=== PATIENT | male | born 1995 | race Two or more races ===

== ENCOUNTER 2016-08-30 08:14 | Emergency (ER) | payer MEDICAID ==
[~2016-08-30] VITALS: Ht 167.6 cm; Wt 90.7 kg
[~2016-08-30 08:14] MED LIST: ADVAIR HFA 115-12 GM INH; ADVAIR HFA 230-12 GM INH; AUGMENTIN 875-1 EAC1 ORAL; DILAUDID4 MG ORAL; DIPHENHYDR IVP; DUONEB 0.5-3(2.53 ML HHN; FOLIC ACID1 MG ORAL; GABAPENTIN800 MG ORAL; HEPARIN SO5000 UNIT2 SUBQ; HYDREA500 MG PO; HYDROMORPHONE HC4 M1 PO; IBUPROFEN600 MG ORAL; LORAZEPAM2 MG/1 M1 IVP; OXYCODONE HCL10 MG ORAL; OXYCONTIN20 MG ORAL; POLYETHYLENE GL17 GM ORAL; PROMETH-CODEIN 65 ML PO; VANCOMYCIN1 GM/2502 IVPB; VITAMIN D1000 UNI1 ORAL; XOPENEX1.25 MG/3 HHN; ZOFRAN 4 MG4 MG/2 ML IV; ZOLPIDEM TARTRAT5 MG ORAL
[2016-08-30 08:15] VITALS: BP 140/80
[2016-08-30 10:00] VITALS: BP 135/79
--- NOTE | 2016-09-03 16:16 | Emergency Room Report ---
History of Present Illness General Chief Complaint: Pain Source: Patient Present Illness HPI Patient presents with complaints of bilateral knee pain He states that his sickle cell crisis usually presents like this Patient seen by a Hemoccult she has pain management However he was unable to fill his medication Denies any chest pain or shortness of breath denies any back pain Had some mild diffuse myalgia Denies any photophobia or fevers denies any vomiting or diarrhea pain is 8/10 as noted above Allergies: Coded Allergies: CEFTRIAXONE (Verified Allergy, Unknown, 04/20/16) Uncoded Allergies: CONTRAST (Adverse Reaction, Severe, Rash, 06/23/16) RADIOCONTRAST - RASH, ITCHING Patient History Past Medical History: see triage record Pertinent Family History: none Reviewed Nursing Documentation: PMH: Agreed, PSxH: Agreed Nursing Documentation-PMH Hx Asthma: Yes Hx Cancer: No Hx Gastrointestinal Problems: Yes Review of Systems All Other Systems: negative except mentioned in HPI Physical Exam Vital Signs Date Time Temp Pulse Resp B/P Pulse Ox O2 Delivery O2 Flow Rate FiO2 08/30/16 08:09 99.5 69 16 148/78 98 Room Air Sp02 EP Interpretation: reviewed, normal General Appearance: no apparent distress Head: normocephalic, atraumatic Eyes: bilateral eye EOMI, bilateral eye PERRL ENT: hearing 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, normal pharynx, TMs + canals normal, uvula midline Neck: full range of motion, supple, no meningismus, no bony tend Respiratory: lungs clear, normal breath sounds, no rhonchi, no respiratory distress, no retraction, no accessory muscle use Cardiovascular #1: normal peripheral pulses, regular rate, rhythm, no edema, no gallop, no JVD, no murmur Gastrointestinal: normal bowel sounds, non tender, soft, no mass, no organomegaly, non-distended, no guarding, no hernia, no pulsatile mass, no rebound Genitourinary: no CVA tenderness Musculoskeletal: normal inspection 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, responsive, bulb weeder III-XII nml as tested, motor strength/ tone normal, sensory intact Psychiatric: mood/affect normal Skin: normal color, no rash, warm/dry, palpation normal Lymphatic: normal inspection, no adenopathy Medical Decision Making Diagnostic Impression: Primary Impression: Sickle cell disease ER Course Patient has had previous sickle cell crisis at this time however he states that he recently had IV fluids and pain medication He feels that if he was able to take his medications he would be better He has close followup with his Hemoccult just Therefore at this time further intensive workup was aborted and the patient was given IM injection of pain medication Did significantly better and able to have close outpatient followup Last Vital Signs Date Time Temp Pulse Resp B/P Pulse Ox O2 Delivery O2 Flow Rate FiO2 08/30/16 10:00 98.2 90 16 135/79 100 Room Air Status: improved Disposition: HOME, SELF-CARE Condition: Improved Referrals: DAVID TAI (PCP) Patient Instructions: Sickle Cell Anemia, Adult Additional Instructions: Patient is provided with the discharge instructions notified to follow up with primary doctor in the next 2-3 days otherwise return to the er with any worsening symptoms. BERNIE VIRGEN D.O. Sep 03, 2016 16:16
== END 2016-08-30 10:00 | disposition home or self-care (01) ==
LOC: EDBD 08:14 → EMR 08:36
DX: D57.1 Sickle-cell disease without crisis (principal); M25.561 Pain in right knee; Z87.19 Personal history of other diseases of the digestive system; Z87.09 Personal history of other diseases of the respiratory system; Z91.041 Radiographic dye allergy status
CPT/HCPCS: 99283; J1170

== ENCOUNTER 2017-01-06 15:19 | Inpatient (IN) | payer MEDICAID ==
[~2017-01-06] VITALS: Ht 167.6 cm; Wt 109.3 kg
[2017-01-06] MEDS ORDERED: DiphenhydrAMINE 50mg/ml Inj IVP ONE ×3 (16:00→18:15)
[2017-01-06] MEDS ORDERED: HYDROmorphone 1mg/ml Carpuject IVP ONE ×2 (16:00→17:45)
[2017-01-06 16:25] VITALS: BP 122/64
[2017-01-06 16:38] LABS: MEAN CORPUSCULAR HEMOGLOBIN 26.7 PG (27.0-31.0); MEAN CORPUSCULAR VOLUME 79 FL (80-99); MEAN PLATELET VOLUME 6.5 FL (6.5-10.1); PLATELET COUNT 354 K/UL (150-450); RED BLOOD COUNT 3.79 M/UL (4.70-6.10); RED CELL DISTRIBUTION WIDTH 17.3 % (11.6-14.8)
--- NOTE | 2017-01-06 16:45 | Diagnostic Imaging Report ---
Indication: Chest Technique: One view of the chest Comparison: 05/30/2016 Findings: Previously demonstrated PICC is no longer present. Left hemidiaphragm is elevated. The heart is upper limits of normal in size. There is some crowding of vascular markings in the left perihilar and infrahilar region. No definite acute infiltrates or effusions. The bones are unremarkable. Impression: No definite acute process
[2017-01-06 16:50] LABS: TROPONIN I < 0.30 ng/mL (<=0.30)
[2017-01-06 16:52] LABS: INR 1.1 (0.9-1.1); PROTHROMBIN TIME 11.2 SEC (9.30-11.50)
[2017-01-06 16:53] LABS: WHITE BLOOD COUNT 24.1 K/UL (4.8-10.8)
[2017-01-06 16:54] LABS: ALANINE AMINOTRANSFERASE 48 U/L (3-41); ALBUMIN/GLOBULIN RATIO 1.4 (1.0-2.7); ANION GAP 18 (5-15); ASPARTATE AMINO TRANSFERASE 55 U/L (5-40); CALCIUM 9.8 mg/dL (8.6-10.2); CARBON DIOXIDE 26 mEQ/L (20-30); CHLORIDE 91 mEQ/L (98-107); CREATININE 0.6 mg/dL (0.7-1.2); GLOMERULAR FILTRATION RATE > 60 mL/min (>60); HEMOLYSIS 59; POTASSIUM 4.9 mEQ/L (3.4-4.9); SODIUM 135 mEQ/L (135-145); TOTAL PROTEIN 8.2 g/dL (6.6-8.7)
[2017-01-06 17:04] LABS: CKMB < 1.5 ng/mL (< 6.7)
[2017-01-06 17:15] LABS: BILIRUBIN,DIRECT 0.8 mg/dL (0.1-0.3)
[2017-01-06] MEDS ORDERED: Heparin 25,000u/D5W 500ml 500 ML IV SCH (17:30)
[2017-01-06] MEDS ORDERED: Vancomycin 1.5gm/D5W 300ml 325 ML IVPB ONE (17:30)
[2017-01-06] MEDS ORDERED: PredniSONE 20mg tab ORAL ONE (17:30)
[2017-01-06 17:33] LABS: BASOPHILS % (MANUAL) 1 % (0-2); EOSINOPHILS % (MANUAL) 2 % (0-3); LYMPHOCYTES % (MANUAL) 11 % (20-45); NEUTROPHILS % (MANUAL) 80 % (45-75); NUCLEATED RED BLOOD CELLS 8 /100 WBC; TOTAL CELLS COUNTED 100
[2017-01-06 17:34] LABS: ANISOCYTOSIS 2+; BAND NEUTROPHILS % (MANUAL) 0 % (0-8); HYPOCHROMASIA 2+; PLATELET ESTIMATE ADEQUATE; PLATELET MORPHOLOGY NORMAL
[2017-01-06 17:35] LABS: TARGET CELLS 2+
[2017-01-06] MEDS ORDERED: HYDROmorphone 4mg tab ORAL PRN (17:45)
[2017-01-06] MEDS ORDERED: Mylanta II UD 30ml ORAL PRN ×2 (17:45)
[2017-01-06] MEDS ORDERED: Morphine Sulfate 4mg/ml Inj IVP PRN (17:45)
[2017-01-06] MEDS ORDERED: Zolpidem 5mg tab ORAL PRN ×2 (17:45)
[2017-01-06] MEDS ORDERED: LORazepam Inj 2mg/ml 1ml IV PRN ×2 (17:45)
[2017-01-06] MEDS ORDERED: Miralax 17gm pkt ORAL PRN ×2 (17:45)
[2017-01-06] MEDS ORDERED: Morphine Sulfate 2mg/ml Inj IVP PRN (17:45)
[2017-01-06 17:53] LABS: RETICULOCYTE COUNT 10.6 % (0.0-2.0)
[2017-01-06 17:54] LABS: APPEARANCE,URINE CLEAR; KETONES,URINE NEGATIVE (NEGATIVE); LEUKOCYTE ESTERASE ,URINE 1+ (NEGATIVE); NITRITE,URINE NEGATIVE (NEGATIVE); PH,URINE 6.5 (4.5-8.0); PROTEIN,URINE 1+ (NEGATIVE); UROBILINOGEN,URINE 1 MG/DL (0.0-1.0)
[2017-01-06 18:03] LABS: RBC,URINE 0-2 /HPF (0 - 0)
[2017-01-06 18:04] LABS: AMORPHOUS SEDIMENT,UR FEW /LPF; BACTERIA,URINE FEW /HPF; WBC,URINE 0-2 /HPF (0 - 0)
--- NOTE | 2017-01-06 18:14 | Emergency Room Report ---
History of Present Illness General Chief Complaint: General Complaint Source: Patient, Medical Record Present Illness HPI 21-year-old male presents ED complaining of chest pain since yesterday. Pain is sharp, across the entire chest, 10 out of 10, nonradiating. No pain with deep breaths. Denies fevers or chills. Denies cough. Patient notes history of sickle cell disease. States he has been admitted in the past for acute chest syndrome. Dr Davenport asked that patient come to ER for further evaluation. No other aggravating or relieving factors. Denies any other associated symptom Allergies: Coded Allergies: CEFTRIAXONE (Verified Allergy, Unknown, 04/20/16) Uncoded Allergies: CONTRAST (Adverse Reaction, Severe, Rash, 06/23/16) RADIOCONTRAST - RASH, ITCHING Patient History Past Medical History: asthma, other - sickle cell Pertinent Family History: none Social History: Denies: alcohol use, drug use, smoking Immunizations: UTD Reviewed Nursing Documentation: PMH: Agreed, PSxH: Agreed Nursing Documentation-PMH Past Medical History: No History, Except For Hx Asthma: Yes Hx Cancer: No Hx Gastrointestinal Problems: Yes Review of Systems All Other Systems: negative except mentioned in HPI Physical Exam Vital Signs Date Time Temp Pulse Resp B/P Pulse Ox O2 Delivery O2 Flow Rate FiO2 01/06/17 15:29 99.7 103 16 111/71 95 Room Air Sp02 EP Interpretation: reviewed, normal General Appearance: no apparent distress, alert, GCS 15, non-toxic, obese Head: normocephalic, atraumatic Eyes: bilateral eye PERRL, bilateral eye normal inspection ENT: hearing 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, normal pharynx, no angioedema, normal voice Neck: full range of motion, supple/symm/no masses Respiratory: chest non-tender, lungs clear, normal breath sounds, speaking full sentences Cardiovascular #1: regular rate, rhythm, no edema Cardiovascular #2: 2+ carotid (R), 2+ carotid (L), 2+ radial (R), 2+ radial (L) , 2+ dorsalis pedis (R), 2+ dorsalis pedis (L) Gastrointestinal: normal bowel sounds, non tender, soft, non-distended, no guarding, no rebound Rectal: deferred Genitourinary: normal inspection, no CVA tenderness Musculoskeletal: back normal, gait/station normal, normal range of motion, non- tender Neurologic: alert, oriented x3, responsive, motor strength/tone normal, sensory intact, speech normal Psychiatric: judgement/insight normal, memory normal, mood/affect normal, no suicidal/homicidal ideation Reflexes: 3+ bicep (R), 3+ bicep (L), 3+ tricep (R), 3+ tricep (L), 3+ knee (R) , 3+ knee (L) Skin: normal color, no rash, warm/dry, well hydrated Lymphatic: no adenopathy Medical Decision Making Diagnostic Impression: Primary Impression: Acute chest syndrome Additional Impression: Sickle cell disease Qualified Codes: D57.00 - Hb-SS disease with crisis, unspecified ER Course Hospital Course 21-year-old male presents to ED with chest pain. History of sickle cell Differential diagnoses include: NH/unstable angina, sickle cell crisis, sepsis, UTI, pneumonia Clinical course Patient placed on stretcher. 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 After initial history and physical I ordered labs, EKG, chest x-ray, pain medications labs reviewed- WBC > 22, Hb/Hct stable, electrolyes ok, trop negative EKG - NSR, no acute changes Chest x-ray- no acute process Doppler ultrasound of bilateral LE is negative for DVT VQ scan unavailable at this time of day CTA chest ordered. However patient has contrast allergy. Per radiology protocol patient will require 19 hours of premedication before receiving CTA Patient given prednisone in ED. Given heparin here. Will be treated as presumed PE until CTA is performed Abx given. On reassessment pain is controlled Dr. Davenport is familar with this patient; asked that we admit to Dr Caicedo Case discussed with Dr. Caicedo and he agreed to accept the patient to his service for further care and support I. I feel this is a highly complex case requiring extensive working including EKG/Rhythm strip, Xray/CT/US, Blood/urine lab work, repeat exams while in ED, and administration of strong opiates/narcotics for pain control, admission to hospital or close patient follow up. Diagnosis - acute chest syndrome, sickle cell disease admitted to telemetry in serious condition Labs Test 01/06/17 16:00 01/06/17 17:33 White Blood Count 24.1 K/UL (4.8-10.8) Red Blood Count 3.79 M/UL (4.70-6.10) Hemoglobin 10.1 G/DL (14.2-18.0) Hematocrit 29.8 % (42.0-52.0) Mean Corpuscular Volume 79 FL (80-99) Mean Corpuscular Hemoglobin 26.7 PG (27.0-31.0) Mean Corpuscular Hemoglobin Concent 34.0 G/DL (32.0-36.0) Red Cell Distribution Width 17.3 % (11.6-14.8) Platelet Count 354 K/UL (150-450) Mean Platelet Volume 6.5 FL (6.5-10.1) Neutrophils (%) (Auto) % (45.0-75.0) Lymphocytes (%) (Auto) % (20.0-45.0) Monocytes (%) (Auto) % (1.0-10.0) Eosinophils (%) (Auto) % (0.0-3.0) Basophils (%) (Auto) % (0.0-2.0) Differential Total Cells Counted 100 Neutrophils % (Manual) 80 % (45-75) Lymphocytes % (Manual) 11 % (20-45) Monocytes % (Manual) 6 % (1-10) Eosinophils % (Manual) 2 % (0-3) Basophils % (Manual) 1 % (0-2) Band Neutrophils 0 % (0-8) Nucleated Red Blood Cells 8 /100 WBC Platelet Estimate Adequate Platelet Morphology Normal Hypochromasia 2+ Anisocytosis 2+ Target Cells 2+ Reticulocyte Count 10.6 % (0.0-2.0) Prothrombin Time 11.2 SEC (9.30-11.50) Prothromb Time International Ratio 1.1 (0.9-1.1) Activated Partial Thromboplast Time 30 SEC (23-33) Sodium Level 135 mEQ/L (135-145) Potassium Level 4.9 mEQ/L (3.4-4.9) Chloride Level 91 mEQ/L (98-107) Carbon Dioxide Level 26 mEQ/L (20-30) Anion Gap 18 (5-15) Blood Urea Nitrogen 7 mg/dL (7-23) Creatinine 0.6 mg/dL (0.7-1.2) Estimat Glomerular Filtration Rate > 60 mL/min (>60) Glucose Level 123 mg/dL (74-106) Lactic Acid Level 1.90 mmol/L (0.66-2.22) Calcium Level 9.8 mg/dL (8.6-10.2) Total Bilirubin 2.8 mg/dL (0.0-1.2) Direct Bilirubin 0.8 mg/dL (0.1-0.3) Aspartate Amino Transf (AST/SGOT) 55 U/L (5-40) Alanine Aminotransferase (ALT/SGPT) 48 U/L (3-41) Alkaline Phosphatase 110 U/L (40-129) Total Creatine Kinase 39 U/L (38-174) Creatine Kinase MB < 1.5 ng/mL (< 6.7) Creatine Kinase MB Relative Index Troponin I < 0.30 ng/mL (<=0.30) Total Protein 8.2 g/dL (6.6-8.7) Albumin 4.8 g/dL (3.5-5.2) Globulin 3.4 g/dL Albumin/Globulin Ratio 1.4 (1.0-2.7) Urine Color Yellow Urine Appearance Clear Urine pH 6.5 (4.5-8.0) Urine Specific [place] 1.005 (1.005-1.035) Urine Protein 1+ (NEGATIVE) Urine Glucose (UA) Negative (NEGATIVE) Urine Ketones Negative (NEGATIVE) Urine Occult Blood Negative (NEGATIVE) Urine Nitrite Negative (NEGATIVE) Urine Bilirubin Negative (NEGATIVE) Urine Urobilinogen 1 MG/DL (0.0-1.0) Urine Leukocyte Esterase 1+ (NEGATIVE) Urine RBC 0-2 /HPF (0 - 0) Urine WBC 0-2 /HPF (0 - 0) Urine Squamous Epithelial Cells None /LPF (NONE/OCC) Urine Amorphous Sediment Few /LPF (NONE) Urine Bacteria Few /HPF (NONE) Urine Opiates Screen Positive (NEGATIVE) Urine Barbiturates Screen Negative (NEGATIVE) Phencyclidine (PCP) Screen Negative (NEGATIVE) Urine Amphetamines Screen Negative (NEGATIVE) Urine Benzodiazepines Screen Negative (NEGATIVE) Urine Cocaine Screen Negative (NEGATIVE) Urine Marijuana (THC) Screen Negative (NEGATIVE) EKG Diagnostic Results Rate: normal Rhythm: NSR ST Segments: no acute changes ASA given to the pt in ED: No Rhythm Strip Diag. Results EP Interpretation: yes Rhythm: NSR, no PVC's, no ectopy Chest X-Ray Diagnostic Results EP Interpretation: No Findings: no pneumothorax, no acute cardiopulmonary disease, other - increased vascular markings in L perihilar and infrahilar areas Number of Views: 1 CT/MRI/US Diagnostic Results CT/MRI/US Diagnostic Results : Imaging Test Ordered: Doppler US Impression negative for dvt in bilateral LEs Last Vital Signs Date Time Temp Pulse Resp B/P Pulse Ox O2 Delivery O2 Flow Rate FiO2 01/06/17 17:03 99.7 01/06/17 16:25 89 17 122/64 95 Room Air Status: improved Disposition: ADMITTED INPATIENT Condition: Serious Referrals: DAVID DAVENPORT (PCP) NALLELY ABDI M.D. Jan 06, 2017 18:14
[2017-01-06] MEDS ORDERED: Heparin 5000 units/ml inj IV ONE (18:15)
[2017-01-06 18:16] VITALS: BP 124/56
[2017-01-06 18:55] VITALS: BP 106/62
[2017-01-06 20:00] VITALS: BP 117/52
[2017-01-06] MEDS ORDERED: Heparin 5000 units/ml inj SUBQ SCH (21:00)
[2017-01-06] MEDS: Heparin 5000 units/ml inj SUBQ SCH (21:36)
[2017-01-06] MEDS: oxyCONTIN 20mg tab ORAL SCH (21:41)
[2017-01-07] VITALS: BP 119/69
[2017-01-07 04:00] VITALS: BP 124/59
[2017-01-07 07:07] LABS: MEAN CORPUSCULAR HEMOGLOBIN 24.8 PG (27.0-31.0); MEAN CORPUSCULAR HGB CONC 32.1 G/DL (32.0-36.0); MEAN CORPUSCULAR VOLUME 77 FL (80-99); PLATELET COUNT 352 K/UL (150-450); RED CELL DISTRIBUTION WIDTH 17.1 % (11.6-14.8); WHITE BLOOD COUNT 18.5 K/UL (4.8-10.8)
[2017-01-07 07:31] LABS: ALANINE AMINOTRANSFERASE 61 U/L (3-41); ALBUMIN/GLOBULIN RATIO 1.1 (1.0-2.7); ANION GAP 15 (5-15); ASPARTATE AMINO TRANSFERASE 45 U/L (5-40); CALCIUM 9.3 mg/dL (8.6-10.2); CARBON DIOXIDE 25 mEQ/L (20-30); CHLORIDE 97 mEQ/L (98-107); CREATININE 0.7 mg/dL (0.7-1.2); GLOMERULAR FILTRATION RATE > 60 mL/min (>60); HEMOLYSIS 2; LACTATE DEHYDROGENASE 236 U/L (135-230); POTASSIUM 4.2 mEQ/L (3.4-4.9); SODIUM 137 mEQ/L (135-145)
[2017-01-07 07:33] LABS: THYROID STIMULATING HORMONE 0.299 uIU/mL (0.300-4.500)
[2017-01-07 07:53] LABS: BILIRUBIN,DIRECT 0.4 mg/dL (0.1-0.3)
[2017-01-07 08:00] VITALS: BP 115/65
[2017-01-07] MEDS: oxyCONTIN 20mg tab ORAL SCH ×2 (08:41→21:23)
[2017-01-07] MEDS: Heparin 5000 units/ml inj SUBQ SCH ×2 (08:44→21:25)
[2017-01-07 08:54] LABS: BAND NEUTROPHILS % (MANUAL) 2 % (0-8); BASOPHILS % (MANUAL) 0 % (0-2); EOSINOPHILS % (MANUAL) 0 % (0-3); LYMPHOCYTES % (MANUAL) 18 % (20-45); NEUTROPHILS % (MANUAL) 71 % (45-75); PLATELET ESTIMATE ADEQUATE; TOTAL CELLS COUNTED 100
[2017-01-07 08:55] LABS: TARGET CELLS 3+
[2017-01-07 08:56] LABS: ANISOCYTOSIS 2+; OVALOCYTES 2+; PLATELET MORPHOLOGY NORMAL; POIKILOCYTOSIS 3+
[2017-01-07] MEDS ORDERED: Hydroxyurea 500mg cap ORAL SCH (09:00)
--- NOTE | 2017-01-07 09:04 | General Progress Note ---
Assessment/Plan Assessment/Plan (1) Sickle Cell disease (2) Sickle Cell Crisis (3) Intractable pain Pt will be continued on Oxycntin and Dilaudid Pt was d/w Dr. Tucker and he concurred. Thank you for the courtesy of this consultation. Subjective Date patient seen: Jan 07, 2017 Time patient seen: 08:00 - am Constitutional: Reports: weakness, Denies: chills, diaphoresis, fever, malaise HEENT: Denies: blurred vision, double vision, ear discharge, ear pain, eye pain , mouth pain, mouth swelling, nose congestion, nose pain, tearing, throat pain, throat swelling Cardiovascular: Reports: chest pain, Denies: edema, irregular heart rate, lightheadedness, palpitations, syncope Respiratory: Reports: shortness of breath, Denies: SOB at rest, SOB with excertion, cough, orthopnea, sputum, stridor, wheezing Gastrointestinal/Abdominal: Denies: abdomen distended, abdominal pain, black stools, blood in stool, constipated, diarrhea, difficulty swallowing, nausea, poor appetite, poor fluid intake, rectal bleeding, tarry stools, vomiting Genitourinary: Denies: burning, discharge, flank pain, frequency, hematuria, incontinence, pain, urgency Neurologic/Psychiatric: Denies: anxiety, depressed, emotional problems, headache, numbness, paresthesia, pre-existing deficit, seizure, tingling, tremors, weakness Endocrine: Denies: excessive sweating, flushing, increased hunger, increased thirst, increased urine, intolerance to cold, intolerance to heat, unexplained weight gain, unexplained weight loss Hematologic/Lymphatic: Denies: easy bleeding, easy bruising Allergies: Coded Allergies: CEFTRIAXONE (Verified Allergy, Unknown, 04/20/16) Uncoded Allergies: CONTRAST (Adverse Reaction, Severe, Rash, 06/23/16) RADIOCONTRAST - RASH, ITCHING Subjective Patient is a known patient from prior admission admitted under the care of Dr. Caicedo for sickle cell crisis. He sees Dr. Davenport as out pt. Pt was started on Oxycontin 20mg BID, Dilaudid 2-3mg IVP Q4H for Mod to severe pain and dilaudid 4mg tabs Q4H for severe breakthrough pain, Pain as per pt has been tolerated on current regimen. Objective Last 24 Hour Vital Signs Date Time Temp Pulse Resp B/P Pulse Ox O2 Delivery O2 Flow Rate FiO2 01/07/17 04:00 67 01/07/17 04:00 98.6 93 18 124/59 Nasal Cannula 2.0 01/07/17 00:00 68 01/07/17 00:00 99.3 58 19 119/69 Room Air 01/06/17 20:30 99.9 01/06/17 20:00 101.7 79 19 117/52 95 Room Air 01/06/17 20:00 89 01/06/17 19:46 101.7 01/06/17 18:55 102.4 106 17 106/62 95 Room Air 01/06/17 18:26 99.1 105 17 124/56 95 Room Air 01/06/17 18:24 99.1 01/06/17 18:16 99.1 105 17 124/56 95 Room Air 01/06/17 17:03 99.7 01/06/17 16:25 99.7 89 17 122/64 95 Room Air 01/06/17 15:29 99.7 103 16 111/71 95 Room Air Intake and Output 01/06/17 01/07/17 19:00 07:00 Intake Total 120 ml 775 ml Balance 120 ml 775 ml Intake Oral 120 ml 100 ml IV Total 675 ml # Voids 2 # Bowel Movements 2 Laboratory Tests 01/06/17 16:00: White Blood Count 24.1*H, Red Blood Count 3.79L, Hemoglobin 10.1L, Hematocrit 29.8L, Mean Corpuscular Volume 79L, Mean Corpuscular Hemoglobin 26.7L, Mean Corpuscular Hemoglobin Concent 34.0, Red Cell Distribution Width 17.3H, Platelet Count 354, Mean Platelet Volume 6.5, Neutrophils (%) (Auto) , Lymphocytes (%) (Auto) , Monocytes (%) (Auto) , Eosinophils (%) (Auto) , Basophils (%) (Auto) , Differential Total Cells Counted 100, Neutrophils % ( Manual) 80H, Lymphocytes % (Manual) 11L, Monocytes % (Manual) 6, Eosinophils % ( Manual) 2, Basophils % (Manual) 1, Band Neutrophils 0, Nucleated Red Blood Cells 8, Platelet Estimate Adequate, Platelet Morphology Normal, Hypochromasia 2 +, Anisocytosis 2+, Target Cells 2+, Reticulocyte Count 10.6H, Prothrombin Time 11.2, Prothromb Time International Ratio 1.1, Activated Partial Thromboplast Time 30, Sodium Level 135, Potassium Level 4.9, Chloride Level 91L, Carbon Dioxide Level 26, Anion Gap 18H, Blood Urea Nitrogen 7, Creatinine 0.6L, Estimat Glomerular Filtration Rate > 60, Glucose Level 123H, Lactic Acid Level 1.90, Calcium Level 9.8, Total Bilirubin 2.8H, Direct Bilirubin 0.8H, Aspartate Amino Transf (AST/SGOT) 55H, Alanine Aminotransferase (ALT/SGPT) 48H, Alkaline Phosphatase 110, Lactate Dehydrogenase [Pending], Total Creatine Kinase 39, Creatine Kinase MB < 1.5, Creatine Kinase MB Relative Index , Troponin I < 0.30 , Total Protein 8.2, Albumin 4.8, Globulin 3.4, Albumin/Globulin Ratio 1.4 01/06/17 17:33: Urine Color Yellow, Urine Appearance Clear, Urine pH 6.5, Urine Specific [place] 1.005, Urine Protein 1+H, Urine Glucose (UA) Negative, Urine Ketones Negative, Urine Occult Blood Negative, Urine Nitrite Negative, Urine Bilirubin Negative, Urine Urobilinogen 1H, Urine Leukocyte Esterase 1+H, Urine RBC 0-2H, Urine WBC 0-2, Urine Squamous Epithelial Cells None, Urine Amorphous Sediment FewH, Urine Bacteria Few, Urine Opiates Screen PositiveH, Urine Barbiturates Screen Negative, Phencyclidine (PCP) Screen Negative, Urine Amphetamines Screen Negative, Urine Benzodiazepines Screen Negative, Urine Cocaine Screen Negative, Urine Marijuana (THC) Screen Negative 01/07/17 05:55: White Blood Count 18.5H, Red Blood Count 3.50L, Hemoglobin 8.7L, Hematocrit 27.0L, Mean Corpuscular Volume 77L, Mean Corpuscular Hemoglobin 24.8L, Mean Corpuscular Hemoglobin Concent 32.1, Red Cell Distribution Width 17.1H, Platelet Count 352, Mean Platelet Volume 8.0, Neutrophils (%) (Auto) , Lymphocytes (%) (Auto) , Monocytes (%) (Auto) , Eosinophils (%) (Auto) , Basophils (%) (Auto) , Differential Total Cells Counted 100, Neutrophils % ( Manual) 71, Lymphocytes % (Manual) 18L, Monocytes % (Manual) 9, Eosinophils % ( Manual) 0, Basophils % (Manual) 0, Band Neutrophils 2, Platelet Estimate Adequate, Platelet Morphology Normal, Anisocytosis 2+, Target Cells 3+, Sodium Level 137, Potassium Level 4.2, Chloride Level 97L, Carbon Dioxide Level 25, Anion Gap 15, Blood Urea Nitrogen 8, Creatinine 0.7, Estimat Glomerular Filtration Rate > 60, Glucose Level 155H, Calcium Level 9.3, Total Bilirubin 1.4H, Direct Bilirubin 0.4H, Aspartate Amino Transf (AST/SGOT) 45H, Alanine Aminotransferase (ALT/SGPT) 61H, Alkaline Phosphatase 118, Lactate Dehydrogenase 236H, Total Protein 8.0, Albumin 4.3, Globulin 3.7, Albumin/ Globulin Ratio 1.1, Poikilocytosis 3+, Ovalocytes 2+, Thyroid Stimulating Hormone (TSH) 0.299L Height (Feet): 5 Height (Inches): 6.00 Weight (Pounds): 241 General Appearance: alert EENT: PERRL/EOMI, normal ENT inspection Neck: non-tender, normal alignment Cardiovascular: normal rate, regular rhythm Respiratory/Chest: decreased breath sounds Abdomen: soft, no organomegaly Edema: no edema noted Arm (L), no edema noted Arm (R), no edema noted Leg (L), no edema noted Leg (R), no edema noted Pedal (L), no edema noted Pedal (R), no edema noted Generalized Neurologic: alert, oriented x 3 Skin: warm/dry LETICIA CASTLE. PChanell Jan 07, 2017 09:04
[2017-01-07 12:08] VITALS: BP 119/70
--- NOTE | 2017-01-07 12:41 | History and Physical ---
History of Present Illness General Date patient seen: Jan 07, 2017 Reason for Hospitalization: General Complaint Present Illness HPI 21-year-old male with hx of sickle cell disease presented to ED complaining of chest pain since yesterday. Pain is sharp. Denies cough. Patient notes history of sickle cell disease. No other aggravating or relieving factors. Denies any other associated symptom Allergies: Coded Allergies: CEFTRIAXONE (Verified Allergy, Unknown, 04/20/16) Uncoded Allergies: CONTRAST (Adverse Reaction, Severe, Rash, 06/23/16) RADIOCONTRAST - RASH, ITCHING Medication History Scheduled Cholecalciferol (Vitamin D3)* (Vitamin D*), 1,000 UNIT ORAL DAILY, (Reported) Fluticasone/Salmeterol (Advair Hfa 115-21 Mcg Inhaler), 2 PUFFS INH EVERY 12 HOURS, (Reported) Folic Acid* (Folic Acid*), 1 MG ORAL DAILY, (Reported) Hydroxyurea* (Hydrea*), 3,000 MG PO DAILY, (Reported) Oxycodone Hcl Er* (Oxycontin*), 20 MG ORAL EVERY 12 HOURS, (Reported) Scheduled PRN Hydromorphone Hcl (Hydromorphone Hcl), 4 MG PO Q4HR PRN for Severe Breakthru Pain (>7), (Reported) Ibuprofen* (Motrin*), 600 MG ORAL Q8H PRN for For Pain Discontinued Medications Amoxicillin/Potassium Clav 875-125* (Augmentin 875-125 Tablet*), 1 TAB ORAL EVERY 12 HOURS, (Reported) Discontinued Reason: Therapy completed Diphenhydramine In 0.9 % Nacl (Diphenhydramine-Ns 50 Mg/50 Ml), 25 MG IVP Q4HR, (Reported) Discontinued Reason: Therapy completed Gabapentin* (Gabapentin*), 800 MG ORAL BID, (Reported) Discontinued Reason: Therapy completed Heparin Sod (Porcine) (Heparin Sodium*), 5,000 UNITS SUBQ EVERY 12 HOURS, ( Reported) Discontinued Reason: Therapy completed Hydromorphone HCl (Dilaudid), 4 MG ORAL Q4H, (Reported) Discontinued Reason: Therapy completed Ipratropium/Albuterol Sulfate (DuoNeb 0.5-3(2.5)mg/3ml), 3 ML HHN Q4HR PRN for Shortness of Breath, (Reported) Discontinued Reason: Therapy completed Levalbuterol Hcl (Xopenex*), 1.25 MG HHN Q6H, (Reported) Discontinued Reason: Therapy completed Lorazepam* (Lorazepam*), 0.5 MG IVP Q4H PRN for For Anxiety, (Reported) Discontinued Reason: Therapy completed Ondansetron* (Zofran*), 4 MG IV Q6H PRN for Nausea & Vomiting, (Reported) Discontinued Reason: Therapy completed Oxycodone Hcl* (Oxycodone Hcl*), 10 MG ORAL Q12HR, (Reported) Discontinued Reason: Therapy completed Polyethylene Glycol 3350* (Polyethylene Glycol 3350*), 17 GM ORAL BEDTIME PRN for Constipation, (Reported) Discontinued Reason: Therapy completed Promethazine HCl/Codeine (Prometh-Codein 6.25-10 mg/5 ml), 5 ML PO Q4HR PRN for For Cough, (Reported) Discontinued Reason: Therapy completed Vancomycin Hcl/D5w (Vancomycin-D5w 1 G/250 Ml), 1.25 GM IVPB Q8HR, (Reported) Discontinued Reason: Therapy completed Zolpidem Tartrate* (Zolpidem Tartrate*), 5 MG ORAL BEDTIME PRN for Insomnia, ( Reported) Discontinued Reason: Therapy completed Patient History Healthcare decision maker Resuscitation status Full Code Advanced Directive on File No Review of Systems Cardiovascular: Reports: chest pain Physical Exam General Appearance: WD/WN, no apparent distress Lines, tubes and drains: peripheral, central line HEENT: normocephalic, atraumatic Neck: non-tender, normal alignment Respiratory/Chest: chest wall non-tender, lungs clear Cardiovascular/Chest: normal peripheral pulses, normal rate Abdomen: normal bowel sounds Genitourinary/Rectal: normal genital exam Extremities: normal range of motion Last 24 Hour Vital Signs Date Time Temp Pulse Resp B/P Pulse Ox O2 Delivery O2 Flow Rate FiO2 01/07/17 12:08 97.0 53 17 119/70 99 Room Air 01/07/17 08:00 96.8 58 16 115/65 97 Room Air 01/07/17 08:00 57 01/07/17 04:00 67 01/07/17 04:00 98.6 93 18 124/59 Nasal Cannula 2.0 01/07/17 00:00 68 01/07/17 00:00 99.3 58 19 119/69 Room Air 01/06/17 20:30 99.9 01/06/17 20:00 101.7 79 19 117/52 95 Room Air 01/06/17 20:00 89 01/06/17 19:46 101.7 01/06/17 18:55 102.4 106 17 106/62 95 Room Air 01/06/17 18:26 99.1 105 17 124/56 95 Room Air 01/06/17 18:24 99.1 01/06/17 18:16 99.1 105 17 124/56 95 Room Air 01/06/17 17:03 99.7 01/06/17 16:25 99.7 89 17 122/64 95 Room Air 01/06/17 15:29 99.7 103 16 111/71 95 Room Air Intake and Output 01/06/17 01/07/17 19:00 07:00 Intake Total 120 ml 775 ml Balance 120 ml 775 ml Intake Oral 120 ml 100 ml IV Total 675 ml # Voids 2 # Bowel Movements 2 Laboratory Tests Test 01/06/17 16:00 01/06/17 17:33 01/07/17 05:55 White Blood Count 24.1 K/UL (4.8-10.8) *H 18.5 K/UL (4.8-10.8) H Red Blood Count 3.79 M/UL (4.70-6.10) L 3.50 M/UL (4.70-6.10) L Hemoglobin 10.1 G/DL (14.2-18.0) L 8.7 G/DL (14.2-18.0) L Hematocrit 29.8 % (42.0-52.0) L 27.0 % (42.0-52.0) L Mean Corpuscular Volume 79 FL (80-99) L 77 FL (80-99) L Mean Corpuscular Hemoglobin 26.7 PG (27.0-31.0) L 24.8 PG (27.0-31.0) L Mean Corpuscular Hemoglobin Concent 34.0 G/DL (32.0-36.0) 32.1 G/DL (32.0-36.0) Red Cell Distribution Width 17.3 % (11.6-14.8) H 17.1 % (11.6-14.8) H Platelet Count 354 K/UL (150-450) 352 K/UL (150-450) Mean Platelet Volume 6.5 FL (6.5-10.1) 8.0 FL (6.5-10.1) Neutrophils (%) (Auto) % (45.0-75.0) % (45.0-75.0) Lymphocytes (%) (Auto) % (20.0-45.0) % (20.0-45.0) Monocytes (%) (Auto) % (1.0-10.0) % (1.0-10.0) Eosinophils (%) (Auto) % (0.0-3.0) % (0.0-3.0) Basophils (%) (Auto) % (0.0-2.0) % (0.0-2.0) Differential Total Cells Counted 100 100 Neutrophils % (Manual) 80 % (45-75) H 71 % (45-75) Lymphocytes % (Manual) 11 % (20-45) L 18 % (20-45) L Monocytes % (Manual) 6 % (1-10) 9 % (1-10) Eosinophils % (Manual) 2 % (0-3) 0 % (0-3) Basophils % (Manual) 1 % (0-2) 0 % (0-2) Band Neutrophils 0 % (0-8) 2 % (0-8) Nucleated Red Blood Cells 8 /100 WBC Platelet Estimate Adequate Adequate Platelet Morphology Normal Normal Hypochromasia 2+ Anisocytosis 2+ 2+ Target Cells 2+ 3+ Reticulocyte Count 10.6 % (0.0-2.0) H Prothrombin Time 11.2 SEC (9.30-11.50) Prothromb Time International Ratio 1.1 (0.9-1.1) Activated Partial Thromboplast Time 30 SEC (23-33) Sodium Level 135 mEQ/L (135-145) 137 mEQ/L (135-145) Potassium Level 4.9 mEQ/L (3.4-4.9) 4.2 mEQ/L (3.4-4.9) Chloride Level 91 mEQ/L (98-107) L 97 mEQ/L (98-107) L Carbon Dioxide Level 26 mEQ/L (20-30) 25 mEQ/L (20-30) Anion Gap 18 (5-15) H 15 (5-15) Blood Urea Nitrogen 7 mg/dL (7-23) 8 mg/dL (7-23) Creatinine 0.6 mg/dL (0.7-1.2) L 0.7 mg/dL (0.7-1.2) Estimat Glomerular Filtration Rate > 60 mL/min (>60) > 60 mL/min (>60) Glucose Level 123 mg/dL (74-106) H 155 mg/dL (74-106) H Lactic Acid Level 1.90 mmol/L (0.66-2.22) Calcium Level 9.8 mg/dL (8.6-10.2) 9.3 mg/dL (8.6-10.2) Total Bilirubin 2.8 mg/dL (0.0-1.2) H 1.4 mg/dL (0.0-1.2) H Direct Bilirubin 0.8 mg/dL (0.1-0.3) H 0.4 mg/dL (0.1-0.3) H Aspartate Amino Transf (AST/SGOT) 55 U/L (5-40) H 45 U/L (5-40) H Alanine Aminotransferase (ALT/SGPT) 48 U/L (3-41) H 61 U/L (3-41) H Alkaline Phosphatase 110 U/L (40-129) 118 U/L (40-129) Lactate Dehydrogenase Pending 236 U/L (135-230) H Total Creatine Kinase 39 U/L (38-174) Creatine Kinase MB < 1.5 ng/mL (< 6.7) Creatine Kinase MB Relative Index Troponin I < 0.30 ng/mL (<=0.30) Total Protein 8.2 g/dL (6.6-8.7) 8.0 g/dL (6.6-8.7) Albumin 4.8 g/dL (3.5-5.2) 4.3 g/dL (3.5-5.2) Globulin 3.4 g/dL 3.7 g/dL Albumin/Globulin Ratio 1.4 (1.0-2.7) 1.1 (1.0-2.7) Urine Color Yellow Urine Appearance Clear Urine pH 6.5 (4.5-8.0) Urine Specific Coulter 1.005 (1.005-1.035) Urine Protein 1+ (NEGATIVE) H Urine Glucose (UA) Negative (NEGATIVE) Urine Ketones Negative (NEGATIVE) Urine Occult Blood Negative (NEGATIVE) Urine Nitrite Negative (NEGATIVE) Urine Bilirubin Negative (NEGATIVE) Urine Urobilinogen 1 MG/DL (0.0-1.0) H Urine Leukocyte Esterase 1+ (NEGATIVE) H Urine RBC 0-2 /HPF (0 - 0) H Urine WBC 0-2 /HPF (0 - 0) Urine Squamous Epithelial Cells None /LPF (NONE/OCC) Urine Amorphous Sediment Few /LPF (NONE) H Urine Bacteria Few /HPF (NONE) Urine Opiates Screen Positive (NEGATIVE) H Urine Barbiturates Screen Negative (NEGATIVE) Phencyclidine (PCP) Screen Negative (NEGATIVE) Urine Amphetamines Screen Negative (NEGATIVE) Urine Benzodiazepines Screen Negative (NEGATIVE) Urine Cocaine Screen Negative (NEGATIVE) Urine Marijuana (THC) Screen Negative (NEGATIVE) Poikilocytosis 3+ Ovalocytes 2+ Thyroid Stimulating Hormone (TSH) 0.299 uIU/mL (0.300-4.500) Height (Feet): 5 Height (Inches): 6.00 Weight (Pounds): 241 Medications Current Medications Medications (Trade) Dose Ordered Sig/Arianne Route PRN Reason Start Time Stop Time Status Last Admin Dose Admin Acetaminophen (Tylenol) 650 mg Q4H PRN ORAL fever 01/06/17 17:45 02/05/17 17:44 01/06/17 18:47 Al Hydroxide/Mg Hydroxide (Mylanta II) 30 ml Q6H PRN ORAL dyspepsia 01/06/17 17:45 02/05/17 17:44 Albuterol/ Ipratropium (DuoNeb 0.5-3(2.5)mg/3ml) 3 ml Q6HRT HHN 01/07/17 13:00 01/12/17 12:59 Dextrose (Dextrose 50%) STAT PRN IV Hypoglycemia 01/06/17 17:45 02/05/17 17:44 Folic Acid (Folate) 1 mg DAILY ORAL 01/07/17 09:00 02/06/17 08:59 01/07/17 08:40 Heparin Sodium (Porcine) (Heparin 5000 units/ml) 5,000 units EVERY 12 HOURS SUBQ 01/06/17 21:00 02/05/17 20:59 01/07/17 08:44 Hydromorphone HCl (Dilaudid) 2 mg EVERY 3 HOURS PRN IV pain 4-6 01/06/17 17:45 01/13/17 17:44 Hydromorphone HCl (Dilaudid) 4 mg Q4HR PRN ORAL Severe Breakthru Pain (>7) 01/06/17 17:45 01/13/17 17:44 Hydromorphone HCl 3 mg 3 mg Q3H PRN IVP For Pain 7-10 01/06/17 17:45 01/13/17 17:44 01/07/17 12:12 Hydroxyurea (Hydrea) 3,000 mg DAILY ORAL 01/07/17 09:00 01/12/17 08:59 01/07/17 08:42 Lorazepam (Ativan 2mg/ml 1ml) 0.5 mg Q4H PRN IV For Anxiety 01/06/17 17:45 01/13/17 17:44 Ondansetron HCl (Zofran) 4 mg Q6H PRN IVP Nausea & Vomiting 01/06/17 17:45 02/05/17 17:44 Oxycodone HCl (OxyCONTIN) 20 mg EVERY 12 HOURS ORAL 01/06/17 21:00 01/13/17 20:59 01/06/17 21:41 Polyethylene Glycol (Miralax) 17 gm HSPRN PRN ORAL Constipation 01/06/17 17:45 02/05/17 17:44 Promethazine HCl/ Codeine (Phenergan with Codeine) 5 ml Q4H PRN ORAL For Cough 01/07/17 12:45 02/06/17 12:44 Sodium Chloride (0.45% NS 1000ml) 1,000 ml @ 75 mls/hr [id number] IV 01/06/17 20:00 02/05/17 19:59 01/07/17 08:57 Zolpidem Tartrate (Ambien) 5 mg HSPRN PRN ORAL Insomnia 01/06/17 17:45 02/05/17 17:44 Assessment/Plan Problem List: (1) ACS (acute coronary syndrome) ICD Codes: I24.9 - Acute ischemic heart disease, unspecified SNOMED: 048976250 (2) Sickle cell crisis ICD Codes: D57.00 - Hb-SS disease with crisis, unspecified SNOMED: 109854918 Assessment/Plan IV fluids v/q scan to rule out PE ( doubt) repeat BC IV antibiotics f/u daily [facility] MILIND KHAN Jan 07, 2017 12:41
[2017-01-07] MEDS ORDERED: Promethazine/Codeine 5ml UD ORAL PRN (12:45)
[2017-01-07] MEDS: DuoNeb 0.5-3(2.5)mg/3ml neb HHN SCH ×2 (13:00→19:00)
--- NOTE | 2017-01-07 15:38 | Diagnostic Imaging Report ---
APPROVED REPORT CPT Code: 43132 Present Symptoms Lower Extremity Edema: Shortness of breath BILATERAL: Imaging reveals a patent deep venous system bilaterally. There is no evidence of thrombus within the femoral, popliteal or tibial segments. The greater saphenous veins are also within normal limits. Doppler indicates normal spontaneous flow within these segments.
--- NOTE | 2017-01-07 15:57 | Diagnostic Imaging Report ---
Indication: Chest pain Technique: A ventilation/perfusion scan was performed. Ventilation was performed utilizing 42 mCi of Technetium 99m-DTPA. Perfusion was performed with 5.7 mCi of technetium 99m-MAA injected intravenously. Multiple side by side projections obtained. Findings: Ventilation is homogeneous. No defects are identified. Perfusion is homogeneous. No defects are identified. Impression: Normal VQ scan
[2017-01-07 16:00] VITALS: BP 116/68
[2017-01-07 20:14] VITALS: BP 102/41
[2017-01-08] VITALS: BP 103/60
[2017-01-08] MEDS: DuoNeb 0.5-3(2.5)mg/3ml neb HHN SCH ×4 (01:00→19:00)
[2017-01-08 04:00] VITALS: BP 108/54
[2017-01-08 07:47] VITALS: BP 107/53
[2017-01-08] MEDS: oxyCONTIN 20mg tab ORAL SCH ×2 (08:10→20:28)
[2017-01-08] MEDS: Heparin 5000 units/ml inj SUBQ SCH ×2 (08:15→20:40)
[2017-01-08 08:21] LABS: MEAN CORPUSCULAR HEMOGLOBIN 24.5 PG (27.0-31.0); MEAN CORPUSCULAR HGB CONC 32.5 G/DL (32.0-36.0); MEAN CORPUSCULAR VOLUME 75 FL (80-99); MEAN PLATELET VOLUME 7.7 FL (6.5-10.1); PLATELET COUNT 322 K/UL (150-450); RED CELL DISTRIBUTION WIDTH 16.8 % (11.6-14.8); WHITE BLOOD COUNT 17.4 K/UL (4.8-10.8)
[2017-01-08 08:25] LABS: CRP QUANT 5.1 mg/dL (< 0.5); MAGNESIUM 1.9 mg/dL (1.7-2.5); PHOSPHORUS 4.8 mg/dL (2.5-4.8)
[2017-01-08 08:26] LABS: ALANINE AMINOTRANSFERASE 53 U/L (3-41); ALBUMIN/GLOBULIN RATIO 1.1 (1.0-2.7); ANION GAP 13 (5-15); ASPARTATE AMINO TRANSFERASE 34 U/L (5-40); CALCIUM 8.9 mg/dL (8.6-10.2); CARBON DIOXIDE 25 mEQ/L (20-30); CHLORIDE 102 mEQ/L (98-107); CREATININE 0.6 mg/dL (0.7-1.2); GLOMERULAR FILTRATION RATE > 60 mL/min (>60); HEMOLYSIS 0; POTASSIUM 4.2 mEQ/L (3.4-4.9); SODIUM 140 mEQ/L (135-145); TOTAL PROTEIN 7.1 g/dL (6.6-8.7)
[2017-01-08 08:42] LABS: BILIRUBIN,DIRECT 0.3 mg/dL (0.1-0.3)
[2017-01-08] MEDS: Hydroxyurea 500mg cap ORAL SCH (09:52)
[2017-01-08] MEDS ORDERED: 1/2 NS 1000ml IV ONE ×2 (10:24→15:57)
[2017-01-08 10:44] LABS: ERYTHROCYTE SEDIMENTATION RATE 51 MM/HR (0-15)
--- NOTE | 2017-01-08 11:13 | Pulmonology Progress Note ---
Assessment/Plan Assessment/Plan ASSESSMENT ACUTE CHEST SYNDROME SICKLE CELL DISEASE SICKLE BRUCE CRISIS TRANSAMINITIS ANEMIA LEUKOCYTOSIS PLAN OF CARE tele O2 HHN prn pain management pain specialist follows IVF empiric abx CXR negative UA negative blood cx preliminary negative urine tox screen + opiates ( given in ED) CT chest cancelled due to elevated creta VQ scan negative Venous Duplex BLE negative PT/OT DVT prophylaxis folic acid bowel regimen monitor HH, transfuse prn LDH trending down, monitor LFT case discussed and evaluated by supervising physician Subjective Allergies: Coded Allergies: CEFTRIAXONE (Verified Allergy, Unknown, 04/20/16) Uncoded Allergies: CONTRAST (Adverse Reaction, Severe, Rash, 06/23/16) RADIOCONTRAST - RASH, ITCHING Subjective afebrile leukocytosis trending down still c/o intermittent chest pain radiating to his back no SOB, no palpitations Objective Last 24 Hour Vital Signs Date Time Temp Pulse Resp B/P Pulse Ox O2 Delivery O2 Flow Rate FiO2 01/08/17 07:47 98.1 53 18 107/53 95 Room Air 01/08/17 07:00 Room Air 21 01/08/17 07:00 Room Air 01/08/17 04:56 99.0 01/08/17 04:00 98.8 77 20 108/54 95 Room Air 01/08/17 04:00 65 01/08/17 02:20 21 01/08/17 02:19 21 01/08/17 00:00 61 01/08/17 00:00 99.0 60 20 103/60 95 Room Air 01/08/17 00:00 99.0 01/07/17 23:10 60 18 Room Air 01/07/17 20:14 95.2 48 19 102/41 80 Room Air 01/07/17 20:12 95.2 48 01/07/17 20:00 54 01/07/17 16:00 96.8 62 16 116/68 98 Room Air 01/07/17 16:00 50 01/07/17 12:08 97.0 53 17 119/70 99 Room Air 01/07/17 12:00 61 Intake and Output 01/07/17 01/08/17 19:00 07:00 Intake Total 680 ml 525 ml Balance 680 ml 525 ml Intake Oral 680 ml IV Total 525 ml # Voids 2 3 # Bowel Movements 1 General Appearance: no acute distress - awake alert, oriented x 3 obese young male HEENT: normocephalic, atraumatic, anicteric, mucous membranes moist Respiratory/Chest: lungs clear, no respiratory distress, no accessory muscle use, chest wall tender - tender on palpation Cardiovascular: normal peripheral pulses, regular rhythm, bradycardia - SB in 50 th on tele Abdomen: normal bowel sounds, soft, non tender - obese Genitourinary: normal external genitalia Extremities: no edema, pedal pulses normal 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, no motor/sensory deficits, alert, oriented x 3, responsive, normal mood/affect Musculoskeletal: normal muscle bulk Microbiology Date/Time Source Procedure Growth Status 01/06/17 16:10 Blood Blood Culture - Preliminary NO GROWTH AFTER 24 HOURS Resulted 01/06/17 16:00 Blood Blood Culture - Preliminary NO GROWTH AFTER 24 HOURS Resulted Laboratory Tests 01/08/17 07:50: White Blood Count 17.4H, Red Blood Count 3.30L, Hemoglobin 8.1L, Hematocrit 24.9L, Mean Corpuscular Volume 75L, Mean Corpuscular Hemoglobin 24.5L, Mean Corpuscular Hemoglobin Concent 32.5, Red Cell Distribution Width 16.8H, Platelet Count 322, Mean Platelet Volume 7.7, Neutrophils (%) (Auto) , Lymphocytes (%) (Auto) , Monocytes (%) (Auto) , Eosinophils (%) (Auto) , Basophils (%) (Auto) , Neutrophils % (Manual) [Pending], Lymphocytes % (Manual) [Pending], Platelet Estimate [Pending], Platelet Morphology [Pending], Erythrocyte Sedimentation Rate 51H, Sodium Level 140, Potassium Level 4.2, Chloride Level 102, Carbon Dioxide Level 25, Anion Gap 13, Blood Urea Nitrogen 9 , Creatinine 0.6L, Estimat Glomerular Filtration Rate > 60, Glucose Level 109H, Calcium Level 8.9, Phosphorus Level 4.8, Magnesium Level 1.9, Total Bilirubin 1.1, Direct Bilirubin 0.3, Aspartate Amino Transf (AST/SGOT) 34, Alanine Aminotransferase (ALT/SGPT) 53H, Alkaline Phosphatase 99, Lactate Dehydrogenase [Pending], C-Reactive Protein, Quantitative 5.1H, Total Protein 7.1, Albumin 3.8 , Globulin 3.3, Albumin/Globulin Ratio 1.1 Current Medications Medications (Trade) Dose Ordered Sig/Arianne Route PRN Reason Start Time Stop Time Status Last Admin Dose Admin Acetaminophen (Tylenol) 650 mg Q4H PRN ORAL fever 01/06/17 17:45 02/05/17 17:44 01/06/17 18:47 Al Hydroxide/Mg Hydroxide (Mylanta II) 30 ml Q6H PRN ORAL dyspepsia 01/06/17 17:45 02/05/17 17:44 Albuterol/ Ipratropium (DuoNeb 0.5-3(2.5)mg/3ml) 3 ml Q6HRT HHN 01/07/17 13:00 01/12/17 12:59 Dextrose (Dextrose 50%) STAT PRN IV Hypoglycemia 01/06/17 17:45 02/05/17 17:44 Diphenhydramine HCl (Benadryl) 25 mg Q3HR PRN IVP Itching 01/08/17 11:00 02/07/17 10:59 UNV Folic Acid (Folate) 1 mg DAILY ORAL 01/07/17 09:00 02/06/17 08:59 01/08/17 08:10 Heparin Sodium (Porcine) (Heparin 5000 units/ml) 5,000 units EVERY 12 HOURS SUBQ 01/06/17 21:00 02/05/17 20:59 01/08/17 08:15 Hydromorphone HCl (Dilaudid) 2 mg EVERY 3 HOURS PRN IV pain 4-6 01/06/17 17:45 01/13/17 17:44 Hydromorphone HCl (Dilaudid) 4 mg Q4HR PRN ORAL Severe Breakthru Pain (>7) 01/06/17 17:45 01/13/17 17:44 Hydromorphone HCl 3 mg 3 mg Q3H PRN IVP For Pain 7-10 01/06/17 17:45 01/13/17 17:44 01/08/17 08:11 Hydroxyurea (Hydrea) 3,500 mg DAILY ORAL 01/08/17 09:00 01/13/17 08:59 01/08/17 09:52 Lorazepam (Ativan 2mg/ml 1ml) 0.5 mg Q4H PRN IV For Anxiety 01/06/17 17:45 01/13/17 17:44 Ondansetron HCl (Zofran) 4 mg Q6H PRN IVP Nausea & Vomiting 01/06/17 17:45 02/05/17 17:44 Oxycodone HCl (OxyCONTIN) 20 mg EVERY 12 HOURS ORAL 01/06/17 21:00 01/13/17 20:59 01/07/17 21:23 Polyethylene Glycol (Miralax) 17 gm HSPRN PRN ORAL Constipation 01/06/17 17:45 02/05/17 17:44 Promethazine HCl/ Codeine (Phenergan with Codeine) 5 ml Q4H PRN ORAL For Cough 01/07/17 12:45 02/06/17 12:44 Sodium Chloride (0.45% NS 1000ml) 1,000 ml @ 75 mls/hr [id number] IV 01/06/17 20:00 02/05/17 19:59 01/07/17 22:47 Zolpidem Tartrate (Ambien) 5 mg HSPRN PRN ORAL Insomnia 01/06/17 17:45 02/05/17 17:44 Giovanna Montalvo NP (Vanchtein) Jan 08, 2017 11:13
[2017-01-08 11:14] LABS: ANISOCYTOSIS 1+; EOSINOPHILS % (MANUAL) 3 % (0-3); LYMPHOCYTES % (MANUAL) 56 % (20-45); MICROCYTES 1+; NEUTROPHILS % (MANUAL) 39 % (45-75); NUCLEATED RED BLOOD CELLS 4 /100 WBC; TOTAL CELLS COUNTED 100
[2017-01-08 11:17] LABS: BAND NEUTROPHILS % (MANUAL) 0 % (0-8); BASOPHILS % (MANUAL) 0 % (0-2); PLATELET ESTIMATE INCREASED
[2017-01-08] MEDS: DiphenhydrAMINE 50mg/ml Inj IVP PRN ×3 (11:17→20:29)
[2017-01-08 11:18] LABS: HYPOCHROMASIA 1+; PLATELET MORPHOLOGY NORMAL
[2017-01-08 11:40] VITALS: BP 100/64
--- NOTE | 2017-01-08 12:53 | Consultation ---
Consult Note Consult Note ID dic # [id number] JOCELYN AL M.D. Jan 08, 2017 12:53
[2017-01-08] MEDS: Levofloxacin 500mg tab ORAL SCH (13:23)
[2017-01-08 16:12] VITALS: BP 108/63
--- NOTE | 2017-01-08 17:02 | Cardiology Progress Note ---
Subjective Subjective [id number] Objective Last 24 Hour Vital Signs Date Time Temp Pulse Resp B/P Pulse Ox O2 Delivery O2 Flow Rate FiO2 01/08/17 16:12 98.1 57 18 108/63 97 Room Air 01/08/17 13:41 Room Air 01/08/17 13:41 Room Air 01/08/17 12:00 51 01/08/17 11:40 98.3 53 18 100/64 100 Room Air 01/08/17 08:00 73 01/08/17 07:47 98.1 53 18 107/53 95 Room Air 01/08/17 07:00 Room Air 21 01/08/17 07:00 Room Air 21 01/08/17 04:56 99.0 01/08/17 04:00 98.8 77 20 108/54 95 Room Air 01/08/17 04:00 65 01/08/17 02:20 21 01/08/17 02:19 21 01/08/17 00:00 61 01/08/17 00:00 99.0 60 20 103/60 95 Room Air 01/08/17 00:00 99.0 01/07/17 23:10 60 18 Room Air 21 01/07/17 20:14 95.2 48 19 102/41 80 Room Air 01/07/17 20:12 95.2 48 01/07/17 20:00 54 Intake and Output 01/07/17 01/08/17 19:00 07:00 Intake Total 680 ml 600 ml Balance 680 ml 600 ml Intake Oral 680 ml IV Total 600 ml # Voids 2 3 # Bowel Movements 1 Laboratory Tests Test 01/08/17 07:50 White Blood Count 17.4 K/UL (4.8-10.8) H Red Blood Count 3.30 M/UL (4.70-6.10) L Hemoglobin 8.1 G/DL (14.2-18.0) L Hematocrit 24.9 % (42.0-52.0) L Mean Corpuscular Volume 75 FL (80-99) L Mean Corpuscular Hemoglobin 24.5 PG (27.0-31.0) L Mean Corpuscular Hemoglobin Concent 32.5 G/DL (32.0-36.0) Red Cell Distribution Width 16.8 % (11.6-14.8) H Platelet Count 322 K/UL (150-450) Mean Platelet Volume 7.7 FL (6.5-10.1) Neutrophils (%) (Auto) % (45.0-75.0) Lymphocytes (%) (Auto) % (20.0-45.0) Monocytes (%) (Auto) % (1.0-10.0) Eosinophils (%) (Auto) % (0.0-3.0) Basophils (%) (Auto) % (0.0-2.0) Differential Total Cells Counted 100 Neutrophils % (Manual) 39 % (45-75) L Lymphocytes % (Manual) 56 % (20-45) H Monocytes % (Manual) 2 % (1-10) Eosinophils % (Manual) 3 % (0-3) Basophils % (Manual) 0 % (0-2) Band Neutrophils 0 % (0-8) Nucleated Red Blood Cells 4 /100 WBC Platelet Estimate Increased H Platelet Morphology Normal Hypochromasia 1+ Anisocytosis 1+ Microcytosis 1+ Erythrocyte Sedimentation Rate 51 MM/HR (0-15) H Sodium Level 140 mEQ/L (135-145) Potassium Level 4.2 mEQ/L (3.4-4.9) Chloride Level 102 mEQ/L (98-107) Carbon Dioxide Level 25 mEQ/L (20-30) Anion Gap 13 (5-15) Blood Urea Nitrogen 9 mg/dL (7-23) Creatinine 0.6 mg/dL (0.7-1.2) L Estimat Glomerular Filtration Rate > 60 mL/min (>60) Glucose Level 109 mg/dL (74-106) H Calcium Level 8.9 mg/dL (8.6-10.2) Phosphorus Level 4.8 mg/dL (2.5-4.8) Magnesium Level 1.9 mg/dL (1.7-2.5) Total Bilirubin 1.1 mg/dL (0.0-1.2) Direct Bilirubin 0.3 mg/dL (0.1-0.3) Aspartate Amino Transf (AST/SGOT) 34 U/L (5-40) Alanine Aminotransferase (ALT/SGPT) 53 U/L (3-41) H Alkaline Phosphatase 99 U/L (40-129) Lactate Dehydrogenase Pending C-Reactive Protein, Quantitative 5.1 mg/dL (< 0.5) H Total Protein 7.1 g/dL (6.6-8.7) Albumin 3.8 g/dL (3.5-5.2) Globulin 3.3 g/dL Albumin/Globulin Ratio 1.1 (1.0-2.7) Microbiology Date/Time Source Procedure Growth Status 01/06/17 16:10 Blood Blood Culture - Preliminary NO GROWTH AFTER 24 HOURS Resulted 01/06/17 16:00 Blood Blood Culture - Preliminary NO GROWTH AFTER 24 HOURS Resulted REGAN DE LA TORRE Jan 08, 2017 17:02
[2017-01-08] MEDS ORDERED: Bisacodyl EC 5mg tab ORAL PRN (18:00)
[2017-01-08 20:00] VITALS: BP 113/55
--- NOTE | 2017-01-08 21:15 | Consultation ---
DATE OF CONSULTATION: INFECTIOUS DISEASE CONSULTATION CONSULTING PHYSICIAN: Damien Duke M.D. REFERRING PHYSICIAN: Ranjith Caicedo M.D. REASON FOR CONSULTATION: Evaluation of the patient for fever, leukocytosis, possible need for antibiotic treatment. HISTORY OF PRESENT ILLNESS: The patient is a 21-year-old male with multiple medical problems , who came to the hospital with chest pain and low grade fever and admitted with impression of sickle cell crisis. The patient was found to have a being febrile, having leukocytosis and the patient has been started on IV antibiotics. Infectious consultation requested for further evaluation of the patient's antibiotic management. PAST MEDICAL HISTORY: 1. Left hip avascular necrosis. 2. History of asthma. 3. 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 4. History of sickle cell disease. MEDICATIONS: The patient has been started on Levaquin. ALLERGIES: Ceftriaxone and contrast. SOCIAL HISTORY: Negative for alcohol, drug abuse or smoking. FAMILY HISTORY: Noncontributory. REVIEW OF SYSTEMS: A 10-point review was done and except what is mentioned has been negative.. HEENT: No recent change in vision or hearing. Pulmonary: No significant cough. Cardiovascular: As mentioned already. No palpitations. Gastrointestinal/Abdomen: No nausea or vomiting. Genitourinary: No dysuria. Musculoskeletal: Pain in chest and arms. PHYSICAL EXAMINATION: VITAL SIGNS: Temperature 98 degrees, blood pressure 100/64, pulse 74, and respiratory rate 18. HEENT: Mild pale conjunctivae. No icterus. NECK: No lymphadenopathy. CHEST: Coarse breathing sounds. HEART: S1 and S2. ABDOMEN: Soft and nontender. EXTREMITIES: No cyanosis. NEUROLOGIC: Awake and alert. LABORATORY AND DIAGNOSTIC DATA: White blood cell is 17, hemoglobin 8.1, and platelets 322,000. Urinalysis unremarkable. ALT is mildly elevated. ASSESSMENT: The patient is a 21-year-old male with multiple medical problems, who also had 1. Leukocytosis. 2. Fever. 3. Sickle cell crisis, that may have been contributing to the above fever, however, possible sepsis is in consideration. PLAN: 1. We will continue the patient on IV Levaquin. 2. Monitor CBC. Monitor BMP. 3. Monitor blood cultures. 4. Based on the patient's clinical course and labs, we will do further recommendations. Thank you, Dr. Caicedo, for allowing me to participate in the care of this patient. I will follow the patient with you during this hospitalization. Damien Duke M.D. DR: SHERMAN JOB#: [id number] CC:
[2017-01-09] VITALS (7 sets, daily range): BP systolic 104–159; BP diastolic 45–97
[2017-01-09] MEDS: DuoNeb 0.5-3(2.5)mg/3ml neb HHN SCH ×4 (01:00→19:45)
--- NOTE | 2017-01-09 01:10 | Cardiology Report ---
APPROVED REPORT EKG Measurement Heart [id number] Normal sinus rhythm Nonspecific T wave abnormality Abnormal ECG
--- NOTE | 2017-01-09 02:30 | Consultation ---
DATE OF CONSULTATION: 01/08/2017 CARDIOLOGY CONSULTATION REFERRING PHYSICIAN: Ranjith Caicedo M.D. This is a done as a cardiac evaluation as a coverage for Dr. Dane Dickey. REASON FOR CONSULTATION: Chest pain. HISTORY OF PRESENT ILLNESS: History of present illness taken from the patient. The patient has severe sharp pain on the left side of his chest with a deep inspiration and turning around. He denies any hemoptysis. 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 He had this similar pain was in May 2016. The patient is slightly better now, his pain started three days ago. He has also history of asthma. MEDICATIONS: His home medications were reviewed and reconciled. Hospital medications were reviewed and reconciled ALLERGIES: Contrast and ceftriaxone. HABITS: No history of drinking, smoking or any drug abuse according to the patient. REVIEW OF SYSTEMS: He had mild fever, now is relieved. There is no orthopnea. No lower extremity edema. No previous cardiac history or issues. PHYSICAL EXAMINATION: GENERAL: This is a pleasant young gentleman sitting in bed, in moderate distress due to pain. VITAL SIGNS: Blood pressure 100/60, heart rate is 58, oxygen saturation is on room air 95% and on two liters of oxygen 100% and temperature 98.1 degrees.. HEENT: PERRLA. EOMI. NECK: Supple. Jugular pressure is approximately 6 centimeters. Carotid upstroke is preserved. LUNGS: There is few crackles on the left side. HEART: Regular. Slightly diminished S1. There is no gallop and no murmurs. There is no rash. ABDOMEN: Soft. Spleen is not palpable. There is no masses. Bowel sounds are present. EXTREMITIES: Lower extremity, no edema. LABORATORY AND DIAGNOSTIC DATA: EKG done and EKG shows LVH with some mild ST and T changes. Chest x-ray is unremarkable. Ventilation/perfusion scan is unremarkable. His blood reviewed in his WBC is down to 17 today from 24, it is due to most likely nucleated RBCs, I think hemoglobin is done as well and platelets 222,000. His chemistry is unremarkable. Troponin is negative. INR is normal. IMPRESSION AND RECOMMENDATION: Chest pain, most likely musculoskeletal. I suspect that she has possible some vasculature of his bones sickling was causing pain, however, it also could be pleuritic type of pain. Pulmonary emboli was ruled out. I do not see any ongoing cardiac issues at present time. It is not coronary for sure and the chest pain is very likely is not cardiac as well. Thank you very much for your consultation. I also suggest Hematology consult. Nandini Monahan M.D. DR: HARINI JOB#: [id number] CC:
[2017-01-09] MEDS: DiphenhydrAMINE 50mg/ml Inj IVP PRN ×5 (03:37→20:54)
[2017-01-09 07:38] LABS: ALANINE AMINOTRANSFERASE 72 U/L (3-41); ALBUMIN/GLOBULIN RATIO 1.1 (1.0-2.7); ANION GAP 12 (5-15); ASPARTATE AMINO TRANSFERASE 49 U/L (5-40); CALCIUM 9.3 mg/dL (8.6-10.2); CARBON DIOXIDE 28 mEQ/L (20-30); CHLORIDE 99 mEQ/L (98-107); CREATININE 0.6 mg/dL (0.7-1.2); GLOMERULAR FILTRATION RATE > 60 mL/min (>60); HEMOLYSIS 0; POTASSIUM 4.5 mEQ/L (3.4-4.9); SODIUM 139 mEQ/L (135-145); TOTAL PROTEIN 7.3 g/dL (6.6-8.7)
[2017-01-09 07:52] LABS: BILIRUBIN,DIRECT 0.3 mg/dL (0.1-0.3)
[2017-01-09 08:08] LABS: MEAN CORPUSCULAR HEMOGLOBIN 23.7 PG (27.0-31.0); MEAN CORPUSCULAR HGB CONC 31.5 G/DL (32.0-36.0); MEAN CORPUSCULAR VOLUME 75 FL (80-99); MEAN PLATELET VOLUME 7.7 FL (6.5-10.1); PLATELET COUNT 325 K/UL (150-450); RED BLOOD COUNT 3.37 M/UL (4.70-6.10)
[2017-01-09] MEDS: Hydroxyurea 500mg cap ORAL SCH (08:46)
[2017-01-09] MEDS: Levofloxacin 500mg tab ORAL SCH (08:46)
[2017-01-09] MEDS: oxyCONTIN 20mg tab ORAL SCH ×2 (08:46→21:00)
[2017-01-09] MEDS: Heparin 5000 units/ml inj SUBQ SCH ×2 (08:47→20:55)
[2017-01-09 10:31] LABS: BAND NEUTROPHILS % (MANUAL) 1 % (0-8); EOSINOPHILS % (MANUAL) 1 % (0-3); LYMPHOCYTES % (MANUAL) 46 % (20-45); NEUTROPHILS % (MANUAL) 49 % (45-75); NUCLEATED RED BLOOD CELLS 4 /100 WBC; TOTAL CELLS COUNTED 100
[2017-01-09 10:32] LABS: BASOPHILS % (MANUAL) 0 % (0-2); HYPOCHROMASIA 2+; PLATELET ESTIMATE ADEQUATE; PLATELET MORPHOLOGY NORMAL; POLYCHROMASIA 2+; TARGET CELLS 1+
--- NOTE | 2017-01-09 10:43 | General Progress Note ---
Assessment/Plan Assessment/Plan (1) Sickle Cell disease (2) Sickle Cell Crisis (3) Intractable pain Pt will be continued on OxyContin and Dilaudid. Dilaudid 3mg will be changed to as needed BID and continued The Dilaudid 2mg IV Q3H PRN Pain. Dilaudid tabs will be continued. Pt was d/w Dr. Tucker and he concurred. Subjective Date patient seen: Jan 09, 2017 Time patient seen: 09:15 - am Allergies: Coded Allergies: CEFTRIAXONE (Verified Allergy, Unknown, 04/20/16) Uncoded Allergies: CONTRAST (Adverse Reaction, Severe, Rash, 06/23/16) RADIOCONTRAST - RASH, ITCHING Subjective Constitutional: Reports: weakness, Denies: chills, diaphoresis, fever, malaise HEENT: Denies: blurred vision, double vision, ear discharge, ear pain, eye pain , mouth pain, mouth swelling, nose congestion, nose pain, tearing, throat pain, throat swelling Cardiovascular: Reports: chest pain, Denies: edema, irregular heart rate, lightheadedness, palpitations, syncope Respiratory: Reports: shortness of breath, Denies: SOB at rest, SOB with excertion, cough, orthopnea, sputum, stridor, wheezing Gastrointestinal/Abdominal: Denies: abdomen distended, abdominal pain, black stools, blood in stool, constipated, diarrhea, difficulty swallowing, nausea, poor appetite, poor fluid intake, rectal bleeding, tarry stools, vomiting Genitourinary: Denies: burning, discharge, flank pain, frequency, hematuria, incontinence, pain, urgency Neurologic/Psychiatric: Denies: anxiety, depressed, emotional problems, headache, numbness, paresthesia, pre-existing deficit, seizure, tingling, tremors, weakness Endocrine: Denies: excessive sweating, flushing, increased hunger, increased thirst, increased urine, intolerance to cold, intolerance to heat, unexplained weight gain, unexplained weight loss Hematologic/Lymphatic: Denies: easy bleeding, easy bruising Subjective Pain is reducing d/w pt about Dilaudid use and we will change to as needed 3mg twice a day and continue the Dilaudid 2mg Q3H as needed he understands. Objective Last 24 Hour Vital Signs Date Time Temp Pulse Resp B/P Pulse Ox O2 Delivery O2 Flow Rate FiO2 01/09/17 08:11 98.2 52 18 107/45 96 Room Air 01/09/17 07:40 76 16 96 Room Air 01/09/17 07:40 Room Air 01/09/17 04:00 52 01/09/17 04:00 98.2 53 18 107/53 92 Room Air 2.0 01/09/17 01:21 Room Air 01/09/17 01:21 Room Air 01/09/17 01:06 98.1 01/09/17 00:00 49 01/09/17 00:00 98.1 61 20 113/55 97 Room Air 2.0 01/08/17 20:00 65 01/08/17 20:00 97.9 58 20 113/55 01/08/17 19:04 Room Air 01/08/17 19:04 Room Air 01/08/17 16:12 98.1 57 18 108/63 97 Room Air 01/08/17 16:00 66 01/08/17 13:41 Room Air 01/08/17 13:41 Room Air 01/08/17 12:00 51 01/08/17 11:40 98.3 53 18 100/64 100 Room Air Intake and Output 01/08/17 01/09/17 19:00 07:00 Intake Total 1110 ml 1275 ml Output Total 650 ml 2 ml Balance 460 ml 1273 ml Intake Oral 360 ml IV Total 750 ml 675 ml Other 600 ml Output Urine Total 650 ml 2 ml # Voids 4 Laboratory Tests 01/09/17 06:30: White Blood Count 17.0H, Red Blood Count 3.37L, Hemoglobin 8.0L, Hematocrit 25.4L, Mean Corpuscular Volume 75L, Mean Corpuscular Hemoglobin 23.7L, Mean Corpuscular Hemoglobin Concent 31.5L, Red Cell Distribution Width 17.0H, Platelet Count 325, Mean Platelet Volume 7.7, Neutrophils (%) (Auto) , Lymphocytes (%) (Auto) , Monocytes (%) (Auto) , Eosinophils (%) (Auto) , Basophils (%) (Auto) , Differential Total Cells Counted 100, Neutrophils % ( Manual) 49, Lymphocytes % (Manual) 46H, Monocytes % (Manual) 3, Eosinophils % ( Manual) 1, Basophils % (Manual) 0, Band Neutrophils 1, Nucleated Red Blood Cells 4, Platelet Estimate Adequate, Platelet Morphology Normal, Polychromasia 2 +, Hypochromasia 2+, Target Cells 1+, Sodium Level 139, Potassium Level 4.5, Chloride Level 99, Carbon Dioxide Level 28, Anion Gap 12, Blood Urea Nitrogen 8 , Creatinine 0.6L, Estimat Glomerular Filtration Rate > 60, Glucose Level 87, Calcium Level 9.3, Total Bilirubin 1.2, Direct Bilirubin 0.3, Aspartate Amino Transf (AST/SGOT) 49H, Alanine Aminotransferase (ALT/SGPT) 72H, Alkaline Phosphatase 120, Lactate Dehydrogenase [Pending], Total Protein 7.3, Albumin 3.9 , Globulin 3.4, Albumin/Globulin Ratio 1.1, Free Thyroxine 1.41, Free Triiodothyronine [Pending] Height (Feet): 5 Height (Inches): 6.00 Weight (Pounds): 241 Objective General Appearance: alert EENT: PERRL/EOMI, normal ENT inspection Neck: non-tender, normal alignment Cardiovascular: normal rate, regular rhythm Respiratory/Chest: decreased breath sounds Abdomen: soft, no organomegaly Edema: no edema noted Arm (L), no edema noted Arm (R), no edema noted Leg (L), no edema noted Leg (R), no edema noted Pedal (L), no edema noted Pedal (R), no edema noted Generalized Neurologic: alert, oriented x 3 Skin: warm/dry LETICIA CASTLE Jan 09, 2017 10:43
--- NOTE | 2017-01-09 13:05 | Infectious Diseases Prog Note ---
Assessment/Plan Assessment/Plan A; Fever resolved Leukocytosis Sickle cell crisis s/p Splenectomy P; continue Levaquin Subjective ROS Limited/Unobtainable: No Constitutional: Reports: no symptoms HEENT: Reports: no symptoms Respiratory: Reports: dry cough, other - chest pain with coughing Gastrointestinal/Abdominal: Reports: no symptoms Genitourinary: Reports: no symptoms Musculoskeletal: Reports: no symptoms Allergies: Coded Allergies: CEFTRIAXONE (Verified Allergy, Unknown, 04/20/16) Uncoded Allergies: CONTRAST (Adverse Reaction, Severe, Rash, 06/23/16) RADIOCONTRAST - RASH, ITCHING Objective Vital Signs Last 24 Hour Vital Signs Date Time Temp Pulse Resp B/P Pulse Ox O2 Delivery O2 Flow Rate FiO2 01/09/17 12:00 67 01/09/17 11:34 98.8 58 18 112/45 95 Room Air 01/09/17 08:11 98.2 52 18 107/45 96 Room Air 01/09/17 08:00 52 01/09/17 07:40 76 16 96 Room Air 01/09/17 07:40 Room Air 01/09/17 04:00 52 01/09/17 04:00 98.2 53 18 107/53 92 Room Air 2.0 01/09/17 01:21 Room Air 01/09/17 01:21 Room Air 01/09/17 01:06 98.1 01/09/17 00:00 49 01/09/17 00:00 98.1 61 20 113/55 97 Room Air 2.0 21 01/08/17 20:00 65 01/08/17 20:00 97.9 58 20 113/55 01/08/17 19:04 Room Air 01/08/17 19:04 Room Air 01/08/17 16:12 98.1 57 18 108/63 97 Room Air 01/08/17 16:00 66 01/08/17 13:41 Room Air 01/08/17 13:41 Room Air Height (Feet): 5 Height (Inches): 6.00 Weight (Pounds): 241 General Appearance: no acute distress HEENT: other - pale conjunctiva Respiratory/Chest: lungs clear Cardiovascular: normal rate Abdomen: soft, non tender Extremities: no edema Neurologic/Psychiatric: alert, oriented x 3, responsive Microbiology Date/Time Source Procedure Growth Status 01/06/17 16:10 Blood Blood Culture - Preliminary NO GROWTH AFTER 48 HOURS Resulted 01/06/17 16:00 Blood Blood Culture - Preliminary NO GROWTH AFTER 48 HOURS Resulted Laboratory Tests Test 01/09/17 06:30 White Blood Count 17.0 K/UL (4.8-10.8) H Red Blood Count 3.37 M/UL (4.70-6.10) L Hemoglobin 8.0 G/DL (14.2-18.0) L Hematocrit 25.4 % (42.0-52.0) L Mean Corpuscular Volume 75 FL (80-99) L Mean Corpuscular Hemoglobin 23.7 PG (27.0-31.0) L Mean Corpuscular Hemoglobin Concent 31.5 G/DL (32.0-36.0) L Red Cell Distribution Width 17.0 % (11.6-14.8) H Platelet Count 325 K/UL (150-450) Mean Platelet Volume 7.7 FL (6.5-10.1) Neutrophils (%) (Auto) % (45.0-75.0) Lymphocytes (%) (Auto) % (20.0-45.0) Monocytes (%) (Auto) % (1.0-10.0) Eosinophils (%) (Auto) % (0.0-3.0) Basophils (%) (Auto) % (0.0-2.0) Differential Total Cells Counted 100 Neutrophils % (Manual) 49 % (45-75) Lymphocytes % (Manual) 46 % (20-45) H Monocytes % (Manual) 3 % (1-10) Eosinophils % (Manual) 1 % (0-3) Basophils % (Manual) 0 % (0-2) Band Neutrophils 1 % (0-8) Nucleated Red Blood Cells 4 /100 WBC Platelet Estimate Adequate Platelet Morphology Normal Polychromasia 2+ Hypochromasia 2+ Target Cells 1+ Sodium Level 139 mEQ/L (135-145) Potassium Level 4.5 mEQ/L (3.4-4.9) Chloride Level 99 mEQ/L (98-107) Carbon Dioxide Level 28 mEQ/L (20-30) Anion Gap 12 (5-15) Blood Urea Nitrogen 8 mg/dL (7-23) Creatinine 0.6 mg/dL (0.7-1.2) L Estimat Glomerular Filtration Rate > 60 mL/min (>60) Glucose Level 87 mg/dL (74-106) Calcium Level 9.3 mg/dL (8.6-10.2) Total Bilirubin 1.2 mg/dL (0.0-1.2) Direct Bilirubin 0.3 mg/dL (0.1-0.3) Aspartate Amino Transf (AST/SGOT) 49 U/L (5-40) H Alanine Aminotransferase (ALT/SGPT) 72 U/L (3-41) H Alkaline Phosphatase 120 U/L (40-129) Lactate Dehydrogenase Pending Total Protein 7.3 g/dL (6.6-8.7) Albumin 3.9 g/dL (3.5-5.2) Globulin 3.4 g/dL Albumin/Globulin Ratio 1.1 (1.0-2.7) Free Thyroxine 1.41 ng/dL (0.86-1.85) Free Triiodothyronine Pending Current Medications Medications (Trade) Dose Ordered Sig/Arianne Route PRN Reason Start Time Stop Time Status Last Admin Dose Admin Acetaminophen (Tylenol) 650 mg Q4H PRN ORAL fever 01/06/17 17:45 02/05/17 17:44 01/06/17 18:47 Al Hydroxide/Mg Hydroxide (Mylanta II) 30 ml Q6H PRN ORAL dyspepsia 01/06/17 17:45 02/05/17 17:44 Albuterol/ Ipratropium (DuoNeb 0.5-3(2.5)mg/3ml) 3 ml Q6HRT HHN 01/07/17 13:00 01/12/17 12:59 Bisacodyl (Dulcolax) 5 mg DAILYPRN PRN ORAL Constipation 01/08/17 18:00 02/07/17 17:59 01/08/17 17:28 Dextrose (Dextrose 50%) STAT PRN IV Hypoglycemia 01/06/17 17:45 02/05/17 17:44 Diphenhydramine HCl (Benadryl) 25 mg Q3H PRN IVP Itching 01/08/17 11:00 02/07/17 10:59 01/09/17 10:30 Folic Acid (Folate) 1 mg DAILY ORAL 01/07/17 09:00 02/06/17 08:59 01/09/17 08:45 Heparin Sodium (Porcine) (Heparin 5000 units/ml) 5,000 units EVERY 12 HOURS SUBQ 01/06/17 21:00 02/05/17 20:59 01/09/17 08:47 Hydromorphone HCl (Dilaudid) 3 mg BID PRN IVP Severe Pain (Pain Scale 7-10) 01/09/17 18:00 01/16/17 17:59 Hydromorphone HCl (Dilaudid) 4 mg Q4HR PRN ORAL Severe Breakthru Pain (>7) 01/06/17 17:45 01/13/17 17:44 Hydromorphone HCl 2 mg 2 mg EVERY 3 HOURS PRN IV pain 4-6 01/06/17 17:45 01/13/17 17:44 Hydroxyurea (Hydrea) 3,500 mg DAILY ORAL 01/08/17 09:00 01/13/17 08:59 01/09/17 08:46 Levofloxacin (Levaquin) 500 mg DAILY ORAL 01/08/17 14:00 01/15/17 13:59 01/09/17 08:46 Lorazepam (Ativan 2mg/ml 1ml) 0.5 mg Q4H PRN IV For Anxiety 01/06/17 17:45 01/13/17 17:44 Ondansetron HCl (Zofran) 4 mg Q6H PRN IVP Nausea & Vomiting 01/06/17 17:45 02/05/17 17:44 01/09/17 00:51 Oxycodone HCl (OxyCONTIN) 20 mg EVERY 12 HOURS ORAL 01/06/17 21:00 01/13/17 20:59 01/08/17 20:28 Polyethylene Glycol (Miralax) 17 gm HSPRN PRN ORAL Constipation 01/06/17 17:45 02/05/17 17:44 Promethazine HCl/ Codeine (Phenergan with Codeine) 5 ml Q4H PRN ORAL For Cough 01/07/17 12:45 02/06/17 12:44 Sodium Chloride (0.45% NS 1000ml) 1,000 ml @ 75 mls/hr [id number] IV 01/06/17 20:00 02/05/17 19:59 01/09/17 00:52 Zolpidem Tartrate (Ambien) 5 mg HSPRN PRN ORAL Insomnia 01/06/17 17:45 02/05/17 17:44 MASSIMO LIU Jan 09, 2017 13:05
--- NOTE | 2017-01-09 14:42 | Pulmonology Progress Note ---
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 dr Davenport, no transfusion for now LDH trending down, monitor LFT cardio consult appreciated chest pain likely of MS origin, no cardiac chest pain will try NSAIDs cleared from cardiac standpoint transfer to [place] floor dc plan case discussed and evaluated by supervising physician Subjective Allergies: Coded Allergies: CEFTRIAXONE (Verified Allergy, Unknown, 04/20/16) Uncoded Allergies: CONTRAST (Adverse Reaction, Severe, Rash, 06/23/16) RADIOCONTRAST - RASH, ITCHING Subjective afebrile leukocytosis trending down still c/o intermittent chest pain radiating to his back no SOB, no palpitations Objective Last 24 Hour Vital Signs Date Time Temp Pulse Resp B/P Pulse Ox O2 Delivery O2 Flow Rate FiO2 01/09/17 12:00 67 01/09/17 11:34 98.8 58 18 112/45 95 Room Air 01/09/17 08:11 98.2 52 18 107/45 96 Room Air 01/09/17 08:00 52 01/09/17 07:40 76 16 96 Room Air 01/09/17 07:40 Room Air 01/09/17 04:00 52 01/09/17 04:00 98.2 53 18 107/53 92 Room Air 2.0 01/09/17 01:21 Room Air 01/09/17 01:21 Room Air 01/09/17 01:06 98.1 01/09/17 00:00 49 01/09/17 00:00 98.1 61 20 113/55 97 Room Air 2.0 01/08/17 20:00 65 01/08/17 20:00 97.9 58 20 113/55 01/08/17 19:04 Room Air 01/08/17 19:04 Room Air 01/08/17 16:12 98.1 57 18 108/63 97 Room Air 01/08/17 16:00 66 Intake and Output 01/08/17 01/09/17 19:00 07:00 Intake Total 1110 ml 1275 ml Output Total 650 ml 2 ml Balance 460 ml 1273 ml Intake Oral 360 ml IV Total 750 ml 675 ml Other 600 ml Output Urine Total 650 ml 2 ml # Voids 4 Objective General Appearance: no acute distress - awake alert, oriented x 3 obese young male HEENT: normocephalic, atraumatic, anicteric, mucous membranes moist Respiratory/Chest: lungs clear, no respiratory distress, no accessory muscle use, chest wall tender - tender on palpation Cardiovascular: normal peripheral pulses, regular rhythm, bradycardia - SB in 50 th on tele Abdomen: normal bowel sounds, soft, non tender - obese Genitourinary: normal external genitalia Extremities: no edema, pedal pulses normal Neurologic/Psychiatric: art coordinator II-XII 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, no motor/sensory deficits, alert, oriented x 3, responsive, normal mood/affect Musculoskeletal: normal muscle bulk Microbiology Date/Time Source Procedure Growth Status 01/06/17 16:10 Blood Blood Culture - Preliminary NO GROWTH AFTER 48 HOURS Resulted 01/06/17 16:00 Blood Blood Culture - Preliminary NO GROWTH AFTER 48 HOURS Resulted Laboratory Tests 01/09/17 06:30: White Blood Count 17.0H, Red Blood Count 3.37L, Hemoglobin 8.0L, Hematocrit 25.4L, Mean Corpuscular Volume 75L, Mean Corpuscular Hemoglobin 23.7L, Mean Corpuscular Hemoglobin Concent 31.5L, Red Cell Distribution Width 17.0H, Platelet Count 325, Mean Platelet Volume 7.7, Neutrophils (%) (Auto) , Lymphocytes (%) (Auto) , Monocytes (%) (Auto) , Eosinophils (%) (Auto) , Basophils (%) (Auto) , Differential Total Cells Counted 100, Neutrophils % ( Manual) 49, Lymphocytes % (Manual) 46H, Monocytes % (Manual) 3, Eosinophils % ( Manual) 1, Basophils % (Manual) 0, Band Neutrophils 1, Nucleated Red Blood Cells 4, Platelet Estimate Adequate, Platelet Morphology Normal, Polychromasia 2 +, Hypochromasia 2+, Target Cells 1+, Sodium Level 139, Potassium Level 4.5, Chloride Level 99, Carbon Dioxide Level 28, Anion Gap 12, Blood Urea Nitrogen 8 , Creatinine 0.6L, Estimat Glomerular Filtration Rate > 60, Glucose Level 87, Calcium Level 9.3, Total Bilirubin 1.2, Direct Bilirubin 0.3, Aspartate Amino Transf (AST/SGOT) 49H, Alanine Aminotransferase (ALT/SGPT) 72H, Alkaline Phosphatase 120, Lactate Dehydrogenase [Pending], Total Protein 7.3, Albumin 3.9 , Globulin 3.4, Albumin/Globulin Ratio 1.1, Free Thyroxine 1.41, Free Triiodothyronine [Pending] Current Medications Medications (Trade) Dose Ordered Sig/Arianne Route PRN Reason Start Time Stop Time Status Last Admin Dose Admin Acetaminophen (Tylenol) 650 mg Q4H PRN ORAL fever 01/06/17 17:45 02/05/17 17:44 01/06/17 18:47 Al Hydroxide/Mg Hydroxide (Mylanta II) 30 ml Q6H PRN ORAL dyspepsia 01/06/17 17:45 02/05/17 17:44 Albuterol/ Ipratropium (DuoNeb 0.5-3(2.5)mg/3ml) 3 ml Q6HRT HHN 01/07/17 13:00 01/12/17 12:59 Bisacodyl (Dulcolax) 5 mg DAILYPRN PRN ORAL Constipation 01/08/17 18:00 02/07/17 17:59 01/08/17 17:28 Dextrose (Dextrose 50%) STAT PRN IV Hypoglycemia 01/06/17 17:45 02/05/17 17:44 Diphenhydramine HCl (Benadryl) 25 mg Q3H PRN IVP Itching 01/08/17 11:00 02/07/17 10:59 01/09/17 10:30 Folic Acid (Folate) 1 mg DAILY ORAL 01/07/17 09:00 02/06/17 08:59 01/09/17 08:45 Heparin Sodium (Porcine) (Heparin 5000 units/ml) 5,000 units EVERY 12 HOURS SUBQ 01/06/17 21:00 02/05/17 20:59 01/09/17 08:47 Hydromorphone HCl (Dilaudid) 3 mg BID PRN IVP Severe Pain (Pain Scale 7-10) 01/09/17 18:00 01/16/17 17:59 Hydromorphone HCl (Dilaudid) 4 mg Q4HR PRN ORAL Severe Breakthru Pain (>7) 01/06/17 17:45 01/13/17 17:44 Hydromorphone HCl 2 mg 2 mg EVERY 3 HOURS PRN IV pain 4-6 01/06/17 17:45 01/13/17 17:44 01/09/17 13:49 Hydroxyurea (Hydrea) 3,500 mg DAILY ORAL 01/08/17 09:00 01/13/17 08:59 01/09/17 08:46 Levofloxacin (Levaquin) 500 mg DAILY ORAL 01/08/17 14:00 01/15/17 13:59 01/09/17 08:46 Lorazepam (Ativan 2mg/ml 1ml) 0.5 mg Q4H PRN IV For Anxiety 01/06/17 17:45 01/13/17 17:44 Ondansetron HCl (Zofran) 4 mg Q6H PRN IVP Nausea & Vomiting 01/06/17 17:45 02/05/17 17:44 01/09/17 00:51 Oxycodone HCl (OxyCONTIN) 20 mg EVERY 12 HOURS ORAL 01/06/17 21:00 01/13/17 20:59 01/08/17 20:28 Polyethylene Glycol (Miralax) 17 gm HSPRN PRN ORAL Constipation 01/06/17 17:45 02/05/17 17:44 Promethazine HCl/ Codeine (Phenergan with Codeine) 5 ml Q4H PRN ORAL For Cough 01/07/17 12:45 02/06/17 12:44 Sodium Chloride (0.45% NS 1000ml) 1,000 ml @ 75 mls/hr [id number] IV 01/06/17 20:00 02/05/17 19:59 01/09/17 13:48 Zolpidem Tartrate (Ambien) 5 mg HSPRN PRN ORAL Insomnia 01/06/17 17:45 02/05/17 17:44 [facility] Jan 09, 2017 14:42
[2017-01-09] MEDS ORDERED: Zolpidem 5mg tab ORAL PRN (17:45)
[2017-01-09] MEDS ORDERED: LORazepam Inj 2mg/ml 1ml IV PRN (17:45)
[2017-01-09] MEDS ORDERED: Miralax 17gm pkt ORAL PRN (17:45)
[2017-01-09] MEDS ORDERED: Mylanta II UD 30ml ORAL PRN (17:45)
[2017-01-09] MEDS ORDERED: Bisacodyl EC 5mg tab ORAL PRN (18:00)
[2017-01-09] MEDS ORDERED: Promethazine/Codeine 5ml UD ORAL PRN (20:45)
[2017-01-09] MEDS ORDERED: HYDROmorphone 4mg tab ORAL PRN (21:00)
[2017-01-10] MEDS: DuoNeb 0.5-3(2.5)mg/3ml neb HHN SCH ×3 (00:04→13:00)
[2017-01-10 00:06] VITALS: BP 102/55
[2017-01-10] MEDS: DiphenhydrAMINE 50mg/ml Inj IVP PRN ×4 (00:11→11:19)
[2017-01-10 04:28] VITALS: BP 115/69
[2017-01-10 08:00] VITALS: BP 109/47
[2017-01-10 08:22] LABS: BASOPHILS % (AUTO) 1.7 % (0.0-2.0); EOSINOPHILS % (AUTO) 3.7 % (0.0-3.0); LYMPHOCYTES % (AUTO) 50.2 % (20.0-45.0); MEAN CORPUSCULAR HEMOGLOBIN 23.6 PG (27.0-31.0); MEAN CORPUSCULAR HGB CONC 31.8 G/DL (32.0-36.0); MEAN CORPUSCULAR VOLUME 74 FL (80-99); MEAN PLATELET VOLUME 7.3 FL (6.5-10.1); MONOCYTES % (AUTO) 5.5 % (1.0-10.0); PLATELET COUNT 347 K/UL (150-450); RED BLOOD COUNT 3.61 M/UL (4.70-6.10); RED CELL DISTRIBUTION WIDTH 17.4 % (11.6-14.8); WHITE BLOOD COUNT 10.1 K/UL (4.8-10.8)
[2017-01-10] MEDS ORDERED: Hydroxyurea 500mg cap ORAL SCH (09:00)
[2017-01-10] MEDS ORDERED: Levofloxacin 500mg tab ORAL SCH (09:00)
[2017-01-10] MEDS: oxyCONTIN 20mg tab ORAL SCH (09:06)
[2017-01-10] MEDS: Heparin 5000 units/ml inj SUBQ SCH (09:08)
--- NOTE | 2017-01-10 09:19 | Infectious Diseases Prog Note ---
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4 History of sickle cell disease PLAN: Continue the patient on IV Levaquin d# 3 / 5 Monitor CBC Monitor BMP Monitor blood cultures Subjective Constitutional: Denies: anorexia, chills, drenching sweats, fatigue, fever, no symptoms, other Allergies: Coded Allergies: CEFTRIAXONE (Verified Allergy, Unknown, 04/20/16) Uncoded Allergies: CONTRAST (Adverse Reaction, Severe, Rash, 06/23/16) RADIOCONTRAST - RASH, ITCHING Objective Vital Signs Last 24 Hour Vital Signs Date Time Temp Pulse Resp B/P Pulse Ox O2 Delivery O2 Flow Rate FiO2 01/10/17 08:31 98.2 01/10/17 08:00 97.5 54 20 109/47 98 Room Air 01/10/17 04:28 98.2 53 20 115/69 98 Room Air 01/10/17 00:14 64 16 99 Nasal Cannula 2.0 28 01/10/17 00:12 Nasal Cannula 2.0 28 01/10/17 00:12 98 Nasal Cannula 2.0 28 01/10/17 00:06 98.2 54 16 102/55 98 Room Air 01/10/17 00:05 62 16 97 Room Air 01/09/17 20:23 99.7 92 20 109/47 96 Room Air 01/09/17 19:45 Room Air 01/09/17 19:45 Room Air 01/09/17 18:00 98.4 61 20 118/60 96 Room Air 01/09/17 16:10 97.9 57 18 104/45 97 Room Air 01/09/17 13:25 Room Air 21 01/09/17 13:25 Room Air 21 01/09/17 12:00 67 01/09/17 11:34 98.8 58 18 112/45 95 Room Air Height (Feet): 5 Height (Inches): 6.00 Weight (Pounds): 241 HEENT: mucous membranes moist Respiratory/Chest: normal breath sounds Cardiovascular: regularly irregular Abdomen: non distended Microbiology Date/Time Source Procedure Growth Status 01/08/17 08:00 Blood Blood Culture - Preliminary NO GROWTH AFTER 24 HOURS Resulted 01/08/17 07:50 Blood Blood Culture - Preliminary NO GROWTH AFTER 24 HOURS Resulted Laboratory Tests Test 01/10/17 07:45 White Blood Count 10.1 K/UL (4.8-10.8) Red Blood Count 3.61 M/UL (4.70-6.10) L Hemoglobin 8.5 G/DL (14.2-18.0) L Hematocrit 26.7 % (42.0-52.0) L Mean Corpuscular Volume 74 FL (80-99) L Mean Corpuscular Hemoglobin 23.6 PG (27.0-31.0) L Mean Corpuscular Hemoglobin Concent 31.8 G/DL (32.0-36.0) L Red Cell Distribution Width 17.4 % (11.6-14.8) H Platelet Count 347 K/UL (150-450) Mean Platelet Volume 7.3 FL (6.5-10.1) Neutrophils (%) (Auto) 39.0 % (45.0-75.0) L Lymphocytes (%) (Auto) 50.2 % (20.0-45.0) H Monocytes (%) (Auto) 5.5 % (1.0-10.0) Eosinophils (%) (Auto) 3.7 % (0.0-3.0) H Basophils (%) (Auto) 1.7 % (0.0-2.0) Lactate Dehydrogenase Pending Current Medications Medications (Trade) Dose Ordered Sig/Arianne Route PRN Reason Start Time Stop Time Status Last Admin Dose Admin Acetaminophen (Tylenol) 650 mg Q4H PRN ORAL fever 01/09/17 17:45 02/08/17 17:44 Al Hydroxide/Mg Hydroxide (Mylanta II) 30 ml Q6H PRN ORAL dyspepsia 01/09/17 17:45 02/08/17 17:44 Albuterol/ Ipratropium (DuoNeb 0.5-3(2.5)mg/3ml) 3 ml Q6HRT HHN 01/09/17 19:00 01/14/17 18:59 01/10/17 00:04 Bisacodyl (Dulcolax) 5 mg DAILYPRN PRN ORAL Constipation 01/09/17 18:00 02/08/17 17:59 Dextrose (Dextrose 50%) STAT PRN IV Hypoglycemia 01/09/17 17:45 02/08/17 17:44 Diphenhydramine HCl (Benadryl) 25 mg Q3H PRN IVP Itching 01/09/17 20:00 02/08/17 19:59 01/10/17 08:00 Folic Acid (Folate) 1 mg DAILY ORAL 01/10/17 09:00 02/09/17 08:59 01/10/17 08:00 Heparin Sodium (Porcine) (Heparin 5000 units/ml) 5,000 units EVERY 12 HOURS SUBQ 01/09/17 21:00 02/08/17 20:59 01/10/17 09:08 Hydromorphone HCl (Dilaudid) 2 mg EVERY 3 HOURS PRN IV pain 4-6 01/09/17 18:00 01/16/17 17:59 01/10/17 08:01 Hydromorphone HCl (Dilaudid) 3 mg BID PRN IVP Severe Pain (Pain Scale 7-10) 01/09/17 18:00 01/16/17 17:59 Hydromorphone HCl (Dilaudid) 4 mg Q4HR PRN ORAL Severe Breakthru Pain (>7) 01/09/17 21:00 01/16/17 20:59 Hydroxyurea (Hydrea) 3,500 mg DAILY ORAL 01/10/17 09:00 01/15/17 08:59 01/10/17 09:06 Ibuprofen (Motrin) 600 mg THREE TIMES A DAY PRN ORAL breakthrough pain 01/09/17 18:00 02/08/17 17:59 Levofloxacin (Levaquin) 500 mg DAILY ORAL 01/10/17 09:00 01/14/17 08:59 01/10/17 08:00 Lorazepam (Ativan 2mg/ml 1ml) 0.5 mg Q4H PRN IV For Anxiety 01/09/17 17:45 01/16/17 17:44 Ondansetron HCl (Zofran) 4 mg Q6H PRN IVP Nausea & Vomiting 01/09/17 17:45 02/08/17 17:44 Oxycodone HCl (OxyCONTIN) 20 mg EVERY 12 HOURS ORAL 01/09/17 21:00 01/16/17 20:59 01/10/17 09:06 Polyethylene Glycol (Miralax) 17 gm HSPRN PRN ORAL Constipation 01/09/17 17:45 02/08/17 17:44 Promethazine HCl/ Codeine (Phenergan with Codeine) 5 ml Q4H PRN ORAL For Cough 01/09/17 20:45 02/08/17 20:44 Sodium Chloride (0.45% NS 1000ml) 1,000 ml @ 75 mls/hr [id number] IV 01/09/17 18:00 02/08/17 17:59 01/10/17 04:20 Zolpidem Tartrate (Ambien) 5 mg HSPRN PRN ORAL Insomnia 01/09/17 17:45 02/08/17 17:44 JOCELYN AL M.D. Jan 10, 2017 09:19
[2017-01-10] MEDS ORDERED: LEVAQUIN500 MG ORAL (11:47)
[2017-01-10 12:00] VITALS: BP 110/60
[2017-01-10] MEDS ORDERED: 1/2 NS 1000ml IV ONE (13:14)
--- NOTE | 2017-01-10 16:09 | Pulmonology Progress Note ---
Assessment/Plan Problems: (1) ACS (acute coronary syndrome) (2) Sickle cell crisis Subjective Allergies: Coded Allergies: CEFTRIAXONE (Verified Allergy, Unknown, 04/20/16) Uncoded Allergies: CONTRAST (Adverse Reaction, Severe, Rash, 06/23/16) RADIOCONTRAST - RASH, ITCHING Objective Last 24 Hour Vital Signs Date Time Temp Pulse Resp B/P Pulse Ox O2 Delivery O2 Flow Rate FiO2 01/10/17 13:23 Room Air 21 01/10/17 13:23 Room Air 01/10/17 12:00 97.1 60 20 110/60 98 Room Air 01/10/17 11:49 97.1 01/10/17 08:10 98 Room Air 01/10/17 08:10 Room Air 21 01/10/17 08:00 97.5 54 20 109/47 98 Room Air 01/10/17 04:28 98.2 53 20 115/69 98 Room Air 01/10/17 00:14 64 16 99 Nasal Cannula 2.0 28 01/10/17 00:12 Nasal Cannula 2.0 28 01/10/17 00:12 98 Nasal Cannula 2.0 28 01/10/17 00:06 98.2 54 16 102/55 98 Room Air 01/10/17 00:05 62 16 97 Room Air 01/09/17 20:23 99.7 92 20 109/47 96 Room Air 01/09/17 19:45 Room Air 01/09/17 19:45 Room Air 01/09/17 18:00 98.4 61 20 118/60 96 Room Air 01/09/17 16:10 97.9 57 18 104/45 97 Room Air Intake and Output 01/09/17 01/10/17 19:00 07:00 Intake Total 470 ml 825 ml Balance 470 ml 825 ml Intake Oral 320 ml IV Total 150 ml 825 ml # Voids 3 3 Microbiology Date/Time Source Procedure Growth Status 01/08/17 08:00 Blood Blood Culture - Preliminary NO GROWTH AFTER 24 HOURS Resulted 01/08/17 07:50 Blood Blood Culture - Preliminary NO GROWTH AFTER 24 HOURS Resulted Laboratory Tests 01/10/17 07:45: White Blood Count 10.1, Red Blood Count 3.61L, Hemoglobin 8.5L, Hematocrit 26.7L , Mean Corpuscular Volume 74L, Mean Corpuscular Hemoglobin 23.6L, Mean Corpuscular Hemoglobin Concent 31.8L, Red Cell Distribution Width 17.4H, Platelet Count 347, Mean Platelet Volume 7.3, Neutrophils (%) (Auto) 39.0L, Lymphocytes (%) (Auto) 50.2H, Monocytes (%) (Auto) 5.5, Eosinophils (%) (Auto) 3.7H, Basophils (%) (Auto) 1.7, Lactate Dehydrogenase [Pending] MILIND KHAN Jan 10, 2017 16:09
[2017-01-11 07:41] LABS: LACTATE DEHYDROGENASE 320 U/L (135-225)
--- NOTE | 2017-01-11 14:27 | Discharge Summary ---
Discharge Summary Hospital Course Date of Admission Jan 06, 2017 at 16:20 Date of Discharge Jan 10, 2017 at 13:15 Admitting Diagnosis acute chest syndrome, sicke crisis HPI Burton Cope is a 21 year old male who was admitted on Jan 06, 2017 at 16:20 for Acute Chest Syndrome, Sickle Crisis Hospital Course dc summary #[id number] Discharge Medications Continued Medications: Cholecalciferol (Vitamin D3)* (Vitamin D*) 1,000 Unit Tablet 1000 UNIT ORAL DAILY, #30 TAB Fluticasone/Salmeterol (Advair Hfa 115-21 Mcg Inhaler) 12 Gm Hfa.aer.ad 2 PUFFS INH EVERY 12 HOURS, EA Folic Acid* (Folic Acid*) 1 Mg Tablet 1 MG ORAL DAILY, TAB Hydromorphone Hcl (Hydromorphone Hcl) 4 Mg Tablet 4 MG PO Q4HR PRN for Severe Breakthru Pain (>7), TAB Hydroxyurea* (Hydrea*) 500 Mg Capsule 3000 MG PO DAILY, CAP Ibuprofen* (Motrin*) 600 Mg Tablet 600 MG ORAL Q8H PRN for For Pain, #30 TAB 0 Refills Levofloxacin* (Levaquin*) 500 Mg Tablet 500 MG ORAL DAILY for 2 Days, TAB Oxycodone Hcl Er* (Oxycontin*) 20 Mg Tab.er.12h 20 MG ORAL EVERY 12 HOURS, TAB Discharge Condition Upon Discharge: stable Discharge Disposition Patient was discharged to Home (01) Discharge Diagnoses: Selvin (Miley)Giovanna NP Jan 11, 2017 14:27
--- NOTE | 2017-01-12 00:01 | Discharge Summary 2 SIG ---
DATE OF ADMISSION: 01/06/2017 DATE OF DISCHARGE: 01/10/2017 The patient is admitted under Dr. Caicedo. REASON FOR ADMISSION: The patient is a 21-year-old male, with a history of sickle cell crisis, presented to emergency room with a complaint of chest pain. The pain was reported as a sharp, chest, 10/10 on a scale 1 to 10, and nonradiating. No pain with deep breathing. The patient denied fever. Denied chills. The patient denied cough and congestion. The patient had in the past acute chest syndrome. Dr. Davenport is the patient's wall taper. Workup in the emergency room revealed low-grade fever of 99.7 degrees and tachycardia 103. Blood pressure is stable. Pulse oximetry was stable on the room air. WBC was 21.4, hemoglobin 10.1, and hematocrit 29.8. Lactic acid 1.9. Total bilirubin 2.8. Direct bilirubin 0.8. AST 55 and ALT 48. Stable alkaline phosphatase. CK 39. Troponin negative. Urinalysis negative for evidence of urinary tract infection. Chest x-ray revealed sinus tachycardia. No acute ischemic changes. EKG revealed increased vascular marking in the left and infrahilar areas. No acute cardiopulmonary disease. Venous duplex of bilateral lower extremity was negative for DVT. The patient was admitted for further management. ADMITTING DIAGNOSES: Includes: 1. Acute chest syndrome. 2. Sickle cell disease. 3. Sickle cell crisis. 4. Transaminitis. 5. Anemia. 6. Leukocytosis. HOSPITAL COURSE: The patient was admitted to telemetry floor initially. Supplemental oxygen and pulmonary toilet provided as needed. Pain management provided. Pain specialist followed. The patient was on the IV fluids. The patient was started on empiric antibiotics. ID followed. Urinalysis negative. Blood culture negative, drawn twice on 01/06/2017 and 01/08/2017 and both negative. Urine tox screen positive for opiates, which were given in the emergency department. A CT chest was canceled. Ventilation/perfusion scan was negative. Venous duplex of bilateral lower extremity was negative. Leukocytosis slowly resolved. DVT prophylaxis provided. The patient was working with physical and occupational therapy. Bowel regimen instituted. Folic acid resumed. LDH was trending down. LFTs were trending down. Hemoglobin remained stable at 8.5 and hematocrit 26.7. Leukocytosis resolved prior to discharge. The patient was seen by traffic rate computer and according to traffic rate computer, chest pain likely musculoskeletal. Access Tech did not see any ongoing cardiac issue and cleared the patient for discharge. The patient was stable for discharge. DISCHARGE DIAGNOSES: Includes: 1. Acute chest syndrome. 2. Atypical chest pain likely of musculoskeletal origin. 3. Sickle cell disease and sickle cell crisis. 4. Transaminitis. 5. Anemia. 6. Leukocytosis. DISCHARGE MEDICATIONS: See medication reconciliation list. DISCHARGE INSTRUCTIONS: The patient is discharged home. Follow up with the primary medical doctor and wall taper, Dr. Davenport next week. Ranjith Caicedo M.D. I have been assigned to dictate discharge summary on this account and I was not involved in the patient's management. Giovanna [facility] park [facility] centerGavino NJeromePJerome DR: DALIA JOB#: [id number] CC:
== END 2017-01-10 13:15 | disposition home or self-care (01) | DRG 662 ==
LOC: EMR 15:40 → 2E 16:20 → EDBEDREQ 17:03 → 4E 01-09 17:07
DX: D57.01 Hb-SS disease with acute chest syndrome (principal); M87.88 Other osteonecrosis, other site; R74.0 Nonspecific elevation of levels of transaminase and lactic acid dehydrogenase [LDH]; R07.89 Other chest pain; D64.9 Anemia, unspecified; J45.909 Unspecified asthma, uncomplicated; Z88.1 Allergy status to other antibiotic agents; Z91.041 Radiographic dye allergy status
CPT/HCPCS: 36415; 71010; 78579; 78580; 80053; 80300; 81003; 82248; 82550; 82553; 83605; 83615; 83735; 84100; 84439; 84443; 84481; 84484; 85007; 85025; 85044; 85610; 85651; 85730; 86140; 86850; 86900; 86901; 87040; 93005; 93970; 94640; 94664; 94760; A9503; J2405; J7620

== ENCOUNTER → 2017-03-14 | Emergency (ER) | payer MEDICAID ==
[~2017-03-14] VITALS: Ht 167.6 cm; Wt 99.3 kg
[~2017-03-14] MED LIST changes: +HYDROmorphone 1mg/ml Carpuject IVP ONE; +LEVAQUIN500 MG ORAL
[2017-03-14 17:30] VITALS: BP 112/67
--- NOTE | 2017-03-14 17:32 | Emergency Room Report ---
History of Present Illness General Chief Complaint: Pain Source: Patient Present Illness HPI 21-year-old male presents emergency department complaining of 8/10 in severity pain to the bilateral knees and in his chest since . Patient states he has a history of sickle cell disease. Patient states he took his by mouth Dilaudid at noon today with no relief. Patient states that he has been unable to leave his pain since onset 5 days ago. Patient denies fevers, chills, cough , shortness of breath, abdominal pain, nausea, vomiting. Patient states he did not take his hydroxyurea today as he forgot. Patient also reports a history of low hemoglobin and states his last hemoglobin was approximately 10.Denies CP, Palpitations, LOC, AMS, dizziness, Changes in Vision, Sensation, paresthesias, or a sudden severe headache. Allergies: Coded Allergies: CEFTRIAXONE (Verified Allergy, Unknown, 04/20/16) Uncoded Allergies: CONTRAST (Adverse Reaction, Severe, Rash, 06/23/16) RADIOCONTRAST - RASH, ITCHING Patient History Past Medical History: see triage record Past Surgical History: none Pertinent Family History: none Immunizations: UTD Reviewed Nursing Documentation: PMH: Agreed, PSxH: Agreed Nursing Documentation-PMH Past Medical History: No History, Except For Hx Asthma: Yes Hx Cancer: No Hx Gastrointestinal Problems: Yes Review of Systems All Other Systems: negative except mentioned in HPI Physical Exam Vital Signs Date Time Temp Pulse Resp B/P Pulse Ox O2 Delivery O2 Flow Rate FiO2 03/14/17 16:58 98.8 62 18 112/67 97 Room Air Sp02 EP Interpretation: reviewed, normal General Appearance: no apparent distress, alert, GCS 15, non-toxic Head: normocephalic, atraumatic Eyes: bilateral eye PERRL, bilateral eye normal inspection ENT: hearing 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, normal pharynx, no angioedema, normal voice Neck: full range of motion, supple/symm/no masses Respiratory: lungs clear, normal breath sounds, no respiratory distress, no accessory muscle use, no wheezing, speaking full sentences, other - reproducibel anterior chest ttp. Cardiovascular #1: regular rate, rhythm, normal capillary refill Gastrointestinal: non tender, soft, no guarding, no rebound Genitourinary: normal inspection Musculoskeletal: back normal, gait/station normal, normal range of motion, tender - TTP to the Bilateral knees, no erythema, mild swelling, no increased temperature to palpation, bruises or deformities noted. reproducible anterior chest ttp. Neurologic: alert, oriented x3, responsive, motor strength/tone normal, sensory intact, speech normal Psychiatric: judgement/insight normal, memory normal, mood/affect normal Skin: normal color, no rash, warm/dry, well hydrated Medical Decision Making JUAN A Attestation Dr. Cox is my supervising Physician whom patient management has been discussed with. Diagnostic Impression: Primary Impression: Sickle cell crisis Additional Impression: Knee pain, bilateral Qualified Codes: M25.561 - Pain in right knee; M25.562 - Pain in left knee ER Course 21-year-old male presents emergency department complaining of 8/10 in severity pain to the bilateral knees and in his chest since . Patient states he has a history of sickle cell disease. Patient states he took his by mouth Dilaudid at noon today with no relief. Patient states that he has been unable to leave his pain since onset 5 days ago. Patient denies fevers, chills, cough , shortness of breath, abdominal pain, nausea, vomiting. Patient states he did not take his hydroxyurea today as he forgot. Patient also reports a history of low hemoglobin and states his last hemoglobin was approximately 10.Denies CP, Palpitations, LOC, AMS, dizziness, Changes in Vision, Sensation, paresthesias, or a sudden severe headache. Ddx considered but are not limited to Sickle cell crisis, Infection, Cardiac pathology, DVT, Fracture, Dislocation Vital signs: are WNL, pt. is afebrile H&PE are most consistent with Sickle cell crisis ORDERS: -CBC: elevated WBC's at 17.9 , hgb 9.9 -CMP:see results attached. -Reticulocyte count 8.0 - EK BPM Sinus anibal - no acute ST changes reviewed by Dr. oCx , this interpretation was scribed by JUAN A Zavala -CXR: increased left arielle-hilar vasculature, no changes from previous imaging, No consolidation, effusion, pneumothorax or acute cardiopulmonary findings per soft read in ED by Dr. Richter ED INTERVENTIONS: - 2 liters NS for hydration. - 1mg Dilaudid IV for pain -2mg Dilaudid IV for pain DISPOSITION: at this time pt. will be admitted to Dr. Amezcua for intractable pain. and will be transferred. Dr. Amezcua agreed to admit the pt. and to continue pt. care management. Labs Test 03/14/17 18:35 White Blood Count 17.2 K/UL (4.8-10.8) Red Blood Count 3.83 M/UL (4.70-6.10) Hemoglobin 9.9 G/DL (14.2-18.0) Hematocrit 30.2 % (42.0-52.0) Mean Corpuscular Volume 79 FL (80-99) Mean Corpuscular Hemoglobin 25.7 PG (27.0-31.0) Mean Corpuscular Hemoglobin Concent 32.7 G/DL (32.0-36.0) Red Cell Distribution Width 18.8 % (11.6-14.8) Platelet Count 317 K/UL (150-450) Mean Platelet Volume 7.1 FL (6.5-10.1) Neutrophils (%) (Auto) % (45.0-75.0) Lymphocytes (%) (Auto) % (20.0-45.0) Monocytes (%) (Auto) % (1.0-10.0) Eosinophils (%) (Auto) % (0.0-3.0) Basophils (%) (Auto) % (0.0-2.0) Differential Total Cells Counted 100 Neutrophils % (Manual) 69 % (45-75) Lymphocytes % (Manual) 24 % (20-45) Monocytes % (Manual) 4 % (1-10) Eosinophils % (Manual) 1 % (0-3) Basophils % (Manual) 1 % (0-2) Band Neutrophils 1 % (0-8) Nucleated Red Blood Cells 21 /100 WBC Platelet Estimate Adequate Platelet Morphology Normal Hypochromasia 2+ Anisocytosis 2+ Target Cells 2+ Reticulocyte Count 8.0 % (0.0-2.0) Sodium Level 139 mEQ/L (135-145) Potassium Level 4.7 mEQ/L (3.4-4.9) Chloride Level 101 mEQ/L (98-107) Carbon Dioxide Level 22 mEQ/L (20-30) Anion Gap 16 (5-15) Blood Urea Nitrogen 6 mg/dL (7-23) Creatinine 0.5 mg/dL (0.7-1.2) Estimat Glomerular Filtration Rate > 60 mL/min (>60) Glucose Level 112 mg/dL (74-106) Calcium Level 9.8 mg/dL (8.6-10.2) Total Bilirubin 1.4 mg/dL (0.0-1.2) Direct Bilirubin 0.3 mg/dL (0.1-0.3) Aspartate Amino Transf (AST/SGOT) 39 U/L (5-40) Alanine Aminotransferase (ALT/SGPT) 43 U/L (3-41) Alkaline Phosphatase 119 U/L (40-129) Total Protein 8.1 g/dL (6.6-8.7) Albumin 5.0 g/dL (3.5-5.2) Globulin 3.1 g/dL Albumin/Globulin Ratio 1.6 (1.0-2.7) EKG Diagnostic Results EP Interpretation: Dr. Cox Rate: bradycardiac - 59 BPM Rhythm: NSR ST Segments: no acute changes ASA given to the pt in ED: No PA Scribe Text 54 BPM Sinus anibal - no acute ST changes reviewed by Dr. Cox , this interpretation was scribed by JUAN A Zavala Last Vital Signs Date Time Temp Pulse Resp B/P Pulse Ox O2 Delivery O2 Flow Rate FiO2 03/14/17 16:58 98.8 62 18 112/67 97 Room Air Disposition: ADMITTED INPATIENT Condition: Serious Signed Out To: Dr. Richter awaiting transfer Jacqueline Zavala Mar 14, 2017 17:32
[2017-03-14 18:55] LABS: MEAN CORPUSCULAR HEMOGLOBIN 25.7 PG (27.0-31.0); MEAN CORPUSCULAR HGB CONC 32.7 G/DL (32.0-36.0); MEAN CORPUSCULAR VOLUME 79 FL (80-99); MEAN PLATELET VOLUME 7.1 FL (6.5-10.1); PLATELET COUNT 317 K/UL (150-450); RED BLOOD COUNT 3.83 M/UL (4.70-6.10); RED CELL DISTRIBUTION WIDTH 18.8 % (11.6-14.8); WHITE BLOOD COUNT 17.2 K/UL (4.8-10.8)
[2017-03-14 19:07] LABS: ALANINE AMINOTRANSFERASE 43 U/L (3-41); ALBUMIN/GLOBULIN RATIO 1.6 (1.0-2.7); ANION GAP 16 (5-15); ASPARTATE AMINO TRANSFERASE 39 U/L (5-40); CALCIUM 9.8 mg/dL (8.6-10.2); CARBON DIOXIDE 22 mEQ/L (20-30); CHLORIDE 101 mEQ/L (98-107); CREATININE 0.5 mg/dL (0.7-1.2); GLOMERULAR FILTRATION RATE > 60 mL/min (>60); HEMOLYSIS 32; POTASSIUM 4.7 mEQ/L (3.4-4.9); SODIUM 139 mEQ/L (135-145); TOTAL PROTEIN 8.1 g/dL (6.6-8.7)
[2017-03-14 19:15] VITALS: BP 120/68
[2017-03-14 19:28] LABS: BILIRUBIN,DIRECT 0.3 mg/dL (0.1-0.3)
[2017-03-14 20:26] LABS: ANISOCYTOSIS 2+; BAND NEUTROPHILS % (MANUAL) 1 % (0-8); BASOPHILS % (MANUAL) 1 % (0-2); EOSINOPHILS % (MANUAL) 1 % (0-3); LYMPHOCYTES % (MANUAL) 24 % (20-45); NEUTROPHILS % (MANUAL) 69 % (45-75); NUCLEATED RED BLOOD CELLS 21 /100 WBC; TOTAL CELLS COUNTED 100
[2017-03-14 20:27] LABS: HYPOCHROMASIA 2+; PLATELET ESTIMATE ADEQUATE; PLATELET MORPHOLOGY NORMAL; TARGET CELLS 2+
[2017-03-14 20:30] VITALS: BP 127/75
[2017-03-14 20:50] VITALS: BP 127/75
--- NOTE | 2017-03-15 10:55 | Diagnostic Imaging Report ---
Indication: Chest pain Technique: One view of the chest Comparison: 61.17 Findings: Interim resolution of previously demonstrated left infrahilar atelectasis or consolidation. There is mild central bronchial wall thickening. Lungs and pleural spaces are otherwise clear. The heart size is normal. Impression: Possible bronchitis changes No acute process otherwise
== END | disposition short-term general hospital (02) ==
LOC: EMR 18:35
DX: D57.00 Hb-SS disease with crisis, unspecified (principal); M25.561 Pain in right knee; M25.562 Pain in left knee; R07.9 Chest pain, unspecified; J45.909 Unspecified asthma, uncomplicated; Z88.8 Allergy status to other drugs, medicaments and biological substances; Z91.041 Radiographic dye allergy status
CPT/HCPCS: 36415; 71010; 80053; 82248; 85007; 85025; 85044; 93005; 96360; 96361; 96374; 96375; 99285; J1170

== ENCOUNTER 2018-06-11 10:50 | Inpatient (IN) | payer MEDICAID ==
[~2018-06-11] VITALS: Ht 167.6 cm; Wt 116.2 kg
[~2018-06-11 10:50] MED LIST changes: -HYDROmorphone 1mg/ml Carpuject IVP ONE
[2018-06-11] MEDS ORDERED: ASPIRIN81 MG ORAL (11:05)
--- NOTE | 2018-06-11 11:23 | Emergency Room Report ---
History of Present Illness General Chief Complaint: Pain Source: Patient Present Illness HPI Patient presents with 2 days of increased pain in his chest and left shoulder and neck. He states this is how his sickle cell crisis occurs. He also had a temperature 101.9 yesterday. He's not been vomiting. The pain is 9/10 and aching. No cough, dysuria, rashes. No ND. No headache. Pain radiates from shoulder to neck. He states usually hgb 8.9. No recent transfusions. 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 He's had bacteremia in the past as well as sepsis. No dyspnea, palpitations. Allergies: Coded Allergies: CEFTRIAXONE (Verified Allergy, Unknown, 04/20/16) Uncoded Allergies: CONTRAST (Adverse Reaction, Severe, Rash, 06/23/16) RADIOCONTRAST - RASH, ITCHING Patient History Past Medical History: see triage record Social History: Denies: smoking, alcohol use, drug use Social History Narrative at home Reviewed Nursing Documentation: PMH: Agreed; PSxH: Agreed Nursing Documentation-PMH Hx Asthma: Yes Hx Cancer: No Hx Gastrointestinal Problems: Yes Review of Systems All Other Systems: negative except mentioned in HPI Physical Exam Vital Signs Date Time Temp Pulse Resp B/P (MAP) Pulse Ox O2 Delivery O2 Flow Rate FiO2 06/11/18 10:59 100.6 83 18 123/66 97 Room Air Sp02 EP Interpretation: reviewed, normal General Appearance: well appearing, no apparent distress, GCS 15 Head: normocephalic Eyes: bilateral eye PERRL, bilateral eye conjunctivae pale ENT: moist mucus membranes Neck: supple Respiratory: lungs clear, normal breath sounds Cardiovascular #1: regular rate, rhythm Cardiovascular #2: 2+ radial (R) Gastrointestinal: normal inspection, normal bowel sounds, non tender, no mass, non-distended Musculoskeletal: back normal, gait/station normal, normal range of motion - with some tenderness with PROM of L shoulder Neurologic: alert, oriented x3, 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 Psychiatric: depressed affect Skin: pallor Medical Decision Making Diagnostic Impression: Primary Impression: Sickle cell crisis Additional Impressions: Left shoulder pain Qualified Codes: M25.512 - Pain in left shoulder Fever Qualified Codes: R50.9 - Fever, unspecified ER Course Patient presents with chest left arm pain. Differential includes acute microinfarction, acute coronary syndrome, sickle cell crisis, viral infection, other occult infection, septic joint (L shoulder) amongst others. The fact he has a fever he needs to be evaluated for possible infection and sepsis. Patient will have EKG, chest x-ray and labs including blood culture and lactate reticulocyte count. Patient retreated with IV hydration. As he has difficulty IV access he will get be given a dose of IM analgesia initially. CXR perihilar increased hernandez. WBC normal, hgb 8.6. Retic high. LDH elevated. UA clear. Lactate normal. No source of fever identified. No antibiotics begun. Doubt pulmonary source as not cough or dyspnea. Improved with hydration and analgesia. Admit med Dr. Wesley. Laboratory Tests Test 06/11/18 12:20 White Blood Count 7.5 K/UL (4.8-10.8) Red Blood Count 2.87 M/UL (4.70-6.10) L Hemoglobin 8.6 G/DL (14.2-18.0) L Hematocrit 26.9 % (42.0-52.0) L Mean Corpuscular Volume 94 FL (80-99) Mean Corpuscular Hemoglobin 29.9 PG (27.0-31.0) Mean Corpuscular Hemoglobin Concent 31.9 G/DL (32.0-36.0) L Red Cell Distribution Width 18.5 % (11.6-14.8) H Platelet Count 357 K/UL (150-450) Mean Platelet Volume 7.2 FL (6.5-10.1) Neutrophils (%) (Auto) 65.5 % (45.0-75.0) Lymphocytes (%) (Auto) 30.8 % (20.0-45.0) Monocytes (%) (Auto) 2.7 % (1.0-10.0) Eosinophils (%) (Auto) 0.0 % (0.0-3.0) Basophils (%) (Auto) 1.0 % (0.0-2.0) Reticulocyte Count 3.9 % (0.0-2.0) H Prothrombin Time 11.4 SEC (9.30-11.50) Prothrombin Time INR 1.1 (0.9-1.1) PTT 24 SEC (23-33) Urine Color Pale yellow Urine Appearance Clear Urine pH 7 (4.5-8.0) Urine Specific [place] 1.005 (1.005-1.035) Urine Protein Negative (NEGATIVE) Urine Glucose (UA) Negative (NEGATIVE) Urine Ketones Negative (NEGATIVE) Urine Blood Negative (NEGATIVE) Urine Nitrite Negative (NEGATIVE) Urine Bilirubin Negative (NEGATIVE) Urine Urobilinogen Normal MG/DL (0.0-1.0) Urine Leukocyte Esterase Negative (NEGATIVE) Sodium Level 133 MMOL/L (136-145) L Potassium Level 5.1 MMOL/L (3.5-5.1) Chloride Level 102 MMOL/L (98-107) Carbon Dioxide Level 25 MMOL/L (21-32) Anion Gap 6 mmol/L (5-15) Blood Urea Nitrogen 8 mg/dL (7-18) Creatinine 0.6 MG/DL (0.55-1.30) Estimate Glomerular Filtration Rate > 60 mL/min (>60) Glucose Level 118 MG/DL (74-106) H Lactic Acid Level 1.40 mmol/L (0.4-2.0) Calcium Level 9.4 MG/DL (8.5-10.1) Total Bilirubin 0.8 MG/DL (0.2-1.0) Aspartate Amino Transferase (AST) 60 U/L (15-37) H Alanine Aminotransferase (ALT) 67 U/L (12-78) Alkaline Phosphatase 146 U/L (46-116) H Lactate Dehydrogenase 400 U/L (81-234) H Total Creatine Kinase 79 U/L (26-308) Troponin I 0.000 ng/mL (0.000-0.056) Total Protein 10.1 G/DL (6.4-8.2) H Albumin 4.1 G/DL (3.4-5.0) Globulin 6.0 g/dL Albumin/Globulin Ratio 0.7 (1.0-2.7) L Lipase 67 U/L (73-393) L Rhythm Strip Diag. Results EP Interpretation: yes Rhythm: NSR, no PVC's, no ectopy Chest X-Ray Diagnostic Results Chest X-Ray Diagnostic Results : Chest X-Ray Ordered: Yes # of Views/Limited/Complete: 1 View Indication: Other EP Interpretation: Yes Interpretation: no effusion, no pneumothorax, other - perihilar increase without infiltrates Impression: Other Electronically Signed by: Yasmany Gonzalez MD Last Vital Signs Date Time Temp Pulse Resp B/P (MAP) Pulse Ox O2 Delivery O2 Flow Rate FiO2 06/11/18 21:00 Room Air 06/11/18 20:00 99.3 52 20 144/86 (105 96 Status: improved Disposition: ADMITTED INPATIENT Condition: Serious Yasmany Gonzalez MD Jun 11, 2018 11:23
[2018-06-11 12:39] LABS: HEMATOCRIT 26.9 % (42.0-52.0); HEMOGLOBIN 8.6 G/DL (14.2-18.0); LYMPHOCYTES % (AUTO) 30.8 % (20.0-45.0); MEAN CORPUSCULAR VOLUME 94 FL (80-99); MONOCYTES % (AUTO) 2.7 % (1.0-10.0); NEUTROPHILS % (AUTO) 65.5 % (45.0-75.0); PLATELET COUNT 357 K/UL (150-450); RED BLOOD COUNT 2.87 M/UL (4.70-6.10); RED CELL DISTRIBUTION WIDTH 18.5 % (11.6-14.8); WHITE BLOOD COUNT 7.5 K/UL (4.8-10.8)
[2018-06-11 12:44] LABS: INR 1.1 (0.9-1.1)
[2018-06-11 12:47] LABS: ANION GAP 6 mmol/L (5-15); BLOOD UREA NITROGEN 8 mg/dL (7-18); CALCIUM 9.4 MG/DL (8.5-10.1); CARBON DIOXIDE 25 MMOL/L (21-32); CHLORIDE 102 MMOL/L (98-107); CREATININE 0.6 MG/DL (0.55-1.30); POTASSIUM 5.1 MMOL/L (3.5-5.1); SODIUM 133 MMOL/L (136-145)
[2018-06-11 12:51] LABS: ALANINE AMINOTRANSFERASE 67 U/L (12-78); ALBUMIN 4.1 G/DL (3.4-5.0); ALBUMIN/GLOBULIN RATIO 0.7 (1.0-2.7); ALKALINE PHOSPHATASE 146 U/L (46-116); ASPARTATE AMINO TRANSFERASE 60 U/L (15-37); BILIRUBIN,TOTAL 0.8 MG/DL (0.2-1.0); CREATINE KINASE 79 U/L (26-308); LACTATE DEHYDROGENASE 400 U/L (81-234)
[2018-06-11 12:55] VITALS: BP 117/65
[2018-06-11 13:07] LABS: APPEARANCE,URINE CLEAR; BILIRUBIN, URINE NEGATIVE (NEGATIVE); COLOR,URINE PALE YELLOW; GLUCOSE, URINE (UA) NEGATIVE (NEGATIVE); KETONES,URINE NEGATIVE (NEGATIVE); LEUKOCYTE ESTERASE ,URINE NEGATIVE (NEGATIVE); NITRITE,URINE NEGATIVE (NEGATIVE); PH,URINE 7 (4.5-8.0); PROTEIN,URINE NEGATIVE (NEGATIVE); UROBILINOGEN,URINE NORMAL MG/DL (0.0-1.0)
--- NOTE | 2018-06-11 13:13 | Diagnostic Imaging Report ---
EXAM: XR Chest, 1 View CLINICAL HISTORY: Chest pain TECHNIQUE: Frontal view of the chest. COMPARISON: Chest x-ray dated 03/14/17 FINDINGS: Lungs: Mildly increased perihilar interstitial markings. The lungs are otherwise clear without focal consolidation. Pleural space: Unremarkable. The costophrenic angles are sharp. No visible pneumothorax. Heart: Unremarkable. No cardiomegaly. Mediastinum: Unremarkable. Bones/joints: Unremarkable. Tubes, lines and devices: EKG leads overlie the thorax. IMPRESSION: Mildly increased perihilar interstitial markings. There is nonspecific and may suggest mild bronchitis area no focal consolidation.
[2018-06-11] MEDS ORDERED: LORazepam Inj 2mg/ml 1ml IV PRN (15:45)
[2018-06-11] MEDS ORDERED: Mylanta II UD 30ml ORAL PRN (15:45)
[2018-06-11] MEDS ORDERED: Miralax 17gm pkt ORAL PRN (15:45)
[2018-06-11] MEDS ORDERED: Morphine Sulfate 2mg/ml Inj IVP PRN (15:45)
[2018-06-11] MEDS ORDERED: Morphine Sulfate 4mg/ml Inj (IV/IM USE ONLY) IVP PRN (15:45)
[2018-06-11] MEDS ORDERED: Zolpidem 5mg tab ORAL PRN (15:45)
[2018-06-11 16:00] VITALS: BP 103/55
[2018-06-11] MEDS: HYDROmorphone 1mg/ml Carpuject IVP PRN ×2 (19:48→23:49)
[2018-06-11 20:00] VITALS: BP 144/86
--- NOTE | 2018-06-11 20:07 | General Progress Note ---
Assessment/Plan Assessment/Plan (1) Sickle cell disease (2) Sickle cell crisis (3) Intractable pain Pt will be started on Dilaudid 1mg IV Q4H PRN severe pain and Oxycontin 30mg BID. D/w Dr. Tucker and he concurred. Thank you. Subjective Date patient seen: Jun 11, 2018 Time patient seen: 07:00 - pm Constitutional: Reports: chills, weakness HEENT: Reports: no symptoms Cardiovascular: Reports: no symptoms Respiratory: Reports: no symptoms Gastrointestinal/Abdominal: Reports: no symptoms Genitourinary: Reports: no symptoms Neurologic/Psychiatric: Reports: tingling, weakness Endocrine: Reports: no symptoms Hematologic/Lymphatic: Reports: no symptoms Allergies: Coded Allergies: CEFTRIAXONE (Verified Allergy, Unknown, 04/20/16) Uncoded Allergies: CONTRAST (Adverse Reaction, Severe, Rash, 06/23/16) RADIOCONTRAST - RASH, ITCHING Subjective Patient is a known patient from prior admission admitted foe sickle cell crisis. Taking Oxycontin 20mg BID and Dilaudid 8mg Q4-6H. Objective Last 24 Hour Vital Signs Date Time Temp Pulse Resp B/P (MAP) Pulse Ox O2 Delivery O2 Flow Rate FiO2 06/11/18 16:00 98.8 59 17 103/55 (71) 97 06/11/18 14:13 Room Air 06/11/18 13:25 100.6 60 14 117/65 98 Room Air 06/11/18 12:55 100.6 60 14 117/65 98 Room Air 06/11/18 12:19 100.6 06/11/18 10:59 100.6 83 18 123/66 97 Room Air Laboratory Tests 06/11/18 12:20: White Blood Count 7.5, Red Blood Count 2.87L, Hemoglobin 8.6L, Hematocrit 26.9L , Mean Corpuscular Volume 94, Mean Corpuscular Hemoglobin 29.9, Mean Corpuscular Hemoglobin Concent 31.9L, Red Cell Distribution Width 18.5H, Platelet Count 357, Mean Platelet Volume 7.2, Neutrophils (%) (Auto) 65.5, Lymphocytes (%) (Auto) 30.8, Monocytes (%) (Auto) 2.7, Eosinophils (%) (Auto) 0.0, Basophils (%) (Auto) 1.0, Reticulocyte Count 3.9H, Prothrombin Time 11.4, Prothromb Time International Ratio 1.1, Activated Partial Thromboplast Time 24, Urine Color Pale yellow, Urine Appearance Clear, Urine pH 7, Urine Specific [place] 1.005, Urine Protein Negative, Urine Glucose (UA) Negative, Urine Ketones Negative, Urine Blood Negative, Urine Nitrite Negative, Urine Bilirubin Negative, Urine Urobilinogen Normal, Urine Leukocyte Esterase Negative, Sodium Level 133L, Potassium Level 5.1, Chloride Level 102, Carbon Dioxide Level 25, Anion Gap 6, Blood Urea Nitrogen 8, Creatinine 0.6, Estimat Glomerular Filtration Rate > 60, Glucose Level 118H, Lactic Acid Level 1.40, Calcium Level 9.4, Total Bilirubin 0.8, Aspartate Amino Transf (AST/SGOT) 60H, Alanine Aminotransferase (ALT/SGPT) 67, Alkaline Phosphatase 146H, Lactate Dehydrogenase 400H, Total Creatine Kinase 79, Troponin I 0.000, Total Protein 10.1H, Albumin 4.1, Globulin 6.0, Albumin/Globulin Ratio 0.7L, Lipase 67L Height (Feet): 5 Height (Inches): 6.00 Weight (Pounds): 256 General Appearance: no apparent distress, alert EENT: PERRL/EOMI, normal ENT inspection Neck: non-tender, normal alignment Cardiovascular: normal rate, regular rhythm Respiratory/Chest: decreased breath sounds Abdomen: non tender, soft Extremities: non-tender Edema: no edema noted Arm (L), no edema noted Arm (R), no edema noted Leg (L), no edema noted Leg (R), no edema noted Pedal (L), no edema noted Pedal (R), no edema noted Generalized Neurologic: alert, oriented x 3 Skin: warm/dry Orlnado Oglesby Jun 11, 2018 20:07
[2018-06-11] MEDS: oxyCONTIN 10mg tab ORAL SCH (20:31)
[2018-06-11] MEDS: Heparin 5000 units/ml inj SUBQ SCH (20:35)
[2018-06-12] VITALS: BP 122/56
[2018-06-12] MEDS: HYDROmorphone 1mg/ml Carpuject IVP PRN ×6 (03:51→21:34)
[2018-06-12 04:00] VITALS: BP 107/52
[2018-06-12 08:00] VITALS: BP 120/59
[2018-06-12] MEDS: oxyCONTIN 10mg tab ORAL SCH ×2 (08:10→20:26)
[2018-06-12] MEDS: Heparin 5000 units/ml inj SUBQ SCH ×2 (08:12→20:26)
[2018-06-12 11:24] LABS: HEMATOCRIT 24.9 % (42.0-52.0); HEMOGLOBIN 8.3 G/DL (14.2-18.0); MEAN CORPUSCULAR VOLUME 96 FL (80-99); PLATELET COUNT 336 K/UL (150-450); RED BLOOD COUNT 2.59 M/UL (4.70-6.10); RED CELL DISTRIBUTION WIDTH 19.3 % (11.6-14.8); WHITE BLOOD COUNT 16.6 K/UL (4.8-10.8)
--- NOTE | 2018-06-12 11:33 | Consultation ---
Consult Note Assessment/Plan Hematology Consult REQ MD: Tevin Weiner RFC: SS crisis DOS 06/11/18 ID: 22 y old male with 2 days of increased pain in his chest and left shoulder neck. He states this is how his sickle cell crisis occurs. He also had a temperature 101.9 yesterday. He's not been vomiting. The pain is 9/10 and aching. No cough, dysuria, rashes. No ND. No headache. Pain radiates from shoulder to neck. He states usually hgb 8.9. No recent transfusions. 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 He's had bacteremia in the past as well as sepsis. I've seen him before and this is presentation of crisis. Allergies: CEFTRIAXONE (Verified Allergy, Unknown, 04/20/16) CONTRAST (Adverse Reaction, Severe, Rash, 06/23/16) RADIOCONTRAST - RASH, ITCHING Past Medical History: see triage record Social History: Denies: smoking, alcohol use, drug use Social History Narrative at home Reviewed Nursing Documentation: PMH: Agreed; PSxH: Agreed Hx Asthma: Yes Hx Cancer: No Hx Gastrointestinal Problems: Yes All Other Systems: negative except mentioned in HPI PE: Vital Signs Last 24 Hour Vital Signs Date Time Temp Pulse Resp B/P (MAP) Pulse Ox O2 Delivery O2 Flow Rate FiO2 06/12/18 09:00 Room Air 06/12/18 08:00 98.2 61 20 120/59 (79) 98 06/12/18 04:00 98.6 54 20 107/52 (70) 96 06/12/18 00:00 99.1 63 20 122/56 (78) 97 06/11/18 21:00 Room Air 06/11/18 20:00 99.3 52 20 144/86 (105) 96 06/11/18 16:00 98.8 59 17 103/55 (71) 97 06/11/18 14:13 Room Air 06/11/18 13:25 100.6 60 14 117/65 98 Room Air 06/11/18 12:55 100.6 60 14 117/65 98 Room Air 06/11/18 12:19 100.6 Gen: well appearing, GCS 15 Head: normocephalic Eyes: bilateral eye PERRL, bilateral eye conjunctivae pale ENT: moist mucus membranes Neck: supple Respiratory: lungs clear, normal breath sounds Cardiovascular: 2+ radial (R), regular rate, rhythm GI: normal inspection, normal bowel sounds, non tender, no mass, non-distended Musculoskeletal: back normal, gait/station normal, normal range of motion - with some tenderness with PROM of L shoulder Neurologic: alert, oriented x3, 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 Psychiatric: depressed affect Skin: pallor ASSESSMENT/RECS: 1. 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 --> Presented in sickle crisis. on hydrea, opioids --> retic daily which has been ordered --> cbc has been reviewed 2. Anemia, secondary to sickle cell disease/B thalassemia 3. Leukocytosis, secondary to reactive process, potentially sepsis as well as on antibiotics. --> hydration and analgesia. 4. Thrombocytosis, potentially secondary to reactive process. 5. Acute chest does have evidence of pna --> s/p antibiotics 6. Hyperbilirubinemia, potentially secondary to minor hemolysis. 7. Reticulocytosis consisting with sickle cell crisis. 8. Left should pain -- has been reviewed Appreciate consultation! Lewis Olmedo MD Jun 12, 2018 11:33
[2018-06-12 12:00] VITALS: BP 116/64
[2018-06-12 12:01] LABS: ALANINE AMINOTRANSFERASE 63 U/L (12-78); ALBUMIN/GLOBULIN RATIO 0.7 (1.0-2.7); ALKALINE PHOSPHATASE 136 U/L (46-116); ANION GAP 8 mmol/L (5-15); ASPARTATE AMINO TRANSFERASE 32 U/L (15-37); BILIRUBIN,TOTAL 0.8 MG/DL (0.2-1.0); BLOOD UREA NITROGEN 7 mg/dL (7-18); CALCIUM 9.3 MG/DL (8.5-10.1); CARBON DIOXIDE 24 MMOL/L (21-32); CHLORIDE 103 MMOL/L (98-107); CREATININE 0.6 MG/DL (0.55-1.30); POTASSIUM 4.3 MMOL/L (3.5-5.1); SODIUM 135 MMOL/L (136-145)
[2018-06-12 16:00] VITALS: BP 121/57
--- NOTE | 2018-06-12 18:03 | General Progress Note ---
Assessment/Plan Assessment/Plan ASSESSMENT/RECS: 1. 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 --> Presented in sickle crisis. on hydrea, opioids --> retic daily which has been reviewed, elevated --> cbc has been reviewed --> outpatient f/u with Dr. Kerline Davenport 2. Anemia, secondary to sickle cell disease/B thalassemia --> hgb goal >7, transfuse prn 3. Leukocytosis, secondary to reactive process, potentially sepsis as well as on antibiotics. --> hydration and analgesia. 4. Thrombocytosis, potentially secondary to reactive process. 5. Acute chest does have evidence of pna --> s/p antibiotics 6. Hyperbilirubinemia, potentially secondary to minor hemolysis. 7. Reticulocytosis consisting with sickle cell crisis. 8. Left should pain -- has been reviewed Appreciate consultation! Subjective Constitutional: Reports: no symptoms HEENT: Reports: no symptoms Cardiovascular: Reports: no symptoms Respiratory: Reports: no symptoms Gastrointestinal/Abdominal: Reports: no symptoms Genitourinary: Reports: no symptoms Neurologic/Psychiatric: Reports: no symptoms Endocrine: Reports: no symptoms Hematologic/Lymphatic: Reports: anemia Allergies: Coded Allergies: CEFTRIAXONE (Verified Allergy, Unknown, 04/20/16) Uncoded Allergies: CONTRAST (Adverse Reaction, Severe, Rash, 06/23/16) RADIOCONTRAST - RASH, ITCHING Subjective reviewed labs, better controlled pain Objective Last 24 Hour Vital Signs Date Time Temp Pulse Resp B/P (MAP) Pulse Ox O2 Delivery O2 Flow Rate FiO2 06/12/18 16:00 99.4 69 20 121/57 (78) 97 06/12/18 12:00 99.4 54 20 116/64 (81) 96 06/12/18 09:00 Room Air 06/12/18 08:00 98.2 61 20 120/59 (79) 98 06/12/18 04:00 98.6 54 20 107/52 (70) 96 06/12/18 00:00 99.1 63 20 122/56 (78) 97 06/11/18 21:00 Room Air 06/11/18 20:00 99.3 52 20 144/86 (105) 96 Intake and Output 06/11/18 06/12/18 18:59 06:59 Intake Total 400 ml 675 ml Balance 400 ml 675 ml Intake IV Total 675 ml Other 400 ml # Voids 4 2 # Bowel Movements 1 Laboratory Tests 06/12/18 10:00: White Blood Count 16.6#H, Red Blood Count 2.59L, Hemoglobin 8.3L, Hematocrit 24.9L, Mean Corpuscular Volume 96, Mean Corpuscular Hemoglobin 32.1H, Mean Corpuscular Hemoglobin Concent 33.4, Red Cell Distribution Width 19.3H, Platelet Count 336, Mean Platelet Volume 6.8, Neutrophils (%) (Auto) , Lymphocytes (%) (Auto) , Monocytes (%) (Auto) , Eosinophils (%) (Auto) , Basophils (%) (Auto) , Differential Total Cells Counted 100, Neutrophils % ( Manual) 54, Lymphocytes % (Manual) 43, Monocytes % (Manual) 2, Eosinophils % ( Manual) 0, Basophils % (Manual) 1, Band Neutrophils 0, Nucleated Red Blood Cells 38, Platelet Estimate Adequate, Platelet Morphology Normal, Polychromasia 1+, Poikilocytosis 2+, Anisocytosis 2+, Spherocytes 1+, Target Cells 1+, Schistocytes 1+, Reticulocyte Count 2.0, Sodium Level 135L, Potassium Level 4.3 , Chloride Level 103, Carbon Dioxide Level 24, Anion Gap 8, Blood Urea Nitrogen 7, Creatinine 0.6, Estimat Glomerular Filtration Rate > 60, Glucose Level 98, Calcium Level 9.3, Total Bilirubin 0.8, Aspartate Amino Transf (AST/SGOT) 32, Alanine Aminotransferase (ALT/SGPT) 63, Alkaline Phosphatase 136H, Total Protein 9.7H, Albumin 4.0, Globulin 5.7, Albumin/Globulin Ratio 0.7L, Thyroid Stimulating Hormone (TSH) 1.695 Height (Feet): 5 Height (Inches): 6.00 Weight (Pounds): 256 General Appearance: lethargic EENT: TMs normal Neck: supple Cardiovascular: regular rhythm Respiratory/Chest: no respiratory distress Abdomen: non tender Extremities: non-tender Edema: no edema noted Leg (L), no edema noted Leg (R) Edema: trace edema Neurologic: responsive Skin: warm/dry Lewis Olmedo MD Jun 12, 2018 18:03
[2018-06-12 20:00] VITALS: BP 118/62
--- NOTE | 2018-06-12 21:15 | History and Physical Report ---
DATE OF ADMISSION: 06/11/2018 CONSULTANTS: 1. Ranjith Caicedo M.D. 2. Miguelina Tucker M.D. 3. Lewis Olmedo M.D. CHIEF COMPLAINT: Sickle cell crisis and left arm and left shoulder pain. BRIEF HISTORY: A 22-year-old male, who lives at home with a history of sickle cell disease, presents with two-day increasing left arm pain and left shoulder pain. The patient came to [facility], diagnosed with sickle cell crisis, and admitted to medical floor for further treatment. Currently, 8/10 pain in the left arm, left shoulder, and left hip area. PAST MEDICAL HISTORY: Sickle cell, AVN of left hip, and asthma. PAST SURGICAL HISTORY: Splenectomy. MEDICATIONS: Include Benadryl, Dilaudid, heparin, OxyContin, Tylenol, MiraLAX, Zofran, Ativan, and Mylanta. ALLERGIES: Ceftriaxone, contrast, and capsaicin. SOCIAL HISTORY: No smoking. No alcohol. No intravenous drug abuse. FAMILY HISTORY: Noncontributory. REVIEW OF SYSTEMS: No chest pain. No shortness of breath. No nausea, vomiting, or diarrhea. PHYSICAL EXAMINATION: GENERAL: Calm in bed, oriented x3, and in no acute distress. VITAL SIGNS: Temperature is 99, pulse 54, respirations 20, and blood pressure 116/64. CARDIOVASCULAR: No murmurs. LUNGS: Distant and clear. ABDOMEN: Bowel sounds positive. Nontender. Nondistended. EXTREMITIES: No cyanosis, clubbing, or edema. NEUROLOGIC: The patient moves all extremities, slightly weak. LABORATORY AND DIAGNOSTIC DATA: Labs, at this time, show white count 16, hemoglobin and hematocrit are 8.3 and 24, and platelets 336,000. Sodium 135. Alkaline phosphatase 136. Otherwise, BMP is normal. INR is 1.1. Urinalysis, negative. ASSESSMENT: 1. Sickle cell crisis. 2. Anemia. 3. Left hip pain. 4. Left shoulder pain. 5. Avascular necrosis of left hip. 6. Asthma. PLAN: 1. Resume home medications. 2. Pain control. 3. IV fluids. 4. Dietary followup. 5. CBC and BMP in the morning. Bubba Wesley D.O. DR: CURRY JOB#: [id number] CC:
[2018-06-13] VITALS: BP 143/70
[2018-06-13] MEDS: HYDROmorphone 1mg/ml Carpuject IVP PRN ×8 (00:34→23:08)
[2018-06-13 04:00] VITALS: BP 127/58
[2018-06-13 08:00] VITALS: BP 127/69
[2018-06-13 08:20] LABS: HEMATOCRIT 23.9 % (42.0-52.0); HEMOGLOBIN 7.7 G/DL (14.2-18.0); MEAN CORPUSCULAR VOLUME 97 FL (80-99); PLATELET COUNT 326 K/UL (150-450); RED BLOOD COUNT 2.46 M/UL (4.70-6.10); RED CELL DISTRIBUTION WIDTH 19.3 % (11.6-14.8); WHITE BLOOD COUNT 18.5 K/UL (4.8-10.8)
[2018-06-13] MEDS: oxyCONTIN 10mg tab ORAL SCH ×2 (08:23→22:02)
[2018-06-13] MEDS: Heparin 5000 units/ml inj SUBQ SCH ×2 (08:24→21:00)
[2018-06-13 08:28] LABS: ANION GAP 6 mmol/L (5-15); BLOOD UREA NITROGEN 6 mg/dL (7-18); CALCIUM 8.9 MG/DL (8.5-10.1); CARBON DIOXIDE 27 MMOL/L (21-32); CHLORIDE 104 MMOL/L (98-107); CREATININE 0.6 MG/DL (0.55-1.30); POTASSIUM 4.2 MMOL/L (3.5-5.1); SODIUM 137 MMOL/L (136-145)
--- NOTE | 2018-06-13 10:34 | Pulmonology Progress Note ---
Assessment/Plan Problems: (1) Sickle cell crisis (2) Anemia Assessment/Plan iv fluids check LDH in am check electrolytes Subjective ROS Limited/Unobtainable: No Interval Events: minimally better Constitutional: Reports: no symptoms HEENT: Repors: no symptoms Respiratory: Reports: no symptoms Allergies: Coded Allergies: CEFTRIAXONE (Verified Allergy, Unknown, 04/20/16) Uncoded Allergies: CONTRAST (Adverse Reaction, Severe, Rash, 06/23/16) RADIOCONTRAST - RASH, ITCHING Objective Last 24 Hour Vital Signs Date Time Temp Pulse Resp B/P (MAP) Pulse Ox O2 Delivery O2 Flow Rate FiO2 06/13/18 08:00 Room Air 06/13/18 08:00 98.9 59 18 127/69 (88) 99 06/13/18 04:00 98.1 52 21 127/58 (81) 97 06/13/18 00:00 98.6 75 20 143/70 (94) 98 06/12/18 21:00 Room Air 06/12/18 20:00 99.3 60 20 118/62 (80) 97 06/12/18 16:00 99.4 69 20 121/57 (78) 97 06/12/18 12:00 99.4 54 20 116/64 (81) 96 Intake and Output 06/12/18 06/13/18 19:00 07:00 Intake Total 800 ml 450 ml Balance 800 ml 450 ml Intake Oral 800 ml IV Total 450 ml # Voids 2 General Appearance: WD/WN HEENT: atraumatic Respiratory/Chest: chest wall non-tender, lungs clear Cardiovascular: normal peripheral pulses, normal rate Abdomen: normal bowel sounds, no organomegaly Skin: no rash Microbiology Date/Time Source Procedure Growth Status 06/11/18 12:20 Blood Blood Culture - Preliminary NO GROWTH AFTER 24 HOURS Resulted 06/11/18 12:20 Blood Blood Culture - Preliminary NO GROWTH AFTER 24 HOURS Resulted 06/11/18 20:45 Rectum VRE Culture - Preliminary Resulted 06/11/18 20:45 Rectum - Preliminary Resulted Laboratory Tests 06/12/18 18:00: Total Protein (PEP) [Pending], Albumin (PEP) [Pending], Globulin (PEP) [Pending] , Albumin/Globulin Ratio [Pending], [id number] [Pending], Alpha-2- Globulins [Pending], Beta Globulins [Pending], Beta Gamma Globulin [Pending], PEP Abnormal Protein Bands [Pending], Protein Electrophoresis Interpret [Pending ] 06/13/18 07:45: White Blood Count 18.5H, Red Blood Count 2.46L, Hemoglobin 7.7L, Hematocrit 23.9L, Mean Corpuscular Volume 97, Mean Corpuscular Hemoglobin 31.1H, Mean Corpuscular Hemoglobin Concent 32.1, Red Cell Distribution Width 19.3H, Platelet Count 326, Mean Platelet Volume 6.8, Neutrophils (%) (Auto) , Lymphocytes (%) (Auto) , Monocytes (%) (Auto) , Eosinophils (%) (Auto) , Basophils (%) (Auto) , Differential Total Cells Counted 100, Neutrophils % ( Manual) 38L, Lymphocytes % (Manual) 58H, Monocytes % (Manual) 3, Eosinophils % ( Manual) 1, Basophils % (Manual) 0, Band Neutrophils 0, Nucleated Red Blood Cells 37, Platelet Estimate Adequate, Platelet Morphology Normal, Polychromasia 1+, Hypochromasia 3+, Anisocytosis 2+, Spherocytes 1+, Target Cells 1+, Sodium Level 137, Potassium Level 4.2, Chloride Level 104, Carbon Dioxide Level 27, Anion Gap 6, Blood Urea Nitrogen 6L, Creatinine 0.6, Estimat Glomerular Filtration Rate > 60, Glucose Level 108H, Calcium Level 8.9 Current Medications Medications (Trade) Dose Ordered Sig/Arianne Route PRN Reason Start Time Stop Time Status Last Admin Dose Admin Acetaminophen (Tylenol) 650 mg Q4H PRN ORAL fever (T>100.5F) 06/11/18 15:45 07/11/18 15:44 Al Hydroxide/Mg Hydroxide (Mylanta II) 30 ml Q6H PRN ORAL dyspepsia 06/11/18 15:45 07/11/18 15:44 Dextrose (Dextrose 50%) 25 ml Q30M PRN IV Hypoglycemia 06/11/18 15:45 07/11/18 15:44 Dextrose (Dextrose 50%) 50 ml Q30M PRN IV Hypoglycemia 06/11/18 15:45 07/11/18 15:44 Diphenhydramine HCl (Benadryl) 50 mg Q6H PRN ORAL Itching 06/12/18 13:01 07/12/18 13:00 06/12/18 16:06 Heparin Sodium (Porcine) (Heparin 5000 units/ml) 5,000 units EVERY 12 HOURS SUBQ 06/11/18 21:00 07/11/18 20:59 06/13/18 08:24 Hydromorphone HCl (Dilaudid) 1 mg Q3H PRN IVP severe pain 06/12/18 09:00 06/18/18 19:23 06/13/18 09:43 Lorazepam (Ativan 2mg/ml 1ml) 0.5 mg Q4H PRN IV For Anxiety 06/11/18 15:45 06/18/18 15:44 Ondansetron HCl (Zofran) 4 mg Q6H PRN IVP Nausea & Vomiting 06/11/18 15:45 07/11/18 15:44 Oxycodone HCl (OxyCONTIN) 30 mg Q12HR ORAL 06/11/18 21:00 06/18/18 20:59 06/13/18 08:23 Polyethylene Glycol (Miralax) 17 gm HSPRN PRN ORAL Constipation 06/11/18 15:45 07/11/18 15:44 Sodium Chloride 1,000 ml @ 75 mls/hr [id number] IV 06/11/18 21:52 07/11/18 21:51 06/13/18 00:32 Zolpidem Tartrate (Ambien) 5 mg HSPRN PRN ORAL Insomnia 06/11/18 15:45 06/18/18 15:44 Ranjith Caicedo MD Jun 13, 2018 10:34
[2018-06-13 12:00] VITALS: BP 120/57
--- NOTE | 2018-06-13 12:41 | Consultation ---
Consult Note Consult Note # [id number] Damien Duke MD Jun 13, 2018 12:41
--- NOTE | 2018-06-13 12:45 | General Progress Note ---
Assessment/Plan Problem List: (1) Leukocytosis ICD Codes: D72.829 - Elevated white blood cell count, unspecified SNOMED: 278986957, 097810158 (2) Sickle cell disease ICD Codes: D57.1 - Sickle-cell disease without crisis SNOMED: 267267368 (3) Left shoulder pain ICD Codes: M25.512 - Pain in left shoulder SNOMED: 26956802, 02225375 Qualifiers: Qualified Codes: M25.512 - Pain in left shoulder (4) Sickle cell crisis ICD Codes: D57.00 - Hb-SS disease with crisis, unspecified SNOMED: 958831778 (5) Anemia ICD Codes: D64.9 - Anemia, unspecified SNOMED: 216553631 Status: unchanged Assessment/Plan heme f/u transfuse prn pain control cbc bmp am Subjective Constitutional: Reports: weakness Allergies: Coded Allergies: CEFTRIAXONE (Verified Allergy, Unknown, 04/20/16) Uncoded Allergies: CONTRAST (Adverse Reaction, Severe, Rash, 06/23/16) RADIOCONTRAST - RASH, ITCHING All Systems: reviewed and negative except above Subjective sl general pain Objective Last 24 Hour Vital Signs Date Time Temp Pulse Resp B/P (MAP) Pulse Ox O2 Delivery O2 Flow Rate FiO2 06/13/18 10:13 98.1 06/13/18 08:00 Room Air 06/13/18 08:00 98.9 59 18 127/69 (88) 99 06/13/18 04:00 98.1 52 21 127/58 (81) 97 06/13/18 00:00 98.6 75 20 143/70 (94) 98 06/12/18 21:00 Room Air 06/12/18 20:00 99.3 60 20 118/62 (80) 97 06/12/18 16:00 99.4 69 20 121/57 (78) 97 Intake and Output 06/12/18 06/13/18 19:00 07:00 Intake Total 800 ml 450 ml Balance 800 ml 450 ml Intake Oral 800 ml IV Total 450 ml # Voids 2 Laboratory Tests 06/12/18 18:00: Total Protein (PEP) 8.2, Albumin (PEP) 4.1, Globulin (PEP) 4.1H, Albumin/ Globulin Ratio 1.0, Wozdv-2-Kuftejqmp 0.2, Ngtec-5-Amxlijgfj 0.8, Beta Globulins 1.2, Beta Gamma Globulin 2.0H, PEP Abnormal Protein Bands Not observed , Protein Electrophoresis Interpret Comment 06/13/18 07:45: White Blood Count 18.5H, Red Blood Count 2.46L, Hemoglobin 7.7L, Hematocrit 23.9L, Mean Corpuscular Volume 97, Mean Corpuscular Hemoglobin 31.1H, Mean Corpuscular Hemoglobin Concent 32.1, Red Cell Distribution Width 19.3H, Platelet Count 326, Mean Platelet Volume 6.8, Neutrophils (%) (Auto) , Lymphocytes (%) (Auto) , Monocytes (%) (Auto) , Eosinophils (%) (Auto) , Basophils (%) (Auto) , Differential Total Cells Counted 100, Neutrophils % ( Manual) 38L, Lymphocytes % (Manual) 58H, Monocytes % (Manual) 3, Eosinophils % ( Manual) 1, Basophils % (Manual) 0, Band Neutrophils 0, Nucleated Red Blood Cells 37, Platelet Estimate Adequate, Platelet Morphology Normal, Polychromasia 1+, Hypochromasia 3+, Anisocytosis 2+, Spherocytes 1+, Target Cells 1+, Sodium Level 137, Potassium Level 4.2, Chloride Level 104, Carbon Dioxide Level 27, Anion Gap 6, Blood Urea Nitrogen 6L, Creatinine 0.6, Estimat Glomerular Filtration Rate > 60, Glucose Level 108H, Calcium Level 8.9 Height (Feet): 5 Height (Inches): 6.00 Weight (Pounds): 256 General Appearance: lethargic EENT: normal ENT inspection Neck: normal alignment Cardiovascular: normal peripheral pulses, normal rate, regular rhythm Respiratory/Chest: chest wall non-tender, lungs clear, normal breath sounds Abdomen: normal bowel sounds, non tender, soft Extremities: normal inspection Edema: no edema noted Arm (L), no edema noted Arm (R), no edema noted Leg (L), no edema noted Leg (R), no edema noted Pedal (L), no edema noted Pedal (R), no edema noted Generalized Neurologic: responsive, motor weakness Skin: normal pigmentation, warm/dry Bubba WesleyKenzie DO Jun 13, 2018 12:45
[2018-06-13] MEDS ORDERED: Vancomycin 1.5 GM/D5W 250ML IVPB SCH (14:00)
--- NOTE | 2018-06-13 14:52 | General Progress Note ---
Assessment/Plan Status: stable Assessment/Plan ASSESSMENT/RECS: 1. 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 --> Presented in sickle crisis. on hydrea, opioids --> retic daily which has been reviewed, elevated --> cbc has been reviewed, will trend as needed. --> outpatient f/u with Dr. Kerline Davenport 2. Anemia, secondary to sickle cell disease/B thalassemia --> hgb goal >7, transfuse prn 3. Leukocytosis, secondary to reactive process, potentially sepsis as well as on antibiotics. --> WBC remains elevated --> hydration and analgesia. 4. Thrombocytosis, potentially secondary to reactive process. --> Improved/resolved 5. Acute chest does have evidence of pna --> s/p antibiotics 6. Hyperbilirubinemia, potentially secondary to minor hemolysis. 7. Reticulocytosis consisting with sickle cell crisis. Appreciate consultation! Subjective Date patient seen: Jun 13, 2018 ROS Limited/Unobtainable: Yes Hematologic/Lymphatic: Reports: anemia Allergies: Coded Allergies: CEFTRIAXONE (Verified Allergy, Unknown, 04/20/16) Uncoded Allergies: CONTRAST (Adverse Reaction, Severe, Rash, 06/23/16) RADIOCONTRAST - RASH, ITCHING Subjective Pt awake and alert. No acute events. Objective Last 24 Hour Vital Signs Date Time Temp Pulse Resp B/P (MAP) Pulse Ox O2 Delivery O2 Flow Rate FiO2 06/13/18 13:24 98.1 06/13/18 12:00 98.8 57 18 120/57 (78) 99 06/13/18 08:00 Room Air 06/13/18 08:00 98.9 59 18 127/69 (88) 99 06/13/18 04:00 98.1 52 21 127/58 (81) 97 06/13/18 00:00 98.6 75 20 143/70 (94) 98 06/12/18 21:00 Room Air 06/12/18 20:00 99.3 60 20 118/62 (80) 97 06/12/18 16:00 99.4 69 20 121/57 (78) 97 Intake and Output 06/12/18 06/13/18 18:59 06:59 Intake Total 800 ml 450 ml Balance 800 ml 450 ml Intake Oral 800 ml IV Total 450 ml # Voids 2 Laboratory Tests 06/12/18 18:00: Total Protein (PEP) 8.2, Albumin (PEP) 4.1, Globulin (PEP) 4.1H, Albumin/ Globulin Ratio 1.0, Xmnwt-3-Ssviziqea 0.2, Uxrnr-3-Cjmtvrlld 0.8, Beta Globulins 1.2, Beta Gamma Globulin 2.0H, PEP Abnormal Protein Bands Not observed , Protein Electrophoresis Interpret Comment 06/13/18 07:45: White Blood Count 18.5H, Red Blood Count 2.46L, Hemoglobin 7.7L, Hematocrit 23.9L, Mean Corpuscular Volume 97, Mean Corpuscular Hemoglobin 31.1H, Mean Corpuscular Hemoglobin Concent 32.1, Red Cell Distribution Width 19.3H, Platelet Count 326, Mean Platelet Volume 6.8, Neutrophils (%) (Auto) , Lymphocytes (%) (Auto) , Monocytes (%) (Auto) , Eosinophils (%) (Auto) , Basophils (%) (Auto) , Differential Total Cells Counted 100, Neutrophils % ( Manual) 38L, Lymphocytes % (Manual) 58H, Monocytes % (Manual) 3, Eosinophils % ( Manual) 1, Basophils % (Manual) 0, Band Neutrophils 0, Nucleated Red Blood Cells 37, Platelet Estimate Adequate, Platelet Morphology Normal, Polychromasia 1+, Hypochromasia 3+, Anisocytosis 2+, Spherocytes 1+, Target Cells 1+, Sodium Level 137, Potassium Level 4.2, Chloride Level 104, Carbon Dioxide Level 27, Anion Gap 6, Blood Urea Nitrogen 6L, Creatinine 0.6, Estimat Glomerular Filtration Rate > 60, Glucose Level 108H, Calcium Level 8.9 Height (Feet): 5 Height (Inches): 6.00 Weight (Pounds): 256 General Appearance: no apparent distress EENT: PERRL/EOMI Neck: normal alignment Cardiovascular: bradycardia Respiratory/Chest: normal breath sounds Abdomen: soft Lewis Olmedo MD Jun 13, 2018 14:52
--- NOTE | 2018-06-13 15:46 | Cardiology Report ---
APPROVED REPORT EXAM: Two-dimensional and M-mode echocardiogram with Doppler and color Doppler. INDICATION Aortic Valve Disease M-Mode DIMENSIONS IVSd1.1 (0.7-1.1cm)Left Atrium (MM)4.3 (1.6-4.0cm) LVDd4.8 (3.5-5.6cm)Aortic Root3.8 (2.0-3.7cm) PWd1.2 (0.7-1.1cm)Aortic Cusp Exc.2.4 (1.5-2.0cm) IVSs1.2 cm LVDs2.0 (2.5-4.0cm) PWs3.1 cm Normal left ventricular chamber size, systolic function and wall motion . Left ventricular ejection fraction estimated to be 60-65%. No evidence of left ventricular hypertrophy . No evidence of pericardial effusion. Mild bi-atrial enlargement . Right ventricular chamber sizes is within normal limits. Focal aortic valve sclerosis with adequate cusp excursion. Mildly Thickened mitral valve leaflets with normal excursion. Mildly Mitral annulus and aortic root calcification. Pulmonic valve not well visualized. Normal tricuspid valve structure. IVC at normal size with physiologic collapse . A color flow and spectral Doppler study was performed and revealed: No aortic insufficiency .PG 16 mmhg across the aortic valve Trace mitral regurgitation. Normal left ventricular diastolic function . Trace tricuspid regurgitation. Tricuspid systolic velocities suggests peak right ventricular systolic pressure of 21mmHg.
[2018-06-13 16:00] VITALS: BP 127/66
--- NOTE | 2018-06-13 19:30 | Consultation ---
DATE OF CONSULTATION: 06/13/2018 INFECTIOUS DISEASE CONSULTATION CONSULTING PHYSICIAN: Damien Duke M.D. REQUESTING PHYSICIAN: Ranjith Caicedo M.D. REASON FOR CONSULTATION: Evaluation of the patient for bacteremia. HISTORY OF PRESENT ILLNESS: The patient is a 22-year-old male with past medical history significant for sickle cell, who was admitted to this medical center for bilateral shoulder pain that the patient contributes to episodes of sickle crisis. The patient was found to have a low-grade fever. Blood cultures growing gram positive cocci in 2/2 sets. Infectious Disease consultation has been requested for further evaluation of the patient and antibiotic management. The patient mentioned of having multiple visits to his primary care doctors to receive intravenous hydration, last one was less than a week ago. The patient had also arterial blood transfusion about a month ago. PAST MEDICAL HISTORY: 1. Sickle cell. 2. History of left hip avascular necrosis. 3. Asthma. 4. History of splenectomy. 5. Anemia. MEDICATIONS: Currently, off of antibiotics. ALLERGIES: Rocephin. FAMILY HISTORY: Not contributing. SOCIAL HISTORY: Negative for alcohol, drug abuse, and smoking. PHYSICAL EXAMINATION: VITAL SIGNS: Temperature 98 degrees, blood pressure 127/69, pulse 86, and respiratory rate 18. T-max 100.6. HEENT: No pale conjunctivae. No icterus. NECK: No lymphadenopathy. CHEST: Clear. HEART: S1 and S2. ABDOMEN: Soft. EXTREMITIES: No cyanosis. NEUROLOGIC: Awake and alert. LABORATORY DATA: White blood cells 18, hemoglobin 7, and platelets 326,000. UA unremarkable. BUN 6 and creatinine 0.6. ALT and AST are unremarkable. Alkaline phosphatase 136. Hepatitis panel as well as unremarkable. Blood culture, 2/2 is growing gram-positive cocci in clusters. Chest x-ray, mild increased perihilar interstitial markings. ASSESSMENT: The patient is a 22-year-old male with, 1. Leukocytosis (due to sickle cell crisis). 2. Fever (due to sickle cell crisis, also probable bacteremia). 3. Positive blood culture for gram-positive cocci? contaminant versus real (history of multiple intravenous placements for intravenous hydration). 4. Monitor CBC. 5. Monitor BMP. 6. Repeat 2 sets of blood culture. 7. The patient is still on IV vancomycin. 8. A 2D echo. 9. Based on the patient's clinical course and labs, we will do further recommendation. Thank you, Dr. Caicedo, for allowing me to participate in the care of this patient. I will follow the patient with you during this hospitalization. Damien Duke M.D. DR: ALISON JOB#: [id number] CC:
[2018-06-13 20:00] VITALS: BP_SYST 106; BP_SYST 128; BP_DIAS 61; BP_DIAS 72
[2018-06-13] MEDS: Vancomycin 1250mg/D5W 250ml IVPB SCH (22:56)
[2018-06-14] VITALS: BP 123/56
[2018-06-14 00:10] VITALS: BP 130/69
[2018-06-14] MEDS: HYDROmorphone 1mg/ml Carpuject IVP PRN ×3 (03:47→10:20)
[2018-06-14 04:00] VITALS: BP 130/53
[2018-06-14] MEDS: Vancomycin 1250mg/D5W 250ml IVPB SCH ×2 (05:59→12:17)
[2018-06-14 08:00] VITALS: BP 110/49
--- NOTE | 2018-06-14 08:22 | General Progress Note ---
Assessment/Plan Assessment/Plan ASSESSMENT/RECS: 1. 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 --> Presented in sickle crisis. is on hydrea, opioids --> retic daily which has been reviewed, elevated --> cbc has been reviewed, will trend as needed. --> outpatient f/u with Dr. Kerline Davenport 2. Anemia, secondary to sickle cell disease/B thalassemia --> hgb goal >7, transfuse prn --> no evidence of severe hemolysis 3. Leukocytosis, secondary to reactive process, potentially sepsis as well as on antibiotics. --> WBC remains elevated --> hydration and analgesia. 4. Thrombocytosis, potentially secondary to reactive process. --> Improved/resolved 5. Acute chest does have evidence of pna --> s/p antibiotics 6. Hyperbilirubinemia, potentially secondary to minor hemolysis --> monitor 7. Reticulocytosis consisting with sickle cell crisis. Appreciate consultation! Subjective Constitutional: Denies: no symptoms, chills, diaphoresis, fever, malaise, weakness, other HEENT: Denies: no symptoms, eye pain, blurred vision, tearing, double vision, ear pain, ear discharge, nose pain, nose congestion, throat pain, throat swelling, mouth pain, mouth swelling, other Cardiovascular: Denies: no symptoms, chest pain, edema, irregular heart rate, lightheadedness, palpitations, syncope, other Respiratory: Denies: no symptoms, cough, orthopnea, shortness of breath, SOB with excertion, SOB at rest, sputum, stridor, wheezing, other Genitourinary: Denies: no symptoms, burning, discharge, frequency, flank pain, hematuria, incontinence, pain, urgency, other Neurologic/Psychiatric: Denies: no symptoms, anxiety, depressed, emotional problems, headache, numbness, paresthesia, pre-existing deficit, seizure, tingling, tremors, weakness, other Endocrine: Denies: no symptoms, excessive sweating, flushing, intolerance to cold, intolerance to heat, increased hunger, increased thirst, increased urine, unexplained weight gain, unexplained weight loss, other Allergies: Coded Allergies: CEFTRIAXONE (Verified Allergy, Unknown, 04/20/16) Uncoded Allergies: CONTRAST (Adverse Reaction, Severe, Rash, 06/23/16) RADIOCONTRAST - RASH, ITCHING Subjective Pt awake and alert. No acute events. No fevers. Objective Last 24 Hour Vital Signs Date Time Temp Pulse Resp B/P (MAP) Pulse Ox O2 Delivery O2 Flow Rate FiO2 06/14/18 04:00 98.1 60 20 130/53 (78) 100 06/14/18 00:10 98.0 79 19 130/69 (89) 98 06/14/18 00:00 99.5 19 19 123/56 (78) 98 06/13/18 21:00 Room Air 06/13/18 20:00 97.8 69 18 128/72 (90) 97 06/13/18 20:00 99.9 53 20 106/61 (76) 100 06/13/18 16:28 98.1 06/13/18 16:00 98.6 61 18 127/66 (86) 99 06/13/18 12:00 98.8 57 18 120/57 (78) 99 Intake and Output 06/13/18 06/14/18 19:00 07:00 Intake Total 860 ml 1325.001 ml Balance 860 ml 1325.001 ml Intake Oral 860 ml IV Total 1325.001 ml # Voids 5 1 # Bowel Movements 1 Height (Feet): 5 Height (Inches): 6.00 Weight (Pounds): 256 Objective GEN: NAD, A+O x3 HEENT: No pale conjunctivae. No icterus. NECK: No lymphadenopathy. CHEST: Clear. HEART: S1 and S2. ABDOMEN: Soft. EXTREMITIES: No cyanosis. NEUROLOGIC: Awake and alert. Lewis Olmedo MD Jun 14, 2018 08:22
[2018-06-14] MEDS: oxyCONTIN 10mg tab ORAL SCH (08:44)
[2018-06-14] MEDS: Heparin 5000 units/ml inj SUBQ SCH (08:49)
[2018-06-14 09:30] LABS: HEMATOCRIT 22.9 % (42.0-52.0); HEMOGLOBIN 7.6 G/DL (14.2-18.0); MEAN CORPUSCULAR VOLUME 93 FL (80-99); PLATELET COUNT 375 K/UL (150-450); RED BLOOD COUNT 2.46 M/UL (4.70-6.10); RED CELL DISTRIBUTION WIDTH 18.5 % (11.6-14.8); WHITE BLOOD COUNT 8.7 K/UL (4.8-10.8)
[2018-06-14 09:42] LABS: ALANINE AMINOTRANSFERASE 79 U/L (12-78); ALBUMIN 3.6 G/DL (3.4-5.0); ALBUMIN/GLOBULIN RATIO 0.6 (1.0-2.7); ALKALINE PHOSPHATASE 136 U/L (46-116); ANION GAP 9 mmol/L (5-15); ASPARTATE AMINO TRANSFERASE 34 U/L (15-37); BILIRUBIN,TOTAL 0.7 MG/DL (0.2-1.0); BLOOD UREA NITROGEN 6 mg/dL (7-18); CALCIUM 9.3 MG/DL (8.5-10.1); CARBON DIOXIDE 26 MMOL/L (21-32); CHLORIDE 101 MMOL/L (98-107); CREATININE 0.6 MG/DL (0.55-1.30); LACTATE DEHYDROGENASE 169 U/L (81-234); PHOSPHORUS 3.7 MG/DL (2.5-4.9); SODIUM 136 MMOL/L (136-145)
[2018-06-14 12:00] VITALS: BP 133/79
--- NOTE | 2018-06-14 13:29 | General Progress Note ---
Assessment/Plan Problem List: (1) Leukocytosis ICD Codes: D72.829 - Elevated white blood cell count, unspecified SNOMED: 237119397, 392401842 (2) Sickle cell disease ICD Codes: D57.1 - Sickle-cell disease without crisis SNOMED: 721437014 (3) Left shoulder pain ICD Codes: M25.512 - Pain in left shoulder SNOMED: 03483926, 42841860 Qualifiers: Qualified Codes: M25.512 - Pain in left shoulder (4) Sickle cell crisis ICD Codes: D57.00 - Hb-SS disease with crisis, unspecified SNOMED: 544389920 (5) Anemia ICD Codes: D64.9 - Anemia, unspecified SNOMED: 238460794 Status: stable, progressing Assessment/Plan heme f/u transfuse prn pain control cbc bmp am dc if clear Subjective Constitutional: Reports: weakness Allergies: Coded Allergies: CEFTRIAXONE (Verified Allergy, Unknown, 04/20/16) Uncoded Allergies: CONTRAST (Adverse Reaction, Severe, Rash, 06/23/16) RADIOCONTRAST - RASH, ITCHING All Systems: reviewed and negative except above Subjective sl general pain Objective Last 24 Hour Vital Signs Date Time Temp Pulse Resp B/P (MAP) Pulse Ox O2 Delivery O2 Flow Rate FiO2 06/14/18 12:00 98.2 67 20 133/79 (97) 97 06/14/18 10:50 98.1 06/14/18 09:00 Room Air 06/14/18 08:00 99.0 50 20 110/49 (69) 97 06/14/18 04:00 98.1 60 20 130/53 (78) 100 06/14/18 00:10 98.0 79 19 130/69 (89) 98 06/14/18 00:00 99.5 19 19 123/56 (78) 98 06/13/18 21:00 Room Air 06/13/18 20:00 97.8 69 18 128/72 (90) 97 06/13/18 20:00 99.9 53 20 106/61 (76) 100 06/13/18 16:00 98.6 61 18 127/66 (86) 99 Intake and Output 06/13/18 06/14/18 19:00 07:00 Intake Total 860 ml 1325.001 ml Balance 860 ml 1325.001 ml Intake Oral 860 ml IV Total 1325.001 ml # Voids 5 1 # Bowel Movements 1 Laboratory Tests 06/14/18 08:10: White Blood Count 8.7#, Red Blood Count 2.46L, Hemoglobin 7.6L, Hematocrit 22.9L , Mean Corpuscular Volume 93, Mean Corpuscular Hemoglobin 30.9, Mean Corpuscular Hemoglobin Concent 33.1, Red Cell Distribution Width 18.5H, Platelet Count 375, Mean Platelet Volume 7.3, Neutrophils (%) (Auto) , Lymphocytes (%) (Auto) , Monocytes (%) (Auto) , Eosinophils (%) (Auto) , Basophils (%) (Auto) , Differential Total Cells Counted 100, Neutrophils % ( Manual) 52, Lymphocytes % (Manual) 42, Monocytes % (Manual) 6, Eosinophils % ( Manual) 0, Basophils % (Manual) 0, Band Neutrophils 0, Nucleated Red Blood Cells 12, Platelet Estimate Adequate, Platelet Morphology Normal, Polychromasia 2+, Hypochromasia 2+, Anisocytosis 2+, Target Cells 1+, Ovalocytes 1+, Erythrocyte Sedimentation Rate 66H, Sodium Level 136, Potassium Level 4.0, Chloride Level 101, Carbon Dioxide Level 26, Anion Gap 9, Blood Urea Nitrogen 6L , Creatinine 0.6, Estimat Glomerular Filtration Rate > 60, Glucose Level 123H, Calcium Level 9.3, Phosphorus Level 3.7, Magnesium Level 2.1, Total Bilirubin 0.7, Aspartate Amino Transf (AST/SGOT) 34, Alanine Aminotransferase (ALT/SGPT) 79H, Alkaline Phosphatase 136H, Lactate Dehydrogenase 169, C-Reactive Protein, Quantitative 1.7H, Total Protein 9.5H, Albumin 3.6, Globulin 5.9, Albumin/ Globulin Ratio 0.6L Height (Feet): 5 Height (Inches): 6.00 Weight (Pounds): 256 General Appearance: alert EENT: normal ENT inspection Neck: normal alignment Cardiovascular: normal peripheral pulses, normal rate, regular rhythm Respiratory/Chest: chest wall non-tender, lungs clear, normal breath sounds Abdomen: normal bowel sounds, non tender, soft Extremities: normal inspection Edema: no edema noted Arm (L), no edema noted Arm (R), no edema noted Leg (L), no edema noted Leg (R), no edema noted Pedal (L), no edema noted Pedal (R), no edema noted Generalized Neurologic: responsive, motor weakness Skin: normal pigmentation, warm/dry Bubba Wesley DO Jun 14, 2018 13:29
--- NOTE | 2018-06-14 14:31 | Pulmonology Progress Note ---
Assessment/Plan Problems: (1) Sickle cell crisis (2) Anemia Assessment/Plan iv fluids check LDH in am check electrolytes pt wants to be discharged home Subjective ROS Limited/Unobtainable: No Constitutional: Reports: no symptoms HEENT: Repors: no symptoms Respiratory: Reports: no symptoms Allergies: Coded Allergies: CEFTRIAXONE (Verified Allergy, Unknown, 04/20/16) Uncoded Allergies: CONTRAST (Adverse Reaction, Severe, Rash, 06/23/16) RADIOCONTRAST - RASH, ITCHING Objective Last 24 Hour Vital Signs Date Time Temp Pulse Resp B/P (MAP) Pulse Ox O2 Delivery O2 Flow Rate FiO2 06/14/18 12:00 98.2 67 20 133/79 (97) 97 06/14/18 10:50 98.1 06/14/18 09:00 Room Air 06/14/18 08:00 99.0 50 20 110/49 (69) 97 06/14/18 04:00 98.1 60 20 130/53 (78) 100 06/14/18 00:10 98.0 79 19 130/69 (89) 98 06/14/18 00:00 99.5 19 19 123/56 (78) 98 06/13/18 21:00 Room Air 06/13/18 20:00 97.8 69 18 128/72 (90) 97 06/13/18 20:00 99.9 53 20 106/61 (76) 100 06/13/18 16:00 98.6 61 18 127/66 (86) 99 Intake and Output 06/13/18 06/14/18 19:00 07:00 Intake Total 860 ml 1325.001 ml Balance 860 ml 1325.001 ml Intake Oral 860 ml IV Total 1325.001 ml # Voids 5 1 # Bowel Movements 1 General Appearance: WD/WN HEENT: normocephalic, atraumatic Respiratory/Chest: chest wall non-tender, lungs clear Cardiovascular: normal peripheral pulses, normal rate Abdomen: normal bowel sounds Genitourinary: normal external genitalia Skin: no rash 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 Complete 06/11/18 20:45 Rectum VRE Culture - Final NO VANCOMYCIN RESISTANT ENTEROCOCCUS ... Complete 06/11/18 20:45 Rectum - Final NO CARBAPENEM-RESISTANT ENTEROBACTERI... Complete Laboratory Tests 06/14/18 08:10: White Blood Count 8.7#, Red Blood Count 2.46L, Hemoglobin 7.6L, Hematocrit 22.9L , Mean Corpuscular Volume 93, Mean Corpuscular Hemoglobin 30.9, Mean Corpuscular Hemoglobin Concent 33.1, Red Cell Distribution Width 18.5H, Platelet Count 375, Mean Platelet Volume 7.3, Neutrophils (%) (Auto) , Lymphocytes (%) (Auto) , Monocytes (%) (Auto) , Eosinophils (%) (Auto) , Basophils (%) (Auto) , Differential Total Cells Counted 100, Neutrophils % ( Manual) 52, Lymphocytes % (Manual) 42, Monocytes % (Manual) 6, Eosinophils % ( Manual) 0, Basophils % (Manual) 0, Band Neutrophils 0, Nucleated Red Blood Cells 12, Platelet Estimate Adequate, Platelet Morphology Normal, Polychromasia 2+, Hypochromasia 2+, Anisocytosis 2+, Target Cells 1+, Ovalocytes 1+, Erythrocyte Sedimentation Rate 66H, Sodium Level 136, Potassium Level 4.0, Chloride Level 101, Carbon Dioxide Level 26, Anion Gap 9, Blood Urea Nitrogen 6L , Creatinine 0.6, Estimat Glomerular Filtration Rate > 60, Glucose Level 123H, Calcium Level 9.3, Phosphorus Level 3.7, Magnesium Level 2.1, Total Bilirubin 0.7, Aspartate Amino Transf (AST/SGOT) 34, Alanine Aminotransferase (ALT/SGPT) 79H, Alkaline Phosphatase 136H, Lactate Dehydrogenase 169, C-Reactive Protein, Quantitative 1.7H, Total Protein 9.5H, Albumin 3.6, Globulin 5.9, Albumin/ Globulin Ratio 0.6L Current Medications Medications (Trade) Dose Ordered Sig/Arianne Route PRN Reason Start Time Stop Time Status Last Admin Dose Admin Acetaminophen (Tylenol) 650 mg Q4H PRN ORAL fever (T>100.5F) 06/11/18 15:45 07/11/18 15:44 Al Hydroxide/Mg Hydroxide (Mylanta II) 30 ml Q6H PRN ORAL dyspepsia 06/11/18 15:45 07/11/18 15:44 Dextrose (Dextrose 50%) 25 ml Q30M PRN IV Hypoglycemia 06/11/18 15:45 07/11/18 15:44 Dextrose (Dextrose 50%) 50 ml Q30M PRN IV Hypoglycemia 06/11/18 15:45 07/11/18 15:44 Diphenhydramine HCl (Benadryl) 50 mg Q6H PRN ORAL Itching 06/12/18 13:01 07/12/18 13:00 06/13/18 17:56 Heparin Sodium (Porcine) (Heparin 5000 units/ml) 5,000 units EVERY 12 HOURS SUBQ 06/11/18 21:00 07/11/18 20:59 06/13/18 08:24 Hydromorphone HCl (Dilaudid) 1 mg Q3H PRN IVP severe pain 06/12/18 09:00 06/18/18 19:23 06/14/18 10:20 Lorazepam (Ativan 2mg/ml 1ml) 0.5 mg Q4H PRN IV For Anxiety 06/11/18 15:45 06/18/18 15:44 Ondansetron HCl (Zofran) 4 mg Q6H PRN IVP Nausea & Vomiting 06/11/18 15:45 07/11/18 15:44 Oxycodone HCl (OxyCONTIN) 30 mg Q12HR ORAL 06/11/18 21:00 06/18/18 20:59 06/14/18 08:44 Polyethylene Glycol (Miralax) 17 gm HSPRN PRN ORAL Constipation 06/11/18 15:45 07/11/18 15:44 Sodium Chloride 1,000 ml @ 75 mls/hr [id number] IV 06/11/18 21:52 07/11/18 21:51 06/13/18 14:58 Vancomycin HCl (Vanco rx to dose) 1 ea DAILY PRN MISC Per rx protocol 06/13/18 12:45 07/13/18 12:44 Vancomycin HCl/ Dextrose 250 ml @ 166.667 mls/hr Q8H IVPB 06/13/18 22:00 06/18/18 21:59 06/14/18 12:17 Zolpidem Tartrate (Ambien) 5 mg HSPRN PRN ORAL Insomnia 06/11/18 15:45 06/18/18 15:44 Ranjith Caicedo MD Jun 14, 2018 14:31
--- NOTE | 2018-06-15 12:13 | Discharge Summary ---
Discharge Summary Discharge Summary _ DATE OF ADMISSION: 06/11/2018 DATE OF DISCHARGE: 06/14/2018 CONSULTANTS: Dr. Ranjith Tucker BRIEF HOSPITAL COURSE: Patient is a 22-year-old male, who lives at home, with history of sickle cell disease, presented to ED complaining of 2 day increased pain in the arm and left shoulder. He complained of fever temperature 101.9 the day prior. There was no vomiting, no cough, no dysuria, no rashes, no headache. There was no recent blood transfusion. He has medical history significant for sickle cell, AVN of the left hip and asthma. He is status post splenectomy. On evaluation at ED, he was febrile with temperature 100.6. Blood work showed normal WBC, elevated reticulocyte count, elevated LDH. Hemoglobin was 8.6, hematocrit was 26. Urinalysis was unremarkable. Lactate was normal. He had a chest x-ray done that showed mild increased perihilar interstitial markings. No focal consolidation. He was then admitted for evaluation of sickle cell crisis. He was started on IV hydration. He was seen by pain medicine physician. He was started on Dilaudid 1 mg IV prn and OxyContin 30 mg twice a day. He was continued on Hydrea. Wellness Guide was consulted. Patient has HbS beta-plus, elevated A2 chain, 70% S chain, HbF less than 20% and HbA 10-20%. 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 Blood culture showed growth of gram-positive cocci in 2/2 sets. ID was consulted. He was given IV vancomycin. Echocardiogram was done and showed EF of 60-65%, no evidence of vegetations. Repeat blood culture did not isolate any growth. Reticulocyte count normalized. LDH normalized. He was eventually cleared for discharge home. 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 DISCHARGE MEDICATIONS: Refer to Discharge Medication List. DISCHARGE INSTRUCTIONS: Follow up in a week. Outpatient follow-up with Dr. Kerline Davenport. I have been assigned to dictate discharge summary on this account, and I was not involved in the patient's management. Taylor Garcia NP Jun 15, 2018 12:13
== END 2018-06-14 14:45 | disposition home or self-care (01) | DRG 662 ==
LOC: EMR 11:45 → 4E 11:51 → EDBEDREQ 12:46
DX: D57.419 Sickle-cell thalassemia, unspecified, with crisis (principal); D57.819 Other sickle-cell disorders with crisis, unspecified; M87.852 Other osteonecrosis, left femur; M25.512 Pain in left shoulder; J45.909 Unspecified asthma, uncomplicated; D47.3 Essential (hemorrhagic) thrombocythemia; R50.81 Fever presenting with conditions classified elsewhere; Z88.1 Allergy status to other antibiotic agents; Z91.041 Radiographic dye allergy status; Z90.81 Acquired absence of spleen
CPT/HCPCS: 36415; 71045; 80048; 80053; 81003; 82550; 83605; 83615; 83690; 83735; 84100; 84165; 84443; 84484; 85007; 85025; 85044; 85610; 85651; 85730; 86140; 86850; 86900; 86901; 87040; 87081; 87181; 93306; 96360; 96372; 99285

== ENCOUNTER 2018-07-19 11:42 | Inpatient (IN) | payer MEDICAID ==
[2018-07-19] VITALS (7 sets, daily range): BP systolic 123–131; BP diastolic 54–78
[~2018-07-19] VITALS: Ht 167.6 cm; Wt 114.3 kg
[~2018-07-19 11:42] MED LIST changes: +ASPIRIN81 MG ORAL
[2018-07-19 12:39] LABS: BASOPHILS % (AUTO) 1.8 % (0.0-2.0); EOSINOPHILS % (AUTO) 0.2 % (0.0-3.0); HEMATOCRIT 28.7 % (42.0-52.0); HEMOGLOBIN 9.4 G/DL (14.2-18.0); LYMPHOCYTES % (AUTO) 27.2 % (20.0-45.0); MEAN CORPUSCULAR VOLUME 91 FL (80-99); MONOCYTES % (AUTO) 4.3 % (1.0-10.0); NEUTROPHILS % (AUTO) 66.6 % (45.0-75.0); PLATELET COUNT 384 K/UL (150-450); RED BLOOD COUNT 3.15 M/UL (4.70-6.10); WHITE BLOOD COUNT 8.6 K/UL (4.8-10.8)
[2018-07-19 12:49] LABS: ANION GAP 9 mmol/L (5-15); BLOOD UREA NITROGEN 5 mg/dL (7-18); CALCIUM 9.4 MG/DL (8.5-10.1); CARBON DIOXIDE 27 MMOL/L (21-32); CHLORIDE 102 MMOL/L (98-107); CREATININE 0.6 MG/DL (0.55-1.30); POTASSIUM 3.8 MMOL/L (3.5-5.1); SODIUM 138 MMOL/L (136-145)
--- NOTE | 2018-07-19 12:54 | Emergency Room Report ---
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 Denies any neck pain or photophobia denies any fevers Allergies: Coded Allergies: CEFTRIAXONE (Verified Allergy, Unknown, 04/20/16) Uncoded Allergies: CONTRAST (Adverse Reaction, Severe, Rash, 06/23/16) RADIOCONTRAST - RASH, ITCHING Patient History Past Medical History: see triage record Pertinent Family History: none Reviewed Nursing Documentation: PMH: Agreed; PSxH: Agreed Nursing Documentation-PMH Hx Cardiac Problems: Yes - sickle cell Hx Asthma: Yes Hx Cancer: No Hx Gastrointestinal Problems: Yes - Spleen removed (ab Surgery) Hx Neurological Problems: No - Left hip avascular necrosis Review of Systems All Other Systems: negative except mentioned in HPI Physical Exam Vital Signs Date Time Temp Pulse Resp B/P (MAP) Pulse Ox O2 Delivery O2 Flow Rate FiO2 07/19/18 11:50 100.0 56 18 126/69 96 Room Air Sp02 EP Interpretation: reviewed, normal General Appearance: well appearing, no apparent distress Head: normocephalic, atraumatic Eyes: bilateral eye PERRL, bilateral eye EOMI ENT: hearing 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, normal pharynx, TMs + canals normal, uvula midline Neck: full range of motion, supple, no meningismus, no bony tend Respiratory: lungs clear, normal breath sounds, no rhonchi, no respiratory distress, no retraction, no accessory muscle use Cardiovascular #1: normal peripheral pulses, regular rate, rhythm, no edema, no gallop, no JVD, no murmur Gastrointestinal: normal bowel sounds, non tender, soft, no mass, no organomegaly, non-distended, no guarding, no hernia, no pulsatile mass, no rebound Genitourinary: no CVA tenderness Musculoskeletal: normal inspection 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, responsive, digital marketing coordinator III-XII nml as tested, motor strength/ tone normal, sensory intact Psychiatric: mood/affect normal Skin: normal color, no rash, warm/dry, palpation normal Lymphatic: normal inspection, no adenopathy Medical Decision Making Diagnostic Impression: Primary Impression: Sickle cell crisis ER Course With the history exam and presentation, multiple differentials considered, including but not limited to appendicitis, gastritis, cholecystitis, diverticulitis Given the patient's history sickle cell crisis also entertained Patient's reticulocyte count is elevated Patient's further hydrated Requires repeat pain medication and at this time is admitted for further care Labs Test 07/19/18 12:20 White Blood Count 8.6 K/UL (4.8-10.8) Red Blood Count 3.15 M/UL (4.70-6.10) Hemoglobin 9.4 G/DL (14.2-18.0) Hematocrit 28.7 % (42.0-52.0) Mean Corpuscular Volume 91 FL (80-99) Mean Corpuscular Hemoglobin 29.9 PG (27.0-31.0) Mean Corpuscular Hemoglobin Concent 32.8 G/DL (32.0-36.0) Red Cell Distribution Width 17.0 % (11.6-14.8) Platelet Count 384 K/UL (150-450) Mean Platelet Volume 6.9 FL (6.5-10.1) Neutrophils (%) (Auto) 66.6 % (45.0-75.0) Lymphocytes (%) (Auto) 27.2 % (20.0-45.0) Monocytes (%) (Auto) 4.3 % (1.0-10.0) Eosinophils (%) (Auto) 0.2 % (0.0-3.0) Basophils (%) (Auto) 1.8 % (0.0-2.0) Reticulocyte Count 4.9 % (0.0-2.0) Sodium Level 138 MMOL/L (136-145) Potassium Level 3.8 MMOL/L (3.5-5.1) Chloride Level 102 MMOL/L (98-107) Carbon Dioxide Level 27 MMOL/L (21-32) Anion Gap 9 mmol/L (5-15) Blood Urea Nitrogen 5 mg/dL (7-18) Creatinine 0.6 MG/DL (0.55-1.30) Estimat Glomerular Filtration Rate > 60 mL/min (>60) Glucose Level 136 MG/DL (74-106) Calcium Level 9.4 MG/DL (8.5-10.1) Total Bilirubin 0.9 MG/DL (0.2-1.0) Aspartate Amino Transf (AST/SGOT) 66 U/L (15-37) Alanine Aminotransferase (ALT/SGPT) 133 U/L (12-78) Alkaline Phosphatase 125 U/L (46-116) Total Creatine Kinase 39 U/L (26-308) Creatine Kinase MB < 0.5 NG/ML (0.0-3.6) Creatine Kinase MB Relative Index 1.2 Total Protein 9.9 G/DL (6.4-8.2) Albumin 4.3 G/DL (3.4-5.0) Globulin 5.6 g/dL Albumin/Globulin Ratio 0.8 (1.0-2.7) Lipase 54 U/L (73-393) Rhythm Strip Diag. Results EP Interpretation: yes Rate: 60 Rhythm: NSR, no PVC's, no ectopy Last Vital Signs Date Time Temp Pulse Resp B/P (MAP) Pulse Ox O2 Delivery O2 Flow Rate FiO2 07/19/18 11:50 100.0 56 18 126/69 96 Room Air Status: improved Disposition: ADMITTED INPATIENT Condition: Serious CatherinezacTevin MENDOZA Jul 19, 2018 12:54
[2018-07-19] MEDS ORDERED: HYDROmorphone 1mg/ml Carpuject IM ONE (13:00)
[2018-07-19 13:03] LABS: ALANINE AMINOTRANSFERASE 133 U/L (12-78); ALBUMIN 4.3 G/DL (3.4-5.0); ALBUMIN/GLOBULIN RATIO 0.8 (1.0-2.7); ALKALINE PHOSPHATASE 125 U/L (46-116); ASPARTATE AMINO TRANSFERASE 66 U/L (15-37); BILIRUBIN,TOTAL 0.9 MG/DL (0.2-1.0); CKMB < 0.5 NG/ML (0.0-3.6); CREATINE KINASE 39 U/L (26-308)
[2018-07-19] MEDS ORDERED: HYDROmorphone 1 MG in NS 55 ML IV ONE (14:15)
[2018-07-19] MEDS ORDERED: HYDROmorphone 1mg/ml Carpuject IVP ONE (15:45)
[2018-07-19] MEDS ORDERED: LORazepam Inj 2mg/ml 1ml IV PRN (16:00)
[2018-07-19] MEDS ORDERED: Mylanta II UD 30ml ORAL PRN (16:00)
[2018-07-19] MEDS ORDERED: Zolpidem 5mg tab ORAL PRN (16:00)
[2018-07-19] MEDS ORDERED: Miralax 17gm pkt ORAL PRN (16:00)
--- NOTE | 2018-07-19 16:27 | Diagnostic Imaging Report ---
Indication: Shortness of breath Technique: One view of the chest Comparison: 06/11/2018 Findings: Lungs and pleural spaces are clear. Heart size is normal. Inspiration is suboptimal. No significant change Impression: No acute process
[2018-07-19] MEDS ORDERED: Morphine Sulfate 4mg/ml Inj (IV/IM USE ONLY) IVP PRN (18:00)
--- NOTE | 2018-07-19 18:27 | General Progress Note ---
Assessment/Plan Assessment/Plan (1) Sickle cell disease (2) Sickle cell crisis (3) Intractable pain Pt will be started on Dilaudid 1mg IV Q4H PRN severe pain and Oxycontin 30mg BID. D/w Dr. Tucker and he concurred. Thank you Subjective Date patient seen: Jul 19, 2018 Time patient seen: 05:30 - pm Allergies: Coded Allergies: CEFTRIAXONE (Verified Allergy, Unknown, 04/20/16) Uncoded Allergies: CONTRAST (Adverse Reaction, Severe, Rash, 06/23/16) RADIOCONTRAST - RASH, ITCHING Subjective Constitutional: Reports: chills, weakness HEENT: Reports: no symptoms Cardiovascular: Reports: no symptoms Respiratory: Reports: no symptoms Gastrointestinal/Abdominal: Reports: no symptoms Genitourinary: Reports: no symptoms Neurologic/Psychiatric: Reports: tingling, weakness Endocrine: Reports: no symptoms Hematologic/Lymphatic: Reports: no symptoms Subjective Patient is a known patient from prior admission admitted foe sickle cell crisis. Taking Oxycontin 20mg BID and Dilaudid 8mg Q4-6H. Objective Last 24 Hour Vital Signs Date Time Temp Pulse Resp B/P (MAP) Pulse Ox O2 Delivery O2 Flow Rate FiO2 07/19/18 18:10 Nasal Cannula 2.0 07/19/18 16:23 100.7 07/19/18 15:30 100.7 84 18 124/78 99 Nasal Cannula 3.0 07/19/18 15:20 100.1 51 24 125/67 87 Room Air 07/19/18 14:00 100.7 84 18 124/78 100 Room Air 07/19/18 13:32 100.7 07/19/18 13:00 100.1 62 16 130/62 100 Room Air 07/19/18 12:00 100.0 56 18 126/69 96 Room Air 07/19/18 12:00 56 18 Room Air 07/19/18 11:50 100.0 56 18 126/69 96 Room Air Laboratory Tests 07/19/18 12:20: White Blood Count 8.6, Red Blood Count 3.15L, Hemoglobin 9.4L, Hematocrit 28.7L , Mean Corpuscular Volume 91, Mean Corpuscular Hemoglobin 29.9, Mean Corpuscular Hemoglobin Concent 32.8, Red Cell Distribution Width 17.0H, Platelet Count 384, Mean Platelet Volume 6.9, Neutrophils (%) (Auto) 66.6, Lymphocytes (%) (Auto) 27.2, Monocytes (%) (Auto) 4.3, Eosinophils (%) (Auto) 0.2, Basophils (%) (Auto) 1.8, Reticulocyte Count 4.9H, Sodium Level 138, Potassium Level 3.8, Chloride Level 102, Carbon Dioxide Level 27, Anion Gap 9, Blood Urea Nitrogen 5L, Creatinine 0.6, Estimat Glomerular Filtration Rate > 60 , Glucose Level 136H, Calcium Level 9.4, Total Bilirubin 0.9, Aspartate Amino Transf (AST/SGOT) 66H, Alanine Aminotransferase (ALT/SGPT) 133H, Alkaline Phosphatase 125H, Total Creatine Kinase 39, Creatine Kinase MB < 0.5, Creatine Kinase MB Relative Index 1.2, Total Protein 9.9H, Albumin 4.3, Globulin 5.6, Albumin/Globulin Ratio 0.8L, Lipase 54L Height (Feet): 5 Height (Inches): 6.00 Weight (Pounds): 250 Objective General Appearance: no apparent distress, alert EENT: PERRL/EOMI, normal ENT inspection Neck: non-tender, normal alignment Cardiovascular: normal rate, regular rhythm Respiratory/Chest: decreased breath sounds Abdomen: non tender, soft Extremities: non-tender Edema: no edema noted Arm (L), no edema noted Arm (R), no edema noted Leg (L), no edema noted Leg (R), no edema noted Pedal (L), no edema noted Pedal (R), no edema noted Generalized Neurologic: alert, oriented x 3 Skin: warm/dry Orlando Oglesby Jul 19, 2018 18:27
[2018-07-19] MEDS: HYDROmorphone 1mg/ml Carpuject IVP PRN (20:06)
[2018-07-19] MEDS: oxyCONTIN 10mg tab ORAL SCH (23:08)
[2018-07-19] MEDS: Heparin 5000 units/ml inj SUBQ SCH (23:10)
[2018-07-20] VITALS (7 sets, daily range): BP systolic 116–138; BP diastolic 61–86
[2018-07-20] MEDS: HYDROmorphone 1mg/ml Carpuject IVP PRN ×6 (00:48→21:10)
--- NOTE | 2018-07-20 06:45 | Consultation ---
History of Present Illness General Chief Complaint: General Complaint Present Illness Allergies: Coded Allergies: CEFTRIAXONE (Verified Allergy, Unknown, 04/20/16) Uncoded Allergies: CONTRAST (Adverse Reaction, Severe, Rash, 06/23/16) RADIOCONTRAST - RASH, ITCHING Medication History Scheduled Aspirin* (Aspirin*), 81 MG ORAL DAILY, (Reported) Cholecalciferol (Vitamin D3)* (Vitamin D*), 1,000 UNIT ORAL DAILY, (Reported) Fluticasone/Salmeterol (Advair Hfa 115-21 Mcg Inhaler), 2 PUFFS INH EVERY 12 HOURS, (Reported) Folic Acid* (Folic Acid*), 1 MG ORAL DAILY, (Reported) Hydroxyurea* (Hydrea*), 3,000 MG PO DAILY, (Reported) Levofloxacin* (Levaquin*), 500 MG ORAL DAILY, (Reported) Oxycodone Hcl Er* (Oxycontin*), 20 MG ORAL EVERY 12 HOURS, (Reported) Scheduled PRN Hydromorphone Hcl (Hydromorphone Hcl), 4 MG PO Q4HR PRN for Severe Breakthru Pain (>7), (Reported) Ibuprofen* (Motrin*), 600 MG ORAL Q8H PRN for For Pain Patient History Healthcare decision maker Resuscitation status Full Code Advanced Directive on File Physical Exam Last 24 Hour Vital Signs Date Time Temp Pulse Resp B/P (MAP) Pulse Ox O2 Delivery O2 Flow Rate FiO2 07/20/18 04:00 44 07/20/18 00:00 54 07/20/18 00:00 98.0 54 20 138/67 (90) 99 07/19/18 21:00 44 07/19/18 21:00 Room Air 07/19/18 20:00 98.2 44 18 123/54 (77) 99 07/19/18 18:10 Nasal Cannula 2.0 07/19/18 17:18 47 07/19/18 17:00 98.2 50 16 131/74 (93) 99 07/19/18 16:57 100.0 60 16 128/98 100 Nasal Cannula 3.0 07/19/18 16:23 100.7 07/19/18 15:30 100.7 84 18 124/78 99 Nasal Cannula 3.0 07/19/18 15:20 100.1 51 24 125/67 87 Room Air 07/19/18 14:00 100.7 84 18 124/78 100 Room Air 07/19/18 13:32 100.7 18 13:00 100.1 62 16 130/62 100 Room Air 07/19/18 12:00 100.0 56 18 126/69 96 Room Air 07/19/18 12:00 56 18 Room Air 07/19/18 11:50 100.0 56 18 126/69 96 Room Air Intake and Output 07/19/18 07/20/18 18:59 06:59 Intake Total 1131 ml 75 ml Balance 1131 ml 75 ml Intake IV Total 1131 ml 75 ml # Voids 1 # Bowel Movements 1 Laboratory Tests Test 07/19/18 12:20 White Blood Count 8.6 K/UL (4.8-10.8) Red Blood Count 3.15 M/UL (4.70-6.10) L Hemoglobin 9.4 G/DL (14.2-18.0) L Hematocrit 28.7 % (42.0-52.0) L Mean Corpuscular Volume 91 FL (80-99) Mean Corpuscular Hemoglobin 29.9 PG (27.0-31.0) Mean Corpuscular Hemoglobin Concent 32.8 G/DL (32.0-36.0) Red Cell Distribution Width 17.0 % (11.6-14.8) H Platelet Count 384 K/UL (150-450) Mean Platelet Volume 6.9 FL (6.5-10.1) Neutrophils (%) (Auto) 66.6 % (45.0-75.0) Lymphocytes (%) (Auto) 27.2 % (20.0-45.0) Monocytes (%) (Auto) 4.3 % (1.0-10.0) Eosinophils (%) (Auto) 0.2 % (0.0-3.0) Basophils (%) (Auto) 1.8 % (0.0-2.0) Reticulocyte Count 4.9 % (0.0-2.0) H Sodium Level 138 MMOL/L (136-145) Potassium Level 3.8 MMOL/L (3.5-5.1) Chloride Level 102 MMOL/L (98-107) Carbon Dioxide Level 27 MMOL/L (21-32) Anion Gap 9 mmol/L (5-15) Blood Urea Nitrogen 5 mg/dL (7-18) L Creatinine 0.6 MG/DL (0.55-1.30) Estimat Glomerular Filtration Rate > 60 mL/min (>60) Glucose Level 136 MG/DL (74-106) H Calcium Level 9.4 MG/DL (8.5-10.1) Total Bilirubin 0.9 MG/DL (0.2-1.0) Aspartate Amino Transf (AST/SGOT) 66 U/L (15-37) H Alanine Aminotransferase (ALT/SGPT) 133 U/L (12-78) H Alkaline Phosphatase 125 U/L (46-116) H Total Creatine Kinase 39 U/L (26-308) Creatine Kinase MB < 0.5 NG/ML (0.0-3.6) Creatine Kinase MB Relative Index 1.2 Total Protein 9.9 G/DL (6.4-8.2) H Albumin 4.3 G/DL (3.4-5.0) Globulin 5.6 g/dL Albumin/Globulin Ratio 0.8 (1.0-2.7) L Lipase 54 U/L (73-393) L Height (Feet): 5 Height (Inches): 6.00 Weight (Pounds): 252 Medications Current Medications Medications (Trade) Dose Ordered Sig/Arianne Route PRN Reason Start Time Stop Time Status Last Admin Dose Admin Acetaminophen (Tylenol) 650 mg Q4H PRN ORAL fever 07/19/18 16:00 08/18/18 15:59 Al Hydroxide/Mg Hydroxide (Mylanta II) 30 ml Q6H PRN ORAL dyspepsia 07/19/18 16:00 08/18/18 15:59 Dextrose (Dextrose 50%) 50 ml Q30M PRN IV Hypoglycemia 07/19/18 16:00 08/18/18 15:59 Dextrose (Dextrose 50%) 50 ml Q30M PRN IV Hypoglycemia 07/19/18 16:15 08/18/18 16:14 Heparin Sodium (Porcine) (Heparin 5000 units/ml) 5,000 units EVERY 12 HOURS SUBQ 07/19/18 21:00 08/18/18 20:59 07/19/18 23:10 Hydromorphone HCl (Dilaudid) 1 mg Q4H PRN IVP severe pain 07/19/18 18:30 07/26/18 18:29 07/20/18 05:32 Lorazepam (Ativan 2mg/ml 1ml) 0.5 mg Q4H PRN IV For Anxiety 07/19/18 16:00 07/26/18 15:59 Ondansetron HCl (Zofran) 4 mg Q6H PRN IVP Nausea & Vomiting 07/19/18 16:00 08/18/18 15:59 Oxycodone HCl (OxyCONTIN) 30 mg Q12HR ORAL 07/19/18 21:00 07/26/18 20:59 07/19/18 23:08 Polyethylene Glycol (Miralax) 17 gm HSPRN PRN ORAL Constipation 07/19/18 16:00 08/18/18 15:59 Sodium Chloride 1,000 ml @ 75 mls/hr [id number] IV 07/19/18 15:58 08/18/18 15:57 07/20/18 05:37 Zolpidem Tartrate (Ambien) 5 mg HSPRN PRN ORAL Insomnia 07/19/18 16:00 07/26/18 15:59 07/19/18 22:55 Assessment/Plan Assessment/Plan Hematology Consult REQ MD: Tevin Weiner C: SS crisis DOS 07/20/18 ID: 22 y old male with 2 days of increased pain in his chest and left shoulder neck. He states this is how his sickle cell crisis occurs. Current crisis is sign worse. He's not been vomiting. The pain is 9/10 and aching. No cough, dysuria, rashes. No ND. No headache. Pain radiates from shoulder to neck. He states usually hgb 8.9. No recent transfusions. 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 He's had bacteremia in the past as well as sepsis. I've seen him before and this is presentation of crisis. Has been seeing Dr. Davenport 3x a week. Allergies: CEFTRIAXONE (Verified Allergy, Unknown, 04/20/16) CONTRAST (Adverse Reaction, Severe, Rash, 06/23/16) RADIOCONTRAST - RASH, ITCHING Past Medical History: see triage record Social History: Denies: smoking, alcohol use, drug use Social History Narrative at home Reviewed Nursing Documentation: PMH: Agreed; PSxH: Agreed Hx Asthma: Yes Hx Cancer: No Hx Gastrointestinal Problems: Yes All Other Systems: negative except mentioned in HPI PE: Vital Signs reviewed above Head: normocephalic Eyes: bilateral eye PERRL, bilateral eye conjunctivae pale ENT: moist mucus membranes Neck: supple Respiratory: lungs clear, normal breath sounds Cardiovascular: 2+ radial (R), regular rate, rhythm GI: normal inspection, normal bowel sounds, non tender, no mass, non-distended Musculoskeletal: back normal, gait/station normal, normal range of motion - with some tenderness with PROM of L shoulder Neurologic: alert, oriented x3, 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 Psychiatric: depressed affect Skin: pallor ASSESSMENT/RECS: 1. 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 --> Presented in sickle crisis. on hydrea, opioids --> retic daily which has been ordered --> cbc has been reviewed --> continue hydrea 3500mg po daily --> continue indiral powder adjunct medication --> appreciate pain management recs --> will increase ivc 150cc/hr 2. Anemia, secondary to sickle cell disease/B thalassemia --> trend hgb 9.4 3. Leukocytosis, secondary to reactive process, potentially sepsis as well as on antibiotics. --> hydration and analgesia. 4. Thrombocytosis, potentially secondary to reactive process. 5. Acute chest does have evidence of pna --> s/p antibiotics 6. Hyperbilirubinemia, potentially secondary to minor hemolysis. 7. Reticulocytosis consisting with sickle cell crisis. 8. Left should pain -- has been reviewed Appreciate consultation! Lewis Olmedo MD Jul 20, 2018 06:45
[2018-07-20 08:31] LABS: HEMATOCRIT 25.7 % (42.0-52.0); HEMOGLOBIN 8.2 G/DL (14.2-18.0); MEAN CORPUSCULAR VOLUME 92 FL (80-99); PLATELET COUNT 345 K/UL (150-450); RED BLOOD COUNT 2.79 M/UL (4.70-6.10); RED CELL DISTRIBUTION WIDTH 16.8 % (11.6-14.8); WHITE BLOOD COUNT 11.9 K/UL (4.8-10.8)
[2018-07-20 08:32] LABS: ALANINE AMINOTRANSFERASE 102 U/L (12-78); ALBUMIN 3.7 G/DL (3.4-5.0); ALBUMIN/GLOBULIN RATIO 0.7 (1.0-2.7); ALKALINE PHOSPHATASE 107 U/L (46-116); ANION GAP 8 mmol/L (5-15); ASPARTATE AMINO TRANSFERASE 44 U/L (15-37); BILIRUBIN,TOTAL 0.9 MG/DL (0.2-1.0); BLOOD UREA NITROGEN 6 mg/dL (7-18); CARBON DIOXIDE 27 MMOL/L (21-32); CHLORIDE 104 MMOL/L (98-107); CREATININE 0.7 MG/DL (0.55-1.30); LACTATE DEHYDROGENASE 174 U/L (81-234); POTASSIUM 3.7 MMOL/L (3.5-5.1); SODIUM 139 MMOL/L (136-145)
[2018-07-20] MEDS: oxyCONTIN 10mg tab ORAL SCH (08:39)
[2018-07-20] MEDS: Heparin 5000 units/ml inj SUBQ SCH ×2 (08:42→21:37)
--- NOTE | 2018-07-20 12:18 | Consultation ---
History of Present Illness General Date patient seen: Jul 20, 2018 Chief Complaint: General Complaint Present Illness HPI 22 year old male with hx of SCD presented to ER with body ache and fever of 101. Allergies: Coded Allergies: CEFTRIAXONE (Verified Allergy, Unknown, 04/20/16) Uncoded Allergies: CONTRAST (Adverse Reaction, Severe, Rash, 06/23/16) RADIOCONTRAST - RASH, ITCHING Medication History Scheduled Aspirin* (Aspirin*), 81 MG ORAL DAILY, (Reported) Cholecalciferol (Vitamin D3)* (Vitamin D*), 1,000 UNIT ORAL DAILY, (Reported) Fluticasone/Salmeterol (Advair Hfa 115-21 Mcg Inhaler), 2 PUFFS INH EVERY 12 HOURS, (Reported) Folic Acid* (Folic Acid*), 1 MG ORAL DAILY, (Reported) Hydroxyurea* (Hydrea*), 3,000 MG PO DAILY, (Reported) Levofloxacin* (Levaquin*), 500 MG ORAL DAILY, (Reported) Oxycodone Hcl Er* (Oxycontin*), 20 MG ORAL EVERY 12 HOURS, (Reported) Scheduled PRN Hydromorphone Hcl (Hydromorphone Hcl), 4 MG PO Q4HR PRN for Severe Breakthru Pain (>7), (Reported) Ibuprofen* (Motrin*), 600 MG ORAL Q8H PRN for For Pain Patient History Healthcare decision maker Resuscitation status Full Code Advanced Directive on File Past Medical/Surgical History Past Medical/Surgical History: (1) Sickle cell disease Review of Systems All Other Systems: negative except mentioned in HPI Physical Exam General Appearance: WD/WN Lines, tubes and drains: peripheral, central line HEENT: normocephalic, anicteric Neck: non-tender, supple Respiratory/Chest: chest wall non-tender, lungs clear Breasts: no masses Cardiovascular/Chest: normal rate Abdomen: normal bowel sounds Genitourinary/Rectal: normal rectal exam Last 24 Hour Vital Signs Date Time Temp Pulse Resp B/P (MAP) Pulse Ox O2 Delivery O2 Flow Rate FiO2 07/20/18 08:00 97.7 70 23 127/61 (83) 97 07/20/18 04:00 44 07/20/18 04:00 98.1 52 20 134/86 (102) 99 07/20/18 00:00 54 07/20/18 00:00 98.0 54 20 138/67 (90) 99 07/19/18 21:00 44 07/19/18 21:00 Room Air 07/19/18 20:00 98.2 44 18 123/54 (77) 99 07/19/18 18:10 Nasal Cannula 2.0 07/19/18 17:18 47 07/19/18 17:00 98.2 50 16 131/74 (93) 99 07/19/18 16:57 100.0 60 16 128/98 100 Nasal Cannula 3.0 07/19/18 16:23 100.7 07/19/18 15:30 100.7 84 18 124/78 99 Nasal Cannula 3.0 07/19/18 15:20 100.1 51 24 125/67 87 Room Air 07/19/18 14:00 100.7 84 18 124/78 100 Room Air 07/19/18 13:32 100.7 07/19/18 13:00 100.1 62 16 130/62 100 Room Air Intake and Output 07/19/18 07/20/18 19:00 07:00 Intake Total 1131 ml 1300 ml Balance 1131 ml 1300 ml Intake Oral 300 ml IV Total 1131 ml 1000 ml # Voids 1 3 # Bowel Movements 1 Laboratory Tests Test 07/19/18 12:20 07/20/18 07:25 White Blood Count 8.6 K/UL (4.8-10.8) 11.9 K/UL (4.8-10.8) H Red Blood Count 3.15 M/UL (4.70-6.10) L 2.79 M/UL (4.70-6.10) L Hemoglobin 9.4 G/DL (14.2-18.0) L 8.2 G/DL (14.2-18.0) L Hematocrit 28.7 % (42.0-52.0) L 25.7 % (42.0-52.0) L Mean Corpuscular Volume 91 FL (80-99) 92 FL (80-99) Mean Corpuscular Hemoglobin 29.9 PG (27.0-31.0) 29.5 PG (27.0-31.0) Mean Corpuscular Hemoglobin Concent 32.8 G/DL (32.0-36.0) 32.0 G/DL (32.0-36.0) Red Cell Distribution Width 17.0 % (11.6-14.8) H 16.8 % (11.6-14.8) H Platelet Count 384 K/UL (150-450) 345 K/UL (150-450) Mean Platelet Volume 6.9 FL (6.5-10.1) 7.3 FL (6.5-10.1) Neutrophils (%) (Auto) 66.6 % (45.0-75.0) % (45.0-75.0) Lymphocytes (%) (Auto) 27.2 % (20.0-45.0) % (20.0-45.0) Monocytes (%) (Auto) 4.3 % (1.0-10.0) % (1.0-10.0) Eosinophils (%) (Auto) 0.2 % (0.0-3.0) % (0.0-3.0) Basophils (%) (Auto) 1.8 % (0.0-2.0) % (0.0-2.0) Reticulocyte Count 4.9 % (0.0-2.0) H Sodium Level 138 MMOL/L (136-145) 139 MMOL/L (136-145) Potassium Level 3.8 MMOL/L (3.5-5.1) 3.7 MMOL/L (3.5-5.1) Chloride Level 102 MMOL/L (98-107) 104 MMOL/L (98-107) Carbon Dioxide Level 27 MMOL/L (21-32) 27 MMOL/L (21-32) Anion Gap 9 mmol/L (5-15) 8 mmol/L (5-15) Blood Urea Nitrogen 5 mg/dL (7-18) L 6 mg/dL (7-18) L Creatinine 0.6 MG/DL (0.55-1.30) 0.7 MG/DL (0.55-1.30) Estimat Glomerular Filtration Rate > 60 mL/min (>60) > 60 mL/min (>60) Glucose Level 136 MG/DL (74-106) H 108 MG/DL (74-106) H Calcium Level 9.4 MG/DL (8.5-10.1) 9.0 MG/DL (8.5-10.1) Total Bilirubin 0.9 MG/DL (0.2-1.0) 0.9 MG/DL (0.2-1.0) Aspartate Amino Transf (AST/SGOT) 66 U/L (15-37) H 44 U/L (15-37) H Alanine Aminotransferase (ALT/SGPT) 133 U/L (12-78) H 102 U/L (12-78) H Alkaline Phosphatase 125 U/L (46-116) H 107 U/L (46-116) Total Creatine Kinase 39 U/L (26-308) Creatine Kinase MB < 0.5 NG/ML (0.0-3.6) Creatine Kinase MB Relative Index 1.2 Total Protein 9.9 G/DL (6.4-8.2) H 8.7 G/DL (6.4-8.2) H Albumin 4.3 G/DL (3.4-5.0) 3.7 G/DL (3.4-5.0) Globulin 5.6 g/dL 5.0 g/dL Albumin/Globulin Ratio 0.8 (1.0-2.7) L 0.7 (1.0-2.7) L Lipase 54 U/L (73-393) L Differential Total Cells Counted 100 Neutrophils % (Manual) 53 % (45-75) Lymphocytes % (Manual) 37 % (20-45) Monocytes % (Manual) 9 % (1-10) Eosinophils % (Manual) 1 % (0-3) Basophils % (Manual) 0 % (0-2) Band Neutrophils 0 % (0-8) Nucleated Red Blood Cells 27 /100 WBC Platelet Estimate Adequate Platelet Morphology Normal Polychromasia 2+ Hypochromasia 2+ Anisocytosis 2+ Lactate Dehydrogenase 174 U/L (81-234) Height (Feet): 5 Height (Inches): 6.00 Weight (Pounds): 252 Medications Current Medications Medications (Trade) Dose Ordered Sig/Arianne Route PRN Reason Start Time Stop Time Status Last Admin Dose Admin Acetaminophen (Tylenol) 650 mg Q4H PRN ORAL fever 07/19/18 16:00 08/18/18 15:59 Al Hydroxide/Mg Hydroxide (Mylanta II) 30 ml Q6H PRN ORAL dyspepsia 07/19/18 16:00 08/18/18 15:59 Dextrose (Dextrose 50%) 50 ml Q30M PRN IV Hypoglycemia 07/19/18 16:00 08/18/18 15:59 Dextrose (Dextrose 50%) 50 ml Q30M PRN IV Hypoglycemia 07/19/18 16:15 08/18/18 16:14 Heparin Sodium (Porcine) (Heparin 5000 units/ml) 5,000 units EVERY 12 HOURS SUBQ 07/19/18 21:00 08/18/18 20:59 07/20/18 08:42 Hydromorphone HCl (Dilaudid) 1 mg Q4H PRN IVP severe pain 07/19/18 18:30 07/26/18 18:29 07/20/18 10:53 Lorazepam (Ativan 2mg/ml 1ml) 0.5 mg Q4H PRN IV For Anxiety 07/19/18 16:00 07/26/18 15:59 Ondansetron HCl (Zofran) 4 mg Q6H PRN IVP Nausea & Vomiting 07/19/18 16:00 08/18/18 15:59 Oxycodone HCl (OxyCONTIN) 30 mg Q12HR ORAL 07/19/18 21:00 07/26/18 20:59 07/20/18 08:39 Polyethylene Glycol (Miralax) 17 gm HSPRN PRN ORAL Constipation 07/19/18 16:00 08/18/18 15:59 Sodium Chloride 1,000 ml @ 150 mls/hr Q6H40M IV 07/20/18 15:58 07/20/18 16:00 07/20/18 07:16 Zolpidem Tartrate (Ambien) 5 mg HSPRN PRN ORAL Insomnia 07/19/18 16:00 07/26/18 15:59 07/19/18 22:55 Assessment/Plan Problem List: (1) Sickle cell crisis ICD Codes: D57.00 - Hb-SS disease with crisis, unspecified SNOMED: 701322438 (2) Sepsis ICD Codes: A41.9 - Sepsis, unspecified organism SNOMED: 44800796 Assessment/Plan iv fluids iv abx ID to see symptomatic treatment Nasal canula. Ranjith Caicedo MD Jul 20, 2018 12:18
--- NOTE | 2018-07-20 12:24 | Consultation ---
History of Present Illness General Date patient seen: Jul 20, 2018 Chief Complaint: General Complaint Present Illness HPI 22 y/o M with hx of asthma, sickle cell dz s/p splenectomy at age 4, L hip avascular necrosis presents to ED on 07/19 with b/l leg pain and upper shoulder pain. Dened CP, SOB, n/v/d, f/c Allergies: Coded Allergies: CEFTRIAXONE (Verified Allergy, Unknown, 04/20/16) Uncoded Allergies: CONTRAST (Adverse Reaction, Severe, Rash, 06/23/16) RADIOCONTRAST - RASH, ITCHING Medication History Scheduled Aspirin* (Aspirin*), 81 MG ORAL DAILY, (Reported) Cholecalciferol (Vitamin D3)* (Vitamin D*), 1,000 UNIT ORAL DAILY, (Reported) Fluticasone/Salmeterol (Advair Hfa 115-21 Mcg Inhaler), 2 PUFFS INH EVERY 12 HOURS, (Reported) Folic Acid* (Folic Acid*), 1 MG ORAL DAILY, (Reported) Hydroxyurea* (Hydrea*), 3,000 MG PO DAILY, (Reported) Levofloxacin* (Levaquin*), 500 MG ORAL DAILY, (Reported) Oxycodone Hcl Er* (Oxycontin*), 20 MG ORAL EVERY 12 HOURS, (Reported) Scheduled PRN Hydromorphone Hcl (Hydromorphone Hcl), 4 MG PO Q4HR PRN for Severe Breakthru Pain (>7), (Reported) Ibuprofen* (Motrin*), 600 MG ORAL Q8H PRN for For Pain Patient History Healthcare decision maker Resuscitation status Full Code Advanced Directive on File Patient History Narrative Pmhx: as above Shx: reviewed Fhx: non contributory Review of Systems All Other Systems: negative except mentioned in HPI Physical Exam Physical Exam Narrative General Appearance: well appearing, no apparent distress HEENT: normocephalic, atraumatic bilateral eye PERRL, bilateral eye EOMI, normal pharynx Neck: full range of motion, supple, no meningismus, no bony tend Respiratory: lungs clear, normal breath sounds, no rhonchi, no respiratory distress, no retraction, no accessory muscle use Cardiovascular: normal peripheral pulses, regular rate, rhythm, no edema, no gallop, no JVD, no murmur Gastrointestinal: normal bowel sounds, non tender, soft, no mass, no organomegaly, non-distended, no guarding, no hernia, no pulsatile mass, no rebound Genitourinary: no CVA tenderness Musculoskeletal: normal inspection 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, responsive, fisher trammel net III-XII nml as tested, motor strength/ tone normal, sensory intact Skin: normal color, no rash, warm/dry, palpation normal Lymphatic: normal inspection, no adenopathy Last 24 Hour Vital Signs Date Time Temp Pulse Resp B/P (MAP) Pulse Ox O2 Delivery O2 Flow Rate FiO2 07/20/18 08:00 97.7 70 23 127/61 (83) 97 07/20/18 04:00 44 07/20/18 04:00 98.1 52 20 134/86 (102) 99 07/20/18 00:00 54 07/20/18 00:00 98.0 54 20 138/67 (90) 99 07/19/18 21:00 44 07/19/18 21:00 Room Air 07/19/18 20:00 98.2 44 18 123/54 (77) 99 07/19/18 18:10 Nasal Cannula 2.0 07/19/18 17:18 47 07/19/18 17:00 98.2 50 16 131/74 (93) 99 07/19/18 16:57 100.0 60 16 128/98 100 Nasal Cannula 3.0 07/19/18 16:23 100.7 07/19/18 15:30 100.7 84 18 124/78 99 Nasal Cannula 3.0 07/19/18 15:20 100.1 51 24 125/67 87 Room Air 07/19/18 14:00 100.7 84 18 124/78 100 Room Air 07/19/18 13:32 100.7 07/19/18 13:00 100.1 62 16 130/62 100 Room Air Intake and Output 07/19/18 07/20/18 19:00 07:00 Intake Total 1131 ml 1300 ml Balance 1131 ml 1300 ml Intake Oral 300 ml IV Total 1131 ml 1000 ml # Voids 1 3 # Bowel Movements 1 Laboratory Tests Test 07/19/18 12:20 07/20/18 07:25 White Blood Count 8.6 K/UL (4.8-10.8) 11.9 K/UL (4.8-10.8) H Red Blood Count 3.15 M/UL (4.70-6.10) L 2.79 M/UL (4.70-6.10) L Hemoglobin 9.4 G/DL (14.2-18.0) L 8.2 G/DL (14.2-18.0) L Hematocrit 28.7 % (42.0-52.0) L 25.7 % (42.0-52.0) L Mean Corpuscular Volume 91 FL (80-99) 92 FL (80-99) Mean Corpuscular Hemoglobin 29.9 PG (27.0-31.0) 29.5 PG (27.0-31.0) Mean Corpuscular Hemoglobin Concent 32.8 G/DL (32.0-36.0) 32.0 G/DL (32.0-36.0) Red Cell Distribution Width 17.0 % (11.6-14.8) H 16.8 % (11.6-14.8) H Platelet Count 384 K/UL (150-450) 345 K/UL (150-450) Mean Platelet Volume 6.9 FL (6.5-10.1) 7.3 FL (6.5-10.1) Neutrophils (%) (Auto) 66.6 % (45.0-75.0) % (45.0-75.0) Lymphocytes (%) (Auto) 27.2 % (20.0-45.0) % (20.0-45.0) Monocytes (%) (Auto) 4.3 % (1.0-10.0) % (1.0-10.0) Eosinophils (%) (Auto) 0.2 % (0.0-3.0) % (0.0-3.0) Basophils (%) (Auto) 1.8 % (0.0-2.0) % (0.0-2.0) Reticulocyte Count 4.9 % (0.0-2.0) H Sodium Level 138 MMOL/L (136-145) 139 MMOL/L (136-145) Potassium Level 3.8 MMOL/L (3.5-5.1) 3.7 MMOL/L (3.5-5.1) Chloride Level 102 MMOL/L (98-107) 104 MMOL/L (98-107) Carbon Dioxide Level 27 MMOL/L (21-32) 27 MMOL/L (21-32) Anion Gap 9 mmol/L (5-15) 8 mmol/L (5-15) Blood Urea Nitrogen 5 mg/dL (7-18) L 6 mg/dL (7-18) L Creatinine 0.6 MG/DL (0.55-1.30) 0.7 MG/DL (0.55-1.30) Estimat Glomerular Filtration Rate > 60 mL/min (>60) > 60 mL/min (>60) Glucose Level 136 MG/DL (74-106) H 108 MG/DL (74-106) H Calcium Level 9.4 MG/DL (8.5-10.1) 9.0 MG/DL (8.5-10.1) Total Bilirubin 0.9 MG/DL (0.2-1.0) 0.9 MG/DL (0.2-1.0) Aspartate Amino Transf (AST/SGOT) 66 U/L (15-37) H 44 U/L (15-37) H Alanine Aminotransferase (ALT/SGPT) 133 U/L (12-78) H 102 U/L (12-78) H Alkaline Phosphatase 125 U/L (46-116) H 107 U/L (46-116) Total Creatine Kinase 39 U/L (26-308) Creatine Kinase MB < 0.5 NG/ML (0.0-3.6) Creatine Kinase MB Relative Index 1.2 Total Protein 9.9 G/DL (6.4-8.2) H 8.7 G/DL (6.4-8.2) H Albumin 4.3 G/DL (3.4-5.0) 3.7 G/DL (3.4-5.0) Globulin 5.6 g/dL 5.0 g/dL Albumin/Globulin Ratio 0.8 (1.0-2.7) L 0.7 (1.0-2.7) L Lipase 54 U/L (73-393) L Differential Total Cells Counted 100 Neutrophils % (Manual) 53 % (45-75) Lymphocytes % (Manual) 37 % (20-45) Monocytes % (Manual) 9 % (1-10) Eosinophils % (Manual) 1 % (0-3) Basophils % (Manual) 0 % (0-2) Band Neutrophils 0 % (0-8) Nucleated Red Blood Cells 27 /100 WBC Platelet Estimate Adequate Platelet Morphology Normal Polychromasia 2+ Hypochromasia 2+ Anisocytosis 2+ Lactate Dehydrogenase 174 U/L (81-234) Height (Feet): 5 Height (Inches): 6.00 Weight (Pounds): 252 Medications Current Medications Medications (Trade) Dose Ordered Sig/Arianne Route PRN Reason Start Time Stop Time Status Last Admin Dose Admin Acetaminophen (Tylenol) 650 mg Q4H PRN ORAL fever 07/19/18 16:00 08/18/18 15:59 Al Hydroxide/Mg Hydroxide (Mylanta II) 30 ml Q6H PRN ORAL dyspepsia 07/19/18 16:00 08/18/18 15:59 Dextrose (Dextrose 50%) 50 ml Q30M PRN IV Hypoglycemia 07/19/18 16:00 08/18/18 15:59 Dextrose (Dextrose 50%) 50 ml Q30M PRN IV Hypoglycemia 07/19/18 16:15 08/18/18 16:14 Heparin Sodium (Porcine) (Heparin 5000 units/ml) 5,000 units EVERY 12 HOURS SUBQ 07/19/18 21:00 08/18/18 20:59 07/20/18 08:42 Hydromorphone HCl (Dilaudid) 1 mg Q4H PRN IVP severe pain 07/19/18 18:30 07/26/18 18:29 07/20/18 10:53 Lorazepam (Ativan 2mg/ml 1ml) 0.5 mg Q4H PRN IV For Anxiety 07/19/18 16:00 07/26/18 15:59 Ondansetron HCl (Zofran) 4 mg Q6H PRN IVP Nausea & Vomiting 07/19/18 16:00 08/18/18 15:59 Oxycodone HCl (OxyCONTIN) 30 mg Q12HR ORAL 07/19/18 21:00 07/26/18 20:59 07/20/18 08:39 Polyethylene Glycol (Miralax) 17 gm HSPRN PRN ORAL Constipation 07/19/18 16:00 08/18/18 15:59 Sodium Chloride 1,000 ml @ 150 mls/hr Q6H40M IV 07/20/18 15:58 07/20/18 16:00 07/20/18 07:16 Zolpidem Tartrate (Ambien) 5 mg HSPRN PRN ORAL Insomnia 07/19/18 16:00 07/26/18 15:59 07/19/18 22:55 Assessment/Plan Assessment/Plan Abx: None Assessment: Sickle cell crisis Low grade fever Mild leukocytosis- suspect reactive to sickle cell crisis, no obvious infectious process at present- r/o Influenza -CXR: No acute process asthma 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 Will continue to follow along with you. Discussed with Anjana Easley M.D. Jul 20, 2018 12:24
[2018-07-20] MEDS ORDERED: LORazepam Inj 2mg/ml 1ml IV PRN (20:40)
[2018-07-20] MEDS ORDERED: Zolpidem 5mg tab ORAL PRN (20:40)
[2018-07-20] MEDS ORDERED: Miralax 17gm pkt ORAL PRN (20:40)
[2018-07-20] MEDS ORDERED: Mylanta II UD 30ml ORAL PRN (20:40)
[2018-07-20] MEDS ORDERED: oxyCONTIN 10mg tab ORAL SCH (21:00)
--- NOTE | 2018-07-20 21:00 | History and Physical Report ---
DATE OF ADMISSION: 07/19/2018 APPROXIMATE TIME: 07/20/2018 at 2 p.m. CONSULTING PHYSICIAN: Bubba Wesley D.O. CONSULTANTS: 1. Ranjith Caicedo M.D. 2. Miguelina Tucker M.D. CHIEF COMPLAINT: Knee pain, sickle cell crisis, and hypoxia. BRIEF HISTORY: This is a 22-year-old male who lives at home with history of sickle cell disease, presents with two-day increased knee pain and became lower extremity pain. He was very hypoxic, came to [facility], diagnosed with the above and admitted to telemetry for further care. Currently, slight shortness of breath. Slight bilateral leg pain, 7/10. No complaint. REVIEW OF SYSTEMS: No chest pain. Slight shortness of breath. No nausea, vomiting, or diarrhea. PAST MEDICAL HISTORY: Includes sickle cell disease and asthma. PAST SURGICAL HISTORY: Splenectomy. ALLERGIES: Ceftriaxone, contrast, and capsaicin. SOCIAL HISTORY: No smoking. No alcohol. No intravenous drug abuse. FAMILY HISTORY: Noncontributory. PHYSICAL EXAMINATION: GENERAL: Slightly anxious in bed, oriented x3, slight distress secondary to pain. VITAL SIGNS: Temperature is 100, pulse 54, respirations 20, and blood pressure 116/64. CARDIOVASCULAR: No murmurs. LUNGS: Distant and clear. ABDOMEN: Bowel sounds positive. Nontender. Nondistended. EXTREMITIES: No cyanosis, clubbing, or edema. NEUROLOGIC: Cranial nerves II through XII are grossly intact. Deep tendon reflexes 2+/4. Muscle strength 5/5. LABORATORY DATA: Labs at this time show white count 11.9, hemoglobin and hematocrit 8.42/25, and platelets 345. BMP shows BUN 6, glucose 108, AST 44, and AST 102. Otherwise, BMP is normal. MEDICATIONS: Include IV fluid, Dilaudid, heparin, OxyContin, Tylenol, Zofran, Ativan, and Mylanta. ASSESSMENT: 1. Sickle cell disease. 2. Hypoxia. 3. Anemia. 4. Knee pain. 5. Asthma. PLAN: 1. O2 and pulmonary treatment. 2. IV fluids. 3. Blood pressure and pain control. 4. Dietary followup. 5. CBC and BMP in the morning. Bubba Wesley D.O. DR: NICHOLE JOB#: [id number] CC:
[2018-07-21] VITALS (7 sets, daily range): BP systolic 110–144; BP diastolic 55–95
[2018-07-21] MEDS: HYDROmorphone 1mg/ml Carpuject IVP PRN ×4 (01:28→12:59)
[2018-07-21] MEDS: Heparin 5000 units/ml inj SUBQ SCH ×2 (09:07→21:46)
--- NOTE | 2018-07-21 09:33 | General Progress Note ---
Assessment/Plan Assessment/Plan (1) Sickle cell disease (2) Sickle cell crisis (3) Intractable pain Pt will be continued on Dilaudid and Oxycontin will be changed to TID. D/w Dr. Tucker and he concurred. Subjective Date patient seen: Jul 21, 2018 Time patient seen: 07:30 - am Allergies: Coded Allergies: CEFTRIAXONE (Verified Allergy, Unknown, 04/20/16) Uncoded Allergies: CONTRAST (Adverse Reaction, Severe, Rash, 06/23/16) RADIOCONTRAST - RASH, ITCHING Subjective Constitutional: Reports: chills, weakness HEENT: Reports: no symptoms Cardiovascular: Reports: no symptoms Respiratory: Reports: no symptoms Gastrointestinal/Abdominal: Reports: no symptoms Genitourinary: Reports: no symptoms Neurologic/Psychiatric: Reports: tingling, weakness Endocrine: Reports: no symptoms Hematologic/Lymphatic: Reports: no symptoms Subjective Patient has been c/o severe pain and the Dilaudid had been changed to Q3H PRN, however he feels is still not effective. I d/w him about increasing the Oxycontin to three times a day. Objective Last 24 Hour Vital Signs Date Time Temp Pulse Resp B/P (MAP) Pulse Ox O2 Delivery O2 Flow Rate FiO2 07/21/18 08:00 98.7 57 19 144/76 (98) 97 07/21/18 06:12 98.5 07/21/18 04:00 98.5 57 18 110/55 (73) 97 07/21/18 00:00 97.9 53 18 126/70 (88) 98 07/20/18 21:00 Room Air 07/20/18 20:30 99.0 58 18 130/71 (90) 97 07/20/18 20:00 98.6 56 20 118/69 (85) 96 07/20/18 20:00 66 07/20/18 16:00 97.7 70 23 127/61 (83) 97 07/20/18 15:44 76 07/20/18 12:00 49 07/20/18 12:00 100.0 54 20 116/64 (81) 100 07/20/18 11:39 49 Intake and Output 07/20/18 07/21/18 18:59 06:59 Intake Total 460 ml Balance 460 ml Intake Oral 460 ml # Voids 2 2 # Bowel Movements 1 Height (Feet): 5 Height (Inches): 6.00 Weight (Pounds): 252 Objective General Appearance: no apparent distress, alert EENT: PERRL/EOMI, normal ENT inspection Neck: non-tender, normal alignment Cardiovascular: normal rate, regular rhythm Respiratory/Chest: decreased breath sounds Abdomen: non tender, soft Extremities: non-tender Edema: no edema noted Arm (L), no edema noted Arm (R), no edema noted Leg (L), no edema noted Leg (R), no edema noted Pedal (L), no edema noted Pedal (R), no edema noted Generalized Neurologic: alert, oriented x 3 Skin: warm/dry Orlando Oglesby Jul 21, 2018 09:33
[2018-07-21] MEDS ORDERED: 1/2 NS 1000ml IV ONE (10:34)
[2018-07-21] MEDS: Hydroxyurea 500mg cap ORAL SCH (11:11)
--- NOTE | 2018-07-21 11:28 | General Progress Note ---
Assessment/Plan Problem List: (1) Asthma ICD Codes: J45.909 - Unspecified asthma, uncomplicated SNOMED: 213845659 (2) Sickle cell disease ICD Codes: D57.1 - Sickle-cell disease without crisis SNOMED: 339137959 (3) Knee pain, bilateral ICD Codes: M25.561 - Pain in right knee; M25.562 - Pain in left knee SNOMED: 64998787 (4) Sickle cell crisis ICD Codes: D57.00 - Hb-SS disease with crisis, unspecified SNOMED: 896844859 (5) Anemia ICD Codes: D64.9 - Anemia, unspecified SNOMED: 122751466 Status: unchanged Assessment/Plan pain control ivf heme f/u cbc bmp am Subjective Constitutional: Reports: weakness Gastrointestinal/Abdominal: Reports: nausea Allergies: Coded Allergies: CEFTRIAXONE (Verified Allergy, Unknown, 04/20/16) Uncoded Allergies: CONTRAST (Adverse Reaction, Severe, Rash, 06/23/16) RADIOCONTRAST - RASH, ITCHING All Systems: reviewed and negative except above Subjective leg pain 02/14 Objective Last 24 Hour Vital Signs Date Time Temp Pulse Resp B/P (MAP) Pulse Ox O2 Delivery O2 Flow Rate FiO2 07/21/18 09:38 98.7 07/21/18 08:00 98.7 57 19 144/76 (98) 97 07/21/18 04:00 98.5 57 18 110/55 (73) 97 07/21/18 00:00 97.9 53 18 126/70 (88) 98 07/20/18 21:00 Room Air 07/20/18 20:30 99.0 58 18 130/71 (90) 97 07/20/18 20:00 98.6 56 20 118/69 (85) 96 07/20/18 20:00 66 07/20/18 16:00 97.7 70 23 127/61 (83) 97 07/20/18 15:44 76 07/20/18 12:00 49 07/20/18 12:00 100.0 54 20 116/64 (81) 100 07/20/18 11:39 49 Intake and Output 07/20/18 07/21/18 19:00 07:00 Intake Total 460 ml Balance 460 ml Intake Oral 460 ml # Voids 2 2 # Bowel Movements 1 Height (Feet): 5 Height (Inches): 6.00 Weight (Pounds): 252 General Appearance: alert EENT: normal ENT inspection Neck: normal alignment Cardiovascular: normal peripheral pulses, normal rate, regular rhythm Respiratory/Chest: chest wall non-tender, lungs clear, normal breath sounds Abdomen: normal bowel sounds, non tender, soft Extremities: normal inspection Edema: no edema noted Arm (L), no edema noted Arm (R), no edema noted Leg (L), no edema noted Leg (R), no edema noted Pedal (L), no edema noted Pedal (R), no edema noted Generalized Neurologic: responsive, motor weakness Skin: normal pigmentation, warm/dry Bubba Wesley DO Jul 21, 2018 11:28
--- NOTE | 2018-07-21 14:02 | General Progress Note ---
Assessment/Plan Status: stable, unchanged Assessment/Plan 1. 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 --> Presented in sickle crisis. on hydrea, opioids --> retic daily which has been ordered --> cbc has been reviewed --> continue hydrea 3500mg po daily --> continue indiral powder adjunct medication --> appreciate pain management recs --> will increase ivc 150cc/hr 2. Anemia, secondary to sickle cell disease/B thalassemia --> hgb goal >7, transfuse prn. 3. Leukocytosis, secondary to reactive process, potentially sepsis as well as on antibiotics. --> Monitor and trend wbc for improvement 4. Thrombocytosis, potentially secondary to reactive process. --> Improved/Resolved 5. Acute chest does have evidence of pna --> s/p antibiotics 6. Hyperbilirubinemia, potentially secondary to minor hemolysis. 7. Reticulocytosis consisting with sickle cell crisis. 8. Left shoulder pain. Appreciate consultation. Subjective Date patient seen: Jul 21, 2018 Hematologic/Lymphatic: Reports: anemia Allergies: Coded Allergies: CEFTRIAXONE (Verified Allergy, Unknown, 04/20/16) Uncoded Allergies: CONTRAST (Adverse Reaction, Severe, Rash, 06/23/16) RADIOCONTRAST - RASH, ITCHING All Systems: reviewed and negative except above Subjective Pt awake and alert. No acute events. Pt reports pain in bilateral legs and nausea. Pt refused am lab draw. Objective Last 24 Hour Vital Signs Date Time Temp Pulse Resp B/P (MAP) Pulse Ox O2 Delivery O2 Flow Rate FiO2 07/21/18 12:00 99.3 51 19 144/76 (98) 98 07/21/18 09:38 98.7 07/21/18 09:00 Room Air 07/21/18 08:00 98.7 57 19 144/76 (98) 97 07/21/18 04:00 98.5 57 18 110/55 (73) 97 07/21/18 00:00 97.9 53 18 126/70 (88) 98 07/20/18 21:00 Room Air 07/20/18 20:30 99.0 58 18 130/71 (90) 97 07/20/18 20:00 98.6 56 20 118/69 (85) 96 07/20/18 20:00 66 07/20/18 16:00 97.7 70 23 127/61 (83) 97 07/20/18 15:44 76 Intake and Output 07/20/18 07/21/18 19:00 07:00 Intake Total 460 ml Balance 460 ml Intake Oral 460 ml # Voids 2 2 # Bowel Movements 1 Height (Feet): 5 Height (Inches): 6.00 Weight (Pounds): 252 Objective PE: Vital Signs: reviewed Head: normocephalic Eyes: bilateral eye PERRL, bilateral eye conjunctivae pale ENT: moist mucus membranes Neck: supple Respiratory: lungs clear, normal breath sounds Cardiovascular: 2+ radial (R), regular rate, rhythm GI: normal inspection, normal bowel sounds, non tender, no mass, non-distended Musculoskeletal: back normal, gait/station normal, normal range of motion - with some tenderness with PROM of L shoulder Neurologic: alert, oriented x3, 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 Psychiatric: depressed affect Skin: pallor Lewis Olmedo MD Jul 21, 2018 14:02
[2018-07-21] MEDS: oxyCONTIN 10mg tab ORAL SCH ×2 (14:20→22:51)
--- NOTE | 2018-07-21 15:40 | Infectious Diseases Prog Note ---
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 Will continue to follow along with you. Discussed with RN Subjective Allergies: Coded Allergies: CEFTRIAXONE (Verified Allergy, Unknown, 04/20/16) Uncoded Allergies: CONTRAST (Adverse Reaction, Severe, Rash, 06/23/16) RADIOCONTRAST - RASH, ITCHING Subjective afebrile >24hrs no cbc today Objective Vital Signs Last 24 Hour Vital Signs Date Time Temp Pulse Resp B/P (MAP) Pulse Ox O2 Delivery O2 Flow Rate FiO2 07/21/18 14:18 99.3 07/21/18 12:00 99.3 51 19 144/76 (98) 98 07/21/18 09:00 Room Air 07/21/18 08:00 98.7 57 19 144/76 (98) 97 07/21/18 04:00 98.5 57 18 110/55 (73) 97 07/21/18 00:00 97.9 53 18 126/70 (88) 98 07/20/18 21:00 Room Air 07/20/18 20:30 99.0 58 18 130/71 (90) 97 07/20/18 20:00 98.6 56 20 118/69 (85) 96 07/20/18 20:00 66 07/20/18 16:00 97.7 70 23 127/61 (83) 97 07/20/18 15:44 76 Height (Feet): 5 Height (Inches): 6.00 Weight (Pounds): 252 Objective General Appearance: well appearing, no apparent distress HEENT: normocephalic, atraumatic bilateral eye PERRL, bilateral eye EOMI, normal pharynx Neck: full range of motion, supple, no meningismus, no bony tend Respiratory: lungs clear, normal breath sounds, no rhonchi, no respiratory distress, no retraction, no accessory muscle use Cardiovascular: normal peripheral pulses, regular rate, rhythm, no edema, no gallop, no JVD, no murmur Gastrointestinal: normal bowel sounds, non tender, soft, no mass, no organomegaly, non-distended, no guarding, no hernia, no pulsatile mass, no rebound Genitourinary: no CVA tenderness Musculoskeletal: normal inspection 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, 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, 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, motor strength/ tone normal, sensory intact Skin: normal color, no rash, warm/dry, palpation normal Lymphatic: normal inspection, no adenopathy Current Medications Medications (Trade) Dose Ordered Sig/Arianne Route PRN Reason Start Time Stop Time Status Last Admin Dose Admin Acetaminophen (Tylenol) 650 mg Q4H PRN ORAL fever (Temp>100.5F) 07/20/18 20:45 08/19/18 20:44 Al Hydroxide/Mg Hydroxide (Mylanta II) 30 ml Q6H PRN ORAL dyspepsia 07/20/18 20:40 08/18/18 20:39 Dextrose (Dextrose 50%) 50 ml Q30M PRN IV Hypoglycemia 07/20/18 20:30 08/18/18 15:59 Dextrose (Dextrose 50%) 50 ml Q30M PRN IV Hypoglycemia 07/20/18 20:45 08/18/18 16:14 Heparin Sodium (Porcine) (Heparin 5000 units/ml) 5,000 units EVERY 12 HOURS SUBQ 07/20/18 21:00 08/18/18 20:59 07/21/18 09:07 Hydromorphone HCl (Dilaudid) 2 mg Q3H PRN IVP For Pain 07/21/18 14:40 07/27/18 20:39 Hydroxyurea (Hydrea) 3,000 mg DAILY ORAL 07/21/18 09:15 07/26/18 09:14 07/21/18 11:11 Lorazepam (Ativan 2mg/ml 1ml) 0.5 mg Q4H PRN IV For Anxiety 07/20/18 20:40 07/27/18 20:39 Ondansetron HCl (Zofran) 4 mg Q4H PRN IVP Nausea & Vomiting 07/21/18 14:45 08/20/18 14:44 Oxycodone HCl (OxyCONTIN) 30 mg Q8HR ORAL 07/21/18 14:00 07/28/18 13:59 07/21/18 14:20 Polyethylene Glycol (Miralax) 17 gm HSPRN PRN ORAL Constipation 07/20/18 20:40 08/19/18 20:39 Sodium Chloride 1,000 ml @ 125 mls/hr Q8H IV 07/21/18 13:15 07/22/18 13:14 07/21/18 14:19 Zolpidem Tartrate (Ambien) 5 mg HSPRN PRN ORAL Insomnia 07/20/18 20:40 07/27/18 20:39 07/20/18 23:48 Anjana Bang M.D. Jul 21, 2018 15:40
[2018-07-21 17:21] LABS: PHOSPHORUS 4.3 MG/DL (2.5-4.9)
[2018-07-21 17:24] LABS: ALANINE AMINOTRANSFERASE 94 U/L (12-78); ALBUMIN 3.9 G/DL (3.4-5.0); ALBUMIN/GLOBULIN RATIO 0.8 (1.0-2.7); ALKALINE PHOSPHATASE 103 U/L (46-116); ANION GAP 10 mmol/L (5-15); ASPARTATE AMINO TRANSFERASE 34 U/L (15-37); BILIRUBIN,TOTAL 0.9 MG/DL (0.2-1.0); BLOOD UREA NITROGEN 6 mg/dL (7-18); CARBON DIOXIDE 26 MMOL/L (21-32); CHLORIDE 104 MMOL/L (98-107); CREATININE 0.5 MG/DL (0.55-1.30); HEMATOCRIT 26.4 % (42.0-52.0); HEMOGLOBIN 8.6 G/DL (14.2-18.0); LACTATE DEHYDROGENASE 169 U/L (81-234); MEAN CORPUSCULAR VOLUME 92 FL (80-99); PLATELET COUNT 361 K/UL (150-450); POTASSIUM 3.6 MMOL/L (3.5-5.1); RED BLOOD COUNT 2.87 M/UL (4.70-6.10); RED CELL DISTRIBUTION WIDTH 16.9 % (11.6-14.8); SODIUM 140 MMOL/L (136-145)
[2018-07-21 17:44] LABS: WHITE BLOOD COUNT 29.7 K/UL (4.8-10.8)
[2018-07-22 00:34] VITALS: BP 126/64
[2018-07-22 04:33] VITALS: BP 117/56
[2018-07-22 04:41] LABS: HEMOGLOBIN 8.2 G/DL (14.2-18.0); MEAN CORPUSCULAR VOLUME 93 FL (80-99); PLATELET COUNT 329 K/UL (150-450); RED CELL DISTRIBUTION WIDTH 17.1 % (11.6-14.8)
[2018-07-22 04:49] LABS: WHITE BLOOD COUNT 28.1 K/UL (4.8-10.8)
[2018-07-22 05:05] LABS: ALANINE AMINOTRANSFERASE 84 U/L (12-78); ALBUMIN 3.5 G/DL (3.4-5.0); ALBUMIN/GLOBULIN RATIO 0.7 (1.0-2.7); ALKALINE PHOSPHATASE 96 U/L (46-116); ANION GAP 8 mmol/L (5-15); ASPARTATE AMINO TRANSFERASE 46 U/L (15-37); BLOOD UREA NITROGEN 6 mg/dL (7-18); CALCIUM 8.7 MG/DL (8.5-10.1); CARBON DIOXIDE 25 MMOL/L (21-32); CHLORIDE 105 MMOL/L (98-107); CREATININE 0.5 MG/DL (0.55-1.30); POTASSIUM 4.3 MMOL/L (3.5-5.1); SODIUM 138 MMOL/L (136-145)
[2018-07-22] MEDS: oxyCONTIN 10mg tab ORAL SCH ×3 (06:22→21:48)
[2018-07-22 08:00] VITALS: BP 108/59
[2018-07-22] MEDS: Hydroxyurea 500mg cap ORAL SCH (08:08)
[2018-07-22] MEDS: Heparin 5000 units/ml inj SUBQ SCH ×2 (08:08→22:34)
--- NOTE | 2018-07-22 08:33 | Infectious Diseases Prog Note ---
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 Will continue to follow along with you. Subjective Allergies: Coded Allergies: CEFTRIAXONE (Verified Allergy, Unknown, 04/20/16) Uncoded Allergies: CONTRAST (Adverse Reaction, Severe, Rash, 06/23/16) RADIOCONTRAST - RASH, ITCHING Subjective Afebrile today Leukocytosis improving Objective Vital Signs Last 24 Hour Vital Signs Date Time Temp Pulse Resp B/P (MAP) Pulse Ox O2 Delivery O2 Flow Rate FiO2 07/22/18 07:28 98.1 07/22/18 04:33 98.1 55 18 117/56 (76) 100 07/22/18 00:34 98.4 54 18 126/64 (84) 98 07/21/18 21:41 Room Air 07/21/18 20:00 99.4 53 18 126/60 (82) 98 07/21/18 17:30 78 24 123/78 (93) 99 07/21/18 16:00 99.7 55 17 133/95 (108) 98 07/21/18 14:18 99.3 07/21/18 12:00 99.3 51 19 144/76 (98) 98 07/21/18 09:00 Room Air Height (Feet): 5 Height (Inches): 6.00 Weight (Pounds): 252 Objective General Appearance: NAD HEENT: NCAT, MMM, EOMI Respiratory: CTAB, No Wheezing Cardiovascular: normal peripheral pulses, regular rate, rhythm Gastrointestinal: normal bowel sounds, non tender, soft Laboratory Tests Test 07/21/18 16:50 07/22/18 04:26 White Blood Count 29.7 K/UL (4.8-10.8) #*H 28.1 K/UL (4.8-10.8) *H Red Blood Count 2.87 M/UL (4.70-6.10) L 2.70 M/UL (4.70-6.10) L Hemoglobin 8.6 G/DL (14.2-18.0) L 8.2 G/DL (14.2-18.0) L Hematocrit 26.4 % (42.0-52.0) L 25.0 % (42.0-52.0) L Mean Corpuscular Volume 92 FL (80-99) 93 FL (80-99) Mean Corpuscular Hemoglobin 30.0 PG (27.0-31.0) 30.2 PG (27.0-31.0) Mean Corpuscular Hemoglobin Concent 32.7 G/DL (32.0-36.0) 32.6 G/DL (32.0-36.0) Red Cell Distribution Width 16.9 % (11.6-14.8) H 17.1 % (11.6-14.8) H Platelet Count 361 K/UL (150-450) 329 K/UL (150-450) Mean Platelet Volume 7.1 FL (6.5-10.1) 7.1 FL (6.5-10.1) Neutrophils (%) (Auto) % (45.0-75.0) % (45.0-75.0) Lymphocytes (%) (Auto) % (20.0-45.0) % (20.0-45.0) Monocytes (%) (Auto) % (1.0-10.0) % (1.0-10.0) Eosinophils (%) (Auto) % (0.0-3.0) % (0.0-3.0) Basophils (%) (Auto) % (0.0-2.0) % (0.0-2.0) Differential Total Cells Counted 100 Neutrophils % (Manual) 57 % (45-75) Pending Lymphocytes % (Manual) 35 % (20-45) Pending Monocytes % (Manual) 6 % (1-10) Eosinophils % (Manual) 1 % (0-3) Basophils % (Manual) 1 % (0-2) Band Neutrophils 0 % (0-8) Nucleated Red Blood Cells 28 /100 WBC Platelet Estimate Adequate Pending Platelet Morphology Normal Pending Polychromasia 1+ Hypochromasia 2+ Anisocytosis 2+ Target Cells 1+ Sodium Level 140 MMOL/L (136-145) 138 MMOL/L (136-145) Potassium Level 3.6 MMOL/L (3.5-5.1) 4.3 MMOL/L (3.5-5.1) Chloride Level 104 MMOL/L (98-107) 105 MMOL/L (98-107) Carbon Dioxide Level 26 MMOL/L (21-32) 25 MMOL/L (21-32) Anion Gap 10 mmol/L (5-15) 8 mmol/L (5-15) Blood Urea Nitrogen 6 mg/dL (7-18) L 6 mg/dL (7-18) L Creatinine 0.5 MG/DL (0.55-1.30) L 0.5 MG/DL (0.55-1.30) L Estimat Glomerular Filtration Rate > 60 mL/min (>60) > 60 mL/min (>60) Glucose Level 98 MG/DL (74-106) 96 MG/DL (74-106) Calcium Level 9.0 MG/DL (8.5-10.1) 8.7 MG/DL (8.5-10.1) Phosphorus Level 4.3 MG/DL (2.5-4.9) Magnesium Level 2.1 MG/DL (1.8-2.4) Total Bilirubin 0.9 MG/DL (0.2-1.0) 1.0 MG/DL (0.2-1.0) Aspartate Amino Transf (AST/SGOT) 34 U/L (15-37) 46 U/L (15-37) H Alanine Aminotransferase (ALT/SGPT) 94 U/L (12-78) H 84 U/L (12-78) H Alkaline Phosphatase 103 U/L (46-116) 96 U/L (46-116) Lactate Dehydrogenase 169 U/L (81-234) 179 U/L (81-234) Total Protein 8.9 G/DL (6.4-8.2) H 8.2 G/DL (6.4-8.2) Albumin 3.9 G/DL (3.4-5.0) 3.5 G/DL (3.4-5.0) Globulin 5.0 g/dL 4.7 g/dL Albumin/Globulin Ratio 0.8 (1.0-2.7) L 0.7 (1.0-2.7) L Current Medications Medications (Trade) Dose Ordered Sig/Arianne Route PRN Reason Start Time Stop Time Status Last Admin Dose Admin Acetaminophen (Tylenol) 650 mg Q4H PRN ORAL fever (Temp>100.5F) 07/20/18 20:45 08/19/18 20:44 Al Hydroxide/Mg Hydroxide (Mylanta II) 30 ml Q6H PRN ORAL dyspepsia 07/20/18 20:40 08/18/18 20:39 Dextrose (Dextrose 50%) 50 ml Q30M PRN IV Hypoglycemia 07/20/18 20:30 08/18/18 15:59 Dextrose (Dextrose 50%) 50 ml Q30M PRN IV Hypoglycemia 07/20/18 20:45 08/18/18 16:14 Heparin Sodium (Porcine) (Heparin 5000 units/ml) 5,000 units EVERY 12 HOURS SUBQ 07/20/18 21:00 08/18/18 20:59 07/21/18 21:46 Hydromorphone HCl (Dilaudid) 2 mg Q3H PRN IVP For Pain 07/21/18 14:40 07/27/18 20:39 07/22/18 06:58 Hydroxyurea (Hydrea) 3,000 mg DAILY ORAL 07/21/18 09:15 07/26/18 09:14 07/22/18 08:08 Lorazepam (Ativan 2mg/ml 1ml) 0.5 mg Q4H PRN IV For Anxiety 07/20/18 20:40 07/27/18 20:39 Ondansetron HCl (Zofran) 4 mg Q4H PRN IVP Nausea & Vomiting 07/21/18 14:45 08/20/18 14:44 07/21/18 21:40 Oxycodone HCl (OxyCONTIN) 30 mg Q8HR ORAL 07/21/18 14:00 07/28/18 13:59 07/22/18 06:22 Polyethylene Glycol (Miralax) 17 gm HSPRN PRN ORAL Constipation 07/20/18 20:40 08/19/18 20:39 Sodium Chloride 1,000 ml @ 125 mls/hr Q8H IV 07/21/18 13:15 07/22/18 13:14 07/21/18 21:43 Zolpidem Tartrate (Ambien) 5 mg HSPRN PRN ORAL Insomnia 07/20/18 20:40 07/27/18 20:39 07/20/18 23:48 Yasmany Martin MD Jul 22, 2018 08:33
--- NOTE | 2018-07-22 09:04 | General Progress Note ---
Assessment/Plan Problem List: (1) Asthma ICD Codes: J45.909 - Unspecified asthma, uncomplicated SNOMED: 108877795 (2) Sickle cell disease ICD Codes: D57.1 - Sickle-cell disease without crisis SNOMED: 310292467 (3) Knee pain, bilateral ICD Codes: M25.561 - Pain in right knee; M25.562 - Pain in left knee SNOMED: 38738170 (4) Sickle cell crisis ICD Codes: D57.00 - Hb-SS disease with crisis, unspecified SNOMED: 824855423 (5) Anemia ICD Codes: D64.9 - Anemia, unspecified SNOMED: 331148715 Status: unchanged Assessment/Plan picc line id eval pain control ivf heme f/u cbc bmp am Subjective Constitutional: Reports: weakness Respiratory: Reports: shortness of breath Allergies: Coded Allergies: CEFTRIAXONE (Verified Allergy, Unknown, 04/20/16) Uncoded Allergies: CONTRAST (Adverse Reaction, Severe, Rash, 06/23/16) RADIOCONTRAST - RASH, ITCHING All Systems: reviewed and negative except above Subjective leg pain 02/14 Objective Last 24 Hour Vital Signs Date Time Temp Pulse Resp B/P (MAP) Pulse Ox O2 Delivery O2 Flow Rate FiO2 07/22/18 07:28 98.1 07/22/18 04:33 98.1 55 18 117/56 (76) 100 07/22/18 00:34 98.4 54 18 126/64 (84) 98 07/21/18 21:41 Room Air 07/21/18 20:00 99.4 53 18 126/60 (82) 98 07/21/18 17:30 78 24 123/78 (93) 99 07/21/18 16:00 99.7 55 17 133/95 (108) 98 07/21/18 14:18 99.3 07/21/18 12:00 99.3 51 19 144/76 (98) 98 Intake and Output 07/21/18 07/22/18 18:59 06:59 Intake Total 750 ml 1075 ml Balance 750 ml 1075 ml Intake Oral 75 ml IV Total 500 ml 1000 ml Other 250 ml # Voids 3 2 Laboratory Tests 07/21/18 16:50: White Blood Count 29.7#*H, Red Blood Count 2.87L, Hemoglobin 8.6L, Hematocrit 26.4L, Mean Corpuscular Volume 92, Mean Corpuscular Hemoglobin 30.0, Mean Corpuscular Hemoglobin Concent 32.7, Red Cell Distribution Width 16.9H, Platelet Count 361, Mean Platelet Volume 7.1, Neutrophils (%) (Auto) , Lymphocytes (%) (Auto) , Monocytes (%) (Auto) , Eosinophils (%) (Auto) , Basophils (%) (Auto) , Differential Total Cells Counted 100, Neutrophils % ( Manual) 57, Lymphocytes % (Manual) 35, Monocytes % (Manual) 6, Eosinophils % ( Manual) 1, Basophils % (Manual) 1, Band Neutrophils 0, Nucleated Red Blood Cells 28, Platelet Estimate Adequate, Platelet Morphology Normal, Polychromasia 1+, Hypochromasia 2+, Anisocytosis 2+, Target Cells 1+, Sodium Level 140, Potassium Level 3.6, Chloride Level 104, Carbon Dioxide Level 26, Anion Gap 10, Blood Urea Nitrogen 6L, Creatinine 0.5L, Estimat Glomerular Filtration Rate > 60 , Glucose Level 98, Calcium Level 9.0, Phosphorus Level 4.3, Magnesium Level 2.1 , Total Bilirubin 0.9, Aspartate Amino Transf (AST/SGOT) 34, Alanine Aminotransferase (ALT/SGPT) 94H, Alkaline Phosphatase 103, Lactate Dehydrogenase 169, Total Protein 8.9H, Albumin 3.9, Globulin 5.0, Albumin/ Globulin Ratio 0.8L 07/22/18 04:26: White Blood Count 28.1*H, Red Blood Count 2.70L, Hemoglobin 8.2L, Hematocrit 25.0L, Mean Corpuscular Volume 93, Mean Corpuscular Hemoglobin 30.2, Mean Corpuscular Hemoglobin Concent 32.6, Red Cell Distribution Width 17.1H, Platelet Count 329, Mean Platelet Volume 7.1, Neutrophils (%) (Auto) , Lymphocytes (%) (Auto) , Monocytes (%) (Auto) , Eosinophils (%) (Auto) , Basophils (%) (Auto) , Neutrophils % (Manual) [Pending], Lymphocytes % (Manual) [Pending], Platelet Estimate [Pending], Platelet Morphology [Pending], Sodium Level 138, Potassium Level 4.3, Chloride Level 105, Carbon Dioxide Level 25, Anion Gap 8, Blood Urea Nitrogen 6L, Creatinine 0.5L, Estimat Glomerular Filtration Rate > 60, Glucose Level 96, Calcium Level 8.7, Total Bilirubin 1.0, Aspartate Amino Transf (AST/SGOT) 46H, Alanine Aminotransferase (ALT/SGPT) 84H, Alkaline Phosphatase 96, Lactate Dehydrogenase 179, Total Protein 8.2, Albumin 3.5, Globulin 4.7, Albumin/Globulin Ratio 0.7L Height (Feet): 5 Height (Inches): 6.00 Weight (Pounds): 252 General Appearance: alert EENT: normal ENT inspection Neck: normal alignment Cardiovascular: normal peripheral pulses, normal rate, regular rhythm Respiratory/Chest: chest wall non-tender, lungs clear, normal breath sounds Abdomen: normal bowel sounds, non tender, soft Extremities: normal inspection Edema: no edema noted Arm (L), no edema noted Arm (R), no edema noted Leg (L), no edema noted Leg (R), no edema noted Pedal (L), no edema noted Pedal (R), no edema noted Generalized Neurologic: responsive, motor weakness Skin: normal pigmentation, warm/dry Bubba Wesley DO Jul 22, 2018 09:04
[2018-07-22 12:00] VITALS: BP 119/56
[2018-07-22 16:00] VITALS: BP 117/58
[2018-07-22 20:00] VITALS: BP 132/60
[2018-07-23] VITALS: BP 122/62
[2018-07-23 04:00] VITALS: BP 105/52
[2018-07-23] MEDS: oxyCONTIN 10mg tab ORAL SCH ×3 (06:24→21:32)
[2018-07-23 08:00] VITALS: BP 111/49
--- NOTE | 2018-07-23 08:57 | General Progress Note ---
Assessment/Plan Problem List: (1) Asthma ICD Codes: J45.909 - Unspecified asthma, uncomplicated SNOMED: 067134985 (2) Sickle cell disease ICD Codes: D57.1 - Sickle-cell disease without crisis SNOMED: 789606779 (3) Knee pain, bilateral ICD Codes: M25.561 - Pain in right knee; M25.562 - Pain in left knee SNOMED: 17338252 (4) Sickle cell crisis ICD Codes: D57.00 - Hb-SS disease with crisis, unspecified SNOMED: 129789490 (5) Anemia ICD Codes: D64.9 - Anemia, unspecified SNOMED: 834716590 Status: unchanged Assessment/Plan o2nc picc line id eval pain control ivf heme f/u cbc bmp am Subjective Constitutional: Reports: weakness Allergies: Coded Allergies: CEFTRIAXONE (Verified Allergy, Unknown, 04/20/16) Uncoded Allergies: CONTRAST (Adverse Reaction, Severe, Rash, 06/23/16) RADIOCONTRAST - RASH, ITCHING All Systems: reviewed and negative except above Subjective o2nc leg pain 02/14 Objective Last 24 Hour Vital Signs Date Time Temp Pulse Resp B/P (MAP) Pulse Ox O2 Delivery O2 Flow Rate FiO2 07/23/18 07:52 Room Air 07/23/18 04:00 97.3 61 16 105/52 (69) 99 07/23/18 00:00 98.9 60 16 122/62 (82) 98 07/22/18 21:00 Room Air 07/22/18 20:00 99.2 60 16 132/60 (84) 98 07/22/18 16:00 98.6 59 19 117/58 (77) 99 07/22/18 12:00 98.2 59 18 119/56 (77) 99 07/22/18 09:00 Room Air Intake and Output 07/22/18 07/23/18 19:00 07:00 Intake Total 625 ml 1975 ml Balance 625 ml 1975 ml Intake Oral 500 ml 600 ml IV Total 125 ml 1375 ml # Voids 2 # Bowel Movements 1 1 Height (Feet): 5 Height (Inches): 6.00 Weight (Pounds): 252 General Appearance: alert EENT: normal ENT inspection Neck: normal alignment Cardiovascular: normal peripheral pulses, normal rate, regular rhythm Respiratory/Chest: chest wall non-tender, lungs clear, normal breath sounds Abdomen: normal bowel sounds, non tender, soft Extremities: normal inspection Edema: no edema noted Arm (L), no edema noted Arm (R), no edema noted Leg (L), no edema noted Leg (R), no edema noted Pedal (L), no edema noted Pedal (R), no edema noted Generalized Neurologic: responsive, motor weakness Skin: normal pigmentation, warm/dry Bubba Wesley DO Jul 23, 2018 08:57
[2018-07-23] MEDS: Hydroxyurea 500mg cap ORAL SCH (08:58)
[2018-07-23] MEDS: Heparin 5000 units/ml inj SUBQ SCH ×2 (09:02→20:07)
--- NOTE | 2018-07-23 09:26 | General Progress Note ---
Assessment/Plan Assessment/Plan 1. 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 --> Presented in sickle crisis. on hydrea, opioids --> retic daily which has been ordered --> cbc has been reviewed --> continue hydrea 3500mg po daily --> continue indiral powder adjunct medication --> appreciate pain management recs --> on ns 2. Anemia, secondary to sickle cell disease/B thalassemia --> hgb goal >7, transfuse prn. 3. Leukocytosis, secondary to reactive process, potentially sepsis as well as on antibiotics. --> Monitor and trend wbc for improvement --> given uptrending, concerning for infection, cultures as needed, may need picc line --> ON ABX as per ID, appreciate recs 4. Thrombocytosis, potentially secondary to reactive process. --> Improved/Resolved 5. Acute chest does have evidence of pna --> s/p antibiotics 6. Hyperbilirubinemia, potentially secondary to minor hemolysis. 7. Reticulocytosis consisting with sickle cell crisis. 8. Left shoulder pain. Appreciate consultation. Subjective Constitutional: Denies: no symptoms, chills, diaphoresis, fever, malaise, weakness, other HEENT: Denies: no symptoms, eye pain, blurred vision, tearing, double vision, ear pain, ear discharge, nose pain, nose congestion, throat pain, throat swelling, mouth pain, mouth swelling, other Cardiovascular: Denies: no symptoms, chest pain, edema, irregular heart rate, lightheadedness, palpitations, syncope, other Respiratory: Denies: no symptoms, cough, orthopnea, shortness of breath, SOB with excertion, SOB at rest, sputum, stridor, wheezing, other Gastrointestinal/Abdominal: Denies: no symptoms, abdomen distended, abdominal pain, black stools, tarry stools, blood in stool, constipated, diarrhea, difficulty swallowing, nausea, poor appetite, poor fluid intake, rectal bleeding , vomiting, other Neurologic/Psychiatric: Denies: no symptoms, anxiety, depressed, emotional problems, headache, numbness, paresthesia, pre-existing deficit, seizure, tingling, tremors, weakness, other Endocrine: Denies: no symptoms, excessive sweating, flushing, intolerance to cold, intolerance to heat, increased hunger, increased thirst, increased urine, unexplained weight gain, unexplained weight loss, other Hematologic/Lymphatic: Denies: no symptoms, anemia, easy bleeding, easy bruising, other Allergies: Coded Allergies: CEFTRIAXONE (Verified Allergy, Unknown, 04/20/16) Uncoded Allergies: CONTRAST (Adverse Reaction, Severe, Rash, 06/23/16) RADIOCONTRAST - RASH, ITCHING Subjective Pt awake and alert. No acute events. Pt reports pain in bilateral legs and nausea. Less pain but wbc elevated Objective Last 24 Hour Vital Signs Date Time Temp Pulse Resp B/P (MAP) Pulse Ox O2 Delivery O2 Flow Rate FiO2 07/23/18 07:52 Room Air 07/23/18 04:00 97.3 61 16 105/52 (69) 99 07/23/18 00:00 98.9 60 16 122/62 (82) 98 07/22/18 21:00 Room Air 07/22/18 20:00 99.2 60 16 132/60 (84) 98 07/22/18 16:00 98.6 59 19 117/58 (77) 99 07/22/18 12:00 98.2 59 18 119/56 (77) 99 Intake and Output 07/22/18 07/23/18 18:59 06:59 Intake Total 500 ml 2100 ml Balance 500 ml 2100 ml Intake Oral 500 ml 600 ml IV Total 1500 ml # Voids 2 # Bowel Movements 1 1 Height (Feet): 5 Height (Inches): 6.00 Weight (Pounds): 252 Objective PE: Vital Signs: reviewed Head: normocephalic Eyes: bilateral eye PERRL, bilateral eye conjunctivae pale ENT: moist mucus membranes Neck: supple Respiratory: lungs clear, normal breath sounds Cardiovascular: 2+ radial (R), regular rate, rhythm GI: normal inspection, normal bowel sounds, non tender, no mass, non-distended Musculoskeletal: back normal, gait/station normal, normal rom Neurologic: alert, oriented x3, 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 Psychiatric: depressed affect Skin: pallor Lewis Olmedo MD Jul 23, 2018 09:26
[2018-07-23 12:00] VITALS: BP 116/58
[2018-07-23 16:00] VITALS: BP 127/54
[2018-07-23 20:00] VITALS: BP 109/69
[2018-07-24] VITALS: BP 112/71
[2018-07-24 04:00] VITALS: BP 115/75
[2018-07-24] MEDS: oxyCONTIN 10mg tab ORAL SCH ×3 (06:36→22:57)
[2018-07-24 08:00] VITALS: BP 141/80
[2018-07-24 08:12] LABS: ANION GAP 8 mmol/L (5-15); BLOOD UREA NITROGEN 3 mg/dL (7-18); CALCIUM 9.1 MG/DL (8.5-10.1); CARBON DIOXIDE 26 MMOL/L (21-32); CHLORIDE 105 MMOL/L (98-107); CREATININE 0.5 MG/DL (0.55-1.30); POTASSIUM 4.6 MMOL/L (3.5-5.1); SODIUM 139 MMOL/L (136-145)
[2018-07-24] MEDS: Hydroxyurea 500mg cap ORAL SCH (08:51)
[2018-07-24] MEDS ORDERED: Heparin 2000 units/Ns 1000ml INJ PRN (09:00)
[2018-07-24] MEDS ORDERED: Lidocaine 1% Plain 30 ml INJ PRN (09:00)
[2018-07-24] MEDS: Heparin 5000 units/ml inj SUBQ SCH ×2 (10:30→20:46)
[2018-07-24 11:17] LABS: HEMATOCRIT 25.3 % (42.0-52.0); MEAN CORPUSCULAR VOLUME 92 FL (80-99); PLATELET COUNT 361 K/UL (150-450); RED BLOOD COUNT 2.74 M/UL (4.70-6.10); RED CELL DISTRIBUTION WIDTH 17.2 % (11.6-14.8)
--- NOTE | 2018-07-24 11:52 | Diagnostic Imaging Report ---
Indications: Needs long-term IV access Technique: Ultrasound confirms patent compressible left basilic vein. Total sterile technique, including sterile probe cover and sterile gel, hat, mask, sterile gown, large sterile drape, and preparation with 2% chlorhexidine utilized. Local anesthesia with 1% lidocaine. Under real-time ultrasound guidance, puncture left basilic vein using 21-gauge needle, documented and archived, passage 0.018 guidewire under direct fluoroscopy, which was used to determine appropriate catheter length, exchange for 5 M[place]ese peel-away sheath. 5 [place] Bard dual-lumen power PICC cut to 47 cm. It was inserted through the peel-away sheath. Peel-away sheath and guidewire removed. Catheter fixed to the skin. Both catheter ports aspirated and flushed. Patient tolerated procedure well, without immediate complication. Digital radiograph documents satisfactory catheter tip position, at the cavoatrial junction. Total fluoroscopy time 0.25 minutes. Total dose area product 0.25865 mGycm2 Total number of images: 1 Impression: Successful placement of left arm PICC under sonographic and fluoroscopic guidance, as described above.
[2018-07-24 12:00] VITALS: BP 113/57
--- NOTE | 2018-07-24 12:15 | Infectious Diseases Prog Note ---
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 Will continue to follow along with you. Subjective Allergies: Coded Allergies: CEFTRIAXONE (Verified Allergy, Unknown, 04/20/16) Uncoded Allergies: CONTRAST (Adverse Reaction, Severe, Rash, 06/23/16) RADIOCONTRAST - RASH, ITCHING Subjective afebrile >72hrs leukocytosis resolved Objective Vital Signs Last 24 Hour Vital Signs Date Time Temp Pulse Resp B/P (MAP) Pulse Ox O2 Delivery O2 Flow Rate FiO2 07/24/18 09:00 Room Air 07/24/18 08:00 99.4 62 20 141/80 (100) 96 07/24/18 04:00 98.9 71 18 115/75 (88) 98 07/24/18 00:00 98.7 75 18 112/71 (85) 99 07/23/18 21:00 Room Air 07/23/18 20:00 99.6 71 18 109/69 (82) 100 07/23/18 16:00 98.7 59 18 127/54 (78) 100 Height (Feet): 5 Height (Inches): 6.00 Weight (Pounds): 252 Objective General Appearance: well appearing, no apparent distress HEENT: normocephalic, atraumatic bilateral eye PERRL, bilateral eye EOMI, normal pharynx Neck: full range of motion, supple, no meningismus, no bony tend Respiratory: lungs clear, normal breath sounds, no rhonchi, no respiratory distress, no retraction, no accessory muscle use Cardiovascular: normal peripheral pulses, regular rate, rhythm, no edema, no gallop, no JVD, no murmur Gastrointestinal: normal bowel sounds, non tender, soft, no mass, no organomegaly, non-distended, no guarding, no hernia, no pulsatile mass, no rebound Genitourinary: no CVA tenderness Musculoskeletal: normal inspection 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, 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, 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, motor strength/ tone normal, sensory intact Skin: normal color, no rash, warm/dry, palpation normal Lymphatic: normal inspection, no adenopathy Microbiology Date/Time Source Procedure Growth Status 07/22/18 09:24 Nasopharynx Influenza Types A,B Antigen (CHAR) - Final Complete Laboratory Tests Test 07/24/18 06:30 07/24/18 11:10 Sodium Level 139 MMOL/L (136-145) Potassium Level 4.6 MMOL/L (3.5-5.1) Chloride Level 105 MMOL/L (98-107) Carbon Dioxide Level 26 MMOL/L (21-32) Anion Gap 8 mmol/L (5-15) Blood Urea Nitrogen 3 mg/dL (7-18) L Creatinine 0.5 MG/DL (0.55-1.30) L Estimat Glomerular Filtration Rate > 60 mL/min (>60) Glucose Level 96 MG/DL (74-106) Calcium Level 9.1 MG/DL (8.5-10.1) White Blood Count 9.0 K/UL (4.8-10.8) Red Blood Count 2.74 M/UL (4.70-6.10) L Hemoglobin 8.0 G/DL (14.2-18.0) L Hematocrit 25.3 % (42.0-52.0) L Mean Corpuscular Volume 92 FL (80-99) Mean Corpuscular Hemoglobin 29.2 PG (27.0-31.0) Mean Corpuscular Hemoglobin Concent 31.7 G/DL (32.0-36.0) L Red Cell Distribution Width 17.2 % (11.6-14.8) H Platelet Count 361 K/UL (150-450) Mean Platelet Volume 7.4 FL (6.5-10.1) Neutrophils (%) (Auto) % (45.0-75.0) Lymphocytes (%) (Auto) % (20.0-45.0) Monocytes (%) (Auto) % (1.0-10.0) Eosinophils (%) (Auto) % (0.0-3.0) Basophils (%) (Auto) % (0.0-2.0) Differential Total Cells Counted 100 Neutrophils % (Manual) 40 % (45-75) L Lymphocytes % (Manual) 45 % (20-45) Monocytes % (Manual) 10 % (1-10) Eosinophils % (Manual) 4 % (0-3) H Basophils % (Manual) 0 % (0-2) Band Neutrophils 1 % (0-8) Nucleated Red Blood Cells 60 /100 WBC Platelet Estimate Adequate Platelet Morphology Normal Basophilic Stippling 1+ Anisocytosis 2+ Macrocytosis 1+ Target Cells 2+ Erythrocyte Sedimentation Rate Pending Current Medications Medications (Trade) Dose Ordered Sig/Arianne Route PRN Reason Start Time Stop Time Status Last Admin Dose Admin Acetaminophen (Tylenol) 650 mg Q4H PRN ORAL fever (Temp>100.5F) 07/20/18 20:45 08/19/18 20:44 Al Hydroxide/Mg Hydroxide (Mylanta II) 30 ml Q6H PRN ORAL dyspepsia 07/20/18 20:40 08/18/18 20:39 07/22/18 22:29 Chlorhexidine Gluconate (Jihan-Hex 2%) 1 applic DAILY@2000 TOPIC 07/24/18 20:00 08/23/18 19:59 Dextrose (Dextrose 50%) 50 ml Q30M PRN IV Hypoglycemia 07/20/18 20:30 08/18/18 15:59 Dextrose (Dextrose 50%) 50 ml Q30M PRN IV Hypoglycemia 07/20/18 20:45 08/18/18 16:14 Heparin Sodium (Porcine) (Heparin 5000 units/ml) 5,000 units EVERY 12 HOURS SUBQ 07/20/18 21:00 08/18/18 20:59 07/24/18 10:30 Heparin Sodium/ Sodium Chloride (Heparin 2000 units/Ns 1000ml premix) 2,000 unit ONCE PRN INJ picc line placement 07/24/18 09:00 07/26/18 08:59 Hydromorphone HCl (Dilaudid) 2 mg Q3H PRN IVP For Pain 07/21/18 14:40 07/27/18 20:39 07/24/18 10:34 Hydroxyurea (Hydrea) 3,000 mg DAILY ORAL 07/21/18 09:15 07/26/18 09:14 07/24/18 08:51 Lidocaine HCl (Xylocaine 1% 30ml) 30 ml ONCE PRN INJ picc line placement 07/24/18 09:00 07/26/18 08:59 Lorazepam (Ativan 2mg/ml 1ml) 0.5 mg Q4H PRN IV For Anxiety 07/20/18 20:40 07/27/18 20:39 Ondansetron HCl (Zofran) 4 mg Q4H PRN IVP Nausea & Vomiting 07/21/18 14:45 08/20/18 14:44 07/23/18 23:02 Oxycodone HCl (OxyCONTIN) 30 mg Q8HR ORAL 07/21/18 14:00 07/28/18 13:59 07/24/18 06:36 Polyethylene Glycol (Miralax) 17 gm HSPRN PRN ORAL Constipation 07/20/18 20:40 08/19/18 20:39 Sodium Chloride 1,000 ml @ 125 mls/hr Q8H IV 07/22/18 16:15 08/21/18 16:14 07/24/18 07:42 Zolpidem Tartrate (Ambien) 5 mg HSPRN PRN ORAL Insomnia 07/20/18 20:40 07/27/18 20:39 07/20/18 23:48 Anjana Bang M.D. Jul 24, 2018 12:15
--- NOTE | 2018-07-24 14:47 | General Progress Note ---
Assessment/Plan Problem List: (1) Asthma ICD Codes: J45.909 - Unspecified asthma, uncomplicated SNOMED: 596196069 (2) Sickle cell disease ICD Codes: D57.1 - Sickle-cell disease without crisis SNOMED: 749102817 (3) Knee pain, bilateral ICD Codes: M25.561 - Pain in right knee; M25.562 - Pain in left knee SNOMED: 79052884 (4) Sickle cell crisis ICD Codes: D57.00 - Hb-SS disease with crisis, unspecified SNOMED: 897711402 (5) Anemia ICD Codes: D64.9 - Anemia, unspecified SNOMED: 379307254 Status: stable, progressing Assessment/Plan o2nc picc line id eval pain control ivf heme f/u cbc bmp am Subjective Constitutional: Reports: weakness Respiratory: Reports: shortness of breath Allergies: Coded Allergies: CEFTRIAXONE (Verified Allergy, Unknown, 04/20/16) Uncoded Allergies: CONTRAST (Adverse Reaction, Severe, Rash, 06/23/16) RADIOCONTRAST - RASH, ITCHING All Systems: reviewed and negative except above Subjective o2nc leg pain 02/14 Objective Last 24 Hour Vital Signs Date Time Temp Pulse Resp B/P (MAP) Pulse Ox O2 Delivery O2 Flow Rate FiO2 07/24/18 12:00 99.1 62 19 113/57 (75) 99 07/24/18 09:00 Room Air 07/24/18 08:00 99.4 62 20 141/80 (100) 96 07/24/18 04:00 98.9 71 18 115/75 (88) 98 07/24/18 00:00 98.7 75 18 112/71 (85) 99 07/23/18 21:00 Room Air 07/23/18 20:00 99.6 71 18 109/69 (82) 100 07/23/18 16:00 98.7 59 18 127/54 (78) 100 Intake and Output 07/23/18 07/24/18 19:00 07:00 Intake Total 1325 ml 2100 ml Balance 1325 ml 2100 ml Intake Oral 600 ml IV Total 125 ml 1500 ml Other 1200 ml # Voids 1 Laboratory Tests 07/24/18 06:30: Sodium Level 139, Potassium Level 4.6, Chloride Level 105, Carbon Dioxide Level 26, Anion Gap 8, Blood Urea Nitrogen 3L, Creatinine 0.5L, Estimat Glomerular Filtration Rate > 60, Glucose Level 96, Calcium Level 9.1 07/24/18 11:10: White Blood Count 9.0, Red Blood Count 2.74L, Hemoglobin 8.0L, Hematocrit 25.3L , Mean Corpuscular Volume 92, Mean Corpuscular Hemoglobin 29.2, Mean Corpuscular Hemoglobin Concent 31.7L, Red Cell Distribution Width 17.2H, Platelet Count 361, Mean Platelet Volume 7.4, Neutrophils (%) (Auto) , Lymphocytes (%) (Auto) , Monocytes (%) (Auto) , Eosinophils (%) (Auto) , Basophils (%) (Auto) , Differential Total Cells Counted 100, Neutrophils % ( Manual) 40L, Lymphocytes % (Manual) 45, Monocytes % (Manual) 10, Eosinophils % ( Manual) 4H, Basophils % (Manual) 0, Band Neutrophils 1, Nucleated Red Blood Cells 60, Platelet Estimate Adequate, Platelet Morphology Normal, Basophilic Stippling 1+, Anisocytosis 2+, Macrocytosis 1+, Target Cells 2+, Erythrocyte Sedimentation Rate 36H Height (Feet): 5 Height (Inches): 6.00 Weight (Pounds): 252 General Appearance: lethargic EENT: normal ENT inspection Neck: normal alignment Cardiovascular: normal peripheral pulses, normal rate, regular rhythm Respiratory/Chest: chest wall non-tender, decreased breath sounds Abdomen: normal bowel sounds, non tender, soft Extremities: normal inspection Edema: no edema noted Arm (L), no edema noted Arm (R), no edema noted Leg (L), no edema noted Leg (R), no edema noted Pedal (L), no edema noted Pedal (R), no edema noted Generalized Neurologic: responsive, motor weakness Skin: normal pigmentation, warm/dry Bubba Wesley DO Jul 24, 2018 14:47
[2018-07-24 16:00] VITALS: BP 139/57
--- NOTE | 2018-07-24 18:12 | General Progress Note ---
Assessment/Plan Assessment/Plan 1. 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 --> Presented in sickle crisis. on hydrea, opioids --> retic daily which has been ordered --> cbc has been reviewed --> continue hydrea 3500mg po daily --> continue indiral powder adjunct medication --> appreciate pain management recs --> on ns as per pcp and better 2. Anemia, secondary to sickle cell disease/B thalassemia --> hgb goal >7, transfuse prn. 3. Leukocytosis, secondary to reactive process, potentially sepsis as well as on antibiotics. --> Monitor and trend wbc for improvement --> given uptrending, concerning for infection, cultures as needed --> ON ABX as per ID, appreciate recs --> now improved 4. Thrombocytosis, potentially secondary to reactive process. --> Improved/Resolved 5. Acute chest does have evidence of pna --> s/p antibiotics 6. Hyperbilirubinemia, potentially secondary to minor hemolysis. 7. Reticulocytosis consisting with sickle cell crisis. 8. Left shoulder pain. Appreciate consultation. Subjective Constitutional: Denies: no symptoms, chills, diaphoresis, fever, malaise, weakness, other HEENT: Denies: no symptoms, eye pain, blurred vision, tearing, double vision, ear pain, ear discharge, nose pain, nose congestion, throat pain, throat swelling, mouth pain, mouth swelling, other Cardiovascular: Denies: no symptoms, chest pain, edema, irregular heart rate, lightheadedness, palpitations, syncope, other Respiratory: Denies: no symptoms, cough, orthopnea, shortness of breath, SOB with excertion, SOB at rest, sputum, stridor, wheezing, other Gastrointestinal/Abdominal: Denies: no symptoms, abdomen distended, abdominal pain, black stools, tarry stools, blood in stool, constipated, diarrhea, difficulty swallowing, nausea, poor appetite, poor fluid intake, rectal bleeding , vomiting, other Genitourinary: Denies: no symptoms, burning, discharge, frequency, flank pain, hematuria, incontinence, pain, urgency, other Neurologic/Psychiatric: Denies: no symptoms, anxiety, depressed, emotional problems, headache, numbness, paresthesia, pre-existing deficit, seizure, tingling, tremors, weakness, other Endocrine: Denies: no symptoms, excessive sweating, flushing, intolerance to cold, intolerance to heat, increased hunger, increased thirst, increased urine, unexplained weight gain, unexplained weight loss, other Hematologic/Lymphatic: Denies: no symptoms, anemia, easy bleeding, easy bruising, other Allergies: Coded Allergies: CEFTRIAXONE (Verified Allergy, Unknown, 04/20/16) Uncoded Allergies: CONTRAST (Adverse Reaction, Severe, Rash, 06/23/16) RADIOCONTRAST - RASH, ITCHING Subjective Pt awake and alert. No acute events. Pt reports pain in bilateral legs and nausea. Less pain and wbc lower Objective Last 24 Hour Vital Signs Date Time Temp Pulse Resp B/P (MAP) Pulse Ox O2 Delivery O2 Flow Rate FiO2 07/24/18 16:00 99.8 75 20 139/57 (84) 96 07/24/18 12:00 99.1 62 19 113/57 (75) 99 07/24/18 09:00 Room Air 07/24/18 08:00 99.4 62 20 141/80 (100) 96 07/24/18 04:00 98.9 71 18 115/75 (88) 98 07/24/18 00:00 98.7 75 18 112/71 (85) 99 07/23/18 21:00 Room Air 07/23/18 20:00 99.6 71 18 109/69 (82) 100 Intake and Output 07/23/18 07/24/18 18:59 06:59 Intake Total 1200 ml 2100 ml Balance 1200 ml 2100 ml Intake Oral 600 ml IV Total 1500 ml Other 1200 ml # Voids 1 Laboratory Tests 07/24/18 06:30: Sodium Level 139, Potassium Level 4.6, Chloride Level 105, Carbon Dioxide Level 26, Anion Gap 8, Blood Urea Nitrogen 3L, Creatinine 0.5L, Estimat Glomerular Filtration Rate > 60, Glucose Level 96, Calcium Level 9.1 07/24/18 11:10: White Blood Count 9.0, Red Blood Count 2.74L, Hemoglobin 8.0L, Hematocrit 25.3L , Mean Corpuscular Volume 92, Mean Corpuscular Hemoglobin 29.2, Mean Corpuscular Hemoglobin Concent 31.7L, Red Cell Distribution Width 17.2H, Platelet Count 361, Mean Platelet Volume 7.4, Neutrophils (%) (Auto) , Lymphocytes (%) (Auto) , Monocytes (%) (Auto) , Eosinophils (%) (Auto) , Basophils (%) (Auto) , Differential Total Cells Counted 100, Neutrophils % ( Manual) 40L, Lymphocytes % (Manual) 45, Monocytes % (Manual) 10, Eosinophils % ( Manual) 4H, Basophils % (Manual) 0, Band Neutrophils 1, Nucleated Red Blood Cells 60, Platelet Estimate Adequate, Platelet Morphology Normal, Basophilic Stippling 1+, Anisocytosis 2+, Macrocytosis 1+, Target Cells 2+, Erythrocyte Sedimentation Rate 36H Height (Feet): 5 Height (Inches): 6.00 Weight (Pounds): 252 General Appearance: alert EENT: normal ENT inspection Objective PE: Vital Signs: reviewed Head: normocephalic Eyes: bilateral eye PERRL, bilateral eye conjunctivae pale ENT: moist mucus membranes Neck: supple Respiratory: lungs clear, normal breath sounds Cardiovascular: 2+ radial (R), regular rate, rhythm GI: normal inspection, normal bowel sounds, non tender, no mass, non-distended Musculoskeletal: back normal, gait/station normal, normal rom Neurologic: alert, oriented x3, 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 Psychiatric: depressed affect Skin: pallor Lewis Olmedo MD Jul 24, 2018 18:12
[2018-07-24] MEDS ORDERED: DiphenhydrAMINE 50mg/ml Inj IVP PRN (18:45)
[2018-07-24 20:00] VITALS: BP 143/74
[2018-07-24] MEDS: Dyna-Hex 2% Top Sol 2oz TOPIC SCH (20:48)
[2018-07-25 00:56] VITALS: BP 122/57
[2018-07-25 04:00] VITALS: BP 121/55
[2018-07-25] MEDS: oxyCONTIN 10mg tab ORAL SCH ×3 (05:49→22:44)
[2018-07-25 07:24] LABS: HEMATOCRIT 24.4 % (42.0-52.0); HEMOGLOBIN 7.9 G/DL (14.2-18.0); MEAN CORPUSCULAR VOLUME 92 FL (80-99); PLATELET COUNT 356 K/UL (150-450); RED BLOOD COUNT 2.65 M/UL (4.70-6.10); RED CELL DISTRIBUTION WIDTH 17.1 % (11.6-14.8); WHITE BLOOD COUNT 10.9 K/UL (4.8-10.8)
[2018-07-25 07:25] LABS: ANION GAP 7 mmol/L (5-15); BLOOD UREA NITROGEN 7 mg/dL (7-18); CALCIUM 8.5 MG/DL (8.5-10.1); CARBON DIOXIDE 30 MMOL/L (21-32); CHLORIDE 105 MMOL/L (98-107); CREATININE 0.5 MG/DL (0.55-1.30); POTASSIUM 3.7 MMOL/L (3.5-5.1); SODIUM 141 MMOL/L (136-145)
[2018-07-25 08:00] VITALS: BP 135/88
[2018-07-25 09:00] LABS: HEMATOCRIT 26.5 % (42.0-52.0); HEMOGLOBIN 8.7 G/DL (14.2-18.0); MEAN CORPUSCULAR VOLUME 91 FL (80-99); PLATELET COUNT 364 K/UL (150-450); RED CELL DISTRIBUTION WIDTH 16.8 % (11.6-14.8); WHITE BLOOD COUNT 14.4 K/UL (4.8-10.8)
--- NOTE | 2018-07-25 09:06 | General Progress Note ---
Assessment/Plan Assessment/Plan (1) Sickle cell disease (2) Sickle cell crisis (3) Intractable pain Pt will be continued on Dilaudid and Oxycontin. D/w Dr. Tucker and he concurred. Subjective Date patient seen: Jul 25, 2018 Time patient seen: 08:15 - am Allergies: Coded Allergies: CEFTRIAXONE (Verified Allergy, Unknown, 04/20/16) Uncoded Allergies: CONTRAST (Adverse Reaction, Severe, Rash, 06/23/16) RADIOCONTRAST - RASH, ITCHING Subjective Constitutional: Reports: chills, weakness HEENT: Reports: no symptoms Cardiovascular: Reports: no symptoms Respiratory: Reports: no symptoms Gastrointestinal/Abdominal: Reports: no symptoms Genitourinary: Reports: no symptoms Neurologic/Psychiatric: Reports: tingling, weakness Endocrine: Reports: no symptoms Hematologic/Lymphatic: Reports: no symptoms Subjective Patient reports that he was having severe pain and was increased on the dilaudid to 2mg IV. He now states that the pain has been better tolerated with the increase of dilaudid and continued oxycontin. Objective Last 24 Hour Vital Signs Date Time Temp Pulse Resp B/P (MAP) Pulse Ox O2 Delivery O2 Flow Rate FiO2 07/25/18 08:00 97.8 62 20 135/88 (104) 100 07/25/18 04:00 98.2 63 18 121/55 (77) 96 07/25/18 00:56 98.5 58 19 122/57 (78) 97 07/24/18 21:00 Room Air 07/24/18 20:00 98.7 20 143/74 (97) 97 07/24/18 16:00 99.8 75 20 139/57 (84) 96 07/24/18 12:00 99.1 62 19 113/57 (75) 99 Intake and Output 07/24/18 07/25/18 19:00 07:00 Intake Total 1435 ml 1905 ml Balance 1435 ml 1905 ml Intake Oral 1435 ml 780 ml IV Total 1125 ml # Voids 4 3 Laboratory Tests 07/24/18 11:10: White Blood Count 9.0, Red Blood Count 2.74L, Hemoglobin 8.0L, Hematocrit 25.3L , Mean Corpuscular Volume 92, Mean Corpuscular Hemoglobin 29.2, Mean Corpuscular Hemoglobin Concent 31.7L, Red Cell Distribution Width 17.2H, Platelet Count 361, Mean Platelet Volume 7.4, Neutrophils (%) (Auto) , Lymphocytes (%) (Auto) , Monocytes (%) (Auto) , Eosinophils (%) (Auto) , Basophils (%) (Auto) , Differential Total Cells Counted 100, Neutrophils % ( Manual) 40L, Lymphocytes % (Manual) 45, Monocytes % (Manual) 10, Eosinophils % ( Manual) 4H, Basophils % (Manual) 0, Band Neutrophils 1, Nucleated Red Blood Cells 60, Platelet Estimate Adequate, Platelet Morphology Normal, Basophilic Stippling 1+, Anisocytosis 2+, Macrocytosis 1+, Target Cells 2+, Erythrocyte Sedimentation Rate 36H 07/25/18 05:30: White Blood Count 10.9H, Red Blood Count 2.65L, Hemoglobin 7.9L, Hematocrit 24.4L, Mean Corpuscular Volume 92, Mean Corpuscular Hemoglobin 30.0, Mean Corpuscular Hemoglobin Concent 32.6, Red Cell Distribution Width 17.1H, Platelet Count 356, Mean Platelet Volume 7.4, Neutrophils (%) (Auto) , Lymphocytes (%) (Auto) , Monocytes (%) (Auto) , Eosinophils (%) (Auto) , Basophils (%) (Auto) , Neutrophils % (Manual) [Pending], Lymphocytes % (Manual) [Pending], Platelet Estimate [Pending], Platelet Morphology [Pending], Sodium Level 141, Potassium Level 3.7, Chloride Level 105, Carbon Dioxide Level 30, Anion Gap 7, Blood Urea Nitrogen 7, Creatinine 0.5L, Estimat Glomerular Filtration Rate > 60, Glucose Level 92, Calcium Level 8.5 07/25/18 08:30: White Blood Count 14.4H, Red Blood Count 2.90L, Hemoglobin 8.7L, Hematocrit 26.5L, Mean Corpuscular Volume 91, Mean Corpuscular Hemoglobin 30.0, Mean Corpuscular Hemoglobin Concent 32.9, Red Cell Distribution Width 16.8H, Platelet Count 364, Mean Platelet Volume 7.7, Neutrophils (%) (Auto) , Lymphocytes (%) (Auto) , Monocytes (%) (Auto) , Eosinophils (%) (Auto) , Basophils (%) (Auto) , Neutrophils % (Manual) [Pending], Lymphocytes % (Manual) [Pending], Platelet Estimate [Pending], Platelet Morphology [Pending], Reticulocyte Count [Pending], Lactate Dehydrogenase 218 Height (Feet): 5 Height (Inches): 6.00 Weight (Pounds): 252 Objective General Appearance: no apparent distress, alert EENT: PERRL/EOMI, normal ENT inspection Neck: non-tender, normal alignment Cardiovascular: normal rate, regular rhythm Respiratory/Chest: decreased breath sounds Abdomen: non tender, soft Extremities: non-tender Edema: no edema noted Arm (L), no edema noted Arm (R), no edema noted Leg (L), no edema noted Leg (R), no edema noted Pedal (L), no edema noted Pedal (R), no edema noted Generalized Neurologic: alert, oriented x 3 Skin: warm/dry Orlando Oglesby Jul 25, 2018 09:06
[2018-07-25] MEDS: Hydroxyurea 500mg cap ORAL SCH (09:41)
[2018-07-25] MEDS: Heparin 5000 units/ml inj SUBQ SCH ×2 (09:48→20:28)
[2018-07-25 12:00] VITALS: BP 136/59
--- NOTE | 2018-07-25 12:55 | Infectious Diseases Prog Note ---
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 Will continue to follow along with you. Subjective Allergies: Coded Allergies: CEFTRIAXONE (Verified Allergy, Unknown, 04/20/16) Uncoded Allergies: CONTRAST (Adverse Reaction, Severe, Rash, 06/23/16) RADIOCONTRAST - RASH, ITCHING Subjective Tm 100.2 wbc recurrent at 14 s/p transfusion last night Objective Vital Signs Last 24 Hour Vital Signs Date Time Temp Pulse Resp B/P (MAP) Pulse Ox O2 Delivery O2 Flow Rate FiO2 07/25/18 12:00 100.2 86 20 136/59 (84) 96 07/25/18 10:10 97.8 07/25/18 09:00 Room Air 07/25/18 08:00 97.8 62 20 135/88 (104) 100 07/25/18 04:00 98.2 63 18 121/55 (77) 96 07/25/18 00:56 98.5 58 19 122/57 (78) 97 07/24/18 21:00 Room Air 07/24/18 20:00 98.7 20 143/74 (97) 97 07/24/18 16:00 99.8 75 20 139/57 (84) 96 Height (Feet): 5 Height (Inches): 6.00 Weight (Pounds): 252 Objective General Appearance: well appearing, no apparent distress HEENT: normocephalic, atraumatic bilateral eye PERRL, bilateral eye EOMI, normal pharynx Neck: full range of motion, supple, no meningismus, no bony tend Respiratory: lungs clear, normal breath sounds, no rhonchi, no respiratory distress, no retraction, no accessory muscle use Cardiovascular: normal peripheral pulses, regular rate, rhythm, no edema, no gallop, no JVD, no murmur Gastrointestinal: normal bowel sounds, non tender, soft, no mass, no organomegaly, non-distended, no guarding, no hernia, no pulsatile mass, no rebound Genitourinary: no CVA tenderness Musculoskeletal: normal inspection 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, responsive, 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 nml as tested, motor strength/ tone normal, sensory intact Skin: normal color, no rash, warm/dry, palpation normal Lymphatic: normal inspection, no adenopathy Laboratory Tests Test 07/25/18 05:30 07/25/18 08:30 White Blood Count 10.9 K/UL (4.8-10.8) H 14.4 K/UL (4.8-10.8) H Red Blood Count 2.65 M/UL (4.70-6.10) L 2.90 M/UL (4.70-6.10) L Hemoglobin 7.9 G/DL (14.2-18.0) L 8.7 G/DL (14.2-18.0) L Hematocrit 24.4 % (42.0-52.0) L 26.5 % (42.0-52.0) L Mean Corpuscular Volume 92 FL (80-99) 91 FL (80-99) Mean Corpuscular Hemoglobin 30.0 PG (27.0-31.0) 30.0 PG (27.0-31.0) Mean Corpuscular Hemoglobin Concent 32.6 G/DL (32.0-36.0) 32.9 G/DL (32.0-36.0) Red Cell Distribution Width 17.1 % (11.6-14.8) H 16.8 % (11.6-14.8) H Platelet Count 356 K/UL (150-450) 364 K/UL (150-450) Mean Platelet Volume 7.4 FL (6.5-10.1) 7.7 FL (6.5-10.1) Neutrophils (%) (Auto) % (45.0-75.0) % (45.0-75.0) Lymphocytes (%) (Auto) % (20.0-45.0) % (20.0-45.0) Monocytes (%) (Auto) % (1.0-10.0) % (1.0-10.0) Eosinophils (%) (Auto) % (0.0-3.0) % (0.0-3.0) Basophils (%) (Auto) % (0.0-2.0) % (0.0-2.0) Differential Total Cells Counted 100 100 Neutrophils % (Manual) 38 % (45-75) L 51 % (45-75) Lymphocytes % (Manual) 55 % (20-45) H 46 % (20-45) H Monocytes % (Manual) 5 % (1-10) 1 % (1-10) Eosinophils % (Manual) 2 % (0-3) 2 % (0-3) Basophils % (Manual) 0 % (0-2) 0 % (0-2) Band Neutrophils 0 % (0-8) 0 % (0-8) Nucleated Red Blood Cells 74 /100 WBC 89 /100 WBC Platelet Estimate Adequate Adequate Platelet Morphology Normal Normal Polychromasia 1+ 1+ Hypochromasia 3+ 2+ Anisocytosis 1+ 1+ Spherocytes 1+ Sodium Level 141 MMOL/L (136-145) Potassium Level 3.7 MMOL/L (3.5-5.1) Chloride Level 105 MMOL/L (98-107) Carbon Dioxide Level 30 MMOL/L (21-32) Anion Gap 7 mmol/L (5-15) Blood Urea Nitrogen 7 mg/dL (7-18) Creatinine 0.5 MG/DL (0.55-1.30) L Estimat Glomerular Filtration Rate > 60 mL/min (>60) Glucose Level 92 MG/DL (74-106) Calcium Level 8.5 MG/DL (8.5-10.1) Poikilocytosis 1+ Reticulocyte Count 4.9 % (0.0-2.0) H Lactate Dehydrogenase 218 U/L (81-234) Current Medications Medications (Trade) Dose Ordered Sig/Arianne Route PRN Reason Start Time Stop Time Status Last Admin Dose Admin Acetaminophen (Tylenol) 325 mg ONCE PRN ORAL 30 min prior to transfusion 07/24/18 18:45 07/25/18 18:44 07/24/18 20:49 Acetaminophen (Tylenol) 650 mg Q4H PRN ORAL fever (Temp>100.5F) 07/20/18 20:45 08/19/18 20:44 Al Hydroxide/Mg Hydroxide (Mylanta II) 30 ml Q6H PRN ORAL dyspepsia 07/20/18 20:40 08/18/18 20:39 07/22/18 22:29 Chlorhexidine Gluconate (Jihan-Hex 2%) 1 applic DAILY@2000 TOPIC 07/24/18 20:00 08/23/18 19:59 07/24/18 20:48 Dextrose (Dextrose 50%) 50 ml Q30M PRN IV Hypoglycemia 07/20/18 20:30 08/18/18 15:59 Dextrose (Dextrose 50%) 50 ml Q30M PRN IV Hypoglycemia 07/20/18 20:45 08/18/18 16:14 Diphenhydramine HCl (Benadryl) 25 mg ONCE PRN IVP 30 min prior to transfusion 07/24/18 18:45 07/25/18 18:44 07/24/18 20:49 Heparin Sodium (Porcine) (Heparin 5000 units/ml) 5,000 units EVERY 12 HOURS SUBQ 07/20/18 21:00 08/18/18 20:59 07/25/18 09:48 Heparin Sodium/ Sodium Chloride (Heparin 2000 units/Ns 1000ml premix) 2,000 unit ONCE PRN INJ picc line placement 07/24/18 09:00 07/26/18 08:59 Hydromorphone HCl (Dilaudid) 2 mg Q3H PRN IVP For Pain 07/21/18 14:40 07/27/18 20:39 07/25/18 09:40 Hydroxyurea (Hydrea) 3,000 mg DAILY ORAL 07/21/18 09:15 07/26/18 09:14 07/25/18 09:41 Lidocaine HCl (Xylocaine 1% 30ml) 30 ml ONCE PRN INJ picc line placement 07/24/18 09:00 07/26/18 08:59 Lorazepam (Ativan 2mg/ml 1ml) 0.5 mg Q4H PRN IV For Anxiety 07/20/18 20:40 07/27/18 20:39 Ondansetron HCl (Zofran) 4 mg Q4H PRN IVP Nausea & Vomiting 07/21/18 14:45 08/20/18 14:44 07/23/18 23:02 Oxycodone HCl (OxyCONTIN) 30 mg Q8HR ORAL 07/21/18 14:00 07/28/18 13:59 07/25/18 05:49 Polyethylene Glycol (Miralax) 17 gm HSPRN PRN ORAL Constipation 07/20/18 20:40 08/19/18 20:39 Sodium Chloride 1,000 ml @ 125 mls/hr Q8H IV 07/22/18 16:15 08/21/18 16:14 07/25/18 05:49 Zolpidem Tartrate (Ambien) 5 mg HSPRN PRN ORAL Insomnia 07/20/18 20:40 07/27/18 20:39 07/20/18 23:48 Anjana Bang M.D. Jul 25, 2018 12:55
--- NOTE | 2018-07-25 13:48 | General Progress Note ---
Assessment/Plan Status: stable Assessment/Plan 1. 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 --> Presented in sickle crisis. on hydrea, opioids --> retic daily which has been ordered --> cbc has been reviewed --> continue hydrea 3500mg po daily --> continue indiral powder adjunct medication --> appreciate pain management recs --> on ns as per pcp and better 2. Anemia, secondary to sickle cell disease/B thalassemia --> hgb goal >7, transfuse prn. --> Blood tx: 07/24 3. Leukocytosis, secondary to reactive process, potentially sepsis as well as on antibiotics. --> Monitor and trend wbc for improvement --> given uptrending, concerning for infection, --> cultures have been ordered --> ON ABX as per ID, appreciate recs 4. Thrombocytosis, potentially secondary to reactive process. --> Improved/Resolved 5. Acute chest does have evidence of pna --> s/p antibiotics 6. Hyperbilirubinemia, potentially secondary to minor hemolysis. 7. Reticulocytosis consisting with sickle cell crisis. 8. Left shoulder pain. Appreciate consultation. Subjective Date patient seen: Jul 25, 2018 Hematologic/Lymphatic: Reports: anemia Allergies: Coded Allergies: CEFTRIAXONE (Verified Allergy, Unknown, 04/20/16) Uncoded Allergies: CONTRAST (Adverse Reaction, Severe, Rash, 06/23/16) RADIOCONTRAST - RASH, ITCHING All Systems: reviewed and negative except above Subjective Pt awake and alert. S/P blood tx, hgb improved to 8.7. Urine and blood cx ordered. Objective Last 24 Hour Vital Signs Date Time Temp Pulse Resp B/P (MAP) Pulse Ox O2 Delivery O2 Flow Rate FiO2 07/25/18 12:00 100.2 86 20 136/59 (84) 96 07/25/18 10:10 97.8 07/25/18 09:00 Room Air 07/25/18 08:00 97.8 62 20 135/88 (104) 100 07/25/18 04:00 98.2 63 18 121/55 (77) 96 07/25/18 00:56 98.5 58 19 122/57 (78) 97 07/24/18 21:00 Room Air 07/24/18 20:00 98.7 20 143/74 (97) 97 07/24/18 16:00 99.8 75 20 139/57 (84) 96 Intake and Output 07/24/18 07/25/18 19:00 07:00 Intake Total 1435 ml 1905 ml Balance 1435 ml 1905 ml Intake Oral 1435 ml 780 ml IV Total 1125 ml # Voids 4 3 Laboratory Tests 07/25/18 05:30: White Blood Count 10.9H, Red Blood Count 2.65L, Hemoglobin 7.9L, Hematocrit 24.4L, Mean Corpuscular Volume 92, Mean Corpuscular Hemoglobin 30.0, Mean Corpuscular Hemoglobin Concent 32.6, Red Cell Distribution Width 17.1H, Platelet Count 356, Mean Platelet Volume 7.4, Neutrophils (%) (Auto) , Lymphocytes (%) (Auto) , Monocytes (%) (Auto) , Eosinophils (%) (Auto) , Basophils (%) (Auto) , Differential Total Cells Counted 100, Neutrophils % ( Manual) 38L, Lymphocytes % (Manual) 55H, Monocytes % (Manual) 5, Eosinophils % ( Manual) 2, Basophils % (Manual) 0, Band Neutrophils 0, Nucleated Red Blood Cells 74, Platelet Estimate Adequate, Platelet Morphology Normal, Polychromasia 1+, Hypochromasia 3+, Anisocytosis 1+, Spherocytes 1+, Sodium Level 141, Potassium Level 3.7, Chloride Level 105, Carbon Dioxide Level 30, Anion Gap 7, Blood Urea Nitrogen 7, Creatinine 0.5L, Estimat Glomerular Filtration Rate > 60 , Glucose Level 92, Calcium Level 8.5 07/25/18 08:30: White Blood Count 14.4H, Red Blood Count 2.90L, Hemoglobin 8.7L, Hematocrit 26.5L, Mean Corpuscular Volume 91, Mean Corpuscular Hemoglobin 30.0, Mean Corpuscular Hemoglobin Concent 32.9, Red Cell Distribution Width 16.8H, Platelet Count 364, Mean Platelet Volume 7.7, Neutrophils (%) (Auto) , Lymphocytes (%) (Auto) , Monocytes (%) (Auto) , Eosinophils (%) (Auto) , Basophils (%) (Auto) , Differential Total Cells Counted 100, Neutrophils % ( Manual) 51, Lymphocytes % (Manual) 46H, Monocytes % (Manual) 1, Eosinophils % ( Manual) 2, Basophils % (Manual) 0, Band Neutrophils 0, Nucleated Red Blood Cells 89, Platelet Estimate Adequate, Platelet Morphology Normal, Polychromasia 1+, Hypochromasia 2+, Anisocytosis 1+, Poikilocytosis 1+, Reticulocyte Count 4.9H, Lactate Dehydrogenase 218 Height (Feet): 5 Height (Inches): 6.00 Weight (Pounds): 252 Objective PE: Vital Signs: reviewed Head: normocephalic Eyes: bilateral eye PERRL, bilateral eye conjunctivae pale ENT: moist mucus membranes Neck: supple Respiratory: lungs clear, normal breath sounds Cardiovascular: 2+ radial (R), regular rate, rhythm GI: normal inspection, normal bowel sounds, non tender, no mass, non-distended Musculoskeletal: back normal, gait/station normal, normal rom Neurologic: alert, oriented x3, 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 Psychiatric: depressed affect Skin: pallor Lewis Olmedo MD Jul 25, 2018 13:48
--- NOTE | 2018-07-25 13:55 | General Progress Note ---
Assessment/Plan Problem List: (1) Asthma ICD Codes: J45.909 - Unspecified asthma, uncomplicated SNOMED: 815202352 (2) Sickle cell disease ICD Codes: D57.1 - Sickle-cell disease without crisis SNOMED: 809336214 (3) Knee pain, bilateral ICD Codes: M25.561 - Pain in right knee; M25.562 - Pain in left knee SNOMED: 83476952 (4) Sickle cell crisis ICD Codes: D57.00 - Hb-SS disease with crisis, unspecified SNOMED: 847681968 (5) Anemia ICD Codes: D64.9 - Anemia, unspecified SNOMED: 006326892 Status: unchanged Assessment/Plan o2nc picc line id eval pain control ivf heme f/u transfuse prn cbc bmp am Subjective Constitutional: Reports: weakness Allergies: Coded Allergies: CEFTRIAXONE (Verified Allergy, Unknown, 04/20/16) Uncoded Allergies: CONTRAST (Adverse Reaction, Severe, Rash, 06/23/16) RADIOCONTRAST - RASH, ITCHING All Systems: reviewed and negative except above Subjective o2nc leg pain 02/14 Objective Last 24 Hour Vital Signs Date Time Temp Pulse Resp B/P (MAP) Pulse Ox O2 Delivery O2 Flow Rate FiO2 07/25/18 12:00 100.2 86 20 136/59 (84) 96 07/25/18 10:10 97.8 07/25/18 09:00 Room Air 07/25/18 08:00 97.8 62 20 135/88 (104) 100 07/25/18 04:00 98.2 63 18 121/55 (77) 96 07/25/18 00:56 98.5 58 19 122/57 (78) 97 07/24/18 21:00 Room Air 07/24/18 20:00 98.7 20 143/74 (97) 97 07/24/18 16:00 99.8 75 20 139/57 (84) 96 Intake and Output 07/24/18 07/25/18 19:00 07:00 Intake Total 1435 ml 1905 ml Balance 1435 ml 1905 ml Intake Oral 1435 ml 780 ml IV Total 1125 ml # Voids 4 3 Laboratory Tests 07/25/18 05:30: White Blood Count 10.9H, Red Blood Count 2.65L, Hemoglobin 7.9L, Hematocrit 24.4L, Mean Corpuscular Volume 92, Mean Corpuscular Hemoglobin 30.0, Mean Corpuscular Hemoglobin Concent 32.6, Red Cell Distribution Width 17.1H, Platelet Count 356, Mean Platelet Volume 7.4, Neutrophils (%) (Auto) , Lymphocytes (%) (Auto) , Monocytes (%) (Auto) , Eosinophils (%) (Auto) , Basophils (%) (Auto) , Differential Total Cells Counted 100, Neutrophils % ( Manual) 38L, Lymphocytes % (Manual) 55H, Monocytes % (Manual) 5, Eosinophils % ( Manual) 2, Basophils % (Manual) 0, Band Neutrophils 0, Nucleated Red Blood Cells 74, Platelet Estimate Adequate, Platelet Morphology Normal, Polychromasia 1+, Hypochromasia 3+, Anisocytosis 1+, Spherocytes 1+, Sodium Level 141, Potassium Level 3.7, Chloride Level 105, Carbon Dioxide Level 30, Anion Gap 7, Blood Urea Nitrogen 7, Creatinine 0.5L, Estimat Glomerular Filtration Rate > 60 , Glucose Level 92, Calcium Level 8.5 07/25/18 08:30: White Blood Count 14.4H, Red Blood Count 2.90L, Hemoglobin 8.7L, Hematocrit 26.5L, Mean Corpuscular Volume 91, Mean Corpuscular Hemoglobin 30.0, Mean Corpuscular Hemoglobin Concent 32.9, Red Cell Distribution Width 16.8H, Platelet Count 364, Mean Platelet Volume 7.7, Neutrophils (%) (Auto) , Lymphocytes (%) (Auto) , Monocytes (%) (Auto) , Eosinophils (%) (Auto) , Basophils (%) (Auto) , Differential Total Cells Counted 100, Neutrophils % ( Manual) 51, Lymphocytes % (Manual) 46H, Monocytes % (Manual) 1, Eosinophils % ( Manual) 2, Basophils % (Manual) 0, Band Neutrophils 0, Nucleated Red Blood Cells 89, Platelet Estimate Adequate, Platelet Morphology Normal, Polychromasia 1+, Hypochromasia 2+, Anisocytosis 1+, Poikilocytosis 1+, Reticulocyte Count 4.9H, Lactate Dehydrogenase 218 Height (Feet): 5 Height (Inches): 6.00 Weight (Pounds): 252 General Appearance: alert EENT: normal ENT inspection Neck: normal alignment Cardiovascular: normal peripheral pulses, normal rate, regular rhythm Respiratory/Chest: chest wall non-tender, lungs clear, normal breath sounds Abdomen: normal bowel sounds, non tender, soft Extremities: normal inspection Edema: no edema noted Arm (L), no edema noted Arm (R), no edema noted Leg (L), no edema noted Leg (R), no edema noted Pedal (L), no edema noted Pedal (R), no edema noted Generalized Neurologic: responsive, motor weakness Skin: normal pigmentation, warm/dry Bubba Wesley DO Jul 25, 2018 13:54
--- NOTE | 2018-07-25 15:00 | Cardiology Report ---
APPROVED REPORT EKG Measurement Heart [id number] Sinus bradycardia with sinus arrhythmia Otherwise normal ECG
--- NOTE | 2018-07-25 15:15 | Diagnostic Imaging Report ---
Indication: Cough Technique: One view of the chest Comparison: 07/19/2018 Findings: Suboptimal inspiration as previously. Left arm PICC is again demonstrated. There is some perihilar congestion again demonstrated. Except for the PICC, findings are unchanged Impression: Bilateral perihilar congestion 4 infiltrates, unchanged from 07/19/2018 PICC
[2018-07-25] MEDS ORDERED: DiphenhydrAMINE 50mg/ml Inj IVP PRN (15:30)
[2018-07-25 15:45] VITALS: BP 118/63
[2018-07-25 20:04] VITALS: BP 128/53
[2018-07-25] MEDS: Dyna-Hex 2% Top Sol 2oz TOPIC SCH (20:28)
[2018-07-26 00:07] VITALS: BP 143/72
[2018-07-26 03:56] VITALS: BP 150/86
[2018-07-26] MEDS: oxyCONTIN 10mg tab ORAL SCH ×3 (05:48→22:10)
[2018-07-26 08:00] VITALS: BP 123/67
[2018-07-26 09:12] LABS: BASOPHILS % (AUTO) 0.9 % (0.0-2.0); EOSINOPHILS % (AUTO) 2.9 % (0.0-3.0); HEMATOCRIT 30.2 % (42.0-52.0); HEMOGLOBIN 8.4 G/DL (14.2-18.0); LYMPHOCYTES % (AUTO) 42.9 % (20.0-45.0); MEAN CORPUSCULAR VOLUME 94 FL (80-99); MONOCYTES % (AUTO) 3.3 % (1.0-10.0); NEUTROPHILS % (AUTO) 50.1 % (45.0-75.0); PLATELET COUNT 347 K/UL (150-450); RED BLOOD COUNT 3.22 M/UL (4.70-6.10); RED CELL DISTRIBUTION WIDTH 16.7 % (11.6-14.8); WHITE BLOOD COUNT 8.6 K/UL (4.8-10.8)
[2018-07-26] MEDS: Heparin 5000 units/ml inj SUBQ SCH ×2 (09:36→20:58)
[2018-07-26] MEDS: Hydroxyurea 500mg cap ORAL SCH (09:36)
[2018-07-26 10:01] LABS: ALANINE AMINOTRANSFERASE 140 U/L (12-78); ALBUMIN 3.4 G/DL (3.4-5.0); ALBUMIN/GLOBULIN RATIO 0.7 (1.0-2.7); ALKALINE PHOSPHATASE 98 U/L (46-116); ANION GAP 7 mmol/L (5-15); ASPARTATE AMINO TRANSFERASE 66 U/L (15-37); BILIRUBIN,TOTAL 0.8 MG/DL (0.2-1.0); BLOOD UREA NITROGEN 3 mg/dL (7-18); CALCIUM 9.1 MG/DL (8.5-10.1); CARBON DIOXIDE 27 MMOL/L (21-32); CHLORIDE 103 MMOL/L (98-107); CREATININE 0.5 MG/DL (0.55-1.30); POTASSIUM 3.7 MMOL/L (3.5-5.1); SODIUM 137 MMOL/L (136-145)
[2018-07-26 11:56] VITALS: BP 114/74
--- NOTE | 2018-07-26 13:26 | Infectious Diseases Prog Note ---
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 Will continue to follow along with you. Subjective Allergies: Coded Allergies: CEFTRIAXONE (Verified Allergy, Unknown, 04/20/16) Uncoded Allergies: CONTRAST (Adverse Reaction, Severe, Rash, 06/23/16) RADIOCONTRAST - RASH, ITCHING Subjective Tm 100.2 afebrile >12hrs leukocytosis resolved Objective Vital Signs Last 24 Hour Vital Signs Date Time Temp Pulse Resp B/P (MAP) Pulse Ox O2 Delivery O2 Flow Rate FiO2 07/26/18 11:56 99.3 82 18 114/74 (87) 98 07/26/18 10:54 99.3 07/26/18 09:00 Room Air 07/26/18 08:00 99.3 68 18 123/67 (85) 98 07/26/18 03:56 98.3 61 19 150/86 (107) 98 07/26/18 00:07 98.7 67 19 143/72 (95) 97 07/25/18 21:00 Room Air 07/25/18 20:04 99.8 69 18 128/53 (78) 97 07/25/18 16:28 100.2 07/25/18 15:45 100.2 85 20 118/63 (81) 98 Height (Feet): 5 Height (Inches): 6.00 Weight (Pounds): 252 Objective General Appearance: well appearing, no apparent distress HEENT: normocephalic, atraumatic bilateral eye PERRL, bilateral eye EOMI, normal pharynx Neck: full range of motion, supple, no meningismus, no bony tend Respiratory: lungs clear, normal breath sounds, no rhonchi, no respiratory distress, no retraction, no accessory muscle use Cardiovascular: normal peripheral pulses, regular rate, rhythm, no edema, no gallop, no JVD, no murmur Gastrointestinal: normal bowel sounds, non tender, soft, no mass, no organomegaly, non-distended, no guarding, no hernia, no pulsatile mass, no rebound Genitourinary: no CVA tenderness Musculoskeletal: normal inspection 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, responsive, 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, motor strength/ tone normal, sensory intact Skin: normal color, no rash, warm/dry, palpation normal Lymphatic: normal inspection, no adenopathy Laboratory Tests Test 07/26/18 08:05 White Blood Count 8.6 K/UL (4.8-10.8) Red Blood Count 3.22 M/UL (4.70-6.10) L Hemoglobin 8.4 G/DL (14.2-18.0) L Hematocrit 30.2 % (42.0-52.0) L Mean Corpuscular Volume 94 FL (80-99) Mean Corpuscular Hemoglobin 26.2 PG (27.0-31.0) L Mean Corpuscular Hemoglobin Concent 28.0 G/DL (32.0-36.0) L Red Cell Distribution Width 16.7 % (11.6-14.8) H Platelet Count 347 K/UL (150-450) Mean Platelet Volume 6.5 FL (6.5-10.1) Neutrophils (%) (Auto) 50.1 % (45.0-75.0) Lymphocytes (%) (Auto) 42.9 % (20.0-45.0) Monocytes (%) (Auto) 3.3 % (1.0-10.0) Eosinophils (%) (Auto) 2.9 % (0.0-3.0) Basophils (%) (Auto) 0.9 % (0.0-2.0) Sodium Level 137 MMOL/L (136-145) Potassium Level 3.7 MMOL/L (3.5-5.1) Chloride Level 103 MMOL/L (98-107) Carbon Dioxide Level 27 MMOL/L (21-32) Anion Gap 7 mmol/L (5-15) Blood Urea Nitrogen 3 mg/dL (7-18) L Creatinine 0.5 MG/DL (0.55-1.30) L Estimat Glomerular Filtration Rate > 60 mL/min (>60) Glucose Level 149 MG/DL (74-106) H Calcium Level 9.1 MG/DL (8.5-10.1) Total Bilirubin 0.8 MG/DL (0.2-1.0) Aspartate Amino Transf (AST/SGOT) 66 U/L (15-37) H Alanine Aminotransferase (ALT/SGPT) 140 U/L (12-78) H Alkaline Phosphatase 98 U/L (46-116) Total Protein 8.1 G/DL (6.4-8.2) Albumin 3.4 G/DL (3.4-5.0) Globulin 4.7 g/dL Albumin/Globulin Ratio 0.7 (1.0-2.7) L Current Medications Medications (Trade) Dose Ordered Sig/Arianne Route PRN Reason Start Time Stop Time Status Last Admin Dose Admin Acetaminophen (Tylenol) 650 mg Q4H PRN ORAL fever (Temp>100.5F) 07/20/18 20:45 08/19/18 20:44 Al Hydroxide/Mg Hydroxide (Mylanta II) 30 ml Q6H PRN ORAL dyspepsia 07/20/18 20:40 08/18/18 20:39 07/22/18 22:29 Chlorhexidine Gluconate (Jihan-Hex 2%) 1 applic DAILY@1999 TOPIC 07/24/18 20:00 08/23/18 19:59 07/25/18 20:28 Dextrose (Dextrose 50%) 50 ml Q30M PRN IV Hypoglycemia 07/20/18 20:30 08/18/18 15:59 Dextrose (Dextrose 50%) 50 ml Q30M PRN IV Hypoglycemia 07/20/18 20:45 08/18/18 16:14 Heparin Sodium (Porcine) (Heparin 5000 units/ml) 5,000 units EVERY 12 HOURS SUBQ 07/20/18 21:00 08/18/18 20:59 07/26/18 09:36 Hydromorphone HCl (Dilaudid) 2 mg Q3H PRN IVP For Pain 07/21/18 14:40 07/27/18 20:39 07/26/18 10:24 Lorazepam (Ativan 2mg/ml 1ml) 0.5 mg Q4H PRN IV For Anxiety 07/20/18 20:40 07/27/18 20:39 Ondansetron HCl (Zofran) 4 mg Q4H PRN IVP Nausea & Vomiting 07/21/18 14:45 08/20/18 14:44 07/26/18 07:08 Oxycodone HCl (OxyCONTIN) 30 mg Q8HR ORAL 07/21/18 14:00 07/28/18 13:59 07/26/18 13:16 Polyethylene Glycol (Miralax) 17 gm HSPRN PRN ORAL Constipation 07/20/18 20:40 08/19/18 20:39 Sodium Chloride 1,000 ml @ 125 mls/hr Q8H IV 07/22/18 16:15 08/21/18 16:14 07/26/18 07:08 Zolpidem Tartrate (Ambien) 5 mg HSPRN PRN ORAL Insomnia 07/20/18 20:40 07/27/18 20:39 07/20/18 23:48 Anjana Bang M.D. Jul 26, 2018 13:26
--- NOTE | 2018-07-26 14:53 | General Progress Note ---
Assessment/Plan Problem List: (1) Asthma ICD Codes: J45.909 - Unspecified asthma, uncomplicated SNOMED: 222376464 (2) Sickle cell disease ICD Codes: D57.1 - Sickle-cell disease without crisis SNOMED: 043691137 (3) Knee pain, bilateral ICD Codes: M25.561 - Pain in right knee; M25.562 - Pain in left knee SNOMED: 71668942 (4) Sickle cell crisis ICD Codes: D57.00 - Hb-SS disease with crisis, unspecified SNOMED: 518249841 (5) Anemia ICD Codes: D64.9 - Anemia, unspecified SNOMED: 863719884 Status: unchanged Assessment/Plan o2nc picc line id eval pain control ivf heme f/u transfuse prn cbc bmp am Subjective Constitutional: Reports: weakness Respiratory: Reports: shortness of breath Allergies: Coded Allergies: CEFTRIAXONE (Verified Allergy, Unknown, 04/20/16) Uncoded Allergies: CONTRAST (Adverse Reaction, Severe, Rash, 06/23/16) RADIOCONTRAST - RASH, ITCHING All Systems: reviewed and negative except above Subjective o2nc leg pain 02/14 Objective Last 24 Hour Vital Signs Date Time Temp Pulse Resp B/P (MAP) Pulse Ox O2 Delivery O2 Flow Rate FiO2 07/26/18 13:46 99.3 07/26/18 11:56 99.3 82 18 114/74 (87) 98 07/26/18 10:54 99.3 07/26/18 09:00 Room Air 07/26/18 08:00 99.3 68 18 123/67 (85) 98 07/26/18 03:56 98.3 61 19 150/86 (107) 98 07/26/18 00:07 98.7 67 19 143/72 (95) 97 07/25/18 21:00 Room Air 07/25/18 20:04 99.8 69 18 128/53 (78) 97 07/25/18 16:28 100.2 07/25/18 15:45 100.2 85 20 118/63 (81) 98 Intake and Output 07/25/18 07/26/18 19:00 07:00 Intake Total 790 ml 2155 ml Output Total 700 ml Balance 90 ml 2155 ml Intake Oral 790 ml 780 ml IV Total 1375 ml Output Urine Total 700 ml # Voids 3 5 Laboratory Tests 07/26/18 08:05: White Blood Count 8.6, Red Blood Count 3.22L, Hemoglobin 8.4L, Hematocrit 30.2L , Mean Corpuscular Volume 94, Mean Corpuscular Hemoglobin 26.2L, Mean Corpuscular Hemoglobin Concent 28.0L, Red Cell Distribution Width 16.7H, Platelet Count 347, Mean Platelet Volume 6.5, Neutrophils (%) (Auto) 50.1, Lymphocytes (%) (Auto) 42.9, Monocytes (%) (Auto) 3.3, Eosinophils (%) (Auto) 2.9, Basophils (%) (Auto) 0.9, Sodium Level 137, Potassium Level 3.7, Chloride Level 103, Carbon Dioxide Level 27, Anion Gap 7, Blood Urea Nitrogen 3L, Creatinine 0.5L, Estimat Glomerular Filtration Rate > 60, Glucose Level 149H, Calcium Level 9.1, Total Bilirubin 0.8, Aspartate Amino Transf (AST/SGOT) 66H, Alanine Aminotransferase (ALT/SGPT) 140H, Alkaline Phosphatase 98, Total Protein 8.1, Albumin 3.4, Globulin 4.7, Albumin/Globulin Ratio 0.7L Height (Feet): 5 Height (Inches): 6.00 Weight (Pounds): 252 General Appearance: lethargic EENT: normal ENT inspection Neck: normal alignment Cardiovascular: normal peripheral pulses, normal rate, regular rhythm Respiratory/Chest: chest wall non-tender, decreased breath sounds Abdomen: normal bowel sounds, non tender, soft Extremities: normal inspection Edema: no edema noted Arm (L), no edema noted Arm (R), no edema noted Leg (L), no edema noted Leg (R), no edema noted Pedal (L), no edema noted Pedal (R), no edema noted Generalized Neurologic: responsive, motor weakness Skin: normal pigmentation, warm/dry Bubba Wesley DO Jul 26, 2018 14:53
[2018-07-26 16:00] VITALS: BP 117/65
[2018-07-26] MEDS ORDERED: Levofloxacin 500mg tab ORAL SCH (16:00)
[2018-07-26 19:51] VITALS: BP 132/67
[2018-07-26] MEDS: Dyna-Hex 2% Top Sol 2oz TOPIC SCH (20:56)
[2018-07-27 00:33] VITALS: BP 128/73
[2018-07-27 04:00] VITALS: BP 141/89
[2018-07-27] MEDS: oxyCONTIN 10mg tab ORAL SCH ×3 (06:11→22:04)
[2018-07-27 07:04] LABS: BASOPHILS % (AUTO) 1.3 % (0.0-2.0); HEMATOCRIT 28.2 % (42.0-52.0); HEMOGLOBIN 9.1 G/DL (14.2-18.0); LYMPHOCYTES % (AUTO) 50.1 % (20.0-45.0); MEAN CORPUSCULAR VOLUME 94 FL (80-99); MONOCYTES % (AUTO) 4.5 % (1.0-10.0); NEUTROPHILS % (AUTO) 40.1 % (45.0-75.0); PLATELET COUNT 390 K/UL (150-450); RED BLOOD COUNT 2.99 M/UL (4.70-6.10); RED CELL DISTRIBUTION WIDTH 17.2 % (11.6-14.8); WHITE BLOOD COUNT 9.1 K/UL (4.8-10.8)
[2018-07-27 08:00] VITALS: BP 137/77
[2018-07-27] MEDS: Levofloxacin 500mg tab ORAL SCH (08:15)
[2018-07-27 08:47] LABS: ANION GAP 4 mmol/L (5-15); BLOOD UREA NITROGEN 3 mg/dL (7-18); CALCIUM 7.9 MG/DL (8.5-10.1); CARBON DIOXIDE 28 MMOL/L (21-32); CHLORIDE 106 MMOL/L (98-107); CREATININE 0.5 MG/DL (0.55-1.30); POTASSIUM 3.6 MMOL/L (3.5-5.1); SODIUM 138 MMOL/L (136-145)
[2018-07-27] MEDS: Heparin 5000 units/ml inj SUBQ SCH ×2 (09:00→20:33)
[2018-07-27 12:00] VITALS: BP 140/82
--- NOTE | 2018-07-27 14:49 | General Progress Note ---
Assessment/Plan Problem List: (1) Asthma ICD Codes: J45.909 - Unspecified asthma, uncomplicated SNOMED: 576758535 (2) Sickle cell disease ICD Codes: D57.1 - Sickle-cell disease without crisis SNOMED: 432851615 (3) Knee pain, bilateral ICD Codes: M25.561 - Pain in right knee; M25.562 - Pain in left knee SNOMED: 16034817 (4) Sickle cell crisis ICD Codes: D57.00 - Hb-SS disease with crisis, unspecified SNOMED: 808643768 (5) Anemia ICD Codes: D64.9 - Anemia, unspecified SNOMED: 154632743 Status: stable, progressing Assessment/Plan o2nc picc line id eval pain control ivf heme f/u transfuse prn cbc bmp am home if clear Subjective Constitutional: Reports: weakness Allergies: Coded Allergies: CEFTRIAXONE (Verified Allergy, Unknown, 04/20/16) Uncoded Allergies: CONTRAST (Adverse Reaction, Severe, Rash, 06/23/16) RADIOCONTRAST - RASH, ITCHING All Systems: reviewed and negative except above Subjective o2nc leg pain 5/10 Objective Last 24 Hour Vital Signs Date Time Temp Pulse Resp B/P (MAP) Pulse Ox O2 Delivery O2 Flow Rate FiO2 07/27/18 14:19 98.3 07/27/18 12:12 98.3 07/27/18 12:00 99.0 65 20 140/82 (101) 95 07/27/18 09:00 Room Air 07/27/18 08:00 98.5 73 20 137/77 (97) 99 07/27/18 04:00 98.3 66 19 141/89 (106) 99 07/27/18 00:33 98.5 77 17 128/73 (91) 99 07/26/18 21:00 Room Air 07/26/18 19:51 98.2 74 16 132/67 (88) 99 07/26/18 16:00 98.9 90 18 117/65 (82) 96 Intake and Output 07/26/18 07/27/18 19:00 07:00 Intake Total 1135 ml 1500 ml Balance 1135 ml 1500 ml Intake Oral 1010 ml IV Total 125 ml 1500 ml # Voids 3 4 Laboratory Tests 07/27/18 06:15: White Blood Count 9.1, Red Blood Count 2.99L, Hemoglobin 9.1L, Hematocrit 28.2L , Mean Corpuscular Volume 94, Mean Corpuscular Hemoglobin 30.4, Mean Corpuscular Hemoglobin Concent 32.2, Red Cell Distribution Width 17.2H, Platelet Count 390, Mean Platelet Volume 6.9, Neutrophils (%) (Auto) 40.1L, Lymphocytes (%) (Auto) 50.1H, Monocytes (%) (Auto) 4.5, Eosinophils (%) (Auto) 4.0H, Basophils (%) (Auto) 1.3 07/27/18 08:24: Sodium Level 138, Potassium Level 3.6, Chloride Level 106, Carbon Dioxide Level 28, Anion Gap 4L, Blood Urea Nitrogen 3L, Creatinine 0.5L, Estimat Glomerular Filtration Rate > 60, Glucose Level 95, Calcium Level 7.9L Height (Feet): 5 Height (Inches): 6.00 Weight (Pounds): 252 General Appearance: lethargic EENT: normal ENT inspection Neck: normal alignment Cardiovascular: normal peripheral pulses, normal rate, regular rhythm Respiratory/Chest: chest wall non-tender, lungs clear, normal breath sounds Abdomen: normal bowel sounds, non tender, soft Extremities: normal inspection Edema: no edema noted Arm (L), no edema noted Arm (R), no edema noted Leg (L), no edema noted Leg (R), no edema noted Pedal (L), no edema noted Pedal (R), no edema noted Generalized Neurologic: responsive, motor weakness Skin: normal pigmentation, warm/dry Bubba Wesley DO Jul 27, 2018 14:49
--- NOTE | 2018-07-27 15:14 | Infectious Diseases Prog Note ---
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 Will continue to follow along with you. Subjective Allergies: Coded Allergies: CEFTRIAXONE (Verified Allergy, Unknown, 04/20/16) Uncoded Allergies: CONTRAST (Adverse Reaction, Severe, Rash, 06/23/16) RADIOCONTRAST - RASH, ITCHING Subjective afebrile >36hrs no leukocytosis resolved Objective Vital Signs Last 24 Hour Vital Signs Date Time Temp Pulse Resp B/P (MAP) Pulse Ox O2 Delivery O2 Flow Rate FiO2 07/27/18 14:19 98.3 07/27/18 12:12 98.3 07/27/18 12:00 99.0 65 20 140/82 (101) 95 07/27/18 09:00 Room Air 07/27/18 08:00 98.5 73 20 137/77 (97) 99 07/27/18 04:00 98.3 66 19 141/89 (106) 99 07/27/18 00:33 98.5 77 17 128/73 (91) 99 07/26/18 21:00 Room Air 07/26/18 19:51 98.2 74 16 132/67 (88) 99 07/26/18 16:00 98.9 90 18 117/65 (82) 96 Height (Feet): 5 Height (Inches): 6.00 Weight (Pounds): 252 Objective General Appearance: well appearing, no apparent distress HEENT: normocephalic, atraumatic bilateral eye PERRL, bilateral eye EOMI, normal pharynx Neck: full range of motion, supple, no meningismus, no bony tend Respiratory: lungs clear, normal breath sounds, no rhonchi, no respiratory distress, no retraction, no accessory muscle use Cardiovascular: normal peripheral pulses, regular rate, rhythm, no edema, no gallop, no JVD, no murmur Gastrointestinal: normal bowel sounds, non tender, soft, no mass, no organomegaly, non-distended, no guarding, no hernia, no pulsatile mass, no rebound Genitourinary: no CVA tenderness Musculoskeletal: normal inspection 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, responsive, 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, motor strength/ tone normal, sensory intact Skin: normal color, no rash, warm/dry, palpation normal Lymphatic: normal inspection, no adenopathy Microbiology Date/Time Source Procedure Growth Status 07/25/18 12:20 Blood Blood Culture - Preliminary NO GROWTH AFTER 24 HOURS Resulted 07/25/18 12:20 Blood Blood Culture - Preliminary NO GROWTH AFTER 24 HOURS Resulted 07/25/18 08:05 Blood Blood Culture - Preliminary NO GROWTH AFTER 24 HOURS Resulted 07/25/18 07:55 Blood Blood Culture - Preliminary NO GROWTH AFTER 24 HOURS Resulted Laboratory Tests Test 07/27/18 06:15 07/27/18 08:24 White Blood Count 9.1 K/UL (4.8-10.8) Red Blood Count 2.99 M/UL (4.70-6.10) L Hemoglobin 9.1 G/DL (14.2-18.0) L Hematocrit 28.2 % (42.0-52.0) L Mean Corpuscular Volume 94 FL (80-99) Mean Corpuscular Hemoglobin 30.4 PG (27.0-31.0) Mean Corpuscular Hemoglobin Concent 32.2 G/DL (32.0-36.0) Red Cell Distribution Width 17.2 % (11.6-14.8) H Platelet Count 390 K/UL (150-450) Mean Platelet Volume 6.9 FL (6.5-10.1) Neutrophils (%) (Auto) 40.1 % (45.0-75.0) L Lymphocytes (%) (Auto) 50.1 % (20.0-45.0) H Monocytes (%) (Auto) 4.5 % (1.0-10.0) Eosinophils (%) (Auto) 4.0 % (0.0-3.0) H Basophils (%) (Auto) 1.3 % (0.0-2.0) Sodium Level 138 MMOL/L (136-145) Potassium Level 3.6 MMOL/L (3.5-5.1) Chloride Level 106 MMOL/L (98-107) Carbon Dioxide Level 28 MMOL/L (21-32) Anion Gap 4 mmol/L (5-15) L Blood Urea Nitrogen 3 mg/dL (7-18) L Creatinine 0.5 MG/DL (0.55-1.30) L Estimat Glomerular Filtration Rate > 60 mL/min (>60) Glucose Level 95 MG/DL (74-106) Calcium Level 7.9 MG/DL (8.5-10.1) L Current Medications Medications (Trade) Dose Ordered Sig/Arianne Route PRN Reason Start Time Stop Time Status Last Admin Dose Admin Acetaminophen (Tylenol) 650 mg Q4H PRN ORAL fever (Temp>100.5F) 07/20/18 20:45 08/19/18 20:44 Al Hydroxide/Mg Hydroxide (Mylanta II) 30 ml Q6H PRN ORAL dyspepsia 07/20/18 20:40 08/18/18 20:39 07/22/18 22:29 Chlorhexidine Gluconate (Jihan-Hex 2%) 1 applic DAILY@1999 TOPIC 07/24/18 20:00 08/23/18 19:59 07/26/18 20:56 Dextrose (Dextrose 50%) 50 ml Q30M PRN IV Hypoglycemia 07/20/18 20:30 08/18/18 15:59 Dextrose (Dextrose 50%) 50 ml Q30M PRN IV Hypoglycemia 07/20/18 20:45 08/18/18 16:14 Heparin Sodium (Porcine) (Heparin 5000 units/ml) 5,000 units EVERY 12 HOURS SUBQ 07/20/18 21:00 08/18/18 20:59 07/26/18 20:58 Hydromorphone HCl (Dilaudid) 2 mg Q3H PRN IVP For Pain 07/21/18 14:40 07/27/18 20:39 07/27/18 11:42 Levofloxacin (Levaquin) 500 mg DAILY ORAL 07/27/18 09:00 08/03/18 08:59 07/27/18 08:15 Lorazepam (Ativan 2mg/ml 1ml) 0.5 mg Q4H PRN IV For Anxiety 07/20/18 20:40 07/27/18 20:39 Ondansetron HCl (Zofran) 4 mg Q4H PRN IVP Nausea & Vomiting 07/21/18 14:45 08/20/18 14:44 07/26/18 07:08 Oxycodone HCl (OxyCONTIN) 30 mg Q8HR ORAL 07/21/18 14:00 07/28/18 13:59 07/27/18 13:49 Polyethylene Glycol (Miralax) 17 gm HSPRN PRN ORAL Constipation 07/20/18 20:40 08/19/18 20:39 Sodium Chloride 1,000 ml @ 125 mls/hr Q8H IV 07/22/18 16:15 08/21/18 16:14 07/27/18 10:00 Zolpidem Tartrate (Ambien) 5 mg HSPRN PRN ORAL Insomnia 07/20/18 20:40 07/27/18 20:39 07/20/18 23:48 Anjana Bang M.D. Jul 27, 2018 15:14
[2018-07-27 16:00] VITALS: BP 132/74
[2018-07-27 20:00] VITALS: BP 133/58
[2018-07-27] MEDS: Dyna-Hex 2% Top Sol 2oz TOPIC SCH (20:29)
[2018-07-28] VITALS (7 sets, daily range): BP systolic 112–158; BP diastolic 65–84
[2018-07-28 05:57] LABS: HEMATOCRIT 28.7 % (42.0-52.0); HEMOGLOBIN 9.3 G/DL (14.2-18.0); MEAN CORPUSCULAR VOLUME 95 FL (80-99); PLATELET COUNT 413 K/UL (150-450); RED CELL DISTRIBUTION WIDTH 17.6 % (11.6-14.8)
[2018-07-28] MEDS: oxyCONTIN 10mg tab ORAL SCH ×3 (06:28→22:32)
[2018-07-28 06:31] LABS: ANION GAP 6 mmol/L (5-15); BLOOD UREA NITROGEN 3 mg/dL (7-18); CALCIUM 9.1 MG/DL (8.5-10.1); CARBON DIOXIDE 29 MMOL/L (21-32); CHLORIDE 104 MMOL/L (98-107); CREATININE 0.5 MG/DL (0.55-1.30); POTASSIUM 3.9 MMOL/L (3.5-5.1); SODIUM 139 MMOL/L (136-145)
[2018-07-28] MEDS: Heparin 5000 units/ml inj SUBQ SCH ×2 (09:00→21:00)
[2018-07-28] MEDS: Levofloxacin 500mg tab ORAL SCH (09:14)
--- NOTE | 2018-07-28 14:01 | General Progress Note ---
Assessment/Plan Problem List: (1) Asthma ICD Codes: J45.909 - Unspecified asthma, uncomplicated SNOMED: 138458451 (2) Sickle cell disease ICD Codes: D57.1 - Sickle-cell disease without crisis SNOMED: 158710743 (3) Knee pain, bilateral ICD Codes: M25.561 - Pain in right knee; M25.562 - Pain in left knee SNOMED: 00128691 (4) Sickle cell crisis ICD Codes: D57.00 - Hb-SS disease with crisis, unspecified SNOMED: 431786363 (5) Anemia ICD Codes: D64.9 - Anemia, unspecified SNOMED: 239489851 Status: stable, progressing Assessment/Plan o2nc picc line id eval pain control ivf heme f/u transfuse prn cbc bmp am home if clear Subjective Constitutional: Reports: weakness Respiratory: Reports: shortness of breath Allergies: Coded Allergies: CEFTRIAXONE (Verified Allergy, Unknown, 04/20/16) Uncoded Allergies: CONTRAST (Adverse Reaction, Severe, Rash, 06/23/16) RADIOCONTRAST - RASH, ITCHING All Systems: reviewed and negative except above Subjective o2nc leg pain 5/10 Objective Last 24 Hour Vital Signs Date Time Temp Pulse Resp B/P (MAP) Pulse Ox O2 Delivery O2 Flow Rate FiO2 07/28/18 12:00 100.1 78 18 158/75 (102) 97 07/28/18 09:45 98.6 07/28/18 08:00 100.7 76 17 130/84 (99) 97 07/28/18 05:33 98.6 76 18 127/74 (91) 99 07/28/18 00:00 99.2 61 18 118/74 (89) 98 07/27/18 21:00 Room Air 07/27/18 20:00 98.9 74 17 133/58 (83) 97 07/27/18 16:21 99.5 07/27/18 16:00 99.5 73 20 132/74 (93) 99 07/27/18 14:19 98.3 Intake and Output 07/27/18 07/28/18 19:00 07:00 Intake Total 2215 ml 1615 ml Balance 2215 ml 1615 ml Intake Oral 840 ml 240 ml IV Total 1375 ml 1375 ml # Voids 3 3 Laboratory Tests 07/28/18 05:00: White Blood Count 9.0, Red Blood Count 3.00L, Hemoglobin 9.3L, Hematocrit 28.7L , Mean Corpuscular Volume 95, Mean Corpuscular Hemoglobin 31.1H, Mean Corpuscular Hemoglobin Concent 32.6, Red Cell Distribution Width 17.6H, Platelet Count 413, Mean Platelet Volume 6.6, Neutrophils (%) (Auto) , Lymphocytes (%) (Auto) , Monocytes (%) (Auto) , Eosinophils (%) (Auto) , Basophils (%) (Auto) , Differential Total Cells Counted 100, Neutrophils % ( Manual) 43L, Lymphocytes % (Manual) 45, Monocytes % (Manual) 9, Eosinophils % ( Manual) 3, Basophils % (Manual) 0, Band Neutrophils 0, Nucleated Red Blood Cells 78, Platelet Estimate Adequate, Platelet Morphology Normal, Hypochromasia 2+, Anisocytosis 1+, Sodium Level 139, Potassium Level 3.9, Chloride Level 104, Carbon Dioxide Level 29, Anion Gap 6, Blood Urea Nitrogen 3L, Creatinine 0.5L, Estimat Glomerular Filtration Rate > 60, Glucose Level 102, Calcium Level 9.1 Height (Feet): 5 Height (Inches): 6.00 Weight (Pounds): 252 General Appearance: lethargic EENT: normal ENT inspection Neck: normal alignment Cardiovascular: normal peripheral pulses, normal rate, regular rhythm Respiratory/Chest: chest wall non-tender, lungs clear, normal breath sounds Abdomen: normal bowel sounds, non tender, soft Extremities: normal inspection Edema: no edema noted Arm (L), no edema noted Arm (R), no edema noted Leg (L), no edema noted Leg (R), no edema noted Pedal (L), no edema noted Pedal (R), no edema noted Generalized Neurologic: responsive, motor weakness Skin: normal pigmentation, warm/dry Bubba Wesley DO Jul 28, 2018 14:01
--- NOTE | 2018-07-28 14:16 | Infectious Diseases Prog Note ---
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 Will continue to follow along with you. Subjective Allergies: Coded Allergies: CEFTRIAXONE (Verified Allergy, Unknown, 04/20/16) Uncoded Allergies: CONTRAST (Adverse Reaction, Severe, Rash, 06/23/16) RADIOCONTRAST - RASH, ITCHING Subjective Tm 100.7 no leukocytosis ; initially reported as 24 but corrected to 9 ucx and Bcx NTD Objective Vital Signs Last 24 Hour Vital Signs Date Time Temp Pulse Resp B/P (MAP) Pulse Ox O2 Delivery O2 Flow Rate FiO2 07/28/18 12:00 100.1 78 18 158/75 (102) 97 07/28/18 09:45 98.6 07/28/18 08:00 100.7 76 17 130/84 (99) 97 07/28/18 05:33 98.6 76 18 127/74 (91) 99 07/28/18 00:00 99.2 61 18 118/74 (89) 98 07/27/18 21:00 Room Air 07/27/18 20:00 98.9 74 17 133/58 (83) 97 07/27/18 16:21 99.5 07/27/18 16:00 99.5 73 20 132/74 (93) 99 07/27/18 14:19 98.3 Height (Feet): 5 Height (Inches): 6.00 Weight (Pounds): 252 Objective General Appearance: well appearing, no apparent distress HEENT: normocephalic, atraumatic bilateral eye PERRL, bilateral eye EOMI, normal pharynx Neck: full range of motion, supple, no meningismus, no bony tend Respiratory: lungs clear, normal breath sounds, no rhonchi, no respiratory distress, no retraction, no accessory muscle use Cardiovascular: normal peripheral pulses, regular rate, rhythm, no edema, no gallop, no JVD, no murmur Gastrointestinal: normal bowel sounds, non tender, soft, no mass, no organomegaly, non-distended, no guarding, no hernia, no pulsatile mass, no rebound Genitourinary: no CVA tenderness Musculoskeletal: normal inspection 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, responsive, 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, motor strength/ tone normal, sensory intact Skin: normal color, no rash, warm/dry, palpation normal Lymphatic: normal inspection, no adenopathy Microbiology Date/Time Source Procedure Growth Status 07/26/18 18:30 Urine,Clean Catch Urine Culture - Preliminary NO GROWTH AFTER 24 HOURS Resulted Laboratory Tests Test 07/28/18 05:00 White Blood Count 9.0 K/UL (4.8-10.8) Red Blood Count 3.00 M/UL (4.70-6.10) L Hemoglobin 9.3 G/DL (14.2-18.0) L Hematocrit 28.7 % (42.0-52.0) L Mean Corpuscular Volume 95 FL (80-99) Mean Corpuscular Hemoglobin 31.1 PG (27.0-31.0) H Mean Corpuscular Hemoglobin Concent 32.6 G/DL (32.0-36.0) Red Cell Distribution Width 17.6 % (11.6-14.8) H Platelet Count 413 K/UL (150-450) Mean Platelet Volume 6.6 FL (6.5-10.1) Neutrophils (%) (Auto) % (45.0-75.0) Lymphocytes (%) (Auto) % (20.0-45.0) Monocytes (%) (Auto) % (1.0-10.0) Eosinophils (%) (Auto) % (0.0-3.0) Basophils (%) (Auto) % (0.0-2.0) Differential Total Cells Counted 100 Neutrophils % (Manual) 43 % (45-75) L Lymphocytes % (Manual) 45 % (20-45) Monocytes % (Manual) 9 % (1-10) Eosinophils % (Manual) 3 % (0-3) Basophils % (Manual) 0 % (0-2) Band Neutrophils 0 % (0-8) Nucleated Red Blood Cells 78 /100 WBC Platelet Estimate Adequate Platelet Morphology Normal Hypochromasia 2+ Anisocytosis 1+ Sodium Level 139 MMOL/L (136-145) Potassium Level 3.9 MMOL/L (3.5-5.1) Chloride Level 104 MMOL/L (98-107) Carbon Dioxide Level 29 MMOL/L (21-32) Anion Gap 6 mmol/L (5-15) Blood Urea Nitrogen 3 mg/dL (7-18) L Creatinine 0.5 MG/DL (0.55-1.30) L Estimat Glomerular Filtration Rate > 60 mL/min (>60) Glucose Level 102 MG/DL (74-106) Calcium Level 9.1 MG/DL (8.5-10.1) Current Medications Medications (Trade) Dose Ordered Sig/Arianne Route PRN Reason Start Time Stop Time Status Last Admin Dose Admin Acetaminophen (Tylenol) 650 mg Q4H PRN ORAL fever (Temp>100.5F) 07/20/18 20:45 08/19/18 20:44 Al Hydroxide/Mg Hydroxide (Mylanta II) 30 ml Q6H PRN ORAL dyspepsia 07/20/18 20:40 08/18/18 20:39 07/22/18 22:29 Chlorhexidine Gluconate (Jihan-Hex 2%) 1 applic DAILY@1999 TOPIC 07/24/18 20:00 08/23/18 19:59 07/27/18 20:29 Dextrose (Dextrose 50%) 50 ml Q30M PRN IV Hypoglycemia 07/20/18 20:30 08/18/18 15:59 Dextrose (Dextrose 50%) 50 ml Q30M PRN IV Hypoglycemia 07/20/18 20:45 08/18/18 16:14 Heparin Sodium (Porcine) (Heparin 5000 units/ml) 5,000 units EVERY 12 HOURS SUBQ 07/20/18 21:00 08/18/18 20:59 07/27/18 20:33 Hydromorphone HCl (Dilaudid) 2 mg Q3H PRN IVP For Pain 07/27/18 23:30 08/03/18 23:29 07/28/18 12:53 Levofloxacin (Levaquin) 500 mg DAILY ORAL 07/27/18 09:00 08/03/18 08:59 07/28/18 09:14 Ondansetron HCl (Zofran) 4 mg Q4H PRN IVP Nausea & Vomiting 07/21/18 14:45 08/20/18 14:44 07/28/18 09:16 Oxycodone HCl (OxyCONTIN) 30 mg Q8HR ORAL 07/28/18 14:00 08/04/18 13:59 Polyethylene Glycol (Miralax) 17 gm HSPRN PRN ORAL Constipation 07/20/18 20:40 08/19/18 20:39 Sodium Chloride 1,000 ml @ 125 mls/hr Q8H IV 07/22/18 16:15 08/21/18 16:14 07/28/18 09:14 Anjana Bang M.D. Jul 28, 2018 14:16
[2018-07-28] MEDS: Dyna-Hex 2% Top Sol 2oz TOPIC SCH (21:58)
[2018-07-28] MEDS: metroNIDAZOLE 500mg tab ORAL SCH (22:07)
[2018-07-29] VITALS: BP 115/50
[2018-07-29 04:00] VITALS: BP 112/55
[2018-07-29] MEDS: metroNIDAZOLE 500mg tab ORAL SCH ×3 (06:21→22:26)
[2018-07-29] MEDS: oxyCONTIN 10mg tab ORAL SCH ×3 (06:22→22:28)
[2018-07-29 07:23] LABS: HEMATOCRIT 26.8 % (42.0-52.0); HEMOGLOBIN 8.6 G/DL (14.2-18.0); MEAN CORPUSCULAR VOLUME 97 FL (80-99); PLATELET COUNT 400 K/UL (150-450); RED BLOOD COUNT 2.78 M/UL (4.70-6.10); RED CELL DISTRIBUTION WIDTH 17.5 % (11.6-14.8)
[2018-07-29 07:41] LABS: ANION GAP 8 mmol/L (5-15); BLOOD UREA NITROGEN 4 mg/dL (7-18); CALCIUM 8.8 MG/DL (8.5-10.1); CARBON DIOXIDE 27 MMOL/L (21-32); CHLORIDE 106 MMOL/L (98-107); CREATININE 0.6 MG/DL (0.55-1.30); POTASSIUM 3.8 MMOL/L (3.5-5.1); SODIUM 141 MMOL/L (136-145)
[2018-07-29 08:00] VITALS: BP 135/61
[2018-07-29] MEDS: Levofloxacin 500mg tab ORAL SCH (08:11)
[2018-07-29] MEDS: Heparin 5000 units/ml inj SUBQ SCH ×2 (08:14→22:27)
--- NOTE | 2018-07-29 08:33 | General Progress Note ---
Assessment/Plan Problem List: (1) Asthma ICD Codes: J45.909 - Unspecified asthma, uncomplicated SNOMED: 504548321 (2) Sickle cell disease ICD Codes: D57.1 - Sickle-cell disease without crisis SNOMED: 253827399 (3) Knee pain, bilateral ICD Codes: M25.561 - Pain in right knee; M25.562 - Pain in left knee SNOMED: 83783532 (4) Sickle cell crisis ICD Codes: D57.00 - Hb-SS disease with crisis, unspecified SNOMED: 959506846 (5) Anemia ICD Codes: D64.9 - Anemia, unspecified SNOMED: 451280608 Status: unchanged Assessment/Plan o2nc picc line id eval pain control ivf heme f/u transfuse prn cbc bmp am abx per id Subjective Constitutional: Reports: weakness Allergies: Coded Allergies: CEFTRIAXONE (Verified Allergy, Unknown, 04/20/16) Uncoded Allergies: CONTRAST (Adverse Reaction, Severe, Rash, 06/23/16) RADIOCONTRAST - RASH, ITCHING All Systems: reviewed and negative except above Subjective o2nc leg pain 5/10 Objective Last 24 Hour Vital Signs Date Time Temp Pulse Resp B/P (MAP) Pulse Ox O2 Delivery O2 Flow Rate FiO2 07/29/18 04:00 97.8 51 19 112/55 (74) 98 07/29/18 00:00 97.9 61 19 115/50 (71) 96 07/28/18 21:00 Nasal Cannula 2.0 07/28/18 20:00 98.6 78 19 112/70 (84) 95 07/28/18 17:24 98.5 07/28/18 16:00 98.5 87 16 130/71 (90) 97 07/28/18 15:07 98.6 07/28/18 14:37 99.3 75 16 118/65 (82) 98 07/28/18 12:00 100.1 78 18 158/75 (102) 97 07/28/18 09:00 Nasal Cannula 2.0 Intake and Output 07/28/18 07/29/18 18:59 06:59 Intake Total 1125 ml 1575 ml Balance 1125 ml 1575 ml Intake Oral 200 ml IV Total 1125 ml 1375 ml # Voids 2 3 # Bowel Movements 2 Laboratory Tests 07/29/18 05:30: White Blood Count 20.5#H, Red Blood Count 2.78L, Hemoglobin 8.6L, Hematocrit 26.8L, Mean Corpuscular Volume 97, Mean Corpuscular Hemoglobin 31.0, Mean Corpuscular Hemoglobin Concent 32.1, Red Cell Distribution Width 17.5H, Platelet Count 400, Mean Platelet Volume 6.4L, Neutrophils (%) (Auto) , Lymphocytes (%) (Auto) , Monocytes (%) (Auto) , Eosinophils (%) (Auto) , Basophils (%) (Auto) , Neutrophils % (Manual) [Pending], Lymphocytes % (Manual) [Pending], Platelet Estimate [Pending], Platelet Morphology [Pending], Sodium Level 141, Potassium Level 3.8, Chloride Level 106, Carbon Dioxide Level 27, Anion Gap 8, Blood Urea Nitrogen 4L, Creatinine 0.6, Estimat Glomerular Filtration Rate > 60, Glucose Level 96, Calcium Level 8.8 Height (Feet): 5 Height (Inches): 6.00 Weight (Pounds): 252 General Appearance: lethargic EENT: normal ENT inspection Neck: normal alignment Cardiovascular: normal peripheral pulses, normal rate, regular rhythm Respiratory/Chest: chest wall non-tender, lungs clear, normal breath sounds Abdomen: normal bowel sounds, non tender, soft Extremities: normal inspection Edema: no edema noted Arm (L), no edema noted Arm (R), no edema noted Leg (L), no edema noted Leg (R), no edema noted Pedal (L), no edema noted Pedal (R), no edema noted Generalized Neurologic: responsive, motor weakness Skin: normal pigmentation, warm/dry Bubba Wesley DO Jul 29, 2018 08:33
--- NOTE | 2018-07-29 11:48 | Infectious Diseases Prog Note ---
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 Will continue to follow along with you. Subjective Allergies: Coded Allergies: CEFTRIAXONE (Verified Allergy, Unknown, 04/20/16) Uncoded Allergies: CONTRAST (Adverse Reaction, Severe, Rash, 06/23/16) RADIOCONTRAST - RASH, ITCHING Subjective afebrile in ~24hrs WBC reported as 20 today; however yestserday again int he am reported as 24 and then corrected to 9 - i called to clarify and the reason of the change is that nucleated (immature) RBC were being count at WBC no vomiting or diarrhea today Objective Vital Signs Last 24 Hour Vital Signs Date Time Temp Pulse Resp B/P (MAP) Pulse Ox O2 Delivery O2 Flow Rate FiO2 07/29/18 09:00 Nasal Cannula 2.0 07/29/18 08:00 98.9 53 19 135/61 (85) 99 07/29/18 04:00 97.8 51 19 112/55 (74) 98 07/29/18 00:00 97.9 61 19 115/50 (71) 96 07/28/18 21:00 Nasal Cannula 2.0 07/28/18 20:00 98.6 78 19 112/70 (84) 95 07/28/18 17:24 98.5 07/28/18 16:00 98.5 87 16 130/71 (90) 97 07/28/18 15:07 98.6 07/28/18 14:37 99.3 75 16 118/65 (82) 98 07/28/18 12:00 100.1 78 18 158/75 (102) 97 Height (Feet): 5 Height (Inches): 6.00 Weight (Pounds): 252 Objective General Appearance: well appearing, no apparent distress HEENT: normocephalic, atraumatic bilateral eye PERRL, bilateral eye EOMI, normal pharynx Neck: full range of motion, supple, no meningismus, no bony tend Respiratory: lungs clear, normal breath sounds, no rhonchi, no respiratory distress, no retraction, no accessory muscle use Cardiovascular: normal peripheral pulses, regular rate, rhythm, no edema, no gallop, no JVD, no murmur Gastrointestinal: normal bowel sounds, non tender, soft, no mass, no organomegaly, non-distended, no guarding, no hernia, no pulsatile mass, no rebound Genitourinary: no CVA tenderness Musculoskeletal: normal inspection 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, responsive, pharmacist aide III-XII nml as tested, motor strength/ tone normal, sensory intact Skin: normal color, no rash, warm/dry, palpation normal Lymphatic: normal inspection, no adenopathy Microbiology Date/Time Source Procedure Growth Status 07/26/18 18:30 Urine,Clean Catch Urine Culture - Final NO GROWTH AFTER 48 HOURS Complete Laboratory Tests Test 07/29/18 05:30 White Blood Count 20.5 K/UL (4.8-10.8) #H Red Blood Count 2.78 M/UL (4.70-6.10) L Hemoglobin 8.6 G/DL (14.2-18.0) L Hematocrit 26.8 % (42.0-52.0) L Mean Corpuscular Volume 97 FL (80-99) Mean Corpuscular Hemoglobin 31.0 PG (27.0-31.0) Mean Corpuscular Hemoglobin Concent 32.1 G/DL (32.0-36.0) Red Cell Distribution Width 17.5 % (11.6-14.8) H Platelet Count 400 K/UL (150-450) Mean Platelet Volume 6.4 FL (6.5-10.1) L Neutrophils (%) (Auto) % (45.0-75.0) Lymphocytes (%) (Auto) % (20.0-45.0) Monocytes (%) (Auto) % (1.0-10.0) Eosinophils (%) (Auto) % (0.0-3.0) Basophils (%) (Auto) % (0.0-2.0) Differential Total Cells Counted 100 Neutrophils % (Manual) 58 % (45-75) Lymphocytes % (Manual) 32 % (20-45) Monocytes % (Manual) 3 % (1-10) Eosinophils % (Manual) 7 % (0-3) H Basophils % (Manual) 0 % (0-2) Band Neutrophils 0 % (0-8) Nucleated Red Blood Cells 84 /100 WBC Platelet Estimate Adequate Platelet Morphology Normal Polychromasia 3+ Anisocytosis 2+ Target Cells 3+ Sodium Level 141 MMOL/L (136-145) Potassium Level 3.8 MMOL/L (3.5-5.1) Chloride Level 106 MMOL/L (98-107) Carbon Dioxide Level 27 MMOL/L (21-32) Anion Gap 8 mmol/L (5-15) Blood Urea Nitrogen 4 mg/dL (7-18) L Creatinine 0.6 MG/DL (0.55-1.30) Estimat Glomerular Filtration Rate > 60 mL/min (>60) Glucose Level 96 MG/DL (74-106) Calcium Level 8.8 MG/DL (8.5-10.1) Current Medications Medications (Trade) Dose Ordered Sig/Arianne Route PRN Reason Start Time Stop Time Status Last Admin Dose Admin Acetaminophen (Tylenol) 650 mg Q4H PRN ORAL fever (Temp>100.5F) 07/20/18 20:45 08/19/18 20:44 Al Hydroxide/Mg Hydroxide (Mylanta II) 30 ml Q6H PRN ORAL dyspepsia 07/20/18 20:40 08/18/18 20:39 07/22/18 22:29 Chlorhexidine Gluconate (Jihan-Hex 2%) 1 applic DAILY@1999 TOPIC 07/24/18 20:00 08/23/18 19:59 07/28/18 21:58 Dextrose (Dextrose 50%) 50 ml Q30M PRN IV Hypoglycemia 07/20/18 20:30 08/18/18 15:59 Dextrose (Dextrose 50%) 50 ml Q30M PRN IV Hypoglycemia 07/20/18 20:45 08/18/18 16:14 Heparin Sodium (Porcine) (Heparin 5000 units/ml) 5,000 units EVERY 12 HOURS SUBQ 07/20/18 21:00 08/18/18 20:59 07/29/18 08:14 Hydromorphone HCl (Dilaudid) 2 mg Q3H PRN IVP For Pain 07/27/18 23:30 08/03/18 23:29 07/29/18 08:12 Levofloxacin (Levaquin) 500 mg DAILY ORAL 07/27/18 09:00 08/03/18 08:59 07/29/18 08:11 Metronidazole (Flagyl) 500 mg Q8HR ORAL 07/28/18 22:00 08/04/18 21:59 07/29/18 06:21 Ondansetron HCl (Zofran) 4 mg Q4H PRN IVP Nausea & Vomiting 07/21/18 14:45 08/20/18 14:44 07/29/18 08:11 Oxycodone HCl (OxyCONTIN) 30 mg Q8HR ORAL 07/28/18 14:00 08/04/18 13:59 07/29/18 06:22 Polyethylene Glycol (Miralax) 17 gm HSPRN PRN ORAL Constipation 07/20/18 20:40 08/19/18 20:39 Sodium Chloride 1,000 ml @ 125 mls/hr Q8H IV 07/22/18 16:15 08/21/18 16:14 07/29/18 08:10 Anjana Bang M.D. Jul 29, 2018 11:48
[2018-07-29 11:51] LABS: WHITE BLOOD COUNT 14.7 K/UL (4.8-10.8)
[2018-07-29 12:00] VITALS: BP 131/55
[2018-07-29] MEDS: Hydroxyurea 500mg cap ORAL SCH (12:10)
[2018-07-29] MEDS ORDERED: Tubing IV Secondary IV ONE (13:17)
--- NOTE | 2018-07-29 15:30 | General Progress Note ---
Assessment/Plan Status: stable Assessment/Plan 1. 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 --> Presented in sickle crisis. on hydrea, opioids --> retic daily which has been ordered --> cbc has been reviewed --> continue hydrea 3500mg po daily --> continue indiral powder adjunct medication --> appreciate pain management recs --> on ns as per pcp and better 2. Anemia, secondary to sickle cell disease/B thalassemia --> hgb goal >7, transfuse prn. --> Blood tx: 07/24 3. Leukocytosis, secondary to reactive process, potentially sepsis as well as on antibiotics. --> Monitor and trend wbc for improvement --> given uptrending, concerning for infection --> cultures are negative --> ON ABX as per ID, appreciate recs 4. Thrombocytosis, potentially secondary to reactive process. --> Improved/Resolved 5. Acute chest does have evidence of pna --> s/p antibiotics 6. Hyperbilirubinemia, potentially secondary to minor hemolysis. 7. Reticulocytosis consisting with sickle cell crisis. 8. Left shoulder pain. Appreciate consultation. Subjective Date patient seen: Jul 29, 2018 Hematologic/Lymphatic: Reports: anemia Allergies: Coded Allergies: CEFTRIAXONE (Verified Allergy, Unknown, 04/20/16) Uncoded Allergies: CONTRAST (Adverse Reaction, Severe, Rash, 06/23/16) RADIOCONTRAST - RASH, ITCHING All Systems: reviewed and negative except above Subjective Pt awake and alert. No acute events. Urine and blood cx are both negative. H/H stable. Objective Last 24 Hour Vital Signs Date Time Temp Pulse Resp B/P (MAP) Pulse Ox O2 Delivery O2 Flow Rate FiO2 07/29/18 12:31 99.1 07/29/18 12:00 99.1 59 19 131/55 (80) 99 07/29/18 09:00 Nasal Cannula 2.0 07/29/18 08:00 98.9 53 19 135/61 (85) 99 07/29/18 04:00 97.8 51 19 112/55 (74) 98 07/29/18 00:00 97.9 61 19 115/50 (71) 96 07/28/18 21:00 Nasal Cannula 2.0 07/28/18 20:00 98.6 78 19 112/70 (84) 95 07/28/18 16:00 98.5 87 16 130/71 (90) 97 Intake and Output 07/28/18 07/29/18 19:00 07:00 Intake Total 1250 ml 1450 ml Balance 1250 ml 1450 ml Intake Oral 200 ml IV Total 1250 ml 1250 ml # Voids 2 3 # Bowel Movements 2 Laboratory Tests 07/29/18 05:30: White Blood Count 14.7#H, Red Blood Count 2.78L, Hemoglobin 8.6L, Hematocrit 26.8L, Mean Corpuscular Volume 97, Mean Corpuscular Hemoglobin 31.0, Mean Corpuscular Hemoglobin Concent 32.1, Red Cell Distribution Width 17.5H, Platelet Count 400, Mean Platelet Volume 6.4L, Neutrophils (%) (Auto) , Lymphocytes (%) (Auto) , Monocytes (%) (Auto) , Eosinophils (%) (Auto) , Basophils (%) (Auto) , Differential Total Cells Counted 100, Neutrophils % ( Manual) 58, Lymphocytes % (Manual) 32, Monocytes % (Manual) 3, Eosinophils % ( Manual) 7H, Basophils % (Manual) 0, Band Neutrophils 0, Nucleated Red Blood Cells 84, Platelet Estimate Adequate, Platelet Morphology Normal, Polychromasia 3+, Anisocytosis 2+, Target Cells 3+, Sodium Level 141, Potassium Level 3.8, Chloride Level 106, Carbon Dioxide Level 27, Anion Gap 8, Blood Urea Nitrogen 4L , Creatinine 0.6, Estimat Glomerular Filtration Rate > 60, Glucose Level 96, Calcium Level 8.8 Height (Feet): 5 Height (Inches): 6.00 Weight (Pounds): 252 Objective PE: Vital Signs: reviewed Head: normocephalic Eyes: bilateral eye PERRL, bilateral eye conjunctivae pale ENT: moist mucus membranes Neck: supple Respiratory: lungs clear, normal breath sounds Cardiovascular: 2+ radial (R), regular rate, rhythm GI: normal inspection, normal bowel sounds, non tender, no mass, non-distended Musculoskeletal: back normal, gait/station normal, normal rom Neurologic: alert, oriented x3, 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 Psychiatric: depressed affect Skin: pallor Lewis Olmedo MD Jul 29, 2018 15:30
[2018-07-29 16:00] VITALS: BP 138/79
[2018-07-29 20:00] VITALS: BP 132/58
[2018-07-29] MEDS: Dyna-Hex 2% Top Sol 2oz TOPIC SCH (22:26)
[2018-07-30] VITALS: BP 128/76
[2018-07-30 04:00] VITALS: BP 117/70
[2018-07-30] MEDS: metroNIDAZOLE 500mg tab ORAL SCH ×3 (05:23→21:59)
[2018-07-30] MEDS: oxyCONTIN 10mg tab ORAL SCH ×3 (05:24→21:59)
[2018-07-30 06:14] LABS: BASOPHILS % (AUTO) 0.9 % (0.0-2.0); EOSINOPHILS % (AUTO) 2.2 % (0.0-3.0); HEMATOCRIT 26.2 % (42.0-52.0); HEMOGLOBIN 8.8 G/DL (14.2-18.0); LYMPHOCYTES % (AUTO) 50.3 % (20.0-45.0); MEAN CORPUSCULAR VOLUME 93 FL (80-99); MONOCYTES % (AUTO) 4.6 % (1.0-10.0); NEUTROPHILS % (AUTO) 41.9 % (45.0-75.0); PLATELET COUNT 391 K/UL (150-450); RED CELL DISTRIBUTION WIDTH 17.9 % (11.6-14.8)
[2018-07-30 08:00] VITALS: BP 121/67
[2018-07-30 08:02] LABS: ALANINE AMINOTRANSFERASE 153 U/L (12-78); ALBUMIN 3.1 G/DL (3.4-5.0); ALBUMIN/GLOBULIN RATIO 0.8 (1.0-2.7); ALKALINE PHOSPHATASE 90 U/L (46-116); ANION GAP 7 mmol/L (5-15); ASPARTATE AMINO TRANSFERASE 53 U/L (15-37); BILIRUBIN,TOTAL 0.6 MG/DL (0.2-1.0); BLOOD UREA NITROGEN 4 mg/dL (7-18); CALCIUM 8.7 MG/DL (8.5-10.1); CARBON DIOXIDE 28 MMOL/L (21-32); CHLORIDE 106 MMOL/L (98-107); CREATININE 0.5 MG/DL (0.55-1.30); SODIUM 141 MMOL/L (136-145)
--- NOTE | 2018-07-30 08:10 | General Progress Note ---
Assessment/Plan Problem List: (1) Asthma ICD Codes: J45.909 - Unspecified asthma, uncomplicated SNOMED: 795925042 (2) Sickle cell disease ICD Codes: D57.1 - Sickle-cell disease without crisis SNOMED: 186199868 (3) Knee pain, bilateral ICD Codes: M25.561 - Pain in right knee; M25.562 - Pain in left knee SNOMED: 76346091 (4) Sickle cell crisis ICD Codes: D57.00 - Hb-SS disease with crisis, unspecified SNOMED: 872522147 (5) Anemia ICD Codes: D64.9 - Anemia, unspecified SNOMED: 256481864 Status: stable, progressing Assessment/Plan o2nc picc line id eval pain control ivf heme f/u transfuse prn cbc bmp am abx per id dc if clear Subjective Constitutional: Reports: weakness Respiratory: Reports: shortness of breath Allergies: Coded Allergies: CEFTRIAXONE (Verified Allergy, Unknown, 04/20/16) Uncoded Allergies: CONTRAST (Adverse Reaction, Severe, Rash, 06/23/16) RADIOCONTRAST - RASH, ITCHING All Systems: reviewed and negative except above Subjective o2nc leg pain 5/10 Objective Last 24 Hour Vital Signs Date Time Temp Pulse Resp B/P (MAP) Pulse Ox O2 Delivery O2 Flow Rate FiO2 07/30/18 04:00 97.7 54 18 117/70 (86) 98 07/30/18 00:00 98.1 53 18 128/76 (93) 100 07/29/18 21:00 Nasal Cannula 2.0 07/29/18 20:00 99.7 69 19 132/58 (82) 98 07/29/18 17:29 99.9 07/29/18 16:00 99.9 56 19 138/79 (98) 98 07/29/18 12:00 99.1 59 19 131/55 (80) 99 07/29/18 09:00 Nasal Cannula 2.0 Intake and Output 07/29/18 07/30/18 18:59 06:59 Intake Total 3375 ml 1375 ml Balance 3375 ml 1375 ml Intake Oral 2000 ml IV Total 1375 ml 1375 ml # Voids 5 Laboratory Tests 07/30/18 05:42: White Blood Count 9.0, Red Blood Count 2.80L, Hemoglobin 8.8L, Hematocrit 26.2L , Mean Corpuscular Volume 93, Mean Corpuscular Hemoglobin 31.3H, Mean Corpuscular Hemoglobin Concent 33.5, Red Cell Distribution Width 17.9H, Platelet Count 391, Mean Platelet Volume 6.0L, Neutrophils (%) (Auto) 41.9L, Lymphocytes (%) (Auto) 50.3H, Monocytes (%) (Auto) 4.6, Eosinophils (%) (Auto) 2.2, Basophils (%) (Auto) 0.9, Neutrophils % (Manual) [Pending], Lymphocytes % ( Manual) [Pending], Platelet Estimate [Pending], Platelet Morphology [Pending], Sodium Level 141, Potassium Level 4.0, Chloride Level 106, Carbon Dioxide Level 28, Anion Gap 7, Blood Urea Nitrogen 4L, Creatinine 0.5L, Estimat Glomerular Filtration Rate > 60, Glucose Level 105, Calcium Level 8.7, Total Bilirubin 0.6 , Aspartate Amino Transf (AST/SGOT) 53H, Alanine Aminotransferase (ALT/SGPT) 153H, Alkaline Phosphatase 90, Total Protein 7.0, Albumin 3.1L, Globulin 3.9, Albumin/Globulin Ratio 0.8L Height (Feet): 5 Height (Inches): 6.00 Weight (Pounds): 252 General Appearance: lethargic EENT: normal ENT inspection Neck: normal alignment Cardiovascular: normal peripheral pulses, normal rate, regular rhythm Respiratory/Chest: chest wall non-tender, lungs clear, normal breath sounds Abdomen: normal bowel sounds, non tender, soft Extremities: normal inspection Edema: no edema noted Arm (L), no edema noted Arm (R), no edema noted Leg (L), no edema noted Leg (R), no edema noted Pedal (L), no edema noted Pedal (R), no edema noted Generalized Neurologic: motor weakness Skin: normal pigmentation, warm/dry Bubba Wesley DO Jul 30, 2018 08:10
[2018-07-30] MEDS: Heparin 5000 units/ml inj SUBQ SCH ×2 (08:32→22:01)
--- NOTE | 2018-07-30 09:37 | Diagnostic Imaging Report ---
EXAM: XR Abdomen, 2 Views CLINICAL HISTORY: PAIN TECHNIQUE: Frontal supine views of the abdomen and pelvis. COMPARISON: No relevant prior studies available. FINDINGS: Lower thorax: Lung bases appear unremarkable. Intraperitoneal space: No intraperitoneal free air. Gastrointestinal tract: Nonobstructive, nonspecific bowel gas pattern. No evidence of pneumatosis intestinalis. Organs: Renal shadows are partially obscured by bowel gas. No abnormal calcifications identified in the abdomen or pelvis. Bones/joints: Osseous deformity in the left humerus head, which may suggest cam-type femoral acetabular impingement. IMPRESSION: 1. Nonobstructive, nonspecific bowel gas pattern. 2. 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
[2018-07-30] MEDS: Levofloxacin 500mg tab ORAL SCH (10:00)
[2018-07-30] MEDS: Hydroxyurea 500mg cap ORAL SCH (10:30)
[2018-07-30 12:00] VITALS: BP 126/67
--- NOTE | 2018-07-30 14:39 | Diagnostic Imaging Report ---
EXAM: US Abdomen Complete CLINICAL HISTORY: ABD PAIN TECHNIQUE: Real-time ultrasound of the abdomen (complete) with image documentation. COMPARISON: Abdominal ultrasound dated 05/23. FINDINGS: Liver: Liver diameter 19.5 cm. Liver otherwise appears unremarkable. No focal parenchymal lesions. No intrahepatic biliary ductal dilatation. Gallbladder: Unremarkable. No gallstones. No wall thickening. No pericholecystic fluid. Common bile duct: Common bile duct diameter of 2.7 mm. Pancreas: Unremarkable as visualized. Pancreatic body and tail are obscured by bowel gas. Kidneys: Right kidney length 13.4 cm. Left kidney length 13.9 cm. Normal cortical thickness. No visible parenchymal lesions. No visible stones. No hydronephrosis. Spleen: Unremarkable. No splenomegaly. Aorta: Visualized portions of the aorta appear unremarkable. Inferior vena cava: Visualized portions of the IVC appear unremarkable. IMPRESSION: Mildly enlarged liver, with a diameter of 19.5 cm. Otherwise no acute findings.
[2018-07-30 16:00] VITALS: BP 154/77
[2018-07-30 20:00] VITALS: BP 131/61
[2018-07-30] MEDS: Dyna-Hex 2% Top Sol 2oz TOPIC SCH (20:00)
--- NOTE | 2018-07-30 20:09 | General Progress Note ---
Assessment/Plan Assessment/Plan 1. 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 --> Presented in sickle crisis. on hydrea, opioids --> retic daily which has been ordered --> cbc has been reviewed --> continue hydrea 3500mg po daily --> continue indiral powder adjunct medication --> appreciate pain management recs --> on ns as per pcp and better 2. Anemia, secondary to sickle cell disease/B thalassemia --> hgb goal >7, transfuse prn. --> Blood tx: 07/24 3. Leukocytosis, secondary to reactive process, potentially sepsis as well as on antibiotics. --> Monitor and trend wbc for improvement --> given uptrending, concerning for infection --> cultures are negative --> ON ABX as per ID, appreciate recs 4. Thrombocytosis, potentially secondary to reactive process. --> Improved/Resolved 5. Acute chest does have evidence of pna --> s/p antibiotics 6. Hyperbilirubinemia, potentially secondary to minor hemolysis. 7. Reticulocytosis consisting with sickle cell crisis. 8. Left shoulder pain. Appreciate consultation. Subjective Constitutional: Denies: no symptoms, chills, diaphoresis, fever, malaise, weakness, other HEENT: Denies: no symptoms, eye pain, blurred vision, tearing, double vision, ear pain, ear discharge, nose pain, nose congestion, throat pain, throat swelling, mouth pain, mouth swelling, other Cardiovascular: Denies: no symptoms, chest pain, edema, irregular heart rate, lightheadedness, palpitations, syncope, other Respiratory: Denies: no symptoms, cough, orthopnea, shortness of breath, SOB with excertion, SOB at rest, sputum, stridor, wheezing, other Gastrointestinal/Abdominal: Denies: no symptoms, abdomen distended, abdominal pain, black stools, tarry stools, blood in stool, constipated, diarrhea, difficulty swallowing, nausea, poor appetite, poor fluid intake, rectal bleeding , vomiting, other Genitourinary: Denies: no symptoms, burning, discharge, frequency, flank pain, hematuria, incontinence, pain, urgency, other Neurologic/Psychiatric: Denies: no symptoms, anxiety, depressed, emotional problems, headache, numbness, paresthesia, pre-existing deficit, seizure, tingling, tremors, weakness, other Endocrine: Denies: no symptoms, excessive sweating, flushing, intolerance to cold, intolerance to heat, increased hunger, increased thirst, increased urine, unexplained weight gain, unexplained weight loss, other Allergies: Coded Allergies: CEFTRIAXONE (Verified Allergy, Unknown, 04/20/16) Uncoded Allergies: CONTRAST (Adverse Reaction, Severe, Rash, 06/23/16) RADIOCONTRAST - RASH, ITCHING Subjective Pt awake and alert. No acute events. less pain today Objective Last 24 Hour Vital Signs Date Time Temp Pulse Resp B/P (MAP) Pulse Ox O2 Delivery O2 Flow Rate FiO2 07/30/18 16:00 98.1 76 18 154/77 (102) 97 07/30/18 12:00 98.2 74 18 126/67 (86) 100 07/30/18 09:00 Nasal Cannula 2.0 07/30/18 09:00 Room Air 07/30/18 08:00 98.4 54 20 121/67 (85) 97 07/30/18 04:00 97.7 54 18 117/70 (86) 98 07/30/18 00:00 98.1 53 18 128/76 (93) 100 07/29/18 21:00 Nasal Cannula 2.0 Intake and Output 07/29/18 07/30/18 19:00 07:00 Intake Total 3625 ml 1125 ml Balance 3625 ml 1125 ml Intake Oral 2000 ml IV Total 1625 ml 1125 ml # Voids 5 Laboratory Tests 07/30/18 05:42: White Blood Count 9.0, Red Blood Count 2.80L, Hemoglobin 8.8L, Hematocrit 26.2L , Mean Corpuscular Volume 93, Mean Corpuscular Hemoglobin 31.3H, Mean Corpuscular Hemoglobin Concent 33.5, Red Cell Distribution Width 17.9H, Platelet Count 391, Mean Platelet Volume 6.0L, Neutrophils (%) (Auto) 41.9L, Lymphocytes (%) (Auto) 50.3H, Monocytes (%) (Auto) 4.6, Eosinophils (%) (Auto) 2.2, Basophils (%) (Auto) 0.9, Differential Total Cells Counted 100, Neutrophils % (Manual) 47, Lymphocytes % (Manual) 42, Monocytes % (Manual) 9, Eosinophils % (Manual) 2, Basophils % (Manual) 0, Band Neutrophils 0, Nucleated Red Blood Cells 47, Platelet Estimate Adequate, Platelet Morphology Normal, Polychromasia 2+, Hypochromasia 2+, Anisocytosis 3+, Target Cells 1+, Sodium Level 141, Potassium Level 4.0, Chloride Level 106, Carbon Dioxide Level 28, Anion Gap 7, Blood Urea Nitrogen 4L, Creatinine 0.5L, Estimat Glomerular Filtration Rate > 60, Glucose Level 105, Calcium Level 8.7, Total Bilirubin 0.6 , Aspartate Amino Transf (AST/SGOT) 53H, Alanine Aminotransferase (ALT/SGPT) 153H, Alkaline Phosphatase 90, Total Protein 7.0, Albumin 3.1L, Globulin 3.9, Albumin/Globulin Ratio 0.8L Height (Feet): 5 Height (Inches): 6.00 Weight (Pounds): 252 Objective PE: Vital Signs: reviewed Head: normocephalic Eyes: bilateral eye PERRL, bilateral eye conjunctivae pale ENT: moist mucus membranes Neck: supple Respiratory: lungs clear, normal breath sounds Cardiovascular: 2+ radial (R), regular rate, rhythm GI: normal inspection, normal bowel sounds, non tender, no mass, non-distended Musculoskeletal: back normal, gait/station normal, normal rom Neurologic: alert, oriented x3, 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 Psychiatric: depressed affect Skin: pallor Lewis Olmedo MD Jul 30, 2018 20:09
[2018-07-31] VITALS: BP 122/68
[2018-07-31 04:00] VITALS: BP 120/70
[2018-07-31] MEDS: oxyCONTIN 10mg tab ORAL SCH ×2 (05:41→14:15)
[2018-07-31] MEDS: metroNIDAZOLE 500mg tab ORAL SCH ×2 (05:41→14:15)
[2018-07-31 06:31] LABS: ANION GAP 6 mmol/L (5-15); BLOOD UREA NITROGEN 2 mg/dL (7-18); CALCIUM 8.6 MG/DL (8.5-10.1); CARBON DIOXIDE 29 MMOL/L (21-32); CHLORIDE 105 MMOL/L (98-107); CREATININE 0.5 MG/DL (0.55-1.30); POTASSIUM 3.7 MMOL/L (3.5-5.1); SODIUM 140 MMOL/L (136-145)
[2018-07-31 06:38] LABS: BASOPHILS % (AUTO) 0.9 % (0.0-2.0); EOSINOPHILS % (AUTO) 2.5 % (0.0-3.0); HEMATOCRIT 26.6 % (42.0-52.0); HEMOGLOBIN 8.6 G/DL (14.2-18.0); LYMPHOCYTES % (AUTO) 47.2 % (20.0-45.0); MEAN CORPUSCULAR VOLUME 96 FL (80-99); MONOCYTES % (AUTO) 4.6 % (1.0-10.0); NEUTROPHILS % (AUTO) 44.8 % (45.0-75.0); PLATELET COUNT 401 K/UL (150-450); RED BLOOD COUNT 2.77 M/UL (4.70-6.10); WHITE BLOOD COUNT 8.7 K/UL (4.8-10.8)
[2018-07-31 08:00] VITALS: BP 106/64
--- NOTE | 2018-07-31 08:34 | General Progress Note ---
Assessment/Plan Problem List: (1) Asthma ICD Codes: J45.909 - Unspecified asthma, uncomplicated SNOMED: 324028108 (2) Sickle cell disease ICD Codes: D57.1 - Sickle-cell disease without crisis SNOMED: 147260632 (3) Knee pain, bilateral ICD Codes: M25.561 - Pain in right knee; M25.562 - Pain in left knee SNOMED: 33545423 (4) Sickle cell crisis ICD Codes: D57.00 - Hb-SS disease with crisis, unspecified SNOMED: 273282730 (5) Anemia ICD Codes: D64.9 - Anemia, unspecified SNOMED: 728644100 Status: stable, progressing Assessment/Plan o2nc picc line id eval pain control ivf heme f/u transfuse prn cbc bmp am abx per id dc if clear Subjective Constitutional: Reports: weakness Allergies: Coded Allergies: CEFTRIAXONE (Verified Allergy, Unknown, 04/20/16) Uncoded Allergies: CONTRAST (Adverse Reaction, Severe, Rash, 06/23/16) RADIOCONTRAST - RASH, ITCHING All Systems: reviewed and negative except above Subjective o2nc leg pain 5/10 Objective Last 24 Hour Vital Signs Date Time Temp Pulse Resp B/P (MAP) Pulse Ox O2 Delivery O2 Flow Rate FiO2 07/31/18 07:48 Room Air 07/31/18 04:00 98.0 84 17 120/70 (87) 98 07/31/18 00:00 98.1 62 17 122/68 (86) 98 07/30/18 21:00 Room Air 07/30/18 20:00 98.0 70 18 131/61 (84) 97 07/30/18 16:00 98.1 76 18 154/77 (102) 97 07/30/18 12:00 98.2 74 18 126/67 (86) 100 07/30/18 09:00 Nasal Cannula 2.0 07/30/18 09:00 Room Air Intake and Output 07/30/18 07/31/18 19:00 07:00 Intake Total 965 ml 1740 ml Balance 965 ml 1740 ml Intake Oral 840 ml 240 ml IV Total 125 ml 1500 ml # Voids 3 1 Laboratory Tests 07/31/18 05:50: White Blood Count 8.7, Red Blood Count 2.77L, Hemoglobin 8.6L, Hematocrit 26.6L , Mean Corpuscular Volume 96, Mean Corpuscular Hemoglobin 31.0, Mean Corpuscular Hemoglobin Concent 32.4, Red Cell Distribution Width 18.0H, Platelet Count 401, Mean Platelet Volume 6.2L, Neutrophils (%) (Auto) 44.8L, Lymphocytes (%) (Auto) 47.2H, Monocytes (%) (Auto) 4.6, Eosinophils (%) (Auto) 2.5, Basophils (%) (Auto) 0.9, Sodium Level 140, Potassium Level 3.7, Chloride Level 105, Carbon Dioxide Level 29, Anion Gap 6, Blood Urea Nitrogen 2L, Creatinine 0.5L, Estimat Glomerular Filtration Rate > 60, Glucose Level 110H, Calcium Level 8.6 Height (Feet): 5 Height (Inches): 6.00 Weight (Pounds): 252 General Appearance: alert EENT: normal ENT inspection Neck: normal alignment Cardiovascular: normal peripheral pulses, normal rate, regular rhythm Respiratory/Chest: chest wall non-tender, lungs clear, normal breath sounds Abdomen: normal bowel sounds, non tender, soft Extremities: normal inspection Edema: no edema noted Arm (L), no edema noted Arm (R), no edema noted Leg (L), no edema noted Leg (R), no edema noted Pedal (L), no edema noted Pedal (R), no edema noted Generalized Neurologic: responsive, motor weakness Skin: normal pigmentation, warm/dry Bubba Wesley DO Jul 31, 2018 08:34
[2018-07-31] MEDS: Hydroxyurea 500mg cap ORAL SCH (08:35)
[2018-07-31] MEDS: Levofloxacin 500mg tab ORAL SCH (08:36)
[2018-07-31] MEDS: Heparin 5000 units/ml inj SUBQ SCH (08:41)
[2018-07-31 12:00] VITALS: BP 128/76
--- NOTE | 2018-07-31 12:03 | Infectious Diseases Prog Note ---
Assessment/Plan Assessment/Plan Abx: None Assessment: Sickle cell crisis Low grade fever , recurrent, improving Leukocytosis,recurrent- of note, patients yesterday CBC was reported to 24 then corrected to 9, this is due that immature (nucleated) RBCs were being count as WBC; today again WBC 20- lab will manually review WBC Abd pain/nv/d- r/o intrabdominal process, r/o Cdiff -KUB: Nonobstructive, nonspecific bowel gas pattern. Osseous deformity in the left humerus head, which may suggest cam-type femoral acetabular impingement. -Abd US: Mildly enlarged liver, with a diameter of 19.5 cm. Otherwise no acute findings. 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 Will continue to follow along with you. Subjective Allergies: Coded Allergies: CEFTRIAXONE (Verified Allergy, Unknown, 04/20/16) Uncoded Allergies: CONTRAST (Adverse Reaction, Severe, Rash, 06/23/16) RADIOCONTRAST - RASH, ITCHING Subjective afebrile in ~72hrs no leukocytosis Bcx NTD Objective Vital Signs Last 24 Hour Vital Signs Date Time Temp Pulse Resp B/P (MAP) Pulse Ox O2 Delivery O2 Flow Rate FiO2 07/31/18 07:48 Room Air 07/31/18 04:00 98.0 84 17 120/70 (87) 98 07/31/18 00:00 98.1 62 17 122/68 (86) 98 07/30/18 21:00 Room Air 07/30/18 20:00 98.0 70 18 131/61 (84) 97 07/30/18 16:00 98.1 76 18 154/77 (102) 97 07/30/18 12:00 98.2 74 18 126/67 (86) 100 Height (Feet): 5 Height (Inches): 6.00 Weight (Pounds): 252 Objective General Appearance: well appearing, no apparent distress HEENT: normocephalic, atraumatic bilateral eye PERRL, bilateral eye EOMI, normal pharynx Neck: full range of motion, supple, no meningismus, no bony tend Respiratory: lungs clear, normal breath sounds, no rhonchi, no respiratory distress, no retraction, no accessory muscle use Cardiovascular: normal peripheral pulses, regular rate, rhythm, no edema, no gallop, no JVD, no murmur Gastrointestinal: normal bowel sounds, non tender, soft, no mass, no organomegaly, non-distended, no guarding, no hernia, no pulsatile mass, no rebound Genitourinary: no CVA tenderness Musculoskeletal: normal inspection 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, responsive, chinese herbalist III-XII nml as tested, motor strength/ tone normal, sensory intact Skin: normal color, no rash, warm/dry, palpation normal Lymphatic: normal inspection, no adenopathy Laboratory Tests Test 07/31/18 05:50 White Blood Count 8.7 K/UL (4.8-10.8) Red Blood Count 2.77 M/UL (4.70-6.10) L Hemoglobin 8.6 G/DL (14.2-18.0) L Hematocrit 26.6 % (42.0-52.0) L Mean Corpuscular Volume 96 FL (80-99) Mean Corpuscular Hemoglobin 31.0 PG (27.0-31.0) Mean Corpuscular Hemoglobin Concent 32.4 G/DL (32.0-36.0) Red Cell Distribution Width 18.0 % (11.6-14.8) H Platelet Count 401 K/UL (150-450) Mean Platelet Volume 6.2 FL (6.5-10.1) L Neutrophils (%) (Auto) 44.8 % (45.0-75.0) L Lymphocytes (%) (Auto) 47.2 % (20.0-45.0) H Monocytes (%) (Auto) 4.6 % (1.0-10.0) Eosinophils (%) (Auto) 2.5 % (0.0-3.0) Basophils (%) (Auto) 0.9 % (0.0-2.0) Sodium Level 140 MMOL/L (136-145) Potassium Level 3.7 MMOL/L (3.5-5.1) Chloride Level 105 MMOL/L (98-107) Carbon Dioxide Level 29 MMOL/L (21-32) Anion Gap 6 mmol/L (5-15) Blood Urea Nitrogen 2 mg/dL (7-18) L Creatinine 0.5 MG/DL (0.55-1.30) L Estimat Glomerular Filtration Rate > 60 mL/min (>60) Glucose Level 110 MG/DL (74-106) H Calcium Level 8.6 MG/DL (8.5-10.1) Current Medications Medications (Trade) Dose Ordered Sig/Arianne Route PRN Reason Start Time Stop Time Status Last Admin Dose Admin Acetaminophen (Tylenol) 650 mg Q4H PRN ORAL fever (Temp>100.5F) 07/20/18 20:45 08/19/18 20:44 Al Hydroxide/Mg Hydroxide (Mylanta II) 30 ml Q6H PRN ORAL dyspepsia 07/20/18 20:40 08/18/18 20:39 07/22/18 22:29 Chlorhexidine Gluconate (Jihan-Hex 2%) 1 applic DAILY@2000 TOPIC 07/24/18 20:00 08/23/18 19:59 07/30/18 20:00 Dextrose (Dextrose 50%) 50 ml Q30M PRN IV Hypoglycemia 07/20/18 20:30 08/18/18 15:59 Dextrose (Dextrose 50%) 50 ml Q30M PRN IV Hypoglycemia 07/20/18 20:45 08/18/18 16:14 Heparin Sodium (Porcine) (Heparin 5000 units/ml) 5,000 units EVERY 12 HOURS SUBQ 07/20/18 21:00 08/18/18 20:59 07/31/18 08:41 Hydromorphone HCl (Dilaudid) 2 mg Q3H PRN IVP For Pain 07/27/18 23:30 08/03/18 23:29 07/31/18 11:52 Hydroxyurea (Hydrea) 3,000 mg DAILY ORAL 07/29/18 12:00 08/03/18 11:59 07/31/18 08:35 Levofloxacin (Levaquin) 500 mg DAILY ORAL 07/27/18 09:00 08/03/18 08:59 07/31/18 08:36 Metronidazole (Flagyl) 500 mg Q8HR ORAL 07/28/18 22:00 08/04/18 21:59 07/31/18 05:41 Ondansetron HCl (Zofran) 4 mg Q4H PRN IVP Nausea & Vomiting 07/21/18 14:45 08/20/18 14:44 07/31/18 06:01 Oxycodone HCl (OxyCONTIN) 30 mg Q8HR ORAL 07/28/18 14:00 08/04/18 13:59 07/31/18 05:41 Polyethylene Glycol (Miralax) 17 gm HSPRN PRN ORAL Constipation 07/20/18 20:40 08/19/18 20:39 Sodium Chloride 1,000 ml @ 125 mls/hr Q8H IV 07/22/18 16:15 08/21/18 16:14 07/31/18 08:35 Anjana Bang M.D. Jul 31, 2018 12:03
--- NOTE | 2018-07-31 13:02 | General Progress Note ---
Assessment/Plan Assessment/Plan 1. 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 --> Presented in sickle crisis. on hydrea, opioids --> retic daily which has been ordered --> cbc has been reviewed --> continue hydrea 3500mg po daily --> continue indiral powder adjunct medication --> appreciate pain management recs --> on ns as per pcp and better 2. Anemia, secondary to sickle cell disease/B thalassemia --> hgb goal >7, transfuse prn. --> Blood tx: 07/24 3. Leukocytosis, secondary to reactive process, potentially sepsis as well as on antibiotics. --> Monitor and trend wbc for improvement --> cultures are negative --> ON ABX as per ID, appreciate recs 4. Thrombocytosis, potentially secondary to reactive process. --> Improved/Resolved 5. Acute chest does have evidence of pna --> s/p antibiotics 6. Hyperbilirubinemia, potentially secondary to minor hemolysis. --> retic elevated 7. Reticulocytosis consisting with sickle cell crisis. 8. Left shoulder pain. Appreciate consultation. Subjective HEENT: Denies: no symptoms, eye pain, blurred vision, tearing, double vision, ear pain, ear discharge, nose pain, nose congestion, throat pain, throat swelling, mouth pain, mouth swelling, other Cardiovascular: Denies: no symptoms, chest pain, edema, irregular heart rate, lightheadedness, palpitations, syncope, other Respiratory: Denies: no symptoms, cough, orthopnea, shortness of breath, SOB with excertion, SOB at rest, sputum, stridor, wheezing, other Gastrointestinal/Abdominal: Denies: no symptoms, abdomen distended, abdominal pain, black stools, tarry stools, blood in stool, constipated, diarrhea, difficulty swallowing, nausea, poor appetite, poor fluid intake, rectal bleeding , vomiting, other Genitourinary: Denies: no symptoms, burning, discharge, frequency, flank pain, hematuria, incontinence, pain, urgency, other Neurologic/Psychiatric: Denies: no symptoms, anxiety, depressed, emotional problems, headache, numbness, paresthesia, pre-existing deficit, seizure, tingling, tremors, weakness, other Endocrine: Denies: no symptoms, excessive sweating, flushing, intolerance to cold, intolerance to heat, increased hunger, increased thirst, increased urine, unexplained weight gain, unexplained weight loss, other Hematologic/Lymphatic: Denies: no symptoms, anemia, easy bleeding, easy bruising, other Allergies: Coded Allergies: CEFTRIAXONE (Verified Allergy, Unknown, 04/20/16) Uncoded Allergies: CONTRAST (Adverse Reaction, Severe, Rash, 06/23/16) RADIOCONTRAST - RASH, ITCHING Subjective Pt awake and alert. No acute events. less pain today, some diarrhea 07/31: some diarrhea, sent off c.diff Objective Last 24 Hour Vital Signs Date Time Temp Pulse Resp B/P (MAP) Pulse Ox O2 Delivery O2 Flow Rate FiO2 07/31/18 07:48 Room Air 07/31/18 04:00 98.0 84 17 120/70 (87) 98 07/31/18 00:00 98.1 62 17 122/68 (86) 98 07/30/18 21:00 Room Air 07/30/18 20:00 98.0 70 18 131/61 (84) 97 07/30/18 16:00 98.1 76 18 154/77 (102) 97 Intake and Output 07/30/18 07/31/18 18:59 06:59 Intake Total 840 ml 1865 ml Balance 840 ml 1865 ml Intake Oral 840 ml 240 ml IV Total 1625 ml # Voids 3 1 Laboratory Tests 07/31/18 05:50: White Blood Count 8.7, Red Blood Count 2.77L, Hemoglobin 8.6L, Hematocrit 26.6L , Mean Corpuscular Volume 96, Mean Corpuscular Hemoglobin 31.0, Mean Corpuscular Hemoglobin Concent 32.4, Red Cell Distribution Width 18.0H, Platelet Count 401, Mean Platelet Volume 6.2L, Neutrophils (%) (Auto) 44.8L, Lymphocytes (%) (Auto) 47.2H, Monocytes (%) (Auto) 4.6, Eosinophils (%) (Auto) 2.5, Basophils (%) (Auto) 0.9, Sodium Level 140, Potassium Level 3.7, Chloride Level 105, Carbon Dioxide Level 29, Anion Gap 6, Blood Urea Nitrogen 2L, Creatinine 0.5L, Estimat Glomerular Filtration Rate > 60, Glucose Level 110H, Calcium Level 8.6 Height (Feet): 5 Height (Inches): 6.00 Weight (Pounds): 252 Neck: supple Cardiovascular: regular rhythm Respiratory/Chest: normal breath sounds Abdomen: no organomegaly Extremities: non-tender Edema: 1+ Leg (L), 1+ Leg (R) Edema: mild edema Neurologic: alert Objective PE: Vital Signs: reviewed Head: normocephalic Eyes: bilateral eye PERRL, bilateral eye conjunctivae pale ENT: moist mucus membranes Neck: supple Respiratory: lungs clear, normal breath sounds Cardiovascular: 2+ radial (R), regular rate, rhythm GI: normal inspection, normal bowel sounds, non tender, no mass, non-distended Musculoskeletal: back normal, gait/station normal, normal rom Neurologic: alert, oriented x3, 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 Psychiatric: depressed affect Skin: pallor Lewis Olmedo MD Jul 31, 2018 13:02
--- NOTE | 2018-07-31 14:37 | Cardiology Report ---
APPROVED REPORT EKG Measurement Heart [id number] OR [id number] [id number] Sinus bradycardia with short OR Otherwise normal ECG
[2018-07-31 16:00] VITALS: BP 133/65
[2018-07-31 20:05] VITALS: BP 167/87
--- NOTE | 2018-08-02 10:01 | Discharge Summary ---
Discharge Summary Discharge Summary _ DATE OF ADMISSION: 07/19/2018 DATE OF DISCHARGE: 07/31/2018 DISCHARGED BY: Dr. Wesley REASON FOR ADMISSION: 22 years old male with past medical history of sickle cell disease, status post splenectomy, left hip avascular necrosis, asthma, presented to emergency department with generalized body aches and fever . Patient reported bilateral leg and knee pain and upper shoulder pain. Patient reported being hydrated by his primary physician on the prior day. He denied chest pain or shortness of breath. He denied vomiting. Pain described as diffused, 8 out of 10 on a scale of 1-10. Upon evaluation patient was febrile. Pulse oximetry was stable on room air. Laboratory workup revealed no leukocytosis , hemoglobin 9.4 hematocrit 28.7. Reticulocyte count 4.9. Stable electrolytes and renal parameters. AST 66 , ALT 133. Alkaline phosphatase 125. Albumin 4.3. Chest x-ray revealed no acute cardiopulmonary pathology. Patient admitted with sickle cell crisis, possible sepsis. CONSULTANTS: pulmonary Dr. Caicedo ID specialist Dr. Duke boss miner/oncologist Dr. Olmedo pain specialist Dr. Tucker HOSPITAL COURSE: Patient admitted with sickle cell crisis to medical surgical floor. Patient started on generous IV hydration and empiric antibiotic. Supplemental oxygen provided as needed to keep pulse oximetry above 92%. Pain management was addressed as per pain specialist recommendations . The next day patient had leukocytosis , which was progressively increased to highest being 29.7 on day #2. Infectious disease specialist closely followed. Repeated chest x-ray revealed bilateral perihilar congestion / infiltrates, unchanged from 07/19/2018. Blood cultures were negative. Urine cultures was negative. Influenza screen test was negative. Stool for C. difficile was negative. Abdominal x-ray revealed nonobstructive nonspecific bowel gas pattern. Abdominal ultrasound revealed mildly enlarged liver, otherwise no acute findings. Per ID specialist, patient probably had pneumonia. Patient exhibited intermittent fevers, leukocytosis was trending down. Patient undergone empiric treatment with Levaquin for probable pneumonia and Flagyl was provided for abdominal coverage. Leukocytosis and intermittent fevers resolved . Director Payment closely followed. Patient presented in sickle cell crisis . Patient was on Hydrea. Reticulocyte and LDH were monitored. Patient was hydrated. Patient had anemia secondary to sickle cell disease/beta thalassemia. 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 Hemoglobin and hematocrit were closely monitored with goal to keep hemoglobin above 7. Patient received transfusion of 2 units of packed red blood cells. Prior to discharge hemoglobin 8.6 , hematocrit 26. 6. Hyperbilirubinemia was potentially secondary to minor hemolysis. Reticulocytosis was consistent with sickle cell crisis. Leukocytosis and fevers resolved. Pain controlled. Patient was stable for discharge home with outpatient follow-up with a primary care provider/boss miner. P FINAL DIAGNOSES: Sickle cell crisis Sickle cell disease/thalassemia beta Leukocytosis Probable pneumonia Possible sepsis Anemia secondary to sickle cell disease/beta thalassemia Hyperbilirubinemia Lateral knee pain. DISCHARGE MEDICATIONS: See Medication Reconciliation list. DISCHARGE INSTRUCTIONS: Patient was discharged home . Follow up with primary care provider in one week. I have been assigned to dictate discharge summary for this account. I was not involved in the patient's management. Giovanna Montalvo NP Aug 02, 2018 10:01
== END 2018-07-31 21:49 | disposition home or self-care (01) | DRG 720 ==
LOC: EMR 12:56 → 3E 14:38 → UNDOADMIN 14:38 → EDBEDREQ 15:12 → 2E 16:19 → 3E 07-20 20:17
PROC: 30233N1 Transfusion of Nonautologous Red Blood Cells into Peripheral Vein, Percutaneous Approach (ICD-10-PCS; principal; 2018-07-24)
PROC: 02HV33Z Insertion of Infusion Device into Superior Vena Cava, Percutaneous Approach (ICD-10-PCS; 2018-07-24)
DX: A41.9 Sepsis, unspecified organism (principal); D57.00 Hb-SS disease with crisis, unspecified; D57.419 Sickle-cell thalassemia, unspecified, with crisis; J18.9 Pneumonia, unspecified organism; R09.02 Hypoxemia; J45.909 Unspecified asthma, uncomplicated; E80.6 Other disorders of bilirubin metabolism; M25.562 Pain in left knee; M25.561 Pain in right knee; Z90.81 Acquired absence of spleen; Z88.8 Allergy status to other drugs, medicaments and biological substances; Z91.041 Radiographic dye allergy status; M87.812 Other osteonecrosis, left shoulder; D47.3 Essential (hemorrhagic) thrombocythemia; M87.822 Other osteonecrosis, left humerus
CPT/HCPCS: 36415; 36569; 71045; 74018; 76700; 76937; 80048; 80053; 82550; 82553; 83615; 83690; 83735; 84100; 85007; 85025; 85044; 85651; 86710; 86850; 86900; 86901; 86920; 87040; 87086; 87324; 93005; 96361; 96372; 96374; 99285; J2405

== ENCOUNTER 2018-09-21 15:19 | Inpatient (IN) | payer MEDICAID ==
[~2018-09-21] VITALS: Ht 167.6 cm; Wt 115.2 kg
--- NOTE | 2018-09-21 15:32 | NUR ---
ED Nurse Note: Pt came in from home due to sickle cell pain 04/17 and fever x 2 days, oral temp 99.5F upon arrival. Pt went to PCP this morning and received Morphine with IV fluid for hydration but still having pain. AOx4, VSS. Will cont to monitor.
--- NOTE | 2018-09-21 15:43 | Emergency Room Report ---
History of Present Illness General Chief Complaint: Generalized Weakness Source: Patient Present Illness HPI Patient presents with 2 days of increased body pain. This feels like sickle crisis to him. He also noted a fever 100.4 yesterday. He did try taking pain medication at home however the pain is significant. He denies sore throat, runny nose, productive cough, nausea, vomiting, diarrhea, dysuria. He does complain about right knee pain. He denies history of gout. Pain is rated 9/10 and generalized. The patient has sickle cell anemia. He also has a Port-A-Cath on the right- hand side. No palpitations, nausea, vomiting, diarrhea, dysuria, abdominal pain, shortness of breath, depression, visual changes, headache. No rashes. 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 Allergies: Coded Allergies: CAPSAICIN (Verified Allergy, Unknown, 09/21/18) CEFTRIAXONE (Verified Allergy, Unknown, 04/20/16) Uncoded Allergies: CONTRAST (Adverse Reaction, Severe, Rash, 06/23/16) RADIOCONTRAST - RASH, ITCHING Patient History Past Medical History: see triage record Past Surgical History: other - Port-A-Cath Social History: Denies: smoking, alcohol use, drug use Social History Narrative at home Reviewed Nursing Documentation: PMH: Agreed; PSxH: Agreed Nursing Documentation-PM Past Medical History: No History, Except For Hx Cardiac Problems: Yes - sickle cell Hx Hypertension: No - Port-A-Cath Hx Pacemaker: No Hx Asthma: Yes Hx COPD: No Hx Diabetes: No Hx Cancer: No Hx Gastrointestinal Problems: No Hx Dialysis: No History Of Psychiatric Problem: No Hx Neurological Problems: No Hx Cerebrovascular Accident: No Hx Seizures: No Review of Systems All Other Systems: negative except mentioned in HPI Physical Exam Vital Signs Date Time Temp Pulse Resp B/P (MAP) Pulse Ox O2 Delivery O2 Flow Rate FiO2 09/21/18 15:24 99.5 93 16 120/66 95 Room Air Sp02 EP Interpretation: reviewed, normal General Appearance: well appearing, no apparent distress, GCS 15 Head: normocephalic Eyes: bilateral eye PERRL, bilateral eye conjunctivae pale ENT: moist mucus membranes Neck: supple Respiratory: lungs clear, normal breath sounds, other - Vascular axis right chest Cardiovascular #1: regular rate, rhythm Cardiovascular #2: 2+ radial (R) Gastrointestinal: normal inspection, normal bowel sounds, non tender, no mass, non-distended Genitourinary: no CVA tenderness Musculoskeletal: no calf tenderness, decreased range of motion - Right knee with ligament stable no effusion or warmth, tender - Right knee without warmth and also good range of motion Neurologic: alert, oriented x3, 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 Psychiatric: depressed affect Skin: warm/dry, pallor Medical Decision Making Diagnostic Impression: Primary Impression: Sickle cell crisis Additional Impressions: Leukocytosis Qualified Codes: D72.828 - Other elevated white blood cell count Right knee pain Qualified Codes: M25.561 - Pain in right knee ER Course Patient presents with exacerbation of sickle cell and fever. Differential includes pneumonia, viral syndrome, other occult infection, sickle cell crisis amongst others. Patient will be evaluated with EKG, chest x-ray and labs. Patient will receive IV hydration and analgesia. Due to the fact he's got a Port-A-Cath one set of blood cultures will be obtained from his Port-A-Cath. EKG without injury. Chest x-ray no infiltrate. Labs with leukocytosis and anemia. Reticulocyte count 5. Initial lactic acid 2.2. LDH normal. Patient improved with analgesia however second dose is given because still significant pain. Although the patient has leukocytosis there is no identified source of infection at this time. One set of blood cultures was taken from the Port-A- Cath. The patient is admitted to the hospital for further observation and treatment under the care of Dr. Wesley. Laboratory Tests Test 09/21/18 15:50 09/21/18 16:40 09/21/18 17:20 09/22/18 06:00 White Blood Count 20.7 K/UL (4.8-10.8) H Corrected White Blood Count 10.4 K/UL Red Blood Count 2.91 M/UL (4.70-6.10) L Hemoglobin 8.9 G/DL (14.2-18.0) L Hematocrit 27.3 % (42.0-52.0) L Mean Corpuscular Volume 94 FL (80-99) Mean Corpuscular Hemoglobin 30.5 PG (27.0-31.0) Mean Corpuscular Hemoglobin Concent 32.4 G/DL (32.0-36.0) Red Cell Distribution Width 16.4 % (11.6-14.8) H Platelet Count 590 K/UL (150-450) H Mean Platelet Volume 6.2 FL (6.5-10.1) L Neutrophils (%) (Auto) % (45.0-75.0) Lymphocytes (%) (Auto) % (20.0-45.0) Monocytes (%) (Auto) % (1.0-10.0) Eosinophils (%) (Auto) % (0.0-3.0) Basophils (%) (Auto) % (0.0-2.0) Differential Total Cells Counted 100 Neutrophils % (Manual) 65 % (45-75) Lymphocytes % (Manual) 33 % (20-45) Monocytes % (Manual) 2 % (1-10) Eosinophils % (Manual) 0 % (0-3) Basophils % (Manual) 0 % (0-2) Band Neutrophils 0 % (0-8) Nucleated Red Blood Cells 99 /100 WBC Platelet Estimate Increased H Platelet Morphology Normal Polychromasia 2+ Hypochromasia 1+ Poikilocytosis 1+ Basophilic Stippling 1+ Anisocytosis 3+ Macrocytosis 1+ Target Cells 2+ Reticulocyte Count 5.0 % (0.0-2.0) H Prothrombin Time 11.5 SEC (9.30-11.50) 11.5 SEC (9.30-11.50) Prothrombin Time INR 1.1 (0.9-1.1) 1.1 (0.9-1.1) PTT 33 SEC (23-33) Sodium Level 139 MMOL/L (136-145) 140 MMOL/L (136-145) Potassium Level 3.8 MMOL/L (3.5-5.1) 4.0 MMOL/L (3.5-5.1) Chloride Level 100 MMOL/L (98-107) 105 MMOL/L (98-107) Carbon Dioxide Level 27 MMOL/L (21-32) 27 MMOL/L (21-32) Anion Gap 12 mmol/L (5-15) 8 mmol/L (5-15) Blood Urea Nitrogen 5 mg/dL (7-18) L 8 mg/dL (7-18) Creatinine 0.7 MG/DL (0.55-1.30) 0.6 MG/DL (0.55-1.30) Estimate Glomerular Filtration Rate > 60 mL/min (>60) > 60 mL/min (>60) Glucose Level 151 MG/DL (74-106) H 104 MG/DL (74-106) Lactic Acid Level 2.20 mmol/L (0.4-2.0) H 1.10 mmol/L (0.66-2.22) Uric Acid 4.8 MG/DL (2.6-7.2) Calcium Level 8.9 MG/DL (8.5-10.1) 9.0 MG/DL (8.5-10.1) Magnesium Level 2.0 MG/DL (1.8-2.4) Total Bilirubin 0.5 MG/DL (0.2-1.0) Aspartate Amino Transferase (AST) 34 U/L (15-37) Alanine Aminotransferase (ALT) 89 U/L (12-78) H Alkaline Phosphatase 121 U/L (46-116) H Lactate Dehydrogenase 196 U/L (81-234) Total Creatine Kinase 29 U/L (26-308) Creatine Kinase MB < 0.5 NG/ML (0.0-3.6) Creatine Kinase MB Relative Index 1.7 Troponin I 0.000 ng/mL (0.000-0.056) Pro-B-Type Natriuretic Peptide 30 pg/mL (0-125) Total Protein 8.8 G/DL (6.4-8.2) H Albumin 3.9 G/DL (3.4-5.0) Globulin 4.9 g/dL Albumin/Globulin Ratio 0.8 (1.0-2.7) L Lipase 49 U/L (73-393) L Urine Color Pale yellow Urine Appearance Clear Urine pH 6.5 (4.5-8.0) Urine Specific [place] 1.010 (1.005-1.035) Urine Protein Negative (NEGATIVE) Urine Glucose (UA) Negative (NEGATIVE) Urine Ketones Negative (NEGATIVE) Urine Blood Negative (NEGATIVE) Urine Nitrite Negative (NEGATIVE) Urine Bilirubin Negative (NEGATIVE) Urine Urobilinogen Normal MG/DL (0.0-1.0) Urine Leukocyte Esterase Negative (NEGATIVE) Test 09/22/18 11:40 White Blood Count 6.9 K/UL (4.8-10.8) # Red Blood Count 2.55 M/UL (4.70-6.10) L Hemoglobin 8.1 G/DL (14.2-18.0) L Hematocrit 23.6 % (42.0-52.0) L Mean Corpuscular Volume 93 FL (80-99) Mean Corpuscular Hemoglobin 31.7 PG (27.0-31.0) H Mean Corpuscular Hemoglobin Concent 34.2 G/DL (32.0-36.0) Red Cell Distribution Width 17.3 % (11.6-14.8) H Platelet Count 525 K/UL (150-450) H Mean Platelet Volume 6.4 FL (6.5-10.1) L Neutrophils (%) (Auto) % (45.0-75.0) Lymphocytes (%) (Auto) % (20.0-45.0) Monocytes (%) (Auto) % (1.0-10.0) Eosinophils (%) (Auto) % (0.0-3.0) Basophils (%) (Auto) % (0.0-2.0) Neutrophils % (Manual) Pending Lymphocytes % (Manual) Pending Platelet Estimate Pending Platelet Morphology Pending Microbiology Date/Time Source Procedure Growth Status 09/21/18 15:50 Nasal Nares Influenza Types A,B Antigen (CHAR) - Final Complete EKG Diagnostic Results Rate: normal Rhythm: NSR ST Segments: no acute changes - Sinus arrhythmia Rhythm Strip Diag. Results EP Interpretation: yes Rhythm: NSR, no PVC's, no ectopy Chest X-Ray Diagnostic Results Chest X-Ray Diagnostic Results : Chest X-Ray Ordered: Yes # of Views/Limited/Complete: 1 View Indication: Other EP Interpretation: Yes Interpretation: no consolidation, no effusion, no pneumothorax, other - portacath, poor inspiration Impression: Other Electronically Signed by: Electronically signed by Yasmany Gonzalez MD Last Vital Signs Date Time Temp Pulse Resp B/P (MAP) Pulse Ox O2 Delivery O2 Flow Rate FiO2 09/21/18 15:32 93 16 Room Air 09/21/18 15:24 99.5 120/66 95 Status: improved Disposition: ADMITTED INPATIENT Condition: Serious Yasmany Gonzalez MD Sep 21, 2018 15:43
[2018-09-21] MEDS ORDERED: Ketorolac 30mg Inj IV ONE (15:45)
[2018-09-21] MEDS ORDERED: HYDROmorphone 1mg/ml Carpuject IVP ONE ×2 (15:45→17:45)
[2018-09-21] MEDS ORDERED: DiphenhydrAMINE 50mg/ml Inj IVP ONE ×2 (15:45→17:45)
--- NOTE | 2018-09-21 15:45 | NUR ---
ED Nurse Note: Blood collected and sent to lab.
[2018-09-21 16:14] LABS: HEMATOCRIT 27.3 % (42.0-52.0); HEMOGLOBIN 8.9 G/DL (14.2-18.0); MEAN CORPUSCULAR VOLUME 94 FL (80-99); PLATELET COUNT 590 K/UL (150-450); RED BLOOD COUNT 2.91 M/UL (4.70-6.10); RED CELL DISTRIBUTION WIDTH 16.4 % (11.6-14.8); WHITE BLOOD COUNT 20.7 K/UL (4.8-10.8)
[2018-09-21 16:25] LABS: ANION GAP 12 mmol/L (5-15); BLOOD UREA NITROGEN 5 mg/dL (7-18); CALCIUM 8.9 MG/DL (8.5-10.1); CARBON DIOXIDE 27 MMOL/L (21-32); CHLORIDE 100 MMOL/L (98-107); CREATININE 0.7 MG/DL (0.55-1.30); INR 1.1 (0.9-1.1); POTASSIUM 3.8 MMOL/L (3.5-5.1); SODIUM 139 MMOL/L (136-145)
[2018-09-21 16:38] LABS: ALANINE AMINOTRANSFERASE 89 U/L (12-78); ALBUMIN 3.9 G/DL (3.4-5.0); ALBUMIN/GLOBULIN RATIO 0.8 (1.0-2.7); ALKALINE PHOSPHATASE 121 U/L (46-116); ASPARTATE AMINO TRANSFERASE 34 U/L (15-37); BILIRUBIN,TOTAL 0.5 MG/DL (0.2-1.0); CKMB < 0.5 NG/ML (0.0-3.6); CREATINE KINASE 29 U/L (26-308); LACTATE DEHYDROGENASE 196 U/L (81-234)
[2018-09-21 17:02] LABS: APPEARANCE,URINE CLEAR; BILIRUBIN, URINE NEGATIVE (NEGATIVE); COLOR,URINE PALE YELLOW; GLUCOSE, URINE (UA) NEGATIVE (NEGATIVE); KETONES,URINE NEGATIVE (NEGATIVE); LEUKOCYTE ESTERASE ,URINE NEGATIVE (NEGATIVE); NITRITE,URINE NEGATIVE (NEGATIVE); PH,URINE 6.5 (4.5-8.0); PROTEIN,URINE NEGATIVE (NEGATIVE); UROBILINOGEN,URINE NORMAL MG/DL (0.0-1.0)
--- NOTE | 2018-09-21 17:28 | Diagnostic Imaging Report ---
Indication: Chest pain Technique: One view of the chest Comparison: 07/25/2018 Findings: Interim placement of right chest port catheter, tip projected at the level of the cavoatrial junction. Previously demonstrated left arm PICC is no longer evident. Inspiration is suboptimal, with crowding of bronchovascular markings, no riley infiltrates or effusions. The heart is mildly enlarged Impression: No acute process Port catheter in place
[2018-09-21 17:45] VITALS: BP 125/69
[2018-09-21] MEDS ORDERED: LORazepam 1mg tab ORAL PRN (17:45)
[2018-09-21] MEDS ORDERED: HYDROmorphone 1mg/ml Carpuject IVP PRN ×2 (17:45→20:26)
--- NOTE | 2018-09-21 17:50 | NUR ---
ED Nurse Note: Report given to EDU Infante at ext [phone]. Pt to be transfered to [facility] per protocol with all belongings.
[2018-09-21] MEDS ORDERED: 1/2NS w/KCl 20mEq 1000ml 1,000 ML IV ONE (19:00)
--- NOTE | 2018-09-21 19:10 | NUR ---
NURSE NOTES: Pt received sitting up in bed, uncomfortable due to pain. Bed in lowest position, side rails upx2, bed locked. Will continue to monitor and call physician due to increased pain levels and insufficient pain management
--- NOTE | 2018-09-21 19:54 | NUR ---
NURSE NOTES: Pt received from ER earlier in shift with his belongings. Able to verbalize known needs. Dr Wesley phoned for orders, stated the Dr Weiner would be covering. Oncoming nurse made aware. V/S temp 98.6 128/ 72, pulse 80, o2 sat 96. report given to Ely SORENSEN
--- NOTE | 2018-09-21 19:57 | NUR ---
HAND-OFF: Report given to Er report given to Ely SORENSEN.
[2018-09-21 20:00] VITALS: BP 141/83
[2018-09-21] MEDS: Docusate 100mg cap ORAL SCH (20:37)
--- NOTE | 2018-09-21 23:47 | NUR ---
dilaudid 8-16 mg q 3-4h, ER oxycontin 20 mg q 12 hours Addendum: 09/21/18 at 2355 by Riana Gutierres, RN Amended: Links added.
--- NOTE | 2018-09-21 23:50 | NUR ---
Hydroxyurea 3,500 mg per day folic acid 1 mg per day aspirin 81 mg per day er oxycontin 20 mg q 12 hours prn pain dilaudid 8-16 mg q 3-4 hours prn pain Addendum: 09/21/18 at 2355 by Riana Gutierres RN Amended: Links added. Addendum: 09/22/18 at 0108 by Riana Gutierres RN NURSE NOTE: HOME MEDS
[2018-09-22] VITALS: BP 149/72
[2018-09-22] MEDS: HYDROmorphone 1mg/ml Carpuject IVP PRN ×3 (00:20→06:31)
--- NOTE | 2018-09-22 01:00 | NUR ---
NURSE NOTES: RN called Dr Weiner to report temperature spiking at 100.9 F. Patient is reporting feeling shaky and uncomfortable. Cooling measures applied with cold washcloths to the forehead, axilla and removal of extra layers. Will continue to monitor.
[2018-09-22 04:00] VITALS: BP 141/77
--- NOTE | 2018-09-22 07:17 | NUR ---
HAND-OFF: Report given to EDU Jeffers.
--- NOTE | 2018-09-22 07:25 | NUR ---
NURSE NOTES: Pt received from EDU Lane and EDU [facility] alert and oriented x4 with no s/s of acute distress. Pt stated that he has 7/10 pain, RN stated to pt that his next scheduled pain med is not until 9:30 AM and pt stated that he is ok with waiting for now. IV site asymptomatic and patent. Bed in lowest position, call light and belongings within reach.
--- NOTE | 2018-09-22 07:50 | NUR ---
NURSE NOTES: Spoke with Dr. Olmedo regarding reconciliation of home meds. Per Dr. Olmedo, ok to continue home meds but to confirm dosage and frequency of Oxycodone with pt's pharmacy first. Will try to obtain necessary information and paperwork from patient.
[2018-09-22 07:52] LABS: ANION GAP 8 mmol/L (5-15); BLOOD UREA NITROGEN 8 mg/dL (7-18); CARBON DIOXIDE 27 MMOL/L (21-32); CHLORIDE 105 MMOL/L (98-107); CREATININE 0.6 MG/DL (0.55-1.30); SODIUM 140 MMOL/L (136-145)
[2018-09-22 08:00] VITALS: BP 147/65
--- NOTE | 2018-09-22 08:15 | NUR ---
NURSE NOTES: Clarified with Orlando VELAZCO if ok to continue Oxycontin 20 mg PO 1 tab q12 hrs scheduled with current pain meds of patient. Per Mendel VELAZCO, "please continue Oxycontin for patient."
[2018-09-22 08:24] LABS: INR 1.1 (0.9-1.1)
--- NOTE | 2018-09-22 09:07 | General Progress Note ---
Assessment/Plan Assessment/Plan (1) Sickle cell disease (2) Sickle cell crisis (3) Intractable pain Pt will be continued on Dilaudid increased to 2mg IV Q3H PRN D/w Dr. Tucker and he concurred. Subjective Date patient seen: Sep 22, 2018 Time patient seen: 08:10 - am Allergies: Coded Allergies: CAPSAICIN (Verified Allergy, Unknown, 09/21/18) CEFTRIAXONE (Verified Allergy, Unknown, 04/20/16) Uncoded Allergies: CONTRAST (Adverse Reaction, Severe, Rash, 06/23/16) RADIOCONTRAST - RASH, ITCHING Subjective Constitutional: Reports: chills, weakness HEENT: Reports: no symptoms Cardiovascular: Reports: no symptoms Respiratory: Reports: no symptoms Gastrointestinal/Abdominal: Reports: no symptoms Genitourinary: Reports: no symptoms Neurologic/Psychiatric: Reports: tingling, weakness Endocrine: Reports: no symptoms Hematologic/Lymphatic: Reports: no symptoms Subjective Patient is a known patient from prior admission and has been readmitted due to SS crisis. Started on Dilaudid 1mg IV Q3H PRN with minimal pain relief. We were consulted so patient would have adequate pain control while here in the hospital. Objective Last 24 Hour Vital Signs Date Time Temp Pulse Resp B/P (MAP) Pulse Ox O2 Delivery O2 Flow Rate FiO2 09/22/18 04:00 98.7 63 18 141/77 (98) 98 09/22/18 01:30 99.7 09/22/18 00:00 100.9 63 20 149/72 (97) 98 09/21/18 20:00 99.2 86 20 141/83 (102) 98 09/21/18 19:37 Room Air 09/21/18 19:30 Room Air 09/21/18 17:50 99.5 85 16 125/69 99 Room Air 09/21/18 17:45 99.5 85 16 125/69 99 Room Air 09/21/18 16:39 99.5 09/21/18 16:39 99.5 09/21/18 15:32 93 16 Room Air 09/21/18 15:24 99.5 93 16 120/66 95 Room Air Intake and Output 09/21/18 09/22/18 19:00 07:00 Intake Total 1000 ml 900 ml Output Total 1200 ml Balance 1000 ml -300 ml Intake IV Total 1000 ml 900 ml Output Urine Total 1200 ml # Voids 1 Laboratory Tests 09/21/18 15:50: White Blood Count 20.7H, Corrected White Blood Count 10.4, Red Blood Count 2.91L , Hemoglobin 8.9L, Hematocrit 27.3L, Mean Corpuscular Volume 94, Mean Corpuscular Hemoglobin 30.5, Mean Corpuscular Hemoglobin Concent 32.4, Red Cell Distribution Width 16.4H, Platelet Count 590H, Mean Platelet Volume 6.2L, Neutrophils (%) (Auto) , Lymphocytes (%) (Auto) , Monocytes (%) (Auto) , Eosinophils (%) (Auto) , Basophils (%) (Auto) , Differential Total Cells Counted 100, Neutrophils % (Manual) 65, Lymphocytes % (Manual) 33, Monocytes % ( Manual) 2, Eosinophils % (Manual) 0, Basophils % (Manual) 0, Band Neutrophils 0 , Nucleated Red Blood Cells 99, Platelet Estimate IncreasedH, Platelet Morphology Normal, Polychromasia 2+, Hypochromasia 1+, Poikilocytosis 1+, Basophilic Stippling 1+, Anisocytosis 3+, Macrocytosis 1+, Target Cells 2+, Reticulocyte Count 5.0H, Prothrombin Time 11.5, Prothromb Time International Ratio 1.1, Activated Partial Thromboplast Time 33, Sodium Level 139, Potassium Level 3.8, Chloride Level 100, Carbon Dioxide Level 27, Anion Gap 12, Blood Urea Nitrogen 5L, Creatinine 0.7, Estimat Glomerular Filtration Rate > 60, Glucose Level 151H, Lactic Acid Level 2.20H, Uric Acid 4.8, Calcium Level 8.9, Magnesium Level 2.0, Total Bilirubin 0.5, Aspartate Amino Transf (AST/SGOT) 34, Alanine Aminotransferase (ALT/SGPT) 89H, Alkaline Phosphatase 121H, Lactate Dehydrogenase 196, Total Creatine Kinase 29, Creatine Kinase MB < 0.5, Creatine Kinase MB Relative Index 1.7, Troponin I 0.000, Pro-B-Type Natriuretic Peptide 30, Total Protein 8.8H, Albumin 3.9, Globulin 4.9, Albumin/Globulin Ratio 0.8L, Lipase 49L 09/21/18 16:40: Urine Color Pale yellow, Urine Appearance Clear, Urine pH 6.5, Urine Specific [place] 1.010, Urine Protein Negative, Urine Glucose (UA) Negative, Urine Ketones Negative, Urine Blood Negative, Urine Nitrite Negative, Urine Bilirubin Negative, Urine Urobilinogen Normal, Urine Leukocyte Esterase Negative 09/21/18 17:20: Lactic Acid Level 1.10 09/22/18 06:00: White Blood Count [Pending], Red Blood Count [Pending], Hemoglobin [Pending], Hematocrit [Pending], Mean Corpuscular Volume [Pending], Mean Corpuscular Hemoglobin [Pending], Mean Corpuscular Hemoglobin Concent [Pending], Red Cell Distribution Width [Pending], Platelet Count [Pending], Mean Platelet Volume [ Pending], Neutrophils (%) (Auto) [Pending], Lymphocytes (%) (Auto) [Pending], Monocytes (%) (Auto) [Pending], Eosinophils (%) (Auto) [Pending], Basophils (%) (Auto) [Pending], Prothrombin Time 11.5, Prothromb Time International Ratio 1.1 , Sodium Level 140, Potassium Level 4.0, Chloride Level 105, Carbon Dioxide Level 27, Anion Gap 8, Blood Urea Nitrogen 8, Creatinine 0.6, Estimat Glomerular Filtration Rate > 60, Glucose Level 104, Calcium Level 9.0 Height (Feet): 5 Height (Inches): 6.00 Weight (Pounds): 254 Objective General Appearance: no apparent distress, alert EENT: PERRL/EOMI, normal ENT inspection Neck: non-tender, normal alignment Cardiovascular: normal rate, regular rhythm Respiratory/Chest: decreased breath sounds Abdomen: non tender, soft Extremities: non-tender Edema: no edema noted Arm (L), no edema noted Arm (R), no edema noted Leg (L), no edema noted Leg (R), no edema noted Pedal (L), no edema noted Pedal (R), no edema noted Generalized Neurologic: alert, oriented x 3 Skin: warm/dry Orlando Oglesby Sep 22, 2018 09:07
[2018-09-22] MEDS: Docusate 100mg cap ORAL SCH ×2 (09:52→21:29)
--- NOTE | 2018-09-22 10:15 | NUR ---
NURSE NOTES: Per pt, "I go to [facility] pharmacy for my medications, including my Oxycontin." RN spoke with [facility] pharmacy - Darlyn - who clarified and faxed confirmation that the patient is on Oxycodone HCl ER 20 mg 1 tab PO q12 hrs. Informed Dr. Olmedo and Orlando Oglesby, per both physicians - ok to continue for patient. Spoke with Debbie from pharmacy and relayed orders and confirmation. Addendum: 09/22/18 at 1301 by Zeyad Cordova RN Darlyn from [facility] pharmacy faxed confirmation of Oxycontin dosage and frequency to [facility]. Informed Debbie from pharmacy. Confirmation sheet placed on chart.
[2018-09-22 12:00] VITALS: BP 145/80
[2018-09-22 12:04] LABS: HEMATOCRIT 23.6 % (42.0-52.0); HEMOGLOBIN 8.1 G/DL (14.2-18.0); MEAN CORPUSCULAR VOLUME 93 FL (80-99); PLATELET COUNT 525 K/UL (150-450); RED BLOOD COUNT 2.55 M/UL (4.70-6.10); RED CELL DISTRIBUTION WIDTH 17.3 % (11.6-14.8); WHITE BLOOD COUNT 6.9 K/UL (4.8-10.8)
--- NOTE | 2018-09-22 12:38 | Infectious Diseases Prog Note ---
Assessment/Plan Assessment/Plan ID consult dictated # [id number] Subjective Allergies: Coded Allergies: CAPSAICIN (Verified Allergy, Unknown, 09/21/18) CEFTRIAXONE (Verified Allergy, Unknown, 04/20/16) Uncoded Allergies: CONTRAST (Adverse Reaction, Severe, Rash, 06/23/16) RADIOCONTRAST - RASH, ITCHING Objective Vital Signs Last 24 Hour Vital Signs Date Time Temp Pulse Resp B/P (MAP) Pulse Ox O2 Delivery O2 Flow Rate FiO2 09/22/18 08:00 98.0 65 18 147/65 (92) 99 09/22/18 04:00 98.7 63 18 141/77 (98) 98 09/22/18 01:30 99.7 09/22/18 00:00 100.9 63 20 149/72 (97) 98 09/21/18 20:00 99.2 86 20 141/83 (102) 98 09/21/18 19:37 Room Air 09/21/18 19:30 Room Air 09/21/18 17:50 99.5 85 16 125/69 99 Room Air 09/21/18 17:45 99.5 85 16 125/69 99 Room Air 09/21/18 16:39 99.5 09/21/18 16:39 99.5 09/21/18 15:32 93 16 Room Air 09/21/18 15:24 99.5 93 16 120/66 95 Room Air Height (Feet): 5 Height (Inches): 6.00 Weight (Pounds): 254 Microbiology Date/Time Source Procedure Growth Status 09/21/18 15:50 Nasal Nares Influenza Types A,B Antigen (CHAR) - Final Complete Laboratory Tests Test 09/21/18 15:50 09/21/18 16:40 09/21/18 17:20 09/22/18 06:00 White Blood Count 20.7 K/UL (4.8-10.8) H Corrected White Blood Count 10.4 K/UL Red Blood Count 2.91 M/UL (4.70-6.10) L Hemoglobin 8.9 G/DL (14.2-18.0) L Hematocrit 27.3 % (42.0-52.0) L Mean Corpuscular Volume 94 FL (80-99) Mean Corpuscular Hemoglobin 30.5 PG (27.0-31.0) Mean Corpuscular Hemoglobin Concent 32.4 G/DL (32.0-36.0) Red Cell Distribution Width 16.4 % (11.6-14.8) H Platelet Count 590 K/UL (150-450) H Mean Platelet Volume 6.2 FL (6.5-10.1) L Neutrophils (%) (Auto) % (45.0-75.0) Lymphocytes (%) (Auto) % (20.0-45.0) Monocytes (%) (Auto) % (1.0-10.0) Eosinophils (%) (Auto) % (0.0-3.0) Basophils (%) (Auto) % (0.0-2.0) Differential Total Cells Counted 100 Neutrophils % (Manual) 65 % (45-75) Lymphocytes % (Manual) 33 % (20-45) Monocytes % (Manual) 2 % (1-10) Eosinophils % (Manual) 0 % (0-3) Basophils % (Manual) 0 % (0-2) Band Neutrophils 0 % (0-8) Nucleated Red Blood Cells 99 /100 WBC Platelet Estimate Increased H Platelet Morphology Normal Polychromasia 2+ Hypochromasia 1+ Poikilocytosis 1+ Basophilic Stippling 1+ Anisocytosis 3+ Macrocytosis 1+ Target Cells 2+ Reticulocyte Count 5.0 % (0.0-2.0) H Prothrombin Time 11.5 SEC (9.30-11.50) 11.5 SEC (9.30-11.50) Prothromb Time International Ratio 1.1 (0.9-1.1) 1.1 (0.9-1.1) Activated Partial Thromboplast Time 33 SEC (23-33) Sodium Level 139 MMOL/L (136-145) 140 MMOL/L (136-145) Potassium Level 3.8 MMOL/L (3.5-5.1) 4.0 MMOL/L (3.5-5.1) Chloride Level 100 MMOL/L (98-107) 105 MMOL/L (98-107) Carbon Dioxide Level 27 MMOL/L (21-32) 27 MMOL/L (21-32) Anion Gap 12 mmol/L (5-15) 8 mmol/L (5-15) Blood Urea Nitrogen 5 mg/dL (7-18) L 8 mg/dL (7-18) Creatinine 0.7 MG/DL (0.55-1.30) 0.6 MG/DL (0.55-1.30) Estimat Glomerular Filtration Rate > 60 mL/min (>60) > 60 mL/min (>60) Glucose Level 151 MG/DL (74-106) H 104 MG/DL (74-106) Lactic Acid Level 2.20 mmol/L (0.4-2.0) H 1.10 mmol/L (0.66-2.22) Uric Acid 4.8 MG/DL (2.6-7.2) Calcium Level 8.9 MG/DL (8.5-10.1) 9.0 MG/DL (8.5-10.1) Magnesium Level 2.0 MG/DL (1.8-2.4) Total Bilirubin 0.5 MG/DL (0.2-1.0) Aspartate Amino Transf (AST/SGOT) 34 U/L (15-37) Alanine Aminotransferase (ALT/SGPT) 89 U/L (12-78) H Alkaline Phosphatase 121 U/L (46-116) H Lactate Dehydrogenase 196 U/L (81-234) Total Creatine Kinase 29 U/L (26-308) Creatine Kinase MB < 0.5 NG/ML (0.0-3.6) Creatine Kinase MB Relative Index 1.7 Troponin I 0.000 ng/mL (0.000-0.056) Pro-B-Type Natriuretic Peptide 30 pg/mL (0-125) Total Protein 8.8 G/DL (6.4-8.2) H Albumin 3.9 G/DL (3.4-5.0) Globulin 4.9 g/dL Albumin/Globulin Ratio 0.8 (1.0-2.7) L Lipase 49 U/L (73-393) L Urine Color Pale yellow Urine Appearance Clear Urine pH 6.5 (4.5-8.0) Urine Specific [place] 1.010 (1.005-1.035) Urine Protein Negative (NEGATIVE) Urine Glucose (UA) Negative (NEGATIVE) Urine Ketones Negative (NEGATIVE) Urine Blood Negative (NEGATIVE) Urine Nitrite Negative (NEGATIVE) Urine Bilirubin Negative (NEGATIVE) Urine Urobilinogen Normal MG/DL (0.0-1.0) Urine Leukocyte Esterase Negative (NEGATIVE) Test 09/22/18 11:40 White Blood Count 6.9 K/UL (4.8-10.8) # Red Blood Count 2.55 M/UL (4.70-6.10) L Hemoglobin 8.1 G/DL (14.2-18.0) L Hematocrit 23.6 % (42.0-52.0) L Mean Corpuscular Volume 93 FL (80-99) Mean Corpuscular Hemoglobin 31.7 PG (27.0-31.0) H Mean Corpuscular Hemoglobin Concent 34.2 G/DL (32.0-36.0) Red Cell Distribution Width 17.3 % (11.6-14.8) H Platelet Count 525 K/UL (150-450) H Mean Platelet Volume 6.4 FL (6.5-10.1) L Neutrophils (%) (Auto) % (45.0-75.0) Lymphocytes (%) (Auto) % (20.0-45.0) Monocytes (%) (Auto) % (1.0-10.0) Eosinophils (%) (Auto) % (0.0-3.0) Basophils (%) (Auto) % (0.0-2.0) Neutrophils % (Manual) Pending Lymphocytes % (Manual) Pending Platelet Estimate Pending Platelet Morphology Pending Current Medications Medications (Trade) Dose Ordered Sig/Arianne Route PRN Reason Start Time Stop Time Status Last Admin Dose Admin Acetaminophen (Tylenol) 650 mg Q4H PRN ORAL Mild Pain/Temp > 100.5 09/22/18 05:00 10/22/18 04:59 Aspirin (ASA) 81 mg DAILY ORAL 09/23/18 09:00 10/23/18 08:59 Chlorhexidine Gluconate (Jihan-Hex 2%) 1 applic DAILY@2000 TOPIC 09/22/18 20:00 10/22/18 19:59 Dextrose (Dextrose 50%) 25 ml Q30M PRN IV Hypoglycemia 09/21/18 17:45 10/21/18 17:44 Dextrose (Dextrose 50%) 50 ml Q30M PRN IV Hypoglycemia 09/21/18 17:45 10/21/18 17:44 Diphenhydramine HCl (Benadryl) 25 mg Q4H PRN ORAL Itching 09/22/18 12:30 10/22/18 12:29 Docusate Sodium (Colace) 100 mg EVERY 12 HOURS ORAL 09/21/18 21:00 10/21/18 20:59 09/22/18 09:52 Folic Acid (Folate) 1 mg DAILY ORAL 09/23/18 09:00 10/23/18 08:59 Hydromorphone HCl (Dilaudid) 2 mg Q3H PRN IVP severe pain 09/22/18 09:30 09/28/18 09:29 09/22/18 09:52 Hydroxyurea (Hydrea) 3,500 mg DAILY ORAL 09/23/18 09:00 09/28/18 08:59 Lorazepam (Ativan) 1 mg Q4H PRN ORAL For Anxiety 09/21/18 17:45 09/28/18 17:44 Ondansetron HCl (Zofran) 4 mg Q6H PRN IVP Nausea & Vomiting 09/21/18 17:45 10/21/18 17:44 09/21/18 20:40 Oxycodone HCl (OxyCONTIN) 20 mg EVERY 12 HOURS ORAL 09/22/18 21:00 09/29/18 20:59 Oxycodone/ Acetaminophen (Percocet 10/325) 1 tab Q4H PRN ORAL moderate pain 09/22/18 09:00 09/29/18 08:59 Pantoprazole (Protonix) 40 mg DAILY ORAL 09/22/18 09:00 10/22/18 08:59 09/22/18 09:52 Zolpidem Tartrate (Ambien) 5 mg HSPRN PRN ORAL Insomnia 09/21/18 17:45 09/28/18 17:44 Gonzalo Lechuga MD Sep 22, 2018 12:38
--- NOTE | 2018-09-22 12:55 | Nephrology Progress Note ---
Assessment/Plan Plan full note dictated Objective Objective Last 24 Hour Vital Signs Date Time Temp Pulse Resp B/P (MAP) Pulse Ox O2 Delivery O2 Flow Rate FiO2 09/22/18 12:00 97.7 85 19 145/80 (101) 99 09/22/18 08:00 98.0 65 18 147/65 (92) 99 09/22/18 04:00 98.7 63 18 141/77 (98) 98 09/22/18 01:30 99.7 09/22/18 00:00 100.9 63 20 149/72 (97) 98 09/21/18 20:00 99.2 86 20 141/83 (102) 98 09/21/18 19:37 Room Air 09/21/18 19:30 Room Air 09/21/18 17:50 99.5 85 16 125/69 99 Room Air 09/21/18 17:45 99.5 85 16 125/69 99 Room Air 09/21/18 16:39 99.5 09/21/18 16:39 99.5 09/21/18 15:32 93 16 Room Air 09/21/18 15:24 99.5 93 16 120/66 95 Room Air Intake and Output 09/21/18 09/22/18 18:59 06:59 Intake Total 1000 ml 900 ml Output Total 1200 ml Balance 1000 ml -300 ml Intake IV Total 1000 ml 900 ml Output Urine Total 1200 ml # Voids 1 Laboratory Tests 09/21/18 15:50: White Blood Count 20.7H, Corrected White Blood Count 10.4, Red Blood Count 2.91L , Hemoglobin 8.9L, Hematocrit 27.3L, Mean Corpuscular Volume 94, Mean Corpuscular Hemoglobin 30.5, Mean Corpuscular Hemoglobin Concent 32.4, Red Cell Distribution Width 16.4H, Platelet Count 590H, Mean Platelet Volume 6.2L, Neutrophils (%) (Auto) , Lymphocytes (%) (Auto) , Monocytes (%) (Auto) , Eosinophils (%) (Auto) , Basophils (%) (Auto) , Differential Total Cells Counted 100, Neutrophils % (Manual) 65, Lymphocytes % (Manual) 33, Monocytes % ( Manual) 2, Eosinophils % (Manual) 0, Basophils % (Manual) 0, Band Neutrophils 0 , Nucleated Red Blood Cells 99, Platelet Estimate IncreasedH, Platelet Morphology Normal, Polychromasia 2+, Hypochromasia 1+, Poikilocytosis 1+, Basophilic Stippling 1+, Anisocytosis 3+, Macrocytosis 1+, Target Cells 2+, Reticulocyte Count 5.0H, Prothrombin Time 11.5, Prothromb Time International Ratio 1.1, Activated Partial Thromboplast Time 33, Sodium Level 139, Potassium Level 3.8, Chloride Level 100, Carbon Dioxide Level 27, Anion Gap 12, Blood Urea Nitrogen 5L, Creatinine 0.7, Estimat Glomerular Filtration Rate > 60, Glucose Level 151H, Lactic Acid Level 2.20H, Uric Acid 4.8, Calcium Level 8.9, Magnesium Level 2.0, Total Bilirubin 0.5, Aspartate Amino Transf (AST/SGOT) 34, Alanine Aminotransferase (ALT/SGPT) 89H, Alkaline Phosphatase 121H, Lactate Dehydrogenase 196, Total Creatine Kinase 29, Creatine Kinase MB < 0.5, Creatine Kinase MB Relative Index 1.7, Troponin I 0.000, Pro-B-Type Natriuretic Peptide 30, Total Protein 8.8H, Albumin 3.9, Globulin 4.9, Albumin/Globulin Ratio 0.8L, Lipase 49L 09/21/18 16:40: Urine Color Pale yellow, Urine Appearance Clear, Urine pH 6.5, Urine Specific [place] 1.010, Urine Protein Negative, Urine Glucose (UA) Negative, Urine Ketones Negative, Urine Blood Negative, Urine Nitrite Negative, Urine Bilirubin Negative, Urine Urobilinogen Normal, Urine Leukocyte Esterase Negative 09/21/18 17:20: Lactic Acid Level 1.10 09/22/18 06:00: Prothrombin Time 11.5, Prothromb Time International Ratio 1.1, Sodium Level 140 , Potassium Level 4.0, Chloride Level 105, Carbon Dioxide Level 27, Anion Gap 8 , Blood Urea Nitrogen 8, Creatinine 0.6, Estimat Glomerular Filtration Rate > 60 , Glucose Level 104, Calcium Level 9.0 09/22/18 11:40: White Blood Count 6.9#, Red Blood Count 2.55L, Hemoglobin 8.1L, Hematocrit 23.6L , Mean Corpuscular Volume 93, Mean Corpuscular Hemoglobin 31.7H, Mean Corpuscular Hemoglobin Concent 34.2, Red Cell Distribution Width 17.3H, Platelet Count 525H, Mean Platelet Volume 6.4L, Neutrophils (%) (Auto) , Lymphocytes (%) (Auto) , Monocytes (%) (Auto) , Eosinophils (%) (Auto) , Basophils (%) (Auto) , Neutrophils % (Manual) [Pending], Lymphocytes % (Manual) [Pending], Platelet Estimate [Pending], Platelet Morphology [Pending] Height (Feet): 5 Height (Inches): 6.00 Weight (Pounds): 254 Analisa Richards MD Sep 22, 2018 12:55
--- NOTE | 2018-09-22 15:06 | Cardiology Report ---
APPROVED REPORT EKG Measurement Heart [id number] Sinus rhythm with marked sinus arrhythmia Otherwise normal ECG
[2018-09-22 16:00] VITALS: BP 135/77
--- NOTE | 2018-09-22 19:15 | NUR ---
NURSE NOTES: Pt received awake, alert and orientedx4. Pt was waiting for pain medication to be due as he was in pain. Bed is locked in lowest position, side rails x2. Will continue to monitor
--- NOTE | 2018-09-22 19:30 | History and Physical Report ---
DATE OF ADMISSION: 09/21/[address] Bubba Wesley. HISTORY OF PRESENT ILLNESS: The patient admitted for sickle cell crisis basically flare. The patient also this time complains of chest pain and bilateral knee pain for two days. Also had fever. No chills. No shortness of breath. No nausea, vomiting, or diarrhea. No cough. PAST MEDICAL HISTORY: Significant for asthma and sickle cell. PAST SURGICAL HISTORY: Splenectomy. ALLERGIES: Rocephin, capsaicin, contrast. MEDICATIONS: Aspirin, folic acid, hydroxyurea, and OxyContin. FAMILY HISTORY: Does have history of sickle cell. SOCIAL HISTORY: Denies history of smoking, alcohol, or illicit drugs. REVIEW OF SYSTEMS: HEENT: Denies headaches. PULMONARY: Denies shortness of breath. Denies cough. CARDIOVASCULAR: Does have chest pain for two days. Denies orthopnea. GASTROINTESTINAL: Denies nausea, vomiting, diarrhea. EXTREMITIES: Reports bilateral knee pain as well as chest pain going on for 2 days. CENTRAL NERVOUS SYSTEMS: Denies change in vision or speech pattern. PHYSICAL EXAMINATION: VITAL SIGNS: Temperature 99.2, pulse 86, blood pressure 141/83. HEENT: PERRLA. NECK: Supple. No lymphadenopathy. CHEST: Clear to auscultation CARDIOVASCULAR: Regular rate and rhythm. No murmurs or extra sounds. ABDOMEN: Soft, nontender, nondistended. No organomegaly. EXTREMITIES: No edema. Moves all four extremities. NEUROLOGIC: Sensory intact to touch. Reflexes are equal on both sides. Moves all four extremities. LABORATORY DATA: WBC of 20.7, hemoglobin of 8.9, platelets of 590. Sodium 139, potassium 3.8, BUN 5, creatinine 0.7. ASSESSMENT AND PLAN: Sickle cell crisis, fever, and leukocytosis, rule out sepsis, rule out bronchitis versus UTI. I have asked Dr. Gonzalo Lechuga to see the patient for IV antibiotics as well as Dr. Lewis Olmedo for sickle cell flare as well as Dr. Richards has been consulted for IV fluid hydration. Again, Dr. Gonzalo Lechuga, Dr. Núñez, and Dr. Tucker are also consulted for pain management. Tevin Weiner M.D. DR: HANNA JOB#: [id number] CC:
--- NOTE | 2018-09-22 19:45 | Consultation ---
DATE OF CONSULTATION: 09/22/2018 NEPHROLOGY CONSULTATION CONSULTING PHYSICIAN: Analisa Richards M.D. REFERRING PHYSICIAN: Tevin Weiner M.D. COVERING PHYSICIAN: Bubba Wesley D.O. REASON FOR CONSULTATION: Need for hydration. HISTORY OF PRESENT ILLNESS: The patient is a 22-year-old unfortunate male with past medical history significant for history of sickle cell disease and history of Port-A-Cath placement. He presented to emergency room at [facility] complaining of generalized pain, body ache, and bilateral knee and elbow pain. Also, had low-grade temperature 100.4. The patient denied having any shortness of breath or productive cough. The patient was admitted with diagnosis of sickle cell crisis. I was called for management of renal disease, on IV fluid management. PAST MEDICAL HISTORY: Includin. History of sickle cell crisis. 2. History of Port-A-Cath placement. 3. History of morbid obesity, PAST SURGICAL HISTORY: History of Port-A-Cath placement. ALLERGIES: The patient is allergic to: 1. Capsaicin. 2. Ceftriaxone. 3. Contrast. FAMILY HISTORY: Positive for history of sickle cell disease. REVIEW OF SYSTEMS: GENERAL: He complained of generalized weakness. No fever or chills. No night sweats. HEAD AND NECK: Denies any dysphagia, odynophagia, blurry vision, headache, or neck stiffness. PULMONARY: No shortness of breath. No cough or sputum. CARDIOVASCULAR: Denies any chest pain or palpitations. GASTROINTESTINAL: No nausea or vomiting. GENITOURINARY: No dysuria. No frequency. MUSCULOSKELETAL: Complained of generalized weakness and generalized body aches. PHYSICAL EXAMINATION: VITAL SIGNS: The patient has a temperature of a 99.2, T-max of 100.9, and blood pressure 141/83. HEAD AND NECK: No JVP. No LAD. No thyromegaly. Extraocular movement intact. Pupils are reactive to light and accommodation. LUNGS: Clear to auscultation. CARDIAC: Regular rate and rhythm. S1 and S2. No murmur. No rub. ABDOMEN: Soft, nontender, and nondistended. EXTREMITIES: No edema. No clubbing. No cyanosis. LABORATORY VALUES: On admission, the patient had WBC count of 20,000 down to 6.9, hemoglobin of 8.1, hematocrit of 23, and platelet count of 525,000. Chemistry reveals sodium of 140, potassium of 4.0, 105 chloride, 27 bicarb, BUN of 8, creatinine of 0.6, and glucose of 102. Uric acid of 2.2. Troponin is negative. AST of 34, ALT of 89, and alkaline phosphatase of 121. UA revealed specific gravity of 1.010, no wbc, no rbc, and pH of 6.5. ASSESSMENT: For this patient is sickle cell crisis. PLAN: Plan for the patient to start the patient on half-normal saline at 100 mL/hour. Monitor electrolytes closely. Replace electrolytes as needed. Again, I would like to thank, Dr. Bubba Wesley for allowing to participate in the care of this patient. Analisa Richards M.D. DR: JESUS JOB#: [id number] CC:
--- NOTE | 2018-09-22 19:58 | NUR ---
HAND-OFF: Report given to EDU Mayers and EDU Lane.
[2018-09-22 20:00] VITALS: BP 128/67
[2018-09-22] MEDS: oxyCONTIN 20mg tab ORAL SCH (21:00)
--- NOTE | 2018-09-22 21:00 | Consultation ---
DATE OF CONSULTATION: 09/22/2018 INFECTIOUS DISEASE CONSULTATION CONSULTING PHYSICIAN: Gonzalo Lechuga M.D. PRIMARY ATTENDING PHYSICIAN: Dr. Tevin Weiner covering for Dr. Bubba Wesley. REASON FOR CONSULTATION: Systemic inflammatory response syndrome and sepsis. HISTORY OF PRESENT ILLNESS: A 22-year-old male admitted yesterday complaining of body pain for two days. He had history of sickle cell disease and every couple of months, he is hospitalized with sick cell crisis. He had leukocytosis of 12.7 at the admission had a fever of 100.4 with a maximal temperature of 100.9 in the hospital. 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 ALLERGIES: Allergic to ceftriaxone and capsaicin. MEDICATIONS: Getting aspirin, folic acid, hydroxyurea, oxycodone, Percocet, Tylenol, Colace, Zofran, Ativan, and Ambien. SOCIAL HISTORY: Single. No history of alcohol, drug abuse, or smoking. 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 REVIEW OF SYSTEMS: At the present time, no fever, no chills, no runny nose, no coughing, no nausea, no vomiting, no diarrhea, and no problem passing. PHYSICAL EXAM: VITAL SIGNS: Temperature 98, blood pressure 147/65 and pulse 65. GENERAL APPEARANCE: Seems to be well developed, obese. HEAD AND NECK: [place] conjunctiva. HEART: Normal rate. Has right-sided Port-A-Cath that the patient says is new and was placed one month ago. LUNGS: Clear. ABDOMEN: Soft and nontender. EXTREMITY: Has no edema. SKIN: Has no rash. LABORATORY AND DIAGNOSTIC DATA: WBC of 6.9, hemoglobin 8.1, hematocrit 23.6, and platelets is 535. Sodium 140, potassium 4, chloride 105, bicarbonate 27, BUN 8, and creatinine 0.6. AST is 34, ALT 89, and alkaline phosphatase 121. IMPRESSION: 1. Systemic inflammatory response syndrome less likely sepsis with leukocytosis with fever. 2. Sickle cell crisis. 3. Status post splenectomy. 4. Anemia. 5. Obesity RECOMMENDATIONS: We will follow up the cultures and clinical course. For now, observe off antibiotics. At the end of my exam, I thank primary doctor for involving me in the care of this patient. Gonzalo Lechuga M.D. DR: EDUARDO JOB#: [id number] CC: ISIDRO
--- NOTE | 2018-09-22 21:16 | Consultation ---
History of Present Illness General Chief Complaint: Generalized Weakness Present Illness Allergies: Coded Allergies: CAPSAICIN (Verified Allergy, Unknown, 09/21/18) CEFTRIAXONE (Verified Allergy, Unknown, 04/20/16) Uncoded Allergies: CONTRAST (Adverse Reaction, Severe, Rash, 06/23/16) RADIOCONTRAST - RASH, ITCHING Medication History Scheduled Aspirin* (Aspirin*), 81 MG ORAL DAILY, (Reported) Folic Acid* (Folic Acid*), 1 MG ORAL DAILY, (Reported) Hydroxyurea* (Hydrea*), 3,500 MG PO DAILY, (Reported) Oxycodone Hcl Er* (Oxycontin*), 20 MG ORAL EVERY 12 HOURS, (Reported) Scheduled PRN Fluticasone/Salmeterol (Advair Hfa 115-21 Mcg Inhaler), 2 PUFFS INH EVERY 12 HOURS PRN for Shortness of Breath, (Reported) Hydromorphone Hcl (Hydromorphone Hcl), 16 MG PO Q4HR PRN for Severe Breakthru Pain (>7), (Reported) Discontinued Medications Cholecalciferol (Vitamin D3)* (Vitamin D*), 1,000 UNIT ORAL DAILY, (Reported) Discontinued Reason: Pt stopped taking med Ibuprofen* (Motrin*), 600 MG ORAL Q8H PRN for For Pain Discontinued Reason: Pt stopped taking med Levofloxacin* (Levaquin*), 500 MG ORAL DAILY, (Reported) Discontinued Reason: Pt stopped taking med Patient History Healthcare decision maker N Resuscitation status Full Code Advanced Directive on File Physical Exam Last 24 Hour Vital Signs Date Time Temp Pulse Resp B/P (MAP) Pulse Ox O2 Delivery O2 Flow Rate FiO2 09/22/18 16:00 97.8 80 17 135/77 (96) 97 09/22/18 12:00 97.7 85 19 145/80 (101) 99 09/22/18 09:00 Room Air 09/22/18 08:00 98.0 65 18 147/65 (92) 99 09/22/18 04:00 98.7 63 18 141/77 (98) 98 09/22/18 01:30 99.7 09/22/18 00:00 100.9 63 20 149/72 (97) 98 Intake and Output 09/21/18 09/22/18 19:00 07:00 Intake Total 1000 ml 900 ml Output Total 1200 ml Balance 1000 ml -300 ml Intake IV Total 1000 ml 900 ml Output Urine Total 1200 ml # Voids 1 Laboratory Tests Test 09/22/18 06:00 09/22/18 11:40 Prothrombin Time 11.5 SEC (9.30-11.50) Prothromb Time International Ratio 1.1 (0.9-1.1) Sodium Level 140 MMOL/L (136-145) Potassium Level 4.0 MMOL/L (3.5-5.1) Chloride Level 105 MMOL/L (98-107) Carbon Dioxide Level 27 MMOL/L (21-32) Anion Gap 8 mmol/L (5-15) Blood Urea Nitrogen 8 mg/dL (7-18) Creatinine 0.6 MG/DL (0.55-1.30) Estimat Glomerular Filtration Rate > 60 mL/min (>60) Glucose Level 104 MG/DL (74-106) Calcium Level 9.0 MG/DL (8.5-10.1) White Blood Count 6.9 K/UL (4.8-10.8) # Red Blood Count 2.55 M/UL (4.70-6.10) L Hemoglobin 8.1 G/DL (14.2-18.0) L Hematocrit 23.6 % (42.0-52.0) L Mean Corpuscular Volume 93 FL (80-99) Mean Corpuscular Hemoglobin 31.7 PG (27.0-31.0) H Mean Corpuscular Hemoglobin Concent 34.2 G/DL (32.0-36.0) Red Cell Distribution Width 17.3 % (11.6-14.8) H Platelet Count 525 K/UL (150-450) H Mean Platelet Volume 6.4 FL (6.5-10.1) L Neutrophils (%) (Auto) % (45.0-75.0) Lymphocytes (%) (Auto) % (20.0-45.0) Monocytes (%) (Auto) % (1.0-10.0) Eosinophils (%) (Auto) % (0.0-3.0) Basophils (%) (Auto) % (0.0-2.0) Differential Total Cells Counted 100 Neutrophils % (Manual) 41 % (45-75) L Lymphocytes % (Manual) 53 % (20-45) H Monocytes % (Manual) 6 % (1-10) Eosinophils % (Manual) 0 % (0-3) Basophils % (Manual) 0 % (0-2) Band Neutrophils 0 % (0-8) Nucleated Red Blood Cells 72 /100 WBC Platelet Estimate Increased H Platelet Morphology Normal Basophilic Stippling 1+ Anisocytosis 1+ Macrocytosis 1+ Target Cells 2+ Stomatocytes 1+ Height (Feet): 5 Height (Inches): 6.00 Weight (Pounds): 254 Medications Current Medications Medications (Trade) Dose Ordered Sig/Arianne Route PRN Reason Start Time Stop Time Status Last Admin Dose Admin Acetaminophen (Tylenol) 650 mg Q4H PRN ORAL Mild Pain/Temp > 100.5 09/22/18 05:00 10/22/18 04:59 Aspirin (ASA) 81 mg DAILY ORAL 09/23/18 09:00 10/23/18 08:59 Chlorhexidine Gluconate (Jihan-Hex 2%) 1 applic DAILY@2000 TOPIC 09/22/18 20:00 10/22/18 19:59 Dextrose (Dextrose 50%) 25 ml Q30M PRN IV Hypoglycemia 09/21/18 17:45 10/21/18 17:44 Dextrose (Dextrose 50%) 50 ml Q30M PRN IV Hypoglycemia 09/21/18 17:45 10/21/18 17:44 Diphenhydramine HCl (Benadryl) 25 mg Q4H PRN ORAL Itching 09/22/18 12:30 10/22/18 12:29 Docusate Sodium (Colace) 100 mg EVERY 12 HOURS ORAL 09/21/18 21:00 10/21/18 20:59 09/22/18 09:52 Folic Acid (Folate) 1 mg DAILY ORAL 09/23/18 09:00 10/23/18 08:59 Hydromorphone HCl (Dilaudid) 2 mg Q3H PRN IVP severe pain 09/22/18 09:30 09/28/18 09:29 09/22/18 20:05 Hydroxyurea (Hydrea) 3,500 mg DAILY ORAL 09/23/18 09:00 09/28/18 08:59 Lorazepam (Ativan) 1 mg Q4H PRN ORAL For Anxiety 09/21/18 17:45 09/28/18 17:44 Ondansetron HCl (Zofran) 4 mg Q6H PRN IVP Nausea & Vomiting 09/21/18 17:45 10/21/18 17:44 09/21/18 20:40 Oxycodone HCl (OxyCONTIN) 20 mg EVERY 12 HOURS ORAL 09/22/18 21:00 09/29/18 20:59 Oxycodone/ Acetaminophen (Percocet 10/325) 1 tab Q4H PRN ORAL moderate pain 09/22/18 09:00 09/29/18 08:59 Pantoprazole (Protonix) 40 mg DAILY ORAL 09/22/18 09:00 10/22/18 08:59 09/22/18 09:52 Sodium Chloride 1,000 ml @ 75 mls/hr [id number] IV 09/22/18 13:00 10/22/18 12:59 09/22/18 13:17 Zolpidem Tartrate (Ambien) 5 mg HSPRN PRN ORAL Insomnia 09/21/18 17:45 09/28/18 17:44 Assessment/Plan Assessment/Plan Hematology/Oncology Consultation Requesting MD: Bubba Wesley Date of Service: 09/22/18 Reason for consultation: Sickle cell disease and Anemia HISTORY OF PRESENT ILLNESS: A 22-year-old male admitted yesterday complaining of body pain for two days. He had history of sickle cell disease and every couple of months, he is hospitalized with sick cell crisis. He had leukocytosis of 12.7 at the admission, currently resolved. Hematology/Oncology was consulted for Sickle cell disease and Anemia, hgb 8.1 PAST MEDICAL HISTORY: Significant for asthma and sickle cell. PAST SURGICAL HISTORY: Splenectomy. ALLERGIES: Rocephin, capsaicin, contrast. MEDICATIONS: Aspirin, folic acid, hydroxyurea, and OxyContin. FAMILY HISTORY: Does have history of sickle cell. SOCIAL HISTORY: Denies history of smoking, alcohol, or illicit drugs. REVIEW OF SYSTEMS: HEENT: Denies headaches. PULMONARY: Denies shortness of breath. Denies cough. CARDIOVASCULAR: Does have chest pain for two days. Denies orthopnea. GASTROINTESTINAL: Denies nausea, vomiting, diarrhea. EXTREMITIES: Reports bilateral knee pain as well as chest pain going on for 2 days. CENTRAL NERVOUS SYSTEMS: Denies change in vision or speech pattern. PHYSICAL EXAMINATION: VITAL SIGNS: Temperature 99.2, pulse 86, blood pressure 141/83. HEENT: PERRLA. NECK: Supple. No lymphadenopathy. CHEST: Clear to auscultation CARDIOVASCULAR: Regular rate and rhythm. No murmurs or extra sounds. ABDOMEN: Soft, nontender, nondistended. No organomegaly. EXTREMITIES: No edema. Moves all four extremities. NEUROLOGIC: Sensory intact to touch. Reflexes are equal on both sides. Moves all four extremities. LABORATORY DATA: WBC of 6.9 , hemoglobin of 8.1, platelets of 525. ASSESSMENT AND PLAN: 1. 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 --> Presented in sickle crisis. on hydrea, opioids --> retic daily which has been ordered --> cbc has been reviewed --> continue hydrea 3500mg po daily --> continue indiral powder adjunct medication --> appreciate pain management recs --> will increase ivc 150cc/hr 2. Anemia, secondary to sickle cell disease/B thalassemia --> trend hgb 8.1 3. Thrombocytosis, potentially secondary to reactive process. The timing of this note does not necessarily reflect the time of the patient was seen. Greatly appreciate consultation! Lewis Olmedo MD Sep 22, 2018 21:16
[2018-09-22] MEDS: Dyna-Hex 2% Top Sol 2oz TOPIC SCH (21:29)
--- NOTE | 2018-09-22 22:53 | NUR ---
NURSE NOTES: EDU Mayers called Bending Machine Operator Dr Richards to request patient's IV fluids to be increased from 75 to 150. Pt was concerned about the possibility of "acute chest syndrome" and said his previous admissions he had IV fluids running at 150 ml/h. Dr dovelled back and gave to order via TO/RB to increase IV fluids to 150 ml/h
[2018-09-23] VITALS: BP 134/68
--- NOTE | 2018-09-23 04:11 | NUR ---
NURSE NOTES: Pt received, awake alert and oriented x4. Pt was in pain and waiting until next pain med is due. Sitting upright in bed, bed was locked in lowest position, side rails x2. Will continue to monitor Addendum: 09/23/18 at 0414 by Riana Gutierres RN Time error.
--- NOTE | 2018-09-23 07:16 | NUR ---
HAND-OFF: Report given to Yasmany SORENSEN.
--- NOTE | 2018-09-23 07:35 | NUR ---
NURSE NOTES: Received patient on bed, awake. Portcath intact and patent. Bed in low and locked position,c all light in reach. No signs of respiratory distress. Patient complains of pain will give PRN medication. Room board updated, will continue to monitor.
[2018-09-23 08:00] VITALS: BP 139/72
[2018-09-23] MEDS: Hydroxyurea 500mg cap ORAL SCH (08:47)
[2018-09-23] MEDS: Docusate 100mg cap ORAL SCH ×2 (08:48→21:28)
[2018-09-23] MEDS: Aspirin Baby 81mg ORAL SCH (08:49)
[2018-09-23] MEDS: oxyCONTIN 20mg tab ORAL SCH ×3 (08:49→21:28)
[2018-09-23 12:00] VITALS: BP 112/50
--- NOTE | 2018-09-23 14:13 | NUR ---
CASE MANAGEMENT: INITIAL REVIEW 22 YO M PRESENTED TO OUR ED FROM HOME CC: GEN WEAKNESS. PMHx: SICKLE CELL. ASTHMA. SI:SICKLE CELL CRISIS. T 99.5 HR 93 RR 16 B/P 120/66 SATS 95% ON RA WBC 20.7 BUN 5 GLU 151 LACTIC ACID 2.2 ALT 89 ALP 121 LIPASE 49 IS: NS BOLUS X2 TORADOL IV X1 DILAUDID IV X1 BENADRYL IV X1 ZOFRAN IV X1 PATIENT ADMITTED TO MED/SURG 09/21/2018 @ 1645 DCP: PATIENT TO BE DISCHARGED TO HOME ONCE MEDICALLY CLEARED. PLAN OF CARE: HYDRATION PAIN MANAGEMENT AND CONTROL
[2018-09-23 15:41] LABS: HEMATOCRIT 24.7 % (42.0-52.0); HEMOGLOBIN 8.1 G/DL (14.2-18.0); MEAN CORPUSCULAR VOLUME 95 FL (80-99); PLATELET COUNT 568 K/UL (150-450); WHITE BLOOD COUNT 16.7 K/UL (4.8-10.8)
[2018-09-23 16:00] VITALS: BP 135/56
--- NOTE | 2018-09-23 18:50 | General Progress Note ---
Assessment/Plan Problem List: (1) Flank pain ICD Codes: R10.9 - Unspecified abdominal pain SNOMED: 630728731 (2) Sickle cell disease ICD Codes: D57.1 - Sickle-cell disease without crisis SNOMED: 977661489 (3) ACS (acute coronary syndrome) ICD Codes: I24.9 - Acute ischemic heart disease, unspecified SNOMED: 994857437 (4) Knee pain, bilateral ICD Codes: M25.561 - Pain in right knee; M25.562 - Pain in left knee SNOMED: 77333690 (5) Sickle cell crisis ICD Codes: D57.00 - Hb-SS disease with crisis, unspecified SNOMED: 598909762 (6) Anemia ICD Codes: D64.9 - Anemia, unspecified SNOMED: 347617807 (7) Right knee pain ICD Codes: M25.561 - Pain in right knee SNOMED: 74741851 Qualifiers: Qualified Codes: M25.561 - Pain in right knee (8) Sepsis ICD Codes: A41.9 - Sepsis, unspecified organism SNOMED: 79474646 Status: progressing Assessment/Plan sickle cell crisis anemia afebrile nac needs fluids iv Subjective ROS Limited/Unobtainable: Yes Allergies: Coded Allergies: CAPSAICIN (Verified Allergy, Unknown, 09/21/18) CEFTRIAXONE (Verified Allergy, Unknown, 04/20/16) Uncoded Allergies: CONTRAST (Adverse Reaction, Severe, Rash, 06/23/16) RADIOCONTRAST - RASH, ITCHING Subjective generalized pain Objective Last 24 Hour Vital Signs Date Time Temp Pulse Resp B/P (MAP) Pulse Ox O2 Delivery O2 Flow Rate FiO2 09/23/18 16:00 97.7 69 18 135/56 (82) 98 09/23/18 12:00 98.2 54 16 112/50 (70) 96 09/23/18 09:00 Room Air 09/23/18 08:00 99.5 60 18 139/72 (94) 99 09/23/18 06:41 99.5 09/23/18 00:00 99.5 76 19 134/68 (90) 98 09/22/18 21:00 Room Air 09/22/18 20:00 99.9 66 18 128/67 (87) 98 Intake and Output 09/22/18 09/23/18 19:00 07:00 Intake Total 375 ml 1875 ml Output Total 950 ml 800 ml Balance -575 ml 1075 ml Intake Oral 600 ml IV Total 375 ml 1275 ml Output Urine Total 950 ml 800 ml # Bowel Movements 2 Laboratory Tests 09/23/18 14:50: White Blood Count 16.7#H, Corrected White Blood Count 8.5, Red Blood Count 2.60L , Hemoglobin 8.1L, Hematocrit 24.7L, Mean Corpuscular Volume 95, Mean Corpuscular Hemoglobin 31.1H, Mean Corpuscular Hemoglobin Concent 32.9, Red Cell Distribution Width 18.0H, Platelet Count 568H, Mean Platelet Volume 5.8L, Neutrophils (%) (Auto) , Lymphocytes (%) (Auto) , Monocytes (%) (Auto) , Eosinophils (%) (Auto) , Basophils (%) (Auto) , Differential Total Cells Counted 100, Neutrophils % (Manual) 42L, Lymphocytes % (Manual) 55H, Monocytes % (Manual) 2, Eosinophils % (Manual) 1, Basophils % (Manual) 0, Band Neutrophils 0, Nucleated Red Blood Cells 95, Platelet Estimate IncreasedH, Platelet Morphology Normal, Polychromasia 1+, Hypochromasia 1+, Poikilocytosis 1 +, Basophilic Stippling 1+, Anisocytosis 3+, Microcytosis 1+, Macrocytosis Occasional, Target Cells 1+, Schistocytes Occasional Height (Feet): 5 Height (Inches): 6.00 Weight (Pounds): 254 Cardiovascular: normal rate Respiratory/Chest: lungs clear Abdomen: soft Tevin Weiner MD Sep 23, 2018 18:50
--- NOTE | 2018-09-23 19:35 | NUR ---
HAND-OFF: Report given to EDU Campos.
--- NOTE | 2018-09-23 19:45 | NUR ---
NURSE NOTES: Received patient in bed, in calm mood. On RA, no SOB, no acute distress. Portal cath on R upper chest intact, dry. Bed in lowest position, locked, alarms on. Call light in reach.
[2018-09-23 20:00] VITALS: BP 113/69
[2018-09-23] MEDS: Dyna-Hex 2% Top Sol 2oz TOPIC SCH (20:21)
[2018-09-24] VITALS: BP 128/54
[2018-09-24] MEDS: Zolpidem 5mg tab ORAL PRN (00:20)
[2018-09-24 04:00] VITALS: BP 118/66
--- NOTE | 2018-09-24 07:17 | NUR ---
HAND-OFF: Report given to Mary Anne .
--- NOTE | 2018-09-24 07:25 | NUR ---
NURSE NOTES: Patient alert x4, on room air, no sign of distress and shortness of breath. No sign of chest pain. Porth cathon the right upper chest running NS @125 cc; will give pain medication as order. OB stool pending, patient aware, hut on toilet sit, and patient is ambulatory.Bed at lowest position, side rails up and breaks engaged. Call light within reach. Will keep monitoring.
[2018-09-24 08:00] VITALS: BP 120/63
[2018-09-24] MEDS: Hydroxyurea 500mg cap ORAL SCH (09:11)
[2018-09-24] MEDS: Docusate 100mg cap ORAL SCH ×2 (09:11→20:55)
[2018-09-24] MEDS: Aspirin Baby 81mg ORAL SCH (09:12)
[2018-09-24] MEDS: oxyCONTIN 20mg tab ORAL SCH ×2 (09:12→20:55)
--- NOTE | 2018-09-24 10:51 | NUR ---
NURSE NOTES: Order received to collect urine, patient notified and urine collecting container left at the bed side.
[2018-09-24 12:00] VITALS: BP 128/50
--- NOTE | 2018-09-24 13:35 | General Progress Note ---
Assessment/Plan Problem List: (1) Flank pain ICD Codes: R10.9 - Unspecified abdominal pain SNOMED: 560524426 (2) Sickle cell disease ICD Codes: D57.1 - Sickle-cell disease without crisis SNOMED: 905909287 (3) ACS (acute coronary syndrome) ICD Codes: I24.9 - Acute ischemic heart disease, unspecified SNOMED: 545496004 (4) Knee pain, bilateral ICD Codes: M25.561 - Pain in right knee; M25.562 - Pain in left knee SNOMED: 71864972 (5) Sickle cell crisis ICD Codes: D57.00 - Hb-SS disease with crisis, unspecified SNOMED: 267696109 (6) Anemia ICD Codes: D64.9 - Anemia, unspecified SNOMED: 627661528 (7) Right knee pain ICD Codes: M25.561 - Pain in right knee SNOMED: 47056263 Qualifiers: Qualified Codes: M25.561 - Pain in right knee (8) Sepsis ICD Codes: A41.9 - Sepsis, unspecified organism SNOMED: 77124036 Status: progressing Assessment/Plan sickle cell crisis afebrile anemia pain is improving check h/h needs fluids iv Subjective ROS Limited/Unobtainable: Yes Allergies: Coded Allergies: CAPSAICIN (Verified Allergy, Unknown, 09/21/18) CEFTRIAXONE (Verified Allergy, Unknown, 04/20/16) Uncoded Allergies: CONTRAST (Adverse Reaction, Severe, Rash, 06/23/16) RADIOCONTRAST - RASH, ITCHING Subjective generalized pain Objective Last 24 Hour Vital Signs Date Time Temp Pulse Resp B/P (MAP) Pulse Ox O2 Delivery O2 Flow Rate FiO2 09/24/18 12:00 97.9 59 18 128/50 (76) 97 09/24/18 09:42 98.2 09/24/18 09:42 98.2 09/24/18 09:00 Room Air 09/24/18 08:00 98.2 75 16 120/63 (82) 99 09/24/18 04:00 98.6 66 18 118/66 (83) 98 09/24/18 00:00 99.5 69 18 128/54 (78) 98 09/23/18 21:00 Room Air 09/23/18 20:00 99.2 66 18 113/69 (84) 97 09/23/18 16:00 97.7 69 18 135/56 (82) 98 Intake and Output 09/23/18 09/24/18 18:59 06:59 Intake Total 1500 ml 3350 ml Output Total 800 ml 3000 ml Balance 700 ml 350 ml IV Total 1500 ml 1650 ml Other 1700 ml Output Urine Total 800 ml 3000 ml Laboratory Tests 09/23/18 14:50: White Blood Count 16.7#H, Corrected White Blood Count 8.5, Red Blood Count 2.60L , Hemoglobin 8.1L, Hematocrit 24.7L, Mean Corpuscular Volume 95, Mean Corpuscular Hemoglobin 31.1H, Mean Corpuscular Hemoglobin Concent 32.9, Red Cell Distribution Width 18.0H, Platelet Count 568H, Mean Platelet Volume 5.8L, Neutrophils (%) (Auto) , Lymphocytes (%) (Auto) , Monocytes (%) (Auto) , Eosinophils (%) (Auto) , Basophils (%) (Auto) , Differential Total Cells Counted 100, Neutrophils % (Manual) 42L, Lymphocytes % (Manual) 55H, Monocytes % (Manual) 2, Eosinophils % (Manual) 1, Basophils % (Manual) 0, Band Neutrophils 0, Nucleated Red Blood Cells 95, Platelet Estimate IncreasedH, Platelet Morphology Normal, Polychromasia 1+, Hypochromasia 1+, Poikilocytosis 1 +, Basophilic Stippling 1+, Anisocytosis 3+, Microcytosis 1+, Macrocytosis Occasional, Target Cells 1+, Schistocytes Occasional Height (Feet): 5 Height (Inches): 6.00 Weight (Pounds): 254 Neck: supple Cardiovascular: normal rate Respiratory/Chest: lungs clear Tevin Weiner MD Sep 24, 2018 13:35
--- NOTE | 2018-09-24 13:49 | Infectious Diseases Prog Note ---
Assessment/Plan Assessment/Plan A: 1. Systemic inflammatory response syndrome with leukocytosis with fever. improving 2. Sickle cell crisis. 3. Status post splenectomy. 4. Anemia. 5. Obesity RECOMMENDATIONS: observe off antibiotic Subjective ROS Limited/Unobtainable: No Constitutional: Reports: no symptoms Respiratory: Reports: no symptoms Cardiovascular: Reports: no symptoms Gastrointestinal/Abdominal: Reports: no symptoms Genitourinary: Reports: no symptoms Musculoskeletal: Reports: pain Allergies: Coded Allergies: CAPSAICIN (Verified Allergy, Unknown, 09/21/18) CEFTRIAXONE (Verified Allergy, Unknown, 04/20/16) Uncoded Allergies: CONTRAST (Adverse Reaction, Severe, Rash, 06/23/16) RADIOCONTRAST - RASH, ITCHING Objective Vital Signs Last 24 Hour Vital Signs Date Time Temp Pulse Resp B/P (MAP) Pulse Ox O2 Delivery O2 Flow Rate FiO2 09/24/18 12:00 97.9 59 18 128/50 (76) 97 09/24/18 09:42 98.2 09/24/18 09:42 98.2 09/24/18 09:00 Room Air 09/24/18 08:00 98.2 75 16 120/63 (82) 99 09/24/18 04:00 98.6 66 18 118/66 (83) 98 09/24/18 00:00 99.5 69 18 128/54 (78) 98 09/23/18 21:00 Room Air 09/23/18 20:00 99.2 66 18 113/69 (84) 97 09/23/18 16:00 97.7 69 18 135/56 (82) 98 Height (Feet): 5 Height (Inches): 6.00 Weight (Pounds): 254 General Appearance: no acute distress HEENT: mucous membranes moist Respiratory/Chest: lungs clear Cardiovascular: normal rate, other Abdomen: soft, non tender, other - Port in R chest Extremities: no edema Neurologic/Psychiatric: alert, oriented x 3, responsive Microbiology Date/Time Source Procedure Growth Status 09/21/18 16:05 Blood Blood Culture - Preliminary NO GROWTH AFTER 48 HOURS Resulted 09/21/18 15:50 Blood Blood Culture - Preliminary NO GROWTH AFTER 48 HOURS Resulted 09/21/18 15:50 Nasal Nares Influenza Types A,B Antigen (CHAR) - Final Complete Laboratory Tests Test 09/23/18 14:50 White Blood Count 16.7 K/UL (4.8-10.8) #H Corrected White Blood Count 8.5 K/UL Red Blood Count 2.60 M/UL (4.70-6.10) L Hemoglobin 8.1 G/DL (14.2-18.0) L Hematocrit 24.7 % (42.0-52.0) L Mean Corpuscular Volume 95 FL (80-99) Mean Corpuscular Hemoglobin 31.1 PG (27.0-31.0) H Mean Corpuscular Hemoglobin Concent 32.9 G/DL (32.0-36.0) Red Cell Distribution Width 18.0 % (11.6-14.8) H Platelet Count 568 K/UL (150-450) H Mean Platelet Volume 5.8 FL (6.5-10.1) L Neutrophils (%) (Auto) % (45.0-75.0) Lymphocytes (%) (Auto) % (20.0-45.0) Monocytes (%) (Auto) % (1.0-10.0) Eosinophils (%) (Auto) % (0.0-3.0) Basophils (%) (Auto) % (0.0-2.0) Differential Total Cells Counted 100 Neutrophils % (Manual) 42 % (45-75) L Lymphocytes % (Manual) 55 % (20-45) H Monocytes % (Manual) 2 % (1-10) Eosinophils % (Manual) 1 % (0-3) Basophils % (Manual) 0 % (0-2) Band Neutrophils 0 % (0-8) Nucleated Red Blood Cells 95 /100 WBC Platelet Estimate Increased H Platelet Morphology Normal Polychromasia 1+ Hypochromasia 1+ Poikilocytosis 1+ Basophilic Stippling 1+ Anisocytosis 3+ Microcytosis 1+ Macrocytosis Occasional Target Cells 1+ Schistocytes Occasional Current Medications Medications (Trade) Dose Ordered Sig/Arianne Route PRN Reason Start Time Stop Time Status Last Admin Dose Admin Acetaminophen (Tylenol) 650 mg Q4H PRN ORAL Mild Pain/Temp > 100.5 09/22/18 05:00 10/22/18 04:59 Aspirin (ASA) 81 mg DAILY ORAL 09/23/18 09:00 10/23/18 08:59 09/24/18 09:12 Chlorhexidine Gluconate (Jihan-Hex 2%) 1 applic DAILY@2000 TOPIC 09/22/18 20:00 10/22/18 19:59 09/23/18 20:21 Dextrose (Dextrose 50%) 25 ml Q30M PRN IV Hypoglycemia 09/21/18 17:45 10/21/18 17:44 Dextrose (Dextrose 50%) 50 ml Q30M PRN IV Hypoglycemia 09/21/18 17:45 10/21/18 17:44 Diphenhydramine HCl (Benadryl) 25 mg Q4H PRN ORAL Itching 09/22/18 12:30 10/22/18 12:29 Docusate Sodium (Colace) 100 mg EVERY 12 HOURS ORAL 09/21/18 21:00 10/21/18 20:59 09/24/18 09:11 Folic Acid (Folate) 1 mg DAILY ORAL 09/23/18 09:00 10/23/18 08:59 09/24/18 09:11 Hydromorphone HCl (Dilaudid) 2 mg Q3H PRN IVP severe pain 09/22/18 09:30 09/28/18 09:29 09/24/18 12:25 Hydroxyurea (Hydrea) 3,500 mg DAILY ORAL 09/23/18 09:00 09/28/18 08:59 09/24/18 09:11 Lorazepam (Ativan) 1 mg Q4H PRN ORAL For Anxiety 09/21/18 17:45 09/28/18 17:44 Ondansetron HCl (Zofran) 4 mg Q6H PRN IVP Nausea & Vomiting 09/21/18 17:45 10/21/18 17:44 09/21/18 20:40 Oxycodone HCl (OxyCONTIN) 20 mg EVERY 12 HOURS ORAL 09/22/18 21:00 09/29/18 20:59 09/24/18 09:12 Oxycodone/ Acetaminophen (Percocet 10/325) 1 tab Q4H PRN ORAL moderate pain 09/22/18 09:00 09/29/18 08:59 Pantoprazole (Protonix) 40 mg DAILY ORAL 09/22/18 09:00 10/22/18 08:59 09/24/18 09:12 Sodium Chloride 1,000 ml @ 150 mls/hr Q6H40M IV 09/23/18 13:00 10/22/18 12:59 09/24/18 06:41 Zolpidem Tartrate (Ambien) 5 mg HSPRN PRN ORAL Insomnia 09/21/18 17:45 09/28/18 17:44 09/24/18 00:20 Gonzalo Lechuga MD Sep 24, 2018 13:49
[2018-09-24 16:00] VITALS: BP 123/58
[2018-09-24 18:21] LABS: APPEARANCE,URINE CLEAR; BILIRUBIN, URINE NEGATIVE (NEGATIVE); COLOR,URINE PALE YELLOW; GLUCOSE, URINE (UA) NEGATIVE (NEGATIVE); KETONES,URINE NEGATIVE (NEGATIVE); LEUKOCYTE ESTERASE ,URINE NEGATIVE (NEGATIVE); NITRITE,URINE NEGATIVE (NEGATIVE); PH,URINE 5 (4.5-8.0); PROTEIN,URINE NEGATIVE (NEGATIVE); UROBILINOGEN,URINE NORMAL MG/DL (0.0-1.0)
--- NOTE | 2018-09-24 19:13 | NUR ---
HAND-OFF: Report given to EDU Cotto.
--- NOTE | 2018-09-24 19:30 | NUR ---
NURSE NOTES: Received patient in bed. On RA, no SOB, no acute distress. R upper chest portal cath intact, patent running fluids. Patient c/o leg pain, reminded time of next dose. patient verbalized understanding. Bed in lowest position, locked, alarms on. Call light in reach.
[2018-09-24] MEDS: Dyna-Hex 2% Top Sol 2oz TOPIC SCH (19:41)
[2018-09-24 20:00] VITALS: BP 123/63
[2018-09-25] VITALS: BP 125/61
[2018-09-25 04:00] VITALS: BP 130/66
--- NOTE | 2018-09-25 07:15 | NUR ---
HAND-OFF: Report given to Mary Anne SORENSEN.
--- NOTE | 2018-09-25 07:16 | NUR ---
NURSE NOTES: Patient alert x4, on room air, no sign of shortness of breath and distress; no sign of chest pain; urinal within reach. Patient ambulatory; R-subclavian port a cath in place running NS 150 cc, dressing for port a cath changed last night; OB stool still pending; PM nurse communicated Dr Wesley regarding the matter, will follow up on that; patient getting Dilaudid 2mg, will give as ordered; Bed at lowest position, side rails up x2 and breaks engaged. Call light within reach. Will keep monitoring.
--- NOTE | 2018-09-25 07:28 | NUR ---
NURSE NOTES: Dr Wesley replied to the PM nurse, Yadiel, ordered to communicate Dr Weiner or Dr Caicedo regarding the matter; PM nurse communicated Dr Caicedo regarding patient's OB stool, waiting for order.
[2018-09-25 08:00] VITALS: BP 124/70
[2018-09-25] MEDS: Miralax 17gm pkt ORAL SCH (09:34)
[2018-09-25] MEDS: Hydroxyurea 500mg cap ORAL SCH (09:36)
[2018-09-25] MEDS: oxyCONTIN 20mg tab ORAL SCH ×2 (09:36→21:19)
[2018-09-25] MEDS: Docusate 100mg cap ORAL SCH ×2 (09:36→21:19)
[2018-09-25] MEDS: Sennosides 8.6mg tab ORAL SCH (09:36)
[2018-09-25] MEDS: Aspirin Baby 81mg ORAL SCH (09:36)
--- NOTE | 2018-09-25 11:31 | Infectious Diseases Prog Note ---
Assessment/Plan Assessment/Plan antibiotics : none A 1. fever 2. leucocytosis likely secondary to sickle cell crisis 3. sickle cell crisis 4. anemia P 1. continue off antibiotics Subjective Constitutional: Denies: fever, chills Respiratory: Denies: shortness of breath, dry cough Gastrointestinal/Abdominal: Denies: nausea, vomiting, diarrhea Musculoskeletal: Reports: pain Allergies: Coded Allergies: CAPSAICIN (Verified Allergy, Unknown, 09/21/18) CEFTRIAXONE (Verified Allergy, Unknown, 04/20/16) Uncoded Allergies: CONTRAST (Adverse Reaction, Severe, Rash, 06/23/16) RADIOCONTRAST - RASH, ITCHING Objective Vital Signs Last 24 Hour Vital Signs Date Time Temp Pulse Resp B/P (MAP) Pulse Ox O2 Delivery O2 Flow Rate FiO2 09/25/18 10:06 98.2 09/25/18 10:06 98.2 09/25/18 09:00 Room Air 09/25/18 08:00 98.2 58 18 124/70 (88) 98 09/25/18 04:00 98.2 60 18 130/66 (87) 95 09/25/18 00:00 99.2 72 18 125/61 (82) 96 09/24/18 21:00 Room Air 09/24/18 20:00 99.7 69 19 123/63 (83) 98 09/24/18 16:00 97.9 50 18 123/58 (79) 95 09/24/18 12:00 97.9 59 18 128/50 (76) 97 Height (Feet): 5 Height (Inches): 6.00 Weight (Pounds): 254 Respiratory/Chest: lungs clear Cardiovascular: normal rate, regular rhythm, no gallop/murmur Abdomen: soft, non tender Extremities: no edema, other - right subclavian catheter Laboratory Tests Test 09/24/18 18:13 Urine Color Pale yellow Urine Appearance Clear Urine pH 5 (4.5-8.0) Urine Specific [place] 1.010 (1.005-1.035) Urine Protein Negative (NEGATIVE) Urine Glucose (UA) Negative (NEGATIVE) Urine Ketones Negative (NEGATIVE) Urine Blood Negative (NEGATIVE) Urine Nitrite Negative (NEGATIVE) Urine Bilirubin Negative (NEGATIVE) Urine Urobilinogen Normal MG/DL (0.0-1.0) Urine Leukocyte Esterase Negative (NEGATIVE) Urine RBC 0 /HPF (0 - 0) Urine WBC 0-2 /HPF (0 - 0) Urine Squamous Epithelial Cells Occasional /LPF Urine Bacteria Occasional /HPF (NONE) Current Medications Medications (Trade) Dose Ordered Sig/Arianne Route PRN Reason Start Time Stop Time Status Last Admin Dose Admin Acetaminophen (Tylenol) 650 mg Q4H PRN ORAL Mild Pain/Temp > 100.5 09/22/18 05:00 10/22/18 04:59 Aspirin (ASA) 81 mg DAILY ORAL 09/23/18 09:00 10/23/18 08:59 09/25/18 09:36 Chlorhexidine Gluconate (Jihan-Hex 2%) 1 applic DAILY@2000 TOPIC 09/22/18 20:00 10/22/18 19:59 09/24/18 19:41 Dextrose (Dextrose 50%) 25 ml Q30M PRN IV Hypoglycemia 09/21/18 17:45 10/21/18 17:44 Dextrose (Dextrose 50%) 50 ml Q30M PRN IV Hypoglycemia 09/21/18 17:45 10/21/18 17:44 Diphenhydramine HCl (Benadryl) 25 mg Q4H PRN ORAL Itching 09/22/18 12:30 10/22/18 12:29 Docusate Sodium (Colace) 100 mg EVERY 12 HOURS ORAL 09/21/18 21:00 10/21/18 20:59 09/25/18 09:36 Folic Acid (Folate) 1 mg DAILY ORAL 09/23/18 09:00 10/23/18 08:59 09/25/18 09:37 Hydromorphone HCl (Dilaudid) 2 mg Q3H PRN IVP severe pain 09/22/18 09:30 09/28/18 09:29 09/25/18 09:37 Hydroxyurea (Hydrea) 3,500 mg DAILY ORAL 09/23/18 09:00 09/28/18 08:59 09/25/18 09:36 Lorazepam (Ativan) 1 mg Q4H PRN ORAL For Anxiety 09/21/18 17:45 09/28/18 17:44 09/25/18 03:22 Ondansetron HCl (Zofran) 4 mg Q6H PRN IVP Nausea & Vomiting 09/21/18 17:45 10/21/18 17:44 09/21/18 20:40 Oxycodone HCl (OxyCONTIN) 20 mg EVERY 12 HOURS ORAL 09/22/18 21:00 09/29/18 20:59 09/25/18 09:36 Oxycodone/ Acetaminophen (Percocet 10/325) 1 tab Q4H PRN ORAL moderate pain 09/22/18 09:00 09/29/18 08:59 Pantoprazole (Protonix) 40 mg DAILY ORAL 09/22/18 09:00 10/22/18 08:59 09/25/18 09:36 Polyethylene Glycol (Miralax) 17 gm DAILY ORAL 09/25/18 09:00 10/25/18 08:59 09/25/18 09:34 Sennosides (Senokot) 8.6 mg DAILY ORAL 09/25/18 09:00 10/25/18 08:59 09/25/18 09:36 Sodium Chloride 1,000 ml @ 150 mls/hr Q6H40M IV 09/23/18 13:00 10/22/18 12:59 09/25/18 10:54 Zolpidem Tartrate (Ambien) 5 mg HSPRN PRN ORAL Insomnia 09/21/18 17:45 09/28/18 17:44 09/24/18 00:20 Page Gallegos MD Sep 25, 2018 11:31
--- NOTE | 2018-09-25 11:44 | NUR ---
RD ASSESSMENT & RECOMMENDATIONS SEE CARE ACTIVITY FOR COMPLETE ASSESSMENT DAILY ESTIMATED NEEDS: Needs based on Obese, pulmonary 77kg adj 20-25 kcals/kg 5567-6076 total kcals 1-1.5 g protein/kg 77-116 g total protein 25-30 mL/kg 8835-1612 total fluid mLs NUTRITION DIAGNOSIS: 1) Obesity etiology unknown as evidenced by BMI >40, pt is 177% [place] Body Weight. 2) Altered nutrition related lab values r/t clinical status, sickle cell crisis, low hgb 8.1, febrile on adm. CURRENT DIET: Regular PO DIET RECOMMENDATIONS: Continue Regular Diet ADDITIONAL RECOMMENDATIONS: 1) Obtain a STANDING weight as able for accurate CBW 2) check lytes daily, replete as needed
[2018-09-25 12:26] VITALS: BP 127/66
--- NOTE | 2018-09-25 15:01 | General Progress Note ---
Assessment/Plan Problem List: (1) Flank pain ICD Codes: R10.9 - Unspecified abdominal pain SNOMED: 001876054 (2) Sickle cell disease ICD Codes: D57.1 - Sickle-cell disease without crisis SNOMED: 310576781 (3) ACS (acute coronary syndrome) ICD Codes: I24.9 - Acute ischemic heart disease, unspecified SNOMED: 424145771 (4) Knee pain, bilateral ICD Codes: M25.561 - Pain in right knee; M25.562 - Pain in left knee SNOMED: 43226467 (5) Sickle cell crisis ICD Codes: D57.00 - Hb-SS disease with crisis, unspecified SNOMED: 569906990 (6) Anemia ICD Codes: D64.9 - Anemia, unspecified SNOMED: 076778202 (7) Right knee pain ICD Codes: M25.561 - Pain in right knee SNOMED: 67326558 Qualifiers: Qualified Codes: M25.561 - Pain in right knee (8) Sepsis ICD Codes: A41.9 - Sepsis, unspecified organism SNOMED: 51694217 Status: progressing Assessment/Plan sickle cell crisis generalized pain check h/h afebrible needs fluids iv Subjective ROS Limited/Unobtainable: Yes Allergies: Coded Allergies: CAPSAICIN (Verified Allergy, Unknown, 09/21/18) CEFTRIAXONE (Verified Allergy, Unknown, 04/20/16) Uncoded Allergies: CONTRAST (Adverse Reaction, Severe, Rash, 06/23/16) RADIOCONTRAST - RASH, ITCHING Subjective generalized pain Objective Last 24 Hour Vital Signs Date Time Temp Pulse Resp B/P (MAP) Pulse Ox O2 Delivery O2 Flow Rate FiO2 09/25/18 14:16 98.1 09/25/18 12:26 98.1 62 18 127/66 (86) 97 09/25/18 10:06 98.2 09/25/18 09:00 Room Air 09/25/18 08:00 98.2 58 18 124/70 (88) 98 09/25/18 04:00 98.2 60 18 130/66 (87) 95 09/25/18 00:00 99.2 72 18 125/61 (82) 96 09/24/18 21:00 Room Air 09/24/18 20:00 99.7 69 19 123/63 (83) 98 09/24/18 16:00 97.9 50 18 123/58 (79) 95 Intake and Output 09/24/18 09/25/18 19:00 07:00 Intake Total 2010 ml 1610 ml Output Total 1400 ml 2000 ml Balance 610 ml -390 ml Intake Oral 960 ml 260 ml IV Total 1050 ml 1350 ml Output Urine Total 1400 ml 2000 ml # Voids 2 Laboratory Tests 09/24/18 18:13: Urine Color Pale yellow, Urine Appearance Clear, Urine pH 5, Urine Specific [place] 1.010, Urine Protein Negative, Urine Glucose (UA) Negative, Urine Ketones Negative, Urine Blood Negative, Urine Nitrite Negative, Urine Bilirubin Negative, Urine Urobilinogen Normal, Urine Leukocyte Esterase Negative, Urine RBC 0, Urine WBC 0-2, Urine Squamous Epithelial Cells Occasional, Urine Bacteria Occasional Height (Feet): 5 Height (Inches): 6.00 Weight (Pounds): 254 Neck: supple Cardiovascular: normal rate Respiratory/Chest: lungs clear Abdomen: soft Tevin Weiner MD Sep 25, 2018 15:01
--- NOTE | 2018-09-25 15:59 | Diagnostic Imaging Report ---
Indication: Dyspnea Comparison: 09/21/2018 A single view chest radiograph was obtained. Findings: There is a right chest port in good position. No significant change compared to the prior study. Cardiomediastinal appearance is within normal limits for age. The lungs are clear. Pulmonary vascularity is appropriate. The diaphragmatic contour is smooth and costophrenic angles are sharp. No pleural effusions are identified. The bones are unremarkable. Impression: No acute findings
[2018-09-25 16:00] VITALS: BP 132/71
--- NOTE | 2018-09-25 16:18 | General Progress Note ---
Assessment/Plan Assessment/Plan ASSESSMENT AND PLAN: 1. 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 --> Presented in sickle crisis. on hydrea, opioids --> retic daily which has been ordered --> cbc has been reviewed --> continue hydrea 3500mg po daily --> continue indiral powder adjunct medication --> appreciate pain management recs --> will increase ivc 150cc/hr 2. Anemia, secondary to sickle cell disease/B thalassemia --> trend hgb 8.1 3. Thrombocytosis, potentially secondary to reactive process. The timing of this note does not necessarily reflect the time of the patient was seen. Greatly appreciate consultation! Subjective Constitutional: Denies: no symptoms, chills, diaphoresis, fever, malaise, weakness, other HEENT: Denies: no symptoms, eye pain, blurred vision, tearing, double vision, ear pain, ear discharge, nose pain, nose congestion, throat pain, throat swelling, mouth pain, mouth swelling, other Cardiovascular: Denies: no symptoms, chest pain, edema, irregular heart rate, lightheadedness, palpitations, syncope, other Respiratory: Denies: no symptoms, cough, orthopnea, shortness of breath, SOB with excertion, SOB at rest, sputum, stridor, wheezing, other Gastrointestinal/Abdominal: Denies: no symptoms, abdomen distended, abdominal pain, black stools, tarry stools, blood in stool, constipated, diarrhea, difficulty swallowing, nausea, poor appetite, poor fluid intake, rectal bleeding , vomiting, other Endocrine: Denies: no symptoms, excessive sweating, flushing, intolerance to cold, intolerance to heat, increased hunger, increased thirst, increased urine, unexplained weight gain, unexplained weight loss, other Hematologic/Lymphatic: Denies: no symptoms, anemia, easy bleeding, easy bruising, other Allergies: Coded Allergies: CAPSAICIN (Verified Allergy, Unknown, 09/21/18) CEFTRIAXONE (Verified Allergy, Unknown, 04/20/16) Uncoded Allergies: CONTRAST (Adverse Reaction, Severe, Rash, 06/23/16) RADIOCONTRAST - RASH, ITCHING Subjective 09/24: seen by bedside, awake, comfortable, no events. Objective Last 24 Hour Vital Signs Date Time Temp Pulse Resp B/P (MAP) Pulse Ox O2 Delivery O2 Flow Rate FiO2 09/25/18 14:16 98.1 09/25/18 12:26 98.1 62 18 127/66 (86) 97 09/25/18 10:06 98.2 09/25/18 09:00 Room Air 09/25/18 08:00 98.2 58 18 124/70 (88) 98 09/25/18 04:00 98.2 60 18 130/66 (87) 95 09/25/18 00:00 99.2 72 18 125/61 (82) 96 09/24/18 21:00 Room Air 09/24/18 20:00 99.7 69 19 123/63 (83) 98 Intake and Output 09/24/18 09/25/18 18:59 06:59 Intake Total 2010 ml 1610 ml Output Total 1400 ml 2000 ml Balance 610 ml -390 ml Intake Oral 960 ml 260 ml IV Total 1050 ml 1350 ml Output Urine Total 1400 ml 2000 ml # Voids 2 Laboratory Tests 09/24/18 18:13: Urine Color Pale yellow, Urine Appearance Clear, Urine pH 5, Urine Specific [place] 1.010, Urine Protein Negative, Urine Glucose (UA) Negative, Urine Ketones Negative, Urine Blood Negative, Urine Nitrite Negative, Urine Bilirubin Negative, Urine Urobilinogen Normal, Urine Leukocyte Esterase Negative, Urine RBC 0, Urine WBC 0-2, Urine Squamous Epithelial Cells Occasional, Urine Bacteria Occasional Height (Feet): 5 Height (Inches): 6.00 Weight (Pounds): 254 Objective PHYSICAL EXAMINATION: HEENT: PERRLA. NECK: Supple. No lymphadenopathy. CHEST: Clear to auscultation CARDIOVASCULAR: Regular rate and rhythm. No murmurs or extra sounds. ABDOMEN: Soft, nontender, nondistended. No organomegaly. EXTREMITIES: No edema. Moves all four extremities. NEUROLOGIC: Sensory intact to touch. Reflexes are equal on both sides. Moves all four extremities. Lewsi Olmedo MD Sep 25, 2018 16:18
--- NOTE | 2018-09-25 16:19 | General Progress Note ---
Assessment/Plan Assessment/Plan ASSESSMENT AND PLAN: 1. 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 --> Presented in sickle crisis. on hydrea, opioids --> retic daily which has been ordered --> cbc has been reviewed --> continue hydrea 3500mg po daily --> continue indiral powder adjunct medication --> appreciate pain management recs --> will increase ivc 150cc/hr 2. Anemia, secondary to sickle cell disease/B thalassemia --> trend hgb 8.1 3. Thrombocytosis, potentially secondary to reactive process. The timing of this note does not necessarily reflect the time of the patient was seen. Greatly appreciate consultation! Subjective Allergies: Coded Allergies: CAPSAICIN (Verified Allergy, Unknown, 09/21/18) CEFTRIAXONE (Verified Allergy, Unknown, 04/20/16) Uncoded Allergies: CONTRAST (Adverse Reaction, Severe, Rash, 06/23/16) RADIOCONTRAST - RASH, ITCHING Subjective 09/24: seen by bedside, awake, comfortable, no events. 09/25: awake, comfortable, no events reported. Objective Last 24 Hour Vital Signs Date Time Temp Pulse Resp B/P (MAP) Pulse Ox O2 Delivery O2 Flow Rate FiO2 09/25/18 14:16 98.1 09/25/18 12:26 98.1 62 18 127/66 (86) 97 09/25/18 10:06 98.2 09/25/18 09:00 Room Air 09/25/18 08:00 98.2 58 18 124/70 (88) 98 09/25/18 04:00 98.2 60 18 130/66 (87) 95 09/25/18 00:00 99.2 72 18 125/61 (82) 96 09/24/18 21:00 Room Air 09/24/18 20:00 99.7 69 19 123/63 (83) 98 Intake and Output 09/24/18 09/25/18 18:59 06:59 Intake Total 2010 ml 1610 ml Output Total 1400 ml 2000 ml Balance 610 ml -390 ml Intake Oral 960 ml 260 ml IV Total 1050 ml 1350 ml Output Urine Total 1400 ml 2000 ml # Voids 2 Laboratory Tests 09/24/18 18:13: Urine Color Pale yellow, Urine Appearance Clear, Urine pH 5, Urine Specific [place] 1.010, Urine Protein Negative, Urine Glucose (UA) Negative, Urine Ketones Negative, Urine Blood Negative, Urine Nitrite Negative, Urine Bilirubin Negative, Urine Urobilinogen Normal, Urine Leukocyte Esterase Negative, Urine RBC 0, Urine WBC 0-2, Urine Squamous Epithelial Cells Occasional, Urine Bacteria Occasional Height (Feet): 5 Height (Inches): 6.00 Weight (Pounds): 254 Objective PHYSICAL EXAMINATION: HEENT: PERRLA. NECK: Supple. No lymphadenopathy. CHEST: Clear to auscultation CARDIOVASCULAR: Regular rate and rhythm. No murmurs or extra sounds. ABDOMEN: Soft, nontender, nondistended. No organomegaly. EXTREMITIES: No edema. Moves all four extremities. NEUROLOGIC: Sensory intact to touch. Reflexes are equal on both sides. Moves all four extremities. Lewis Olmedo MD Sep 25, 2018 16:19
--- NOTE | 2018-09-25 19:26 | NUR ---
HAND-OFF: Report given to EDU Cotto.
--- NOTE | 2018-09-25 19:30 | NUR ---
NURSE NOTES: Received patient in bed, in calm mood. On RA, no SOB, no acute distress. R upper chest portal cath dressing intact, dry, running fluids. Bed in lowest position, locked, alarms on. Call light in reach. Patient c/o both elbow and both knee pain at 8/10. Reminded patient time of next dose for pain med. Patient verbalized understanding, will follow up.
[2018-09-25 20:00] VITALS: BP 122/65
[2018-09-25] MEDS: Dyna-Hex 2% Top Sol 2oz TOPIC SCH (20:23)
[2018-09-25] MEDS: Zolpidem 5mg tab ORAL PRN (22:05)
[2018-09-26] VITALS: BP 121/52
[2018-09-26 04:00] VITALS: BP 125/63
--- NOTE | 2018-09-26 07:28 | NUR ---
HAND-OFF: Report given to Kenny SORENSEN.
--- NOTE | 2018-09-26 07:57 | NUR ---
NURSE NOTES: Patient in supine position, just woke up, awake and alert, asking for pain medicine, pleasant, bed in lowest position, call light within reach.
[2018-09-26 08:00] VITALS: BP 134/66
[2018-09-26] MEDS: Hydroxyurea 500mg cap ORAL SCH (08:23)
[2018-09-26] MEDS: Docusate 100mg cap ORAL SCH ×2 (08:23→20:11)
[2018-09-26] MEDS: Miralax 17gm pkt ORAL SCH (08:23)
[2018-09-26] MEDS: oxyCONTIN 20mg tab ORAL SCH ×2 (08:24→20:10)
[2018-09-26] MEDS: Sennosides 8.6mg tab ORAL SCH (08:24)
[2018-09-26] MEDS: Aspirin Baby 81mg ORAL SCH (08:25)
--- NOTE | 2018-09-26 11:52 | Infectious Diseases Prog Note ---
Assessment/Plan Assessment/Plan A: 1. Systemic inflammatory response syndrome with leukocytosis with fever. improving 2. Sickle cell crisis. 3. Status post splenectomy. 4. Anemia. 5. Obesity RECOMMENDATIONS: observe off antibiotic Subjective ROS Limited/Unobtainable: No Constitutional: Reports: no symptoms Respiratory: Reports: no symptoms Gastrointestinal/Abdominal: Reports: other - loose stool Genitourinary: Reports: no symptoms Musculoskeletal: Reports: pain, other - chest, knees Allergies: Coded Allergies: CAPSAICIN (Verified Allergy, Unknown, 09/21/18) CEFTRIAXONE (Verified Allergy, Unknown, 04/20/16) Uncoded Allergies: CONTRAST (Adverse Reaction, Severe, Rash, 06/23/16) RADIOCONTRAST - RASH, ITCHING Objective Vital Signs Last 24 Hour Vital Signs Date Time Temp Pulse Resp B/P (MAP) Pulse Ox O2 Delivery O2 Flow Rate FiO2 09/26/18 09:00 Room Air 09/26/18 08:54 98.4 09/26/18 08:54 98.4 09/26/18 08:00 98.6 51 18 134/66 (88) 100 09/26/18 04:00 98.4 50 18 125/63 (83) 100 09/26/18 00:00 98.0 60 18 121/52 (75) 99 09/25/18 21:00 Room Air 09/25/18 20:00 99.2 72 18 122/65 (84) 98 09/25/18 16:00 98.0 68 18 132/71 (91) 97 09/25/18 12:26 98.1 62 18 127/66 (86) 97 Height (Feet): 5 Height (Inches): 6.00 Weight (Pounds): 254 HEENT: mucous membranes moist Respiratory/Chest: normal breath sounds Cardiovascular: normal rate, bradycardia, other - Port in right side Abdomen: soft, non tender Extremities: no edema Neurologic/Psychiatric: alert, oriented x 3, responsive Current Medications Medications (Trade) Dose Ordered Sig/Arianne Route PRN Reason Start Time Stop Time Status Last Admin Dose Admin Acetaminophen (Tylenol) 650 mg Q4H PRN ORAL Mild Pain/Temp > 100.5 09/22/18 05:00 10/22/18 04:59 Aspirin (ASA) 81 mg DAILY ORAL 09/23/18 09:00 10/23/18 08:59 09/26/18 08:25 Chlorhexidine Gluconate (Jihan-Hex 2%) 1 applic DAILY@2000 TOPIC 09/22/18 20:00 10/22/18 19:59 09/25/18 20:23 Dextrose (Dextrose 50%) 25 ml Q30M PRN IV Hypoglycemia 09/21/18 17:45 10/21/18 17:44 Dextrose (Dextrose 50%) 50 ml Q30M PRN IV Hypoglycemia 09/21/18 17:45 10/21/18 17:44 Diphenhydramine HCl (Benadryl) 25 mg Q4H PRN ORAL Itching 09/22/18 12:30 10/22/18 12:29 Docusate Sodium (Colace) 100 mg EVERY 12 HOURS ORAL 09/21/18 21:00 10/21/18 20:59 09/26/18 08:23 Folic Acid (Folate) 1 mg DAILY ORAL 09/23/18 09:00 10/23/18 08:59 09/26/18 08:24 Hydromorphone HCl (Dilaudid) 2 mg Q3H PRN IVP severe pain 09/22/18 09:30 09/28/18 09:29 09/26/18 11:32 Hydroxyurea (Hydrea) 3,500 mg DAILY ORAL 09/23/18 09:00 09/28/18 08:59 09/26/18 08:23 Lorazepam (Ativan) 1 mg Q4H PRN ORAL For Anxiety 09/21/18 17:45 09/28/18 17:44 09/25/18 03:22 Ondansetron HCl (Zofran) 4 mg Q6H PRN IVP Nausea & Vomiting 09/21/18 17:45 10/21/18 17:44 09/21/18 20:40 Oxycodone HCl (OxyCONTIN) 20 mg EVERY 12 HOURS ORAL 09/22/18 21:00 09/29/18 20:59 09/26/18 08:24 Oxycodone/ Acetaminophen (Percocet 10/325) 1 tab Q4H PRN ORAL moderate pain 09/22/18 09:00 09/29/18 08:59 Pantoprazole (Protonix) 40 mg DAILY ORAL 09/22/18 09:00 10/22/18 08:59 09/26/18 08:24 Polyethylene Glycol (Miralax) 17 gm DAILY ORAL 09/25/18 09:00 10/25/18 08:59 09/26/18 08:23 Sennosides (Senokot) 8.6 mg DAILY ORAL 09/25/18 09:00 10/25/18 08:59 09/26/18 08:24 Sodium Chloride 1,000 ml @ 150 mls/hr Q6H40M IV 09/23/18 13:00 10/22/18 12:59 09/26/18 08:22 Zolpidem Tartrate (Ambien) 5 mg HSPRN PRN ORAL Insomnia 09/21/18 17:45 09/28/18 17:44 09/25/18 22:05 Gonzalo Lechuga MD Sep 26, 2018 11:52
[2018-09-26 12:00] VITALS: BP 120/60
--- NOTE | 2018-09-26 14:24 | General Progress Note ---
Assessment/Plan Problem List: (1) Sickle cell crisis ICD Codes: D57.00 - Hb-SS disease with crisis, unspecified SNOMED: 990807969 (2) Anemia ICD Codes: D64.9 - Anemia, unspecified SNOMED: 637569221 Status: unchanged Assessment/Plan ivf pain control cbc bmp am Subjective Constitutional: Reports: weakness Allergies: Coded Allergies: CAPSAICIN (Verified Allergy, Unknown, 09/21/18) CEFTRIAXONE (Verified Allergy, Unknown, 04/20/16) Uncoded Allergies: CONTRAST (Adverse Reaction, Severe, Rash, 06/23/16) RADIOCONTRAST - RASH, ITCHING All Systems: reviewed and negative except above Subjective c/o gen pain 02/14 Objective Last 24 Hour Vital Signs Date Time Temp Pulse Resp B/P (MAP) Pulse Ox O2 Delivery O2 Flow Rate FiO2 09/26/18 12:00 99.0 60 18 120/60 (80) 98 09/26/18 12:00 98.4 09/26/18 09:00 Room Air 09/26/18 08:54 98.4 09/26/18 08:00 98.6 51 18 134/66 (88) 100 09/26/18 04:00 98.4 50 18 125/63 (83) 100 09/26/18 00:00 98.0 60 18 121/52 (75) 99 09/25/18 21:00 Room Air 09/25/18 20:00 99.2 72 18 122/65 (84) 98 09/25/18 16:00 98.0 68 18 132/71 (91) 97 Intake and Output 09/25/18 09/26/18 19:00 07:00 Intake Total 2000 ml 2250 ml Output Total 2500 ml 1800 ml Balance -500 ml 450 ml Intake Oral 500 ml 600 ml IV Total 1500 ml 1650 ml Output Urine Total 2500 ml 1800 ml # Voids 5 Laboratory Tests 09/26/18 12:16: Stool Occult Blood [Pending] Height (Feet): 5 Height (Inches): 6.00 Weight (Pounds): 254 General Appearance: lethargic EENT: normal ENT inspection Neck: normal alignment Cardiovascular: normal peripheral pulses, normal rate, regular rhythm Respiratory/Chest: chest wall non-tender, lungs clear, normal breath sounds Abdomen: normal bowel sounds, non tender, soft Extremities: normal inspection Edema: no edema noted Arm (L), no edema noted Arm (R), no edema noted Leg (L), no edema noted Leg (R), no edema noted Pedal (L), no edema noted Pedal (R), no edema noted Generalized Neurologic: responsive, motor weakness Skin: normal pigmentation, warm/dry Bubba Wesley DO Sep 26, 2018 14:24
[2018-09-26 16:00] VITALS: BP 120/56
[2018-09-26] MEDS: Dyna-Hex 2% Top Sol 2oz TOPIC SCH ×2 (16:24→20:11)
--- NOTE | 2018-09-26 19:54 | NUR ---
HAND-OFF: Report given to Carly De La Fuente RN. Patient sitting up in bed, awake and alert, watching television, pain treated with Dilaudid, in no apparent distress, bed in lowest position, call light within reach.
[2018-09-26 20:00] VITALS: BP 127/76
--- NOTE | 2018-09-26 21:37 | General Progress Note ---
Assessment/Plan Assessment/Plan ASSESSMENT AND PLAN: 1. 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 --> Presented in sickle crisis. on hydrea, opioids --> retic daily which has been ordered --> cbc has been reviewed --> continue hydrea 3500mg po daily --> continue indiral powder adjunct medication --> appreciate pain management recs --> will increase ivc 150cc/hr 2. Anemia, secondary to sickle cell disease/B thalassemia --> trend hgb 8.1 3. Thrombocytosis, potentially secondary to reactive process. The timing of this note does not necessarily reflect the time of the patient was seen. Greatly appreciate consultation! Subjective Constitutional: Denies: no symptoms, chills, diaphoresis, fever, malaise, weakness, other HEENT: Denies: no symptoms, eye pain, blurred vision, tearing, double vision, ear pain, ear discharge, nose pain, nose congestion, throat pain, throat swelling, mouth pain, mouth swelling, other Cardiovascular: Denies: no symptoms, chest pain, edema, irregular heart rate, lightheadedness, palpitations, syncope, other Respiratory: Denies: no symptoms, cough, orthopnea, shortness of breath, SOB with excertion, SOB at rest, sputum, stridor, wheezing, other Gastrointestinal/Abdominal: Denies: no symptoms, abdomen distended, abdominal pain, black stools, tarry stools, blood in stool, constipated, diarrhea, difficulty swallowing, nausea, poor appetite, poor fluid intake, rectal bleeding , vomiting, other Genitourinary: Denies: no symptoms, burning, discharge, frequency, flank pain, hematuria, incontinence, pain, urgency, other Neurologic/Psychiatric: Denies: no symptoms, anxiety, depressed, emotional problems, headache, numbness, paresthesia, pre-existing deficit, seizure, tingling, tremors, weakness, other Endocrine: Denies: no symptoms, excessive sweating, flushing, intolerance to cold, intolerance to heat, increased hunger, increased thirst, increased urine, unexplained weight gain, unexplained weight loss, other Hematologic/Lymphatic: Denies: no symptoms, anemia, easy bleeding, easy bruising, other Allergies: Coded Allergies: CAPSAICIN (Verified Allergy, Unknown, 09/21/18) CEFTRIAXONE (Verified Allergy, Unknown, 04/20/16) Uncoded Allergies: CONTRAST (Adverse Reaction, Severe, Rash, 06/23/16) RADIOCONTRAST - RASH, ITCHING Subjective 09/24: seen by bedside, awake, comfortable, no events. 09/25: awake, comfortable, no events reported. 09/26:Pt is resting in bed, no acute events, wbc trending up at 16, plt also trending up. Objective Last 24 Hour Vital Signs Date Time Temp Pulse Resp B/P (MAP) Pulse Ox O2 Delivery O2 Flow Rate FiO2 09/26/18 20:40 98.4 09/26/18 18:08 98.4 09/26/18 16:00 98.9 68 18 120/56 (77) 98 09/26/18 12:00 99.0 60 18 120/60 (80) 98 09/26/18 09:00 Room Air 09/26/18 08:00 98.6 51 18 134/66 (88) 100 09/26/18 04:00 98.4 50 18 125/63 (83) 100 09/26/18 00:00 98.0 60 18 121/52 (75) 99 Intake and Output 09/25/18 09/26/18 18:59 06:59 Intake Total 2000 ml 2100 ml Output Total 2500 ml 1800 ml Balance -500 ml 300 ml Intake Oral 500 ml 600 ml IV Total 1500 ml 1500 ml Output Urine Total 2500 ml 1800 ml # Voids 5 Laboratory Tests 09/26/18 12:16: Stool Occult Blood [Pending] Height (Feet): 5 Height (Inches): 6.00 Weight (Pounds): 254 Objective PHYSICAL EXAMINATION: HEENT: PERRLA. NECK: Supple. No lymphadenopathy. CHEST: Clear to auscultation CARDIOVASCULAR: Regular rate and rhythm. No murmurs or extra sounds. ABDOMEN: Soft, nontender, nondistended. No organomegaly. EXTREMITIES: No edema. Moves all four extremities. NEUROLOGIC: Sensory intact to touch. Reflexes are equal on both sides. Moves all four extremities. Lewis Olmedo MD Sep 26, 2018 21:37
[2018-09-27] VITALS: BP 148/88
--- NOTE | 2018-09-27 03:00 | NUR ---
NURSE NOTES: Received patient from [facility] [place]. Patient is awake, in room air, not in respiratory distress. Bed in the lowest position, locked, call light is within reach.Will continue to monitor patient.
[2018-09-27 04:00] VITALS: BP 121/69
--- NOTE | 2018-09-27 06:30 | NUR ---
NURSE NOTES: Unable to weigh pt, on old bed. Pt is asleep.
[2018-09-27 07:09] LABS: HEMATOCRIT 24.4 % (42.0-52.0); HEMOGLOBIN 7.8 G/DL (14.2-18.0); MEAN CORPUSCULAR VOLUME 96 FL (80-99); PLATELET COUNT 615 K/UL (150-450); RED BLOOD COUNT 2.53 M/UL (4.70-6.10); RED CELL DISTRIBUTION WIDTH 18.6 % (11.6-14.8); WHITE BLOOD COUNT 17.2 K/UL (4.8-10.8)
--- NOTE | 2018-09-27 07:14 | NUR ---
HAND-OFF: Report given to EDU [place].
--- NOTE | 2018-09-27 07:27 | NUR ---
NURSE NOTES: received patient in bed, awake, alert and oriented x4. Port a cath intact on right upper chest. Dressing intact, no s/s of infiltration. bed is in lowest position and locked. Call light within reach. Will continue plan of care.
[2018-09-27 07:34] LABS: ANION GAP 7 mmol/L (5-15); BLOOD UREA NITROGEN 3 mg/dL (7-18); CALCIUM 8.4 MG/DL (8.5-10.1); CARBON DIOXIDE 29 MMOL/L (21-32); CHLORIDE 104 MMOL/L (98-107); CREATININE 0.5 MG/DL (0.55-1.30); POTASSIUM 3.8 MMOL/L (3.5-5.1); SODIUM 140 MMOL/L (136-145)
--- NOTE | 2018-09-27 07:35 | NUR ---
NURSE NOTES: Patient was seen by Dr. Olmedo and EDU espinosa aware of hemoglobin of 7.8 with no new order. Addendum: 09/27/18 at 1149 by BARRIE SAHNI RN [facility]
[2018-09-27 08:00] VITALS: BP 132/75
[2018-09-27] MEDS: Miralax 17gm pkt ORAL SCH (09:00)
[2018-09-27] MEDS ORDERED: oxyCONTIN 20mg tab ORAL SCH (09:00)
[2018-09-27] MEDS: Hydroxyurea 500mg cap ORAL SCH (09:01)
[2018-09-27] MEDS: Sennosides 8.6mg tab ORAL SCH (09:01)
[2018-09-27] MEDS: Aspirin Baby 81mg ORAL SCH (09:01)
[2018-09-27] MEDS: Docusate 100mg cap ORAL SCH (09:01)
--- NOTE | 2018-09-27 09:01 | NUR ---
[facility] PT NOTE CONSULT RECEIVED, CAROLINE COMPLTED, PATIENT AT BASELINE LEVEL OF FUNCTION. NO SKILLED NEEDS AT THIS TIME. DC TO NURSING STAFF FOR ENCOURAGED AMBULATION COMFORT AND CARE. NO FURTHR SKILLED PT NEEDS. KIARA SANCHEZ PT DPT Addendum: 09/27/18 at 0901 by KIARA SANCHEZ PT Amended: Links added.
[2018-09-27 12:00] VITALS: BP 141/74
--- NOTE | 2018-09-27 12:42 | Infectious Diseases Prog Note ---
Assessment/Plan Assessment/Plan A: 1. Systemic inflammatory response syndrome with leukocytosis with fever. improving 2. Sickle cell crisis. 3. Status post splenectomy. 4. Anemia. 5. Obesity RECOMMENDATIONS: observe off antibiotic Subjective ROS Limited/Unobtainable: No Constitutional: Reports: other - feels better Respiratory: Reports: no symptoms Cardiovascular: Reports: no symptoms Gastrointestinal/Abdominal: Reports: no symptoms Musculoskeletal: Reports: pain Allergies: Coded Allergies: CAPSAICIN (Verified Allergy, Unknown, 09/21/18) CEFTRIAXONE (Verified Allergy, Unknown, 04/20/16) Uncoded Allergies: CONTRAST (Adverse Reaction, Severe, Rash, 06/23/16) RADIOCONTRAST - RASH, ITCHING Objective Vital Signs Last 24 Hour Vital Signs Date Time Temp Pulse Resp B/P (MAP) Pulse Ox O2 Delivery O2 Flow Rate FiO2 09/27/18 12:00 99.4 60 19 141/74 (96) 98 09/27/18 09:00 Room Air 09/27/18 08:00 98.7 57 18 132/75 (94) 98 09/27/18 04:00 97.0 59 16 121/69 (86) 98 09/27/18 01:02 98.3 09/27/18 00:00 98.3 69 16 148/88 (108) 98 09/26/18 21:00 Room Air 09/26/18 20:40 98.4 09/26/18 20:00 97.8 76 18 127/76 (93) 98 09/26/18 16:00 98.9 68 18 120/56 (77) 98 Height (Feet): 5 Height (Inches): 6.00 Weight (Pounds): 254 General Appearance: no acute distress HEENT: mucous membranes moist Cardiovascular: normal rate Abdomen: soft, non tender Extremities: no edema Neurologic/Psychiatric: alert, oriented x 3, responsive Laboratory Tests Test 09/27/18 06:15 09/27/18 10:30 White Blood Count 17.2 K/UL (4.8-10.8) H Corrected White Blood Count 4.7 K/UL Red Blood Count 2.53 M/UL (4.70-6.10) L Hemoglobin 7.8 G/DL (14.2-18.0) L Hematocrit 24.4 % (42.0-52.0) L Mean Corpuscular Volume 96 FL (80-99) Mean Corpuscular Hemoglobin 30.9 PG (27.0-31.0) Mean Corpuscular Hemoglobin Concent 32.1 G/DL (32.0-36.0) Red Cell Distribution Width 18.6 % (11.6-14.8) H Platelet Count 615 K/UL (150-450) H Mean Platelet Volume 5.8 FL (6.5-10.1) L Neutrophils (%) (Auto) % (45.0-75.0) Lymphocytes (%) (Auto) % (20.0-45.0) Monocytes (%) (Auto) % (1.0-10.0) Eosinophils (%) (Auto) % (0.0-3.0) Basophils (%) (Auto) % (0.0-2.0) Differential Total Cells Counted 100 Neutrophils % (Manual) 43 % (45-75) L Lymphocytes % (Manual) 56 % (20-45) H Monocytes % (Manual) 1 % (1-10) Eosinophils % (Manual) 0 % (0-3) Basophils % (Manual) 0 % (0-2) Band Neutrophils 0 % (0-8) Nucleated Red Blood Cells 122 /100 WBC Platelet Estimate Increased H Platelet Morphology Normal Polychromasia 3+ Sodium Level 140 MMOL/L (136-145) Potassium Level 3.8 MMOL/L (3.5-5.1) Chloride Level 104 MMOL/L (98-107) Carbon Dioxide Level 29 MMOL/L (21-32) Anion Gap 7 mmol/L (5-15) Blood Urea Nitrogen 3 mg/dL (7-18) L Creatinine 0.5 MG/DL (0.55-1.30) L Estimat Glomerular Filtration Rate > 60 mL/min (>60) Glucose Level 95 MG/DL (74-106) Calcium Level 8.4 MG/DL (8.5-10.1) L Reticulocyte Count Pending Current Medications Medications (Trade) Dose Ordered Sig/Raianne Route PRN Reason Start Time Stop Time Status Last Admin Dose Admin Acetaminophen (Tylenol) 650 mg Q4H PRN ORAL Mild Pain/Temp > 100.5 09/22/18 05:00 10/22/18 04:59 Aspirin (ASA) 81 mg DAILY ORAL 09/23/18 09:00 10/23/18 08:59 09/27/18 09:01 Chlorhexidine Gluconate (Jihan-Hex 2%) 1 applic DAILY@2000 TOPIC 09/22/18 20:00 10/22/18 19:59 09/26/18 20:11 Dextrose (Dextrose 50%) 25 ml Q30M PRN IV Hypoglycemia 09/21/18 17:45 10/21/18 17:44 Dextrose (Dextrose 50%) 50 ml Q30M PRN IV Hypoglycemia 09/21/18 17:45 10/21/18 17:44 Diphenhydramine HCl (Benadryl) 25 mg Q4H PRN ORAL Itching 09/22/18 12:30 10/22/18 12:29 Docusate Sodium (Colace) 100 mg EVERY 12 HOURS ORAL 09/21/18 21:00 10/21/18 20:59 09/27/18 09:01 Folic Acid (Folate) 1 mg DAILY ORAL 09/23/18 09:00 10/23/18 08:59 09/27/18 09:01 Hydromorphone HCl (Dilaudid) 2 mg Q3H PRN IVP severe pain 09/27/18 08:53 10/04/18 08:52 09/27/18 10:34 Hydroxyurea (Hydrea) 3,500 mg DAILY ORAL 09/23/18 09:00 09/28/18 08:59 09/27/18 09:01 Lorazepam (Ativan) 1 mg Q4H PRN ORAL For Anxiety 09/21/18 17:45 09/28/18 17:44 09/25/18 03:22 Ondansetron HCl (Zofran) 4 mg Q6H PRN IVP Nausea & Vomiting 09/21/18 17:45 10/21/18 17:44 09/21/18 20:40 Oxycodone HCl (OxyCONTIN) 20 mg EVERY 12 HOURS ORAL 09/27/18 09:00 10/04/18 08:59 09/27/18 09:02 Oxycodone/ Acetaminophen (Percocet 10/325) 1 tab Q4H PRN ORAL moderate pain 09/27/18 09:00 10/04/18 08:59 Pantoprazole (Protonix) 40 mg DAILY ORAL 09/22/18 09:00 10/22/18 08:59 09/27/18 09:01 Polyethylene Glycol (Miralax) 17 gm DAILY ORAL 09/25/18 09:00 10/25/18 08:59 09/26/18 08:23 Sennosides (Senokot) 8.6 mg DAILY ORAL 09/25/18 09:00 10/25/18 08:59 09/27/18 09:01 Sodium Chloride 1,000 ml @ 150 mls/hr Q6H40M IV 09/23/18 13:00 10/22/18 12:59 09/27/18 06:12 Zolpidem Tartrate (Ambien) 5 mg HSPRN PRN ORAL Insomnia 09/21/18 17:45 09/28/18 17:44 09/25/18 22:05 Gonzalo Lechuga MD Sep 27, 2018 12:42
--- NOTE | 2018-09-27 14:35 | General Progress Note ---
Assessment/Plan Problem List: (1) Sickle cell crisis ICD Codes: D57.00 - Hb-SS disease with crisis, unspecified SNOMED: 286473767 (2) Anemia ICD Codes: D64.9 - Anemia, unspecified SNOMED: 385770763 Status: stable, progressing Assessment/Plan ivf pain control dc if clear by heme Subjective Constitutional: Reports: weakness Allergies: Coded Allergies: CAPSAICIN (Verified Allergy, Unknown, 09/21/18) CEFTRIAXONE (Verified Allergy, Unknown, 04/20/16) Uncoded Allergies: CONTRAST (Adverse Reaction, Severe, Rash, 06/23/16) RADIOCONTRAST - RASH, ITCHING All Systems: reviewed and negative except above Subjective feeling better, wants to go home Objective Last 24 Hour Vital Signs Date Time Temp Pulse Resp B/P (MAP) Pulse Ox O2 Delivery O2 Flow Rate FiO2 09/27/18 12:00 99.4 60 19 141/74 (96) 98 09/27/18 09:00 Room Air 09/27/18 08:00 98.7 57 18 132/75 (94) 98 09/27/18 04:00 97.0 59 16 121/69 (86) 98 09/27/18 01:02 98.3 09/27/18 00:00 98.3 69 16 148/88 (108) 98 09/26/18 21:00 Room Air 09/26/18 20:40 98.4 09/26/18 20:00 97.8 76 18 127/76 (93) 98 09/26/18 16:00 98.9 68 18 120/56 (77) 98 Intake and Output 09/26/18 09/27/18 19:00 07:00 Intake Total 1650 ml 1600 ml Output Total 1400 ml Balance 1650 ml 200 ml IV Total 1650 ml 1600 ml Output Urine Total 1400 ml # Voids 4 # Bowel Movements 2 Laboratory Tests 09/27/18 06:15: White Blood Count 17.2H, Corrected White Blood Count 4.7, Red Blood Count 2.53L , Hemoglobin 7.8L, Hematocrit 24.4L, Mean Corpuscular Volume 96, Mean Corpuscular Hemoglobin 30.9, Mean Corpuscular Hemoglobin Concent 32.1, Red Cell Distribution Width 18.6H, Platelet Count 615H, Mean Platelet Volume 5.8L, Neutrophils (%) (Auto) , Lymphocytes (%) (Auto) , Monocytes (%) (Auto) , Eosinophils (%) (Auto) , Basophils (%) (Auto) , Differential Total Cells Counted 100, Neutrophils % (Manual) 43L, Lymphocytes % (Manual) 56H, Monocytes % (Manual) 1, Eosinophils % (Manual) 0, Basophils % (Manual) 0, Band Neutrophils 0, Nucleated Red Blood Cells 122, Platelet Estimate IncreasedH, Platelet Morphology Normal, Polychromasia 3+, Sodium Level 140, Potassium Level 3.8, Chloride Level 104, Carbon Dioxide Level 29, Anion Gap 7, Blood Urea Nitrogen 3L, Creatinine 0.5L, Estimat Glomerular Filtration Rate > 60, Glucose Level 95, Calcium Level 8.4L 09/27/18 10:30: Reticulocyte Count [Pending] Height (Feet): 5 Height (Inches): 6.00 Weight (Pounds): 254 General Appearance: alert EENT: normal ENT inspection Neck: normal alignment Cardiovascular: normal peripheral pulses, normal rate, regular rhythm Respiratory/Chest: chest wall non-tender, lungs clear, normal breath sounds Abdomen: normal bowel sounds, non tender, soft Extremities: normal inspection Edema: no edema noted Arm (L), no edema noted Arm (R), no edema noted Leg (L), no edema noted Leg (R), no edema noted Pedal (L), no edema noted Pedal (R), no edema noted Generalized Neurologic: responsive, motor weakness Skin: normal pigmentation, warm/dry Bubba Wesley DO Sep 27, 2018 14:35
--- NOTE | 2018-09-27 15:50 | NUR ---
NURSE NOTES: Patient dischaged to home in stable condition. Patient was seen by Dr. Wesley prior to discharge. V/S stable. Afebrile. Not in acute distress. All belongings accounted for. RN checked belongings with the patient. Port a cath needle was removed after NS and heparin flush. No s/s of infection or bleeding on Needle removal site. Discharge instruction given tot he patient. Patient will continue to take home meds and will follow up with his primary doctor and specialist as needed. Skin intact, ID was removed.Staff escorted the patient.
[2018-09-27] MEDS ORDERED: Heplock Flush 100 units/ml 3 ml syr INJ SCH (16:00)
--- NOTE | 2018-09-28 09:37 | Discharge Summary ---
Discharge Summary Discharge Summary _ DATE OF ADMISSION: 09/21/2018 DATE OF DISCHARGE: 09/27/2018 DISCHARGED BY: Dr. Bubba Wesley CONSULTANTS: Dr. Gonzalo Olmedo [facility] HOSPITAL COURSE: Patient is a 22-year-old male, with a history of sickle cell and asthma. He presented to ED complaining of increased body pain. He also noted fever of 100.4 F the day prior. He was taking pain medications at home, however, the pain was significant. He denied sore throat, runny nose, productive cough, nausea, vomiting, diarrhea or dysuria. He complained of right knee pain. He had a Port-A-Cath on the right chest side. On evaluation at the ED, blood work showed leukocytosis. WBC was elevated to 21. Hemoglobin was 9, hematocrit 27. Reticulocyte count was 5. LDH normal. Lactic acid was 2.2. Troponin was negative. Urinalysis was essentially negative. EKG showed normal sinus rhythm with no acute changes. Chest x-ray did not show any acute findings; there was presence of right chest Port-A-Cath in good position. He was given IV hydration and analgesia. Blood culture was obtained his Port-A-Cath. He was admitted for evaluation of sickle cell crisis , leukocytosis and right knee pain. He was seen by shading painter. He was given Dilaudid IV prn for severe pain, and Percocet 10/325 mg prn for moderate pain. He was given OxyContin 20 mg twice daily. He had fever of 100.4 F prior to admission, and T-max of 100.9 F in the hospital. ID was consulted. Patient with systemic inflammatory response syndrome, less likely sepsis, with leukocytosis and fever. He was observed off antibiotics, pending culture results. He was given IV hydration. He was given folic acid and aspirin. 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 He was continued on Hydrea 2500 mg daily. He also has anemia, secondary to sickle cell and thalassemia. Thrombocytosis was potentially secondary to reactive process. He was given antipaltelet therapy. Stool OB negative x1. Blood culture did not isolate any growth. Influenza screen was negative. He was continued off antibiotic treatment. He was feeling better with better pain control. He was eventually discharged home to [facility] as outpatient. 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 DISCHARGE MEDICATIONS: Refer to Discharge Medication List. DISCHARGE INSTRUCTIONS: Follow-up in a week. I have been assigned to complete a discharge summary on this account, I was not involved with the patient's management. Taylor Garcia NP Sep 28, 2018 09:37
== END 2018-09-27 15:50 | disposition home or self-care (01) | DRG 662 ==
LOC: EDBEDREQ 15:45 → EMR 16:00 → 4E 16:45 → EDBEDREQ 16:53
DX: D57.419 Sickle-cell thalassemia, unspecified, with crisis (principal); D57.819 Other sickle-cell disorders with crisis, unspecified; R65.10 Systemic inflammatory response syndrome (SIRS) of non-infectious origin without acute organ dysfunction; D47.3 Essential (hemorrhagic) thrombocythemia; Z90.81 Acquired absence of spleen; E66.9 Obesity, unspecified; Z88.8 Allergy status to other drugs, medicaments and biological substances; Z91.041 Radiographic dye allergy status; Z88.1 Allergy status to other antibiotic agents; Z79.82 Long term (current) use of aspirin; J45.909 Unspecified asthma, uncomplicated
CPT/HCPCS: 36415; 71045; 80048; 80053; 81001; 81003; 82270; 82550; 82553; 83605; 83615; 83690; 83735; 83880; 84484; 84550; 85007; 85025; 85044; 85610; 85730; 86710; 86850; 86900; 86901; 87040; 93005; 96361; 96374; 96375; 99285; J2405

== ENCOUNTER 2018-10-30 16:57 | Inpatient (IN) | payer MEDICAID ==
[~2018-10-30] VITALS: Ht 167.6 cm; Wt 113.4 kg
[2018-10-30] MEDS ORDERED: HYDROmorphone 2mg tab ORAL ONE (17:45)
[2018-10-30] MEDS ORDERED: HYDROmorphone 1mg/ml Carpuject IVP ONE ×3 (18:00→21:45)
--- NOTE | 2018-10-30 18:33 | NUR ---
ED Nurse Note: pt transferred to bed 8 from treatment bed.
[2018-10-30 18:34] VITALS: BP 126/71
--- NOTE | 2018-10-30 18:37 | NUR ---
ED Nurse Note: pt reported pain general body pain 8/10 at this moment. aao x 4 and calm and cooperative. pt has port a cath on Rt upper chest. port a cath site clean and intact. pt took dilaudid 2mg 10 minutes ago. pain will be reassessed at 1850.
--- NOTE | 2018-10-30 18:44 | NUR ---
ED Nurse Note: belonging list made and signed by patient.
[2018-10-30 18:47] LABS: BASOPHILS % (AUTO) 1.7 % (0.0-2.0); EOSINOPHILS % (AUTO) 0.1 % (0.0-3.0); HEMATOCRIT 34.6 % (42.0-52.0); HEMOGLOBIN 10.9 G/DL (14.2-18.0); LYMPHOCYTES % (AUTO) 29.2 % (20.0-45.0); MEAN CORPUSCULAR VOLUME 89 FL (80-99); MONOCYTES % (AUTO) 7.2 % (1.0-10.0); NEUTROPHILS % (AUTO) 61.8 % (45.0-75.0); PLATELET COUNT 616 K/UL (150-450); RED BLOOD COUNT 3.91 M/UL (4.70-6.10); RED CELL DISTRIBUTION WIDTH 16.2 % (11.6-14.8); WHITE BLOOD COUNT 10.5 K/UL (4.8-10.8)
[2018-10-30 18:59] LABS: ANION GAP 10 mmol/L (5-15); BLOOD UREA NITROGEN 7 mg/dL (7-18); CALCIUM 9.8 MG/DL (8.5-10.1); CARBON DIOXIDE 24 MMOL/L (21-32); CHLORIDE 100 MMOL/L (98-107); CREATININE 0.6 MG/DL (0.55-1.30); POTASSIUM 4.3 MMOL/L (3.5-5.1); SODIUM 134 MMOL/L (136-145)
--- NOTE | 2018-10-30 19:07 | NUR ---
ED Nurse Note: Received phone call from Lab that PT, PTT needs to be redraw.
[2018-10-30 19:10] LABS: ALANINE AMINOTRANSFERASE 132 U/L (12-78); ALBUMIN 4.1 G/DL (3.4-5.0); ALBUMIN/GLOBULIN RATIO 0.9 (1.0-2.7); ALKALINE PHOSPHATASE 117 U/L (46-116); ASPARTATE AMINO TRANSFERASE 64 U/L (15-37); BILIRUBIN,TOTAL 1.3 MG/DL (0.2-1.0)
[2018-10-30 19:11] LABS: BILIRUBIN,DIRECT 0.3 MG/DL (0.0-0.3)
--- NOTE | 2018-10-30 19:14 | NUR ---
HAND-OFF: Report given to EDU [place]. PT, PTT redrawn was endorsed.
--- NOTE | 2018-10-30 19:20 | NUR ---
ED Nurse Note: Repeat blue top drawn due to previous specimen insufficiency. Draw successful and take to lab.
[2018-10-30 19:23] LABS: CREATINE KINASE 50 U/L (26-308)
--- NOTE | 2018-10-30 19:30 | NUR ---
ED Nurse Note: Patiet report pain level of 8/10, ERMD notified.
--- NOTE | 2018-10-30 19:46 | NUR ---
ED Nurse Note: Pain medication administered, patient tolerated injection well. Fluids complete, patient resting awaiting bed assignment.
[2018-10-30 20:16] LABS: INR 1.1 (0.9-1.1)
--- NOTE | 2018-10-30 21:02 | Emergency Room Report ---
History of Present Illness General Chief Complaint: Pain Source: Patient Present Illness HPI 22 YO Male presents to the ED c/o sickle cell crisis exacerbation x 2 Day(s). He reports 10 out of 10 in severity bilateral lower extremity pain as well as bilateral arm and chest pain. Patient denies fevers or chills he states that his home pain medications or not providing any relief. Denies nausea, vomiting , dizziness, cough or recent illness. Patient reports some shortness of breath and attributes this to the amount of pain that he is in. Denies trauma or fall. She states that when he feels symptoms to this extent he usually requires admission and usually blood transfusions. He reports increased fatigue. No other aggravating or relieving factors at this time Allergies: Coded Allergies: CAPSAICIN (Verified Allergy, Unknown, 09/21/18) CEFTRIAXONE (Verified Allergy, Unknown, 04/20/16) Uncoded Allergies: CONTRAST (Adverse Reaction, Severe, Rash, 06/23/16) RADIOCONTRAST - RASH, ITCHING Patient History Past Medical History: see triage record Past Surgical History: none Pertinent Family History: none Reviewed Nursing Documentation: PMH: Agreed; PSxH: Agreed Nursing Documentation-PMH Past Medical History: No History, Except For Hx Cardiac Problems: No - sickle cell Hx Hypertension: No - Port-A-Cath Hx Pacemaker: No Hx Asthma: Yes Hx COPD: No Hx Diabetes: No Hx Cancer: No Hx Gastrointestinal Problems: No Hx Dialysis: No Hx Neurological Problems: No Hx Cerebrovascular Accident: No Hx Seizures: No Review of Systems All Other Systems: negative except mentioned in HPI Physical Exam Vital Signs Date Time Temp Pulse Resp B/P (MAP) Pulse Ox O2 Delivery O2 Flow Rate FiO2 10/30/18 17:01 99.3 71 16 128/71 95 Room Air Sp02 EP Interpretation: reviewed, normal General Appearance: alert, GCS 15, non-toxic, moderate distress Head: normocephalic, atraumatic Eyes: bilateral eye normal inspection, bilateral eye PERRL ENT: hearing 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, normal voice Neck: full range of motion Respiratory: chest non-tender, lungs clear, normal breath sounds, speaking full sentences, other - port-a-cath Cardiovascular #1: regular rate, rhythm, normal capillary refill Gastrointestinal: non tender, soft Musculoskeletal: back normal, gait/station normal, normal range of motion, non- tender Neurologic: alert, oriented x3, responsive, motor strength/tone normal, sensory intact, speech normal, 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 Psychiatric: judgement/insight normal Skin: normal color, no rash, warm/dry, well hydrated Medical Decision Making PA Attestation Dr. driscoll is my supervising Physician whom patient management has been discussed with. Diagnostic Impression: Primary Impression: Sickle cell crisis Additional Impressions: Elevated liver enzymes Anemia Qualified Codes: D64.9 - Anemia, unspecified ER Course 22 YO Male presents to the ED c/o sickle cell crisis exacerbation x 2 Day(s). He reports 10 out of 10 in severity bilateral lower extremity pain as well as bilateral arm and chest pain. Patient denies fevers or chills he states that his home pain medications or not providing any relief. Denies nausea, vomiting , dizziness, cough or recent illness. Patient reports some shortness of breath and attributes this to the amount of pain that he is in. Denies trauma or fall. She states that when he feels symptoms to this extent he usually requires admission and usually blood transfusions. He reports increased fatigue. No other aggravating or relieving factors at this time Ddx considered but are not limited to Sickle cell crisis, Infection, Cardiac pathology, DVT, Fracture, Dislocation Vital signs: are WNL, pt. is afebrile H&PE are most consistent with Sickle cell crisis ORDERS: -CMP: Elevated LFT's -Reticulocyte count 6.7 -CBC: anemia -Troponin: WNL -CK: WNL ED INTERVENTIONS: - 2 liters NS for hydration. - 1mg + Dilaudid for pain x 3 -25mg IV Benadryl DISPOSITION: at this time pt. will be admitted to Dr. Way for Sickle Cell Crisis. Dr. Way agreed to admit the pt. and to continue pt. care management. Labs Test 10/30/18 18:20 10/30/18 19:45 White Blood Count 10.5 K/UL (4.8-10.8) Red Blood Count 3.91 M/UL (4.70-6.10) Hemoglobin 10.9 G/DL (14.2-18.0) Hematocrit 34.6 % (42.0-52.0) Mean Corpuscular Volume 89 FL (80-99) Mean Corpuscular Hemoglobin 28.0 PG (27.0-31.0) Mean Corpuscular Hemoglobin Concent 31.6 G/DL (32.0-36.0) Red Cell Distribution Width 16.2 % (11.6-14.8) Platelet Count 616 K/UL (150-450) Mean Platelet Volume 6.1 FL (6.5-10.1) Neutrophils (%) (Auto) 61.8 % (45.0-75.0) Lymphocytes (%) (Auto) 29.2 % (20.0-45.0) Monocytes (%) (Auto) 7.2 % (1.0-10.0) Eosinophils (%) (Auto) 0.1 % (0.0-3.0) Basophils (%) (Auto) 1.7 % (0.0-2.0) Reticulocyte Count 6.7 % (0.0-2.0) Sodium Level 134 MMOL/L (136-145) Potassium Level 4.3 MMOL/L (3.5-5.1) Chloride Level 100 MMOL/L (98-107) Carbon Dioxide Level 24 MMOL/L (21-32) Anion Gap 10 mmol/L (5-15) Blood Urea Nitrogen 7 mg/dL (7-18) Creatinine 0.6 MG/DL (0.55-1.30) Estimat Glomerular Filtration Rate > 60 mL/min (>60) Glucose Level 105 MG/DL (74-106) Calcium Level 9.8 MG/DL (8.5-10.1) Total Bilirubin 1.3 MG/DL (0.2-1.0) Direct Bilirubin 0.3 MG/DL (0.0-0.3) Aspartate Amino Transf (AST/SGOT) 64 U/L (15-37) Alanine Aminotransferase (ALT/SGPT) 132 U/L (12-78) Alkaline Phosphatase 117 U/L (46-116) Total Creatine Kinase 50 U/L (26-308) Troponin I 0.000 ng/mL (0.000-0.056) Total Protein 8.9 G/DL (6.4-8.2) Albumin 4.1 G/DL (3.4-5.0) Globulin 4.8 g/dL Albumin/Globulin Ratio 0.9 (1.0-2.7) Prothrombin Time 12.0 SEC (9.30-11.50) Prothromb Time International Ratio 1.1 (0.9-1.1) Activated Partial Thromboplast Time 28 SEC (23-33) EKG Diagnostic Results EP Interpretation: Dr. Carrillo Rate: normal - 60 bpm Rhythm: NSR ST Segments: no acute changes ASA given to the pt in ED: No PA Scribe Text This Interpretation was scribed by JUAN A Zavala. Chest X-Ray Diagnostic Results Chest X-Ray Diagnostic Results : Chest X-Ray Ordered: Yes EP Interpretation: Yes JUAN A Xray: Interpretation reviewed, by supervising MD, and agrees with findings. Interpretation: no consolidation, no effusion, no pneumothorax, no acute cardiopulmonary disease, other - port-a-cath is visible Impression: No acute disease Electronically Signed by: Jacqueline Zavala PA-C Last Vital Signs Date Time Temp Pulse Resp B/P (MAP) Pulse Ox O2 Delivery O2 Flow Rate FiO2 10/30/18 20:15 98.3 10/30/18 18:37 71 22 Room Air 10/30/18 18:34 126/71 96 Status: improved Disposition: ADMITTED INPATIENT Condition: Serious Referrals: Kerline Davenport MD (PCP) Jacqueline Zavala Oct 30, 2018 21:02
--- NOTE | 2018-10-30 21:03 | NUR ---
ED Nurse Note: Patient reports pain level of 8/10, patient is resting comfortably, watcing videos on his phone, no bed assignment at this time. Belongings sheet completed, swabs done and orders processed in system. ERMD will be informed of recurrent pain level.
[2018-10-30] MEDS ORDERED: DiphenhydrAMINE 50mg/ml Inj IVP ONE (21:45)
--- NOTE | 2018-10-30 22:06 | NUR ---
ED Nurse Note: Called to give repot, the nurse was unavailable, will try again in 10 minutes.
--- NOTE | 2018-10-30 22:14 | NUR ---
ED Nurse Note: Report called in to Jordyn RN, patient is A&Ox 4, ambulatory with steady gait has no skin issues and is from home. Since he has been in the hospital within the last 30 days MRSA, CRE and VRE swabs were taken. Patient will be accompanied to the floor by porcelain technician.
--- NOTE | 2018-10-30 22:31 | NUR ---
ED Nurse Note: Patient being transferred to floor by Sunita SORENSEN.
[2018-10-30 22:56] VITALS: BP 113/65
--- NOTE | 2018-10-30 22:56 | NUR ---
NURSE NOTES:Patient received from Jessenia Coronel 22 Years old male present to ED C/O Sickle cell crises exacerbation x2 days . he report 10 out pain out of 10 in severely bilateral lower extremity pain as well as bilateral arm and chest pain .pain controlled with pain medications E D. patient denies fever or chills he states that his home pain medications or not providing any relief. Patient denies n/v, dizziness, cough or recent illness. patient report some shortness of breath and attributes this amount of pain that he is in . vss, afebrile . right chest gracie cath H/L Patent and intact . patient skin intact . patient personal belongings checked with Carmita Coronel ED and patient . patient skin intact . room air patient ambulate with steady gait . and Hank Cope aunt notified patient location [address]. call light within reach .bed in low position at all times . will continue to monitor
[2018-10-31] VITALS: BP 122/67
[2018-10-31] MEDS ORDERED: HYDROmorphone 1mg/ml Carpuject IVP ONE (01:00)
[2018-10-31] MEDS: HYDROmorphone 4mg tab ORAL PRN ×2 (03:11→20:04)
[2018-10-31 04:00] VITALS: BP 132/68
--- NOTE | 2018-10-31 05:10 | NUR ---
NURSE NOTES:Patient c/o bilateral lower extremity pain rates 8 out 10. 10 is the worst pain . patient states that his lindsay epain medications not providing any relief left message to Miguelina Machado . Awaiting to call back . David Cano notified and aware.will continue to monitor. Addendum: 10/31/18 at 0525 by EDUARD OSEI LVN Patient state that his home pain medications not providing any reief. will continue to monitor.
--- NOTE | 2018-10-31 07:30 | NUR ---
HAND-OFF: Report given to Cuca Coronelpatient in stable condition
--- NOTE | 2018-10-31 07:34 | NUR ---
NURSE NOTES:WALKING ROUNDS DONE WITH NIGHT NURSE(EDUARD CRAWLEY)PATIENT SITTING AT THE SIDE OF THE BED A/OX4,ROOM AIR,JUST MEDICATED PRIOR TO REPORT,COTY CATH ON RIGHT CHEST INTACT,PLAN OF CARE DISCUSSED.
[2018-10-31 08:00] VITALS: BP 117/58
[2018-10-31] MEDS: Aspirin Baby 81mg ORAL SCH (08:37)
[2018-10-31] MEDS: Hydroxyurea 500mg cap ORAL SCH (08:37)
[2018-10-31] MEDS: oxyCONTIN 20mg tab ORAL SCH ×3 (08:38→21:35)
--- NOTE | 2018-10-31 08:51 | General Progress Note ---
Assessment/Plan Assessment/Plan (1) Sickle cell disease (2) Sickle cell crisis (3) Intractable pain Pt will be continued on OxyContin and Dilaudid. We will start patient on Dilaudid 1mg IV Q3H PRN. D/w Dr. Tucker and he concurred Subjective Date patient seen: Oct 31, 2018 Time patient seen: 07:15 - am Allergies: Coded Allergies: CAPSAICIN (Verified Allergy, Unknown, 09/21/18) CEFTRIAXONE (Verified Allergy, Unknown, 04/20/16) Uncoded Allergies: CONTRAST (Adverse Reaction, Severe, Rash, 06/23/16) RADIOCONTRAST - RASH, ITCHING Subjective Constitutional: Reports: chills, weakness HEENT: Reports: no symptoms Cardiovascular: Reports: no symptoms Respiratory: Reports: no symptoms Gastrointestinal/Abdominal: Reports: no symptoms Genitourinary: Reports: no symptoms Neurologic/Psychiatric: Reports: tingling, weakness Endocrine: Reports: no symptoms Hematologic/Lymphatic: Reports: no symptoms Subjective Patient is a known patient from prior admission and has been readmitted due to SS crisis. Started on Dilaudid 4mg PO 1 tab Q4H PRN and OxyContin 20mg Q12H ATC. However patient reports that his pain is 9/10 on the current regimen. Due to this we were consulted to allow patient to have adequate pain control while here in the hospital. Objective Last 24 Hour Vital Signs Date Time Temp Pulse Resp B/P (MAP) Pulse Ox O2 Delivery O2 Flow Rate FiO2 10/31/18 04:00 98.8 77 20 132/68 (89) 98 10/31/18 03:41 99.0 10/31/18 01:54 99.0 10/31/18 00:00 99.0 70 20 122/67 (85) 96 70 10/30/18 22:56 Room Air 10/30/18 22:56 99.0 67 20 113/65 (81) 96 10/30/18 22:30 98.3 70 22 126/71 96 Room Air 10/30/18 22:09 98.3 10/30/18 20:15 98.3 10/30/18 18:50 98.3 10/30/18 18:37 71 22 Room Air 10/30/18 18:34 98.3 70 22 126/71 96 Room Air 10/30/18 17:01 99.3 71 16 128/71 95 Room Air Intake and Output 10/30/18 10/31/18 19:00 07:00 Intake Total 0 ml 720 ml Output Total 1480 ml Balance 0 ml -760 ml Intake Oral 0 ml 720 ml Output Urine Total 1480 ml # Voids 3 Height (Feet): 5 Height (Inches): 6.00 Weight (Pounds): 250 Objective General Appearance: no apparent distress, alert EENT: PERRL/EOMI, normal ENT inspection Neck: non-tender, normal alignment Cardiovascular: normal rate, regular rhythm Respiratory/Chest: decreased breath sounds Abdomen: non tender, soft Extremities: non-tender Edema: no edema noted Arm (L), no edema noted Arm (R), no edema noted Leg (L), no edema noted Leg (R), no edema noted Pedal (L), no edema noted Pedal (R), no edema noted Generalized Neurologic: alert, oriented x 3 Skin: warm/dry Orlando Oglesby Oct 31, 2018 08:51
[2018-10-31] MEDS: HYDROmorphone 1mg/ml Carpuject IVP PRN ×5 (09:24→23:18)
[2018-10-31 12:00] VITALS: BP 125/78
--- NOTE | 2018-10-31 12:00 | Consultation ---
History of Present Illness General Chief Complaint: Pain Present Illness Allergies: Coded Allergies: CAPSAICIN (Verified Allergy, Unknown, 09/21/18) CEFTRIAXONE (Verified Allergy, Unknown, 04/20/16) Uncoded Allergies: CONTRAST (Adverse Reaction, Severe, Rash, 06/23/16) RADIOCONTRAST - RASH, ITCHING Medication History Scheduled Aspirin* (Aspirin*), 81 MG ORAL DAILY, (Reported) Folic Acid* (Folic Acid*), 1 MG ORAL DAILY, (Reported) Hydroxyurea* (Hydrea*), 3,500 MG PO DAILY, (Reported) Oxycodone Hcl Er* (Oxycontin*), 20 MG ORAL EVERY 12 HOURS, (Reported) Scheduled PRN Fluticasone/Salmeterol (Advair Hfa 115-21 Mcg Inhaler), 2 PUFFS INH EVERY 12 HOURS PRN for Shortness of Breath, (Reported) Hydromorphone Hcl (Hydromorphone Hcl), 16 MG PO Q4HR PRN for Severe Breakthru Pain (>7), (Reported) Patient History Healthcare decision maker Resuscitation status Full Code Advanced Directive on File No Physical Exam Last 24 Hour Vital Signs Date Time Temp Pulse Resp B/P (MAP) Pulse Ox O2 Delivery O2 Flow Rate FiO2 10/31/18 09:02 Room Air 10/31/18 08:00 99.6 56 20 117/58 (77) 97 10/31/18 04:00 98.8 77 20 132/68 (89) 98 10/31/18 03:41 99.0 10/31/18 01:54 99.0 10/31/18 00:00 99.0 70 20 122/67 (85) 96 70 10/30/18 22:56 Room Air 10/30/18 22:56 99.0 67 20 113/65 (81) 96 10/30/18 22:30 98.3 70 22 126/71 96 Room Air 10/30/18 22:09 98.3 10/30/18 20:15 98.3 10/30/18 18:50 98.3 10/30/18 18:37 71 22 Room Air 10/30/18 18:34 98.3 70 22 126/71 96 Room Air 10/30/18 17:01 99.3 71 16 128/71 95 Room Air Intake and Output 10/30/18 10/31/18 19:00 07:00 Intake Total 0 ml 720 ml Output Total 1480 ml Balance 0 ml -760 ml Intake Oral 0 ml 720 ml Output Urine Total 1480 ml # Voids 3 Laboratory Tests Test 10/30/18 18:20 10/30/18 19:45 White Blood Count 10.5 K/UL (4.8-10.8) Red Blood Count 3.91 M/UL (4.70-6.10) L Hemoglobin 10.9 G/DL (14.2-18.0) L Hematocrit 34.6 % (42.0-52.0) L Mean Corpuscular Volume 89 FL (80-99) Mean Corpuscular Hemoglobin 28.0 PG (27.0-31.0) Mean Corpuscular Hemoglobin Concent 31.6 G/DL (32.0-36.0) L Red Cell Distribution Width 16.2 % (11.6-14.8) H Platelet Count 616 K/UL (150-450) H Mean Platelet Volume 6.1 FL (6.5-10.1) L Neutrophils (%) (Auto) 61.8 % (45.0-75.0) Lymphocytes (%) (Auto) 29.2 % (20.0-45.0) Monocytes (%) (Auto) 7.2 % (1.0-10.0) Eosinophils (%) (Auto) 0.1 % (0.0-3.0) Basophils (%) (Auto) 1.7 % (0.0-2.0) Reticulocyte Count 6.7 % (0.0-2.0) H Sodium Level 134 MMOL/L (136-145) L Potassium Level 4.3 MMOL/L (3.5-5.1) Chloride Level 100 MMOL/L (98-107) Carbon Dioxide Level 24 MMOL/L (21-32) Anion Gap 10 mmol/L (5-15) Blood Urea Nitrogen 7 mg/dL (7-18) Creatinine 0.6 MG/DL (0.55-1.30) Estimat Glomerular Filtration Rate > 60 mL/min (>60) Glucose Level 105 MG/DL (74-106) Calcium Level 9.8 MG/DL (8.5-10.1) Total Bilirubin 1.3 MG/DL (0.2-1.0) H Direct Bilirubin 0.3 MG/DL (0.0-0.3) Aspartate Amino Transf (AST/SGOT) 64 U/L (15-37) H Alanine Aminotransferase (ALT/SGPT) 132 U/L (12-78) H Alkaline Phosphatase 117 U/L (46-116) H Total Creatine Kinase 50 U/L (26-308) Troponin I 0.000 ng/mL (0.000-0.056) Total Protein 8.9 G/DL (6.4-8.2) H Albumin 4.1 G/DL (3.4-5.0) Globulin 4.8 g/dL Albumin/Globulin Ratio 0.9 (1.0-2.7) L Prothrombin Time 12.0 SEC (9.30-11.50) H Prothromb Time International Ratio 1.1 (0.9-1.1) Activated Partial Thromboplast Time 28 SEC (23-33) Height (Feet): 5 Height (Inches): 6.00 Weight (Pounds): 250 Medications Current Medications Medications (Trade) Dose Ordered Sig/Arianne Route PRN Reason Start Time Stop Time Status Last Admin Dose Admin Aspirin (ASA) 81 mg DAILY ORAL 10/31/18 09:00 11/30/18 08:59 10/31/18 08:37 Folic Acid (Folate) 1 mg DAILY ORAL 10/31/18 09:00 11/30/18 08:59 10/31/18 08:37 Hydromorphone HCl (Dilaudid) 1 mg Q3H PRN IVP severe pain 10/31/18 09:00 11/07/18 08:59 10/31/18 09:24 Hydromorphone HCl (Dilaudid) 4 mg Q4H PRN ORAL Severe Breakthru Pain (>7) 10/31/18 01:00 11/07/18 00:59 10/31/18 03:11 Hydroxyurea (Hydrea) 3,500 mg DAILY ORAL 10/31/18 09:00 11/05/18 08:59 10/31/18 08:37 Ondansetron HCl (Zofran) 4 mg EVERY 4 HOURS PRN IVP Nausea & Vomiting 10/31/18 01:00 11/30/18 00:59 Oxycodone HCl (OxyCONTIN) 20 mg EVERY 12 HOURS ORAL 10/31/18 09:00 11/07/18 08:59 10/31/18 08:38 Salmeterol Xinafoate/ Fluticasone (Advair 100/50 Diskus) 1 puffs EVERY 12 HOURS INH 10/31/18 11:00 11/30/18 10:59 Assessment/Plan Status Narrative Hematology/Oncology Consultation Requesting MD: Bubba Wesley Date of Service: 10/31/18 Reason for consultation: Sickle cell disease and Anemia HISTORY OF PRESENT ILLNESS: A 22-year-old male admitted yesterday complaining of body pain for two days. He had history of sickle cell disease and every couple of months, he is hospitalized with sick cell crisis. He had leukocytosis of 12.7 at the admission, currently resolved. Hematology/Oncology was consulted for Sickle cell disease and Anemia, hgb10.9, seen by pain management and heme consulted. PAST MEDICAL HISTORY: Significant for asthma and sickle cell. PAST SURGICAL HISTORY: Splenectomy. ALLERGIES: Rocephin, capsaicin, contrast. MEDICATIONS: Aspirin, folic acid, hydroxyurea, and OxyContin. FAMILY HISTORY: Does have history of sickle cell. SOCIAL HISTORY: Denies history of smoking, alcohol, or illicit drugs. REVIEW OF SYSTEMS: HEENT: Denies headaches. PULMONARY: Denies shortness of breath. Denies cough. CARDIOVASCULAR: Does have chest pain for two days. Denies orthopnea. GASTROINTESTINAL: Denies nausea, vomiting, diarrhea. EXTREMITIES: Reports bilateral knee pain as well as chest pain going on for 2 days. CENTRAL NERVOUS SYSTEMS: Denies change in vision or speech pattern. PHYSICAL EXAMINATION: VITAL SIGNS: have been reviewed HEENT: PERRLA. NECK: Supple. No lymphadenopathy. CHEST: Clear to auscultation CARDIOVASCULAR: Regular rate and rhythm. No murmurs or extra sounds. ABDOMEN: Soft, nontender, nondistended. No organomegaly. EXTREMITIES: No edema. Moves all four extremities. NEUROLOGIC: Sensory intact to touch. Reflexes are equal on both sides. Moves all four extremities. LABORATORY DATA: WBC of 6.9 , hemoglobin of 8.1, platelets of 525. ASSESSMENT AND PLAN: 1. 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 --> Presented in sickle crisis. on hydrea, opioids --> retic daily which has been ordered --> cbc has been reviewed --> continue hydrea 3500mg po daily --> continue indiral powder adjunct medication --> appreciate pain management recs --> will increase ivc 150cc/hr 2. Anemia, secondary to sickle cell disease/B thalassemia --> trend hgb 8.1 --> retic and ldh daily 3. Thrombocytosis, potentially secondary to reactive process --> 616k trend as needed 4. Hyperproteinemia --> spep reviewed last admission The timing of this note does not necessarily reflect the time of the patient was seen. Greatly appreciate consultation! Lewis Olmedo MD Oct 31, 2018 12:00
[2018-10-31] MEDS: Wixela 100/50 Inhaler - 60 dose INH SCH ×2 (13:15→20:49)
--- NOTE | 2018-10-31 15:12 | NUR ---
CASE MANAGEMENT:REVIEW 22 YR OLD MALE PRESENTED TO ER CC; PAIN SI: SICKLE CELL CRISIS. ANEMIA 99.3 71 16 128/71 95% ON RA H/H-10.9/34.6 AST/ALT+64/132 IS: 1L NS BOLUS X2 DILAUDID PO X1 1L NS BOLUS X1 IV DILAUDID X2 : TO MED/SURG 3 EAST INTERQUAL CRITERIA MET
[2018-10-31 15:54] VITALS: BP 107/54
--- NOTE | 2018-10-31 19:15 | Diagnostic Imaging Report ---
Indication: Chest pain Comparison: 09/24/2018 A single view chest radiograph was obtained. Findings: Lung volumes are low. Pulmonary vascularity is mildly prominent. There is a right chest port in good position. Cardiomegaly is present but accounting for low lung volumes may be normal and likely stable. IMPRESSION: Limited study due to low lung volumes. No acute disease
--- NOTE | 2018-10-31 19:17 | Cardiology Report ---
APPROVED REPORT EKG Measurement Heart [id number] Normal sinus rhythm Normal ECG
--- NOTE | 2018-10-31 19:35 | NUR ---
HAND-OFF: Report given to ESTUARDO BENAVIDES RN.PATIENT STABLE.
[2018-10-31 20:00] VITALS: BP 125/67
--- NOTE | 2018-10-31 20:00 | NUR ---
NURSE NOTES: Patient in bed awake and oriented. VSS. No SOB noted. In Room air with oxygen saturation of 95%. 8/10 Generalized body pain per patient. PRN pain medication given. Tolerated well. IV line flushed with clean and dry dressing. Needs attended. Call light within reach. In stable condition.
[2018-11-01] VITALS: BP 129/66
--- NOTE | 2018-11-01 | NUR ---
NURSE NOTES: Report received from Luis SORENSEN. Pt is resting in bed in stable condition. Pt is awake, alert, and oriented x4. Pt is on room air and breathing is even and unlabored. Pt is c/o 8/10 pain particularly in the bilateral lower extremities. IV access is R upper chest port-a-cath and is running IV fluids at rx rate. Bed is in lowest position with brake engaged and side rails up x2. Call light and side table placed within reach. Will continue to monitor.
--- NOTE | 2018-11-01 00:15 | History and Physical Report ---
DATE OF ADMISSION: 10/30/[address] Bubba Wesley. This is Dr. Bubba Wesley's patient HISTORY OF PRESENT ILLNESS: The patient comes in because of sickle cell crisis. The patient states this time, both his knees hurt as well as his right arm, it has been going on for the past four days, it is getting more severe, he could not bear. The patient also has been having diarrhea x1 day, status post splenectomy. The patient denies nausea or vomiting. Denies heartburn. Denies chest pain. Denies shortness of breath. Denies any cold symptoms. PAST MEDICAL HISTORY: Sickle cell and anemia due to sickle cell. PAST SURGICAL HISTORY: Splenectomy. ALLERGIES: To capsaicin, ceftriaxone, and contrast. MEDICATIONS: Aspirin, folic acid, hydromorphone, and hydroxyurea. FAMILY HISTORY: He does have history of sickle cell. SOCIAL HISTORY: He denies history of smoking, alcohol, or illicit drugs. REVIEW OF SYSTEMS: HEENT: Denies headaches. RESPIRATORY: Denies shortness of breath. Denies cough. CARDIOVASCULAR: Denies chest pain. No orthopnea. GASTROINTESTINAL: Denies nausea, vomiting, or diarrhea. EXTREMITIES: Bilateral knee as well as right arm pain for the past four days. CENTRAL NERVOUS SYSTEM: Denies change in vision or speech pattern. PHYSICAL EXAMINATION: VITAL SIGNS: Temperature 99.6, pulse is 56, and blood pressure 117/58. HEENT: PERRLA. NECK: Supple. No lymphadenopathy. CHEST: Clear to auscultation CARDIOVASCULAR: Regular rate and rhythm. No murmurs or extra sounds. GASTROINTESTINAL: Soft, nontender, and nondistended. No organomegaly. EXTREMITIES: No edema. Moves all four extremities. Sensory intact to light touch. Reflexes are equal on both sides. Moves all four extremities. LABORATORY DATA: WBC of 10.5, hemoglobin of 10.9, and platelets of 616,000. Sodium 134, potassium 4.2, chloride 100, glucose 105, BUN of 7, and creatinine 0.6. AST of 64, ALT of 132, and alkaline phosphatase 117. ASSESSMENT AND PLAN: 1. Sickle cell crisis. 2. Bradycardia. I have consulted Dr. Tucker and Dr. Lewis Olmedo for the management of the pain control as well as for the sickle cell management crisis. The patient most likely will need IV fluids as well. Ali Jackie Weiner DR: FLORENCIO JOB#: [id number] CC:
[2018-11-01] MEDS: HYDROmorphone 1mg/ml Carpuject IVP PRN ×9 (02:21→23:53)
[2018-11-01] MEDS: HYDROmorphone 4mg tab ORAL PRN (03:39)
[2018-11-01 04:00] VITALS: BP 147/86
--- NOTE | 2018-11-01 07:12 | NUR ---
NURSE NOTES: Message left for MD Tucker and JUAN A Oglesby re: pt request to increase dilaudid 1mg Q3HR to 1.5mg Q3HR. Awaiting call back for further instructions.
--- NOTE | 2018-11-01 07:43 | NUR ---
HAND-OFF: Report given to Arelis SORENSEN. Pt is resting in bed in stable condition. No acute distress noted. Endorsed plan of care.
[2018-11-01 08:00] VITALS: BP 128/81
--- NOTE | 2018-11-01 08:00 | NUR ---
NURSE NOTES: Pt states that Dilaudid 1 mg IV is not helping to subdue the pain. Pain level 8/. Nathalie VELAZCO of was called, message left. Awaiting call back.
[2018-11-01] MEDS: Wixela 100/50 Inhaler - 60 dose INH SCH ×2 (08:03→20:39)
[2018-11-01] MEDS: Hydroxyurea 500mg cap ORAL SCH (08:52)
[2018-11-01] MEDS: Aspirin Baby 81mg ORAL SCH (08:52)
[2018-11-01] MEDS: oxyCONTIN 20mg tab ORAL SCH ×2 (09:33→21:53)
[2018-11-01 12:00] VITALS: BP 138/70
[2018-11-01 16:00] VITALS: BP 119/69
--- NOTE | 2018-11-01 16:03 | NUR ---
CASE MANAGEMENT:REVIEW 11/01/18 SI: SICKLE CELL CRISIS. ANEMIA 98.6 56 18 138/70 99% ON RA IS: IVF @ 150/HR ADVAIR INH Q12 ASA PO QD FOLATE PO QD HYDREA PO QD OXYCONTIN PO Q12 : MED/SURG STATUS
[2018-11-01 16:24] LABS: HEMATOCRIT 31.2 % (42.0-52.0); HEMOGLOBIN 9.9 G/DL (14.2-18.0); MEAN CORPUSCULAR VOLUME 88 FL (80-99); PLATELET COUNT 512 K/UL (150-450); RED BLOOD COUNT 3.56 M/UL (4.70-6.10); RED CELL DISTRIBUTION WIDTH 15.6 % (11.6-14.8); WHITE BLOOD COUNT 17.4 K/UL (4.8-10.8)
[2018-11-01 16:37] LABS: ALANINE AMINOTRANSFERASE 94 U/L (12-78); ALBUMIN 3.8 G/DL (3.4-5.0); ALBUMIN/GLOBULIN RATIO 0.8 (1.0-2.7); ALKALINE PHOSPHATASE 96 U/L (46-116); ANION GAP 9 mmol/L (5-15); ASPARTATE AMINO TRANSFERASE 35 U/L (15-37); BILIRUBIN,TOTAL 1.3 MG/DL (0.2-1.0); BLOOD UREA NITROGEN 8 mg/dL (7-18); CALCIUM 9.2 MG/DL (8.5-10.1); CARBON DIOXIDE 28 MMOL/L (21-32); CHLORIDE 103 MMOL/L (98-107); CREATININE 0.7 MG/DL (0.55-1.30); LACTATE DEHYDROGENASE 183 U/L (81-234); SODIUM 140 MMOL/L (136-145)
[2018-11-01 16:45] LABS: BILIRUBIN,DIRECT 0.3 MG/DL (0.0-0.3)
--- NOTE | 2018-11-01 17:35 | NUR ---
NURSE NOTES: Pt wants to go home. WBC 17.4. notified. Discharge has postponed till tomorrow 11/02/18/, if cleared by
--- NOTE | 2018-11-01 17:59 | General Progress Note ---
Assessment/Plan Assessment/Plan ASSESSMENT AND PLAN: 1. 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 --> Presented in sickle crisis. on hydrea, opioids --> retic daily which has been ordered --> cbc has been reviewed --> continue hydrea 3500mg po daily --> continue indiral powder adjunct medication --> appreciate pain management recs --> will increase ivc 150cc/hr 2. Anemia, secondary to sickle cell disease/B thalassemia --> trend hgb 8.1 --> retic and ldh daily 3. Thrombocytosis, potentially secondary to reactive process --> 616k -->512k 4. Hyperproteinemia --> spep reviewed last admission 5. Leukocytosis could be related to infection --> monitor for fever, if recurrent, obtain w/i The timing of this note does not necessarily reflect the time of the patient was seen. Greatly appreciate consultation! Subjective HEENT: Denies: no symptoms, eye pain, blurred vision, tearing, double vision, ear pain, ear discharge, nose pain, nose congestion, throat pain, throat swelling, mouth pain, mouth swelling, other Cardiovascular: Denies: no symptoms, chest pain, edema, irregular heart rate, lightheadedness, palpitations, syncope, other Respiratory: Denies: no symptoms, cough, orthopnea, shortness of breath, SOB with excertion, SOB at rest, sputum, stridor, wheezing, other Gastrointestinal/Abdominal: Denies: no symptoms, abdomen distended, abdominal pain, black stools, tarry stools, blood in stool, constipated, diarrhea, difficulty swallowing, nausea, poor appetite, poor fluid intake, rectal bleeding , vomiting, other Genitourinary: Denies: no symptoms, burning, discharge, frequency, flank pain, hematuria, incontinence, pain, urgency, other Neurologic/Psychiatric: Denies: no symptoms, anxiety, depressed, emotional problems, headache, numbness, paresthesia, pre-existing deficit, seizure, tingling, tremors, weakness, other Endocrine: Denies: no symptoms, excessive sweating, flushing, intolerance to cold, intolerance to heat, increased hunger, increased thirst, increased urine, unexplained weight gain, unexplained weight loss, other Hematologic/Lymphatic: Denies: no symptoms, anemia, easy bleeding, easy bruising, other Allergies: Coded Allergies: CAPSAICIN (Verified Allergy, Unknown, 09/21/18) CEFTRIAXONE (Verified Allergy, Unknown, 04/20/16) Uncoded Allergies: CONTRAST (Adverse Reaction, Severe, Rash, 06/23/16) RADIOCONTRAST - RASH, ITCHING Subjective 11/01: wbc obtained late in the day, was elevated, consider dc tomorrow am after wbc lower, r/o infection Objective Last 24 Hour Vital Signs Date Time Temp Pulse Resp B/P (MAP) Pulse Ox O2 Delivery O2 Flow Rate FiO2 11/01/18 17:43 98.8 11/01/18 16:00 98.8 58 18 119/69 (86) 99 11/01/18 12:00 98.6 56 18 138/70 (92) 99 11/01/18 10:03 98.7 11/01/18 09:23 98.7 11/01/18 09:00 Room Air 11/01/18 08:05 62 16 98 Room Air 21 11/01/18 08:03 60 16 98 Room Air 21 11/01/18 08:00 97.9 57 18 128/81 (97) 98 11/01/18 04:00 98.7 52 17 147/86 (106) 98 11/01/18 00:00 99.1 69 17 129/66 (87) 97 10/31/18 21:00 Room Air 10/31/18 20:51 64 18 98 Room Air 21 10/31/18 20:50 64 18 97 Room Air 21 10/31/18 20:00 99.6 67 19 125/67 (86) 97 Intake and Output 10/31/18 11/01/18 19:00 07:00 Intake Total 880 ml 930 ml Output Total 300 ml 2400 ml Balance 580 ml -1470 ml Intake Oral 880 ml 780 ml IV Total 150 ml Output Urine Total 300 ml 2400 ml # Voids 3 3 Laboratory Tests 11/01/18 16:00: White Blood Count 17.4H, Red Blood Count 3.56L, Hemoglobin 9.9L, Hematocrit 31.2L, Mean Corpuscular Volume 88, Mean Corpuscular Hemoglobin 27.8, Mean Corpuscular Hemoglobin Concent 31.7L, Red Cell Distribution Width 15.6H, Platelet Count 512H, Mean Platelet Volume 5.7L, Neutrophils (%) (Auto) , Lymphocytes (%) (Auto) , Monocytes (%) (Auto) , Eosinophils (%) (Auto) , Basophils (%) (Auto) , Differential Total Cells Counted 100, Neutrophils % ( Manual) 60, Lymphocytes % (Manual) 27, Monocytes % (Manual) 11H, Eosinophils % ( Manual) 0, Basophils % (Manual) 1, Band Neutrophils 1, Nucleated Red Blood Cells 18, Platelet Estimate IncreasedH, Platelet Morphology Normal, Polychromasia 2+, Hypochromasia 1+, Anisocytosis 2+, Target Cells 2+, Sodium Level 140, Potassium Level 4.0, Chloride Level 103, Carbon Dioxide Level 28, Anion Gap 9, Blood Urea Nitrogen 8, Creatinine 0.7, Estimat Glomerular Filtration Rate > 60, Glucose Level 98, Calcium Level 9.2, Total Bilirubin 1.3H , Direct Bilirubin 0.3, Aspartate Amino Transf (AST/SGOT) 35, Alanine Aminotransferase (ALT/SGPT) 94H, Alkaline Phosphatase 96, Lactate Dehydrogenase 183, Total Protein 8.4H, Albumin 3.8, Globulin 4.6, Albumin/Globulin Ratio 0.8L Height (Feet): 5 Height (Inches): 6.00 Weight (Pounds): 250 Objective PHYSICAL EXAMINATION: VITAL SIGNS: have been reviewed HEENT: PERRLA. NECK: Supple. No lymphadenopathy. CHEST: Clear to auscultation CARDIOVASCULAR: Regular rate and rhythm. No murmurs or extra sounds. ABDOMEN: Soft, nontender, nondistended. No organomegaly. EXTREMITIES: No edema. Moves all four extremities. NEUROLOGIC: Sensory intact to touch. Reflexes are equal on both sides. Lewis Olmedo MD Nov 01, 2018 17:59
--- NOTE | 2018-11-01 19:40 | NUR ---
NURSE NOTES: Seen pt for initial rounding. Pt sitting up in bed, AAOX4. Appears restless and wants to check how soon is the next pain meds prn available. Will f/u pain meds schedule. resp even, no apparent distress noted. IVF infusing well to right chest Port intact/clean. Call light w/in reach.
--- NOTE | 2018-11-01 19:51 | NUR ---
HAND-OFF: Report given to EDU Pat.
[2018-11-01 20:00] VITALS: BP 129/62
--- NOTE | 2018-11-01 21:55 | General Progress Note ---
Assessment/Plan Problem List: (1) Sickle cell disease ICD Codes: D57.1 - Sickle-cell disease without crisis SNOMED: 885858661 (2) Knee pain, bilateral ICD Codes: M25.561 - Pain in right knee; M25.562 - Pain in left knee SNOMED: 67459156 (3) Sickle cell crisis ICD Codes: D57.00 - Hb-SS disease with crisis, unspecified SNOMED: 301004431 (4) Anemia ICD Codes: D64.9 - Anemia, unspecified SNOMED: 130024035 Qualifiers: Qualified Codes: D64.9 - Anemia, unspecified Status: progressing Assessment/Plan sickle cell crisis is improving anemia afebrile Subjective ROS Limited/Unobtainable: Yes Allergies: Coded Allergies: CAPSAICIN (Verified Allergy, Unknown, 09/21/18) CEFTRIAXONE (Verified Allergy, Unknown, 04/20/16) Uncoded Allergies: CONTRAST (Adverse Reaction, Severe, Rash, 06/23/16) RADIOCONTRAST - RASH, ITCHING Objective Last 24 Hour Vital Signs Date Time Temp Pulse Resp B/P (MAP) Pulse Ox O2 Delivery O2 Flow Rate FiO2 11/01/18 20:44 73 16 97 Room Air 21 11/01/18 20:43 73 16 97 Room Air 21 11/01/18 20:39 Room Air 11/01/18 20:00 96.1 98 20 129/62 (84) 98 11/01/18 17:43 98.8 11/01/18 16:00 98.8 58 18 119/69 (86) 99 11/01/18 12:00 98.6 56 18 138/70 (92) 99 11/01/18 10:03 98.7 11/01/18 09:23 98.7 11/01/18 09:00 Room Air 11/01/18 08:05 62 16 98 Room Air 21 11/01/18 08:03 60 16 98 Room Air 21 11/01/18 08:00 97.9 57 18 128/81 (97) 98 11/01/18 04:00 98.7 52 17 147/86 (106) 98 11/01/18 00:00 99.1 69 17 129/66 (87) 97 Intake and Output 10/31/18 11/01/18 19:00 07:00 Intake Total 880 ml 930 ml Output Total 300 ml 2400 ml Balance 580 ml -1470 ml Intake Oral 880 ml 780 ml IV Total 150 ml Output Urine Total 300 ml 2400 ml # Voids 3 3 Laboratory Tests 11/01/18 16:00: White Blood Count 17.4H, Red Blood Count 3.56L, Hemoglobin 9.9L, Hematocrit 31.2L, Mean Corpuscular Volume 88, Mean Corpuscular Hemoglobin 27.8, Mean Corpuscular Hemoglobin Concent 31.7L, Red Cell Distribution Width 15.6H, Platelet Count 512H, Mean Platelet Volume 5.7L, Neutrophils (%) (Auto) , Lymphocytes (%) (Auto) , Monocytes (%) (Auto) , Eosinophils (%) (Auto) , Basophils (%) (Auto) , Differential Total Cells Counted 100, Neutrophils % ( Manual) 60, Lymphocytes % (Manual) 27, Monocytes % (Manual) 11H, Eosinophils % ( Manual) 0, Basophils % (Manual) 1, Band Neutrophils 1, Nucleated Red Blood Cells 18, Platelet Estimate IncreasedH, Platelet Morphology Normal, Polychromasia 2+, Hypochromasia 1+, Anisocytosis 2+, Target Cells 2+, Sodium Level 140, Potassium Level 4.0, Chloride Level 103, Carbon Dioxide Level 28, Anion Gap 9, Blood Urea Nitrogen 8, Creatinine 0.7, Estimat Glomerular Filtration Rate > 60, Glucose Level 98, Calcium Level 9.2, Total Bilirubin 1.3H , Direct Bilirubin 0.3, Aspartate Amino Transf (AST/SGOT) 35, Alanine Aminotransferase (ALT/SGPT) 94H, Alkaline Phosphatase 96, Lactate Dehydrogenase 183, Total Protein 8.4H, Albumin 3.8, Globulin 4.6, Albumin/Globulin Ratio 0.8L Height (Feet): 5 Height (Inches): 6.00 Weight (Pounds): 250 Neck: supple Cardiovascular: regular rhythm Respiratory/Chest: lungs clear Abdomen: soft Tevin Weiner MD Nov 01, 2018 21:55
[2018-11-02] VITALS: BP 127/63
[2018-11-02] MEDS: HYDROmorphone 1mg/ml Carpuject IVP PRN ×3 (02:37→08:37)
[2018-11-02 04:00] VITALS: BP 116/64
--- NOTE | 2018-11-02 07:30 | NUR ---
HAND-OFF: Report given to Bello.
--- NOTE | 2018-11-02 07:35 | NUR ---
NURSE NOTES: Patient lying in bed awake. Complain of moderate pain and will administer pain medication. Skin intact and dry. Port-a-cath dressing intact and dry. IV fluid on going as ordered. Bed lowest position. Call light within reach. Will continue to monitor.
[2018-11-02 07:47] LABS: BASOPHILS % (AUTO) 1.2 % (0.0-2.0); EOSINOPHILS % (AUTO) 0.7 % (0.0-3.0); HEMOGLOBIN 8.8 G/DL (14.2-18.0); LYMPHOCYTES % (AUTO) 38.1 % (20.0-45.0); MEAN CORPUSCULAR VOLUME 88 FL (80-99); MONOCYTES % (AUTO) 7.8 % (1.0-10.0); NEUTROPHILS % (AUTO) 52.2 % (45.0-75.0); PLATELET COUNT 439 K/UL (150-450); RED BLOOD COUNT 3.19 M/UL (4.70-6.10); RED CELL DISTRIBUTION WIDTH 16.2 % (11.6-14.8); WHITE BLOOD COUNT 13.3 K/UL (4.8-10.8)
[2018-11-02 08:00] VITALS: BP 125/85
--- NOTE | 2018-11-02 08:15 | NUR ---
NURSE NOTES: Spoke to regarding WBC level and discharge. New orderer received. Order read back and carried out.
[2018-11-02] MEDS: Hydroxyurea 500mg cap ORAL SCH (08:36)
[2018-11-02] MEDS: Aspirin Baby 81mg ORAL SCH (08:36)
[2018-11-02] MEDS: Wixela 100/50 Inhaler - 60 dose INH SCH (08:42)
[2018-11-02] MEDS: oxyCONTIN 20mg tab ORAL SCH (08:44)
--- NOTE | 2018-11-02 09:11 | NUR ---
CASE MANAGEMENT:REVIEW 11/02/18 SI: SICKLE CELL CRISIS. ANEMIA 97.9 65 20 125/85 99% ON RA WBC+13.3 H/H-8.8/28.0 IS: IVF @ 150/HR ADVAIR INH Q12 ASA PO QD FOLATE PO QD HYDREA PO QD OXYCONTIN PO Q12 IV DILAUDID Q2HRS PRN : MED/SURG STATUS 3EAST DCP: FROM HOME PLAN: DISCHARGE HOME IF CLEARED BY LOADING UNIT OPERATOR SEATING
--- NOTE | 2018-11-02 09:40 | NUR ---
NURSE NOTES: Spoke to regarding discharge. New order received. Order read back and carried out.
--- NOTE | 2018-11-02 09:51 | General Progress Note ---
Assessment/Plan Problem List: (1) Sickle cell disease ICD Codes: D57.1 - Sickle-cell disease without crisis SNOMED: 084812973 (2) Knee pain, bilateral ICD Codes: M25.561 - Pain in right knee; M25.562 - Pain in left knee SNOMED: 63441064 (3) Sickle cell crisis ICD Codes: D57.00 - Hb-SS disease with crisis, unspecified SNOMED: 990636399 (4) Anemia ICD Codes: D64.9 - Anemia, unspecified SNOMED: 013892312 Qualifiers: Qualified Codes: D64.9 - Anemia, unspecified Status: progressing Assessment/Plan sickle cell crisis is improving anemia cleared by dr billy so will dc today Subjective ROS Limited/Unobtainable: Yes Allergies: Coded Allergies: CAPSAICIN (Verified Allergy, Unknown, 09/21/18) CEFTRIAXONE (Verified Allergy, Unknown, 04/20/16) Uncoded Allergies: CONTRAST (Adverse Reaction, Severe, Rash, 06/23/16) RADIOCONTRAST - RASH, ITCHING Objective Last 24 Hour Vital Signs Date Time Temp Pulse Resp B/P (MAP) Pulse Ox O2 Delivery O2 Flow Rate FiO2 11/02/18 08:43 67 19 97 Room Air 21 11/02/18 08:42 67 19 97 Room Air 21 11/02/18 08:00 97.9 65 20 125/85 (98) 99 11/02/18 04:00 97.9 53 18 116/64 (81) 11/02/18 00:00 98.4 81 18 127/63 (84) 94 11/01/18 20:44 73 16 97 Room Air 21 11/01/18 20:43 73 16 97 Room Air 21 11/01/18 20:39 Room Air 11/01/18 20:00 96.1 98 20 129/62 (84) 98 11/01/18 17:43 98.8 11/01/18 16:00 98.8 58 18 119/69 (86) 99 11/01/18 12:00 98.6 56 18 138/70 (92) 99 11/01/18 10:03 98.7 Intake and Output 11/01/18 11/02/18 18:59 06:59 Intake Total 3650 ml 1650 ml Output Total 1350 ml Balance 3650 ml 300 ml Intake Oral 2000 ml IV Total 1650 ml 1650 ml Output Urine Total 1350 ml # Voids 2 Laboratory Tests 11/01/18 16:00: White Blood Count 17.4H, Red Blood Count 3.56L, Hemoglobin 9.9L, Hematocrit 31.2L, Mean Corpuscular Volume 88, Mean Corpuscular Hemoglobin 27.8, Mean Corpuscular Hemoglobin Concent 31.7L, Red Cell Distribution Width 15.6H, Platelet Count 512H, Mean Platelet Volume 5.7L, Neutrophils (%) (Auto) , Lymphocytes (%) (Auto) , Monocytes (%) (Auto) , Eosinophils (%) (Auto) , Basophils (%) (Auto) , Differential Total Cells Counted 100, Neutrophils % ( Manual) 60, Lymphocytes % (Manual) 27, Monocytes % (Manual) 11H, Eosinophils % ( Manual) 0, Basophils % (Manual) 1, Band Neutrophils 1, Nucleated Red Blood Cells 18, Platelet Estimate IncreasedH, Platelet Morphology Normal, Polychromasia 2+, Hypochromasia 1+, Anisocytosis 2+, Target Cells 2+, Sodium Level 140, Potassium Level 4.0, Chloride Level 103, Carbon Dioxide Level 28, Anion Gap 9, Blood Urea Nitrogen 8, Creatinine 0.7, Estimat Glomerular Filtration Rate > 60, Glucose Level 98, Calcium Level 9.2, Total Bilirubin 1.3H , Direct Bilirubin 0.3, Aspartate Amino Transf (AST/SGOT) 35, Alanine Aminotransferase (ALT/SGPT) 94H, Alkaline Phosphatase 96, Lactate Dehydrogenase 183, Total Protein 8.4H, Albumin 3.8, Globulin 4.6, Albumin/Globulin Ratio 0.8L 11/02/18 05:20: White Blood Count 13.3H, Red Blood Count 3.19L, Hemoglobin 8.8L, Hematocrit 28.0L, Mean Corpuscular Volume 88, Mean Corpuscular Hemoglobin 27.6, Mean Corpuscular Hemoglobin Concent 31.5L, Red Cell Distribution Width 16.2H, Platelet Count 439, Mean Platelet Volume 6.3L, Neutrophils (%) (Auto) 52.2, Lymphocytes (%) (Auto) 38.1, Monocytes (%) (Auto) 7.8, Eosinophils (%) (Auto) 0.7, Basophils (%) (Auto) 1.2 Height (Feet): 5 Height (Inches): 6.00 Weight (Pounds): 250 Cardiovascular: normal rate Respiratory/Chest: lungs clear Abdomen: soft Tevin Weiner MD Nov 02, 2018 09:51
--- NOTE | 2018-11-02 11:45 | NUR ---
NURSE NOTES: Patient discharged in stable condition. Discharge instruction given to patient and verbalized understanding. Belonging and home medications given to patient. IV and ID removed. Patient ambulated out with all personal belongings with steady gait.
--- NOTE | 2018-11-02 15:22 | General Progress Note ---
Assessment/Plan Assessment/Plan ASSESSMENT AND PLAN: 1. 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 --> Presented in sickle crisis. on hydrea, opioids --> retic daily on a prn basis, proper response shown --> cbc has been reviewed --> continue hydrea 3500mg po daily --> continue indiral powder adjunct medication --> appreciate pain management recs --> stable for dc --> return precautions given 2. Anemia, secondary to sickle cell disease/B thalassemia --> trend hgb 10-->8.8 --> retic and ldh daily 3. Thrombocytosis, potentially secondary to reactive process --> 616k -->512k 4. Hyperproteinemia --> spep reviewed last admission 5. Leukocytosis could be related to infection --> monitor for fever, if recurrent, obtain w/i The timing of this note does not necessarily reflect the time of the patient was seen. Greatly appreciate consultation! Subjective Constitutional: Denies: no symptoms, chills, diaphoresis, fever, malaise, weakness, other HEENT: Denies: no symptoms, eye pain, blurred vision, tearing, double vision, ear pain, ear discharge, nose pain, nose congestion, throat pain, throat swelling, mouth pain, mouth swelling, other Cardiovascular: Denies: no symptoms, chest pain, edema, irregular heart rate, lightheadedness, palpitations, syncope, other Respiratory: Denies: no symptoms, cough, orthopnea, shortness of breath, SOB with excertion, SOB at rest, sputum, stridor, wheezing, other Gastrointestinal/Abdominal: Denies: no symptoms, abdomen distended, abdominal pain, black stools, tarry stools, blood in stool, constipated, diarrhea, difficulty swallowing, nausea, poor appetite, poor fluid intake, rectal bleeding , vomiting, other Genitourinary: Denies: no symptoms, burning, discharge, frequency, flank pain, hematuria, incontinence, pain, urgency, other Endocrine: Denies: no symptoms, excessive sweating, flushing, intolerance to cold, intolerance to heat, increased hunger, increased thirst, increased urine, unexplained weight gain, unexplained weight loss, other Allergies: Coded Allergies: CAPSAICIN (Verified Allergy, Unknown, 09/21/18) CEFTRIAXONE (Verified Allergy, Unknown, 04/20/16) Uncoded Allergies: CONTRAST (Adverse Reaction, Severe, Rash, 06/23/16) RADIOCONTRAST - RASH, ITCHING Subjective 11/01: wbc obtained late in the day, was elevated, consider dc tomorrow am after wbc lower, r/o infection 11/02: saw patient in the am, looking better, on ivf, stable for dc Objective Last 24 Hour Vital Signs Date Time Temp Pulse Resp B/P (MAP) Pulse Ox O2 Delivery O2 Flow Rate FiO2 11/02/18 09:00 Room Air 11/02/18 08:43 67 19 97 Room Air 21 11/02/18 08:42 67 19 97 Room Air 21 11/02/18 08:00 97.9 65 20 125/85 (98) 99 11/02/18 04:00 97.9 53 18 116/64 (81) 11/02/18 00:00 98.4 81 18 127/63 (84) 94 11/01/18 20:44 73 16 97 Room Air 21 11/01/18 20:43 73 16 97 Room Air 21 11/01/18 20:39 Room Air 11/01/18 20:00 96.1 98 20 129/62 (84) 98 11/01/18 17:43 98.8 11/01/18 16:00 98.8 58 18 119/69 (86) 99 Intake and Output 11/01/18 11/02/18 19:00 07:00 Intake Total 3650 ml 1650 ml Output Total 1350 ml Balance 3650 ml 300 ml Intake Oral 2000 ml IV Total 1650 ml 1650 ml Output Urine Total 1350 ml # Voids 2 Laboratory Tests 11/01/18 16:00: White Blood Count 17.4H, Red Blood Count 3.56L, Hemoglobin 9.9L, Hematocrit 31.2L, Mean Corpuscular Volume 88, Mean Corpuscular Hemoglobin 27.8, Mean Corpuscular Hemoglobin Concent 31.7L, Red Cell Distribution Width 15.6H, Platelet Count 512H, Mean Platelet Volume 5.7L, Neutrophils (%) (Auto) , Lymphocytes (%) (Auto) , Monocytes (%) (Auto) , Eosinophils (%) (Auto) , Basophils (%) (Auto) , Differential Total Cells Counted 100, Neutrophils % ( Manual) 60, Lymphocytes % (Manual) 27, Monocytes % (Manual) 11H, Eosinophils % ( Manual) 0, Basophils % (Manual) 1, Band Neutrophils 1, Nucleated Red Blood Cells 18, Platelet Estimate IncreasedH, Platelet Morphology Normal, Polychromasia 2+, Hypochromasia 1+, Anisocytosis 2+, Target Cells 2+, Sodium Level 140, Potassium Level 4.0, Chloride Level 103, Carbon Dioxide Level 28, Anion Gap 9, Blood Urea Nitrogen 8, Creatinine 0.7, Estimat Glomerular Filtration Rate > 60, Glucose Level 98, Calcium Level 9.2, Total Bilirubin 1.3H , Direct Bilirubin 0.3, Aspartate Amino Transf (AST/SGOT) 35, Alanine Aminotransferase (ALT/SGPT) 94H, Alkaline Phosphatase 96, Lactate Dehydrogenase 183, Total Protein 8.4H, Albumin 3.8, Globulin 4.6, Albumin/Globulin Ratio 0.8L 11/02/18 05:20: White Blood Count 13.3H, Red Blood Count 3.19L, Hemoglobin 8.8L, Hematocrit 28.0L, Mean Corpuscular Volume 88, Mean Corpuscular Hemoglobin 27.6, Mean Corpuscular Hemoglobin Concent 31.5L, Red Cell Distribution Width 16.2H, Platelet Count 439, Mean Platelet Volume 6.3L, Neutrophils (%) (Auto) 52.2, Lymphocytes (%) (Auto) 38.1, Monocytes (%) (Auto) 7.8, Eosinophils (%) (Auto) 0.7, Basophils (%) (Auto) 1.2 Height (Feet): 5 Height (Inches): 6.00 Weight (Pounds): 250 Objective PHYSICAL EXAMINATION: VITAL SIGNS: have been reviewed HEENT: PERRLA. NECK: Supple. No lymphadenopathy. CHEST: Clear to auscultation CARDIOVASCULAR: Regular rate and rhythm. No murmurs or extra sounds. ABDOMEN: Soft, nontender, nondistended. No organomegaly. EXTREMITIES: No edema. Moves all four extremities. NEUROLOGIC: Sensory intact to touch. Reflexes are equal on both sides. Lewis Olmedo MD Nov 02, 2018 15:22
--- NOTE | 2018-11-06 10:56 | Discharge Summary ---
Discharge Summary Discharge Summary _ DATE OF ADMISSION: 10/30/2018 DATE OF DISCHARGE: 11/02/2018 DISCHARGED BY: Dr. Tevin Denis CONSULTANTS: Dr. Lewis Tucker BRIEF HOSPITAL COURSE: Patient is a 22-year-old male, with history of sickle cell ,who presented to ED due to pain. He reported 10/10 pain in bilateral lower extremity as well as bilateral arm and chest pain. He denied fever or chills. He stated he had home pain medications but were not providing any relief. He denied nausea, vomiting, dizziness, cough or recent illness. He reported shortness of breath attributed to his pain. He denied any trauma or fall. He reported increased fatigue. On evaluation at ED, vital signs were stable. Blood work did not show any leukocytosis. Hemoglobin 11, hematocrit 35. Platelet count 616. Reticulocyte count 6.7. Electrolytes were normal. Troponin negative. He had an EKG done that showed normal sinus rhythm with no acute changes. Chest x-ray with low lung volumes, however, no acute disease. He was given IV hydration. He was given Dilaudid for pain. He was then admitted for sickle cell crisis. Pain management was consulted. He was a started on Dilaudid 1 mg IV every 3 hours and OxyContin 12 mg q12 hours [id number]. [employer] was consulted. Patient has HBS beta plus, elevated A2 chain, 70% S chain, HbF<20% and HbA 10-20%. Patient has a mix between sickle cell disease and beta thalassemia. He was continued on Hydrea 3500 mg p.o. daily. He was given folic acid and baby aspirin daily. He had thrombocytosis, potentially secondary to reactive process. Platelet down trended and normalized. Blood counts were monitored. Hemoglobin was low, however he did not require blood transfusion. LDH normal. He was eventually discharged home. FINAL DIAGNOSES: Sickle cell crisis Anemia secondary to sickle cell disease and beta thalassemia Thrombocytosis potentially secondary to reactive process Hyperproteinemia Leukocytosis Bilateral knee pain DISPOSITION: Patient was discharged home. DISCHARGE MEDICATIONS: Refer to Discharge Medication List. DISCHARGE INSTRUCTIONS: Follow-up in a week. I have been assigned to complete a discharge summary on this account, I was not involved with the patient's management. Taylor Garcia NP Nov 06, 2018 10:56
== END 2018-11-02 11:45 | disposition home or self-care (01) | DRG 662 ==
LOC: EMR 17:30 → 3E 19:11 → EDBEDREQ 21:37
DX: D57.419 Sickle-cell thalassemia, unspecified, with crisis (principal); E88.09 Other disorders of plasma-protein metabolism, not elsewhere classified; D47.3 Essential (hemorrhagic) thrombocythemia; M25.562 Pain in left knee; M25.561 Pain in right knee; Z88.8 Allergy status to other drugs, medicaments and biological substances; Z91.041 Radiographic dye allergy status; Z79.82 Long term (current) use of aspirin; J45.909 Unspecified asthma, uncomplicated
CPT/HCPCS: 36415; 71045; 80053; 82248; 82550; 83615; 84484; 85007; 85025; 85044; 85610; 85730; 87081; 93005; 94640; 96361; 96374; 96375; 96376; 99285; J2405

== ENCOUNTER 2018-11-23 17:51 | Inpatient (IN) | payer MEDICAID ==
[~2018-11-23] VITALS: Ht 167.6 cm; Wt 113.1 kg
[2018-11-23 18:32] VITALS: BP 126/77
--- NOTE | 2018-11-23 18:34 | NUR ---
ED Nurse Note: pt walked in to ER c/o sickled cell crisis with general body pain 04/17. pt is ambulatory and aao x4. skin clean and intact but swalloen and pale.
[2018-11-23] MEDS ORDERED: HYDROmorphone 1mg/ml Carpuject IVP ONE ×2 (18:45→20:00)
--- NOTE | 2018-11-23 19:00 | NUR ---
HAND-OFF: Report given to EDU Rush. No new order to carry at this moment.
--- NOTE | 2018-11-23 19:01 | NUR ---
ED Nurse Note: 22G of Port-a-cath needle inserted. blood sent to lab. was able to flush 10 cc of NS.
[2018-11-23 19:11] LABS: HEMATOCRIT 31.9 % (42.0-52.0); MEAN CORPUSCULAR VOLUME 85 FL (80-99); PLATELET COUNT 607 K/UL (150-450); RED BLOOD COUNT 3.73 M/UL (4.70-6.10); RED CELL DISTRIBUTION WIDTH 18.7 % (11.6-14.8); WHITE BLOOD COUNT 19.2 K/UL (4.8-10.8)
[2018-11-23 19:23] LABS: ANION GAP 11 mmol/L (5-15); BLOOD UREA NITROGEN 5 mg/dL (7-18); CALCIUM 9.2 MG/DL (8.5-10.1); CARBON DIOXIDE 27 MMOL/L (21-32); CHLORIDE 101 MMOL/L (98-107); CREATININE 0.6 MG/DL (0.55-1.30); POTASSIUM 3.7 MMOL/L (3.5-5.1); SODIUM 139 MMOL/L (136-145)
[2018-11-23 19:30] LABS: CREATINE KINASE 32 U/L (26-308)
--- NOTE | 2018-11-23 19:32 | Emergency Room Report ---
History of Present Illness General Chief Complaint: Pain Present Illness HPI 22-year-old male presents to the emergency department complaining of 9 out of 10 in severity pain primarily in the bilateral lower extremities. Patient has a history of sickle cell he states that his symptoms are consistent with when he experiences a sickle cell crisis. Patient also is noted to have beta thalassemia and on multiple previous ER visits he does on occasion require blood transfusion for anemia. Patient states that he is been taking oral medications at home with no relief he states his symptoms are exacerbated even at sitting so he denies any relieving factors at this time. Patient denies fevers or chills he denies cough he reports some chest pain and states that he has shortness of breath due to the pain. Patient denies wheezing, or dizziness. He denies syncope or near syncope. (Jacqueline Zavala) Allergies: Coded Allergies: CAPSAICIN (Verified Allergy, Unknown, 11/23/18) CEFTRIAXONE (Verified Allergy, Unknown, 11/23/18) Uncoded Allergies: CONTRAST (Adverse Reaction, Severe, Rash, 06/23/16) RADIOCONTRAST - RASH, ITCHING Patient History Past Medical History: see triage record, old chart reviewed Past Surgical History: none Pertinent Family History: none Reviewed Nursing Documentation: PMH: Agreed; PSxH: Agreed (Jacqueline Zavala) Nursing Documentation-PMH Past Medical History: No History, Except For Hx Cardiac Problems: Yes - Coronary Artery sydrome; SICKLE CELL Hx Hypertension: No - Port-A-Cath Hx Pacemaker: No Hx Asthma: Yes Hx COPD: No Hx Diabetes: No Hx Cancer: No Hx Gastrointestinal Problems: No Hx Dialysis: No Hx Neurological Problems: No Hx Cerebrovascular Accident: No Hx Seizures: No (Jacqueline Zavala) Review of Systems All Other Systems: negative except mentioned in HPI (Jacqueline Zavala) Physical Exam Vital Signs Date Time Temp Pulse Resp B/P (MAP) Pulse Ox O2 Delivery O2 Flow Rate FiO2 11/23/18 18:04 98.4 89 16 126/77 96 Room Air Sp02 EP Interpretation: reviewed, normal General Appearance: no apparent distress, alert, GCS 15, non-toxic Head: normocephalic, atraumatic Eyes: bilateral eye normal inspection, bilateral eye PERRL ENT: hearing 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, normal voice Neck: full range of motion Respiratory: chest non-tender, lungs clear, normal breath sounds, no wheezing, speaking full sentences Cardiovascular #1: regular rate, rhythm, no edema Gastrointestinal: normal bowel sounds, non tender, soft Musculoskeletal: back normal, gait/station normal, normal range of motion, tender - TTP Neurologic: alert, oriented x3, responsive, motor strength/tone normal, sensory intact, speech normal, 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 Psychiatric: judgement/insight normal Skin: normal color, no rash, warm/dry, well hydrated (Jacqueline Zavala) Medical Decision Making PA Attestation Dr. Gonzalez is my supervising Physician whom patient management has been discussed with. (Jacqueline Zavala) Diagnostic Impression: Primary Impression: Sickle cell crisis ER Course 22-year-old male presents to the emergency department complaining of 9 out of 10 in severity pain primarily in the bilateral lower extremities. Patient has a history of sickle cell he states that his symptoms are consistent with when he experiences a sickle cell crisis. Patient also is noted to have beta thalassemia and on multiple previous ER visits he does on occasion require blood transfusion for anemia. Patient states that he is been taking oral medications at home with no relief he states his symptoms are exacerbated even at sitting so he denies any relieving factors at this time. Patient denies fevers or chills he denies cough he reports some chest pain and states that he has shortness of breath due to the pain. Patient denies wheezing, or dizziness. He denies syncope or near syncope. Ddx considered but are not limited to Sickle cell crisis, Infection, Cardiac pathology, ACS, DVT, Fracture, Dislocation Vital signs: are WNL, pt. is afebrile H&PE are most consistent with Sickle cell crisis ORDERS: -CBC w. Diff: Elevated white blood cell count at 19.2 therefore additional labs such as lactic acid, blood cultures, as well as chest x-ray was ordered. -CMP:see results attached. -Reticulocyte count 9.3 ( 04/25/19) -Lactic Acid: 1.9 WNL -CXR: WNL -EK Sinus anibal ED INTERVENTIONS: - 1 liters NS for hydration. - 1mg IV Dilaudid for pain he continues to have pain and is requiring multiple doses of strong opiates pain medications and therefore will be admitted for pain control. DISPOSITION: at this time pt. will be admitted to Dr. Caicedo for Sickle Cell Crisis. Dr. Caicedo agreed to admit the pt. and to continue pt. care management. Laboratory Tests Test 11/25/18 13:15 11/26/18 06:00 11/26/18 10:08 11/27/18 04:20 White Blood Count 12.1 K/UL (4.8-10.8) H 15.5 K/UL (4.8-10.8) H 24.2 K/UL (4.8-10.8) #*H Red Blood Count 3.42 M/UL (4.70-6.10) L 3.34 M/UL (4.70-6.10) L 3.51 M/UL (4.70-6.10) L Hemoglobin 9.3 G/DL (14.2-18.0) L 9.0 G/DL (14.2-18.0) L 9.4 G/DL (14.2-18.0) L Hematocrit 29.5 % (42.0-52.0) L 28.7 % (42.0-52.0) L 30.2 % (42.0-52.0) L Mean Corpuscular Volume 86 FL (80-99) 86 FL (80-99) 86 FL (80-99) Mean Corpuscular Hemoglobin 27.3 PG (27.0-31.0) 27.0 PG (27.0-31.0) 26.9 PG (27.0-31.0) L Mean Corpuscular Hemoglobin Concent 31.6 G/DL (32.0-36.0) L 31.4 G/DL (32.0-36.0) L 31.3 G/DL (32.0-36.0) L Red Cell Distribution Width 17.8 % (11.6-14.8) H 17.6 % (11.6-14.8) H 17.8 % (11.6-14.8) H Platelet Count 581 K/UL (150-450) H 541 K/UL (150-450) H 557 K/UL (150-450) H Mean Platelet Volume 6.2 FL (6.5-10.1) L 6.5 FL (6.5-10.1) 6.0 FL (6.5-10.1) L Neutrophils (%) (Auto) 63.8 % (45.0-75.0) 64.4 % (45.0-75.0) % (45.0-75.0) Lymphocytes (%) (Auto) 28.4 % (20.0-45.0) 29.1 % (20.0-45.0) % (20.0-45.0) Monocytes (%) (Auto) 6.3 % (1.0-10.0) 4.9 % (1.0-10.0) % (1.0-10.0) Eosinophils (%) (Auto) 0.7 % (0.0-3.0) 0.8 % (0.0-3.0) % (0.0-3.0) Basophils (%) (Auto) 0.8 % (0.0-2.0) 0.7 % (0.0-2.0) % (0.0-2.0) Sodium Level 134 MMOL/L (136-145) L 140 MMOL/L (136-145) 139 MMOL/L (136-145) Potassium Level 3.4 MMOL/L (3.5-5.1) L 4.1 MMOL/L (3.5-5.1) 3.7 MMOL/L (3.5-5.1) Chloride Level 101 MMOL/L (98-107) 102 MMOL/L (98-107) 102 MMOL/L (98-107) Carbon Dioxide Level 29 MMOL/L (21-32) 28 MMOL/L (21-32) 28 MMOL/L (21-32) Anion Gap 4 mmol/L (5-15) L 10 mmol/L (5-15) 9 mmol/L (5-15) Blood Urea Nitrogen 6 mg/dL (7-18) L 5 mg/dL (7-18) L 5 mg/dL (7-18) L Creatinine 0.5 MG/DL (0.55-1.30) L 0.5 MG/DL (0.55-1.30) L 0.6 MG/DL (0.55-1.30) Estimate Glomerular Filtration Rate > 60 mL/min (>60) > 60 mL/min (>60) > 60 mL/min (>60) Glucose Level 116 MG/DL (74-106) H 93 MG/DL (74-106) 89 MG/DL (74-106) Calcium Level 9.1 MG/DL (8.5-10.1) 9.1 MG/DL (8.5-10.1) 8.7 MG/DL (8.5-10.1) Lactate Dehydrogenase 222 U/L (81-234) 197 U/L (81-234) Troponin I 0.000 ng/mL (0.000-0.056) Differential Total Cells Counted 100 Neutrophils % (Manual) 45 % (45-75) Lymphocytes % (Manual) 48 % (20-45) H Monocytes % (Manual) 5 % (1-10) Eosinophils % (Manual) 0 % (0-3) Basophils % (Manual) 1 % (0-2) Band Neutrophils 1 % (0-8) Nucleated Red Blood Cells 13 /100 WBC Platelet Estimate Increased H Platelet Morphology Normal Polychromasia 1+ Basophilic Stippling 1+ Anisocytosis 2+ Target Cells 2+ (Jacqueline Zavala) ER Course Please see above note. Patient still with pain. Leukocytosis without source (probably due to sickle cell). Lactate normal. Antibiotics not indicated. Admit med. Contact Dr. Bearden for admission. Laboratory Tests Test 11/23/18 19:00 11/23/18 19:20 White Blood Count 19.2 K/UL (4.8-10.8) H Red Blood Count 3.73 M/UL (4.70-6.10) L Hemoglobin 10.0 G/DL (14.2-18.0) L Hematocrit 31.9 % (42.0-52.0) L Mean Corpuscular Volume 85 FL (80-99) Mean Corpuscular Hemoglobin 26.7 PG (27.0-31.0) L Mean Corpuscular Hemoglobin Concent 31.3 G/DL (32.0-36.0) L Red Cell Distribution Width 18.7 % (11.6-14.8) H Platelet Count 607 K/UL (150-450) H Mean Platelet Volume 5.4 FL (6.5-10.1) L Neutrophils (%) (Auto) % (45.0-75.0) Lymphocytes (%) (Auto) % (20.0-45.0) Monocytes (%) (Auto) % (1.0-10.0) Eosinophils (%) (Auto) % (0.0-3.0) Basophils (%) (Auto) % (0.0-2.0) Neutrophils % (Manual) Pending Lymphocytes % (Manual) Pending Platelet Estimate Pending Platelet Morphology Pending Reticulocyte Count 9.3 % (0.0-2.0) H Sodium Level 139 MMOL/L (136-145) Potassium Level 3.7 MMOL/L (3.5-5.1) Chloride Level 101 MMOL/L (98-107) Carbon Dioxide Level 27 MMOL/L (21-32) Anion Gap 11 mmol/L (5-15) Blood Urea Nitrogen 5 mg/dL (7-18) L Creatinine 0.6 MG/DL (0.55-1.30) Estimate Glomerular Filtration Rate > 60 mL/min (>60) Glucose Level 116 MG/DL (74-106) H Calcium Level 9.2 MG/DL (8.5-10.1) Total Bilirubin 1.1 MG/DL (0.2-1.0) H Direct Bilirubin 0.3 MG/DL (0.0-0.3) Aspartate Amino Transferase (AST) 49 U/L (15-37) H Alanine Aminotransferase (ALT) 81 U/L (12-78) H Alkaline Phosphatase 102 U/L (46-116) Total Creatine Kinase 32 U/L (26-308) Total Protein 8.8 G/DL (6.4-8.2) H Albumin 4.0 G/DL (3.4-5.0) Globulin 4.8 g/dL Albumin/Globulin Ratio 0.8 (1.0-2.7) L Lactic Acid Level Pending (Yasmany Gonzalez MD) EKG Diagnostic Results EP Interpretation: Dr. Gonzalez Rate: normal Rhythm: NSR - 59bpm ST Segments: no acute changes ASA given to the pt in ED: No PA Scribe Text This Interpretation was scribed by JUAN A Zavala. (Jacqueline Zavala) Chest X-Ray Diagnostic Results Chest X-Ray Diagnostic Results : Chest X-Ray Ordered: Yes # of Views/Limited/Complete: 1 View Indication: Shortness of Breath EP Interpretation: Yes PA Xray: Interpretation reviewed, by supervising MD, and agrees with findings. Interpretation: no consolidation, no effusion, no pneumothorax, no acute cardiopulmonary disease Impression: No acute disease Electronically Signed by: Jacqueline Zavala PA-C (Jacqueline Zavala) Chest X-Ray Diagnostic Results : Chest X-Ray Ordered: Yes # of Views/Limited/Complete: 1 View Indication: Other EP Interpretation: Yes Interpretation: no consolidation, no effusion, no pneumothorax, other - portacath Impression: Other Electronically Signed by: Electronically signed by Yasmany Gonzalez MD (Yasmany Gonzalez MD) Last Vital Signs Date Time Temp Pulse Resp B/P (MAP) Pulse Ox O2 Delivery O2 Flow Rate FiO2 11/23/18 18:32 98.4 75 16 126/77 96 Room Air (Jacqueline Zavala) Last Vital Signs Date Time Temp Pulse Resp B/P (MAP) Pulse Ox O2 Delivery O2 Flow Rate FiO2 11/23/18 23:56 Room Air 11/23/18 21:41 99.0 62 18 142/91 (108) 95 Status: improved (Yasmany Gonzalez MD) Disposition: ADMITTED INPATIENT Condition: Serious Signed Out To: Dr. Gonzalez (Jacqueline Zavala) Referrals: Kerline Davenport MD (PCP) Jacqueline Zavala Nov 23, 2018 19:32 Yasmany Gonzalez MD Nov 23, 2018 20:29
[2018-11-23 19:41] LABS: ALANINE AMINOTRANSFERASE 81 U/L (12-78); ALBUMIN/GLOBULIN RATIO 0.8 (1.0-2.7); ALKALINE PHOSPHATASE 102 U/L (46-116); ASPARTATE AMINO TRANSFERASE 49 U/L (15-37); BILIRUBIN,TOTAL 1.1 MG/DL (0.2-1.0)
[2018-11-23 19:43] LABS: BILIRUBIN,DIRECT 0.3 MG/DL (0.0-0.3)
[2018-11-23] MEDS ORDERED: DiphenhydrAMINE 50mg/ml Inj IVP ONE (20:00)
--- NOTE | 2018-11-23 20:50 | NUR ---
ED Nurse Note: telephone report given to EDU Bragg.
--- NOTE | 2018-11-23 21:18 | NUR ---
TRANSFER TO FLOOR: Patient transferred to $419-2 as ordered via gurgagandeep with CHARLOTTE Morrissey tech. Report given to EDU Johansen. Belongings and meds given to pt. No s/s of distress.
--- NOTE | 2018-11-23 21:36 | NUR ---
NURSE NOTES: Pt is transferred from ER with Dx of sickle cell crisis in stable condition under Dr. Bearden. Report received from MERRY Giron RN. Vitals stable on room air. Reports pain 9/10 on bilat lower extremities. Pt oriented to the unit. Pt's belongings verified with patient, Pt refused to send belongings for safekeeping and signed henry portion of belonging sheet. Bed locked low in position,side rails up and call light within reach. Dr. bearden called for admission orders, awaiting call back.
[2018-11-23 21:41] VITALS: BP 142/91
[2018-11-23] MEDS ORDERED: Mylanta II UD 30ml ORAL PRN (22:00)
[2018-11-23] MEDS ORDERED: LORazepam Inj 2mg/ml 1ml IV PRN (22:00)
[2018-11-23] MEDS ORDERED: Miralax 17gm pkt ORAL PRN (22:00)
--- NOTE | 2018-11-23 22:00 | NUR ---
NURSE NOTES: Dr. Caicedo entered admission orders, orders acknowledged.
[2018-11-23] MEDS: Zolpidem 5mg tab ORAL PRN (22:07)
[2018-11-23] MEDS ORDERED: HYDROXYUREA500 M1 PO (23:42)
[2018-11-24] VITALS: BP 128/87
[2018-11-24] MEDS ORDERED: Wixela 100/50 Inhaler - 60 dose INH PRN
--- NOTE | 2018-11-24 03:52 | NUR ---
NURSE NOTES: Pt is asleep in bed, No acute distress noted. 1/2NS running at 75ml/hr.
[2018-11-24 06:35] LABS: HEMATOCRIT 29.1 % (42.0-52.0); HEMOGLOBIN 9.2 G/DL (14.2-18.0); MEAN CORPUSCULAR VOLUME 88 FL (80-99); PLATELET COUNT 534 K/UL (150-450); RED BLOOD COUNT 3.33 M/UL (4.70-6.10); RED CELL DISTRIBUTION WIDTH 19.1 % (11.6-14.8); WHITE BLOOD COUNT 21.7 K/UL (4.8-10.8)
[2018-11-24 06:46] LABS: ALANINE AMINOTRANSFERASE 71 U/L (12-78); ALBUMIN 3.5 G/DL (3.4-5.0); ALBUMIN/GLOBULIN RATIO 0.8 (1.0-2.7); ALKALINE PHOSPHATASE 90 U/L (46-116); ANION GAP 8 mmol/L (5-15); ASPARTATE AMINO TRANSFERASE 34 U/L (15-37); BILIRUBIN,TOTAL 1.2 MG/DL (0.2-1.0); BLOOD UREA NITROGEN 10 mg/dL (7-18); CALCIUM 9.1 MG/DL (8.5-10.1); CARBON DIOXIDE 29 MMOL/L (21-32); CHLORIDE 103 MMOL/L (98-107); CREATININE 0.6 MG/DL (0.55-1.30); LACTATE DEHYDROGENASE 215 U/L (81-234); POTASSIUM 3.3 MMOL/L (3.5-5.1); SODIUM 140 MMOL/L (136-145)
[2018-11-24 06:53] LABS: BILIRUBIN,DIRECT 0.2 MG/DL (0.0-0.3)
--- NOTE | 2018-11-24 07:15 | NUR ---
HAND-OFF: Report given to Buffy Anthony RN. Pt is in bed, awake and alert. No acute distress noted.
[2018-11-24 08:00] VITALS: BP 123/72
--- NOTE | 2018-11-24 08:00 | NUR ---
NURSE NOTES: RECEIVED PATIENT IN BED, RESTING AND ALERT x4. NO SIGNS OF RESPIRATORY DISTRESS, PATIENT ON ROOM AIR. COTY CATH INTACT. BED IN LOWEST POSITION, CALL LIGHT WITHIN REACH. WILL CONTINUE TO MONITOR.
[2018-11-24] MEDS: Aspirin Baby 81mg ORAL SCH (08:32)
[2018-11-24] MEDS: Hydroxyurea 500mg cap ORAL SCH (08:32)
[2018-11-24] MEDS: Heparin 5000 units/ml inj SUBQ SCH ×2 (08:54→21:00)
--- NOTE | 2018-11-24 09:53 | NUR ---
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 RBC 3.73, Hgb 10.0, Hct 31.9, BUN 5 IS:NS x1L IV DILAUDID 1mg IVP ZOFRAN 4mg IVP ADMITTED TO MED/SURG DCP: RETURN HOME
[2018-11-24] MEDS: Wixela 100/50 Inhaler - 60 dose INH SCH ×2 (10:31→19:47)
[2018-11-24 12:00] VITALS: BP 136/64
--- NOTE | 2018-11-24 12:45 | Diagnostic Imaging Report ---
Indication: Chest pain Comparison: 10/30/2018 Technique: Portable frontal view of the chest Findings: Right chest wall Mediport unchanged in position. The port is currently accessed with a Lawler needle. Stable cardiomegaly. Mediastinal contours are sharp. There is mild prominence of the pulmonary vascularity. There is no pleural effusion or pneumothorax. No definite focal airspace consolidation. Scoliosis is noted which may in part be positional. IMPRESSION: Cardiomegaly with slight prominence of the pulmonary vascularity which may be related to low lung volumes. Correlate clinically to exclude mild congestive changes. No definite focal airspace consolidation, pleural effusion or pneumothorax. Right chest wall Mediport in place.
--- NOTE | 2018-11-24 13:32 | Cardiology Report ---
APPROVED REPORT EKG Measurement Heart [id number] Sinus bradycardia with sinus arrhythmia Otherwise normal ECG
[2018-11-24 16:00] VITALS: BP 126/66
--- NOTE | 2018-11-24 19:22 | NUR ---
HAND-OFF: Report given to EDU MERLOS.
--- NOTE | 2018-11-24 19:30 | NUR ---
NURSE NOTES: Patient received in bed, awake and alert. R chest portacath running 75cc/hr, changed to 150cc/hr as ordered by MD. Pt c/o pain 03/17, will medicate as prescribed. R chest portacath noted without biopatch. Will change dressing tonight. Call light and cellphone with patient. Will continue POC.
[2018-11-24 19:58] VITALS: BP 136/70
[2018-11-24] MEDS: oxyCONTIN 10mg tab ORAL SCH (20:59)
--- NOTE | 2018-11-24 22:42 | NUR ---
NURSE NOTES: Received report from EDU Lane. Patient A&Ox4. On room air, no signs of distress or labored breathing. Portacath intact, patent, and infusing IV fluids. Reporting tolerable pain. Will follow pain management pain per MD. Bed in lowest position with call light in reach. Will continue with plan of care.
--- NOTE | 2018-11-24 22:53 | NUR ---
HAND-OFF: Report given to Annelise SORENSEN.
[2018-11-25] VITALS: BP 126/74
--- NOTE | 2018-11-25 00:15 | History and Physical Report ---
DATE OF ADMISSION: 11/23/2018 CHIEF COMPLAINT: The patient is a 22-year-old male with history of sickle cell disease, who presents with a chief complaint of generalized pain. HISTORY OF PRESENT ILLNESS: The patient has a history of sickle cell disease. The patient has had several sickle cell crisis during his lifetime. The patient states the current sickle cell crisis began on 11/22/2018. The patient began to experience bilateral hip pain. The patient also has bilateral knee pain. Pain radiates to the bilateral ankles. The patient presented to [place] emergency room. The patient was admitted for sickle cell crisis. REVIEW OF SYSTEMS: CONSTITUTIONAL: The patient denies weight loss or weight gain. The patient denies fevers or chills. HEENT: The patient denies ear or throat pain. The patient denies headache. CARDIOVASCULAR: The patient denies palpitations or chest pain. CHEST: The patient complains of some shortness of breath associated with pain. The patient denies wheezes. ABDOMEN: The patient denies nausea, vomiting, diarrhea, or constipation. GENITOURINARY: The patient denies dysuria or increased frequency of urination. NEUROMUSCULAR: The patient complains of bilateral hip, knee, and ankle pain as above. The patient denies seizures or generalized weakness. PAST MEDICAL HISTORY: Significant for, 1. Sickle cell disease. 2. Asthma. 3. Avascular necrosis of the left hip. PAST SURGICAL HISTORY: Significant for, 1. 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 2. Port-A-Cath placement in the right chest. CURRENT MEDICATIONS: 1. Aspirin 81 mg one tablet p.o. daily. 2. Advair 115/21, 2 puffs p.o. twice daily 3. Folic acid 1 mg p.o. daily. 4. Dilaudid 16 mg q.4 hours p.r.n. 5. Hydroxyurea 500 mg p.o. daily. 6. OxyContin 20 mg p.o. twice daily. ALLERGIES: 1. Capsaicin. 2. Ceftriaxone. 3. Intravenous contrast dye. 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 The patient denies tobacco or alcohol use. PHYSICAL EXAMINATION: VITAL SIGNS: Temperature 98.5, respirations 20, pulse 63, and blood pressure 133/72. GENERAL: The patient is well-developed and well-nourished, slightly obese, male, in no apparent distress. HEENT: Eyes, pupils are equal and responsive to light and accommodation. Extraocular movements are intact. NECK: Supple without lymphadenopathy. CHEST: Lungs are clear to auscultation bilaterally without wheezes or rales. CARDIOVASCULAR: Regular rhythm and rate. S1 and S2 are normal without murmurs, rubs, or gallops. ABDOMEN: Soft, nontender, and nondistended. Positive bowel sounds. No evidence of hepatosplenomegaly. Currently, no rebound or guarding noted. EXTREMITIES: Negative for clubbing, cyanosis, or edema. RECTAL/GENITAL: Refused. NEUROLOGIC: Cranial nerves II through XII are grossly intact without focal deficits. Motor strength is 5/5 bilaterally. Deep tendon reflexes are 2+ plantar. LABORATORY STUDIES: WBC 19.2, hemoglobin 10.0, hematocrit 31.9, and platelets 607,000. Sodium 139, potassium 3.7, chloride 101, CO2 27, BUN 5, creatinine 0.6, and glucose 116. Bilirubin elevated at 1.1. AST elevated at 49 and ALT elevated at 81. ASSESSMENT: This is a 22-year-old male. 1. Sickle cell crisis. 2. Sickle cell disease. 3. Avascular necrosis of left hip pain. 4. Asthma. TREATMENT: 1. Sickle cell disease/crisis. The patient is currently receiving intravenous fluids. The patient is receiving pain management with OxyContin and intravenous Dilaudid. A Hematology/Oncology consultation has been obtained with Dr. Olmedo. 2. Avascular necrosis of left hip. with Dr. Kerline Davenport. 3. Asthma. Continue Advair as above. Edilson Rubalcava M.D. DR: JOSELINE JOB#: [id number] CC:
[2018-11-25] MEDS: Zolpidem 5mg tab ORAL PRN (00:59)
[2018-11-25 04:00] VITALS: BP 112/71
--- NOTE | 2018-11-25 07:54 | NUR ---
HAND-OFF: Report given to EDU Badillo.
--- NOTE | 2018-11-25 07:55 | NUR ---
NURSE NOTES: Patient is awake and alert,respirations unlabored,IV fluids infusing as ordered.patient received pain medication at 0600,and patient requesting next pain medication when due,will give medication when due as ordered.Call within reach,bed alarm is on.
[2018-11-25 08:00] VITALS: BP 130/80
--- NOTE | 2018-11-25 08:01 | Consultation ---
History of Present Illness General Date patient seen: Nov 25, 2018 Chief Complaint: Pain Reason for Consultation: Leukocytosis Present Illness HPI Mr. Cope is a 22 yo male with PMHx of sickle cell, Asthma, Thalassemia and avascular necrosis of the left hip who presented to the ED on 11/23/18 with likely sickle cell crisis. The patient reports that he has joint pain primarily in his hips and knees pain. He has had multiple sickle cell crisis episodes in his life. He does report talking his meds home. He reports some CP and SOB due to pain but denies cough, fever, chills, sick contacts, N/V/D and abdominal pain. ID consulted for Leukocytosis PMHx/PSHx Sickle cell disease S/P Splenectomy Asthma Thalacemia Avascular necrosis of the left hip SocHx No E/T/D FamHx Not contributory Allergies: Coded Allergies: CAPSAICIN (Verified Allergy, Unknown, 11/23/18) CEFTRIAXONE (Verified Allergy, Unknown, 11/23/18) Uncoded Allergies: CONTRAST (Adverse Reaction, Severe, Rash, 06/23/16) RADIOCONTRAST - RASH, ITCHING Medication History Scheduled Aspirin* (Aspirin*), 81 MG ORAL DAILY, (Reported) Folic Acid* (Folic Acid*), 1 MG ORAL DAILY, (Reported) Hydroxyurea (Hydroxyurea), 1,500 MG PO DAILY, (Reported) Oxycodone Hcl Er* (Oxycontin*), 20 MG ORAL EVERY 12 HOURS, (Reported) Scheduled PRN Fluticasone/Salmeterol (Advair Hfa 115-21 Mcg Inhaler), 2 PUFFS INH EVERY 12 HOURS PRN for Shortness of Breath, (Reported) Hydromorphone Hcl (Hydromorphone Hcl), 16 MG PO Q4HR PRN for Severe Breakthru Pain (>7), (Reported) Discontinued Medications Hydroxyurea* (Hydrea*), 3,500 MG PO DAILY, (Reported) Discontinued Reason: Medication dose changed Patient History Healthcare decision maker Resuscitation status Full Code Advanced Directive on File Review of Systems ROS Narrative 12 point ROS negative except as note in the HPI. Physical Exam Last 24 Hour Vital Signs Date Time Temp Pulse Resp B/P (MAP) Pulse Ox O2 Delivery O2 Flow Rate FiO2 11/25/18 04:00 98.5 63 18 112/71 (85) 97 11/25/18 00:00 98.8 56 17 126/74 (91) 98 11/24/18 21:29 99.3 11/24/18 21:00 Room Air 11/24/18 19:58 99.3 60 16 136/70 (92) 98 11/24/18 19:49 62 20 97 Room Air 21 11/24/18 19:44 64 20 96 Room Air 21 11/24/18 16:00 98.9 62 18 126/66 (86) 98 11/24/18 12:00 98.5 67 18 136/64 (88) 97 67 11/24/18 10:33 60 16 99 Room Air 21 11/24/18 10:32 60 16 98 Room Air 21 11/24/18 09:00 Room Air Intake and Output 11/24/18 11/25/18 18:59 06:59 Intake Total 600 ml 930 ml Balance 600 ml 930 ml Intake Oral 600 ml 480 ml IV Total 450 ml # Bowel Movements 3 Height (Feet): 5 Height (Inches): 6.00 Weight (Pounds): 250 Medications Current Medications Medications (Trade) Dose Ordered Sig/Arianne Route PRN Reason Start Time Stop Time Status Last Admin Dose Admin Acetaminophen (Tylenol) 650 mg Q4H PRN ORAL fever 11/23/18 22:00 12/23/18 21:59 Al Hydroxide/Mg Hydroxide (Mylanta II) 30 ml Q6H PRN ORAL dyspepsia 11/23/18 22:00 12/23/18 21:59 Aspirin (ASA) 81 mg DAILY ORAL 11/24/18 09:00 12/24/18 08:59 11/24/18 08:32 Chlorhexidine Gluconate (Jihan-Hex 2%) 1 applic DAILY@2000 TOPIC 11/25/18 20:00 12/25/18 19:59 Dextrose (Dextrose 50%) 25 ml Q30M PRN IV Hypoglycemia 11/23/18 22:00 12/23/18 21:59 Dextrose (Dextrose 50%) 50 ml Q30M PRN IV Hypoglycemia 11/23/18 22:00 12/23/18 21:59 Folic Acid (Folate) 1 mg DAILY ORAL 11/24/18 09:00 12/24/18 08:59 11/24/18 08:32 Heparin Sodium (Porcine) (Heparin 5000 units/ml) 5,000 units EVERY 12 HOURS SUBQ 11/24/18 09:00 12/24/18 08:59 Hydromorphone HCl (Dilaudid) 2 mg Q3H PRN IV pain 4-6 11/23/18 22:00 11/30/18 21:59 Hydromorphone HCl (Dilaudid) 3 mg Q3H PRN IVP For Pain 7-10 11/23/18 22:00 11/30/18 21:59 11/25/18 05:58 Hydroxyurea (Hydrea) 1,500 mg DAILY ORAL 11/24/18 09:00 11/29/18 08:59 11/24/18 08:32 Lorazepam (Ativan 2mg/ml 1ml) 0.5 mg Q4H PRN IV For Anxiety 11/23/18 22:00 11/30/18 21:59 Ondansetron HCl (Zofran) 4 mg Q6H PRN IVP Nausea & Vomiting 11/23/18 22:00 12/23/18 21:59 Oxycodone HCl (OxyCONTIN) 30 mg Q12HR ORAL 11/24/18 21:00 12/01/18 20:59 11/24/18 20:59 Polyethylene Glycol (Miralax) 17 gm HSPRN PRN ORAL Constipation 11/23/18 22:00 12/23/18 21:59 Salmeterol Xinafoate/ Fluticasone (Advair 100/50 Diskus) 1 puffs BIDRT INH 11/24/18 10:00 12/24/18 09:59 11/24/18 19:47 Sodium Chloride 1,000 ml @ 150 mls/hr Q6H40M IV 11/24/18 19:00 12/23/18 18:59 11/25/18 04:27 Zolpidem Tartrate (Ambien) 5 mg HSPRN PRN ORAL Insomnia 11/23/18 22:00 11/30/18 21:59 11/25/18 00:59 Objective Narrative Gen: In Pain alert HEENT: NCAT, MMM, EOMI, PERRL, No Oral lesion, no scleral icterus NECK: full range of motion, supple, no meningismus, No LAD, No JVD LUNGS: CTAB, No W/C, No Accessory muscle use, Port left chest ( No e/p) CARDS: RRR, S1, S2, No M/R/G, ABD: Soft, NT, ND, No R/G, + BS, No HSM, No Masses : Deferred Ext: C/C/E, Pulses 2+ B/L (DP, Rad), Hip and knee joint pain NEURO: A/O x 4, Strength and Sensation Grossly intact PSYCH: Mood/affect normal SKIN: Warm/dry, No rashes Assessment/Plan Assessment: 22 yo male with PMHx of sickle cell, Asthma, Thalassemia and avascular necrosis of the left hip who presented to the ED on 11/23/18 with likely sickle cell crisis. Leukocytosis Most likely secondary to sickle cell crisis Afebrile Sickle cell disease S/P Splenectomy Asthma Thalassemia PLAN - Continue to monitor off abx - f/u Blood Cx - Montior CBC and Temps - Pain control Thank you for this consult. We will continue to follow the patient during this hospitalization. Yasmany Martin MD Nov 25, 2018 08:01
[2018-11-25] MEDS: Heparin 5000 units/ml inj SUBQ SCH ×2 (08:31→21:00)
[2018-11-25] MEDS: Aspirin Baby 81mg ORAL SCH (08:38)
[2018-11-25] MEDS: Hydroxyurea 500mg cap ORAL SCH (08:38)
[2018-11-25] MEDS ORDERED: 1/2 NS 1000ml IV ONE (09:36)
[2018-11-25] MEDS: Wixela 100/50 Inhaler - 60 dose INH SCH ×2 (10:53→22:15)
[2018-11-25] MEDS: oxyCONTIN 10mg tab ORAL SCH ×2 (10:56→22:37)
[2018-11-25 12:00] VITALS: BP 125/78
[2018-11-25 13:45] LABS: BASOPHILS % (AUTO) 0.8 % (0.0-2.0); EOSINOPHILS % (AUTO) 0.7 % (0.0-3.0); HEMATOCRIT 29.5 % (42.0-52.0); HEMOGLOBIN 9.3 G/DL (14.2-18.0); LYMPHOCYTES % (AUTO) 28.4 % (20.0-45.0); MEAN CORPUSCULAR VOLUME 86 FL (80-99); MONOCYTES % (AUTO) 6.3 % (1.0-10.0); NEUTROPHILS % (AUTO) 63.8 % (45.0-75.0); PLATELET COUNT 581 K/UL (150-450); RED BLOOD COUNT 3.42 M/UL (4.70-6.10); RED CELL DISTRIBUTION WIDTH 17.8 % (11.6-14.8); WHITE BLOOD COUNT 12.1 K/UL (4.8-10.8)
[2018-11-25 14:28] LABS: ANION GAP 4 mmol/L (5-15); BLOOD UREA NITROGEN 6 mg/dL (7-18); CALCIUM 9.1 MG/DL (8.5-10.1); CARBON DIOXIDE 29 MMOL/L (21-32); CHLORIDE 101 MMOL/L (98-107); CREATININE 0.5 MG/DL (0.55-1.30); POTASSIUM 3.4 MMOL/L (3.5-5.1); SODIUM 134 MMOL/L (136-145)
--- NOTE | 2018-11-25 14:58 | Internal Med Progress Note ---
Subjective Date of Service: Nov 25, 2018 Physician Name Edilson Rubalcava Attending Physician Jersey Bearden MD Current Medications Medications (Trade) Dose Ordered Sig/Arianne Route PRN Reason Start Time Stop Time Status Last Admin Dose Admin Acetaminophen (Tylenol) 650 mg Q4H PRN ORAL fever 11/23/18 22:00 12/23/18 21:59 Al Hydroxide/Mg Hydroxide (Mylanta II) 30 ml Q6H PRN ORAL dyspepsia 11/23/18 22:00 12/23/18 21:59 Aspirin (ASA) 81 mg DAILY ORAL 11/24/18 09:00 12/24/18 08:59 11/25/18 08:38 Chlorhexidine Gluconate (Jihan-Hex 2%) 1 applic DAILY@2000 TOPIC 11/25/18 20:00 12/25/18 19:59 Dextrose (Dextrose 50%) 25 ml Q30M PRN IV Hypoglycemia 11/23/18 22:00 12/23/18 21:59 Dextrose (Dextrose 50%) 50 ml Q30M PRN IV Hypoglycemia 11/23/18 22:00 12/23/18 21:59 Folic Acid (Folate) 1 mg DAILY ORAL 11/24/18 09:00 12/24/18 08:59 11/25/18 08:38 Heparin Sodium (Porcine) (Heparin 5000 units/ml) 5,000 units EVERY 12 HOURS SUBQ 11/24/18 09:00 12/24/18 08:59 Hydromorphone HCl (Dilaudid) 2 mg Q3H PRN IV pain 4-6 11/23/18 22:00 11/30/18 21:59 Hydromorphone HCl (Dilaudid) 3 mg Q3H PRN IVP For Pain 7-10 11/23/18 22:00 11/30/18 21:59 11/25/18 12:55 Hydroxyurea (Hydrea) 1,500 mg DAILY ORAL 11/24/18 09:00 11/29/18 08:59 11/25/18 08:38 Lorazepam (Ativan 2mg/ml 1ml) 0.5 mg Q4H PRN IV For Anxiety 11/23/18 22:00 11/30/18 21:59 Ondansetron HCl (Zofran) 4 mg Q6H PRN IVP Nausea & Vomiting 11/23/18 22:00 12/23/18 21:59 Oxycodone HCl (OxyCONTIN) 30 mg Q12HR ORAL 11/24/18 21:00 12/01/18 20:59 11/25/18 10:56 Polyethylene Glycol (Miralax) 17 gm HSPRN PRN ORAL Constipation 11/23/18 22:00 12/23/18 21:59 Salmeterol Xinafoate/ Fluticasone (Advair 100/50 Diskus) 1 puffs BIDRT INH 11/24/18 10:00 12/24/18 09:59 11/25/18 10:53 Sodium Chloride 1,000 ml @ 150 mls/hr Q6H40M IV 11/24/18 19:00 12/23/18 18:59 11/25/18 10:58 Zolpidem Tartrate (Ambien) 5 mg HSPRN PRN ORAL Insomnia 11/23/18 22:00 11/30/18 21:59 11/25/18 00:59 Allergies: Coded Allergies: CAPSAICIN (Verified Allergy, Unknown, 11/23/18) CEFTRIAXONE (Verified Allergy, Unknown, 11/23/18) Uncoded Allergies: CONTRAST (Adverse Reaction, Severe, Rash, 06/23/16) RADIOCONTRAST - RASH, ITCHING ROS Limited/Unobtainable: No Constitutional: Reports: no symptoms HEENT: Reports: no symptoms Cardiovascular: Reports: no symptoms Respiratory: Reports: no symptoms Gastrointestinal/Abdominal: Reports: no symptoms Genitourinary: Reports: no symptoms Neurologic/Psychiatric: Reports: no symptoms Subjective 22 YO M admitted with sickle cell crisis. Cover for Gaston Wilkins-DR Bearden Objective Last Vital Signs Date Time Temp Pulse Resp B/P (MAP) Pulse Ox O2 Delivery O2 Flow Rate FiO2 11/25/18 12:00 98.0 14 125/78 (94) 75 11/25/18 10:50 64 Room Air 21 Laboratory Tests Test 11/25/18 13:15 White Blood Count 12.1 K/UL (4.8-10.8) H Red Blood Count 3.42 M/UL (4.70-6.10) L Hemoglobin 9.3 G/DL (14.2-18.0) L Hematocrit 29.5 % (42.0-52.0) L Mean Corpuscular Volume 86 FL (80-99) Mean Corpuscular Hemoglobin 27.3 PG (27.0-31.0) Mean Corpuscular Hemoglobin Concent 31.6 G/DL (32.0-36.0) L Red Cell Distribution Width 17.8 % (11.6-14.8) H Platelet Count 581 K/UL (150-450) H Mean Platelet Volume 6.2 FL (6.5-10.1) L Neutrophils (%) (Auto) 63.8 % (45.0-75.0) Lymphocytes (%) (Auto) 28.4 % (20.0-45.0) Monocytes (%) (Auto) 6.3 % (1.0-10.0) Eosinophils (%) (Auto) 0.7 % (0.0-3.0) Basophils (%) (Auto) 0.8 % (0.0-2.0) Sodium Level 134 MMOL/L (136-145) L Potassium Level 3.4 MMOL/L (3.5-5.1) L Chloride Level 101 MMOL/L (98-107) Carbon Dioxide Level 29 MMOL/L (21-32) Anion Gap 4 mmol/L (5-15) L Blood Urea Nitrogen 6 mg/dL (7-18) L Creatinine 0.5 MG/DL (0.55-1.30) L Estimat Glomerular Filtration Rate > 60 mL/min (>60) Glucose Level 116 MG/DL (74-106) H Calcium Level 9.1 MG/DL (8.5-10.1) Lactate Dehydrogenase 222 U/L (81-234) Microbiology Date/Time Source Procedure Growth Status 11/23/18 19:35 Blood Blood Culture - Preliminary NO GROWTH AFTER 24 HOURS Resulted 11/23/18 19:20 Blood Blood Culture - Preliminary NO GROWTH AFTER 24 HOURS Resulted Intake and Output 11/24/18 11/25/18 19:00 07:00 Intake Total 600 ml 930 ml Balance 600 ml 930 ml Intake Oral 600 ml 480 ml IV Total 450 ml # Bowel Movements 3 Objective PHYSICAL EXAMINATION: VITAL SIGNS: Temperature 98.5, respirations 20, pulse 63, and blood pressure 133/72. GENERAL: The patient is well-developed and well-nourished, slightly obese, male, in no apparent distress. HEENT: Eyes, pupils are equal and responsive to light and accommodation. Extraocular movements are intact. NECK: Supple without lymphadenopathy. CHEST: Lungs are clear to auscultation bilaterally without wheezes or rales. CARDIOVASCULAR: Regular rhythm and rate. S1 and S2 are normal without murmurs, rubs, or gallops. ABDOMEN: Soft, nontender, and nondistended. Positive bowel sounds. No evidence of hepatosplenomegaly. Currently, no rebound or guarding noted. EXTREMITIES: Negative for clubbing, cyanosis, or edema. RECTAL/GENITAL: Refused. NEUROLOGIC: Cranial nerves II through XII are grossly intact without focal deficits. Motor strength is 5/5 bilaterally. Deep tendon reflexes are 2+ planta Assessment/Plan Assessment/Plan ASSESSMENT: This is a 22-year-old male. 1. Sickle cell crisis. 2. Sickle cell disease. 3. Avascular necrosis of left hip pain. 4. Asthma. TREATMENT: 1. Sickle cell disease/crisis. The patient is currently receiving intravenous fluids. The patient is receiving pain management with OxyContin and intravenous Dilaudid. A Hematology/Oncology consultation has been obtained with Dr. Olmedo. 2. Avascular necrosis of left hip. Hematology consult with Dr. Kerline Davenport. 3. Asthma. Continue Advair as above. Edilson Rubalcava MD Nov 25, 2018 14:58
--- NOTE | 2018-11-25 15:07 | NUR ---
CASE MANAGEMENT: REVIEW SI: SICKLE CELL CRISIS . ASTHMA T 98.0 HR 50 RR 14 BP 125/78 SAT 97% ROOM AIR IS: OXYCODONE 30MG PO Q12HR NS IVF 150ML/HR HEPARIN SQ Q12HR ASA PO QD MED/SURG STATUS DCP: PATIENT IS FROM HOME
[2018-11-25 16:32] VITALS: BP 139/59
--- NOTE | 2018-11-25 19:00 | NUR ---
NURSE NOTES: Patient resting,iv fluids continue to infuse as ordered,call light within reach.
--- NOTE | 2018-11-25 19:25 | NUR ---
HAND-OFF: Report given to Marta SORENSEN.
--- NOTE | 2018-11-25 19:30 | NUR ---
NURSE NOTES: Received report from EDU Badillo. Patient A&Ox4. on room air. no signs of distress or labored breathing. Portacath dry intact and infusing fluids. Complaining of pain. Bed in lowest position with call light in reach. Will continue with plan of care.
[2018-11-25 20:00] VITALS: BP 149/85
[2018-11-25] MEDS: Dyna-Hex 2% Top Sol 2oz TOPIC SCH (20:36)
[2018-11-26] VITALS: BP 137/75
[2018-11-26] MEDS: Zolpidem 5mg tab ORAL PRN (01:36)
[2018-11-26 04:00] VITALS: BP 106/69
[2018-11-26 07:58] VITALS: BP 138/89
[2018-11-26] MEDS: Hydroxyurea 500mg cap ORAL SCH (08:00)
[2018-11-26] MEDS: Aspirin Baby 81mg ORAL SCH (08:01)
--- NOTE | 2018-11-26 08:06 | NUR ---
HAND-OFF: Report given to EDU Carrasquillo.
[2018-11-26 08:10] LABS: BASOPHILS % (AUTO) 0.7 % (0.0-2.0); EOSINOPHILS % (AUTO) 0.8 % (0.0-3.0); HEMATOCRIT 28.7 % (42.0-52.0); LYMPHOCYTES % (AUTO) 29.1 % (20.0-45.0); MEAN CORPUSCULAR VOLUME 86 FL (80-99); MONOCYTES % (AUTO) 4.9 % (1.0-10.0); NEUTROPHILS % (AUTO) 64.4 % (45.0-75.0); PLATELET COUNT 541 K/UL (150-450); RED BLOOD COUNT 3.34 M/UL (4.70-6.10); RED CELL DISTRIBUTION WIDTH 17.6 % (11.6-14.8); WHITE BLOOD COUNT 15.5 K/UL (4.8-10.8)
--- NOTE | 2018-11-26 08:29 | NUR ---
NURSE NOTES: Received report from EDU Castelan. Pt in bed, awake, A/O x4, having CP, not new CP has hx of CP, administered Dilaudid and will reassess pt and CP within 30 minutes. Bed in lowest position, call light within reach.
[2018-11-26] MEDS: Heparin 5000 units/ml inj SUBQ SCH ×2 (09:00→20:41)
[2018-11-26 09:11] LABS: ANION GAP 10 mmol/L (5-15); BLOOD UREA NITROGEN 5 mg/dL (7-18); CALCIUM 9.1 MG/DL (8.5-10.1); CARBON DIOXIDE 28 MMOL/L (21-32); CHLORIDE 102 MMOL/L (98-107); CREATININE 0.5 MG/DL (0.55-1.30); POTASSIUM 4.1 MMOL/L (3.5-5.1); SODIUM 140 MMOL/L (136-145)
--- NOTE | 2018-11-26 09:45 | NUR ---
NURSE NOTES: Left message for Dr. Rubalcava regarding CP Addendum: 11/26/18 at 0958 by MARIELLA SAVAGE RN NURSE NOTES: Dr. Rubalcava ordered Stat EKG and Stat Troponin, orders entered. Called Cardiology to notify of stat order and spoke with Thea in lab for stat order Addendum: 11/26/18 at 1013 by MARIELLA SAVAGE RN NURSE NOTES: obtained blood for troponin level and took to lab
[2018-11-26] MEDS: oxyCONTIN 10mg tab ORAL SCH ×2 (09:51→20:09)
[2018-11-26] MEDS: Wixela 100/50 Inhaler - 60 dose INH SCH ×2 (10:49→19:56)
[2018-11-26 11:46] VITALS: BP 129/83
--- NOTE | 2018-11-26 13:39 | Internal Med Progress Note ---
Subjective Date of Service: Nov 26, 2018 Physician Name Edilson Rubalcava Attending Physician Jersey Bearden MD Current Medications Medications (Trade) Dose Ordered Sig/Arianne Route PRN Reason Start Time Stop Time Status Last Admin Dose Admin Acetaminophen (Tylenol) 650 mg Q4H PRN ORAL fever 11/23/18 22:00 12/23/18 21:59 Al Hydroxide/Mg Hydroxide (Mylanta II) 30 ml Q6H PRN ORAL dyspepsia 11/23/18 22:00 12/23/18 21:59 Aspirin (ASA) 81 mg DAILY ORAL 11/24/18 09:00 12/24/18 08:59 11/26/18 08:01 Chlorhexidine Gluconate (Jihan-Hex 2%) 1 applic DAILY@2000 TOPIC 11/25/18 20:00 12/25/18 19:59 11/25/18 20:36 Dextrose (Dextrose 50%) 25 ml Q30M PRN IV Hypoglycemia 11/23/18 22:00 12/23/18 21:59 Dextrose (Dextrose 50%) 50 ml Q30M PRN IV Hypoglycemia 11/23/18 22:00 12/23/18 21:59 Folic Acid (Folate) 1 mg DAILY ORAL 11/24/18 09:00 12/24/18 08:59 11/26/18 08:01 Heparin Sodium (Porcine) (Heparin 5000 units/ml) 5,000 units EVERY 12 HOURS SUBQ 11/24/18 09:00 12/24/18 08:59 Hydromorphone HCl (Dilaudid) 2 mg Q3H PRN IV pain 4-6 11/23/18 22:00 11/30/18 21:59 Hydromorphone HCl (Dilaudid) 3 mg Q3H PRN IVP For Pain 7-10 11/23/18 22:00 11/30/18 21:59 11/26/18 12:20 Hydroxyurea (Hydrea) 1,500 mg DAILY ORAL 11/24/18 09:00 11/29/18 08:59 11/26/18 08:00 Lorazepam (Ativan 2mg/ml 1ml) 0.5 mg Q4H PRN IV For Anxiety 11/23/18 22:00 11/30/18 21:59 Ondansetron HCl (Zofran) 4 mg Q6H PRN IVP Nausea & Vomiting 11/23/18 22:00 12/23/18 21:59 Oxycodone HCl (OxyCONTIN) 30 mg Q12HR ORAL 11/24/18 21:00 12/01/18 20:59 11/26/18 09:51 Polyethylene Glycol (Miralax) 17 gm HSPRN PRN ORAL Constipation 11/23/18 22:00 12/23/18 21:59 Salmeterol Xinafoate/ Fluticasone (Advair 100/50 Diskus) 1 puffs BIDRT INH 11/24/18 10:00 12/24/18 09:59 11/26/18 10:49 Sodium Chloride 1,000 ml @ 150 mls/hr Q6H40M IV 11/24/18 19:00 12/23/18 18:59 11/26/18 09:51 Zolpidem Tartrate (Ambien) 5 mg HSPRN PRN ORAL Insomnia 11/23/18 22:00 11/30/18 21:59 11/26/18 01:36 Allergies: Coded Allergies: CAPSAICIN (Verified Allergy, Unknown, 11/23/18) CEFTRIAXONE (Verified Allergy, Unknown, 11/23/18) Uncoded Allergies: CONTRAST (Adverse Reaction, Severe, Rash, 06/23/16) RADIOCONTRAST - RASH, ITCHING ROS Limited/Unobtainable: No Constitutional: Reports: no symptoms HEENT: Reports: no symptoms Cardiovascular: Reports: chest pain Respiratory: Reports: no symptoms Gastrointestinal/Abdominal: Reports: no symptoms Genitourinary: Reports: no symptoms Subjective 22 YO M admitted with sickle cell crisis. C/O chest pain earlier. Cover for Int Franky-DR Bearden Objective Last Vital Signs Date Time Temp Pulse Resp B/P (MAP) Pulse Ox O2 Delivery O2 Flow Rate FiO2 11/26/18 12:50 98.2 11/26/18 11:46 73 17 129/83 (98) 100 11/26/18 10:49 Room Air 21 Laboratory Tests Test 11/26/18 06:00 11/26/18 10:08 White Blood Count 15.5 K/UL (4.8-10.8) H Red Blood Count 3.34 M/UL (4.70-6.10) L Hemoglobin 9.0 G/DL (14.2-18.0) L Hematocrit 28.7 % (42.0-52.0) L Mean Corpuscular Volume 86 FL (80-99) Mean Corpuscular Hemoglobin 27.0 PG (27.0-31.0) Mean Corpuscular Hemoglobin Concent 31.4 G/DL (32.0-36.0) L Red Cell Distribution Width 17.6 % (11.6-14.8) H Platelet Count 541 K/UL (150-450) H Mean Platelet Volume 6.5 FL (6.5-10.1) Neutrophils (%) (Auto) 64.4 % (45.0-75.0) Lymphocytes (%) (Auto) 29.1 % (20.0-45.0) Monocytes (%) (Auto) 4.9 % (1.0-10.0) Eosinophils (%) (Auto) 0.8 % (0.0-3.0) Basophils (%) (Auto) 0.7 % (0.0-2.0) Sodium Level 140 MMOL/L (136-145) Potassium Level 4.1 MMOL/L (3.5-5.1) Chloride Level 102 MMOL/L (98-107) Carbon Dioxide Level 28 MMOL/L (21-32) Anion Gap 10 mmol/L (5-15) Blood Urea Nitrogen 5 mg/dL (7-18) L Creatinine 0.5 MG/DL (0.55-1.30) L Estimat Glomerular Filtration Rate > 60 mL/min (>60) Glucose Level 93 MG/DL (74-106) Calcium Level 9.1 MG/DL (8.5-10.1) Lactate Dehydrogenase 197 U/L (81-234) Troponin I 0.000 ng/mL (0.000-0.056) Microbiology Date/Time Source Procedure Growth Status 11/23/18 19:35 Blood Blood Culture - Preliminary NO GROWTH AFTER 48 HOURS Resulted 11/23/18 19:20 Blood Blood Culture - Preliminary NO GROWTH AFTER 48 HOURS Resulted Intake and Output 11/25/18 11/26/18 19:00 07:00 Intake Total 1350 ml 1150 ml Balance 1350 ml 1150 ml IV Total 1350 ml 150 ml Other 1000 ml # Voids 2 # Bowel Movements 3 Objective PHYSICAL EXAMINATION: VITAL SIGNS: Temperature 98.5, respirations 20, pulse 63, and blood pressure 133/72. GENERAL: The patient is well-developed and well-nourished, slightly obese, male, in no apparent distress. HEENT: Eyes, pupils are equal and responsive to light and accommodation. Extraocular movements are intact. NECK: Supple without lymphadenopathy. CHEST: Lungs are clear to auscultation bilaterally without wheezes or rales. CARDIOVASCULAR: Regular rhythm and rate. S1 and S2 are normal without murmurs, rubs, or gallops. ABDOMEN: Soft, nontender, and nondistended. Positive bowel sounds. No evidence of hepatosplenomegaly. Currently, no rebound or guarding noted. EXTREMITIES: Negative for clubbing, cyanosis, or edema. RECTAL/GENITAL: Refused. NEUROLOGIC: Cranial nerves II through XII are grossly intact without focal deficits. Motor strength is 5/5 bilaterally. Deep tendon reflexes are 2+ planta Assessment/Plan Assessment/Plan ASSESSMENT: This is a 22-year-old male. 1. Sickle cell crisis. 2. Sickle cell disease. 3. Avascular necrosis of left hip pain. 4. Asthma. 5. Chest pain TREATMENT: 1. Sickle cell disease/crisis. The patient is currently receiving intravenous fluids. The patient is receiving pain management with OxyContin and intravenous Dilaudid. A Hematology/Oncology consultation has been obtained with Dr. Olmedo. 2. Avascular necrosis of left hip. Hematology consult with Dr. Kerline Davenport. 3. Asthma. Continue Advair as above. 4. Chest pain. Stat EKG and troponin. Edilson Rubalcava MD Nov 26, 2018 13:39
--- NOTE | 2018-11-26 14:51 | NUR ---
IP COUNSELMACHINE PRECISION ETCHER SI: IS:DILAUDID 3mg IVP AMBIEN 5mg HYDREA 1,500mg ADVAIR 1puff INH NS x1L IV OXYCODONE HCI 30mg MED/SURG STATUS
[2018-11-26 15:14] VITALS: BP 142/91
[2018-11-26] MEDS ORDERED: 1/2 NS 1000ml IV ONE ×2 (15:18→21:45)
--- NOTE | 2018-11-26 19:14 | NUR ---
HAND-OFF: Report given to EDU Lane.
[2018-11-26 19:54] VITALS: BP 136/72
--- NOTE | 2018-11-26 20:00 | NUR ---
NURSE NOTES: Patient received in bed, aaox4, fatigued. R chest portacath intact, IVF infusing at 200cc/hr. Encouraged PO fluids as well. Call light in reach. Will continue POC.
[2018-11-26] MEDS: Dyna-Hex 2% Top Sol 2oz TOPIC SCH (20:09)
[2018-11-27] VITALS: BP 107/66
[2018-11-27 04:00] VITALS: BP 137/69
[2018-11-27 04:56] LABS: HEMATOCRIT 30.2 % (42.0-52.0); HEMOGLOBIN 9.4 G/DL (14.2-18.0); MEAN CORPUSCULAR VOLUME 86 FL (80-99); PLATELET COUNT 557 K/UL (150-450); RED BLOOD COUNT 3.51 M/UL (4.70-6.10); RED CELL DISTRIBUTION WIDTH 17.8 % (11.6-14.8)
[2018-11-27 05:12] LABS: ANION GAP 9 mmol/L (5-15); BLOOD UREA NITROGEN 5 mg/dL (7-18); CALCIUM 8.7 MG/DL (8.5-10.1); CARBON DIOXIDE 28 MMOL/L (21-32); CHLORIDE 102 MMOL/L (98-107); CREATININE 0.6 MG/DL (0.55-1.30); POTASSIUM 3.7 MMOL/L (3.5-5.1); SODIUM 139 MMOL/L (136-145)
[2018-11-27 05:13] LABS: WHITE BLOOD COUNT 24.2 K/UL (4.8-10.8)
--- NOTE | 2018-11-27 05:29 | NUR ---
NURSE NOTES: Dr. Martin notified of Critical value WBC 24.2. No new orders at this time. MD to see patient in AM.
--- NOTE | 2018-11-27 07:05 | NUR ---
HAND-OFF: Report given to Neida SORENSEN.
--- NOTE | 2018-11-27 07:15 | NUR ---
NURSE NOTES: Report received from EDU Lane. Pt in bed, asleep, respirations regular and unlabored, bed in lowest position, call light within reach, IV fluids running according to order, all tubing within date.
[2018-11-27] MEDS: Hydroxyurea 500mg cap ORAL SCH (07:55)
[2018-11-27 08:00] VITALS: BP 117/75
[2018-11-27] MEDS: Heparin 5000 units/ml inj SUBQ SCH ×2 (08:00→21:00)
[2018-11-27] MEDS: Aspirin Baby 81mg ORAL SCH (08:00)
[2018-11-27] MEDS: Wixela 100/50 Inhaler - 60 dose INH SCH ×2 (08:13→21:16)
[2018-11-27] MEDS: oxyCONTIN 10mg tab ORAL SCH ×3 (09:19→22:09)
[2018-11-27 12:00] VITALS: BP 122/60
--- NOTE | 2018-11-27 12:26 | Cardiology Report ---
APPROVED REPORT EKG Measurement Heart [id number] Sinus bradycardia Otherwise normal ECG
--- NOTE | 2018-11-27 14:02 | Infectious Diseases Prog Note ---
Assessment/Plan Assessment/Plan Assessment: 22 yo male with PMHx of sickle cell, Asthma, Thalassemia and avascular necrosis of the left hip who presented to the ED on 11/23/18 with likely sickle cell crisis. Leukocytosis; incraesed Most likely secondary to sickle cell crisis Afebrile 11/23 Bcx NTD CXR: Cardiomegaly with slight prominence of the pulmonary vascularity which may be related to low lung volumes. Correlate clinically to exclude mild congestive changes. No definite focal airspace consolidation, pleural effusion or pneumothorax.Right chest wall Mediport in place. Sickle cell disease S/P Splenectomy Asthma Thalassemia PLAN - Continue to monitor off abx - f/u Blood Cx - Montior CBC and Temps - Pain control -Repeat Bcx x2 -Cdiff if diarrhea -CXR am Thank you for this consult. We will continue to follow the patient during this hospitalization. Subjective Allergies: Coded Allergies: CAPSAICIN (Verified Allergy, Unknown, 11/23/18) CEFTRIAXONE (Verified Allergy, Unknown, 11/23/18) Uncoded Allergies: CONTRAST (Adverse Reaction, Severe, Rash, 06/23/16) RADIOCONTRAST - RASH, ITCHING Subjective afebrile leukocytosis increased off abx Objective Vital Signs Last 24 Hour Vital Signs Date Time Temp Pulse Resp B/P (MAP) Pulse Ox O2 Delivery O2 Flow Rate FiO2 11/27/18 12:00 97.7 62 19 122/60 (80) 97 11/27/18 11:49 97.7 11/27/18 09:49 97.4 11/27/18 09:00 Room Air 11/27/18 08:13 71 18 97 Room Air 11/27/18 08:13 68 16 97 Room Air 11/27/18 08:00 97.7 56 21 117/75 (89) 97 11/27/18 04:00 97.4 64 18 137/69 (91) 98 11/27/18 00:00 98.0 57 18 107/66 (80) 97 11/26/18 21:00 Room Air 11/26/18 19:57 75 16 97 Room Air 21 11/26/18 19:56 78 16 97 Room Air 21 11/26/18 19:54 99.6 72 18 136/72 (93) 97 11/26/18 15:14 99.2 64 16 142/91 (108) 97 Height (Feet): 5 Height (Inches): 6.00 Weight (Pounds): 250 Objective Gen: In Pain alert HEENT: NCAT, MMM, EOMI, PERRL, No Oral lesion, no scleral icterus NECK: full range of motion, supple, no meningismus, No LAD, No JVD LUNGS: CTAB, No W/C, No Accessory muscle use, Port left chest ( No e/p) CARDS: RRR, S1, S2, No M/R/G, ABD: Soft, NT, ND, No R/G, + BS, No HSM, No Masses Ext: C/C/E, Pulses 2+ B/L (DP, Rad), Hip and knee joint pain NEURO: A/O x 4, Strength and Sensation Grossly intact PSYCH: Mood/affect normal SKIN: Warm/dry, No rashes Laboratory Tests Test 11/27/18 04:20 White Blood Count 24.2 K/UL (4.8-10.8) #*H Red Blood Count 3.51 M/UL (4.70-6.10) L Hemoglobin 9.4 G/DL (14.2-18.0) L Hematocrit 30.2 % (42.0-52.0) L Mean Corpuscular Volume 86 FL (80-99) Mean Corpuscular Hemoglobin 26.9 PG (27.0-31.0) L Mean Corpuscular Hemoglobin Concent 31.3 G/DL (32.0-36.0) L Red Cell Distribution Width 17.8 % (11.6-14.8) H Platelet Count 557 K/UL (150-450) H Mean Platelet Volume 6.0 FL (6.5-10.1) L Neutrophils (%) (Auto) % (45.0-75.0) Lymphocytes (%) (Auto) % (20.0-45.0) Monocytes (%) (Auto) % (1.0-10.0) Eosinophils (%) (Auto) % (0.0-3.0) Basophils (%) (Auto) % (0.0-2.0) Differential Total Cells Counted 100 Neutrophils % (Manual) 45 % (45-75) Lymphocytes % (Manual) 48 % (20-45) H Monocytes % (Manual) 5 % (1-10) Eosinophils % (Manual) 0 % (0-3) Basophils % (Manual) 1 % (0-2) Band Neutrophils 1 % (0-8) Nucleated Red Blood Cells 13 /100 WBC Platelet Estimate Increased H Platelet Morphology Normal Polychromasia 1+ Basophilic Stippling 1+ Anisocytosis 2+ Target Cells 2+ Sodium Level 139 MMOL/L (136-145) Potassium Level 3.7 MMOL/L (3.5-5.1) Chloride Level 102 MMOL/L (98-107) Carbon Dioxide Level 28 MMOL/L (21-32) Anion Gap 9 mmol/L (5-15) Blood Urea Nitrogen 5 mg/dL (7-18) L Creatinine 0.6 MG/DL (0.55-1.30) Estimat Glomerular Filtration Rate > 60 mL/min (>60) Glucose Level 89 MG/DL (74-106) Calcium Level 8.7 MG/DL (8.5-10.1) Current Medications Medications (Trade) Dose Ordered Sig/Arianne Route PRN Reason Start Time Stop Time Status Last Admin Dose Admin Acetaminophen (Tylenol) 650 mg Q4H PRN ORAL fever 11/23/18 22:00 12/23/18 21:59 Al Hydroxide/Mg Hydroxide (Mylanta II) 30 ml Q6H PRN ORAL dyspepsia 11/23/18 22:00 12/23/18 21:59 Aspirin (ASA) 81 mg DAILY ORAL 11/24/18 09:00 12/24/18 08:59 11/27/18 08:00 Chlorhexidine Gluconate (Jihan-Hex 2%) 1 applic DAILY@2000 TOPIC 11/25/18 20:00 12/25/18 19:59 11/26/18 20:09 Dextrose (Dextrose 50%) 25 ml Q30M PRN IV Hypoglycemia 11/23/18 22:00 12/23/18 21:59 Dextrose (Dextrose 50%) 50 ml Q30M PRN IV Hypoglycemia 11/23/18 22:00 12/23/18 21:59 Folic Acid (Folate) 1 mg DAILY ORAL 11/24/18 09:00 12/24/18 08:59 11/27/18 07:55 Heparin Sodium (Porcine) (Heparin 5000 units/ml) 5,000 units EVERY 12 HOURS SUBQ 11/24/18 09:00 12/24/18 08:59 Hydromorphone HCl (Dilaudid) 2 mg Q3H PRN IV pain 4-6 11/23/18 22:00 11/30/18 21:59 Hydromorphone HCl (Dilaudid) 3 mg Q3H PRN IVP For Pain 7-10 11/23/18 22:00 11/30/18 21:59 11/27/18 11:19 Hydroxyurea (Hydrea) 1,500 mg DAILY ORAL 11/24/18 09:00 11/29/18 08:59 11/27/18 07:55 Lorazepam (Ativan 2mg/ml 1ml) 0.5 mg Q4H PRN IV For Anxiety 11/23/18 22:00 11/30/18 21:59 Ondansetron HCl (Zofran) 4 mg Q6H PRN IVP Nausea & Vomiting 11/23/18 22:00 12/23/18 21:59 Oxycodone HCl (OxyCONTIN) 30 mg Q8HR ORAL 11/27/18 14:00 12/04/18 13:59 11/27/18 13:41 Polyethylene Glycol (Miralax) 17 gm HSPRN PRN ORAL Constipation 11/23/18 22:00 12/23/18 21:59 Salmeterol Xinafoate/ Fluticasone (Advair 100/50 Diskus) 1 puffs BIDRT INH 11/24/18 10:00 12/24/18 09:59 11/27/18 08:13 Sodium Chloride 1,000 ml @ 200 mls/hr Q5H IV 11/26/18 15:00 12/23/18 14:59 11/27/18 11:19 Zolpidem Tartrate (Ambien) 5 mg HSPRN PRN ORAL Insomnia 11/23/18 22:00 11/30/18 21:59 11/26/18 01:36 Anjana Bang M.D. Nov 27, 2018 14:02
--- NOTE | 2018-11-27 14:38 | NUR ---
FOLLOW UP CLERKDIRECTOR PEOPLESOFT SI:SICKLE CELL CRISIS . ASTHMA VS: BP 122/60, P 62, T 97.7, RR 19, SpO2 97 WBC 24.2, RBC 3.51, Hgb 9.4, Hct 30.2, BUN 5 IS:OXYCODONE 30mg NS x1L IV FLUTICASONE 1puff INH HYDREA 1,500mg DILAUDID 2mg IV MED/SURG STATUS
[2018-11-27 16:00] VITALS: BP 135/60
--- NOTE | 2018-11-27 18:54 | Internal Med Progress Note ---
Subjective Date of Service: Nov 27, 2018 Physician Name RubalcavaEdilson edge Attending Physician Jersey Bearden MD Current Medications Medications (Trade) Dose Ordered Sig/Arianne Route PRN Reason Start Time Stop Time Status Last Admin Dose Admin Acetaminophen (Tylenol) 650 mg Q4H PRN ORAL fever 11/23/18 22:00 12/23/18 21:59 Al Hydroxide/Mg Hydroxide (Mylanta II) 30 ml Q6H PRN ORAL dyspepsia 11/23/18 22:00 12/23/18 21:59 Aspirin (ASA) 81 mg DAILY ORAL 11/24/18 09:00 12/24/18 08:59 11/27/18 08:00 Chlorhexidine Gluconate (Jihan-Hex 2%) 1 applic DAILY@2000 TOPIC 11/25/18 20:00 12/25/18 19:59 11/26/18 20:09 Dextrose (Dextrose 50%) 25 ml Q30M PRN IV Hypoglycemia 11/23/18 22:00 12/23/18 21:59 Dextrose (Dextrose 50%) 50 ml Q30M PRN IV Hypoglycemia 11/23/18 22:00 12/23/18 21:59 Folic Acid (Folate) 1 mg DAILY ORAL 11/24/18 09:00 12/24/18 08:59 11/27/18 07:55 Heparin Sodium (Porcine) (Heparin 5000 units/ml) 5,000 units EVERY 12 HOURS SUBQ 11/24/18 09:00 12/24/18 08:59 Hydromorphone HCl (Dilaudid) 2 mg Q3H PRN IV pain 4-6 11/23/18 22:00 11/30/18 21:59 Hydromorphone HCl (Dilaudid) 3 mg Q3H PRN IVP For Pain 7-10 11/23/18 22:00 11/30/18 21:59 11/27/18 18:15 Hydroxyurea (Hydrea) 1,500 mg DAILY ORAL 11/24/18 09:00 11/29/18 08:59 11/27/18 07:55 Lorazepam (Ativan 2mg/ml 1ml) 0.5 mg Q4H PRN IV For Anxiety 11/23/18 22:00 11/30/18 21:59 Ondansetron HCl (Zofran) 4 mg Q6H PRN IVP Nausea & Vomiting 11/23/18 22:00 12/23/18 21:59 Oxycodone HCl (OxyCONTIN) 30 mg Q8HR ORAL 11/27/18 14:00 12/04/18 13:59 11/27/18 13:41 Polyethylene Glycol (Miralax) 17 gm HSPRN PRN ORAL Constipation 11/23/18 22:00 12/23/18 21:59 Salmeterol Xinafoate/ Fluticasone (Advair 100/50 Diskus) 1 puffs BIDRT INH 11/24/18 10:00 12/24/18 09:59 11/27/18 08:13 Sodium Chloride 1,000 ml @ 200 mls/hr Q5H IV 11/26/18 15:00 12/23/18 14:59 11/27/18 15:07 Zolpidem Tartrate (Ambien) 5 mg HSPRN PRN ORAL Insomnia 11/23/18 22:00 11/30/18 21:59 11/26/18 01:36 Allergies: Coded Allergies: CAPSAICIN (Verified Allergy, Unknown, 11/23/18) CEFTRIAXONE (Verified Allergy, Unknown, 11/23/18) Uncoded Allergies: CONTRAST (Adverse Reaction, Severe, Rash, 06/23/16) RADIOCONTRAST - RASH, ITCHING ROS Limited/Unobtainable: No Constitutional: Reports: no symptoms HEENT: Reports: no symptoms Cardiovascular: Reports: chest pain Respiratory: Reports: no symptoms Gastrointestinal/Abdominal: Reports: no symptoms Genitourinary: Reports: no symptoms Neurologic/Psychiatric: Reports: no symptoms Subjective 22 YO M admitted with sickle cell crisis. C/O generalized pain. Cover for Int Franky-DR Bearden Objective Last Vital Signs Date Time Temp Pulse Resp B/P (MAP) Pulse Ox O2 Delivery O2 Flow Rate FiO2 11/27/18 16:00 97.9 68 22 135/60 (85) 97 11/27/18 09:00 Room Air 11/27/18 08:13 21 Laboratory Tests Test 11/27/18 04:20 White Blood Count 24.2 K/UL (4.8-10.8) #*H Red Blood Count 3.51 M/UL (4.70-6.10) L Hemoglobin 9.4 G/DL (14.2-18.0) L Hematocrit 30.2 % (42.0-52.0) L Mean Corpuscular Volume 86 FL (80-99) Mean Corpuscular Hemoglobin 26.9 PG (27.0-31.0) L Mean Corpuscular Hemoglobin Concent 31.3 G/DL (32.0-36.0) L Red Cell Distribution Width 17.8 % (11.6-14.8) H Platelet Count 557 K/UL (150-450) H Mean Platelet Volume 6.0 FL (6.5-10.1) L Neutrophils (%) (Auto) % (45.0-75.0) Lymphocytes (%) (Auto) % (20.0-45.0) Monocytes (%) (Auto) % (1.0-10.0) Eosinophils (%) (Auto) % (0.0-3.0) Basophils (%) (Auto) % (0.0-2.0) Differential Total Cells Counted 100 Neutrophils % (Manual) 45 % (45-75) Lymphocytes % (Manual) 48 % (20-45) H Monocytes % (Manual) 5 % (1-10) Eosinophils % (Manual) 0 % (0-3) Basophils % (Manual) 1 % (0-2) Band Neutrophils 1 % (0-8) Nucleated Red Blood Cells 13 /100 WBC Platelet Estimate Increased H Platelet Morphology Normal Polychromasia 1+ Basophilic Stippling 1+ Anisocytosis 2+ Target Cells 2+ Sodium Level 139 MMOL/L (136-145) Potassium Level 3.7 MMOL/L (3.5-5.1) Chloride Level 102 MMOL/L (98-107) Carbon Dioxide Level 28 MMOL/L (21-32) Anion Gap 9 mmol/L (5-15) Blood Urea Nitrogen 5 mg/dL (7-18) L Creatinine 0.6 MG/DL (0.55-1.30) Estimat Glomerular Filtration Rate > 60 mL/min (>60) Glucose Level 89 MG/DL (74-106) Calcium Level 8.7 MG/DL (8.5-10.1) Intake and Output 11/26/18 11/27/18 19:00 07:00 Intake Total 2015 ml 2400 ml Balance 2015 ml 2400 ml Intake Oral 600 ml IV Total 1415 ml 2400 ml # Voids 5 2 # Bowel Movements 1 Objective PHYSICAL EXAMINATION: VITAL SIGNS: Temperature 98.5, respirations 20, pulse 63, and blood pressure 133/72. GENERAL: The patient is well-developed and well-nourished, slightly obese, male, in no apparent distress. HEENT: Eyes, pupils are equal and responsive to light and accommodation. Extraocular movements are intact. NECK: Supple without lymphadenopathy. CHEST: Lungs are clear to auscultation bilaterally without wheezes or rales. CARDIOVASCULAR: Regular rhythm and rate. S1 and S2 are normal without murmurs, rubs, or gallops. ABDOMEN: Soft, nontender, and nondistended. Positive bowel sounds. No evidence of hepatosplenomegaly. Currently, no rebound or guarding noted. EXTREMITIES: Negative for clubbing, cyanosis, or edema. RECTAL/GENITAL: Refused. NEUROLOGIC: Cranial nerves II through XII are grossly intact without focal deficits. Motor strength is 5/5 bilaterally. Deep tendon reflexes are 2+ planta Assessment/Plan Assessment/Plan ASSESSMENT: This is a 22-year-old male. 1. Sickle cell crisis. 2. Sickle cell disease. 3. Avascular necrosis of left hip pain. 4. Asthma. 5. Chest pain 6. leukocytosis TREATMENT: 1. Sickle cell disease/crisis. The patient is currently receiving intravenous fluids. The patient is receiving pain management with OxyContin and intravenous Dilaudid. A Hematology/Oncology consultation has been obtained with Dr. Davenport 2. Avascular necrosis of left hip. Hematology consult with Dr. Kerline Davenport. 3. Asthma. Continue Advair as above. 4. Chest pain. Stat EKG and troponin. 5. Leukocytosis-see ID note. Edilson Rubalcava MD Nov 27, 2018 18:53
--- NOTE | 2018-11-27 19:13 | NUR ---
HAND-OFF: Report given to EDU Lane.
--- NOTE | 2018-11-27 19:30 | NUR ---
NURSE NOTES: Patient received in bed, aox4, still c/o constant pain and fatigue. R chest portacath intact, IVF infusing as ordered. No other complaints at this time. Call light in reach. Will continue to monitor.
[2018-11-27 19:56] VITALS: BP 119/80
[2018-11-27] MEDS: Dyna-Hex 2% Top Sol 2oz TOPIC SCH (20:00)
[2018-11-28 00:24] VITALS: BP 126/86
--- NOTE | 2018-11-28 03:00 | NUR ---
NURSE NOTES: Patient verbalized that he had diarrhea x2. He was aware of need for collection. Hat is provided for patient in the toilet. Verbalized understanding regarding stool collection if diarrhea. Patient will notify RN once stool is collected.
[2018-11-28 03:37] VITALS: BP 123/67
[2018-11-28] MEDS: oxyCONTIN 10mg tab ORAL SCH ×3 (05:13→21:27)
[2018-11-28 06:36] LABS: HEMATOCRIT 27.5 % (42.0-52.0); HEMOGLOBIN 8.7 G/DL (14.2-18.0); MEAN CORPUSCULAR VOLUME 86 FL (80-99); PLATELET COUNT 496 K/UL (150-450); RED CELL DISTRIBUTION WIDTH 17.8 % (11.6-14.8); WHITE BLOOD COUNT 21.2 K/UL (4.8-10.8)
[2018-11-28 06:50] LABS: ANION GAP 8 mmol/L (5-15); BLOOD UREA NITROGEN 4 mg/dL (7-18); CALCIUM 8.4 MG/DL (8.5-10.1); CARBON DIOXIDE 29 MMOL/L (21-32); CHLORIDE 103 MMOL/L (98-107); CREATININE 0.4 MG/DL (0.55-1.30); POTASSIUM 3.2 MMOL/L (3.5-5.1); SODIUM 140 MMOL/L (136-145)
--- NOTE | 2018-11-28 07:31 | NUR ---
HAND-OFF: Report given to Buffy SORENSEN.
[2018-11-28 08:00] VITALS: BP 133/75
--- NOTE | 2018-11-28 08:00 | NUR ---
NURSE NOTES: RECEIVED PATIENT IN BED, RESTING AND ALERT X4. CENTRAL LINE INTACT, DRESSING DRY, LINE RUNNING FLUIDS. NO SIGNS OF RESPIRATORY DISTRESS, PATIENT IN ROOM AIR. BED IN LOWEST POSITION. CALL LIGHT WITHIN REACH. WILL CONTINUE TO MONITOR.
[2018-11-28] MEDS: Aspirin Baby 81mg ORAL SCH (08:31)
[2018-11-28] MEDS: Hydroxyurea 500mg cap ORAL SCH (08:31)
[2018-11-28] MEDS: Heparin 5000 units/ml inj SUBQ SCH ×2 (08:31→21:00)
--- NOTE | 2018-11-28 09:02 | NUR ---
RADIOLOGY DEPT., CHEST X-RAY DONE.-P.DYE
--- NOTE | 2018-11-28 09:27 | Diagnostic Imaging Report ---
Indication: Cough Technique: One view of the chest Comparison: 11/23/2018 Findings: Lungs and pleural spaces are clear. The heart size is normal. There is a right chest port catheter again demonstrated. Findings are unchanged Impression: No acute process
[2018-11-28] MEDS: Wixela 100/50 Inhaler - 60 dose INH SCH ×2 (09:41→22:25)
--- NOTE | 2018-11-28 10:50 | NUR ---
FUGITIVE DETECTIVEPANTRY STEWARD/STEWARDESS SI: SICKLE CELL CRISIS T. 97.3 HR 62 RR 18 B/P 133/75 WBC 21.2 K 3.2 IS: IVF NS @ 200ML/HR HEPARIN SUBC ASA PO MED/SURG STATUS
[2018-11-28 11:36] VITALS: BP 128/77
--- NOTE | 2018-11-28 12:00 | NUR ---
RD ASSESSMENT & RECOMMENDATIONS SEE CARE ACTIVITY FOR COMPLETE ASSESSMENT DAILY ESTIMATED NEEDS: Needs based on Obese, pulmonary 77kg adj 20-25 kcals/kg 7234-9802 total kcals 1-1.5 g protein/kg 77-116 g total protein 25-30 mL/kg 8280-6303 total fluid mLs NUTRITION DIAGNOSIS: 1) Obesity etiology unknown as evidenced by BMI >40, pt is 177% [place] Body Weight. 2) Altered nutrition related lab values r/t clinical status, sickle cell crisis, low hgb 8.7 CURRENT DIET:Regular PO DIET RECOMMENDATIONS: Continue Regular Diet ADDITIONAL RECOMMENDATIONS: 1) Obtain a STANDING weight as able for accurate CBW 2) check lytes daily, replete as needed (low K)
--- NOTE | 2018-11-28 13:21 | Infectious Diseases Prog Note ---
Assessment/Plan Assessment/Plan Assessment: 22 yo male with PMHx of sickle cell, Asthma, Thalassemia and avascular necrosis of the left hip who presented to the ED on 11/23/18 with likely sickle cell crisis. Leukocytosis; incraesed, today slightly improved Most likely secondary to sickle cell crisis Afebrile 11/23 Bcx NTD -11/28 CXR: No acute process CXR: Cardiomegaly with slight prominence of the pulmonary vascularity which may be related to low lung volumes. Correlate clinically to exclude mild congestive changes. No definite focal airspace consolidation, pleural effusion or pneumothorax.Right chest wall Mediport in place. Sickle cell disease S/P Splenectomy Asthma Thalassemia PLAN - Continue to monitor off abx - f/u Blood Cx - Montior CBC and Temps - Pain control -f/u Repeat Bcx x2 -Cdiff if diarrhea Thank you for this consult. We will continue to follow the patient during this hospitalization. Subjective Allergies: Coded Allergies: CAPSAICIN (Verified Allergy, Unknown, 11/23/18) CEFTRIAXONE (Verified Allergy, Unknown, 11/23/18) Uncoded Allergies: CONTRAST (Adverse Reaction, Severe, Rash, 06/23/16) RADIOCONTRAST - RASH, ITCHING Subjective afebrile leukocytosis improved off abx Objective Vital Signs Last 24 Hour Vital Signs Date Time Temp Pulse Resp B/P (MAP) Pulse Ox O2 Delivery O2 Flow Rate FiO2 11/28/18 11:36 98.1 67 18 128/77 (94) 94 11/28/18 11:18 Room Air 11/28/18 09:41 70 16 97 Room Air 21 11/28/18 09:41 70 16 97 Room Air 21 11/28/18 09:00 Room Air 11/28/18 08:00 97.3 62 18 133/75 (94) 98 11/28/18 06:46 99.0 11/28/18 05:43 99.0 11/28/18 03:37 99.0 78 18 123/67 (85) 96 11/28/18 00:24 99.3 68 18 126/86 (99) 96 11/27/18 21:17 79 16 98 Room Air 21 11/27/18 21:16 72 16 98 Room Air 21 11/27/18 21:00 Room Air 11/27/18 19:56 99.6 81 19 119/80 (93) 95 11/27/18 16:00 97.9 68 22 135/60 (85) 97 Height (Feet): 5 Height (Inches): 6.00 Weight (Pounds): 250 Objective Gen: In Pain alert HEENT: NCAT, MMM, EOMI, PERRL, No Oral lesion, no scleral icterus NECK: full range of motion, supple, no meningismus, No LAD, No JVD LUNGS: CTAB, No W/C, No Accessory muscle use, Port left chest ( No e/p) CARDS: RRR, S1, S2, No M/R/G, ABD: Soft, NT, ND, No R/G, + BS, No HSM, No Masses Ext: C/C/E, Pulses 2+ B/L (DP, Rad), Hip and knee joint pain NEURO: A/O x 4, Strength and Sensation Grossly intact PSYCH: Mood/affect normal SKIN: Warm/dry, No rashes Laboratory Tests Test 11/28/18 05:20 White Blood Count 21.2 K/UL (4.8-10.8) H Red Blood Count 3.20 M/UL (4.70-6.10) L Hemoglobin 8.7 G/DL (14.2-18.0) L Hematocrit 27.5 % (42.0-52.0) L Mean Corpuscular Volume 86 FL (80-99) Mean Corpuscular Hemoglobin 27.1 PG (27.0-31.0) Mean Corpuscular Hemoglobin Concent 31.6 G/DL (32.0-36.0) L Red Cell Distribution Width 17.8 % (11.6-14.8) H Platelet Count 496 K/UL (150-450) H Mean Platelet Volume 6.4 FL (6.5-10.1) L Neutrophils (%) (Auto) % (45.0-75.0) Lymphocytes (%) (Auto) % (20.0-45.0) Monocytes (%) (Auto) % (1.0-10.0) Eosinophils (%) (Auto) % (0.0-3.0) Basophils (%) (Auto) % (0.0-2.0) Differential Total Cells Counted 100 Neutrophils % (Manual) 41 % (45-75) L Lymphocytes % (Manual) 51 % (20-45) H Monocytes % (Manual) 4 % (1-10) Eosinophils % (Manual) 2 % (0-3) Basophils % (Manual) 2 % (0-2) Band Neutrophils 0 % (0-8) Nucleated Red Blood Cells 13 /100 WBC Platelet Estimate Decreased L Platelet Morphology Normal Red Blood Cell Morphology Normal Hypochromasia 2+ Anisocytosis 1+ Sodium Level 140 MMOL/L (136-145) Potassium Level 3.2 MMOL/L (3.5-5.1) L Chloride Level 103 MMOL/L (98-107) Carbon Dioxide Level 29 MMOL/L (21-32) Anion Gap 8 mmol/L (5-15) Blood Urea Nitrogen 4 mg/dL (7-18) L Creatinine 0.4 MG/DL (0.55-1.30) L Estimat Glomerular Filtration Rate > 60 mL/min (>60) Glucose Level 108 MG/DL (74-106) H Calcium Level 8.4 MG/DL (8.5-10.1) L Current Medications Medications (Trade) Dose Ordered Sig/Arianne Route PRN Reason Start Time Stop Time Status Last Admin Dose Admin Acetaminophen (Tylenol) 650 mg Q4H PRN ORAL fever 11/23/18 22:00 12/23/18 21:59 Al Hydroxide/Mg Hydroxide (Mylanta II) 30 ml Q6H PRN ORAL dyspepsia 11/23/18 22:00 12/23/18 21:59 Aspirin (ASA) 81 mg DAILY ORAL 11/24/18 09:00 12/24/18 08:59 11/28/18 08:31 Chlorhexidine Gluconate (Jihan-Hex 2%) 1 applic DAILY@2000 TOPIC 11/25/18 20:00 12/25/18 19:59 11/26/18 20:09 Dextrose (Dextrose 50%) 25 ml Q30M PRN IV Hypoglycemia 11/23/18 22:00 12/23/18 21:59 Dextrose (Dextrose 50%) 50 ml Q30M PRN IV Hypoglycemia 11/23/18 22:00 12/23/18 21:59 Folic Acid (Folate) 1 mg DAILY ORAL 11/24/18 09:00 12/24/18 08:59 11/28/18 08:30 Heparin Sodium (Porcine) (Heparin 5000 units/ml) 5,000 units EVERY 12 HOURS SUBQ 11/24/18 09:00 12/24/18 08:59 Hydromorphone HCl (Dilaudid) 2 mg Q3H PRN IV pain 4-6 11/23/18 22:00 11/30/18 21:59 Hydromorphone HCl (Dilaudid) 3 mg Q3H PRN IVP For Pain 7-10 11/23/18 22:00 11/30/18 21:59 11/28/18 13:10 Hydroxyurea (Hydrea) 1,500 mg DAILY ORAL 11/24/18 09:00 11/29/18 08:59 11/28/18 08:31 Lorazepam (Ativan 2mg/ml 1ml) 0.5 mg Q4H PRN IV For Anxiety 11/23/18 22:00 11/30/18 21:59 Ondansetron HCl (Zofran) 4 mg Q6H PRN IVP Nausea & Vomiting 11/23/18 22:00 12/23/18 21:59 Oxycodone HCl (OxyCONTIN) 30 mg Q8HR ORAL 11/27/18 14:00 12/04/18 13:59 11/28/18 05:13 Polyethylene Glycol (Miralax) 17 gm HSPRN PRN ORAL Constipation 11/23/18 22:00 12/23/18 21:59 Salmeterol Xinafoate/ Fluticasone (Advair 100/50 Diskus) 1 puffs BIDRT INH 11/24/18 10:00 12/24/18 09:59 11/28/18 09:41 Sodium Chloride 1,000 ml @ 200 mls/hr Q5H IV 11/26/18 15:00 12/23/18 14:59 11/28/18 11:27 Zolpidem Tartrate (Ambien) 5 mg HSPRN PRN ORAL Insomnia 11/23/18 22:00 11/30/18 21:59 11/26/18 01:36 Anjana Bang M.D. Nov 28, 2018 13:21
--- NOTE | 2018-11-28 14:00 | NUR ---
NURSE NOTES: PATIENT SHOWERED; CENTRAL LINE DRESSING CHANGED.
[2018-11-28 16:00] VITALS: BP 128/99
[2018-11-28] MEDS ORDERED: 1/2 NS 1000ml IV ONE ×2 (16:28→16:29)
--- NOTE | 2018-11-28 18:37 | Internal Med Progress Note ---
Subjective Date of Service: Nov 28, 2018 Physician Name Edilson Rubalcava Attending Physician Jersey Bearden MD Current Medications Medications (Trade) Dose Ordered Sig/Arianne Route PRN Reason Start Time Stop Time Status Last Admin Dose Admin Acetaminophen (Tylenol) 650 mg Q4H PRN ORAL fever 11/23/18 22:00 12/23/18 21:59 Al Hydroxide/Mg Hydroxide (Mylanta II) 30 ml Q6H PRN ORAL dyspepsia 11/23/18 22:00 12/23/18 21:59 Aspirin (ASA) 81 mg DAILY ORAL 11/24/18 09:00 12/24/18 08:59 11/28/18 08:31 Chlorhexidine Gluconate (Jihan-Hex 2%) 1 applic DAILY@2000 TOPIC 11/25/18 20:00 12/25/18 19:59 11/26/18 20:09 Dextrose (Dextrose 50%) 25 ml Q30M PRN IV Hypoglycemia 11/23/18 22:00 12/23/18 21:59 Dextrose (Dextrose 50%) 50 ml Q30M PRN IV Hypoglycemia 11/23/18 22:00 12/23/18 21:59 Folic Acid (Folate) 1 mg DAILY ORAL 11/24/18 09:00 12/24/18 08:59 11/28/18 08:30 Heparin Sodium (Porcine) (Heparin 5000 units/ml) 5,000 units EVERY 12 HOURS SUBQ 11/24/18 09:00 12/24/18 08:59 Hydromorphone HCl (Dilaudid) 2 mg Q3H PRN IV pain 4-6 11/23/18 22:00 11/30/18 21:59 Hydromorphone HCl (Dilaudid) 3 mg Q3H PRN IVP For Pain 7-10 11/23/18 22:00 11/30/18 21:59 11/28/18 16:25 Hydroxyurea (Hydrea) 1,500 mg DAILY ORAL 11/24/18 09:00 11/29/18 08:59 11/28/18 08:31 Lorazepam (Ativan 2mg/ml 1ml) 0.5 mg Q4H PRN IV For Anxiety 11/23/18 22:00 11/30/18 21:59 Ondansetron HCl (Zofran) 4 mg Q6H PRN IVP Nausea & Vomiting 11/23/18 22:00 12/23/18 21:59 Oxycodone HCl (OxyCONTIN) 30 mg Q8HR ORAL 11/27/18 14:00 12/04/18 13:59 11/28/18 14:11 Polyethylene Glycol (Miralax) 17 gm HSPRN PRN ORAL Constipation 11/23/18 22:00 12/23/18 21:59 Salmeterol Xinafoate/ Fluticasone (Advair 100/50 Diskus) 1 puffs BIDRT INH 11/24/18 10:00 12/24/18 09:59 11/28/18 09:41 Sodium Chloride 1,000 ml @ 200 mls/hr Q5H IV 11/26/18 15:00 12/23/18 14:59 11/28/18 17:47 Zolpidem Tartrate (Ambien) 5 mg HSPRN PRN ORAL Insomnia 11/23/18 22:00 11/30/18 21:59 11/26/18 01:36 Allergies: Coded Allergies: CAPSAICIN (Verified Allergy, Unknown, 11/23/18) CEFTRIAXONE (Verified Allergy, Unknown, 11/23/18) Uncoded Allergies: CONTRAST (Adverse Reaction, Severe, Rash, 06/23/16) RADIOCONTRAST - RASH, ITCHING ROS Limited/Unobtainable: No Constitutional: Reports: no symptoms HEENT: Reports: no symptoms Cardiovascular: Reports: no symptoms Respiratory: Reports: no symptoms Gastrointestinal/Abdominal: Reports: no symptoms Genitourinary: Reports: no symptoms Neurologic/Psychiatric: Reports: no symptoms Subjective 22 YO M admitted with sickle cell crisis. C/O generalized pain. Cover for Int Franky-DR Bearden Objective Last Vital Signs Date Time Temp Pulse Resp B/P (MAP) Pulse Ox O2 Delivery O2 Flow Rate FiO2 11/28/18 16:00 97.9 66 18 128/99 (109) 98 11/28/18 11:18 Room Air 11/28/18 09:41 21 Laboratory Tests Test 11/28/18 05:20 White Blood Count 21.2 K/UL (4.8-10.8) H Red Blood Count 3.20 M/UL (4.70-6.10) L Hemoglobin 8.7 G/DL (14.2-18.0) L Hematocrit 27.5 % (42.0-52.0) L Mean Corpuscular Volume 86 FL (80-99) Mean Corpuscular Hemoglobin 27.1 PG (27.0-31.0) Mean Corpuscular Hemoglobin Concent 31.6 G/DL (32.0-36.0) L Red Cell Distribution Width 17.8 % (11.6-14.8) H Platelet Count 496 K/UL (150-450) H Mean Platelet Volume 6.4 FL (6.5-10.1) L Neutrophils (%) (Auto) % (45.0-75.0) Lymphocytes (%) (Auto) % (20.0-45.0) Monocytes (%) (Auto) % (1.0-10.0) Eosinophils (%) (Auto) % (0.0-3.0) Basophils (%) (Auto) % (0.0-2.0) Differential Total Cells Counted 100 Neutrophils % (Manual) 41 % (45-75) L Lymphocytes % (Manual) 51 % (20-45) H Monocytes % (Manual) 4 % (1-10) Eosinophils % (Manual) 2 % (0-3) Basophils % (Manual) 2 % (0-2) Band Neutrophils 0 % (0-8) Nucleated Red Blood Cells 13 /100 WBC Platelet Estimate Decreased L Platelet Morphology Normal Red Blood Cell Morphology Normal Hypochromasia 2+ Anisocytosis 1+ Sodium Level 140 MMOL/L (136-145) Potassium Level 3.2 MMOL/L (3.5-5.1) L Chloride Level 103 MMOL/L (98-107) Carbon Dioxide Level 29 MMOL/L (21-32) Anion Gap 8 mmol/L (5-15) Blood Urea Nitrogen 4 mg/dL (7-18) L Creatinine 0.4 MG/DL (0.55-1.30) L Estimat Glomerular Filtration Rate > 60 mL/min (>60) Glucose Level 108 MG/DL (74-106) H Calcium Level 8.4 MG/DL (8.5-10.1) L Intake and Output 11/27/18 11/28/18 19:00 07:00 Intake Total 700 ml 2950 ml Balance 700 ml 2950 ml Intake Oral 500 ml 800 ml IV Total 200 ml 2150 ml # Voids 2 2 # Bowel Movements 2 Objective PHYSICAL EXAMINATION: VITAL SIGNS: Temperature 98.5, respirations 20, pulse 63, and blood pressure 133/72. GENERAL: The patient is well-developed and well-nourished, slightly obese, male, in no apparent distress. HEENT: Eyes, pupils are equal and responsive to light and accommodation. Extraocular movements are intact. NECK: Supple without lymphadenopathy. CHEST: Lungs are clear to auscultation bilaterally without wheezes or rales. CARDIOVASCULAR: Regular rhythm and rate. S1 and S2 are normal without murmurs, rubs, or gallops. ABDOMEN: Soft, nontender, and nondistended. Positive bowel sounds. No evidence of hepatosplenomegaly. Currently, no rebound or guarding noted. EXTREMITIES: Negative for clubbing, cyanosis, or edema. RECTAL/GENITAL: Refused. NEUROLOGIC: Cranial nerves II through XII are grossly intact without focal deficits. Motor strength is 5/5 bilaterally. Deep tendon reflexes are 2+ planta Assessment/Plan Assessment/Plan ASSESSMENT: This is a 22-year-old male. 1. Sickle cell crisis. 2. Sickle cell disease. 3. Avascular necrosis of left hip pain. 4. Asthma. 5. Chest pain 6. leukocytosis TREATMENT: 1. Sickle cell disease/crisis. The patient is currently receiving intravenous fluids. The patient is receiving pain management with OxyContin and intravenous Dilaudid. A Hematology/Oncology consultation has been obtained with Dr. Davenport 2. Avascular necrosis of left hip. Hematology consult with Dr. Kerline Davenport. 3. Asthma. Continue Advair as above. 4. Chest pain. Stat EKG and troponin. 5. Leukocytosis-see ID note. Edilson Rubalcava MD Nov 28, 2018 18:37
--- NOTE | 2018-11-28 19:09 | NUR ---
HAND-OFF: Report given to EDU GUTIERREZ.
--- NOTE | 2018-11-28 19:50 | NUR ---
NURSE NOTES: Received a report from Buffy Hubbard RN. Pt is in stable condition. AAOX4. Able to make needs known. No c/o pain/discomfort. R chest port-a-cath is patent and intact. Bed in lowest position. Call light within reach. Will continue to monitor.
[2018-11-28 20:00] VITALS: BP 140/75
[2018-11-28] MEDS: Dyna-Hex 2% Top Sol 2oz TOPIC SCH (21:26)
[2018-11-29] VITALS: BP 141/97
[2018-11-29 03:55] VITALS: BP 154/79
[2018-11-29] MEDS: oxyCONTIN 10mg tab ORAL SCH ×3 (05:34→22:56)
--- NOTE | 2018-11-29 07:00 | NUR ---
HAND-OFF: Report given to EDU Carrasquillo.
[2018-11-29 07:26] LABS: BASOPHILS % (AUTO) 0.9 % (0.0-2.0); EOSINOPHILS % (AUTO) 2.1 % (0.0-3.0); HEMATOCRIT 25.9 % (42.0-52.0); HEMOGLOBIN 8.5 G/DL (14.2-18.0); LYMPHOCYTES % (AUTO) 36.5 % (20.0-45.0); MEAN CORPUSCULAR VOLUME 84 FL (80-99); MONOCYTES % (AUTO) 7.1 % (1.0-10.0); NEUTROPHILS % (AUTO) 53.3 % (45.0-75.0); PLATELET COUNT 484 K/UL (150-450); RED BLOOD COUNT 3.09 M/UL (4.70-6.10); RED CELL DISTRIBUTION WIDTH 17.8 % (11.6-14.8); WHITE BLOOD COUNT 14.4 K/UL (4.8-10.8)
[2018-11-29 07:38] LABS: ALANINE AMINOTRANSFERASE 65 U/L (12-78); ALBUMIN 3.3 G/DL (3.4-5.0); ALBUMIN/GLOBULIN RATIO 0.9 (1.0-2.7); ALKALINE PHOSPHATASE 82 U/L (46-116); ANION GAP 9 mmol/L (5-15); ASPARTATE AMINO TRANSFERASE 33 U/L (15-37); BILIRUBIN,TOTAL 0.9 MG/DL (0.2-1.0); BLOOD UREA NITROGEN 6 mg/dL (7-18); CALCIUM 8.5 MG/DL (8.5-10.1); CARBON DIOXIDE 28 MMOL/L (21-32); CHLORIDE 103 MMOL/L (98-107); CREATININE 0.5 MG/DL (0.55-1.30); POTASSIUM 3.6 MMOL/L (3.5-5.1); SODIUM 140 MMOL/L (136-145)
--- NOTE | 2018-11-29 07:58 | NUR ---
NURSE NOTES: Received report from EDU Miller. Pt in bed, A/Ox4, talkative, discussed plan of care, IV fluids running according to order, bed in lowest position, call light within reach, no apparent distress noted.
[2018-11-29 08:00] VITALS: BP 132/81
[2018-11-29] MEDS: Heparin 5000 units/ml inj SUBQ SCH ×2 (09:00→20:34)
[2018-11-29] MEDS: Wixela 100/50 Inhaler - 60 dose INH SCH ×2 (09:53→20:56)
[2018-11-29] MEDS: Aspirin Baby 81mg ORAL SCH (09:57)
[2018-11-29 12:00] VITALS: BP 138/41
--- NOTE | 2018-11-29 13:42 | Infectious Diseases Prog Note ---
Assessment/Plan Assessment/Plan Assessment: 22 yo male with PMHx of sickle cell, Asthma, Thalassemia and avascular necrosis of the left hip who presented to the ED on 11/23/18 with likely sickle cell crisis. Leukocytosis; improving Most likely secondary to sickle cell crisis Afebrile 11/23 Bcx NTD -11/28 CXR: No acute process CXR: Cardiomegaly with slight prominence of the pulmonary vascularity which may be related to low lung volumes. Correlate clinically to exclude mild congestive changes. No definite focal airspace consolidation, pleural effusion or pneumothorax.Right chest wall Mediport in place. Sickle cell disease S/P Splenectomy Asthma Thalassemia PLAN - Continue to monitor off abx - Montior CBC and Temps - Pain control -f/u Repeat Bcx x2 -Cdiff if diarrhea Thank you for this consult. We will continue to follow the patient during this hospitalization. Subjective Allergies: Coded Allergies: CAPSAICIN (Verified Allergy, Unknown, 11/23/18) CEFTRIAXONE (Verified Allergy, Unknown, 11/23/18) Uncoded Allergies: CONTRAST (Adverse Reaction, Severe, Rash, 06/23/16) RADIOCONTRAST - RASH, ITCHING Subjective afebrile leukocytosis improving off abx Objective Vital Signs Last 24 Hour Vital Signs Date Time Temp Pulse Resp B/P (MAP) Pulse Ox O2 Delivery O2 Flow Rate FiO2 11/29/18 12:00 98.2 66 18 138/41 (73) 95 11/29/18 10:28 97.9 11/29/18 10:03 Nasal Cannula 2.0 11/29/18 09:53 72 16 97 Room Air 21 11/29/18 09:53 74 16 98 Room Air 21 11/29/18 09:00 Room Air 11/29/18 08:00 97.3 66 21 132/81 (98) 95 11/29/18 03:55 97.9 71 20 154/79 (104) 98 71 11/29/18 00:00 98.4 71 18 141/97 (112) 98 71 11/28/18 22:26 67 16 98 Room Air 21 11/28/18 22:25 66 16 98 Room Air 21 11/28/18 21:00 Room Air 11/28/18 20:00 98.6 81 18 140/75 (96) 95 11/28/18 16:00 97.9 66 18 128/99 (109) 98 Height (Feet): 5 Height (Inches): 6.00 Weight (Pounds): 249 Objective Gen: In Pain alert HEENT: NCAT, MMM, EOMI, PERRL, No Oral lesion, no scleral icterus NECK: full range of motion, supple, no meningismus, No LAD, No JVD LUNGS: CTAB, No W/C, No Accessory muscle use, Port left chest ( No e/p) CARDS: RRR, S1, S2, No M/R/G, ABD: Soft, NT, ND, No R/G, + BS, No HSM, No Masses Ext: C/C/E, Pulses 2+ B/L (DP, Rad), Hip and knee joint pain NEURO: A/O x 4, Strength and Sensation Grossly intact PSYCH: Mood/affect normal SKIN: Warm/dry, No rashes Microbiology Date/Time Source Procedure Growth Status 11/27/18 15:20 Blood Blood Culture - Preliminary NO GROWTH AFTER 24 HOURS Resulted 11/27/18 15:20 Blood Blood Culture - Preliminary NO GROWTH AFTER 24 HOURS Resulted Laboratory Tests Test 11/29/18 05:48 White Blood Count 14.4 K/UL (4.8-10.8) H Red Blood Count 3.09 M/UL (4.70-6.10) L Hemoglobin 8.5 G/DL (14.2-18.0) L Hematocrit 25.9 % (42.0-52.0) L Mean Corpuscular Volume 84 FL (80-99) Mean Corpuscular Hemoglobin 27.5 PG (27.0-31.0) Mean Corpuscular Hemoglobin Concent 32.9 G/DL (32.0-36.0) Red Cell Distribution Width 17.8 % (11.6-14.8) H Platelet Count 484 K/UL (150-450) H Mean Platelet Volume 6.5 FL (6.5-10.1) Neutrophils (%) (Auto) 53.3 % (45.0-75.0) Lymphocytes (%) (Auto) 36.5 % (20.0-45.0) Monocytes (%) (Auto) 7.1 % (1.0-10.0) Eosinophils (%) (Auto) 2.1 % (0.0-3.0) Basophils (%) (Auto) 0.9 % (0.0-2.0) Sodium Level 140 MMOL/L (136-145) Potassium Level 3.6 MMOL/L (3.5-5.1) Chloride Level 103 MMOL/L (98-107) Carbon Dioxide Level 28 MMOL/L (21-32) Anion Gap 9 mmol/L (5-15) Blood Urea Nitrogen 6 mg/dL (7-18) L Creatinine 0.5 MG/DL (0.55-1.30) L Estimat Glomerular Filtration Rate > 60 mL/min (>60) Glucose Level 93 MG/DL (74-106) Calcium Level 8.5 MG/DL (8.5-10.1) Total Bilirubin 0.9 MG/DL (0.2-1.0) Aspartate Amino Transf (AST/SGOT) 33 U/L (15-37) Alanine Aminotransferase (ALT/SGPT) 65 U/L (12-78) Alkaline Phosphatase 82 U/L (46-116) Total Protein 7.1 G/DL (6.4-8.2) Albumin 3.3 G/DL (3.4-5.0) L Globulin 3.8 g/dL Albumin/Globulin Ratio 0.9 (1.0-2.7) L Current Medications Medications (Trade) Dose Ordered Sig/Arianne Route PRN Reason Start Time Stop Time Status Last Admin Dose Admin Acetaminophen (Tylenol) 650 mg Q4H PRN ORAL fever 11/23/18 22:00 12/23/18 21:59 Al Hydroxide/Mg Hydroxide (Mylanta II) 30 ml Q6H PRN ORAL dyspepsia 11/23/18 22:00 12/23/18 21:59 Aspirin (ASA) 81 mg DAILY ORAL 11/24/18 09:00 12/24/18 08:59 11/29/18 09:57 Chlorhexidine Gluconate (Jihan-Hex 2%) 1 applic DAILY@1999 TOPIC 11/25/18 20:00 12/25/18 19:59 11/28/18 21:26 Dextrose (Dextrose 50%) 25 ml Q30M PRN IV Hypoglycemia 11/23/18 22:00 12/23/18 21:59 Dextrose (Dextrose 50%) 50 ml Q30M PRN IV Hypoglycemia 11/23/18 22:00 12/23/18 21:59 Folic Acid (Folate) 1 mg DAILY ORAL 11/24/18 09:00 12/24/18 08:59 11/29/18 09:57 Heparin Sodium (Porcine) (Heparin 5000 units/ml) 5,000 units EVERY 12 HOURS SUBQ 11/24/18 09:00 12/24/18 08:59 Hydromorphone HCl (Dilaudid) 2 mg Q3H PRN IV pain 4-6 11/23/18 22:00 11/30/18 21:59 Hydromorphone HCl (Dilaudid) 3 mg Q3H PRN IVP For Pain 7-10 11/23/18 22:00 11/30/18 21:59 11/29/18 13:04 Lorazepam (Ativan 2mg/ml 1ml) 0.5 mg Q4H PRN IV For Anxiety 11/23/18 22:00 11/30/18 21:59 Ondansetron HCl (Zofran) 4 mg Q6H PRN IVP Nausea & Vomiting 11/23/18 22:00 12/23/18 21:59 Oxycodone HCl (OxyCONTIN) 30 mg Q8HR ORAL 11/27/18 14:00 12/04/18 13:59 11/29/18 05:34 Polyethylene Glycol (Miralax) 17 gm HSPRN PRN ORAL Constipation 11/23/18 22:00 12/23/18 21:59 Salmeterol Xinafoate/ Fluticasone (Advair 100/50 Diskus) 1 puffs BIDRT INH 11/24/18 10:00 12/24/18 09:59 11/29/18 09:53 Sodium Chloride 1,000 ml @ 200 mls/hr Q5H IV 11/26/18 15:00 12/23/18 14:59 11/29/18 09:58 Zolpidem Tartrate (Ambien) 5 mg HSPRN PRN ORAL Insomnia 11/23/18 22:00 11/30/18 21:59 11/26/18 01:36 Anjana Bang M.D. Nov 29, 2018 13:42
--- NOTE | 2018-11-29 13:47 | NUR ---
NURSE NOTES: Pt asking to have Port-a-cath needle changed. Spoke to Dr. Caicedo. Dr.A Caicedo stated okay to change. Will enter other nursing order
[2018-11-29 16:00] VITALS: BP 138/76
--- NOTE | 2018-11-29 16:23 | NUR ---
NURSE NOTES: Per pt's request, changed Port-a-cath needled and dressing. Inserted 22g needled, able to flush and good blood return. Pt receiving IV fluid hydration
[2018-11-29] MEDS: DiphenhydrAMINE 50mg/ml Inj IVP PRN (17:06)
--- NOTE | 2018-11-29 19:27 | NUR ---
HAND-OFF: Report given to EDU Dorsey.
--- NOTE | 2018-11-29 19:36 | Internal Med Progress Note ---
Subjective Date of Service: Nov 29, 2018 Physician Name Edilson Rubalcava Attending Physician Jersey Bearden MD Current Medications Medications (Trade) Dose Ordered Sig/Arianne Route PRN Reason Start Time Stop Time Status Last Admin Dose Admin Acetaminophen (Tylenol) 650 mg Q4H PRN ORAL fever 11/23/18 22:00 12/23/18 21:59 Al Hydroxide/Mg Hydroxide (Mylanta II) 30 ml Q6H PRN ORAL dyspepsia 11/23/18 22:00 12/23/18 21:59 Aspirin (ASA) 81 mg DAILY ORAL 11/24/18 09:00 12/24/18 08:59 11/29/18 09:57 Chlorhexidine Gluconate (Jihan-Hex 2%) 1 applic DAILY@2000 TOPIC 11/25/18 20:00 12/25/18 19:59 11/28/18 21:26 Dextrose (Dextrose 50%) 25 ml Q30M PRN IV Hypoglycemia 11/23/18 22:00 12/23/18 21:59 Dextrose (Dextrose 50%) 50 ml Q30M PRN IV Hypoglycemia 11/23/18 22:00 12/23/18 21:59 Diphenhydramine HCl (Benadryl) 50 mg Q6H PRN IVP Itching 11/29/18 17:00 12/29/18 16:59 11/29/18 17:06 Folic Acid (Folate) 1 mg DAILY ORAL 11/24/18 09:00 12/24/18 08:59 11/29/18 09:57 Heparin Sodium (Porcine) (Heparin 5000 units/ml) 5,000 units EVERY 12 HOURS SUBQ 11/24/18 09:00 12/24/18 08:59 Hydromorphone HCl (Dilaudid) 2 mg Q3H PRN IV pain 4-6 11/23/18 22:00 11/30/18 21:59 Hydromorphone HCl (Dilaudid) 3 mg Q3H PRN IVP For Pain 7-10 11/23/18 22:00 11/30/18 21:59 11/29/18 18:53 Lorazepam (Ativan 2mg/ml 1ml) 0.5 mg Q4H PRN IV For Anxiety 11/23/18 22:00 11/30/18 21:59 Ondansetron HCl (Zofran) 4 mg Q6H PRN IVP Nausea & Vomiting 11/23/18 22:00 12/23/18 21:59 Oxycodone HCl (OxyCONTIN) 30 mg Q8HR ORAL 11/27/18 14:00 12/04/18 13:59 11/29/18 14:11 Polyethylene Glycol (Miralax) 17 gm HSPRN PRN ORAL Constipation 11/23/18 22:00 12/23/18 21:59 Salmeterol Xinafoate/ Fluticasone (Advair 100/50 Diskus) 1 puffs BIDRT INH 11/24/18 10:00 12/24/18 09:59 11/29/18 09:53 Sodium Chloride 1,000 ml @ 200 mls/hr Q5H IV 11/26/18 15:00 12/23/18 14:59 11/29/18 18:56 Zolpidem Tartrate (Ambien) 5 mg HSPRN PRN ORAL Insomnia 11/23/18 22:00 11/30/18 21:59 11/26/18 01:36 Allergies: Coded Allergies: CAPSAICIN (Verified Allergy, Unknown, 11/23/18) CEFTRIAXONE (Verified Allergy, Unknown, 11/23/18) Uncoded Allergies: CONTRAST (Adverse Reaction, Severe, Rash, 06/23/16) RADIOCONTRAST - RASH, ITCHING ROS Limited/Unobtainable: No Constitutional: Reports: no symptoms HEENT: Reports: no symptoms Cardiovascular: Reports: no symptoms Respiratory: Reports: no symptoms Gastrointestinal/Abdominal: Reports: no symptoms Genitourinary: Reports: no symptoms Neurologic/Psychiatric: Reports: no symptoms Subjective 22 YO M admitted with sickle cell crisis. C/O generalized pain. Cover for Int Franky-DR Bearden Objective Last Vital Signs Date Time Temp Pulse Resp B/P (MAP) Pulse Ox O2 Delivery O2 Flow Rate FiO2 11/29/18 16:27 99.5 11/29/18 16:00 64 19 138/76 (96) 95 11/29/18 10:03 Nasal Cannula 2.0 11/29/18 09:53 21 Laboratory Tests Test 11/29/18 05:48 White Blood Count 14.4 K/UL (4.8-10.8) H Red Blood Count 3.09 M/UL (4.70-6.10) L Hemoglobin 8.5 G/DL (14.2-18.0) L Hematocrit 25.9 % (42.0-52.0) L Mean Corpuscular Volume 84 FL (80-99) Mean Corpuscular Hemoglobin 27.5 PG (27.0-31.0) Mean Corpuscular Hemoglobin Concent 32.9 G/DL (32.0-36.0) Red Cell Distribution Width 17.8 % (11.6-14.8) H Platelet Count 484 K/UL (150-450) H Mean Platelet Volume 6.5 FL (6.5-10.1) Neutrophils (%) (Auto) 53.3 % (45.0-75.0) Lymphocytes (%) (Auto) 36.5 % (20.0-45.0) Monocytes (%) (Auto) 7.1 % (1.0-10.0) Eosinophils (%) (Auto) 2.1 % (0.0-3.0) Basophils (%) (Auto) 0.9 % (0.0-2.0) Sodium Level 140 MMOL/L (136-145) Potassium Level 3.6 MMOL/L (3.5-5.1) Chloride Level 103 MMOL/L (98-107) Carbon Dioxide Level 28 MMOL/L (21-32) Anion Gap 9 mmol/L (5-15) Blood Urea Nitrogen 6 mg/dL (7-18) L Creatinine 0.5 MG/DL (0.55-1.30) L Estimat Glomerular Filtration Rate > 60 mL/min (>60) Glucose Level 93 MG/DL (74-106) Calcium Level 8.5 MG/DL (8.5-10.1) Total Bilirubin 0.9 MG/DL (0.2-1.0) Aspartate Amino Transf (AST/SGOT) 33 U/L (15-37) Alanine Aminotransferase (ALT/SGPT) 65 U/L (12-78) Alkaline Phosphatase 82 U/L (46-116) Total Protein 7.1 G/DL (6.4-8.2) Albumin 3.3 G/DL (3.4-5.0) L Globulin 3.8 g/dL Albumin/Globulin Ratio 0.9 (1.0-2.7) L Microbiology Date/Time Source Procedure Growth Status 11/27/18 15:20 Blood Blood Culture - Preliminary NO GROWTH AFTER 24 HOURS Resulted 11/27/18 15:20 Blood Blood Culture - Preliminary NO GROWTH AFTER 24 HOURS Resulted Intake and Output 11/28/18 11/29/18 18:59 06:59 Intake Total 500 ml 2000 ml Balance 500 ml 2000 ml Intake Oral 500 ml IV Total 2000 ml # Voids 2 # Bowel Movements 1 Objective PHYSICAL EXAMINATION: VITAL SIGNS: Temperature 98.5, respirations 20, pulse 63, and blood pressure 133/72. GENERAL: The patient is well-developed and well-nourished, slightly obese, male, in no apparent distress. HEENT: Eyes, pupils are equal and responsive to light and accommodation. Extraocular movements are intact. NECK: Supple without lymphadenopathy. CHEST: Lungs are clear to auscultation bilaterally without wheezes or rales. CARDIOVASCULAR: Regular rhythm and rate. S1 and S2 are normal without murmurs, rubs, or gallops. ABDOMEN: Soft, nontender, and nondistended. Positive bowel sounds. No evidence of hepatosplenomegaly. Currently, no rebound or guarding noted. EXTREMITIES: Negative for clubbing, cyanosis, or edema. RECTAL/GENITAL: Refused. NEUROLOGIC: Cranial nerves II through XII are grossly intact without focal deficits. Motor strength is 5/5 bilaterally. Deep tendon reflexes are 2+ planta Assessment/Plan Assessment/Plan ASSESSMENT: This is a 22-year-old male. 1. Sickle cell crisis. 2. Sickle cell disease. 3. Avascular necrosis of left hip pain. 4. Asthma. 5. Chest pain 6. leukocytosis TREATMENT: 1. Sickle cell disease/crisis. The patient is currently receiving intravenous fluids. The patient is receiving pain management with OxyContin and intravenous Dilaudid. A Hematology/Oncology consultation has been obtained with Dr. Davenport 2. Avascular necrosis of left hip. Hematology consult with Dr. Lewis Olmedo 3. Asthma. Continue Advair as above. 4. Chest pain. Stat EKG and troponin. 5. Leukocytosis-see ID note. Edilson Rubalcava MD Nov 29, 2018 19:36
--- NOTE | 2018-11-29 19:42 | NUR ---
CASE MANAGEMENT: REVIEW SI: SICKLE CELL CRISIS . ASTHMA T 99.5 HR 64 RR 16 BP 138/41 SAT 95% NC/2L WBC 14.4 H/H 8.5/25.9 IS: OXYCONTIN 30MG PO Q8HR NS IVF @ 200ML /HR ADVAIR INH BID MED/SURG STATUS DCP: PATIENT IS FROM HOME
[2018-11-29 20:00] VITALS: BP 139/59
--- NOTE | 2018-11-29 20:10 | NUR ---
NURSE NOTES: Pt is alert and orient x4. Pt is in RA, No SOB or acute respiratory distress noted. Pt has intact iv access (R subclavian port cath) running IVF at 200ml/hr. C/o 7/10 pain at this time, bed is locked and is in the lowest position, call light within easy reach. Will continue to monitor.
[2018-11-29] MEDS: Dyna-Hex 2% Top Sol 2oz TOPIC SCH (20:17)
[2018-11-30] VITALS (7 sets, daily range): BP systolic 121–164; BP diastolic 57–92
[2018-11-30] MEDS: DiphenhydrAMINE 50mg/ml Inj IVP PRN ×2 (01:14→08:11)
[2018-11-30] MEDS: oxyCONTIN 10mg tab ORAL SCH ×2 (06:01→15:01)
--- NOTE | 2018-11-30 06:48 | NUR ---
NURSE NOTES: Unable to draw AM labs from port-a-cath, payroll supervisor aware. [employer] EngineerGigi, unable to draw labs as well since patient is a hard stick. Patient told payroll supervisor to have AM nurse try later. Will endorse.
--- NOTE | 2018-11-30 07:10 | NUR ---
HAND-OFF: Report given to EDU Chapman.
--- NOTE | 2018-11-30 07:33 | NUR ---
NURSE NOTES: RN received pt in stable condition, awake in bed. No acute distress or SOB. Bed in low, locked position, call light within reach. Will continue to monitor.
[2018-11-30] MEDS: Aspirin Baby 81mg ORAL SCH (08:11)
[2018-11-30] MEDS: Heparin 5000 units/ml inj SUBQ SCH (08:11)
[2018-11-30] MEDS: Wixela 100/50 Inhaler - 60 dose INH SCH (09:20)
--- NOTE | 2018-11-30 09:54 | NUR ---
CASE MANGER REVIEW SI:SICKLE CELL CRISIS . ASTHMA VS: BP 154/92, P 57, T 98.5, RR 18, SpO2 99 IS:OXYCODONE HCI 30mg NS x1L IV FLUTICASONE 1puff INH HEPARIN SUBQ DILAUDID 2mg IV MED/SURG STATUS
[2018-11-30] MEDS ORDERED: Heplock Flush 100 units/ml 3 ml syr INJ SCH (11:00)
--- NOTE | 2018-11-30 12:54 | Infectious Diseases Prog Note ---
Assessment/Plan Assessment/Plan Assessment: 22 yo male with PMHx of sickle cell, Asthma, Thalassemia and avascular necrosis of the left hip who presented to the ED on 11/23/18 with likely sickle cell crisis. Leukocytosis; improving Most likely secondary to sickle cell crisis Afebrile 11/23 Bcx NTD -11/28 CXR: No acute process CXR: Cardiomegaly with slight prominence of the pulmonary vascularity which may be related to low lung volumes. Correlate clinically to exclude mild congestive changes. No definite focal airspace consolidation, pleural effusion or pneumothorax.Right chest wall Mediport in place. Sickle cell disease S/P Splenectomy Asthma Thalassemia PLAN - Continue to monitor off abx - Montior CBC and Temps - Pain control -f/u Repeat Bcx x2 -Cdiff if diarrhea Thank you for this consult. We will continue to follow the patient during this hospitalization. Subjective Allergies: Coded Allergies: CAPSAICIN (Verified Allergy, Unknown, 11/23/18) CEFTRIAXONE (Verified Allergy, Unknown, 11/23/18) Uncoded Allergies: CONTRAST (Adverse Reaction, Severe, Rash, 06/23/16) RADIOCONTRAST - RASH, ITCHING Subjective afebrile leukocytosis improving; no cbc today off abx Objective Vital Signs Last 24 Hour Vital Signs Date Time Temp Pulse Resp B/P (MAP) Pulse Ox O2 Delivery O2 Flow Rate FiO2 11/30/18 10:53 98.5 11/30/18 09:21 68 18 99 Room Air 21 11/30/18 09:20 69 18 98 Room Air 21 11/30/18 08:00 98.5 65 18 154/92 (112) 96 11/30/18 06:31 98.1 11/30/18 04:00 98.1 57 18 147/89 (108) 98 11/30/18 00:00 98.4 60 18 127/57 (80) 98 11/29/18 22:47 Nasal Cannula 2.0 11/29/18 20:58 61 18 97 Room Air 21 11/29/18 20:56 60 18 98 Room Air 21 11/29/18 20:00 98.5 59 18 139/59 (85) 98 11/29/18 16:27 99.5 11/29/18 16:00 99.5 64 19 138/76 (96) 95 Height (Feet): 5 Height (Inches): 6.00 Weight (Pounds): 249 Objective Gen: In Pain alert HEENT: NCAT, MMM, EOMI, PERRL, No Oral lesion, no scleral icterus NECK: full range of motion, supple, no meningismus, No LAD, No JVD LUNGS: CTAB, No W/C, No Accessory muscle use, Port left chest ( No e/p) CARDS: RRR, S1, S2, No M/R/G, ABD: Soft, NT, ND, No R/G, + BS, No HSM, No Masses Ext: C/C/E, Pulses 2+ B/L (DP, Rad), Hip and knee joint pain NEURO: A/O x 4, Strength and Sensation Grossly intact PSYCH: Mood/affect normal SKIN: Warm/dry, No rashes Microbiology Date/Time Source Procedure Growth Status 11/27/18 15:20 Blood Blood Culture - Preliminary NO GROWTH AFTER 48 HOURS Resulted 11/27/18 15:20 Blood Blood Culture - Preliminary NO GROWTH AFTER 48 HOURS Resulted Current Medications Medications (Trade) Dose Ordered Sig/Arianne Route PRN Reason Start Time Stop Time Status Last Admin Dose Admin Acetaminophen (Tylenol) 650 mg Q4H PRN ORAL fever 11/23/18 22:00 12/23/18 21:59 Al Hydroxide/Mg Hydroxide (Mylanta II) 30 ml Q6H PRN ORAL dyspepsia 11/23/18 22:00 12/23/18 21:59 Aspirin (ASA) 81 mg DAILY ORAL 11/24/18 09:00 12/24/18 08:59 11/30/18 08:11 Chlorhexidine Gluconate (Jihan-Hex 2%) 1 applic DAILY@2000 TOPIC 11/25/18 20:00 12/25/18 19:59 11/29/18 20:17 Dextrose (Dextrose 50%) 25 ml Q30M PRN IV Hypoglycemia 11/23/18 22:00 12/23/18 21:59 Dextrose (Dextrose 50%) 50 ml Q30M PRN IV Hypoglycemia 11/23/18 22:00 12/23/18 21:59 Diphenhydramine HCl (Benadryl) 50 mg Q6H PRN IVP Itching 11/29/18 17:00 12/29/18 16:59 11/30/18 08:11 Folic Acid (Folate) 1 mg DAILY ORAL 11/24/18 09:00 12/24/18 08:59 11/30/18 08:10 Heparin Sodium (Beef Lung) (Hep-Lock) 200 unit ONCE INJ 11/30/18 11:00 11/30/18 13:00 Heparin Sodium (Porcine) (Heparin 5000 units/ml) 5,000 units EVERY 12 HOURS SUBQ 11/24/18 09:00 12/24/18 08:59 Hydromorphone HCl (Dilaudid) 2 mg Q3H PRN IV pain 4-6 11/23/18 22:00 11/30/18 21:59 11/30/18 10:23 Hydromorphone HCl (Dilaudid) 3 mg Q3H PRN IVP For Pain 7-10 11/23/18 22:00 11/30/18 21:59 11/30/18 03:55 Lorazepam (Ativan 2mg/ml 1ml) 0.5 mg Q4H PRN IV For Anxiety 11/23/18 22:00 11/30/18 21:59 Ondansetron HCl (Zofran) 4 mg Q6H PRN IVP Nausea & Vomiting 11/23/18 22:00 12/23/18 21:59 Oxycodone HCl (OxyCONTIN) 30 mg Q8HR ORAL 11/27/18 14:00 12/04/18 13:59 11/30/18 06:01 Polyethylene Glycol (Miralax) 17 gm HSPRN PRN ORAL Constipation 11/23/18 22:00 12/23/18 21:59 Salmeterol Xinafoate/ Fluticasone (Advair 100/50 Diskus) 1 puffs BIDRT INH 11/24/18 10:00 12/24/18 09:59 11/30/18 09:20 Sodium Chloride 1,000 ml @ 200 mls/hr Q5H IV 11/26/18 15:00 12/23/18 14:59 11/30/18 03:53 Zolpidem Tartrate (Ambien) 5 mg HSPRN PRN ORAL Insomnia 11/23/18 22:00 11/30/18 21:59 11/26/18 01:36 Anjana Bang M.D. Nov 30, 2018 12:54
--- NOTE | 2018-11-30 15:19 | NUR ---
NURSE NOTES: Pt's port has no blood return, resistance to flush. Order for Heparin administered; no change. Charge nurse made aware.
[2018-11-30 15:58] LABS: ANION GAP 10 mmol/L (5-15); BLOOD UREA NITROGEN 4 mg/dL (7-18); CALCIUM 9.4 MG/DL (8.5-10.1); CARBON DIOXIDE 27 MMOL/L (21-32); CHLORIDE 101 MMOL/L (98-107); CREATININE 0.5 MG/DL (0.55-1.30); POTASSIUM 3.8 MMOL/L (3.5-5.1); SODIUM 138 MMOL/L (136-145)
--- NOTE | 2018-11-30 19:18 | NUR ---
HAND-OFF: Report given to AMA Rankin.
--- NOTE | 2018-11-30 19:30 | NUR ---
NURSE NOTES: RECEIVED PATIENT IN ROOM SITTING AT BEDSIDE, ALERT/ORIENTED X4, VERBALLY RESPONSIVE, DENIES PAIN. NO SIGNS AND SYMPTOMS OF ACUTE CARDIO RESPIRATORY DISTRESS/SHORTNESS OF BREATH, DENIES CHEST PAIN. NO REPORT OF GI DISCOMFORT, NO N/V/D. DISCHARGE TONIGHT, WAITING ON TAXI, TAXI VOUCHER AT BEDSIDE.
--- NOTE | 2018-11-30 20:48 | Internal Med Progress Note ---
Subjective Date of Service: Nov 30, 2018 Physician Name Edilson Rubalcava Attending Physician Jersey Bearden MD Current Medications Medications (Trade) Dose Ordered Sig/Arianne Route PRN Reason Start Time Stop Time Status Last Admin Dose Admin Acetaminophen (Tylenol) 650 mg Q4H PRN ORAL fever 11/23/18 22:00 12/23/18 21:59 Al Hydroxide/Mg Hydroxide (Mylanta II) 30 ml Q6H PRN ORAL dyspepsia 11/23/18 22:00 12/23/18 21:59 Aspirin (ASA) 81 mg DAILY ORAL 11/24/18 09:00 12/24/18 08:59 11/30/18 08:11 Chlorhexidine Gluconate (Jihan-Hex 2%) 1 applic DAILY@1999 TOPIC 11/25/18 20:00 12/25/18 19:59 11/29/18 20:17 Dextrose (Dextrose 50%) 25 ml Q30M PRN IV Hypoglycemia 11/23/18 22:00 12/23/18 21:59 Dextrose (Dextrose 50%) 50 ml Q30M PRN IV Hypoglycemia 11/23/18 22:00 12/23/18 21:59 Diphenhydramine HCl (Benadryl) 50 mg Q6H PRN IVP Itching 11/29/18 17:00 12/29/18 16:59 11/30/18 08:11 Folic Acid (Folate) 1 mg DAILY ORAL 11/24/18 09:00 12/24/18 08:59 11/30/18 08:10 Heparin Sodium (Porcine) (Heparin 5000 units/ml) 5,000 units EVERY 12 HOURS SUBQ 11/24/18 09:00 12/24/18 08:59 Hydromorphone HCl (Dilaudid) 2 mg Q3H PRN IV pain 4-6 11/23/18 22:00 11/30/18 21:59 11/30/18 17:05 Hydromorphone HCl (Dilaudid) 3 mg Q3H PRN IVP For Pain 7-10 11/23/18 22:00 11/30/18 21:59 11/30/18 03:55 Lorazepam (Ativan 2mg/ml 1ml) 0.5 mg Q4H PRN IV For Anxiety 11/23/18 22:00 11/30/18 21:59 Ondansetron HCl (Zofran) 4 mg Q6H PRN IVP Nausea & Vomiting 11/23/18 22:00 12/23/18 21:59 Oxycodone HCl (OxyCONTIN) 30 mg Q8HR ORAL 11/27/18 14:00 12/04/18 13:59 11/30/18 15:01 Polyethylene Glycol (Miralax) 17 gm HSPRN PRN ORAL Constipation 11/23/18 22:00 12/23/18 21:59 Salmeterol Xinafoate/ Fluticasone (Advair 100/50 Diskus) 1 puffs BIDRT INH 11/24/18 10:00 12/24/18 09:59 11/30/18 09:20 Sodium Chloride 1,000 ml @ 200 mls/hr Q5H IV 11/26/18 15:00 12/23/18 14:59 11/30/18 13:21 Zolpidem Tartrate (Ambien) 5 mg HSPRN PRN ORAL Insomnia 11/23/18 22:00 11/30/18 21:59 11/26/18 01:36 Allergies: Coded Allergies: CAPSAICIN (Verified Allergy, Unknown, 11/23/18) CEFTRIAXONE (Verified Allergy, Unknown, 11/23/18) Uncoded Allergies: CONTRAST (Adverse Reaction, Severe, Rash, 06/23/16) RADIOCONTRAST - RASH, ITCHING ROS Limited/Unobtainable: No Constitutional: Reports: no symptoms HEENT: Reports: no symptoms Cardiovascular: Reports: no symptoms Respiratory: Reports: no symptoms Gastrointestinal/Abdominal: Reports: no symptoms Genitourinary: Reports: no symptoms Neurologic/Psychiatric: Reports: no symptoms Subjective 22 YO M admitted with sickle cell crisis. C/O generalized pain. Cover for Int Franky-DR Bearden Objective Last Vital Signs Date Time Temp Pulse Resp B/P (MAP) Pulse Ox O2 Delivery O2 Flow Rate FiO2 11/30/18 17:37 98.5 11/30/18 16:00 73 18 126/73 (90) 96 11/30/18 09:21 Room Air 21 11/30/18 09:00 2.0 Laboratory Tests Test 11/30/18 14:45 White Blood Count Pending Red Blood Count Pending Hemoglobin Pending Hematocrit Pending Mean Corpuscular Volume Pending Mean Corpuscular Hemoglobin Pending Mean Corpuscular Hemoglobin Concent Pending Red Cell Distribution Width Pending Platelet Count Pending Mean Platelet Volume Pending Neutrophils (%) (Auto) Pending Lymphocytes (%) (Auto) Pending Monocytes (%) (Auto) Pending Eosinophils (%) (Auto) Pending Basophils (%) (Auto) Pending Sodium Level 138 MMOL/L (136-145) Potassium Level 3.8 MMOL/L (3.5-5.1) Chloride Level 101 MMOL/L (98-107) Carbon Dioxide Level 27 MMOL/L (21-32) Anion Gap 10 mmol/L (5-15) Blood Urea Nitrogen 4 mg/dL (7-18) L Creatinine 0.5 MG/DL (0.55-1.30) L Estimat Glomerular Filtration Rate > 60 mL/min (>60) Glucose Level 133 MG/DL (74-106) H Calcium Level 9.4 MG/DL (8.5-10.1) Intake and Output 11/29/18 11/30/18 18:59 06:59 Intake Total 2680 ml 1200 ml Balance 2680 ml 1200 ml Intake Oral 1080 ml IV Total 1600 ml 1200 ml # Voids 5 4 Objective PHYSICAL EXAMINATION: VITAL SIGNS: Temperature 98.5, respirations 20, pulse 63, and blood pressure 133/72. GENERAL: The patient is well-developed and well-nourished, slightly obese, male, in no apparent distress. HEENT: Eyes, pupils are equal and responsive to light and accommodation. Extraocular movements are intact. NECK: Supple without lymphadenopathy. CHEST: Lungs are clear to auscultation bilaterally without wheezes or rales. CARDIOVASCULAR: Regular rhythm and rate. S1 and S2 are normal without murmurs, rubs, or gallops. ABDOMEN: Soft, nontender, and nondistended. Positive bowel sounds. No evidence of hepatosplenomegaly. Currently, no rebound or guarding noted. EXTREMITIES: Negative for clubbing, cyanosis, or edema. RECTAL/GENITAL: Refused. NEUROLOGIC: Cranial nerves II through XII are grossly intact without focal deficits. Motor strength is 5/5 bilaterally. Deep tendon reflexes are 2+ planta Assessment/Plan Assessment/Plan ASSESSMENT: This is a 22-year-old male. 1. Sickle cell crisis. 2. Sickle cell disease. 3. Avascular necrosis of left hip pain. 4. Asthma. 5. Chest pain 6. leukocytosis TREATMENT: 1. Sickle cell disease/crisis. The patient is currently receiving intravenous fluids. The patient is receiving pain management with OxyContin and intravenous Dilaudid. A Hematology/Oncology consultation has been obtained with Dr. Davenport 2. Avascular necrosis of left hip. Hematology consult with Dr. Lewis Olmedo 3. Asthma. Continue Advair as above. 4. Chest pain. Stat EKG and troponin. 5. Leukocytosis-see ID note. 6. discharge home today 11/30/18 Edilson Rubalcava MD Nov 30, 2018 20:48
--- NOTE | 2018-11-30 21:00 | Consultation ---
History of Present Illness General Chief Complaint: Pain Reason for Consultation: Leukocytosis Present Illness Allergies: Coded Allergies: CAPSAICIN (Verified Allergy, Unknown, 11/23/18) CEFTRIAXONE (Verified Allergy, Unknown, 11/23/18) Uncoded Allergies: CONTRAST (Adverse Reaction, Severe, Rash, 06/23/16) RADIOCONTRAST - RASH, ITCHING Medication History Scheduled Aspirin* (Aspirin*), 81 MG ORAL DAILY, (Reported) Folic Acid* (Folic Acid*), 1 MG ORAL DAILY, (Reported) Hydroxyurea (Hydroxyurea), 1,500 MG PO DAILY, (Reported) Oxycodone Hcl Er* (Oxycontin*), 20 MG ORAL EVERY 12 HOURS, (Reported) Scheduled PRN Fluticasone/Salmeterol (Advair Hfa 115-21 Mcg Inhaler), 2 PUFFS INH EVERY 12 HOURS PRN for Shortness of Breath, (Reported) Hydromorphone Hcl (Hydromorphone Hcl), 16 MG PO Q4HR PRN for Severe Breakthru Pain (>7), (Reported) Discontinued Medications Hydroxyurea* (Hydrea*), 3,500 MG PO DAILY, (Reported) Discontinued Reason: Medication dose changed Patient History Healthcare decision maker Resuscitation status Full Code Advanced Directive on File Physical Exam Last 24 Hour Vital Signs Date Time Temp Pulse Resp B/P (MAP) Pulse Ox O2 Delivery O2 Flow Rate FiO2 11/30/18 17:37 98.5 11/30/18 16:00 99.3 73 18 126/73 (90) 96 11/30/18 15:31 98.5 11/30/18 12:00 98.5 69 18 164/72 (102) 99 11/30/18 09:21 68 18 99 Room Air 21 11/30/18 09:20 69 18 98 Room Air 21 11/30/18 09:00 Nasal Cannula 2.0 11/30/18 08:00 98.5 65 18 154/92 (112) 96 11/30/18 04:00 98.1 57 18 147/89 (108) 98 11/30/18 00:00 98.4 60 18 127/57 (80) 98 11/29/18 22:47 Nasal Cannula 2.0 Intake and Output 11/29/18 11/30/18 18:59 06:59 Intake Total 2680 ml 1200 ml Balance 2680 ml 1200 ml Intake Oral 1080 ml IV Total 1600 ml 1200 ml # Voids 5 4 Laboratory Tests Test 11/30/18 14:45 White Blood Count Pending Red Blood Count Pending Hemoglobin Pending Hematocrit Pending Mean Corpuscular Volume Pending Mean Corpuscular Hemoglobin Pending Mean Corpuscular Hemoglobin Concent Pending Red Cell Distribution Width Pending Platelet Count Pending Mean Platelet Volume Pending Neutrophils (%) (Auto) Pending Lymphocytes (%) (Auto) Pending Monocytes (%) (Auto) Pending Eosinophils (%) (Auto) Pending Basophils (%) (Auto) Pending Sodium Level 138 MMOL/L (136-145) Potassium Level 3.8 MMOL/L (3.5-5.1) Chloride Level 101 MMOL/L (98-107) Carbon Dioxide Level 27 MMOL/L (21-32) Anion Gap 10 mmol/L (5-15) Blood Urea Nitrogen 4 mg/dL (7-18) L Creatinine 0.5 MG/DL (0.55-1.30) L Estimat Glomerular Filtration Rate > 60 mL/min (>60) Glucose Level 133 MG/DL (74-106) H Calcium Level 9.4 MG/DL (8.5-10.1) Height (Feet): 5 Height (Inches): 6.00 Weight (Pounds): 249 Medications Current Medications Medications (Trade) Dose Ordered Sig/Arianne Route PRN Reason Start Time Stop Time Status Last Admin Dose Admin Acetaminophen (Tylenol) 650 mg Q4H PRN ORAL fever 11/23/18 22:00 12/23/18 21:59 Al Hydroxide/Mg Hydroxide (Mylanta II) 30 ml Q6H PRN ORAL dyspepsia 11/23/18 22:00 12/23/18 21:59 Aspirin (ASA) 81 mg DAILY ORAL 11/24/18 09:00 12/24/18 08:59 11/30/18 08:11 Chlorhexidine Gluconate (Jihan-Hex 2%) 1 applic DAILY@1999 TOPIC 11/25/18 20:00 12/25/18 19:59 11/29/18 20:17 Dextrose (Dextrose 50%) 25 ml Q30M PRN IV Hypoglycemia 11/23/18 22:00 12/23/18 21:59 Dextrose (Dextrose 50%) 50 ml Q30M PRN IV Hypoglycemia 11/23/18 22:00 12/23/18 21:59 Diphenhydramine HCl (Benadryl) 50 mg Q6H PRN IVP Itching 11/29/18 17:00 12/29/18 16:59 11/30/18 08:11 Folic Acid (Folate) 1 mg DAILY ORAL 11/24/18 09:00 12/24/18 08:59 11/30/18 08:10 Heparin Sodium (Porcine) (Heparin 5000 units/ml) 5,000 units EVERY 12 HOURS SUBQ 11/24/18 09:00 12/24/18 08:59 Hydromorphone HCl (Dilaudid) 2 mg Q3H PRN IV pain 4-6 11/23/18 22:00 11/30/18 21:59 11/30/18 17:05 Hydromorphone HCl (Dilaudid) 3 mg Q3H PRN IVP For Pain 7-10 11/23/18 22:00 11/30/18 21:59 11/30/18 03:55 Lorazepam (Ativan 2mg/ml 1ml) 0.5 mg Q4H PRN IV For Anxiety 11/23/18 22:00 11/30/18 21:59 Ondansetron HCl (Zofran) 4 mg Q6H PRN IVP Nausea & Vomiting 11/23/18 22:00 12/23/18 21:59 Oxycodone HCl (OxyCONTIN) 30 mg Q8HR ORAL 11/27/18 14:00 12/04/18 13:59 11/30/18 15:01 Polyethylene Glycol (Miralax) 17 gm HSPRN PRN ORAL Constipation 11/23/18 22:00 12/23/18 21:59 Salmeterol Xinafoate/ Fluticasone (Advair 100/50 Diskus) 1 puffs BIDRT INH 11/24/18 10:00 12/24/18 09:59 11/30/18 09:20 Sodium Chloride 1,000 ml @ 200 mls/hr Q5H IV 11/26/18 15:00 12/23/18 14:59 11/30/18 13:21 Zolpidem Tartrate (Ambien) 5 mg HSPRN PRN ORAL Insomnia 11/23/18 22:00 11/30/18 21:59 11/26/18 01:36 Assessment/Plan Assessment/Plan: Hematology/Oncology Consultation Requesting MD: Edilson Rubalcava Date of Service: 11/30/18 Reason for consultation: Sickle cell disease and Anemia HISTORY OF PRESENT ILLNESS: A 22-year-old male admitted yesterday complaining of body pain for two days. He had history of sickle cell disease and every couple of months, he is hospitalized with sick cell crisis. He had leukocytosis of 14.4 at the admission, currently resolved. Hematology/Oncology was consulted for Sickle cell disease and Anemia, hg 8.8, seen by pain management and heme consulted. PAST MEDICAL HISTORY: Significant for asthma and sickle cell. PAST SURGICAL HISTORY: Splenectomy. ALLERGIES: Rocephin, capsaicin, contrast. MEDICATIONS: Aspirin, folic acid, hydroxyurea, and OxyContin. FAMILY HISTORY: Does have history of sickle cell. SOCIAL HISTORY: Denies history of smoking, alcohol, or illicit drugs. REVIEW OF SYSTEMS: HEENT: Denies headaches. PULMONARY: Denies shortness of breath. Denies cough. CARDIOVASCULAR: Does have chest pain for two days. Denies orthopnea. GASTROINTESTINAL: Denies nausea, vomiting, diarrhea. EXTREMITIES: Reports bilateral knee pain as well as chest pain going on for 2 days. CENTRAL NERVOUS SYSTEMS: Denies change in vision or speech pattern. PHYSICAL EXAMINATION: VITAL SIGNS: have been reviewed HEENT: PERRLA. NECK: Supple. No lymphadenopathy. CHEST: Clear to auscultation CARDIOVASCULAR: Regular rate and rhythm. No murmurs or extra sounds. ABDOMEN: Soft, nontender, nondistended. No organomegaly. EXTREMITIES: No edema. Moves all four extremities. NEUROLOGIC: Sensory intact to touch. Reflexes are equal on both sides. Moves all four extremities. LABORATORY DATA: Current Medications Medications (Trade) Dose Ordered Sig/Arianne Route PRN Reason Start Time Stop Time Status Last Admin Dose Admin Acetaminophen (Tylenol) 650 mg Q4H PRN ORAL fever 11/23/18 22:00 12/23/18 21:59 Al Hydroxide/Mg Hydroxide (Mylanta II) 30 ml Q6H PRN ORAL dyspepsia 11/23/18 22:00 12/23/18 21:59 Aspirin (ASA) 81 mg DAILY ORAL 11/24/18 09:00 12/24/18 08:59 11/30/18 08:11 Chlorhexidine Gluconate (Jihan-Hex 2%) 1 applic DAILY@2000 TOPIC 11/25/18 20:00 12/25/18 19:59 11/29/18 20:17 Dextrose (Dextrose 50%) 25 ml Q30M PRN IV Hypoglycemia 11/23/18 22:00 12/23/18 21:59 Dextrose (Dextrose 50%) 50 ml Q30M PRN IV Hypoglycemia 11/23/18 22:00 12/23/18 21:59 Diphenhydramine HCl (Benadryl) 50 mg Q6H PRN IVP Itching 11/29/18 17:00 12/29/18 16:59 11/30/18 08:11 Folic Acid (Folate) 1 mg DAILY ORAL 11/24/18 09:00 12/24/18 08:59 11/30/18 08:10 Heparin Sodium (Porcine) (Heparin 5000 units/ml) 5,000 units EVERY 12 HOURS SUBQ 11/24/18 09:00 12/24/18 08:59 Hydromorphone HCl (Dilaudid) 2 mg Q3H PRN IV pain 4-6 11/23/18 22:00 11/30/18 21:59 11/30/18 17:05 Hydromorphone HCl (Dilaudid) 3 mg Q3H PRN IVP For Pain 7-10 11/23/18 22:00 11/30/18 21:59 11/30/18 03:55 Lorazepam (Ativan 2mg/ml 1ml) 0.5 mg Q4H PRN IV For Anxiety 11/23/18 22:00 11/30/18 21:59 Ondansetron HCl (Zofran) 4 mg Q6H PRN IVP Nausea & Vomiting 11/23/18 22:00 12/23/18 21:59 Oxycodone HCl (OxyCONTIN) 30 mg Q8HR ORAL 11/27/18 14:00 12/04/18 13:59 11/30/18 15:01 Polyethylene Glycol (Miralax) 17 gm HSPRN PRN ORAL Constipation 11/23/18 22:00 12/23/18 21:59 Salmeterol Xinafoate/ Fluticasone (Advair 100/50 Diskus) 1 puffs BIDRT INH 11/24/18 10:00 12/24/18 09:59 11/30/18 09:20 Sodium Chloride 1,000 ml @ 200 mls/hr Q5H IV 11/26/18 15:00 12/23/18 14:59 11/30/18 13:21 Zolpidem Tartrate (Ambien) 5 mg HSPRN PRN ORAL Insomnia 11/23/18 22:00 11/30/18 21:59 11/26/18 01:36 Laboratory Tests Test 11/30/18 14:45 White Blood Count Pending Red Blood Count Pending Hemoglobin Pending Hematocrit Pending Mean Corpuscular Volume Pending Mean Corpuscular Hemoglobin Pending Mean Corpuscular Hemoglobin Concent Pending Red Cell Distribution Width Pending Platelet Count Pending Mean Platelet Volume Pending Neutrophils (%) (Auto) Pending Lymphocytes (%) (Auto) Pending Monocytes (%) (Auto) Pending Eosinophils (%) (Auto) Pending Basophils (%) (Auto) Pending Sodium Level 138 MMOL/L (136-145) Potassium Level 3.8 MMOL/L (3.5-5.1) Chloride Level 101 MMOL/L (98-107) Carbon Dioxide Level 27 MMOL/L (21-32) Anion Gap 10 mmol/L (5-15) Blood Urea Nitrogen 4 mg/dL (7-18) L Creatinine 0.5 MG/DL (0.55-1.30) L Estimat Glomerular Filtration Rate > 60 mL/min (>60) Glucose Level 133 MG/DL (74-106) H Calcium Level 9.4 MG/DL (8.5-10.1) ASSESSMENT AND PLAN: 1. 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 --> Presented in sickle crisis. on hydrea, opioids --> retic daily on a prn basis, proper response shown --> cbc has been reviewed --> continue hydrea 3500mg po daily --> continue indiral powder adjunct medication --> appreciate pain management recs --> stable for dc --> return precautions given 2. Anemia, secondary to sickle cell disease/B thalassemia --> trend hgb 10-->8.8 --> retic and ldh daily 3. Thrombocytosis, potentially secondary to reactive process --> 616k -->512k 4. Hyperproteinemia --> spep reviewed last admission 5. Leukocytosis could be related to infection --> monitor for fever, if recurrent, obtain w/i The timing of this note does not necessarily reflect the time of the patient was seen. Greatly appreciate consultation! Lewis Olmedo MD Nov 30, 2018 21:00
--- NOTE | 2018-11-30 21:16 | NUR ---
NURSE NOTES: DISCHARGED HOME VIA TAXI IN STABLE CONDITION, PATIENTS BELONGINGS LIST SIGNED.
--- NOTE | 2018-12-01 13:51 | Discharge Summary ---
Discharge Summary Discharge Summary _ DATE OF ADMISSION: 11/23/2018 DATE OF DISCHARGE: 11/30/2018 ADMITTING MD: Dr. Jersey Bearden DISCHARGED BY: Dr. Ranjith Caicedo CONSULTANTS: Dr. Ranjith Bang [facility] HOSPITAL COURSE: Patient is a 22-year-old male, with history of sickle cell disease, presented with chief complaint of generalized pain. Patient has history of sickle cell disease. He had several sickle cell crisis during his lifetime. Patient stated current sickle cell crisis began on 11/22/2018. He began to experience bilateral hip pain. He also had bilateral knee pain. Pain radiated to bilateral ankles. He then presented to the emergency room. On evaluation ED, vital signs are stable. Blood work showed WBC elevated to 19.. Hemoglobin was 10, hematocrit 32. Platelet count 6.7. Reticulocyte count elevated to 9. Lactic acid is 1.9. Chest x-ray was within normal limits. EKG showed sinus bradycardia. He was IV hydration. He was given Dilaudid for pain. He continued to have pain and required multiple doses of strong opiate medications. He was then admitted for sickle cell crisis. ID was consulted. Patient has leukocytosis most likely secondary to sickle cell disease. Patient was afebrile. He was monitored off antibiotics. He was given pain management. He complained of chest pain. Stat troponin and EKG were negative. Funeral Director And Embalmer was consulted. 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 He was continued on Hydrea. Hemoglobin levels have been normal. He had elevated platelet count, thrombocytosis, potentially secondary to reactive process. Platelet levels eventually down trended. Blood cultures did not isolate any growth. On 11/27/2018, there was a spike and WBC, went up to 24. Repeat blood culture was obtained. He was continued off antibiotics. Leukocytosis eventually down trended. Repeat blood culture did not isolate any growth. LDH was normal. Pain was better controlled. He was discharged home. FINAL DIAGNOSES: Sickle cell crisis Sickle cell disease status post splenectomy Vascular necrosis of left Asthma Leukocytosis, improving, most likely secondary to sickle cell crisis Thalassemia Thrombocytosis Anemia Hyperproteinemia DISPOSITION: Patient was discharged home. DISCHARGE MEDICATIONS: Refer to Discharge Medication List. DISCHARGE INSTRUCTIONS: Follow-up in a week. I have been assigned to complete a discharge summary on this account, I was not involved with the patient's management. Taylor Garcia NP Dec 01, 2018 13:51
== END 2018-11-30 20:15 | disposition home or self-care (01) | DRG 662 ==
LOC: EMR 18:41 → EDBEDREQ 19:12 → 4E 19:45 → EDBEDREQ 20:36
DX: D57.00 Hb-SS disease with crisis, unspecified (principal); M87.852 Other osteonecrosis, left femur; E88.09 Other disorders of plasma-protein metabolism, not elsewhere classified; D57.419 Sickle-cell thalassemia, unspecified, with crisis; J45.909 Unspecified asthma, uncomplicated; Z79.82 Long term (current) use of aspirin; Z88.1 Allergy status to other antibiotic agents; Z91.041 Radiographic dye allergy status; Z88.8 Allergy status to other drugs, medicaments and biological substances; Z90.81 Acquired absence of spleen; D47.3 Essential (hemorrhagic) thrombocythemia
CPT/HCPCS: 36415; 71045; 80048; 80053; 82248; 82550; 83605; 83615; 84484; 85007; 85025; 85044; 87040; 93005; 94640; 96361; 96374; 96375; 96376; 99285; J2405; J8499

== ENCOUNTER 2018-12-12 08:24 | Inpatient (IN) | payer MEDICAID ==
[~2018-12-12] VITALS: Ht 167.6 cm; Wt 112.9 kg
[~2018-12-12 08:24] MED LIST changes: +HYDROXYUREA500 M1 PO
[2018-12-12] MEDS ORDERED: Morphine Sulfate 4mg/ml Inj (IV USE ONLY) IVP ONE ×2 (08:45→10:45)
[2018-12-12] MEDS ORDERED: Morphine Sulfate 4mg/ml Inj (IV USE ONLY) ONE (09:19)
[2018-12-12 09:20] VITALS: BP 126/77
--- NOTE | 2018-12-12 09:28 | NUR ---
ED Nurse Note: pt walked in due to sickle cell crisis. pt is complaining of pain in different part of the body. pt has access on the righ chest. seen by ermd. with orders made and carried out. blood drawn and sent to lab. iv fluid started. will continue to monitor.
[2018-12-12 09:39] LABS: ANION GAP 8 mmol/L (5-15); BLOOD UREA NITROGEN 6 mg/dL (7-18); CALCIUM 9.8 MG/DL (8.5-10.1); CARBON DIOXIDE 28 MMOL/L (21-32); CHLORIDE 103 MMOL/L (98-107); CREATININE 0.6 MG/DL (0.55-1.30); POTASSIUM 4.3 MMOL/L (3.5-5.1); SODIUM 139 MMOL/L (136-145)
[2018-12-12 09:41] LABS: HEMATOCRIT 35.6 % (42.0-52.0); MEAN CORPUSCULAR VOLUME 84 FL (80-99); PLATELET COUNT 397 K/UL (150-450); RED BLOOD COUNT 4.22 M/UL (4.70-6.10); RED CELL DISTRIBUTION WIDTH 17.6 % (11.6-14.8); WHITE BLOOD COUNT 19.1 K/UL (4.8-10.8)
[2018-12-12 09:44] LABS: ALANINE AMINOTRANSFERASE 179 U/L (12-78); ALBUMIN 4.4 G/DL (3.4-5.0); ALBUMIN/GLOBULIN RATIO 0.9 (1.0-2.7); ALKALINE PHOSPHATASE 112 U/L (46-116); ASPARTATE AMINO TRANSFERASE 114 U/L (15-37)
[2018-12-12 09:54] LABS: BILIRUBIN,DIRECT 0.4 MG/DL (0.0-0.3)
--- NOTE | 2018-12-12 11:45 | NUR ---
ED Nurse Note: [facility] CALLED FOR PT TRANSFER. PER EDU MENDOZA, UNIT NOT READY. NEEDS 10 MORE MINUTES. WILL CALL BACK.
--- NOTE | 2018-12-12 12:08 | NUR ---
ED Nurse Note: [facility] CALLED FOR PT TRANSFER. REPORT GIVEN TO EDU MENA. [facility] READY TO ACCEPT PT. PT TAKEN UP TO [facility] VIA GURNEY WITH ALL BELONGINGS ACCOMPANIED BY EMT. VSS.
[2018-12-12 12:20] VITALS: BP 136/85
--- NOTE | 2018-12-12 12:20 | NUR ---
NURSE NOTES: ADMITTED A 23 YR OLD MALE WITH DX OF SICKLE CELL CRISIS. AWAKE/ALERT. ADM CARE DONE SEE ASSESSMENT.
--- NOTE | 2018-12-12 13:00 | NUR ---
NURSE NOTES: DR Nubia CASTILLO CALLED RE: PT'S ADM AND ORDERS. LEFT MESSAGE TO RETURN CALL.
--- NOTE | 2018-12-12 13:22 | Emergency Room Report ---
History of Present Illness General Chief Complaint: Pain Source: Patient Present Illness HPI Patient presents with complaints of diffuse body pain He reports that he has a history of sickle cell disease Usually followed at Dr. davenport office Patient had recent hospitalization reports being seen at the office since then however today as the pain worsened diffusely He presents to the ER He has increased nausea denies vomiting denies any diarrhea denies any fevers or chills Allergies: Coded Allergies: CAPSAICIN (Verified Allergy, Unknown, 11/23/18) CEFTRIAXONE (Verified Allergy, Unknown, 11/23/18) Uncoded Allergies: CONTRAST (Adverse Reaction, Severe, Rash, 06/23/16) RADIOCONTRAST - RASH, ITCHING Patient History Past Medical History: see triage record Pertinent Family History: none Reviewed Nursing Documentation: PMH: Agreed; PSxH: Agreed Nursing Documentation-PMH Past Medical History: No History, Except For Hx Cardiac Problems: No Hx Hypertension: No - Port-A-Cath Hx Pacemaker: No Hx Asthma: Yes Hx COPD: No Hx Diabetes: No Hx Cancer: No Hx Gastrointestinal Problems: No Hx Dialysis: No Hx Neurological Problems: No Hx Cerebrovascular Accident: No Hx Seizures: No Review of Systems All Other Systems: negative except mentioned in HPI Physical Exam Vital Signs Date Time Temp Pulse Resp B/P (MAP) Pulse Ox O2 Delivery O2 Flow Rate FiO2 12/12/18 08:26 98.8 86 20 94 Room Air 12/12/18 09:20 126/77 Sp02 EP Interpretation: reviewed, normal General Appearance: well appearing, no apparent distress Head: normocephalic, atraumatic Eyes: bilateral eye PERRL, bilateral eye EOMI ENT: hearing 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, normal pharynx, TMs + canals normal, uvula midline Neck: full range of motion, supple, no meningismus, no bony tend Respiratory: lungs clear, normal breath sounds, no rhonchi, no respiratory distress, no retraction, no accessory muscle use Cardiovascular #1: normal peripheral pulses, regular rate, rhythm, no edema, no gallop, no JVD, no murmur Gastrointestinal: normal bowel sounds, non tender, soft, no mass, no organomegaly, non-distended, no guarding, no hernia, no pulsatile mass, no rebound Genitourinary: no CVA tenderness Musculoskeletal: normal inspection 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, responsive, rivet tester III-XII nml as tested, motor strength/ tone normal, sensory intact Psychiatric: mood/affect normal Skin: normal color, no rash, warm/dry, palpation normal, other - Port-A-Cath right upper chest Lymphatic: normal inspection, no adenopathy Medical Decision Making Diagnostic Impression: Primary Impression: Sickle cell crisis ER Course Multiple differentials and consideration Patient initiated with IV hydration Differentials such as crisis, versus other cardiac syndrome is considered Patient further hydrated pain medication provided and secondary to abnormal blood work patient requires inpatient care Labs Test 12/12/18 09:09 White Blood Count 19.1 K/UL (4.8-10.8) Red Blood Count 4.22 M/UL (4.70-6.10) Hemoglobin 11.0 G/DL (14.2-18.0) Hematocrit 35.6 % (42.0-52.0) Mean Corpuscular Volume 84 FL (80-99) Mean Corpuscular Hemoglobin 26.1 PG (27.0-31.0) Mean Corpuscular Hemoglobin Concent 31.0 G/DL (32.0-36.0) Red Cell Distribution Width 17.6 % (11.6-14.8) Platelet Count 397 K/UL (150-450) Mean Platelet Volume 7.3 FL (6.5-10.1) Neutrophils (%) (Auto) % (45.0-75.0) Lymphocytes (%) (Auto) % (20.0-45.0) Monocytes (%) (Auto) % (1.0-10.0) Eosinophils (%) (Auto) % (0.0-3.0) Basophils (%) (Auto) % (0.0-2.0) Differential Total Cells Counted 100 Neutrophils % (Manual) 35 % (45-75) Lymphocytes % (Manual) 56 % (20-45) Monocytes % (Manual) 8 % (1-10) Eosinophils % (Manual) 1 % (0-3) Basophils % (Manual) 0 % (0-2) Band Neutrophils 0 % (0-8) Nucleated Red Blood Cells 20 /100 WBC Platelet Estimate Adequate Platelet Morphology Normal Hypochromasia 1+ Reticulocyte Count 10.9 % (0.5-2.0) Sodium Level 139 MMOL/L (136-145) Potassium Level 4.3 MMOL/L (3.5-5.1) Chloride Level 103 MMOL/L (98-107) Carbon Dioxide Level 28 MMOL/L (21-32) Anion Gap 8 mmol/L (5-15) Blood Urea Nitrogen 6 mg/dL (7-18) Creatinine 0.6 MG/DL (0.55-1.30) Estimat Glomerular Filtration Rate > 60 mL/min (>60) Glucose Level 132 MG/DL (74-106) Calcium Level 9.8 MG/DL (8.5-10.1) Total Bilirubin 2.0 MG/DL (0.2-1.0) Direct Bilirubin 0.4 MG/DL (0.0-0.3) Aspartate Amino Transf (AST/SGOT) 114 U/L (15-37) Alanine Aminotransferase (ALT/SGPT) 179 U/L (12-78) Alkaline Phosphatase 112 U/L (46-116) Total Protein 9.3 G/DL (6.4-8.2) Albumin 4.4 G/DL (3.4-5.0) Globulin 4.9 g/dL Albumin/Globulin Ratio 0.9 (1.0-2.7) Lipase 67 U/L (73-393) Rhythm Strip Diag. Results EP Interpretation: yes Rate: 80 Rhythm: NSR, no PVC's, no ectopy Last Vital Signs Date Time Temp Pulse Resp B/P (MAP) Pulse Ox O2 Delivery O2 Flow Rate FiO2 12/12/18 12:32 Room Air 12/12/18 12:08 98.7 74 17 131/79 99 Status: improved Disposition: ADMITTED INPATIENT Condition: Serious Referrals: Kerline Davenport MD (PCP) Tevin Petersen DO December 12, 2018 13:21
[2018-12-12] MEDS ORDERED: Dextrose 50% 25ml Syringe IV PRN (13:45)
[2018-12-12] MEDS ORDERED: Zolpidem 5mg tab ORAL PRN (13:45)
[2018-12-12] MEDS ORDERED: LORazepam Inj 2mg/ml 1ml IV PRN (13:45)
[2018-12-12] MEDS ORDERED: Miralax 17gm pkt ORAL PRN (13:45)
[2018-12-12 15:50] VITALS: BP 126/68
--- NOTE | 2018-12-12 17:59 | History & Physical ---
History and Physical History & Physicial Dictated for Int Med-Dr Bearden no. [id number] Edilson Rubalcava MD December 12, 2018 17:59
--- NOTE | 2018-12-12 19:00 | NUR ---
NURSE NOTES: QUIET IN BED. IN NO DISTRESS.
--- NOTE | 2018-12-12 19:22 | NUR ---
HAND-OFF: Report given to Sukhdeep PERSAUD RN.
--- NOTE | 2018-12-12 19:23 | NUR ---
NURSE NOTES: Report taken from EDU Lobo. Patient awake and in bed, A&Ox4. No signs of distress on room air. patient is having pain described primarily in the extremities, but tends to be full body in general at times, /. He has a Rt upper chest port-a-cath, site c/d/i and patent, running 1/2 NS at 150mls/hr, dressing changed today in ER. Bed in lowest position, call light within reach.
[2018-12-12 20:00] VITALS: BP 135/73
[2018-12-12] MEDS: oxyCONTIN 10mg tab ORAL SCH (20:29)
[2018-12-12] MEDS ORDERED: oxyCONTIN 20mg tab ORAL SCH (21:00)
[2018-12-12] MEDS: Heparin 5000 units/ml inj SUBQ SCH (21:35)
[2018-12-13] VITALS: BP 127/66
--- NOTE | 2018-12-13 01:15 | History and Physical Report ---
DATE OF ADMISSION: 12/12/2018 CHIEF COMPLAINT: The patient is a 23-year-old male, who presents with a chief complaint of fatigue and generalized pain. HISTORY OF PRESENT ILLNESS: The patient has a history of sickle cell disease. The patient is followed as an outpatient by Dr. Kerline Davenport. The patient was admitted to [facility] from 11/23/2018 to 11/30/2018 for sickle cell crisis. The patient states history of present illness began 1 week ago. The patient presented to Dr. Davenport's office. The patient had a fever. The patient was given intravenous antibiotics and was discharged with doxycycline for 7 days. The patient has completed a course of doxycycline. The patient states that on 12/08/2018, he began to experience bilateral leg pain. The patient also felt tired and fatigued. Pain now is extended to his upper extremities as well. The patient presented to [place] emergency room. The patient is admitted for generalized pain and sickle cell crisis. REVIEW OF SYSTEMS: CONSTITUTIONAL: The patient denies weight loss or weight gain. The patient denies fevers or chills. HEENT: The patient denies ear or throat pain. The patient denies headache. CARDIOVASCULAR: The patient denies palpitations or chest pain. CHEST: The patient denies wheeze or shortness of breath. ABDOMEN: The patient denies nausea, vomiting, diarrhea, or constipation. GENITOURINARY: The patient denies dysuria or increased frequency of urination. MUSCULOSKELETAL: The patient complains of generalized pain as above. The patient denies seizures. PAST MEDICAL HISTORY: Significant for, 1. Sickle cell disease. 2. Asthma. 3. Avascular necrosis of the left hip. PAST SURGICAL HISTORY: Significant for, 1. 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 2. Port-A-Cath placement in the right chest. CURRENT MEDICATIONS: 1. Aspirin 81 mg one tablet p.o. daily. 2. Advair 115/21 two puffs p.o. twice daily. 3. Folic acid 1 mg p.o. daily. 4. Dilaudid 4 mg 4 tablets p.o. q.4 hours p.r.n. 5. Hydroxyurea 1500 mg p.o. daily. 6. OxyContin 20 mg p.o. twice daily. ALLERGIES: 1. Capsaicin. 2. Ceftriaxone. 3. Intravenous contrast dye. 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 The patient lives with his family. The patient denies alcohol or tobacco use. PHYSICAL EXAMINATION: VITAL SIGNS: Temperature 98.8, respirations 17, pulse 74, and blood pressure 131/79. GENERAL: The patient is a well-developed and well-nourished slightly obese, male, in no apparent distress. HEENT: Eyes, pupils are equal and responsive to light and accommodation. Extraocular movements are intact. NECK: Supple without lymphadenopathy. CHEST: Lungs are clear to auscultation bilaterally without wheezes or rales. CARDIOVASCULAR: Regular rhythm and rate. S1 and S2 are normal without murmurs, rubs, or gallops. ABDOMEN: Soft, nontender, and nondistended. Positive bowel sounds. No evidence of hepatosplenomegaly. Currently, no rebound or guarding noted. EXTREMITIES: Negative for clubbing, cyanosis, or edema. RECTAL/GENITAL: Refused. NEUROLOGIC: Cranial nerves II through XII are grossly intact without focal deficits. Motor strength is 5/5 bilaterally. Deep tendon reflexes are 2+ plantar. LABORATORY STUDIES: WBC 19.1, hemoglobin 11.0, hematocrit 35.6, and platelets 297,000. Sodium 139, potassium 4.3, chloride 103, CO2 28, BUN 6, creatinine 0.6, and glucose 132. Total bilirubin elevated at 2.0. Direct bilirubin elevated at 0.4. AST elevated at 114 and ALT elevated at 179. ASSESSMENT: This is a 23-year-old male. 1. Sickle cell crisis. 2. Sickle cell disease. 3. Asthma. 4. Avascular necrosis of the left hip. TREATMENT: 1. Sickle cell crisis/sickle cell disease. The patient has been offered pain medication including intravenous Dilaudid. The patient is requesting long-acting OxyContin as well. 2. Asthma. Continue Advair as above. A Pulmonary consultation has been obtained with Dr. Ranjith Caicedo. 3. Avascular necrosis of the left hip. 4. Leukocytosis I would. 5. Elevated liver function tests. Edilson Rubalcava M.D. DR: JOSELINE JOB#: [id number] CC:
[2018-12-13 04:00] VITALS: BP 111/79
--- NOTE | 2018-12-13 07:25 | NUR ---
HAND-OFF: Report given to EDU Lobo. Patient is asleep and VS stable.
[2018-12-13 07:30] LABS: HEMATOCRIT 30.3 % (42.0-52.0); HEMOGLOBIN 9.5 G/DL (14.2-18.0); MEAN CORPUSCULAR VOLUME 84 FL (80-99); PLATELET COUNT 336 K/UL (150-450)
--- NOTE | 2018-12-13 07:35 | NUR ---
NURSE NOTES: AWAKE/LERT/ PAIN SCALE 9/10/ IN NO DISTRESS.
[2018-12-13 07:53] LABS: ALANINE AMINOTRANSFERASE 123 U/L (12-78); ALBUMIN 3.8 G/DL (3.4-5.0); ALBUMIN/GLOBULIN RATIO 0.9 (1.0-2.7); ALKALINE PHOSPHATASE 92 U/L (46-116); ANION GAP 9 mmol/L (5-15); ASPARTATE AMINO TRANSFERASE 55 U/L (15-37); BILIRUBIN,TOTAL 1.5 MG/DL (0.2-1.0); BLOOD UREA NITROGEN 7 mg/dL (7-18); CALCIUM 9.2 MG/DL (8.5-10.1); CARBON DIOXIDE 26 MMOL/L (21-32); CHLORIDE 105 MMOL/L (98-107); CREATININE 0.6 MG/DL (0.55-1.30); LACTATE DEHYDROGENASE 307 U/L (81-234); POTASSIUM 4.3 MMOL/L (3.5-5.1); SODIUM 140 MMOL/L (136-145)
[2018-12-13 07:55] LABS: BILIRUBIN,DIRECT 0.3 MG/DL (0.0-0.3)
[2018-12-13 08:00] VITALS: BP 128/79
[2018-12-13] MEDS: oxyCONTIN 10mg tab ORAL SCH ×2 (08:48→20:49)
[2018-12-13] MEDS: Hydroxyurea 500mg cap ORAL SCH (08:48)
[2018-12-13] MEDS: Heparin 5000 units/ml inj SUBQ SCH ×2 (08:49→20:48)
--- NOTE | 2018-12-13 08:49 | General Progress Note ---
Orlando Oglesby 12/13/18 0849: Assessment/Plan Assessment/Plan: (1) Sickle cell disease (2) Sickle cell crisis (3) Intractable pain Pt will be continued on OxyContin and Dilaudid. D/w Dr. Tucker and he concurred Subjective Date patient seen: December 13, 2018 Time patient seen: 07:30 - am Allergies: Coded Allergies: CAPSAICIN (Verified Allergy, Unknown, 11/23/18) CEFTRIAXONE (Verified Allergy, Unknown, 11/23/18) Uncoded Allergies: CONTRAST (Adverse Reaction, Severe, Rash, 06/23/16) RADIOCONTRAST - RASH, ITCHING Subjective Constitutional: Reports: chills, weakness HEENT: Reports: no symptoms Cardiovascular: Reports: no symptoms Respiratory: Reports: no symptoms Gastrointestinal/Abdominal: Reports: no symptoms Genitourinary: Reports: no symptoms Neurologic/Psychiatric: Reports: tingling, weakness Endocrine: Reports: no symptoms Hematologic/Lymphatic: Reports: no symptoms Subjective Patient is a known patient from prior admission and has been readmitted due to SS crisis. Started on Dilaudid 2-3mgIV Q3H PRN and OxyContin 30mg Q12H ATC. Pain has been tolerated on the current medication regimen. No new complaints at this time. Objective Last 24 Hour Vital Signs Date Time Temp Pulse Resp B/P (MAP) Pulse Ox O2 Delivery O2 Flow Rate FiO2 12/13/18 08:05 Room Air 12/13/18 04:00 97.6 59 20 111/79 (90) 98 12/13/18 00:00 99.6 60 20 127/66 (86) 99 12/12/18 21:00 Room Air 12/12/18 20:00 98.5 74 18 135/73 (93) 99 12/12/18 17:42 98.7 12/12/18 15:50 98.7 85 20 126/68 (87) 95 12/12/18 12:32 Room Air 12/12/18 12:20 99.8 68 20 136/85 (102) 95 12/12/18 12:08 98.7 74 17 131/79 99 Room Air 12/12/18 09:51 98.8 12/12/18 09:20 98.8 78 20 126/77 94 Room Air Intake and Output 12/12/18 12/13/18 18:59 06:59 Intake Total 2600 ml 555 ml Balance 2600 ml 555 ml Intake Oral 1300 ml 480 ml IV Total 1300 ml 75 ml # Voids 3 7 # Bowel Movements 1 Laboratory Tests 12/12/18 09:09: White Blood Count 19.1H, Red Blood Count 4.22L, Hemoglobin 11.0L, Hematocrit 35.6L, Mean Corpuscular Volume 84, Mean Corpuscular Hemoglobin 26.1L, Mean Corpuscular Hemoglobin Concent 31.0L, Red Cell Distribution Width 17.6H, Platelet Count 397, Mean Platelet Volume 7.3, Neutrophils (%) (Auto) , Lymphocytes (%) (Auto) , Monocytes (%) (Auto) , Eosinophils (%) (Auto) , Basophils (%) (Auto) , Differential Total Cells Counted 100, Neutrophils % ( Manual) 35L, Lymphocytes % (Manual) 56H, Monocytes % (Manual) 8, Eosinophils % ( Manual) 1, Basophils % (Manual) 0, Band Neutrophils 0, Nucleated Red Blood Cells 20, Platelet Estimate Adequate, Platelet Morphology Normal, Hypochromasia 1+, Reticulocyte Count 10.9H, Sodium Level 139, Potassium Level 4.3, Chloride Level 103, Carbon Dioxide Level 28, Anion Gap 8, Blood Urea Nitrogen 6L, Creatinine 0.6, Estimat Glomerular Filtration Rate > 60, Glucose Level 132H, Calcium Level 9.8, Total Bilirubin 2.0H, Direct Bilirubin 0.4H, Aspartate Amino Transf (AST/SGOT) 114H, Alanine Aminotransferase (ALT/SGPT) 179H, Alkaline Phosphatase 112, Total Protein 9.3H, Albumin 4.4, Globulin 4.9, Albumin/ Globulin Ratio 0.9L, Lipase 67L 12/13/18 05:45: White Blood Count 21.0H, Red Blood Count 3.60L, Hemoglobin 9.5L, Hematocrit 30.3L, Mean Corpuscular Volume 84, Mean Corpuscular Hemoglobin 26.4L, Mean Corpuscular Hemoglobin Concent 31.4L, Red Cell Distribution Width 17.0H, Platelet Count 336, Mean Platelet Volume 6.9, Neutrophils (%) (Auto) , Lymphocytes (%) (Auto) , Monocytes (%) (Auto) , Eosinophils (%) (Auto) , Basophils (%) (Auto) , Neutrophils % (Manual) [Pending], Lymphocytes % (Manual) [Pending], Platelet Estimate [Pending], Platelet Morphology [Pending], Sodium Level 140, Potassium Level 4.3, Chloride Level 105, Carbon Dioxide Level 26, Anion Gap 9, Blood Urea Nitrogen 7, Creatinine 0.6, Estimat Glomerular Filtration Rate > 60, Glucose Level 107H, Calcium Level 9.2, Total Bilirubin 1.5H, Direct Bilirubin 0.3, Aspartate Amino Transf (AST/SGOT) 55H, Alanine Aminotransferase (ALT/SGPT) 123H, Alkaline Phosphatase 92, Total Protein 8.2, Albumin 3.8, Globulin 4.4, Albumin/Globulin Ratio 0.9L, Lactate Dehydrogenase 307H Height (Feet): 5 Height (Inches): 6.00 Weight (Pounds): 250 Objective General Appearance: no apparent distress, alert EENT: PERRL/EOMI, normal ENT inspection Neck: non-tender, normal alignment Cardiovascular: normal rate, regular rhythm Respiratory/Chest: decreased breath sounds Abdomen: non tender, soft Extremities: non-tender Edema: no edema noted Arm (L), no edema noted Arm (R), no edema noted Leg (L), no edema noted Leg (R), no edema noted Pedal (L), no edema noted Pedal (R), no edema noted Generalized Neurologic: alert, oriented x 3 Skin: warm/dry Edilson Rubalcava MD 12/13/18 1800: Subjective Date patient seen: December 13, 2018 ROS Limited/Unobtainable: No Constitutional: Reports: no symptoms HEENT: Reports: no symptoms Cardiovascular: Reports: no symptoms Respiratory: Reports: no symptoms Gastrointestinal/Abdominal: Reports: no symptoms Genitourinary: Reports: no symptoms Neurologic/Psychiatric: Reports: no symptoms Endocrine: Reports: no symptoms Hematologic/Lymphatic: Reports: no symptoms Allergies: Coded Allergies: CAPSAICIN (Verified Allergy, Unknown, 11/23/18) CEFTRIAXONE (Verified Allergy, Unknown, 11/23/18) Uncoded Allergies: CONTRAST (Adverse Reaction, Severe, Rash, 06/23/16) RADIOCONTRAST - RASH, ITCHING Subjective 23 YO M with sicke cell dis. Admitted with sickle cell Crisis. Cover for Int Med-[place] Victor December 13, 2018 08:49 Edilson Rubalcava MD December 13, 2018 18:00
--- NOTE | 2018-12-13 11:43 | NUR ---
*-* NO INSURANCE INFORMATION TO SEND CLINICALS OR REVIEWS *-*
[2018-12-13 12:00] VITALS: BP 117/72
--- NOTE | 2018-12-13 12:25 | Consultation ---
History of Present Illness General Date patient seen: December 13, 2018 Chief Complaint: Pain Present Illness HPI A 22-year-old male, with a history of sickle cell disease, presents with two- day increasing left arm pain and left shoulder pain. The patient came to [place], diagnosed with sickle cell crisis, and admitted to medical floor for further treatment. Allergies: Coded Allergies: CAPSAICIN (Verified Allergy, Unknown, 11/23/18) CEFTRIAXONE (Verified Allergy, Unknown, 11/23/18) Uncoded Allergies: CONTRAST (Adverse Reaction, Severe, Rash, 06/23/16) RADIOCONTRAST - RASH, ITCHING Medication History Scheduled Aspirin* (Aspirin*), 81 MG ORAL DAILY, (Reported) Folic Acid* (Folic Acid*), 1 MG ORAL DAILY, (Reported) Hydroxyurea (Hydroxyurea), 1,500 MG PO DAILY, (Reported) Oxycodone Hcl Er* (Oxycontin*), 20 MG ORAL EVERY 12 HOURS, (Reported) Scheduled PRN Fluticasone/Salmeterol (Advair Hfa 115-21 Mcg Inhaler), 2 PUFFS INH EVERY 12 HOURS PRN for Shortness of Breath, (Reported) Hydromorphone Hcl (Hydromorphone Hcl), 16 MG PO Q4HR PRN for Severe Breakthru Pain (>7), (Reported) Patient History Healthcare decision maker SELF Resuscitation status Full Code Advanced Directive on File No Past Medical/Surgical History Past Medical/Surgical History: (1) Sickle cell disease Review of Systems All Other Systems: negative except mentioned in HPI Physical Exam General Appearance: WD/WN, no apparent distress Lines, tubes and drains: peripheral HEENT: normocephalic, atraumatic, anicteric Neck: non-tender, normal alignment Respiratory/Chest: chest wall non-tender, lungs clear Cardiovascular/Chest: normal peripheral pulses, normal rate Abdomen: normal bowel sounds Genitourinary/Rectal: normal genital exam Extremities: normal range of motion Skin Exam: normal pigmentation Neurologic: 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 Last 24 Hour Vital Signs Date Time Temp Pulse Resp B/P (MAP) Pulse Ox O2 Delivery O2 Flow Rate FiO2 12/13/18 09:18 97.6 12/13/18 08:05 Room Air 12/13/18 08:00 98.1 79 17 128/79 (95) 100 12/13/18 04:00 97.6 59 20 111/79 (90) 98 12/13/18 00:00 99.6 60 20 127/66 (86) 99 12/12/18 21:00 Room Air 12/12/18 20:00 98.5 74 18 135/73 (93) 99 12/12/18 17:42 98.7 12/12/18 15:50 98.7 85 20 126/68 (87) 95 12/12/18 12:32 Room Air 12/12/18 12:20 99.8 68 20 136/85 (102) 95 Intake and Output 12/12/18 12/13/18 18:59 06:59 Intake Total 2600 ml 555 ml Balance 2600 ml 555 ml Intake Oral 1300 ml 480 ml IV Total 1300 ml 75 ml # Voids 3 7 # Bowel Movements 1 Laboratory Tests Test 12/13/18 05:45 White Blood Count 21.0 K/UL (4.8-10.8) H Corrected White Blood Count 14.5 K/UL Red Blood Count 3.60 M/UL (4.70-6.10) L Hemoglobin 9.5 G/DL (14.2-18.0) L Hematocrit 30.3 % (42.0-52.0) L Mean Corpuscular Volume 84 FL (80-99) Mean Corpuscular Hemoglobin 26.4 PG (27.0-31.0) L Mean Corpuscular Hemoglobin Concent 31.4 G/DL (32.0-36.0) L Red Cell Distribution Width 17.0 % (11.6-14.8) H Platelet Count 336 K/UL (150-450) Mean Platelet Volume 6.9 FL (6.5-10.1) Neutrophils (%) (Auto) % (45.0-75.0) Lymphocytes (%) (Auto) % (20.0-45.0) Monocytes (%) (Auto) % (1.0-10.0) Eosinophils (%) (Auto) % (0.0-3.0) Basophils (%) (Auto) % (0.0-2.0) Differential Total Cells Counted 100 Neutrophils % (Manual) 42 % (45-75) L Lymphocytes % (Manual) 47 % (20-45) H Monocytes % (Manual) 8 % (1-10) Eosinophils % (Manual) 3 % (0-3) Basophils % (Manual) 0 % (0-2) Band Neutrophils 0 % (0-8) Nucleated Red Blood Cells 17 /100 WBC Platelet Estimate Adequate Platelet Morphology Normal Polychromasia 3+ Hypochromasia 2+ Anisocytosis 2+ Target Cells 3+ Sodium Level 140 MMOL/L (136-145) Potassium Level 4.3 MMOL/L (3.5-5.1) Chloride Level 105 MMOL/L (98-107) Carbon Dioxide Level 26 MMOL/L (21-32) Anion Gap 9 mmol/L (5-15) Blood Urea Nitrogen 7 mg/dL (7-18) Creatinine 0.6 MG/DL (0.55-1.30) Estimat Glomerular Filtration Rate > 60 mL/min (>60) Glucose Level 107 MG/DL (74-106) H Calcium Level 9.2 MG/DL (8.5-10.1) Total Bilirubin 1.5 MG/DL (0.2-1.0) H Direct Bilirubin 0.3 MG/DL (0.0-0.3) Aspartate Amino Transf (AST/SGOT) 55 U/L (15-37) H Alanine Aminotransferase (ALT/SGPT) 123 U/L (12-78) H Alkaline Phosphatase 92 U/L (46-116) Lactate Dehydrogenase 307 U/L (81-234) H Total Protein 8.2 G/DL (6.4-8.2) Albumin 3.8 G/DL (3.4-5.0) Globulin 4.4 g/dL Albumin/Globulin Ratio 0.9 (1.0-2.7) L Height (Feet): 5 Height (Inches): 6.00 Weight (Pounds): 250 Medications Current Medications Medications (Trade) Dose Ordered Sig/Arianne Route PRN Reason Start Time Stop Time Status Last Admin Dose Admin Acetaminophen (Tylenol) 650 mg Q4H PRN ORAL fever 12/12/18 13:45 01/11/19 13:44 Dextrose (Dextrose 50%) 25 ml Q30M PRN IV Hypoglycemia 12/12/18 13:45 01/11/19 13:38 Dextrose (Dextrose 50%) 50 ml Q30M PRN IV hypoglycemia 12/12/18 13:45 01/11/19 13:44 Heparin Sodium (Porcine) (Heparin 5000 units/ml) 5,000 units EVERY 12 HOURS SUBQ 12/12/18 21:00 01/11/19 20:59 12/12/18 21:35 Hydromorphone HCl (Dilaudid) 2 mg Q3H PRN IV pain 4-6 12/12/18 13:45 12/19/18 13:44 Hydromorphone HCl (Dilaudid) 3 mg Q3H PRN IVP For Pain 7-10 12/12/18 13:45 12/19/18 13:44 12/13/18 05:07 Hydroxyurea (Hydrea) 1,500 mg DAILY ORAL 12/13/18 09:00 12/18/18 08:59 12/13/18 08:48 Lorazepam (Ativan 2mg/ml 1ml) 0.5 mg Q4H PRN IV For Anxiety 12/12/18 13:45 12/19/18 13:44 Ondansetron HCl (Zofran) 4 mg Q6H PRN IVP Nausea & Vomiting 12/12/18 13:45 01/11/19 13:44 Oxycodone HCl (OxyCONTIN) 30 mg Q12HR ORAL 12/12/18 21:00 12/19/18 20:59 12/13/18 08:48 Polyethylene Glycol (Miralax) 17 gm HSPRN PRN ORAL Constipation 12/12/18 13:45 01/11/19 13:44 Sodium Chloride 1,000 ml @ 75 mls/hr [id number] IV 12/13/18 13:00 01/11/19 12:59 Zolpidem Tartrate (Ambien) 5 mg HSPRN PRN ORAL Insomnia 12/12/18 13:45 12/19/18 13:44 Assessment/Plan Problem List: (1) Sickle cell crisis ICD Codes: D57.00 - Hb-SS disease with crisis, unspecified SNOMED: [id number] Assessment/Plan: iv fluids check LDH daily symptomatic treatment ID evaluation for increased WBC. Ranjith Ciacedo MD December 13, 2018 12:25
--- NOTE | 2018-12-13 14:15 | NUR ---
*-* INSURANCE *-* ALL CLINICALS AND REVIEWS HAVE BEEN FAXED TO: [employer] [facility]: HAYLIE P- [phone] f- [phone]
--- NOTE | 2018-12-13 15:28 | NUR ---
CASE MANAGEMENT:REVIEW 23 YR OLD FEMALE PRESENTED TO ER CC: PAIN SI:SICKLE CELL CRISIS 98.8 86 20 94% ON RA WBC+19.1 IS: 1L NS BOLUS IV MORPHINE X2 : TO MED/SURG IS: IVF@75/HR OXYCONTIN PO Q12 HEPARIN SQ Q12 INTERQUAL CRITERIA MET
[2018-12-13 16:00] VITALS: BP 130/71
--- NOTE | 2018-12-13 18:02 | Internal Med Progress Note ---
Subjective Date of Service: December 13, 2018 Physician Name Edilson Rubalcava Attending Physician Jersey Bearden MD Current Medications Medications (Trade) Dose Ordered Sig/Arianne Route PRN Reason Start Time Stop Time Status Last Admin Dose Admin Acetaminophen (Tylenol) 650 mg Q4H PRN ORAL fever 12/12/18 13:45 01/11/19 13:44 Chlorhexidine Gluconate (Jihan-Hex 2%) 1 applic DAILY@2000 TOPIC 12/13/18 20:00 01/12/19 19:59 Dextrose (Dextrose 50%) 25 ml Q30M PRN IV Hypoglycemia 12/12/18 13:45 01/11/19 13:38 Dextrose (Dextrose 50%) 50 ml Q30M PRN IV hypoglycemia 12/12/18 13:45 01/11/19 13:44 Heparin Sodium (Porcine) (Heparin 5000 units/ml) 5,000 units EVERY 12 HOURS SUBQ 12/12/18 21:00 01/11/19 20:59 12/12/18 21:35 Hydromorphone HCl (Dilaudid) 2 mg Q3H PRN IV pain 4-6 12/12/18 13:45 12/19/18 13:44 Hydromorphone HCl (Dilaudid) 3 mg Q3H PRN IVP For Pain 7-12/12/18 13:45 12/19/18 13:44 12/13/18 15:54 Hydroxyurea (Hydrea) 1,500 mg DAILY ORAL 12/13/18 09:00 12/18/18 08:59 12/13/18 08:48 Lorazepam (Ativan 2mg/ml 1ml) 0.5 mg Q4H PRN IV For Anxiety 12/12/18 13:45 12/19/18 13:44 Ondansetron HCl (Zofran) 4 mg Q6H PRN IVP Nausea & Vomiting 12/12/18 13:45 01/11/19 13:44 Oxycodone HCl (OxyCONTIN) 30 mg Q12HR ORAL 12/12/18 21:00 12/19/18 20:59 12/13/18 08:48 Polyethylene Glycol (Miralax) 17 gm HSPRN PRN ORAL Constipation 12/12/18 13:45 01/11/19 13:44 Sodium Chloride 1,000 ml @ 75 mls/hr [id number] IV 12/13/18 13:00 01/11/19 12:59 12/13/18 12:22 Zolpidem Tartrate (Ambien) 5 mg HSPRN PRN ORAL Insomnia 12/12/18 13:45 12/19/18 13:44 Allergies: Coded Allergies: CAPSAICIN (Verified Allergy, Unknown, 11/23/18) CEFTRIAXONE (Verified Allergy, Unknown, 11/23/18) Uncoded Allergies: CONTRAST (Adverse Reaction, Severe, Rash, 06/23/16) RADIOCONTRAST - RASH, ITCHING ROS Limited/Unobtainable: No Constitutional: Reports: no symptoms HEENT: Reports: no symptoms Cardiovascular: Reports: no symptoms Respiratory: Reports: no symptoms Gastrointestinal/Abdominal: Reports: no symptoms Genitourinary: Reports: no symptoms Neurologic/Psychiatric: Reports: no symptoms Subjective 23 YO M with sicke cell dis. Admitted with sickle cell Crisis. Cover for Int Med-Dr Bearden Objective Last Vital Signs Date Time Temp Pulse Resp B/P (MAP) Pulse Ox O2 Delivery O2 Flow Rate FiO2 12/13/18 16:24 97.9 12/13/18 16:00 57 17 130/71 (90) 99 12/13/18 08:05 Room Air Laboratory Tests Test 12/13/18 05:45 White Blood Count 21.0 K/UL (4.8-10.8) H Corrected White Blood Count 14.5 K/UL Red Blood Count 3.60 M/UL (4.70-6.10) L Hemoglobin 9.5 G/DL (14.2-18.0) L Hematocrit 30.3 % (42.0-52.0) L Mean Corpuscular Volume 84 FL (80-99) Mean Corpuscular Hemoglobin 26.4 PG (27.0-31.0) L Mean Corpuscular Hemoglobin Concent 31.4 G/DL (32.0-36.0) L Red Cell Distribution Width 17.0 % (11.6-14.8) H Platelet Count 336 K/UL (150-450) Mean Platelet Volume 6.9 FL (6.5-10.1) Neutrophils (%) (Auto) % (45.0-75.0) Lymphocytes (%) (Auto) % (20.0-45.0) Monocytes (%) (Auto) % (1.0-10.0) Eosinophils (%) (Auto) % (0.0-3.0) Basophils (%) (Auto) % (0.0-2.0) Differential Total Cells Counted 100 Neutrophils % (Manual) 42 % (45-75) L Lymphocytes % (Manual) 47 % (20-45) H Monocytes % (Manual) 8 % (1-10) Eosinophils % (Manual) 3 % (0-3) Basophils % (Manual) 0 % (0-2) Band Neutrophils 0 % (0-8) Nucleated Red Blood Cells 17 /100 WBC Platelet Estimate Adequate Platelet Morphology Normal Polychromasia 3+ Hypochromasia 2+ Anisocytosis 2+ Target Cells 3+ Sodium Level 140 MMOL/L (136-145) Potassium Level 4.3 MMOL/L (3.5-5.1) Chloride Level 105 MMOL/L (98-107) Carbon Dioxide Level 26 MMOL/L (21-32) Anion Gap 9 mmol/L (5-15) Blood Urea Nitrogen 7 mg/dL (7-18) Creatinine 0.6 MG/DL (0.55-1.30) Estimat Glomerular Filtration Rate > 60 mL/min (>60) Glucose Level 107 MG/DL (74-106) H Calcium Level 9.2 MG/DL (8.5-10.1) Total Bilirubin 1.5 MG/DL (0.2-1.0) H Direct Bilirubin 0.3 MG/DL (0.0-0.3) Aspartate Amino Transf (AST/SGOT) 55 U/L (15-37) H Alanine Aminotransferase (ALT/SGPT) 123 U/L (12-78) H Alkaline Phosphatase 92 U/L (46-116) Lactate Dehydrogenase 307 U/L (81-234) H Total Protein 8.2 G/DL (6.4-8.2) Albumin 3.8 G/DL (3.4-5.0) Globulin 4.4 g/dL Albumin/Globulin Ratio 0.9 (1.0-2.7) L Intake and Output 12/12/18 12/13/18 19:00 07:00 Intake Total 2675 ml 630 ml Balance 2675 ml 630 ml Intake Oral 1300 ml 480 ml IV Total 1375 ml 150 ml # Voids 3 7 # Bowel Movements 1 Objective PHYSICAL EXAMINATION: GENERAL: The patient is a well-developed and well-nourished slightly obese, male, in no apparent distress. HEENT: Eyes, pupils are equal and responsive to light and accommodation. Extraocular movements are intact. NECK: Supple without lymphadenopathy. CHEST: Lungs are clear to auscultation bilaterally without wheezes or rales. CARDIOVASCULAR: Regular rhythm and rate. S1 and S2 are normal without murmurs, rubs, or gallops. ABDOMEN: Soft, nontender, and nondistended. Positive bowel sounds. No evidence of hepatosplenomegaly. Currently, no rebound or guarding noted. EXTREMITIES: Negative for clubbing, cyanosis, or edema. RECTAL/GENITAL: Refused. NEUROLOGIC: Cranial nerves II through XII are grossly intact without focal deficits. Motor strength is 5/5 bilaterally. Deep tendon reflexes are 2+ plantar. Assessment/Plan Assessment/Plan ASSESSMENT: This is a 23-year-old male. 1. Sickle cell crisis. 2. Sickle cell disease. 3. Asthma. 4. Avascular necrosis of the left hip. TREATMENT: 1. Sickle cell crisis/sickle cell disease. The patient has been offered pain medication including intravenous Dilaudid. The patient is requesting long-acting OxyContin as well. 2. Asthma. Continue Advair as above. A Pulmonary consultation has been obtained with Dr. Ranjith Caicedo. 3. Avascular necrosis of the left hip. 4. Leukocytosis I would. 5. Elevated liver function tests. 6. Pain management consult with Edilson Soto MD December 13, 2018 18:01
--- NOTE | 2018-12-13 18:36 | Infectious Diseases Prog Note ---
Assessment/Plan Problems: (1) Leukocytosis Assessment & Plan: rule out infection , will send blood culture, UA, and CXR , monitor off antibiotics pending work up (2) Fever Assessment & Plan: infection VS sickle cell crises , continue hydration and tylenol (3) Sickle cell crisis Assessment & Plan: continue pain management, blood transfusion as needed, and hydration, follow up with hematology Subjective Allergies: Coded Allergies: CAPSAICIN (Verified Allergy, Unknown, 11/23/18) CEFTRIAXONE (Verified Allergy, Unknown, 11/23/18) Uncoded Allergies: CONTRAST (Adverse Reaction, Severe, Rash, 06/23/16) RADIOCONTRAST - RASH, ITCHING Objective Vital Signs Last 24 Hour Vital Signs Date Time Temp Pulse Resp B/P (MAP) Pulse Ox O2 Delivery O2 Flow Rate FiO2 12/13/18 16:24 97.9 12/13/18 16:00 97.9 57 17 130/71 (90) 99 12/13/18 12:00 98.3 60 17 117/72 (87) 99 12/13/18 09:18 97.6 12/13/18 08:05 Room Air 12/13/18 08:00 98.1 79 17 128/79 (95) 100 12/13/18 04:00 97.6 59 20 111/79 (90) 98 12/13/18 00:00 99.6 60 20 127/66 (86) 99 12/12/18 21:00 Room Air 12/12/18 20:00 98.5 74 18 135/73 (93) 99 Height (Feet): 5 Height (Inches): 6.00 Weight (Pounds): 250 Laboratory Tests Test 12/13/18 05:45 White Blood Count 21.0 K/UL (4.8-10.8) H Corrected White Blood Count 14.5 K/UL Red Blood Count 3.60 M/UL (4.70-6.10) L Hemoglobin 9.5 G/DL (14.2-18.0) L Hematocrit 30.3 % (42.0-52.0) L Mean Corpuscular Volume 84 FL (80-99) Mean Corpuscular Hemoglobin 26.4 PG (27.0-31.0) L Mean Corpuscular Hemoglobin Concent 31.4 G/DL (32.0-36.0) L Red Cell Distribution Width 17.0 % (11.6-14.8) H Platelet Count 336 K/UL (150-450) Mean Platelet Volume 6.9 FL (6.5-10.1) Neutrophils (%) (Auto) % (45.0-75.0) Lymphocytes (%) (Auto) % (20.0-45.0) Monocytes (%) (Auto) % (1.0-10.0) Eosinophils (%) (Auto) % (0.0-3.0) Basophils (%) (Auto) % (0.0-2.0) Differential Total Cells Counted 100 Neutrophils % (Manual) 42 % (45-75) L Lymphocytes % (Manual) 47 % (20-45) H Monocytes % (Manual) 8 % (1-10) Eosinophils % (Manual) 3 % (0-3) Basophils % (Manual) 0 % (0-2) Band Neutrophils 0 % (0-8) Nucleated Red Blood Cells 17 /100 WBC Platelet Estimate Adequate Platelet Morphology Normal Polychromasia 3+ Hypochromasia 2+ Anisocytosis 2+ Target Cells 3+ Sodium Level 140 MMOL/L (136-145) Potassium Level 4.3 MMOL/L (3.5-5.1) Chloride Level 105 MMOL/L (98-107) Carbon Dioxide Level 26 MMOL/L (21-32) Anion Gap 9 mmol/L (5-15) Blood Urea Nitrogen 7 mg/dL (7-18) Creatinine 0.6 MG/DL (0.55-1.30) Estimat Glomerular Filtration Rate > 60 mL/min (>60) Glucose Level 107 MG/DL (74-106) H Calcium Level 9.2 MG/DL (8.5-10.1) Total Bilirubin 1.5 MG/DL (0.2-1.0) H Direct Bilirubin 0.3 MG/DL (0.0-0.3) Aspartate Amino Transf (AST/SGOT) 55 U/L (15-37) H Alanine Aminotransferase (ALT/SGPT) 123 U/L (12-78) H Alkaline Phosphatase 92 U/L (46-116) Lactate Dehydrogenase 307 U/L (81-234) H Total Protein 8.2 G/DL (6.4-8.2) Albumin 3.8 G/DL (3.4-5.0) Globulin 4.4 g/dL Albumin/Globulin Ratio 0.9 (1.0-2.7) L Current Medications Medications (Trade) Dose Ordered Sig/Arianne Route PRN Reason Start Time Stop Time Status Last Admin Dose Admin Acetaminophen (Tylenol) 650 mg Q4H PRN ORAL fever 12/12/18 13:45 01/11/19 13:44 Chlorhexidine Gluconate (Jihan-Hex 2%) 1 applic DAILY@2000 TOPIC 12/13/18 20:00 01/12/19 19:59 Dextrose (Dextrose 50%) 25 ml Q30M PRN IV Hypoglycemia 12/12/18 13:45 01/11/19 13:38 Dextrose (Dextrose 50%) 50 ml Q30M PRN IV hypoglycemia 12/12/18 13:45 01/11/19 13:44 Heparin Sodium (Porcine) (Heparin 5000 units/ml) 5,000 units EVERY 12 HOURS SUBQ 12/12/18 21:00 01/11/19 20:59 12/12/18 21:35 Hydromorphone HCl (Dilaudid) 2 mg ONCE IVP 12/13/18 18:28 12/13/18 19:28 Hydromorphone HCl (Dilaudid) 2 mg Q3H PRN IV pain 4-6 12/12/18 13:45 12/19/18 13:44 Hydromorphone HCl (Dilaudid) 3 mg Q3H PRN IVP For Pain 7-10 12/12/18 13:45 12/19/18 13:44 12/13/18 15:54 Hydroxyurea (Hydrea) 1,500 mg DAILY ORAL 12/13/18 09:00 12/18/18 08:59 12/13/18 08:48 Lorazepam (Ativan 2mg/ml 1ml) 0.5 mg Q4H PRN IV For Anxiety 12/12/18 13:45 12/19/18 13:44 Ondansetron HCl (Zofran) 4 mg Q6H PRN IVP Nausea & Vomiting 12/12/18 13:45 01/11/19 13:44 Oxycodone HCl (OxyCONTIN) 30 mg Q12HR ORAL 12/12/18 21:00 12/19/18 20:59 12/13/18 08:48 Polyethylene Glycol (Miralax) 17 gm HSPRN PRN ORAL Constipation 12/12/18 13:45 01/11/19 13:44 Sodium Chloride 1,000 ml @ 150 mls/hr Q6H40M IV 12/13/18 18:45 01/12/19 18:44 Zolpidem Tartrate (Ambien) 5 mg HSPRN PRN ORAL Insomnia 12/12/18 13:45 12/19/18 13:44 Emeka Solrozano M.D. December 13, 2018 18:36
[2018-12-13 18:52] LABS: APPEARANCE,URINE CLEAR; BILIRUBIN, URINE NEGATIVE (NEGATIVE); COLOR,URINE YELLOW; GLUCOSE, URINE (UA) NEGATIVE (NEGATIVE); KETONES,URINE NEGATIVE (NEGATIVE); LEUKOCYTE ESTERASE ,URINE NEGATIVE (NEGATIVE); NITRITE,URINE NEGATIVE (NEGATIVE); PH,URINE 6 (4.5-8.0); PROTEIN,URINE NEGATIVE (NEGATIVE); UROBILINOGEN,URINE NORMAL MG/DL (0.0-1.0)
--- NOTE | 2018-12-13 19:00 | NUR ---
NURSE NOTES: QUIET IN BED ,IN NO DISTRESS.
--- NOTE | 2018-12-13 19:24 | NUR ---
HAND-OFF: Report given to Sukhdeep PERSAUD RN.
--- NOTE | 2018-12-13 19:25 | NUR ---
NURSE NOTES: Report taken from EDU Lobo. Patient is awake and in bed, A&Ox4. No signs of distress on room air. Patient is having generalized pain, increased symptoms in his chest and arms, 02/14. Port-a-cath site c/d/i and patent, runnint 1/2NS at 150mls/hr. Has some bruising on his RUE due to injections, no other skin issues present. Scheduled for CXR, followed up with radiology. Bed in lowest position, call light within reach.
[2018-12-13 20:00] VITALS: BP 148/86
[2018-12-13] MEDS: Dyna-Hex 2% Top Sol 2oz TOPIC SCH (20:49)
[2018-12-14] VITALS: BP 139/77
[2018-12-14 04:00] VITALS: BP 136/78
[2018-12-14 05:09] LABS: RED CELL DISTRIBUTION WIDTH 16.4 % (11.6-14.8)
[2018-12-14 05:23] LABS: ANION GAP 8 mmol/L (5-15); BLOOD UREA NITROGEN 6 mg/dL (7-18); CALCIUM 9.1 MG/DL (8.5-10.1); CARBON DIOXIDE 27 MMOL/L (21-32); CHLORIDE 103 MMOL/L (98-107); CREATININE 0.5 MG/DL (0.55-1.30); POTASSIUM 3.9 MMOL/L (3.5-5.1); SODIUM 138 MMOL/L (136-145)
[2018-12-14 05:31] LABS: HEMATOCRIT 30.2 % (42.0-52.0); HEMOGLOBIN 10.1 G/DL (14.2-18.0); MEAN CORPUSCULAR VOLUME 80 FL (80-99); PLATELET COUNT 343 K/UL (150-450); RED BLOOD COUNT 3.79 M/UL (4.70-6.10)
[2018-12-14 05:38] LABS: WHITE BLOOD COUNT 15.1 K/UL (4.8-10.8)
--- NOTE | 2018-12-14 07:45 | NUR ---
NURSE NOTES: Report received from outgoing nurse, rounds made. Patient sitting in high fowlers position in bed. No SOB on RA, No NV. Reports bilateral legs pain 7/10, will medicate as ordered. IVF infusing to right PortaCath, at 150 ml/hr, site asymptomatic, dressing CDI. Call light in reach, bed in lowest position, will continue to monitor.
--- NOTE | 2018-12-14 07:49 | NUR ---
HAND-OFF: Report given to EDU Brown. patient is awake and in bed, VS stable.
[2018-12-14 08:00] VITALS: BP 133/66
[2018-12-14] MEDS: Hydroxyurea 500mg cap ORAL SCH (08:59)
[2018-12-14] MEDS: Heparin 5000 units/ml inj SUBQ SCH ×2 (09:00→20:34)
--- NOTE | 2018-12-14 09:06 | NUR ---
CASE MANAGEMENT:REVIEW SI:SICKLE CELL CRISIS. ASTHMA AVASCULAR NECROSIS OF LT HIP 98.0 72 18 136/78 100% ON RA WBC+15.1 IS: IVF@150/HR HYDREA PO QD HEPARIN SQ Q12 OXYCONTIN PO Q12 IV DILAUDID Q3HRS PRN : TO MED/SURG 3 [facility] DCP: FROM HOME PLAN: BLOOD CX
--- NOTE | 2018-12-14 09:33 | NUR ---
RADIOLOGY DEPT., CHEST X-RAY DONE.-P.DYE
[2018-12-14] MEDS: oxyCONTIN 10mg tab ORAL SCH ×2 (09:51→20:34)
--- NOTE | 2018-12-14 11:26 | Diagnostic Imaging Report ---
Indication: Cough Comparison: 11/28/2018 A single view chest radiograph was obtained. Findings: Accounting for lung volumes are is no change. Heart is borderline enlarged. There is a right chest port in good position unchanged. Lungs are grossly clear. No obvious infiltrate. IMPRESSION: No obvious infiltrate. Limited evaluation
[2018-12-14] MEDS: DiphenhydrAMINE 50mg/ml Inj IVP PRN ×2 (11:49→18:37)
[2018-12-14 12:00] VITALS: BP 126/83
--- NOTE | 2018-12-14 12:30 | NUR ---
NURSE NOTES: Notified Dr. Bearden at 1130, patient complains of generalized itching, orders for Benadryl 25 mg IV every 6 hours as needed for itching. See orders. Medicated patient, effective. Will continue to monitor.
--- NOTE | 2018-12-14 13:00 | NUR ---
NURSE NOTES: Labs for Hepatitis B and C, obtained via right PortaCath, flushed with normal saline x2 after and restarted IVF as ordered. Sent to lab.
--- NOTE | 2018-12-14 13:51 | NUR ---
*-* INSURANCE *-* ALL CLINICALS AND REVIEWS HAVE BEEN FAXED TO: [employer]: HAYLIE P- [phone] [id number] f- [phone]
--- NOTE | 2018-12-14 15:36 | General Progress Note ---
Assessment/Plan Assessment/Plan: (1) Sickle cell disease (2) Sickle cell crisis (3) Intractable pain Pt will be continued on OxyContin and Dilaudid. D/w Dr. Tucker and he concurred Subjective Date patient seen: December 14, 2018 Time patient seen: 15:15 Allergies: Coded Allergies: CAPSAICIN (Verified Allergy, Unknown, 11/23/18) CEFTRIAXONE (Verified Allergy, Unknown, 11/23/18) Uncoded Allergies: CONTRAST (Adverse Reaction, Severe, Rash, 06/23/16) RADIOCONTRAST - RASH, ITCHING Subjective Constitutional: Reports: chills, weakness HEENT: Reports: no symptoms Cardiovascular: Reports: no symptoms Respiratory: Reports: no symptoms Gastrointestinal/Abdominal: Reports: no symptoms Genitourinary: Reports: no symptoms Neurologic/Psychiatric: Reports: tingling, weakness Endocrine: Reports: no symptoms Hematologic/Lymphatic: Reports: no symptoms Subjective Patient reports that the pain has been tolerated on the OxyContin and Dilaudid. He has no new complaints at this time. Objective Last 24 Hour Vital Signs Date Time Temp Pulse Resp B/P (MAP) Pulse Ox O2 Delivery O2 Flow Rate FiO2 12/14/18 12:00 98.2 77 18 126/83 (97) 98 12/14/18 09:00 Room Air 12/14/18 08:00 98.3 55 20 133/66 (88) 96 12/14/18 04:00 98.0 72 18 136/78 (97) 100 12/14/18 00:00 98.8 69 18 139/77 (97) 98 12/13/18 21:00 Room Air 12/13/18 20:00 99.3 63 19 148/86 (106) 98 12/13/18 19:04 97.9 12/13/18 16:24 97.9 12/13/18 16:00 97.9 57 17 130/71 (90) 99 Intake and Output 12/13/18 12/14/18 18:59 06:59 Intake Total 2482.5 ml 1555 ml Output Total 600 ml Balance 1882.5 ml 1555 ml Intake Oral 1470 ml 1480 ml IV Total 1012.5 ml 75 ml Output Urine Total 600 ml # Voids 2 4 Laboratory Tests 12/13/18 18:15: Urine Color Yellow, Urine Appearance Clear, Urine pH 6, Urine Specific [place] 1.010, Urine Protein Negative, Urine Glucose (UA) Negative, Urine Ketones Negative, Urine Blood Negative, Urine Nitrite Negative, Urine Bilirubin Negative , Urine Urobilinogen Normal, Urine Leukocyte Esterase Negative 12/14/18 04:50: White Blood Count 15.1H, Red Blood Count 3.79L, Hemoglobin 10.1L, Hematocrit 30.2L, Mean Corpuscular Volume 80, Mean Corpuscular Hemoglobin 26.6L, Mean Corpuscular Hemoglobin Concent 33.4, Red Cell Distribution Width 16.4H, Platelet Count 343, Mean Platelet Volume 7.3, Neutrophils (%) (Auto) , Lymphocytes (%) (Auto) , Monocytes (%) (Auto) , Eosinophils (%) (Auto) , Basophils (%) (Auto) , Differential Total Cells Counted 100, Neutrophils % ( Manual) 46, Lymphocytes % (Manual) 43, Monocytes % (Manual) 11H, Eosinophils % ( Manual) 0, Basophils % (Manual) 0, Band Neutrophils 0, Nucleated Red Blood Cells 19, Platelet Estimate Adequate, Platelet Morphology Normal, Polychromasia 1+, Basophilic Stippling 1+, Anisocytosis 1+, Target Cells 2+, Sodium Level 138 , Potassium Level 3.9, Chloride Level 103, Carbon Dioxide Level 27, Anion Gap 8 , Blood Urea Nitrogen 6L, Creatinine 0.5L, Estimat Glomerular Filtration Rate > 60, Glucose Level 99, Calcium Level 9.1, Lactate Dehydrogenase 271H 12/14/18 13:00: Hepatitis B Surface Antigen [Pending], Hepatitis B Core IgM Antibody [Pending], Hepatitis C Antibody [Pending] Height (Feet): 5 Height (Inches): 6.00 Weight (Pounds): 250 Objective General Appearance: no apparent distress, alert EENT: PERRL/EOMI, normal ENT inspection Neck: non-tender, normal alignment Cardiovascular: normal rate, regular rhythm Respiratory/Chest: decreased breath sounds Abdomen: non tender, soft Extremities: non-tender Edema: no edema noted Arm (L), no edema noted Arm (R), no edema noted Leg (L), no edema noted Leg (R), no edema noted Pedal (L), no edema noted Pedal (R), no edema noted Generalized Neurologic: alert, oriented x 3 Skin: warm/dry Orlando Oglesby December 14, 2018 15:35
[2018-12-14 16:00] VITALS: BP 116/66
--- NOTE | 2018-12-14 16:33 | Internal Med Progress Note ---
Subjective Date of Service: December 14, 2018 Physician Name Edilson Rubalcava Attending Physician Jersey Bearden MD Current Medications Medications (Trade) Dose Ordered Sig/Arianne Route PRN Reason Start Time Stop Time Status Last Admin Dose Admin Acetaminophen (Tylenol) 650 mg Q4H PRN ORAL fever 12/12/18 13:45 01/11/19 13:44 Chlorhexidine Gluconate (Jihan-Hex 2%) 1 applic DAILY@2000 TOPIC 12/13/18 20:00 01/12/19 19:59 12/13/18 20:49 Dextrose (Dextrose 50%) 25 ml Q30M PRN IV Hypoglycemia 12/12/18 13:45 01/11/19 13:38 Dextrose (Dextrose 50%) 50 ml Q30M PRN IV hypoglycemia 12/12/18 13:45 01/11/19 13:44 Diphenhydramine HCl (Benadryl) 25 mg Q6H PRN IVP Itching 12/14/18 11:45 01/13/19 11:44 12/14/18 11:49 Heparin Sodium (Porcine) (Heparin 5000 units/ml) 5,000 units EVERY 12 HOURS SUBQ 12/12/18 21:00 01/11/19 20:59 12/14/18 09:00 Hydromorphone HCl (Dilaudid) 2 mg Q3H PRN IV pain 4-6 12/12/18 13:45 12/19/18 13:44 Hydromorphone HCl (Dilaudid) 3 mg Q3H PRN IVP For Pain 7-10 12/12/18 13:45 12/19/18 13:44 12/14/18 15:25 Hydroxyurea (Hydrea) 1,500 mg DAILY ORAL 12/13/18 09:00 12/18/18 08:59 12/14/18 08:59 Lorazepam (Ativan 2mg/ml 1ml) 0.5 mg Q4H PRN IV For Anxiety 12/12/18 13:45 12/19/18 13:44 Ondansetron HCl (Zofran) 4 mg Q6H PRN IVP Nausea & Vomiting 12/12/18 13:45 01/11/19 13:44 Oxycodone HCl (OxyCONTIN) 30 mg Q12HR ORAL 12/12/18 21:00 12/19/18 20:59 12/14/18 09:51 Polyethylene Glycol (Miralax) 17 gm HSPRN PRN ORAL Constipation 12/12/18 13:45 01/11/19 13:44 Sodium Chloride 1,000 ml @ 150 mls/hr Q6H40M IV 12/13/18 18:45 01/12/19 18:44 12/14/18 11:48 Zolpidem Tartrate (Ambien) 5 mg HSPRN PRN ORAL Insomnia 12/12/18 13:45 12/19/18 13:44 Allergies: Coded Allergies: CAPSAICIN (Verified Allergy, Unknown, 11/23/18) CEFTRIAXONE (Verified Allergy, Unknown, 11/23/18) Uncoded Allergies: CONTRAST (Adverse Reaction, Severe, Rash, 06/23/16) RADIOCONTRAST - RASH, ITCHING ROS Limited/Unobtainable: No Constitutional: Reports: no symptoms HEENT: Reports: no symptoms Cardiovascular: Reports: no symptoms Respiratory: Reports: no symptoms Gastrointestinal/Abdominal: Reports: no symptoms Genitourinary: Reports: no symptoms Neurologic/Psychiatric: Reports: no symptoms Subjective 23 YO M with sicke cell dis. Admitted with sickle cell Crisis. Cover for Int Med-Dr Bearden. C/O generalized pain and chest pain Objective Last Vital Signs Date Time Temp Pulse Resp B/P (MAP) Pulse Ox O2 Delivery O2 Flow Rate FiO2 12/14/18 16:00 98.4 66 18 116/66 (83) 97 12/14/18 09:00 Room Air Laboratory Tests Test 12/13/18 18:15 12/14/18 04:50 12/14/18 13:00 Urine Color Yellow Urine Appearance Clear Urine pH 6 (4.5-8.0) Urine Specific [place] 1.010 (1.005-1.035) Urine Protein Negative (NEGATIVE) Urine Glucose (UA) Negative (NEGATIVE) Urine Ketones Negative (NEGATIVE) Urine Blood Negative (NEGATIVE) Urine Nitrite Negative (NEGATIVE) Urine Bilirubin Negative (NEGATIVE) Urine Urobilinogen Normal MG/DL (0.0-1.0) Urine Leukocyte Esterase Negative (NEGATIVE) White Blood Count 15.1 K/UL (4.8-10.8) H Red Blood Count 3.79 M/UL (4.70-6.10) L Hemoglobin 10.1 G/DL (14.2-18.0) L Hematocrit 30.2 % (42.0-52.0) L Mean Corpuscular Volume 80 FL (80-99) Mean Corpuscular Hemoglobin 26.6 PG (27.0-31.0) L Mean Corpuscular Hemoglobin Concent 33.4 G/DL (32.0-36.0) Red Cell Distribution Width 16.4 % (11.6-14.8) H Platelet Count 343 K/UL (150-450) Mean Platelet Volume 7.3 FL (6.5-10.1) Neutrophils (%) (Auto) % (45.0-75.0) Lymphocytes (%) (Auto) % (20.0-45.0) Monocytes (%) (Auto) % (1.0-10.0) Eosinophils (%) (Auto) % (0.0-3.0) Basophils (%) (Auto) % (0.0-2.0) Differential Total Cells Counted 100 Neutrophils % (Manual) 46 % (45-75) Lymphocytes % (Manual) 43 % (20-45) Monocytes % (Manual) 11 % (1-10) H Eosinophils % (Manual) 0 % (0-3) Basophils % (Manual) 0 % (0-2) Band Neutrophils 0 % (0-8) Nucleated Red Blood Cells 19 /100 WBC Platelet Estimate Adequate Platelet Morphology Normal Polychromasia 1+ Basophilic Stippling 1+ Anisocytosis 1+ Target Cells 2+ Sodium Level 138 MMOL/L (136-145) Potassium Level 3.9 MMOL/L (3.5-5.1) Chloride Level 103 MMOL/L (98-107) Carbon Dioxide Level 27 MMOL/L (21-32) Anion Gap 8 mmol/L (5-15) Blood Urea Nitrogen 6 mg/dL (7-18) L Creatinine 0.5 MG/DL (0.55-1.30) L Estimat Glomerular Filtration Rate > 60 mL/min (>60) Glucose Level 99 MG/DL (74-106) Calcium Level 9.1 MG/DL (8.5-10.1) Lactate Dehydrogenase 271 U/L (81-234) H Hepatitis B Surface Antigen Pending Hepatitis B Core IgM Antibody Pending Hepatitis C Antibody Pending Intake and Output 12/13/18 12/14/18 19:00 07:00 Intake Total 2332.5 ml 1705 ml Output Total 600 ml Balance 1732.5 ml 1705 ml Intake Oral 1470 ml 1480 ml IV Total 862.5 ml 225 ml Output Urine Total 600 ml # Voids 2 4 Objective PHYSICAL EXAMINATION: GENERAL: The patient is a well-developed and well-nourished slightly obese, male, in no apparent distress. HEENT: Eyes, pupils are equal and responsive to light and accommodation. Extraocular movements are intact. NECK: Supple without lymphadenopathy. CHEST: Lungs are clear to auscultation bilaterally without wheezes or rales. CARDIOVASCULAR: Regular rhythm and rate. S1 and S2 are normal without murmurs, rubs, or gallops. ABDOMEN: Soft, nontender, and nondistended. Positive bowel sounds. No evidence of hepatosplenomegaly. Currently, no rebound or guarding noted. EXTREMITIES: Negative for clubbing, cyanosis, or edema. RECTAL/GENITAL: Refused. NEUROLOGIC: Cranial nerves II through XII are grossly intact without focal deficits. Motor strength is 5/5 bilaterally. Deep tendon reflexes are 2+ plantar. Assessment/Plan Assessment/Plan ASSESSMENT: This is a 23-year-old male. 1. Sickle cell crisis. 2. Sickle cell disease. 3. Asthma. 4. Avascular necrosis of the left hip. TREATMENT: 1. Sickle cell crisis/sickle cell disease. The patient has been offered pain medication including intravenous Dilaudid. The patient is requesting long-acting OxyContin as well. 2. Asthma. Continue Advair as above. A Pulmonary consultation has been obtained with Dr. Ranjith Caicedo. 3. Avascular necrosis of the left hip. 4. Leukocytosis I would. 5. Elevated liver function tests. 6. Pain management consult with Edilson Soto MD December 14, 2018 16:33
--- NOTE | 2018-12-14 18:01 | Infectious Diseases Prog Note ---
Assessment/Plan Problems: (1) Leukocytosis Assessment & Plan: rule out infection VS reaction to sickle cell crises , await blood culture, UA was negative for infection , and CXR was negative for pneumonia , monitor off antibiotics pending work up (2) Fever Assessment & Plan: infection VS sickle cell crises , continue hydration and tylenol (3) Sickle cell crisis Assessment & Plan: continue pain management, blood transfusion as needed, and hydration, follow up with hematology Subjective Constitutional: Reports: fatigue HEENT: Reports: no symptoms Respiratory: Reports: no symptoms Breasts: Reports: no symptoms Cardiovascular: Reports: no symptoms Gastrointestinal/Abdominal: Reports: no symptoms Genitourinary: Reports: no symptoms Neurologic: Reports: weakness Psychiatric: Reports: no symptoms Skin: Reports: no symptoms Endocrine: Reports: no symptoms Hematologic: Reports: no symptoms Musculoskeletal: Reports: pain Allergies: Coded Allergies: CAPSAICIN (Verified Allergy, Unknown, 11/23/18) CEFTRIAXONE (Verified Allergy, Unknown, 11/23/18) Uncoded Allergies: CONTRAST (Adverse Reaction, Severe, Rash, 06/23/16) RADIOCONTRAST - RASH, ITCHING Objective Vital Signs Last 24 Hour Vital Signs Date Time Temp Pulse Resp B/P (MAP) Pulse Ox O2 Delivery O2 Flow Rate FiO2 12/14/18 16:00 98.4 66 18 116/66 (83) 97 12/14/18 12:00 98.2 77 18 126/83 (97) 98 12/14/18 09:00 Room Air 12/14/18 08:00 98.3 55 20 133/66 (88) 96 12/14/18 04:00 98.0 72 18 136/78 (97) 100 12/14/18 00:00 98.8 69 18 139/77 (97) 98 12/13/18 21:00 Room Air 12/13/18 20:00 99.3 63 19 148/86 (106) 98 12/13/18 19:04 97.9 Height (Feet): 5 Height (Inches): 6.00 Weight (Pounds): 250 General Appearance: WD/WN, no acute distress HEENT: normocephalic, atraumatic, anicteric, mucous membranes moist, PERRL Respiratory/Chest: chest wall non-tender, lungs clear, normal breath sounds, no respiratory distress, no accessory muscle use Cardiovascular: normal peripheral pulses, normal rate, regular rhythm, no gallop/murmur, no JVD Abdomen: normal bowel sounds, soft, non tender, no organomegaly, non distended , no mass, no scars Genitourinary: normal external genitalia Extremities: no cyanosis, no clubbing Skin: no rash, no lesions, no ulcers 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, alert, responsive Lymphatic: no neck adenopathy, no groin adenopathy Musculoskeletal: normal muscle bulk, no effusion Laboratory Tests Test 12/13/18 18:15 12/14/18 04:50 12/14/18 13:00 Urine Color Yellow Urine Appearance Clear Urine pH 6 (4.5-8.0) Urine Specific [place] 1.010 (1.005-1.035) Urine Protein Negative (NEGATIVE) Urine Glucose (UA) Negative (NEGATIVE) Urine Ketones Negative (NEGATIVE) Urine Blood Negative (NEGATIVE) Urine Nitrite Negative (NEGATIVE) Urine Bilirubin Negative (NEGATIVE) Urine Urobilinogen Normal MG/DL (0.0-1.0) Urine Leukocyte Esterase Negative (NEGATIVE) White Blood Count 15.1 K/UL (4.8-10.8) H Red Blood Count 3.79 M/UL (4.70-6.10) L Hemoglobin 10.1 G/DL (14.2-18.0) L Hematocrit 30.2 % (42.0-52.0) L Mean Corpuscular Volume 80 FL (80-99) Mean Corpuscular Hemoglobin 26.6 PG (27.0-31.0) L Mean Corpuscular Hemoglobin Concent 33.4 G/DL (32.0-36.0) Red Cell Distribution Width 16.4 % (11.6-14.8) H Platelet Count 343 K/UL (150-450) Mean Platelet Volume 7.3 FL (6.5-10.1) Neutrophils (%) (Auto) % (45.0-75.0) Lymphocytes (%) (Auto) % (20.0-45.0) Monocytes (%) (Auto) % (1.0-10.0) Eosinophils (%) (Auto) % (0.0-3.0) Basophils (%) (Auto) % (0.0-2.0) Differential Total Cells Counted 100 Neutrophils % (Manual) 46 % (45-75) Lymphocytes % (Manual) 43 % (20-45) Monocytes % (Manual) 11 % (1-10) H Eosinophils % (Manual) 0 % (0-3) Basophils % (Manual) 0 % (0-2) Band Neutrophils 0 % (0-8) Nucleated Red Blood Cells 19 /100 WBC Platelet Estimate Adequate Platelet Morphology Normal Polychromasia 1+ Basophilic Stippling 1+ Anisocytosis 1+ Target Cells 2+ Sodium Level 138 MMOL/L (136-145) Potassium Level 3.9 MMOL/L (3.5-5.1) Chloride Level 103 MMOL/L (98-107) Carbon Dioxide Level 27 MMOL/L (21-32) Anion Gap 8 mmol/L (5-15) Blood Urea Nitrogen 6 mg/dL (7-18) L Creatinine 0.5 MG/DL (0.55-1.30) L Estimat Glomerular Filtration Rate > 60 mL/min (>60) Glucose Level 99 MG/DL (74-106) Calcium Level 9.1 MG/DL (8.5-10.1) Lactate Dehydrogenase 271 U/L (81-234) H Hepatitis B Surface Antigen Pending Hepatitis B Core IgM Antibody Pending Hepatitis C Antibody Pending Current Medications Medications (Trade) Dose Ordered Sig/Arianne Route PRN Reason Start Time Stop Time Status Last Admin Dose Admin Acetaminophen (Tylenol) 650 mg Q4H PRN ORAL fever 12/12/18 13:45 01/11/19 13:44 Chlorhexidine Gluconate (Jihan-Hex 2%) 1 applic DAILY@1999 TOPIC 12/13/18 20:00 01/12/19 19:59 12/13/18 20:49 Dextrose (Dextrose 50%) 25 ml Q30M PRN IV Hypoglycemia 12/12/18 13:45 01/11/19 13:38 Dextrose (Dextrose 50%) 50 ml Q30M PRN IV hypoglycemia 12/12/18 13:45 01/11/19 13:44 Diphenhydramine HCl (Benadryl) 25 mg Q6H PRN IVP Itching 12/14/18 11:45 01/13/19 11:44 12/14/18 11:49 Heparin Sodium (Porcine) (Heparin 5000 units/ml) 5,000 units EVERY 12 HOURS SUBQ 12/12/18 21:00 01/11/19 20:59 5/9/19 09:00 Hydromorphone HCl (Dilaudid) 2 mg Q3H PRN IV pain 4-6 12/12/18 13:45 12/19/18 13:44 Hydromorphone HCl (Dilaudid) 3 mg Q3H PRN IVP For Pain 7-10 12/12/18 13:45 12/19/18 13:44 12/14/18 15:25 Hydroxyurea (Hydrea) 1,500 mg DAILY ORAL 12/13/18 09:00 12/18/18 08:59 12/14/18 08:59 Lorazepam (Ativan 2mg/ml 1ml) 0.5 mg Q4H PRN IV For Anxiety 12/12/18 13:45 12/19/18 13:44 Ondansetron HCl (Zofran) 4 mg Q6H PRN IVP Nausea & Vomiting 12/12/18 13:45 01/11/19 13:44 Oxycodone HCl (OxyCONTIN) 30 mg Q12HR ORAL 12/12/18 21:00 12/19/18 20:59 12/14/18 09:51 Polyethylene Glycol (Miralax) 17 gm HSPRN PRN ORAL Constipation 12/12/18 13:45 01/11/19 13:44 Sodium Chloride 1,000 ml @ 150 mls/hr Q6H40M IV 12/13/18 18:45 01/12/19 18:44 12/14/18 11:48 Zolpidem Tartrate (Ambien) 5 mg HSPRN PRN ORAL Insomnia 12/12/18 13:45 12/19/18 13:44 Emeka Solorzano M.D. December 14, 2018 18:01
--- NOTE | 2018-12-14 19:15 | NUR ---
HAND-OFF: Report given to Joan SORENSEN.
[2018-12-14 20:00] VITALS: BP 110/63
--- NOTE | 2018-12-14 20:16 | NUR ---
NURSE NOTES: Report received from Stephanie SORENSEN. Patient is observed in bed, watching tv. Alert, oriented, and able to make needs known. Respiratory even and unlabored. RUC port-a-cath is asymptomatic, patent, and intact. IVF is running at a prescribed rate. Patient denies pain at this time. Bed is in lowest position with side rails up x2 and brakes are engaged. Instructed patient the side effects of pain medication, including drowsiness and risk for fall, encouraged patient to use call light when in need of assistance, patient verbalized understanding. Will continue to monitor.
[2018-12-14] MEDS: Dyna-Hex 2% Top Sol 2oz TOPIC SCH (20:34)
--- NOTE | 2018-12-14 22:05 | NUR ---
NURSE NOTES: Patient is observed in bed, awake, alert, oriented, and able to make needs known. Patient states 9/10 leg pain. VS are as follows: BP: 110/63, HR: 80, O2: 99% RA, RR: 20, even and unlabored. Educated patient the side effect of Dilaudid, including respiratory depression and drowsiness, patient verbalized understanding. Will continue to monitor.
[2018-12-15] VITALS: BP 124/73
[2018-12-15] MEDS: DiphenhydrAMINE 50mg/ml Inj IVP PRN ×3 (01:46→16:53)
--- NOTE | 2018-12-15 02:00 | Consultation ---
DATE OF CONSULTATION: 12/13/2018 INFECTIOUS DISEASE CONSULTATION CONSULTING PHYSICIAN: Emeka Solorzano M.D. REQUESTING PHYSICIAN: Ranjith Caicedo M.D. REASON FOR CONSULTATION: Fever, leukocytosis and sickle cell anemia patient. Recommendation for antibiotics treatment. HISTORY OF PRESENT ILLNESS: The patient is a 23-year-old male with past medical history of sickle cell disease since childhood, who is being followed as an outpatient by Dr. Davenport, was admitted to [facility] for fever and sickle cell crisis, which started a week ago. The patient saw his Hematology, a week almost before this presentation, and he was given intravenous antibiotics in the office and was discharged with doxycycline for 7 days. He completed his course but on 12/08/2018, he began to experience bilateral leg pain and felt tired and fatigued. So, he presented to the emergency room at [facility] for evaluation. The patient's white count was found to be elevated around 19,000 concerning for infection or infectious process. So, Infectious Disease consultation was requested for antibiotics treatment and further management. PAST MEDICAL HISTORY: Significant for sickle cell disease, asthma, and avascular necrosis of the left hip. 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 MEDICATIONS: He is on Benadryl, chlorhexidine, hydroxyurea, heparin, oxycodone, Tylenol, MiraLAX, Zofran, Ativan, Ambien, and Dilaudid. ALLERGIES: He is allergic to capsaicin, ceftriaxone, and contrast. FAMILY HISTORY: Noncontributory. SOCIAL HISTORY: The patient is single. 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 Lives with family. Denied using any drugs, tobacco, or alcohol. REVIEW OF SYSTEMS: A 14-point of system reviewed were all negative apart from the one I mentioned above in my History and Physical. PHYSICAL EXAMINATION: VITAL SIGNS: Temperature of 97.9, pulse 57, respirations 17, blood pressure 130/71, and saturation 99% on room air. GENERAL: A young male, lying in bed, awake, alert, comfortable, not in acute distress. HEENT: Normocephalic and atraumatic. Pupils are reactive to light equally. Moist oral mucosa. No exudate or thrush. NECK: Supple. No lymphadenopathy. CARDIOVASCULAR: Regular rate and rhythm. No murmur or gallop. LUNGS: Clear bilaterally. No wheezing or rhonchi. Normal breathing efforts. ABDOMEN: Soft, nontender, and nondistended. Normal bowel sounds. No hepatosplenomegaly or ascites. EXTREMITY: No edema or cyanosis. SKIN: No rash. No hives. No ulceration. LABORATORY DATA: Labs showed white count of 21,000, hemoglobin of 9.5, and platelet count of 336,000. BUN of 7 and creatinine of 0.6. AST of 55, ALT of 123, and alk phosphatase of 92. Urinalysis was negative for nitrite and negative for leukocyte esterase. AST of 55 and ALT of 123. ASSESSMENT AND RECOMMENDATION: 1. Leukocytosis, rule out infection or infectious process. We will send blood culture. Get urinalysis and chest x-ray for further evaluation. We will monitor off antibiotics and follow carefully his white count pending workup. 2. Fever. Suspect sickle cell crisis. Possible infection. Workup as above. Continue hydration and Tylenol as needed. 3. Sickle cell crisis. Continue pain management. Blood transfusion if needed and hydration. Followup with Hematology. Thank you for the consult. ID will continue to follow. Emeka Solorzano M.D. DR: RAMÍREZ JOB#: [id number] CC:
--- NOTE | 2018-12-15 03:31 | NUR ---
NURSE NOTES: Patient is asleep but arousable by voice. Denies pain at this time. VSS. Will continue to monitor.
[2018-12-15 04:00] VITALS: BP 127/68
--- NOTE | 2018-12-15 07:15 | NUR ---
NURSE NOTES: Report received from Joan SORENSEN, rounds made. Patient sleeping in right lateral position, in bed. No distress noted on RA. IVF infusing to right PortaCath as ordered. Bed in lowest position, call light in reach, will continue to monitor.
[2018-12-15 07:24] LABS: ANION GAP 7 mmol/L (5-15); BASOPHILS % (AUTO) 1.2 % (0.0-2.0); BLOOD UREA NITROGEN 5 mg/dL (7-18); CALCIUM 9.1 MG/DL (8.5-10.1); CARBON DIOXIDE 28 MMOL/L (21-32); CHLORIDE 103 MMOL/L (98-107); CREATININE 0.6 MG/DL (0.55-1.30); EOSINOPHILS % (AUTO) 2.1 % (0.0-3.0); HEMOGLOBIN 8.8 G/DL (14.2-18.0); LYMPHOCYTES % (AUTO) 48.2 % (20.0-45.0); MEAN CORPUSCULAR VOLUME 80 FL (80-99); MONOCYTES % (AUTO) 7.3 % (1.0-10.0); NEUTROPHILS % (AUTO) 41.2 % (45.0-75.0); PLATELET COUNT 353 K/UL (150-450); POTASSIUM 3.9 MMOL/L (3.5-5.1); RED BLOOD COUNT 3.37 M/UL (4.70-6.10); RED CELL DISTRIBUTION WIDTH 16.8 % (11.6-14.8); SODIUM 138 MMOL/L (136-145); WHITE BLOOD COUNT 12.3 K/UL (4.8-10.8)
--- NOTE | 2018-12-15 07:42 | NUR ---
HAND-OFF: Report given to Stephanie SORENSEN. Patient is sleeping in bed, VSS. Denies pain at this time. Endorsed plan of care.
[2018-12-15 08:00] VITALS: BP 127/74
--- NOTE | 2018-12-15 08:25 | NUR ---
NURSE NOTES: Microbiology ([facility]) called to report blood cultures resulted, gram + cocci in clusters. Dr. Bearden notified. Will continue to monitor.
--- NOTE | 2018-12-15 08:50 | NUR ---
NURSE NOTES: Spoke with Dr. Solorzano regarding blood culture results, orders to remove PortaCath, (radiology notified), and start Vancomycin, (pharmacy to dose), and start peripheral IV site. Patient updated with new plan of care. Patient refused for PortaCath to be removed. Will notify
[2018-12-15] MEDS: Hydroxyurea 500mg cap ORAL SCH (09:11)
--- NOTE | 2018-12-15 09:18 | General Progress Note ---
Assessment/Plan Assessment/Plan: (1) Sickle cell disease (2) Sickle cell crisis (3) Intractable pain Pt will be continued on OxyContin and Dilaudid. D/w Dr. Tucker and he concurred Subjective Date patient seen: December 15, 2018 Time patient seen: 07:30 - am Allergies: Coded Allergies: CAPSAICIN (Verified Allergy, Unknown, 11/23/18) CEFTRIAXONE (Verified Allergy, Unknown, 11/23/18) Uncoded Allergies: CONTRAST (Adverse Reaction, Severe, Rash, 06/23/16) RADIOCONTRAST - RASH, ITCHING Subjective Constitutional: Reports: chills, weakness HEENT: Reports: no symptoms Cardiovascular: Reports: no symptoms Respiratory: Reports: no symptoms Gastrointestinal/Abdominal: Reports: no symptoms Genitourinary: Reports: no symptoms Neurologic/Psychiatric: Reports: tingling, weakness Endocrine: Reports: no symptoms Hematologic/Lymphatic: Reports: no symptoms Subjective Patient continues to c/o severe pain which he has been tolerating on the Oxycontin and Dilaudid. D/w Nurse at bedside. He has no new complaints at this time. Objective Last 24 Hour Vital Signs Date Time Temp Pulse Resp B/P (MAP) Pulse Ox O2 Delivery O2 Flow Rate FiO2 12/15/18 04:00 98.4 69 18 127/68 (87) 97 12/15/18 00:00 98.4 66 18 124/73 (90) 97 12/14/18 20:36 98.0 76 20 98 12/14/18 20:00 110/63 (79) 12/14/18 18:00 Room Air 12/14/18 16:00 98.4 66 18 116/66 (83) 97 12/14/18 12:00 98.2 77 18 126/83 (97) 98 Intake and Output 12/14/18 12/15/18 19:00 07:00 Intake Total 2486 ml 900 ml Output Total 1400 ml Balance 2486 ml -500 ml Intake Oral 1136 ml IV Total 1350 ml 900 ml Output Urine Total 1400 ml # Voids 3 3 # Bowel Movements 2 Laboratory Tests 12/14/18 13:00: Hepatitis B Surface Antigen Negative, Hepatitis B Core IgM Antibody Negative, Hepatitis C Antibody <0.1 12/15/18 05:30: White Blood Count 12.3H, Red Blood Count 3.37L, Hemoglobin 8.8L, Hematocrit 27.0L, Mean Corpuscular Volume 80, Mean Corpuscular Hemoglobin 26.2L, Mean Corpuscular Hemoglobin Concent 32.7, Red Cell Distribution Width 16.8H, Platelet Count 353, Mean Platelet Volume 7.5, Neutrophils (%) (Auto) 41.2L, Lymphocytes (%) (Auto) 48.2H, Monocytes (%) (Auto) 7.3, Eosinophils (%) (Auto) 2.1, Basophils (%) (Auto) 1.2, Sodium Level 138, Potassium Level 3.9, Chloride Level 103, Carbon Dioxide Level 28, Anion Gap 7, Blood Urea Nitrogen 5L, Creatinine 0.6, Estimat Glomerular Filtration Rate > 60, Glucose Level 89, Calcium Level 9.1, Lactate Dehydrogenase 234 Height (Feet): 5 Height (Inches): 6.00 Weight (Pounds): 250 Objective General Appearance: no apparent distress, alert EENT: PERRL/EOMI, normal ENT inspection Neck: non-tender, normal alignment Cardiovascular: normal rate, regular rhythm Respiratory/Chest: decreased breath sounds Abdomen: non tender, soft Extremities: non-tender Edema: no edema noted Arm (L), no edema noted Arm (R), no edema noted Leg (L), no edema noted Leg (R), no edema noted Pedal (L), no edema noted Pedal (R), no edema noted Generalized Neurologic: alert, oriented x 3 Skin: warm/dry Orlando Oglesby December 15, 2018 09:18
[2018-12-15] MEDS: Heparin 5000 units/ml inj SUBQ SCH ×2 (09:25→20:43)
--- NOTE | 2018-12-15 09:52 | NUR ---
CASE MANAGEMENT:REVIEW 12/15/18 SI:SICKLE CELL CRISIS. ASTHMA AVASCULAR NECROSIS OF LT HIP 98.4 69 18 127/68 97% ON RA WBC+12.3 H/H-8.8/27.0 IS: IV VANCOMYCIN Q8HRS IVF@150/HR HYDREA PO QD HEPARIN SQ Q12 OXYCONTIN PO Q12 IV DILAUDID Q3HRS PRN : TO MED/SURG 3 [facility] DCP: FROM HOME PLAN: BLOOD CX
[2018-12-15] MEDS ORDERED: Vancomycin 2gm/D5W 550ml IVPB ONE ×2 (10:30)
[2018-12-15] MEDS: oxyCONTIN 10mg tab ORAL SCH ×2 (10:48→20:42)
--- NOTE | 2018-12-15 11:00 | NUR ---
NURSE NOTES: Dr. Solorzano notified that patient is refusing PortaCath removal and difficulty with finding IV access. Orders changed for oral antibiotics. See order. Patient updated with new plan of care, verbalized understanding.
--- NOTE | 2018-12-15 11:04 | NUR ---
*-* INSURANCE *-* ALL CLINICALS AND REVIEWS HAVE BEEN FAXED TO: [employer]: HAYLIE P- [phone] f- [phone]
[2018-12-15 12:00] VITALS: BP 115/71
--- NOTE | 2018-12-15 12:20 | NUR ---
NURSE NOTES: IV inserted to LAC #24, site asymptomatic, flushed, IVF infusing at 150 ml/hr as ordered. Brenda-Cath clamped, awaiting on radiology for further plans. Will continue to monitor.
--- NOTE | 2018-12-15 12:41 | Pulmonology Progress Note ---
Assessment/Plan Problems: (1) Sickle cell crisis (2) Bacteremia Assessment/Plan iv abx check sensitivity repeat cultures next week symptomatic treatment. Subjective ROS Limited/Unobtainable: No Constitutional: Reports: no symptoms HEENT: Repors: no symptoms Respiratory: Reports: no symptoms Allergies: Coded Allergies: CAPSAICIN (Verified Allergy, Unknown, 11/23/18) CEFTRIAXONE (Verified Allergy, Unknown, 11/23/18) Uncoded Allergies: CONTRAST (Adverse Reaction, Severe, Rash, 06/23/16) RADIOCONTRAST - RASH, ITCHING Objective Last 24 Hour Vital Signs Date Time Temp Pulse Resp B/P (MAP) Pulse Ox O2 Delivery O2 Flow Rate FiO2 12/15/18 08:00 98.4 56 18 127/74 (91) 99 12/15/18 04:00 98.4 69 18 127/68 (87) 97 12/15/18 00:00 98.4 66 18 124/73 (90) 97 12/14/18 20:36 98.0 76 20 98 12/14/18 20:00 110/63 (79) 12/14/18 18:00 Room Air 12/14/18 16:00 98.4 66 18 116/66 (83) 97 Intake and Output 12/14/18 12/15/18 19:00 07:00 Intake Total 2486 ml 900 ml Output Total 1400 ml Balance 2486 ml -500 ml Intake Oral 1136 ml IV Total 1350 ml 900 ml Output Urine Total 1400 ml # Voids 3 3 # Bowel Movements 2 General Appearance: WD/WN HEENT: normocephalic, atraumatic Respiratory/Chest: chest wall non-tender, lungs clear Cardiovascular: normal peripheral pulses, regular rhythm Abdomen: normal bowel sounds, soft, non tender Genitourinary: normal external genitalia Skin: no rash Microbiology Date/Time Source Procedure Growth Status 12/13/18 22:20 Blood Blood Culture - Preliminary Resulted 12/13/18 22:00 Blood Blood Culture - Preliminary Resulted Laboratory Tests 12/14/18 13:00: Hepatitis B Surface Antigen Negative, Hepatitis B Core IgM Antibody Negative, Hepatitis C Antibody <0.1 12/15/18 05:30: White Blood Count 12.3H, Red Blood Count 3.37L, Hemoglobin 8.8L, Hematocrit 27.0L, Mean Corpuscular Volume 80, Mean Corpuscular Hemoglobin 26.2L, Mean Corpuscular Hemoglobin Concent 32.7, Red Cell Distribution Width 16.8H, Platelet Count 353, Mean Platelet Volume 7.5, Neutrophils (%) (Auto) 41.2L, Lymphocytes (%) (Auto) 48.2H, Monocytes (%) (Auto) 7.3, Eosinophils (%) (Auto) 2.1, Basophils (%) (Auto) 1.2, Sodium Level 138, Potassium Level 3.9, Chloride Level 103, Carbon Dioxide Level 28, Anion Gap 7, Blood Urea Nitrogen 5L, Creatinine 0.6, Estimat Glomerular Filtration Rate > 60, Glucose Level 89, Calcium Level 9.1, Lactate Dehydrogenase 234 Current Medications Medications (Trade) Dose Ordered Sig/Arianne Route PRN Reason Start Time Stop Time Status Last Admin Dose Admin Acetaminophen (Tylenol) 650 mg Q4H PRN ORAL fever 12/12/18 13:45 01/11/19 13:44 Chlorhexidine Gluconate (Jihan-Hex 2%) 1 applic DAILY@2000 TOPIC 12/13/18 20:00 01/12/19 19:59 12/14/18 20:34 Dextrose (Dextrose 50%) 25 ml Q30M PRN IV Hypoglycemia 12/12/18 13:45 01/11/19 13:38 Dextrose (Dextrose 50%) 50 ml Q30M PRN IV hypoglycemia 12/12/18 13:45 01/11/19 13:44 Diphenhydramine HCl (Benadryl) 25 mg Q6H PRN IVP Itching 12/14/18 11:45 01/13/19 11:44 12/15/18 09:11 Heparin Sodium (Porcine) (Heparin 5000 units/ml) 5,000 units EVERY 12 HOURS SUBQ 12/12/18 21:00 01/11/19 20:59 12/15/18 09:25 Hydromorphone HCl (Dilaudid) 2 mg Q3H PRN IV pain 4-6 12/12/18 13:45 12/19/18 13:44 Hydromorphone HCl (Dilaudid) 3 mg Q3H PRN IVP For Pain 7-12/12/18 13:45 12/19/18 13:44 12/15/18 09:13 Hydroxyurea (Hydrea) 1,500 mg DAILY ORAL 12/13/18 09:00 12/18/18 08:59 12/15/18 09:11 Linezolid (Zyvox) 600 mg EVERY 12 HOURS ORAL 12/15/18 21:00 12/20/18 20:59 Linezolid (Zyvox) 600 mg ONCE ORAL 12/15/18 12:30 12/15/18 13:30 Lorazepam (Ativan 2mg/ml 1ml) 0.5 mg Q4H PRN IV For Anxiety 12/12/18 13:45 12/19/18 13:44 Ondansetron HCl (Zofran) 4 mg Q6H PRN IVP Nausea & Vomiting 12/12/18 13:45 01/11/19 13:44 Oxycodone HCl (OxyCONTIN) 30 mg Q12HR ORAL 12/12/18 21:00 12/19/18 20:59 12/15/18 10:48 Polyethylene Glycol (Miralax) 17 gm HSPRN PRN ORAL Constipation 12/12/18 13:45 01/11/19 13:44 Sodium Chloride 1,000 ml @ 150 mls/hr Q6H40M IV 12/13/18 18:45 01/12/19 18:44 12/15/18 03:59 Zolpidem Tartrate (Ambien) 5 mg HSPRN PRN ORAL Insomnia 12/12/18 13:45 12/19/18 13:44 Ranjith Caicedo MD December 15, 2018 12:41
--- NOTE | 2018-12-15 15:45 | Internal Med Progress Note ---
Subjective Physician Name Jersey Bearden Attending Physician Jersey Bearden MD Current Medications Medications (Trade) Dose Ordered Sig/Arianne Route PRN Reason Start Time Stop Time Status Last Admin Dose Admin Acetaminophen (Tylenol) 650 mg Q4H PRN ORAL fever 12/12/18 13:45 01/11/19 13:44 Chlorhexidine Gluconate (Jihan-Hex 2%) 1 applic DAILY@2000 TOPIC 12/13/18 20:00 01/12/19 19:59 12/14/18 20:34 Dextrose (Dextrose 50%) 25 ml Q30M PRN IV Hypoglycemia 12/12/18 13:45 01/11/19 13:38 Dextrose (Dextrose 50%) 50 ml Q30M PRN IV hypoglycemia 12/12/18 13:45 01/11/19 13:44 Diphenhydramine HCl (Benadryl) 25 mg Q6H PRN IVP Itching 12/14/18 11:45 01/13/19 11:44 12/15/18 09:11 Heparin Sodium (Porcine) (Heparin 5000 units/ml) 5,000 units EVERY 12 HOURS SUBQ 12/12/18 21:00 01/11/19 20:59 12/15/18 09:25 Hydromorphone HCl (Dilaudid) 2 mg Q3H PRN IV pain 4-6 12/12/18 13:45 12/19/18 13:44 Hydromorphone HCl (Dilaudid) 3 mg Q3H PRN IVP For Pain 7-10 12/12/18 13:45 12/19/18 13:44 12/15/18 13:03 Hydroxyurea (Hydrea) 1,500 mg DAILY ORAL 12/13/18 09:00 12/18/18 08:59 12/15/18 09:11 Linezolid (Zyvox) 600 mg EVERY 12 HOURS ORAL 12/15/18 21:00 12/20/18 20:59 Lorazepam (Ativan 2mg/ml 1ml) 0.5 mg Q4H PRN IV For Anxiety 12/12/18 13:45 12/19/18 13:44 Ondansetron HCl (Zofran) 4 mg Q6H PRN IVP Nausea & Vomiting 12/12/18 13:45 01/11/19 13:44 Oxycodone HCl (OxyCONTIN) 30 mg Q12HR ORAL 12/12/18 21:00 12/19/18 20:59 12/15/18 10:48 Polyethylene Glycol (Miralax) 17 gm HSPRN PRN ORAL Constipation 12/12/18 13:45 01/11/19 13:44 Sodium Chloride 1,000 ml @ 150 mls/hr Q6H40M IV 12/13/18 18:45 01/12/19 18:44 12/15/18 13:00 Zolpidem Tartrate (Ambien) 5 mg HSPRN PRN ORAL Insomnia 12/12/18 13:45 12/19/18 13:44 Allergies: Coded Allergies: CAPSAICIN (Verified Allergy, Unknown, 11/23/18) CEFTRIAXONE (Verified Allergy, Unknown, 11/23/18) Uncoded Allergies: CONTRAST (Adverse Reaction, Severe, Rash, 06/23/16) RADIOCONTRAST - RASH, ITCHING Subjective Awake, alert, responsive, C/O pain., No CP or SOB. Objective Last Vital Signs Date Time Temp Pulse Resp B/P (MAP) Pulse Ox O2 Delivery O2 Flow Rate FiO2 12/15/18 08:00 98.4 56 18 127/74 (91) 99 12/14/18 18:00 Room Air Laboratory Tests Test 12/15/18 05:30 White Blood Count 12.3 K/UL (4.8-10.8) H Red Blood Count 3.37 M/UL (4.70-6.10) L Hemoglobin 8.8 G/DL (14.2-18.0) L Hematocrit 27.0 % (42.0-52.0) L Mean Corpuscular Volume 80 FL (80-99) Mean Corpuscular Hemoglobin 26.2 PG (27.0-31.0) L Mean Corpuscular Hemoglobin Concent 32.7 G/DL (32.0-36.0) Red Cell Distribution Width 16.8 % (11.6-14.8) H Platelet Count 353 K/UL (150-450) Mean Platelet Volume 7.5 FL (6.5-10.1) Neutrophils (%) (Auto) 41.2 % (45.0-75.0) L Lymphocytes (%) (Auto) 48.2 % (20.0-45.0) H Monocytes (%) (Auto) 7.3 % (1.0-10.0) Eosinophils (%) (Auto) 2.1 % (0.0-3.0) Basophils (%) (Auto) 1.2 % (0.0-2.0) Sodium Level 138 MMOL/L (136-145) Potassium Level 3.9 MMOL/L (3.5-5.1) Chloride Level 103 MMOL/L (98-107) Carbon Dioxide Level 28 MMOL/L (21-32) Anion Gap 7 mmol/L (5-15) Blood Urea Nitrogen 5 mg/dL (7-18) L Creatinine 0.6 MG/DL (0.55-1.30) Estimat Glomerular Filtration Rate > 60 mL/min (>60) Glucose Level 89 MG/DL (74-106) Calcium Level 9.1 MG/DL (8.5-10.1) Lactate Dehydrogenase 234 U/L (81-234) Microbiology Date/Time Source Procedure Growth Status 12/13/18 22:20 Blood Blood Culture - Preliminary Resulted 12/13/18 22:00 Blood Blood Culture - Preliminary Resulted Intake and Output 12/14/18 12/15/18 18:59 06:59 Intake Total 2636 ml 900 ml Output Total 1400 ml Balance 2636 ml -500 ml Intake Oral 1136 ml IV Total 1500 ml 900 ml Output Urine Total 1400 ml # Voids 3 3 # Bowel Movements 2 Objective General: No acute distress, awake and alert HEENT: NCAT, sclera anicteric, PERRL, EOMI. Neck: Supple, no significant jugular venous distention, Lungs: Good inspiratory effort, clear to auscultation bilaterally, no Wheeze or Rales. CHEST WALL: Right side [place] Heart: Regular rate and rhythm, normal S1/S2, no murmurs Abdomen: soft, nontender, nondistended. Normoactive bowel sounds, Obesity. / Rectal: Refused and deferred. Extremities: No Cyanosis , clubbing or edema. Neuro: A&O x 3, Able to move all extremities Skin: warm, no rashes or lesions Psych: Normal mood and affect Assessment/Plan Assessment/Plan ASSESSMENT: This is a 23-year-old male. 1. Sickle cell crisis. 2. Sickle cell disease. 3. Asthma. 4. Avascular necrosis of the left hip. 5. GPC Bacteremia. TREATMENT: 1. Sickle cell crisis/sickle cell disease. The patient has been offered pain medication including intravenous Dilaudid. The patient is requesting long-acting OxyContin as well. 2. Asthma. Continue Advair as above. A Pulmonary consultation has been obtained with Dr. Ranjith Caicedo. 3. Avascular necrosis of the left hip. 4. Leukocytosis possible due to bacteremia on Linezolid 5. Elevated liver function tests. 6. Pain management consult with Dr Tucker - monitor labs and culture - He does not want to remove chest [place]. Jersey Bearden MD December 15, 2018 15:45
[2018-12-15 16:00] VITALS: BP 122/77
--- NOTE | 2018-12-15 18:00 | NUR ---
NURSE NOTES: Brenda Cath site to [facility], dressing remains CDI throughout shift. No redness, swelling, or foul odor noted. VSS, afebrile. Will continue to monitor.
--- NOTE | 2018-12-15 19:45 | NUR ---
HAND-OFF: Report given to Salma SORENSEN.
[2018-12-15 20:00] VITALS: BP 129/69
[2018-12-15] MEDS ORDERED: Vancomycin 1gm/D5W 275ml IVPB SCH ×2 (20:00)
[2018-12-15] MEDS: Dyna-Hex 2% Top Sol 2oz TOPIC SCH (20:22)
--- NOTE | 2018-12-15 20:30 | NUR ---
NURSE NOTES: Received patient awake in bed, no s/s of acute distress, c/o 6/10 pain, will follow EMR for pain management. Fall and safety precautions taken. IV access asymptomatic, currently running IVF. CHG bath given.
--- NOTE | 2018-12-15 20:36 | Infectious Diseases Prog Note ---
Assessment/Plan Problems: (1) Port-A-Cath in place Assessment & Plan: infected with gram positive cocci grow out of 4 bottles , recommend removal as soon as possible , will start him on zyvox pending establishment of peripheral access, since vancomycin was not given due to poor access. D/W patient and nurse (2) Leukocytosis Assessment & Plan: suspect due to bacteremia and Port A infection , await blood culture, recommend Brenda A cath removal, continue oral zyvox pending IV access (3) Fever Assessment & Plan: recurrent suspect due to bacteremia, continue antibiotics and tylenol (4) Sickle cell crisis Assessment & Plan: continue pain management, blood transfusion as needed, and hydration, follow up with hematology Subjective Constitutional: Reports: fever, fatigue HEENT: Reports: no symptoms Respiratory: Reports: no symptoms Breasts: Reports: no symptoms Cardiovascular: Reports: no symptoms Gastrointestinal/Abdominal: Reports: no symptoms Genitourinary: Reports: no symptoms Neurologic: Reports: no symptoms Psychiatric: Reports: no symptoms Skin: Reports: no symptoms Endocrine: Reports: no symptoms Hematologic: Reports: no symptoms Musculoskeletal: Reports: pain Allergies: Coded Allergies: CAPSAICIN (Verified Allergy, Unknown, 11/23/18) CEFTRIAXONE (Verified Allergy, Unknown, 11/23/18) Uncoded Allergies: CONTRAST (Adverse Reaction, Severe, Rash, 06/23/16) RADIOCONTRAST - RASH, ITCHING Subjective He was resistant to have the Port A cath removed , I explained to him the risks which include sepsis, shock, metastatic infection, ETC.. Objective Vital Signs Last 24 Hour Vital Signs Date Time Temp Pulse Resp B/P (MAP) Pulse Ox O2 Delivery O2 Flow Rate FiO2 12/15/18 17:15 98.3 12/15/18 16:00 99.5 81 17 122/77 (92) 99 12/15/18 16:00 Room Air 12/15/18 12:00 98.2 56 18 115/71 (86) 99 12/15/18 09:00 Room Air 12/15/18 08:00 98.4 56 18 127/74 (91) 99 12/15/18 04:00 98.4 69 18 127/68 (87) 97 12/15/18 00:00 98.4 66 18 124/73 (90) 97 12/14/18 20:36 98.0 76 20 98 Height (Feet): 5 Height (Inches): 6.00 Weight (Pounds): 250 General Appearance: WD/WN, no acute distress HEENT: normocephalic, atraumatic, anicteric, mucous membranes moist, PERRL, EOMI, pharynx normal, supple Respiratory/Chest: chest wall non-tender, lungs clear, normal breath sounds, no respiratory distress, no accessory muscle use, other - RIGHT UPPER CHEST PORT A CATH site looks ok Cardiovascular: normal peripheral pulses, normal rate, regular rhythm, no gallop/murmur, no JVD Abdomen: normal bowel sounds, soft, non tender, no organomegaly, non distended , no mass, no scars Genitourinary: normal external genitalia Extremities: no cyanosis, no clubbing Skin: no rash, no lesions, no ulcers Neurologic/Psychiatric: 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, no motor/sensory deficits, alert, responsive Lymphatic: no neck adenopathy, no groin adenopathy Musculoskeletal: normal muscle bulk, no effusion Microbiology Date/Time Source Procedure Growth Status 12/13/18 22:20 Blood Blood Culture - Preliminary Resulted 12/13/18 22:00 Blood Blood Culture - Preliminary Resulted Laboratory Tests Test 12/15/18 05:30 White Blood Count 12.3 K/UL (4.8-10.8) H Red Blood Count 3.37 M/UL (4.70-6.10) L Hemoglobin 8.8 G/DL (14.2-18.0) L Hematocrit 27.0 % (42.0-52.0) L Mean Corpuscular Volume 80 FL (80-99) Mean Corpuscular Hemoglobin 26.2 PG (27.0-31.0) L Mean Corpuscular Hemoglobin Concent 32.7 G/DL (32.0-36.0) Red Cell Distribution Width 16.8 % (11.6-14.8) H Platelet Count 353 K/UL (150-450) Mean Platelet Volume 7.5 FL (6.5-10.1) Neutrophils (%) (Auto) 41.2 % (45.0-75.0) L Lymphocytes (%) (Auto) 48.2 % (20.0-45.0) H Monocytes (%) (Auto) 7.3 % (1.0-10.0) Eosinophils (%) (Auto) 2.1 % (0.0-3.0) Basophils (%) (Auto) 1.2 % (0.0-2.0) Sodium Level 138 MMOL/L (136-145) Potassium Level 3.9 MMOL/L (3.5-5.1) Chloride Level 103 MMOL/L (98-107) Carbon Dioxide Level 28 MMOL/L (21-32) Anion Gap 7 mmol/L (5-15) Blood Urea Nitrogen 5 mg/dL (7-18) L Creatinine 0.6 MG/DL (0.55-1.30) Estimat Glomerular Filtration Rate > 60 mL/min (>60) Glucose Level 89 MG/DL (74-106) Calcium Level 9.1 MG/DL (8.5-10.1) Lactate Dehydrogenase 234 U/L (81-234) Current Medications Medications (Trade) Dose Ordered Sig/Arianne Route PRN Reason Start Time Stop Time Status Last Admin Dose Admin Acetaminophen (Tylenol) 650 mg Q4H PRN ORAL fever 12/12/18 13:45 01/11/19 13:44 Chlorhexidine Gluconate (Jihan-Hex 2%) 1 applic DAILY@1999 TOPIC 12/13/18 20:00 01/12/19 19:59 12/15/18 20:22 Dextrose (Dextrose 50%) 25 ml Q30M PRN IV Hypoglycemia 12/12/18 13:45 01/11/19 13:38 Dextrose (Dextrose 50%) 50 ml Q30M PRN IV hypoglycemia 12/12/18 13:45 01/11/19 13:44 Diphenhydramine HCl (Benadryl) 25 mg Q6H PRN IVP Itching 12/14/18 11:45 01/13/19 11:44 12/15/18 16:53 Heparin Sodium (Porcine) (Heparin 5000 units/ml) 5,000 units EVERY 12 HOURS SUBQ 12/12/18 21:00 01/11/19 20:59 12/15/18 09:25 Hydromorphone HCl (Dilaudid) 2 mg Q3H PRN IV pain 4-6 12/12/18 13:45 12/19/18 13:44 Hydromorphone HCl (Dilaudid) 3 mg Q3H PRN IVP For Pain 7-12/12/18 13:45 12/19/18 13:44 12/15/18 16:53 Hydroxyurea (Hydrea) 1,500 mg DAILY ORAL 12/13/18 09:00 12/18/18 08:59 12/15/18 09:11 Linezolid (Zyvox) 600 mg EVERY 12 HOURS ORAL 12/15/18 21:00 12/20/18 20:59 Lorazepam (Ativan 2mg/ml 1ml) 0.5 mg Q4H PRN IV For Anxiety 12/12/18 13:45 12/19/18 13:44 Ondansetron HCl (Zofran) 4 mg Q6H PRN IVP Nausea & Vomiting 12/12/18 13:45 01/11/19 13:44 Oxycodone HCl (OxyCONTIN) 30 mg Q12HR ORAL 12/12/18 21:00 12/15/18 21:00 12/15/18 10:48 Oxycodone HCl (OxyCONTIN) 30 mg THREE TIMES A DAY ORAL 12/16/18 09:00 12/19/18 20:59 Polyethylene Glycol (Miralax) 17 gm HSPRN PRN ORAL Constipation 12/12/18 13:45 01/11/19 13:44 Sodium Chloride 1,000 ml @ 150 mls/hr Q6H40M IV 12/13/18 18:45 01/12/19 18:44 12/15/18 18:29 Zolpidem Tartrate (Ambien) 5 mg HSPRN PRN ORAL Insomnia 12/12/18 13:45 12/19/18 13:44 Emeka Solorzano M.D. December 15, 2018 20:36
[2018-12-16] VITALS: BP 129/69
[2018-12-16] MEDS: DiphenhydrAMINE 50mg/ml Inj IVP PRN ×4 (01:00→22:09)
[2018-12-16 04:00] VITALS: BP 114/69
--- NOTE | 2018-12-16 07:20 | NUR ---
NURSE NOTES:BEDSIDE ROUNDS DONE,PATIENT A/O X4,ROOM AIR,IV SITE LEFT AC#24 PATENT.RIGHT COTY CATH IN PLACE NOT ACCESS(AWAITING FOR REMOVAL)PAIN CONTROLLED AT THIS TIME BUT REQUESTING FOR BENADRYL.MEDICATED BY NIGHT RN(HARI).PLAN OF CARE DISCUSSED AND WITH UNDERSTANDING.
--- NOTE | 2018-12-16 07:41 | NUR ---
HAND-OFF: Report given to EDU Thurman. Patient awake, no s/s of acute distress
[2018-12-16 08:00] VITALS: BP 123/69
[2018-12-16] MEDS: Hydroxyurea 500mg cap ORAL SCH (08:33)
[2018-12-16] MEDS: Heparin 5000 units/ml inj SUBQ SCH ×2 (08:34→22:13)
[2018-12-16] MEDS ORDERED: 1/2 NS 1000ml IV ONE (08:57)
[2018-12-16] MEDS: oxyCONTIN 10mg tab ORAL SCH ×4 (09:00→18:00)
[2018-12-16 12:00] VITALS: BP 114/73
--- NOTE | 2018-12-16 13:27 | NUR ---
CASE MANAGEMENT: REVIEW SI: SICKLE CELL CRISIS T 98.4 HR 57 RR 19 BP 132/69 SAT 97% ROOM AIR IS: OXYCONTIN PO TID ZYVOX PO Q12HR NS IVF @150ML/HR MED/SURG STATUS DCP: PATIENT IS FROM HOME
[2018-12-16 16:00] VITALS: BP 96/60
--- NOTE | 2018-12-16 16:35 | Internal Med Progress Note ---
Subjective Date of Service: December 16, 2018 Physician Name Rubalcava,Edilson Attending Physician Jersey Bearden MD Current Medications Medications (Trade) Dose Ordered Sig/Arianne Route PRN Reason Start Time Stop Time Status Last Admin Dose Admin Acetaminophen (Tylenol) 650 mg Q4H PRN ORAL fever 12/12/18 13:45 01/11/19 13:44 Chlorhexidine Gluconate (Jihan-Hex 2%) 1 applic DAILY@2000 TOPIC 12/13/18 20:00 01/12/19 19:59 12/15/18 20:22 Dextrose (Dextrose 50%) 25 ml Q30M PRN IV Hypoglycemia 12/12/18 13:45 01/11/19 13:38 Dextrose (Dextrose 50%) 50 ml Q30M PRN IV hypoglycemia 12/12/18 13:45 01/11/19 13:44 Diphenhydramine HCl (Benadryl) 25 mg Q6H PRN IVP Itching 12/14/18 11:45 01/13/19 11:44 12/16/18 15:52 Heparin Sodium (Porcine) (Heparin 5000 units/ml) 5,000 units EVERY 12 HOURS SUBQ 12/12/18 21:00 01/11/19 20:59 12/15/18 20:43 Hydromorphone HCl (Dilaudid) 2 mg Q3H PRN IV pain 4-6 12/12/18 13:45 12/19/18 13:44 12/16/18 15:52 Hydromorphone HCl (Dilaudid) 3 mg Q3H PRN IVP For Pain 7-10 12/12/18 13:45 12/19/18 13:44 12/16/18 00:55 Hydroxyurea (Hydrea) 1,500 mg DAILY ORAL 12/13/18 09:00 12/18/18 08:59 12/16/18 08:33 Linezolid (Zyvox) 600 mg EVERY 12 HOURS ORAL 12/15/18 21:00 12/20/18 20:59 12/16/18 08:32 Lorazepam (Ativan 2mg/ml 1ml) 0.5 mg Q4H PRN IV For Anxiety 12/12/18 13:45 12/19/18 13:44 Ondansetron HCl (Zofran) 4 mg Q6H PRN IVP Nausea & Vomiting 12/12/18 13:45 01/11/19 13:44 Oxycodone HCl (OxyCONTIN) 30 mg THREE TIMES A DAY ORAL 12/16/18 09:00 12/19/18 20:59 12/16/18 13:39 Polyethylene Glycol (Miralax) 17 gm HSPRN PRN ORAL Constipation 12/12/18 13:45 01/11/19 13:44 Sodium Chloride 1,000 ml @ 150 mls/hr Q6H40M IV 12/13/18 18:45 01/12/19 18:44 12/16/18 12:11 Zolpidem Tartrate (Ambien) 5 mg HSPRN PRN ORAL Insomnia 12/12/18 13:45 12/19/18 13:44 Allergies: Coded Allergies: CAPSAICIN (Verified Allergy, Unknown, 11/23/18) CEFTRIAXONE (Verified Allergy, Unknown, 11/23/18) Uncoded Allergies: CONTRAST (Adverse Reaction, Severe, Rash, 06/23/16) RADIOCONTRAST - RASH, ITCHING ROS Limited/Unobtainable: No Constitutional: Reports: no symptoms HEENT: Reports: no symptoms Cardiovascular: Reports: no symptoms Respiratory: Reports: no symptoms Gastrointestinal/Abdominal: Reports: no symptoms Genitourinary: Reports: no symptoms Neurologic/Psychiatric: Reports: no symptoms Subjective 23 YO M with sicke cell dis. Admitted with sickle cell Crisis. Cover for Int Med-Dr Bearden. C/O generalized pain. Objective Last Vital Signs Date Time Temp Pulse Resp B/P (MAP) Pulse Ox O2 Delivery O2 Flow Rate FiO2 12/16/18 16:00 99.0 85 21 96/60 (72) 97 12/16/18 07:20 Room Air Microbiology Date/Time Source Procedure Growth Status 12/13/18 22:20 Blood Blood Culture - Preliminary Staphylococcus Sp Coag Neg Resulted 12/13/18 22:00 Blood Blood Culture - Preliminary Staphylococcus Sp Coag Neg Resulted Intake and Output 12/15/18 12/16/18 18:59 06:59 Intake Total 2386 ml 1486 ml Output Total 1400 ml Balance 2386 ml 86 ml Intake Oral 736 ml 736 ml IV Total 1650 ml 750 ml Output Urine Total 1400 ml # Voids 2 2 # Bowel Movements 2 1 Objective PHYSICAL EXAMINATION: GENERAL: The patient is a well-developed and well-nourished slightly obese, male, in no apparent distress. HEENT: Eyes, pupils are equal and responsive to light and accommodation. Extraocular movements are intact. NECK: Supple without lymphadenopathy. CHEST: Lungs are clear to auscultation bilaterally without wheezes or rales. CARDIOVASCULAR: Regular rhythm and rate. S1 and S2 are normal without murmurs, rubs, or gallops. ABDOMEN: Soft, nontender, and nondistended. Positive bowel sounds. No evidence of hepatosplenomegaly. Currently, no rebound or guarding noted. EXTREMITIES: Negative for clubbing, cyanosis, or edema. RECTAL/GENITAL: Refused. NEUROLOGIC: Cranial nerves II through XII are grossly intact without focal deficits. Motor strength is 5/5 bilaterally. Deep tendon reflexes are 2+ plantar. Assessment/Plan Assessment/Plan ASSESSMENT: This is a 23-year-old male. 1. Sickle cell crisis. 2. Sickle cell disease. 3. Asthma. 4. Avascular necrosis of the left hip. 5. Sepsis-Coag neg staph TREATMENT: 1. Sickle cell crisis/sickle cell disease. Continue intravenous Dilaudidandlong-acting OxyContin per pain management 2. Asthma. Continue Advair as above. A Pulmonary consultation has been obtained with Dr. Ranjith Caicedo. 3. Avascular necrosis of the left hip. 4. Leukocytosis -secondary to sickle cell crisis 5. Elevated liver function tests. 6. Pain management consult with Dr Tucker 7. Continue linezolid per ID 8. Port-a-cath removal by Int Radiol Edilson Rubalcava MD December 16, 2018 16:35
--- NOTE | 2018-12-16 17:30 | Infectious Diseases Prog Note ---
Assessment/Plan Problems: (1) Port-A-Cath in place Assessment & Plan: infected with coag negative staph grow out of 4 bottles , recommend removal as soon as possible to eliminate source of bacteremia , will continue zyvox orally since no IV access , pending establishment of peripheral access, since vancomycin was not given due to poor access. D/W patient and nurse. patient refused to remove port A cath , he is fully aware of the risks . (2) Leukocytosis Assessment & Plan: suspect due to bacteremia and Port A infection , confirmed by blood culture which was taken mainly from the port , recommend Brenda A cath removal, continue oral zyvox pending IV access. if continues to refuse port A cath removal , recommend to treat with antibiotics for two weeks and repeat blood culture in two weeks to confirm resolution of the bacteremia. (3) Fever Assessment & Plan: recurrent suspect due to bacteremia, continue antibiotics and tylenol (4) Sickle cell crisis Assessment & Plan: continue pain management, blood transfusion as needed, and hydration, follow up with hematology Subjective Constitutional: Reports: no symptoms HEENT: Reports: no symptoms Respiratory: Reports: no symptoms Breasts: Reports: no symptoms Cardiovascular: Reports: no symptoms Gastrointestinal/Abdominal: Reports: no symptoms Genitourinary: Reports: no symptoms Neurologic: Reports: no symptoms Psychiatric: Reports: no symptoms Skin: Reports: no symptoms Endocrine: Reports: no symptoms Hematologic: Reports: no symptoms Musculoskeletal: Reports: pain Allergies: Coded Allergies: CAPSAICIN (Verified Allergy, Unknown, 11/23/18) CEFTRIAXONE (Verified Allergy, Unknown, 11/23/18) Uncoded Allergies: CONTRAST (Adverse Reaction, Severe, Rash, 06/23/16) RADIOCONTRAST - RASH, ITCHING Subjective He was resistant to have the Port A cath removed , I explained to him the risks which include sepsis, shock, metastatic infection, ETC.. Objective Vital Signs Last 24 Hour Vital Signs Date Time Temp Pulse Resp B/P (MAP) Pulse Ox O2 Delivery O2 Flow Rate FiO2 12/16/18 16:00 99.0 85 21 96/60 (72) 97 12/16/18 12:00 98.0 56 21 114/73 (87) 97 12/16/18 08:00 98.4 57 19 123/69 (87) 98 12/16/18 07:20 Room Air 12/16/18 04:00 98.4 62 17 114/69 (84) 98 12/16/18 01:25 98.3 12/16/18 00:00 98.9 68 17 129/69 (89) 100 12/15/18 22:29 98.3 12/15/18 21:00 Room Air 12/15/18 20:00 100.0 71 17 129/69 (89) 97 Height (Feet): 5 Height (Inches): 6.00 Weight (Pounds): 250 General Appearance: WD/WN, no acute distress HEENT: normocephalic, atraumatic, anicteric, mucous membranes moist, PERRL, EOMI, pharynx normal, supple, no JVD Respiratory/Chest: chest wall non-tender, lungs clear, normal breath sounds, no respiratory distress, no accessory muscle use Cardiovascular: normal peripheral pulses, normal rate, regular rhythm, no gallop/murmur, no JVD Abdomen: normal bowel sounds, soft, non tender, no organomegaly, non distended , no mass, no scars Genitourinary: normal external genitalia Extremities: no cyanosis, no clubbing Skin: no rash, no lesions, no ulcers Neurologic/Psychiatric: vp purchasing II-XII 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, no motor/sensory deficits, abnormal gait, alert, oriented x 3, responsive Lymphatic: no neck adenopathy, no groin adenopathy Musculoskeletal: normal muscle bulk, no effusion Microbiology Date/Time Source Procedure Growth Status 12/13/18 22:20 Blood Blood Culture - Preliminary Staphylococcus Sp Coag Neg Resulted 12/13/18 22:00 Blood Blood Culture - Preliminary Staphylococcus Sp Coag Neg Resulted Current Medications Medications (Trade) Dose Ordered Sig/Arianne Route PRN Reason Start Time Stop Time Status Last Admin Dose Admin Acetaminophen (Tylenol) 650 mg Q4H PRN ORAL fever 12/12/18 13:45 01/11/19 13:44 Chlorhexidine Gluconate (Jihan-Hex 2%) 1 applic DAILY@2000 TOPIC 12/13/18 20:00 01/12/19 19:59 12/15/18 20:22 Dextrose (Dextrose 50%) 25 ml Q30M PRN IV Hypoglycemia 12/12/18 13:45 01/11/19 13:38 Dextrose (Dextrose 50%) 50 ml Q30M PRN IV hypoglycemia 12/12/18 13:45 01/11/19 13:44 Diphenhydramine HCl (Benadryl) 25 mg Q6H PRN IVP Itching 12/14/18 11:45 01/13/19 11:44 12/16/18 15:52 Heparin Sodium (Porcine) (Heparin 5000 units/ml) 5,000 units EVERY 12 HOURS SUBQ 12/12/18 21:00 01/11/19 20:59 12/15/18 20:43 Hydromorphone HCl (Dilaudid) 2 mg Q3H PRN IV pain 4-6 12/12/18 13:45 12/19/18 13:44 12/16/18 15:52 Hydromorphone HCl (Dilaudid) 3 mg Q3H PRN IVP For Pain 7-12/12/18 13:45 12/19/18 13:44 12/16/18 00:55 Hydroxyurea (Hydrea) 1,500 mg DAILY ORAL 12/13/18 09:00 12/18/18 08:59 12/16/18 08:33 Linezolid (Zyvox) 600 mg EVERY 12 HOURS ORAL 12/15/18 21:00 12/20/18 20:59 12/16/18 08:32 Lorazepam (Ativan 2mg/ml 1ml) 0.5 mg Q4H PRN IV For Anxiety 12/12/18 13:45 12/19/18 13:44 Ondansetron HCl (Zofran) 4 mg Q6H PRN IVP Nausea & Vomiting 12/12/18 13:45 01/11/19 13:44 Oxycodone HCl (OxyCONTIN) 30 mg THREE TIMES A DAY ORAL 12/16/18 09:00 12/19/18 20:59 12/16/18 13:39 Polyethylene Glycol (Miralax) 17 gm HSPRN PRN ORAL Constipation 12/12/18 13:45 01/11/19 13:44 Sodium Chloride 1,000 ml @ 150 mls/hr Q6H40M IV 12/13/18 18:45 01/12/19 18:44 12/16/18 12:11 Zolpidem Tartrate (Ambien) 5 mg HSPRN PRN ORAL Insomnia 12/12/18 13:45 12/19/18 13:44 Emeka Solorzano M.D. 11, 2019 17:30
--- NOTE | 2018-12-16 18:44 | NUR ---
NURSE NOTES: Received patient from [facility] in stable condition. IV intact, not in respiratory/cardiac distress. Bed is in lowest position and locked. Call light within reach. Will continue to monitor.
--- NOTE | 2018-12-16 19:53 | NUR ---
HAND-OFF: Report given to Ashley.
--- NOTE | 2018-12-16 19:54 | NUR ---
NURSE NOTES: Pt received in bed at lowest position, call light within reach, able to make needs known, pt received pain medication around 7pm, no signs of distress at the moment, will continue to monitor.
[2018-12-16 20:00] VITALS: BP 120/69
[2018-12-16] MEDS: Dyna-Hex 2% Top Sol 2oz TOPIC SCH (20:38)
[2018-12-17] VITALS: BP 138/88
--- NOTE | 2018-12-17 00:02 | NUR ---
HAND-OFF: Report given to EDU Montanez.
--- NOTE | 2018-12-17 00:02 | NUR ---
NURSE NOTES: Received report from EDU Ramirez. Patient in bed, bed locked in low position, side rails up x2, call light within reach. IV site intact. IVF infusing well at 100 cc/hr. Will continue to monitor.
[2018-12-17 04:00] VITALS: BP 123/65
[2018-12-17] MEDS: DiphenhydrAMINE 50mg/ml Inj IVP PRN ×3 (04:18→18:59)
--- NOTE | 2018-12-17 05:52 | NUR ---
NURSE NOTES: Patient refused lab draw at this time, would like it drawn later in the morning.
[2018-12-17 07:35] VITALS: BP 131/68
--- NOTE | 2018-12-17 08:18 | NUR ---
HAND-OFF: Report given to EDU Jama.Patient in stable condition.
--- NOTE | 2018-12-17 08:20 | NUR ---
NURSE NOTES: Received report from Karon Charge nurse. Patient a/o x4 and pain medicine was given at 0715 in the morning. Will continue to monitor.
[2018-12-17] MEDS ORDERED: 1/2 NS 1000ml IV ONE (08:52)
[2018-12-17] MEDS: Hydroxyurea 500mg cap ORAL SCH (08:58)
[2018-12-17] MEDS: oxyCONTIN 10mg tab ORAL SCH ×3 (08:59→17:56)
--- NOTE | 2018-12-17 08:59 | NUR ---
RD ASSESSMENT & RECOMMENDATIONS SEE CARE ACTIVITY FOR COMPLETE ASSESSMENT DAILY ESTIMATED NEEDS: Needs based on Obese, pulmonary 76.8kg adj 20-25 kcals/kg 0022-8121 total kcals 1-1.5 g protein/kg 77-115 g total protein 25-30 mL/kg 4930-3674 total fluid mLs NUTRITION DIAGNOSIS: 1) Obesity etiology unknown as evidenced by BMI >40, pt is 176% Mason Body Weight. 2) Altered nutrition related lab values r/t clinical status, sickle cell crisis, low hgb 8.8 CURRENT DIET:Regular PO DIET RECOMMENDATIONS: Continue Regular Diet ENTERAL NUTRITION RECOMMENDATIONS: to provide ADDITIONAL RECOMMENDATIONS: 1) Obtain a STANDING weight as able for accurate CBW 2) check lytes daily, replete as needed
[2018-12-17] MEDS: Heparin 5000 units/ml inj SUBQ SCH ×2 (09:00→20:20)
[2018-12-17 11:50] VITALS: BP 127/60
--- NOTE | 2018-12-17 12:01 | NUR ---
CASE MANAGEMENT: REVIEW 12/17/2108 SI:SICKLE CELL CRISIS. T 97.8 HR 57 RR 20 B/P 131/68 SATS 98% ON RA NO LABS TODAY IS:IVF @ 150 mL/HR LINEZOLID PO Q12H HYDREA PO QD OXYCONTIN PO TID MED/SURG STATUS
--- NOTE | 2018-12-17 12:35 | General Progress Note ---
Assessment/Plan Assessment/Plan: (1) Sickle cell disease (2) Sickle cell crisis (3) Intractable pain Pt will be continued on OxyContin and Dilaudid. D/w Dr. Tucker and he concurred Subjective Date patient seen: December 17, 2018 Time patient seen: 11:45 - am Allergies: Coded Allergies: CAPSAICIN (Verified Allergy, Unknown, 11/23/18) CEFTRIAXONE (Verified Allergy, Unknown, 11/23/18) Uncoded Allergies: CONTRAST (Adverse Reaction, Severe, Rash, 06/23/16) RADIOCONTRAST - RASH, ITCHING Subjective Constitutional: Reports: chills, weakness HEENT: Reports: no symptoms Cardiovascular: Reports: no symptoms Respiratory: Reports: no symptoms Gastrointestinal/Abdominal: Reports: no symptoms Genitourinary: Reports: no symptoms Neurologic/Psychiatric: Reports: tingling, weakness Endocrine: Reports: no symptoms Hematologic/Lymphatic: Reports: no symptoms Subjective Patient reports that his pain has been severe and due to this was not tolerating the pain on the Oxycodone twice a day which has been switched to three times a day, continues to request the Dilaudid for breakthrough pain. Objective Last 24 Hour Vital Signs Date Time Temp Pulse Resp B/P (MAP) Pulse Ox O2 Delivery O2 Flow Rate FiO2 12/17/18 11:50 97.5 57 19 127/60 (82) 98 12/17/18 09:00 Room Air 12/17/18 07:35 97.8 57 20 131/68 (89) 98 12/17/18 04:00 97.8 64 18 123/65 (84) 98 66 12/17/18 00:00 99.1 85 20 138/88 (105) 98 12/16/18 21:00 Room Air 12/16/18 20:00 99.0 78 18 120/69 (86) 96 12/16/18 16:00 99.0 85 21 96/60 (72) 97 Intake and Output 12/16/18 12/17/18 19:00 07:00 Intake Total 2010 ml 550 ml Output Total 1000 ml 1000 ml Balance 1010 ml -450 ml Intake Oral 960 ml 250 ml IV Total 1050 ml 300 ml Output Urine Total 1000 ml 1000 ml # Voids 2 2 Height (Feet): 5 Height (Inches): 6.00 Weight (Pounds): 250 Objective General Appearance: no apparent distress, alert EENT: PERRL/EOMI, normal ENT inspection Neck: non-tender, normal alignment Cardiovascular: normal rate, regular rhythm Respiratory/Chest: decreased breath sounds Abdomen: non tender, soft Extremities: non-tender Edema: no edema noted Arm (L), no edema noted Arm (R), no edema noted Leg (L), no edema noted Leg (R), no edema noted Pedal (L), no edema noted Pedal (R), no edema noted Generalized Neurologic: alert, oriented x 3 Skin: warm/dry Orlando Oglesby December 17, 2018 12:35
[2018-12-17 12:45] LABS: BASOPHILS % (AUTO) 1.2 % (0.0-2.0); EOSINOPHILS % (AUTO) 2.4 % (0.0-3.0); HEMATOCRIT 28.9 % (42.0-52.0); HEMOGLOBIN 9.1 G/DL (14.2-18.0); LYMPHOCYTES % (AUTO) 39.2 % (20.0-45.0); MEAN CORPUSCULAR VOLUME 81 FL (80-99); MONOCYTES % (AUTO) 7.2 % (1.0-10.0); NEUTROPHILS % (AUTO) 49.9 % (45.0-75.0); PLATELET COUNT 450 K/UL (150-450); RED BLOOD COUNT 3.56 M/UL (4.70-6.10); RED CELL DISTRIBUTION WIDTH 17.9 % (11.6-14.8); WHITE BLOOD COUNT 9.8 K/UL (4.8-10.8)
[2018-12-17 12:48] LABS: ANION GAP 6 mmol/L (5-15); BLOOD UREA NITROGEN 5 mg/dL (7-18); CALCIUM 8.7 MG/DL (8.5-10.1); CARBON DIOXIDE 29 MMOL/L (21-32); CHLORIDE 102 MMOL/L (98-107); CREATININE 0.6 MG/DL (0.55-1.30); POTASSIUM 3.5 MMOL/L (3.5-5.1); SODIUM 137 MMOL/L (136-145)
[2018-12-17 15:50] VITALS: BP 142/66
--- NOTE | 2018-12-17 17:13 | Internal Med Progress Note ---
Subjective Date of Service: December 17, 2018 Physician Name Rubalcava,Edilson Attending Physician Jersey Bearden MD Current Medications Medications (Trade) Dose Ordered Sig/Arianne Route PRN Reason Start Time Stop Time Status Last Admin Dose Admin Acetaminophen (Tylenol) 650 mg Q4H PRN ORAL fever 12/12/18 13:45 01/11/19 13:44 Chlorhexidine Gluconate (Jihan-Hex 2%) 1 applic DAILY@2000 TOPIC 12/13/18 20:00 01/12/19 19:59 12/16/18 20:38 Dextrose (Dextrose 50%) 25 ml Q30M PRN IV Hypoglycemia 12/12/18 13:45 01/11/19 13:38 Dextrose (Dextrose 50%) 50 ml Q30M PRN IV hypoglycemia 12/12/18 13:45 01/11/19 13:44 Diphenhydramine HCl (Benadryl) 25 mg Q6H PRN IVP Itching 12/14/18 11:45 01/13/19 11:44 12/17/18 10:52 Heparin Sodium (Porcine) (Heparin 5000 units/ml) 5,000 units EVERY 12 HOURS SUBQ 12/12/18 21:00 01/11/19 20:59 12/16/18 22:13 Hydromorphone HCl (Dilaudid) 2 mg Q3H PRN IV pain 4-6 12/12/18 13:45 12/19/18 13:44 12/17/18 01:07 Hydromorphone HCl (Dilaudid) 3 mg Q3H PRN IVP For Pain 7-10 12/12/18 13:45 12/19/18 13:44 12/17/18 14:52 Hydroxyurea (Hydrea) 1,500 mg DAILY ORAL 12/13/18 09:00 12/18/18 08:59 12/17/18 08:58 Linezolid (Zyvox) 600 mg EVERY 12 HOURS ORAL 12/15/18 21:00 12/20/18 20:59 12/17/18 08:58 Lorazepam (Ativan 2mg/ml 1ml) 0.5 mg Q4H PRN IV For Anxiety 12/12/18 13:45 12/19/18 13:44 Ondansetron HCl (Zofran) 4 mg Q6H PRN IVP Nausea & Vomiting 12/12/18 13:45 01/11/19 13:44 Oxycodone HCl (OxyCONTIN) 30 mg THREE TIMES A DAY ORAL 12/16/18 09:00 12/19/18 20:59 12/17/18 12:49 Polyethylene Glycol (Miralax) 17 gm HSPRN PRN ORAL Constipation 12/12/18 13:45 01/11/19 13:44 Sodium Chloride 1,000 ml @ 150 mls/hr Q6H40M IV 12/13/18 18:45 01/12/19 18:44 12/17/18 15:48 Zolpidem Tartrate (Ambien) 5 mg HSPRN PRN ORAL Insomnia 12/12/18 13:45 12/19/18 13:44 Allergies: Coded Allergies: CAPSAICIN (Verified Allergy, Unknown, 11/23/18) CEFTRIAXONE (Verified Allergy, Unknown, 11/23/18) Uncoded Allergies: CONTRAST (Adverse Reaction, Severe, Rash, 06/23/16) RADIOCONTRAST - RASH, ITCHING ROS Limited/Unobtainable: No Constitutional: Reports: no symptoms HEENT: Reports: no symptoms Cardiovascular: Reports: no symptoms Respiratory: Reports: no symptoms Gastrointestinal/Abdominal: Reports: no symptoms Genitourinary: Reports: no symptoms Neurologic/Psychiatric: Reports: no symptoms Subjective 23 YO M with sicke cell dis. Admitted with sickle cell Crisis. Cover for Int Med-Dr Bearden. C/O generalized pain. Objective Last Vital Signs Date Time Temp Pulse Resp B/P (MAP) Pulse Ox O2 Delivery O2 Flow Rate FiO2 12/17/18 15:50 98.2 59 20 142/66 (91) 95 12/17/18 09:00 Room Air Laboratory Tests Test 12/17/18 12:30 White Blood Count 9.8 K/UL (4.8-10.8) Red Blood Count 3.56 M/UL (4.70-6.10) L Hemoglobin 9.1 G/DL (14.2-18.0) L Hematocrit 28.9 % (42.0-52.0) L Mean Corpuscular Volume 81 FL (80-99) Mean Corpuscular Hemoglobin 25.6 PG (27.0-31.0) L Mean Corpuscular Hemoglobin Concent 31.4 G/DL (32.0-36.0) L Red Cell Distribution Width 17.9 % (11.6-14.8) H Platelet Count 450 K/UL (150-450) Mean Platelet Volume 7.1 FL (6.5-10.1) Neutrophils (%) (Auto) 49.9 % (45.0-75.0) Lymphocytes (%) (Auto) 39.2 % (20.0-45.0) Monocytes (%) (Auto) 7.2 % (1.0-10.0) Eosinophils (%) (Auto) 2.4 % (0.0-3.0) Basophils (%) (Auto) 1.2 % (0.0-2.0) Sodium Level 137 MMOL/L (136-145) Potassium Level 3.5 MMOL/L (3.5-5.1) Chloride Level 102 MMOL/L (98-107) Carbon Dioxide Level 29 MMOL/L (21-32) Anion Gap 6 mmol/L (5-15) Blood Urea Nitrogen 5 mg/dL (7-18) L Creatinine 0.6 MG/DL (0.55-1.30) Estimat Glomerular Filtration Rate > 60 mL/min (>60) Glucose Level 140 MG/DL (74-106) H Calcium Level 8.7 MG/DL (8.5-10.1) Intake and Output 12/16/18 12/17/18 19:00 07:00 Intake Total 2010 ml 550 ml Output Total 1000 ml 1000 ml Balance 1010 ml -450 ml Intake Oral 960 ml 250 ml IV Total 1050 ml 300 ml Output Urine Total 1000 ml 1000 ml # Voids 2 2 Objective PHYSICAL EXAMINATION: GENERAL: The patient is a well-developed and well-nourished slightly obese, male, in no apparent distress. HEENT: Eyes, pupils are equal and responsive to light and accommodation. Extraocular movements are intact. NECK: Supple without lymphadenopathy. CHEST: Lungs are clear to auscultation bilaterally without wheezes or rales. CARDIOVASCULAR: Regular rhythm and rate. S1 and S2 are normal without murmurs, rubs, or gallops. ABDOMEN: Soft, nontender, and nondistended. Positive bowel sounds. No evidence of hepatosplenomegaly. Currently, no rebound or guarding noted. EXTREMITIES: Negative for clubbing, cyanosis, or edema. RECTAL/GENITAL: Refused. NEUROLOGIC: Cranial nerves II through XII are grossly intact without focal deficits. Motor strength is 5/5 bilaterally. Deep tendon reflexes are 2+ plantar. Assessment/Plan Assessment/Plan ASSESSMENT: This is a 23-year-old male. 1. Sickle cell crisis. 2. Sickle cell disease. 3. Asthma. 4. Avascular necrosis of the left hip. 5. Sepsis-Coag neg staph TREATMENT: 1. Sickle cell crisis/sickle cell disease. Continue intravenous Dilaudidandlong-acting OxyContin per pain management 2. Asthma. Continue Advair as above. A Pulmonary consultation has been obtained with Dr. Ranjith Caicedo. 3. Avascular necrosis of the left hip. 4. Leukocytosis -secondary to sickle cell crisis 5. Elevated liver function tests. 6. Pain management consult with Dr Tucker 7. Continue linezolid per ID 8. Port-a-cath removal by Int Radiol Edilson Rubalcava MD December 17, 2018 17:13
--- NOTE | 2018-12-17 19:32 | NUR ---
HAND-OFF: Report given to EDU Loja.
--- NOTE | 2018-12-17 19:45 | NUR ---
NURSE NOTES: Pt sitting in bed w/bed in lowest position and call light within reach. Pt A&Ox4, VSS, and in no apparent distress. IV site intact/asymptomatic w/IVF infusing & port-a-cath S/L'd. Pt states he will not sign consent to have port-a-cath removed until tomorrow and is refusing to do so at this time. Will continue to monitor.
[2018-12-17 20:00] VITALS: BP 128/61
[2018-12-17] MEDS: Dyna-Hex 2% Top Sol 2oz TOPIC SCH (20:19)
--- NOTE | 2018-12-17 23:00 | NUR ---
HAND-OFF: Report given to EDU Lane.
--- NOTE | 2018-12-17 23:15 | NUR ---
NURSE NOTES: Received pt aaox4, no acute distress at this time. IVF infusing on RFA. Call light in reach, will continue POC.
--- NOTE | 2018-12-18 00:05 | NUR ---
NURSE NOTES: One culture blood order (peripheral) was autocancelled by system. Spoke with mykel from lab and she stated that culture blood order still active on lab system and will draw it with AM labs. Attempted to reenter order in system, unable to. RFS for lab entered. Will f/u.
[2018-12-18 00:45] VITALS: BP 125/65
[2018-12-18] MEDS: DiphenhydrAMINE 50mg/ml Inj IVP PRN ×4 (01:17→22:09)
[2018-12-18 04:00] VITALS: BP 126/55
--- NOTE | 2018-12-18 04:50 | NUR ---
NURSE NOTES: Blood culture x1set drawn from port and sent to lab.
--- NOTE | 2018-12-18 07:30 | NUR ---
HAND-OFF: Report given to Sharif SORENSEN.
[2018-12-18 08:00] VITALS: BP 119/58
--- NOTE | 2018-12-18 08:00 | NUR ---
NURSE NOTES: Received report from Domingo SORENSEN, pt a/a/o x4 laying in bed with no signs of distress or other issues at this time. pt c/o of pain 04/17, RN will medicate as ordered by . IV on the right FA gauge #24 running 1/2 NS @100ml/hr. pt also has a right chest permacath per report pt might need to removed since he is positive for Staph (Blood cx). call light within reach. bed in lowest position. side rales up x2. I will f/u as needed.
--- NOTE | 2018-12-18 08:47 | General Progress Note ---
Assessment/Plan Assessment/Plan: (1) Sickle cell disease (2) Sickle cell crisis (3) Intractable pain Pt will be continued on OxyContin and Dilaudid. D/w Dr. Tucker and he concurred Subjective Date patient seen: December 18, 2018 Time patient seen: 07:30 - am Allergies: Coded Allergies: CAPSAICIN (Verified Allergy, Unknown, 11/23/18) CEFTRIAXONE (Verified Allergy, Unknown, 11/23/18) Uncoded Allergies: CONTRAST (Adverse Reaction, Severe, Rash, 06/23/16) RADIOCONTRAST - RASH, ITCHING Subjective Constitutional: Reports: chills, weakness HEENT: Reports: no symptoms Cardiovascular: Reports: no symptoms Respiratory: Reports: no symptoms Gastrointestinal/Abdominal: Reports: no symptoms Genitourinary: Reports: no symptoms Neurologic/Psychiatric: Reports: tingling, weakness Endocrine: Reports: no symptoms Hematologic/Lymphatic: Reports: no symptoms Subjective Patient has continued c/o severe pain getting the OxyContin as scheduled and continues to use the Dilaudid for breakthrough pain. The pain has been tolerated on the medications. He has no new complaints at this time. Objective Last 24 Hour Vital Signs Date Time Temp Pulse Resp B/P (MAP) Pulse Ox O2 Delivery O2 Flow Rate FiO2 12/18/18 04:56 98.8 12/18/18 04:00 98.1 56 20 126/55 (78) 96 12/18/18 00:45 98.8 61 20 125/65 (85) 95 12/17/18 21:00 Room Air 12/17/18 20:00 99.4 64 20 128/61 (83) 97 12/17/18 15:50 98.2 59 20 142/66 (91) 95 12/17/18 11:50 97.5 57 19 127/60 (82) 98 12/17/18 09:00 Room Air Intake and Output 12/17/18 12/18/18 19:00 07:00 Intake Total 440 ml 950 ml Output Total 2100 ml 1300 ml Balance -1660 ml -350 ml Intake Oral 440 ml 450 ml IV Total 500 ml Output Urine Total 2100 ml 1300 ml Laboratory Tests 12/17/18 12:30: White Blood Count 9.8, Red Blood Count 3.56L, Hemoglobin 9.1L, Hematocrit 28.9L , Mean Corpuscular Volume 81, Mean Corpuscular Hemoglobin 25.6L, Mean Corpuscular Hemoglobin Concent 31.4L, Red Cell Distribution Width 17.9H, Platelet Count 450, Mean Platelet Volume 7.1, Neutrophils (%) (Auto) 49.9, Lymphocytes (%) (Auto) 39.2, Monocytes (%) (Auto) 7.2, Eosinophils (%) (Auto) 2.4, Basophils (%) (Auto) 1.2, Sodium Level 137, Potassium Level 3.5, Chloride Level 102, Carbon Dioxide Level 29, Anion Gap 6, Blood Urea Nitrogen 5L, Creatinine 0.6, Estimat Glomerular Filtration Rate > 60, Glucose Level 140H, Calcium Level 8.7 Height (Feet): 5 Height (Inches): 6.00 Weight (Pounds): 250 Objective General Appearance: no apparent distress, alert EENT: PERRL/EOMI, normal ENT inspection Neck: non-tender, normal alignment Cardiovascular: normal rate, regular rhythm Respiratory/Chest: decreased breath sounds Abdomen: non tender, soft Extremities: non-tender Edema: no edema noted Arm (L), no edema noted Arm (R), no edema noted Leg (L), no edema noted Leg (R), no edema noted Pedal (L), no edema noted Pedal (R), no edema noted Generalized Neurologic: alert, oriented x 3 Skin: warm/dry Orlando Oglesby December 18, 2018 08:47
[2018-12-18] MEDS: Heparin 5000 units/ml inj SUBQ SCH ×2 (09:00→21:00)
--- NOTE | 2018-12-18 09:57 | NUR ---
CASE MANAGEMENT:REVIEW 12/18/18 SI:SICKLE CELL CRISIS. STAPHYLOCOCCUS EPIDERMIDIS BACTEREMIA 98.5 53 20 119/58 98% ON RA IS: IVF@100/HR ZYVOX PO Q12 OXYCONTIN PO TID HEPARIN SQ Q12 IV DILAUDID Q3HRS : TO MED/SURG 3 [facility] DCP: FROM HOME PLAN: BLOOD CX
--- NOTE | 2018-12-18 10:05 | NUR ---
*-* INSURANCE *-* UPDATED CLINICALS AND REVIEWS HAVE BEEN FAXED TO: [facility]: HAYLIE P- [phone] X [phone] f- [phone]
[2018-12-18] MEDS: oxyCONTIN 10mg tab ORAL SCH ×3 (10:06→21:01)
--- NOTE | 2018-12-18 11:29 | Physician Query ---
--------- THIS DOCUMENT IS A PERMANENT PART OF THE MEDICAL RECORD --------- PLEASE COMPLETE DOCUMENT BEFORE SIGNING Dear Dr. Emeka Solorzano Date: 12/18/18 Rocket Engine Mechanic/CDS Name: Milagro Hughes Exercise your independent professional judgment when responding to the query. Questions asked do not imply a particular answer is desired or expected. We greatly appreciate your clarification on this issue. CLINICAL DOCUMENTATION STATES: 23 yo male presenting in sickle cell crisis 12/15 ID note: (2) Leukocytosis Assessment & Plan: suspect due to bacteremia and Port A infection , await blood culture, recommend Brenda A cath removal, continue oral zyvox pending IV access 12/16 IM note: Sepsis-Coag neg staph 12/12 labs/vitals: WBC 19.1, Tmax 98.8, HR 86, RR 20; 12/13 BCx: coag neg staph Treatment: IV linezolid Clarification is needed for one (or more) of the following conditions in order to accurately assign the "present on admission' indicator. Please choose the answer that best indicates whether the associated condition was present at the time of the order for inpatient admission. Thank you. Diagnoses in question: Sepsis and port A cath infection Was the Bacteremia due to port A cath infection Present on admission? [] YES [] NO [ ] Clinically Undeterminable Was the Sepsis Present on admission? [] YES [] NO [] Clinically Undeterminable Please also document in your Progress Notes and/or Discharge Summary and indicate if the condition was present on admission. Signature Date MJeromeDJerome PHILLIPD
[2018-12-18 12:00] VITALS: BP 118/57
--- NOTE | 2018-12-18 12:36 | Internal Med Progress Note ---
Subjective Date of Service: December 18, 2018 Physician Name Edilson Rubalcava Attending Physician Jersey Bearden MD Current Medications Medications (Trade) Dose Ordered Sig/Arianne Route PRN Reason Start Time Stop Time Status Last Admin Dose Admin Acetaminophen (Tylenol) 650 mg Q4H PRN ORAL fever 12/12/18 13:45 01/11/19 13:44 Chlorhexidine Gluconate (Jihan-Hex 2%) 1 applic DAILY@1999 TOPIC 12/13/18 20:00 01/12/19 19:59 12/17/18 20:19 Dextrose (Dextrose 50%) 25 ml Q30M PRN IV Hypoglycemia 12/12/18 13:45 01/11/19 13:38 Dextrose (Dextrose 50%) 50 ml Q30M PRN IV hypoglycemia 12/12/18 13:45 01/11/19 13:44 Diphenhydramine HCl (Benadryl) 25 mg Q6H PRN IVP Itching 12/14/18 11:45 01/13/19 11:44 12/18/18 08:41 Heparin Sodium (Porcine) (Heparin 5000 units/ml) 5,000 units EVERY 12 HOURS SUBQ 12/12/18 21:00 01/11/19 20:59 12/17/18 20:20 Hydromorphone HCl (Dilaudid) 2 mg Q3H PRN IV pain 4-6 12/12/18 13:45 12/19/18 13:44 12/17/18 01:07 Hydromorphone HCl (Dilaudid) 3 mg Q3H PRN IVP For Pain 7-10 12/12/18 13:45 12/19/18 13:44 12/18/18 08:42 Linezolid (Zyvox) 600 mg EVERY 12 HOURS ORAL 12/15/18 21:00 12/20/18 20:59 12/18/18 08:41 Lorazepam (Ativan 2mg/ml 1ml) 0.5 mg Q4H PRN IV For Anxiety 12/12/18 13:45 12/19/18 13:44 Ondansetron HCl (Zofran) 4 mg Q6H PRN IVP Nausea & Vomiting 12/12/18 13:45 01/11/19 13:44 Oxycodone HCl (OxyCONTIN) 30 mg TID@0900,1300,2100 ORAL 12/18/18 10:00 12/25/18 09:59 12/18/18 10:06 Polyethylene Glycol (Miralax) 17 gm HSPRN PRN ORAL Constipation 12/12/18 13:45 01/11/19 13:44 Sodium Chloride 1,000 ml @ 100 mls/hr Q10H IV 12/18/18 18:45 01/12/19 18:44 12/18/18 01:17 Zolpidem Tartrate (Ambien) 5 mg HSPRN PRN ORAL Insomnia 12/12/18 13:45 12/19/18 13:44 Allergies: Coded Allergies: CAPSAICIN (Verified Allergy, Unknown, 11/23/18) CEFTRIAXONE (Verified Allergy, Unknown, 11/23/18) Uncoded Allergies: CONTRAST (Adverse Reaction, Severe, Rash, 06/23/16) RADIOCONTRAST - RASH, ITCHING ROS Limited/Unobtainable: No Constitutional: Reports: no symptoms HEENT: Reports: no symptoms Cardiovascular: Reports: no symptoms Respiratory: Reports: no symptoms Gastrointestinal/Abdominal: Reports: no symptoms Genitourinary: Reports: no symptoms Neurologic/Psychiatric: Reports: no symptoms Subjective 23 YO M with sicke cell dis. Admitted with sickle cell Crisis. Now line sepsis. Cover for Int Med-Dr Bearden. C/O generalized pain. Objective Last Vital Signs Date Time Temp Pulse Resp B/P (MAP) Pulse Ox O2 Delivery O2 Flow Rate FiO2 12/18/18 10:36 98.8 12/18/18 09:00 Room Air 12/18/18 08:00 53 20 119/58 (78) 98 Intake and Output 12/17/18 12/18/18 19:00 07:00 Intake Total 440 ml 950 ml Output Total 2100 ml 1300 ml Balance -1660 ml -350 ml Intake Oral 440 ml 450 ml IV Total 500 ml Output Urine Total 2100 ml 1300 ml Objective PHYSICAL EXAMINATION: GENERAL: The patient is a well-developed and well-nourished slightly obese, male, in no apparent distress. HEENT: Eyes, pupils are equal and responsive to light and accommodation. Extraocular movements are intact. NECK: Supple without lymphadenopathy. CHEST: Lungs are clear to auscultation bilaterally without wheezes or rales. CARDIOVASCULAR: Regular rhythm and rate. S1 and S2 are normal without murmurs, rubs, or gallops. ABDOMEN: Soft, nontender, and nondistended. Positive bowel sounds. No evidence of hepatosplenomegaly. Currently, no rebound or guarding noted. EXTREMITIES: Negative for clubbing, cyanosis, or edema. RECTAL/GENITAL: Refused. NEUROLOGIC: Cranial nerves II through XII are grossly intact without focal deficits. Motor strength is 5/5 bilaterally. Deep tendon reflexes are 2+ plantar. Assessment/Plan Assessment/Plan ASSESSMENT: This is a 23-year-old male. 1. Sickle cell crisis. 2. Sickle cell disease. 3. Asthma. 4. Avascular necrosis of the left hip. 5. Sepsis-Coag neg staph TREATMENT: 1. Sickle cell crisis/sickle cell disease. Continue intravenous Dilaudidandlong-acting OxyContin per pain management 2. Asthma. Continue Advair as above. A Pulmonary consultation has been obtained with Dr. Ranjith Caicedo. 3. Avascular necrosis of the left hip. 4. Leukocytosis -secondary to sickle cell crisis 5. Elevated liver function tests. 6. Pain management consult with Dr Tucker 7. Continue linezolid per ID 8. Port-a-cath removal by Int Radiol Edilson Rubalcava MD December 18, 2018 12:36
[2018-12-18] MEDS ORDERED: oxyCONTIN 10mg tab ORAL SCH (13:00)
[2018-12-18] MEDS ORDERED: 1/2 NS 1000ml IV ONE (15:51)
[2018-12-18 16:00] VITALS: BP 101/71
--- NOTE | 2018-12-18 17:21 | Infectious Diseases Prog Note ---
Assessment/Plan Problems: (1) Port-A-Cath in place Assessment & Plan: infected with coag negative staph grow out of 4 bottles , recommend removal as soon as possible to eliminate source of bacteremia, but he refused , will continue zyvox orally for two weeks . D/W patient and nurse. patient refused to remove port A cath , he is fully aware of the risks . repeat blood culture by the end of the antibiotics treatment (2) Leukocytosis Assessment & Plan: suspect due to bacteremia and Port A infection , confirmed by blood culture which was taken mainly from the port , recommend Brenda A cath removal, continue oral zyvox for tow weeks . if continues to refuse port A cath removal , recommend to treat with antibiotics for two weeks and repeat blood culture in two weeks to confirm resolution of the bacteremia. (3) Fever Assessment & Plan: recurrent suspect due to bacteremia, continue antibiotics and tylenol (4) Sickle cell crisis Assessment & Plan: continue pain management, blood transfusion as needed, and hydration, follow up with hematology Subjective Constitutional: Reports: no symptoms HEENT: Reports: no symptoms Respiratory: Reports: no symptoms Breasts: Reports: no symptoms Cardiovascular: Reports: no symptoms Gastrointestinal/Abdominal: Reports: no symptoms Genitourinary: Reports: no symptoms Neurologic: Reports: no symptoms Psychiatric: Reports: no symptoms Skin: Reports: no symptoms Endocrine: Reports: no symptoms Hematologic: Reports: no symptoms Musculoskeletal: Reports: no symptoms Allergies: Coded Allergies: CAPSAICIN (Verified Allergy, Unknown, 11/23/18) CEFTRIAXONE (Verified Allergy, Unknown, 11/23/18) Uncoded Allergies: CONTRAST (Adverse Reaction, Severe, Rash, 06/23/16) RADIOCONTRAST - RASH, ITCHING Subjective He was comfortable, up in bed, still resistant to have the Port A cath removed , I explained to him the risks which include sepsis, shock, metastatic infection , ETC.. . he is interested to be treated with antibiotics only at this time Objective Vital Signs Last 24 Hour Vital Signs Date Time Temp Pulse Resp B/P (MAP) Pulse Ox O2 Delivery O2 Flow Rate FiO2 12/18/18 13:21 98.8 12/18/18 12:00 98.4 51 20 118/57 (77) 98 12/18/18 09:12 98.8 12/18/18 09:00 Room Air 12/18/18 08:00 98.5 53 20 119/58 (78) 98 12/18/18 04:00 98.1 56 20 126/55 (78) 96 12/18/18 00:45 98.8 61 20 125/65 (85) 95 12/17/18 21:00 Room Air 12/17/18 20:00 99.4 64 20 128/61 (83) 97 Height (Feet): 5 Height (Inches): 6.00 Weight (Pounds): 250 General Appearance: WD/WN, no acute distress HEENT: normocephalic, atraumatic, anicteric, mucous membranes moist, PERRL, EOMI, pharynx normal, supple, no JVD Respiratory/Chest: chest wall non-tender, lungs clear, normal breath sounds, no respiratory distress, no accessory muscle use, respiratory distress Cardiovascular: normal peripheral pulses, normal rate, regular rhythm, no gallop/murmur, no JVD Abdomen: normal bowel sounds, soft, non tender, no organomegaly, non distended , no mass, no scars Extremities: no cyanosis, no clubbing Skin: no rash, no lesions, no ulcers Neurologic/Psychiatric: alert, oriented x 3, responsive Lymphatic: no neck adenopathy, no groin adenopathy Musculoskeletal: normal muscle bulk, no effusion Current Medications Medications (Trade) Dose Ordered Sig/Arianne Route PRN Reason Start Time Stop Time Status Last Admin Dose Admin Acetaminophen (Tylenol) 650 mg Q4H PRN ORAL fever 12/12/18 13:45 01/11/19 13:44 Chlorhexidine Gluconate (Jihan-Hex 2%) 1 applic DAILY@2000 TOPIC 12/13/18 20:00 01/12/19 19:59 12/17/18 20:19 Dextrose (Dextrose 50%) 25 ml Q30M PRN IV Hypoglycemia 12/12/18 13:45 01/11/19 13:38 Dextrose (Dextrose 50%) 50 ml Q30M PRN IV hypoglycemia 12/12/18 13:45 01/11/19 13:44 Diphenhydramine HCl (Benadryl) 25 mg Q6H PRN IVP Itching 12/14/18 11:45 01/13/19 11:44 12/18/18 14:55 Heparin Sodium (Porcine) (Heparin 5000 units/ml) 5,000 units EVERY 12 HOURS SUBQ 12/12/18 21:00 01/11/19 20:59 12/17/18 20:20 Hydromorphone HCl (Dilaudid) 2 mg Q3H PRN IV pain 4-6 12/12/18 13:45 12/19/18 13:44 12/17/18 01:07 Hydromorphone HCl (Dilaudid) 3 mg Q3H PRN IVP For Pain 7-12/12/18 13:45 12/19/18 13:44 12/18/18 14:56 Linezolid (Zyvox) 600 mg EVERY 12 HOURS ORAL 12/15/18 21:00 12/20/18 20:59 12/18/18 08:41 Lorazepam (Ativan 2mg/ml 1ml) 0.5 mg Q4H PRN IV For Anxiety 12/12/18 13:45 12/19/18 13:44 Ondansetron HCl (Zofran) 4 mg Q6H PRN IVP Nausea & Vomiting 12/12/18 13:45 01/11/19 13:44 Oxycodone HCl (OxyCONTIN) 30 mg TID@0900,1300,2100 ORAL 12/18/18 10:00 12/25/18 09:59 12/18/18 12:51 Polyethylene Glycol (Miralax) 17 gm HSPRN PRN ORAL Constipation 12/12/18 13:45 01/11/19 13:44 Sodium Chloride 1,000 ml @ 100 mls/hr Q10H IV 12/18/18 18:45 01/12/19 18:44 12/18/18 15:03 Zolpidem Tartrate (Ambien) 5 mg HSPRN PRN ORAL Insomnia 12/12/18 13:45 12/19/18 13:44 Emeka Solorzano M.D. December 18, 2018 17:21
--- NOTE | 2018-12-18 19:30 | NUR ---
NURSE NOTES: Received report from EDU Olguin and rounds made. Received patient in bed, AOX4, pain level 8/10, pain medication not yet due. IV R FA #24 patent and intact. IV fluid infusing as ordered. R chest with michelet cath c/d/i, no distress noted. Bed in lowest position and locked, side rails up x 2, call light within reach. Will continue to monitor.
--- NOTE | 2018-12-18 19:48 | NUR ---
HAND-OFF: Report given to Luis Ross pt instable condition.
[2018-12-18 20:00] VITALS: BP 119/68
[2018-12-18] MEDS: Dyna-Hex 2% Top Sol 2oz TOPIC SCH (20:28)
[2018-12-19] VITALS: BP 107/86
[2018-12-19 04:00] VITALS: BP 116/61
[2018-12-19] MEDS: DiphenhydrAMINE 50mg/ml Inj IVP PRN ×4 (04:11→23:38)
[2018-12-19 06:37] LABS: BASOPHILS % (AUTO) 1.6 % (0.0-2.0); EOSINOPHILS % (AUTO) 2.3 % (0.0-3.0); HEMOGLOBIN 8.6 G/DL (14.2-18.0); LYMPHOCYTES % (AUTO) 44.9 % (20.0-45.0); MEAN CORPUSCULAR VOLUME 80 FL (80-99); MONOCYTES % (AUTO) 8.1 % (1.0-10.0); NEUTROPHILS % (AUTO) 43.1 % (45.0-75.0); PLATELET COUNT 412 K/UL (150-450); RED BLOOD COUNT 3.25 M/UL (4.70-6.10); RED CELL DISTRIBUTION WIDTH 18.2 % (11.6-14.8); WHITE BLOOD COUNT 12.3 K/UL (4.8-10.8)
[2018-12-19 06:39] LABS: ANION GAP 8 mmol/L (5-15); CALCIUM 8.5 MG/DL (8.5-10.1); CARBON DIOXIDE 30 MMOL/L (21-32); CHLORIDE 102 MMOL/L (98-107); CREATININE 0.6 MG/DL (0.55-1.30); POTASSIUM 3.9 MMOL/L (3.5-5.1); SODIUM 140 MMOL/L (136-145)
[2018-12-19 06:45] LABS: BLOOD UREA NITROGEN 6 mg/dL (7-18)
--- NOTE | 2018-12-19 07:25 | NUR ---
HAND-OFF: Report given to EDU Olguin. Pt in stable condition.
--- NOTE | 2018-12-19 07:50 | NUR ---
NURSE NOTES: Received report from Luis Ross pt a/a/o x4 laying in bed, eating breakfast with no signs of distress or other issues at this time. Iv on the right FA gauge #24 1/2NS@100ml/hr. pt stated that is having diarrhea, however rn shift mgr nurse it was not able to witness it. RN will collect sample if diarrhea continues. call light within reach. bed in lowest position. side rales up x2. I will f/u as needed.
[2018-12-19 08:00] VITALS: BP 104/55
--- NOTE | 2018-12-19 08:55 | General Progress Note ---
Assessment/Plan Assessment/Plan: (1) Sickle cell disease (2) Sickle cell crisis (3) Intractable pain Pt will be continued on OxyContin and Dilaudid. D/w Dr. Tucker and he concurred Subjective Date patient seen: December 19, 2018 Time patient seen: 07:15 - am Allergies: Coded Allergies: CAPSAICIN (Verified Allergy, Unknown, 11/23/18) CEFTRIAXONE (Verified Allergy, Unknown, 11/23/18) Uncoded Allergies: CONTRAST (Adverse Reaction, Severe, Rash, 06/23/16) RADIOCONTRAST - RASH, ITCHING Subjective Constitutional: Reports: chills, weakness HEENT: Reports: no symptoms Cardiovascular: Reports: no symptoms Respiratory: Reports: no symptoms Gastrointestinal/Abdominal: Reports: no symptoms Genitourinary: Reports: no symptoms Neurologic/Psychiatric: Reports: tingling, weakness Endocrine: Reports: no symptoms Hematologic/Lymphatic: Reports: no symptoms Subjective Patient is in bed pain is severe however it has been tolerated on the OxyContin and Dilaudid. Having OxyContin as scheduled and 7 doses of Dilaudid in the last 24hrs. Objective Last 24 Hour Vital Signs Date Time Temp Pulse Resp B/P (MAP) Pulse Ox O2 Delivery O2 Flow Rate FiO2 12/19/18 04:00 98.4 57 18 116/61 (79) 97 12/19/18 00:00 98.7 68 20 107/86 (93) 96 12/18/18 21:00 Room Air 12/18/18 20:00 99.3 93 20 119/68 (85) 96 12/18/18 19:17 99.1 12/18/18 16:00 99.1 70 20 101/71 (81) 96 12/18/18 13:21 98.8 12/18/18 12:00 98.4 51 20 118/57 (77) 98 12/18/18 09:00 Room Air Intake and Output 12/18/18 12/19/18 19:00 07:00 Intake Total 1900 ml 1340 ml Balance 1900 ml 1340 ml Intake Oral 1000 ml 240 ml IV Total 900 ml 1100 ml # Voids 2 Laboratory Tests 12/19/18 05:15: White Blood Count 12.3H, Red Blood Count 3.25L, Hemoglobin 8.6L, Hematocrit 26.0L, Mean Corpuscular Volume 80, Mean Corpuscular Hemoglobin 26.4L, Mean Corpuscular Hemoglobin Concent 32.9, Red Cell Distribution Width 18.2H, Platelet Count 412, Mean Platelet Volume 6.6, Neutrophils (%) (Auto) 43.1L, Lymphocytes (%) (Auto) 44.9, Monocytes (%) (Auto) 8.1, Eosinophils (%) (Auto) 2.3, Basophils (%) (Auto) 1.6, Sodium Level 140, Potassium Level 3.9, Chloride Level 102, Carbon Dioxide Level 30, Anion Gap 8, Blood Urea Nitrogen 6L, Creatinine 0.6, Estimat Glomerular Filtration Rate > 60, Glucose Level 88, Calcium Level 8.5 Height (Feet): 5 Height (Inches): 6.00 Weight (Pounds): 250 Objective General Appearance: no apparent distress, alert EENT: PERRL/EOMI, normal ENT inspection Neck: non-tender, normal alignment Cardiovascular: normal rate, regular rhythm Respiratory/Chest: decreased breath sounds Abdomen: non tender, soft Extremities: non-tender Edema: no edema noted Arm (L), no edema noted Arm (R), no edema noted Leg (L), no edema noted Leg (R), no edema noted Pedal (L), no edema noted Pedal (R), no edema noted Generalized Neurologic: alert, oriented x 3 Skin: warm/dry Orlando Oglesby December 19, 2018 08:55
[2018-12-19] MEDS: Heparin 5000 units/ml inj SUBQ SCH ×2 (09:00→20:33)
[2018-12-19] MEDS: oxyCONTIN 10mg tab ORAL SCH ×3 (09:02→21:40)
--- NOTE | 2018-12-19 10:58 | NUR ---
*-* INSURANCE *-* UPDATED CLINICALS HAVE BEEN FAXED TO: [facility]: HAYLIE P- [phone] F- [phone]
[2018-12-19 12:00] VITALS: BP 120/55
--- NOTE | 2018-12-19 14:40 | Infectious Diseases Prog Note ---
Assessment/Plan Problems: (1) Port-A-Cath in place Assessment & Plan: infected with staph epidermidis and coag negative staph , recommend removal to eliminate source of bacteremia, but he refused , will continue zyvox orally for two weeks . D/W patient and nurse. patient refused to remove port A cath , he is fully aware of the risks . repeat blood culture by the end of the antibiotics treatment (2) Leukocytosis Assessment & Plan: suspect due to bacteremia and Port A infection , confirmed by blood culture which was taken mainly from the port , recommend Brenda A cath removal, continue oral zyvox for tow weeks . if continues to refuse port A cath removal , recommend to treat with antibiotics for two weeks and repeat blood culture in two weeks to confirm resolution of the bacteremia. (3) Fever Assessment & Plan: recurrent suspect due to bacteremia, continue antibiotics and tylenol (4) Sickle cell crisis Assessment & Plan: continue pain management, blood transfusion as needed, and hydration, follow up with hematology Subjective Constitutional: Reports: no symptoms HEENT: Reports: no symptoms Respiratory: Reports: no symptoms Breasts: Reports: no symptoms Cardiovascular: Reports: no symptoms Gastrointestinal/Abdominal: Reports: no symptoms Genitourinary: Reports: no symptoms Neurologic: Reports: no symptoms Psychiatric: Reports: no symptoms Skin: Reports: no symptoms Endocrine: Reports: no symptoms Hematologic: Reports: no symptoms Musculoskeletal: Reports: pain Allergies: Coded Allergies: CAPSAICIN (Verified Allergy, Unknown, 11/23/18) CEFTRIAXONE (Verified Allergy, Unknown, 11/23/18) Uncoded Allergies: CONTRAST (Adverse Reaction, Severe, Rash, 06/23/16) RADIOCONTRAST - RASH, ITCHING Subjective He was comfortable, up in bed, still resistant to have the Port A cath removed , I explained to him the risks which include sepsis, shock, metastatic infection , ETC.. . he is interested to be treated with antibiotics only at this time Objective Vital Signs Last 24 Hour Vital Signs Date Time Temp Pulse Resp B/P (MAP) Pulse Ox O2 Delivery O2 Flow Rate FiO2 12/19/18 13:28 98.4 12/19/18 12:00 98.7 63 18 120/55 (76) 95 12/19/18 09:32 98.4 12/19/18 09:00 Room Air 12/19/18 08:00 98.5 61 19 104/55 (71) 94 12/19/18 04:00 98.4 57 18 116/61 (79) 97 12/19/18 00:00 98.7 68 20 107/86 (93) 96 12/18/18 21:00 Room Air 12/18/18 20:00 99.3 93 20 119/68 (85) 96 12/18/18 19:17 99.1 12/18/18 16:00 99.1 70 20 101/71 (81) 96 Height (Feet): 5 Height (Inches): 6.00 Weight (Pounds): 250 General Appearance: WD/WN, no acute distress HEENT: normocephalic, atraumatic, anicteric, mucous membranes moist, PERRL Respiratory/Chest: chest wall non-tender, lungs clear, normal breath sounds, no respiratory distress, no accessory muscle use Cardiovascular: normal peripheral pulses, normal rate, regular rhythm, no gallop/murmur, no JVD Abdomen: normal bowel sounds, soft, non tender, no organomegaly, non distended , no mass, no scars Genitourinary: normal external genitalia Extremities: no cyanosis, no clubbing Skin: no rash, no lesions, no ulcers Neurologic/Psychiatric: interpretive program coordinator II-XII 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, no motor/sensory deficits, alert, oriented x 3, responsive Lymphatic: no neck adenopathy, no groin adenopathy Musculoskeletal: normal muscle bulk, no effusion Microbiology Date/Time Source Procedure Growth Status 12/18/18 04:30 Blood Blood Culture - Preliminary NO GROWTH AFTER 24 HOURS Resulted Laboratory Tests Test 12/19/18 05:15 White Blood Count 12.3 K/UL (4.8-10.8) H Red Blood Count 3.25 M/UL (4.70-6.10) L Hemoglobin 8.6 G/DL (14.2-18.0) L Hematocrit 26.0 % (42.0-52.0) L Mean Corpuscular Volume 80 FL (80-99) Mean Corpuscular Hemoglobin 26.4 PG (27.0-31.0) L Mean Corpuscular Hemoglobin Concent 32.9 G/DL (32.0-36.0) Red Cell Distribution Width 18.2 % (11.6-14.8) H Platelet Count 412 K/UL (150-450) Mean Platelet Volume 6.6 FL (6.5-10.1) Neutrophils (%) (Auto) 43.1 % (45.0-75.0) L Lymphocytes (%) (Auto) 44.9 % (20.0-45.0) Monocytes (%) (Auto) 8.1 % (1.0-10.0) Eosinophils (%) (Auto) 2.3 % (0.0-3.0) Basophils (%) (Auto) 1.6 % (0.0-2.0) Sodium Level 140 MMOL/L (136-145) Potassium Level 3.9 MMOL/L (3.5-5.1) Chloride Level 102 MMOL/L (98-107) Carbon Dioxide Level 30 MMOL/L (21-32) Anion Gap 8 mmol/L (5-15) Blood Urea Nitrogen 6 mg/dL (7-18) L Creatinine 0.6 MG/DL (0.55-1.30) Estimat Glomerular Filtration Rate > 60 mL/min (>60) Glucose Level 88 MG/DL (74-106) Calcium Level 8.5 MG/DL (8.5-10.1) Current Medications Medications (Trade) Dose Ordered Sig/Arianne Route PRN Reason Start Time Stop Time Status Last Admin Dose Admin Acetaminophen (Tylenol) 650 mg Q4H PRN ORAL fever 12/12/18 13:45 01/11/19 13:44 Chlorhexidine Gluconate (Jihan-Hex 2%) 1 applic DAILY@2000 TOPIC 12/13/18 20:00 01/12/19 19:59 12/18/18 20:28 Dextrose (Dextrose 50%) 25 ml Q30M PRN IV Hypoglycemia 12/12/18 13:45 01/11/19 13:38 Dextrose (Dextrose 50%) 50 ml Q30M PRN IV hypoglycemia 12/12/18 13:45 01/11/19 13:44 Diphenhydramine HCl (Benadryl) 25 mg Q6H PRN IVP Itching 12/14/18 11:45 01/13/19 11:44 12/19/18 10:26 Heparin Sodium (Porcine) (Heparin 5000 units/ml) 5,000 units EVERY 12 HOURS SUBQ 12/12/18 21:00 01/11/19 20:59 12/17/18 20:20 Hydromorphone HCl (Dilaudid) 2 mg Q3H PRN IV pain 4-6 12/19/18 10:45 12/26/18 10:44 12/19/18 10:26 Hydromorphone HCl (Dilaudid) 3 mg Q3H PRN IVP For Pain 7-10 12/19/18 10:45 12/26/18 10:44 12/19/18 14:28 Linezolid (Zyvox) 600 mg EVERY 12 HOURS ORAL 12/15/18 21:00 12/20/18 20:59 12/19/18 09:02 Ondansetron HCl (Zofran) 4 mg Q6H PRN IVP Nausea & Vomiting 12/12/18 13:45 01/11/19 13:44 Oxycodone HCl (OxyCONTIN) 30 mg TID@0900,1300,2100 ORAL 12/18/18 10:00 12/25/18 09:59 12/19/18 12:58 Polyethylene Glycol (Miralax) 17 gm HSPRN PRN ORAL Constipation 12/12/18 13:45 01/11/19 13:44 Sodium Chloride 1,000 ml @ 100 mls/hr Q10H IV 12/18/18 18:45 01/12/19 18:44 12/19/18 10:38 Emeka Solorzano M.D. December 19, 2018 14:40
--- NOTE | 2018-12-19 15:16 | NUR ---
CASE MANAGEMENT:REVIEW 12/19/18 SI:SICKLE CELL CRISIS. STAPHYLOCOCCUS EPIDERMIDIS BACTEREMIA 98.7 63 18 120/55 95% ON RA WBC+12.3 IS: IVF@100/HR ZYVOX PO Q12 OXYCONTIN PO TID HEPARIN SQ Q12 IV DILAUDID Q3HRS : TO MED/SURG 3 [facility] DCP: FROM HOME PLAN: BLOOD CX REPEATED YESTERDAY PAIN MANAGEMENT IV FLUID HYDRATION
[2018-12-19 16:00] VITALS: BP 124/69
--- NOTE | 2018-12-19 17:56 | Internal Med Progress Note ---
Subjective Date of Service: December 19, 2018 Physician Name GiniEdilson Attending Physician Jersey Bearden MD Current Medications Medications (Trade) Dose Ordered Sig/Arianne Route PRN Reason Start Time Stop Time Status Last Admin Dose Admin Acetaminophen (Tylenol) 650 mg Q4H PRN ORAL fever 12/12/18 13:45 01/11/19 13:44 Chlorhexidine Gluconate (Jihan-Hex 2%) 1 applic DAILY@2000 TOPIC 12/13/18 20:00 01/12/19 19:59 12/18/18 20:28 Dextrose (Dextrose 50%) 25 ml Q30M PRN IV Hypoglycemia 12/12/18 13:45 01/11/19 13:38 Dextrose (Dextrose 50%) 50 ml Q30M PRN IV hypoglycemia 12/12/18 13:45 01/11/19 13:44 Diphenhydramine HCl (Benadryl) 25 mg Q6H PRN IVP Itching 12/14/18 11:45 01/13/19 11:44 12/19/18 17:36 Heparin Sodium (Porcine) (Heparin 5000 units/ml) 5,000 units EVERY 12 HOURS SUBQ 12/12/18 21:00 01/11/19 20:59 12/17/18 20:20 Hydromorphone HCl (Dilaudid) 2 mg Q3H PRN IV pain 4-6 12/19/18 10:45 12/26/18 10:44 12/19/18 17:35 Hydromorphone HCl (Dilaudid) 3 mg Q3H PRN IVP For Pain 7-10 12/19/18 10:45 12/26/18 10:44 12/19/18 14:28 Linezolid (Zyvox) 600 mg EVERY 12 HOURS ORAL 12/15/18 21:00 12/20/18 20:59 12/19/18 09:02 Ondansetron HCl (Zofran) 4 mg Q6H PRN IVP Nausea & Vomiting 12/12/18 13:45 01/11/19 13:44 Oxycodone HCl (OxyCONTIN) 30 mg TID@0900,1300,2100 ORAL 12/18/18 10:00 12/25/18 09:59 12/19/18 12:58 Polyethylene Glycol (Miralax) 17 gm HSPRN PRN ORAL Constipation 12/12/18 13:45 01/11/19 13:44 Sodium Chloride 1,000 ml @ 100 mls/hr Q10H IV 12/18/18 18:45 01/12/19 18:44 12/19/18 10:38 Allergies: Coded Allergies: CAPSAICIN (Verified Allergy, Unknown, 11/23/18) CEFTRIAXONE (Verified Allergy, Unknown, 11/23/18) Uncoded Allergies: CONTRAST (Adverse Reaction, Severe, Rash, 06/23/16) RADIOCONTRAST - RASH, ITCHING ROS Limited/Unobtainable: No Constitutional: Reports: no symptoms HEENT: Reports: no symptoms Cardiovascular: Reports: no symptoms Respiratory: Reports: no symptoms Gastrointestinal/Abdominal: Reports: no symptoms Genitourinary: Reports: no symptoms Neurologic/Psychiatric: Reports: no symptoms Subjective 23 YO M with sicke cell dis. Admitted with sickle cell Crisis. Now line sepsis. Cover for Int Med-Dr Bearden. C/O generalized pain. Patient refused removal of port-a-cath Objective Last Vital Signs Date Time Temp Pulse Resp B/P (MAP) Pulse Ox O2 Delivery O2 Flow Rate FiO2 12/19/18 16:00 99.4 69 20 124/69 (87) 97 12/19/18 09:00 Room Air Laboratory Tests Test 12/19/18 05:15 White Blood Count 12.3 K/UL (4.8-10.8) H Red Blood Count 3.25 M/UL (4.70-6.10) L Hemoglobin 8.6 G/DL (14.2-18.0) L Hematocrit 26.0 % (42.0-52.0) L Mean Corpuscular Volume 80 FL (80-99) Mean Corpuscular Hemoglobin 26.4 PG (27.0-31.0) L Mean Corpuscular Hemoglobin Concent 32.9 G/DL (32.0-36.0) Red Cell Distribution Width 18.2 % (11.6-14.8) H Platelet Count 412 K/UL (150-450) Mean Platelet Volume 6.6 FL (6.5-10.1) Neutrophils (%) (Auto) 43.1 % (45.0-75.0) L Lymphocytes (%) (Auto) 44.9 % (20.0-45.0) Monocytes (%) (Auto) 8.1 % (1.0-10.0) Eosinophils (%) (Auto) 2.3 % (0.0-3.0) Basophils (%) (Auto) 1.6 % (0.0-2.0) Sodium Level 140 MMOL/L (136-145) Potassium Level 3.9 MMOL/L (3.5-5.1) Chloride Level 102 MMOL/L (98-107) Carbon Dioxide Level 30 MMOL/L (21-32) Anion Gap 8 mmol/L (5-15) Blood Urea Nitrogen 6 mg/dL (7-18) L Creatinine 0.6 MG/DL (0.55-1.30) Estimat Glomerular Filtration Rate > 60 mL/min (>60) Glucose Level 88 MG/DL (74-106) Calcium Level 8.5 MG/DL (8.5-10.1) Microbiology Date/Time Source Procedure Growth Status 12/18/18 04:30 Blood Blood Culture - Preliminary NO GROWTH AFTER 24 HOURS Resulted Intake and Output 12/18/18 12/19/18 19:00 07:00 Intake Total 1900 ml 1340 ml Balance 1900 ml 1340 ml Intake Oral 1000 ml 240 ml IV Total 900 ml 1100 ml # Voids 2 Objective PHYSICAL EXAMINATION: GENERAL: The patient is a well-developed and well-nourished slightly obese, male, in no apparent distress. HEENT: Eyes, pupils are equal and responsive to light and accommodation. Extraocular movements are intact. NECK: Supple without lymphadenopathy. CHEST: Lungs are clear to auscultation bilaterally without wheezes or rales. CARDIOVASCULAR: Regular rhythm and rate. S1 and S2 are normal without murmurs, rubs, or gallops. ABDOMEN: Soft, nontender, and nondistended. Positive bowel sounds. No evidence of hepatosplenomegaly. Currently, no rebound or guarding noted. EXTREMITIES: Negative for clubbing, cyanosis, or edema. RECTAL/GENITAL: Refused. NEUROLOGIC: Cranial nerves II through XII are grossly intact without focal deficits. Motor strength is 5/5 bilaterally. Deep tendon reflexes are 2+ plantar. Assessment/Plan Assessment/Plan ASSESSMENT: This is a 23-year-old male. 1. Sickle cell crisis. 2. Sickle cell disease. 3. Asthma. 4. Avascular necrosis of the left hip. 5. Sepsis-Coag neg staph TREATMENT: 1. Sickle cell crisis/sickle cell disease. Continue intravenous Dilaudidandlong-acting OxyContin per pain management 2. Asthma. Continue Advair as above. A Pulmonary consultation has been obtained with Dr. Ranjith Caicedo. 3. Avascular necrosis of the left hip. 4. Leukocytosis -secondary to sickle cell crisis 5. Elevated liver function tests. 6. Pain management consult with Dr Tucker 7. Continue linezolid per ID 8. Patient REFUSED Port-a-cath removal by Int Radiol Edilson Rubalcava MD December 19, 2018 17:56
--- NOTE | 2018-12-19 19:30 | NUR ---
HAND-OFF: Report given to Tammy Giles, pt in stable condition. Rn informed to incoming nurse that pt agreed and signed consent for the removal of his michelet cath tomorrow morning. RN also called Dr. Rubalcava to inform of the above.
--- NOTE | 2018-12-19 19:31 | NUR ---
NURSE NOTES: Received report & pt from EDU Olguin. Pt lying in bed, a&ox4, in room air. No s/s of acute distress & c/o 3/10 pain. IV site intact with IVF running as ordered. Right chest port-a-cath C/D/I. Bed in lowest position, call light within reach. Will continue to monitor.
[2018-12-19 20:00] VITALS: BP 121/62
[2018-12-19] MEDS: Dyna-Hex 2% Top Sol 2oz TOPIC SCH (20:05)
[2018-12-20] VITALS: BP 128/69
[2018-12-20 04:00] VITALS: BP 123/73
--- NOTE | 2018-12-20 05:18 | NUR ---
NURSE NOTES: Pt agreed to do blood draw peripherally since port-a-cath is + for infection. States would like it done @ 0930 instead. Certified Travel Counselor Thea aware.
[2018-12-20] MEDS: DiphenhydrAMINE 50mg/ml Inj IVP PRN ×4 (05:43→23:59)
--- NOTE | 2018-12-20 07:30 | NUR ---
HAND-OFF: Report given to EDU Stroud. Pt in stable condition.
--- NOTE | 2018-12-20 07:30 | NUR ---
NURSE NOTES: Received pt from EDU STEWART. Pt is alert and orient x4. pt is in RA, No SOB or acute respiratory distress noted. pt has intact iv access RFA 24G is running well. pt has R chest port cath SL. Pt is in pain. All needs attended, bed is locked and is in the lowest position, call light within easy reach. will continue to monitor.
--- NOTE | 2018-12-20 07:52 | NUR ---
NURSE NOTES: Removal of tunneled cath with port automatically cancelled on [employer]. Spoke with Nabil from [facility], per Nabil, they don't have the specialist who will remove the port-a-cath today. Charge Nurse Cuca morocho.
[2018-12-20 08:00] VITALS: BP 117/67
--- NOTE | 2018-12-20 08:49 | General Progress Note ---
Assessment/Plan Assessment/Plan: (1) Sickle cell disease (2) Sickle cell crisis (3) Intractable pain Pt will be continued on OxyContin and Dilaudid. D/w Dr. Tucker and he concurred Subjective Date patient seen: December 20, 2018 Time patient seen: 07:15 - am Allergies: Coded Allergies: CAPSAICIN (Verified Allergy, Unknown, 11/23/18) CEFTRIAXONE (Verified Allergy, Unknown, 11/23/18) Uncoded Allergies: CONTRAST (Adverse Reaction, Severe, Rash, 06/23/16) RADIOCONTRAST - RASH, ITCHING Subjective Constitutional: Reports: chills, weakness HEENT: Reports: no symptoms Cardiovascular: Reports: no symptoms Respiratory: Reports: no symptoms Gastrointestinal/Abdominal: Reports: no symptoms Genitourinary: Reports: no symptoms Neurologic/Psychiatric: Reports: tingling, weakness Endocrine: Reports: no symptoms Hematologic/Lymphatic: Reports: no symptoms Subjective Patient has continued pain which has been tolerated on the Oxycodone and Dilaudid no new complaints at this time. Objective Last 24 Hour Vital Signs Date Time Temp Pulse Resp B/P (MAP) Pulse Ox O2 Delivery O2 Flow Rate FiO2 12/20/18 08:00 98.2 60 20 117/67 (84) 99 12/20/18 04:00 97.6 60 19 123/73 (90) 98 12/20/18 00:00 99.0 65 18 128/69 (88) 97 12/19/18 21:00 Room Air 12/19/18 20:00 99.0 62 17 121/62 (81) 96 12/19/18 18:05 99.4 12/19/18 16:00 99.4 69 20 124/69 (87) 97 12/19/18 14:58 98.4 12/19/18 13:28 98.4 12/19/18 12:00 98.7 63 18 120/55 (76) 95 12/19/18 09:00 Room Air Intake and Output 12/19/18 12/20/18 19:00 07:00 Intake Total 2150 ml 1880 ml Output Total 1800 ml 1300 ml Balance 350 ml 580 ml Intake Oral 850 ml 780 ml IV Total 1300 ml 1100 ml Output Urine Total 1800 ml 1300 ml # Voids 3 # Bowel Movements 2 Height (Feet): 5 Height (Inches): 6.00 Weight (Pounds): 249 Objective General Appearance: no apparent distress, alert EENT: PERRL/EOMI, normal ENT inspection Neck: non-tender, normal alignment Cardiovascular: normal rate, regular rhythm Respiratory/Chest: decreased breath sounds Abdomen: non tender, soft Extremities: non-tender Edema: no edema noted Arm (L), no edema noted Arm (R), no edema noted Leg (L), no edema noted Leg (R), no edema noted Pedal (L), no edema noted Pedal (R), no edema noted Generalized Neurologic: alert, oriented x 3 Skin: warm/dry Orlando Oglesby December 20, 2018 08:49
[2018-12-20] MEDS: Heparin 5000 units/ml inj SUBQ SCH ×2 (08:58→20:59)
[2018-12-20] MEDS: oxyCONTIN 10mg tab ORAL SCH ×3 (09:46→21:58)
--- NOTE | 2018-12-20 09:55 | Physician Query ---
--------- THIS DOCUMENT IS A PERMANENT PART OF THE MEDICAL RECORD --------- PLEASE COMPLETE DOCUMENT BEFORE SIGNING Dear Dr. Edilson Rubalcava Date: 12/18/18 Program Advisor/CDS Name: Milagro Hughes Exercise your independent professional judgment when responding to the query. Questions asked do not imply a particular answer is desired or expected. We greatly appreciate your clarification on this issue. CLINICAL DOCUMENTATION STATES: 23 yo male presenting in sickle cell crisis 12/15 ID note: (2) Leukocytosis Assessment & Plan: suspect due to bacteremia and Port A infection , await blood culture, recommend Brenda A cath removal, continue oral zyvox pending IV access 12/16 IM note: Sepsis-Coag neg staph 12/12 labs/vitals: WBC 19.1, Tmax 98.8, HR 86, RR 20; 12/13 BCx: coag neg staph Treatment: IV linezolid Clarification is needed for one (or more) of the following conditions in order to accurately assign the "present on admission' indicator. Please choose the answer that best indicates whether the associated condition was present at the time of the order for inpatient admission. Thank you. Diagnoses in question: Sepsis and port A cath infection Was the Bacteremia due to port A cath infection Present on admission? [] YES [] NO [ ] Clinically Undeterminable Was the Sepsis Present on admission? [] YES [] NO [] Clinically Undeterminable Please also document in your Progress Notes and/or Discharge Summary and indicate if the condition was present on admission. Signature Date MTDD
[2018-12-20 12:00] VITALS: BP 126/68
--- NOTE | 2018-12-20 12:32 | Pulmonology Progress Note ---
Assessment/Plan Problems: (1) Sickle cell crisis (2) Bacteremia Assessment/Plan second set of abx are negaivei iv abx iv fluids check electrolytes symptomatic treatment. Subjective ROS Limited/Unobtainable: No Constitutional: Reports: no symptoms HEENT: Repors: no symptoms Respiratory: Reports: no symptoms Allergies: Coded Allergies: CAPSAICIN (Verified Allergy, Unknown, 11/23/18) CEFTRIAXONE (Verified Allergy, Unknown, 11/23/18) Uncoded Allergies: CONTRAST (Adverse Reaction, Severe, Rash, 06/23/16) RADIOCONTRAST - RASH, ITCHING Objective Last 24 Hour Vital Signs Date Time Temp Pulse Resp B/P (MAP) Pulse Ox O2 Delivery O2 Flow Rate FiO2 12/20/18 12:00 97.2 55 20 126/68 (87) 98 12/20/18 10:16 98.2 12/20/18 09:18 98.2 12/20/18 09:00 Room Air 12/20/18 08:00 98.2 60 20 117/67 (84) 99 12/20/18 04:00 97.6 60 19 123/73 (90) 98 12/20/18 00:00 99.0 65 18 128/69 (88) 97 12/19/18 21:00 Room Air 12/19/18 20:00 99.0 62 17 121/62 (81) 96 12/19/18 18:05 99.4 12/19/18 16:00 99.4 69 20 124/69 (87) 97 Intake and Output 12/19/18 12/20/18 19:00 07:00 Intake Total 2150 ml 1880 ml Output Total 1800 ml 1300 ml Balance 350 ml 580 ml Intake Oral 850 ml 780 ml IV Total 1300 ml 1100 ml Output Urine Total 1800 ml 1300 ml # Voids 3 # Bowel Movements 2 General Appearance: WD/WN HEENT: normocephalic, anicteric Respiratory/Chest: chest wall non-tender, lungs clear Cardiovascular: normal peripheral pulses, regular rhythm Abdomen: normal bowel sounds, no organomegaly Extremities: no cyanosis Skin: no lesions Neurologic/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: 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, no motor/sensory deficits Microbiology Date/Time Source Procedure Growth Status 12/18/18 04:30 Blood Blood Culture - Preliminary NO GROWTH AFTER 48 HOURS Resulted Current Medications Medications (Trade) Dose Ordered Sig/Arianne Route PRN Reason Start Time Stop Time Status Last Admin Dose Admin Acetaminophen (Tylenol) 650 mg Q4H PRN ORAL fever 12/12/18 13:45 01/11/19 13:44 Chlorhexidine Gluconate (Jihan-Hex 2%) 1 applic DAILY@2000 TOPIC 12/13/18 20:00 01/12/19 19:59 12/19/18 20:05 Dextrose (Dextrose 50%) 25 ml Q30M PRN IV Hypoglycemia 12/12/18 13:45 01/11/19 13:38 Dextrose (Dextrose 50%) 50 ml Q30M PRN IV hypoglycemia 12/12/18 13:45 01/11/19 13:44 Diphenhydramine HCl (Benadryl) 25 mg Q6H PRN IVP Itching 12/14/18 11:45 01/13/19 11:44 12/20/18 11:56 Heparin Sodium (Porcine) (Heparin 5000 units/ml) 5,000 units EVERY 12 HOURS SUBQ 12/12/18 21:00 01/11/19 20:59 12/20/18 08:58 Hydromorphone HCl (Dilaudid) 2 mg Q3H PRN IV pain 4-6 12/19/18 10:45 12/26/18 10:44 12/20/18 05:43 Hydromorphone HCl (Dilaudid) 3 mg Q3H PRN IVP For Pain 7-10 12/19/18 10:45 12/26/18 10:44 12/20/18 11:59 Linezolid (Zyvox) 600 mg EVERY 12 HOURS ORAL 12/15/18 21:00 12/20/18 20:59 12/20/18 08:48 Ondansetron HCl (Zofran) 4 mg Q6H PRN IVP Nausea & Vomiting 12/12/18 13:45 01/11/19 13:44 Oxycodone HCl (OxyCONTIN) 30 mg TID@0900,1300,2100 ORAL 12/18/18 10:00 12/25/18 09:59 12/20/18 09:46 Polyethylene Glycol (Miralax) 17 gm HSPRN PRN ORAL Constipation 12/12/18 13:45 01/11/19 13:44 Sodium Chloride 1,000 ml @ 100 mls/hr Q10H IV 12/18/18 18:45 01/12/19 18:44 12/20/18 10:40 Ranjith Caicedo MD December 20, 2018 12:32
--- NOTE | 2018-12-20 13:05 | NUR ---
CASE MANAGEMENT:REVIEW 12/20/18 SI:SICKLE CELL CRISIS. STAPHYLOCOCCUS EPIDERMIDIS BACTEREMIA 97.2 55 20 126/68 98% ON RA IS: IVF@100/HR ZYVOX PO Q12 OXYCONTIN PO TID HEPARIN SQ Q12 IV DILAUDID Q3HRS : TO MED/SURG [facility] DCP: FROM HOME PLAN: ARRANGE HOME HEALTH UPON DISCHARGE ~ NURSE VISIT, SICKLE CELL TEACHING
--- NOTE | 2018-12-20 13:33 | NUR ---
*-* INSURANCE *-* UPDATED CLINICALS HAVE BEEN FAXED TO: [facility]: HAYLIE P- [phone] [id number] F- [phone]
--- NOTE | 2018-12-20 13:46 | NUR ---
NURSE NOTES: Dr KHAN and Dr LOUIS visited pt, they are aware about HR, WBC and other V/S and LAB RESULTS. No new order. will continue to monitor.
--- NOTE | 2018-12-20 14:32 | Infectious Diseases Prog Note ---
Assessment/Plan Problems: (1) Port-A-Cath in place Assessment & Plan: infected with staph epidermidis and coag negative staph , recommend removal to eliminate source of bacteremia, but he refused , will continue zyvox orally for two weeks . D/W patient and nurse. patient refused to remove port A cath , he is fully aware of the risks . repeat blood culture by the end of the antibiotics treatment x2 to confirm resolution (2) Leukocytosis Assessment & Plan: suspect due to bacteremia and Port A infection , confirmed by blood culture which was taken mainly from the port , recommend Brenda A cath removal, continue oral zyvox for tow weeks . if continues to refuse port A cath removal , recommend to treat with antibiotics for two weeks and repeat blood culture in two weeks to confirm resolution of the bacteremia. (3) Fever Assessment & Plan: recurrent suspect due to bacteremia, continue antibiotics and tylenol (4) Sickle cell crisis Assessment & Plan: continue pain management, blood transfusion as needed, and hydration, follow up with hematology Subjective Constitutional: Reports: no symptoms HEENT: Reports: no symptoms Respiratory: Reports: no symptoms Breasts: Reports: no symptoms Cardiovascular: Reports: no symptoms Gastrointestinal/Abdominal: Reports: no symptoms Genitourinary: Reports: no symptoms Neurologic: Reports: no symptoms Psychiatric: Reports: no symptoms Skin: Reports: no symptoms Endocrine: Reports: no symptoms Hematologic: Reports: no symptoms Musculoskeletal: Reports: pain Allergies: Coded Allergies: CAPSAICIN (Verified Allergy, Unknown, 11/23/18) CEFTRIAXONE (Verified Allergy, Unknown, 11/23/18) Uncoded Allergies: CONTRAST (Adverse Reaction, Severe, Rash, 06/23/16) RADIOCONTRAST - RASH, ITCHING Subjective He was comfortable, up in bed, still resistant to have the Port A cath removed , I explained to him the risks which include sepsis, shock, metastatic infection , ETC.. . he is interested to be treated with antibiotics only at this time Objective Vital Signs Last 24 Hour Vital Signs Date Time Temp Pulse Resp B/P (MAP) Pulse Ox O2 Delivery O2 Flow Rate FiO2 12/20/18 14:02 97.2 12/20/18 12:29 97.2 12/20/18 12:00 97.2 55 20 126/68 (87) 98 12/20/18 09:00 Room Air 12/20/18 08:00 98.2 60 20 117/67 (84) 99 12/20/18 04:00 97.6 60 19 123/73 (90) 98 12/20/18 00:00 99.0 65 18 128/69 (88) 97 12/19/18 21:00 Room Air 12/19/18 20:00 99.0 62 17 121/62 (81) 96 12/19/18 18:05 99.4 12/19/18 16:00 99.4 69 20 124/69 (87) 97 Height (Feet): 5 Height (Inches): 6.00 Weight (Pounds): 249 General Appearance: WD/WN, no acute distress HEENT: normocephalic, atraumatic, anicteric, mucous membranes moist, PERRL Respiratory/Chest: chest wall non-tender, lungs clear, normal breath sounds, no respiratory distress, no accessory muscle use Cardiovascular: normal peripheral pulses, normal rate, regular rhythm, no gallop/murmur, no JVD Abdomen: normal bowel sounds, soft, non tender, no organomegaly, non distended , no mass, no scars Genitourinary: normal external genitalia Extremities: no cyanosis, no clubbing Skin: no rash, no lesions, no ulcers Neurologic/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: 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, alert, oriented x 3, responsive, normal mood/affect Lymphatic: no neck adenopathy, no groin adenopathy Musculoskeletal: normal muscle bulk, no effusion Microbiology Date/Time Source Procedure Growth Status 12/18/18 04:30 Blood Blood Culture - Preliminary NO GROWTH AFTER 48 HOURS Resulted Current Medications Medications (Trade) Dose Ordered Sig/Arianne Route PRN Reason Start Time Stop Time Status Last Admin Dose Admin Acetaminophen (Tylenol) 650 mg Q4H PRN ORAL fever 12/12/18 13:45 01/11/19 13:44 Chlorhexidine Gluconate (Jihan-Hex 2%) 1 applic DAILY@1999 TOPIC 12/13/18 20:00 01/12/19 19:59 12/19/18 20:05 Dextrose (Dextrose 50%) 25 ml Q30M PRN IV Hypoglycemia 12/12/18 13:45 01/11/19 13:38 Dextrose (Dextrose 50%) 50 ml Q30M PRN IV hypoglycemia 12/12/18 13:45 01/11/19 13:44 Diphenhydramine HCl (Benadryl) 25 mg Q6H PRN IVP Itching 12/14/18 11:45 01/13/19 11:44 12/20/18 11:56 Heparin Sodium (Porcine) (Heparin 5000 units/ml) 5,000 units EVERY 12 HOURS SUBQ 12/12/18 21:00 01/11/19 20:59 12/20/18 08:58 Hydromorphone HCl (Dilaudid) 2 mg Q3H PRN IV pain 4-6 12/19/18 10:45 12/26/18 10:44 12/20/18 05:43 Hydromorphone HCl (Dilaudid) 3 mg Q3H PRN IVP For Pain 7-10 12/19/18 10:45 12/26/18 10:44 12/20/18 11:59 Linezolid (Zyvox) 600 mg EVERY 12 HOURS ORAL 12/15/18 21:00 12/20/18 20:59 12/20/18 08:48 Ondansetron HCl (Zofran) 4 mg Q6H PRN IVP Nausea & Vomiting 12/12/18 13:45 01/11/19 13:44 Oxycodone HCl (OxyCONTIN) 30 mg TID@0900,1300,2100 ORAL 12/18/18 10:00 12/25/18 09:59 12/20/18 13:32 Polyethylene Glycol (Miralax) 17 gm HSPRN PRN ORAL Constipation 12/12/18 13:45 01/11/19 13:44 Sodium Chloride 1,000 ml @ 100 mls/hr Q10H IV 12/18/18 18:45 01/12/19 18:44 12/20/18 10:40 Emeka Solorzano M.D. December 20, 2018 14:32
[2018-12-20 16:00] VITALS: BP 108/69
--- NOTE | 2018-12-20 19:14 | Internal Med Progress Note ---
Subjective Date of Service: December 20, 2018 Physician Name GiniEdilson Attending Physician Jersey Bearden MD Current Medications Medications (Trade) Dose Ordered Sig/Arianne Route PRN Reason Start Time Stop Time Status Last Admin Dose Admin Acetaminophen (Tylenol) 650 mg Q4H PRN ORAL fever 12/12/18 13:45 01/11/19 13:44 Chlorhexidine Gluconate (Jihan-Hex 2%) 1 applic DAILY@2000 TOPIC 12/13/18 20:00 01/12/19 19:59 12/19/18 20:05 Dextrose (Dextrose 50%) 25 ml Q30M PRN IV Hypoglycemia 12/12/18 13:45 01/11/19 13:38 Dextrose (Dextrose 50%) 50 ml Q30M PRN IV hypoglycemia 12/12/18 13:45 01/11/19 13:44 Diphenhydramine HCl (Benadryl) 25 mg Q6H PRN IVP Itching 12/14/18 11:45 01/13/19 11:44 12/20/18 18:02 Heparin Sodium (Porcine) (Heparin 5000 units/ml) 5,000 units EVERY 12 HOURS SUBQ 12/12/18 21:00 01/11/19 20:59 12/20/18 08:58 Hydromorphone HCl (Dilaudid) 2 mg Q3H PRN IV pain 4-6 12/19/18 10:45 12/26/18 10:44 12/20/18 05:43 Hydromorphone HCl (Dilaudid) 3 mg Q3H PRN IVP For Pain 7-10 12/19/18 10:45 12/26/18 10:44 12/20/18 18:05 Linezolid (Zyvox) 600 mg EVERY 12 HOURS ORAL 12/15/18 21:00 12/29/18 22:00 12/20/18 08:48 Ondansetron HCl (Zofran) 4 mg Q6H PRN IVP Nausea & Vomiting 12/12/18 13:45 01/11/19 13:44 Oxycodone HCl (OxyCONTIN) 30 mg TID@0900,1300,2100 ORAL 12/18/18 10:00 12/25/18 09:59 12/20/18 13:32 Polyethylene Glycol (Miralax) 17 gm HSPRN PRN ORAL Constipation 12/12/18 13:45 01/11/19 13:44 Sodium Chloride 1,000 ml @ 100 mls/hr Q10H IV 12/18/18 18:45 01/12/19 18:44 12/20/18 18:01 Allergies: Coded Allergies: CAPSAICIN (Verified Allergy, Unknown, 11/23/18) CEFTRIAXONE (Verified Allergy, Unknown, 11/23/18) Uncoded Allergies: CONTRAST (Adverse Reaction, Severe, Rash, 06/23/16) RADIOCONTRAST - RASH, ITCHING ROS Limited/Unobtainable: No Constitutional: Reports: no symptoms HEENT: Reports: no symptoms Cardiovascular: Reports: no symptoms Respiratory: Reports: no symptoms Gastrointestinal/Abdominal: Reports: no symptoms Genitourinary: Reports: no symptoms Neurologic/Psychiatric: Reports: no symptoms Subjective 23 YO M with sicke cell dis. Admitted with sickle cell Crisis. Now line sepsis. Cover for Int Med-Dr Bearden. C/O generalized pain. Patient refused removal of port-a-cath Objective Last Vital Signs Date Time Temp Pulse Resp B/P (MAP) Pulse Ox O2 Delivery O2 Flow Rate FiO2 12/20/18 18:35 97.3 12/20/18 16:00 68 19 108/69 (82) 97 12/20/18 09:00 Room Air Microbiology Date/Time Source Procedure Growth Status 12/18/18 04:30 Blood Blood Culture - Preliminary NO GROWTH AFTER 48 HOURS Resulted Intake and Output 12/19/18 12/20/18 19:00 07:00 Intake Total 2150 ml 1880 ml Output Total 1800 ml 1300 ml Balance 350 ml 580 ml Intake Oral 850 ml 780 ml IV Total 1300 ml 1100 ml Output Urine Total 1800 ml 1300 ml # Voids 3 # Bowel Movements 2 Objective PHYSICAL EXAMINATION: GENERAL: The patient is a well-developed and well-nourished slightly obese, male, in no apparent distress. HEENT: Eyes, pupils are equal and responsive to light and accommodation. Extraocular movements are intact. NECK: Supple without lymphadenopathy. CHEST: Lungs are clear to auscultation bilaterally without wheezes or rales. CARDIOVASCULAR: Regular rhythm and rate. S1 and S2 are normal without murmurs, rubs, or gallops. ABDOMEN: Soft, nontender, and nondistended. Positive bowel sounds. No evidence of hepatosplenomegaly. Currently, no rebound or guarding noted. EXTREMITIES: Negative for clubbing, cyanosis, or edema. RECTAL/GENITAL: Refused. NEUROLOGIC: Cranial nerves II through XII are grossly intact without focal deficits. Motor strength is 5/5 bilaterally. Deep tendon reflexes are 2+ plantar. Assessment/Plan Assessment/Plan ASSESSMENT: This is a 23-year-old male. 1. Sickle cell crisis. 2. Sickle cell disease. 3. Asthma. 4. Avascular necrosis of the left hip. 5. Sepsis-Coag neg staph TREATMENT: 1. Sickle cell crisis/sickle cell disease. Continue intravenous Dilaudidandlong-acting OxyContin per pain management 2. Asthma. Continue Advair as above. A Pulmonary consultation has been obtained with Dr. Ranjith Caicedo. 3. Avascular necrosis of the left hip. 4. Leukocytosis -secondary to sickle cell crisis 5. Elevated liver function tests. 6. Pain management consult with Dr Tucker 7. Continue linezolid per ID 8. Patient REFUSED Port-a-cath removal by Int Radiol Edilson Rubalcava MD December 20, 2018 19:14
--- NOTE | 2018-12-20 19:30 | NUR ---
HAND-OFF: Report given to EDU STEWART.
--- NOTE | 2018-12-20 19:30 | NUR ---
NURSE NOTES: Received report & pt from EDU Stroud. Pt lying in bed, a&ox4, in room air. No s/s of acute distress & c/o 8/10 pain. IV site intact with IVF running as ordered. Right chest port-a-cath C/D/I. Bed in lowest position, call light within reach. Will continue to monitor. Per AM shift report, Doctor will come tomorrow to remove portacath.
[2018-12-20 20:00] VITALS: BP 131/78
[2018-12-20] MEDS: Dyna-Hex 2% Top Sol 2oz TOPIC SCH (20:10)
[2018-12-20] MEDS ORDERED: 1/2 NS 1000ml IV ONE ×2 (20:44)
--- NOTE | 2018-12-20 21:07 | NUR ---
NURSE NOTES: Pt refused scheduled heparin stating he already got one this morning and he should be ok for tonight. Explained risks & benefits.
[2018-12-21] VITALS: BP 108/65
[2018-12-21 04:00] VITALS: BP 107/65
[2018-12-21] MEDS: DiphenhydrAMINE 50mg/ml Inj IVP PRN ×2 (05:59→15:04)
--- NOTE | 2018-12-21 07:30 | NUR ---
HAND-OFF: Report given to EDU Jade. Pt in stable condition. Rounds done.
--- NOTE | 2018-12-21 07:50 | NUR ---
NURSE NOTES: received patient on bed, awake. IV intact and patent. Be din low and locked position, call light in reach. No signs of respiratory distress. Room board updated, will continue to monitor.
[2018-12-21 08:00] VITALS: BP 104/60
--- NOTE | 2018-12-21 08:47 | General Progress Note ---
Assessment/Plan Assessment/Plan: (1) Sickle cell disease (2) Sickle cell crisis (3) Intractable pain Pt will be continued on OxyContin and Dilaudid. D/w Dr. Tucker and he concurred Subjective Date patient seen: December 21, 2018 Time patient seen: 07:00 - am Allergies: Coded Allergies: CAPSAICIN (Verified Allergy, Unknown, 11/23/18) CEFTRIAXONE (Verified Allergy, Unknown, 11/23/18) Uncoded Allergies: CONTRAST (Adverse Reaction, Severe, Rash, 06/23/16) RADIOCONTRAST - RASH, ITCHING Subjective Constitutional: Reports: chills, weakness HEENT: Reports: no symptoms Cardiovascular: Reports: no symptoms Respiratory: Reports: no symptoms Gastrointestinal/Abdominal: Reports: no symptoms Genitourinary: Reports: no symptoms Neurologic/Psychiatric: Reports: tingling, weakness Endocrine: Reports: no symptoms Hematologic/Lymphatic: Reports: no symptoms Subjective Patient states that he is feeling better, continues to c/o pain however tolerated on the OxyContin and Dilaudid. He has no new complaints at this time. Objective Last 24 Hour Vital Signs Date Time Temp Pulse Resp B/P (MAP) Pulse Ox O2 Delivery O2 Flow Rate FiO2 12/21/18 04:00 98.2 59 16 107/65 (79) 94 12/21/18 00:00 98.4 67 18 108/65 (79) 94 12/20/18 21:28 Room Air 12/20/18 20:00 99.0 87 18 131/78 (95) 95 12/20/18 18:35 97.3 12/20/18 16:00 97.3 68 19 108/69 (82) 97 12/20/18 14:02 97.2 12/20/18 12:00 97.2 55 20 126/68 (87) 98 12/20/18 09:00 Room Air Intake and Output 12/20/18 12/21/18 18:59 06:59 Intake Total 1420 ml 1840 ml Output Total 600 ml 2600 ml Balance 820 ml -760 ml Intake Oral 720 ml 840 ml IV Total 700 ml 1000 ml Output Urine Total 600 ml 1200 ml Stool Total 1400 ml # Voids 1 2 Height (Feet): 5 Height (Inches): 6.00 Weight (Pounds): 249 Objective General Appearance: no apparent distress, alert EENT: PERRL/EOMI, normal ENT inspection Neck: non-tender, normal alignment Cardiovascular: normal rate, regular rhythm Respiratory/Chest: decreased breath sounds Abdomen: non tender, soft Extremities: non-tender Edema: no edema noted Arm (L), no edema noted Arm (R), no edema noted Leg (L), no edema noted Leg (R), no edema noted Pedal (L), no edema noted Pedal (R), no edema noted Generalized Neurologic: alert, oriented x 3 Skin: warm/dry Orlando Oglesby December 21, 2018 08:47
[2018-12-21] MEDS: Heparin 5000 units/ml inj SUBQ SCH (09:00)
[2018-12-21] MEDS: oxyCONTIN 10mg tab ORAL SCH ×2 (09:05→13:57)
--- NOTE | 2018-12-21 09:17 | NUR ---
NURSE NOTES: Patient refused scheduled heparin dose. Risks versus benefits explained.
--- NOTE | 2018-12-21 11:40 | Pulmonology Progress Note ---
Assessment/Plan Problems: (1) Sickle cell crisis (2) Bacteremia Assessment/Plan second set of cultures are negative continue nasal cannula iv abx iv fluids check electrolytes symptomatic treatment. Subjective ROS Limited/Unobtainable: No Interval Events: no new complains Allergies: Coded Allergies: CAPSAICIN (Verified Allergy, Unknown, 11/23/18) CEFTRIAXONE (Verified Allergy, Unknown, 11/23/18) Uncoded Allergies: CONTRAST (Adverse Reaction, Severe, Rash, 06/23/16) RADIOCONTRAST - RASH, ITCHING Objective Last 24 Hour Vital Signs Date Time Temp Pulse Resp B/P (MAP) Pulse Ox O2 Delivery O2 Flow Rate FiO2 12/21/18 09:00 Room Air 12/21/18 08:00 98.2 66 18 104/60 (75) 99 12/21/18 04:00 98.2 59 16 107/65 (79) 94 12/21/18 00:00 98.4 67 18 108/65 (79) 94 12/20/18 21:28 Room Air 12/20/18 20:00 99.0 87 18 131/78 (95) 95 12/20/18 18:35 97.3 12/20/18 16:00 97.3 68 19 108/69 (82) 97 12/20/18 14:02 97.2 12/20/18 12:00 97.2 55 20 126/68 (87) 98 Intake and Output 12/20/18 12/21/18 18:59 06:59 Intake Total 1420 ml 1840 ml Output Total 600 ml 2600 ml Balance 820 ml -760 ml Intake Oral 720 ml 840 ml IV Total 700 ml 1000 ml Output Urine Total 600 ml 1200 ml Stool Total 1400 ml # Voids 1 2 General Appearance: WD/WN HEENT: normocephalic, atraumatic Respiratory/Chest: chest wall non-tender, lungs clear Cardiovascular: normal peripheral pulses, normal rate Abdomen: normal bowel sounds, soft, non tender Extremities: no cyanosis Skin: no rash Neurologic/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: 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 Lymphatic: no neck adenopathy Microbiology Date/Time Source Procedure Growth Status 12/19/18 05:15 Arm Right Blood Culture - Preliminary NO GROWTH AFTER 24 HOURS Resulted Current Medications Medications (Trade) Dose Ordered Sig/Arianne Route PRN Reason Start Time Stop Time Status Last Admin Dose Admin Acetaminophen (Tylenol) 650 mg Q4H PRN ORAL fever 12/12/18 13:45 01/11/19 13:44 Chlorhexidine Gluconate (Jihan-Hex 2%) 1 applic DAILY@2000 TOPIC 12/13/18 20:00 01/12/19 19:59 12/20/18 20:10 Dextrose (Dextrose 50%) 25 ml Q30M PRN IV Hypoglycemia 12/12/18 13:45 01/11/19 13:38 Dextrose (Dextrose 50%) 50 ml Q30M PRN IV hypoglycemia 12/12/18 13:45 01/11/19 13:44 Diphenhydramine HCl (Benadryl) 25 mg Q6H PRN IVP Itching 12/14/18 11:45 01/13/19 11:44 12/21/18 05:59 Heparin Sodium (Porcine) (Heparin 5000 units/ml) 5,000 units EVERY 12 HOURS SUBQ 12/12/18 21:00 01/11/19 20:59 12/20/18 08:58 Hydromorphone HCl (Dilaudid) 2 mg Q3H PRN IV pain 4-6 12/19/18 10:45 12/26/18 10:44 12/21/18 06:00 Hydromorphone HCl (Dilaudid) 3 mg Q3H PRN IVP For Pain 7-10 12/19/18 10:45 12/26/18 10:44 12/21/18 10:34 Linezolid (Zyvox) 600 mg EVERY 12 HOURS ORAL 12/15/18 21:00 12/29/18 22:00 12/21/18 09:05 Ondansetron HCl (Zofran) 4 mg Q6H PRN IVP Nausea & Vomiting 12/12/18 13:45 01/11/19 13:44 Oxycodone HCl (OxyCONTIN) 30 mg TID@0900,1300,2100 ORAL 12/18/18 10:00 12/25/18 09:59 12/21/18 09:05 Polyethylene Glycol (Miralax) 17 gm HSPRN PRN ORAL Constipation 12/12/18 13:45 01/11/19 13:44 Sodium Chloride 1,000 ml @ 100 mls/hr Q10H IV 12/18/18 18:45 01/12/19 18:44 12/21/18 06:40 Ranjith Caicedo MD December 21, 2018 11:40
[2018-12-21 12:00] VITALS: BP 116/70
--- NOTE | 2018-12-21 14:49 | NUR ---
*-* INSURANCE *-* UPDATED CLINICALS HAVE BEEN FAXED TO: OMAR WALTERS: HAYLIE P- [phone] F- [phone]
--- NOTE | 2018-12-21 15:39 | Infectious Diseases Prog Note ---
Assessment/Plan Problems: (1) Port-A-Cath in place Assessment & Plan: infected with staph epidermidis and coag negative staph , recommend removal to eliminate source of bacteremia, an attempt was made to remove today was not successful , will continue zyvox orally for two weeks starting from the clearance date . port A cath to be removed later at [place] , D /W patient and nurse. RECOMMEND TO repeat blood culture by the end of the antibiotics treatment x2 to confirm resolution (2) Leukocytosis Assessment & Plan: suspect due to bacteremia and Port A infection , confirmed by blood culture which was taken mainly from the port , recommend Brenda A cath removal, continue oral zyvox for tow weeks . recommend to treat with antibiotics for two weeks and repeat blood culture in two weeks to confirm resolution of the bacteremia. may remove Port A cath later at [facility] where he had it placed (3) Fever Assessment & Plan: recurrent suspect due to bacteremia, continue antibiotics and tylenol (4) Sickle cell crisis Assessment & Plan: continue pain management, blood transfusion as needed, and hydration, follow up with hematology Subjective Constitutional: Reports: no symptoms HEENT: Reports: no symptoms Respiratory: Reports: no symptoms Breasts: Reports: no symptoms Cardiovascular: Reports: no symptoms Gastrointestinal/Abdominal: Reports: no symptoms Genitourinary: Reports: no symptoms Neurologic: Reports: no symptoms Psychiatric: Reports: no symptoms Skin: Reports: no symptoms Endocrine: Reports: no symptoms Hematologic: Reports: no symptoms Musculoskeletal: Reports: no symptoms Allergies: Coded Allergies: CAPSAICIN (Verified Allergy, Unknown, 11/23/18) CEFTRIAXONE (Verified Allergy, Unknown, 11/23/18) Uncoded Allergies: CONTRAST (Adverse Reaction, Severe, Rash, 06/23/16) RADIOCONTRAST - RASH, ITCHING Subjective He was comfortable, up in bed, still resistant to have the Port A cath removed , I explained to him the risks which include sepsis, shock, metastatic infection , ETC.. . he is interested to be treated with antibiotics only at this time Objective Vital Signs Last 24 Hour Vital Signs Date Time Temp Pulse Resp B/P (MAP) Pulse Ox O2 Delivery O2 Flow Rate FiO2 12/21/18 12:00 98.0 66 18 116/70 (85) 99 12/21/18 09:00 Room Air 12/21/18 08:00 98.2 66 18 104/60 (75) 99 12/21/18 04:00 98.2 59 16 107/65 (79) 94 12/21/18 00:00 98.4 67 18 108/65 (79) 94 12/20/18 21:28 Room Air 12/20/18 20:00 99.0 87 18 131/78 (95) 95 12/20/18 18:35 97.3 12/20/18 16:00 97.3 68 19 108/69 (82) 97 Height (Feet): 5 Height (Inches): 6.00 Weight (Pounds): 249 General Appearance: WD/WN, no acute distress HEENT: normocephalic, atraumatic, anicteric, mucous membranes moist, PERRL, EOMI, pharynx normal, supple, no JVD, status post trach Respiratory/Chest: chest wall non-tender, lungs clear, normal breath sounds, no respiratory distress, no accessory muscle use Cardiovascular: normal peripheral pulses, normal rate, regular rhythm, no gallop/murmur, no JVD Abdomen: normal bowel sounds, soft, non tender, no organomegaly, non distended , no mass, no scars Genitourinary: normal external genitalia Extremities: no cyanosis, no clubbing Skin: no rash, no lesions, no ulcers Neurologic/Psychiatric: rejected items clerk II-XII 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, no motor/sensory deficits, alert, oriented x 3, responsive Lymphatic: no neck adenopathy, no groin adenopathy Musculoskeletal: normal muscle bulk, no effusion Microbiology Date/Time Source Procedure Growth Status 12/19/18 05:15 Arm Right Blood Culture - Preliminary NO GROWTH AFTER 24 HOURS Resulted Current Medications Medications (Trade) Dose Ordered Sig/Arianne Route PRN Reason Start Time Stop Time Status Last Admin Dose Admin Acetaminophen (Tylenol) 650 mg Q4H PRN ORAL fever 12/12/18 13:45 01/11/19 13:44 Chlorhexidine Gluconate (Jihan-Hex 2%) 1 applic DAILY@1999 TOPIC 12/13/18 20:00 01/12/19 19:59 12/20/18 20:10 Dextrose (Dextrose 50%) 25 ml Q30M PRN IV Hypoglycemia 12/12/18 13:45 01/11/19 13:38 Dextrose (Dextrose 50%) 50 ml Q30M PRN IV hypoglycemia 12/12/18 13:45 01/11/19 13:44 Diphenhydramine HCl (Benadryl) 25 mg Q6H PRN IVP Itching 12/14/18 11:45 01/13/19 11:44 12/21/18 15:04 Heparin Sodium (Porcine) (Heparin 5000 units/ml) 5,000 units EVERY 12 HOURS SUBQ 12/12/18 21:00 01/11/19 20:59 12/20/18 08:58 Hydromorphone HCl (Dilaudid) 2 mg Q3H PRN IV pain 4-6 12/19/18 10:45 12/26/18 10:44 12/21/18 06:00 Hydromorphone HCl (Dilaudid) 3 mg Q3H PRN IVP For Pain 7-12/19/18 10:45 12/26/18 10:44 12/21/18 15:04 Linezolid (Zyvox) 600 mg EVERY 12 HOURS ORAL 12/15/18 21:00 12/29/18 22:00 12/21/18 09:05 Ondansetron HCl (Zofran) 4 mg Q6H PRN IVP Nausea & Vomiting 12/12/18 13:45 01/11/19 13:44 Oxycodone HCl (OxyCONTIN) 30 mg TID@0900,1300,2100 ORAL 12/18/18 10:00 12/25/18 09:59 12/21/18 13:57 Polyethylene Glycol (Miralax) 17 gm HSPRN PRN ORAL Constipation 12/12/18 13:45 01/11/19 13:44 Sodium Chloride 1,000 ml @ 100 mls/hr Q10H IV 12/18/18 18:45 01/12/19 18:44 12/21/18 06:40 Emeka Solorzano M.D. December 21, 2018 15:39
[2018-12-21 16:00] VITALS: BP 117/68
[2018-12-21] MEDS ORDERED: ZYVOX600 MG ORAL (16:41)
--- NOTE | 2018-12-21 18:28 | Internal Med Progress Note ---
Subjective Date of Service: December 21, 2018 Physician Name GiniEdilson Attending Physician Jersey Bearden MD Current Medications Medications (Trade) Dose Ordered Sig/Arianne Route PRN Reason Start Time Stop Time Status Last Admin Dose Admin Acetaminophen (Tylenol) 650 mg Q4H PRN ORAL fever 12/12/18 13:45 01/11/19 13:44 Chlorhexidine Gluconate (Jihan-Hex 2%) 1 applic DAILY@2000 TOPIC 12/13/18 20:00 01/12/19 19:59 12/20/18 20:10 Dextrose (Dextrose 50%) 25 ml Q30M PRN IV Hypoglycemia 12/12/18 13:45 01/11/19 13:38 Dextrose (Dextrose 50%) 50 ml Q30M PRN IV hypoglycemia 12/12/18 13:45 01/11/19 13:44 Diphenhydramine HCl (Benadryl) 25 mg Q6H PRN IVP Itching 12/14/18 11:45 01/13/19 11:44 12/21/18 15:04 Heparin Sodium (Porcine) (Heparin 5000 units/ml) 5,000 units EVERY 12 HOURS SUBQ 12/12/18 21:00 01/11/19 20:59 12/20/18 08:58 Hydromorphone HCl (Dilaudid) 2 mg Q3H PRN IV pain 4-6 12/19/18 10:45 12/26/18 10:44 12/21/18 06:00 Hydromorphone HCl (Dilaudid) 3 mg Q3H PRN IVP For Pain 7-10 12/19/18 10:45 12/26/18 10:44 12/21/18 15:04 Linezolid (Zyvox) 600 mg EVERY 12 HOURS ORAL 12/15/18 21:00 12/29/18 22:00 12/21/18 09:05 Ondansetron HCl (Zofran) 4 mg Q6H PRN IVP Nausea & Vomiting 12/12/18 13:45 01/11/19 13:44 Oxycodone HCl (OxyCONTIN) 30 mg TID@0900,1300,2100 ORAL 12/18/18 10:00 12/25/18 09:59 12/21/18 13:57 Polyethylene Glycol (Miralax) 17 gm HSPRN PRN ORAL Constipation 12/12/18 13:45 01/11/19 13:44 Sodium Chloride 1,000 ml @ 100 mls/hr Q10H IV 12/18/18 18:45 01/12/19 18:44 12/21/18 06:40 Allergies: Coded Allergies: CAPSAICIN (Verified Allergy, Unknown, 11/23/18) CEFTRIAXONE (Verified Allergy, Unknown, 11/23/18) Uncoded Allergies: CONTRAST (Adverse Reaction, Severe, Rash, 06/23/16) RADIOCONTRAST - RASH, ITCHING ROS Limited/Unobtainable: No Constitutional: Reports: no symptoms HEENT: Reports: no symptoms Cardiovascular: Reports: no symptoms Respiratory: Reports: no symptoms Gastrointestinal/Abdominal: Reports: no symptoms Genitourinary: Reports: no symptoms Neurologic/Psychiatric: Reports: no symptoms Subjective 23 YO M with sicke cell dis. Admitted with sickle cell Crisis. Now line sepsis. Cover for Int Med-Dr Bearden. C/O generalized pain. Patient refused removal of port-a-cath Objective Last Vital Signs Date Time Temp Pulse Resp B/P (MAP) Pulse Ox O2 Delivery O2 Flow Rate FiO2 12/21/18 16:00 98.2 60 17 117/68 (84) 99 12/21/18 09:00 Room Air Microbiology Date/Time Source Procedure Growth Status 12/19/18 05:15 Arm Right Blood Culture - Preliminary NO GROWTH AFTER 24 HOURS Resulted Intake and Output 12/20/18 12/21/18 19:00 07:00 Intake Total 1520 ml 1740 ml Output Total 600 ml 2600 ml Balance 920 ml -860 ml Intake Oral 720 ml 840 ml IV Total 800 ml 900 ml Output Urine Total 600 ml 1200 ml Stool Total 1400 ml # Voids 1 2 Objective PHYSICAL EXAMINATION: GENERAL: The patient is a well-developed and well-nourished slightly obese, male, in no apparent distress. HEENT: Eyes, pupils are equal and responsive to light and accommodation. Extraocular movements are intact. NECK: Supple without lymphadenopathy. CHEST: Lungs are clear to auscultation bilaterally without wheezes or rales. CARDIOVASCULAR: Regular rhythm and rate. S1 and S2 are normal without murmurs, rubs, or gallops. ABDOMEN: Soft, nontender, and nondistended. Positive bowel sounds. No evidence of hepatosplenomegaly. Currently, no rebound or guarding noted. EXTREMITIES: Negative for clubbing, cyanosis, or edema. RECTAL/GENITAL: Refused. NEUROLOGIC: Cranial nerves II through XII are grossly intact without focal deficits. Motor strength is 5/5 bilaterally. Deep tendon reflexes are 2+ plantar. Assessment/Plan Assessment/Plan ASSESSMENT: This is a 23-year-old male. 1. Sickle cell crisis. 2. Sickle cell disease. 3. Asthma. 4. Avascular necrosis of the left hip. 5. Sepsis-Coag neg staph TREATMENT: 1. Sickle cell crisis/sickle cell disease. Continue intravenous Dilaudidandlong-acting OxyContin per pain management 2. Asthma. Continue Advair as above. A Pulmonary consultation has been obtained with Dr. Ranjith Caicedo. 3. Avascular necrosis of the left hip. 4. Leukocytosis -secondary to sickle cell crisis 5. Elevated liver function tests. 6. Pain management consult with Dr Tucker 7. Continue linezolid per ID 8. Patient REFUSED Port-a-cath removal by Int Radiology 9. Discharge home today with oral zyvox per ID Edilson Rubalcava MD December 21, 2018 18:28
[2018-12-21] MEDS ORDERED: 1/2 NS 1000ml IV ONE (18:29)
--- NOTE | 2018-12-21 18:38 | NUR ---
NURSE NOTES: Patient discharged. IV site removed and portacath access tube removed and both covered and secured. Personal belongings inventoried and sent with patient. Patient kept comfortable at all times and patient needs met. Patient departed in taxi cab.
--- NOTE | 2018-12-22 13:48 | Discharge Summary ---
Discharge Summary Discharge Summary _ DATE OF ADMISSION: 12/12/2018 DATE OF DISCHARGE: 12/21/2018 ADMITTING MD: Dr. Jersey Bearden DISCHARGED BY: Dr. Ranjith Caicedo CONSULTANTS: Dr. Ranjith Tucker [facility] COURSE: Patient is a 23-year-old male, who presented to ED with chief complaint of fatigue and generalized pain. Patient has a history of sickle cell disease. Patient is followed as an outpatient by Dr. Kerline Davenport. The patient was admitted to [facility] from 11/23/2018 - 11/30/2018 for sickle cell crisis. History of present illness started a week prior to admission. The patient presented to Dr. Davenport's office. The patient had a fever. He was given intravenous antibiotics and was discharged with doxycycline for 7 days. The patient completed the course of doxycycline. The patient stated, that on 12/08, he began to experience bilateral leg pain. He also felt tired and fatigued. Pain extended up to his upper extremities. He then presented to [facility] emergency room for further evaluation. He has medical history significant for sickle cell disease, asthma, and avascular necrosis of the left hip. 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 On evaluation at the ED, vital signs were stable. Patient was afebrile. Blood work revealed WBC of 19, hemoglobin 11, hematocrit 36. Reticulocyte count was elevated at 11. Electrolytes were normal. Kidney function was normal. Total bilirubin was elevated at 2.0. Direct bilirubin 0.4. LFTs were elevated. He was given IV hydration. He was given IV morphine. He was then admitted for evaluation and management of sickle cell crisis. Patient was admitted to medical floor. He was given pain management. He was continued on IV fluids. LDH was monitored. WBC was elevated. There was concern for infection/infectious process. ID specialist was consulted. Patient was pancultured. He was kept off antibiotics pending work-up. wage and salary specialist was consulted. He was given OxyContin and Dilaudid. On 12/15/2018, he developed fever of 100 degrees. Blood culture showed growth of positive cocci which grew out of 4 bottles. He was given oral Zyvox as there was no IV access. He was recommended Port-A-Cath removal, however patient refused. Patient was fully informed of the risks. He was recommended since he refused Port-A-Cath removal, to be treated with antibiotics for 2 weeks and to repeat blood culture to confirm resolution of bacteremia. Repeat blood culture was done on 12/18/2018 and 12/19/2018. Surveillance blood cultures did not isolate any growth. LDH eventually normalized. He finally agreed and signed consent for removal of Port-A-Cath. Interventional radiologist was unable to do removal as there was no specialist available. ID specialist attempted to do the removal but was unsuccessful. Patient was cleared for discharge. Recommended to continue Zyvox orally for 2 weeks starting from clearance date. Port-A-Cath can be removed later at [facility]. Recommend to repeat blood culture by the end of antibiotic treatment in 2 weeks to confirm resolution. Patient was then discharged home with home health. FINAL DIAGNOSES: Coagulase-negative staph sepsis present on admission Bacteremia due to Port-A-Cath infection, present on admission Infected Port-A-Cath with staph epidermidis and coagulase-negative staph Sickle cell crisis Vascular necrosis of the left hip Asthma DISPOSITION: DC home with home health. DISCHARGE MEDICATIONS: Refer to Discharge Medication List. Continue Zyvox 600 mg every 12 hours for 12 days. Repeat blood culture at the end of antibiotic treatment to confirm resolution. DISCHARGE INSTRUCTIONS: Follow-up in a week. I have been assigned to complete a discharge summary on this account, I was not involved with the patient's management. Taylor Garcia NP December 22, 2018 13:48
== END 2018-12-21 18:30 | disposition home or self-care (01) | DRG 721 ==
LOC: EMR 08:45 → 3E 11:09 → EDBEDREQ 11:42
DX: T80.211A Bloodstream infection due to central venous catheter, initial encounter (principal); A41.1 Sepsis due to other specified staphylococcus; D57.00 Hb-SS disease with crisis, unspecified; M87.88 Other osteonecrosis, other site; Z68.41 Body mass index [BMI] 40.0-44.9, adult; Y84.8 Other medical procedures as the cause of abnormal reaction of the patient, or of later complication, without mention of misadventure at the time of the procedure; E66.9 Obesity, unspecified; Z79.82 Long term (current) use of aspirin; Z88.8 Allergy status to other drugs, medicaments and biological substances; Z91.041 Radiographic dye allergy status; Z90.81 Acquired absence of spleen; J45.909 Unspecified asthma, uncomplicated
CPT/HCPCS: 36415; 71045; 80048; 80053; 81003; 82248; 83615; 83690; 85007; 85025; 85044; 86705; 86803; 87040; 87181; 87340; 96361; 96374; 96376; 99285

== ENCOUNTER 2019-01-01 16:23 | Inpatient (IN) | payer MEDICAID ==
[~2019-01-01] VITALS: Ht 167.6 cm; Wt 113.1 kg
[~2019-01-01 16:23] MED LIST changes: +ZYVOX600 MG ORAL
[2019-01-01 16:25] VITALS: BP 134/75
[2019-01-01] MEDS ORDERED: Morphine Sulfate 4mg/ml Inj (IV USE ONLY) IVP ONE ×2 (16:45→19:00)
[2019-01-01 17:39] LABS: INR 1.1 (0.9-1.1)
[2019-01-01 17:41] LABS: ANION GAP 9 mmol/L (5-15); BLOOD UREA NITROGEN 8 mg/dL (7-18); CALCIUM 9.5 MG/DL (8.5-10.1); CARBON DIOXIDE 28 MMOL/L (21-32); CHLORIDE 102 MMOL/L (98-107); CREATININE 0.6 MG/DL (0.55-1.30); POTASSIUM 3.9 MMOL/L (3.5-5.1); SODIUM 139 MMOL/L (136-145)
[2019-01-01 17:49] LABS: HEMATOCRIT 30.3 % (42.0-52.0); HEMOGLOBIN 9.8 G/DL (14.2-18.0); MEAN CORPUSCULAR VOLUME 80 FL (80-99); PLATELET COUNT 456 K/UL (150-450); RED BLOOD COUNT 3.77 M/UL (4.70-6.10); RED CELL DISTRIBUTION WIDTH 18.2 % (11.6-14.8); WHITE BLOOD COUNT 20.8 K/UL (4.8-10.8)
[2019-01-01 17:55] LABS: ALANINE AMINOTRANSFERASE 122 U/L (12-78); ALBUMIN 4.1 G/DL (3.4-5.0); ALBUMIN/GLOBULIN RATIO 0.9 (1.0-2.7); ALKALINE PHOSPHATASE 102 U/L (46-116); ASPARTATE AMINO TRANSFERASE 62 U/L (15-37); BILIRUBIN,TOTAL 1.4 MG/DL (0.2-1.0); CKMB 0.6 NG/ML (0.0-3.6); CREATINE KINASE 24 U/L (26-308)
[2019-01-01 18:01] LABS: BILIRUBIN,DIRECT 0.3 MG/DL (0.0-0.3)
--- NOTE | 2019-01-01 18:45 | Emergency Room Report ---
History of Present Illness General Chief Complaint: Pain Source: Patient, EMS Present Illness HPI 23-year-old male presents ED for evaluation. Brought in by EMS from home. Complaining of generalized pain. History of sickle cell disease. Pain is sharp , 10 out of 10, nonradiating. Denies fevers or chills. States he's been compliant with his medications. No other aggravating relieving factors. Denies any other associated symptoms Allergies: Coded Allergies: CAPSAICIN (Verified Allergy, Unknown, 11/23/18) CEFTRIAXONE (Verified Allergy, Unknown, 11/23/18) IOPAMIDOL (Unverified Allergy, Unknown, 01/01/19) Uncoded Allergies: IV CONTRAST (Allergy, Unknown, 01/01/19) CONTRAST (Adverse Reaction, Severe, Rash, 06/23/16) RADIOCONTRAST - RASH, ITCHING Patient History Past Medical History: asthma Past Surgical History: none Pertinent Family History: none Immunizations: UTD Reviewed Nursing Documentation: PMH: Agreed; PSxH: Agreed Nursing Documentation-PMH Past Medical History: No History, Except For Hx Hypertension: No - Port-A-Cath Hx Pacemaker: No Hx Asthma: Yes Hx COPD: No Hx Diabetes: No Hx Cancer: No Hx Gastrointestinal Problems: No Hx Dialysis: No Hx Neurological Problems: No Hx Cerebrovascular Accident: No Hx Seizures: No Review of Systems All Other Systems: negative except mentioned in HPI Physical Exam Vital Signs Date Time Temp Pulse Resp B/P (MAP) Pulse Ox O2 Delivery O2 Flow Rate FiO2 01/01/19 16:09 100.6 94 16 130/80 (97) 98 Room Air Sp02 EP Interpretation: reviewed, normal General Appearance: no apparent distress, alert, GCS 15, non-toxic, obese Head: normocephalic, atraumatic Eyes: bilateral eye normal inspection, bilateral eye PERRL ENT: hearing 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, normal pharynx, no angioedema, normal voice Neck: full range of motion, supple/symm/no masses Respiratory: chest non-tender, lungs clear, normal breath sounds, speaking full sentences Cardiovascular #1: regular rate, rhythm, no edema Cardiovascular #2: 2+ carotid (R), 2+ carotid (L), 2+ radial (R), 2+ radial (L) , 2+ dorsalis pedis (R), 2+ dorsalis pedis (L) Gastrointestinal: normal bowel sounds, non tender, soft, non-distended, no guarding, no rebound Rectal: deferred Genitourinary: normal inspection, no CVA tenderness Musculoskeletal: back normal, gait/station normal, normal range of motion, non- tender Neurologic: alert, oriented x3, responsive, motor strength/tone normal, sensory intact, speech normal Psychiatric: judgement/insight normal, memory normal, mood/affect normal, no suicidal/homicidal ideation Reflexes: 3+ bicep (R), 3+ bicep (L), 3+ tricep (R), 3+ tricep (L), 3+ knee (R) , 3+ knee (L) Skin: normal color, no rash, warm/dry, well hydrated Lymphatic: no adenopathy Medical Decision Making Diagnostic Impression: Primary Impression: Sickle cell crisis Additional Impression: Leukocytosis Qualified Codes: D72.829 - Elevated white blood cell count, unspecified ER Course Hospital Course 23-year-old M presents ED complaining of generalized body pain, chest pain. h/o sickle cell Differential diagnoses include: WI/unstable angina, sickle cell crisis, sepsis, UTI, pneumonia Clinical course Patient placed on stretcher. on compliance monitor. After initial history and physical I ordered labs, EKG, chest x-ray, pain medications labs reviewed- WBC > 20, Hb/Hct stable, electrolytes ok, retic count elevated, LDH elevated, trop negative EKG - NSR, no acute ischemic changes interpreted by me Chest x-ray- no acute process, portacath line in place lactic/cultures drawn prior to abx Abx given. IVFs given. Case discussed with Dr. Bearden and he agreed to accept the patient to his service for further care and support I. I feel this is a highly complex case requiring extensive working including EKG/Rhythm strip, Xray/CT/US, Blood/urine lab work, repeat exams while in ED, and administration of strong opiates/narcotics for pain control, admission to hospital or close patient follow up. Diagnosis - sickle cell crisis, leukocytosis admitted to floor in serious condition Labs Test 01/01/19 17:10 White Blood Count 20.8 K/UL (4.8-10.8) Red Blood Count 3.77 M/UL (4.70-6.10) Hemoglobin 9.8 G/DL (14.2-18.0) Hematocrit 30.3 % (42.0-52.0) Mean Corpuscular Volume 80 FL (80-99) Mean Corpuscular Hemoglobin 26.0 PG (27.0-31.0) Mean Corpuscular Hemoglobin Concent 32.4 G/DL (32.0-36.0) Red Cell Distribution Width 18.2 % (11.6-14.8) Platelet Count 456 K/UL (150-450) Mean Platelet Volume 6.5 FL (6.5-10.1) Neutrophils (%) (Auto) % (45.0-75.0) Lymphocytes (%) (Auto) % (20.0-45.0) Monocytes (%) (Auto) % (1.0-10.0) Eosinophils (%) (Auto) % (0.0-3.0) Basophils (%) (Auto) % (0.0-2.0) Prothrombin Time 11.2 SEC (9.30-11.50) Prothromb Time International Ratio 1.1 (0.9-1.1) Activated Partial Thromboplast Time 27 SEC (23-33) Sodium Level 139 MMOL/L (136-145) Potassium Level 3.9 MMOL/L (3.5-5.1) Chloride Level 102 MMOL/L (98-107) Carbon Dioxide Level 28 MMOL/L (21-32) Anion Gap 9 mmol/L (5-15) Blood Urea Nitrogen 8 mg/dL (7-18) Creatinine 0.6 MG/DL (0.55-1.30) Estimat Glomerular Filtration Rate > 60 mL/min (>60) Glucose Level 119 MG/DL (74-106) Calcium Level 9.5 MG/DL (8.5-10.1) Total Bilirubin 1.4 MG/DL (0.2-1.0) Direct Bilirubin 0.3 MG/DL (0.0-0.3) Aspartate Amino Transf (AST/SGOT) 62 U/L (15-37) Alanine Aminotransferase (ALT/SGPT) 122 U/L (12-78) Alkaline Phosphatase 102 U/L (46-116) Lactate Dehydrogenase 344 U/L (81-234) Total Creatine Kinase 24 U/L (26-308) Creatine Kinase MB 0.6 NG/ML (0.0-3.6) Creatine Kinase MB Relative Index 2.5 Troponin I 0.000 ng/mL (0.000-0.056) Total Protein 8.7 G/DL (6.4-8.2) Albumin 4.1 G/DL (3.4-5.0) Globulin 4.6 g/dL Albumin/Globulin Ratio 0.9 (1.0-2.7) EKG Diagnostic Results Rate: normal Rhythm: NSR ST Segments: no acute changes ASA given to the pt in ED: No Rhythm Strip Diag. Results EP Interpretation: yes Rhythm: NSR, no PVC's, no ectopy Chest X-Ray Diagnostic Results Chest X-Ray Diagnostic Results : Chest X-Ray Ordered: Yes # of Views/Limited/Complete: 1 View Indication: Chest Pain EP Interpretation: Yes Interpretation: no consolidation Impression: No acute disease Electronically Signed by: Electronically signed by Martin Carrillo MD Last Vital Signs Date Time Temp Pulse Resp B/P (MAP) Pulse Ox O2 Delivery O2 Flow Rate FiO2 01/01/19 16:25 100.6 78 18 134/75 100 Room Air Status: improved Disposition: ADMITTED INPATIENT Condition: Serious Referrals: NOT CHOSEN IPA/,REFERRING (PCP) Martin Carrillo MD January 01, 2019 18:45
[2019-01-01] MEDS ORDERED: LORazepam Inj 2mg/ml 1ml IV PRN (19:45)
[2019-01-01 20:45] VITALS: BP 139/70
[2019-01-01] MEDS ORDERED: Zolpidem 5mg tab ORAL PRN (21:00)
[2019-01-01] MEDS ORDERED: Miralax 17gm pkt ORAL PRN (21:00)
[2019-01-01] MEDS: Heparin 5000 units/ml inj SUBQ SCH (21:30)
[2019-01-01] MEDS ORDERED: NKM (23:13)
[2019-01-02] VITALS (7 sets, daily range): BP systolic 112–135; BP diastolic 68–87
[2019-01-02] MEDS: Heparin 5000 units/ml inj SUBQ SCH ×2 (08:30→21:38)
[2019-01-02 08:41] LABS: BASOPHILS % (AUTO) 1.1 % (0.0-2.0); HEMATOCRIT 29.9 % (42.0-52.0); HEMOGLOBIN 9.6 G/DL (14.2-18.0); LYMPHOCYTES % (AUTO) 32.2 % (20.0-45.0); MEAN CORPUSCULAR VOLUME 81 FL (80-99); MONOCYTES % (AUTO) 9.9 % (1.0-10.0); NEUTROPHILS % (AUTO) 55.7 % (45.0-75.0); PLATELET COUNT 407 K/UL (150-450); RED BLOOD COUNT 3.69 M/UL (4.70-6.10); RED CELL DISTRIBUTION WIDTH 19.4 % (11.6-14.8); WHITE BLOOD COUNT 17.5 K/UL (4.8-10.8)
[2019-01-02 09:28] LABS: ALANINE AMINOTRANSFERASE 122 U/L (12-78); ALBUMIN 3.9 G/DL (3.4-5.0); ALBUMIN/GLOBULIN RATIO 0.9 (1.0-2.7); ALKALINE PHOSPHATASE 96 U/L (46-116); ANION GAP 9 mmol/L (5-15); ASPARTATE AMINO TRANSFERASE 59 U/L (15-37); BILIRUBIN,TOTAL 1.5 MG/DL (0.2-1.0); BLOOD UREA NITROGEN 6 mg/dL (7-18); CALCIUM 9.2 MG/DL (8.5-10.1); CARBON DIOXIDE 26 MMOL/L (21-32); CHLORIDE 100 MMOL/L (98-107); CREATININE 0.5 MG/DL (0.55-1.30); LACTATE DEHYDROGENASE 291 U/L (81-234); POTASSIUM 4.3 MMOL/L (3.5-5.1); SODIUM 135 MMOL/L (136-145)
[2019-01-02 09:36] LABS: BILIRUBIN,DIRECT < 0.1 MG/DL (0.0-0.3)
--- NOTE | 2019-01-02 10:46 | Diagnostic Imaging Report ---
Indication: Chest pain Comparison: 12/14/2018 A single view chest radiograph was obtained. Findings: There is some prominence of the pulmonary vascularity without overt CHF. The heart is stable. Right chest port noted. IMPRESSION: Some prominent vascularity without definite CHF. No significant change
--- NOTE | 2019-01-02 11:56 | Consultation ---
History of Present Illness General Date patient seen: January 02, 2019 Chief Complaint: Pain Present Illness HPI A 23-year-old male, with a history of sickle cell disease, presents with two- day increasing generalized pain. The patient came to [facility], diagnosed with sickle cell crisis, and admitted to medical floor for further treatment. Allergies: Coded Allergies: CAPSAICIN (Verified Allergy, Unknown, 11/23/18) CEFTRIAXONE (Verified Allergy, Unknown, 11/23/18) IOPAMIDOL (Unverified Allergy, Unknown, 01/01/19) Uncoded Allergies: IV CONTRAST (Allergy, Unknown, 01/01/19) CONTRAST (Adverse Reaction, Severe, Rash, 06/23/16) RADIOCONTRAST - RASH, ITCHING Medication History Scheduled Aspirin* (Aspirin*), 81 MG ORAL DAILY, (Reported) Folic Acid* (Folic Acid*), 1 MG ORAL DAILY, (Reported) Hydroxyurea (Hydroxyurea), 1,500 MG PO DAILY, (Reported) Linezolid* (Zyvox*), 600 MG ORAL EVERY 12 HOURS, (Reported) No Known Medications* (NKM - No Known Medications*), 0 ., (Reported) Oxycodone Hcl Er* (Oxycontin*), 20 MG ORAL EVERY 12 HOURS, (Reported) Scheduled PRN Fluticasone/Salmeterol (Advair Hfa 115-21 Mcg Inhaler), 2 PUFFS INH EVERY 12 HOURS PRN for Shortness of Breath, (Reported) Hydromorphone Hcl (Hydromorphone Hcl), 16 MG PO Q4HR PRN for Severe Breakthru Pain (>7), (Reported) Patient History Healthcare decision maker Resuscitation status Full Code Advanced Directive on File No Past Medical/Surgical History Past Medical/Surgical History: (1) Sickle cell disease (2) Port-A-Cath in place Review of Systems Constitutional: Reports: no symptoms Eye: Reports: no symptoms Physical Exam Lines, tubes and drains: peripheral, central line HEENT: normocephalic, atraumatic Neck: non-tender, supple Respiratory/Chest: chest wall non-tender, lungs clear Cardiovascular/Chest: normal rate Abdomen: normal bowel sounds Genitourinary/Rectal: normal genital exam Extremities: normal range of motion Last 24 Hour Vital Signs Date Time Temp Pulse Resp B/P (MAP) Pulse Ox O2 Delivery O2 Flow Rate FiO2 5/28/19 11:32 97.3 75 20 129/73 (91) 99 01/02/19 08:32 Room Air 01/02/19 07:54 98.2 62 19 117/77 (90) 97 01/02/19 05:13 98.0 01/02/19 04:00 98.0 73 19 135/68 (90) 96 01/02/19 00:00 98.4 70 17 119/69 (86) 98 01/01/19 20:54 Room Air 01/01/19 20:45 99.4 84 18 139/70 (93) 96 01/01/19 20:30 98.7 71 22 120/66 99 01/01/19 19:30 100.6 01/01/19 17:53 100.6 01/01/19 16:25 100.6 78 18 134/75 100 Room Air 01/01/19 16:09 100.6 94 16 130/80 (97) 98 Room Air Intake and Output 01/01/19 01/02/19 19:00 07:00 Intake Total 1000 ml 1635 ml Balance 1000 ml 1635 ml Intake Oral 960 ml IV Total 1000 ml 675 ml # Voids 4 Laboratory Tests Test 01/01/19 17:10 01/01/19 19:17 01/02/19 08:15 White Blood Count 20.8 K/UL (4.8-10.8) H 17.5 K/UL (4.8-10.8) H Red Blood Count 3.77 M/UL (4.70-6.10) L 3.69 M/UL (4.70-6.10) L Hemoglobin 9.8 G/DL (14.2-18.0) L 9.6 G/DL (14.2-18.0) L Hematocrit 30.3 % (42.0-52.0) L 29.9 % (42.0-52.0) L Mean Corpuscular Volume 80 FL (80-99) 81 FL (80-99) Mean Corpuscular Hemoglobin 26.0 PG (27.0-31.0) L 26.1 PG (27.0-31.0) L Mean Corpuscular Hemoglobin Concent 32.4 G/DL (32.0-36.0) 32.2 G/DL (32.0-36.0) Red Cell Distribution Width 18.2 % (11.6-14.8) H 19.4 % (11.6-14.8) H Platelet Count 456 K/UL (150-450) H 407 K/UL (150-450) Mean Platelet Volume 6.5 FL (6.5-10.1) 6.9 FL (6.5-10.1) Neutrophils (%) (Auto) % (45.0-75.0) 55.7 % (45.0-75.0) Lymphocytes (%) (Auto) % (20.0-45.0) 32.2 % (20.0-45.0) Monocytes (%) (Auto) % (1.0-10.0) 9.9 % (1.0-10.0) Eosinophils (%) (Auto) % (0.0-3.0) 1.0 % (0.0-3.0) Basophils (%) (Auto) % (0.0-2.0) 1.1 % (0.0-2.0) Differential Total Cells Counted 100 Neutrophils % (Manual) 76 % (45-75) H Lymphocytes % (Manual) 15 % (20-45) L Monocytes % (Manual) 8 % (1-10) Eosinophils % (Manual) 0 % (0-3) Basophils % (Manual) 1 % (0-2) Band Neutrophils 0 % (0-8) Nucleated Red Blood Cells 45 /100 WBC Platelet Estimate Increased H Platelet Morphology Normal Red Blood Cell Morphology Polychromasia 1+ Hypochromasia 2+ Anisocytosis 2+ Target Cells 2+ Reticulocyte Count 10.2 % (0.5-2.0) H Prothrombin Time 11.2 SEC (9.30-11.50) Prothromb Time International Ratio 1.1 (0.9-1.1) Activated Partial Thromboplast Time 27 SEC (23-33) Sodium Level 139 MMOL/L (136-145) 135 MMOL/L (136-145) L Potassium Level 3.9 MMOL/L (3.5-5.1) 4.3 MMOL/L (3.5-5.1) Chloride Level 102 MMOL/L (98-107) 100 MMOL/L (98-107) Carbon Dioxide Level 28 MMOL/L (21-32) 26 MMOL/L (21-32) Anion Gap 9 mmol/L (5-15) 9 mmol/L (5-15) Blood Urea Nitrogen 8 mg/dL (7-18) 6 mg/dL (7-18) L Creatinine 0.6 MG/DL (0.55-1.30) 0.5 MG/DL (0.55-1.30) L Estimat Glomerular Filtration Rate > 60 mL/min (>60) > 60 mL/min (>60) Glucose Level 119 MG/DL (74-106) H 100 MG/DL (74-106) Calcium Level 9.5 MG/DL (8.5-10.1) 9.2 MG/DL (8.5-10.1) Total Bilirubin 1.4 MG/DL (0.2-1.0) H 1.5 MG/DL (0.2-1.0) H Direct Bilirubin 0.3 MG/DL (0.0-0.3) < 0.1 MG/DL (0.0-0.3) Aspartate Amino Transf (AST/SGOT) 62 U/L (15-37) H 59 U/L (15-37) H Alanine Aminotransferase (ALT/SGPT) 122 U/L (12-78) H 122 U/L (12-78) H Alkaline Phosphatase 102 U/L (46-116) 96 U/L (46-116) Lactate Dehydrogenase 344 U/L (81-234) H 291 U/L (81-234) H Total Creatine Kinase 24 U/L (26-308) L Creatine Kinase MB 0.6 NG/ML (0.0-3.6) Creatine Kinase MB Relative Index 2.5 Troponin I 0.000 ng/mL (0.000-0.056) Total Protein 8.7 G/DL (6.4-8.2) H 8.3 G/DL (6.4-8.2) H Albumin 4.1 G/DL (3.4-5.0) 3.9 G/DL (3.4-5.0) Globulin 4.6 g/dL 4.4 g/dL Albumin/Globulin Ratio 0.9 (1.0-2.7) L 0.9 (1.0-2.7) L Lactic Acid Level 0.70 mmol/L (0.4-2.0) Height (Feet): 5 Height (Inches): 6.00 Weight (Pounds): 250 Medications Current Medications Medications (Trade) Dose Ordered Sig/Arianne Route PRN Reason Start Time Stop Time Status Last Admin Dose Admin Acetaminophen (Tylenol) 650 mg Q4H PRN ORAL fever 01/01/19 19:40 01/31/19 19:39 Dextrose (Dextrose 50%) 25 ml Q30M PRN IV Hypoglycemia 01/01/19 19:45 01/31/19 19:44 Dextrose (Dextrose 50%) 50 ml Q30M PRN IV Hypoglycemia 01/01/19 19:45 01/31/19 19:44 Diphenhydramine HCl (Benadryl) 50 mg Q6H PRN IVP Itching 01/02/19 11:45 02/01/19 11:44 UNV Heparin Sodium (Porcine) (Heparin 5000 units/ml) 5,000 units EVERY 12 HOURS SUBQ 01/01/19 21:00 01/31/19 20:59 01/01/19 21:30 Hydromorphone HCl (Dilaudid) 2 mg Q3H PRN IV pain 4-6 01/01/19 19:45 01/08/19 19:44 01/02/19 11:37 Hydromorphone HCl (Dilaudid) 3 mg Q3H PRN IVP For Pain 7-10 01/01/19 19:41 01/08/19 19:40 01/02/19 04:43 Lorazepam (Ativan 2mg/ml 1ml) 0.5 mg Q4H PRN IV For Anxiety 01/01/19 19:45 01/08/19 19:44 Ondansetron HCl (Zofran) 4 mg Q6H PRN IVP Nausea & Vomiting 01/01/19 19:40 01/31/19 19:39 Ondansetron HCl (Zofran) 4 mg Q6H PRN IVP Nausea & Vomiting 01/02/19 11:45 02/01/19 11:44 UNV Oxycodone HCl (OxyCONTIN) 30 mg EVERY 8 HOURS ORAL 01/02/19 14:00 01/09/19 13:59 UNV Polyethylene Glycol (Miralax) 17 gm HSPRN PRN ORAL Constipation 01/01/19 21:00 01/31/19 20:59 Sodium Chloride 1,000 ml @ 125 mls/hr Q8H IV 01/02/19 21:00 01/31/19 20:59 UNV Zolpidem Tartrate (Ambien) 5 mg HSPRN PRN ORAL Insomnia 01/01/19 21:00 01/08/19 20:59 Assessment/Plan Problem List: (1) Sickle cell crisis ICD Codes: D57.00 - Hb-SS disease with crisis, unspecified SNOMED: 332139413 (2) Port-A-Cath in place ICD Codes: Z95.828 - Presence of other vascular implants and grafts SNOMED: 571702771 Assessment/Plan: iv fluid supplemental O2 check LDH ID and hematology evaluation. Ranjith Caicedo MD January 02, 2019 11:56
[2019-01-02] MEDS: oxyCONTIN 10mg tab ORAL SCH ×2 (14:00→22:30)
[2019-01-02] MEDS: DiphenhydrAMINE 50mg/ml Inj IVP PRN ×2 (14:44→22:29)
--- NOTE | 2019-01-02 16:01 | Cardiology Report ---
APPROVED REPORT EKG Measurement Heart [id number] Normal sinus rhythm with sinus arrhythmia Normal ECG
--- NOTE | 2019-01-02 18:11 | Infectious Diseases Prog Note ---
Assessment/Plan Problems: (1) Leukocytosis Assessment & Plan: rule out sepsis , will start vancomycin and aztreonam pending blood culture (2) Fever Assessment & Plan: infection related VS sickle cell crises , continue wide spectrum antibiotics pending culture (3) Port-A-Cath in place Assessment & Plan: continue local care as needed (4) Sickle cell disease Assessment & Plan: with possible crises , continue hydration with pain management as per primary Subjective Allergies: Coded Allergies: CAPSAICIN (Verified Allergy, Unknown, 11/23/18) CEFTRIAXONE (Verified Allergy, Unknown, 11/23/18) IOPAMIDOL (Unverified Allergy, Unknown, 01/01/19) Uncoded Allergies: IV CONTRAST (Allergy, Unknown, 01/01/19) CONTRAST (Adverse Reaction, Severe, Rash, 06/23/16) RADIOCONTRAST - RASH, ITCHING Objective Vital Signs Last 24 Hour Vital Signs Date Time Temp Pulse Resp B/P (MAP) Pulse Ox O2 Delivery O2 Flow Rate FiO2 01/02/19 11:32 97.3 75 20 129/73 (91) 99 01/02/19 08:32 Room Air 01/02/19 07:54 98.2 62 19 117/77 (90) 97 01/02/19 05:13 98.0 01/02/19 04:00 98.0 73 19 135/68 (90) 96 01/02/19 00:00 98.4 70 17 119/69 (86) 98 01/01/19 20:54 Room Air 01/01/19 20:45 99.4 84 18 139/70 (93) 96 01/01/19 20:30 98.7 71 22 120/66 99 01/01/19 19:30 100.6 Height (Feet): 5 Height (Inches): 6.00 Weight (Pounds): 250 Laboratory Tests Test 01/01/19 19:17 01/02/19 08:15 Lactic Acid Level 0.70 mmol/L (0.4-2.0) White Blood Count 17.5 K/UL (4.8-10.8) H Red Blood Count 3.69 M/UL (4.70-6.10) L Hemoglobin 9.6 G/DL (14.2-18.0) L Hematocrit 29.9 % (42.0-52.0) L Mean Corpuscular Volume 81 FL (80-99) Mean Corpuscular Hemoglobin 26.1 PG (27.0-31.0) L Mean Corpuscular Hemoglobin Concent 32.2 G/DL (32.0-36.0) Red Cell Distribution Width 19.4 % (11.6-14.8) H Platelet Count 407 K/UL (150-450) Mean Platelet Volume 6.9 FL (6.5-10.1) Neutrophils (%) (Auto) 55.7 % (45.0-75.0) Lymphocytes (%) (Auto) 32.2 % (20.0-45.0) Monocytes (%) (Auto) 9.9 % (1.0-10.0) Eosinophils (%) (Auto) 1.0 % (0.0-3.0) Basophils (%) (Auto) 1.1 % (0.0-2.0) Sodium Level 135 MMOL/L (136-145) L Potassium Level 4.3 MMOL/L (3.5-5.1) Chloride Level 100 MMOL/L (98-107) Carbon Dioxide Level 26 MMOL/L (21-32) Anion Gap 9 mmol/L (5-15) Blood Urea Nitrogen 6 mg/dL (7-18) L Creatinine 0.5 MG/DL (0.55-1.30) L Estimat Glomerular Filtration Rate > 60 mL/min (>60) Glucose Level 100 MG/DL (74-106) Calcium Level 9.2 MG/DL (8.5-10.1) Total Bilirubin 1.5 MG/DL (0.2-1.0) H Direct Bilirubin < 0.1 MG/DL (0.0-0.3) Aspartate Amino Transf (AST/SGOT) 59 U/L (15-37) H Alanine Aminotransferase (ALT/SGPT) 122 U/L (12-78) H Alkaline Phosphatase 96 U/L (46-116) Lactate Dehydrogenase 291 U/L (81-234) H Total Protein 8.3 G/DL (6.4-8.2) H Albumin 3.9 G/DL (3.4-5.0) Globulin 4.4 g/dL Albumin/Globulin Ratio 0.9 (1.0-2.7) L Current Medications Medications (Trade) Dose Ordered Sig/Arianne Route PRN Reason Start Time Stop Time Status Last Admin Dose Admin Acetaminophen (Tylenol) 650 mg Q4H PRN ORAL fever 01/01/19 19:40 01/31/19 19:39 Dextrose (Dextrose 50%) 25 ml Q30M PRN IV Hypoglycemia 01/01/19 19:45 01/31/19 19:44 Dextrose (Dextrose 50%) 50 ml Q30M PRN IV Hypoglycemia 01/01/19 19:45 01/31/19 19:44 Diphenhydramine HCl (Benadryl) 50 mg Q6H PRN IVP Itching 01/02/19 11:45 02/01/19 11:44 01/02/19 14:44 Heparin Sodium (Porcine) (Heparin 5000 units/ml) 5,000 units EVERY 12 HOURS SUBQ 01/01/19 21:00 01/31/19 20:59 01/01/19 21:30 Hydromorphone HCl (Dilaudid) 2 mg Q3H PRN IV pain 4-6 01/01/19 19:45 01/08/19 19:44 01/02/19 14:45 Hydromorphone HCl (Dilaudid) 3 mg Q3H PRN IVP For Pain 7-10 01/01/19 19:41 01/08/19 19:40 01/02/19 04:43 Lorazepam (Ativan 2mg/ml 1ml) 0.5 mg Q4H PRN IV For Anxiety 01/01/19 19:45 01/08/19 19:44 Ondansetron HCl (Zofran) 4 mg Q6H PRN IVP Nausea & Vomiting 01/02/19 11:45 02/01/19 11:44 Oxycodone HCl (OxyCONTIN) 30 mg EVERY 8 HOURS ORAL 01/02/19 14:00 01/09/19 13:59 Polyethylene Glycol (Miralax) 17 gm HSPRN PRN ORAL Constipation 01/01/19 21:00 01/31/19 20:59 Sodium Chloride 1,000 ml @ 125 mls/hr Q8H IV 01/02/19 12:15 01/31/19 12:14 01/02/19 14:45 Vancomycin HCl (Vanco rx to dose) 1 ea DAILY PRN MISC Per rx protocol 01/02/19 18:15 02/01/19 18:14 UNV Zolpidem Tartrate (Ambien) 5 mg HSPRN PRN ORAL Insomnia 01/01/19 21:00 01/08/19 20:59 Emeka Solorzano M.D. January 02, 2019 18:11
--- NOTE | 2019-01-02 18:13 | History & Physical ---
History and Physical History & Physicial Dictated for Int Med-Dr Bearden no. [id number] Edilson Rubalcava MD January 02, 2019 18:13
[2019-01-02] MEDS ORDERED: Vancomycin 1.5gm Premix q24h IVPB SCH (19:00)
[2019-01-02] MEDS ORDERED: HYDROMORPHONE HC8 MG ORAL (21:00)
[2019-01-02] MEDS ORDERED: ADVAIR 250/501 PUFFS INH (21:00)
[2019-01-02] MEDS: Dyna-Hex 2% Top Sol 2oz TOPIC SCH (21:36)
[2019-01-02] MEDS: Aztreonam Inj 2 GM in D5W 110 ML IVPB SCH (21:37)
[2019-01-03] VITALS: BP 119/83
[2019-01-03] MEDS: Vancomycin 1.5gm Premix q24h IVPB SCH ×4 (01:40→22:49)
--- NOTE | 2019-01-03 02:15 | History and Physical Report ---
DATE OF ADMISSION: 01/01/2019 CHIEF COMPLAINT: The patient is a 23-year-old male with history of sickle cell disease presents with chief complaint of generalized pain and fatigue. HISTORY OF PRESENT ILLNESS: The patient was admitted to [facility] from 12/12/2018 to 12/21/2018. The patient was diagnosed with sepsis at that time. Blood cultures grew coagulase-negative Staphylococcus aureus. The patient was discharged home on oral Zyvox. The patient refused to have his Port-A-Cath removed at that time. The patient was discharged home on oral Zyvox. The patient states history of present illness began approximately one week ago. The patient began to experience bilateral lower extremity pain. The patient also complains of chest pain. The patient also complains of left arm pain. The patient presented to [facility] emergency room. The patient is admitted for sickle cell crisis. REVIEW OF SYSTEMS: CONSTITUTIONAL: The patient denies weight loss or weight gain. The patient denies fevers or chills. HEENT: The patient denies ear or throat pain. The patient denies headache. CARDIOVASCULAR: The patient complains of left-sided chest pain as above. The patient denies palpitations. ABDOMEN: The patient denies nausea, vomiting, diarrhea, or constipation. GENITOURINARY: The patient denies dysuria or increased frequency of urination. NEUROMUSCULAR: The patient complains of generalized weakness. The patient denies seizures. PAST MEDICAL HISTORY: Significant for: 1. Sickle cell disease. 2. Asthma. 3. Avascular necrosis of the left hip. PAST SURGICAL HISTORY: Significant for: 1. 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 2. Port-A-Cath placement in the right chest. CURRENT MEDICATIONS: 1. Aspirin 81 mg one tablet p.o. daily. 2. Advair 115/21 two puffs p.o. twice daily. 3. Folic acid 1 mg p.o. daily. 4. Dilaudid 4 mg 4 tablets p.o. q.4 hours p.r.n. 5. Hydroxyurea 15 mg p.o. daily. 6. OxyContin 20 mg p.o. twice daily. ALLERGIES: 1. Capsaicin. 2. Ceftriaxone. 3. Intravenous contrast dye. 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 The patient lives with his family. The patient denies tobacco or alcohol use. PHYSICAL EXAMINATION: VITAL SIGNS: Temperature 98.4, respirations 17, pulse 70, blood pressure 119/69. GENERAL: The patient is a well-developed and well-nourished male, in no apparent distress. HEENT: Eyes, pupils are equal and responsive to light and accommodation. Extraocular movements are intact. NECK: Supple without lymphadenopathy. CHEST: Lungs are clear to auscultation bilaterally without wheezes or rales. CARDIOVASCULAR: Regular rhythm and rate. S1 and S2 are normal without murmurs, rubs, or gallops. ABDOMEN: Soft, nontender, and nondistended. Positive bowel sounds. No evidence of hepatosplenomegaly. Currently, no rebound or guarding noted. EXTREMITIES: Negative for clubbing, cyanosis, or edema. RECTAL/GENITAL: Refused. NEUROLOGIC: Cranial nerves II through XII are grossly intact without focal deficits. Motor strength is 5/5 bilaterally. Deep tendon reflexes are 2+ plantar. LABORATORY STUDIES: WBC 20.8, hemoglobin 9.8, hematocrit 30.3, and platelets 456,000. Sodium 139, potassium 3.9, chloride 102, CO2 28, BUN 8, creatinine 0.6, and glucose 119. Total bilirubin elevated at 1.4. AST elevated at 62 and ALT elevated at 122. Troponin 0.0. ASSESSMENT: This is a 23-year-old white male. 1. Sickle cell crisis. 2. Sickle cell disease. 3. Asthma. 4. Avascular necrosis of the left hip. TREATMENT: 1. Sickle cell crisis/sickle cell disease. A Hematology/Oncology consultation was obtained with Dr. Kerline Davenport. The patient is currently receiving intravenous fluids and pain management intravenously. We will follow recommendations of Hematology/Oncology. 2. Asthma. Continue Advair as above. 3. Avascular necrosis of the hip. 4. Leukocytosis. Given the recent history of sepsis, an Infectious Disease consultation has been obtained with Dr. Solorzano. Blood cultures are pending. We will follow recommendations of Dr. Solorzano. Edilson Rubalcava M.D. DR: JOSELINE JOB#: [id number] CC:
--- NOTE | 2019-01-03 02:30 | Consultation ---
DATE OF CONSULTATION: 01/02/2019 INFECTIOUS DISEASE CONSULTATION CONSULTING PHYSICIAN: Emeka Solorzano M.D. REQUESTING PHYSICIAN: Jersey Bearden M.D. REASON FOR CONSULTATION: Leukocytosis with fever, possible sepsis. Recommendation for antibiotics therapy in a patient with multiple allergies to antibiotics. HISTORY OF PRESENT ILLNESS: The patient is a 23-year-old male with past medical history of sickle cell disease, who had been hospitalized on multiple occasion due to sickle cell crisis, was brought into the hospital via paramedics from home due to generalized weakness, body ache, and possible sickle cell crises. His pain was described as 10/10. No radiation. Denied any fever or chills. No cough or shortness of breath. No nausea, vomiting, or diarrhea. The patient has been compliant with his medication. Recently, he had bacteremia which he was treated for with oral Zyvox and he finished a total of two weeks course of antibiotics treatment as an outpatient. The patient had extensive workup in the emergency room revealed significant leukocytosis concerning for sepsis, so he received Levaquin and Infectious Disease consultation was requested for antibiotics treatment and further management. REVIEW OF SYSTEMS: A 14-point of system reviewed were all negative apart from the one I mentioned above in my History and Physical. PAST MEDICAL HISTORY: Significant for sickle cell disease, sickle cell anemia, and asthma. PAST SURGICAL HISTORY: Negative. ALLERGIES: He is allergic to capsaicin, ceftriaxone, iopamidol, and intravenous contrast. FAMILY HISTORY: Not contributory. SOCIAL HISTORY: He lives at home with family. Unemployed. Denied using any drugs, tobacco, or alcohol. PHYSICAL EXAMINATION: VITAL SIGNS: Temperature 97.3 pulse 75, respirations 20, blood pressure 129/73, and saturation 99% on room air. GENERAL: A young male, lying in bed, awake, alert, oriented x3, not in acute distress. Eating his lunch. HEENT: Normocephalic and atraumatic. Pupils are reactive to light. Pale sclerae. Moist oral mucosa. No exudate or thrush. NECK: Supple. No lymphadenopathy. CARDIOVASCULAR: Regular rate and rhythm. No murmur or gallop. LUNGS: Clear bilaterally. No wheezing or rhonchi. Normal breathing sounds. CHEST: He had right upper chest Port-A-Cath site intact with no redness, drainage, or erythema. ABDOMEN: Soft, obese, nontender, and nondistended. Normal bowel sounds. No hepatosplenomegaly or ascites. EXTREMITY: No edema or cyanosis. No clubbing. SKIN: No rash. No hives. LABORATORY DATA: Laboratories showed white count of 17.5, hemoglobin of 9.6, and platelet count of 407,000. BUN of 6 and creatinine of 0.5. AST of 59 and ALT of 122. IMAGING: Chest x-ray showed prominent vascularity without definite congestive heart failure. No significant change. ASSESSMENT AND RECOMMENDATION: 1. Leukocytosis rule out sepsis. We will start the patient on vancomycin and aztreonam. Empiric coverage pending blood culture results. We will deescalate antibiotics based on his culture. Continue hydration. Monitor WBC. 2. Fever. Suspect infection versus sickle cell crisis. Continue wide-spectrum antibiotics pending culture and Tylenol as needed. 3. Port-A-Cath in place. Continue local care as needed with sterile technique when accessing the Port-A-Cath. 4. Sickle cell disease, suspect crisis with pain, fever, and leukocytosis. Continue hydration and pain management and antibiotics coverage for now pending culture. Thank you for the consult. ID will continue to follow. Emeka Solorzano M.D. DR: RAMÍREZ JOB#: [id number] CC:
[2019-01-03 04:00] VITALS: BP 137/61
[2019-01-03 05:48] LABS: HEMATOCRIT 28.5 % (42.0-52.0); HEMOGLOBIN 9.2 G/DL (14.2-18.0); MEAN CORPUSCULAR VOLUME 83 FL (80-99); PLATELET COUNT 367 K/UL (150-450); RED BLOOD COUNT 3.44 M/UL (4.70-6.10); RED CELL DISTRIBUTION WIDTH 20.2 % (11.6-14.8)
[2019-01-03 05:53] LABS: WHITE BLOOD COUNT 23.1 K/UL (4.8-10.8)
[2019-01-03 06:02] LABS: ANION GAP 6 mmol/L (5-15); BLOOD UREA NITROGEN 6 mg/dL (7-18); CALCIUM 8.9 MG/DL (8.5-10.1); CARBON DIOXIDE 29 MMOL/L (21-32); CHLORIDE 103 MMOL/L (98-107); CREATININE 0.6 MG/DL (0.55-1.30); SODIUM 138 MMOL/L (136-145)
[2019-01-03] MEDS: oxyCONTIN 10mg tab ORAL SCH ×3 (06:02→22:50)
[2019-01-03] MEDS: Aztreonam Inj 2 GM in D5W 110 ML IVPB SCH ×3 (06:02→22:00)
[2019-01-03 07:52] VITALS: BP 129/68
[2019-01-03] MEDS: Heparin 5000 units/ml inj SUBQ SCH ×3 (08:10→22:55)
[2019-01-03] MEDS: DiphenhydrAMINE 50mg/ml Inj IVP PRN ×3 (08:14→22:01)
[2019-01-03 11:51] VITALS: BP 109/69
--- NOTE | 2019-01-03 12:15 | Internal Med Progress Note ---
Subjective Date of Service: January 03, 2019 Physician Name Rubalcava,Edilson Attending Physician Jersey Bearden MD Current Medications Medications (Trade) Dose Ordered Sig/Arianne Route PRN Reason Start Time Stop Time Status Last Admin Dose Admin Acetaminophen (Tylenol) 650 mg Q4H PRN ORAL fever 01/01/19 19:40 01/31/19 19:39 Aztreonam 2 gm/ Dextrose 110 ml @ 220 mls/hr Q8HR IVPB 01/02/19 22:00 01/09/19 21:59 01/03/19 06:02 Chlorhexidine Gluconate (Jihan-Hex 2%) 1 applic DAILY@2000 TOPIC 01/02/19 20:00 02/01/19 19:59 01/02/19 21:36 Dextrose (Dextrose 50%) 25 ml Q30M PRN IV Hypoglycemia 01/01/19 19:45 01/31/19 19:44 Dextrose (Dextrose 50%) 50 ml Q30M PRN IV Hypoglycemia 01/01/19 19:45 01/31/19 19:44 Diphenhydramine HCl (Benadryl) 50 mg Q6H PRN IVP Itching 01/02/19 11:45 02/01/19 11:44 01/03/19 08:14 Heparin Sodium (Porcine) (Heparin 5000 units/ml) 5,000 units EVERY 12 HOURS SUBQ 01/01/19 21:00 01/31/19 20:59 01/02/19 21:38 Hydromorphone HCl (Dilaudid) 2 mg Q3H PRN IV pain 4-6 01/01/19 19:45 01/08/19 19:44 01/03/19 12:07 Hydromorphone HCl (Dilaudid) 3 mg Q3H PRN IVP For Pain 7-10 01/01/19 19:41 01/08/19 19:40 01/02/19 04:43 Lorazepam (Ativan 2mg/ml 1ml) 0.5 mg Q4H PRN IV For Anxiety 01/01/19 19:45 01/08/19 19:44 Ondansetron HCl (Zofran) 4 mg Q6H PRN IVP Nausea & Vomiting 01/02/19 11:45 02/01/19 11:44 Oxycodone HCl (OxyCONTIN) 30 mg EVERY 8 HOURS ORAL 01/02/19 14:00 01/09/19 13:59 01/03/19 06:02 Polyethylene Glycol (Miralax) 17 gm HSPRN PRN ORAL Constipation 01/01/19 21:00 01/31/19 20:59 Sodium Chloride 1,000 ml @ 150 mls/hr Q6H40M IV 01/03/19 08:03 02/02/19 08:02 01/03/19 08:14 Vancomycin HCl (Vanco rx to dose) 1 ea DAILY PRN MISC Per rx protocol 01/02/19 18:15 02/01/19 18:14 Vancomycin HCl/ Dextrose 275 ml @ 137.5 mls/ hr Q8H IVPB 01/03/19 01:00 01/08/19 00:59 01/03/19 08:14 Zolpidem Tartrate (Ambien) 5 mg HSPRN PRN ORAL Insomnia 01/01/19 21:00 01/08/19 20:59 Allergies: Coded Allergies: CAPSAICIN (Verified Allergy, Unknown, 11/23/18) CEFTRIAXONE (Verified Allergy, Unknown, 11/23/18) IOPAMIDOL (Unverified Allergy, Unknown, 01/01/19) Uncoded Allergies: IV CONTRAST (Allergy, Unknown, 01/01/19) CONTRAST (Adverse Reaction, Severe, Rash, 06/23/16) RADIOCONTRAST - RASH, ITCHING ROS Limited/Unobtainable: No Constitutional: Reports: no symptoms HEENT: Reports: no symptoms Cardiovascular: Reports: no symptoms Respiratory: Reports: no symptoms Gastrointestinal/Abdominal: Reports: no symptoms Genitourinary: Reports: no symptoms Neurologic/Psychiatric: Reports: no symptoms Subjective 23 YO M admitted with sickle cell crisis and leukocytosis. Cover for Int Franky- Dr Bearden Objective Last Vital Signs Date Time Temp Pulse Resp B/P (MAP) Pulse Ox O2 Delivery O2 Flow Rate FiO2 01/03/19 11:51 98.5 60 17 109/69 (82) 100 01/03/19 07:15 Room Air Laboratory Tests Test 01/03/19 05:30 White Blood Count 23.1 K/UL (4.8-10.8) *H Red Blood Count 3.44 M/UL (4.70-6.10) L Hemoglobin 9.2 G/DL (14.2-18.0) L Hematocrit 28.5 % (42.0-52.0) L Mean Corpuscular Volume 83 FL (80-99) Mean Corpuscular Hemoglobin 26.8 PG (27.0-31.0) L Mean Corpuscular Hemoglobin Concent 32.3 G/DL (32.0-36.0) Red Cell Distribution Width 20.2 % (11.6-14.8) H Platelet Count 367 K/UL (150-450) Mean Platelet Volume 6.6 FL (6.5-10.1) Neutrophils (%) (Auto) % (45.0-75.0) Lymphocytes (%) (Auto) % (20.0-45.0) Monocytes (%) (Auto) % (1.0-10.0) Eosinophils (%) (Auto) % (0.0-3.0) Basophils (%) (Auto) % (0.0-2.0) Differential Total Cells Counted 100 Neutrophils % (Manual) 28 % (45-75) L Lymphocytes % (Manual) 63 % (20-45) H Monocytes % (Manual) 5 % (1-10) Eosinophils % (Manual) 3 % (0-3) Basophils % (Manual) 1 % (0-2) Band Neutrophils 0 % (0-8) Nucleated Red Blood Cells 61 /100 WBC Platelet Estimate Adequate Platelet Morphology Normal Hypochromasia 2+ Anisocytosis 3+ Spherocytes 2+ Sodium Level 138 MMOL/L (136-145) Potassium Level 4.0 MMOL/L (3.5-5.1) Chloride Level 103 MMOL/L (98-107) Carbon Dioxide Level 29 MMOL/L (21-32) Anion Gap 6 mmol/L (5-15) Blood Urea Nitrogen 6 mg/dL (7-18) L Creatinine 0.6 MG/DL (0.55-1.30) Estimat Glomerular Filtration Rate > 60 mL/min (>60) Glucose Level 99 MG/DL (74-106) Calcium Level 8.9 MG/DL (8.5-10.1) Lactate Dehydrogenase 283 U/L (81-234) H Microbiology Date/Time Source Procedure Growth Status 01/01/19 19:14 Blood Blood Culture - Preliminary NO GROWTH AFTER 24 HOURS Resulted 01/01/19 19:04 Blood Blood Culture - Preliminary NO GROWTH AFTER 24 HOURS Resulted Intake and Output 01/02/19 01/03/19 19:00 07:00 Intake Total 480 ml 1220 ml Output Total 800 ml Balance -320 ml 1220 ml Intake Oral 480 ml 360 ml IV Total 860 ml Output Urine Total 800 ml # Voids 2 3 Objective PHYSICAL EXAMINATION: GENERAL: The patient is a well-developed and well-nourished male, in no apparent distress. HEENT: Eyes, pupils are equal and responsive to light and accommodation. Extraocular movements are intact. NECK: Supple without lymphadenopathy. CHEST: Lungs are clear to auscultation bilaterally without wheezes or rales. CARDIOVASCULAR: Regular rhythm and rate. S1 and S2 are normal without murmurs, rubs, or gallops. ABDOMEN: Soft, nontender, and nondistended. Positive bowel sounds. No evidence of hepatosplenomegaly. Currently, no rebound or guarding noted. EXTREMITIES: Negative for clubbing, cyanosis, or edema. RECTAL/GENITAL: Refused. NEUROLOGIC: Cranial nerves II through XII are grossly intact without focal deficits. Motor strength is 5/5 bilaterally. Deep tendon reflexes are 2+ plantar. Assessment/Plan Assessment/Plan ASSESSMENT: This is a 23-year-old white male. 1. Sickle cell crisis. 2. Sickle cell disease. 3. Asthma. 4. Avascular necrosis of the left hip. 5. Leukocytosis; R/O sepsis TREATMENT: 1. Sickle cell crisis/sickle cell disease. A Hematology/Oncology consultation was obtained with Dr. Kerline Davenport. The patient is currently receiving intravenous fluids and pain management intravenously. We will follow recommendations of Hematology/Oncology. 2. Asthma. Continue Advair as above. 3. Avascular necrosis of the hip. 4. Leukocytosis. Given the recent history of sepsis, an Infectious Disease consultation has been obtained with Dr. Solorzano. Blood cultures are pending. Abx=vancomycin and aztreonam per Edilson Dennis MD January 03, 2019 12:14
--- NOTE | 2019-01-03 13:17 | Pulmonology Progress Note ---
Assessment/Plan Problems: (1) Sickle cell crisis (2) Port-A-Cath in place Assessment/Plan barrett cultures iv fluid at 150 cc/hour check LDH Subjective ROS Limited/Unobtainable: No Interval Events: minimally better, Allergies: Coded Allergies: CAPSAICIN (Verified Allergy, Unknown, 11/23/18) CEFTRIAXONE (Verified Allergy, Unknown, 11/23/18) IOPAMIDOL (Unverified Allergy, Unknown, 01/01/19) Uncoded Allergies: IV CONTRAST (Allergy, Unknown, 01/01/19) CONTRAST (Adverse Reaction, Severe, Rash, 06/23/16) RADIOCONTRAST - RASH, ITCHING Objective Last 24 Hour Vital Signs Date Time Temp Pulse Resp B/P (MAP) Pulse Ox O2 Delivery O2 Flow Rate FiO2 01/03/19 11:51 98.5 60 17 109/69 (82) 100 01/03/19 07:52 97.9 69 17 129/68 (88) 100 01/03/19 07:15 Room Air 01/03/19 06:32 98.3 01/03/19 05:29 98.3 01/03/19 04:00 97.5 55 18 137/61 (86) 99 01/03/19 00:00 98.3 80 20 119/83 (95) 99 01/02/19 21:00 Room Air 01/02/19 20:00 98.5 71 18 112/85 (94) 99 01/02/19 17:00 97.3 74 19 125/87 (100) 98 Intake and Output 01/02/19 01/03/19 19:00 07:00 Intake Total 480 ml 1220 ml Output Total 800 ml Balance -320 ml 1220 ml Intake Oral 480 ml 360 ml IV Total 860 ml Output Urine Total 800 ml # Voids 2 3 General Appearance: WD/WN HEENT: normocephalic, atraumatic Respiratory/Chest: chest wall non-tender, lungs clear Cardiovascular: normal peripheral pulses, normal rate Abdomen: normal bowel sounds, no organomegaly Extremities: no clubbing Skin: no rash Microbiology Date/Time Source Procedure Growth Status 01/01/19 19:14 Blood Blood Culture - Preliminary NO GROWTH AFTER 24 HOURS Resulted 01/01/19 19:04 Blood Blood Culture - Preliminary NO GROWTH AFTER 24 HOURS Resulted Laboratory Tests 01/03/19 05:30: White Blood Count 23.1*H, Red Blood Count 3.44L, Hemoglobin 9.2L, Hematocrit 28.5L, Mean Corpuscular Volume 83, Mean Corpuscular Hemoglobin 26.8L, Mean Corpuscular Hemoglobin Concent 32.3, Red Cell Distribution Width 20.2H, Platelet Count 367, Mean Platelet Volume 6.6, Neutrophils (%) (Auto) , Lymphocytes (%) (Auto) , Monocytes (%) (Auto) , Eosinophils (%) (Auto) , Basophils (%) (Auto) , Differential Total Cells Counted 100, Neutrophils % ( Manual) 28L, Lymphocytes % (Manual) 63H, Monocytes % (Manual) 5, Eosinophils % ( Manual) 3, Basophils % (Manual) 1, Band Neutrophils 0, Nucleated Red Blood Cells 61, Platelet Estimate Adequate, Platelet Morphology Normal, Hypochromasia 2+, Anisocytosis 3+, Spherocytes 2+, Sodium Level 138, Potassium Level 4.0, Chloride Level 103, Carbon Dioxide Level 29, Anion Gap 6, Blood Urea Nitrogen 6L , Creatinine 0.6, Estimat Glomerular Filtration Rate > 60, Glucose Level 99, Calcium Level 8.9, Lactate Dehydrogenase 283H Current Medications Medications (Trade) Dose Ordered Sig/Arianne Route PRN Reason Start Time Stop Time Status Last Admin Dose Admin Acetaminophen (Tylenol) 650 mg Q4H PRN ORAL fever 01/01/19 19:40 01/31/19 19:39 Aztreonam 2 gm/ Dextrose 110 ml @ 220 mls/hr Q8HR IVPB 01/02/19 22:00 01/09/19 21:59 01/03/19 06:02 Chlorhexidine Gluconate (Jihan-Hex 2%) 1 applic DAILY@2000 TOPIC 01/02/19 20:00 02/01/19 19:59 01/02/19 21:36 Dextrose (Dextrose 50%) 25 ml Q30M PRN IV Hypoglycemia 01/01/19 19:45 01/31/19 19:44 Dextrose (Dextrose 50%) 50 ml Q30M PRN IV Hypoglycemia 01/01/19 19:45 01/31/19 19:44 Diphenhydramine HCl (Benadryl) 50 mg Q6H PRN IVP Itching 01/02/19 11:45 02/01/19 11:44 01/03/19 08:14 Heparin Sodium (Porcine) (Heparin 5000 units/ml) 5,000 units EVERY 12 HOURS SUBQ 01/01/19 21:00 01/31/19 20:59 01/02/19 21:38 Hydromorphone HCl (Dilaudid) 2 mg Q3H PRN IV pain 4-6 01/01/19 19:45 01/08/19 19:44 01/03/19 12:07 Hydromorphone HCl (Dilaudid) 3 mg Q3H PRN IVP For Pain 7-10 01/01/19 19:41 01/08/19 19:40 01/02/19 04:43 Lorazepam (Ativan 2mg/ml 1ml) 0.5 mg Q4H PRN IV For Anxiety 01/01/19 19:45 01/08/19 19:44 Ondansetron HCl (Zofran) 4 mg Q6H PRN IVP Nausea & Vomiting 01/02/19 11:45 02/01/19 11:44 Oxycodone HCl (OxyCONTIN) 30 mg EVERY 8 HOURS ORAL 01/02/19 14:00 01/09/19 13:59 01/03/19 06:02 Polyethylene Glycol (Miralax) 17 gm HSPRN PRN ORAL Constipation 01/01/19 21:00 01/31/19 20:59 Sodium Chloride 1,000 ml @ 150 mls/hr Q6H40M IV 01/03/19 08:03 02/02/19 08:02 01/03/19 08:14 Vancomycin HCl (Vanco rx to dose) 1 ea DAILY PRN MISC Per rx protocol 01/02/19 18:15 02/01/19 18:14 Vancomycin HCl/ Dextrose 275 ml @ 137.5 mls/ hr Q8H IVPB 01/03/19 01:00 01/08/19 00:59 01/03/19 08:14 Zolpidem Tartrate (Ambien) 5 mg HSPRN PRN ORAL Insomnia 01/01/19 21:00 01/08/19 20:59 Ranjith Caicedo MD January 03, 2019 13:17
--- NOTE | 2019-01-03 13:18 | Consultation ---
History of Present Illness General Chief Complaint: Pain Present Illness Allergies: Coded Allergies: CAPSAICIN (Verified Allergy, Unknown, 11/23/18) CEFTRIAXONE (Verified Allergy, Unknown, 11/23/18) IOPAMIDOL (Unverified Allergy, Unknown, 01/01/19) Uncoded Allergies: IV CONTRAST (Allergy, Unknown, 01/01/19) CONTRAST (Adverse Reaction, Severe, Rash, 06/23/16) RADIOCONTRAST - RASH, ITCHING Medication History Scheduled Aspirin* (Aspirin*), 81 MG ORAL DAILY, (Reported) Fluticasone/Salmeterol (Advair 250-50 Diskus), 1 PUFF INH EVERY 12 HOURS, ( Reported) Folic Acid* (Folic Acid*), 1 MG ORAL DAILY, (Reported) Hydroxyurea (Hydroxyurea), 1,500 MG PO DAILY, (Reported) Linezolid* (Zyvox*), 600 MG ORAL EVERY 12 HOURS, (Reported) No Known Medications* (NKM - No Known Medications*), 0 ., (Reported) Oxycodone Hcl Er* (Oxycontin*), 20 MG ORAL EVERY 12 HOURS, (Reported) Scheduled PRN Hydromorphone Hcl (Hydromorphone Hcl), 8 MG ORAL EVERY 3 HOURS PRN for For Pain, (Reported) Discontinued Medications Fluticasone/Salmeterol (Advair Hfa 115-21 Mcg Inhaler), 2 PUFFS INH EVERY 12 HOURS PRN for Shortness of Breath, (Reported) Discontinued Reason: Prescription changed Hydromorphone Hcl (Hydromorphone Hcl), 16 MG PO Q4HR PRN for Severe Breakthru Pain (>7), (Reported) Discontinued Reason: Prescription changed Patient History Healthcare decision maker Resuscitation status Full Code Advanced Directive on File No Physical Exam Last 24 Hour Vital Signs Date Time Temp Pulse Resp B/P (MAP) Pulse Ox O2 Delivery O2 Flow Rate FiO2 01/03/19 11:51 98.5 60 17 109/69 (82) 100 01/03/19 07:52 97.9 69 17 129/68 (88) 100 01/03/19 07:15 Room Air 01/03/19 06:32 98.3 01/03/19 05:29 98.3 01/03/19 04:00 97.5 55 18 137/61 (86) 99 01/03/19 00:00 98.3 80 20 119/83 (95) 99 01/02/19 21:00 Room Air 01/02/19 20:00 98.5 71 18 112/85 (94) 99 01/02/19 17:00 97.3 74 19 125/87 (100) 98 Intake and Output 01/02/19 01/03/19 19:00 07:00 Intake Total 480 ml 1220 ml Output Total 800 ml Balance -320 ml 1220 ml Intake Oral 480 ml 360 ml IV Total 860 ml Output Urine Total 800 ml # Voids 2 3 Laboratory Tests Test 01/03/19 05:30 White Blood Count 23.1 K/UL (4.8-10.8) *H Red Blood Count 3.44 M/UL (4.70-6.10) L Hemoglobin 9.2 G/DL (14.2-18.0) L Hematocrit 28.5 % (42.0-52.0) L Mean Corpuscular Volume 83 FL (80-99) Mean Corpuscular Hemoglobin 26.8 PG (27.0-31.0) L Mean Corpuscular Hemoglobin Concent 32.3 G/DL (32.0-36.0) Red Cell Distribution Width 20.2 % (11.6-14.8) H Platelet Count 367 K/UL (150-450) Mean Platelet Volume 6.6 FL (6.5-10.1) Neutrophils (%) (Auto) % (45.0-75.0) Lymphocytes (%) (Auto) % (20.0-45.0) Monocytes (%) (Auto) % (1.0-10.0) Eosinophils (%) (Auto) % (0.0-3.0) Basophils (%) (Auto) % (0.0-2.0) Differential Total Cells Counted 100 Neutrophils % (Manual) 28 % (45-75) L Lymphocytes % (Manual) 63 % (20-45) H Monocytes % (Manual) 5 % (1-10) Eosinophils % (Manual) 3 % (0-3) Basophils % (Manual) 1 % (0-2) Band Neutrophils 0 % (0-8) Nucleated Red Blood Cells 61 /100 WBC Platelet Estimate Adequate Platelet Morphology Normal Hypochromasia 2+ Anisocytosis 3+ Spherocytes 2+ Sodium Level 138 MMOL/L (136-145) Potassium Level 4.0 MMOL/L (3.5-5.1) Chloride Level 103 MMOL/L (98-107) Carbon Dioxide Level 29 MMOL/L (21-32) Anion Gap 6 mmol/L (5-15) Blood Urea Nitrogen 6 mg/dL (7-18) L Creatinine 0.6 MG/DL (0.55-1.30) Estimat Glomerular Filtration Rate > 60 mL/min (>60) Glucose Level 99 MG/DL (74-106) Calcium Level 8.9 MG/DL (8.5-10.1) Lactate Dehydrogenase 283 U/L (81-234) H Height (Feet): 5 Height (Inches): 6.00 Weight (Pounds): 249 Medications Current Medications Medications (Trade) Dose Ordered Sig/Arianne Route PRN Reason Start Time Stop Time Status Last Admin Dose Admin Acetaminophen (Tylenol) 650 mg Q4H PRN ORAL fever 01/01/19 19:40 01/31/19 19:39 Aztreonam 2 gm/ Dextrose 110 ml @ 220 mls/hr Q8HR IVPB 01/02/19 22:00 01/09/19 21:59 01/03/19 06:02 Chlorhexidine Gluconate (Jihan-Hex 2%) 1 applic DAILY@2000 TOPIC 01/02/19 20:00 02/01/19 19:59 01/02/19 21:36 Dextrose (Dextrose 50%) 25 ml Q30M PRN IV Hypoglycemia 01/01/19 19:45 01/31/19 19:44 Dextrose (Dextrose 50%) 50 ml Q30M PRN IV Hypoglycemia 01/01/19 19:45 01/31/19 19:44 Diphenhydramine HCl (Benadryl) 50 mg Q6H PRN IVP Itching 01/02/19 11:45 02/01/19 11:44 01/03/19 08:14 Heparin Sodium (Porcine) (Heparin 5000 units/ml) 5,000 units EVERY 12 HOURS SUBQ 01/01/19 21:00 01/31/19 20:59 01/02/19 21:38 Hydromorphone HCl (Dilaudid) 2 mg Q3H PRN IV pain 4-6 01/01/19 19:45 01/08/19 19:44 01/03/19 12:07 Hydromorphone HCl (Dilaudid) 3 mg Q3H PRN IVP For Pain 7-10 01/01/19 19:41 01/08/19 19:40 01/02/19 04:43 Lorazepam (Ativan 2mg/ml 1ml) 0.5 mg Q4H PRN IV For Anxiety 01/01/19 19:45 01/08/19 19:44 Ondansetron HCl (Zofran) 4 mg Q6H PRN IVP Nausea & Vomiting 01/02/19 11:45 02/01/19 11:44 Oxycodone HCl (OxyCONTIN) 30 mg EVERY 8 HOURS ORAL 01/02/19 14:00 01/09/19 13:59 01/03/19 06:02 Polyethylene Glycol (Miralax) 17 gm HSPRN PRN ORAL Constipation 01/01/19 21:00 01/31/19 20:59 Sodium Chloride 1,000 ml @ 150 mls/hr Q6H40M IV 01/03/19 08:03 02/02/19 08:02 01/03/19 08:14 Vancomycin HCl (Vanco rx to dose) 1 ea DAILY PRN MISC Per rx protocol 01/02/19 18:15 02/01/19 18:14 Vancomycin HCl/ Dextrose 275 ml @ 137.5 mls/ hr Q8H IVPB 01/03/19 01:00 01/08/19 00:59 01/03/19 08:14 Zolpidem Tartrate (Ambien) 5 mg HSPRN PRN ORAL Insomnia 01/01/19 21:00 01/08/19 20:59 Assessment/Plan Assessment/Plan: Hematology/Oncology Consultation Requesting MD: Edilson Rubalcava Date of Service: 01/03/19 Reason for consultation: Sickle cell disease and Anemia HISTORY OF PRESENT ILLNESS: A 23-year-old male admitted yesterday complaining of body pain for two days. He had history of sickle cell disease and every couple of months, he is hospitalized with sick cell crisis. He had leukocytosis of 14.4 at the admission, currently resolved. Hematology/Oncology was consulted for Sickle cell disease and Anemia, hg 8.8, seen by pain management and heme consulted. PAST MEDICAL HISTORY: Significant for asthma and sickle cell. PAST SURGICAL HISTORY: Splenectomy. ALLERGIES: Rocephin, capsaicin, contrast. MEDICATIONS: Aspirin, folic acid, hydroxyurea, and OxyContin. FAMILY HISTORY: Does have history of sickle cell. SOCIAL HISTORY: Denies history of smoking, alcohol, or illicit drugs. REVIEW OF SYSTEMS: HEENT: Denies headaches. PULMONARY: Denies shortness of breath. Denies cough. CARDIOVASCULAR: Does have chest pain for two days. Denies orthopnea. GASTROINTESTINAL: Denies nausea, vomiting, diarrhea. EXTREMITIES: Reports bilateral knee pain as well as chest pain going on for 2 days. CENTRAL NERVOUS SYSTEMS: Denies change in vision or speech pattern. PHYSICAL EXAMINATION: VITAL SIGNS: have been reviewed HEENT: PERRLA. NECK: Supple. No lymphadenopathy. CHEST: Clear to auscultation CARDIOVASCULAR: Regular rate and rhythm. No murmurs or extra sounds. ABDOMEN: Soft, nontender, nondistended. No organomegaly. EXTREMITIES: No edema. Moves all four extremities. NEUROLOGIC: Sensory intact to touch. Reflexes are equal on both sides. Moves all four extremities. LABORATORY DATA: Last 24 Hour Vital Signs Date Time Temp Pulse Resp B/P (MAP) Pulse Ox O2 Delivery O2 Flow Rate FiO2 01/03/19 11:51 98.5 60 17 109/69 (82) 100 01/03/19 07:52 97.9 69 17 129/68 (88) 100 01/03/19 07:15 Room Air 01/03/19 06:32 98.3 01/03/19 05:29 98.3 01/03/19 04:00 97.5 55 18 137/61 (86) 99 01/03/19 00:00 98.3 80 20 119/83 (95) 99 01/02/19 21:00 Room Air 01/02/19 20:00 98.5 71 18 112/85 (94) 99 01/02/19 17:00 97.3 74 19 125/87 (100) 98 Current Medications Medications (Trade) Dose Ordered Sig/Arianne Route PRN Reason Start Time Stop Time Status Last Admin Dose Admin Acetaminophen (Tylenol) 650 mg Q4H PRN ORAL fever 01/01/19 19:40 01/31/19 19:39 Aztreonam 2 gm/ Dextrose 110 ml @ 220 mls/hr Q8HR IVPB 01/02/19 22:00 01/09/19 21:59 01/03/19 06:02 Chlorhexidine Gluconate (Jihan-Hex 2%) 1 applic DAILY@2000 TOPIC 01/02/19 20:00 02/01/19 19:59 01/02/19 21:36 Dextrose (Dextrose 50%) 25 ml Q30M PRN IV Hypoglycemia 01/01/19 19:45 01/31/19 19:44 Dextrose (Dextrose 50%) 50 ml Q30M PRN IV Hypoglycemia 01/01/19 19:45 01/31/19 19:44 Diphenhydramine HCl (Benadryl) 50 mg Q6H PRN IVP Itching 01/02/19 11:45 02/01/19 11:44 01/03/19 08:14 Heparin Sodium (Porcine) (Heparin 5000 units/ml) 5,000 units EVERY 12 HOURS SUBQ 01/01/19 21:00 01/31/19 20:59 01/02/19 21:38 Hydromorphone HCl (Dilaudid) 2 mg Q3H PRN IV pain 4-6 01/01/19 19:45 01/08/19 19:44 01/03/19 12:07 Hydromorphone HCl (Dilaudid) 3 mg Q3H PRN IVP For Pain 7-10 01/01/19 19:41 01/08/19 19:40 01/02/19 04:43 Lorazepam (Ativan 2mg/ml 1ml) 0.5 mg Q4H PRN IV For Anxiety 01/01/19 19:45 01/08/19 19:44 Ondansetron HCl (Zofran) 4 mg Q6H PRN IVP Nausea & Vomiting 01/02/19 11:45 02/01/19 11:44 Oxycodone HCl (OxyCONTIN) 30 mg EVERY 8 HOURS ORAL 01/02/19 14:00 01/09/19 13:59 01/03/19 06:02 Polyethylene Glycol (Miralax) 17 gm HSPRN PRN ORAL Constipation 01/01/19 21:00 01/31/19 20:59 Sodium Chloride 1,000 ml @ 150 mls/hr Q6H40M IV 01/03/19 08:03 02/02/19 08:02 01/03/19 08:14 Vancomycin HCl (Vanco rx to dose) 1 ea DAILY PRN MISC Per rx protocol 01/02/19 18:15 02/01/19 18:14 Vancomycin HCl/ Dextrose 275 ml @ 137.5 mls/ hr Q8H IVPB 01/03/19 01:00 01/08/19 00:59 01/03/19 08:14 Zolpidem Tartrate (Ambien) 5 mg HSPRN PRN ORAL Insomnia 01/01/19 21:00 01/08/19 20:59 Laboratory Tests Test 01/03/19 05:30 White Blood Count 23.1 K/UL (4.8-10.8) *H Red Blood Count 3.44 M/UL (4.70-6.10) L Hemoglobin 9.2 G/DL (14.2-18.0) L Hematocrit 28.5 % (42.0-52.0) L Mean Corpuscular Volume 83 FL (80-99) Mean Corpuscular Hemoglobin 26.8 PG (27.0-31.0) L Mean Corpuscular Hemoglobin Concent 32.3 G/DL (32.0-36.0) Red Cell Distribution Width 20.2 % (11.6-14.8) H Platelet Count 367 K/UL (150-450) Mean Platelet Volume 6.6 FL (6.5-10.1) Neutrophils (%) (Auto) % (45.0-75.0) Lymphocytes (%) (Auto) % (20.0-45.0) Monocytes (%) (Auto) % (1.0-10.0) Eosinophils (%) (Auto) % (0.0-3.0) Basophils (%) (Auto) % (0.0-2.0) Differential Total Cells Counted 100 Neutrophils % (Manual) 28 % (45-75) L Lymphocytes % (Manual) 63 % (20-45) H Monocytes % (Manual) 5 % (1-10) Eosinophils % (Manual) 3 % (0-3) Basophils % (Manual) 1 % (0-2) Band Neutrophils 0 % (0-8) Nucleated Red Blood Cells 61 /100 WBC Platelet Estimate Adequate Platelet Morphology Normal Hypochromasia 2+ Anisocytosis 3+ Spherocytes 2+ Sodium Level 138 MMOL/L (136-145) Potassium Level 4.0 MMOL/L (3.5-5.1) Chloride Level 103 MMOL/L (98-107) Carbon Dioxide Level 29 MMOL/L (21-32) Anion Gap 6 mmol/L (5-15) Blood Urea Nitrogen 6 mg/dL (7-18) L Creatinine 0.6 MG/DL (0.55-1.30) Estimat Glomerular Filtration Rate > 60 mL/min (>60) Glucose Level 99 MG/DL (74-106) Calcium Level 8.9 MG/DL (8.5-10.1) Lactate Dehydrogenase 283 U/L (81-234) H ASSESSMENT AND PLAN: 1. 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 --> Presented in sickle crisis. on hydrea, opioids --> retic daily on a prn basis, proper response shown --> cbc has been reviewed --> continue hydrea 3500mg po daily --> continue indiral powder adjunct medication --> appreciate pain management recs --> stable for dc --> return precautions given 2. Anemia, secondary to sickle cell disease/B thalassemia --> trend hgb 10-->8.8 --> retic and ldh daily 3. Thrombocytosis, potentially secondary to reactive process --> 616k -->512k 4. Hyperproteinemia --> spep reviewed last admission 5. Leukocytosis could be related to infection --> monitor for fever, if recurrent, obtain w/i The timing of this note does not necessarily reflect the time of the patient was seen. Greatly appreciate consultation! Lewis Olmedo MD January 03, 2019 13:18
[2019-01-03] MEDS: Hydroxyurea 500mg cap ORAL SCH (15:12)
[2019-01-03 16:09] VITALS: BP 108/56
--- NOTE | 2019-01-03 17:58 | Infectious Diseases Prog Note ---
Assessment/Plan Problems: (1) Leukocytosis Assessment & Plan: rule out sepsis VS sickle cell crises , continue vancomycin and aztreonam empirically pending blood culture (2) Fever Assessment & Plan: infection related VS sickle cell crises , continue wide spectrum antibiotics pending culture, continue tylenol as needed (3) Port-A-Cath in place Assessment & Plan: continue local care as needed (4) Sickle cell disease Assessment & Plan: with possible crises , continue hydration with pain management as per primary Subjective Constitutional: Reports: fatigue HEENT: Reports: no symptoms Respiratory: Reports: no symptoms Breasts: Reports: no symptoms Cardiovascular: Reports: no symptoms Gastrointestinal/Abdominal: Reports: no symptoms Genitourinary: Reports: no symptoms Neurologic: Reports: weakness Psychiatric: Reports: no symptoms Skin: Reports: no symptoms Hematologic: Reports: no symptoms Musculoskeletal: Reports: no symptoms Allergies: Coded Allergies: CAPSAICIN (Verified Allergy, Unknown, 11/23/18) CEFTRIAXONE (Verified Allergy, Unknown, 11/23/18) IOPAMIDOL (Unverified Allergy, Unknown, 01/01/19) Uncoded Allergies: IV CONTRAST (Allergy, Unknown, 01/01/19) CONTRAST (Adverse Reaction, Severe, Rash, 06/23/16) RADIOCONTRAST - RASH, ITCHING Objective Vital Signs Last 24 Hour Vital Signs Date Time Temp Pulse Resp B/P (MAP) Pulse Ox O2 Delivery O2 Flow Rate FiO2 01/03/19 16:09 99.7 62 17 108/56 (73) 99 01/03/19 15:43 98.5 01/03/19 11:51 98.5 60 17 109/69 (82) 100 01/03/19 07:52 97.9 69 17 129/68 (88) 100 01/03/19 07:15 Room Air 01/03/19 06:32 98.3 01/03/19 04:00 97.5 55 18 137/61 (86) 99 01/03/19 00:00 98.3 80 20 119/83 (95) 99 01/02/19 21:00 Room Air 01/02/19 20:00 98.5 71 18 112/85 (94) 99 Height (Feet): 5 Height (Inches): 6.00 Weight (Pounds): 249 General Appearance: WD/WN, no acute distress HEENT: normocephalic, atraumatic, anicteric, mucous membranes moist, PERRL, EOMI, pharynx normal, supple, no JVD Respiratory/Chest: chest wall non-tender, lungs clear, normal breath sounds, no respiratory distress, no accessory muscle use Cardiovascular: normal peripheral pulses, normal rate, regular rhythm, no gallop/murmur, no JVD Abdomen: normal bowel sounds, soft, non tender, no organomegaly, non distended , no mass, no scars Extremities: no cyanosis, no clubbing Skin: no rash, no lesions, no ulcers 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, no motor/sensory deficits, alert, oriented x 3, responsive Lymphatic: no neck adenopathy, no groin adenopathy Musculoskeletal: normal muscle bulk, no effusion Microbiology Date/Time Source Procedure Growth Status 01/01/19 19:14 Blood Blood Culture - Preliminary NO GROWTH AFTER 24 HOURS Resulted 01/01/19 19:04 Blood Blood Culture - Preliminary NO GROWTH AFTER 24 HOURS Resulted Laboratory Tests Test 01/03/19 05:30 01/03/19 15:50 White Blood Count 23.1 K/UL (4.8-10.8) *H Red Blood Count 3.44 M/UL (4.70-6.10) L Hemoglobin 9.2 G/DL (14.2-18.0) L Hematocrit 28.5 % (42.0-52.0) L Mean Corpuscular Volume 83 FL (80-99) Mean Corpuscular Hemoglobin 26.8 PG (27.0-31.0) L Mean Corpuscular Hemoglobin Concent 32.3 G/DL (32.0-36.0) Red Cell Distribution Width 20.2 % (11.6-14.8) H Platelet Count 367 K/UL (150-450) Mean Platelet Volume 6.6 FL (6.5-10.1) Neutrophils (%) (Auto) % (45.0-75.0) Lymphocytes (%) (Auto) % (20.0-45.0) Monocytes (%) (Auto) % (1.0-10.0) Eosinophils (%) (Auto) % (0.0-3.0) Basophils (%) (Auto) % (0.0-2.0) Differential Total Cells Counted 100 Neutrophils % (Manual) 28 % (45-75) L Lymphocytes % (Manual) 63 % (20-45) H Monocytes % (Manual) 5 % (1-10) Eosinophils % (Manual) 3 % (0-3) Basophils % (Manual) 1 % (0-2) Band Neutrophils 0 % (0-8) Nucleated Red Blood Cells 61 /100 WBC Platelet Estimate Adequate Platelet Morphology Normal Hypochromasia 2+ Anisocytosis 3+ Spherocytes 2+ Reticulocyte Count 8.4 % (0.5-2.0) H Sodium Level 138 MMOL/L (136-145) Potassium Level 4.0 MMOL/L (3.5-5.1) Chloride Level 103 MMOL/L (98-107) Carbon Dioxide Level 29 MMOL/L (21-32) Anion Gap 6 mmol/L (5-15) Blood Urea Nitrogen 6 mg/dL (7-18) L Creatinine 0.6 MG/DL (0.55-1.30) Estimat Glomerular Filtration Rate > 60 mL/min (>60) Glucose Level 99 MG/DL (74-106) Calcium Level 8.9 MG/DL (8.5-10.1) Lactate Dehydrogenase 283 U/L (81-234) H Vancomycin Level Trough 8.8 ug/mL (5.0-12.0) Current Medications Medications (Trade) Dose Ordered Sig/Arianne Route PRN Reason Start Time Stop Time Status Last Admin Dose Admin Acetaminophen (Tylenol) 650 mg Q4H PRN ORAL fever 01/01/19 19:40 01/31/19 19:39 Aztreonam 2 gm/ Dextrose 110 ml @ 220 mls/hr Q8HR IVPB 01/02/19 22:00 01/09/19 21:59 01/03/19 14:29 Chlorhexidine Gluconate (Jihan-Hex 2%) 1 applic DAILY@2000 TOPIC 01/02/19 20:00 02/01/19 19:59 01/02/19 21:36 Dextrose (Dextrose 50%) 25 ml Q30M PRN IV Hypoglycemia 01/01/19 19:45 01/31/19 19:44 Dextrose (Dextrose 50%) 50 ml Q30M PRN IV Hypoglycemia 01/01/19 19:45 01/31/19 19:44 Diphenhydramine HCl (Benadryl) 50 mg Q6H PRN IVP Itching 01/02/19 11:45 02/01/19 11:44 01/03/19 15:12 Heparin Sodium (Porcine) (Heparin 5000 units/ml) 5,000 units EVERY 12 HOURS SUBQ 01/01/19 21:00 01/31/19 20:59 01/02/19 21:38 Hydromorphone HCl (Dilaudid) 2 mg Q3H PRN IV pain 4-6 01/01/19 19:45 01/08/19 19:44 01/03/19 15:13 Hydromorphone HCl (Dilaudid) 3 mg Q3H PRN IVP For Pain 7-10 01/01/19 19:41 01/08/19 19:40 01/02/19 04:43 Hydroxyurea (Hydrea) 1,500 mg DAILY ORAL 01/03/19 15:00 01/08/19 14:59 01/03/19 15:12 Lorazepam (Ativan 2mg/ml 1ml) 0.5 mg Q4H PRN IV For Anxiety 01/01/19 19:45 01/08/19 19:44 Ondansetron HCl (Zofran) 4 mg Q6H PRN IVP Nausea & Vomiting 01/02/19 11:45 02/01/19 11:44 Oxycodone HCl (OxyCONTIN) 30 mg EVERY 8 HOURS ORAL 01/02/19 14:00 01/09/19 13:59 01/03/19 14:26 Polyethylene Glycol (Miralax) 17 gm HSPRN PRN ORAL Constipation 01/01/19 21:00 01/31/19 20:59 Sodium Chloride 1,000 ml @ 150 mls/hr Q6H40M IV 01/03/19 08:03 02/02/19 08:02 01/03/19 08:14 Vancomycin HCl (Vanco rx to dose) 1 ea DAILY PRN MISC Per rx protocol 01/02/19 18:15 02/01/19 18:14 Vancomycin HCl/ Dextrose 275 ml @ 137.5 mls/ hr Q6H IVPB 01/03/19 23:00 01/08/19 22:59 Vancomycin HCl/ Dextrose 275 ml @ 137.5 mls/ hr Q8H IVPB 01/03/19 01:00 01/03/19 20:00 01/03/19 17:18 Zolpidem Tartrate (Ambien) 5 mg HSPRN PRN ORAL Insomnia 01/01/19 21:00 01/08/19 20:59 Emeka Solorzano M.D. January 03, 2019 17:58
[2019-01-03 20:00] VITALS: BP 113/70
[2019-01-03] MEDS: Dyna-Hex 2% Top Sol 2oz TOPIC SCH (21:59)
[2019-01-04] VITALS: BP 111/55
[2019-01-04 04:00] VITALS: BP 134/72
[2019-01-04] MEDS: Aztreonam Inj 2 GM in D5W 110 ML IVPB SCH ×2 (04:48→14:44)
[2019-01-04] MEDS: DiphenhydrAMINE 50mg/ml Inj IVP PRN ×3 (04:49→19:02)
[2019-01-04] MEDS: Vancomycin 1.5gm Premix q24h IVPB SCH ×2 (06:31→11:14)
[2019-01-04] MEDS: oxyCONTIN 10mg tab ORAL SCH ×3 (06:31→21:33)
[2019-01-04 07:18] LABS: ANION GAP 7 mmol/L (5-15); BLOOD UREA NITROGEN 5 mg/dL (7-18); CALCIUM 8.8 MG/DL (8.5-10.1); CARBON DIOXIDE 29 MMOL/L (21-32); CHLORIDE 103 MMOL/L (98-107); CREATININE 0.6 MG/DL (0.55-1.30); POTASSIUM 3.9 MMOL/L (3.5-5.1); SODIUM 139 MMOL/L (136-145)
[2019-01-04 07:25] LABS: HEMOGLOBIN 9.2 G/DL (14.2-18.0); MEAN CORPUSCULAR VOLUME 83 FL (80-99); PLATELET COUNT 406 K/UL (150-450); RED BLOOD COUNT 3.49 M/UL (4.70-6.10); RED CELL DISTRIBUTION WIDTH 21.7 % (11.6-14.8); WHITE BLOOD COUNT 17.3 K/UL (4.8-10.8)
[2019-01-04 08:00] VITALS: BP 124/69
[2019-01-04] MEDS: Hydroxyurea 500mg cap ORAL SCH (08:31)
[2019-01-04] MEDS: Heparin 5000 units/ml inj SUBQ SCH ×2 (08:34→20:25)
--- NOTE | 2019-01-04 11:47 | Pulmonology Progress Note ---
Assessment/Plan Problems: (1) Sickle cell crisis (2) Port-A-Cath in place Assessment/Plan doing slightly better barrett cultures iv fluid at 150 cc/hour check electrolytes check LDH Subjective ROS Limited/Unobtainable: No Constitutional: Reports: no symptoms HEENT: Repors: no symptoms Respiratory: Reports: no symptoms Allergies: Coded Allergies: CAPSAICIN (Verified Allergy, Unknown, 11/23/18) CEFTRIAXONE (Verified Allergy, Unknown, 11/23/18) IOPAMIDOL (Unverified Allergy, Unknown, 01/01/19) Uncoded Allergies: IV CONTRAST (Allergy, Unknown, 01/01/19) CONTRAST (Adverse Reaction, Severe, Rash, 06/23/16) RADIOCONTRAST - RASH, ITCHING Objective Last 24 Hour Vital Signs Date Time Temp Pulse Resp B/P (MAP) Pulse Ox O2 Delivery O2 Flow Rate FiO2 01/04/19 09:05 98.6 01/04/19 08:00 98.6 75 20 124/69 (87) 98 01/04/19 04:00 97.2 60 16 134/72 (92) 99 60 01/04/19 00:00 97.7 62 16 111/55 (73) 97 62 01/03/19 21:00 Nasal Cannula 2.0 01/03/19 20:00 99.0 62 17 113/70 (84) 94 62 01/03/19 16:09 99.7 62 17 108/56 (73) 99 01/03/19 11:51 98.5 60 17 109/69 (82) 100 Intake and Output 01/03/19 01/04/19 19:00 07:00 Intake Total 2810 ml 1395.0 ml Output Total 1000 ml 650 ml Balance 1810 ml 745.0 ml Intake Oral 1800 ml IV Total 1010 ml 1395.0 ml Output Urine Total 1000 ml 650 ml General Appearance: WD/WN HEENT: normocephalic, anicteric Respiratory/Chest: chest wall non-tender, lungs clear Cardiovascular: normal peripheral pulses, normal rate Abdomen: normal bowel sounds, no organomegaly, non distended Genitourinary: normal external genitalia Extremities: no cyanosis Microbiology Date/Time Source Procedure Growth Status 01/01/19 19:14 Blood Blood Culture - Preliminary NO GROWTH AFTER 48 HOURS Resulted 01/01/19 19:04 Blood Blood Culture - Preliminary NO GROWTH AFTER 48 HOURS Resulted Laboratory Tests 01/03/19 15:50: Vancomycin Level Trough 8.8 01/04/19 06:45: White Blood Count 17.3H, Corrected White Blood Count 11.9, Red Blood Count 3.49L , Hemoglobin 9.2L, Hematocrit 29.0L, Mean Corpuscular Volume 83, Mean Corpuscular Hemoglobin 26.3L, Mean Corpuscular Hemoglobin Concent 31.6L, Red Cell Distribution Width 21.7H, Platelet Count 406, Mean Platelet Volume 6.8, Neutrophils (%) (Auto) , Lymphocytes (%) (Auto) , Monocytes (%) (Auto) , Eosinophils (%) (Auto) , Basophils (%) (Auto) , Differential Total Cells Counted 100, Neutrophils % (Manual) 48, Lymphocytes % (Manual) 41, Monocytes % ( Manual) 7, Eosinophils % (Manual) 1, Basophils % (Manual) 2, Myelocytes % 1H, Band Neutrophils 0, Nucleated Red Blood Cells 120, Platelet Estimate Adequate, Platelet Morphology [Pending], Polychromasia 3+, Anisocytosis 3+, Target Cells 3 +, Sodium Level 139, Potassium Level 3.9, Chloride Level 103, Carbon Dioxide Level 29, Anion Gap 7, Blood Urea Nitrogen 5L, Creatinine 0.6, Estimat Glomerular Filtration Rate > 60, Glucose Level 95, Calcium Level 8.8, Lactate Dehydrogenase 321H Current Medications Medications (Trade) Dose Ordered Sig/Arianne Route PRN Reason Start Time Stop Time Status Last Admin Dose Admin Acetaminophen (Tylenol) 650 mg Q4H PRN ORAL fever 01/01/19 19:40 01/31/19 19:39 Aztreonam 2 gm/ Dextrose 110 ml @ 220 mls/hr Q8HR IVPB 01/02/19 22:00 01/09/19 21:59 01/04/19 04:48 Chlorhexidine Gluconate (Jihan-Hex 2%) 1 applic DAILY@2000 TOPIC 01/02/19 20:00 02/01/19 19:59 01/03/19 21:59 Dextrose (Dextrose 50%) 25 ml Q30M PRN IV Hypoglycemia 01/01/19 19:45 01/31/19 19:44 Dextrose (Dextrose 50%) 50 ml Q30M PRN IV Hypoglycemia 01/01/19 19:45 01/31/19 19:44 Diphenhydramine HCl (Benadryl) 50 mg Q6H PRN IVP Itching 01/02/19 11:45 02/01/19 11:44 01/04/19 04:49 Heparin Sodium (Porcine) (Heparin 5000 units/ml) 5,000 units EVERY 12 HOURS SUBQ 01/01/19 21:00 01/31/19 20:59 01/04/19 08:34 Hydromorphone HCl (Dilaudid) 2 mg Q3H PRN IV pain 4-6 01/01/19 19:45 01/08/19 19:44 01/04/19 08:35 Hydromorphone HCl (Dilaudid) 3 mg Q3H PRN IVP For Pain 7-10 01/01/19 19:41 01/08/19 19:40 01/02/19 04:43 Hydroxyurea (Hydrea) 1,500 mg DAILY ORAL 01/03/19 15:00 01/08/19 14:59 01/04/19 08:31 Lorazepam (Ativan 2mg/ml 1ml) 0.5 mg Q4H PRN IV For Anxiety 01/01/19 19:45 01/08/19 19:44 Ondansetron HCl (Zofran) 4 mg Q6H PRN IVP Nausea & Vomiting 01/02/19 11:45 02/01/19 11:44 Oxycodone HCl (OxyCONTIN) 30 mg EVERY 8 HOURS ORAL 01/02/19 14:00 01/09/19 13:59 01/04/19 06:31 Polyethylene Glycol (Miralax) 17 gm HSPRN PRN ORAL Constipation 01/01/19 21:00 01/31/19 20:59 Sodium Chloride 1,000 ml @ 150 mls/hr Q6H40M IV 01/03/19 08:03 02/02/19 08:02 01/04/19 11:13 Vancomycin HCl (Vanco rx to dose) 1 ea DAILY PRN MISC Per rx protocol 01/02/19 18:15 02/01/19 18:14 Vancomycin HCl/ Dextrose 275 ml @ 137.5 mls/ hr Q6H IVPB 01/03/19 23:00 01/08/19 22:59 01/04/19 11:14 Zolpidem Tartrate (Ambien) 5 mg HSPRN PRN ORAL Insomnia 01/01/19 21:00 01/08/19 20:59 Ranjith Caicedo MD January 04, 2019 11:47
[2019-01-04 12:00] VITALS: BP 115/66
--- NOTE | 2019-01-04 14:15 | Hematology/Onc Progress Note ---
Assessment/Plan Assessment/Plan ASSESSMENT AND PLAN: 1. 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 --> Presented in sickle crisis. on hydrea, opioids --> retic daily on a prn basis, proper response shown --> cbc has been reviewed --> continue hydrea 1500mg po daily --> continue indiral powder adjunct medication --> appreciate pain management recs --> stable for dc --> return precautions given --> [place] iron chelating agent with Dr. Kerline Davenport as outpatient 2. Anemia, secondary to sickle cell disease/B thalassemia --> trend hgb 10-->8.8 --> retic and ldh daily 3. Thrombocytosis, potentially secondary to reactive process --> 616k -->512k 4. Hyperproteinemia --> spep reviewed last admission 5. Leukocytosis could be related to infection --> monitor for fever, if recurrent, obtain w/i The timing of this note does not necessarily reflect the time of the patient was seen. Greatly appreciate consultation! Subjective Constitutional: Denies: no symptoms, chills, fever, malaise, weakness, other HEENT: Denies: no symptoms, eye pain, blurred vision, tearing, double vision, ear pain, ear discharge, nose pain, nose congestion, throat pain, throat swelling, mouth pain, mouth swelling, other Cardiovascular: Denies: no symptoms, chest pain, edema, irregular heart rate, lightheadedness, palpitations, syncope, other Respiratory: Denies: no symptoms, cough, shortness of breath, SOB with excertion, SOB at rest, sputum, wheezing, other Gastrointestinal/Abdominal: Denies: no symptoms, abdomen distended, abdominal pain, black stools, tarry stools, blood in stool, constipated, diarrhea, difficulty swallowing, nausea, poor appetite, poor fluid intake, rectal bleeding , vomiting, other Genitourinary: Denies: no symptoms, burning, discharge, frequency, flank pain, hematuria, incontinence, pain, urgency, other Neurologic/Psychiatric: Denies: no symptoms, anxiety, depressed, emotional problems, headache, numbness, paresthesia, pre-existing deficit, seizure, tingling, tremors, weakness, other Endocrine: Denies: no symptoms, excessive sweating, flushing, intolerance to cold, intolerance to heat, increased hunger, increased thirst, increased urine, unexplained weight gain, unexplained weight loss, other Allergies: Coded Allergies: CAPSAICIN (Verified Allergy, Unknown, 11/23/18) CEFTRIAXONE (Verified Allergy, Unknown, 11/23/18) IOPAMIDOL (Unverified Allergy, Unknown, 01/01/19) Uncoded Allergies: IV CONTRAST (Allergy, Unknown, 01/01/19) CONTRAST (Adverse Reaction, Severe, Rash, 06/23/16) RADIOCONTRAST - RASH, ITCHING Subjective 01/04: no events noted, labs reviewed, no changes Objective Objective Current Medications Medications (Trade) Dose Ordered Sig/Arianne Route PRN Reason Start Time Stop Time Status Last Admin Dose Admin Acetaminophen (Tylenol) 650 mg Q4H PRN ORAL fever 01/01/19 19:40 01/31/19 19:39 Aztreonam 2 gm/ Dextrose 110 ml @ 220 mls/hr Q8HR IVPB 01/02/19 22:00 01/09/19 21:59 01/04/19 04:48 Chlorhexidine Gluconate (Jihan-Hex 2%) 1 applic DAILY@2000 TOPIC 01/02/19 20:00 02/01/19 19:59 01/03/19 21:59 Dextrose (Dextrose 50%) 25 ml Q30M PRN IV Hypoglycemia 01/01/19 19:45 01/31/19 19:44 Dextrose (Dextrose 50%) 50 ml Q30M PRN IV Hypoglycemia 01/01/19 19:45 01/31/19 19:44 Diphenhydramine HCl (Benadryl) 50 mg Q6H PRN IVP Itching 01/02/19 11:45 02/01/19 11:44 01/04/19 12:14 Heparin Sodium (Porcine) (Heparin 5000 units/ml) 5,000 units EVERY 12 HOURS SUBQ 01/01/19 21:00 01/31/19 20:59 01/04/19 08:34 Hydromorphone HCl (Dilaudid) 2 mg Q3H PRN IV pain 4-6 01/01/19 19:45 01/08/19 19:44 01/04/19 12:14 Hydromorphone HCl (Dilaudid) 3 mg Q3H PRN IVP For Pain 7-10 01/01/19 19:41 01/08/19 19:40 01/02/19 04:43 Hydroxyurea (Hydrea) 1,500 mg DAILY ORAL 01/03/19 15:00 01/08/19 14:59 01/04/19 08:31 Lorazepam (Ativan 2mg/ml 1ml) 0.5 mg Q4H PRN IV For Anxiety 01/01/19 19:45 01/08/19 19:44 Ondansetron HCl (Zofran) 4 mg Q6H PRN IVP Nausea & Vomiting 01/02/19 11:45 02/01/19 11:44 Oxycodone HCl (OxyCONTIN) 30 mg EVERY 8 HOURS ORAL 01/02/19 14:00 01/09/19 13:59 01/04/19 06:31 Polyethylene Glycol (Miralax) 17 gm HSPRN PRN ORAL Constipation 01/01/19 21:00 01/31/19 20:59 Sodium Chloride 1,000 ml @ 150 mls/hr Q6H40M IV 01/03/19 08:03 02/02/19 08:02 01/04/19 11:13 Vancomycin HCl (Vanco rx to dose) 1 ea DAILY PRN MISC Per rx protocol 01/02/19 18:15 02/01/19 18:14 Vancomycin HCl/ Dextrose 275 ml @ 137.5 mls/ hr Q6H IVPB 01/03/19 23:00 01/08/19 22:59 01/04/19 11:14 Zolpidem Tartrate (Ambien) 5 mg HSPRN PRN ORAL Insomnia 01/01/19 21:00 01/08/19 20:59 Last 24 Hour Vital Signs Date Time Temp Pulse Resp B/P (MAP) Pulse Ox O2 Delivery O2 Flow Rate FiO2 01/04/19 12:00 98.6 69 20 115/66 (82) 97 01/04/19 09:05 98.6 01/04/19 08:00 98.6 75 20 124/69 (87) 98 01/04/19 04:00 97.2 60 16 134/72 (92) 99 60 01/04/19 00:00 97.7 62 16 111/55 (73) 97 62 01/03/19 21:00 Nasal Cannula 2.0 01/03/19 20:00 99.0 62 17 113/70 (84) 94 62 01/03/19 16:09 99.7 62 17 108/56 (73) 99 01/03/19 11:51 98.5 60 17 109/69 (82) 100 01/03/19 07:52 97.9 69 17 129/68 (88) 100 01/03/19 07:15 Room Air 01/03/19 06:32 98.3 01/03/19 04:00 97.5 55 18 137/61 (86) 99 01/03/19 00:00 98.3 80 20 119/83 (95) 99 01/02/19 21:00 Room Air 01/02/19 20:00 98.5 71 18 112/85 (94) 99 01/02/19 17:00 97.3 74 19 125/87 (100) 98 Intake and Output 01/03/19 01/04/19 19:00 07:00 Intake Total 2810 ml 1395.0 ml Output Total 1000 ml 650 ml Balance 1810 ml 745.0 ml Intake Oral 1800 ml IV Total 1010 ml 1395.0 ml Output Urine Total 1000 ml 650 ml Labs Test 01/01/19 17:10 01/01/19 19:17 01/02/19 08:15 01/03/19 05:30 White Blood Count 20.8 K/UL (4.8-10.8) 17.5 K/UL (4.8-10.8) 23.1 K/UL (4.8-10.8) Red Blood Count 3.77 M/UL (4.70-6.10) 3.69 M/UL (4.70-6.10) 3.44 M/UL (4.70-6.10) Hemoglobin 9.8 G/DL (14.2-18.0) 9.6 G/DL (14.2-18.0) 9.2 G/DL (14.2-18.0) Hematocrit 30.3 % (42.0-52.0) 29.9 % (42.0-52.0) 28.5 % (42.0-52.0) Mean Corpuscular Volume 80 FL (80-99) 81 FL (80-99) 83 FL (80-99) Mean Corpuscular Hemoglobin 26.0 PG (27.0-31.0) 26.1 PG (27.0-31.0) 26.8 PG (27.0-31.0) Mean Corpuscular Hemoglobin Concent 32.4 G/DL (32.0-36.0) 32.2 G/DL (32.0-36.0) 32.3 G/DL (32.0-36.0) Red Cell Distribution Width 18.2 % (11.6-14.8) 19.4 % (11.6-14.8) 20.2 % (11.6-14.8) Platelet Count 456 K/UL (150-450) 407 K/UL (150-450) 367 K/UL (150-450) Mean Platelet Volume 6.5 FL (6.5-10.1) 6.9 FL (6.5-10.1) 6.6 FL (6.5-10.1) Neutrophils (%) (Auto) % (45.0-75.0) 55.7 % (45.0-75.0) % (45.0-75.0) Lymphocytes (%) (Auto) % (20.0-45.0) 32.2 % (20.0-45.0) % (20.0-45.0) Monocytes (%) (Auto) % (1.0-10.0) 9.9 % (1.0-10.0) % (1.0-10.0) Eosinophils (%) (Auto) % (0.0-3.0) 1.0 % (0.0-3.0) % (0.0-3.0) Basophils (%) (Auto) % (0.0-2.0) 1.1 % (0.0-2.0) % (0.0-2.0) Differential Total Cells Counted 100 100 Neutrophils % (Manual) 76 % (45-75) 28 % (45-75) Lymphocytes % (Manual) 15 % (20-45) 63 % (20-45) Monocytes % (Manual) 8 % (1-10) 5 % (1-10) Eosinophils % (Manual) 0 % (0-3) 3 % (0-3) Basophils % (Manual) 1 % (0-2) 1 % (0-2) Band Neutrophils 0 % (0-8) 0 % (0-8) Nucleated Red Blood Cells 45 /100 WBC 61 /100 WBC Platelet Estimate Increased Adequate Platelet Morphology Normal Normal Red Blood Cell Morphology Polychromasia 1+ Hypochromasia 2+ 2+ Anisocytosis 2+ 3+ Target Cells 2+ Reticulocyte Count 10.2 % (0.5-2.0) 8.4 % (0.5-2.0) Prothrombin Time 11.2 SEC (9.30-11.50) Prothromb Time International Ratio 1.1 (0.9-1.1) Activated Partial Thromboplast Time 27 SEC (23-33) Sodium Level 139 MMOL/L (136-145) 135 MMOL/L (136-145) 138 MMOL/L (136-145) Potassium Level 3.9 MMOL/L (3.5-5.1) 4.3 MMOL/L (3.5-5.1) 4.0 MMOL/L (3.5-5.1) Chloride Level 102 MMOL/L (98-107) 100 MMOL/L (98-107) 103 MMOL/L (98-107) Carbon Dioxide Level 28 MMOL/L (21-32) 26 MMOL/L (21-32) 29 MMOL/L (21-32) Anion Gap 9 mmol/L (5-15) 9 mmol/L (5-15) 6 mmol/L (5-15) Blood Urea Nitrogen 8 mg/dL (7-18) 6 mg/dL (7-18) 6 mg/dL (7-18) Creatinine 0.6 MG/DL (0.55-1.30) 0.5 MG/DL (0.55-1.30) 0.6 MG/DL (0.55-1.30) Estimat Glomerular Filtration Rate > 60 mL/min (>60) > 60 mL/min (>60) > 60 mL/min (>60) Glucose Level 119 MG/DL (74-106) 100 MG/DL (74-106) 99 MG/DL (74-106) Calcium Level 9.5 MG/DL (8.5-10.1) 9.2 MG/DL (8.5-10.1) 8.9 MG/DL (8.5-10.1) Total Bilirubin 1.4 MG/DL (0.2-1.0) 1.5 MG/DL (0.2-1.0) Direct Bilirubin 0.3 MG/DL (0.0-0.3) < 0.1 MG/DL (0.0-0.3) Aspartate Amino Transf (AST/SGOT) 62 U/L (15-37) 59 U/L (15-37) Alanine Aminotransferase (ALT/SGPT) 122 U/L (12-78) 122 U/L (12-78) Alkaline Phosphatase 102 U/L (46-116) 96 U/L (46-116) Lactate Dehydrogenase 344 U/L (81-234) 291 U/L (81-234) 283 U/L (81-234) Total Creatine Kinase 24 U/L (26-308) Creatine Kinase MB 0.6 NG/ML (0.0-3.6) Creatine Kinase MB Relative Index 2.5 Troponin I 0.000 ng/mL (0.000-0.056) Total Protein 8.7 G/DL (6.4-8.2) 8.3 G/DL (6.4-8.2) Albumin 4.1 G/DL (3.4-5.0) 3.9 G/DL (3.4-5.0) Globulin 4.6 g/dL 4.4 g/dL Albumin/Globulin Ratio 0.9 (1.0-2.7) 0.9 (1.0-2.7) Lactic Acid Level 0.70 mmol/L (0.4-2.0) Spherocytes 2+ Test 01/03/19 15:50 01/04/19 06:45 Vancomycin Level Trough 8.8 ug/mL (5.0-12.0) White Blood Count 17.3 K/UL (4.8-10.8) Corrected White Blood Count 11.9 K/UL Red Blood Count 3.49 M/UL (4.70-6.10) Hemoglobin 9.2 G/DL (14.2-18.0) Hematocrit 29.0 % (42.0-52.0) Mean Corpuscular Volume 83 FL (80-99) Mean Corpuscular Hemoglobin 26.3 PG (27.0-31.0) Mean Corpuscular Hemoglobin Concent 31.6 G/DL (32.0-36.0) Red Cell Distribution Width 21.7 % (11.6-14.8) Platelet Count 406 K/UL (150-450) Mean Platelet Volume 6.8 FL (6.5-10.1) Neutrophils (%) (Auto) % (45.0-75.0) Lymphocytes (%) (Auto) % (20.0-45.0) Monocytes (%) (Auto) % (1.0-10.0) Eosinophils (%) (Auto) % (0.0-3.0) Basophils (%) (Auto) % (0.0-2.0) Differential Total Cells Counted 100 Neutrophils % (Manual) 48 % (45-75) Lymphocytes % (Manual) 41 % (20-45) Monocytes % (Manual) 7 % (1-10) Eosinophils % (Manual) 1 % (0-3) Basophils % (Manual) 2 % (0-2) Myelocytes % 1 % (0-0) Band Neutrophils 0 % (0-8) Nucleated Red Blood Cells 120 /100 WBC Platelet Estimate Adequate Platelet Morphology Normal Polychromasia 3+ Anisocytosis 3+ Target Cells 3+ Sodium Level 139 MMOL/L (136-145) Potassium Level 3.9 MMOL/L (3.5-5.1) Chloride Level 103 MMOL/L (98-107) Carbon Dioxide Level 29 MMOL/L (21-32) Anion Gap 7 mmol/L (5-15) Blood Urea Nitrogen 5 mg/dL (7-18) Creatinine 0.6 MG/DL (0.55-1.30) Estimat Glomerular Filtration Rate > 60 mL/min (>60) Glucose Level 95 MG/DL (74-106) Calcium Level 8.8 MG/DL (8.5-10.1) Lactate Dehydrogenase 321 U/L (81-234) Height (Feet): 5 Height (Inches): 6.00 Weight (Pounds): 249 Objective PHYSICAL EXAMINATION: VITAL SIGNS: have been reviewed HEENT: KENNY. NECK: Supple. No lymphadenopathy. CHEST: Clear to auscultation CARDIOVASCULAR: Regular rate and rhythm. No murmurs or extra sounds. ABDOMEN: Soft, nontender, nondistended. No organomegaly. EXTREMITIES: No edema. Moves all four extremities. NEUROLOGIC: Sensory intact to touch. Reflexes are equal on both sides. Moves all four extremities. Lewis Olmedo MD January 04, 2019 14:15
[2019-01-04 16:00] VITALS: BP 133/74
--- NOTE | 2019-01-04 17:29 | Internal Med Progress Note ---
Subjective Date of Service: January 04, 2019 Physician Name Rubalcava,Edilson Attending Physician Jersey Bearden MD Current Medications Medications (Trade) Dose Ordered Sig/Arianne Route PRN Reason Start Time Stop Time Status Last Admin Dose Admin Acetaminophen (Tylenol) 650 mg Q4H PRN ORAL fever 01/01/19 19:40 01/31/19 19:39 Aztreonam 2 gm/ Dextrose 110 ml @ 220 mls/hr Q8HR IVPB 01/02/19 22:00 01/09/19 21:59 01/04/19 14:44 Chlorhexidine Gluconate (Jihan-Hex 2%) 1 applic DAILY@2000 TOPIC 01/02/19 20:00 02/01/19 19:59 01/03/19 21:59 Dextrose (Dextrose 50%) 25 ml Q30M PRN IV Hypoglycemia 01/01/19 19:45 01/31/19 19:44 Dextrose (Dextrose 50%) 50 ml Q30M PRN IV Hypoglycemia 01/01/19 19:45 01/31/19 19:44 Diphenhydramine HCl (Benadryl) 50 mg Q6H PRN IVP Itching 01/02/19 11:45 02/01/19 11:44 01/04/19 12:14 Heparin Sodium (Porcine) (Heparin 5000 units/ml) 5,000 units EVERY 12 HOURS SUBQ 01/01/19 21:00 01/31/19 20:59 01/04/19 08:34 Hydromorphone HCl (Dilaudid) 2 mg Q3H PRN IV pain 4-6 01/01/19 19:45 01/08/19 19:44 01/04/19 15:46 Hydromorphone HCl (Dilaudid) 3 mg Q3H PRN IVP For Pain 7-10 01/01/19 19:41 01/08/19 19:40 01/02/19 04:43 Hydroxyurea (Hydrea) 1,500 mg DAILY ORAL 01/03/19 15:00 01/08/19 14:59 01/04/19 08:31 Lorazepam (Ativan 2mg/ml 1ml) 0.5 mg Q4H PRN IV For Anxiety 01/01/19 19:45 01/08/19 19:44 Ondansetron HCl (Zofran) 4 mg Q6H PRN IVP Nausea & Vomiting 01/02/19 11:45 02/01/19 11:44 Oxycodone HCl (OxyCONTIN) 30 mg EVERY 8 HOURS ORAL 01/02/19 14:00 01/09/19 13:59 01/04/19 14:44 Polyethylene Glycol (Miralax) 17 gm HSPRN PRN ORAL Constipation 01/01/19 21:00 01/31/19 20:59 Sodium Chloride 1,000 ml @ 150 mls/hr Q6H40M IV 01/03/19 08:03 02/02/19 08:02 01/04/19 11:13 Vancomycin HCl (Vanco rx to dose) 1 ea DAILY PRN MISC Per rx protocol 01/02/19 18:15 02/01/19 18:14 Vancomycin HCl/ Dextrose 275 ml @ 137.5 mls/ hr Q6H IVPB 01/03/19 23:00 01/08/19 22:59 01/04/19 11:14 Zolpidem Tartrate (Ambien) 5 mg HSPRN PRN ORAL Insomnia 01/01/19 21:00 01/08/19 20:59 Allergies: Coded Allergies: CAPSAICIN (Verified Allergy, Unknown, 11/23/18) CEFTRIAXONE (Verified Allergy, Unknown, 11/23/18) IOPAMIDOL (Unverified Allergy, Unknown, 01/01/19) Uncoded Allergies: IV CONTRAST (Allergy, Unknown, 01/01/19) CONTRAST (Adverse Reaction, Severe, Rash, 06/23/16) RADIOCONTRAST - RASH, ITCHING ROS Limited/Unobtainable: No Constitutional: Reports: no symptoms HEENT: Reports: no symptoms Cardiovascular: Reports: no symptoms Respiratory: Reports: no symptoms Gastrointestinal/Abdominal: Reports: no symptoms Genitourinary: Reports: no symptoms Neurologic/Psychiatric: Reports: no symptoms Subjective 23 YO M admitted with sickle cell crisis and leukocytosis. Cover for Int Franky- Dr Bearden Objective Last Vital Signs Date Time Temp Pulse Resp B/P (MAP) Pulse Ox O2 Delivery O2 Flow Rate FiO2 01/04/19 16:16 98.6 01/04/19 12:00 69 20 115/66 (82) 97 01/04/19 09:00 Nasal Cannula 2.0 Laboratory Tests Test 01/04/19 06:45 01/04/19 16:45 White Blood Count 17.3 K/UL (4.8-10.8) H Corrected White Blood Count 11.9 K/UL Red Blood Count 3.49 M/UL (4.70-6.10) L Hemoglobin 9.2 G/DL (14.2-18.0) L Hematocrit 29.0 % (42.0-52.0) L Mean Corpuscular Volume 83 FL (80-99) Mean Corpuscular Hemoglobin 26.3 PG (27.0-31.0) L Mean Corpuscular Hemoglobin Concent 31.6 G/DL (32.0-36.0) L Red Cell Distribution Width 21.7 % (11.6-14.8) H Platelet Count 406 K/UL (150-450) Mean Platelet Volume 6.8 FL (6.5-10.1) Neutrophils (%) (Auto) % (45.0-75.0) Lymphocytes (%) (Auto) % (20.0-45.0) Monocytes (%) (Auto) % (1.0-10.0) Eosinophils (%) (Auto) % (0.0-3.0) Basophils (%) (Auto) % (0.0-2.0) Differential Total Cells Counted 100 Neutrophils % (Manual) 48 % (45-75) Lymphocytes % (Manual) 41 % (20-45) Monocytes % (Manual) 7 % (1-10) Eosinophils % (Manual) 1 % (0-3) Basophils % (Manual) 2 % (0-2) Myelocytes % 1 % (0-0) H Band Neutrophils 0 % (0-8) Nucleated Red Blood Cells 120 /100 WBC Platelet Estimate Adequate Platelet Morphology Normal Polychromasia 3+ Anisocytosis 3+ Target Cells 3+ Sodium Level 139 MMOL/L (136-145) Potassium Level 3.9 MMOL/L (3.5-5.1) Chloride Level 103 MMOL/L (98-107) Carbon Dioxide Level 29 MMOL/L (21-32) Anion Gap 7 mmol/L (5-15) Blood Urea Nitrogen 5 mg/dL (7-18) L Creatinine 0.6 MG/DL (0.55-1.30) Estimat Glomerular Filtration Rate > 60 mL/min (>60) Glucose Level 95 MG/DL (74-106) Calcium Level 8.8 MG/DL (8.5-10.1) Lactate Dehydrogenase 321 U/L (81-234) H Vancomycin Level Trough Pending Microbiology Date/Time Source Procedure Growth Status 01/01/19 19:14 Blood Blood Culture - Preliminary NO GROWTH AFTER 48 HOURS Resulted 01/01/19 19:04 Blood Blood Culture - Preliminary NO GROWTH AFTER 48 HOURS Resulted Intake and Output 01/03/19 01/04/19 19:00 07:00 Intake Total 2810 ml 1395.0 ml Output Total 1000 ml 650 ml Balance 1810 ml 745.0 ml Intake Oral 1800 ml IV Total 1010 ml 1395.0 ml Output Urine Total 1000 ml 650 ml Objective PHYSICAL EXAMINATION: GENERAL: The patient is a well-developed and well-nourished male, in no apparent distress. HEENT: Eyes, pupils are equal and responsive to light and accommodation. Extraocular movements are intact. NECK: Supple without lymphadenopathy. CHEST: Lungs are clear to auscultation bilaterally without wheezes or rales. CARDIOVASCULAR: Regular rhythm and rate. S1 and S2 are normal without murmurs, rubs, or gallops. ABDOMEN: Soft, nontender, and nondistended. Positive bowel sounds. No evidence of hepatosplenomegaly. Currently, no rebound or guarding noted. EXTREMITIES: Negative for clubbing, cyanosis, or edema. RECTAL/GENITAL: Refused. NEUROLOGIC: Cranial nerves II through XII are grossly intact without focal deficits. Motor strength is 5/5 bilaterally. Deep tendon reflexes are 2+ plantar. Assessment/Plan Assessment/Plan ASSESSMENT: This is a 23-year-old white male. 1. Sickle cell crisis. 2. Sickle cell disease. 3. Asthma. 4. Avascular necrosis of the left hip. 5. Leukocytosis; R/O sepsis TREATMENT: 1. Sickle cell crisis/sickle cell disease. A Hematology/Oncology consultation was obtained with Dr. Kerline Davenport. The patient is currently receiving intravenous fluids and pain management intravenously. We will follow recommendations of Hematology/Oncology. 2. Asthma. Continue Advair as above. 3. Avascular necrosis of the hip. 4. Leukocytosis. Given the recent history of sepsis, an Infectious Disease consultation has been obtained with Dr. Solorzano. Blood cultures are pending. Abx=vancomycin and aztreonam per Edilson Dennis MD January 04, 2019 17:29
[2019-01-04] MEDS ORDERED: Vancomycin 1.25gm Premix IVPB SCH (18:00)
--- NOTE | 2019-01-04 19:02 | Infectious Diseases Prog Note ---
Assessment/Plan Problems: (1) Leukocytosis Assessment & Plan: no evidence of sepsis suspect sickle cell crises related , will stop vancomycin and aztreonam empirically and monitor clinically (2) Fever Assessment & Plan: no evidence of infection so far suspect sickle cell crises related , stop wide spectrum antibiotics , continue tylenol as needed (3) Port-A-Cath in place Assessment & Plan: continue local care as needed (4) Sickle cell disease Assessment & Plan: with possible crises , continue hydration with pain management as per primary Subjective Constitutional: Reports: fatigue HEENT: Reports: no symptoms Respiratory: Reports: no symptoms Breasts: Reports: no symptoms Cardiovascular: Reports: no symptoms Gastrointestinal/Abdominal: Reports: no symptoms Genitourinary: Reports: no symptoms Neurologic: Reports: no symptoms Psychiatric: Reports: no symptoms Skin: Reports: no symptoms Endocrine: Reports: no symptoms Hematologic: Reports: no symptoms Musculoskeletal: Reports: no symptoms Allergies: Coded Allergies: CAPSAICIN (Verified Allergy, Unknown, 11/23/18) CEFTRIAXONE (Verified Allergy, Unknown, 11/23/18) IOPAMIDOL (Unverified Allergy, Unknown, 01/01/19) Uncoded Allergies: IV CONTRAST (Allergy, Unknown, 01/01/19) CONTRAST (Adverse Reaction, Severe, Rash, 06/23/16) RADIOCONTRAST - RASH, ITCHING Objective Vital Signs Last 24 Hour Vital Signs Date Time Temp Pulse Resp B/P (MAP) Pulse Ox O2 Delivery O2 Flow Rate FiO2 01/04/19 16:16 98.6 01/04/19 16:00 98.0 96 20 133/74 (93) 95 01/04/19 15:14 98.6 01/04/19 12:00 98.6 69 20 115/66 (82) 97 01/04/19 09:00 Nasal Cannula 2.0 01/04/19 08:00 98.6 75 20 124/69 (87) 98 01/04/19 04:00 97.2 60 16 134/72 (92) 99 60 01/04/19 00:00 97.7 62 16 111/55 (73) 97 62 01/03/19 21:00 Nasal Cannula 2.0 01/03/19 20:00 99.0 62 17 113/70 (84) 94 62 Height (Feet): 5 Height (Inches): 6.00 Weight (Pounds): 249 General Appearance: WD/WN, no acute distress HEENT: normocephalic, atraumatic, anicteric, mucous membranes moist, PERRL, EOMI, pharynx normal, supple, no JVD Respiratory/Chest: chest wall non-tender, lungs clear, normal breath sounds, no respiratory distress, no accessory muscle use Cardiovascular: normal peripheral pulses, normal rate, regular rhythm, no gallop/murmur, no JVD Abdomen: normal bowel sounds, soft, non tender, no organomegaly, non distended , no mass, no scars Genitourinary: normal external genitalia Extremities: no cyanosis, no clubbing Skin: no rash, no lesions, no ulcers Neurologic/Psychiatric: electrician deck II-XII 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, no motor/sensory deficits, alert, oriented x 3, responsive Lymphatic: no neck adenopathy, no groin adenopathy Musculoskeletal: normal muscle bulk, no effusion Microbiology Date/Time Source Procedure Growth Status 01/01/19 19:14 Blood Blood Culture - Preliminary NO GROWTH AFTER 48 HOURS Resulted 01/01/19 19:04 Blood Blood Culture - Preliminary NO GROWTH AFTER 48 HOURS Resulted Laboratory Tests Test 01/04/19 06:45 01/04/19 16:45 White Blood Count 17.3 K/UL (4.8-10.8) H Corrected White Blood Count 11.9 K/UL Red Blood Count 3.49 M/UL (4.70-6.10) L Hemoglobin 9.2 G/DL (14.2-18.0) L Hematocrit 29.0 % (42.0-52.0) L Mean Corpuscular Volume 83 FL (80-99) Mean Corpuscular Hemoglobin 26.3 PG (27.0-31.0) L Mean Corpuscular Hemoglobin Concent 31.6 G/DL (32.0-36.0) L Red Cell Distribution Width 21.7 % (11.6-14.8) H Platelet Count 406 K/UL (150-450) Mean Platelet Volume 6.8 FL (6.5-10.1) Neutrophils (%) (Auto) % (45.0-75.0) Lymphocytes (%) (Auto) % (20.0-45.0) Monocytes (%) (Auto) % (1.0-10.0) Eosinophils (%) (Auto) % (0.0-3.0) Basophils (%) (Auto) % (0.0-2.0) Differential Total Cells Counted 100 Neutrophils % (Manual) 48 % (45-75) Lymphocytes % (Manual) 41 % (20-45) Monocytes % (Manual) 7 % (1-10) Eosinophils % (Manual) 1 % (0-3) Basophils % (Manual) 2 % (0-2) Myelocytes % 1 % (0-0) H Band Neutrophils 0 % (0-8) Nucleated Red Blood Cells 120 /100 WBC Platelet Estimate Adequate Platelet Morphology Normal Polychromasia 3+ Anisocytosis 3+ Target Cells 3+ Sodium Level 139 MMOL/L (136-145) Potassium Level 3.9 MMOL/L (3.5-5.1) Chloride Level 103 MMOL/L (98-107) Carbon Dioxide Level 29 MMOL/L (21-32) Anion Gap 7 mmol/L (5-15) Blood Urea Nitrogen 5 mg/dL (7-18) L Creatinine 0.6 MG/DL (0.55-1.30) Estimat Glomerular Filtration Rate > 60 mL/min (>60) Glucose Level 95 MG/DL (74-106) Calcium Level 8.8 MG/DL (8.5-10.1) Lactate Dehydrogenase 321 U/L (81-234) H Vancomycin Level Trough 22.2 ug/mL (5.0-12.0) H Current Medications Medications (Trade) Dose Ordered Sig/Arianne Route PRN Reason Start Time Stop Time Status Last Admin Dose Admin Acetaminophen (Tylenol) 650 mg Q4H PRN ORAL fever 01/01/19 19:40 01/31/19 19:39 Aztreonam 2 gm/ Dextrose 110 ml @ 220 mls/hr Q8HR IVPB 01/02/19 22:00 01/09/19 21:59 01/04/19 14:44 Chlorhexidine Gluconate (Jihan-Hex 2%) 1 applic DAILY@2000 TOPIC 01/02/19 20:00 02/01/19 19:59 01/03/19 21:59 Dextrose (Dextrose 50%) 25 ml Q30M PRN IV Hypoglycemia 01/01/19 19:45 01/31/19 19:44 Dextrose (Dextrose 50%) 50 ml Q30M PRN IV Hypoglycemia 01/01/19 19:45 01/31/19 19:44 Diphenhydramine HCl (Benadryl) 50 mg Q6H PRN IVP Itching 01/02/19 11:45 02/01/19 11:44 01/04/19 12:14 Heparin Sodium (Porcine) (Heparin 5000 units/ml) 5,000 units EVERY 12 HOURS SUBQ 01/01/19 21:00 01/31/19 20:59 01/04/19 08:34 Hydromorphone HCl (Dilaudid) 2 mg Q3H PRN IV pain 4-6 01/01/19 19:45 01/08/19 19:44 01/04/19 15:46 Hydromorphone HCl (Dilaudid) 3 mg Q3H PRN IVP For Pain 7-10 01/01/19 19:41 01/08/19 19:40 01/02/19 04:43 Hydroxyurea (Hydrea) 1,500 mg DAILY ORAL 01/03/19 15:00 01/08/19 14:59 01/04/19 08:31 Lorazepam (Ativan 2mg/ml 1ml) 0.5 mg Q4H PRN IV For Anxiety 01/01/19 19:45 01/08/19 19:44 Ondansetron HCl (Zofran) 4 mg Q6H PRN IVP Nausea & Vomiting 01/02/19 11:45 02/01/19 11:44 Oxycodone HCl (OxyCONTIN) 30 mg EVERY 8 HOURS ORAL 01/02/19 14:00 01/09/19 13:59 01/04/19 14:44 Polyethylene Glycol (Miralax) 17 gm HSPRN PRN ORAL Constipation 01/01/19 21:00 01/31/19 20:59 Sodium Chloride 1,000 ml @ 150 mls/hr Q6H40M IV 01/03/19 08:03 02/02/19 08:02 01/04/19 11:13 Vancomycin HCl (Vanco rx to dose) 1 ea DAILY PRN MISC Per rx protocol 01/02/19 18:15 02/01/19 18:14 Vancomycin HCl/ Dextrose 275 ml @ 183.333 mls/hr Q6H IVPB 01/04/19 18:00 01/09/19 17:59 01/04/19 18:30 Zolpidem Tartrate (Ambien) 5 mg HSPRN PRN ORAL Insomnia 01/01/19 21:00 01/08/19 20:59 Emeka Solorzano M.D. January 04, 2019 19:02
[2019-01-04 20:00] VITALS: BP 131/79
[2019-01-04] MEDS: Dyna-Hex 2% Top Sol 2oz TOPIC SCH (20:00)
[2019-01-05] VITALS: BP 139/71
[2019-01-05] MEDS: DiphenhydrAMINE 50mg/ml Inj IVP PRN ×4 (01:45→20:54)
[2019-01-05] MEDS: oxyCONTIN 10mg tab ORAL SCH ×3 (05:55→22:21)
[2019-01-05 08:00] VITALS: BP 129/85
[2019-01-05] MEDS: Hydroxyurea 500mg cap ORAL SCH (08:39)
[2019-01-05] MEDS: Heparin 5000 units/ml inj SUBQ SCH ×2 (08:40→20:54)
--- NOTE | 2019-01-05 11:16 | Hematology/Onc Progress Note ---
Assessment/Plan Assessment/Plan ASSESSMENT AND PLAN: 1. 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 --> Presented in sickle crisis. on hydrea, opioids --> retic daily on a prn basis, proper response shown --> cbc has been reviewed --> continue hydrea 1500mg po daily --> continue indiral powder adjunct medication --> appreciate pain management recs --> stable for dc --> return precautions given --> [place] iron chelating agent with Dr. Kerline Davenport as outpatient 2. Anemia, secondary to sickle cell disease/B thalassemia --> trend hgb 10-->8.8-->9.2 --> retic and ldh daily --> Hgb goal >7. 3. Thrombocytosis, potentially secondary to reactive process --> Currently WDL --> Plt trend: 616k -->512k--406k 4. Hyperproteinemia --> spep reviewed last admission 5. Leukocytosis could be related to infection --> WBC improving, currently at 17.3 --> monitor for fever, if recurrent, obtain w/i --> Blood cx negative The timing of this note does not necessarily reflect the time of the patient was seen. Greatly appreciate consultation! Subjective Hematologic/Lymphatic: Reports: anemia Allergies: Coded Allergies: CAPSAICIN (Verified Allergy, Unknown, 11/23/18) CEFTRIAXONE (Verified Allergy, Unknown, 11/23/18) IOPAMIDOL (Unverified Allergy, Unknown, 01/01/19) Uncoded Allergies: IV CONTRAST (Allergy, Unknown, 01/01/19) CONTRAST (Adverse Reaction, Severe, Rash, 06/23/16) RADIOCONTRAST - RASH, ITCHING All Systems: reviewed and negative except above Subjective 01/04: no events noted, labs reviewed, no changes 01/05: Patient is awake alert, no acute distress noted but patient is reporting generalized body pain. Objective Objective Current Medications Medications (Trade) Dose Ordered Sig/Arianne Route PRN Reason Start Time Stop Time Status Last Admin Dose Admin Acetaminophen (Tylenol) 650 mg Q4H PRN ORAL fever 01/01/19 19:40 01/31/19 19:39 Chlorhexidine Gluconate (Jihan-Hex 2%) 1 applic DAILY@2000 TOPIC 01/02/19 20:00 02/01/19 19:59 01/04/19 20:00 Dextrose (Dextrose 50%) 25 ml Q30M PRN IV Hypoglycemia 01/01/19 19:45 01/31/19 19:44 Dextrose (Dextrose 50%) 50 ml Q30M PRN IV Hypoglycemia 01/01/19 19:45 01/31/19 19:44 Diphenhydramine HCl (Benadryl) 50 mg Q6H PRN IVP Itching 01/02/19 11:45 02/01/19 11:44 01/05/19 08:05 Heparin Sodium (Porcine) (Heparin 5000 units/ml) 5,000 units EVERY 12 HOURS SUBQ 01/01/19 21:00 01/31/19 20:59 01/05/19 08:40 Hydromorphone HCl (Dilaudid) 2 mg Q3H PRN IV pain 4-6 01/01/19 19:45 01/08/19 19:44 01/05/19 08:05 Hydromorphone HCl (Dilaudid) 3 mg Q3H PRN IVP For Pain 7-10 01/01/19 19:41 01/08/19 19:40 01/02/19 04:43 Hydroxyurea (Hydrea) 1,500 mg DAILY ORAL 01/03/19 15:00 01/08/19 14:59 01/05/19 08:39 Lorazepam (Ativan 2mg/ml 1ml) 0.5 mg Q4H PRN IV For Anxiety 01/01/19 19:45 01/08/19 19:44 Ondansetron HCl (Zofran) 4 mg Q6H PRN IVP Nausea & Vomiting 01/02/19 11:45 02/01/19 11:44 Oxycodone HCl (OxyCONTIN) 30 mg EVERY 8 HOURS ORAL 01/02/19 14:00 01/09/19 13:59 01/05/19 05:55 Polyethylene Glycol (Miralax) 17 gm HSPRN PRN ORAL Constipation 01/01/19 21:00 01/31/19 20:59 Sodium Chloride 1,000 ml @ 160 mls/hr Q6H15M IV 01/05/19 08:30 02/04/19 08:29 01/05/19 08:38 Zolpidem Tartrate (Ambien) 5 mg HSPRN PRN ORAL Insomnia 01/01/19 21:00 01/08/19 20:59 Last 24 Hour Vital Signs Date Time Temp Pulse Resp B/P (MAP) Pulse Ox O2 Delivery O2 Flow Rate FiO2 01/05/19 09:00 Nasal Cannula 2.0 01/05/19 08:52 97.8 01/05/19 08:00 97.8 75 22 129/85 (100) 99 01/05/19 00:00 99.1 95 20 139/71 (93) 95 01/04/19 21:00 Nasal Cannula 2.0 01/04/19 20:00 99.2 97 18 131/79 (96) 97 01/04/19 16:00 98.0 96 20 133/74 (93) 95 01/04/19 15:14 98.6 01/04/19 12:00 98.6 69 20 115/66 (82) 97 01/04/19 09:00 Nasal Cannula 2.0 01/04/19 08:00 98.6 75 20 124/69 (87) 98 01/04/19 04:00 97.2 60 16 134/72 (92) 99 60 01/04/19 00:00 97.7 62 16 111/55 (73) 97 62 01/03/19 21:00 Nasal Cannula 2.0 01/03/19 20:00 99.0 62 17 113/70 (84) 94 62 01/03/19 16:09 99.7 62 17 108/56 (73) 99 01/03/19 11:51 98.5 60 17 109/69 (82) 100 Intake and Output 01/04/19 01/05/19 19:00 07:00 Intake Total 3107.5 ml 720 ml Balance 3107.5 ml 720 ml Intake Oral 1320 ml 720 ml IV Total 1787.5 ml # Voids 2 Labs Test 01/03/19 05:30 01/03/19 15:50 01/04/19 06:45 01/04/19 16:45 White Blood Count 23.1 K/UL (4.8-10.8) 17.3 K/UL (4.8-10.8) Red Blood Count 3.44 M/UL (4.70-6.10) 3.49 M/UL (4.70-6.10) Hemoglobin 9.2 G/DL (14.2-18.0) 9.2 G/DL (14.2-18.0) Hematocrit 28.5 % (42.0-52.0) 29.0 % (42.0-52.0) Mean Corpuscular Volume 83 FL (80-99) 83 FL (80-99) Mean Corpuscular Hemoglobin 26.8 PG (27.0-31.0) 26.3 PG (27.0-31.0) Mean Corpuscular Hemoglobin Concent 32.3 G/DL (32.0-36.0) 31.6 G/DL (32.0-36.0) Red Cell Distribution Width 20.2 % (11.6-14.8) 21.7 % (11.6-14.8) Platelet Count 367 K/UL (150-450) 406 K/UL (150-450) Mean Platelet Volume 6.6 FL (6.5-10.1) 6.8 FL (6.5-10.1) Neutrophils (%) (Auto) % (45.0-75.0) % (45.0-75.0) Lymphocytes (%) (Auto) % (20.0-45.0) % (20.0-45.0) Monocytes (%) (Auto) % (1.0-10.0) % (1.0-10.0) Eosinophils (%) (Auto) % (0.0-3.0) % (0.0-3.0) Basophils (%) (Auto) % (0.0-2.0) % (0.0-2.0) Differential Total Cells Counted 100 100 Neutrophils % (Manual) 28 % (45-75) 48 % (45-75) Lymphocytes % (Manual) 63 % (20-45) 41 % (20-45) Monocytes % (Manual) 5 % (1-10) 7 % (1-10) Eosinophils % (Manual) 3 % (0-3) 1 % (0-3) Basophils % (Manual) 1 % (0-2) 2 % (0-2) Band Neutrophils 0 % (0-8) 0 % (0-8) Nucleated Red Blood Cells 61 /100 WBC 120 /100 WBC Platelet Estimate Adequate Adequate Platelet Morphology Normal Normal Hypochromasia 2+ Anisocytosis 3+ 3+ Spherocytes 2+ Reticulocyte Count 8.4 % (0.5-2.0) Sodium Level 138 MMOL/L (136-145) 139 MMOL/L (136-145) Potassium Level 4.0 MMOL/L (3.5-5.1) 3.9 MMOL/L (3.5-5.1) Chloride Level 103 MMOL/L (98-107) 103 MMOL/L (98-107) Carbon Dioxide Level 29 MMOL/L (21-32) 29 MMOL/L (21-32) Anion Gap 6 mmol/L (5-15) 7 mmol/L (5-15) Blood Urea Nitrogen 6 mg/dL (7-18) 5 mg/dL (7-18) Creatinine 0.6 MG/DL (0.55-1.30) 0.6 MG/DL (0.55-1.30) Estimat Glomerular Filtration Rate > 60 mL/min (>60) > 60 mL/min (>60) Glucose Level 99 MG/DL (74-106) 95 MG/DL (74-106) Calcium Level 8.9 MG/DL (8.5-10.1) 8.8 MG/DL (8.5-10.1) Lactate Dehydrogenase 283 U/L (81-234) 321 U/L (81-234) Vancomycin Level Trough 8.8 ug/mL (5.0-12.0) 22.2 ug/mL (5.0-12.0) Corrected White Blood Count 11.9 K/UL Myelocytes % 1 % (0-0) Polychromasia 3+ Target Cells 3+ Height (Feet): 5 Height (Inches): 6.00 Weight (Pounds): 249 Objective PHYSICAL EXAMINATION: VITAL SIGNS: have been reviewed HEENT: PERRLA. NECK: Supple. No lymphadenopathy. CHEST: Clear to auscultation CARDIOVASCULAR: Regular rate and rhythm. No murmurs or extra sounds. ABDOMEN: Soft, nontender, nondistended. No organomegaly. EXTREMITIES: No edema. Moves all four extremities. NEUROLOGIC: Sensory intact to touch. Reflexes are equal on both sides. Moves all four extremities. Lewis Olmedo MD January 05, 2019 11:16
[2019-01-05 12:00] VITALS: BP 133/65
--- NOTE | 2019-01-05 13:24 | Pulmonology Progress Note ---
Assessment/Plan Problems: (1) Sickle cell crisis (2) Port-A-Cath in place Assessment/Plan doing slightly better barrett cultures iv fluid at 150 cc/hour check electrolytes check LDH Subjective ROS Limited/Unobtainable: No Constitutional: Reports: no symptoms HEENT: Repors: no symptoms Allergies: Coded Allergies: CAPSAICIN (Verified Allergy, Unknown, 11/23/18) CEFTRIAXONE (Verified Allergy, Unknown, 11/23/18) IOPAMIDOL (Unverified Allergy, Unknown, 01/01/19) Uncoded Allergies: IV CONTRAST (Allergy, Unknown, 01/01/19) CONTRAST (Adverse Reaction, Severe, Rash, 06/23/16) RADIOCONTRAST - RASH, ITCHING Objective Last 24 Hour Vital Signs Date Time Temp Pulse Resp B/P (MAP) Pulse Ox O2 Delivery O2 Flow Rate FiO2 01/05/19 12:00 97.7 72 22 133/65 (87) 99 01/05/19 11:59 97.8 01/05/19 09:00 Nasal Cannula 2.0 01/05/19 08:00 97.8 75 22 129/85 (100) 99 01/05/19 00:00 99.1 95 20 139/71 (93) 95 01/04/19 21:00 Nasal Cannula 2.0 01/04/19 20:00 99.2 97 18 131/79 (96) 97 01/04/19 16:00 98.0 96 20 133/74 (93) 95 01/04/19 15:14 98.6 Intake and Output 01/04/19 01/05/19 19:00 07:00 Intake Total 3107.5 ml 870 ml Balance 3107.5 ml 870 ml Intake Oral 1320 ml 720 ml IV Total 1787.5 ml 150 ml # Voids 2 General Appearance: WD/WN HEENT: normocephalic, atraumatic Respiratory/Chest: chest wall non-tender, lungs clear Cardiovascular: normal peripheral pulses, normal rate Laboratory Tests 01/04/19 16:45: Vancomycin Level Trough 22.2H Current Medications Medications (Trade) Dose Ordered Sig/Arianne Route PRN Reason Start Time Stop Time Status Last Admin Dose Admin Acetaminophen (Tylenol) 650 mg Q4H PRN ORAL fever 01/01/19 19:40 01/31/19 19:39 Chlorhexidine Gluconate (Jihan-Hex 2%) 1 applic DAILY@2000 TOPIC 01/02/19 20:00 02/01/19 19:59 01/04/19 20:00 Dextrose (Dextrose 50%) 25 ml Q30M PRN IV Hypoglycemia 01/01/19 19:45 01/31/19 19:44 Dextrose (Dextrose 50%) 50 ml Q30M PRN IV Hypoglycemia 01/01/19 19:45 01/31/19 19:44 Diphenhydramine HCl (Benadryl) 50 mg Q6H PRN IVP Itching 01/02/19 11:45 02/01/19 11:44 01/05/19 08:05 Heparin Sodium (Porcine) (Heparin 5000 units/ml) 5,000 units EVERY 12 HOURS SUBQ 01/01/19 21:00 01/31/19 20:59 01/05/19 08:40 Hydromorphone HCl (Dilaudid) 2 mg Q3H PRN IV pain 4-6 01/01/19 19:45 01/08/19 19:44 01/05/19 11:29 Hydromorphone HCl (Dilaudid) 3 mg Q3H PRN IVP For Pain 7-10 01/01/19 19:41 01/08/19 19:40 01/02/19 04:43 Hydroxyurea (Hydrea) 1,500 mg DAILY ORAL 01/03/19 15:00 01/08/19 14:59 01/05/19 08:39 Lorazepam (Ativan 2mg/ml 1ml) 0.5 mg Q4H PRN IV For Anxiety 01/01/19 19:45 01/08/19 19:44 Ondansetron HCl (Zofran) 4 mg Q6H PRN IVP Nausea & Vomiting 01/02/19 11:45 02/01/19 11:44 Oxycodone HCl (OxyCONTIN) 30 mg EVERY 8 HOURS ORAL 01/02/19 14:00 01/09/19 13:59 01/05/19 05:55 Polyethylene Glycol (Miralax) 17 gm HSPRN PRN ORAL Constipation 01/01/19 21:00 01/31/19 20:59 Sodium Chloride 1,000 ml @ 160 mls/hr Q6H15M IV 01/05/19 08:30 02/04/19 08:29 01/05/19 08:38 Zolpidem Tartrate (Ambien) 5 mg HSPRN PRN ORAL Insomnia 01/01/19 21:00 01/08/19 20:59 Ranjith Caicedo MD January 05, 2019 13:24
[2019-01-05 16:05] VITALS: BP 117/80
--- NOTE | 2019-01-05 18:01 | Infectious Diseases Prog Note ---
Assessment/Plan Problems: (1) Leukocytosis Assessment & Plan: no evidence of sepsis suspect sickle cell crises related , will monitor clinically for now off antibiotics (2) Fever Assessment & Plan: no evidence of infection so far suspect sickle cell crises related , stop wide spectrum antibiotics , continue tylenol as needed (3) Port-A-Cath in place Assessment & Plan: continue local care as needed (4) Sickle cell disease Assessment & Plan: with possible crises , continue hydration with pain management as per primary Subjective Constitutional: Reports: no symptoms HEENT: Reports: no symptoms Respiratory: Reports: no symptoms Breasts: Reports: no symptoms Cardiovascular: Reports: no symptoms Gastrointestinal/Abdominal: Reports: no symptoms Genitourinary: Reports: no symptoms Neurologic: Reports: no symptoms Psychiatric: Reports: no symptoms Skin: Reports: no symptoms Endocrine: Reports: no symptoms Hematologic: Reports: no symptoms Musculoskeletal: Reports: no symptoms Allergies: Coded Allergies: CAPSAICIN (Verified Allergy, Unknown, 11/23/18) CEFTRIAXONE (Verified Allergy, Unknown, 11/23/18) IOPAMIDOL (Unverified Allergy, Unknown, 01/01/19) Uncoded Allergies: IV CONTRAST (Allergy, Unknown, 01/01/19) CONTRAST (Adverse Reaction, Severe, Rash, 06/23/16) RADIOCONTRAST - RASH, ITCHING Objective Vital Signs Last 24 Hour Vital Signs Date Time Temp Pulse Resp B/P (MAP) Pulse Ox O2 Delivery O2 Flow Rate FiO2 01/05/19 16:05 97.9 67 18 117/80 (92) 100 01/05/19 15:29 97.7 01/05/19 14:17 97.7 01/05/19 12:00 97.7 72 22 133/65 (87) 99 01/05/19 09:00 Nasal Cannula 2.0 01/05/19 08:00 97.8 75 22 129/85 (100) 99 01/05/19 00:00 99.1 95 20 139/71 (93) 95 01/04/19 21:00 Nasal Cannula 2.0 01/04/19 20:00 99.2 97 18 131/79 (96) 97 Height (Feet): 5 Height (Inches): 6.00 Weight (Pounds): 249 General Appearance: WD/WN, no acute distress HEENT: normocephalic, atraumatic, anicteric, mucous membranes moist, PERRL, EOMI, pharynx normal, supple, no JVD Respiratory/Chest: chest wall non-tender, lungs clear, normal breath sounds, no respiratory distress, no accessory muscle use, decreased breath sounds, accessory muscle use Cardiovascular: normal peripheral pulses, normal rate, regular rhythm, no gallop/murmur, no JVD Abdomen: normal bowel sounds, soft, non tender, no organomegaly, non distended , no mass, no scars Genitourinary: normal external genitalia Extremities: no cyanosis, no clubbing Skin: no rash, no lesions, no ulcers 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, no motor/sensory deficits, alert, oriented x 3, responsive Lymphatic: no neck adenopathy, no groin adenopathy Musculoskeletal: normal muscle bulk, no effusion Current Medications Medications (Trade) Dose Ordered Sig/Arianne Route PRN Reason Start Time Stop Time Status Last Admin Dose Admin Acetaminophen (Tylenol) 650 mg Q4H PRN ORAL fever 01/01/19 19:40 01/31/19 19:39 Chlorhexidine Gluconate (Jihan-Hex 2%) 1 applic DAILY@1999 TOPIC 01/02/19 20:00 02/01/19 19:59 01/04/19 20:00 Dextrose (Dextrose 50%) 25 ml Q30M PRN IV Hypoglycemia 01/01/19 19:45 01/31/19 19:44 Dextrose (Dextrose 50%) 50 ml Q30M PRN IV Hypoglycemia 01/01/19 19:45 01/31/19 19:44 Diphenhydramine HCl (Benadryl) 50 mg Q6H PRN IVP Itching 01/02/19 11:45 02/01/19 11:44 01/05/19 14:55 Heparin Sodium (Porcine) (Heparin 5000 units/ml) 5,000 units EVERY 12 HOURS SUBQ 01/01/19 21:00 01/31/19 20:59 01/05/19 08:40 Hydromorphone HCl (Dilaudid) 2 mg Q3H PRN IV pain 4-6 01/01/19 19:45 01/08/19 19:44 01/05/19 17:50 Hydromorphone HCl (Dilaudid) 3 mg Q3H PRN IVP For Pain 7-10 01/01/19 19:41 01/08/19 19:40 01/02/19 04:43 Hydroxyurea (Hydrea) 1,500 mg DAILY ORAL 01/03/19 15:00 01/08/19 14:59 01/05/19 08:39 Lorazepam (Ativan 2mg/ml 1ml) 0.5 mg Q4H PRN IV For Anxiety 01/01/19 19:45 01/08/19 19:44 Ondansetron HCl (Zofran) 4 mg Q6H PRN IVP Nausea & Vomiting 01/02/19 11:45 02/01/19 11:44 Oxycodone HCl (OxyCONTIN) 30 mg EVERY 8 HOURS ORAL 01/02/19 14:00 01/09/19 13:59 01/05/19 13:47 Polyethylene Glycol (Miralax) 17 gm HSPRN PRN ORAL Constipation 01/01/19 21:00 01/31/19 20:59 Sodium Chloride 1,000 ml @ 160 mls/hr Q6H15M IV 01/05/19 08:30 02/04/19 08:29 01/05/19 14:57 Zolpidem Tartrate (Ambien) 5 mg HSPRN PRN ORAL Insomnia 01/01/19 21:00 01/08/19 20:59 Emeka Solorzano M.D. January 05, 2019 18:01
--- NOTE | 2019-01-05 19:23 | Internal Med Progress Note ---
Subjective Date of Service: January 05, 2019 Physician Name Rubalcava,Edilson Attending Physician Jersey Bearden MD Current Medications Medications (Trade) Dose Ordered Sig/Arianne Route PRN Reason Start Time Stop Time Status Last Admin Dose Admin Acetaminophen (Tylenol) 650 mg Q4H PRN ORAL fever 01/01/19 19:40 01/31/19 19:39 Chlorhexidine Gluconate (Jihan-Hex 2%) 1 applic DAILY@2000 TOPIC 01/02/19 20:00 02/01/19 19:59 01/04/19 20:00 Dextrose (Dextrose 50%) 25 ml Q30M PRN IV Hypoglycemia 01/01/19 19:45 01/31/19 19:44 Dextrose (Dextrose 50%) 50 ml Q30M PRN IV Hypoglycemia 01/01/19 19:45 01/31/19 19:44 Diphenhydramine HCl (Benadryl) 50 mg Q6H PRN IVP Itching 01/02/19 11:45 02/01/19 11:44 01/05/19 14:55 Heparin Sodium (Porcine) (Heparin 5000 units/ml) 5,000 units EVERY 12 HOURS SUBQ 01/01/19 21:00 01/31/19 20:59 01/05/19 08:40 Hydromorphone HCl (Dilaudid) 2 mg Q3H PRN IV pain 4-6 01/01/19 19:45 01/08/19 19:44 01/05/19 17:50 Hydromorphone HCl (Dilaudid) 3 mg Q3H PRN IVP For Pain 7-10 01/01/19 19:41 01/08/19 19:40 01/02/19 04:43 Hydroxyurea (Hydrea) 1,500 mg DAILY ORAL 01/03/19 15:00 01/08/19 14:59 01/05/19 08:39 Lorazepam (Ativan 2mg/ml 1ml) 0.5 mg Q4H PRN IV For Anxiety 01/01/19 19:45 01/08/19 19:44 Ondansetron HCl (Zofran) 4 mg Q6H PRN IVP Nausea & Vomiting 01/02/19 11:45 02/01/19 11:44 Oxycodone HCl (OxyCONTIN) 30 mg EVERY 8 HOURS ORAL 01/02/19 14:00 01/09/19 13:59 01/05/19 13:47 Polyethylene Glycol (Miralax) 17 gm HSPRN PRN ORAL Constipation 01/01/19 21:00 01/31/19 20:59 Sodium Chloride 1,000 ml @ 160 mls/hr Q6H15M IV 01/05/19 08:30 02/04/19 08:29 01/05/19 14:57 Zolpidem Tartrate (Ambien) 5 mg HSPRN PRN ORAL Insomnia 01/01/19 21:00 01/08/19 20:59 Allergies: Coded Allergies: CAPSAICIN (Verified Allergy, Unknown, 11/23/18) CEFTRIAXONE (Verified Allergy, Unknown, 11/23/18) IOPAMIDOL (Unverified Allergy, Unknown, 01/01/19) Uncoded Allergies: IV CONTRAST (Allergy, Unknown, 01/01/19) CONTRAST (Adverse Reaction, Severe, Rash, 06/23/16) RADIOCONTRAST - RASH, ITCHING ROS Limited/Unobtainable: No Constitutional: Reports: no symptoms HEENT: Reports: no symptoms Cardiovascular: Reports: no symptoms Respiratory: Reports: no symptoms Gastrointestinal/Abdominal: Reports: no symptoms Genitourinary: Reports: no symptoms Neurologic/Psychiatric: Reports: no symptoms Subjective 23 YO M admitted with sickle cell crisis and leukocytosis. [facility]- Dr Bearden Objective Last Vital Signs Date Time Temp Pulse Resp B/P (MAP) Pulse Ox O2 Delivery O2 Flow Rate FiO2 01/05/19 16:05 97.9 67 18 117/80 (92) 100 01/05/19 09:00 Nasal Cannula 2.0 Intake and Output 01/04/19 01/05/19 19:00 07:00 Intake Total 3107.5 ml 870 ml Balance 3107.5 ml 870 ml Intake Oral 1320 ml 720 ml IV Total 1787.5 ml 150 ml # Voids 2 Objective PHYSICAL EXAMINATION: GENERAL: The patient is a well-developed and well-nourished male, in no apparent distress. HEENT: Eyes, pupils are equal and responsive to light and accommodation. Extraocular movements are intact. NECK: Supple without lymphadenopathy. CHEST: Lungs are clear to auscultation bilaterally without wheezes or rales. CARDIOVASCULAR: Regular rhythm and rate. S1 and S2 are normal without murmurs, rubs, or gallops. ABDOMEN: Soft, nontender, and nondistended. Positive bowel sounds. No evidence of hepatosplenomegaly. Currently, no rebound or guarding noted. EXTREMITIES: Negative for clubbing, cyanosis, or edema. RECTAL/GENITAL: Refused. NEUROLOGIC: Cranial nerves II through XII are grossly intact without focal deficits. Motor strength is 5/5 bilaterally. Deep tendon reflexes are 2+ plantar. Assessment/Plan Assessment/Plan ASSESSMENT: This is a 23-year-old white male. 1. Sickle cell crisis. 2. Sickle cell disease. 3. Asthma. 4. Avascular necrosis of the left hip. 5. Leukocytosis; R/O sepsis TREATMENT: 1. Sickle cell crisis/sickle cell disease. A Hematology/Oncology consultation was obtained with Dr. Kerline Davenport. The patient is currently receiving intravenous fluids and pain management intravenously. We will follow recommendations of Hematology/Oncology. 2. Asthma. Continue Advair as above. 3. Avascular necrosis of the hip. 4. Leukocytosis. Given the recent history of sepsis, an Infectious Disease consultation has been obtained with Dr. Solorzano. Blood cultures are pending. Abx=vancomycin and aztreonam per Edilson Dennis MD January 05, 2019 19:23
[2019-01-05 20:00] VITALS: BP 140/71
[2019-01-05] MEDS: Dyna-Hex 2% Top Sol 2oz TOPIC SCH (20:00)
[2019-01-06] VITALS: BP 122/73
[2019-01-06] MEDS: DiphenhydrAMINE 50mg/ml Inj IVP PRN ×3 (04:12→19:27)
[2019-01-06] MEDS: oxyCONTIN 10mg tab ORAL SCH ×3 (05:37→22:51)
[2019-01-06 06:00] LABS: BASOPHILS % (AUTO) 0.8 % (0.0-2.0); EOSINOPHILS % (AUTO) 2.1 % (0.0-3.0); HEMATOCRIT 26.9 % (42.0-52.0); HEMOGLOBIN 9.1 G/DL (14.2-18.0); LYMPHOCYTES % (AUTO) 30.2 % (20.0-45.0); MEAN CORPUSCULAR VOLUME 81 FL (80-99); NEUTROPHILS % (AUTO) 56.9 % (45.0-75.0); PLATELET COUNT 392 K/UL (150-450); RED CELL DISTRIBUTION WIDTH 20.8 % (11.6-14.8); WHITE BLOOD COUNT 17.4 K/UL (4.8-10.8)
[2019-01-06 06:17] LABS: ALANINE AMINOTRANSFERASE 105 U/L (12-78); ALBUMIN 3.5 G/DL (3.4-5.0); ALBUMIN/GLOBULIN RATIO 0.9 (1.0-2.7); ALKALINE PHOSPHATASE 100 U/L (46-116); ANION GAP 8 mmol/L (5-15); ASPARTATE AMINO TRANSFERASE 61 U/L (15-37); BILIRUBIN,TOTAL 1.7 MG/DL (0.2-1.0); BLOOD UREA NITROGEN 5 mg/dL (7-18); CALCIUM 8.7 MG/DL (8.5-10.1); CARBON DIOXIDE 29 MMOL/L (21-32); CHLORIDE 102 MMOL/L (98-107); CREATININE 0.8 MG/DL (0.55-1.30); LACTATE DEHYDROGENASE 337 U/L (81-234); PHOSPHORUS 3.3 MG/DL (2.5-4.9); POTASSIUM 3.4 MMOL/L (3.5-5.1); SODIUM 139 MMOL/L (136-145)
[2019-01-06 06:19] LABS: BILIRUBIN,DIRECT 0.4 MG/DL (0.0-0.3)
[2019-01-06 08:00] VITALS: BP 136/85
[2019-01-06] MEDS: Hydroxyurea 500mg cap ORAL SCH (08:19)
[2019-01-06] MEDS: Heparin 5000 units/ml inj SUBQ SCH ×2 (08:22→20:29)
[2019-01-06] MEDS ORDERED: 1/2 NS 1000ml IV ONE ×2 (09:47→16:57)
[2019-01-06 12:00] VITALS: BP 158/81
--- NOTE | 2019-01-06 13:35 | Internal Med Progress Note ---
Subjective Date of Service: Jan 06, 2019 Physician Name Rubalcava,Edilson Attending Physician Jersey Bearden MD Current Medications Medications (Trade) Dose Ordered Sig/Arianne Route PRN Reason Start Time Stop Time Status Last Admin Dose Admin Acetaminophen (Tylenol) 650 mg Q4H PRN ORAL fever 01/01/19 19:40 01/31/19 19:39 Chlorhexidine Gluconate (Jihan-Hex 2%) 1 applic DAILY@2000 TOPIC 01/02/19 20:00 02/01/19 19:59 01/05/19 20:00 Dextrose (Dextrose 50%) 25 ml Q30M PRN IV Hypoglycemia 01/01/19 19:45 01/31/19 19:44 Dextrose (Dextrose 50%) 50 ml Q30M PRN IV Hypoglycemia 01/01/19 19:45 01/31/19 19:44 Diphenhydramine HCl (Benadryl) 50 mg Q6H PRN IVP Itching 01/02/19 11:45 02/01/19 11:44 01/06/19 11:46 Heparin Sodium (Porcine) (Heparin 5000 units/ml) 5,000 units EVERY 12 HOURS SUBQ 01/01/19 21:00 01/31/19 20:59 01/05/19 08:40 Hydromorphone HCl (Dilaudid) 2 mg Q3H PRN IV pain 4-6 01/01/19 19:45 01/08/19 19:44 01/06/19 04:13 Hydromorphone HCl (Dilaudid) 3 mg Q3H PRN IVP For Pain 7-10 01/01/19 19:41 01/08/19 19:40 01/06/19 11:47 Hydroxyurea (Hydrea) 1,500 mg DAILY ORAL 01/03/19 15:00 01/08/19 14:59 01/06/19 08:19 Lorazepam (Ativan 2mg/ml 1ml) 0.5 mg Q4H PRN IV For Anxiety 01/01/19 19:45 01/08/19 19:44 Ondansetron HCl (Zofran) 4 mg Q6H PRN IVP Nausea & Vomiting 01/02/19 11:45 02/01/19 11:44 01/05/19 22:21 Oxycodone HCl (OxyCONTIN) 30 mg EVERY 8 HOURS ORAL 01/02/19 14:00 01/09/19 13:59 01/06/19 13:19 Polyethylene Glycol (Miralax) 17 gm HSPRN PRN ORAL Constipation 01/01/19 21:00 01/31/19 20:59 Sodium Chloride 1,000 ml @ 160 mls/hr Q6H15M IV 01/05/19 08:30 02/04/19 08:29 01/06/19 09:13 Zolpidem Tartrate (Ambien) 5 mg HSPRN PRN ORAL Insomnia 01/01/19 21:00 01/08/19 20:59 Allergies: Coded Allergies: CAPSAICIN (Verified Allergy, Unknown, 11/23/18) CEFTRIAXONE (Verified Allergy, Unknown, 11/23/18) IOPAMIDOL (Unverified Allergy, Unknown, 01/01/19) Uncoded Allergies: IV CONTRAST (Allergy, Unknown, 01/01/19) CONTRAST (Adverse Reaction, Severe, Rash, 06/23/16) RADIOCONTRAST - RASH, ITCHING ROS Limited/Unobtainable: No Constitutional: Reports: no symptoms HEENT: Reports: no symptoms Cardiovascular: Reports: no symptoms Respiratory: Reports: no symptoms Gastrointestinal/Abdominal: Reports: no symptoms Genitourinary: Reports: no symptoms Neurologic/Psychiatric: Reports: no symptoms Subjective 23 YO M admitted with sickle cell crisis and leukocytosis. Cover for Int Med- Dr Bearden Objective Last Vital Signs Date Time Temp Pulse Resp B/P (MAP) Pulse Ox O2 Delivery O2 Flow Rate FiO2 01/06/19 12:00 99.1 81 16 158/81 (106) 98 01/06/19 09:00 Nasal Cannula 2.0 Laboratory Tests Test 01/06/19 04:15 White Blood Count 17.4 K/UL (4.8-10.8) H Red Blood Count 3.30 M/UL (4.70-6.10) L Hemoglobin 9.1 G/DL (14.2-18.0) L Hematocrit 26.9 % (42.0-52.0) L Mean Corpuscular Volume 81 FL (80-99) Mean Corpuscular Hemoglobin 27.4 PG (27.0-31.0) Mean Corpuscular Hemoglobin Concent 33.8 G/DL (32.0-36.0) Red Cell Distribution Width 20.8 % (11.6-14.8) H Platelet Count 392 K/UL (150-450) Mean Platelet Volume 6.4 FL (6.5-10.1) L Neutrophils (%) (Auto) 56.9 % (45.0-75.0) Lymphocytes (%) (Auto) 30.2 % (20.0-45.0) Monocytes (%) (Auto) 10.0 % (1.0-10.0) Eosinophils (%) (Auto) 2.1 % (0.0-3.0) Basophils (%) (Auto) 0.8 % (0.0-2.0) Erythrocyte Sedimentation Rate 12 MM/HR (0-15) Reticulocyte Count 14.8 % (0.5-2.0) H Sodium Level 139 MMOL/L (136-145) Potassium Level 3.4 MMOL/L (3.5-5.1) L Chloride Level 102 MMOL/L (98-107) Carbon Dioxide Level 29 MMOL/L (21-32) Anion Gap 8 mmol/L (5-15) Blood Urea Nitrogen 5 mg/dL (7-18) L Creatinine 0.8 MG/DL (0.55-1.30) Estimat Glomerular Filtration Rate > 60 mL/min (>60) Glucose Level 92 MG/DL (74-106) Calcium Level 8.7 MG/DL (8.5-10.1) Phosphorus Level 3.3 MG/DL (2.5-4.9) Magnesium Level 1.8 MG/DL (1.8-2.4) Total Bilirubin 1.7 MG/DL (0.2-1.0) H Direct Bilirubin 0.4 MG/DL (0.0-0.3) H Aspartate Amino Transf (AST/SGOT) 61 U/L (15-37) H Alanine Aminotransferase (ALT/SGPT) 105 U/L (12-78) H Alkaline Phosphatase 100 U/L (46-116) Lactate Dehydrogenase 337 U/L (81-234) H Total Protein 7.5 G/DL (6.4-8.2) Albumin 3.5 G/DL (3.4-5.0) Globulin 4.0 g/dL Albumin/Globulin Ratio 0.9 (1.0-2.7) L Intake and Output 01/05/19 01/06/19 19:00 07:00 Intake Total 2410 ml 2720 ml Output Total 800 ml 2425 ml Balance 1610 ml 295 ml Intake Oral 500 ml 2720 ml IV Total 1910 ml Output Urine Total 800 ml 2425 ml # Voids 2 3 Objective PHYSICAL EXAMINATION: GENERAL: The patient is a well-developed and well-nourished male, in no apparent distress. HEENT: Eyes, pupils are equal and responsive to light and accommodation. Extraocular movements are intact. NECK: Supple without lymphadenopathy. CHEST: Lungs are clear to auscultation bilaterally without wheezes or rales. CARDIOVASCULAR: Regular rhythm and rate. S1 and S2 are normal without murmurs, rubs, or gallops. ABDOMEN: Soft, nontender, and nondistended. Positive bowel sounds. No evidence of hepatosplenomegaly. Currently, no rebound or guarding noted. EXTREMITIES: Negative for clubbing, cyanosis, or edema. RECTAL/GENITAL: Refused. NEUROLOGIC: Cranial nerves II through XII are grossly intact without focal deficits. Motor strength is 5/5 bilaterally. Deep tendon reflexes are 2+ plantar. Assessment/Plan Assessment/Plan ASSESSMENT: This is a 23-year-old white male. 1. Sickle cell crisis. 2. Sickle cell disease. 3. Asthma. 4. Avascular necrosis of the left hip. 5. Leukocytosis; R/O sepsis TREATMENT: 1. Sickle cell crisis/sickle cell disease. A Hematology/Oncology consultation was obtained with Dr. Kerline Davenport. The patient is currently receiving intravenous fluids and pain management intravenously. We will follow recommendations of Hematology/Oncology. 2. Asthma. Continue Advair as above. 3. Avascular necrosis of the hip. 4. Leukocytosis. Resolving. An Infectious Disease consultation has been obtained with Dr. Solorzano. Blood cultures are negative. Abx=vancomycin and aztreonam per Edilson Dennis MD Jan 06, 2019 13:35
[2019-01-06 16:00] VITALS: BP 134/88
--- NOTE | 2019-01-06 17:27 | Infectious Diseases Prog Note ---
Assessment/Plan Problems: (1) Leukocytosis Assessment & Plan: no evidence of sepsis suspect sickle cell crises related , will monitor clinically for now off antibiotics (2) Fever Assessment & Plan: no evidence of infection so far suspect sickle cell crises related , monitor off antibiotics , continue tylenol as needed (3) Port-A-Cath in place Assessment & Plan: continue local care as needed (4) Sickle cell disease Assessment & Plan: with possible crises , continue hydration with pain management as per primary Subjective Constitutional: Reports: no symptoms HEENT: Reports: no symptoms Respiratory: Reports: no symptoms Breasts: Reports: no symptoms Cardiovascular: Reports: no symptoms Gastrointestinal/Abdominal: Reports: no symptoms Genitourinary: Reports: no symptoms Neurologic: Reports: no symptoms Psychiatric: Reports: no symptoms Skin: Reports: no symptoms Endocrine: Reports: no symptoms Hematologic: Reports: no symptoms Musculoskeletal: Reports: no symptoms Allergies: Coded Allergies: CAPSAICIN (Verified Allergy, Unknown, 11/23/18) CEFTRIAXONE (Verified Allergy, Unknown, 11/23/18) IOPAMIDOL (Unverified Allergy, Unknown, 01/01/19) Uncoded Allergies: IV CONTRAST (Allergy, Unknown, 01/01/19) CONTRAST (Adverse Reaction, Severe, Rash, 06/23/16) RADIOCONTRAST - RASH, ITCHING Objective Vital Signs Last 24 Hour Vital Signs Date Time Temp Pulse Resp B/P (MAP) Pulse Ox O2 Delivery O2 Flow Rate FiO2 01/06/19 12:00 99.1 81 16 158/81 (106) 98 01/06/19 09:00 Nasal Cannula 2.0 01/06/19 08:00 98.4 91 19 136/85 (102) 97 01/06/19 00:00 98.6 65 20 122/73 (89) 95 01/05/19 21:00 Nasal Cannula 2.0 01/05/19 20:00 98.4 82 18 140/71 (94) 96 Height (Feet): 5 Height (Inches): 6.00 Weight (Pounds): 249 General Appearance: WD/WN, no acute distress HEENT: normocephalic, atraumatic, anicteric, mucous membranes moist, PERRL, EOMI, pharynx normal, supple, no JVD Respiratory/Chest: chest wall non-tender, lungs clear, normal breath sounds, no respiratory distress, no accessory muscle use Cardiovascular: normal peripheral pulses, normal rate, regular rhythm, no gallop/murmur, no JVD Abdomen: normal bowel sounds, soft, non tender, no organomegaly, non distended , no mass, no scars Genitourinary: normal external genitalia Extremities: no cyanosis, no clubbing Skin: no rash, no lesions, no ulcers 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, no motor/sensory deficits, alert, responsive Lymphatic: no neck adenopathy, no groin adenopathy Musculoskeletal: normal muscle bulk, no effusion Laboratory Tests Test 01/06/19 04:15 White Blood Count 17.4 K/UL (4.8-10.8) H Red Blood Count 3.30 M/UL (4.70-6.10) L Hemoglobin 9.1 G/DL (14.2-18.0) L Hematocrit 26.9 % (42.0-52.0) L Mean Corpuscular Volume 81 FL (80-99) Mean Corpuscular Hemoglobin 27.4 PG (27.0-31.0) Mean Corpuscular Hemoglobin Concent 33.8 G/DL (32.0-36.0) Red Cell Distribution Width 20.8 % (11.6-14.8) H Platelet Count 392 K/UL (150-450) Mean Platelet Volume 6.4 FL (6.5-10.1) L Neutrophils (%) (Auto) 56.9 % (45.0-75.0) Lymphocytes (%) (Auto) 30.2 % (20.0-45.0) Monocytes (%) (Auto) 10.0 % (1.0-10.0) Eosinophils (%) (Auto) 2.1 % (0.0-3.0) Basophils (%) (Auto) 0.8 % (0.0-2.0) Erythrocyte Sedimentation Rate 12 MM/HR (0-15) Reticulocyte Count 14.8 % (0.5-2.0) H Sodium Level 139 MMOL/L (136-145) Potassium Level 3.4 MMOL/L (3.5-5.1) L Chloride Level 102 MMOL/L (98-107) Carbon Dioxide Level 29 MMOL/L (21-32) Anion Gap 8 mmol/L (5-15) Blood Urea Nitrogen 5 mg/dL (7-18) L Creatinine 0.8 MG/DL (0.55-1.30) Estimat Glomerular Filtration Rate > 60 mL/min (>60) Glucose Level 92 MG/DL (74-106) Calcium Level 8.7 MG/DL (8.5-10.1) Phosphorus Level 3.3 MG/DL (2.5-4.9) Magnesium Level 1.8 MG/DL (1.8-2.4) Total Bilirubin 1.7 MG/DL (0.2-1.0) H Direct Bilirubin 0.4 MG/DL (0.0-0.3) H Aspartate Amino Transf (AST/SGOT) 61 U/L (15-37) H Alanine Aminotransferase (ALT/SGPT) 105 U/L (12-78) H Alkaline Phosphatase 100 U/L (46-116) Lactate Dehydrogenase 337 U/L (81-234) H Total Protein 7.5 G/DL (6.4-8.2) Albumin 3.5 G/DL (3.4-5.0) Globulin 4.0 g/dL Albumin/Globulin Ratio 0.9 (1.0-2.7) L Current Medications Medications (Trade) Dose Ordered Sig/Arianne Route PRN Reason Start Time Stop Time Status Last Admin Dose Admin Acetaminophen (Tylenol) 650 mg Q4H PRN ORAL fever 01/01/19 19:40 01/31/19 19:39 Chlorhexidine Gluconate (Jihan-Hex 2%) 1 applic DAILY@2000 TOPIC 01/02/19 20:00 02/01/19 19:59 01/05/19 20:00 Dextrose (Dextrose 50%) 25 ml Q30M PRN IV Hypoglycemia 01/01/19 19:45 01/31/19 19:44 Dextrose (Dextrose 50%) 50 ml Q30M PRN IV Hypoglycemia 01/01/19 19:45 01/31/19 19:44 Diphenhydramine HCl (Benadryl) 50 mg Q6H PRN IVP Itching 01/02/19 11:45 02/01/19 11:44 01/06/19 11:46 Heparin Sodium (Porcine) (Heparin 5000 units/ml) 5,000 units EVERY 12 HOURS SUBQ 01/01/19 21:00 01/31/19 20:59 01/05/19 08:40 Hydromorphone HCl (Dilaudid) 2 mg Q3H PRN IV pain 4-6 01/01/19 19:45 01/08/19 19:44 01/06/19 04:13 Hydromorphone HCl (Dilaudid) 3 mg Q3H PRN IVP For Pain 7-10 01/01/19 19:41 01/08/19 19:40 01/06/19 16:11 Hydroxyurea (Hydrea) 1,500 mg DAILY ORAL 01/03/19 15:00 01/08/19 14:59 01/06/19 08:19 Lorazepam (Ativan 2mg/ml 1ml) 0.5 mg Q4H PRN IV For Anxiety 01/01/19 19:45 01/08/19 19:44 Ondansetron HCl (Zofran) 4 mg Q6H PRN IVP Nausea & Vomiting 01/02/19 11:45 02/01/19 11:44 01/05/19 22:21 Oxycodone HCl (OxyCONTIN) 30 mg EVERY 8 HOURS ORAL 01/02/19 14:00 01/09/19 13:59 01/06/19 13:19 Polyethylene Glycol (Miralax) 17 gm HSPRN PRN ORAL Constipation 01/01/19 21:00 01/31/19 20:59 Sodium Chloride 1,000 ml @ 160 mls/hr Q6H15M IV 01/05/19 08:30 02/04/19 08:29 01/06/19 16:11 Zolpidem Tartrate (Ambien) 5 mg HSPRN PRN ORAL Insomnia 01/01/19 21:00 01/08/19 20:59 Emeka Solorzano M.D. Jan 06, 2019 17:27
[2019-01-06 20:00] VITALS: BP 111/88
[2019-01-06] MEDS: Dyna-Hex 2% Top Sol 2oz TOPIC SCH ×2 (20:00→20:26)
[2019-01-07] VITALS: BP 118/64
[2019-01-07] MEDS: DiphenhydrAMINE 50mg/ml Inj IVP PRN ×4 (01:54→22:32)
[2019-01-07 04:00] VITALS: BP 132/66
[2019-01-07] MEDS: oxyCONTIN 10mg tab ORAL SCH ×3 (05:59→22:03)
[2019-01-07 06:55] LABS: EOSINOPHILS % (AUTO) 3.7 % (0.0-3.0); HEMATOCRIT 25.3 % (42.0-52.0); LYMPHOCYTES % (AUTO) 35.7 % (20.0-45.0); MEAN CORPUSCULAR VOLUME 84 FL (80-99); MONOCYTES % (AUTO) 10.4 % (1.0-10.0); NEUTROPHILS % (AUTO) 49.3 % (45.0-75.0); PLATELET COUNT 310 K/UL (150-450); RED BLOOD COUNT 3.02 M/UL (4.70-6.10); RED CELL DISTRIBUTION WIDTH 19.9 % (11.6-14.8); WHITE BLOOD COUNT 11.3 K/UL (4.8-10.8)
[2019-01-07 07:03] LABS: ANION GAP 6 mmol/L (5-15); BLOOD UREA NITROGEN 4 mg/dL (7-18); CALCIUM 8.5 MG/DL (8.5-10.1); CARBON DIOXIDE 30 MMOL/L (21-32); CHLORIDE 103 MMOL/L (98-107); CREATININE 0.6 MG/DL (0.55-1.30); POTASSIUM 3.8 MMOL/L (3.5-5.1); SODIUM 139 MMOL/L (136-145)
[2019-01-07 08:00] VITALS: BP 129/71
[2019-01-07] MEDS: Heparin 5000 units/ml inj SUBQ SCH ×2 (09:00→20:44)
[2019-01-07] MEDS: Hydroxyurea 500mg cap ORAL SCH (09:03)
[2019-01-07 12:00] VITALS: BP 131/69
--- NOTE | 2019-01-07 14:31 | Internal Med Progress Note ---
Subjective Date of Service: Jan 07, 2019 Physician Name Rubalcava,Edilson Attending Physician Jersey Bearden MD Current Medications Medications (Trade) Dose Ordered Sig/Arianne Route PRN Reason Start Time Stop Time Status Last Admin Dose Admin Acetaminophen (Tylenol) 650 mg Q4H PRN ORAL fever 01/01/19 19:40 01/31/19 19:39 01/06/19 20:33 Chlorhexidine Gluconate (Jihan-Hex 2%) 1 applic DAILY@2000 TOPIC 01/02/19 20:00 02/01/19 19:59 01/05/19 20:00 Dextrose (Dextrose 50%) 25 ml Q30M PRN IV Hypoglycemia 01/01/19 19:45 01/31/19 19:44 Dextrose (Dextrose 50%) 50 ml Q30M PRN IV Hypoglycemia 01/01/19 19:45 01/31/19 19:44 Diphenhydramine HCl (Benadryl) 50 mg Q6H PRN IVP Itching 01/02/19 11:45 02/01/19 11:44 01/07/19 09:03 Heparin Sodium (Porcine) (Heparin 5000 units/ml) 5,000 units EVERY 12 HOURS SUBQ 01/01/19 21:00 01/31/19 20:59 01/06/19 20:29 Hydromorphone HCl (Dilaudid) 2 mg Q3H PRN IV pain 4-6 01/01/19 19:45 01/08/19 19:44 01/07/19 12:28 Hydromorphone HCl (Dilaudid) 3 mg Q3H PRN IVP For Pain 7-10 01/01/19 19:41 01/08/19 19:40 01/07/19 05:02 Hydroxyurea (Hydrea) 1,500 mg DAILY ORAL 01/03/19 15:00 01/08/19 14:59 01/07/19 09:03 Lorazepam (Ativan 2mg/ml 1ml) 0.5 mg Q4H PRN IV For Anxiety 01/01/19 19:45 01/08/19 19:44 Ondansetron HCl (Zofran) 4 mg Q6H PRN IVP Nausea & Vomiting 01/02/19 11:45 02/01/19 11:44 01/05/19 22:21 Oxycodone HCl (OxyCONTIN) 30 mg EVERY 8 HOURS ORAL 01/02/19 14:00 01/09/19 13:59 01/07/19 14:00 Polyethylene Glycol (Miralax) 17 gm HSPRN PRN ORAL Constipation 01/01/19 21:00 01/31/19 20:59 Sodium Chloride 1,000 ml @ 160 mls/hr Q6H15M IV 01/05/19 08:30 02/04/19 08:29 01/07/19 12:32 Zolpidem Tartrate (Ambien) 5 mg HSPRN PRN ORAL Insomnia 01/01/19 21:00 01/08/19 20:59 Allergies: Coded Allergies: CAPSAICIN (Verified Allergy, Unknown, 11/23/18) CEFTRIAXONE (Verified Allergy, Unknown, 11/23/18) IOPAMIDOL (Unverified Allergy, Unknown, 01/01/19) Uncoded Allergies: IV CONTRAST (Allergy, Unknown, 01/01/19) CONTRAST (Adverse Reaction, Severe, Rash, 06/23/16) RADIOCONTRAST - RASH, ITCHING ROS Limited/Unobtainable: No Constitutional: Reports: no symptoms HEENT: Reports: no symptoms Cardiovascular: Reports: no symptoms Respiratory: Reports: no symptoms Gastrointestinal/Abdominal: Reports: no symptoms Genitourinary: Reports: no symptoms Neurologic/Psychiatric: Reports: no symptoms Subjective 23 YO M admitted with sickle cell crisis and leukocytosis. Cover for Int Franky- Dr Bearden Objective Last Vital Signs Date Time Temp Pulse Resp B/P (MAP) Pulse Ox O2 Delivery O2 Flow Rate FiO2 01/07/19 09:00 Room Air 01/07/19 08:00 98.9 64 18 129/71 (90) 97 01/06/19 09:00 2.0 Laboratory Tests Test 01/07/19 04:50 White Blood Count 11.3 K/UL (4.8-10.8) H Red Blood Count 3.02 M/UL (4.70-6.10) L Hemoglobin 8.0 G/DL (14.2-18.0) L Hematocrit 25.3 % (42.0-52.0) L Mean Corpuscular Volume 84 FL (80-99) Mean Corpuscular Hemoglobin 26.4 PG (27.0-31.0) L Mean Corpuscular Hemoglobin Concent 31.5 G/DL (32.0-36.0) L Red Cell Distribution Width 19.9 % (11.6-14.8) H Platelet Count 310 K/UL (150-450) Mean Platelet Volume 6.9 FL (6.5-10.1) Neutrophils (%) (Auto) 49.3 % (45.0-75.0) Lymphocytes (%) (Auto) 35.7 % (20.0-45.0) Monocytes (%) (Auto) 10.4 % (1.0-10.0) H Eosinophils (%) (Auto) 3.7 % (0.0-3.0) H Basophils (%) (Auto) 1.0 % (0.0-2.0) Sodium Level 139 MMOL/L (136-145) Potassium Level 3.8 MMOL/L (3.5-5.1) Chloride Level 103 MMOL/L (98-107) Carbon Dioxide Level 30 MMOL/L (21-32) Anion Gap 6 mmol/L (5-15) Blood Urea Nitrogen 4 mg/dL (7-18) L Creatinine 0.6 MG/DL (0.55-1.30) Estimat Glomerular Filtration Rate > 60 mL/min (>60) Glucose Level 127 MG/DL (74-106) H Calcium Level 8.5 MG/DL (8.5-10.1) Intake and Output 01/06/19 01/07/19 19:00 07:00 Intake Total 1500 ml 2280 ml Output Total 1600 ml 1525 ml Balance -100 ml 755 ml Intake Oral 1500 ml 360 ml IV Total 1920 ml Output Urine Total 1600 ml 1525 ml Objective PHYSICAL EXAMINATION: GENERAL: The patient is a well-developed and well-nourished male, in no apparent distress. HEENT: Eyes, pupils are equal and responsive to light and accommodation. Extraocular movements are intact. NECK: Supple without lymphadenopathy. CHEST: Lungs are clear to auscultation bilaterally without wheezes or rales. CARDIOVASCULAR: Regular rhythm and rate. S1 and S2 are normal without murmurs, rubs, or gallops. ABDOMEN: Soft, nontender, and nondistended. Positive bowel sounds. No evidence of hepatosplenomegaly. Currently, no rebound or guarding noted. EXTREMITIES: Negative for clubbing, cyanosis, or edema. RECTAL/GENITAL: Refused. NEUROLOGIC: Cranial nerves II through XII are grossly intact without focal deficits. Motor strength is 5/5 bilaterally. Deep tendon reflexes are 2+ plantar. Assessment/Plan Assessment/Plan ASSESSMENT: This is a 23-year-old white male. 1. Sickle cell crisis. 2. Sickle cell disease. 3. Asthma. 4. Avascular necrosis of the left hip. 5. Leukocytosis; R/O sepsis TREATMENT: 1. Sickle cell crisis/sickle cell disease. A Hematology/Oncology consultation was obtained with Dr. Kerline Davenport. The patient is currently receiving intravenous fluids and pain management intravenously. We will follow recommendations of Hematology/Oncology. 2. Asthma. Continue Advair as above. 3. Avascular necrosis of the hip. 4. Leukocytosis. Resolving. An Infectious Disease consultation has been obtained with Dr. Solorzano. Blood cultures are negative. D/C vancomycin and aztreonam per Edilson Dennis MD Jan 07, 2019 14:31
--- NOTE | 2019-01-07 14:40 | Hematology/Onc Progress Note ---
Assessment/Plan Assessment/Plan ASSESSMENT AND PLAN: 1. 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 --> Presented in sickle crisis. on hydrea, opioids --> retic daily on a prn basis, proper response shown --> cbc has been reviewed --> continue hydrea 1500mg po daily --> continue indiral powder adjunct medication --> appreciate pain management recs --> stable for dc --> return precautions given --> [place] iron chelating agent with Dr. Kerline Davenport as outpatient 2. Anemia, secondary to sickle cell disease/B thalassemia --> trend hgb 10-->8.8-->9.2-->8.0 --> retic and ldh daily --> Hgb goal >7. 3. Thrombocytosis, potentially secondary to reactive process --> Currently WDL --> Plt trend: 616k -->512k--406k-->310k 4. Hyperproteinemia --> spep reviewed last admission 5. Leukocytosis could be related to infection --> WBC improving, currently at 11.3 --> monitor for fever, if recurrent, obtain w/i --> Blood cx negative The timing of this note does not necessarily reflect the time of the patient was seen. Greatly appreciate consultation! Subjective Allergies: Coded Allergies: CAPSAICIN (Verified Allergy, Unknown, 11/23/18) CEFTRIAXONE (Verified Allergy, Unknown, 11/23/18) IOPAMIDOL (Unverified Allergy, Unknown, 01/01/19) Uncoded Allergies: IV CONTRAST (Allergy, Unknown, 01/01/19) CONTRAST (Adverse Reaction, Severe, Rash, 06/23/16) RADIOCONTRAST - RASH, ITCHING Subjective 01/04: no events noted, labs reviewed, no changes 01/05: Patient is awake alert, no acute distress noted but patient is reporting generalized body pain. 01/07: Pt seen and examined, alert and oriented x4, no sign of distress Objective Objective Current Medications Medications (Trade) Dose Ordered Sig/Arianne Route PRN Reason Start Time Stop Time Status Last Admin Dose Admin Acetaminophen (Tylenol) 650 mg Q4H PRN ORAL fever 01/01/19 19:40 01/31/19 19:39 01/06/19 20:33 Chlorhexidine Gluconate (Jihan-Hex 2%) 1 applic DAILY@2000 TOPIC 01/02/19 20:00 02/01/19 19:59 01/05/19 20:00 Dextrose (Dextrose 50%) 25 ml Q30M PRN IV Hypoglycemia 01/01/19 19:45 01/31/19 19:44 Dextrose (Dextrose 50%) 50 ml Q30M PRN IV Hypoglycemia 01/01/19 19:45 01/31/19 19:44 Diphenhydramine HCl (Benadryl) 50 mg Q6H PRN IVP Itching 01/02/19 11:45 02/01/19 11:44 01/07/19 09:03 Heparin Sodium (Porcine) (Heparin 5000 units/ml) 5,000 units EVERY 12 HOURS SUBQ 01/01/19 21:00 01/31/19 20:59 01/06/19 20:29 Hydromorphone HCl (Dilaudid) 2 mg Q3H PRN IV pain 4-6 01/01/19 19:45 01/08/19 19:44 01/07/19 12:28 Hydromorphone HCl (Dilaudid) 3 mg Q3H PRN IVP For Pain 7-10 01/01/19 19:41 01/08/19 19:40 01/07/19 05:02 Hydroxyurea (Hydrea) 1,500 mg DAILY ORAL 01/03/19 15:00 01/08/19 14:59 01/07/19 09:03 Lorazepam (Ativan 2mg/ml 1ml) 0.5 mg Q4H PRN IV For Anxiety 01/01/19 19:45 01/08/19 19:44 Ondansetron HCl (Zofran) 4 mg Q6H PRN IVP Nausea & Vomiting 01/02/19 11:45 02/01/19 11:44 01/05/19 22:21 Oxycodone HCl (OxyCONTIN) 30 mg EVERY 8 HOURS ORAL 01/02/19 14:00 01/09/19 13:59 01/07/19 14:00 Polyethylene Glycol (Miralax) 17 gm HSPRN PRN ORAL Constipation 01/01/19 21:00 01/31/19 20:59 Sodium Chloride 1,000 ml @ 160 mls/hr Q6H15M IV 01/05/19 08:30 02/04/19 08:29 01/07/19 12:32 Zolpidem Tartrate (Ambien) 5 mg HSPRN PRN ORAL Insomnia 01/01/19 21:00 01/08/19 20:59 Last 24 Hour Vital Signs Date Time Temp Pulse Resp B/P (MAP) Pulse Ox O2 Delivery O2 Flow Rate FiO2 01/07/19 12:00 99.3 78 18 131/69 (89) 100 01/07/19 09:00 Room Air 01/07/19 08:00 98.9 64 18 129/71 (90) 97 01/07/19 04:00 97.9 65 24 132/66 (88) 97 01/07/19 00:00 97.9 67 20 118/64 (82) 95 01/06/19 23:21 99.9 01/06/19 23:21 99.9 01/06/19 23:08 99.9 01/06/19 21:00 Room Air 01/06/19 20:00 100.9 88 16 111/88 (96) 97 01/06/19 16:00 99.8 70 19 134/88 (103) 99 01/06/19 12:00 99.1 81 16 158/81 (106) 98 01/06/19 09:00 Nasal Cannula 2.0 01/06/19 08:00 98.4 91 19 136/85 (102) 97 01/06/19 00:00 98.6 65 20 122/73 (89) 95 01/05/19 21:00 Nasal Cannula 2.0 01/05/19 20:00 98.4 82 18 140/71 (94) 96 01/05/19 16:05 97.9 67 18 117/80 (92) 100 01/05/19 15:29 97.7 Intake and Output 01/06/19 01/07/19 19:00 07:00 Intake Total 1500 ml 2280 ml Output Total 1600 ml 1525 ml Balance -100 ml 755 ml Intake Oral 1500 ml 360 ml IV Total 1920 ml Output Urine Total 1600 ml 1525 ml Labs Test 01/04/19 16:45 01/06/19 04:15 01/07/19 04:50 Vancomycin Level Trough 22.2 ug/mL (5.0-12.0) White Blood Count 17.4 K/UL (4.8-10.8) 11.3 K/UL (4.8-10.8) Red Blood Count 3.30 M/UL (4.70-6.10) 3.02 M/UL (4.70-6.10) Hemoglobin 9.1 G/DL (14.2-18.0) 8.0 G/DL (14.2-18.0) Hematocrit 26.9 % (42.0-52.0) 25.3 % (42.0-52.0) Mean Corpuscular Volume 81 FL (80-99) 84 FL (80-99) Mean Corpuscular Hemoglobin 27.4 PG (27.0-31.0) 26.4 PG (27.0-31.0) Mean Corpuscular Hemoglobin Concent 33.8 G/DL (32.0-36.0) 31.5 G/DL (32.0-36.0) Red Cell Distribution Width 20.8 % (11.6-14.8) 19.9 % (11.6-14.8) Platelet Count 392 K/UL (150-450) 310 K/UL (150-450) Mean Platelet Volume 6.4 FL (6.5-10.1) 6.9 FL (6.5-10.1) Neutrophils (%) (Auto) 56.9 % (45.0-75.0) 49.3 % (45.0-75.0) Lymphocytes (%) (Auto) 30.2 % (20.0-45.0) 35.7 % (20.0-45.0) Monocytes (%) (Auto) 10.0 % (1.0-10.0) 10.4 % (1.0-10.0) Eosinophils (%) (Auto) 2.1 % (0.0-3.0) 3.7 % (0.0-3.0) Basophils (%) (Auto) 0.8 % (0.0-2.0) 1.0 % (0.0-2.0) Erythrocyte Sedimentation Rate 12 MM/HR (0-15) Reticulocyte Count 14.8 % (0.5-2.0) Sodium Level 139 MMOL/L (136-145) 139 MMOL/L (136-145) Potassium Level 3.4 MMOL/L (3.5-5.1) 3.8 MMOL/L (3.5-5.1) Chloride Level 102 MMOL/L (98-107) 103 MMOL/L (98-107) Carbon Dioxide Level 29 MMOL/L (21-32) 30 MMOL/L (21-32) Anion Gap 8 mmol/L (5-15) 6 mmol/L (5-15) Blood Urea Nitrogen 5 mg/dL (7-18) 4 mg/dL (7-18) Creatinine 0.8 MG/DL (0.55-1.30) 0.6 MG/DL (0.55-1.30) Estimat Glomerular Filtration Rate > 60 mL/min (>60) > 60 mL/min (>60) Glucose Level 92 MG/DL (74-106) 127 MG/DL (74-106) Calcium Level 8.7 MG/DL (8.5-10.1) 8.5 MG/DL (8.5-10.1) Phosphorus Level 3.3 MG/DL (2.5-4.9) Magnesium Level 1.8 MG/DL (1.8-2.4) Total Bilirubin 1.7 MG/DL (0.2-1.0) Direct Bilirubin 0.4 MG/DL (0.0-0.3) Aspartate Amino Transf (AST/SGOT) 61 U/L (15-37) Alanine Aminotransferase (ALT/SGPT) 105 U/L (12-78) Alkaline Phosphatase 100 U/L (46-116) Lactate Dehydrogenase 337 U/L (81-234) Total Protein 7.5 G/DL (6.4-8.2) Albumin 3.5 G/DL (3.4-5.0) Globulin 4.0 g/dL Albumin/Globulin Ratio 0.9 (1.0-2.7) Height (Feet): 5 Height (Inches): 6.00 Weight (Pounds): 249 Objective PHYSICAL EXAMINATION: VITAL SIGNS: have been reviewed HEENT: PERRLA. NECK: Supple. No lymphadenopathy. CHEST: Clear to auscultation CARDIOVASCULAR: Regular rate and rhythm. No murmurs or extra sounds. ABDOMEN: Soft, nontender, nondistended. No organomegaly. EXTREMITIES: No edema. Moves all four extremities. NEUROLOGIC: Sensory intact to touch. Reflexes are equal on both sides. Moves all four extremities. Lewis Olmedo MD Jan 07, 2019 14:40
[2019-01-07 16:00] VITALS: BP 127/78
--- NOTE | 2019-01-07 18:07 | Infectious Diseases Prog Note ---
Assessment/Plan Problems: (1) Leukocytosis Assessment & Plan: no evidence of sepsis suspect sickle cell crises related , will monitor clinically for now off antibiotics , continue aggressive hydrations (2) Fever Assessment & Plan: no evidence of infection so far suspect sickle cell crises related , monitor off antibiotics , continue tylenol as needed (3) Port-A-Cath in place Assessment & Plan: continue local care as needed (4) Sickle cell disease Assessment & Plan: with crises , continue hydration with pain management as per primary , monitor H/H , hematology is following Subjective Constitutional: Reports: fatigue HEENT: Reports: no symptoms Respiratory: Reports: no symptoms Breasts: Reports: no symptoms Cardiovascular: Reports: no symptoms Gastrointestinal/Abdominal: Reports: no symptoms Genitourinary: Reports: no symptoms Neurologic: Reports: no symptoms Psychiatric: Reports: no symptoms Skin: Reports: no symptoms Endocrine: Reports: no symptoms Hematologic: Reports: no symptoms Musculoskeletal: Reports: pain Allergies: Coded Allergies: CAPSAICIN (Verified Allergy, Unknown, 11/23/18) CEFTRIAXONE (Verified Allergy, Unknown, 11/23/18) IOPAMIDOL (Unverified Allergy, Unknown, 01/01/19) Uncoded Allergies: IV CONTRAST (Allergy, Unknown, 01/01/19) CONTRAST (Adverse Reaction, Severe, Rash, 06/23/16) RADIOCONTRAST - RASH, ITCHING Objective Vital Signs Last 24 Hour Vital Signs Date Time Temp Pulse Resp B/P (MAP) Pulse Ox O2 Delivery O2 Flow Rate FiO2 01/07/19 12:00 99.3 78 18 131/69 (89) 100 01/07/19 09:00 Room Air 01/07/19 08:00 98.9 64 18 129/71 (90) 97 01/07/19 04:00 97.9 65 24 132/66 (88) 97 01/07/19 00:00 97.9 67 20 118/64 (82) 95 01/06/19 23:21 99.9 01/06/19 23:21 99.9 01/06/19 23:08 99.9 01/06/19 21:00 Room Air 01/06/19 20:00 100.9 88 16 111/88 (96) 97 Height (Feet): 5 Height (Inches): 6.00 Weight (Pounds): 249 General Appearance: WD/WN, no acute distress HEENT: normocephalic, atraumatic, anicteric, mucous membranes moist, PERRL Respiratory/Chest: chest wall non-tender, lungs clear, normal breath sounds, no respiratory distress, no accessory muscle use Cardiovascular: normal peripheral pulses, normal rate, regular rhythm, no gallop/murmur, no JVD Abdomen: normal bowel sounds, soft, non tender, no organomegaly, non distended , no mass, no scars Genitourinary: normal external genitalia Extremities: no cyanosis, no clubbing Skin: no rash, no lesions, no ulcers Neurologic/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: 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, no motor/sensory deficits, alert, oriented x 3, responsive Lymphatic: no neck adenopathy, no groin adenopathy Musculoskeletal: normal muscle bulk, no effusion Laboratory Tests Test 01/07/19 04:50 White Blood Count 11.3 K/UL (4.8-10.8) H Red Blood Count 3.02 M/UL (4.70-6.10) L Hemoglobin 8.0 G/DL (14.2-18.0) L Hematocrit 25.3 % (42.0-52.0) L Mean Corpuscular Volume 84 FL (80-99) Mean Corpuscular Hemoglobin 26.4 PG (27.0-31.0) L Mean Corpuscular Hemoglobin Concent 31.5 G/DL (32.0-36.0) L Red Cell Distribution Width 19.9 % (11.6-14.8) H Platelet Count 310 K/UL (150-450) Mean Platelet Volume 6.9 FL (6.5-10.1) Neutrophils (%) (Auto) 49.3 % (45.0-75.0) Lymphocytes (%) (Auto) 35.7 % (20.0-45.0) Monocytes (%) (Auto) 10.4 % (1.0-10.0) H Eosinophils (%) (Auto) 3.7 % (0.0-3.0) H Basophils (%) (Auto) 1.0 % (0.0-2.0) Sodium Level 139 MMOL/L (136-145) Potassium Level 3.8 MMOL/L (3.5-5.1) Chloride Level 103 MMOL/L (98-107) Carbon Dioxide Level 30 MMOL/L (21-32) Anion Gap 6 mmol/L (5-15) Blood Urea Nitrogen 4 mg/dL (7-18) L Creatinine 0.6 MG/DL (0.55-1.30) Estimat Glomerular Filtration Rate > 60 mL/min (>60) Glucose Level 127 MG/DL (74-106) H Calcium Level 8.5 MG/DL (8.5-10.1) Current Medications Medications (Trade) Dose Ordered Sig/Arianne Route PRN Reason Start Time Stop Time Status Last Admin Dose Admin Acetaminophen (Tylenol) 650 mg Q4H PRN ORAL fever 01/01/19 19:40 01/31/19 19:39 01/06/19 20:33 Chlorhexidine Gluconate (Jihan-Hex 2%) 1 applic DAILY@1999 TOPIC 01/02/19 20:00 02/01/19 19:59 01/05/19 20:00 Dextrose (Dextrose 50%) 25 ml Q30M PRN IV Hypoglycemia 01/01/19 19:45 01/31/19 19:44 Dextrose (Dextrose 50%) 50 ml Q30M PRN IV Hypoglycemia 01/01/19 19:45 01/31/19 19:44 Diphenhydramine HCl (Benadryl) 50 mg Q6H PRN IVP Itching 01/02/19 11:45 02/01/19 11:44 01/07/19 15:58 Heparin Sodium (Porcine) (Heparin 5000 units/ml) 5,000 units EVERY 12 HOURS SUBQ 01/01/19 21:00 01/31/19 20:59 01/06/19 20:29 Hydromorphone HCl (Dilaudid) 2 mg Q3H PRN IV pain 4-6 01/01/19 19:45 01/08/19 19:44 01/07/19 16:02 Hydromorphone HCl (Dilaudid) 3 mg Q3H PRN IVP For Pain 7-10 01/01/19 19:41 01/08/19 19:40 01/07/19 05:02 Hydroxyurea (Hydrea) 1,500 mg DAILY ORAL 01/03/19 15:00 01/08/19 14:59 01/07/19 09:03 Lorazepam (Ativan 2mg/ml 1ml) 0.5 mg Q4H PRN IV For Anxiety 01/01/19 19:45 01/08/19 19:44 Ondansetron HCl (Zofran) 4 mg Q6H PRN IVP Nausea & Vomiting 01/02/19 11:45 02/01/19 11:44 01/05/19 22:21 Oxycodone HCl (OxyCONTIN) 30 mg EVERY 8 HOURS ORAL 01/02/19 14:00 01/09/19 13:59 01/07/19 14:00 Polyethylene Glycol (Miralax) 17 gm HSPRN PRN ORAL Constipation 01/01/19 21:00 01/31/19 20:59 Sodium Chloride 1,000 ml @ 160 mls/hr Q6H15M IV 01/05/19 08:30 02/04/19 08:29 01/07/19 12:32 Zolpidem Tartrate (Ambien) 5 mg HSPRN PRN ORAL Insomnia 01/01/19 21:00 01/08/19 20:59 Emeka Solorzano M.D. Jan 07, 2019 18:07
[2019-01-07 20:00] VITALS: BP 134/69
[2019-01-07] MEDS: Dyna-Hex 2% Top Sol 2oz TOPIC SCH (20:43)
[2019-01-08] VITALS: BP 120/67
[2019-01-08 04:00] VITALS: BP 123/67
[2019-01-08] MEDS: DiphenhydrAMINE 50mg/ml Inj IVP PRN ×3 (04:39→18:22)
[2019-01-08] MEDS: oxyCONTIN 10mg tab ORAL SCH ×3 (06:08→16:33)
[2019-01-08 07:17] LABS: HEMATOCRIT 27.6 % (42.0-52.0); HEMOGLOBIN 8.9 G/DL (14.2-18.0); MEAN CORPUSCULAR VOLUME 83 FL (80-99); PLATELET COUNT 279 K/UL (150-450); RED BLOOD COUNT 3.32 M/UL (4.70-6.10); RED CELL DISTRIBUTION WIDTH 18.1 % (11.6-14.8); WHITE BLOOD COUNT 16.6 K/UL (4.8-10.8)
[2019-01-08 07:40] LABS: ANION GAP 6 mmol/L (5-15); BLOOD UREA NITROGEN 6 mg/dL (7-18); CALCIUM 8.8 MG/DL (8.5-10.1); CARBON DIOXIDE 31 MMOL/L (21-32); CHLORIDE 103 MMOL/L (98-107); CREATININE 0.7 MG/DL (0.55-1.30); POTASSIUM 3.6 MMOL/L (3.5-5.1); SODIUM 140 MMOL/L (136-145)
[2019-01-08] MEDS: Hydroxyurea 500mg cap ORAL SCH (07:54)
--- NOTE | 2019-01-08 08:50 | General Progress Note ---
Assessment/Plan Assessment/Plan: (1) Sickle cell disease (2) Sickle cell crisis (3) Intractable pain Patient will be continued on Oxycontin and Dilaudid. D/w Dr. Tucker and he concurred. Subjective Date patient seen: Jan 08, 2019 Time patient seen: 08:00 - am Constitutional: Reports: chills, weakness HEENT: Reports: no symptoms Cardiovascular: Reports: no symptoms Respiratory: Reports: no symptoms Gastrointestinal/Abdominal: Reports: no symptoms Genitourinary: Reports: no symptoms Neurologic/Psychiatric: Reports: weakness Endocrine: Reports: no symptoms Hematologic/Lymphatic: Reports: no symptoms Allergies: Coded Allergies: CAPSAICIN (Verified Allergy, Unknown, 11/23/18) CEFTRIAXONE (Verified Allergy, Unknown, 11/23/18) IOPAMIDOL (Unverified Allergy, Unknown, 01/01/19) Uncoded Allergies: IV CONTRAST (Allergy, Unknown, 01/01/19) CONTRAST (Adverse Reaction, Severe, Rash, 06/23/16) RADIOCONTRAST - RASH, ITCHING Subjective Patient is a known patient admitted due to sickle cell disease and crisis. Started on OxyContin 30mg Q8H ATC and Dilaudid 2-3mg IV Q3H PRN. Tolerating the pain on the medications. Objective Last 24 Hour Vital Signs Date Time Temp Pulse Resp B/P (MAP) Pulse Ox O2 Delivery O2 Flow Rate FiO2 01/08/19 07:22 Room Air 01/08/19 04:00 97.7 90 17 123/67 (85) 96 01/08/19 00:00 98.4 76 18 120/67 (84) 98 01/07/19 21:00 Room Air 01/07/19 20:00 98.8 92 18 134/69 (90) 98 01/07/19 16:00 97.5 68 16 127/78 (94) 100 01/07/19 12:00 99.3 78 18 131/69 (89) 100 01/07/19 09:00 Room Air Intake and Output 01/07/19 01/08/19 19:00 07:00 Intake Total 1760 ml 1950 ml Output Total 900 ml Balance 860 ml 1950 ml Intake Oral 480 ml IV Total 1760 ml 1120 ml Blood Product 350 ml Output Urine Total 900 ml # Voids 2 Laboratory Tests 01/08/19 05:45: White Blood Count 16.6H, Red Blood Count 3.32L, Hemoglobin 8.9L, Hematocrit 27.6L, Mean Corpuscular Volume 83, Mean Corpuscular Hemoglobin 26.9L, Mean Corpuscular Hemoglobin Concent 32.4, Red Cell Distribution Width 18.1H, Platelet Count 279, Mean Platelet Volume 6.4L, Neutrophils (%) (Auto) , Lymphocytes (%) (Auto) , Monocytes (%) (Auto) , Eosinophils (%) (Auto) , Basophils (%) (Auto) , Differential Total Cells Counted 100, Neutrophils % ( Manual) 34L, Lymphocytes % (Manual) 57H, Monocytes % (Manual) 5, Eosinophils % ( Manual) 2, Basophils % (Manual) 2, Band Neutrophils 0, Nucleated Red Blood Cells 50, Platelet Estimate Adequate, Platelet Morphology Normal, Polychromasia 2+, Hypochromasia 2+, Anisocytosis 2+, Sodium Level 140, Potassium Level 3.6, Chloride Level 103, Carbon Dioxide Level 31, Anion Gap 6, Blood Urea Nitrogen 6L , Creatinine 0.7, Estimat Glomerular Filtration Rate > 60, Glucose Level 125H, Calcium Level 8.8 Height (Feet): 5 Height (Inches): 6.00 Weight (Pounds): 249 General Appearance: no apparent distress, alert EENT: PERRL/EOMI, normal ENT inspection Neck: non-tender, normal alignment Cardiovascular: normal rate, regular rhythm Respiratory/Chest: decreased breath sounds Abdomen: non tender, soft Extremities: non-tender Edema: trace edema Neurologic: alert, oriented x 3 Skin: normal pigmentation Orlando Oglesby Jan 08, 2019 08:50
[2019-01-08] MEDS: Heparin 5000 units/ml inj SUBQ SCH ×2 (09:00→19:39)
[2019-01-08 11:57] VITALS: BP 116/66
--- NOTE | 2019-01-08 12:32 | Pulmonology Progress Note ---
Assessment/Plan Problems: (1) Sickle cell crisis (2) Port-A-Cath in place Assessment/Plan doing better barrett cultures, all negatives f/u reti count and LDH iv fluid at 150 cc/hour check electrolytes Subjective ROS Limited/Unobtainable: Yes Interval Events: feeling better Allergies: Coded Allergies: CAPSAICIN (Verified Allergy, Unknown, 11/23/18) CEFTRIAXONE (Verified Allergy, Unknown, 11/23/18) IOPAMIDOL (Unverified Allergy, Unknown, 01/01/19) Uncoded Allergies: IV CONTRAST (Allergy, Unknown, 01/01/19) CONTRAST (Adverse Reaction, Severe, Rash, 06/23/16) RADIOCONTRAST - RASH, ITCHING Objective Last 24 Hour Vital Signs Date Time Temp Pulse Resp B/P (MAP) Pulse Ox O2 Delivery O2 Flow Rate FiO2 01/08/19 11:57 97.8 56 18 116/66 (83) 96 01/08/19 07:22 Room Air 01/08/19 04:00 97.7 90 17 123/67 (85) 96 01/08/19 00:00 98.4 76 18 120/67 (84) 98 01/07/19 21:00 Room Air 01/07/19 20:00 98.8 92 18 134/69 (90) 98 01/07/19 16:00 97.5 68 16 127/78 (94) 100 Intake and Output 01/07/19 01/08/19 18:59 06:59 Intake Total 1920 ml 1950 ml Output Total 900 ml Balance 1020 ml 1950 ml Intake Oral 480 ml IV Total 1920 ml 1120 ml Blood Product 350 ml Output Urine Total 900 ml # Voids 2 General Appearance: WD/WN HEENT: normocephalic, atraumatic Respiratory/Chest: chest wall non-tender, lungs clear Cardiovascular: normal peripheral pulses, normal rate Abdomen: normal bowel sounds, soft, non tender Genitourinary: normal external genitalia Extremities: no cyanosis Skin: no rash, no lesions Laboratory Tests 01/08/19 05:45: White Blood Count 16.6H, Red Blood Count 3.32L, Hemoglobin 8.9L, Hematocrit 27.6L, Mean Corpuscular Volume 83, Mean Corpuscular Hemoglobin 26.9L, Mean Corpuscular Hemoglobin Concent 32.4, Red Cell Distribution Width 18.1H, Platelet Count 279, Mean Platelet Volume 6.4L, Neutrophils (%) (Auto) , Lymphocytes (%) (Auto) , Monocytes (%) (Auto) , Eosinophils (%) (Auto) , Basophils (%) (Auto) , Differential Total Cells Counted 100, Neutrophils % ( Manual) 34L, Lymphocytes % (Manual) 57H, Monocytes % (Manual) 5, Eosinophils % ( Manual) 2, Basophils % (Manual) 2, Band Neutrophils 0, Nucleated Red Blood Cells 50, Platelet Estimate Adequate, Platelet Morphology Normal, Polychromasia 2+, Hypochromasia 2+, Anisocytosis 2+, Sodium Level 140, Potassium Level 3.6, Chloride Level 103, Carbon Dioxide Level 31, Anion Gap 6, Blood Urea Nitrogen 6L , Creatinine 0.7, Estimat Glomerular Filtration Rate > 60, Glucose Level 125H, Calcium Level 8.8 Current Medications Medications (Trade) Dose Ordered Sig/Arianne Route PRN Reason Start Time Stop Time Status Last Admin Dose Admin Acetaminophen (Tylenol) 650 mg Q4H PRN ORAL fever 01/01/19 19:40 01/31/19 19:39 01/06/19 20:33 Chlorhexidine Gluconate (Jihan-Hex 2%) 1 applic DAILY@2000 TOPIC 01/02/19 20:00 02/01/19 19:59 01/07/19 20:43 Dextrose (Dextrose 50%) 25 ml Q30M PRN IV Hypoglycemia 01/01/19 19:45 01/31/19 19:44 Dextrose (Dextrose 50%) 50 ml Q30M PRN IV Hypoglycemia 01/01/19 19:45 01/31/19 19:44 Diphenhydramine HCl (Benadryl) 50 mg Q6H PRN IVP Itching 01/02/19 11:45 02/01/19 11:44 01/08/19 11:36 Heparin Sodium (Porcine) (Heparin 5000 units/ml) 5,000 units EVERY 12 HOURS SUBQ 01/01/19 21:00 01/31/19 20:59 01/06/19 20:29 Hydromorphone HCl (Dilaudid) 2 mg Q3H PRN IV pain 4-6 01/01/19 19:45 01/08/19 19:44 01/08/19 11:37 Hydromorphone HCl (Dilaudid) 3 mg Q3H PRN IVP For Pain 7-10 01/01/19 19:41 01/08/19 19:40 01/08/19 07:59 Hydroxyurea (Hydrea) 1,500 mg DAILY ORAL 01/03/19 15:00 01/08/19 14:59 01/08/19 07:54 Lorazepam (Ativan 2mg/ml 1ml) 0.5 mg Q4H PRN IV For Anxiety 01/01/19 19:45 01/08/19 19:44 Ondansetron HCl (Zofran) 4 mg Q6H PRN IVP Nausea & Vomiting 01/02/19 11:45 02/01/19 11:44 01/05/19 22:21 Oxycodone HCl (OxyCONTIN) 30 mg EVERY 8 HOURS ORAL 01/02/19 14:00 01/09/19 13:59 01/08/19 06:08 Polyethylene Glycol (Miralax) 17 gm HSPRN PRN ORAL Constipation 01/01/19 21:00 01/31/19 20:59 Sodium Chloride 1,000 ml @ 160 mls/hr Q6H15M IV 01/05/19 08:30 02/04/19 08:29 01/08/19 06:23 Zolpidem Tartrate (Ambien) 5 mg HSPRN PRN ORAL Insomnia 01/01/19 21:00 01/08/19 20:59 Ranjith Caicedo MD Jan 08, 2019 12:32
--- NOTE | 2019-01-08 17:58 | Infectious Diseases Prog Note ---
Assessment/Plan Problems: (1) Leukocytosis Assessment & Plan: no evidence of sepsis suspect sickle cell crises related , will monitor clinically for now off antibiotics , continue aggressive hydrations (2) Fever Assessment & Plan: no evidence of infection so far suspect sickle cell crises related , monitor off antibiotics , continue tylenol as needed (3) Port-A-Cath in place Assessment & Plan: continue local care as needed (4) Sickle cell disease Assessment & Plan: with crises , continue hydration with pain management as per primary , monitor H/H , hematology is following Subjective Constitutional: Reports: no symptoms HEENT: Reports: no symptoms Respiratory: Reports: no symptoms Breasts: Reports: no symptoms Cardiovascular: Reports: no symptoms Gastrointestinal/Abdominal: Reports: no symptoms Genitourinary: Reports: no symptoms Neurologic: Reports: no symptoms Psychiatric: Reports: no symptoms Skin: Reports: no symptoms Endocrine: Reports: no symptoms Hematologic: Reports: no symptoms Musculoskeletal: Reports: no symptoms Allergies: Coded Allergies: CAPSAICIN (Verified Allergy, Unknown, 11/23/18) CEFTRIAXONE (Verified Allergy, Unknown, 11/23/18) IOPAMIDOL (Unverified Allergy, Unknown, 01/01/19) Uncoded Allergies: IV CONTRAST (Allergy, Unknown, 01/01/19) CONTRAST (Adverse Reaction, Severe, Rash, 06/23/16) RADIOCONTRAST - RASH, ITCHING Objective Vital Signs Last 24 Hour Vital Signs Date Time Temp Pulse Resp B/P (MAP) Pulse Ox O2 Delivery O2 Flow Rate FiO2 01/08/19 11:57 97.8 56 18 116/66 (83) 96 01/08/19 07:22 Room Air 01/08/19 04:00 97.7 90 17 123/67 (85) 96 01/08/19 00:00 98.4 76 18 120/67 (84) 98 01/07/19 21:00 Room Air 01/07/19 20:00 98.8 92 18 134/69 (90) 98 Height (Feet): 5 Height (Inches): 6.00 Weight (Pounds): 249 General Appearance: WD/WN, no acute distress HEENT: normocephalic, atraumatic, anicteric, mucous membranes moist, PERRL Respiratory/Chest: chest wall non-tender, lungs clear, normal breath sounds, no respiratory distress, no accessory muscle use Cardiovascular: normal peripheral pulses, normal rate, regular rhythm, no gallop/murmur, no JVD Abdomen: normal bowel sounds, soft, non tender, no organomegaly, non distended , no mass, no scars Extremities: no cyanosis, no clubbing Skin: no rash, no lesions, no ulcers Neurologic/Psychiatric: alert, oriented x 3, responsive Lymphatic: no neck adenopathy, no groin adenopathy Musculoskeletal: normal muscle bulk, no effusion Laboratory Tests Test 01/08/19 05:45 White Blood Count 16.6 K/UL (4.8-10.8) H Red Blood Count 3.32 M/UL (4.70-6.10) L Hemoglobin 8.9 G/DL (14.2-18.0) L Hematocrit 27.6 % (42.0-52.0) L Mean Corpuscular Volume 83 FL (80-99) Mean Corpuscular Hemoglobin 26.9 PG (27.0-31.0) L Mean Corpuscular Hemoglobin Concent 32.4 G/DL (32.0-36.0) Red Cell Distribution Width 18.1 % (11.6-14.8) H Platelet Count 279 K/UL (150-450) Mean Platelet Volume 6.4 FL (6.5-10.1) L Neutrophils (%) (Auto) % (45.0-75.0) Lymphocytes (%) (Auto) % (20.0-45.0) Monocytes (%) (Auto) % (1.0-10.0) Eosinophils (%) (Auto) % (0.0-3.0) Basophils (%) (Auto) % (0.0-2.0) Differential Total Cells Counted 100 Neutrophils % (Manual) 34 % (45-75) L Lymphocytes % (Manual) 57 % (20-45) H Monocytes % (Manual) 5 % (1-10) Eosinophils % (Manual) 2 % (0-3) Basophils % (Manual) 2 % (0-2) Band Neutrophils 0 % (0-8) Nucleated Red Blood Cells 50 /100 WBC Platelet Estimate Adequate Platelet Morphology Normal Polychromasia 2+ Hypochromasia 2+ Anisocytosis 2+ Sodium Level 140 MMOL/L (136-145) Potassium Level 3.6 MMOL/L (3.5-5.1) Chloride Level 103 MMOL/L (98-107) Carbon Dioxide Level 31 MMOL/L (21-32) Anion Gap 6 mmol/L (5-15) Blood Urea Nitrogen 6 mg/dL (7-18) L Creatinine 0.7 MG/DL (0.55-1.30) Estimat Glomerular Filtration Rate > 60 mL/min (>60) Glucose Level 125 MG/DL (74-106) H Calcium Level 8.8 MG/DL (8.5-10.1) Current Medications Medications (Trade) Dose Ordered Sig/Arianne Route PRN Reason Start Time Stop Time Status Last Admin Dose Admin Acetaminophen (Tylenol) 650 mg Q4H PRN ORAL fever 01/01/19 19:40 01/31/19 19:39 01/06/19 20:33 Chlorhexidine Gluconate (Jihan-Hex 2%) 1 applic DAILY@1999 TOPIC 01/02/19 20:00 02/01/19 19:59 01/07/19 20:43 Dextrose (Dextrose 50%) 25 ml Q30M PRN IV Hypoglycemia 01/01/19 19:45 01/31/19 19:44 Dextrose (Dextrose 50%) 50 ml Q30M PRN IV Hypoglycemia 01/01/19 19:45 01/31/19 19:44 Diphenhydramine HCl (Benadryl) 50 mg Q6H PRN IVP Itching 01/02/19 11:45 02/01/19 11:44 01/08/19 11:36 Heparin Sodium (Porcine) (Heparin 5000 units/ml) 5,000 units EVERY 12 HOURS SUBQ 01/01/19 21:00 01/31/19 20:59 01/06/19 20:29 Hydromorphone HCl (Dilaudid) 2 mg Q3H PRN IV pain 4-6 01/01/19 19:45 01/08/19 19:44 01/08/19 11:37 Hydromorphone HCl (Dilaudid) 3 mg Q3H PRN IVP For Pain 7-10 01/01/19 19:41 01/08/19 19:40 01/08/19 15:13 Lorazepam (Ativan 2mg/ml 1ml) 0.5 mg Q4H PRN IV For Anxiety 01/01/19 19:45 01/08/19 19:44 Ondansetron HCl (Zofran) 4 mg Q6H PRN IVP Nausea & Vomiting 01/02/19 11:45 02/01/19 11:44 01/05/19 22:21 Oxycodone HCl (OxyCONTIN) 30 mg EVERY 8 HOURS ORAL 01/02/19 14:00 01/09/19 13:59 01/08/19 16:33 Polyethylene Glycol (Miralax) 17 gm HSPRN PRN ORAL Constipation 01/01/19 21:00 01/31/19 20:59 Sodium Chloride 1,000 ml @ 160 mls/hr Q6H15M IV 01/05/19 08:30 02/04/19 08:29 01/08/19 13:35 Zolpidem Tartrate (Ambien) 5 mg HSPRN PRN ORAL Insomnia 01/01/19 21:00 01/08/19 20:59 Emeka Solorzano M.D. Jan 08, 2019 17:58
--- NOTE | 2019-01-08 18:31 | Hematology/Onc Progress Note ---
Assessment/Plan Assessment/Plan ASSESSMENT AND PLAN: 1. 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 --> Presented in sickle crisis. on hydrea, opioids --> retic daily on a prn basis, proper response shown --> cbc has been reviewed --> continue hydrea 1500mg po daily --> continue indiral powder adjunct medication --> appreciate pain management recs --> stable for dc --> return precautions given --> [place] iron chelating agent with Dr. Kerline Davenport as outpatient 2. Anemia, secondary to sickle cell disease/B thalassemia --> trend hgb 10-->8.8-->9.2-->8.0-->8.9 --> retic and ldh daily --> Hgb goal >7. 3. Thrombocytosis, potentially secondary to reactive process --> Currently WDL --> Plt trend: 616k -->512k--406k-->310k-->279k 4. Hyperproteinemia --> spep reviewed last admission 5. Leukocytosis could be related to infection --> WBC currently at 16.6 --> monitor for fever, if recurrent, obtain w/i --> Blood cx negative The timing of this note does not necessarily reflect the time of the patient was seen. Greatly appreciate consultation! Subjective Allergies: Coded Allergies: CAPSAICIN (Verified Allergy, Unknown, 11/23/18) CEFTRIAXONE (Verified Allergy, Unknown, 11/23/18) IOPAMIDOL (Unverified Allergy, Unknown, 01/01/19) Uncoded Allergies: IV CONTRAST (Allergy, Unknown, 01/01/19) CONTRAST (Adverse Reaction, Severe, Rash, 06/23/16) RADIOCONTRAST - RASH, ITCHING Subjective 01/04: no events noted, labs reviewed, no changes 01/05: Patient is awake alert, no acute distress noted but patient is reporting generalized body pain. 01/07: Pt seen and examined, alert and oriented x4, no sign of distress 01/08: Pt in bed resting, in stable condition Objective Objective Current Medications Medications (Trade) Dose Ordered Sig/Arianne Route PRN Reason Start Time Stop Time Status Last Admin Dose Admin Acetaminophen (Tylenol) 650 mg Q4H PRN ORAL fever 01/01/19 19:40 01/31/19 19:39 01/06/19 20:33 Chlorhexidine Gluconate (Jihan-Hex 2%) 1 applic DAILY@2000 TOPIC 01/02/19 20:00 02/01/19 19:59 01/07/19 20:43 Dextrose (Dextrose 50%) 25 ml Q30M PRN IV Hypoglycemia 01/01/19 19:45 01/31/19 19:44 Dextrose (Dextrose 50%) 50 ml Q30M PRN IV Hypoglycemia 01/01/19 19:45 01/31/19 19:44 Diphenhydramine HCl (Benadryl) 50 mg Q6H PRN IVP Itching 01/02/19 11:45 02/01/19 11:44 01/08/19 18:22 Heparin Sodium (Porcine) (Heparin 5000 units/ml) 5,000 units EVERY 12 HOURS SUBQ 01/01/19 21:00 01/31/19 20:59 01/06/19 20:29 Hydromorphone HCl (Dilaudid) 2 mg Q3H PRN IV pain 4-6 01/01/19 19:45 01/08/19 19:44 01/08/19 18:23 Hydromorphone HCl (Dilaudid) 3 mg Q3H PRN IVP For Pain 7-10 01/01/19 19:41 01/08/19 19:40 01/08/19 15:13 Lorazepam (Ativan 2mg/ml 1ml) 0.5 mg Q4H PRN IV For Anxiety 01/01/19 19:45 01/08/19 19:44 Ondansetron HCl (Zofran) 4 mg Q6H PRN IVP Nausea & Vomiting 01/02/19 11:45 02/01/19 11:44 01/05/19 22:21 Oxycodone HCl (OxyCONTIN) 30 mg EVERY 8 HOURS ORAL 01/02/19 14:00 01/09/19 13:59 01/08/19 16:33 Polyethylene Glycol (Miralax) 17 gm HSPRN PRN ORAL Constipation 01/01/19 21:00 01/31/19 20:59 Sodium Chloride 1,000 ml @ 160 mls/hr Q6H15M IV 01/05/19 08:30 02/04/19 08:29 01/08/19 13:35 Zolpidem Tartrate (Ambien) 5 mg HSPRN PRN ORAL Insomnia 01/01/19 21:00 01/08/19 20:59 Last 24 Hour Vital Signs Date Time Temp Pulse Resp B/P (MAP) Pulse Ox O2 Delivery O2 Flow Rate FiO2 01/08/19 11:57 97.8 56 18 116/66 (83) 96 01/08/19 07:22 Room Air 01/08/19 04:00 97.7 90 17 123/67 (85) 96 01/08/19 00:00 98.4 76 18 120/67 (84) 98 01/07/19 21:00 Room Air 01/07/19 20:00 98.8 92 18 134/69 (90) 98 01/07/19 16:00 97.5 68 16 127/78 (94) 100 01/07/19 12:00 99.3 78 18 131/69 (89) 100 01/07/19 09:00 Room Air 01/07/19 08:00 98.9 64 18 129/71 (90) 97 01/07/19 04:00 97.9 65 24 132/66 (88) 97 01/07/19 00:00 97.9 67 20 118/64 (82) 95 01/06/19 23:21 99.9 01/06/19 23:21 99.9 01/06/19 23:08 99.9 01/06/19 21:00 Room Air 01/06/19 20:00 100.9 88 16 111/88 (96) 97 Intake and Output 01/07/19 01/08/19 19:00 07:00 Intake Total 1760 ml 1950 ml Output Total 900 ml Balance 860 ml 1950 ml Intake Oral 480 ml IV Total 1760 ml 1120 ml Blood Product 350 ml Output Urine Total 900 ml # Voids 2 Labs Test 01/06/19 04:15 01/07/19 04:50 01/08/19 05:45 White Blood Count 17.4 K/UL (4.8-10.8) 11.3 K/UL (4.8-10.8) 16.6 K/UL (4.8-10.8) Red Blood Count 3.30 M/UL (4.70-6.10) 3.02 M/UL (4.70-6.10) 3.32 M/UL (4.70-6.10) Hemoglobin 9.1 G/DL (14.2-18.0) 8.0 G/DL (14.2-18.0) 8.9 G/DL (14.2-18.0) Hematocrit 26.9 % (42.0-52.0) 25.3 % (42.0-52.0) 27.6 % (42.0-52.0) Mean Corpuscular Volume 81 FL (80-99) 84 FL (80-99) 83 FL (80-99) Mean Corpuscular Hemoglobin 27.4 PG (27.0-31.0) 26.4 PG (27.0-31.0) 26.9 PG (27.0-31.0) Mean Corpuscular Hemoglobin Concent 33.8 G/DL (32.0-36.0) 31.5 G/DL (32.0-36.0) 32.4 G/DL (32.0-36.0) Red Cell Distribution Width 20.8 % (11.6-14.8) 19.9 % (11.6-14.8) 18.1 % (11.6-14.8) Platelet Count 392 K/UL (150-450) 310 K/UL (150-450) 279 K/UL (150-450) Mean Platelet Volume 6.4 FL (6.5-10.1) 6.9 FL (6.5-10.1) 6.4 FL (6.5-10.1) Neutrophils (%) (Auto) 56.9 % (45.0-75.0) 49.3 % (45.0-75.0) % (45.0-75.0) Lymphocytes (%) (Auto) 30.2 % (20.0-45.0) 35.7 % (20.0-45.0) % (20.0-45.0) Monocytes (%) (Auto) 10.0 % (1.0-10.0) 10.4 % (1.0-10.0) % (1.0-10.0) Eosinophils (%) (Auto) 2.1 % (0.0-3.0) 3.7 % (0.0-3.0) % (0.0-3.0) Basophils (%) (Auto) 0.8 % (0.0-2.0) 1.0 % (0.0-2.0) % (0.0-2.0) Erythrocyte Sedimentation Rate 12 MM/HR (0-15) Reticulocyte Count 14.8 % (0.5-2.0) Sodium Level 139 MMOL/L (136-145) 139 MMOL/L (136-145) 140 MMOL/L (136-145) Potassium Level 3.4 MMOL/L (3.5-5.1) 3.8 MMOL/L (3.5-5.1) 3.6 MMOL/L (3.5-5.1) Chloride Level 102 MMOL/L (98-107) 103 MMOL/L (98-107) 103 MMOL/L (98-107) Carbon Dioxide Level 29 MMOL/L (21-32) 30 MMOL/L (21-32) 31 MMOL/L (21-32) Anion Gap 8 mmol/L (5-15) 6 mmol/L (5-15) 6 mmol/L (5-15) Blood Urea Nitrogen 5 mg/dL (7-18) 4 mg/dL (7-18) 6 mg/dL (7-18) Creatinine 0.8 MG/DL (0.55-1.30) 0.6 MG/DL (0.55-1.30) 0.7 MG/DL (0.55-1.30) Estimat Glomerular Filtration Rate > 60 mL/min (>60) > 60 mL/min (>60) > 60 mL/min (>60) Glucose Level 92 MG/DL (74-106) 127 MG/DL (74-106) 125 MG/DL (74-106) Calcium Level 8.7 MG/DL (8.5-10.1) 8.5 MG/DL (8.5-10.1) 8.8 MG/DL (8.5-10.1) Phosphorus Level 3.3 MG/DL (2.5-4.9) Magnesium Level 1.8 MG/DL (1.8-2.4) Total Bilirubin 1.7 MG/DL (0.2-1.0) Direct Bilirubin 0.4 MG/DL (0.0-0.3) Aspartate Amino Transf (AST/SGOT) 61 U/L (15-37) Alanine Aminotransferase (ALT/SGPT) 105 U/L (12-78) Alkaline Phosphatase 100 U/L (46-116) Lactate Dehydrogenase 337 U/L (81-234) Total Protein 7.5 G/DL (6.4-8.2) Albumin 3.5 G/DL (3.4-5.0) Globulin 4.0 g/dL Albumin/Globulin Ratio 0.9 (1.0-2.7) Differential Total Cells Counted 100 Neutrophils % (Manual) 34 % (45-75) Lymphocytes % (Manual) 57 % (20-45) Monocytes % (Manual) 5 % (1-10) Eosinophils % (Manual) 2 % (0-3) Basophils % (Manual) 2 % (0-2) Band Neutrophils 0 % (0-8) Nucleated Red Blood Cells 50 /100 WBC Platelet Estimate Adequate Platelet Morphology Normal Polychromasia 2+ Hypochromasia 2+ Anisocytosis 2+ Height (Feet): 5 Height (Inches): 6.00 Weight (Pounds): 249 Objective PHYSICAL EXAMINATION: VITAL SIGNS: have been reviewed HEENT: PERRLA. NECK: Supple. No lymphadenopathy. CHEST: Clear to auscultation CARDIOVASCULAR: Regular rate and rhythm. No murmurs or extra sounds. ABDOMEN: Soft, nontender, nondistended. No organomegaly. EXTREMITIES: No edema. Moves all four extremities. NEUROLOGIC: Sensory intact to touch. Reflexes are equal on both sides. Moves all four extremities. Lewis Olmedo MD Jan 08, 2019 18:31
--- NOTE | 2019-01-08 19:01 | Internal Med Progress Note ---
Subjective Date of Service: Jan 08, 2019 Physician Name Rubalcava,Edilson Attending Physician Jersey Bearden MD Current Medications Medications (Trade) Dose Ordered Sig/Arianne Route PRN Reason Start Time Stop Time Status Last Admin Dose Admin Acetaminophen (Tylenol) 650 mg Q4H PRN ORAL fever 01/01/19 19:40 01/31/19 19:39 01/06/19 20:33 Chlorhexidine Gluconate (Jihan-Hex 2%) 1 applic DAILY@2000 TOPIC 01/02/19 20:00 02/01/19 19:59 01/07/19 20:43 Dextrose (Dextrose 50%) 25 ml Q30M PRN IV Hypoglycemia 01/01/19 19:45 01/31/19 19:44 Dextrose (Dextrose 50%) 50 ml Q30M PRN IV Hypoglycemia 01/01/19 19:45 01/31/19 19:44 Diphenhydramine HCl (Benadryl) 50 mg Q6H PRN IVP Itching 01/02/19 11:45 02/01/19 11:44 01/08/19 18:22 Heparin Sodium (Porcine) (Heparin 5000 units/ml) 5,000 units EVERY 12 HOURS SUBQ 01/01/19 21:00 01/31/19 20:59 01/06/19 20:29 Hydromorphone HCl (Dilaudid) 2 mg Q3H PRN IV pain 4-6 01/01/19 19:45 01/08/19 19:44 01/08/19 18:23 Hydromorphone HCl (Dilaudid) 3 mg Q3H PRN IVP For Pain 7-10 01/01/19 19:41 01/08/19 19:40 01/08/19 15:13 Lorazepam (Ativan 2mg/ml 1ml) 0.5 mg Q4H PRN IV For Anxiety 01/01/19 19:45 01/08/19 19:44 Ondansetron HCl (Zofran) 4 mg Q6H PRN IVP Nausea & Vomiting 01/02/19 11:45 02/01/19 11:44 01/05/19 22:21 Oxycodone HCl (OxyCONTIN) 30 mg EVERY 8 HOURS ORAL 01/02/19 14:00 01/09/19 13:59 01/08/19 16:33 Polyethylene Glycol (Miralax) 17 gm HSPRN PRN ORAL Constipation 01/01/19 21:00 01/31/19 20:59 Sodium Chloride 1,000 ml @ 160 mls/hr Q6H15M IV 01/05/19 08:30 02/04/19 08:29 01/08/19 13:35 Zolpidem Tartrate (Ambien) 5 mg HSPRN PRN ORAL Insomnia 01/01/19 21:00 01/08/19 20:59 Allergies: Coded Allergies: CAPSAICIN (Verified Allergy, Unknown, 11/23/18) CEFTRIAXONE (Verified Allergy, Unknown, 11/23/18) IOPAMIDOL (Unverified Allergy, Unknown, 01/01/19) Uncoded Allergies: IV CONTRAST (Allergy, Unknown, 01/01/19) CONTRAST (Adverse Reaction, Severe, Rash, 06/23/16) RADIOCONTRAST - RASH, ITCHING ROS Limited/Unobtainable: No Constitutional: Reports: no symptoms HEENT: Reports: no symptoms Cardiovascular: Reports: no symptoms Respiratory: Reports: no symptoms Gastrointestinal/Abdominal: Reports: no symptoms Genitourinary: Reports: no symptoms Neurologic/Psychiatric: Reports: no symptoms Subjective 23 YO M admitted with sickle cell crisis and leukocytosis. Cover for Int Med- Dr Bearden Objective Last Vital Signs Date Time Temp Pulse Resp B/P (MAP) Pulse Ox O2 Delivery O2 Flow Rate FiO2 01/08/19 11:57 97.8 56 18 116/66 (83) 96 01/08/19 07:22 Room Air 01/06/19 09:00 2.0 Laboratory Tests Test 01/08/19 05:45 White Blood Count 16.6 K/UL (4.8-10.8) H Red Blood Count 3.32 M/UL (4.70-6.10) L Hemoglobin 8.9 G/DL (14.2-18.0) L Hematocrit 27.6 % (42.0-52.0) L Mean Corpuscular Volume 83 FL (80-99) Mean Corpuscular Hemoglobin 26.9 PG (27.0-31.0) L Mean Corpuscular Hemoglobin Concent 32.4 G/DL (32.0-36.0) Red Cell Distribution Width 18.1 % (11.6-14.8) H Platelet Count 279 K/UL (150-450) Mean Platelet Volume 6.4 FL (6.5-10.1) L Neutrophils (%) (Auto) % (45.0-75.0) Lymphocytes (%) (Auto) % (20.0-45.0) Monocytes (%) (Auto) % (1.0-10.0) Eosinophils (%) (Auto) % (0.0-3.0) Basophils (%) (Auto) % (0.0-2.0) Differential Total Cells Counted 100 Neutrophils % (Manual) 34 % (45-75) L Lymphocytes % (Manual) 57 % (20-45) H Monocytes % (Manual) 5 % (1-10) Eosinophils % (Manual) 2 % (0-3) Basophils % (Manual) 2 % (0-2) Band Neutrophils 0 % (0-8) Nucleated Red Blood Cells 50 /100 WBC Platelet Estimate Adequate Platelet Morphology Normal Polychromasia 2+ Hypochromasia 2+ Anisocytosis 2+ Sodium Level 140 MMOL/L (136-145) Potassium Level 3.6 MMOL/L (3.5-5.1) Chloride Level 103 MMOL/L (98-107) Carbon Dioxide Level 31 MMOL/L (21-32) Anion Gap 6 mmol/L (5-15) Blood Urea Nitrogen 6 mg/dL (7-18) L Creatinine 0.7 MG/DL (0.55-1.30) Estimat Glomerular Filtration Rate > 60 mL/min (>60) Glucose Level 125 MG/DL (74-106) H Calcium Level 8.8 MG/DL (8.5-10.1) Intake and Output 01/07/19 01/08/19 19:00 07:00 Intake Total 1760 ml 1950 ml Output Total 900 ml Balance 860 ml 1950 ml Intake Oral 480 ml IV Total 1760 ml 1120 ml Blood Product 350 ml Output Urine Total 900 ml # Voids 2 Objective PHYSICAL EXAMINATION: GENERAL: The patient is a well-developed and well-nourished male, in no apparent distress. HEENT: Eyes, pupils are equal and responsive to light and accommodation. Extraocular movements are intact. NECK: Supple without lymphadenopathy. CHEST: Lungs are clear to auscultation bilaterally without wheezes or rales. CARDIOVASCULAR: Regular rhythm and rate. S1 and S2 are normal without murmurs, rubs, or gallops. ABDOMEN: Soft, nontender, and nondistended. Positive bowel sounds. No evidence of hepatosplenomegaly. Currently, no rebound or guarding noted. EXTREMITIES: Negative for clubbing, cyanosis, or edema. RECTAL/GENITAL: Refused. NEUROLOGIC: Cranial nerves II through XII are grossly intact without focal deficits. Motor strength is 5/5 bilaterally. Deep tendon reflexes are 2+ plantar. Assessment/Plan Assessment/Plan ASSESSMENT: This is a 23-year-old white male. 1. Sickle cell crisis. 2. Sickle cell disease. 3. Asthma. 4. Avascular necrosis of the left hip. 5. Leukocytosis; R/O sepsis TREATMENT: 1. Sickle cell crisis/sickle cell disease. A Hematology/Oncology consultation was obtained with Dr. Kerline Davenport. The patient is currently receiving intravenous fluids and pain management intravenously. We will follow recommendations of Hematology/Oncology. 2. Asthma. Continue Advair as above. 3. Avascular necrosis of the hip. 4. Leukocytosis. Resolving. An Infectious Disease consultation has been obtained with Dr. Solorzano. Blood cultures are negative. D/C vancomycin and aztreonam per Edilson Dennis MD Jan 08, 2019 19:01
--- NOTE | 2019-01-08 19:15 | Consultation ---
DATE OF CONSULTATION: 01/08/2019 MEDICAL CONSULTATION: APPROXIMATE TIME: 1 p.m. CONSULTING PHYSICIAN: Bubba Wesley D.O. CHIEF COMPLAINT: Chronic pain, anemia, sickle cell disease, asthma. BRIEF HISTORY: This is a 23-year-old male, who lives at home presents with increased general pain. He was found to have anemia down to 8. Admitted to medical floor for sickle cell disease, chronic pain exacerbation, and anemia. Currently slightly weak, sitting in bed, slight general pain. No complaint. REVIEW OF SYSTEMS: No chest pain. Slight short of breath. No nausea, vomiting, or diarrhea. PAST MEDICAL HISTORY: Includes sickle cell, anemia, chronic pain, asthma. PAST SURGICAL HISTORY: Splenectomy. ALLERGIES: Ceftriaxone, capsaicin, contrast. SOCIAL HISTORY: No smoking. No alcohol. No intravenous drug abuse. FAMILY HISTORY: Noncontributory. PHYSICAL EXAMINATION: GENERAL: Calm in bed, oriented x3, slight distress secondary to pain. VITAL SIGNS: Temperature 97, pulse 56, respirations 18, blood pressure 116/66. CARDIOVASCULAR: No murmur. LUNGS: Poor air exchange. ABDOMEN: Positive bowel sounds. EXTREMITIES: No cyanosis, clubbing, or edema. NEUROLOGIC: The patient moves all extremities, slightly weak. LABORATORY AND DIAGNOSTIC DATA: White count 16, hemoglobin and hematocrit 8.9/27, platelets 379. BMP shows BUN 6, glucose 125. INR is 1.1. MEDICATIONS: Include Hydrea, OxyContin, Benadryl, Zofran, heparin, MiraLAX, Ambien, Ativan, hydromorphone. ASSESSMENT: 1. Anemia. 2. Sickle cell disease. 3. Chronic pain. 4. Asthma. PLAN: 1. Transfuse p.r.n. 2. Pain control. 3. Dietary followup. 4. O2 and pulmonary treatment as needed. 5. We will determine who is attending and sign off p.r.n. We will continue to follow this patient. Bubba Wesley D.O. DR: GALEN JOB#: [id number] CC:
[2019-01-08] MEDS: Dyna-Hex 2% Top Sol 2oz TOPIC SCH (19:36)
[2019-01-08 20:00] VITALS: BP 114/60
[2019-01-09] VITALS: BP 136/78
[2019-01-09] MEDS: DiphenhydrAMINE 50mg/ml Inj IVP PRN ×3 (00:30→13:45)
[2019-01-09] MEDS: oxyCONTIN 10mg tab ORAL SCH (01:17)
[2019-01-09 05:51] VITALS: BP 122/83
[2019-01-09 06:54] LABS: HEMATOCRIT 27.3 % (42.0-52.0); HEMOGLOBIN 8.7 G/DL (14.2-18.0); MEAN CORPUSCULAR VOLUME 83 FL (80-99); PLATELET COUNT 294 K/UL (150-450); RED CELL DISTRIBUTION WIDTH 17.7 % (11.6-14.8); WHITE BLOOD COUNT 16.3 K/UL (4.8-10.8)
[2019-01-09 07:22] LABS: ALANINE AMINOTRANSFERASE 91 U/L (12-78); ALBUMIN 3.2 G/DL (3.4-5.0); ALBUMIN/GLOBULIN RATIO 0.8 (1.0-2.7); ALKALINE PHOSPHATASE 98 U/L (46-116); ANION GAP 6 mmol/L (5-15); ASPARTATE AMINO TRANSFERASE 44 U/L (15-37); BILIRUBIN,TOTAL 1.3 MG/DL (0.2-1.0); BLOOD UREA NITROGEN 7 mg/dL (7-18); CALCIUM 8.7 MG/DL (8.5-10.1); CARBON DIOXIDE 29 MMOL/L (21-32); CHLORIDE 104 MMOL/L (98-107); CREATININE 0.6 MG/DL (0.55-1.30); LACTATE DEHYDROGENASE 277 U/L (81-234); PHOSPHORUS 3.7 MG/DL (2.5-4.9); POTASSIUM 3.8 MMOL/L (3.5-5.1); SODIUM 139 MMOL/L (136-145)
[2019-01-09 07:23] LABS: BILIRUBIN,DIRECT 0.5 MG/DL (0.0-0.3)
[2019-01-09 08:00] VITALS: BP 131/67
[2019-01-09] MEDS: Heparin 5000 units/ml inj SUBQ SCH (08:34)
[2019-01-09] MEDS ORDERED: oxyCONTIN 10mg tab ORAL SCH (10:00)
--- NOTE | 2019-01-09 10:39 | GI Initial Consult Note ---
History of Present Illness General Date patient seen: Jan 09, 2019 Time patient seen: 10:37 Reason for Hospitalization: Pain Referring physician: POOJA CASTILLO Reason for Consultation: ANEMIA Present Illness HPI 23-year-old male presents ED for evaluation. Brought in by EMS from home. Complaining of generalized pain. History of sickle cell disease. Pain is sharp , 10 out of 10, nonradiating. Denies fevers or chills. States he's been compliant with his medications. No other aggravating relieving factors. Denies any other associated symptoms GI consulted for anemia. Patient seen, awake alert and oriented x4 no apparent distress. Denies any nausea vomiting or diarrhea. Denies any abdominal pain at this time. The patient has complaint of mild constipation. Labs reviewed WBC 16, hemoglobin 8.5, AST 44, ALT 91, total bilirubin 1.3, alkaline phosphatase 277. The patient has no history of endoscopic or colonoscopy. Home Meds Reported Medications Fluticasone/Salmeterol (Advair 250-50 Diskus) 1 Each Blst.w.dev, 1 PUFF INH EVERY 12 HOURS, EA 01/02/19 Hydromorphone Hcl (HYDROMORPHONE HCL) 8 Mg Tablet, 8 MG ORAL EVERY 3 HOURS PRN for For Pain, #10 TAB 0 Refills 01/02/19 No Known Medications* (NKM - No Known Medications*) ., 0 ., 0 Refills 01/01/19 Linezolid* (ZYVOX*) 600 Mg Tablet, 600 MG ORAL EVERY 12 HOURS for 12 Days, TAB 12/21/18 Hydroxyurea (HYDROXYUREA) 500 Mg Capsule, 1500 MG PO DAILY, CAP 11/23/18 Aspirin* (ASPIRIN*) 81 Mg Tab.chew, 81 MG ORAL DAILY, TAB 06/11/18 Oxycodone Hcl Er* (OXYCONTIN*) 20 Mg Tab.er.12h, 20 MG ORAL EVERY 12 HOURS, TAB 06/20/16 Folic Acid* (FOLIC ACID*) 1 Mg Tablet, 1 MG ORAL DAILY, TAB 04/22/16 Discontinued Reported Medications Fluticasone/Salmeterol (ADVAIR HFA 115-21 MCG INHALER) 12 Gm Hfa.aer.ad, 2 PUFFS INH EVERY 12 HOURS PRN for Shortness of Breath, EA 06/20/16 Hydromorphone Hcl (HYDROMORPHONE HCL) 4 Mg Tablet, 16 MG PO Q4HR PRN for Severe Breakthru Pain (>7), TAB 04/22/16 Med list reviewed/reconciled: Yes Allergies: Coded Allergies: CAPSAICIN (Verified Allergy, Unknown, 11/23/18) CEFTRIAXONE (Verified Allergy, Unknown, 11/23/18) IOPAMIDOL (Unverified Allergy, Unknown, 01/01/19) Uncoded Allergies: IV CONTRAST (Allergy, Unknown, 01/01/19) CONTRAST (Adverse Reaction, Severe, Rash, 06/23/16) RADIOCONTRAST - RASH, ITCHING Patient History History Provided By: Patient, Medical Record PMH Narrative Past Medical History: asthma Past Surgical History: none Pertinent Family History: none Immunizations: UTD Reviewed Nursing Documentation: PMH: Agreed; PSxH: Agreed Nursing Documentation-PMH Past Medical History: No History, Except For Hx Hypertension: No - Port-A-Cath Hx Pacemaker: No Hx Asthma: Yes Hx COPD: No Hx Diabetes: No Hx Cancer: No Hx Gastrointestinal Problems: No Hx Dialysis: No Hx Neurological Problems: No Hx Cerebrovascular Accident: No Hx Seizures: No Social History: Denies: smoking, alcohol use, drug use, other Review of Systems All Other Systems: negative except mentioned in HPI Physical Exam Vital Signs Date Time Temp Pulse Resp B/P (MAP) Pulse Ox O2 Delivery O2 Flow Rate FiO2 01/05/19 08:00 97.8 75 22 129/85 (100) 99 01/05/19 09:00 Nasal Cannula 2.0 Sp02 EP Interpretation: reviewed, normal Labs Laboratory Tests Test 01/09/19 06:20 White Blood Count 16.3 K/UL (4.8-10.8) H Red Blood Count 3.30 M/UL (4.70-6.10) L Hemoglobin 8.7 G/DL (14.2-18.0) L Hematocrit 27.3 % (42.0-52.0) L Mean Corpuscular Volume 83 FL (80-99) Mean Corpuscular Hemoglobin 26.4 PG (27.0-31.0) L Mean Corpuscular Hemoglobin Concent 32.0 G/DL (32.0-36.0) Red Cell Distribution Width 17.7 % (11.6-14.8) H Platelet Count 294 K/UL (150-450) Mean Platelet Volume 7.1 FL (6.5-10.1) Neutrophils (%) (Auto) % (45.0-75.0) Lymphocytes (%) (Auto) % (20.0-45.0) Monocytes (%) (Auto) % (1.0-10.0) Eosinophils (%) (Auto) % (0.0-3.0) Basophils (%) (Auto) % (0.0-2.0) Neutrophils % (Manual) Pending Lymphocytes % (Manual) Pending Platelet Estimate Pending Platelet Morphology Pending Erythrocyte Sedimentation Rate 30 MM/HR (0-15) H Reticulocyte Count Pending Sodium Level 139 MMOL/L (136-145) Potassium Level 3.8 MMOL/L (3.5-5.1) Chloride Level 104 MMOL/L (98-107) Carbon Dioxide Level 29 MMOL/L (21-32) Anion Gap 6 mmol/L (5-15) Blood Urea Nitrogen 7 mg/dL (7-18) Creatinine 0.6 MG/DL (0.55-1.30) Estimat Glomerular Filtration Rate > 60 mL/min (>60) Glucose Level 121 MG/DL (74-106) H Calcium Level 8.7 MG/DL (8.5-10.1) Phosphorus Level 3.7 MG/DL (2.5-4.9) Magnesium Level 1.7 MG/DL (1.8-2.4) L Total Bilirubin 1.3 MG/DL (0.2-1.0) H Direct Bilirubin 0.5 MG/DL (0.0-0.3) H Aspartate Amino Transf (AST/SGOT) 44 U/L (15-37) H Alanine Aminotransferase (ALT/SGPT) 91 U/L (12-78) H Alkaline Phosphatase 98 U/L (46-116) Lactate Dehydrogenase 277 U/L (81-234) H Total Protein 7.4 G/DL (6.4-8.2) Albumin 3.2 G/DL (3.4-5.0) L Globulin 4.2 g/dL Albumin/Globulin Ratio 0.8 (1.0-2.7) L General Appearance: well appearing, no apparent distress, alert, obese Head: normocephalic EENT: PERRL/EOMI, normal ENT inspection Neck: supple Respiratory: normal breath sounds, no respiratory distress Cardiovascular: normal rate Gastrointestinal: normal inspection, non tender, soft, normal bowel sounds, non -distended Rectal: deferred Genitourinary: deferred Musculoskeletal: normal inspection, back normal Neurologic: normal inspection, alert, oriented x3, responsive Psychiatric: normal inspection, judgement/insight normal, memory normal Skin: normal inspection, normal color, no rash, warm/dry, palpation normal, well hydrated Lymphatic: normal inspection, no adenopathy Current Medications Current Medications Medications (Trade) Dose Ordered Sig/Arianne Route PRN Reason Start Time Stop Time Status Last Admin Dose Admin Acetaminophen (Tylenol) 650 mg Q4H PRN ORAL fever 01/01/19 19:40 01/31/19 19:39 01/06/19 20:33 Chlorhexidine Gluconate (Jihan-Hex 2%) 1 applic DAILY@1999 TOPIC 01/02/19 20:00 02/01/19 19:59 01/08/19 19:36 Dextrose (Dextrose 50%) 25 ml Q30M PRN IV Hypoglycemia 01/01/19 19:45 01/31/19 19:44 Dextrose (Dextrose 50%) 50 ml Q30M PRN IV Hypoglycemia 01/01/19 19:45 01/31/19 19:44 Diphenhydramine HCl (Benadryl) 50 mg Q6H PRN IVP Itching 01/02/19 11:45 02/01/19 11:44 01/09/19 06:32 Heparin Sodium (Porcine) (Heparin 5000 units/ml) 5,000 units EVERY 12 HOURS SUBQ 01/01/19 21:00 01/31/19 20:59 01/06/19 20:29 Hydromorphone HCl (Dilaudid) 2 mg Q3H PRN IVP Moderate Pain (Pain Scale 4-6) 01/08/19 21:21 01/15/19 21:20 01/09/19 09:56 Hydromorphone HCl (Dilaudid) 3 mg Q3H PRN IVP Severe Pain (Pain Scale 7-10) 01/08/19 21:21 01/15/19 21:20 01/09/19 03:33 Ondansetron HCl (Zofran) 4 mg Q6H PRN IVP Nausea & Vomiting 01/02/19 11:45 02/01/19 11:44 01/05/19 22:21 Oxycodone HCl (OxyCONTIN) 30 mg Q8H ORAL 01/09/19 10:00 01/16/19 09:59 Polyethylene Glycol (Miralax) 17 gm HSPRN PRN ORAL Constipation 01/01/19 21:00 01/31/19 20:59 Sodium Chloride 1,000 ml @ 160 mls/hr Q6H15M IV 01/05/19 08:30 02/04/19 08:29 01/09/19 09:56 GI: Plan Problems: (1) Anemia (2) Constipation (3) Sickle cell crisis Plan No plans for GI procedures at this time Symptomatic treatment anemia work up OB stool r/o GI bleed monitor H&H, prn transfusions bowel regimen prn ppi fu labs, trend LFTs Discussed with Dr. Vera. Thank you for this patient referral, we will follow. The patient was seen and examined at bedside and all new and available data was reviewed in the patients chart. I agree with the above findings, impression and plan. (Patient seen earlier today. Signature stamp does not reflect patient encounter time.). - MD Kennedi Hurtado,[facility] [employer] Jan 09, 2019 10:39
[2019-01-09] MEDS ORDERED: Miralax 17gm pkt ORAL PRN (10:45)
[2019-01-09 11:58] VITALS: BP 124/55
--- NOTE | 2019-01-09 13:35 | Infectious Diseases Prog Note ---
Assessment/Plan Problems: (1) Leukocytosis Assessment & Plan: no evidence of sepsis suspect sickle cell crises related , will monitor clinically for now off antibiotics , continue aggressive hydrations (2) Fever Assessment & Plan: no evidence of infection so far suspect sickle cell crises related , monitor off antibiotics , continue tylenol as needed (3) Port-A-Cath in place Assessment & Plan: continue local care as needed (4) Sickle cell disease Assessment & Plan: with crises , continue hydration with pain management as per primary , monitor H/H , hematology is following Subjective Constitutional: Reports: no symptoms HEENT: Reports: no symptoms Respiratory: Reports: no symptoms Breasts: Reports: no symptoms Cardiovascular: Reports: no symptoms Gastrointestinal/Abdominal: Reports: no symptoms Genitourinary: Reports: no symptoms Neurologic: Reports: no symptoms Psychiatric: Reports: no symptoms Skin: Reports: no symptoms Endocrine: Reports: no symptoms Hematologic: Reports: no symptoms Musculoskeletal: Reports: no symptoms Allergies: Coded Allergies: CAPSAICIN (Verified Allergy, Unknown, 11/23/18) CEFTRIAXONE (Verified Allergy, Unknown, 11/23/18) IOPAMIDOL (Unverified Allergy, Unknown, 01/01/19) Uncoded Allergies: IV CONTRAST (Allergy, Unknown, 01/01/19) CONTRAST (Adverse Reaction, Severe, Rash, 06/23/16) RADIOCONTRAST - RASH, ITCHING Objective Vital Signs Last 24 Hour Vital Signs Date Time Temp Pulse Resp B/P (MAP) Pulse Ox O2 Delivery O2 Flow Rate FiO2 01/09/19 11:58 98.3 72 22 124/55 (78) 96 01/09/19 09:00 Room Air 01/09/19 08:00 97.9 58 19 131/67 (88) 96 01/09/19 05:51 97.8 71 20 122/83 (96) 97 01/09/19 00:00 98.5 71 20 136/78 (97) 97 01/08/19 21:00 Room Air 01/08/19 20:00 98.1 68 20 114/60 (78) 95 Height (Feet): 5 Height (Inches): 6.00 Weight (Pounds): 249 General Appearance: WD/WN, no acute distress HEENT: normocephalic, atraumatic, anicteric, mucous membranes moist, PERRL Respiratory/Chest: chest wall non-tender, lungs clear, normal breath sounds, no respiratory distress, no accessory muscle use Cardiovascular: normal peripheral pulses, normal rate, regular rhythm, no gallop/murmur, no JVD Abdomen: normal bowel sounds, soft, non tender, no organomegaly, non distended , no mass, no scars Genitourinary: normal external genitalia Extremities: no cyanosis, no clubbing Skin: no rash, no lesions, no ulcers 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, no motor/sensory deficits, alert, responsive Lymphatic: no neck adenopathy, no groin adenopathy Musculoskeletal: normal muscle bulk, no effusion Laboratory Tests Test 01/09/19 06:20 White Blood Count 16.3 K/UL (4.8-10.8) H Red Blood Count 3.30 M/UL (4.70-6.10) L Hemoglobin 8.7 G/DL (14.2-18.0) L Hematocrit 27.3 % (42.0-52.0) L Mean Corpuscular Volume 83 FL (80-99) Mean Corpuscular Hemoglobin 26.4 PG (27.0-31.0) L Mean Corpuscular Hemoglobin Concent 32.0 G/DL (32.0-36.0) Red Cell Distribution Width 17.7 % (11.6-14.8) H Platelet Count 294 K/UL (150-450) Mean Platelet Volume 7.1 FL (6.5-10.1) Neutrophils (%) (Auto) % (45.0-75.0) Lymphocytes (%) (Auto) % (20.0-45.0) Monocytes (%) (Auto) % (1.0-10.0) Eosinophils (%) (Auto) % (0.0-3.0) Basophils (%) (Auto) % (0.0-2.0) Differential Total Cells Counted 100 Neutrophils % (Manual) 27 % (45-75) L Lymphocytes % (Manual) 60 % (20-45) H Monocytes % (Manual) 8 % (1-10) Eosinophils % (Manual) 4 % (0-3) H Basophils % (Manual) 1 % (0-2) Band Neutrophils 0 % (0-8) Platelet Estimate Adequate Platelet Morphology Normal Hypochromasia 2+ Anisocytosis 1+ Erythrocyte Sedimentation Rate 30 MM/HR (0-15) H Reticulocyte Count 8.2 % (0.5-2.0) H Sodium Level 139 MMOL/L (136-145) Potassium Level 3.8 MMOL/L (3.5-5.1) Chloride Level 104 MMOL/L (98-107) Carbon Dioxide Level 29 MMOL/L (21-32) Anion Gap 6 mmol/L (5-15) Blood Urea Nitrogen 7 mg/dL (7-18) Creatinine 0.6 MG/DL (0.55-1.30) Estimat Glomerular Filtration Rate > 60 mL/min (>60) Glucose Level 121 MG/DL (74-106) H Calcium Level 8.7 MG/DL (8.5-10.1) Phosphorus Level 3.7 MG/DL (2.5-4.9) Magnesium Level 1.7 MG/DL (1.8-2.4) L Total Bilirubin 1.3 MG/DL (0.2-1.0) H Direct Bilirubin 0.5 MG/DL (0.0-0.3) H Aspartate Amino Transf (AST/SGOT) 44 U/L (15-37) H Alanine Aminotransferase (ALT/SGPT) 91 U/L (12-78) H Alkaline Phosphatase 98 U/L (46-116) Lactate Dehydrogenase 277 U/L (81-234) H Total Protein 7.4 G/DL (6.4-8.2) Albumin 3.2 G/DL (3.4-5.0) L Globulin 4.2 g/dL Albumin/Globulin Ratio 0.8 (1.0-2.7) L Current Medications Medications (Trade) Dose Ordered Sig/Arianne Route PRN Reason Start Time Stop Time Status Last Admin Dose Admin Acetaminophen (Tylenol) 650 mg Q4H PRN ORAL fever 01/01/19 19:40 01/31/19 19:39 01/06/19 20:33 Chlorhexidine Gluconate (Jihan-Hex 2%) 1 applic DAILY@1999 TOPIC 01/02/19 20:00 02/01/19 19:59 01/08/19 19:36 Dextrose (Dextrose 50%) 25 ml Q30M PRN IV Hypoglycemia 01/01/19 19:45 01/31/19 19:44 Dextrose (Dextrose 50%) 50 ml Q30M PRN IV Hypoglycemia 01/01/19 19:45 01/31/19 19:44 Diphenhydramine HCl (Benadryl) 50 mg Q6H PRN IVP Itching 01/02/19 11:45 02/01/19 11:44 01/09/19 06:32 Heparin Sodium (Porcine) (Heparin 5000 units/ml) 5,000 units EVERY 12 HOURS SUBQ 01/01/19 21:00 01/31/19 20:59 01/06/19 20:29 Hydromorphone HCl (Dilaudid) 2 mg Q3H PRN IVP Moderate Pain (Pain Scale 4-6) 01/08/19 21:21 01/15/19 21:20 01/09/19 09:56 Hydromorphone HCl (Dilaudid) 3 mg Q3H PRN IVP Severe Pain (Pain Scale 7-10) 01/08/19 21:21 01/15/19 21:20 01/09/19 03:33 Ondansetron HCl (Zofran) 4 mg Q6H PRN IVP Nausea & Vomiting 01/02/19 11:45 02/01/19 11:44 01/05/19 22:21 Oxycodone HCl (OxyCONTIN) 30 mg Q8H ORAL 01/09/19 10:00 01/16/19 09:59 01/09/19 10:41 Polyethylene Glycol (Miralax) 17 gm DAILYPRN PRN ORAL Constipation 01/09/19 10:45 02/08/19 10:44 Sodium Chloride 1,000 ml @ 160 mls/hr Q6H15M IV 01/05/19 08:30 02/04/19 08:29 01/09/19 09:56 Emeka Solorzano M.D. Jan 09, 2019 13:35
--- NOTE | 2019-01-09 13:39 | Hematology/Onc Progress Note ---
Assessment/Plan Assessment/Plan ASSESSMENT AND PLAN: 1. 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 --> Presented in sickle crisis. on hydrea, opioids --> retic daily on a prn basis, proper response shown --> cbc has been reviewed --> continue hydrea 1500mg po daily --> continue indiral powder adjunct medication --> appreciate pain management recs --> return precautions given --> [place] iron chelating agent with Dr. Kerline Davenport as outpatient --> retic has improved 15-->8 2. Anemia, secondary to sickle cell disease/B thalassemia --> trend hgb 10-->8.8-->9.2-->8.0-->8.9 --> retic and ldh daily --> Hgb goal >7. 3. Thrombocytosis, potentially secondary to reactive process --> Currently WDL --> Plt trend: 616k -->512k--406k-->310k-->279k 4. Hyperproteinemia --> spep reviewed last admission 5. Leukocytosis could be related to infection --> WBC currently at 16.6 --> monitor for fever, if recurrent, obtain w/i --> Blood cx negative The timing of this note does not necessarily reflect the time of the patient was seen. Greatly appreciate consultation! Subjective Constitutional: Denies: no symptoms, chills, fever, malaise, weakness, other HEENT: Denies: no symptoms, eye pain, blurred vision, tearing, double vision, ear pain, ear discharge, nose pain, nose congestion, throat pain, throat swelling, mouth pain, mouth swelling, other Respiratory: Denies: no symptoms, cough, shortness of breath, SOB with excertion, SOB at rest, sputum, wheezing, other Gastrointestinal/Abdominal: Denies: no symptoms, abdomen distended, abdominal pain, black stools, tarry stools, blood in stool, constipated, diarrhea, difficulty swallowing, nausea, poor appetite, poor fluid intake, rectal bleeding , vomiting, other Genitourinary: Denies: no symptoms, burning, discharge, frequency, flank pain, hematuria, incontinence, pain, urgency, other Endocrine: Denies: no symptoms, excessive sweating, flushing, intolerance to cold, intolerance to heat, increased hunger, increased thirst, increased urine, unexplained weight gain, unexplained weight loss, other Hematologic/Lymphatic: Denies: no symptoms, anemia, easy bleeding, easy bruising, adenopathy, other Allergies: Coded Allergies: CAPSAICIN (Verified Allergy, Unknown, 11/23/18) CEFTRIAXONE (Verified Allergy, Unknown, 11/23/18) IOPAMIDOL (Unverified Allergy, Unknown, 01/01/19) Uncoded Allergies: IV CONTRAST (Allergy, Unknown, 01/01/19) CONTRAST (Adverse Reaction, Severe, Rash, 06/23/16) RADIOCONTRAST - RASH, ITCHING Subjective 01/04: no events noted, labs reviewed, no changes 01/05: Patient is awake alert, no acute distress noted but patient is reporting generalized body pain. 01/07: Pt seen and examined, alert and oriented x4, no sign of distress 01/08: Pt in bed resting, in stable condition 01/09: no events, seen by cards, retic better, potential dc soon Objective Objective Current Medications Medications (Trade) Dose Ordered Sig/Arianne Route PRN Reason Start Time Stop Time Status Last Admin Dose Admin Acetaminophen (Tylenol) 650 mg Q4H PRN ORAL fever 01/01/19 19:40 01/31/19 19:39 01/06/19 20:33 Chlorhexidine Gluconate (Jihan-Hex 2%) 1 applic DAILY@2000 TOPIC 01/02/19 20:00 02/01/19 19:59 01/08/19 19:36 Dextrose (Dextrose 50%) 25 ml Q30M PRN IV Hypoglycemia 01/01/19 19:45 01/31/19 19:44 Dextrose (Dextrose 50%) 50 ml Q30M PRN IV Hypoglycemia 01/01/19 19:45 01/31/19 19:44 Diphenhydramine HCl (Benadryl) 50 mg Q6H PRN IVP Itching 01/02/19 11:45 02/01/19 11:44 01/09/19 06:32 Heparin Sodium (Porcine) (Heparin 5000 units/ml) 5,000 units EVERY 12 HOURS SUBQ 01/01/19 21:00 01/31/19 20:59 01/06/19 20:29 Hydromorphone HCl (Dilaudid) 2 mg Q3H PRN IVP Moderate Pain (Pain Scale 4-6) 01/08/19 21:21 01/15/19 21:20 01/09/19 09:56 Hydromorphone HCl (Dilaudid) 3 mg Q3H PRN IVP Severe Pain (Pain Scale 7-10) 01/08/19 21:21 01/15/19 21:20 01/09/19 03:33 Ondansetron HCl (Zofran) 4 mg Q6H PRN IVP Nausea & Vomiting 01/02/19 11:45 02/01/19 11:44 01/05/19 22:21 Oxycodone HCl (OxyCONTIN) 30 mg Q8H ORAL 01/09/19 10:00 01/16/19 09:59 01/09/19 10:41 Polyethylene Glycol (Miralax) 17 gm DAILYPRN PRN ORAL Constipation 01/09/19 10:45 02/08/19 10:44 Sodium Chloride 1,000 ml @ 160 mls/hr Q6H15M IV 01/05/19 08:30 02/04/19 08:29 01/09/19 09:56 Last 24 Hour Vital Signs Date Time Temp Pulse Resp B/P (MAP) Pulse Ox O2 Delivery O2 Flow Rate FiO2 01/09/19 11:58 98.3 72 22 124/55 (78) 96 01/09/19 09:00 Room Air 01/09/19 08:00 97.9 58 19 131/67 (88) 96 01/09/19 05:51 97.8 71 20 122/83 (96) 97 01/09/19 00:00 98.5 71 20 136/78 (97) 97 01/08/19 21:00 Room Air 01/08/19 20:00 98.1 68 20 114/60 (78) 95 01/08/19 11:57 97.8 56 18 116/66 (83) 96 01/08/19 07:22 Room Air 01/08/19 04:00 97.7 90 17 123/67 (85) 96 01/08/19 00:00 98.4 76 18 120/67 (84) 98 01/07/19 21:00 Room Air 01/07/19 20:00 98.8 92 18 134/69 (90) 98 01/07/19 16:00 97.5 68 16 127/78 (94) 100 Intake and Output 01/08/19 01/09/19 18:59 06:59 Intake Total 2760 ml 2720 ml Output Total 2700 ml 900 ml Balance 60 ml 1820 ml Intake Oral 1000 ml 800 ml IV Total 1760 ml 1920 ml Output Urine Total 2700 ml 900 ml Labs Test 01/07/19 04:50 01/08/19 05:45 01/09/19 06:20 White Blood Count 11.3 K/UL (4.8-10.8) 16.6 K/UL (4.8-10.8) 16.3 K/UL (4.8-10.8) Red Blood Count 3.02 M/UL (4.70-6.10) 3.32 M/UL (4.70-6.10) 3.30 M/UL (4.70-6.10) Hemoglobin 8.0 G/DL (14.2-18.0) 8.9 G/DL (14.2-18.0) 8.7 G/DL (14.2-18.0) Hematocrit 25.3 % (42.0-52.0) 27.6 % (42.0-52.0) 27.3 % (42.0-52.0) Mean Corpuscular Volume 84 FL (80-99) 83 FL (80-99) 83 FL (80-99) Mean Corpuscular Hemoglobin 26.4 PG (27.0-31.0) 26.9 PG (27.0-31.0) 26.4 PG (27.0-31.0) Mean Corpuscular Hemoglobin Concent 31.5 G/DL (32.0-36.0) 32.4 G/DL (32.0-36.0) 32.0 G/DL (32.0-36.0) Red Cell Distribution Width 19.9 % (11.6-14.8) 18.1 % (11.6-14.8) 17.7 % (11.6-14.8) Platelet Count 310 K/UL (150-450) 279 K/UL (150-450) 294 K/UL (150-450) Mean Platelet Volume 6.9 FL (6.5-10.1) 6.4 FL (6.5-10.1) 7.1 FL (6.5-10.1) Neutrophils (%) (Auto) 49.3 % (45.0-75.0) % (45.0-75.0) % (45.0-75.0) Lymphocytes (%) (Auto) 35.7 % (20.0-45.0) % (20.0-45.0) % (20.0-45.0) Monocytes (%) (Auto) 10.4 % (1.0-10.0) % (1.0-10.0) % (1.0-10.0) Eosinophils (%) (Auto) 3.7 % (0.0-3.0) % (0.0-3.0) % (0.0-3.0) Basophils (%) (Auto) 1.0 % (0.0-2.0) % (0.0-2.0) % (0.0-2.0) Sodium Level 139 MMOL/L (136-145) 140 MMOL/L (136-145) 139 MMOL/L (136-145) Potassium Level 3.8 MMOL/L (3.5-5.1) 3.6 MMOL/L (3.5-5.1) 3.8 MMOL/L (3.5-5.1) Chloride Level 103 MMOL/L (98-107) 103 MMOL/L (98-107) 104 MMOL/L (98-107) Carbon Dioxide Level 30 MMOL/L (21-32) 31 MMOL/L (21-32) 29 MMOL/L (21-32) Anion Gap 6 mmol/L (5-15) 6 mmol/L (5-15) 6 mmol/L (5-15) Blood Urea Nitrogen 4 mg/dL (7-18) 6 mg/dL (7-18) 7 mg/dL (7-18) Creatinine 0.6 MG/DL (0.55-1.30) 0.7 MG/DL (0.55-1.30) 0.6 MG/DL (0.55-1.30) Estimat Glomerular Filtration Rate > 60 mL/min (>60) > 60 mL/min (>60) > 60 mL/min (>60) Glucose Level 127 MG/DL (74-106) 125 MG/DL (74-106) 121 MG/DL (74-106) Calcium Level 8.5 MG/DL (8.5-10.1) 8.8 MG/DL (8.5-10.1) 8.7 MG/DL (8.5-10.1) Differential Total Cells Counted 100 100 Neutrophils % (Manual) 34 % (45-75) 27 % (45-75) Lymphocytes % (Manual) 57 % (20-45) 60 % (20-45) Monocytes % (Manual) 5 % (1-10) 8 % (1-10) Eosinophils % (Manual) 2 % (0-3) 4 % (0-3) Basophils % (Manual) 2 % (0-2) 1 % (0-2) Band Neutrophils 0 % (0-8) 0 % (0-8) Nucleated Red Blood Cells 50 /100 WBC Platelet Estimate Adequate Adequate Platelet Morphology Normal Normal Polychromasia 2+ Hypochromasia 2+ 2+ Anisocytosis 2+ 1+ Erythrocyte Sedimentation Rate 30 MM/HR (0-15) Reticulocyte Count 8.2 % (0.5-2.0) Phosphorus Level 3.7 MG/DL (2.5-4.9) Magnesium Level 1.7 MG/DL (1.8-2.4) Total Bilirubin 1.3 MG/DL (0.2-1.0) Direct Bilirubin 0.5 MG/DL (0.0-0.3) Aspartate Amino Transf (AST/SGOT) 44 U/L (15-37) Alanine Aminotransferase (ALT/SGPT) 91 U/L (12-78) Alkaline Phosphatase 98 U/L (46-116) Lactate Dehydrogenase 277 U/L (81-234) Total Protein 7.4 G/DL (6.4-8.2) Albumin 3.2 G/DL (3.4-5.0) Globulin 4.2 g/dL Albumin/Globulin Ratio 0.8 (1.0-2.7) Height (Feet): 5 Height (Inches): 6.00 Weight (Pounds): 249 Objective PHYSICAL EXAMINATION: VITAL SIGNS: have been reviewed HEENT: PERRLA. NECK: Supple. No lymphadenopathy. CHEST: Clear to auscultation CARDIOVASCULAR: Regular rate and rhythm. No murmurs or extra sounds. ABDOMEN: Soft, nontender, nondistended. No organomegaly. EXTREMITIES: No edema. Moves all four extremities. NEUROLOGIC: Sensory intact to touch. Reflexes are equal on both sides. Moves all four extremities. Lewis Olmedo MD Jan 09, 2019 13:39
--- NOTE | 2019-01-09 14:22 | Pulmonology Progress Note ---
Assessment/Plan Problems: (1) Sickle cell crisis (2) Port-A-Cath in place Assessment/Plan doing uch better barrett cultures, all negatives f/u reti count and LDH iv fluid at 150 cc/hour wants to go home Subjective ROS Limited/Unobtainable: No HEENT: Repors: no symptoms Respiratory: Reports: no symptoms Allergies: Coded Allergies: CAPSAICIN (Verified Allergy, Unknown, 11/23/18) CEFTRIAXONE (Verified Allergy, Unknown, 11/23/18) IOPAMIDOL (Unverified Allergy, Unknown, 01/01/19) Uncoded Allergies: IV CONTRAST (Allergy, Unknown, 01/01/19) CONTRAST (Adverse Reaction, Severe, Rash, 06/23/16) RADIOCONTRAST - RASH, ITCHING Objective Last 24 Hour Vital Signs Date Time Temp Pulse Resp B/P (MAP) Pulse Ox O2 Delivery O2 Flow Rate FiO2 01/09/19 11:58 98.3 72 22 124/55 (78) 96 01/09/19 09:00 Room Air 01/09/19 08:00 97.9 58 19 131/67 (88) 96 01/09/19 05:51 97.8 71 20 122/83 (96) 97 01/09/19 00:00 98.5 71 20 136/78 (97) 97 01/08/19 21:00 Room Air 01/08/19 20:00 98.1 68 20 114/60 (78) 95 Intake and Output 01/08/19 01/09/19 18:59 06:59 Intake Total 2760 ml 2720 ml Output Total 2700 ml 900 ml Balance 60 ml 1820 ml Intake Oral 1000 ml 800 ml IV Total 1760 ml 1920 ml Output Urine Total 2700 ml 900 ml General Appearance: WD/WN HEENT: normocephalic, atraumatic Respiratory/Chest: chest wall non-tender, lungs clear Cardiovascular: normal peripheral pulses, normal rate Abdomen: normal bowel sounds, soft, non tender Laboratory Tests 01/09/19 06:20: White Blood Count 16.3H, Red Blood Count 3.30L, Hemoglobin 8.7L, Hematocrit 27.3L, Mean Corpuscular Volume 83, Mean Corpuscular Hemoglobin 26.4L, Mean Corpuscular Hemoglobin Concent 32.0, Red Cell Distribution Width 17.7H, Platelet Count 294, Mean Platelet Volume 7.1, Neutrophils (%) (Auto) , Lymphocytes (%) (Auto) , Monocytes (%) (Auto) , Eosinophils (%) (Auto) , Basophils (%) (Auto) , Differential Total Cells Counted 100, Neutrophils % ( Manual) 27L, Lymphocytes % (Manual) 60H, Monocytes % (Manual) 8, Eosinophils % ( Manual) 4H, Basophils % (Manual) 1, Band Neutrophils 0, Platelet Estimate Adequate, Platelet Morphology Normal, Hypochromasia 2+, Anisocytosis 1+, Erythrocyte Sedimentation Rate 30H, Reticulocyte Count 8.2H, Sodium Level 139, Potassium Level 3.8, Chloride Level 104, Carbon Dioxide Level 29, Anion Gap 6, Blood Urea Nitrogen 7, Creatinine 0.6, Estimat Glomerular Filtration Rate > 60, Glucose Level 121H, Calcium Level 8.7, Phosphorus Level 3.7, Magnesium Level 1.7L, Total Bilirubin 1.3H, Direct Bilirubin 0.5H, Aspartate Amino Transf (AST/ SGOT) 44H, Alanine Aminotransferase (ALT/SGPT) 91H, Alkaline Phosphatase 98, Lactate Dehydrogenase 277H, Total Protein 7.4, Albumin 3.2L, Globulin 4.2, Albumin/Globulin Ratio 0.8L Current Medications Medications (Trade) Dose Ordered Sig/Arianne Route PRN Reason Start Time Stop Time Status Last Admin Dose Admin Acetaminophen (Tylenol) 650 mg Q4H PRN ORAL fever 01/01/19 19:40 01/31/19 19:39 01/06/19 20:33 Chlorhexidine Gluconate (Jihan-Hex 2%) 1 applic DAILY@2000 TOPIC 01/02/19 20:00 02/01/19 19:59 01/08/19 19:36 Dextrose (Dextrose 50%) 25 ml Q30M PRN IV Hypoglycemia 01/01/19 19:45 01/31/19 19:44 Dextrose (Dextrose 50%) 50 ml Q30M PRN IV Hypoglycemia 01/01/19 19:45 01/31/19 19:44 Diphenhydramine HCl (Benadryl) 50 mg Q6H PRN IVP Itching 01/02/19 11:45 02/01/19 11:44 01/09/19 13:45 Heparin Sodium (Porcine) (Heparin 5000 units/ml) 5,000 units EVERY 12 HOURS SUBQ 01/01/19 21:00 01/31/19 20:59 01/06/19 20:29 Hydromorphone HCl (Dilaudid) 2 mg Q3H PRN IVP Moderate Pain (Pain Scale 4-6) 01/08/19 21:21 01/15/19 21:20 01/09/19 13:49 Hydromorphone HCl (Dilaudid) 3 mg Q3H PRN IVP Severe Pain (Pain Scale 7-10) 01/08/19 21:21 01/15/19 21:20 01/09/19 03:33 Ondansetron HCl (Zofran) 4 mg Q6H PRN IVP Nausea & Vomiting 01/02/19 11:45 02/01/19 11:44 01/05/19 22:21 Oxycodone HCl (OxyCONTIN) 30 mg Q8H ORAL 01/09/19 10:00 01/16/19 09:59 01/09/19 10:41 Polyethylene Glycol (Miralax) 17 gm DAILYPRN PRN ORAL Constipation 01/09/19 10:45 02/08/19 10:44 Sodium Chloride 1,000 ml @ 160 mls/hr Q6H15M IV 01/05/19 08:30 02/04/19 08:29 01/09/19 09:56 Ranjith Caicedo MD Jan 09, 2019 14:22
[2019-01-09 16:06] VITALS: BP 111/67
[2019-01-09] MEDS ORDERED: NS 275ml ONE (16:19)
[2019-01-09] MEDS ORDERED: Tubing Blood Filter IV ONE (16:19)
[2019-01-09] MEDS ORDERED: 1/2 NS 1000ml IV ONE ×2 (16:19)
--- NOTE | 2019-01-09 19:08 | Internal Med Progress Note ---
Subjective Date of Service: Jan 09, 2019 Physician Name Edilson Rubalcava Attending Physician Jersey Bearden MD Allergies: Coded Allergies: CAPSAICIN (Verified Allergy, Unknown, 11/23/18) CEFTRIAXONE (Verified Allergy, Unknown, 11/23/18) IOPAMIDOL (Unverified Allergy, Unknown, 01/01/19) Uncoded Allergies: IV CONTRAST (Allergy, Unknown, 01/01/19) CONTRAST (Adverse Reaction, Severe, Rash, 06/23/16) RADIOCONTRAST - RASH, ITCHING ROS Limited/Unobtainable: No Constitutional: Reports: no symptoms HEENT: Reports: no symptoms Cardiovascular: Reports: no symptoms Respiratory: Reports: no symptoms Gastrointestinal/Abdominal: Reports: no symptoms Genitourinary: Reports: no symptoms Neurologic/Psychiatric: Reports: no symptoms Subjective 23 YO M admitted with sickle cell crisis and leukocytosis. Cover for Int Med- Dr Beraden Objective Last Vital Signs Date Time Temp Pulse Resp B/P (MAP) Pulse Ox O2 Delivery O2 Flow Rate FiO2 01/09/19 16:06 98.5 77 20 111/67 (82) 97 01/09/19 09:00 Room Air 01/06/19 09:00 2.0 Laboratory Tests Test 01/09/19 06:20 White Blood Count 16.3 K/UL (4.8-10.8) H Red Blood Count 3.30 M/UL (4.70-6.10) L Hemoglobin 8.7 G/DL (14.2-18.0) L Hematocrit 27.3 % (42.0-52.0) L Mean Corpuscular Volume 83 FL (80-99) Mean Corpuscular Hemoglobin 26.4 PG (27.0-31.0) L Mean Corpuscular Hemoglobin Concent 32.0 G/DL (32.0-36.0) Red Cell Distribution Width 17.7 % (11.6-14.8) H Platelet Count 294 K/UL (150-450) Mean Platelet Volume 7.1 FL (6.5-10.1) Neutrophils (%) (Auto) % (45.0-75.0) Lymphocytes (%) (Auto) % (20.0-45.0) Monocytes (%) (Auto) % (1.0-10.0) Eosinophils (%) (Auto) % (0.0-3.0) Basophils (%) (Auto) % (0.0-2.0) Differential Total Cells Counted 100 Neutrophils % (Manual) 27 % (45-75) L Lymphocytes % (Manual) 60 % (20-45) H Monocytes % (Manual) 8 % (1-10) Eosinophils % (Manual) 4 % (0-3) H Basophils % (Manual) 1 % (0-2) Band Neutrophils 0 % (0-8) Platelet Estimate Adequate Platelet Morphology Normal Hypochromasia 2+ Anisocytosis 1+ Erythrocyte Sedimentation Rate 30 MM/HR (0-15) H Reticulocyte Count 8.2 % (0.5-2.0) H Sodium Level 139 MMOL/L (136-145) Potassium Level 3.8 MMOL/L (3.5-5.1) Chloride Level 104 MMOL/L (98-107) Carbon Dioxide Level 29 MMOL/L (21-32) Anion Gap 6 mmol/L (5-15) Blood Urea Nitrogen 7 mg/dL (7-18) Creatinine 0.6 MG/DL (0.55-1.30) Estimat Glomerular Filtration Rate > 60 mL/min (>60) Glucose Level 121 MG/DL (74-106) H Calcium Level 8.7 MG/DL (8.5-10.1) Phosphorus Level 3.7 MG/DL (2.5-4.9) Magnesium Level 1.7 MG/DL (1.8-2.4) L Total Bilirubin 1.3 MG/DL (0.2-1.0) H Direct Bilirubin 0.5 MG/DL (0.0-0.3) H Aspartate Amino Transf (AST/SGOT) 44 U/L (15-37) H Alanine Aminotransferase (ALT/SGPT) 91 U/L (12-78) H Alkaline Phosphatase 98 U/L (46-116) Lactate Dehydrogenase 277 U/L (81-234) H Total Protein 7.4 G/DL (6.4-8.2) Albumin 3.2 G/DL (3.4-5.0) L Globulin 4.2 g/dL Albumin/Globulin Ratio 0.8 (1.0-2.7) L Intake and Output 01/08/19 01/09/19 18:59 06:59 Intake Total 2760 ml 2720 ml Output Total 2700 ml 900 ml Balance 60 ml 1820 ml Intake Oral 1000 ml 800 ml IV Total 1760 ml 1920 ml Output Urine Total 2700 ml 900 ml Objective PHYSICAL EXAMINATION: GENERAL: The patient is a well-developed and well-nourished male, in no apparent distress. HEENT: Eyes, pupils are equal and responsive to light and accommodation. Extraocular movements are intact. NECK: Supple without lymphadenopathy. CHEST: Lungs are clear to auscultation bilaterally without wheezes or rales. CARDIOVASCULAR: Regular rhythm and rate. S1 and S2 are normal without murmurs, rubs, or gallops. ABDOMEN: Soft, nontender, and nondistended. Positive bowel sounds. No evidence of hepatosplenomegaly. Currently, no rebound or guarding noted. EXTREMITIES: Negative for clubbing, cyanosis, or edema. RECTAL/GENITAL: Refused. NEUROLOGIC: Cranial nerves II through XII are grossly intact without focal deficits. Motor strength is 5/5 bilaterally. Deep tendon reflexes are 2+ plantar. Assessment/Plan Assessment/Plan ASSESSMENT: This is a 23-year-old white male. 1. Sickle cell crisis. 2. Sickle cell disease. 3. Asthma. 4. Avascular necrosis of the left hip. 5. Leukocytosis; R/O sepsis TREATMENT: 1. Sickle cell crisis/sickle cell disease. A Hematology/Oncology consultation was obtained with Dr. Kerline Davenport. The patient is currently receiving intravenous fluids and pain management intravenously. We will follow recommendations of Hematology/Oncology. 2. Asthma. Continue Advair as above. 3. Avascular necrosis of the hip. 4. Leukocytosis. Resolving. An Infectious Disease consultation has been obtained with Dr. Solorzano. Blood cultures are negative. D/C vancomycin and aztreonam per ID 5. Discharge home today Edilson Rubalcava MD Jan 09, 2019 19:08
--- NOTE | 2019-01-10 10:27 | Discharge Summary ---
Discharge Summary Discharge Summary _ DATE OF ADMISSION: 01/01/2019 DATE OF DISCHARGE: 01/09/2019 DISCHARGED BY: Dr. Bearden REASON FOR ADMISSION: 23 years old male with past medical history of sickle cell disease, asthma, presented to the emergency room for evaluation. Patient complained of generalized pain, described as sharp , nonradiating, 10 out of 10 on a scale 1-10. He denied fever or chills. Patient reported compliance with his medications. Upon evaluation vital signs revealed low-grade fever 100.6. Pulse oximetry was stable on room air. Laboratory work-up revealed leukocytosis WBC 20.8, hemoglobin 9.8, hematocrit 30.3. Reticulocyte count-10.2 Electrolytes and renal parameters stable. LDH 344. AST 62, ALT 122 , total bilirubin 1.4, direct bilirubin 0.3. Troponin negative . EKG revealed sinus rhythm, no acute ischemic changes . Albumin 4.1 . Chest x-ray revealed no acute cardiopulmonary pathology, some prominent vasculature without definite CHF noted. Right chest port noted. In the emergency department patient pancultured , started on IV fluids and empiric antibiotic and admitted for further management for sickle cell crisis and leukocytosis. CONSULTANTS: pulmonary Dr. Caicedo ID specialist Dr. Dr. Solorzano GI specialist Dr. Vera brokerage manager/oncologist Dr. Olmedo pain specialist Dr. Tucker HOSPITAL COURSE: Patient admitted to medical surgical floor. Patient was provided with generous IV hydration. Supplemental oxygen provided as needed to keep pulse oximetry above 92%. Pulmonary toilet was on standby. Whizzer Hand followed. No evidence of asthma exacerbation. Hemoglobin and hematocrit were closely monitored with goal to keep hemoglobin above 7 . Cigar Making Machine Supervisor followed. Patient received 1 unit of packed red blood cells while in the hospital. 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 Patient was presented in sickle cell crisis. Patient was continued on Hydrea. Pain management was addressed per pain specialist recommendation. Reticulocyte count and LDH were monitored on a daily basis. Patient apparently on iron chelating agent [place] as per outpatient brokerage manager Dr Davenport. Reticulocyte count improved from 15 down to 8. Thrombocytosis was likely secondary to reactive process, trended down to normal. Patient with evidence of hyperproteinemia. Serum protein electrophoresis was reviewed on prior admission. Leukocytosis trending down. Fever resolved. Infectious disease doctor followed. Patient initially was on empiric antibiotics. Blood cultures were negative. Antibiotic stopped. ID specialist recommended to monitor patient off antibiotics . No evidence of sepsis. Leukocytosis was likely related to sickle cell crisis LFT were closely monitored, trending down , likely related to sickle cell crisis. Patient clinically stabilized. Leukocytosis trending down ,fevers resolved , no evidence of infection. Reticulocyte and LH trending down; hemoglobin and hematocrit at baseline. LFT trending down. Patient was stable for discharge home with outpatient follow-up with his brokerage manager. 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 DISCHARGE INSTRUCTIONS: Patient was discharged home . Follow up with brokerage manager in one week. I have been assigned to dictate discharge summary for this account. I was not involved in the patient's management. Giovanna Montalvo NP Jan 10, 2019 10:27
== END 2019-01-09 16:20 | disposition home or self-care (01) | DRG 662 ==
LOC: EDBD 16:23 → EMR 17:24 → 3E 18:44 → EDBEDREQ 19:57 → 3E 01-04 08:27
DX: D57.00 Hb-SS disease with crisis, unspecified (principal); M87.9 Osteonecrosis, unspecified; E88.09 Other disorders of plasma-protein metabolism, not elsewhere classified; J45.909 Unspecified asthma, uncomplicated; D72.829 Elevated white blood cell count, unspecified; D47.3 Essential (hemorrhagic) thrombocythemia
CPT/HCPCS: 36415; 71045; 80048; 80053; 80202; 82248; 82550; 82553; 83605; 83615; 83735; 84100; 84484; 85007; 85025; 85044; 85610; 85651; 85730; 86850; 86900; 86901; 86920; 87040; 93005; 96361; 96365; 96366; 96375; 96376; 99285; J2405; J8499

== ENCOUNTER 2019-02-27 16:13 | Emergency (ER) | payer MEDICAID ==
[~2019-02-27] VITALS: Ht 167.6 cm; Wt 115.7 kg
[~2019-02-27 16:13] MED LIST changes: +ADVAIR 250/501 PUFFS INH; +HYDROMORPHONE HC8 MG ORAL; +NKM
--- NOTE | 2019-02-27 16:36 | NUR ---
ED Nurse Note: PT WALKED IN TO ER TODAY FROM HOME. AOX4. PT C/O BILATERAL KNEE PAIN X 2 DAYS AGO AND BELIEVES IT IS DUE TO SICKLE CELL CRISIS. PT C/O PAIN 04/17. PT STATES HE WAS AT HIS PMD'S OFFICE AND WAS GIVEN IV HYDRATION, HYDROMORPHONE, AND ZOFRAN BUT WITH NO RELIEF. PT WAS REFERRED TO ER BY PMD SINCE TREATMENT WAS NOT EFFECTIVE.
[2019-02-27 16:37] VITALS: BP 136/74
--- NOTE | 2019-02-27 16:42 | NUR ---
ED Nurse Note: OF NOTE, PT PRESENTS WITH PORT-A-CATH TO RIGHT UPPER CHEST. PT REQUESTING TO ACCESS PORT FOR BLOOD DRAW AND MEDICATIONS.
[2019-02-27] MEDS ORDERED: HYDROmorphone 2 MG in NS 55 ML IV ONE (16:45)
--- NOTE | 2019-02-27 17:05 | Emergency Room Report ---
History of Present Illness General Chief Complaint: Pain Source: Patient Present Illness HPI Patient presents with complaints of leg pain Reports that he is having a sickle cell crisis reports that he was across the street at his heme oncologist office Patient was being treated for sickle cell disease And now reports that as he was being discharged in the clinic his discomfort persisted Denies any chest pain or shortness of breath denies any vomiting Denies any focal weakness Allergies: Coded Allergies: CAPSAICIN (Verified Allergy, Unknown, 11/23/18) CEFTRIAXONE (Verified Allergy, Unknown, 11/23/18) IOPAMIDOL (Unverified Allergy, Unknown, 01/01/19) Uncoded Allergies: IV CONTRAST (Allergy, Unknown, 01/01/19) CONTRAST (Adverse Reaction, Severe, Rash, 06/23/16) RADIOCONTRAST - RASH, ITCHING Patient History Past Medical History: see triage record Past Surgical History: none Reviewed Nursing Documentation: PMH: Agreed; PSxH: Agreed Nursing Documentation-PMH Past Medical History: No History, Except For Hx Hypertension: No - Port-A-Cath Hx Pacemaker: No Hx Asthma: Yes Hx COPD: No Hx Diabetes: No Hx Cancer: No Hx Gastrointestinal Problems: No Hx Dialysis: No Hx Neurological Problems: No Hx Cerebrovascular Accident: No Hx Seizures: No Review of Systems All Other Systems: negative except mentioned in HPI Physical Exam Vital Signs Date Time Temp Pulse Resp B/P (MAP) Pulse Ox O2 Delivery O2 Flow Rate FiO2 02/27/19 16:24 99.1 66 20 142/79 (100) 94 Room Air Sp02 EP Interpretation: reviewed, normal General Appearance: well appearing, no apparent distress Head: normocephalic, atraumatic Eyes: bilateral eye PERRL, bilateral eye EOMI ENT: hearing 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, normal pharynx, TMs + canals normal, uvula midline Neck: full range of motion, supple, no meningismus, no bony tend Respiratory: lungs clear, normal breath sounds, no rhonchi, no respiratory distress, no retraction, no accessory muscle use Cardiovascular #1: normal peripheral pulses, regular rate, rhythm, no edema, no gallop, no JVD, no murmur Gastrointestinal: normal bowel sounds, non tender, soft, no mass, no organomegaly, non-distended, no guarding, no hernia, no pulsatile mass, no rebound Genitourinary: no CVA tenderness Musculoskeletal: normal inspection 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, responsive, ham boner III-XII nml as tested, motor strength/ tone normal, sensory intact Psychiatric: mood/affect normal Skin: no rash Lymphatic: normal inspection, no adenopathy Medical Decision Making Diagnostic Impression: Primary Impression: Sickle cell disease ER Course Multiple differentials including but not limited to acute sickle cell crisis, infectious pathology, dehydration entertained Patient's blood work appears Similar to multiple previous examinations Patient was further hydrated along with pain medication Hemodynamically stable Patient does not meet criteria for any further inpatient care on this visit and will follow closely with his critical care transport nurse Labs Test 02/27/19 17:00 White Blood Count 15.6 K/UL (4.8-10.8) Red Blood Count 3.56 M/UL (4.70-6.10) Hemoglobin 9.4 G/DL (14.2-18.0) Hematocrit 30.8 % (42.0-52.0) Mean Corpuscular Volume 86 FL (80-99) Mean Corpuscular Hemoglobin 26.3 PG (27.0-31.0) Mean Corpuscular Hemoglobin Concent 30.5 G/DL (32.0-36.0) Red Cell Distribution Width 17.2 % (11.6-14.8) Platelet Count 349 K/UL (150-450) Mean Platelet Volume 6.1 FL (6.5-10.1) Neutrophils (%) (Auto) 37.6 % (45.0-75.0) Lymphocytes (%) (Auto) 53.9 % (20.0-45.0) Monocytes (%) (Auto) 4.7 % (1.0-10.0) Eosinophils (%) (Auto) 1.6 % (0.0-3.0) Basophils (%) (Auto) 2.2 % (0.0-2.0) Reticulocyte Count 10.9 % (0.5-2.0) Sodium Level 138 MMOL/L (136-145) Potassium Level 3.8 MMOL/L (3.5-5.1) Chloride Level 102 MMOL/L (98-107) Carbon Dioxide Level 28 MMOL/L (21-32) Anion Gap 8 mmol/L (5-15) Blood Urea Nitrogen 4 mg/dL (7-18) Creatinine 0.6 MG/DL (0.55-1.30) Estimat Glomerular Filtration Rate > 60 mL/min (>60) Glucose Level 103 MG/DL (74-106) Calcium Level 9.3 MG/DL (8.5-10.1) Total Bilirubin 1.7 MG/DL (0.2-1.0) Direct Bilirubin 0.4 MG/DL (0.0-0.3) Aspartate Amino Transf (AST/SGOT) 59 U/L (15-37) Alanine Aminotransferase (ALT/SGPT) 73 U/L (12-78) Alkaline Phosphatase 129 U/L (46-116) Total Protein 8.0 G/DL (6.4-8.2) Albumin 4.1 G/DL (3.4-5.0) Globulin 3.9 g/dL Albumin/Globulin Ratio 1.1 (1.0-2.7) Lipase 64 U/L (73-393) Rhythm Strip Diag. Results EP Interpretation: yes Rate: 77 Rhythm: NSR, no PVC's, no ectopy Last Vital Signs Date Time Temp Pulse Resp B/P (MAP) Pulse Ox O2 Delivery O2 Flow Rate FiO2 02/27/19 16:37 98.9 72 18 136/74 96 Room Air Status: improved Disposition: HOME, SELF-CARE Condition: Improved Referrals: Kerline Davenport MD (PCP) Additional Instructions: Patient is provided with the discharge instructions notified to follow up with primary doctor in the next 2-3 days otherwise return to the er with any worsening symptoms. Please note that this report is being documented using DRAGON technology. This can lead to erroneous entry secondary to incorrect interpretation by the dictating instrument. Tevin Petersen DO Feb 27, 2019 17:05
[2019-02-27 17:25] LABS: ANION GAP 8 mmol/L (5-15); BASOPHILS % (AUTO) 2.2 % (0.0-2.0); BLOOD UREA NITROGEN 4 mg/dL (7-18); CALCIUM 9.3 MG/DL (8.5-10.1); CARBON DIOXIDE 28 MMOL/L (21-32); CHLORIDE 102 MMOL/L (98-107); CREATININE 0.6 MG/DL (0.55-1.30); EOSINOPHILS % (AUTO) 1.6 % (0.0-3.0); HEMATOCRIT 30.8 % (42.0-52.0); HEMOGLOBIN 9.4 G/DL (14.2-18.0); LYMPHOCYTES % (AUTO) 53.9 % (20.0-45.0); MEAN CORPUSCULAR VOLUME 86 FL (80-99); MONOCYTES % (AUTO) 4.7 % (1.0-10.0); NEUTROPHILS % (AUTO) 37.6 % (45.0-75.0); PLATELET COUNT 349 K/UL (150-450); POTASSIUM 3.8 MMOL/L (3.5-5.1); RED BLOOD COUNT 3.56 M/UL (4.70-6.10); RED CELL DISTRIBUTION WIDTH 17.2 % (11.6-14.8); SODIUM 138 MMOL/L (136-145); WHITE BLOOD COUNT 15.6 K/UL (4.8-10.8)
--- NOTE | 2019-02-27 17:34 | NUR ---
ED Nurse Note: PT'S PAIN MEDS ADMINISTERED. PT STATES PAIN IS NOW AT 8/10. PT LAYING PEACEFULLY IN BED WATCHING VIDEOS ON HIS CELL PHONE. NO SIGNS OF DISTRESS.
[2019-02-27 17:36] LABS: ALANINE AMINOTRANSFERASE 73 U/L (12-78); ALBUMIN 4.1 G/DL (3.4-5.0); ALBUMIN/GLOBULIN RATIO 1.1 (1.0-2.7); ALKALINE PHOSPHATASE 129 U/L (46-116); ASPARTATE AMINO TRANSFERASE 59 U/L (15-37); BILIRUBIN,TOTAL 1.7 MG/DL (0.2-1.0)
[2019-02-27 17:38] LABS: BILIRUBIN,DIRECT 0.4 MG/DL (0.0-0.3)
--- NOTE | 2019-02-27 19:08 | NUR ---
ED Nurse Note: PT LAYING PEACEFULLY IN BED IN NAD. AOX4. DISCHARGE PAPERWORK EXPLAINED TO PT. PT VERBALIZES UNDERSTANDING AND ALL QUESTIONS ANSWERED. DISCHARGE PAPERWORK GIVEN TO PT AND ID WRISTBAND REMOVED. PT WALKED OUT OF ER WITH STEADY GAIT AND ALL BELONGINGS.
[2019-02-27 19:10] VITALS: BP 132/76
== END 2019-02-27 19:11 | disposition home or self-care (01) ==
LOC: EMR 17:00
DX: D57.1 Sickle-cell disease without crisis (principal); Z88.8 Allergy status to other drugs, medicaments and biological substances; Z91.041 Radiographic dye allergy status
CPT/HCPCS: 36415; 80053; 82248; 83690; 85025; 85044; 96361; 96374; 99284; J1170

== ENCOUNTER 2019-03-20 17:08 | Inpatient (IN) | payer MEDICAID ==
[~2019-03-20] VITALS: Ht 160 cm; Wt 115.2 kg
[2019-03-20 17:11] VITALS: BP 126/77
--- NOTE | 2019-03-20 17:11 | NUR ---
ED Nurse Note: pt walked in to ER c/o general body pain 10/10 due to sickle cell disease. pt aao x4 and ambulatory but weak due to severe pain. pt calm and cooperative but moaning for pain. skin clean and intact but pale. pt in gown and on clinical research monitor.
--- NOTE | 2019-03-20 17:43 | NUR ---
ED Nurse Note: x-ray at bedside.
--- NOTE | 2019-03-20 17:43 | Emergency Room Report ---
History of Present Illness General Chief Complaint: General Complaint Source: Patient, Medical Record Present Illness HPI 23-year-old male presenting with pain for 1 week. 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 He has had several pain crisis is in the past. Complains of knee pain bilateral as well as chest pain. No shortness of breath no fever no chills. He takes OxyContin as well as Dilaudid. 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 Allergies: Coded Allergies: CAPSAICIN (Verified Allergy, Unknown, 11/23/18) CEFTRIAXONE (Verified Allergy, Unknown, 11/23/18) IOPAMIDOL (Unverified Allergy, Unknown, 01/01/19) Uncoded Allergies: IV CONTRAST (Allergy, Unknown, 01/01/19) CONTRAST (Adverse Reaction, Severe, Rash, 06/23/16) RADIOCONTRAST - RASH, ITCHING Patient History Past Medical History: see triage record Past Surgical History: none Pertinent Family History: none Reviewed Nursing Documentation: PMH: Agreed; PSxH: Agreed Nursing Documentation-PMH Hx Hypertension: No - Port-A-Cath Hx Pacemaker: No Hx Asthma: Yes Hx COPD: No Hx Diabetes: No Hx Cancer: No Hx Gastrointestinal Problems: No Hx Dialysis: No Hx Neurological Problems: No Hx Cerebrovascular Accident: No Hx Seizures: No Review of Systems All Other Systems: negative except mentioned in HPI Physical Exam Vital Signs Date Time Temp Pulse Resp B/P (MAP) Pulse Ox O2 Delivery O2 Flow Rate FiO2 03/20/19 17:15 99.0 76 18 122/64 (83) 96 Room Air Sp02 EP Interpretation: reviewed, normal General Appearance: alert, GCS 15, non-toxic, mild distress Head: normocephalic, atraumatic Eyes: bilateral eye normal inspection, bilateral eye PERRL, bilateral eye EOMI ENT: normal ENT inspection, normal pharynx, normal voice, moist mucus membranes Neck: normal inspection, full range of motion, supple Respiratory: normal inspection, lungs clear, normal breath sounds, no respiratory distress, no retraction, no wheezing, speaking full sentences, chest symmetrical Cardiovascular #1: normal inspection, regular rate, rhythm, no edema, normal capillary refill Cardiovascular #2: 2+ radial (R), 2+ radial (L) Gastrointestinal: normal inspection, non tender, soft, non-distended, no guarding Musculoskeletal: normal inspection, back normal, normal range of motion, non- tender Neurologic: normal inspection, alert, oriented x3, responsive, motor strength/ tone normal, sensory intact, normal gait, speech normal Psychiatric: normal inspection, judgement/insight normal, memory normal Medical Decision Making Diagnostic Impression: Primary Impression: Sickle cell crisis Additional Impression: Intractable pain ER Course 23-year-old male with chest pain knee pain DDX: Sickle cell pain, rule out severe anemia, acute chest syndrome Plan: Obtain labs, ua, ucx, CXR, EKG Medication IV fluids ER course: Patient has remained stable during ED stay. still required more pain meds still in pain Disposition: Patient is to be admitted to med surg Patient is instructed to follow up with their primary care doctor within 5 days. Strict return precautions discussed with patient such as fever, chills, worsening/severe pain, chest pain, SOB, nausea, vomiting, which may indicate severe illness. Patient verbalizes understanding and agrees with plan. Please note that this Emergency Department Report was dictated using [employer] clinical project manager technology software, occasionally this can lead to erroneous entry secondary to interpretation by the dictation equipment EKG Diagnostic Results EP Interpretation: Yes Rate: normal Rhythm: NSR ST Segments: No acute changes ASA given to patient: No Rhythm Strip EP Interpretation: Yes Rate: 70 Rhythm: NSR, no PVCs, no ectopy Chest X-ray CXR: Ordered: Yes 1 view Indication: Chest pain EP interpretation: Yes Interpretation: No consolidation, no effusion, no PTX, no acute cardiopulmonary disease Impression: No acute disease Electronically signed by Federica Duarte MD Laboratory Tests Test 03/20/19 17:40 White Blood Count 15.4 K/UL (4.8-10.8) H Red Blood Count 4.20 M/UL (4.70-6.10) L Hemoglobin 10.9 G/DL (14.2-18.0) L Hematocrit 34.4 % (42.0-52.0) L Mean Corpuscular Volume 82 FL (80-99) Mean Corpuscular Hemoglobin 25.9 PG (27.0-31.0) L Mean Corpuscular Hemoglobin Concent 31.6 G/DL (32.0-36.0) L Red Cell Distribution Width 16.0 % (11.6-14.8) H Platelet Count 562 K/UL (150-450) H Mean Platelet Volume 5.9 FL (6.5-10.1) L Neutrophils (%) (Auto) 55.5 % (45.0-75.0) Lymphocytes (%) (Auto) 39.2 % (20.0-45.0) Monocytes (%) (Auto) 3.4 % (1.0-10.0) Eosinophils (%) (Auto) 0.5 % (0.0-3.0) Basophils (%) (Auto) 1.5 % (0.0-2.0) Differential Total Cells Counted 100 Neutrophils % (Manual) 68 % (45-75) Lymphocytes % (Manual) 24 % (20-45) Monocytes % (Manual) 5 % (1-10) Eosinophils % (Manual) 2 % (0-3) Basophils % (Manual) 1 % (0-2) Band Neutrophils 0 % (0-8) Nucleated Red Blood Cells 28 /100 WBC Platelet Estimate Increased H Platelet Morphology Normal Polychromasia 2+ Hypochromasia 2+ Anisocytosis 2+ Sickle Cells 1+ H Target Cells 2+ Reticulocyte Count 11.2 % (0.5-2.0) H Sodium Level 136 MMOL/L (136-145) Potassium Level 3.8 MMOL/L (3.5-5.1) Chloride Level 104 MMOL/L (98-107) Carbon Dioxide Level 23 MMOL/L (21-32) Anion Gap 9 mmol/L (5-15) Blood Urea Nitrogen 5 mg/dL (7-18) L Creatinine 0.6 MG/DL (0.55-1.30) Estimate Glomerular Filtration Rate > 60 mL/min (>60) Glucose Level 123 MG/DL (74-106) H Calcium Level 8.7 MG/DL (8.5-10.1) Total Bilirubin 1.5 MG/DL (0.2-1.0) H Direct Bilirubin 0.4 MG/DL (0.0-0.3) H Aspartate Amino Transferase (AST) 57 U/L (15-37) H Alanine Aminotransferase (ALT) 73 U/L (12-78) Alkaline Phosphatase 115 U/L (46-116) Troponin I 0.000 ng/mL (0.000-0.056) Total Protein 8.5 G/DL (6.4-8.2) H Albumin 3.8 G/DL (3.4-5.0) Globulin 4.7 g/dL Albumin/Globulin Ratio 0.8 (1.0-2.7) L Last Vital Signs Date Time Temp Pulse Resp B/P (MAP) Pulse Ox O2 Delivery O2 Flow Rate FiO2 03/20/19 17:15 99.0 76 18 122/64 (83) 96 Room Air Disposition: ADMITTED INPATIENT Condition: Serious RetinoFederica M.D. Mar 20, 2019 17:43
[2019-03-20] MEDS ORDERED: HYDROmorphone 1mg/ml Carpuject IVP ONE ×3 (17:45→20:00)
[2019-03-20 18:04] LABS: BASOPHILS % (AUTO) 1.5 % (0.0-2.0); EOSINOPHILS % (AUTO) 0.5 % (0.0-3.0); HEMATOCRIT 34.4 % (42.0-52.0); HEMOGLOBIN 10.9 G/DL (14.2-18.0); LYMPHOCYTES % (AUTO) 39.2 % (20.0-45.0); MEAN CORPUSCULAR VOLUME 82 FL (80-99); MONOCYTES % (AUTO) 3.4 % (1.0-10.0); NEUTROPHILS % (AUTO) 55.5 % (45.0-75.0); PLATELET COUNT 562 K/UL (150-450); WHITE BLOOD COUNT 15.4 K/UL (4.8-10.8)
[2019-03-20 18:16] LABS: ANION GAP 9 mmol/L (5-15); BLOOD UREA NITROGEN 5 mg/dL (7-18); CALCIUM 8.7 MG/DL (8.5-10.1); CARBON DIOXIDE 23 MMOL/L (21-32); CHLORIDE 104 MMOL/L (98-107); CREATININE 0.6 MG/DL (0.55-1.30); POTASSIUM 3.8 MMOL/L (3.5-5.1); SODIUM 136 MMOL/L (136-145)
--- NOTE | 2019-03-20 18:21 | NUR ---
ED Nurse Note: pt reporte pain level 9/10. ERMD made aware.
[2019-03-20 18:26] LABS: ALANINE AMINOTRANSFERASE 73 U/L (12-78); ALBUMIN 3.8 G/DL (3.4-5.0); ALBUMIN/GLOBULIN RATIO 0.8 (1.0-2.7); ALKALINE PHOSPHATASE 115 U/L (46-116); ASPARTATE AMINO TRANSFERASE 57 U/L (15-37); BILIRUBIN,TOTAL 1.5 MG/DL (0.2-1.0)
[2019-03-20 18:27] LABS: BILIRUBIN,DIRECT 0.4 MG/DL (0.0-0.3)
--- NOTE | 2019-03-20 18:36 | NUR ---
ED Nurse Note: pt requested 1L/min oxygen via NC to help pain which usually helps. ERMD made aware.
--- NOTE | 2019-03-20 19:00 | NUR ---
HAND-OFF: Report given to EDU Rios. no orders to carry at this moment.
[2019-03-20 19:51] VITALS: BP 132/70
--- NOTE | 2019-03-20 19:51 | NUR ---
ED Nurse Note: Informed Dr. Duarte of patient's fever of 100.8, received orders for 650 tylenol
--- NOTE | 2019-03-20 21:05 | NUR ---
TRANSFER TO FLOOR: Patient transferred to Med-Surg, report given to EDU Reyez
[2019-03-20] MEDS ORDERED: HYDROmorphone 1mg/ml Carpuject IVP PRN (22:45)
[2019-03-20] MEDS ORDERED: Albuterol 90mcg Inhaler 8gm INH PRN (22:45)
[2019-03-20 23:00] VITALS: BP 146/96
[2019-03-20] MEDS: DiphenhydrAMINE 50mg/ml Inj IVP PRN (23:31)
[2019-03-21] MEDS: DiphenhydrAMINE 50mg/ml Inj IVP PRN ×7 (02:30→20:58)
[2019-03-21 03:31] VITALS: BP 138/62
--- NOTE | 2019-03-21 04:36 | NUR ---
NURSE NOTES: Admitted a 23 year old, male, complaint of pain 10/10 on groin area radiates down to the legs. Patient claimed that the pain medicine he had in ER didn't help him that much. Spoke with Dr. Bearden and obtained admission orders. Instructed patient that urine sample is needed to be collected. Blood culture sample was collected by the lab staff. RN was unable to draw enough blood from the port-a-cath but it was flushing. Charge nurse made aware.
[2019-03-21] MEDS: Heparin 5000 units/ml inj SUBQ SCH ×3 (05:21→22:21)
--- NOTE | 2019-03-21 06:35 | NUR ---
NURSE NOTES: Dr. Bearden was notified regarding unable to do blood culture from the port-a-cath.
--- NOTE | 2019-03-21 06:37 | NUR ---
NURSE NOTES: Unable to collect fresh urine. Patient notified RN late. Pt was reinstructed for urine sample collection.
--- NOTE | 2019-03-21 07:19 | NUR ---
HAND-OFF: Report given to EDU Gould.
--- NOTE | 2019-03-21 07:25 | NUR ---
NURSE NOTES: Patient lying in bed awake. Complain of pain 7/10 on surgical site and will administer pain medication as ordered. Skin intact and dry. Surgical dressing stained. IV dressing intact and dry. Bed lowest position. Call light within reach. Will continue to monitor. Addendum: 03/21/19 at 1039 by KANE ARCHER RN Wrong nursing note. Nursing note for another patient.
--- NOTE | 2019-03-21 07:26 | NUR ---
NURSE NOTES: Patient lying in bed awake. Complain of pain 9/10 and pain medication given by parking meter installer nurse. Will continue to monitor. Skin intact and dry. Port-a-cath on right upper chest and dressing intact and dry. Bed lowest position. Call light within reach. Will continue to monitor.
[2019-03-21 08:00] VITALS: BP 133/75
[2019-03-21] MEDS: Wixela 250/50 Inhaler - 60 dose INH SCH ×2 (09:26→20:03)
[2019-03-21] MEDS: oxyCONTIN 20mg tab ORAL SCH ×2 (09:55→22:23)
[2019-03-21] MEDS: Aspirin Baby 81mg ORAL SCH (09:55)
[2019-03-21] MEDS: Hydroxyurea 500mg cap ORAL SCH ×2 (09:55→17:50)
--- NOTE | 2019-03-21 11:47 | NUR ---
NURSE NOTES: Seen and evaluated by and new order received. Order read back and carried out.
--- NOTE | 2019-03-21 11:58 | Consultation ---
History of Present Illness General Date patient seen: Mar 21, 2019 Chief Complaint: General Complaint Present Illness HPI 23-year-old male with hx of SCD, presented to ER with generalized pain for 1 week. Complains of knee pain bilateral as well as chest pain. No shortness of breath no fever no chills. He takes OxyContin as well as Dilaudid. Allergies: Coded Allergies: CAPSAICIN (Verified Allergy, Unknown, 11/23/18) CEFTRIAXONE (Verified Allergy, Unknown, 11/23/18) IOPAMIDOL (Unverified Allergy, Unknown, 01/01/19) Uncoded Allergies: IV CONTRAST (Allergy, Unknown, 01/01/19) CONTRAST (Adverse Reaction, Severe, Rash, 06/23/16) RADIOCONTRAST - RASH, ITCHING Medication History Scheduled Aspirin* (Aspirin*), 81 MG ORAL DAILY, (Reported) Fluticasone/Salmeterol (Advair 250-50 Diskus), 1 PUFF INH EVERY 12 HOURS, ( Reported) Folic Acid* (Folic Acid*), 1 MG ORAL DAILY, (Reported) Hydroxyurea (Hydroxyurea), 1,500 MG PO DAILY, (Reported) Linezolid* (Zyvox*), 600 MG ORAL EVERY 12 HOURS, (Reported) No Known Medications* (NKM - No Known Medications*), 0 ., (Reported) Oxycodone Hcl Er* (Oxycontin*), 20 MG ORAL EVERY 12 HOURS, (Reported) Scheduled PRN Hydromorphone Hcl (Hydromorphone Hcl), 8 MG ORAL EVERY 3 HOURS PRN for For Pain, (Reported) Patient History Healthcare decision maker Resuscitation status Full Code Advanced Directive on File Past Medical/Surgical History Past Medical/Surgical History: (1) Port-A-Cath in place (2) Sickle cell disease Review of Systems All Other Systems: negative except mentioned in HPI Physical Exam General Appearance: WD/WN Lines, tubes and drains: peripheral HEENT: normocephalic, anicteric Neck: non-tender, normal alignment Respiratory/Chest: chest wall non-tender, lungs clear, decreased breath sounds Cardiovascular/Chest: normal rate Abdomen: normal bowel sounds Genitourinary/Rectal: normal genital exam Extremities: normal range of motion Last 24 Hour Vital Signs Date Time Temp Pulse Resp B/P (MAP) Pulse Ox O2 Delivery O2 Flow Rate FiO2 03/21/19 09:27 74 18 94 Room Air 21 03/21/19 09:00 Room Air 03/21/19 08:00 100.2 81 19 133/75 (94) 97 03/21/19 03:31 99.3 68 16 138/62 (87) 95 03/21/19 01:33 Room Air 03/20/19 23:00 99.3 80 20 146/96 (113) 92 03/20/19 21:05 99.5 89 18 125/72 96 Room Air 03/20/19 20:45 100.8 03/20/19 20:30 99.8 03/20/19 19:51 100.8 97 18 132/70 96 Room Air 03/20/19 19:04 98.9 03/20/19 18:17 98.9 03/20/19 17:15 99.0 76 18 122/64 (83) 96 Room Air 03/20/19 17:11 98 17 Room Air 03/20/19 17:11 98.8 97 17 126/77 99 Room Air Intake and Output 03/20/19 03/21/19 19:00 07:00 Intake Total 1000 ml 580 ml Balance 1000 ml 580 ml Intake Oral 0 ml 480 ml IV Total 1000 ml 100 ml # Voids 1 3 Laboratory Tests Test 03/20/19 17:40 White Blood Count 15.4 K/UL (4.8-10.8) H Red Blood Count 4.20 M/UL (4.70-6.10) L Hemoglobin 10.9 G/DL (14.2-18.0) L Hematocrit 34.4 % (42.0-52.0) L Mean Corpuscular Volume 82 FL (80-99) Mean Corpuscular Hemoglobin 25.9 PG (27.0-31.0) L Mean Corpuscular Hemoglobin Concent 31.6 G/DL (32.0-36.0) L Red Cell Distribution Width 16.0 % (11.6-14.8) H Platelet Count 562 K/UL (150-450) H Mean Platelet Volume 5.9 FL (6.5-10.1) L Neutrophils (%) (Auto) 55.5 % (45.0-75.0) Lymphocytes (%) (Auto) 39.2 % (20.0-45.0) Monocytes (%) (Auto) 3.4 % (1.0-10.0) Eosinophils (%) (Auto) 0.5 % (0.0-3.0) Basophils (%) (Auto) 1.5 % (0.0-2.0) Differential Total Cells Counted 100 Neutrophils % (Manual) 68 % (45-75) Lymphocytes % (Manual) 24 % (20-45) Monocytes % (Manual) 5 % (1-10) Eosinophils % (Manual) 2 % (0-3) Basophils % (Manual) 1 % (0-2) Band Neutrophils 0 % (0-8) Nucleated Red Blood Cells 28 /100 WBC Platelet Estimate Increased H Platelet Morphology Normal Polychromasia 2+ Hypochromasia 2+ Anisocytosis 2+ Sickle Cells 1+ H Target Cells 2+ Reticulocyte Count 11.2 % (0.5-2.0) H Sodium Level 136 MMOL/L (136-145) Potassium Level 3.8 MMOL/L (3.5-5.1) Chloride Level 104 MMOL/L (98-107) Carbon Dioxide Level 23 MMOL/L (21-32) Anion Gap 9 mmol/L (5-15) Blood Urea Nitrogen 5 mg/dL (7-18) L Creatinine 0.6 MG/DL (0.55-1.30) Estimat Glomerular Filtration Rate > 60 mL/min (>60) Glucose Level 123 MG/DL (74-106) H Calcium Level 8.7 MG/DL (8.5-10.1) Total Bilirubin 1.5 MG/DL (0.2-1.0) H Direct Bilirubin 0.4 MG/DL (0.0-0.3) H Aspartate Amino Transf (AST/SGOT) 57 U/L (15-37) H Alanine Aminotransferase (ALT/SGPT) 73 U/L (12-78) Alkaline Phosphatase 115 U/L (46-116) Troponin I 0.000 ng/mL (0.000-0.056) Total Protein 8.5 G/DL (6.4-8.2) H Albumin 3.8 G/DL (3.4-5.0) Globulin 4.7 g/dL Albumin/Globulin Ratio 0.8 (1.0-2.7) L Height (Feet): 5 Height (Inches): 3.00 Weight (Pounds): 254 Medications Current Medications Medications (Trade) Dose Ordered Sig/Arianne Route PRN Reason Start Time Stop Time Status Last Admin Dose Admin Acetaminophen (Tylenol) 650 mg Q6H PRN ORAL Mild Pain/Temp > 100.5 03/20/19 22:45 04/19/19 22:44 Albuterol Sulfate (Proventil MDI) 2 puff Q3H PRN INH Shortness of Breath 03/20/19 22:45 04/19/19 22:44 Aspirin (ASA) 81 mg DAILY ORAL 03/21/19 09:00 04/20/19 08:59 03/21/19 09:55 Diphenhydramine HCl (Benadryl) 25 mg Q3H PRN IVP Itching 03/20/19 22:45 04/19/19 22:44 03/21/19 11:34 Folic Acid (Folate) 1 mg DAILY ORAL 03/21/19 09:00 04/20/19 08:59 03/21/19 09:55 Heparin Sodium (Porcine) (Heparin 5000 units/ml) 5,000 units EVERY 8 HOURS SUBQ 03/21/19 06:00 04/20/19 05:59 Hydromorphone HCl (Dilaudid) 1 mg Q3H PRN IVP Moderate Pain (Pain Scale 4-6) 03/20/19 22:45 03/27/19 22:44 Hydromorphone HCl (Dilaudid) 2 mg Q3H PRN IVP Severe Pain (Pain Scale 7-10) 03/20/19 22:45 03/27/19 22:44 03/21/19 11:35 Hydroxyurea (Hydrea) 500 mg TWICE A DAY ORAL 03/21/19 09:00 03/26/19 08:59 03/21/19 09:55 Levofloxacin 100 ml @ 100 mls/hr Q24H IVPB 03/20/19 23:30 03/27/19 23:29 03/21/19 00:58 Oxycodone HCl (OxyCONTIN) 20 mg Q12HR ORAL 03/21/19 09:00 03/28/19 08:59 03/21/19 09:55 Salmeterol Xinafoate/ Fluticasone (Advair 250/50 Diskus) 1 puffs EVERY 12 HOURS INH 03/21/19 09:00 04/20/19 08:59 03/21/19 09:26 Sodium Chloride 1,000 ml @ 75 mls/hr [id number] IV 03/21/19 12:00 04/20/19 11:59 Assessment/Plan Problem List: (1) Intractable pain ICD Codes: R52 - Pain, unspecified SNOMED: 42853279 (2) Anemia ICD Codes: D64.9 - Anemia, unspecified SNOMED: 073267070 (3) Sickle cell crisis ICD Codes: D57.00 - Hb-SS disease with crisis, unspecified SNOMED: 003295915 (4) Port-A-Cath in place ICD Codes: Z95.828 - Presence of other vascular implants and grafts SNOMED: 003922303 Assessment/Plan: iv fluids supplemental oxygen pain management daily LDH and bilirubin to follow hemolysis symptomatic treatment Ranjith Caicedo MD Mar 21, 2019 11:58
[2019-03-21 12:00] VITALS: BP 140/77
--- NOTE | 2019-03-21 12:09 | Diagnostic Imaging Report ---
Indication: Dyspnea Comparison: 01/01/2019 A single view chest radiograph was obtained. Findings: Study is limited by low lung volumes. Perihilar structures are prominent. There is a right chest port. Difficult to exclude perihilar infiltrate. Heart size is normal. Bones are unremarkable. IMPRESSION: Question of perihilar infiltrate. Limited evaluation due to low lung volumes
--- NOTE | 2019-03-21 12:42 | NUR ---
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 SI: Sickle Cell Pain VS: BP: 126/77 HR: 97 RR 17 02 Sat 99% (RA) T: 98.8 NT: WBC 15.4 RBC 4.2 Hgb 10.9 Hct 34.4 Red Cell Distri 16.0 Plt 562 Mean Plt 5.9 Sickle Cell 1+ BUN 5 Bilirubin Total 1.5 Direct Bilirubin 0.4 AST/SGOT 57 Total Protein 8.5 IS: NS 1000ml Dilaudid 1mg IVP Dilaudid 1mg IVP Dilaudid 1mg IVP Tylenol 325mg Oral Admitted to MedSurg MedSurg status DCP: Pending Hospital Stay
--- NOTE | 2019-03-21 15:07 | History & Physical ---
History and Physical History & Physicial Dictated for Int Med-Dr Bearden no. [id number] Edilson Rubalcava MD Mar 21, 2019 15:07
[2019-03-21 16:00] VITALS: BP 131/78
--- NOTE | 2019-03-21 18:45 | History and Physical Report ---
DATE OF ADMISSION: 03/20/2019 CHIEF COMPLAINT: The patient is a 23-year-old male with history of sickle cell disease, who presents with chief complaint of generalized pain and fatigue. HISTORY OF PRESENT ILLNESS: The patient was admitted to [facility] in December 2018 for sickle cell crisis. Please see history and physical and discharge summary dictated at that time. The patient presented to [place] emergency room complaining of a three-day history of generalized pain and fatigue. The patient stated he thought he was having a sickle cell crisis. The patient was admitted for generalized pain and probable sickle cell crisis. REVIEW OF SYSTEMS: CONSTITUTIONAL: The patient denies weight loss or weight gain. The patient denies fevers or chills. HEENT: The patient denies ear or throat pain. The patient denies headache. CARDIOVASCULAR: The patient denies palpitations or chest pain. CHEST: The patient denies wheeze or shortness of breath. ABDOMEN: The patient denies nausea, vomiting, diarrhea, or constipation. GENITOURINARY: The patient denies dysuria or increased frequency of urination. NEUROMUSCULAR: The patient complains of generalized pain as above. The patient denies seizures or generalized weakness. PAST MEDICAL HISTORY: Significant for: 1. Sickle cell disease. 2. Asthma. 3. Avascular necrosis of the left hip. PAST SURGICAL HISTORY: Significant for: 1. 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 2. Port-A-Cath placement in the right chest. CURRENT MEDICATIONS: 1. Aspirin 81 mg one tablet p.o. daily. 2. Advair 250/50 mcg one puff p.o. twice daily. 3. Folic acid 1 mg p.o. daily. 4. Dilaudid 8 mg one tablet p.o. q.3 h. p.r.n. 5. Hydroxyurea 1500 mg p.o. daily. 6. OxyContin 20 mg one tablet p.o. twice daily. ALLERGIES: 1. Capsaicin. 2. Ceftriaxone. 3. IV contrast dye. 4. Iopamidol. SOCIAL HISTORY: The patient is single and lives with his family. The patient denies tobacco or alcohol use. PHYSICAL EXAMINATION: VITAL SIGNS: Temperature 99.2, respirations 16, pulse 60, and blood pressure 113/62. GENERAL: The patient is a well-developed and well-nourished, slightly obese male, in no apparent distress. HEENT: Eyes, pupils are equal and responsive to light and accommodation. Extraocular movements are intact. NECK: Supple without lymphadenopathy. CHEST: Lungs are clear to auscultation bilaterally without wheezes or rales. CARDIOVASCULAR: Regular rhythm and rate. S1, S2 normal without murmurs, rubs, or gallops. ABDOMEN: Soft, nontender, and nondistended. Positive bowel sounds. No evidence of hepatosplenomegaly. Currently, no rebound or guarding noted. EXTREMITIES: Negative for clubbing, cyanosis, or edema. RECTAL/GENITAL: Not performed. NEUROLOGIC: Cranial nerves II through XII are grossly intact without focal deficits. Motor strength is 5/5 bilaterally. Deep tendon reflexes are 2+ plantar. LABORATORY STUDIES: WBC 15.4, hemoglobin 10.9, hematocrit 34.4, and platelets 562,000. Sodium 136, potassium 3.8, chloride 104, CO2 23, BUN 5, and creatinine 0.6. Glucose 123. Troponin 0.0. Total bilirubin elevated at 1.5, direct bilirubin elevated at 0.4. ASSESSMENT: This is a 23-year-old male with: 1. Fatigue. 2. Generalized pain. 3. Probable sickle cell crisis. 4. Sickle cell disease. 5. Asthma. 6. Avascular necrosis of the left hip. TREATMENT: 1. Sickle cell crisis/generalized pain/fatigue. A Hematology-Oncology consultation has been obtained with Dr. Kerline Davenport. We will follow recommendations of Hematology. The patient has been started on intravenous fluids. Dilaudid will be used intravenously for pain control. 2. Sickle cell disease. As above, a Hematology-Oncology consultation is pending. 3. Asthma. Continue Advair as above. 4. Avascular necrosis of left hip. Edilson Rubalcava M.D. DR: HEMALATHA JOB#: [id number] CC:
--- NOTE | 2019-03-21 19:29 | NUR ---
HAND-OFF: Report given to Annelise RN. Patient in stable condition.
[2019-03-21] MEDS ORDERED: ALBUTEROL SULF8.5 GM INH (19:51)
[2019-03-21 20:00] VITALS: BP 118/76
--- NOTE | 2019-03-21 20:09 | NUR ---
NURSE NOTES: Received report from Klaudia Burden RN (Danny). Patient A&Ox4. On nasal cannula. No signs of distress or labored breathing. Portacath intact, accessed and patent. Infusing fluids. Bed in lowest position with call light in reach. Will continue with plan of care.
[2019-03-21] MEDS: Dyna-Hex 2% Top Sol 2oz TOPIC SCH (20:58)
[2019-03-22] VITALS: BP 125/75
[2019-03-22] MEDS: DiphenhydrAMINE 50mg/ml Inj IVP PRN ×8 (00:24→22:23)
[2019-03-22] MEDS: Heparin 5000 units/ml inj SUBQ SCH (06:00)
--- NOTE | 2019-03-22 07:19 | NUR ---
HAND-OFF: Report given to Andrew Mckinney RN (Jamie).
[2019-03-22] MEDS: Wixela 250/50 Inhaler - 60 dose INH SCH ×2 (07:30→21:01)
[2019-03-22 08:00] VITALS: BP 110/59
--- NOTE | 2019-03-22 08:03 | NUR ---
NURSE NOTES: Received pt in bed. AO x 4. On NC 2 L/min. No s/s of distress. Portacath on R upper chest noted. Bed in the lowest and locked. Call light within reach. Will continue to monitor.
[2019-03-22] MEDS: oxyCONTIN 20mg tab ORAL SCH ×2 (08:42→21:26)
[2019-03-22] MEDS: Aspirin Baby 81mg ORAL SCH (08:42)
[2019-03-22] MEDS: Hydroxyurea 500mg cap ORAL SCH ×2 (08:42→18:56)
[2019-03-22 12:00] VITALS: BP 117/63
--- NOTE | 2019-03-22 12:02 | Pulmonology Progress Note ---
Assessment/Plan Problems: (1) Intractable pain (2) Anemia (3) Sickle cell crisis (4) Port-A-Cath in place Assessment/Plan increase Iv fluids increase nasal cannula to 3 liters check h/h,,LDH daily continue same pain regimen Subjective ROS Limited/Unobtainable: No Constitutional: Reports: no symptoms HEENT: Repors: no symptoms Respiratory: Reports: no symptoms Allergies: Coded Allergies: CAPSAICIN (Verified Allergy, Unknown, 11/23/18) CEFTRIAXONE (Verified Allergy, Unknown, 11/23/18) IOPAMIDOL (Unverified Allergy, Unknown, 01/01/19) Uncoded Allergies: IV CONTRAST (Allergy, Unknown, 01/01/19) CONTRAST (Adverse Reaction, Severe, Rash, 06/23/16) RADIOCONTRAST - RASH, ITCHING Objective Last 24 Hour Vital Signs Date Time Temp Pulse Resp B/P (MAP) Pulse Ox O2 Delivery O2 Flow Rate FiO2 03/22/19 09:00 Nasal Cannula 2.0 03/22/19 08:00 99.1 72 21 110/59 (76) 99 03/22/19 07:29 77 20 98 Nasal Cannula 2.0 28 03/22/19 07:27 77 20 98 Nasal Cannula 2.0 28 03/22/19 07:27 98 Nasal Cannula 2.0 28 03/22/19 00:00 98.1 69 19 125/75 (92) 97 03/21/19 21:00 Room Air 03/21/19 20:07 94 Nasal Cannula 2.0 28 03/21/19 20:06 75 18 94 Nasal Cannula 2.0 28 03/21/19 20:04 72 18 93 Nasal Cannula 2.0 28 03/21/19 20:00 98.9 69 18 118/76 (90) 96 03/21/19 16:00 97.6 70 20 131/78 (95) 99 Intake and Output 03/21/19 03/22/19 19:00 07:00 Intake Total 1200 ml 325 ml Output Total 725 ml Balance 1200 ml -400 ml Intake Oral 1200 ml IV Total 325 ml Output Urine Total 725 ml General Appearance: WD/WN HEENT: atraumatic, mucous membranes moist Respiratory/Chest: lungs clear, normal breath sounds Cardiovascular: normal peripheral pulses, regular rhythm Abdomen: soft, non tender, no scars Extremities: no clubbing Skin: no lesions Microbiology Date/Time Source Procedure Growth Status 03/21/19 15:45 Urine,Clean Catch Urine Culture - Preliminary NO GROWTH Resulted Current Medications Medications (Trade) Dose Ordered Sig/Arianne Route PRN Reason Start Time Stop Time Status Last Admin Dose Admin Acetaminophen (Tylenol) 650 mg Q6H PRN ORAL Mild Pain/Temp > 100.5 03/20/19 22:45 04/19/19 22:44 Albuterol Sulfate (Proventil MDI) 2 puff Q3H PRN INH Shortness of Breath 03/20/19 22:45 04/19/19 22:44 Aspirin (ASA) 81 mg DAILY ORAL 03/21/19 09:00 04/20/19 08:59 03/22/19 08:42 Chlorhexidine Gluconate (Jihan-Hex 2%) 1 applic DAILY@2000 TOPIC 03/21/19 20:00 04/20/19 19:59 03/21/19 20:58 Diphenhydramine HCl (Benadryl) 25 mg Q3H PRN IVP Itching 03/20/19 22:45 04/19/19 22:44 03/22/19 10:04 Folic Acid (Folate) 1 mg DAILY ORAL 03/21/19 09:00 04/20/19 08:59 03/22/19 08:42 Hydromorphone HCl (Dilaudid) 1 mg Q3H PRN IVP Moderate Pain (Pain Scale 4-6) 03/20/19 22:45 03/27/19 22:44 Hydromorphone HCl (Dilaudid) 2 mg Q3H IVP 03/22/19 13:45 03/27/19 22:44 UNV Hydroxyurea (Hydrea) 500 mg TWICE A DAY ORAL 03/21/19 09:00 03/26/19 08:59 03/22/19 08:42 Levofloxacin 100 ml @ 100 mls/hr Q24H IVPB 03/20/19 23:30 03/27/19 23:29 03/21/19 23:30 Oxycodone HCl (OxyCONTIN) 20 mg Q12HR ORAL 03/21/19 09:00 03/28/19 08:59 03/22/19 08:42 Salmeterol Xinafoate/ Fluticasone (Advair 250/50 Diskus) 1 puffs EVERY 12 HOURS INH 03/21/19 09:00 04/20/19 08:59 03/22/19 07:30 Sodium Chloride 1,000 ml @ 125 mls/hr Q8H IV 03/22/19 12:00 04/21/19 11:59 Ranjith Caicedo MD Mar 22, 2019 12:02
--- NOTE | 2019-03-22 15:41 | NUR ---
[employer] SI: SICKLE CELL CRISIS T. 99.5 HR 69 RR 21 B/P 110/59 2L NC O2 SAT @ 98% IS: IVF NS @ 125ML/HR ADVAIR INH ASA PO LEVAQUIN IV MED/SURG STATUS
[2019-03-22 16:00] VITALS: BP 137/82
--- NOTE | 2019-03-22 19:40 | NUR ---
NURSE NOTES: Report taken from EDU Stewart. Patient is awake and seated in chair, A&Ox4. No signs of distress on 2L NC. Having generalized pain, primarily through his chest and bilateral LE, 8/10. Skin is intact. Rt subclavian port-a-cath, c/d/i and patent, running 1/2NS @ 125mls/hr. Bed is in lowest position, call light within reach.
[2019-03-22 20:00] VITALS: BP 129/84
[2019-03-22] MEDS: Dyna-Hex 2% Top Sol 2oz TOPIC SCH (20:00)
--- NOTE | 2019-03-22 20:00 | NUR ---
HAND-OFF: Report given to EDU Baca.
--- NOTE | 2019-03-22 23:05 | Internal Med Progress Note ---
Subjective Physician Name Jersey Bearden Attending Physician Jersey Bearden MD Current Medications Medications (Trade) Dose Ordered Sig/Arianne Route PRN Reason Start Time Stop Time Status Last Admin Dose Admin Acetaminophen (Tylenol) 650 mg Q6H PRN ORAL Mild Pain/Temp > 100.5 03/20/19 22:45 04/19/19 22:44 Albuterol Sulfate (Proventil MDI) 2 puff Q3H PRN INH Shortness of Breath 03/20/19 22:45 04/19/19 22:44 Aspirin (ASA) 81 mg DAILY ORAL 03/21/19 09:00 04/20/19 08:59 03/22/19 08:42 Chlorhexidine Gluconate (Jihan-Hex 2%) 1 applic DAILY@1999 TOPIC 03/21/19 20:00 04/20/19 19:59 03/22/19 20:00 Diphenhydramine HCl (Benadryl) 25 mg Q3H PRN IVP Itching 03/20/19 22:45 04/19/19 22:44 03/22/19 22:23 Folic Acid (Folate) 1 mg DAILY ORAL 03/21/19 09:00 04/20/19 08:59 03/22/19 08:42 Hydromorphone HCl (Dilaudid) 1 mg Q3H PRN IVP Moderate Pain (Pain Scale 4-6) 03/20/19 22:45 03/27/19 22:44 Hydromorphone HCl (Dilaudid) 2 mg Q3H IVP 03/22/19 13:00 03/29/19 12:59 03/22/19 22:25 Hydroxyurea (Hydrea) 500 mg TWICE A DAY ORAL 03/21/19 09:00 03/26/19 08:59 03/22/19 18:56 Levofloxacin 100 ml @ 100 mls/hr Q24H IVPB 03/20/19 23:30 03/27/19 23:29 03/21/19 23:30 Oxycodone HCl (OxyCONTIN) 20 mg Q12HR ORAL 03/21/19 09:00 03/28/19 08:59 03/22/19 21:26 Salmeterol Xinafoate/ Fluticasone (Advair 250/50 Diskus) 1 puffs EVERY 12 HOURS INH 03/21/19 09:00 04/20/19 08:59 03/22/19 21:01 Sodium Chloride 1,000 ml @ 125 mls/hr Q8H IV 03/22/19 12:00 04/21/19 11:59 03/22/19 17:13 Allergies: Coded Allergies: CAPSAICIN (Verified Allergy, Unknown, 11/23/18) CEFTRIAXONE (Verified Allergy, Unknown, 11/23/18) IOPAMIDOL (Unverified Allergy, Unknown, 01/01/19) Uncoded Allergies: IV CONTRAST (Allergy, Unknown, 01/01/19) CONTRAST (Adverse Reaction, Severe, Rash, 06/23/16) RADIOCONTRAST - RASH, ITCHING Subjective Awake, alert, responsive, complaining about chest wall pain, decreased shortness of breath. Objective Last Vital Signs Date Time Temp Pulse Resp B/P (MAP) Pulse Ox O2 Delivery O2 Flow Rate FiO2 03/22/19 21:07 69 18 99 Nasal Cannula 2.0 28 03/22/19 16:00 99.8 137/82 (100) Microbiology Date/Time Source Procedure Growth Status 03/21/19 15:45 Urine,Clean Catch Urine Culture - Preliminary NO GROWTH Resulted Intake and Output 03/21/19 03/22/19 19:00 07:00 Intake Total 1200 ml 325 ml Output Total 725 ml Balance 1200 ml -400 ml Intake Oral 1200 ml IV Total 325 ml Output Urine Total 725 ml Objective General: No acute distress, awake and alert HEENT: NCAT, sclera anicteric, PERRL, EOMI. Neck: Supple, no significant jugular venous distention, Lungs: Good inspiratory effort, no accessory muscle use, clear to auscultation bilaterally, no Wheeze or Rales. CHEST WALL: PassPort on right side of chest wall intact no sign of infection. Heart: Regular rate and rhythm, normal S1/S2, no murmurs, Abdomen: soft, nontender, nondistended. Normoactive bowel sounds, morbid obesity / Rectal: Refused and deferred. Extremities: No Cyanosis , clubbing or edema. Neuro: A&O x 3, Able to move all extremities Skin: warm, no rash. Psych: Normal mood and affect Assessment/Plan Assessment/Plan 1. Giles fever. 2. Generalized pain. 3. Probable sickle cell crisis. 4. Sickle cell disease. 5. Asthma. 6. Avascular necrosis of the left hip. TREATMENT: 1. Sickle cell crisis/generalized pain/fatigue. A Hematology-Oncology consultation has been obtained with Dr. Kerline Davenport. We will follow recommendations of Hematology. The patient has been started on intravenous fluids. Dilaudid will be used intravenously for pain control. 2. Sickle cell disease. As above, a Hematology-Oncology consultation is pending. 3. Asthma. Continue Advair as above. 4. Avascular necrosis of left hip. Antibiotics: Levaquin IV hydration at 125 cc/hr Will monitor laboratory as well as culture CODE STATUS full code DVT prophylaxis heparin subcu. Jersey Bearden MD Mar 22, 2019 23:05
[2019-03-23] VITALS: BP 125/84
[2019-03-23] MEDS: DiphenhydrAMINE 50mg/ml Inj IVP PRN ×8 (01:27→23:34)
[2019-03-23 04:00] VITALS: BP 119/80
[2019-03-23 07:11] LABS: ALANINE AMINOTRANSFERASE 61 U/L (12-78); ALBUMIN 3.6 G/DL (3.4-5.0); ALBUMIN/GLOBULIN RATIO 0.8 (1.0-2.7); ALKALINE PHOSPHATASE 99 U/L (46-116); ANION GAP 10 mmol/L (5-15); ASPARTATE AMINO TRANSFERASE 44 U/L (15-37); BILIRUBIN,TOTAL 1.2 MG/DL (0.2-1.0); BLOOD UREA NITROGEN 8 mg/dL (7-18); CALCIUM 9.1 MG/DL (8.5-10.1); CARBON DIOXIDE 25 MMOL/L (21-32); CHLORIDE 101 MMOL/L (98-107); CREATININE 0.6 MG/DL (0.55-1.30); LACTATE DEHYDROGENASE 267 U/L (81-234); SODIUM 136 MMOL/L (136-145)
[2019-03-23 07:17] LABS: BASOPHILS % (AUTO) 0.9 % (0.0-2.0); EOSINOPHILS % (AUTO) 1.2 % (0.0-3.0); HEMATOCRIT 29.8 % (42.0-52.0); HEMOGLOBIN 9.7 G/DL (14.2-18.0); LYMPHOCYTES % (AUTO) 28.9 % (20.0-45.0); MEAN CORPUSCULAR VOLUME 81 FL (80-99); MONOCYTES % (AUTO) 8.7 % (1.0-10.0); NEUTROPHILS % (AUTO) 60.3 % (45.0-75.0); PLATELET COUNT 466 K/UL (150-450); RED BLOOD COUNT 3.66 M/UL (4.70-6.10); RED CELL DISTRIBUTION WIDTH 15.7 % (11.6-14.8); WHITE BLOOD COUNT 13.6 K/UL (4.8-10.8)
[2019-03-23 07:19] LABS: BILIRUBIN,DIRECT 0.3 MG/DL (0.0-0.3)
--- NOTE | 2019-03-23 07:33 | NUR ---
HAND-OFF: Report given to EDU Franco. Patient is awake and stable.
--- NOTE | 2019-03-23 07:45 | NUR ---
NURSE NOTES: Report received from Leroy SORENSEN. Patient is observed in bed, awake, alert, oriented, and able to make needs known. Respiratory even and unlabored. No s/s of acute distress at this time. IV site is asymptomatic, patent, and intact. IVF is running at prescribed rate. Bed is in lowest position with side rails up x2 and rbakes are engaged. Bed alarm is on. Encouraged patient to use call light when in need of assistance, patient verbalized understanding. Will continue to monitor.
[2019-03-23 08:00] VITALS: BP 149/72
[2019-03-23] MEDS: Wixela 250/50 Inhaler - 60 dose INH SCH ×2 (08:59→21:42)
[2019-03-23] MEDS: oxyCONTIN 20mg tab ORAL SCH ×2 (09:59→20:48)
[2019-03-23] MEDS: Aspirin Baby 81mg ORAL SCH (09:59)
[2019-03-23] MEDS: Hydroxyurea 500mg cap ORAL SCH ×2 (10:00→17:30)
--- NOTE | 2019-03-23 10:24 | NUR ---
RD ASSESSMENT & RECOMMENDATIONS SEE CARE ACTIVITY FOR COMPLETE ASSESSMENT DAILY ESTIMATED NEEDS: Needs based on Obese, pulmonary 77.3kg adj 20-25 kcals/kg 0568-7068 total kcals 1-1.5 g protein/kg 77-116 g total protein 25-30 mL/kg 0423-4323 total fluid mLs NUTRITION DIAGNOSIS: 1) Obesity etiology unknown as evidenced by BMI >40, pt is 179% [place] Body Weight. 2) Altered nutrition related lab values r/t clinical status, sickle cell crisis, low hgb 9.7, elev LD 267, febrile Tmax 99.8. CURRENT DIET:Regular PO DIET RECOMMENDATIONS: Low NA/ Low FAT diet ADDITIONAL RECOMMENDATIONS: 1) Obtain a STANDING weight as able for accurate CBW 2) Check lytes daily, replete as needed
[2019-03-23 12:00] VITALS: BP 124/73
[2019-03-23 16:00] VITALS: BP 139/71
[2019-03-23] MEDS: Levofloxacin 500mg tab ORAL SCH (17:11)
--- NOTE | 2019-03-23 19:45 | NUR ---
HAND-OFF: Report given to Purvi SORENSEN. Pateint is observed in bed, awake, alert, oriented, and able to make needs known. No acute distress noted. Endorsed plan of care.
[2019-03-23 20:00] VITALS: BP 125/67
[2019-03-23] MEDS: Dyna-Hex 2% Top Sol 2oz TOPIC SCH (20:44)
--- NOTE | 2019-03-23 23:30 | Internal Med Progress Note ---
Subjective Physician Name Jersey Bearden Attending Physician Jersey Bearden MD Current Medications Medications (Trade) Dose Ordered Sig/Arianne Route PRN Reason Start Time Stop Time Status Last Admin Dose Admin Acetaminophen (Tylenol) 650 mg Q6H PRN ORAL Mild Pain/Temp > 100.5 03/20/19 22:45 04/19/19 22:44 Albuterol Sulfate (Proventil MDI) 2 puff Q3H PRN INH Shortness of Breath 03/20/19 22:45 04/19/19 22:44 Aspirin (ASA) 81 mg DAILY ORAL 03/21/19 09:00 04/20/19 08:59 03/23/19 09:59 Chlorhexidine Gluconate (Jihan-Hex 2%) 1 applic DAILY@1999 TOPIC 03/21/19 20:00 04/20/19 19:59 03/23/19 20:44 Diphenhydramine HCl (Benadryl) 25 mg Q3H PRN IVP Itching 03/20/19 22:45 04/19/19 22:44 03/23/19 20:54 Folic Acid (Folate) 1 mg DAILY ORAL 03/21/19 09:00 04/20/19 08:59 03/23/19 09:59 Hydromorphone HCl (Dilaudid) 1 mg Q3H PRN IVP Moderate Pain (Pain Scale 4-6) 03/20/19 22:45 03/27/19 22:44 Hydromorphone HCl (Dilaudid) 2 mg Q3H IVP 03/23/19 20:00 03/30/19 19:59 03/23/19 20:44 Hydroxyurea (Hydrea) 500 mg TWICE A DAY ORAL 03/21/19 09:00 03/26/19 08:59 03/23/19 17:30 Levofloxacin (Levaquin) 500 mg DAILY ORAL 03/23/19 17:00 03/26/19 12:00 03/23/19 17:11 Oxycodone HCl (OxyCONTIN) 20 mg Q12HR ORAL 03/21/19 09:00 03/28/19 08:59 03/23/19 20:48 Salmeterol Xinafoate/ Fluticasone (Advair 250/50 Diskus) 1 puffs EVERY 12 HOURS INH 03/21/19 09:00 04/20/19 08:59 03/23/19 21:42 Sodium Chloride 1,000 ml @ 125 mls/hr Q8H IV 03/22/19 12:00 04/21/19 11:59 03/23/19 20:45 Allergies: Coded Allergies: CAPSAICIN (Verified Allergy, Unknown, 11/23/18) CEFTRIAXONE (Verified Allergy, Unknown, 11/23/18) IOPAMIDOL (Unverified Allergy, Unknown, 01/01/19) Uncoded Allergies: IV CONTRAST (Allergy, Unknown, 01/01/19) CONTRAST (Adverse Reaction, Severe, Rash, 06/23/16) RADIOCONTRAST - RASH, ITCHING Subjective Awake, alert, responsive, complaining less chest wall pain, decreased shortness of breath, low grade temp, Hgb: 9.7. Objective Last Vital Signs Date Time Temp Pulse Resp B/P (MAP) Pulse Ox O2 Delivery O2 Flow Rate FiO2 03/23/19 21:42 68 18 95 Nasal Cannula 2.0 28 03/23/19 21:18 99.7 03/23/19 20:00 125/67 (86) Laboratory Tests Test 03/23/19 04:45 White Blood Count 13.6 K/UL (4.8-10.8) H Red Blood Count 3.66 M/UL (4.70-6.10) L Hemoglobin 9.7 G/DL (14.2-18.0) L Hematocrit 29.8 % (42.0-52.0) L Mean Corpuscular Volume 81 FL (80-99) Mean Corpuscular Hemoglobin 26.4 PG (27.0-31.0) L Mean Corpuscular Hemoglobin Concent 32.5 G/DL (32.0-36.0) Red Cell Distribution Width 15.7 % (11.6-14.8) H Platelet Count 466 K/UL (150-450) H Mean Platelet Volume 6.6 FL (6.5-10.1) Neutrophils (%) (Auto) 60.3 % (45.0-75.0) Lymphocytes (%) (Auto) 28.9 % (20.0-45.0) Monocytes (%) (Auto) 8.7 % (1.0-10.0) Eosinophils (%) (Auto) 1.2 % (0.0-3.0) Basophils (%) (Auto) 0.9 % (0.0-2.0) Erythrocyte Sedimentation Rate 19 MM/HR (0-15) H Reticulocyte Count 9.6 % (0.5-2.0) H Sodium Level 136 MMOL/L (136-145) Potassium Level 4.0 MMOL/L (3.5-5.1) Chloride Level 101 MMOL/L (98-107) Carbon Dioxide Level 25 MMOL/L (21-32) Anion Gap 10 mmol/L (5-15) Blood Urea Nitrogen 8 mg/dL (7-18) Creatinine 0.6 MG/DL (0.55-1.30) Estimat Glomerular Filtration Rate > 60 mL/min (>60) Glucose Level 88 MG/DL (74-106) Calcium Level 9.1 MG/DL (8.5-10.1) Phosphorus Level 4.0 MG/DL (2.5-4.9) Magnesium Level 2.0 MG/DL (1.8-2.4) Total Bilirubin 1.2 MG/DL (0.2-1.0) H Direct Bilirubin 0.3 MG/DL (0.0-0.3) Aspartate Amino Transf (AST/SGOT) 44 U/L (15-37) H Alanine Aminotransferase (ALT/SGPT) 61 U/L (12-78) Alkaline Phosphatase 99 U/L (46-116) Lactate Dehydrogenase 267 U/L (81-234) H Total Protein 8.1 G/DL (6.4-8.2) Albumin 3.6 G/DL (3.4-5.0) Globulin 4.5 g/dL Albumin/Globulin Ratio 0.8 (1.0-2.7) L Microbiology Date/Time Source Procedure Growth Status 03/20/19 23:50 Blood Blood Culture - Preliminary NO GROWTH AFTER 48 HOURS Resulted 03/21/19 15:45 Urine,Clean Catch Urine Culture - Preliminary NO GROWTH AFTER 24 HOURS Resulted Intake and Output 03/22/19 03/23/19 19:00 07:00 Intake Total 1110 ml 520 ml Output Total 400 ml 750 ml Balance 710 ml -230 ml Intake Oral 960 ml 520 ml IV Total 150 ml Output Urine Total 400 ml 750 ml # Voids 1 3 Objective General: No acute distress, awake and alert HEENT: NCAT, sclera anicteric, PERRL, EOMI. Neck: Supple, no significant jugular venous distention, Lungs: Good inspiratory effort, no accessory muscle use, clear to auscultation bilaterally, no Wheeze or Rales. CHEST WALL: PassPort on right side of chest wall intact no sign of infection. Heart: Regular rate and rhythm, normal S1/S2, no murmurs, Abdomen: soft, nontender, nondistended. Normoactive bowel sounds, morbid obesity / Rectal: Refused and deferred. Extremities: No Cyanosis , clubbing or edema. Neuro: A&O x 3, Able to move all extremities Skin: warm, no rash. Psych: Normal mood and affect Assessment/Plan Assessment/Plan 1. Giles fever. 2. Generalized pain. 3. Probable sickle cell crisis. 4. Sickle cell disease. 5. Asthma. 6. Avascular necrosis of the left hip. TREATMENT: 1. Sickle cell crisis/generalized pain/fatigue. A Hematology-Oncology consultation has been obtained with Dr. Kerline Davenport. We will follow recommendations of Hematology. The patient has been started on intravenous fluids. Dilaudid will be used intravenously for pain control. 2. Sickle cell disease. As above, a Hematology-Oncology consultation is pending. 3. Asthma. Continue Advair as above. 4. Avascular necrosis of left hip. Antibiotics: Levaquin IV hydration at 125 cc/hr Will monitor laboratory as well as culture (so far no growth) CODE STATUS full code DVT prophylaxis heparin subcu. Jersey Bearden MD Mar 23, 2019 23:30
[2019-03-24] VITALS: BP 123/85
[2019-03-24] MEDS: DiphenhydrAMINE 50mg/ml Inj IVP PRN ×6 (02:25→21:05)
[2019-03-24 04:00] VITALS: BP 127/81
--- NOTE | 2019-03-24 07:21 | NUR ---
HAND-OFF: Report given to YAMEL SORENSEN WITH STABLE CONDITION.
--- NOTE | 2019-03-24 07:30 | NUR ---
NURSE NOTES: pt in bed in low position, call light at bedside, pt makes needs known, pt has bathroom privileges, pt reports pain level of 5 with medication given at 0500 and due around the clock Q3hr, central line in place portocath right chest 1/2NS at 125hr, pt ambulates with steady gait, no s/s of distress or sob noted.
[2019-03-24 08:04] VITALS: BP 132/66
[2019-03-24] MEDS: Levofloxacin 500mg tab ORAL SCH (08:37)
[2019-03-24] MEDS: Hydroxyurea 500mg cap ORAL SCH ×2 (08:37→17:33)
[2019-03-24] MEDS: oxyCONTIN 20mg tab ORAL SCH ×2 (08:38→21:57)
[2019-03-24] MEDS: Aspirin Baby 81mg ORAL SCH (08:39)
[2019-03-24] MEDS: Wixela 250/50 Inhaler - 60 dose INH SCH ×2 (09:04→19:33)
[2019-03-24 12:00] VITALS: BP 132/61
--- NOTE | 2019-03-24 15:11 | Cardiology Report ---
APPROVED REPORT EKG Measurement Heart [id number] Normal sinus rhythm with sinus arrhythmia Normal ECG
[2019-03-24 16:00] VITALS: BP 121/72
[2019-03-24] MEDS ORDERED: 1/2 NS 1000ml IV ONE (17:00)
[2019-03-24] MEDS: Docusate 100mg tablet ORAL SCH (17:32)
--- NOTE | 2019-03-24 19:15 | NUR ---
HAND-OFF: Report given to Klaus Giles.
--- NOTE | 2019-03-24 19:40 | NUR ---
NURSE NOTES: Received patient awake,alert,verbal,resting in bed.
[2019-03-24 20:14] VITALS: BP 131/72
[2019-03-24] MEDS: Dyna-Hex 2% Top Sol 2oz TOPIC SCH (21:04)
--- NOTE | 2019-03-24 22:08 | Internal Med Progress Note ---
Subjective Physician Name Jersey Bearden Attending Physician Jersey Bearden MD Current Medications Medications (Trade) Dose Ordered Sig/Arianne Route PRN Reason Start Time Stop Time Status Last Admin Dose Admin Acetaminophen (Tylenol) 650 mg Q6H PRN ORAL Mild Pain/Temp > 100.5 03/20/19 22:45 04/19/19 22:44 Albuterol Sulfate (Proventil MDI) 2 puff Q3H PRN INH Shortness of Breath 03/20/19 22:45 04/19/19 22:44 Aspirin (ASA) 81 mg DAILY ORAL 03/21/19 09:00 04/20/19 08:59 03/24/19 08:39 Chlorhexidine Gluconate (Jihan-Hex 2%) 1 applic DAILY@2000 TOPIC 03/21/19 20:00 04/20/19 19:59 03/24/19 21:04 Diphenhydramine HCl (Benadryl) 25 mg Q3H PRN IVP Itching 03/20/19 22:45 04/19/19 22:44 03/24/19 21:05 Docusate Sodium (Colace) 100 mg BID ORAL 03/24/19 18:00 04/23/19 17:59 03/24/19 17:32 Folic Acid (Folate) 1 mg DAILY ORAL 03/21/19 09:00 04/20/19 08:59 03/24/19 08:37 Hydromorphone HCl (Dilaudid) 1 mg Q3H PRN IVP Moderate Pain (Pain Scale 4-6) 03/20/19 22:45 03/27/19 22:44 03/24/19 11:00 Hydromorphone HCl (Dilaudid) 2 mg Q3H IVP 03/23/19 20:00 03/30/19 19:59 03/24/19 21:05 Hydroxyurea (Hydrea) 500 mg TWICE A DAY ORAL 03/21/19 09:00 03/26/19 08:59 03/24/19 17:33 Levofloxacin (Levaquin) 500 mg DAILY ORAL 03/23/19 17:00 03/26/19 12:00 03/24/19 08:37 Oxycodone HCl (OxyCONTIN) 20 mg Q12HR ORAL 03/21/19 09:00 03/28/19 08:59 03/24/19 21:57 Salmeterol Xinafoate/ Fluticasone (Advair 250/50 Diskus) 1 puffs EVERY 12 HOURS INH 03/21/19 09:00 04/20/19 08:59 03/24/19 19:33 Sodium Chloride 1,000 ml @ 125 mls/hr Q8H IV 03/22/19 12:00 04/21/19 11:59 03/24/19 21:04 Allergies: Coded Allergies: CAPSAICIN (Verified Allergy, Unknown, 11/23/18) CEFTRIAXONE (Verified Allergy, Unknown, 11/23/18) IOPAMIDOL (Unverified Allergy, Unknown, 01/01/19) Uncoded Allergies: IV CONTRAST (Allergy, Unknown, 01/01/19) CONTRAST (Adverse Reaction, Severe, Rash, 06/23/16) RADIOCONTRAST - RASH, ITCHING Subjective Awake, alert, responsive, complaining less chest wall pain, decreased shortness of breath. Watching TV. Objective Last Vital Signs Date Time Temp Pulse Resp B/P (MAP) Pulse Ox O2 Delivery O2 Flow Rate FiO2 03/24/19 21:32 99.2 03/24/19 20:26 Nasal Cannula 2.0 03/24/19 20:14 82 18 131/72 (91) 100 03/24/19 19:35 21 Intake and Output 03/23/19 03/24/19 18:59 06:59 Intake Total 1775 ml 1400 ml Output Total 2900 ml 900 ml Balance -1125 ml 500 ml Intake Oral 400 ml 400 ml IV Total 1375 ml 1000 ml Output Urine Total 2900 ml 900 ml # Voids 3 Objective General: No acute distress, awake and alert HEENT: NCAT, sclera anicteric, PERRL, EOMI. Neck: Supple, no significant jugular venous distention, Lungs: Good inspiratory effort, no accessory muscle use, clear to auscultation bilaterally, no Wheeze or Rales. CHEST WALL: Passport on right side of chest wall intact no sign of infection. Heart: Regular rate and rhythm, normal S1/S2, no murmurs, Abdomen: soft, nontender, nondistended. Normoactive bowel sounds, morbid obesity / Rectal: Refused and deferred. Extremities: No Cyanosis , clubbing or edema. Neuro: A&O x 3, Able to move all extremities Skin: warm, no rash. Psych: Normal mood and affect Assessment/Plan Assessment/Plan 1. Giles fever. 2. Generalized pain. 3. Probable sickle cell crisis. 4. Sickle cell disease. 5. Asthma. 6. Avascular necrosis of the left hip. TREATMENT: 1. Sickle cell crisis/generalized pain/fatigue. A Hematology-Oncology consultation has been obtained with Dr. Kerline Davenport. We will follow recommendations of Hematology. The patient has been started on intravenous fluids. Dilaudid will be used intravenously for pain control. 2. Sickle cell disease. As above, a Hematology-Oncology consultation is pending. 3. Asthma. Continue Advair as above. 4. Avascular necrosis of left hip. Antibiotics: DC Levaquin IV hydration at 75 cc/hr Will monitor laboratory as well as culture (so far no growth) CODE STATUS full code DVT prophylaxis heparin subcu. DC Home in Jersey Bearden MD Mar 24, 2019 22:08
[2019-03-25] MEDS: DiphenhydrAMINE 50mg/ml Inj IVP PRN ×5 (00:05→12:22)
[2019-03-25 04:00] VITALS: BP 116/70
[2019-03-25 06:39] LABS: BASOPHILS % (AUTO) 1.1 % (0.0-2.0); EOSINOPHILS % (AUTO) 1.2 % (0.0-3.0); HEMOGLOBIN 9.4 G/DL (14.2-18.0); LYMPHOCYTES % (AUTO) 35.1 % (20.0-45.0); MEAN CORPUSCULAR VOLUME 80 FL (80-99); NEUTROPHILS % (AUTO) 55.6 % (45.0-75.0); PLATELET COUNT 468 K/UL (150-450); RED BLOOD COUNT 3.61 M/UL (4.70-6.10); RED CELL DISTRIBUTION WIDTH 15.6 % (11.6-14.8); WHITE BLOOD COUNT 11.4 K/UL (4.8-10.8)
[2019-03-25 06:49] LABS: ALANINE AMINOTRANSFERASE 57 U/L (12-78); ALBUMIN 3.5 G/DL (3.4-5.0); ALBUMIN/GLOBULIN RATIO 0.8 (1.0-2.7); ALKALINE PHOSPHATASE 90 U/L (46-116); ANION GAP 7 mmol/L (5-15); ASPARTATE AMINO TRANSFERASE 32 U/L (15-37); BLOOD UREA NITROGEN 4 mg/dL (7-18); CALCIUM 8.8 MG/DL (8.5-10.1); CARBON DIOXIDE 29 MMOL/L (21-32); CHLORIDE 103 MMOL/L (98-107); CREATININE 0.6 MG/DL (0.55-1.30); PHOSPHORUS 3.3 MG/DL (2.5-4.9); POTASSIUM 3.4 MMOL/L (3.5-5.1); SODIUM 139 MMOL/L (136-145)
--- NOTE | 2019-03-25 07:27 | NUR ---
HAND-OFF: Report given to Elvie Dorsey RN.
--- NOTE | 2019-03-25 07:30 | NUR ---
NURSE NOTES: received patient in bed, asleep @ this time. Breathing is even and unlabored. Bed is in lowest position and locked. Call light within reach. will continue plan of care.
[2019-03-25 08:00] VITALS: BP 133/71
[2019-03-25] MEDS: Wixela 250/50 Inhaler - 60 dose INH SCH (09:02)
[2019-03-25] MEDS: Aspirin Baby 81mg ORAL SCH (09:11)
[2019-03-25] MEDS: Docusate 100mg tablet ORAL SCH (09:12)
[2019-03-25] MEDS: Hydroxyurea 500mg cap ORAL SCH (09:12)
[2019-03-25] MEDS: oxyCONTIN 20mg tab ORAL SCH (10:16)
--- NOTE | 2019-03-25 10:44 | NUR ---
NURSE NOTES: Received discharge order from Dr. Bearden on the phone. d/c home with home meds ,patient to follow up with Dr. Davenport. Patient needs taxi voucher. Will follow up.
[2019-03-25] MEDS ORDERED: Heplock Flush 100 units/ml 3 ml syr INJ ONE (12:00)
[2019-03-25] MEDS ORDERED: Heplock Flush 100 units/ml 3 ml syr INJ SCH (13:45)
--- NOTE | 2019-03-25 14:05 | NUR ---
NURSE NOTES: Patient was discharged to home via [facility] cab #[id number] in stable condition. Prior to discharge, patient's vital sign was stable. all belongings accounted for. No missing items. Port a cath needle was removed properly after heparin flush. No s/s of infection or bleeding on removal site. covered with gauze and tape. Discharge instruction given to the patient and patient will follow up with Dr. Davenport. Skin intact. ID was removed. Staff escorted the patient to the cab.
--- NOTE | 2019-03-25 14:50 | Internal Med Progress Note ---
Subjective Physician Name Jersey Bearden Attending Physician Jersey Bearden MD Allergies: Coded Allergies: CAPSAICIN (Verified Allergy, Unknown, 11/23/18) CEFTRIAXONE (Verified Allergy, Unknown, 11/23/18) IOPAMIDOL (Unverified Allergy, Unknown, 01/01/19) Uncoded Allergies: IV CONTRAST (Allergy, Unknown, 01/01/19) CONTRAST (Adverse Reaction, Severe, Rash, 06/23/16) RADIOCONTRAST - RASH, ITCHING Subjective Awake, alert, responsive, complaining less chest wall pain, decreased shortness of breath. Objective Last Vital Signs Date Time Temp Pulse Resp B/P (MAP) Pulse Ox O2 Delivery O2 Flow Rate FiO2 03/25/19 09:03 Nasal Cannula 2.0 28 03/25/19 08:00 98.5 63 20 133/71 (91) 97 Laboratory Tests Test 03/25/19 06:00 White Blood Count 11.4 K/UL (4.8-10.8) H Red Blood Count 3.61 M/UL (4.70-6.10) L Hemoglobin 9.4 G/DL (14.2-18.0) L Hematocrit 29.0 % (42.0-52.0) L Mean Corpuscular Volume 80 FL (80-99) Mean Corpuscular Hemoglobin 25.9 PG (27.0-31.0) L Mean Corpuscular Hemoglobin Concent 32.3 G/DL (32.0-36.0) Red Cell Distribution Width 15.6 % (11.6-14.8) H Platelet Count 468 K/UL (150-450) H Mean Platelet Volume 6.9 FL (6.5-10.1) Neutrophils (%) (Auto) 55.6 % (45.0-75.0) Lymphocytes (%) (Auto) 35.1 % (20.0-45.0) Monocytes (%) (Auto) 7.0 % (1.0-10.0) Eosinophils (%) (Auto) 1.2 % (0.0-3.0) Basophils (%) (Auto) 1.1 % (0.0-2.0) Sodium Level 139 MMOL/L (136-145) Potassium Level 3.4 MMOL/L (3.5-5.1) L Chloride Level 103 MMOL/L (98-107) Carbon Dioxide Level 29 MMOL/L (21-32) Anion Gap 7 mmol/L (5-15) Blood Urea Nitrogen 4 mg/dL (7-18) L Creatinine 0.6 MG/DL (0.55-1.30) Estimat Glomerular Filtration Rate > 60 mL/min (>60) Glucose Level 139 MG/DL (74-106) H Calcium Level 8.8 MG/DL (8.5-10.1) Phosphorus Level 3.3 MG/DL (2.5-4.9) Magnesium Level 1.9 MG/DL (1.8-2.4) Total Bilirubin 1.0 MG/DL (0.2-1.0) Aspartate Amino Transf (AST/SGOT) 32 U/L (15-37) Alanine Aminotransferase (ALT/SGPT) 57 U/L (12-78) Alkaline Phosphatase 90 U/L (46-116) Total Protein 7.7 G/DL (6.4-8.2) Albumin 3.5 G/DL (3.4-5.0) Globulin 4.2 g/dL Albumin/Globulin Ratio 0.8 (1.0-2.7) L Intake and Output 03/24/19 03/25/19 19:00 07:00 Intake Total 725 ml 1055 ml Output Total 700 ml Balance 25 ml 1055 ml Intake Oral 600 ml 680 ml IV Total 125 ml 375 ml Output Urine Total 700 ml # Voids 2 3 Objective General: No acute distress, awake and alert HEENT: NCAT, sclera anicteric, PERRL, EOMI. Neck: Supple, no significant jugular venous distention, Lungs: Good inspiratory effort, no accessory muscle use, clear to auscultation bilaterally, no Wheeze or Rales. CHEST WALL: Passport on right side of chest wall intact no sign of infection. Heart: Regular rate and rhythm, normal S1/S2, no murmurs, Abdomen: soft, nontender, nondistended. Normoactive bowel sounds, morbid obesity / Rectal: Refused and deferred. Extremities: No Cyanosis , clubbing or edema. Neuro: A&O x 3, Able to move all extremities Skin: warm, no rash. Psych: Normal mood and affect Assessment/Plan Assessment/Plan 1. Giles fever. 2. Generalized pain. 3. Probable sickle cell crisis. 4. Sickle cell disease. 5. Asthma. 6. Avascular necrosis of the left hip. TREATMENT: 1. Sickle cell crisis/generalized pain/fatigue. A Hematology-Oncology consultation has been obtained with Dr. Kerline Davenport. We will follow recommendations of Hematology. The patient has been started on intravenous fluids. Dilaudid will be used intravenously for pain control. 2. Sickle cell disease. As above, a Hematology-Oncology consultation is pending. 3. Asthma. Continue Advair as above. 4. Avascular necrosis of left hip. Antibiotics: off IV hydration at 75 cc/hr Will monitor laboratory as well as culture (so far no growth) CODE STATUS full code DVT prophylaxis heparin subcu. DC Home today Jersey Bearden MD Mar 25, 2019 14:50
--- NOTE | 2019-03-26 12:32 | Discharge Summary ---
Discharge Summary Discharge Summary _ DATE OF ADMISSION: 03/20/2019 DATE OF DISCHARGE: 03/25/2019 DISCHARGED BY: Dr. Bearden REASON FOR ADMISSION: 23 years old male with past medical history of sickle cell disease, asthma, presented to emergency department with complaints of bilateral knee pain and chest pain. He denied fever and chills. Patient follows up with Dr. Davenport/sanding line operator as outpatient. Upon evaluation pulse oximetry was stable on room air , patient was afebrile. Laboratory work-up revealed leukocytosis WBC 15.4, hemoglobin 10.9, hematocrit 34.4, platelets 562. Reticulocyte count 11.2%. Stable electrolytes and renal parameters. Glucose 123. Troponin negative. EKG revealed sinus rhythm, no acute ischemic changes. No PVC no ectopy. AST 57, ALT 73 , total bili 1.5, direct bili 0.4. Albumin 3.8. Chest x-ray revealed no acute cardiopulmonary pathology. Patient started on IV fluids , medicated for pain and admitted to medical surgical floor for further management. CONSULTANTS: pulmonary/critical care Dr. Caicedo [facility] COURSE: Patient admitted to medical surgical floor. Patient was on generous IV hydration. Hydroxyurea continued along with folic acid. Supplemental oxygen titrated as needed to keep pulse oximetry above 92%. Bronchodilator therapy via handheld nebulizing provided as needed. Advair continued. Pain management was addressed, and pain was controlled. DVT prophylaxis provided. Hemoglobin and hematocrit remained stable ; prior to discharge hemoglobin 9.4 , hematocrit 29. Reticulocyte count trended down from 11.2 initially down to 9.6. LFT, bilirubin trending down . LDH 267. Urine culture and blood culture were negative. Leukocytosis trended down, intermittent low grade fevers resolved. Patient was stable for discharge home . Outpatient follow-up with sanding line operator within a week. FINAL DIAGNOSES: Sickle cell crisis/generalized pain/fatigue Sickle cell disease Asthma Avascular necrosis of left hip DISCHARGE MEDICATIONS: See Medication Reconciliation list. DISCHARGE INSTRUCTIONS: Patient was discharged home . Follow up with Dr Davenport/sanding line operator within a week. I have been assigned to dictate discharge summary for this account. I was not involved in the patient's management. Giovanna Montalvo NP Mar 26, 2019 12:32
== END 2019-03-25 14:10 | disposition home or self-care (01) | DRG 662 ==
LOC: EMR 18:05 → 3E 20:33 → EDBEDREQ 21:13
DX: D57.00 Hb-SS disease with crisis, unspecified (principal); M87.852 Other osteonecrosis, left femur; Z88.1 Allergy status to other antibiotic agents; Z88.8 Allergy status to other drugs, medicaments and biological substances; Z90.81 Acquired absence of spleen; Z79.82 Long term (current) use of aspirin; J45.909 Unspecified asthma, uncomplicated
CPT/HCPCS: 36415; 71045; 80053; 82248; 83615; 83735; 84100; 84484; 85007; 85025; 85044; 85651; 87040; 87086; 93005; 94640; 96361; 96374; 96376; 99285

== ENCOUNTER 2019-05-01 18:12 | Inpatient (IN) | payer MEDICAID ==
[~2019-05-01] VITALS: Ht 167.6 cm; Wt 112.7 kg
[~2019-05-01 18:12] MED LIST changes: +ALBUTEROL SULF8.5 GM INH
[2019-05-01 18:25] VITALS: BP 129/101
--- NOTE | 2019-05-01 18:25 | NUR ---
ED Nurse Note: Patient brought in the Ed via gurney due to patient having a syncopal episode outside of registration, patient states that "i suddenly saw glitters" patient is diaphoretic, blood sguar of 135, notified, patient presents with a port-a-cath located on his right upper chest, and is complaining of generalized body pain. paient is alert and oriented x3 by the time he got into his room, syncopal episode, patient fell from gruond level, no head trauma noted. labs sent down, will continue to monitor
--- NOTE | 2019-05-01 18:42 | Emergency Room Report ---
History of Present Illness General Chief Complaint: Syncope Source: Patient Present Illness HPI Sickle cell/beta thalassemia. Chest pain and leg pain for 4 days. No cough, no infection. Syncopal episode with blurred vision, seeing spots, tunnel vision and then collapsed. Complaining of right-sided head pain. Denies neck pain. Has a port because he is a hard stick. Allergies: Coded Allergies: CAPSAICIN (Verified Allergy, Unknown, 11/23/18) CEFTRIAXONE (Verified Allergy, Unknown, 11/23/18) IOPAMIDOL (Unverified Allergy, Unknown, 01/01/19) Uncoded Allergies: IV CONTRAST (Allergy, Unknown, 01/01/19) CONTRAST (Adverse Reaction, Severe, Rash, 06/23/16) RADIOCONTRAST - RASH, ITCHING Nursing Documentation-[facility] Past Medical History: No History, Except For Hx Pacemaker: No Hx Asthma: Yes Hx COPD: No Hx Diabetes: No Hx Cancer: No Hx Gastrointestinal Problems: No Hx Dialysis: No Hx Neurological Problems: No Hx Cerebrovascular Accident: No Hx Seizures: No Physical Exam Vital Signs Date Time Temp Pulse Resp B/P (MAP) Pulse Ox O2 Delivery O2 Flow Rate FiO2 05/01/19 18:18 98.4 73 20 129/101 (110) 98 Room Air Port access in right chest wall Medical Decision Making Diagnostic Impression: Primary Impression: Sickle cell crisis Additional Impression: Syncope ER Course 23-year-old male with history of sickle cell/beta thalassemia presents for evaluation of 4 days chest pain and leg pain consistent with a sickle cell pain crisis as well as a syncopal episode here in the emergency department. Patient is now awake, alert and has a nonfocal exam. Concern for intracranial injury from his fall. Will obtain a CT scan of the head, labs including reticulocyte count and type and screen in case he needs a transfusion. We will start IV fluids and pain medication. He may require admission depending on labs and clinical improvement. Laboratory Tests Test 05/01/19 18:30 White Blood Count 16.6 K/UL (4.8-10.8) H Red Blood Count 4.17 M/UL (4.70-6.10) L Hemoglobin 10.7 G/DL (14.2-18.0) L Hematocrit 35.4 % (42.0-52.0) L Mean Corpuscular Volume 85 FL (80-99) Mean Corpuscular Hemoglobin 25.6 PG (27.0-31.0) L Mean Corpuscular Hemoglobin Concent 30.2 G/DL (32.0-36.0) L Red Cell Distribution Width 17.2 % (11.6-14.8) H Platelet Count 360 K/UL (150-450) Mean Platelet Volume 6.0 FL (6.5-10.1) L Neutrophils (%) (Auto) % (45.0-75.0) Lymphocytes (%) (Auto) % (20.0-45.0) Monocytes (%) (Auto) % (1.0-10.0) Eosinophils (%) (Auto) % (0.0-3.0) Basophils (%) (Auto) % (0.0-2.0) Differential Total Cells Counted 100 Neutrophils % (Manual) 76 % (45-75) H Lymphocytes % (Manual) 15 % (20-45) L Monocytes % (Manual) 4 % (1-10) Eosinophils % (Manual) 0 % (0-3) Basophils % (Manual) 0 % (0-2) Band Neutrophils 5 % (0-8) Nucleated Red Blood Cells 42 /100 WBC Platelet Estimate Adequate Platelet Morphology Normal Polychromasia 2+ Hypochromasia 1+ Basophilic Stippling 1+ Anisocytosis 2+ Target Cells 1+ Reticulocyte Count 11.0 % (0.5-2.0) H Sodium Level 139 MMOL/L (136-145) Potassium Level 4.0 MMOL/L (3.5-5.1) Chloride Level 103 MMOL/L (98-107) Carbon Dioxide Level 26 MMOL/L (21-32) Anion Gap 10 mmol/L (5-15) Blood Urea Nitrogen 5 mg/dL (7-18) L Creatinine 0.5 MG/DL (0.55-1.30) L Estimate Glomerular Filtration Rate > 60 mL/min (>60) Glucose Level 126 MG/DL (74-106) H Calcium Level 9.7 MG/DL (8.5-10.1) Total Bilirubin 1.8 MG/DL (0.2-1.0) H Direct Bilirubin 0.4 MG/DL (0.0-0.3) H Aspartate Amino Transferase (AST) 48 U/L (15-37) H Alanine Aminotransferase (ALT) 56 U/L (12-78) Alkaline Phosphatase 123 U/L (46-116) H Total Creatine Kinase 37 U/L (26-308) Creatine Kinase MB < 0.5 NG/ML (0.0-3.6) Creatine Kinase MB Relative Index 1.3 Troponin I 0.000 ng/mL (0.000-0.056) Total Protein 8.9 G/DL (6.4-8.2) H Albumin 4.4 G/DL (3.4-5.0) Globulin 4.5 g/dL Albumin/Globulin Ratio 1.0 (1.0-2.7) EKG Diagnostic Results EKG Time: 18:20 Rate: normal Rhythm: NSR ST Segments: no acute changes Other Impression Sinus rhythm, normal axis, normal intervals, no acute ischemic changes Rhythm Strip Diag. Results Rhythm Strip Time: 18:20 EP Interpretation: yes Rate: 60s Rhythm: NSR, no PVC's, no ectopy Chest X-Ray Diagnostic Results Chest X-Ray Diagnostic Results : # of Views/Limited/Complete: 1 View Indication: Chest Pain EP Interpretation: Yes Interpretation: no consolidation, no effusion, no pneumothorax, no acute cardiopulmonary disease Impression: No acute disease Electronically Signed by: Electronically signed by Dr. Jamir Yousif CT/MRI/US Diagnostic Results CT/MRI/US Diagnostic Results : Impression Preliminary Findings Only See Final Report For Complete Findings CT HEAD Without Contrast: No ICH, mass effect or edema. No skull fracture. Radiologist: Adi Le MD Reevaluation Time: 21:05 Last Vital Signs Date Time Temp Pulse Resp B/P (MAP) Pulse Ox O2 Delivery O2 Flow Rate FiO2 05/01/19 18:18 98.4 73 20 129/101 (110) 98 Room Air Status: unchanged Reevaluation Impression CT scan of the head did not show any dense of acute intercranial injury. Labs show baseline anemia with no indication for transfusion. Reticulocyte count is elevated 11. Patient continues to complain of significant pain in the chest and hips as well as headache. No evidence of pulmonary infiltrate to suggest acute chest crisis. Continue IV fluids and pain medication. Will require admission for sickle cell pain crisis and syncope work-up Disposition: ADMITTED INPATIENT Condition: Serious Jamir Yousif MD May 01, 2019 18:42
[2019-05-01] MEDS ORDERED: HYDROmorphone 1mg/ml Carpuject IVP ONE ×4 (18:45→23:00)
[2019-05-01 18:52] LABS: HEMATOCRIT 35.4 % (42.0-52.0); HEMOGLOBIN 10.7 G/DL (14.2-18.0); MEAN CORPUSCULAR VOLUME 85 FL (80-99); PLATELET COUNT 360 K/UL (150-450); RED BLOOD COUNT 4.17 M/UL (4.70-6.10); RED CELL DISTRIBUTION WIDTH 17.2 % (11.6-14.8); WHITE BLOOD COUNT 16.6 K/UL (4.8-10.8)
[2019-05-01 19:13] LABS: ANION GAP 10 mmol/L (5-15); BLOOD UREA NITROGEN 5 mg/dL (7-18); CALCIUM 9.7 MG/DL (8.5-10.1); CARBON DIOXIDE 26 MMOL/L (21-32); CHLORIDE 103 MMOL/L (98-107); CREATININE 0.5 MG/DL (0.55-1.30); SODIUM 139 MMOL/L (136-145)
[2019-05-01 19:28] LABS: ALANINE AMINOTRANSFERASE 56 U/L (12-78); ALBUMIN 4.4 G/DL (3.4-5.0); ALKALINE PHOSPHATASE 123 U/L (46-116); ASPARTATE AMINO TRANSFERASE 48 U/L (15-37); BILIRUBIN,TOTAL 1.8 MG/DL (0.2-1.0); CKMB < 0.5 NG/ML (0.0-3.6); CREATINE KINASE 37 U/L (26-308)
[2019-05-01 19:33] LABS: BILIRUBIN,DIRECT 0.4 MG/DL (0.0-0.3)
--- NOTE | 2019-05-01 20:10 | Diagnostic Imaging Report ---
Indications: Headache Technique: Spiral acquisitions obtained through the brain. Angled axial and coronal 5 x 5 mm slices were reconstructed. Total dose length product 1054 mGycm. CTDI vol(s) 38 mGy. Dose reduction achieved using automated exposure control Comparison: None. Findings: No acute intracranial hemorrhage or edema, mass effect, nor midline shift. Normal size ventricles and extra axial CSF spaces. Normal murdock-white differentiation. Visualized orbits and sinuses are unremarkable. Intact calvarium. Impression: Negative This agrees with the preliminary interpretation provided overnight by [facility] teleradiology service. The CT scanner at [facility] is accredited by the [employer] and the scans are performed using protocols designed to limit radiation exposure to as low as reasonably achievable to attain images of sufficient resolution adequate for diagnostic evaluation.
--- NOTE | 2019-05-01 20:27 | NUR ---
ED Nurse Note: Patient still complains of pain, Received orders for dilaudid, will carry out
--- NOTE | 2019-05-01 21:37 | NUR ---
ED Nurse Note: Patient in bed, will continue to monitor
[2019-05-01 21:57] VITALS: BP 135/89
--- NOTE | 2019-05-01 23:00 | NUR ---
ED Nurse Note: Patietn still complains of pain, Dr. Yousif notified, waiting room assignment
[2019-05-01 23:25] VITALS: BP 111/79
[2019-05-01 23:32] VITALS: BP 138/83
--- NOTE | 2019-05-01 23:32 | NUR ---
TRANSFER TO FLOOR: Patient transferred to Med-Surg as ordered, per . Report given to EDU Martin
[2019-05-02] VITALS: BP 138/83
[2019-05-02] MEDS ORDERED: Albuterol/Ipratropium 3ml neb HHN PRN (00:15)
[2019-05-02] MEDS: D5 1/2NS 1,000 ML IV SCH ×3 (00:15→20:00)
--- NOTE | 2019-05-02 00:30 | NUR ---
NURSE NOTES: Received report from Trae in ER. Patient arrived by fady to the floor at 2332. Patient is awake and alert x4. Belongings checked with patient. Patient is on room air with no signs of distress or SOB. Patient c/o pain 9/10. Skin intact. Portacath in the right upper chest. Bed locked and in lowest position. Spoke with Dr. Bearden regarding admission orders. Orders received and will be carried out. VS: BP - 138/83 HR - 56 Temp - 99.7 02 - 98% RR - 20 Pain - 9/10
[2019-05-02] MEDS ORDERED: HYDROmorphone 1mg/ml Carpuject IVP PRN (00:45)
[2019-05-02 04:00] VITALS: BP 135/74
[2019-05-02 06:56] LABS: BASOPHILS % (AUTO) 1.4 % (0.0-2.0); HEMATOCRIT 29.3 % (42.0-52.0); LYMPHOCYTES % (AUTO) 24.3 % (20.0-45.0); MEAN CORPUSCULAR VOLUME 82 FL (80-99); MONOCYTES % (AUTO) 11.9 % (1.0-10.0); NEUTROPHILS % (AUTO) 61.4 % (45.0-75.0); PLATELET COUNT 303 K/UL (150-450); RED BLOOD COUNT 3.58 M/UL (4.70-6.10); WHITE BLOOD COUNT 11.9 K/UL (4.8-10.8)
--- NOTE | 2019-05-02 07:11 | NUR ---
HAND-OFF: Report given to EDU Stewart.
--- NOTE | 2019-05-02 07:13 | NUR ---
NURSE NOTES: Received pt in bed, AAO x 4. No c/o pain/distress at the moment, but asking for pain med to be q3h. Portacath noted and running D5 1/2 NS @ 100 ml/hr. Side rails x 2. Bed in the lowest, locked, and alarm on. Call light within reach. Will continue to monitor
[2019-05-02 07:24] LABS: ALANINE AMINOTRANSFERASE 47 U/L (12-78); ALBUMIN 3.6 G/DL (3.4-5.0); ALBUMIN/GLOBULIN RATIO 0.9 (1.0-2.7); ALKALINE PHOSPHATASE 98 U/L (46-116); ANION GAP 9 mmol/L (5-15); ASPARTATE AMINO TRANSFERASE 38 U/L (15-37); BILIRUBIN,TOTAL 1.4 MG/DL (0.2-1.0); BLOOD UREA NITROGEN 5 mg/dL (7-18); CALCIUM 8.7 MG/DL (8.5-10.1); CARBON DIOXIDE 26 MMOL/L (21-32); CHLORIDE 107 MMOL/L (98-107); CREATININE 0.6 MG/DL (0.55-1.30); PHOSPHORUS 3.7 MG/DL (2.5-4.9); POTASSIUM 3.9 MMOL/L (3.5-5.1); SODIUM 141 MMOL/L (136-145)
[2019-05-02 07:27] LABS: BILIRUBIN,DIRECT 0.3 MG/DL (0.0-0.3)
[2019-05-02 08:00] VITALS: BP 127/75
[2019-05-02] MEDS: Aspirin Baby 81mg ORAL SCH (09:13)
[2019-05-02] MEDS: Hydroxyurea 500mg cap ORAL SCH (09:13)
[2019-05-02] MEDS: Heparin 5000 units/ml inj SUBQ SCH ×2 (09:17→20:01)
[2019-05-02] MEDS: Wixela 250/50 Inhaler - 60 dose INH SCH ×2 (09:25→21:26)
[2019-05-02 12:00] VITALS: BP 138/76
--- NOTE | 2019-05-02 12:30 | Consultation ---
History of Present Illness General Date patient seen: May 02, 2019 Chief Complaint: Syncope Present Illness HPI 23 year old male with hx of Sickle cell/beta thalassemia presented to ER with CC of chest pain and leg pain for 4 days. Syncopal episode with blurred vision , seeing spots, tunnel vision and then collapsed. Complaining of right-sided head pain. A CT of head in ER was negative for any acute finding. Allergies: Coded Allergies: CAPSAICIN (Verified Allergy, Unknown, 11/23/18) CEFTRIAXONE (Verified Allergy, Unknown, 11/23/18) IOPAMIDOL (Unverified Allergy, Unknown, 01/01/19) Uncoded Allergies: IV CONTRAST (Allergy, Unknown, 01/01/19) CONTRAST (Adverse Reaction, Severe, Rash, 06/23/16) RADIOCONTRAST - RASH, ITCHING Medication History Scheduled Aspirin* (Aspirin*), 81 MG ORAL DAILY, (Reported) Fluticasone/Salmeterol (Advair 250-50 Diskus), 1 PUFF INH EVERY 12 HOURS, ( Reported) Folic Acid* (Folic Acid*), 1 MG ORAL DAILY, (Reported) Hydroxyurea (Hydroxyurea), 1,500 MG PO DAILY, (Reported) Oxycodone Hcl Er* (Oxycontin*), 20 MG ORAL EVERY 12 HOURS, (Reported) Scheduled PRN Albuterol Sulfate* (Albuterol Sulfate Mdi*), 2 PUFF INH Q4H PRN for Shortness of Breath, (Reported) Hydromorphone Hcl (Hydromorphone Hcl), 8 MG ORAL EVERY 3 HOURS PRN for Severe Pain (Pain Scale 7-10), (Reported) Patient History Healthcare decision maker Resuscitation status Full Code Advanced Directive on File Past Medical/Surgical History Past Medical/Surgical History: (1) Sickle cell disease (2) Anemia Review of Systems All Other Systems: negative except mentioned in HPI Physical Exam General Appearance: WD/WN Lines, tubes and drains: peripheral HEENT: normocephalic, atraumatic Neck: non-tender, supple Respiratory/Chest: chest wall non-tender, lungs clear Breasts: no masses Cardiovascular/Chest: normal peripheral pulses, normal rate Abdomen: normal bowel sounds, soft Genitourinary/Rectal: normal genital exam Extremities: normal range of motion Last 24 Hour Vital Signs Date Time Temp Pulse Resp B/P (MAP) Pulse Ox O2 Delivery O2 Flow Rate FiO2 05/02/19 12:00 99.4 56 14 138/76 (96) 97 05/02/19 09:00 Room Air 05/02/19 08:00 98.3 65 18 127/75 (92) 96 05/02/19 04:00 98.6 53 20 135/74 (94) 96 05/02/19 00:30 Room Air 05/02/19 00:00 99.7 56 20 138/83 (101) 98 05/01/19 23:32 99.7 56 20 138/83 (101) 98 05/01/19 23:30 99.2 65 20 115/80 98 Room Air 05/01/19 23:27 99.2 05/01/19 23:25 99.2 62 20 111/79 98 Room Air 05/01/19 22:10 99.2 05/01/19 21:57 98.4 63 20 135/89 98 Room Air 05/01/19 21:19 99.2 05/01/19 19:24 98.4 05/01/19 18:25 98.4 65 20 129/101 98 Room Air 05/01/19 18:18 98.4 73 20 129/101 (110) 98 Room Air Intake and Output 05/01/19 05/02/19 19:00 07:00 Intake Total 2500 ml Balance 2500 ml Intake IV Total 2500 ml # Voids 2 # Bowel Movements 2 Laboratory Tests Test 05/01/19 18:30 05/02/19 06:30 White Blood Count 16.6 K/UL (4.8-10.8) H 11.9 K/UL (4.8-10.8) H Red Blood Count 4.17 M/UL (4.70-6.10) L 3.58 M/UL (4.70-6.10) L Hemoglobin 10.7 G/DL (14.2-18.0) L 9.0 G/DL (14.2-18.0) L Hematocrit 35.4 % (42.0-52.0) L 29.3 % (42.0-52.0) L Mean Corpuscular Volume 85 FL (80-99) 82 FL (80-99) Mean Corpuscular Hemoglobin 25.6 PG (27.0-31.0) L 25.3 PG (27.0-31.0) L Mean Corpuscular Hemoglobin Concent 30.2 G/DL (32.0-36.0) L 30.9 G/DL (32.0-36.0) L Red Cell Distribution Width 17.2 % (11.6-14.8) H 18.0 % (11.6-14.8) H Platelet Count 360 K/UL (150-450) 303 K/UL (150-450) Mean Platelet Volume 6.0 FL (6.5-10.1) L 6.7 FL (6.5-10.1) Neutrophils (%) (Auto) % (45.0-75.0) 61.4 % (45.0-75.0) Lymphocytes (%) (Auto) % (20.0-45.0) 24.3 % (20.0-45.0) Monocytes (%) (Auto) % (1.0-10.0) 11.9 % (1.0-10.0) H Eosinophils (%) (Auto) % (0.0-3.0) 1.0 % (0.0-3.0) Basophils (%) (Auto) % (0.0-2.0) 1.4 % (0.0-2.0) Differential Total Cells Counted 100 Neutrophils % (Manual) 76 % (45-75) H Lymphocytes % (Manual) 15 % (20-45) L Monocytes % (Manual) 4 % (1-10) Eosinophils % (Manual) 0 % (0-3) Basophils % (Manual) 0 % (0-2) Band Neutrophils 5 % (0-8) Nucleated Red Blood Cells 42 /100 WBC Platelet Estimate Adequate Platelet Morphology Normal Polychromasia 2+ Hypochromasia 1+ Basophilic Stippling 1+ Anisocytosis 2+ Target Cells 1+ Reticulocyte Count 11.0 % (0.5-2.0) H Sodium Level 139 MMOL/L (136-145) 141 MMOL/L (136-145) Potassium Level 4.0 MMOL/L (3.5-5.1) 3.9 MMOL/L (3.5-5.1) Chloride Level 103 MMOL/L (98-107) 107 MMOL/L (98-107) Carbon Dioxide Level 26 MMOL/L (21-32) 26 MMOL/L (21-32) Anion Gap 10 mmol/L (5-15) 9 mmol/L (5-15) Blood Urea Nitrogen 5 mg/dL (7-18) L 5 mg/dL (7-18) L Creatinine 0.5 MG/DL (0.55-1.30) L 0.6 MG/DL (0.55-1.30) Estimat Glomerular Filtration Rate > 60 mL/min (>60) > 60 mL/min (>60) Glucose Level 126 MG/DL (74-106) H 102 MG/DL (74-106) Calcium Level 9.7 MG/DL (8.5-10.1) 8.7 MG/DL (8.5-10.1) Total Bilirubin 1.8 MG/DL (0.2-1.0) H 1.4 MG/DL (0.2-1.0) H Direct Bilirubin 0.4 MG/DL (0.0-0.3) H 0.3 MG/DL (0.0-0.3) Aspartate Amino Transf (AST/SGOT) 48 U/L (15-37) H 38 U/L (15-37) H Alanine Aminotransferase (ALT/SGPT) 56 U/L (12-78) 47 U/L (12-78) Alkaline Phosphatase 123 U/L (46-116) H 98 U/L (46-116) Total Creatine Kinase 37 U/L (26-308) Creatine Kinase MB < 0.5 NG/ML (0.0-3.6) Creatine Kinase MB Relative Index 1.3 Troponin I 0.000 ng/mL (0.000-0.056) Total Protein 8.9 G/DL (6.4-8.2) H 7.7 G/DL (6.4-8.2) Albumin 4.4 G/DL (3.4-5.0) 3.6 G/DL (3.4-5.0) Globulin 4.5 g/dL 4.1 g/dL Albumin/Globulin Ratio 1.0 (1.0-2.7) 0.9 (1.0-2.7) L Phosphorus Level 3.7 MG/DL (2.5-4.9) Magnesium Level 1.9 MG/DL (1.8-2.4) Height (Feet): 5 Height (Inches): 6.00 Weight (Pounds): 249 Medications Current Medications Medications (Trade) Dose Ordered Sig/Arianne Route PRN Reason Start Time Stop Time Status Last Admin Dose Admin Albuterol/ Ipratropium (Albuterol/ Ipratropium) 3 ml Q4H PRN HHN Shortness of Breath 05/02/19 00:15 05/07/19 00:14 Aspirin (ASA) 81 mg DAILY ORAL 05/02/19 09:00 06/01/19 08:59 05/02/19 09:13 Dextrose/Sodium Chloride 1,000 ml @ 100 mls/hr Q10H IV 05/02/19 00:15 06/01/19 00:14 05/02/19 10:15 Folic Acid (Folate) 1 mg DAILY ORAL 05/02/19 09:00 06/01/19 08:59 05/02/19 09:13 Heparin Sodium (Porcine) (Heparin 5000 units/ml) 5,000 units EVERY 12 HOURS SUBQ 05/02/19 09:00 06/01/19 08:59 05/02/19 09:17 Hydromorphone HCl (Dilaudid) 1 mg Q4H PRN IVP For Pain 05/02/19 00:45 05/09/19 00:44 Hydromorphone HCl (Dilaudid) 2 mg Q3H PRN IVP Severe Pain (Pain Scale 7-10) 05/02/19 11:30 05/09/19 11:29 05/02/19 12:25 Hydroxyurea (Hydrea) 1,500 mg DAILY ORAL 05/02/19 09:00 05/07/19 08:59 05/02/19 09:13 Ondansetron HCl (Zofran) 4 mg Q4HR PRN IVP Nausea & Vomiting 05/02/19 00:15 06/01/19 00:14 Salmeterol Xinafoate/ Fluticasone (Advair 250/50 Diskus) 1 puffs BID INH 05/02/19 09:00 06/01/19 08:59 05/02/19 09:25 Assessment/Plan Problem List: (1) Sickle cell crisis ICD Codes: D57.00 - Hb-SS disease with crisis, unspecified SNOMED: 281986468 (2) Anemia ICD Codes: D64.9 - Anemia, unspecified SNOMED: 713282812 Assessment/Plan: iv fluids Nasal cannula pain management f/u dialy LDH, bilirubin and reti count. Ranjith Caicedo MD May 02, 2019 12:30
--- NOTE | 2019-05-02 13:01 | History & Physical ---
History and Physical History & Physicial Dictated for Int Med-Dr Bearden no. [id number]. Edilson Rubalcava MD May 02, 2019 13:01
--- NOTE | 2019-05-02 14:56 | Cardiology Report ---
APPROVED REPORT EKG Measurement Heart [id number] [id number] Normal sinus rhythm with sinus arrhythmia Normal ECG
--- NOTE | 2019-05-02 17:00 | Diagnostic Imaging Report ---
. Indication: Chest pain Technique: One view of the chest Comparison: 03/20/2019 Findings: There is mild bilateral interstitial congestion. No focal airspace consolidation. The heart is enlarged. No effusions. There is a right chest port catheter Impression: Mild interstitial congestion bilaterally Borderline cardiomegaly
--- NOTE | 2019-05-02 18:30 | History and Physical Report ---
DATE OF ADMISSION: 05/01/2019 CHIEF COMPLAINT: The patient is a 23-year-old male with history of sickle cell disease and beta thalassemia, who presents with chief complaint of chest pain. HISTORY OF PRESENT ILLNESS: The patient was admitted to [facility] from 03/20/2019 to 03/26/2019. Please see history and physical and discharge summary dictated at that time. The patient presented to [place] emergency room after having a near syncopal episode. The patient states he had blurred vision, started seeing spots and had tunnel vision. The patient collapsed. The patient was aware what was going on around him. The patient also complains of chest pain for the last four days. The patient was admitted with near syncope and sickle cell crisis. REVIEW OF SYSTEMS: CONSTITUTIONAL: The patient denies weight loss or weight gain. The patient denies fevers or chills. HEENT: The patient denies ear or throat pain. The patient denies headache. CARDIOVASCULAR: The patient complains of chest pain as above. The patient denies palpitations. ABDOMEN: The patient denies nausea, vomiting, diarrhea, or constipation. GENITOURINARY: The patient denies dysuria or increased frequency of urination. NEUROMUSCULAR: The patient complains of syncopal episode as above. The patient denies seizures or generalized weakness. PAST MEDICAL HISTORY: Significant for: 1. Sickle cell disease. 2. Beta thalassemia. 3. Asthma. 4. Avascular necrosis of the left hip. PAST SURGICAL HISTORY: Significant for: 1. 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 2. Port-A-Cath placement in the right chest. CURRENT MEDICATIONS: 1. Albuterol metered-dose inhaler two puffs p.o. four times a day p.r.n. 2. Aspirin 81 mg p.o. daily. 3. Advair 250/50 mcg one puff p.o. twice daily. 4. Folic acid 1 mg p.o. daily. 5. Dilaudid 8 mg one tablet p.o. q.3 h. p.r.n. 6. Hydroxyurea 500 mg three tablets p.o. daily. 7. Oxycodone ER 20 mg p.o. twice daily. ALLERGIES: 1. Capsaicin. 2. Ceftriaxone. 3. IV contrast dye. 4. Iopamidol. SOCIAL HISTORY: The patient is single and lives with his family. The patient denies tobacco or alcohol use. PHYSICAL EXAMINATION: VITAL SIGNS: Temperature 99.7, respirations 20, pulse 56, and blood pressure 138/83. GENERAL: The patient is a well-developed and well-nourished male, in moderate pain. HEENT: Eyes, pupils are equal and responsive to light and accommodation. Extraocular movements intact. NECK: Supple without lymphadenopathy. CHEST: Lungs are clear to auscultation bilaterally without wheezes or rales. CARDIOVASCULAR: Regular rhythm and rate. S1, S2 normal without murmurs, rubs, or gallops. ABDOMEN: Soft, nontender, and nondistended. Positive bowel sounds. No evidence of hepatosplenomegaly. Currently, no rebound or guarding. EXTREMITIES: Negative for clubbing, cyanosis, or edema. RECTAL/GENITAL: Not performed. NEUROLOGIC: Cranial nerves II through XII are grossly intact without focal deficits. Motor strength is 5/5 bilaterally. Deep tendon reflexes are 2+ plantar. LABORATORY STUDIES: WBC is 16.6, hemoglobin 10.7, hematocrit 35.4, and platelets 360,000. Sodium 139, potassium 4.0, chloride 103, CO2 26, BUN 5, and creatinine 0.5. Glucose 126. Troponin is 0.0. Total bilirubin elevated at 1.8, direct bilirubin elevated at 0.4. AST elevated at 48, alkaline phosphatase elevated at 123. Chest x-ray was reported as . CT scan of the brain was negative for intracranial hemorrhage or mass. ASSESSMENT: This is a 23-year-old male with: 1. Chest pain. 2. Near syncope. 3. Sickle cell disease. 4. Beta thalassemia. 5. Sickle cell anemia. 6. Asthma. 7. Avascular necrosis of the left hip. TREATMENT: 1. Syncopal episode. This may be secondary to vasovagal versus cerebrovascular accident. An MRI of the brain is pending. Carotid duplex Dopplers are pending. 2. Chest pain. An initial troponin level was negative. A Cardiology consultation has been obtained with Dr. Dane Dickey. 3. Sickle cell disease/beta thalassemia. A Hematology-Oncology consultation has been obtained with Dr. Olmedo. The patient is followed as an outpatient by Dr. Kerline Davenport. We will follow recommendations of Hematology-Oncology. The patient is currently receiving pain medication with intravenous Dilaudid. 4. Asthma. Continue albuterol metered-dose inhaler and Advair as above. 5. Avascular necrosis of left hip. Edilson Rubalcava M.D. DR: HEMALATHA JOB#: [id number] CC:
--- NOTE | 2019-05-02 19:27 | NUR ---
HAND-OFF: Report given to EDU Alex.
--- NOTE | 2019-05-02 19:54 | NUR ---
NURSE NOTES: Received patient awake,alert,verbal,ambulatory,resting in bed,comfortable.
[2019-05-02 20:00] VITALS: BP 137/84
--- NOTE | 2019-05-02 20:31 | NUR ---
CASE MANAGEMENT: REVIEW 23Y/MALE PRESENTED TO ED FROM HOME CC: SYNCOPAL EPISODE w/DIAPHORESIS . SICKLE CELL PAIN SI: SICKLE CELL CRISIS T 98.4 HR 73 RR 20 BP 129/101 SAT 98% ROOM AIR WBC 16.6 H/H 10.7/35.[address] 11.0 IS: NS IVF BOLUS X1 DILAUDID IV X1 ZOFRAN IV X1 PATIENT ADMITTED TO MED/SURG UNIT 05/01/2019 DCP: PATIENT IS FROM HOME
[2019-05-03 04:00] VITALS: BP 145/72
[2019-05-03] MEDS: D5 1/2NS 1,000 ML IV SCH ×3 (04:28→23:38)
[2019-05-03 06:13] LABS: HEMATOCRIT 29.7 % (42.0-52.0); HEMOGLOBIN 9.3 G/DL (14.2-18.0); MEAN CORPUSCULAR VOLUME 82 FL (80-99); PLATELET COUNT 296 K/UL (150-450); RED CELL DISTRIBUTION WIDTH 17.4 % (11.6-14.8); WHITE BLOOD COUNT 16.1 K/UL (4.8-10.8)
[2019-05-03 06:46] LABS: ALANINE AMINOTRANSFERASE 42 U/L (12-78); ALBUMIN 3.7 G/DL (3.4-5.0); ALBUMIN/GLOBULIN RATIO 0.9 (1.0-2.7); ALKALINE PHOSPHATASE 94 U/L (46-116); ANION GAP 9 mmol/L (5-15); ASPARTATE AMINO TRANSFERASE 33 U/L (15-37); BILIRUBIN,TOTAL 1.4 MG/DL (0.2-1.0); BLOOD UREA NITROGEN 5 mg/dL (7-18); CARBON DIOXIDE 27 MMOL/L (21-32); CHLORIDE 106 MMOL/L (98-107); CREATININE 0.5 MG/DL (0.55-1.30); LACTATE DEHYDROGENASE 303 U/L (81-234); PHOSPHORUS 4.4 MG/DL (2.5-4.9); POTASSIUM 3.7 MMOL/L (3.5-5.1); SODIUM 142 MMOL/L (136-145)
[2019-05-03 06:53] LABS: BILIRUBIN,DIRECT 0.3 MG/DL (0.0-0.3)
--- NOTE | 2019-05-03 07:23 | NUR ---
HAND-OFF: Report given to Augie Shoemaker RN.
--- NOTE | 2019-05-03 07:55 | NUR ---
NURSE NOTES: PT AXOX4, CALM, RESTING IN BED. STATES PAIN 9/10, ALL OVER THE BODY. RN ADMINISTERED PRN DILAUDID 2MG IVP ORDERED. PT EDUCATED ON FALL RISK AND SIDE EFFECTS OF MEDICATION. PT VERBALIZED UNDERSTANDING. BED IN LOWEST POSITION WITH BEDSIDE RAILS X2 RAISED. CALL LIGHT PLACED WITHIN REACH. IN NO APPARENT DISTRESS AT THIS TIME. WILL CONTINUE TO MONITOR.
[2019-05-03 08:00] VITALS: BP 122/83
[2019-05-03] MEDS: Hydroxyurea 500mg cap ORAL SCH (08:59)
[2019-05-03] MEDS: Aspirin Baby 81mg ORAL SCH (08:59)
[2019-05-03] MEDS: Heparin 5000 units/ml inj SUBQ SCH ×2 (09:00→20:19)
[2019-05-03] MEDS: Wixela 250/50 Inhaler - 60 dose INH SCH ×2 (09:43→20:30)
[2019-05-03 12:00] VITALS: BP 121/82
--- NOTE | 2019-05-03 12:00 | Pulmonology Progress Note ---
Assessment/Plan Problems: (1) Sickle cell crisis (2) Anemia Assessment/Plan LDH is 303, Reti count is high as well continue iv fluids and pain meds Subjective ROS Limited/Unobtainable: No Constitutional: Reports: no symptoms HEENT: Repors: no symptoms Respiratory: Reports: no symptoms Allergies: Coded Allergies: CAPSAICIN (Verified Allergy, Unknown, 11/23/18) CEFTRIAXONE (Verified Allergy, Unknown, 11/23/18) IOPAMIDOL (Unverified Allergy, Unknown, 01/01/19) Uncoded Allergies: IV CONTRAST (Allergy, Unknown, 01/01/19) CONTRAST (Adverse Reaction, Severe, Rash, 06/23/16) RADIOCONTRAST - RASH, ITCHING Objective Last 24 Hour Vital Signs Date Time Temp Pulse Resp B/P (MAP) Pulse Ox O2 Delivery O2 Flow Rate FiO2 05/03/19 09:45 67 18 99 Nasal Cannula 2.0 28 05/03/19 09:43 97 Nasal Cannula 2.0 28 05/03/19 09:43 65 18 99 Nasal Cannula 2.0 28 05/03/19 09:00 Nasal Cannula 2.0 05/03/19 08:00 97.6 58 17 122/83 (96) 99 05/03/19 04:59 99.4 05/03/19 04:00 98.2 61 18 145/72 (96) 97 05/02/19 21:28 81 16 99 Room Air 21 05/02/19 21:27 78 16 99 Room Air 21 05/02/19 21:00 Nasal Cannula 2.0 05/02/19 20:00 99.6 60 18 137/84 (101) 96 05/02/19 12:00 99.4 56 14 138/76 (96) 97 Intake and Output 05/02/19 05/03/19 19:00 07:00 Intake Total 1200 ml 1750 ml Balance 1200 ml 1750 ml Intake Oral 600 ml IV Total 1200 ml 1150 ml # Voids 3 # Bowel Movements 1 General Appearance: WD/WN HEENT: normocephalic, atraumatic Respiratory/Chest: chest wall non-tender, normal breath sounds Cardiovascular: normal peripheral pulses, normal rate Abdomen: normal bowel sounds, soft, non tender Genitourinary: normal external genitalia Extremities: no clubbing Skin: no rash 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 Laboratory Tests 05/03/19 04:30: White Blood Count 16.1H, Red Blood Count 3.60L, Hemoglobin 9.3L, Hematocrit 29.7L, Mean Corpuscular Volume 82, Mean Corpuscular Hemoglobin 25.7L, Mean Corpuscular Hemoglobin Concent 31.2L, Red Cell Distribution Width 17.4H, Platelet Count 296, Mean Platelet Volume 6.5, Neutrophils (%) (Auto) , Lymphocytes (%) (Auto) , Monocytes (%) (Auto) , Eosinophils (%) (Auto) , Basophils (%) (Auto) , Differential Total Cells Counted 100, Neutrophils % ( Manual) 45, Lymphocytes % (Manual) 43, Monocytes % (Manual) 6, Eosinophils % ( Manual) 5H, Basophils % (Manual) 1, Band Neutrophils 0, Nucleated Red Blood Cells 8, Platelet Estimate Adequate, Platelet Morphology Normal, Polychromasia 1 +, Hypochromasia 1+, Anisocytosis 1+, Target Cells Occasional, Erythrocyte Sedimentation Rate 12, Reticulocyte Count 14.8H, Sodium Level 142, Potassium Level 3.7, Chloride Level 106, Carbon Dioxide Level 27, Anion Gap 9, Blood Urea Nitrogen 5L, Creatinine 0.5L, Estimat Glomerular Filtration Rate > 60, Glucose Level 81, Calcium Level 9.0, Phosphorus Level 4.4, Magnesium Level 2.0, Total Bilirubin 1.4H, Direct Bilirubin 0.3, Aspartate Amino Transf (AST/SGOT) 33, Alanine Aminotransferase (ALT/SGPT) 42, Alkaline Phosphatase 94, Lactate Dehydrogenase 303H, Total Protein 7.7, Albumin 3.7, Globulin 4.0, Albumin/ Globulin Ratio 0.9L Current Medications Medications (Trade) Dose Ordered Sig/Arianne Route PRN Reason Start Time Stop Time Status Last Admin Dose Admin Albuterol/ Ipratropium (Albuterol/ Ipratropium) 3 ml Q4H PRN HHN Shortness of Breath 05/02/19 00:15 05/07/19 00:14 Aspirin (ASA) 81 mg DAILY ORAL 05/02/19 09:00 06/01/19 08:59 05/03/19 08:59 Dextrose/Sodium Chloride 1,000 ml @ 100 mls/hr Q10H IV 05/02/19 00:15 06/01/19 00:14 05/03/19 04:28 Folic Acid (Folate) 1 mg DAILY ORAL 05/02/19 09:00 06/01/19 08:59 05/03/19 08:59 Heparin Sodium (Porcine) (Heparin 5000 units/ml) 5,000 units EVERY 12 HOURS SUBQ 05/02/19 09:00 06/01/19 08:59 05/02/19 20:01 Hydromorphone HCl (Dilaudid) 1 mg Q4H PRN IVP For Pain 05/02/19 00:45 05/09/19 00:44 Hydromorphone HCl (Dilaudid) 2 mg Q3H PRN IVP Severe Pain (Pain Scale 7-10) 05/02/19 11:30 05/09/19 11:29 05/03/19 10:39 Hydroxyurea (Hydrea) 1,500 mg DAILY ORAL 05/02/19 09:00 05/07/19 08:59 05/03/19 08:59 Ondansetron HCl (Zofran) 4 mg Q4HR PRN IVP Nausea & Vomiting 05/02/19 00:15 06/01/19 00:14 Salmeterol Xinafoate/ Fluticasone (Advair 250/50 Diskus) 1 puffs BID INH 05/02/19 09:00 06/01/19 08:59 05/03/19 09:43 Ranjith Caicedo MD May 03, 2019 12:00
--- NOTE | 2019-05-03 15:59 | Internal Med Progress Note ---
Subjective Date of Service: May 03, 2019 Physician Name GiniEdilson Attending Physician Jersey Bearden MD Current Medications Medications (Trade) Dose Ordered Sig/Arianne Route PRN Reason Start Time Stop Time Status Last Admin Dose Admin Albuterol/ Ipratropium (Albuterol/ Ipratropium) 3 ml Q4H PRN HHN Shortness of Breath 05/02/19 00:15 05/07/19 00:14 Aspirin (ASA) 81 mg DAILY ORAL 05/02/19 09:00 06/01/19 08:59 05/03/19 08:59 Dextrose/Sodium Chloride 1,000 ml @ 100 mls/hr Q10H IV 05/02/19 00:15 06/01/19 00:14 05/03/19 13:49 Diphenhydramine HCl (Benadryl) 25 mg Q3H PRN IVP Itching 05/03/19 15:00 06/02/19 14:59 Folic Acid (Folate) 1 mg DAILY ORAL 05/02/19 09:00 06/01/19 08:59 05/03/19 08:59 Heparin Sodium (Porcine) (Heparin 5000 units/ml) 5,000 units EVERY 12 HOURS SUBQ 05/02/19 09:00 06/01/19 08:59 05/02/19 20:01 Hydromorphone HCl (Dilaudid) 1 mg Q4H PRN IVP For Pain 05/02/19 00:45 05/09/19 00:44 Hydromorphone HCl (Dilaudid) 3 mg Q3H PRN IVP Severe Pain (Pain Scale 7-10) 05/03/19 14:56 05/10/19 14:55 Hydroxyurea (Hydrea) 1,500 mg DAILY ORAL 05/02/19 09:00 05/07/19 08:59 05/03/19 08:59 Ondansetron HCl (Zofran) 4 mg Q4HR PRN IVP Nausea & Vomiting 05/02/19 00:15 06/01/19 00:14 Salmeterol Xinafoate/ Fluticasone (Advair 250/50 Diskus) 1 puffs BID INH 05/02/19 09:00 06/01/19 08:59 05/03/19 09:43 Allergies: Coded Allergies: CAPSAICIN (Verified Allergy, Unknown, 11/23/18) CEFTRIAXONE (Verified Allergy, Unknown, 11/23/18) IOPAMIDOL (Unverified Allergy, Unknown, 01/01/19) Uncoded Allergies: IV CONTRAST (Allergy, Unknown, 01/01/19) CONTRAST (Adverse Reaction, Severe, Rash, 06/23/16) RADIOCONTRAST - RASH, ITCHING ROS Limited/Unobtainable: No Constitutional: Reports: no symptoms HEENT: Reports: no symptoms Cardiovascular: Reports: chest pain Respiratory: Reports: no symptoms Gastrointestinal/Abdominal: Reports: no symptoms Genitourinary: Reports: no symptoms Neurologic/Psychiatric: Reports: no symptoms Subjective 23 YO M with history of sickle cell dis admitted with chest pain and near syncope. Objective Last Vital Signs Date Time Temp Pulse Resp B/P (MAP) Pulse Ox O2 Delivery O2 Flow Rate FiO2 05/03/19 12:00 97.6 64 17 121/82 (95) 99 05/03/19 09:45 Nasal Cannula 2.0 28 Laboratory Tests Test 05/03/19 04:30 White Blood Count 16.1 K/UL (4.8-10.8) H Red Blood Count 3.60 M/UL (4.70-6.10) L Hemoglobin 9.3 G/DL (14.2-18.0) L Hematocrit 29.7 % (42.0-52.0) L Mean Corpuscular Volume 82 FL (80-99) Mean Corpuscular Hemoglobin 25.7 PG (27.0-31.0) L Mean Corpuscular Hemoglobin Concent 31.2 G/DL (32.0-36.0) L Red Cell Distribution Width 17.4 % (11.6-14.8) H Platelet Count 296 K/UL (150-450) Mean Platelet Volume 6.5 FL (6.5-10.1) Neutrophils (%) (Auto) % (45.0-75.0) Lymphocytes (%) (Auto) % (20.0-45.0) Monocytes (%) (Auto) % (1.0-10.0) Eosinophils (%) (Auto) % (0.0-3.0) Basophils (%) (Auto) % (0.0-2.0) Differential Total Cells Counted 100 Neutrophils % (Manual) 45 % (45-75) Lymphocytes % (Manual) 43 % (20-45) Monocytes % (Manual) 6 % (1-10) Eosinophils % (Manual) 5 % (0-3) H Basophils % (Manual) 1 % (0-2) Band Neutrophils 0 % (0-8) Nucleated Red Blood Cells 8 /100 WBC Platelet Estimate Adequate Platelet Morphology Normal Polychromasia 1+ Hypochromasia 1+ Anisocytosis 1+ Target Cells Occasional Erythrocyte Sedimentation Rate 12 MM/HR (0-15) Reticulocyte Count 14.8 % (0.5-2.0) H Sodium Level 142 MMOL/L (136-145) Potassium Level 3.7 MMOL/L (3.5-5.1) Chloride Level 106 MMOL/L (98-107) Carbon Dioxide Level 27 MMOL/L (21-32) Anion Gap 9 mmol/L (5-15) Blood Urea Nitrogen 5 mg/dL (7-18) L Creatinine 0.5 MG/DL (0.55-1.30) L Estimat Glomerular Filtration Rate > 60 mL/min (>60) Glucose Level 81 MG/DL (74-106) Calcium Level 9.0 MG/DL (8.5-10.1) Phosphorus Level 4.4 MG/DL (2.5-4.9) Magnesium Level 2.0 MG/DL (1.8-2.4) Total Bilirubin 1.4 MG/DL (0.2-1.0) H Direct Bilirubin 0.3 MG/DL (0.0-0.3) Aspartate Amino Transf (AST/SGOT) 33 U/L (15-37) Alanine Aminotransferase (ALT/SGPT) 42 U/L (12-78) Alkaline Phosphatase 94 U/L (46-116) Lactate Dehydrogenase 303 U/L (81-234) H Total Protein 7.7 G/DL (6.4-8.2) Albumin 3.7 G/DL (3.4-5.0) Globulin 4.0 g/dL Albumin/Globulin Ratio 0.9 (1.0-2.7) L Intake and Output 05/02/19 05/03/19 19:00 07:00 Intake Total 1200 ml 1750 ml Balance 1200 ml 1750 ml Intake Oral 600 ml IV Total 1200 ml 1150 ml # Voids 3 # Bowel Movements 1 Objective PHYSICAL EXAMINATION: GENERAL: The patient is a well-developed and well-nourished male, in moderate pain. HEENT: Eyes, pupils are equal and responsive to light and accommodation. Extraocular movements intact. NECK: Supple without lymphadenopathy. CHEST: Lungs are clear to auscultation bilaterally without wheezes or rales. CARDIOVASCULAR: Regular rhythm and rate. S1, S2 normal without murmurs, rubs, or gallops. ABDOMEN: Soft, nontender, and nondistended. Positive bowel sounds. No evidence of hepatosplenomegaly. Currently, no rebound or guarding. EXTREMITIES: Negative for clubbing, cyanosis, or edema. RECTAL/GENITAL: Not performed. NEUROLOGIC: Cranial nerves II through XII are grossly intact without focal deficits. Motor strength is 5/5 bilaterally. Deep tendon reflexes are 2+ plantar. Assessment/Plan Assessment/Plan ASSESSMENT: This is a 23-year-old male with: 1. Chest pain. 2. Near syncope. 3. Sickle cell disease. 4. Beta thalassemia. 5. Sickle cell anemia. 6. Asthma. 7. Avascular necrosis of the left hip. TREATMENT: 1. Syncopal episode. This may be secondary to vasovagal versus cerebrovascular accident. An MRI of the brain is pending. Carotid duplex Dopplers are pending. 2. Chest pain. An initial troponin level was negative. A Cardiology consultation has been obtained with Dr. Dane Dickey. 3. Sickle cell disease/beta thalassemia. A Hematology-Oncology consultation has been obtained with Dr. Olmedo. The patient is followed as an outpatient by Dr. Kerline Davenport. We will follow recommendations of Hematology-Oncology. The patient is currently receiving pain medication with intravenous Dilaudid. 4. Asthma. Continue albuterol metered-dose inhaler and Advair as above. 5. Avascular necrosis of left hip. Edilson Rubalcava MD May 03, 2019 15:59
[2019-05-03 16:00] VITALS: BP 118/72
[2019-05-03] MEDS: DiphenhydrAMINE 50mg/ml Inj IVP PRN ×3 (17:08→23:29)
--- NOTE | 2019-05-03 19:32 | NUR ---
HAND-OFF: Report given to Roger THOMSON RN.
--- NOTE | 2019-05-03 19:32 | NUR ---
NURSE NOTES: Patient is in bed, awake, alert and verbal. Receiving oxygen via N/C 2L/min. No acute distress or SOB noted. IV site on left chest PermCath patent and intact. Bed in low and locked position. Call light within reach. Patient will be monitored.
[2019-05-03 20:00] VITALS: BP 124/74
--- NOTE | 2019-05-03 20:25 | NUR ---
NURSE NOTES: Patient is in bed, awake, alert and verbal. N/C at 2L. No acute distress or SOB noted. IV site on left chest PermCath patent and intact. Pain medication will be given as ordered PRN. D5 1/2 NS running at 100 ml/hr. Bed in low and locked position. Call light within reach. Patient will be monitored. Trainee, Ulises Kenny, RN will be assisting in the care of this patient.
[2019-05-04] VITALS: BP 130/75
--- NOTE | 2019-05-04 01:30 | NUR ---
NURSE NOTES: Patient is in bed, awake, pain medication administered as ordered. Assisted as needed. Bed in low and locked position. call light within reach. Will continue to monitor.
[2019-05-04] MEDS: DiphenhydrAMINE 50mg/ml Inj IVP PRN ×7 (02:35→21:45)
[2019-05-04 04:00] VITALS: BP 128/75
--- NOTE | 2019-05-04 07:23 | NUR ---
HAND-OFF: Report given to Augie Shoemaker RN.
[2019-05-04 07:24] LABS: HEMATOCRIT 29.9 % (42.0-52.0); HEMOGLOBIN 9.1 G/DL (14.2-18.0); MEAN CORPUSCULAR VOLUME 82 FL (80-99); PLATELET COUNT 293 K/UL (150-450); RED BLOOD COUNT 3.65 M/UL (4.70-6.10); RED CELL DISTRIBUTION WIDTH 15.4 % (11.6-14.8); WHITE BLOOD COUNT 11.4 K/UL (4.8-10.8)
[2019-05-04 07:25] LABS: ALANINE AMINOTRANSFERASE 42 U/L (12-78); ALBUMIN 3.5 G/DL (3.4-5.0); ALBUMIN/GLOBULIN RATIO 0.9 (1.0-2.7); ALKALINE PHOSPHATASE 91 U/L (46-116); ANION GAP 8 mmol/L (5-15); ASPARTATE AMINO TRANSFERASE 32 U/L (15-37); BILIRUBIN,TOTAL 1.4 MG/DL (0.2-1.0); BLOOD UREA NITROGEN 4 mg/dL (7-18); CALCIUM 8.9 MG/DL (8.5-10.1); CARBON DIOXIDE 27 MMOL/L (21-32); CHLORIDE 104 MMOL/L (98-107); CREATININE 0.5 MG/DL (0.55-1.30); LACTATE DEHYDROGENASE 255 U/L (81-234); PHOSPHORUS 4.7 MG/DL (2.5-4.9); POTASSIUM 3.6 MMOL/L (3.5-5.1); SODIUM 139 MMOL/L (136-145)
--- NOTE | 2019-05-04 07:25 | NUR ---
NURSE NOTES: Received patient on bed. No SOB or cardiac distress. With portacath on right upper chest patent, dressing intact, no s/s of infiltration on insertion site. Head of bed elevated. Bed kept on lowest position and locked. Call light within reach. Will continue plan of care.
[2019-05-04 07:26] LABS: BILIRUBIN,DIRECT 0.3 MG/DL (0.0-0.3)
[2019-05-04 07:58] VITALS: BP 111/55
[2019-05-04] MEDS: Wixela 250/50 Inhaler - 60 dose INH SCH ×2 (08:36→20:33)
[2019-05-04] MEDS: Aspirin Baby 81mg ORAL SCH (08:56)
[2019-05-04] MEDS: Hydroxyurea 500mg cap ORAL SCH (08:56)
[2019-05-04] MEDS: Heparin 5000 units/ml inj SUBQ SCH ×2 (09:00→21:00)
[2019-05-04] MEDS: D5 1/2NS 1,000 ML IV SCH ×3 (09:12→17:18)
[2019-05-04 12:00] VITALS: BP 121/62
--- NOTE | 2019-05-04 12:18 | Pulmonology Progress Note ---
Assessment/Plan Problems: (1) Sickle cell crisis (2) Anemia Assessment/Plan increase if fluid Reti count is high as well continue iv fluids and pain meds Subjective ROS Limited/Unobtainable: No Interval Events: still the same pain, dark urine Allergies: Coded Allergies: CAPSAICIN (Verified Allergy, Unknown, 11/23/18) CEFTRIAXONE (Verified Allergy, Unknown, 11/23/18) IOPAMIDOL (Unverified Allergy, Unknown, 01/01/19) Uncoded Allergies: IV CONTRAST (Allergy, Unknown, 01/01/19) CONTRAST (Adverse Reaction, Severe, Rash, 06/23/16) RADIOCONTRAST - RASH, ITCHING Objective Last 24 Hour Vital Signs Date Time Temp Pulse Resp B/P (MAP) Pulse Ox O2 Delivery O2 Flow Rate FiO2 05/04/19 10:00 97 Room Air 21 05/04/19 09:59 66 20 97 Room Air 21 05/04/19 09:58 67 20 96 Room Air 21 05/04/19 07:58 98.5 55 16 111/55 (73) 99 05/04/19 04:00 97.5 56 20 128/75 (92) 98 05/04/19 00:00 98.3 57 20 130/75 (93) 98 05/03/19 21:00 Nasal Cannula 2.0 05/03/19 20:31 65 18 99 Nasal Cannula 2.0 28 05/03/19 20:30 63 18 97 Nasal Cannula 2.0 28 05/03/19 20:30 97 Nasal Cannula 2.0 28 05/03/19 20:00 98.1 58 20 124/74 (91) 98 05/03/19 16:00 97.9 70 17 118/72 (87) 99 Intake and Output 05/03/19 05/04/19 18:59 06:59 Intake Total 1800 ml 1640 ml Balance 1800 ml 1640 ml Intake Oral 600 ml 640 ml IV Total 1200 ml 1000 ml # Voids 4 2 General Appearance: WD/WN HEENT: normocephalic, anicteric Respiratory/Chest: chest wall non-tender, lungs clear Cardiovascular: normal peripheral pulses, regular rhythm Abdomen: normal bowel sounds, non distended Genitourinary: normal external genitalia Extremities: no cyanosis Skin: no rash Laboratory Tests 05/04/19 05:30: White Blood Count 11.4H, Red Blood Count 3.65L, Hemoglobin 9.1L, Hematocrit 29.9L, Mean Corpuscular Volume 82, Mean Corpuscular Hemoglobin 24.9L, Mean Corpuscular Hemoglobin Concent 30.3L, Red Cell Distribution Width 15.4H, Platelet Count 293, Mean Platelet Volume 7.8, Neutrophils (%) (Auto) , Lymphocytes (%) (Auto) , Monocytes (%) (Auto) , Eosinophils (%) (Auto) , Basophils (%) (Auto) , Differential Total Cells Counted 100, Neutrophils % ( Manual) 43L, Lymphocytes % (Manual) 39, Monocytes % (Manual) 11H, Eosinophils % (Manual) 7H, Basophils % (Manual) 0, Band Neutrophils 0, Nucleated Red Blood Cells 7, Platelet Estimate Adequate, Platelet Morphology Normal, Hypochromasia 2 +, Anisocytosis 1+, Target Cells Occasional, Erythrocyte Sedimentation Rate 7, Reticulocyte Count 12.2H, Sodium Level 139, Potassium Level 3.6, Chloride Level 104, Carbon Dioxide Level 27, Anion Gap 8, Blood Urea Nitrogen 4L, Creatinine 0.5L, Estimat Glomerular Filtration Rate > 60, Glucose Level 85, Calcium Level 8.9, Phosphorus Level 4.7, Magnesium Level 2.1, Total Bilirubin 1.4H, Direct Bilirubin 0.3, Aspartate Amino Transf (AST/SGOT) 32, Alanine Aminotransferase ( ALT/SGPT) 42, Alkaline Phosphatase 91, Lactate Dehydrogenase 255H, Total Protein 7.5, Albumin 3.5, Globulin 4.0, Albumin/Globulin Ratio 0.9L Current Medications Medications (Trade) Dose Ordered Sig/Arianne Route PRN Reason Start Time Stop Time Status Last Admin Dose Admin Albuterol/ Ipratropium (Albuterol/ Ipratropium) 3 ml Q4H PRN HHN Shortness of Breath 05/02/19 00:15 05/07/19 00:14 Aspirin (ASA) 81 mg DAILY ORAL 05/02/19 09:00 06/01/19 08:59 05/04/19 08:56 Dextrose/Sodium Chloride 1,000 ml @ 100 mls/hr Q10H IV 05/02/19 00:15 06/01/19 00:14 05/04/19 09:12 Diphenhydramine HCl (Benadryl) 25 mg Q3H PRN IVP Itching 05/03/19 15:00 06/02/19 14:59 05/04/19 09:03 Folic Acid (Folate) 1 mg DAILY ORAL 05/02/19 09:00 06/01/19 08:59 05/04/19 08:56 Heparin Sodium (Porcine) (Heparin 5000 units/ml) 5,000 units EVERY 12 HOURS SUBQ 05/02/19 09:00 06/01/19 08:59 05/03/19 20:19 Hydromorphone HCl (Dilaudid) 1 mg Q4H PRN IVP For Pain 05/02/19 00:45 05/09/19 00:44 Hydromorphone HCl (Dilaudid) 3 mg Q3H PRN IVP Severe Pain (Pain Scale 7-10) 05/03/19 14:56 05/10/19 14:55 05/04/19 09:05 Hydroxyurea (Hydrea) 1,500 mg DAILY ORAL 05/02/19 09:00 05/07/19 08:59 05/04/19 08:56 Ondansetron HCl (Zofran) 4 mg Q4HR PRN IVP Nausea & Vomiting 05/02/19 00:15 06/01/19 00:14 Salmeterol Xinafoate/ Fluticasone (Advair 250/50 Diskus) 1 puffs BID INH 05/02/19 09:00 06/01/19 08:59 05/04/19 08:36 Ranjith Caicedo MD May 04, 2019 12:18
--- NOTE | 2019-05-04 12:45 | Internal Med Progress Note ---
Subjective Physician Name Jersey Bearden Attending Physician Jersey Bearden MD Current Medications Medications (Trade) Dose Ordered Sig/Arianne Route PRN Reason Start Time Stop Time Status Last Admin Dose Admin Albuterol/ Ipratropium (Albuterol/ Ipratropium) 3 ml Q4H PRN HHN Shortness of Breath 05/02/19 00:15 05/07/19 00:14 Aspirin (ASA) 81 mg DAILY ORAL 05/02/19 09:00 06/01/19 08:59 05/04/19 08:56 Dextrose/Sodium Chloride 1,000 ml @ 125 mls/hr Q8H IV 05/04/19 12:30 06/03/19 12:29 Diphenhydramine HCl (Benadryl) 25 mg Q3H PRN IVP Itching 05/03/19 15:00 06/02/19 14:59 05/04/19 12:23 Folic Acid (Folate) 1 mg DAILY ORAL 05/02/19 09:00 06/01/19 08:59 05/04/19 08:56 Heparin Sodium (Porcine) (Heparin 5000 units/ml) 5,000 units EVERY 12 HOURS SUBQ 05/02/19 09:00 06/01/19 08:59 05/03/19 20:19 Hydromorphone HCl (Dilaudid) 1 mg Q4H PRN IVP For Pain 05/02/19 00:45 05/09/19 00:44 Hydromorphone HCl (Dilaudid) 3 mg Q3H PRN IVP Severe Pain (Pain Scale 7-10) 05/03/19 14:56 05/10/19 14:55 05/04/19 12:25 Hydroxyurea (Hydrea) 1,500 mg DAILY ORAL 05/02/19 09:00 05/07/19 08:59 05/04/19 08:56 Ondansetron HCl (Zofran) 4 mg Q4HR PRN IVP Nausea & Vomiting 05/02/19 00:15 06/01/19 00:14 Salmeterol Xinafoate/ Fluticasone (Advair 250/50 Diskus) 1 puffs BID INH 05/02/19 09:00 06/01/19 08:59 05/04/19 08:36 Allergies: Coded Allergies: CAPSAICIN (Verified Allergy, Unknown, 11/23/18) CEFTRIAXONE (Verified Allergy, Unknown, 11/23/18) IOPAMIDOL (Unverified Allergy, Unknown, 01/01/19) Uncoded Allergies: IV CONTRAST (Allergy, Unknown, 01/01/19) CONTRAST (Adverse Reaction, Severe, Rash, 06/23/16) RADIOCONTRAST - RASH, ITCHING Subjective awake, alert, responsive, C/O SOB, No N / V Objective Last Vital Signs Date Time Temp Pulse Resp B/P (MAP) Pulse Ox O2 Delivery O2 Flow Rate FiO2 05/04/19 12:00 98.6 70 21 121/62 (81) 98 05/04/19 10:00 Room Air 21 05/03/19 21:00 2.0 Laboratory Tests Test 05/04/19 05:30 White Blood Count 11.4 K/UL (4.8-10.8) H Red Blood Count 3.65 M/UL (4.70-6.10) L Hemoglobin 9.1 G/DL (14.2-18.0) L Hematocrit 29.9 % (42.0-52.0) L Mean Corpuscular Volume 82 FL (80-99) Mean Corpuscular Hemoglobin 24.9 PG (27.0-31.0) L Mean Corpuscular Hemoglobin Concent 30.3 G/DL (32.0-36.0) L Red Cell Distribution Width 15.4 % (11.6-14.8) H Platelet Count 293 K/UL (150-450) Mean Platelet Volume 7.8 FL (6.5-10.1) Neutrophils (%) (Auto) % (45.0-75.0) Lymphocytes (%) (Auto) % (20.0-45.0) Monocytes (%) (Auto) % (1.0-10.0) Eosinophils (%) (Auto) % (0.0-3.0) Basophils (%) (Auto) % (0.0-2.0) Differential Total Cells Counted 100 Neutrophils % (Manual) 43 % (45-75) L Lymphocytes % (Manual) 39 % (20-45) Monocytes % (Manual) 11 % (1-10) H Eosinophils % (Manual) 7 % (0-3) H Basophils % (Manual) 0 % (0-2) Band Neutrophils 0 % (0-8) Nucleated Red Blood Cells 7 /100 WBC Platelet Estimate Adequate Platelet Morphology Normal Hypochromasia 2+ Anisocytosis 1+ Target Cells Occasional Erythrocyte Sedimentation Rate 7 MM/HR (0-15) Reticulocyte Count 12.2 % (0.5-2.0) H Sodium Level 139 MMOL/L (136-145) Potassium Level 3.6 MMOL/L (3.5-5.1) Chloride Level 104 MMOL/L (98-107) Carbon Dioxide Level 27 MMOL/L (21-32) Anion Gap 8 mmol/L (5-15) Blood Urea Nitrogen 4 mg/dL (7-18) L Creatinine 0.5 MG/DL (0.55-1.30) L Estimat Glomerular Filtration Rate > 60 mL/min (>60) Glucose Level 85 MG/DL (74-106) Calcium Level 8.9 MG/DL (8.5-10.1) Phosphorus Level 4.7 MG/DL (2.5-4.9) Magnesium Level 2.1 MG/DL (1.8-2.4) Total Bilirubin 1.4 MG/DL (0.2-1.0) H Direct Bilirubin 0.3 MG/DL (0.0-0.3) Aspartate Amino Transf (AST/SGOT) 32 U/L (15-37) Alanine Aminotransferase (ALT/SGPT) 42 U/L (12-78) Alkaline Phosphatase 91 U/L (46-116) Lactate Dehydrogenase 255 U/L (81-234) H Total Protein 7.5 G/DL (6.4-8.2) Albumin 3.5 G/DL (3.4-5.0) Globulin 4.0 g/dL Albumin/Globulin Ratio 0.9 (1.0-2.7) L Intake and Output 05/03/19 05/04/19 18:59 06:59 Intake Total 1800 ml 1640 ml Balance 1800 ml 1640 ml Intake Oral 600 ml 640 ml IV Total 1200 ml 1000 ml # Voids 4 2 Objective General: No acute distress, awake and alert HEENT: NCAT, sclera anicteric, PERRL, EOMI. Neck: Supple, no significant jugular venous distention, Lungs: Fair inspiratory effort, no Wheeze or Rales. Chest Wall: Right PASPort Heart: Regular rate and rhythm, normal S1/S2, no murmur. Abdomen: soft, nontender, nondistended. Normoactive bowel sounds, Morbid Obesity. / Rectal: Refused and deferred. Extremities: No Cyanosis , clubbing or edema. Neuro: A&O x 3, Able to move all extremities Skin: warm, no rashes or lesions Psych: Normal mood and affect Assessment/Plan Assessment/Plan Assessment/Plan ASSESSMENT: This is a 23-year-old male with: 1. Chest pain. 2. Near syncope. 3. Sickle cell disease. 4. Beta thalassemia. 5. Sickle cell anemia. 6. Asthma. 7. Avascular necrosis of the left hip. TREATMENT: 1. Syncopal episode. This may be secondary to vasovagal versus cerebrovascular accident. An MRI of the brain is pending. Carotid duplex Dopplers are pending. 2. Chest pain. An initial troponin level was negative. A Cardiology consultation has been obtained with Dr. Dane Dickey. 3. Sickle cell disease/beta thalassemia. A Hematology-Oncology consultation has been obtained with Dr. Olmedo. The patient is followed as an outpatient by Dr. Kerline Davenport. We will follow recommendations of Hematology-Oncology. The patient is currently receiving pain medication with intravenous Dilaudid. 4. Asthma. Continue albuterol metered-dose inhaler and Advair as above. 5. Avascular necrosis of left hip. Increase IVF @ 125 cc/hr Pain Medication Jersey Bearden MD May 04, 2019 12:45
--- NOTE | 2019-05-04 14:51 | NUR ---
RD ASSESSMENT & RECOMMENDATIONS SEE CARE ACTIVITY FOR COMPLETE ASSESSMENT DAILY ESTIMATED NEEDS: Needs based on Obese, pulmonary 76.7kg abw 20-25 kcals/kg 5482-4509 total kcals 1-1.5 g protein/kg 77-116 g total protein 25-30 mL/kg 6984-8073 total fluid mLs NUTRITION DIAGNOSIS: 1) Obesity etiology unknown as evidenced by BMI >40, pt is 175% [place] Body Weight. 2) Altered nutrition related lab values r/t clinical status, sickle cell crisis, low hgb 9.1, elev LDH 255, elev T bili 1.4. CURRENT DIET:Regular PO DIET RECOMMENDATIONS: Low NA/ Low FAT diet ADDITIONAL RECOMMENDATIONS: 1) Obtain a STANDING weight as able for accurate CBW 2) Check lytes daily, replete as needed
[2019-05-04 16:00] VITALS: BP 115/60
--- NOTE | 2019-05-04 18:59 | NUR ---
CASE MANAGEMENT: REVIEW SI: SICKLE CELL CRISIS T 98.5 HR 66 RR 16 BP 121/62 SAT 97% ROOM AIR WBC 11.4 H/H 9.1/29.9 LACTATED DEHY RETIC 255 COUNT 12.2 IS: D5 1/ NS IVF @ 125ML/HR HYDREA PO QD ASA 81 MG PO QD HEPARIN SUBQ Q12HR ALBUTEROL HHN Q4HR PRN MED/SURG UNIT STATUS DCP: PATIENT IS FROM HOME
--- NOTE | 2019-05-04 19:16 | NUR ---
HAND-OFF: Report given to Rodney Mann RN.
--- NOTE | 2019-05-04 19:25 | NUR ---
NURSE NOTES: Patient is in bed, awake, alert and verbal. Receiving oxygen via N/C 2L/min. No acute distress or SOB noted. IV site on left chest PortaCath patent and intact. Bed in low and locked position. Call light within reach. Patient will be monitored.
--- NOTE | 2019-05-04 19:42 | NUR ---
HAND-OFF: Report given to Roger THOMSON RN.
[2019-05-04 20:00] VITALS: BP 117/63
--- NOTE | 2019-05-04 20:29 | NUR ---
NURSE NOTES: Patient is in bed, awake, alert and verbal. N/C at 2L. No acute distress or SOB noted. IV site on right chest PermCath patent and intact. Pain medication will be given as ordered PRN. D5 1/2 NS running at 125 ml/hr. Bed in low and locked position. Call light within reach. Patient will be monitored. Trainee, Zoya Montgomery RN will be assisting in the care of this patient.
[2019-05-04] MEDS: Docusate 100mg cap ORAL SCH (21:45)
[2019-05-05] VITALS: BP 129/68
[2019-05-05] MEDS: DiphenhydrAMINE 50mg/ml Inj IVP PRN ×7 (01:30→21:08)
[2019-05-05] MEDS: D5 1/2NS 1,000 ML IV SCH ×3 (01:31→18:15)
[2019-05-05 04:00] VITALS: BP 135/86
--- NOTE | 2019-05-05 07:04 | NUR ---
NURSE NOTES: Received patient in bed asleep. No SOB or cardiac distress. Brenda cath intact, no s/s of infiltration, dressing intact. With O2 via nasal cannula. Kept head of bed elevated. Bed kept in lowest position and locked. Call light within reach. Will continue plan of care.
--- NOTE | 2019-05-05 07:04 | NUR ---
HAND-OFF: Report given to Neo Mayes RN.
[2019-05-05 08:00] VITALS: BP 125/71
[2019-05-05 08:06] LABS: BASOPHILS % (AUTO) 1.4 % (0.0-2.0); EOSINOPHILS % (AUTO) 3.5 % (0.0-3.0); HEMATOCRIT 29.1 % (42.0-52.0); LYMPHOCYTES % (AUTO) 54.9 % (20.0-45.0); MEAN CORPUSCULAR VOLUME 81 FL (80-99); MONOCYTES % (AUTO) 5.5 % (1.0-10.0); NEUTROPHILS % (AUTO) 34.7 % (45.0-75.0); PLATELET COUNT 289 K/UL (150-450); RED BLOOD COUNT 3.58 M/UL (4.70-6.10); RED CELL DISTRIBUTION WIDTH 17.6 % (11.6-14.8); WHITE BLOOD COUNT 16.9 K/UL (4.8-10.8)
[2019-05-05] MEDS: Docusate 100mg cap ORAL SCH ×2 (08:21→21:04)
[2019-05-05] MEDS: Aspirin Baby 81mg ORAL SCH (08:21)
[2019-05-05] MEDS: Hydroxyurea 500mg cap ORAL SCH (08:21)
[2019-05-05] MEDS: Heparin 5000 units/ml inj SUBQ SCH ×2 (08:22→21:00)
[2019-05-05 08:41] LABS: ALANINE AMINOTRANSFERASE 39 U/L (12-78); ALBUMIN 3.4 G/DL (3.4-5.0); ALBUMIN/GLOBULIN RATIO 0.9 (1.0-2.7); ALKALINE PHOSPHATASE 92 U/L (46-116); ANION GAP 8 mmol/L (5-15); ASPARTATE AMINO TRANSFERASE 29 U/L (15-37); BILIRUBIN,TOTAL 1.2 MG/DL (0.2-1.0); BLOOD UREA NITROGEN 3 mg/dL (7-18); CALCIUM 8.6 MG/DL (8.5-10.1); CARBON DIOXIDE 28 MMOL/L (21-32); CHLORIDE 106 MMOL/L (98-107); CREATININE 0.5 MG/DL (0.55-1.30); LACTATE DEHYDROGENASE 232 U/L (81-234); PHOSPHORUS 4.3 MG/DL (2.5-4.9); POTASSIUM 3.6 MMOL/L (3.5-5.1); SODIUM 141 MMOL/L (136-145)
[2019-05-05 08:42] LABS: BILIRUBIN,DIRECT 0.3 MG/DL (0.0-0.3)
[2019-05-05] MEDS: Wixela 250/50 Inhaler - 60 dose INH SCH (09:42)
[2019-05-05 12:00] VITALS: BP 125/64
[2019-05-05] MEDS ORDERED: D5 1/2NS 1000ml IV ONE (14:42)
[2019-05-05 16:00] VITALS: BP 117/65
--- NOTE | 2019-05-05 16:56 | Internal Med Progress Note ---
Subjective Date of Service: May 05, 2019 Physician Name Rubalcava,Edilson Attending Physician Jersey Bearden MD Current Medications Medications (Trade) Dose Ordered Sig/Arianne Route PRN Reason Start Time Stop Time Status Last Admin Dose Admin Albuterol/ Ipratropium (Albuterol/ Ipratropium) 3 ml Q4H PRN HHN Shortness of Breath 05/02/19 00:15 05/07/19 00:14 Aspirin (ASA) 81 mg DAILY ORAL 05/02/19 09:00 06/01/19 08:59 05/05/19 08:21 Dextrose/Sodium Chloride 1,000 ml @ 125 mls/hr Q8H IV 05/04/19 12:30 06/03/19 12:29 05/05/19 10:05 Diphenhydramine HCl (Benadryl) 25 mg Q3H PRN IVP Itching 05/03/19 15:00 06/02/19 14:59 05/05/19 14:37 Docusate Sodium (Colace) 100 mg Q12HR ORAL 05/04/19 21:00 06/03/19 20:59 05/05/19 08:21 Folic Acid (Folate) 1 mg DAILY ORAL 05/02/19 09:00 06/01/19 08:59 05/05/19 08:21 Heparin Sodium (Porcine) (Heparin 5000 units/ml) 5,000 units EVERY 12 HOURS SUBQ 05/02/19 09:00 06/01/19 08:59 05/05/19 08:22 Hydromorphone HCl (Dilaudid) 1 mg Q4H PRN IVP For Pain 05/02/19 00:45 05/09/19 00:44 Hydromorphone HCl (Dilaudid) 3 mg Q3H PRN IVP Severe Pain (Pain Scale 7-10) 05/03/19 14:56 05/10/19 14:55 05/05/19 14:37 Hydroxyurea (Hydrea) 1,500 mg DAILY ORAL 05/02/19 09:00 05/07/19 08:59 05/05/19 08:21 Ondansetron HCl (Zofran) 4 mg Q4HR PRN IVP Nausea & Vomiting 05/02/19 00:15 06/01/19 00:14 Salmeterol Xinafoate/ Fluticasone (Advair 250/50 Diskus) 1 puffs BID INH 05/02/19 09:00 06/01/19 08:59 05/05/19 09:42 Allergies: Coded Allergies: CAPSAICIN (Verified Allergy, Unknown, 11/23/18) CEFTRIAXONE (Verified Allergy, Unknown, 11/23/18) IOPAMIDOL (Unverified Allergy, Unknown, 01/01/19) Uncoded Allergies: IV CONTRAST (Allergy, Unknown, 01/01/19) CONTRAST (Adverse Reaction, Severe, Rash, 06/23/16) RADIOCONTRAST - RASH, ITCHING ROS Limited/Unobtainable: No Constitutional: Reports: no symptoms HEENT: Reports: no symptoms Cardiovascular: Reports: chest pain Respiratory: Reports: no symptoms Gastrointestinal/Abdominal: Reports: no symptoms Genitourinary: Reports: no symptoms Neurologic/Psychiatric: Reports: no symptoms Subjective 23 YO M with history of sickle cell dis admitted with chest pain and near syncope. Cover for Int Franky-Dr Bearden Objective Last Vital Signs Date Time Temp Pulse Resp B/P (MAP) Pulse Ox O2 Delivery O2 Flow Rate FiO2 05/05/19 16:00 99.2 64 21 117/65 (82) 100 05/05/19 09:43 Room Air 21 05/05/19 09:42 2.0 Laboratory Tests Test 05/05/19 05:45 White Blood Count 16.9 K/UL (4.8-10.8) H Red Blood Count 3.58 M/UL (4.70-6.10) L Hemoglobin 9.0 G/DL (14.2-18.0) L Hematocrit 29.1 % (42.0-52.0) L Mean Corpuscular Volume 81 FL (80-99) Mean Corpuscular Hemoglobin 25.3 PG (27.0-31.0) L Mean Corpuscular Hemoglobin Concent 31.1 G/DL (32.0-36.0) L Red Cell Distribution Width 17.6 % (11.6-14.8) H Platelet Count 289 K/UL (150-450) Mean Platelet Volume 6.6 FL (6.5-10.1) Neutrophils (%) (Auto) 34.7 % (45.0-75.0) L Lymphocytes (%) (Auto) 54.9 % (20.0-45.0) H Monocytes (%) (Auto) 5.5 % (1.0-10.0) Eosinophils (%) (Auto) 3.5 % (0.0-3.0) H Basophils (%) (Auto) 1.4 % (0.0-2.0) Erythrocyte Sedimentation Rate 8 MM/HR (0-15) Reticulocyte Count 8.9 % (0.5-2.0) H Sodium Level 141 MMOL/L (136-145) Potassium Level 3.6 MMOL/L (3.5-5.1) Chloride Level 106 MMOL/L (98-107) Carbon Dioxide Level 28 MMOL/L (21-32) Anion Gap 8 mmol/L (5-15) Blood Urea Nitrogen 3 mg/dL (7-18) L Creatinine 0.5 MG/DL (0.55-1.30) L Estimat Glomerular Filtration Rate > 60 mL/min (>60) Glucose Level 75 MG/DL (74-106) Calcium Level 8.6 MG/DL (8.5-10.1) Phosphorus Level 4.3 MG/DL (2.5-4.9) Magnesium Level 2.1 MG/DL (1.8-2.4) Total Bilirubin 1.2 MG/DL (0.2-1.0) H Direct Bilirubin 0.3 MG/DL (0.0-0.3) Aspartate Amino Transf (AST/SGOT) 29 U/L (15-37) Alanine Aminotransferase (ALT/SGPT) 39 U/L (12-78) Alkaline Phosphatase 92 U/L (46-116) Lactate Dehydrogenase 232 U/L (81-234) Total Protein 7.2 G/DL (6.4-8.2) Albumin 3.4 G/DL (3.4-5.0) Globulin 3.8 g/dL Albumin/Globulin Ratio 0.9 (1.0-2.7) L Intake and Output 05/04/19 05/05/19 19:00 07:00 Intake Total 2125 ml 1800 ml Output Total 1500 ml Balance 2125 ml 300 ml Intake Oral 1000 ml 800 ml IV Total 1125 ml 1000 ml Output Urine Total 1500 ml # Voids 4 Objective PHYSICAL EXAMINATION: GENERAL: The patient is a well-developed and well-nourished male, in moderate pain. HEENT: Eyes, pupils are equal and responsive to light and accommodation. Extraocular movements intact. NECK: Supple without lymphadenopathy. CHEST: Lungs are clear to auscultation bilaterally without wheezes or rales. CARDIOVASCULAR: Regular rhythm and rate. S1, S2 normal without murmurs, rubs, or gallops. ABDOMEN: Soft, nontender, and nondistended. Positive bowel sounds. No evidence of hepatosplenomegaly. Currently, no rebound or guarding. EXTREMITIES: Negative for clubbing, cyanosis, or edema. RECTAL/GENITAL: Not performed. NEUROLOGIC: Cranial nerves II through XII are grossly intact without focal deficits. Motor strength is 5/5 bilaterally. Deep tendon reflexes are 2+ plantar. Assessment/Plan Assessment/Plan ASSESSMENT: This is a 23-year-old male with: 1. Chest pain. 2. Near syncope. 3. Sickle cell disease. 4. Beta thalassemia. 5. Sickle cell anemia. 6. Asthma. 7. Avascular necrosis of the left hip. TREATMENT: 1. Syncopal episode. This may be secondary to vasovagal versus cerebrovascular accident. An MRI of the brain is pending. Carotid duplex Dopplers are pending. 2. Chest pain. An initial troponin level was negative. A Cardiology consultation has been obtained with Dr. Dane Dickey. 3. Sickle cell disease/beta thalassemia. A Hematology-Oncology consultation has been obtained with Dr. Davenport. The patient is followed as an outpatient by Dr. Kerline Davenport. We will follow recommendations of Hematology-Oncology. The patient is currently receiving pain medication with intravenous Dilaudid. 4. Asthma. Continue albuterol metered-dose inhaler and Advair as above. 5. Avascular necrosis of left hip. Edilson Rubalcava MD May 05, 2019 16:56
--- NOTE | 2019-05-05 19:44 | NUR ---
HAND-OFF: Report given to Ashley.
--- NOTE | 2019-05-05 19:58 | NUR ---
NURSE NOTES: Pt received in chair, awake alert, no c/o pain or signs of distress, able to make needs known, call light within reach, will continue to monitor.
[2019-05-05 20:00] VITALS: BP 125/72
[2019-05-06] VITALS: BP 128/66
[2019-05-06] MEDS: DiphenhydrAMINE 50mg/ml Inj IVP PRN ×8 (00:40→23:30)
[2019-05-06] MEDS: D5 1/2NS 1,000 ML IV SCH ×3 (02:21→19:01)
[2019-05-06 04:00] VITALS: BP 124/67
[2019-05-06 07:30] LABS: HEMATOCRIT 29.4 % (42.0-52.0); HEMOGLOBIN 9.2 G/DL (14.2-18.0); MEAN CORPUSCULAR VOLUME 80 FL (80-99); PLATELET COUNT 300 K/UL (150-450); RED BLOOD COUNT 3.67 M/UL (4.70-6.10); RED CELL DISTRIBUTION WIDTH 17.5 % (11.6-14.8); WHITE BLOOD COUNT 15.8 K/UL (4.8-10.8)
[2019-05-06 07:35] LABS: ANION GAP 7 mmol/L (5-15); BLOOD UREA NITROGEN 3 mg/dL (7-18); CALCIUM 8.6 MG/DL (8.5-10.1); CARBON DIOXIDE 28 MMOL/L (21-32); CHLORIDE 105 MMOL/L (98-107); CREATININE 0.5 MG/DL (0.55-1.30); POTASSIUM 3.8 MMOL/L (3.5-5.1); SODIUM 140 MMOL/L (136-145)
--- NOTE | 2019-05-06 07:44 | NUR ---
NURSE NOTES: Received patient in bed awake, no complaints of SOB or cardiac distress. With michelet cath intact, no s/s of infiltration or bleeding, dressing intact. With complaints of generalized pain, maintained on pain management. Head of bed elevated, bed kept on lowest position and locked. Call light within reach. Will continue plan of care.
--- NOTE | 2019-05-06 07:44 | NUR ---
HAND-OFF: Report given to Myra Dai RN.
[2019-05-06 08:00] VITALS: BP 128/69
[2019-05-06] MEDS: Wixela 250/50 Inhaler - 60 dose INH SCH ×2 (09:08→19:46)
[2019-05-06] MEDS: Aspirin Baby 81mg ORAL SCH (09:19)
[2019-05-06] MEDS: Hydroxyurea 500mg cap ORAL SCH (09:19)
[2019-05-06] MEDS: Docusate 100mg cap ORAL SCH ×2 (09:19→20:03)
[2019-05-06] MEDS: Heparin 5000 units/ml inj SUBQ SCH ×2 (09:21→20:04)
[2019-05-06 12:00] VITALS: BP 121/66
--- NOTE | 2019-05-06 15:20 | Internal Med Progress Note ---
Subjective Date of Service: May 06, 2019 Physician Name Rubalcava,Edilson Attending Physician Jersey Bearden MD Current Medications Medications (Trade) Dose Ordered Sig/Arianne Route PRN Reason Start Time Stop Time Status Last Admin Dose Admin Albuterol/ Ipratropium (Albuterol/ Ipratropium) 3 ml Q4H PRN HHN Shortness of Breath 05/02/19 00:15 05/07/19 00:14 Aspirin (ASA) 81 mg DAILY ORAL 05/02/19 09:00 06/01/19 08:59 05/06/19 09:19 Dextrose/Sodium Chloride 1,000 ml @ 125 mls/hr Q8H IV 05/04/19 12:30 06/03/19 12:29 05/06/19 10:41 Diphenhydramine HCl (Benadryl) 25 mg Q3H PRN IVP Itching 05/03/19 15:00 06/02/19 14:59 05/06/19 13:33 Docusate Sodium (Colace) 100 mg Q12HR ORAL 05/04/19 21:00 06/03/19 20:59 05/06/19 09:19 Folic Acid (Folate) 1 mg DAILY ORAL 05/02/19 09:00 06/01/19 08:59 05/06/19 09:19 Heparin Sodium (Porcine) (Heparin 5000 units/ml) 5,000 units EVERY 12 HOURS SUBQ 05/02/19 09:00 06/01/19 08:59 05/06/19 09:21 Hydromorphone HCl (Dilaudid) 1 mg Q4H PRN IVP For Pain 05/02/19 00:45 05/09/19 00:44 Hydromorphone HCl (Dilaudid) 3 mg Q3H PRN IVP Severe Pain (Pain Scale 7-10) 05/03/19 14:56 05/10/19 14:55 05/06/19 13:34 Hydroxyurea (Hydrea) 1,500 mg DAILY ORAL 05/02/19 09:00 05/07/19 08:59 05/06/19 09:19 Ondansetron HCl (Zofran) 4 mg Q4HR PRN IVP Nausea & Vomiting 05/02/19 00:15 06/01/19 00:14 Salmeterol Xinafoate/ Fluticasone (Advair 250/50 Diskus) 1 puffs BID INH 05/02/19 09:00 06/01/19 08:59 05/06/19 09:08 Allergies: Coded Allergies: CAPSAICIN (Verified Allergy, Unknown, 11/23/18) CEFTRIAXONE (Verified Allergy, Unknown, 11/23/18) IOPAMIDOL (Unverified Allergy, Unknown, 01/01/19) Uncoded Allergies: IV CONTRAST (Allergy, Unknown, 01/01/19) CONTRAST (Adverse Reaction, Severe, Rash, 06/23/16) RADIOCONTRAST - RASH, ITCHING ROS Limited/Unobtainable: No Constitutional: Reports: no symptoms HEENT: Reports: no symptoms Cardiovascular: Reports: no symptoms Respiratory: Reports: no symptoms Gastrointestinal/Abdominal: Reports: no symptoms Genitourinary: Reports: no symptoms Neurologic/Psychiatric: Reports: no symptoms Subjective 23 YO M with history of sickle cell dis admitted with chest pain and near syncope. Cover for Int Med-Dr Bearden. C/o cough-Worried about asthma Objective Last Vital Signs Date Time Temp Pulse Resp B/P (MAP) Pulse Ox O2 Delivery O2 Flow Rate FiO2 05/06/19 12:00 98.0 60 20 121/66 (84) 97 05/06/19 09:11 Nasal Cannula 2.0 28 Laboratory Tests Test 05/06/19 07:00 White Blood Count 15.8 K/UL (4.8-10.8) H Red Blood Count 3.67 M/UL (4.70-6.10) L Hemoglobin 9.2 G/DL (14.2-18.0) L Hematocrit 29.4 % (42.0-52.0) L Mean Corpuscular Volume 80 FL (80-99) Mean Corpuscular Hemoglobin 25.1 PG (27.0-31.0) L Mean Corpuscular Hemoglobin Concent 31.4 G/DL (32.0-36.0) L Red Cell Distribution Width 17.5 % (11.6-14.8) H Platelet Count 300 K/UL (150-450) Mean Platelet Volume 6.9 FL (6.5-10.1) Neutrophils (%) (Auto) % (45.0-75.0) Lymphocytes (%) (Auto) % (20.0-45.0) Monocytes (%) (Auto) % (1.0-10.0) Eosinophils (%) (Auto) % (0.0-3.0) Basophils (%) (Auto) % (0.0-2.0) Differential Total Cells Counted 100 Neutrophils % (Manual) 40 % (45-75) L Lymphocytes % (Manual) 45 % (20-45) Monocytes % (Manual) 10 % (1-10) Eosinophils % (Manual) 5 % (0-3) H Basophils % (Manual) 0 % (0-2) Band Neutrophils 0 % (0-8) Nucleated Red Blood Cells 10 /100 WBC Platelet Estimate Adequate Platelet Morphology Normal Hypochromasia 2+ Anisocytosis 1+ Sodium Level 140 MMOL/L (136-145) Potassium Level 3.8 MMOL/L (3.5-5.1) Chloride Level 105 MMOL/L (98-107) Carbon Dioxide Level 28 MMOL/L (21-32) Anion Gap 7 mmol/L (5-15) Blood Urea Nitrogen 3 mg/dL (7-18) L Creatinine 0.5 MG/DL (0.55-1.30) L Estimat Glomerular Filtration Rate > 60 mL/min (>60) Glucose Level 92 MG/DL (74-106) Calcium Level 8.6 MG/DL (8.5-10.1) Intake and Output 05/05/19 05/06/19 19:00 07:00 Intake Total 2500 ml 4875 ml Output Total 800 ml Balance 2500 ml 4075 ml Intake Oral 1500 ml 1500 ml IV Total 1000 ml 3375 ml Output Urine Total 800 ml # Voids 2 1 # Bowel Movements 1 1 Objective PHYSICAL EXAMINATION: GENERAL: The patient is a well-developed and well-nourished male, in moderate pain. HEENT: Eyes, pupils are equal and responsive to light and accommodation. Extraocular movements intact. NECK: Supple without lymphadenopathy. CHEST: Lungs are clear to auscultation bilaterally without wheezes or rales. CARDIOVASCULAR: Regular rhythm and rate. S1, S2 normal without murmurs, rubs, or gallops. ABDOMEN: Soft, nontender, and nondistended. Positive bowel sounds. No evidence of hepatosplenomegaly. Currently, no rebound or guarding. EXTREMITIES: Negative for clubbing, cyanosis, or edema. RECTAL/GENITAL: Not performed. NEUROLOGIC: Cranial nerves II through XII are grossly intact without focal deficits. Motor strength is 5/5 bilaterally. Deep tendon reflexes are 2+ plantar. Assessment/Plan Assessment/Plan ASSESSMENT: This is a 23-year-old male with: 1. Chest pain. 2. Near syncope. 3. Sickle cell disease. 4. Beta thalassemia. 5. Sickle cell anemia. 6. Asthma. 7. Avascular necrosis of the left hip. TREATMENT: 1. Syncopal episode. This may be secondary to vasovagal versus cerebrovascular accident. An MRI of the brain is pending. Carotid duplex Dopplers are pending. 2. Chest pain. An initial troponin level was negative. A Cardiology consultation has been obtained with Dr. Dane Dickey. 3. Sickle cell disease/beta thalassemia. A Hematology-Oncology consultation has been obtained with Dr. Davenport. The patient is followed as an outpatient by Dr. Kerline Davenport. We will follow recommendations of Hematology-Oncology. The patient is currently receiving pain medication with intravenous Dilaudid. 4. Asthma. Continue albuterol metered-dose inhaler and Advair as above. Start albuterol nebs prn 5. Avascular necrosis of left hip. Edilson Rubalcava MD May 06, 2019 15:20
[2019-05-06] MEDS ORDERED: Albuterol ud Inhalation HHN PRN (15:30)
[2019-05-06 16:00] VITALS: BP 121/61
--- NOTE | 2019-05-06 19:19 | NUR ---
HAND-OFF: Report given to Ashley.
--- NOTE | 2019-05-06 19:28 | NUR ---
NURSE NOTES: Pt received in bed, alert and oriented, able to make needs known,call light within reach, IV fluids running, IV intact, will continue to monitor.
[2019-05-06 20:00] VITALS: BP 133/98
[2019-05-06] MEDS: Dyna-Hex 2% Top Sol 2oz TOPIC SCH (20:03)
[2019-05-07] VITALS: BP 161/81
[2019-05-07] MEDS: DiphenhydrAMINE 50mg/ml Inj IVP PRN ×7 (02:34→21:56)
[2019-05-07] MEDS: D5 1/2NS 1,000 ML IV SCH ×3 (03:31→19:59)
[2019-05-07 04:00] VITALS: BP 115/72
[2019-05-07 06:08] LABS: HEMATOCRIT 28.3 % (42.0-52.0); MEAN CORPUSCULAR VOLUME 79 FL (80-99); PLATELET COUNT 311 K/UL (150-450); RED BLOOD COUNT 3.57 M/UL (4.70-6.10); RED CELL DISTRIBUTION WIDTH 17.4 % (11.6-14.8); WHITE BLOOD COUNT 14.1 K/UL (4.8-10.8)
[2019-05-07 06:13] LABS: ANION GAP 3 mmol/L (5-15); BLOOD UREA NITROGEN 3 mg/dL (7-18); CALCIUM 8.6 MG/DL (8.5-10.1); CARBON DIOXIDE 32 MMOL/L (21-32); CHLORIDE 106 MMOL/L (98-107); CREATININE 0.5 MG/DL (0.55-1.30); POTASSIUM 3.7 MMOL/L (3.5-5.1); SODIUM 141 MMOL/L (136-145)
--- NOTE | 2019-05-07 07:26 | NUR ---
HAND-OFF: Report given to EDU Jade.
--- NOTE | 2019-05-07 07:35 | NUR ---
NURSE NOTES: Received patient on bed, awake. Portacath access intact and patent. Bed in low and locked position, call light in reach. No signs of respiratory distress or pain. Room board updated, will continue to monitor.
[2019-05-07 08:49] VITALS: BP 136/62
[2019-05-07] MEDS: Docusate 100mg cap ORAL SCH ×2 (09:00→19:59)
[2019-05-07] MEDS: Aspirin Baby 81mg ORAL SCH (09:00)
[2019-05-07] MEDS: Heparin 5000 units/ml inj SUBQ SCH ×2 (09:06→19:58)
[2019-05-07] MEDS: Wixela 250/50 Inhaler - 60 dose INH SCH ×2 (09:41→20:19)
[2019-05-07 12:00] VITALS: BP 120/69
[2019-05-07 16:00] VITALS: BP 107/51
--- NOTE | 2019-05-07 16:58 | NUR ---
CASE MANAGEMENT: REVIEW 05/05/2019 SI:HB-SS DISEASE W/ CRISIS. T 99 HR 56 RR 20 B/P 125/64 SATS 100% ON RA LABS: WBC 16.9 BUN 3 CR 0.5 TBILI 1.2 IS: IVF @ 125 mL/HR ASA PO QD MED/SURG PLAN OF CARE: MRI of the brain is pending. Carotid duplex Dopplers are pending. 05/06/2019 SI:HB-SS DISEASE W/ CRISIS. T 98.3 HR 68 RR 20 B/P 128/69 SATS 99% ON 2L/NC WBC 15.8 BUN 3 CR 0.5 IS: IVF @ 125 mL/HR ASA PO QD HEAD CT (-) MED/SURG 05/07/2019 SI:HB-SS DISEASE W/ CRISIS. T 98.3 HR 68 RR 20 B/P 128/69 SATS 100% ON 2L/NC BUN 3 CR 0.5 IS: IVF @ 125 mL/HR ASA PO QD MED/SURG
--- NOTE | 2019-05-07 19:00 | NUR ---
NURSE NOTES: Received a report from EDU Jade. Pt is in stable condition. AAOX4. Able to make needs known. Uses nasal cannula 2L/min. Has a R chest port-a-cath, is patent. Bed in lowest position. Bed alarm is on. Call light within reach. Will continue to monitor.
[2019-05-07] MEDS: Dyna-Hex 2% Top Sol 2oz TOPIC SCH (19:58)
[2019-05-07 20:00] VITALS: BP 138/69
--- NOTE | 2019-05-07 20:38 | Internal Med Progress Note ---
Subjective Date of Service: May 07, 2019 Physician Name Edilson Rubalcava Attending Physician Jersey Bearden MD Current Medications Medications (Trade) Dose Ordered Sig/Arianne Route PRN Reason Start Time Stop Time Status Last Admin Dose Admin Albuterol Sulfate (Proventil) 2.5 mg Q4H PRN HHN Shortness of Breath 05/06/19 15:30 05/11/19 15:29 05/07/19 13:38 Aspirin (ASA) 81 mg DAILY ORAL 05/02/19 09:00 06/01/19 08:59 05/07/19 09:00 Chlorhexidine Gluconate (Jihan-Hex 2%) 1 applic DAILY@2000 TOPIC 05/06/19 20:00 06/05/19 19:59 05/07/19 19:58 Dextrose/Sodium Chloride 1,000 ml @ 125 mls/hr Q8H IV 05/04/19 12:30 06/03/19 12:29 05/07/19 19:59 Diphenhydramine HCl (Benadryl) 25 mg Q3H PRN IVP Itching 05/03/19 15:00 06/02/19 14:59 05/07/19 18:45 Docusate Sodium (Colace) 100 mg Q12HR ORAL 05/04/19 21:00 06/03/19 20:59 05/07/19 19:59 Folic Acid (Folate) 1 mg DAILY ORAL 05/02/19 09:00 06/01/19 08:59 05/07/19 09:00 Heparin Sodium (Porcine) (Heparin 5000 units/ml) 5,000 units EVERY 12 HOURS SUBQ 05/02/19 09:00 06/01/19 08:59 05/07/19 09:06 Hydromorphone HCl (Dilaudid) 1 mg Q4H PRN IVP For Pain 05/02/19 00:45 05/09/19 00:44 Hydromorphone HCl (Dilaudid) 3 mg Q3H PRN IVP Severe Pain (Pain Scale 7-10) 05/03/19 14:56 05/10/19 14:55 05/07/19 18:45 Ondansetron HCl (Zofran) 4 mg Q4HR PRN IVP Nausea & Vomiting 05/02/19 00:15 06/01/19 00:14 Salmeterol Xinafoate/ Fluticasone (Advair 250/50 Diskus) 1 puffs BID INH 05/02/19 09:00 06/01/19 08:59 05/07/19 20:19 Allergies: Coded Allergies: CAPSAICIN (Verified Allergy, Unknown, 11/23/18) CEFTRIAXONE (Verified Allergy, Unknown, 11/23/18) IOPAMIDOL (Unverified Allergy, Unknown, 01/01/19) Uncoded Allergies: IV CONTRAST (Allergy, Unknown, 01/01/19) CONTRAST (Adverse Reaction, Severe, Rash, 06/23/16) RADIOCONTRAST - RASH, ITCHING ROS Limited/Unobtainable: No Constitutional: Reports: no symptoms HEENT: Reports: no symptoms Cardiovascular: Reports: chest pain Respiratory: Reports: cough Gastrointestinal/Abdominal: Reports: no symptoms Genitourinary: Reports: no symptoms Neurologic/Psychiatric: Reports: no symptoms Subjective 23 YO M with history of sickle cell dis admitted with chest pain and near syncope. Cover for Int Med-Dr Bearden. C/o cough-Worried about asthma Objective Last Vital Signs Date Time Temp Pulse Resp B/P (MAP) Pulse Ox O2 Delivery O2 Flow Rate FiO2 05/07/19 20:20 99 Nasal Cannula 2.0 28 05/07/19 20:00 99.0 62 18 138/69 (92) Laboratory Tests Test 05/07/19 05:00 White Blood Count 14.1 K/UL (4.8-10.8) H Red Blood Count 3.57 M/UL (4.70-6.10) L Hemoglobin 9.0 G/DL (14.2-18.0) L Hematocrit 28.3 % (42.0-52.0) L Mean Corpuscular Volume 79 FL (80-99) L Mean Corpuscular Hemoglobin 25.3 PG (27.0-31.0) L Mean Corpuscular Hemoglobin Concent 31.9 G/DL (32.0-36.0) L Red Cell Distribution Width 17.4 % (11.6-14.8) H Platelet Count 311 K/UL (150-450) Mean Platelet Volume 6.7 FL (6.5-10.1) Neutrophils (%) (Auto) % (45.0-75.0) Lymphocytes (%) (Auto) % (20.0-45.0) Monocytes (%) (Auto) % (1.0-10.0) Eosinophils (%) (Auto) % (0.0-3.0) Basophils (%) (Auto) % (0.0-2.0) Sodium Level 141 MMOL/L (136-145) Potassium Level 3.7 MMOL/L (3.5-5.1) Chloride Level 106 MMOL/L (98-107) Carbon Dioxide Level 32 MMOL/L (21-32) Anion Gap 3 mmol/L (5-15) L Blood Urea Nitrogen 3 mg/dL (7-18) L Creatinine 0.5 MG/DL (0.55-1.30) L Estimat Glomerular Filtration Rate > 60 mL/min (>60) Glucose Level 95 MG/DL (74-106) Calcium Level 8.6 MG/DL (8.5-10.1) Intake and Output 05/06/19 05/07/19 19:00 07:00 Intake Total 2975 ml 2325 ml Balance 2975 ml 2325 ml Intake Oral 1600 ml 1200 ml IV Total 1375 ml 1125 ml # Voids 6 4 # Bowel Movements 1 Objective PHYSICAL EXAMINATION: GENERAL: The patient is a well-developed and well-nourished male, in moderate pain. HEENT: Eyes, pupils are equal and responsive to light and accommodation. Extraocular movements intact. NECK: Supple without lymphadenopathy. CHEST: Lungs are clear to auscultation bilaterally without wheezes or rales. CARDIOVASCULAR: Regular rhythm and rate. S1, S2 normal without murmurs, rubs, or gallops. ABDOMEN: Soft, nontender, and nondistended. Positive bowel sounds. No evidence of hepatosplenomegaly. Currently, no rebound or guarding. EXTREMITIES: Negative for clubbing, cyanosis, or edema. RECTAL/GENITAL: Not performed. NEUROLOGIC: Cranial nerves II through XII are grossly intact without focal deficits. Motor strength is 5/5 bilaterally. Deep tendon reflexes are 2+ plantar. Assessment/Plan Assessment/Plan ASSESSMENT: This is a 23-year-old male with: 1. Chest pain. 2. Near syncope. 3. Sickle cell disease. 4. Beta thalassemia. 5. Sickle cell anemia. 6. Asthma. 7. Avascular necrosis of the left hip. 8. Bronchitis TREATMENT: 1. Syncopal episode. This may be secondary to vasovagal versus cerebrovascular accident. An MRI of the brain is pending. Carotid duplex Dopplers are pending. 2. Chest pain. An initial troponin level was negative. A Cardiology consultation has been obtained with Dr. Dane Dickey. 3. Sickle cell disease/beta thalassemia. A Hematology-Oncology consultation has been obtained with Dr. Davenport. The patient is followed as an outpatient by Dr. Kerline Davenport. We will follow recommendations of Hematology-Oncology. The patient is currently receiving pain medication with intravenous Dilaudid. 4. Asthma. Continue albuterol metered-dose inhaler and Advair as above. Start albuterol nebs prn 5. Avascular necrosis of left hip. 6. Albuterol nebs prn Edilson Rubalcava MD May 07, 2019 20:38
--- NOTE | 2019-05-07 21:00 | NUR ---
NURSE NOTES: Pt verbalized that he will use the Jihan-Hex later in the morning.
[2019-05-07 23:09] LABS: APPEARANCE,URINE CLEAR; BILIRUBIN, URINE NEGATIVE (NEGATIVE); COLOR,URINE PALE YELLOW; GLUCOSE, URINE (UA) NEGATIVE (NEGATIVE); KETONES,URINE NEGATIVE (NEGATIVE); LEUKOCYTE ESTERASE ,URINE NEGATIVE (NEGATIVE); NITRITE,URINE NEGATIVE (NEGATIVE); PH,URINE 7 (4.5-8.0); PROTEIN,URINE NEGATIVE (NEGATIVE); UROBILINOGEN,URINE NORMAL MG/DL (0.0-1.0)
[2019-05-08] VITALS: BP 145/74
[2019-05-08] MEDS: DiphenhydrAMINE 50mg/ml Inj IVP PRN ×8 (01:10→23:36)
[2019-05-08 04:00] VITALS: BP 127/77
[2019-05-08] MEDS: D5 1/2NS 1,000 ML IV SCH ×3 (04:21→20:20)
[2019-05-08 06:18] LABS: HEMATOCRIT 27.9 % (42.0-52.0); HEMOGLOBIN 8.9 G/DL (14.2-18.0); MEAN CORPUSCULAR VOLUME 80 FL (80-99); PLATELET COUNT 308 K/UL (150-450); RED CELL DISTRIBUTION WIDTH 17.6 % (11.6-14.8)
--- NOTE | 2019-05-08 07:06 | NUR ---
HAND-OFF: Report given to Klaudia Rao RN.
[2019-05-08 07:40] LABS: ALANINE AMINOTRANSFERASE 46 U/L (12-78); ALBUMIN 3.4 G/DL (3.4-5.0); ALBUMIN/GLOBULIN RATIO 0.9 (1.0-2.7); ALKALINE PHOSPHATASE 89 U/L (46-116); ANION GAP 7 mmol/L (5-15); ASPARTATE AMINO TRANSFERASE 27 U/L (15-37); BILIRUBIN,TOTAL 1.2 MG/DL (0.2-1.0); BLOOD UREA NITROGEN 3 mg/dL (7-18); CALCIUM 8.7 MG/DL (8.5-10.1); CARBON DIOXIDE 29 MMOL/L (21-32); CHLORIDE 105 MMOL/L (98-107); CREATININE 0.5 MG/DL (0.55-1.30); LACTATE DEHYDROGENASE 219 U/L (81-234); PHOSPHORUS 4.1 MG/DL (2.5-4.9); POTASSIUM 3.9 MMOL/L (3.5-5.1); SODIUM 141 MMOL/L (136-145)
[2019-05-08 07:41] LABS: BILIRUBIN,DIRECT 0.3 MG/DL (0.0-0.3)
[2019-05-08 08:00] VITALS: BP 128/65
--- NOTE | 2019-05-08 08:01 | NUR ---
NURSE NOTES: received report from EDU Miller. patient in bed. alert. oriented. verbally responsive. no respiratory distress noted. c/o pain on arms and legs. given pain medications as ordered. portal cath on rt upper chest. dressing intact. running fluid. bed in the lowest position. call light within reach. will continue to provide plan of care.
[2019-05-08] MEDS: Wixela 250/50 Inhaler - 60 dose INH SCH ×2 (08:28→18:17)
[2019-05-08] MEDS: Docusate 100mg cap ORAL SCH ×2 (08:59→20:20)
[2019-05-08] MEDS: Aspirin Baby 81mg ORAL SCH (08:59)
[2019-05-08] MEDS: Heparin 5000 units/ml inj SUBQ SCH ×2 (09:00→20:20)
[2019-05-08 12:00] VITALS: BP 130/70
--- NOTE | 2019-05-08 13:37 | Pulmonology Progress Note ---
Assessment/Plan Problems: (1) Sickle cell crisis (2) Anemia Assessment/Plan increase if fluid Reti count is high as well continue iv fluids and pain meds LDH, reti count, bilirubin are decreasing, ID called, don't think pt needs antibiotics will dc in am if ok with ID Subjective ROS Limited/Unobtainable: No Interval Events: felt warm and thinks he had fever, not documented Allergies: Coded Allergies: CAPSAICIN (Verified Allergy, Unknown, 11/23/18) CEFTRIAXONE (Verified Allergy, Unknown, 11/23/18) IOPAMIDOL (Unverified Allergy, Unknown, 01/01/19) Uncoded Allergies: IV CONTRAST (Allergy, Unknown, 01/01/19) CONTRAST (Adverse Reaction, Severe, Rash, 06/23/16) RADIOCONTRAST - RASH, ITCHING Objective Last 24 Hour Vital Signs Date Time Temp Pulse Resp B/P (MAP) Pulse Ox O2 Delivery O2 Flow Rate FiO2 05/08/19 12:00 98.4 65 19 130/70 (90) 98 05/08/19 09:00 Nasal Cannula 2.0 05/08/19 08:28 61 20 98 Nasal Cannula 2.0 28 05/08/19 08:27 98 Nasal Cannula 2.0 28 05/08/19 08:25 60 20 98 Nasal Cannula 2.0 28 05/08/19 08:00 98.2 60 18 128/65 (86) 98 05/08/19 04:00 98.0 59 20 127/77 (94) 98 05/08/19 00:00 98.4 65 17 145/74 (97) 99 05/07/19 22:26 99.0 05/07/19 21:00 Nasal Cannula 2.0 05/07/19 20:20 99 Nasal Cannula 2.0 28 05/07/19 20:00 99.0 62 18 138/69 (92) 98 05/07/19 16:00 98.6 65 16 107/51 (69) 97 05/07/19 14:03 88 16 99 Nasal Cannula 2.0 28 84 16 99 Intake and Output 05/07/19 05/08/19 19:00 07:00 Intake Total 2175 ml 1375 ml Balance 2175 ml 1375 ml Intake Oral 800 ml IV Total 1375 ml 1375 ml # Voids 3 General Appearance: WD/WN HEENT: normocephalic, anicteric Respiratory/Chest: chest wall non-tender, lungs clear Cardiovascular: normal peripheral pulses, regularly irregular Abdomen: non distended Genitourinary: normal external genitalia Extremities: no clubbing Laboratory Tests 05/07/19 22:00: Urine Color Pale yellow, Urine Appearance Clear, Urine pH 7, Urine Specific [place] 1.005, Urine Protein Negative, Urine Glucose (UA) Negative, Urine Ketones Negative, Urine Blood Negative, Urine Nitrite Negative, Urine Bilirubin Negative, Urine Urobilinogen Normal, Urine Leukocyte Esterase Negative, Urine RBC 0-2H, Urine WBC 0-2, Urine Squamous Epithelial Cells None, Urine Bacteria Few 05/08/19 04:00: White Blood Count 15.0H, Red Blood Count 3.50L, Hemoglobin 8.9L, Hematocrit 27.9L, Mean Corpuscular Volume 80, Mean Corpuscular Hemoglobin 25.4L, Mean Corpuscular Hemoglobin Concent 31.9L, Red Cell Distribution Width 17.6H, Platelet Count 308, Mean Platelet Volume 6.1L, Neutrophils (%) (Auto) , Lymphocytes (%) (Auto) , Monocytes (%) (Auto) , Eosinophils (%) (Auto) , Basophils (%) (Auto) , Differential Total Cells Counted 100, Neutrophils % ( Manual) 46, Lymphocytes % (Manual) 41, Monocytes % (Manual) 2, Eosinophils % ( Manual) 10H, Basophils % (Manual) 1, Band Neutrophils 0, Nucleated Red Blood Cells 9, Platelet Estimate Adequate, Platelet Morphology Normal, Basophilic Stippling 2+, Anisocytosis 1+, Target Cells 2+, Erythrocyte Sedimentation Rate 10, Reticulocyte Count 4.4H, Sodium Level 141, Potassium Level 3.9, Chloride Level 105, Carbon Dioxide Level 29, Anion Gap 7, Blood Urea Nitrogen 3L, Creatinine 0.5L, Estimat Glomerular Filtration Rate > 60, Glucose Level 85, Calcium Level 8.7, Phosphorus Level 4.1, Magnesium Level 1.9, Total Bilirubin 1.2H, Direct Bilirubin 0.3, Aspartate Amino Transf (AST/SGOT) 27, Alanine Aminotransferase (ALT/SGPT) 46, Alkaline Phosphatase 89, Lactate Dehydrogenase 219, Total Protein 7.3, Albumin 3.4, Globulin 3.9, Albumin/Globulin Ratio 0.9L Current Medications Medications (Trade) Dose Ordered Sig/Arianne Route PRN Reason Start Time Stop Time Status Last Admin Dose Admin Albuterol Sulfate (Proventil) 2.5 mg Q4H PRN HHN Shortness of Breath 05/06/19 15:30 05/11/19 15:29 05/07/19 13:38 Aspirin (ASA) 81 mg DAILY ORAL 05/02/19 09:00 06/01/19 08:59 05/08/19 08:59 Chlorhexidine Gluconate (Jihan-Hex 2%) 1 applic DAILY@2000 TOPIC 05/06/19 20:00 06/05/19 19:59 05/07/19 19:58 Dextrose/Sodium Chloride 1,000 ml @ 125 mls/hr Q8H IV 05/04/19 12:30 06/03/19 12:29 05/08/19 11:57 Diphenhydramine HCl (Benadryl) 25 mg Q3H PRN IVP Itching 05/03/19 15:00 06/02/19 14:59 05/08/19 13:29 Docusate Sodium (Colace) 100 mg Q12HR ORAL 05/04/19 21:00 06/03/19 20:59 05/08/19 08:59 Folic Acid (Folate) 1 mg DAILY ORAL 05/02/19 09:00 06/01/19 08:59 05/08/19 08:59 Heparin Sodium (Porcine) (Heparin 5000 units/ml) 5,000 units EVERY 12 HOURS SUBQ 05/02/19 09:00 06/01/19 08:59 05/07/19 09:06 Hydromorphone HCl (Dilaudid) 1 mg Q4H PRN IVP For Pain 05/02/19 00:45 05/09/19 00:44 Hydromorphone HCl (Dilaudid) 3 mg Q3H PRN IVP Severe Pain (Pain Scale 7-10) 05/03/19 14:56 05/10/19 14:55 05/08/19 13:30 Ondansetron HCl (Zofran) 4 mg Q4HR PRN IVP Nausea & Vomiting 05/02/19 00:15 06/01/19 00:14 Salmeterol Xinafoate/ Fluticasone (Advair 250/50 Diskus) 1 puffs BID INH 05/02/19 09:00 06/01/19 08:59 05/08/19 08:28 Ranjith Caicedo MD May 08, 2019 13:37
--- NOTE | 2019-05-08 14:12 | Consultation ---
Consult Note Consult Note The patient is a 23-year-old male with history of sickle cell disease and beta thalassemia, who presents with chief complaint of chest pain and sickle cell crisis and an episode of near syncopal episode and blurred vision. I was admitted with impression of near syncope. pt has penitent leukocytosis , ID cons was requested for further evaluation of the patient. pt has cough x 4 d and green sputum production REVIEW OF SYSTEMS: 10 point review was done PAST MEDICAL HISTORY: Sickle cell disease. Beta thalassemia. Asthma. 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 Capsaicin. 2. Ceftriaxone. 3. IV contrast dye. 4. Iopamidol. SOCIAL HISTORY: patient denies tobacco or alcohol use. PHYSICAL EXAMINATION: VITAL SIGNS: Temperature 98.4, respirations 18, pulse 62, and blood pressure 130/75 GENERAL: no acute distress HEENT: Extraocular movements intact. NECK: Supple without lymphadenopathy. CHEST: Lungs are clear to auscultation bilaterally without wheezes or rales. CARDIOVASCULAR: S1, S2 normal without murmurs, ABDOMEN: Soft, nontender, and nondistended. Positive bowel sounds. No evidence of hepatosplenomegaly. Currently, no rebound or guarding. EXTREMITIES: Negative for clubbing, cyanosis, or edema. LABORATORY STUDIES: Reviewed CT scan of the brain was negative for intracranial hemorrhage or mass. ASSESSMENT: This is a 23-year-old male with: Leukocytosis ( m/l 2/2 SS crisis) afebrile Probable bronchtitis , (doubt Pneum) cough and sputum CXR: Mild interstitial congestion bilaterally, Borderline cardiomegaly Chest pain, Sp Near syncope Sickle cell disease Beta thalassemia Anemia Asthma Avascular necrosis of the left hip P: Zithro # 1/ 5 ( ok to DC pt on oral Zithro to complete the course, Rx in chart ) Dw RN Monitor CBC Monitor CMP Monitor CXR sp Cx Thank you , we will follow the patient with you Damien Duke MD May 08, 2019 14:12
[2019-05-08] MEDS ORDERED: Azithromycin 250mg tab ORAL SCH (14:45)
--- NOTE | 2019-05-08 15:40 | NUR ---
[employer] CAPTAIN SI: SICKLE CELL CRISIS,LEUKOCYTOSIS T. 98.4 HR 65 RR 19 B/P 130/70 2L NC WBC 15.0 RETIC 4.4 IS: ZITHROMAX PO IVF D5NS @ 125ML/HR DILAUDID IV MED/SURG STATUS
[2019-05-08 16:00] VITALS: BP 120/59
--- NOTE | 2019-05-08 17:30 | Internal Med Progress Note ---
Subjective Date of Service: May 08, 2019 Physician Name Edilson Rubalcava Attending Physician Jersey Bearden MD Current Medications Medications (Trade) Dose Ordered Sig/Arianne Route PRN Reason Start Time Stop Time Status Last Admin Dose Admin Albuterol Sulfate (Proventil) 2.5 mg Q4H PRN HHN Shortness of Breath 05/06/19 15:30 05/11/19 15:29 05/07/19 13:38 Aspirin (ASA) 81 mg DAILY ORAL 05/02/19 09:00 06/01/19 08:59 05/08/19 08:59 Azithromycin (Zithromax) 250 mg DAILY ORAL 05/09/19 09:00 05/16/19 08:59 Chlorhexidine Gluconate (Jihan-Hex 2%) 1 applic DAILY@2000 TOPIC 05/06/19 20:00 06/05/19 19:59 05/07/19 19:58 Dextrose/Sodium Chloride 1,000 ml @ 125 mls/hr Q8H IV 05/04/19 12:30 06/03/19 12:29 05/08/19 11:57 Diphenhydramine HCl (Benadryl) 25 mg Q3H PRN IVP Itching 05/03/19 15:00 06/02/19 14:59 05/08/19 16:37 Docusate Sodium (Colace) 100 mg Q12HR ORAL 05/04/19 21:00 06/03/19 20:59 05/08/19 08:59 Folic Acid (Folate) 1 mg DAILY ORAL 05/02/19 09:00 06/01/19 08:59 05/08/19 08:59 Heparin Sodium (Porcine) (Heparin 5000 units/ml) 5,000 units EVERY 12 HOURS SUBQ 05/02/19 09:00 06/01/19 08:59 05/07/19 09:06 Hydromorphone HCl (Dilaudid) 1 mg Q4H PRN IVP For Pain 05/02/19 00:45 05/09/19 00:44 Hydromorphone HCl (Dilaudid) 3 mg Q3H PRN IVP Severe Pain (Pain Scale 7-10) 05/03/19 14:56 05/10/19 14:55 05/08/19 16:38 Ondansetron HCl (Zofran) 4 mg Q4HR PRN IVP Nausea & Vomiting 05/02/19 00:15 06/01/19 00:14 Salmeterol Xinafoate/ Fluticasone (Advair 250/50 Diskus) 1 puffs BID INH 05/02/19 09:00 06/01/19 08:59 05/08/19 08:28 Allergies: Coded Allergies: CAPSAICIN (Verified Allergy, Unknown, 11/23/18) CEFTRIAXONE (Verified Allergy, Unknown, 11/23/18) IOPAMIDOL (Unverified Allergy, Unknown, 01/01/19) Uncoded Allergies: IV CONTRAST (Allergy, Unknown, 01/01/19) CONTRAST (Adverse Reaction, Severe, Rash, 06/23/16) RADIOCONTRAST - RASH, ITCHING ROS Limited/Unobtainable: No Constitutional: Reports: no symptoms HEENT: Reports: no symptoms Cardiovascular: Reports: no symptoms Respiratory: Reports: no symptoms Gastrointestinal/Abdominal: Reports: no symptoms Genitourinary: Reports: no symptoms Neurologic/Psychiatric: Reports: no symptoms Subjective 23 YO M with history of sickle cell dis admitted with chest pain and near syncope. Cover for [facility] Med-Dr Bearden. Objective Last Vital Signs Date Time Temp Pulse Resp B/P (MAP) Pulse Ox O2 Delivery O2 Flow Rate FiO2 05/08/19 16:00 98.2 67 18 120/59 (79) 98 05/08/19 09:00 Nasal Cannula 2.0 05/08/19 08:28 28 Laboratory Tests Test 05/07/19 22:00 05/08/19 04:00 Urine Color Pale yellow Urine Appearance Clear Urine pH 7 (4.5-8.0) Urine Specific [place] 1.005 (1.005-1.035) Urine Protein Negative (NEGATIVE) Urine Glucose (UA) Negative (NEGATIVE) Urine Ketones Negative (NEGATIVE) Urine Blood Negative (NEGATIVE) Urine Nitrite Negative (NEGATIVE) Urine Bilirubin Negative (NEGATIVE) Urine Urobilinogen Normal MG/DL (0.0-1.0) Urine Leukocyte Esterase Negative (NEGATIVE) Urine RBC 0-2 /HPF (0 - 0) H Urine WBC 0-2 /HPF (0 - 0) Urine Squamous Epithelial Cells None /LPF (NONE/OCC) Urine Bacteria Few /HPF (NONE) White Blood Count 15.0 K/UL (4.8-10.8) H Red Blood Count 3.50 M/UL (4.70-6.10) L Hemoglobin 8.9 G/DL (14.2-18.0) L Hematocrit 27.9 % (42.0-52.0) L Mean Corpuscular Volume 80 FL (80-99) Mean Corpuscular Hemoglobin 25.4 PG (27.0-31.0) L Mean Corpuscular Hemoglobin Concent 31.9 G/DL (32.0-36.0) L Red Cell Distribution Width 17.6 % (11.6-14.8) H Platelet Count 308 K/UL (150-450) Mean Platelet Volume 6.1 FL (6.5-10.1) L Neutrophils (%) (Auto) % (45.0-75.0) Lymphocytes (%) (Auto) % (20.0-45.0) Monocytes (%) (Auto) % (1.0-10.0) Eosinophils (%) (Auto) % (0.0-3.0) Basophils (%) (Auto) % (0.0-2.0) Differential Total Cells Counted 100 Neutrophils % (Manual) 46 % (45-75) Lymphocytes % (Manual) 41 % (20-45) Monocytes % (Manual) 2 % (1-10) Eosinophils % (Manual) 10 % (0-3) H Basophils % (Manual) 1 % (0-2) Band Neutrophils 0 % (0-8) Nucleated Red Blood Cells 9 /100 WBC Platelet Estimate Adequate Platelet Morphology Normal Basophilic Stippling 2+ Anisocytosis 1+ Target Cells 2+ Erythrocyte Sedimentation Rate 10 MM/HR (0-15) Reticulocyte Count 4.4 % (0.5-2.0) H Sodium Level 141 MMOL/L (136-145) Potassium Level 3.9 MMOL/L (3.5-5.1) Chloride Level 105 MMOL/L (98-107) Carbon Dioxide Level 29 MMOL/L (21-32) Anion Gap 7 mmol/L (5-15) Blood Urea Nitrogen 3 mg/dL (7-18) L Creatinine 0.5 MG/DL (0.55-1.30) L Estimat Glomerular Filtration Rate > 60 mL/min (>60) Glucose Level 85 MG/DL (74-106) Calcium Level 8.7 MG/DL (8.5-10.1) Phosphorus Level 4.1 MG/DL (2.5-4.9) Magnesium Level 1.9 MG/DL (1.8-2.4) Total Bilirubin 1.2 MG/DL (0.2-1.0) H Direct Bilirubin 0.3 MG/DL (0.0-0.3) Aspartate Amino Transf (AST/SGOT) 27 U/L (15-37) Alanine Aminotransferase (ALT/SGPT) 46 U/L (12-78) Alkaline Phosphatase 89 U/L (46-116) Lactate Dehydrogenase 219 U/L (81-234) Total Protein 7.3 G/DL (6.4-8.2) Albumin 3.4 G/DL (3.4-5.0) Globulin 3.9 g/dL Albumin/Globulin Ratio 0.9 (1.0-2.7) L Intake and Output 05/07/19 05/08/19 19:00 07:00 Intake Total 2175 ml 1375 ml Balance 2175 ml 1375 ml Intake Oral 800 ml IV Total 1375 ml 1375 ml # Voids 3 Objective PHYSICAL EXAMINATION: GENERAL: The patient is a well-developed and well-nourished male, in moderate pain. HEENT: Eyes, pupils are equal and responsive to light and accommodation. Extraocular movements intact. NECK: Supple without lymphadenopathy. CHEST: Lungs are clear to auscultation bilaterally without wheezes or rales. CARDIOVASCULAR: Regular rhythm and rate. S1, S2 normal without murmurs, rubs, or gallops. ABDOMEN: Soft, nontender, and nondistended. Positive bowel sounds. No evidence of hepatosplenomegaly. Currently, no rebound or guarding. EXTREMITIES: Negative for clubbing, cyanosis, or edema. RECTAL/GENITAL: Not performed. NEUROLOGIC: Cranial nerves II through XII are grossly intact without focal deficits. Motor strength is 5/5 bilaterally. Deep tendon reflexes are 2+ plantar. Assessment/Plan Assessment/Plan ASSESSMENT: This is a 23-year-old male with: 1. Chest pain. 2. Near syncope. 3. Sickle cell disease. 4. Beta thalassemia. 5. Sickle cell anemia. 6. Asthma. 7. Avascular necrosis of the left hip. 8. Bronchitis TREATMENT: 1. Syncopal episode. This may be secondary to vasovagal versus cerebrovascular accident. An MRI of the brain is pending. Carotid duplex Dopplers are pending. 2. Chest pain. An initial troponin level was negative. A Cardiology consultation has been obtained with Dr. Dane Dickey. 3. Sickle cell disease/beta thalassemia. A Hematology-Oncology consultation has been obtained with Dr. Davenport. The patient is followed as an outpatient by Dr. Kerline Davenport. We will follow recommendations of Hematology-Oncology. The patient is currently receiving pain medication with intravenous Dilaudid. 4. Asthma. Continue albuterol metered-dose inhaler and Advair as above. Start albuterol nebs prn 5. Avascular necrosis of left hip. 6. Albuterol nebs prn Edilson Rubalcava MD May 08, 2019 17:30
--- NOTE | 2019-05-08 18:53 | NUR ---
NURSE NOTES: Received a report from Klaudia Rao RN. Pt is in stable condition. AAOX4. Able to make needs known. Uses nasal cannula 2L/min. Has a R chest port-a-cath, is patent. Bed in lowest position. Bed alarm is on. Call light within reach. Will continue to monitor.
--- NOTE | 2019-05-08 18:58 | NUR ---
HAND-OFF: Report given to EDU Miller.
[2019-05-08 20:00] VITALS: BP 140/93
[2019-05-08] MEDS: Dyna-Hex 2% Top Sol 2oz TOPIC SCH (20:19)
[2019-05-09] VITALS: BP 132/70
[2019-05-09] MEDS: DiphenhydrAMINE 50mg/ml Inj IVP PRN ×6 (02:48→20:44)
[2019-05-09 04:00] VITALS: BP 123/67
[2019-05-09] MEDS: D5 1/2NS 1,000 ML IV SCH ×4 (04:49→20:44)
[2019-05-09 05:28] LABS: BASOPHILS % (AUTO) 1.6 % (0.0-2.0); EOSINOPHILS % (AUTO) 5.9 % (0.0-3.0); HEMATOCRIT 27.7 % (42.0-52.0); HEMOGLOBIN 8.9 G/DL (14.2-18.0); LYMPHOCYTES % (AUTO) 50.8 % (20.0-45.0); MEAN CORPUSCULAR VOLUME 79 FL (80-99); MONOCYTES % (AUTO) 6.9 % (1.0-10.0); NEUTROPHILS % (AUTO) 34.8 % (45.0-75.0); PLATELET COUNT 346 K/UL (150-450); RED CELL DISTRIBUTION WIDTH 17.7 % (11.6-14.8); WHITE BLOOD COUNT 16.8 K/UL (4.8-10.8)
[2019-05-09 05:59] LABS: ALANINE AMINOTRANSFERASE 42 U/L (12-78); ALBUMIN 3.4 G/DL (3.4-5.0); ALBUMIN/GLOBULIN RATIO 0.9 (1.0-2.7); ALKALINE PHOSPHATASE 91 U/L (46-116); ANION GAP 7 mmol/L (5-15); ASPARTATE AMINO TRANSFERASE 28 U/L (15-37); BILIRUBIN,TOTAL 1.2 MG/DL (0.2-1.0); BLOOD UREA NITROGEN 5 mg/dL (7-18); CALCIUM 8.4 MG/DL (8.5-10.1); CARBON DIOXIDE 29 MMOL/L (21-32); CHLORIDE 104 MMOL/L (98-107); CREATININE 0.6 MG/DL (0.55-1.30); LACTATE DEHYDROGENASE 200 U/L (81-234); PHOSPHORUS 4.8 MG/DL (2.5-4.9); POTASSIUM 3.8 MMOL/L (3.5-5.1); SODIUM 140 MMOL/L (136-145)
[2019-05-09 06:21] LABS: BILIRUBIN,DIRECT 0.3 MG/DL (0.0-0.3)
[2019-05-09] MEDS: Wixela 250/50 Inhaler - 60 dose INH SCH ×2 (07:13→20:10)
--- NOTE | 2019-05-09 07:15 | NUR ---
HAND-OFF: Report given to EDU Rudolph.
--- NOTE | 2019-05-09 07:20 | NUR ---
NURSE NOTES: received report from EDU Miller. patient in bed. alert. oriented. verbally responsive. no respiratory distress noted. c/o pain on both arms and legs. 05/17. port a cath on rt upper chest running fluid @125. dressing intact. no s/sx of infection. bed in the lowest position and locked. call light within reach. will continue to provide plan of care.
[2019-05-09 08:00] VITALS: BP 131/69
[2019-05-09] MEDS: Aspirin Baby 81mg ORAL SCH (08:35)
[2019-05-09] MEDS: Docusate 100mg cap ORAL SCH ×2 (08:35→20:44)
[2019-05-09] MEDS: Azithromycin 250mg tab ORAL SCH (08:36)
[2019-05-09] MEDS: Heparin 5000 units/ml inj SUBQ SCH ×2 (08:36→20:54)
[2019-05-09 12:00] VITALS: BP 134/71
--- NOTE | 2019-05-09 12:30 | NUR ---
NURSE NOTES: patient seen by Dr. Caicedo. received order of increase fluid rate to NS @150/hr. order noted and carried out.
--- NOTE | 2019-05-09 13:26 | Pulmonology Progress Note ---
Assessment/Plan Problems: (1) Sickle cell crisis (2) Anemia Assessment/Plan wbc higher increase if fluid Reti count is high as well continue iv fluids and pain meds LDH, reti count, bilirubin are decreasing, ID called, don't think pt needs antibiotics will dc in am if ok with ID Subjective ROS Limited/Unobtainable: No Constitutional: Reports: no symptoms HEENT: Repors: no symptoms Respiratory: Reports: no symptoms Allergies: Coded Allergies: CAPSAICIN (Verified Allergy, Unknown, 11/23/18) CEFTRIAXONE (Verified Allergy, Unknown, 11/23/18) IOPAMIDOL (Unverified Allergy, Unknown, 01/01/19) Uncoded Allergies: IV CONTRAST (Allergy, Unknown, 01/01/19) CONTRAST (Adverse Reaction, Severe, Rash, 06/23/16) RADIOCONTRAST - RASH, ITCHING Objective Last 24 Hour Vital Signs Date Time Temp Pulse Resp B/P (MAP) Pulse Ox O2 Delivery O2 Flow Rate FiO2 05/09/19 12:00 99.3 67 16 134/71 (92) 100 05/09/19 09:00 Nasal Cannula 2.0 05/09/19 08:00 98.6 66 18 131/69 (89) 99 05/09/19 07:14 97 Room Air 21 05/09/19 04:00 98.0 60 20 123/67 (85) 97 05/09/19 00:00 98.4 75 18 132/70 (90) 96 05/08/19 21:00 Nasal Cannula 2.0 05/08/19 20:49 99.2 05/08/19 20:03 97 Room Air 21 05/08/19 20:00 99.2 75 18 140/93 (109) 99 05/08/19 16:00 98.2 67 18 120/59 (79) 98 Intake and Output 05/08/19 05/09/19 19:00 07:00 Intake Total 1937.5 ml 1375 ml Output Total 900 ml Balance 1937.5 ml 475 ml Intake Oral 500 ml IV Total 1437.5 ml 1375 ml Output Urine Total 900 ml # Voids 4 2 General Appearance: WD/WN HEENT: normocephalic, atraumatic Respiratory/Chest: lungs clear, normal breath sounds Cardiovascular: normal rate, regularly irregular Extremities: no cyanosis Skin: no rash, no ulcers Laboratory Tests 05/09/19 04:00: White Blood Count 16.8H, Red Blood Count 3.50L, Hemoglobin 8.9L, Hematocrit 27.7L, Mean Corpuscular Volume 79L, Mean Corpuscular Hemoglobin 25.4L, Mean Corpuscular Hemoglobin Concent 32.1, Red Cell Distribution Width 17.7H, Platelet Count 346, Mean Platelet Volume 7.1, Neutrophils (%) (Auto) 34.8L, Lymphocytes (%) (Auto) 50.8H, Monocytes (%) (Auto) 6.9, Eosinophils (%) (Auto) 5.9H, Basophils (%) (Auto) 1.6, Erythrocyte Sedimentation Rate 14, Reticulocyte Count 9.6H, Sodium Level 140, Potassium Level 3.8, Chloride Level 104, Carbon Dioxide Level 29, Anion Gap 7, Blood Urea Nitrogen 5L, Creatinine 0.6, Estimat Glomerular Filtration Rate > 60, Glucose Level 111H, Calcium Level 8.4L, Phosphorus Level 4.8, Magnesium Level 1.6L, Total Bilirubin 1.2H, Direct Bilirubin 0.3, Aspartate Amino Transf (AST/SGOT) 28, Alanine Aminotransferase ( ALT/SGPT) 42, Alkaline Phosphatase 91, Lactate Dehydrogenase 200, Total Protein 7.3, Albumin 3.4, Globulin 3.9, Albumin/Globulin Ratio 0.9L Current Medications Medications (Trade) Dose Ordered Sig/Arianne Route PRN Reason Start Time Stop Time Status Last Admin Dose Admin Albuterol Sulfate (Proventil) 2.5 mg Q4H PRN HHN Shortness of Breath 05/06/19 15:30 05/11/19 15:29 05/07/19 13:38 Aspirin (ASA) 81 mg DAILY ORAL 05/02/19 09:00 06/01/19 08:59 05/09/19 08:35 Azithromycin (Zithromax) 250 mg DAILY ORAL 05/09/19 09:00 05/16/19 08:59 05/09/19 08:36 Chlorhexidine Gluconate (Jihan-Hex 2%) 1 applic DAILY@1999 TOPIC 05/06/19 20:00 06/05/19 19:59 05/08/19 20:19 Dextrose/Sodium Chloride 1,000 ml @ 150 mls/hr Q6H40M IV 05/09/19 12:30 06/03/19 12:29 05/09/19 12:42 Diphenhydramine HCl (Benadryl) 25 mg Q3H PRN IVP Itching 05/03/19 15:00 06/02/19 14:59 05/09/19 10:37 Docusate Sodium (Colace) 100 mg Q12HR ORAL 05/04/19 21:00 06/03/19 20:59 05/09/19 08:35 Folic Acid (Folate) 1 mg DAILY ORAL 05/02/19 09:00 06/01/19 08:59 05/09/19 08:36 Heparin Sodium (Porcine) (Heparin 5000 units/ml) 5,000 units EVERY 12 HOURS SUBQ 05/02/19 09:00 06/01/19 08:59 05/07/19 09:06 Hydromorphone HCl (Dilaudid) 3 mg Q3H PRN IVP Severe Pain (Pain Scale 7-10) 05/03/19 14:56 05/10/19 14:55 05/09/19 10:38 Ondansetron HCl (Zofran) 4 mg Q4HR PRN IVP Nausea & Vomiting 05/02/19 00:15 06/01/19 00:14 Salmeterol Xinafoate/ Fluticasone (Advair 250/50 Diskus) 1 puffs BID INH 05/02/19 09:00 06/01/19 08:59 05/09/19 07:13 Ranjith Caicedo MD May 09, 2019 13:25
[2019-05-09 16:00] VITALS: BP 114/70
--- NOTE | 2019-05-09 17:40 | Infectious Diseases Prog Note ---
Assessment/Plan Assessment/Plan ASSESSMENT: This is a 23-year-old male with: Leukocytosis ( m/l 2/2 SS crisis) afebrile Probable bronchtitis , (doubt Pneum) cough and sputum CXR: Mild interstitial congestion bilaterally, Borderline cardiomegaly Chest pain, Sp Near syncope Sickle cell disease Beta thalassemia Anemia Asthma Avascular necrosis of the left hip P: Zithro # 2/ 5 ( ok to DC pt on oral Zithro to complete the course, Rx in chart ) Dw RN Monitor CBC Monitor CMP Monitor CXR sp Cx Subjective Allergies: Coded Allergies: CAPSAICIN (Verified Allergy, Unknown, 11/23/18) CEFTRIAXONE (Verified Allergy, Unknown, 11/23/18) IOPAMIDOL (Unverified Allergy, Unknown, 01/01/19) Uncoded Allergies: IV CONTRAST (Allergy, Unknown, 01/01/19) CONTRAST (Adverse Reaction, Severe, Rash, 06/23/16) RADIOCONTRAST - RASH, ITCHING Subjective no acute event Objective Vital Signs Last 24 Hour Vital Signs Date Time Temp Pulse Resp B/P (MAP) Pulse Ox O2 Delivery O2 Flow Rate FiO2 05/09/19 16:00 96.6 70 19 114/70 (85) 97 05/09/19 12:00 99.3 67 16 134/71 (92) 100 05/09/19 09:00 Nasal Cannula 2.0 05/09/19 08:00 98.6 66 18 131/69 (89) 99 05/09/19 07:14 97 Room Air 21 05/09/19 04:00 98.0 60 20 123/67 (85) 97 05/09/19 00:00 98.4 75 18 132/70 (90) 96 05/08/19 21:00 Nasal Cannula 2.0 05/08/19 20:49 99.2 05/08/19 20:03 97 Room Air 21 05/08/19 20:00 99.2 75 18 140/93 (109) 99 Height (Feet): 5 Height (Inches): 6.00 Weight (Pounds): 248 HEENT: mucous membranes moist Respiratory/Chest: normal breath sounds Cardiovascular: regular rhythm Abdomen: non distended Laboratory Tests Test 05/09/19 04:00 White Blood Count 16.8 K/UL (4.8-10.8) H Red Blood Count 3.50 M/UL (4.70-6.10) L Hemoglobin 8.9 G/DL (14.2-18.0) L Hematocrit 27.7 % (42.0-52.0) L Mean Corpuscular Volume 79 FL (80-99) L Mean Corpuscular Hemoglobin 25.4 PG (27.0-31.0) L Mean Corpuscular Hemoglobin Concent 32.1 G/DL (32.0-36.0) Red Cell Distribution Width 17.7 % (11.6-14.8) H Platelet Count 346 K/UL (150-450) Mean Platelet Volume 7.1 FL (6.5-10.1) Neutrophils (%) (Auto) 34.8 % (45.0-75.0) L Lymphocytes (%) (Auto) 50.8 % (20.0-45.0) H Monocytes (%) (Auto) 6.9 % (1.0-10.0) Eosinophils (%) (Auto) 5.9 % (0.0-3.0) H Basophils (%) (Auto) 1.6 % (0.0-2.0) Erythrocyte Sedimentation Rate 14 MM/HR (0-15) Reticulocyte Count 9.6 % (0.5-2.0) H Sodium Level 140 MMOL/L (136-145) Potassium Level 3.8 MMOL/L (3.5-5.1) Chloride Level 104 MMOL/L (98-107) Carbon Dioxide Level 29 MMOL/L (21-32) Anion Gap 7 mmol/L (5-15) Blood Urea Nitrogen 5 mg/dL (7-18) L Creatinine 0.6 MG/DL (0.55-1.30) Estimat Glomerular Filtration Rate > 60 mL/min (>60) Glucose Level 111 MG/DL (74-106) H Calcium Level 8.4 MG/DL (8.5-10.1) L Phosphorus Level 4.8 MG/DL (2.5-4.9) Magnesium Level 1.6 MG/DL (1.8-2.4) L Total Bilirubin 1.2 MG/DL (0.2-1.0) H Direct Bilirubin 0.3 MG/DL (0.0-0.3) Aspartate Amino Transf (AST/SGOT) 28 U/L (15-37) Alanine Aminotransferase (ALT/SGPT) 42 U/L (12-78) Alkaline Phosphatase 91 U/L (46-116) Lactate Dehydrogenase 200 U/L (81-234) Total Protein 7.3 G/DL (6.4-8.2) Albumin 3.4 G/DL (3.4-5.0) Globulin 3.9 g/dL Albumin/Globulin Ratio 0.9 (1.0-2.7) L Current Medications Medications (Trade) Dose Ordered Sig/Arianne Route PRN Reason Start Time Stop Time Status Last Admin Dose Admin Albuterol Sulfate (Proventil) 2.5 mg Q4H PRN HHN Shortness of Breath 05/06/19 15:30 05/11/19 15:29 05/07/19 13:38 Aspirin (ASA) 81 mg DAILY ORAL 05/02/19 09:00 06/01/19 08:59 05/09/19 08:35 Azithromycin (Zithromax) 250 mg DAILY ORAL 05/09/19 09:00 05/16/19 08:59 05/09/19 08:36 Chlorhexidine Gluconate (Jihan-Hex 2%) 1 applic DAILY@2000 TOPIC 05/06/19 20:00 06/05/19 19:59 05/08/19 20:19 Dextrose/Sodium Chloride 1,000 ml @ 150 mls/hr Q6H40M IV 05/09/19 12:30 06/03/19 12:29 05/09/19 12:42 Diphenhydramine HCl (Benadryl) 25 mg Q3H PRN IVP Itching 05/03/19 15:00 06/02/19 14:59 05/09/19 17:34 Docusate Sodium (Colace) 100 mg Q12HR ORAL 05/04/19 21:00 06/03/19 20:59 05/09/19 08:35 Folic Acid (Folate) 1 mg DAILY ORAL 05/02/19 09:00 06/01/19 08:59 05/09/19 08:36 Heparin Sodium (Porcine) (Heparin 5000 units/ml) 5,000 units EVERY 12 HOURS SUBQ 05/02/19 09:00 06/01/19 08:59 05/07/19 09:06 Hydromorphone HCl (Dilaudid) 3 mg Q3H PRN IVP Severe Pain (Pain Scale 7-10) 05/03/19 14:56 05/10/19 14:55 05/09/19 17:35 Ondansetron HCl (Zofran) 4 mg Q4HR PRN IVP Nausea & Vomiting 05/02/19 00:15 06/01/19 00:14 Salmeterol Xinafoate/ Fluticasone (Advair 250/50 Diskus) 1 puffs BID INH 05/02/19 09:00 06/01/19 08:59 05/09/19 07:13 Damien Duke MD May 09, 2019 17:40
--- NOTE | 2019-05-09 19:13 | Internal Med Progress Note ---
Subjective Date of Service: May 09, 2019 Physician Name Edilson Rubalcava Attending Physician Jersey Bearden MD Current Medications Medications (Trade) Dose Ordered Sig/Arianne Route PRN Reason Start Time Stop Time Status Last Admin Dose Admin Albuterol Sulfate (Proventil) 2.5 mg Q4H PRN HHN Shortness of Breath 05/06/19 15:30 05/11/19 15:29 05/07/19 13:38 Aspirin (ASA) 81 mg DAILY ORAL 05/02/19 09:00 06/01/19 08:59 05/09/19 08:35 Azithromycin (Zithromax) 250 mg DAILY ORAL 05/09/19 09:00 05/16/19 08:59 05/09/19 08:36 Chlorhexidine Gluconate (Jihan-Hex 2%) 1 applic DAILY@2000 TOPIC 05/06/19 20:00 06/05/19 19:59 05/08/19 20:19 Dextrose/Sodium Chloride 1,000 ml @ 150 mls/hr Q6H40M IV 05/09/19 12:30 06/03/19 12:29 05/09/19 12:42 Diphenhydramine HCl (Benadryl) 25 mg Q3H PRN IVP Itching 05/03/19 15:00 06/02/19 14:59 05/09/19 17:34 Docusate Sodium (Colace) 100 mg Q12HR ORAL 05/04/19 21:00 06/03/19 20:59 05/09/19 08:35 Folic Acid (Folate) 1 mg DAILY ORAL 05/02/19 09:00 06/01/19 08:59 05/09/19 08:36 Heparin Sodium (Porcine) (Heparin 5000 units/ml) 5,000 units EVERY 12 HOURS SUBQ 05/02/19 09:00 06/01/19 08:59 05/07/19 09:06 Hydromorphone HCl (Dilaudid) 3 mg Q3H PRN IVP Severe Pain (Pain Scale 7-10) 05/03/19 14:56 05/10/19 14:55 05/09/19 17:35 Ondansetron HCl (Zofran) 4 mg Q4HR PRN IVP Nausea & Vomiting 05/02/19 00:15 06/01/19 00:14 Salmeterol Xinafoate/ Fluticasone (Advair 250/50 Diskus) 1 puffs BID INH 05/02/19 09:00 06/01/19 08:59 05/09/19 07:13 Allergies: Coded Allergies: CAPSAICIN (Verified Allergy, Unknown, 11/23/18) CEFTRIAXONE (Verified Allergy, Unknown, 11/23/18) IOPAMIDOL (Unverified Allergy, Unknown, 01/01/19) Uncoded Allergies: IV CONTRAST (Allergy, Unknown, 01/01/19) CONTRAST (Adverse Reaction, Severe, Rash, 06/23/16) RADIOCONTRAST - RASH, ITCHING ROS Limited/Unobtainable: No Constitutional: Reports: no symptoms HEENT: Reports: no symptoms Cardiovascular: Reports: no symptoms Respiratory: Reports: no symptoms Gastrointestinal/Abdominal: Reports: no symptoms Genitourinary: Reports: no symptoms Neurologic/Psychiatric: Reports: no symptoms Subjective 23 YO M with history of sickle cell dis admitted with chest pain and near syncope. Cover for Int Med-Dr Bearden. Objective Last Vital Signs Date Time Temp Pulse Resp B/P (MAP) Pulse Ox O2 Delivery O2 Flow Rate FiO2 05/09/19 16:00 96.6 70 19 114/70 (85) 97 05/09/19 09:00 Nasal Cannula 2.0 05/09/19 07:14 21 Laboratory Tests Test 05/09/19 04:00 White Blood Count 16.8 K/UL (4.8-10.8) H Red Blood Count 3.50 M/UL (4.70-6.10) L Hemoglobin 8.9 G/DL (14.2-18.0) L Hematocrit 27.7 % (42.0-52.0) L Mean Corpuscular Volume 79 FL (80-99) L Mean Corpuscular Hemoglobin 25.4 PG (27.0-31.0) L Mean Corpuscular Hemoglobin Concent 32.1 G/DL (32.0-36.0) Red Cell Distribution Width 17.7 % (11.6-14.8) H Platelet Count 346 K/UL (150-450) Mean Platelet Volume 7.1 FL (6.5-10.1) Neutrophils (%) (Auto) 34.8 % (45.0-75.0) L Lymphocytes (%) (Auto) 50.8 % (20.0-45.0) H Monocytes (%) (Auto) 6.9 % (1.0-10.0) Eosinophils (%) (Auto) 5.9 % (0.0-3.0) H Basophils (%) (Auto) 1.6 % (0.0-2.0) Erythrocyte Sedimentation Rate 14 MM/HR (0-15) Reticulocyte Count 9.6 % (0.5-2.0) H Sodium Level 140 MMOL/L (136-145) Potassium Level 3.8 MMOL/L (3.5-5.1) Chloride Level 104 MMOL/L (98-107) Carbon Dioxide Level 29 MMOL/L (21-32) Anion Gap 7 mmol/L (5-15) Blood Urea Nitrogen 5 mg/dL (7-18) L Creatinine 0.6 MG/DL (0.55-1.30) Estimat Glomerular Filtration Rate > 60 mL/min (>60) Glucose Level 111 MG/DL (74-106) H Calcium Level 8.4 MG/DL (8.5-10.1) L Phosphorus Level 4.8 MG/DL (2.5-4.9) Magnesium Level 1.6 MG/DL (1.8-2.4) L Total Bilirubin 1.2 MG/DL (0.2-1.0) H Direct Bilirubin 0.3 MG/DL (0.0-0.3) Aspartate Amino Transf (AST/SGOT) 28 U/L (15-37) Alanine Aminotransferase (ALT/SGPT) 42 U/L (12-78) Alkaline Phosphatase 91 U/L (46-116) Lactate Dehydrogenase 200 U/L (81-234) Total Protein 7.3 G/DL (6.4-8.2) Albumin 3.4 G/DL (3.4-5.0) Globulin 3.9 g/dL Albumin/Globulin Ratio 0.9 (1.0-2.7) L Intake and Output 05/08/19 05/09/19 19:00 07:00 Intake Total 1937.5 ml 1375 ml Output Total 900 ml Balance 1937.5 ml 475 ml Intake Oral 500 ml IV Total 1437.5 ml 1375 ml Output Urine Total 900 ml # Voids 4 2 Objective PHYSICAL EXAMINATION: GENERAL: The patient is a well-developed and well-nourished male, in moderate pain. HEENT: Eyes, pupils are equal and responsive to light and accommodation. Extraocular movements intact. NECK: Supple without lymphadenopathy. CHEST: Lungs are clear to auscultation bilaterally without wheezes or rales. CARDIOVASCULAR: Regular rhythm and rate. S1, S2 normal without murmurs, rubs, or gallops. ABDOMEN: Soft, nontender, and nondistended. Positive bowel sounds. No evidence of hepatosplenomegaly. Currently, no rebound or guarding. EXTREMITIES: Negative for clubbing, cyanosis, or edema. RECTAL/GENITAL: Not performed. NEUROLOGIC: Cranial nerves II through XII are grossly intact without focal deficits. Motor strength is 5/5 bilaterally. Deep tendon reflexes are 2+ plantar. Assessment/Plan Assessment/Plan ASSESSMENT: This is a 23-year-old male with: 1. Chest pain. 2. Near syncope. 3. Sickle cell disease. 4. Beta thalassemia. 5. Sickle cell anemia. 6. Asthma. 7. Avascular necrosis of the left hip. 8. Bronchitis TREATMENT: 1. Syncopal episode. This may be secondary to vasovagal versus cerebrovascular accident. An CT of the brain was normal. 2. Chest pain. An initial troponin level was negative. A Cardiology consultation has been obtained with Dr. Dane Dickey. 3. Sickle cell disease/beta thalassemia. A Hematology-Oncology consultation has been obtained with Dr. Davenport. The patient is followed as an outpatient by Dr. Kerline Davenport. We will follow recommendations of Hematology-Oncology. The patient is currently receiving pain medication with intravenous Dilaudid. 4. Asthma. Continue albuterol metered-dose inhaler and Advair as above. Start albuterol nebs prn 5. Avascular necrosis of left hip. 6. Albuterol nebs prn Edilson Rubalcava MD May 09, 2019 19:13
--- NOTE | 2019-05-09 19:30 | NUR ---
HAND-OFF: Report given to RodneyRN&EDU Patel.
[2019-05-09 20:00] VITALS: BP 120/64
--- NOTE | 2019-05-09 20:20 | NUR ---
NURSE NOTES: Patient is in bed, awake, alert, verbal, ambulatory. Receiving oxygen via N/C 2L/min. No acute distress or SOB noted. IV site on left chest PortaCath patent and intact. infusing D5 1/2 NS at 150ml/hr. Pain medication will be given as ordered PRN. . Bed in low and locked position. Call light within reach. Patient will be monitored. Trainee, Zoya Montgomery RN will be assisting in the care of this patient.
[2019-05-09] MEDS: Dyna-Hex 2% Top Sol 2oz TOPIC SCH (20:54)
[2019-05-10] VITALS: BP 128/81
[2019-05-10] MEDS: DiphenhydrAMINE 50mg/ml Inj IVP PRN ×6 (00:04→15:28)
--- NOTE | 2019-05-10 01:30 | NUR ---
NURSE NOTES: Patient is in bed, asleep. Pain medication administered as ordered.No c/o pain or discomfort at this time. Assisted as needed. Bed in low and locked position Call light within reach. Patient will be monitored.
[2019-05-10] MEDS: D5 1/2NS 1,000 ML IV SCH ×3 (03:22→15:28)
[2019-05-10 04:00] VITALS: BP 132/79
[2019-05-10 06:10] LABS: HEMATOCRIT 28.1 % (42.0-52.0); HEMOGLOBIN 8.9 G/DL (14.2-18.0); LYMPHOCYTES % (AUTO) 43.3 % (20.0-45.0); MEAN CORPUSCULAR VOLUME 79 FL (80-99); MONOCYTES % (AUTO) 9.1 % (1.0-10.0); NEUTROPHILS % (AUTO) 38.6 % (45.0-75.0); PLATELET COUNT 363 K/UL (150-450); RED BLOOD COUNT 3.53 M/UL (4.70-6.10); RED CELL DISTRIBUTION WIDTH 18.3 % (11.6-14.8); WHITE BLOOD COUNT 16.5 K/UL (4.8-10.8)
[2019-05-10 06:21] LABS: ANION GAP 8 mmol/L (5-15); BLOOD UREA NITROGEN 4 mg/dL (7-18); CALCIUM 8.5 MG/DL (8.5-10.1); CARBON DIOXIDE 29 MMOL/L (21-32); CHLORIDE 102 MMOL/L (98-107); CREATININE 0.5 MG/DL (0.55-1.30); POTASSIUM 3.8 MMOL/L (3.5-5.1); SODIUM 139 MMOL/L (136-145)
--- NOTE | 2019-05-10 07:20 | NUR ---
HAND-OFF: Report given to Molly edge RN.
--- NOTE | 2019-05-10 07:20 | NUR ---
NURSE NOTES: received patient in bed, patient awake, alert, oriented x4, ambulatory.On O2at 2lpm via NC, No acute distress . left chest Brenda Cath patent and intact on going D5 1/2 NS at 150ml/hr. on fall and aspiration precaution . Bed in low and locked position. Call light within reach. Patient will be monitored. javi kulkarni
[2019-05-10 08:00] VITALS: BP 116/67
[2019-05-10] MEDS: Wixela 250/50 Inhaler - 60 dose INH SCH (08:31)
[2019-05-10] MEDS: Aspirin Baby 81mg ORAL SCH (08:36)
[2019-05-10] MEDS: Docusate 100mg cap ORAL SCH (08:36)
[2019-05-10] MEDS: Heparin 5000 units/ml inj SUBQ SCH (08:36)
[2019-05-10] MEDS: Azithromycin 250mg tab ORAL SCH (08:36)
--- NOTE | 2019-05-10 10:02 | Infectious Diseases Prog Note ---
Assessment/Plan Assessment/Plan ASSESSMENT: This is a 23-year-old male with: Leukocytosis ( m/l 2/2 SS crisis) afebrile Probable bronchtitis , (doubt Pneum) cough and sputum CXR: Mild interstitial congestion bilaterally, Borderline cardiomegaly Chest pain, Sp Near syncope Sickle cell disease Beta thalassemia Anemia Asthma Avascular necrosis of the left hip P: Zithro # 3/ 5 ( ok to DC pt on oral Zithro to complete the course, Rx in chart ) Dw RN Monitor CBC Monitor CMP Monitor CXR sp Cx Subjective Allergies: Coded Allergies: CAPSAICIN (Verified Allergy, Unknown, 11/23/18) CEFTRIAXONE (Verified Allergy, Unknown, 11/23/18) IOPAMIDOL (Unverified Allergy, Unknown, 01/01/19) Uncoded Allergies: IV CONTRAST (Allergy, Unknown, 01/01/19) CONTRAST (Adverse Reaction, Severe, Rash, 06/23/16) RADIOCONTRAST - RASH, ITCHING Subjective no acute event cough + Objective Vital Signs Last 24 Hour Vital Signs Date Time Temp Pulse Resp B/P (MAP) Pulse Ox O2 Delivery O2 Flow Rate FiO2 05/10/19 08:32 98 Room Air 21 05/10/19 08:05 Nasal Cannula 2.0 05/10/19 08:00 98.2 76 20 116/67 (83) 97 05/10/19 04:00 98.3 90 18 132/79 (96) 98 05/10/19 00:00 99.1 95 18 128/81 (97) 98 05/09/19 21:00 Nasal Cannula 2.0 05/09/19 20:10 96 Room Air 21 05/09/19 20:00 99.3 73 18 120/64 (82) 99 05/09/19 16:00 96.6 70 19 114/70 (85) 97 05/09/19 12:00 99.3 67 16 134/71 (92) 100 Height (Feet): 5 Height (Inches): 6.00 Weight (Pounds): 248 HEENT: anicteric Respiratory/Chest: normal breath sounds Cardiovascular: regular rhythm Abdomen: no organomegaly Laboratory Tests Test 05/10/19 05:06 White Blood Count 16.5 K/UL (4.8-10.8) H Red Blood Count 3.53 M/UL (4.70-6.10) L Hemoglobin 8.9 G/DL (14.2-18.0) L Hematocrit 28.1 % (42.0-52.0) L Mean Corpuscular Volume 79 FL (80-99) L Mean Corpuscular Hemoglobin 25.2 PG (27.0-31.0) L Mean Corpuscular Hemoglobin Concent 31.8 G/DL (32.0-36.0) L Red Cell Distribution Width 18.3 % (11.6-14.8) H Platelet Count 363 K/UL (150-450) Mean Platelet Volume 6.1 FL (6.5-10.1) L Neutrophils (%) (Auto) 38.6 % (45.0-75.0) L Lymphocytes (%) (Auto) 43.3 % (20.0-45.0) Monocytes (%) (Auto) 9.1 % (1.0-10.0) Eosinophils (%) (Auto) 6.0 % (0.0-3.0) H Basophils (%) (Auto) 3.0 % (0.0-2.0) H Sodium Level 139 MMOL/L (136-145) Potassium Level 3.8 MMOL/L (3.5-5.1) Chloride Level 102 MMOL/L (98-107) Carbon Dioxide Level 29 MMOL/L (21-32) Anion Gap 8 mmol/L (5-15) Blood Urea Nitrogen 4 mg/dL (7-18) L Creatinine 0.5 MG/DL (0.55-1.30) L Estimat Glomerular Filtration Rate > 60 mL/min (>60) Glucose Level 102 MG/DL (74-106) Calcium Level 8.5 MG/DL (8.5-10.1) Current Medications Medications (Trade) Dose Ordered Sig/Arianne Route PRN Reason Start Time Stop Time Status Last Admin Dose Admin Albuterol Sulfate (Proventil) 2.5 mg Q4H PRN HHN Shortness of Breath 05/06/19 15:30 05/11/19 15:29 05/07/19 13:38 Aspirin (ASA) 81 mg DAILY ORAL 05/02/19 09:00 06/01/19 08:59 05/10/19 08:36 Azithromycin (Zithromax) 250 mg DAILY ORAL 05/09/19 09:00 05/16/19 08:59 05/10/19 08:36 Chlorhexidine Gluconate (Jihan-Hex 2%) 1 applic DAILY@2000 TOPIC 05/06/19 20:00 06/05/19 19:59 05/09/19 20:54 Dextrose/Sodium Chloride 1,000 ml @ 150 mls/hr Q6H40M IV 05/09/19 12:30 06/03/19 12:29 05/10/19 08:36 Diphenhydramine HCl (Benadryl) 25 mg Q3H PRN IVP Itching 05/03/19 15:00 06/02/19 14:59 05/10/19 09:31 Docusate Sodium (Colace) 100 mg Q12HR ORAL 05/04/19 21:00 06/03/19 20:59 05/10/19 08:36 Folic Acid (Folate) 1 mg DAILY ORAL 05/02/19 09:00 06/01/19 08:59 05/10/19 08:36 Heparin Sodium (Porcine) (Heparin 5000 units/ml) 5,000 units EVERY 12 HOURS SUBQ 05/02/19 09:00 06/01/19 08:59 05/07/19 09:06 Hydromorphone HCl (Dilaudid) 3 mg Q3H PRN IVP Severe Pain (Pain Scale 7-10) 05/03/19 14:56 05/10/19 14:55 05/10/19 09:36 Ondansetron HCl (Zofran) 4 mg Q4HR PRN IVP Nausea & Vomiting 05/02/19 00:15 06/01/19 00:14 Salmeterol Xinafoate/ Fluticasone (Advair 250/50 Diskus) 1 puffs BID INH 05/02/19 09:00 06/01/19 08:59 05/10/19 08:31 Damien Duke MD May 10, 2019 10:02
[2019-05-10 12:00] VITALS: BP 132/78
--- NOTE | 2019-05-10 14:25 | Pulmonology Progress Note ---
Assessment/Plan Problems: (1) Sickle cell crisis (2) Anemia Assessment/Plan wbc still the dame 08/09 NS 150 cc Reti count is high as well continue iv fluids and pain meds LDH, reti count, bilirubin are decreasing, start MS contine Subjective Constitutional: Reports: no symptoms HEENT: Repors: no symptoms Respiratory: Reports: no symptoms Allergies: Coded Allergies: CAPSAICIN (Verified Allergy, Unknown, 11/23/18) CEFTRIAXONE (Verified Allergy, Unknown, 11/23/18) IOPAMIDOL (Unverified Allergy, Unknown, 01/01/19) Uncoded Allergies: IV CONTRAST (Allergy, Unknown, 01/01/19) CONTRAST (Adverse Reaction, Severe, Rash, 06/23/16) RADIOCONTRAST - RASH, ITCHING Objective Last 24 Hour Vital Signs Date Time Temp Pulse Resp B/P (MAP) Pulse Ox O2 Delivery O2 Flow Rate FiO2 05/10/19 12:00 98.3 80 20 132/78 (96) 97 05/10/19 08:32 98 Room Air 21 05/10/19 08:05 Nasal Cannula 2.0 05/10/19 08:00 98.2 76 20 116/67 (83) 97 05/10/19 04:00 98.3 90 18 132/79 (96) 98 05/10/19 00:00 99.1 95 18 128/81 (97) 98 05/09/19 21:00 Nasal Cannula 2.0 05/09/19 20:10 96 Room Air 21 05/09/19 20:00 99.3 73 18 120/64 (82) 99 05/09/19 16:00 96.6 70 19 114/70 (85) 97 Intake and Output 05/09/19 05/10/19 18:59 06:59 Intake Total 1375 ml 4350 ml Output Total 1700 ml Balance 1375 ml 2650 ml Intake Oral 500 ml IV Total 1375 ml 3850 ml Output Urine Total 1700 ml # Voids 3 # Bowel Movements 1 General Appearance: WD/WN HEENT: normocephalic, anicteric Respiratory/Chest: chest wall non-tender, normal breath sounds Cardiovascular: normal peripheral pulses, normal rate Abdomen: normal bowel sounds, no organomegaly Genitourinary: normal external genitalia Extremities: no clubbing Laboratory Tests 05/10/19 05:06: White Blood Count 16.5H, Red Blood Count 3.53L, Hemoglobin 8.9L, Hematocrit 28.1L, Mean Corpuscular Volume 79L, Mean Corpuscular Hemoglobin 25.2L, Mean Corpuscular Hemoglobin Concent 31.8L, Red Cell Distribution Width 18.3H, Platelet Count 363, Mean Platelet Volume 6.1L, Neutrophils (%) (Auto) 38.6L, Lymphocytes (%) (Auto) 43.3, Monocytes (%) (Auto) 9.1, Eosinophils (%) (Auto) 6.0H, Basophils (%) (Auto) 3.0H, Sodium Level 139, Potassium Level 3.8, Chloride Level 102, Carbon Dioxide Level 29, Anion Gap 8, Blood Urea Nitrogen 4L , Creatinine 0.5L, Estimat Glomerular Filtration Rate > 60, Glucose Level 102, Calcium Level 8.5 Current Medications Medications (Trade) Dose Ordered Sig/Arianne Route PRN Reason Start Time Stop Time Status Last Admin Dose Admin Albuterol Sulfate (Proventil) 2.5 mg Q4H PRN HHN Shortness of Breath 05/06/19 15:30 05/11/19 15:29 05/07/19 13:38 Aspirin (ASA) 81 mg DAILY ORAL 05/02/19 09:00 06/01/19 08:59 05/10/19 08:36 Azithromycin (Zithromax) 250 mg DAILY ORAL 05/09/19 09:00 05/16/19 08:59 05/10/19 08:36 Chlorhexidine Gluconate (Jihan-Hex 2%) 1 applic DAILY@2000 TOPIC 05/06/19 20:00 06/05/19 19:59 05/09/19 20:54 Dextrose/Sodium Chloride 1,000 ml @ 150 mls/hr Q6H40M IV 05/09/19 12:30 06/03/19 12:29 05/10/19 08:36 Diphenhydramine HCl (Benadryl) 25 mg Q3H PRN IVP Itching 05/03/19 15:00 06/02/19 14:59 05/10/19 12:30 Docusate Sodium (Colace) 100 mg Q12HR ORAL 05/04/19 21:00 06/03/19 20:59 05/10/19 08:36 Folic Acid (Folate) 1 mg DAILY ORAL 05/02/19 09:00 06/01/19 08:59 05/10/19 08:36 Heparin Sodium (Porcine) (Heparin 5000 units/ml) 5,000 units EVERY 12 HOURS SUBQ 05/02/19 09:00 06/01/19 08:59 05/07/19 09:06 Hydromorphone HCl (Dilaudid) 3 mg Q3H PRN IVP Severe Pain (Pain Scale 7-10) 05/03/19 14:56 05/10/19 14:55 05/10/19 12:34 Ondansetron HCl (Zofran) 4 mg Q4HR PRN IVP Nausea & Vomiting 05/02/19 00:15 06/01/19 00:14 Salmeterol Xinafoate/ Fluticasone (Advair 250/50 Diskus) 1 puffs BID INH 05/02/19 09:00 06/01/19 08:59 05/10/19 08:31 Ranjith Caicedo MD May 10, 2019 14:25
[2019-05-10] MEDS ORDERED: MS Contin 15mg tab ORAL SCH (14:30)
--- NOTE | 2019-05-10 14:32 | NUR ---
RD ASSESSMENT & RECOMMENDATIONS SEE CARE ACTIVITY FOR COMPLETE ASSESSMENT DAILY ESTIMATED NEEDS: Needs based on Obese, pulmonary 76.7kg abw 20-25 kcals/kg 0821-7499 total kcals 1-1.5 g protein/kg 77-116 g total protein 25-30 mL/kg 5703-7197 total fluid mLs NUTRITION DIAGNOSIS: 1) Obesity etiology unknown as evidenced by BMI >40, pt is 175% [place] Body Weight. 2) Altered nutrition related lab values r/t clinical status, sickle cell crisis, low hgb 8.9, elev LDH 255, elev T bili 1.2. CURRENT DIET: Regular PO DIET RECOMMENDATIONS: Low NA/ Low FAT diet ADDITIONAL RECOMMENDATIONS: 1) Obtain a STANDING weight as able for accurate CBW EMR wt 248# vs bed scale wt 271# 2) Check lytes daily, replete as needed (mg 1.6)
[2019-05-10 16:12] VITALS: BP 121/60
--- NOTE | 2019-05-10 16:39 | NUR ---
NURSE NOTES Discharge to home obtained, patient made aware regarding plan of care, agreed and stated my aunt wll come and pivk me here , im going to call her now javi kulkarni
--- NOTE | 2019-05-10 16:55 | NUR ---
nurse notes michelet cath flushed with heparin 300 unit, michelet cath dcd as ordered, tolerated well, dressing applied javi kulkarni
[2019-05-10] MEDS ORDERED: D5 1/2NS 1000ml IV ONE (16:59)
[2019-05-10] MEDS ORDERED: Heplock Flush 100 units/ml 3 ml syr IV SCH (17:00)
--- NOTE | 2019-05-10 17:10 | NUR ---
nurse notes discharge in stable condition with all belongings taken , patient refused to be wheeled, stated im ok, discharged via private car javi kulkarni
--- NOTE | 2019-05-10 17:27 | Internal Med Progress Note ---
Subjective Date of Service: May 10, 2019 Physician Name Edilson Rubalcava Attending Physician Jersey Bearden MD Current Medications Medications (Trade) Dose Ordered Sig/Arianne Route PRN Reason Start Time Stop Time Status Last Admin Dose Admin Albuterol Sulfate (Proventil) 2.5 mg Q4H PRN HHN Shortness of Breath 05/06/19 15:30 05/11/19 15:29 05/07/19 13:38 Aspirin (ASA) 81 mg DAILY ORAL 05/02/19 09:00 06/01/19 08:59 05/10/19 08:36 Azithromycin (Zithromax) 250 mg DAILY ORAL 05/09/19 09:00 05/16/19 08:59 05/10/19 08:36 Chlorhexidine Gluconate (Jihan-Hex 2%) 1 applic DAILY@2000 TOPIC 05/06/19 20:00 06/05/19 19:59 05/09/19 20:54 Dextrose/Sodium Chloride 1,000 ml @ 150 mls/hr Q6H40M IV 05/09/19 12:30 06/03/19 12:29 05/10/19 15:28 Diphenhydramine HCl (Benadryl) 25 mg Q3H PRN IVP Itching 05/03/19 15:00 06/02/19 14:59 05/10/19 15:28 Docusate Sodium (Colace) 100 mg Q12HR ORAL 05/04/19 21:00 06/03/19 20:59 05/10/19 08:36 Folic Acid (Folate) 1 mg DAILY ORAL 05/02/19 09:00 06/01/19 08:59 05/10/19 08:36 Heparin Sodium (Beef Lung) (Hep-Lock) 300 unit ONCE IV 05/10/19 17:00 05/10/19 18:30 05/10/19 16:45 Heparin Sodium (Porcine) (Heparin 5000 units/ml) 5,000 units EVERY 12 HOURS SUBQ 05/02/19 09:00 06/01/19 08:59 05/07/19 09:06 Morphine Sulfate (MS Contin) 30 mg EVERY 8 HOURS ORAL 05/10/19 14:30 05/17/19 14:29 05/10/19 15:45 Ondansetron HCl (Zofran) 4 mg Q4HR PRN IVP Nausea & Vomiting 05/02/19 00:15 06/01/19 00:14 Salmeterol Xinafoate/ Fluticasone (Advair 250/50 Diskus) 1 puffs BID INH 05/02/19 09:00 06/01/19 08:59 05/10/19 08:31 Allergies: Coded Allergies: CAPSAICIN (Verified Allergy, Unknown, 11/23/18) CEFTRIAXONE (Verified Allergy, Unknown, 11/23/18) IOPAMIDOL (Unverified Allergy, Unknown, 01/01/19) Uncoded Allergies: IV CONTRAST (Allergy, Unknown, 01/01/19) CONTRAST (Adverse Reaction, Severe, Rash, 06/23/16) RADIOCONTRAST - RASH, ITCHING ROS Limited/Unobtainable: No Constitutional: Reports: no symptoms HEENT: Reports: no symptoms Cardiovascular: Reports: no symptoms Respiratory: Reports: no symptoms Gastrointestinal/Abdominal: Reports: no symptoms Genitourinary: Reports: no symptoms Neurologic/Psychiatric: Reports: no symptoms Subjective 23 YO M with history of sickle cell dis admitted with chest pain and near syncope. Cover for Int Med-Dr Bearden. Objective Last Vital Signs Date Time Temp Pulse Resp B/P (MAP) Pulse Ox O2 Delivery O2 Flow Rate FiO2 05/10/19 16:15 98.4 05/10/19 16:12 80 19 121/60 (80) 97 05/10/19 08:32 Room Air 21 05/10/19 08:05 2.0 Laboratory Tests Test 05/10/19 05:06 White Blood Count 16.5 K/UL (4.8-10.8) H Red Blood Count 3.53 M/UL (4.70-6.10) L Hemoglobin 8.9 G/DL (14.2-18.0) L Hematocrit 28.1 % (42.0-52.0) L Mean Corpuscular Volume 79 FL (80-99) L Mean Corpuscular Hemoglobin 25.2 PG (27.0-31.0) L Mean Corpuscular Hemoglobin Concent 31.8 G/DL (32.0-36.0) L Red Cell Distribution Width 18.3 % (11.6-14.8) H Platelet Count 363 K/UL (150-450) Mean Platelet Volume 6.1 FL (6.5-10.1) L Neutrophils (%) (Auto) 38.6 % (45.0-75.0) L Lymphocytes (%) (Auto) 43.3 % (20.0-45.0) Monocytes (%) (Auto) 9.1 % (1.0-10.0) Eosinophils (%) (Auto) 6.0 % (0.0-3.0) H Basophils (%) (Auto) 3.0 % (0.0-2.0) H Sodium Level 139 MMOL/L (136-145) Potassium Level 3.8 MMOL/L (3.5-5.1) Chloride Level 102 MMOL/L (98-107) Carbon Dioxide Level 29 MMOL/L (21-32) Anion Gap 8 mmol/L (5-15) Blood Urea Nitrogen 4 mg/dL (7-18) L Creatinine 0.5 MG/DL (0.55-1.30) L Estimat Glomerular Filtration Rate > 60 mL/min (>60) Glucose Level 102 MG/DL (74-106) Calcium Level 8.5 MG/DL (8.5-10.1) Intake and Output 05/09/19 05/10/19 19:00 07:00 Intake Total 1375 ml 4500 ml Output Total 1700 ml Balance 1375 ml 2800 ml Intake Oral 500 ml IV Total 1375 ml 4000 ml Output Urine Total 1700 ml # Voids 3 # Bowel Movements 1 Objective PHYSICAL EXAMINATION: GENERAL: The patient is a well-developed and well-nourished male, in moderate pain. HEENT: Eyes, pupils are equal and responsive to light and accommodation. Extraocular movements intact. NECK: Supple without lymphadenopathy. CHEST: Lungs are clear to auscultation bilaterally without wheezes or rales. CARDIOVASCULAR: Regular rhythm and rate. S1, S2 normal without murmurs, rubs, or gallops. ABDOMEN: Soft, nontender, and nondistended. Positive bowel sounds. No evidence of hepatosplenomegaly. Currently, no rebound or guarding. EXTREMITIES: Negative for clubbing, cyanosis, or edema. RECTAL/GENITAL: Not performed. NEUROLOGIC: Cranial nerves II through XII are grossly intact without focal deficits. Motor strength is 5/5 bilaterally. Deep tendon reflexes are 2+ plantar. Assessment/Plan Assessment/Plan ASSESSMENT: This is a 23-year-old male with: 1. Chest pain. 2. Near syncope. 3. Sickle cell disease. 4. Beta thalassemia. 5. Sickle cell anemia. 6. Asthma. 7. Avascular necrosis of the left hip. 8. Bronchitis TREATMENT: 1. Syncopal episode. This may be secondary to vasovagal versus cerebrovascular accident. An CT of the brain was normal. 2. Chest pain. An initial troponin level was negative. A Cardiology consultation has been obtained with Dr. Dane Dickey. 3. Sickle cell disease/beta thalassemia. A Hematology-Oncology consultation has been obtained with Dr. Davenport. The patient is followed as an outpatient by Dr. Kerline Davenport. We will follow recommendations of Hematology-Oncology. The patient is currently receiving pain medication with intravenous Dilaudid. 4. Asthma. Continue albuterol metered-dose inhaler and Advair as above. Start albuterol nebs prn 5. Avascular necrosis of left hip. 6. Albuterol nebs prn Edilson Rubalcava MD May 10, 2019 17:27
--- NOTE | 2019-05-11 12:39 | Discharge Summary ---
Discharge Summary Discharge Summary _ DATE OF ADMISSION: 05/01/2019 DATE OF DISCHARGE: 05/10/2019 DISCHARGED BY: Dr. Bearden REASON FOR ADMISSION: 23 years old male with past medical history of sickle cell disease, beta thalassemia, asthma presented with chest pain and leg pain for 4 days. He denied fever or chills. Patient reported near syncopal episode with blurred vision, seeing spots , and then collapsed. Patient complained of right-sided head pain. He denied neck pain Upon evaluation patient was afebrile , pulse oximetry was stable on room air. Laboratory work-up revealed leukocytosis WBC 16.6 , hemoglobin 10.7, hematocrit 35.4. Platelet count 360. Reticulocyte count 11. Stable electrolytes and renal parameters. Glucose 126. Total bilirubin 1.8 , direct bilirubin 0.4. AST 48 , ALT 56. Troponin negative. EKG revealed sinus rhythm , no acute ischemic changes. Chest x-ray revealed no acute cardiopulmonary pathology. Borderline cardiomegaly , mild interstitial congestion bilaterally. CT of the head revealed no acute intracranial pathology. Patient admitted fro further management. CONSULTANTS: deadener Dr. Caicedo ID specialist Dr. Duke [facility] COURSE: Patient admitted and started on generous IV hydration. Supplemental oxygen provided as needed to keep pulse oximetry above 92%. Nebulizing treatments with bronchodilator provided as needed. Antibiotic provided as per ID specialist recommendation. Patient likely had bronchitis, unlikely pneumonia given results of CXR. Patient remained afebrile . Patient was treated with azithromycin and need to complete treatment for total of 5 days upon discharge. Leukocytosis was probably reactive, secondary to sickle cell crisis . Folic acid continued. Advair inhaler continued. Pain management was addressed. DVT prophylaxis provided. LDH, bilirubin and reticulocyte counts were trended. Hemoglobin and hematocrit were closely monitored with goal to keep hemoglobin above 7. No need for transfusion. Upon discharge hemoglobin 8.9 hematocrit 28.1. Renal parameters and electrolytes were closely monitored, remained stable. Near syncopal episode was possibly due to sickle cell crisis . Patient clinically stabilized and was ready for discharge . LDH down to normal 200 . Total bilirubin from 1.8 down to 1.2, direct bilirubin down to normal 0.3 . Stable AST and ALT. Reticulocyte count down to 9.6. Pulse oximetry stable on room air. Initial chest pain resolved. Patient was discharged home. Follow-up with the underwear hemmer Dr. Davenport next week. FINAL DIAGNOSES: Sickle cell crisis Back thalassemia Anemia Near syncopal episode Leukocytosis Probably bronchitis Asthma Avascular necrosis of the left hip DISCHARGE MEDICATIONS: See Medication Reconciliation list. DISCHARGE INSTRUCTIONS: Patient was discharged home . Follow-up with underwear hemmer in 1 week I have been assigned to dictate discharge summary for this account. I was not involved in the patient's management. Giovanna Montalvo NP May 11, 2019 12:39
== END 2019-05-10 17:00 | disposition home or self-care (01) | DRG 662 ==
LOC: EMR 18:55 → 4E 22:27 → EDBEDREQ 23:20 → 4E 05-02 00:22
DX: D57.00 Hb-SS disease with crisis, unspecified (principal); R55 Syncope and collapse; J45.909 Unspecified asthma, uncomplicated; D56.1 Beta thalassemia; Z88.8 Allergy status to other drugs, medicaments and biological substances; Z91.041 Radiographic dye allergy status; M87.852 Other osteonecrosis, left femur; Z90.81 Acquired absence of spleen; D64.9 Anemia, unspecified; J40 Bronchitis, not specified as acute or chronic; R07.9 Chest pain, unspecified
CPT/HCPCS: 36415; 70450; 71045; 80048; 80053; 81001; 82248; 82550; 82553; 83615; 83735; 84100; 84484; 85007; 85025; 85044; 85651; 86850; 86900; 86901; 93005; 94640; 96361; 96374; 96375; 96376; 99285; J2405

== ENCOUNTER 2019-07-15 10:45 | Inpatient (IN) | payer MEDICAID ==
[~2019-07-15] VITALS: Ht 167.6 cm; Wt 119.7 kg
--- NOTE | 2019-07-15 11:02 | NUR ---
ED Nurse Note: Patient arrived to ED from home. He states he has a hx of sickle cell and that he has had severe pain in his arms and legs x 1 week. He went to his regular doctor one week ago and was given hydromorphone PO. He was told to go to the ED if his pain persists. Last dose of hydromorphone was at 7am this morning. Patient AxO x 4, pain currently 9/10, sharp pain in arms and legs. Patient on the playground monitor, bed in lowest position.
[2019-07-15 11:05] VITALS: BP 138/81
--- NOTE | 2019-07-15 12:15 | NUR ---
ED Nurse Note: Patient resting in bed. He states his pain decreased from a 9 to an 8. He states that is normal and feels better than before.
--- NOTE | 2019-07-15 12:18 | Diagnostic Imaging Report ---
EXAM: XR Chest, 1 View CLINICAL HISTORY: SOB TECHNIQUE: Frontal view of the chest. COMPARISON: Chest x-ray 05/01/19 FINDINGS: Lungs: Hypoventilatory lungs. Bibasilar lung atelectasis. Mild perihilar interstitial thickening. Pleural space: Unremarkable. No pneumothorax. Heart: Unremarkable. No cardiomegaly. Mediastinum: Unremarkable. Bones/joints: Unremarkable. Tubes, lines and devices: Right chest port. IMPRESSION: Hypoventilatory lungs. Bibasilar lung atelectasis. Mild perihilar interstitial thickening, may be edema or pneumonitis.
[2019-07-15 13:01] LABS: BASOPHILS % (AUTO) 3.9 % (0.0-2.0); EOSINOPHILS % (AUTO) 0.2 % (0.0-3.0); HEMATOCRIT 34.7 % (42.0-52.0); HEMOGLOBIN 10.5 G/DL (14.2-18.0); LYMPHOCYTES % (AUTO) 45.5 % (20.0-45.0); MEAN CORPUSCULAR VOLUME 82 FL (80-99); MONOCYTES % (AUTO) 2.8 % (1.0-10.0); NEUTROPHILS % (AUTO) 47.6 % (45.0-75.0); PLATELET COUNT 431 K/UL (150-450); RED BLOOD COUNT 4.24 M/UL (4.70-6.10); RED CELL DISTRIBUTION WIDTH 17.4 % (11.6-14.8); WHITE BLOOD COUNT 14.3 K/UL (4.8-10.8)
[2019-07-15 13:02] VITALS: BP 132/80
--- NOTE | 2019-07-15 13:10 | Emergency Room Report ---
History of Present Illness General Chief Complaint: Pain Present Illness HPI 23-year-old male who presents with sickle cell pain. Reports greater than 1 week of pain in his knees and bilateral legs. Patient states every time it rains he gets pain exacerbations. Patient has been at his primary care doctor and atmospheric technician office 3 times this week. He has been treated with IV fluids and 2 doses of hydromorphone at each visit. Patient was told that if his pain is not being controlled at home to come to emergency room. Patient denies any chest pain or shortness of breath at this time. Patient denies any fevers or chills. Of note patient has had a splenectomy in the past. Allergies: Coded Allergies: CAPSAICIN (Verified Allergy, Unknown, 11/23/18) CEFTRIAXONE (Verified Allergy, Unknown, 11/23/18) IOPAMIDOL (Unverified Allergy, Unknown, 01/01/19) Uncoded Allergies: IV CONTRAST (Allergy, Unknown, 01/01/19) CONTRAST (Adverse Reaction, Severe, Rash, 06/23/16) RADIOCONTRAST - RASH, ITCHING Patient History PMH Narrative Sickle cell PSxH Narrative Splenectomy Nursing Documentation-PMH Hx Pacemaker: No Hx Asthma: Yes Hx COPD: No Hx Diabetes: No Hx Cancer: No Hx Gastrointestinal Problems: No Hx Dialysis: No Hx Neurological Problems: No Hx Cerebrovascular Accident: No Hx Seizures: No Review of Systems Constitutional: Denies: chills, fever Respiratory: Denies: cough, shortness of breath Cardiovascular: Denies: chest pain, palpitations Gastrointestinal: Denies: diarrhea, vomiting Genitourinary: Denies: hematuria, pain Musculoskeletal: Reports: back pain; Denies: joint swelling Skin: Denies: rash, lesions Neurological: Denies: headache, dizziness Physical Exam Vital Signs Date Time Temp Pulse Resp B/P (MAP) Pulse Ox O2 Delivery O2 Flow Rate FiO2 07/15/19 10:53 99.0 62 19 142/81 (101) 95 Room Air Sp02 EP Interpretation: reviewed General Appearance: well appearing, no apparent distress, non-toxic Head: normocephalic, atraumatic Eyes: bilateral eye normal inspection ENT: hearing 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, EOM grossly intact, moist mucus membranes Neck: supple Respiratory: lungs clear, normal breath sounds, no respiratory distress, speaking full sentences Cardiovascular #1: regular rate, rhythm, normal capillary refill Cardiovascular #2: 2+ radial (R), 2+ radial (L) Gastrointestinal: soft, non-distended Rectal: deferred Musculoskeletal: moves extm spontaneously, no lower extremity edema Neurologic: 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 Psychiatric: mood/affect normal Skin: warm/dry, normal turgor Medical Decision Making ER Course Greater than 1 week of consistent pain in knees and and bilateral legs. Pt has been treated as an outpatient with his atmospheric technician with no improvement with pain medication and IVF. Likely sickle cell crisis exacerbation. Will rule out other causes of pain at this time. Will give pain medication and reassess EKG Diagnostic Results EKG Time: 12:46 Rate: normal Rhythm: NSR ST Segments: no acute changes Chest X-Ray Diagnostic Results Chest X-Ray Diagnostic Results : Chest X-Ray Ordered: Yes # of Views/Limited/Complete: 1 View Indication: Shortness of Breath EP Interpretation: Yes PA Xray: Interpretation reviewed Interpretation: no consolidation, no effusion, no pneumothorax Impression: No acute disease PA Scribe Text EXAM: XR Chest, 1 View CLINICAL HISTORY: SOB TECHNIQUE: Frontal view of the chest. COMPARISON: Chest x-ray 05/01/19 FINDINGS: Lungs: Hypoventilatory lungs. Bibasilar lung atelectasis. Mild perihilar interstitial thickening. Pleural space: Unremarkable. No pneumothorax. Heart: Unremarkable. No cardiomegaly. Mediastinum: Unremarkable. Bones/joints: Unremarkable. Tubes, lines and devices: Right chest port. IMPRESSION: Hypoventilatory lungs. Bibasilar lung atelectasis. Mild perihilar interstitial thickening, may be edema or pneumonitis. Last Vital Signs Date Time Temp Pulse Resp B/P (MAP) Pulse Ox O2 Delivery O2 Flow Rate FiO2 07/15/19 11:05 99.0 19 138/81 95 Room Air 07/15/19 10:53 62 Reevaluation Impression Discussed case with Dr Gibson and patient admitted for pain control and further tetsing. pt agreeable w plan. Disposition: ADMITTED INPATIENT Condition: Serious Referrals: Kerline Davenport MD (PCP) Ankit [place] M.D. Jul 15, 2019 13:10
[2019-07-15 13:11] LABS: ANION GAP 8 mmol/L (5-15); BLOOD UREA NITROGEN 5 mg/dL (7-18); CALCIUM 9.2 MG/DL (8.5-10.1); CARBON DIOXIDE 30 MMOL/L (21-32); CHLORIDE 104 MMOL/L (98-107); CREATININE 0.5 MG/DL (0.55-1.30); POTASSIUM 3.7 MMOL/L (3.5-5.1); SODIUM 142 MMOL/L (136-145)
[2019-07-15] MEDS ORDERED: HYDROmorphone 2 MG in NS 55 ML IVPB ONE (13:15)
[2019-07-15 13:25] LABS: ALANINE AMINOTRANSFERASE 45 U/L (12-78); ALBUMIN 4.1 G/DL (3.4-5.0); ALKALINE PHOSPHATASE 95 U/L (46-116); ASPARTATE AMINO TRANSFERASE 42 U/L (15-37); BILIRUBIN,TOTAL 1.9 MG/DL (0.2-1.0)
[2019-07-15 13:28] LABS: BILIRUBIN,DIRECT 0.5 MG/DL (0.0-0.3)
--- NOTE | 2019-07-15 16:05 | NUR ---
ED Nurse Note: report given Elsly from
--- NOTE | 2019-07-15 16:15 | NUR ---
TRANSFER TO FLOOR: Patient transferred to MED SURG per ERMD order via gurney by parts identification technician, pt vss, resp even and unlabored on RA, report was given to EDU Brown and endorsed care, all belongings sent w/ pt w/ completed list. port-a-cath intact.
[2019-07-15 16:20] VITALS: BP 147/73
--- NOTE | 2019-07-15 16:20 | NUR ---
NURSE NOTES: Patient received from ER via [place] on RA, in stable condition to 320-2. Patient alert, oriented x4, calm. Pain to bilateral legs 8/10. RUC Port-a-Cath in place, dressing CDI. Vitals assessed. Skin warm, pulses palpable. Oriented patient to room and call light. All belongings reviewed with patient and Paresh INGRAM. Reviewed home medications with patient. Left message for Dr. Bearden for admission orders, awaiting call back. Bed in lowest position, call light in reach, will continue to monitor.
[2019-07-15] MEDS ORDERED: Albuterol 90mcg Inhaler 8gm INH PRN (18:30)
[2019-07-15] MEDS: D5 1/2NS 1,000 ML IV SCH (18:42)
[2019-07-15] MEDS: DiphenhydrAMINE 50mg/ml Inj IVP PRN ×2 (18:47→23:01)
--- NOTE | 2019-07-15 18:50 | NUR ---
NURSE NOTES: Admission orders received from Dr. Bearden, reviewed all home medications with Dr. Bearden. Patient updated on new orders, verbalized understanding. IVF (D5 1/2 NS at 100ml/hr) started as ordered via right port-a-cath. Medicated patient with Dilaudid 2 mg IV and Benadryl 50 mg IV at 1848 for pain to bilateral legs 810. RT called for assessment and to start O2 therapy. Provided water/juice/snacks. Dietary called for Regular diet tray, patient received it.
--- NOTE | 2019-07-15 19:30 | NUR ---
HAND-OFF: Report given to Augie SORENSEN, rounds made. Endorsed new admission orders.
[2019-07-15 20:00] VITALS: BP 127/55
--- NOTE | 2019-07-15 20:09 | NUR ---
NURSE NOTES: Received report from EDU Brown. Patient is lying on left side in bed. He c/o leg pain 5/10 down from a 7/10 after recent medication administration. Right sided port-a-cath is running fluids and is asymptomatic and intact. No c/o SOB on 2L oxygen via NC. Bed in low and locked position and call light within reach. will continue plan of care.
[2019-07-15] MEDS: Heparin 5000 units/ml inj SUBQ SCH (22:00)
[2019-07-16] VITALS (7 sets, daily range): BP systolic 116–140; BP diastolic 64–98
[2019-07-16] MEDS: DiphenhydrAMINE 50mg/ml Inj IVP PRN ×5 (03:37→22:54)
[2019-07-16] MEDS: D5 1/2NS 1,000 ML IV SCH ×3 (03:50→23:12)
[2019-07-16 06:06] LABS: BASOPHILS % (AUTO) 2.3 % (0.0-2.0); EOSINOPHILS % (AUTO) 1.5 % (0.0-3.0); HEMATOCRIT 27.1 % (42.0-52.0); HEMOGLOBIN 8.4 G/DL (14.2-18.0); LYMPHOCYTES % (AUTO) 45.3 % (20.0-45.0); MEAN CORPUSCULAR VOLUME 82 FL (80-99); MONOCYTES % (AUTO) 6.7 % (1.0-10.0); NEUTROPHILS % (AUTO) 44.2 % (45.0-75.0); PLATELET COUNT 321 K/UL (150-450); RED BLOOD COUNT 3.31 M/UL (4.70-6.10); RED CELL DISTRIBUTION WIDTH 17.4 % (11.6-14.8); WHITE BLOOD COUNT 14.3 K/UL (4.8-10.8)
[2019-07-16] MEDS: Heparin 5000 units/ml inj SUBQ SCH ×3 (06:33→22:00)
[2019-07-16 06:39] LABS: ALANINE AMINOTRANSFERASE 37 U/L (12-78); ALBUMIN 3.3 G/DL (3.4-5.0); ALBUMIN/GLOBULIN RATIO 0.9 (1.0-2.7); ALKALINE PHOSPHATASE 75 U/L (46-116); ANION GAP 4 mmol/L (5-15); ASPARTATE AMINO TRANSFERASE 31 U/L (15-37); BILIRUBIN,TOTAL 1.6 MG/DL (0.2-1.0); BLOOD UREA NITROGEN 5 mg/dL (7-18); CALCIUM 8.2 MG/DL (8.5-10.1); CARBON DIOXIDE 31 MMOL/L (21-32); CHLORIDE 106 MMOL/L (98-107); CREATININE 0.6 MG/DL (0.55-1.30); POTASSIUM 3.5 MMOL/L (3.5-5.1); SODIUM 141 MMOL/L (136-145)
[2019-07-16 07:10] LABS: BILIRUBIN,DIRECT 0.4 MG/DL (0.0-0.3)
--- NOTE | 2019-07-16 07:35 | NUR ---
HAND-OFF: Report given to Hardeep Dennis RN. Patient is stable.
--- NOTE | 2019-07-16 07:41 | NUR ---
NURSE NOTES: Received report from EDU Ghosh. Rounding done with outgoing nurse. Pt a/o x 4, in bed. No respiratory distress noted. O2 is on. Pt mentioned pain level is 7/10. Pain medicine will be given as MD ordered. D51/2NS IV fluid is running @100ml/hr. Bed in lowest position, call light within reach. Will continue to monitor.
[2019-07-16] MEDS: Aspirin Baby 81mg ORAL SCH (08:37)
[2019-07-16] MEDS: Hydroxyurea 500mg cap ORAL SCH (08:38)
[2019-07-16] MEDS ORDERED: D5 1/2NS 1000ml IV ONE (15:47)
--- NOTE | 2019-07-16 19:28 | History & Physical ---
History and Physical History & Physicial Dictated for Int med-Dr Bearden no. [id number] Edilson Rubalcava MD Jul 16, 2019 19:28
--- NOTE | 2019-07-16 19:30 | NUR ---
NURSE NOTES: Received report from EDU Meier. No distress noted. Patient in bed,bed in low position, locked, side rails up x2, call light within reach. Portacath intact, patent. Will continue to monitor.
--- NOTE | 2019-07-16 19:52 | NUR ---
HAND-OFF: Report given to EDU Montanez. Pt is stable.
--- NOTE | 2019-07-17 03:00 | History and Physical Report ---
DATE OF ADMISSION: 07/15/2019 CHIEF COMPLAINT: The patient is a 23-year-old male who presents with a chief complaint of bilateral leg pain. HISTORY OF PRESENT ILLNESS: The patient was admitted to [facility] in April 2019 with similar symptoms. Please see history and physical and discharge summary dictated at that time. The patient has a history of sickle cell disease and beta thalassemia. The patient has frequent sickle cell crisis. The patient presented to [place] emergency room complaining of 1-week history of pain in his bilateral knees and legs. The patient states this is typical of his sickle cell crisis. The patient was admitted with bilateral knee and leg pain and acute sickle cell crisis. REVIEW OF SYSTEMS: CONSTITUTIONAL: The patient denies weight loss or weight gain. The patient denies fevers or chills. HEENT: The patient denies ear or throat pain. The patient denies headache. CARDIOVASCULAR: The patient denies palpitations or chest pain. CHEST: The patient denies wheeze or shortness of breath. ABDOMINAL: The patient denies nausea, vomiting, diarrhea, or constipation. GENITOURINARY: The patient denies dysuria or increased of frequency of urination. NEUROMUSCULAR: The patient complains of bilateral knee and leg pain as above. The patient denies seizures or generalized weakness. PAST MEDICAL HISTORY: Significant for: 1. Sickle cell disease. 2. Beta thalassemia. 3. Asthma. 4. Avascular necrosis of left hip pain. PAST SURGICAL HISTORY: Significant for 1. 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 2. Port-A-Cath placement in the right chest. CURRENT MEDICATIONS: 1. Albuterol metered-dose inhaler two puffs p.o. q.i.d. p.r.n. 2. Aspirin 81 mg p.o. daily. 3. Folic acid 1 mg p.o. daily . 4. Dilaudid 8 mg one tablet p.o. q.4 hours p.r.n. 5. Hydroxyurea 1500 mg p.o. daily. 6. Oxycodone ER 20 mg one tablet p.o. twice daily. ALLERGIES: 1. Capsaicin. 2. Ceftriaxone. 3. IV contrast dye. 4. Iopamidol. SOCIAL HISTORY: The patient is single and lives with his parents. The patient denies tobacco or alcohol use. PHYSICAL EXAMINATION: VITAL SIGNS: Temperature 99.0, respirations 19, pulse 62, blood pressure 142/81. GENERAL: The patient is well-developed and well-nourished male, in no apparent distress. HEENT: Eyes, pupils are equal and responsive to light and accommodation. Extraocular movements are intact. NECK: Supple without lymphadenopathy. CHEST: Lungs are clear to auscultation bilaterally without wheezes or rales. CARDIOVASCULAR: Regular rate. S1 and S2 are normal without murmurs, rubs, or gallops. ABDOMEN: Soft, nontender, nondistended. Positive bowel sounds. No evidence of hepatosplenomegaly. Currently, no rebound or guarding noted. EXTREMITIES: Negative for clubbing, cyanosis, or edema. RECTAL/GENITAL: Not performed. NEUROLOGIC: Cranial nerves II through XII are grossly intact without focal deficits. Motor strength is 5/5 bilaterally. Deep tendon reflexes are 2+ plantar. LABORATORY AND DIAGNOSTIC DATA: Chest x-ray demonstrated bibasilar atelectasis with mild perihilar interstitial thickening consistent with pneumonitis or bronchitis. WBC 14.3, hemoglobin 10.5, hematocrit 34.7, platelets 431,000. Sodium 142, potassium 3.7, chloride 104, CO2 30, BUN 5, creatinine 0.5, glucose 107. Total bilirubin elevated at 1.9, direct bilirubin 0.5, AST elevated at 42. ASSESSMENT: This is a 23-year-old male. 1. Sickle cell crisis. 2. Sickle cell disease. 3. Beta thalassemia. 4. Asthma. 5. Avascular necrosis of the hip. 6. Leukocytosis. TREATMENT: 1. Sickle cell crisis/sickle cell disease. The patient has been started on intravenous fluids. Pain control will be via intravenous Dilaudid. Continue hydroxyurea and folic acid as above. 2. Beta thalassemia. 3. Asthma. Continue albuterol metered-dose inhaler as above. 4. Avascular necrosis of left hip pain. 5. Leukocytosis may be secondary to acute sickle cell crisis. Edilson Rubalcava M.D. DR: Sheryl JOB#: [id number] CC:
[2019-07-17 04:00] VITALS: BP 134/72
[2019-07-17] MEDS: DiphenhydrAMINE 50mg/ml Inj IVP PRN ×4 (04:23→19:54)
[2019-07-17] MEDS: Heparin 5000 units/ml inj SUBQ SCH ×3 (06:00→21:23)
--- NOTE | 2019-07-17 07:14 | NUR ---
HAND-OFF: Report given to EDU Berrios. Aware that patient refused lab draw, wanted it done from [facility]. Night charge nurse aware as well, states needs MD order.
--- NOTE | 2019-07-17 07:43 | NUR ---
NURSE NOTES: Spoke to regarding port-a-cath use for blood test and new order received. Order read back and carried out.
--- NOTE | 2019-07-17 07:50 | NUR ---
NURSE NOTES: AWAKE/ALERT. PAIN SCALE 8/10. IN NO DIATRESS.
[2019-07-17 08:00] VITALS: BP 118/72
[2019-07-17 08:27] LABS: ANION GAP 6 mmol/L (5-15); BLOOD UREA NITROGEN 5 mg/dL (7-18); CALCIUM 8.4 MG/DL (8.5-10.1); CARBON DIOXIDE 28 MMOL/L (21-32); CHLORIDE 106 MMOL/L (98-107); CREATININE 0.5 MG/DL (0.55-1.30); POTASSIUM 3.9 MMOL/L (3.5-5.1); SODIUM 140 MMOL/L (136-145)
[2019-07-17] MEDS: Aspirin Baby 81mg ORAL SCH (08:28)
[2019-07-17] MEDS: Hydroxyurea 500mg cap ORAL SCH (08:28)
[2019-07-17 08:33] LABS: HEMATOCRIT 28.5 % (42.0-52.0); HEMOGLOBIN 8.9 G/DL (14.2-18.0); MEAN CORPUSCULAR VOLUME 80 FL (80-99); PLATELET COUNT 346 K/UL (150-450); RED BLOOD COUNT 3.58 M/UL (4.70-6.10); RED CELL DISTRIBUTION WIDTH 17.1 % (11.6-14.8); WHITE BLOOD COUNT 14.7 K/UL (4.8-10.8)
[2019-07-17] MEDS: D5 1/2NS 1,000 ML IV SCH ×2 (09:46→20:14)
[2019-07-17 12:00] VITALS: BP 136/72
[2019-07-17 16:00] VITALS: BP 127/66
--- NOTE | 2019-07-17 16:23 | NUR ---
CASE MANAGEMENT: INITIAL REVIEW 23YR OLD MALE FROM HOME CC: PAIN SI: SICKLE CELL CRISIS . PAIN 98.4 53 17 132/80 96% ON RA WBC 14.3 H/H 10.5 / 34.7 BUN 5 IS: IV NS BOLUS X1 IV DILAUDID X1 IV ZOFRAN X1 CXRAY \: 3E MED/ SURG PLAN: OK TO USE COTY CATH DCP: HOME WHEN MEDICALLY CLEARED CASE MANAGEMENT: REVIEW 07/16/19 SI: SICKLE CELL CRISIS . PAIN 99.1 57 20 116/77 99% ON RA BUN 5 BG 134 CA+8.2 WBC 14.3 H/H 8.4/27.1 IS:IV D5 @100ML/HR IV MORPHINE Q2HR/PRN IV BENADRYL Q4/PRN HEPARIN SQ Q8HR ASA PO QD FOLATE PO QD HYDREA PO QD \: 3E MED SURG CASE MANAGEMENT: REVIEW 07/17/19 SI: SICKLE CELL CRISIS . PAIN 98.9 62 20 118/72 98% ON RA BUN 5 BG 134 CA+8.4 WBC 14.7 H/H 8.9/28.5 IS:IV D5 @100ML/HR IV MORPHINE Q2HR/PRN IV BENADRYL Q4/PRN HEPARIN SQ Q8HR ASA PO QD FOLATE PO QD HYDREA PO QD \: 3E MED SURG
--- NOTE | 2019-07-17 17:48 | Internal Med Progress Note ---
Subjective Date of Service: Jul 17, 2019 Physician Name Edilson Rubalcava Attending Physician Jersey Bearden MD Current Medications Medications (Trade) Dose Ordered Sig/Arianne Route PRN Reason Start Time Stop Time Status Last Admin Dose Admin Acetaminophen (Tylenol) 650 mg Q6H PRN ORAL Mild Pain/Temp > 100.5 07/15/19 18:15 08/14/19 18:14 Albuterol Sulfate (Proventil MDI) 2 puff Q4H PRN INH Shortness of Breath 07/15/19 18:30 08/14/19 18:29 Aspirin (ASA) 81 mg DAILY ORAL 07/16/19 09:00 08/15/19 08:59 07/17/19 08:28 Dextrose/Sodium Chloride 1,000 ml @ 100 mls/hr Q10H IV 07/15/19 18:15 08/14/19 18:14 07/17/19 09:46 Diphenhydramine HCl (Benadryl) 50 mg Q4H PRN IVP Itching 07/15/19 18:15 08/14/19 18:14 07/17/19 15:25 Folic Acid (Folate) 1 mg DAILY ORAL 07/16/19 09:00 08/15/19 08:59 07/17/19 08:28 Heparin Sodium (Porcine) (Heparin 5000 units/ml) 5,000 units EVERY 8 HOURS SUBQ 07/15/19 22:00 08/14/19 21:59 07/17/19 13:36 Hydromorphone HCl (Dilaudid) 2 mg Q2H PRN IVP For Pain 07/15/19 18:15 07/22/19 18:14 07/17/19 17:34 Hydroxyurea (Hydrea) 1,500 mg DAILY ORAL 07/16/19 09:00 07/21/19 08:59 07/17/19 08:28 Ondansetron HCl (Zofran) 4 mg Q4H PRN IVP Nausea & Vomiting 07/15/19 18:15 08/14/19 18:14 Allergies: Coded Allergies: CAPSAICIN (Verified Allergy, Unknown, 11/23/18) CEFTRIAXONE (Verified Allergy, Unknown, 11/23/18) IOPAMIDOL (Unverified Allergy, Unknown, 01/01/19) Uncoded Allergies: IV CONTRAST (Allergy, Unknown, 01/01/19) CONTRAST (Adverse Reaction, Severe, Rash, 06/23/16) RADIOCONTRAST - RASH, ITCHING ROS Limited/Unobtainable: No Constitutional: Reports: no symptoms HEENT: Reports: no symptoms Cardiovascular: Reports: no symptoms Respiratory: Reports: no symptoms Gastrointestinal/Abdominal: Reports: no symptoms Genitourinary: Reports: no symptoms Neurologic/Psychiatric: Reports: no symptoms Subjective 23 YO M admitted with sickle cell crisis. Cover for Int Med-Dr Bearden Objective Last Vital Signs Date Time Temp Pulse Resp B/P (MAP) Pulse Ox O2 Delivery O2 Flow Rate FiO2 07/17/19 16:00 99.0 54 20 127/66 (86) 98 07/17/19 08:19 Room Air 07/17/19 06:30 1.0 24 General Appearance: WD/WN, mild distress, obese EENT: PERRL/EOMI, normal ENT inspection, TMs normal Neck: non-tender, normal alignment, supple, normal inspection Cardiovascular: normal peripheral pulses, normal rate, regular rhythm, no gallop/murmur, no JVD Respiratory/Chest: chest wall non-tender, lungs clear, normal breath sounds, no respiratory distress, no accessory muscle use Abdomen: normal bowel sounds, non tender, soft, no organomegaly, no mass Extremities: normal range of motion, non-tender 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, no motor/sensory deficits Skin: normal pigmentation, warm/dry Laboratory Tests Test 07/17/19 08:00 White Blood Count 14.7 K/UL (4.8-10.8) H Red Blood Count 3.58 M/UL (4.70-6.10) L Hemoglobin 8.9 G/DL (14.2-18.0) L Hematocrit 28.5 % (42.0-52.0) L Mean Corpuscular Volume 80 FL (80-99) Mean Corpuscular Hemoglobin 25.0 PG (27.0-31.0) L Mean Corpuscular Hemoglobin Concent 31.3 G/DL (32.0-36.0) L Red Cell Distribution Width 17.1 % (11.6-14.8) H Platelet Count 346 K/UL (150-450) Mean Platelet Volume 7.3 FL (6.5-10.1) Neutrophils (%) (Auto) % (45.0-75.0) Lymphocytes (%) (Auto) % (20.0-45.0) Monocytes (%) (Auto) % (1.0-10.0) Eosinophils (%) (Auto) % (0.0-3.0) Basophils (%) (Auto) % (0.0-2.0) Differential Total Cells Counted 100 Neutrophils % (Manual) 51 % (45-75) Lymphocytes % (Manual) 42 % (20-45) Monocytes % (Manual) 5 % (1-10) Eosinophils % (Manual) 2 % (0-3) Basophils % (Manual) 0 % (0-2) Band Neutrophils 0 % (0-8) Nucleated Red Blood Cells 40 /100 WBC Platelet Estimate Adequate Platelet Morphology Normal Polychromasia 3+ Hypochromasia 1+ Anisocytosis 1+ Target Cells 3+ Sodium Level 140 MMOL/L (136-145) Potassium Level 3.9 MMOL/L (3.5-5.1) Chloride Level 106 MMOL/L (98-107) Carbon Dioxide Level 28 MMOL/L (21-32) Anion Gap 6 mmol/L (5-15) Blood Urea Nitrogen 5 mg/dL (7-18) L Creatinine 0.5 MG/DL (0.55-1.30) L Estimat Glomerular Filtration Rate > 60 mL/min (>60) Glucose Level 107 MG/DL (74-106) H Calcium Level 8.4 MG/DL (8.5-10.1) L Intake and Output 07/16/19 07/17/19 19:00 07:00 Intake Total 1100 ml 2040 ml Output Total 1300 ml 1450 ml Balance -200 ml 590 ml Intake Oral 740 ml IV Total 1100 ml 1300 ml Output Urine Total 1300 ml 1450 ml Assessment/Plan Problem List: (1) Avascular necrosis of bone of left hip (2) Asthma (3) Beta thalassemia major (4) Sickle cell disease Assessment & Plan: IV fluids. Pain management - oral and IV (5) Leukocytosis (6) Sickle cell crisis Status: not improved Edilson Rubalcava MD Jul 17, 2019 17:48
--- NOTE | 2019-07-17 19:08 | NUR ---
NURSE NOTES: RESTING . IN NO APPARENT DISTRESS.
--- NOTE | 2019-07-17 19:15 | NUR ---
HAND-OFF: Report given to EDU Berrios. Rounds done. Patient sitting up in chair in no apparent distress.
--- NOTE | 2019-07-17 19:24 | NUR ---
HAND-OFF: Report given to Johnathan HEDRICK RN.
[2019-07-17 20:00] VITALS: BP 131/81
--- NOTE | 2019-07-17 20:15 | NUR ---
NURSE NOTES: Discussed pain control plan for the night. Patient in bed,bed in low position, locked, side rails up x2, call light within reach. Portacath intact, patent. Will continue to monitor.
[2019-07-18] VITALS (7 sets, daily range): BP systolic 105–151; BP diastolic 63–86
[2019-07-18] MEDS: DiphenhydrAMINE 50mg/ml Inj IVP PRN ×5 (01:06→20:09)
[2019-07-18] MEDS: Heparin 5000 units/ml inj SUBQ SCH ×3 (06:32→21:22)
[2019-07-18] MEDS: D5 1/2NS 1,000 ML IV SCH ×2 (06:46→17:02)
--- NOTE | 2019-07-18 07:05 | NUR ---
HAND-OFF: Report given to EDU Lobo.
[2019-07-18 07:15] LABS: ANION GAP 5 mmol/L (5-15); BLOOD UREA NITROGEN 6 mg/dL (7-18); CALCIUM 8.5 MG/DL (8.5-10.1); CARBON DIOXIDE 30 MMOL/L (21-32); CHLORIDE 106 MMOL/L (98-107); CREATININE 0.6 MG/DL (0.55-1.30); POTASSIUM 3.8 MMOL/L (3.5-5.1); SODIUM 141 MMOL/L (136-145)
--- NOTE | 2019-07-18 07:27 | NUR ---
NURSE NOTES: MIR. PAIN SCALE 8/10. IN NO DISTRESS.
[2019-07-18 07:49] LABS: BASOPHILS % (AUTO) 2.2 % (0.0-2.0); EOSINOPHILS % (AUTO) 2.1 % (0.0-3.0); HEMATOCRIT 27.7 % (42.0-52.0); LYMPHOCYTES % (AUTO) 46.4 % (20.0-45.0); MEAN CORPUSCULAR VOLUME 78 FL (80-99); MONOCYTES % (AUTO) 6.3 % (1.0-10.0); NEUTROPHILS % (AUTO) 42.9 % (45.0-75.0); PLATELET COUNT 330 K/UL (150-450); RED BLOOD COUNT 3.55 M/UL (4.70-6.10); RED CELL DISTRIBUTION WIDTH 14.4 % (11.6-14.8); WHITE BLOOD COUNT 12.8 K/UL (4.8-10.8)
[2019-07-18] MEDS: Aspirin Baby 81mg ORAL SCH (08:34)
[2019-07-18] MEDS: Hydroxyurea 500mg cap ORAL SCH (08:35)
--- NOTE | 2019-07-18 12:10 | Internal Med Progress Note ---
Subjective Date of Service: Jul 18, 2019 Physician Name Edilson Rubalcava Attending Physician Jersey Bearden MD Current Medications Medications (Trade) Dose Ordered Sig/Arianne Route PRN Reason Start Time Stop Time Status Last Admin Dose Admin Acetaminophen (Tylenol) 650 mg Q6H PRN ORAL Mild Pain/Temp > 100.5 07/15/19 18:15 08/14/19 18:14 Albuterol Sulfate (Proventil MDI) 2 puff Q4H PRN INH Shortness of Breath 07/15/19 18:30 08/14/19 18:29 Aspirin (ASA) 81 mg DAILY ORAL 07/16/19 09:00 08/15/19 08:59 07/18/19 08:34 Chlorhexidine Gluconate (Jihan-Hex 2%) 1 applic DAILY@2000 TOPIC 07/18/19 20:00 08/17/19 19:59 Dextrose/Sodium Chloride 1,000 ml @ 100 mls/hr Q10H IV 07/15/19 18:15 08/14/19 18:14 07/18/19 06:46 Diphenhydramine HCl (Benadryl) 50 mg Q4H PRN IVP Itching 07/15/19 18:15 08/14/19 18:14 07/18/19 10:34 Folic Acid (Folate) 1 mg DAILY ORAL 07/16/19 09:00 08/15/19 08:59 07/18/19 08:35 Heparin Sodium (Porcine) (Heparin 5000 units/ml) 5,000 units EVERY 8 HOURS SUBQ 07/15/19 22:00 08/14/19 21:59 07/18/19 06:32 Hydromorphone HCl (Dilaudid) 2 mg Q2H PRN IVP For Pain 07/15/19 18:15 07/22/19 18:14 07/18/19 10:34 Hydroxyurea (Hydrea) 1,500 mg DAILY ORAL 07/16/19 09:00 07/21/19 08:59 07/18/19 08:35 Ondansetron HCl (Zofran) 4 mg Q4H PRN IVP Nausea & Vomiting 07/15/19 18:15 08/14/19 18:14 Allergies: Coded Allergies: CAPSAICIN (Verified Allergy, Unknown, 11/23/18) CEFTRIAXONE (Verified Allergy, Unknown, 11/23/18) IOPAMIDOL (Unverified Allergy, Unknown, 01/01/19) Uncoded Allergies: IV CONTRAST (Allergy, Unknown, 01/01/19) CONTRAST (Adverse Reaction, Severe, Rash, 06/23/16) RADIOCONTRAST - RASH, ITCHING ROS Limited/Unobtainable: No Constitutional: Reports: no symptoms HEENT: Reports: no symptoms Cardiovascular: Reports: no symptoms Respiratory: Reports: no symptoms Gastrointestinal/Abdominal: Reports: no symptoms Genitourinary: Reports: no symptoms Neurologic/Psychiatric: Reports: no symptoms Subjective 23 YO M admitted with sickle cell crisis. Cover for Int Med-Dr Bearden Objective Last Vital Signs Date Time Temp Pulse Resp B/P (MAP) Pulse Ox O2 Delivery O2 Flow Rate FiO2 07/18/19 12:01 98.7 54 18 147/65 (92) 97 54 07/18/19 09:50 Nasal Cannula 2.0 28 General Appearance: WD/WN, alert, mild distress EENT: PERRL/EOMI, normal ENT inspection, pharynx normal Neck: non-tender, normal alignment, supple, normal inspection Cardiovascular: normal peripheral pulses, normal rate, regular rhythm, no gallop/murmur, no JVD Respiratory/Chest: chest wall non-tender, lungs clear, normal breath sounds, no respiratory distress, no accessory muscle use Abdomen: normal bowel sounds, non tender, soft, no organomegaly, no mass Extremities: normal range of motion, non-tender 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, no motor/sensory deficits Skin: normal pigmentation, warm/dry Laboratory Tests Test 07/18/19 06:30 White Blood Count 12.8 K/UL (4.8-10.8) H Red Blood Count 3.55 M/UL (4.70-6.10) L Hemoglobin 9.0 G/DL (14.2-18.0) L Hematocrit 27.7 % (42.0-52.0) L Mean Corpuscular Volume 78 FL (80-99) L Mean Corpuscular Hemoglobin 25.4 PG (27.0-31.0) L Mean Corpuscular Hemoglobin Concent 32.6 G/DL (32.0-36.0) Red Cell Distribution Width 14.4 % (11.6-14.8) Platelet Count 330 K/UL (150-450) Mean Platelet Volume 6.2 FL (6.5-10.1) L Neutrophils (%) (Auto) 42.9 % (45.0-75.0) L Lymphocytes (%) (Auto) 46.4 % (20.0-45.0) H Monocytes (%) (Auto) 6.3 % (1.0-10.0) Eosinophils (%) (Auto) 2.1 % (0.0-3.0) Basophils (%) (Auto) 2.2 % (0.0-2.0) H Sodium Level 141 MMOL/L (136-145) Potassium Level 3.8 MMOL/L (3.5-5.1) Chloride Level 106 MMOL/L (98-107) Carbon Dioxide Level 30 MMOL/L (21-32) Anion Gap 5 mmol/L (5-15) Blood Urea Nitrogen 6 mg/dL (7-18) L Creatinine 0.6 MG/DL (0.55-1.30) Estimat Glomerular Filtration Rate > 60 mL/min (>60) Glucose Level 96 MG/DL (74-106) Calcium Level 8.5 MG/DL (8.5-10.1) Intake and Output 07/17/19 07/18/19 18:59 06:59 Intake Total 2518 ml 1955 ml Output Total 2000 ml 2500 ml Balance 518 ml -545 ml Intake Oral 1318 ml 780 ml IV Total 1200 ml 1175 ml Output Urine Total 2000 ml 2500 ml # Voids 3 4 Assessment/Plan Problem List: (1) Avascular necrosis of bone of left hip (2) Asthma (3) Beta thalassemia major (4) Sickle cell disease Assessment & Plan: IV fluids. Pain management - oral and IV (5) Leukocytosis (6) Sickle cell crisis Status: not improved Edilson Rubalcava MD Jul 18, 2019 12:10
[2019-07-18] MEDS: oxyCONTIN 20mg tab ORAL SCH ×2 (13:28→21:13)
--- NOTE | 2019-07-18 13:46 | NUR ---
CASE MANAGEMENT:REVIEW 07/18/19 SI:SICKLE CELL CRISIS 98.7 54 18 147/65 97% ON 2L/NC WBC+12.8 H/H-9.0/27.7 IS: IVF@100/HR OXYCONTIN PO Q12 ASA PO QD HYDREA PO QD HEPARIN Q8HRS IV DILAUDID Q2HRS PRN : MED/SURG STATUS 3 EAST DCP: FROM HOME
[2019-07-18] MEDS ORDERED: D5 1/2NS 1000ml IV ONE (15:20)
--- NOTE | 2019-07-18 19:00 | NUR ---
NURSE NOTES: AWAKE IN BED . NO APPARENT DISTRESS.
--- NOTE | 2019-07-18 19:37 | NUR ---
HAND-OFF: Report given to Kenny CHAUDHRY RN.
[2019-07-18] MEDS: Dyna-Hex 2% Top Sol 2oz TOPIC SCH (20:09)
[2019-07-19] VITALS: BP 136/80
[2019-07-19] MEDS: DiphenhydrAMINE 50mg/ml Inj IVP PRN ×5 (01:21→20:13)
[2019-07-19] MEDS: D5 1/2NS 1,000 ML IV SCH ×3 (01:59→22:18)
--- NOTE | 2019-07-19 03:25 | NUR ---
RESTING IN BED,PAIN LEVEL ON INITIAL ROUNDS IS 8.PAIN MEDS.GIVEN NEEDED.NO COMPLAINT OF CHEST PAIN.
[2019-07-19 04:00] VITALS: BP 141/79
[2019-07-19 05:53] LABS: HEMATOCRIT 28.8 % (42.0-52.0); MEAN CORPUSCULAR VOLUME 80 FL (80-99); PLATELET COUNT 345 K/UL (150-450); RED CELL DISTRIBUTION WIDTH 16.8 % (11.6-14.8)
[2019-07-19 06:09] LABS: ANION GAP 5 mmol/L (5-15); BLOOD UREA NITROGEN 5 mg/dL (7-18); CALCIUM 8.8 MG/DL (8.5-10.1); CARBON DIOXIDE 30 MMOL/L (21-32); CHLORIDE 106 MMOL/L (98-107); CREATININE 0.5 MG/DL (0.55-1.30); POTASSIUM 3.9 MMOL/L (3.5-5.1); SODIUM 141 MMOL/L (136-145)
[2019-07-19] MEDS: Heparin 5000 units/ml inj SUBQ SCH ×3 (06:29→22:00)
--- NOTE | 2019-07-19 07:17 | NUR ---
HAND-OFF: Report given to EDU MENA. PATIENT IN STABLE CONDITION.
--- NOTE | 2019-07-19 07:19 | NUR ---
NURSE NOTES: MIR.PAIN SCALE 8/10. IN NO ACUTE DISTRESS.
[2019-07-19 08:00] VITALS: BP 137/75
[2019-07-19] MEDS: Hydroxyurea 500mg cap ORAL SCH (08:35)
[2019-07-19] MEDS: Aspirin Baby 81mg ORAL SCH (08:35)
[2019-07-19] MEDS: oxyCONTIN 20mg tab ORAL SCH ×2 (09:29→21:00)
--- NOTE | 2019-07-19 11:50 | NUR ---
CASE MANAGEMENT:REVIEW 07/19/19 SI:SICKLE CELL CRISIS 99.4 63 16 137/75 100% ON RA WBC 16.0 H/H-9.0/28.8 BUN 5 IS: IVF D5@100/HR OXYCONTIN PO Q12 ASA PO QD HYDREA PO QD HEPARIN Q8HRS IV DILAUDID Q2HRS PRN : MED/SURG STATUS 3 EAST DCP: FROM HOME
[2019-07-19 12:00] VITALS: BP 136/69
[2019-07-19 16:00] VITALS: BP 115/75
--- NOTE | 2019-07-19 17:21 | Internal Med Progress Note ---
Subjective Date of Service: Jul 19, 2019 Physician Name Rubalcava,Edilson Attending Physician Jersey Bearden MD Current Medications Medications (Trade) Dose Ordered Sig/Arianne Route PRN Reason Start Time Stop Time Status Last Admin Dose Admin Acetaminophen (Tylenol) 650 mg Q6H PRN ORAL Mild Pain/Temp > 100.5 07/15/19 18:15 08/14/19 18:14 Albuterol Sulfate (Proventil MDI) 2 puff Q4H PRN INH Shortness of Breath 07/15/19 18:30 08/14/19 18:29 Aspirin (ASA) 81 mg DAILY ORAL 07/16/19 09:00 08/15/19 08:59 07/19/19 08:35 Chlorhexidine Gluconate (Jihan-Hex 2%) 1 applic DAILY@2000 TOPIC 07/18/19 20:00 08/17/19 19:59 07/18/19 20:09 Dextrose/Sodium Chloride 1,000 ml @ 100 mls/hr Q10H IV 07/15/19 18:15 08/14/19 18:14 07/19/19 13:01 Diphenhydramine HCl (Benadryl) 50 mg Q4H PRN IVP Itching 07/15/19 18:15 08/14/19 18:14 07/19/19 15:35 Folic Acid (Folate) 1 mg DAILY ORAL 07/16/19 09:00 08/15/19 08:59 07/19/19 08:35 Heparin Sodium (Porcine) (Heparin 5000 units/ml) 5,000 units EVERY 8 HOURS SUBQ 07/15/19 22:00 08/14/19 21:59 07/19/19 14:38 Hydromorphone HCl (Dilaudid) 2 mg Q2H PRN IVP For Pain 07/15/19 18:15 07/22/19 18:14 07/19/19 15:35 Hydroxyurea (Hydrea) 1,500 mg DAILY ORAL 07/16/19 09:00 07/21/19 08:59 07/19/19 08:35 Ondansetron HCl (Zofran) 4 mg Q4H PRN IVP Nausea & Vomiting 07/15/19 18:15 08/14/19 18:14 Oxycodone HCl (OxyCONTIN) 20 mg Q12HR ORAL 07/18/19 12:15 07/25/19 12:14 07/19/19 09:29 Allergies: Coded Allergies: CAPSAICIN (Verified Allergy, Unknown, 11/23/18) CEFTRIAXONE (Verified Allergy, Unknown, 11/23/18) IOPAMIDOL (Unverified Allergy, Unknown, 01/01/19) Uncoded Allergies: IV CONTRAST (Allergy, Unknown, 01/01/19) CONTRAST (Adverse Reaction, Severe, Rash, 06/23/16) RADIOCONTRAST - RASH, ITCHING ROS Limited/Unobtainable: No Constitutional: Reports: no symptoms HEENT: Reports: no symptoms Cardiovascular: Reports: no symptoms Respiratory: Reports: no symptoms Gastrointestinal/Abdominal: Reports: no symptoms Genitourinary: Reports: no symptoms Neurologic/Psychiatric: Reports: no symptoms Subjective 23 YO M admitted with sickle cell crisis. Cover for Int Med-Dr Bearden Objective Last Vital Signs Date Time Temp Pulse Resp B/P (MAP) Pulse Ox O2 Delivery O2 Flow Rate FiO2 07/19/19 16:05 99.7 07/19/19 16:00 65 16 115/75 (88) 98 07/19/19 09:06 Room Air 21 07/18/19 09:50 2.0 Laboratory Tests Test 07/19/19 04:40 White Blood Count 16.0 K/UL (4.8-10.8) H Red Blood Count 3.60 M/UL (4.70-6.10) L Hemoglobin 9.0 G/DL (14.2-18.0) L Hematocrit 28.8 % (42.0-52.0) L Mean Corpuscular Volume 80 FL (80-99) Mean Corpuscular Hemoglobin 25.1 PG (27.0-31.0) L Mean Corpuscular Hemoglobin Concent 31.5 G/DL (32.0-36.0) L Red Cell Distribution Width 16.8 % (11.6-14.8) H Platelet Count 345 K/UL (150-450) Mean Platelet Volume 6.5 FL (6.5-10.1) Neutrophils (%) (Auto) % (45.0-75.0) Lymphocytes (%) (Auto) % (20.0-45.0) Monocytes (%) (Auto) % (1.0-10.0) Eosinophils (%) (Auto) % (0.0-3.0) Basophils (%) (Auto) % (0.0-2.0) Differential Total Cells Counted 100 Neutrophils % (Manual) 33 % (45-75) L Lymphocytes % (Manual) 54 % (20-45) H Monocytes % (Manual) 6 % (1-10) Eosinophils % (Manual) 7 % (0-3) H Basophils % (Manual) 0 % (0-2) Band Neutrophils 0 % (0-8) Nucleated Red Blood Cells 14 /100 WBC Platelet Estimate Adequate Platelet Morphology Normal Hypochromasia 2+ Anisocytosis 1+ Sodium Level 141 MMOL/L (136-145) Potassium Level 3.9 MMOL/L (3.5-5.1) Chloride Level 106 MMOL/L (98-107) Carbon Dioxide Level 30 MMOL/L (21-32) Anion Gap 5 mmol/L (5-15) Blood Urea Nitrogen 5 mg/dL (7-18) L Creatinine 0.5 MG/DL (0.55-1.30) L Estimat Glomerular Filtration Rate > 60 mL/min (>60) Glucose Level 102 MG/DL (74-106) Calcium Level 8.8 MG/DL (8.5-10.1) Intake and Output 07/18/19 07/19/19 18:59 06:59 Intake Total 1820 ml 1900 ml Output Total 2100 ml 950 ml Balance -280 ml 950 ml Intake Oral 720 ml 800 ml IV Total 1100 ml 1100 ml Output Urine Total 2100 ml 950 ml # Voids 5 Objective General Appearance: WD/WN, alert, mild distress EENT: PERRL/EOMI, normal ENT inspection, pharynx normal Neck: non-tender, normal alignment, supple, normal inspection Cardiovascular: normal peripheral pulses, normal rate, regular rhythm, no gallop/murmur, no JVD Respiratory/Chest: chest wall non-tender, lungs clear, normal breath sounds, no respiratory distress, no accessory muscle use Abdomen: normal bowel sounds, non tender, soft, no organomegaly, no mass Extremities: normal range of motion, non-tender 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 Pain management - oral and IV (5) Leukocytosis (6) Sickle cell crisis Edilson Rubalcava MD Jul 19, 2019 17:21
--- NOTE | 2019-07-19 19:00 | NUR ---
NURSE NOTES: up in chair. no acute changes.
--- NOTE | 2019-07-19 19:13 | NUR ---
HAND-OFF: Report given to leela donis rn.
--- NOTE | 2019-07-19 19:44 | Cardiology Report ---
APPROVED REPORT EKG Measurement Heart [id number] Sinus bradycardia Minimal voltage criteria for LVH, may be normal variant Borderline ECG
[2019-07-19 20:00] VITALS: BP 132/77
[2019-07-19] MEDS: Dyna-Hex 2% Top Sol 2oz TOPIC SCH (20:12)
--- NOTE | 2019-07-19 20:24 | NUR ---
NURSE NOTES: Received report from Tyrell RN and Lashell RN. Patient is sitting up in chair. c/o pain 8/10 on left hip and both legs and knees. No c/o SOB. Patient requests to refuse heparin dose for evening. Fluids are running to right port-A-cath asymptomatic. Will continue pain management plan of care.
[2019-07-19] MEDS ORDERED: D5 1/2NS 1000ml IV ONE (22:36)
[2019-07-20] VITALS: BP 139/79
[2019-07-20] MEDS: DiphenhydrAMINE 50mg/ml Inj IVP PRN ×5 (00:30→20:09)
[2019-07-20 04:00] VITALS: BP 136/78
[2019-07-20] MEDS: Heparin 5000 units/ml inj SUBQ SCH ×3 (06:00→22:00)
[2019-07-20 06:42] LABS: ANION GAP 6 mmol/L (5-15); BLOOD UREA NITROGEN 6 mg/dL (7-18); CALCIUM 8.3 MG/DL (8.5-10.1); CARBON DIOXIDE 28 MMOL/L (21-32); CHLORIDE 105 MMOL/L (98-107); CREATININE 0.6 MG/DL (0.55-1.30); POTASSIUM 3.9 MMOL/L (3.5-5.1); SODIUM 139 MMOL/L (136-145)
[2019-07-20 06:55] LABS: BASOPHILS % (AUTO) 1.6 % (0.0-2.0); EOSINOPHILS % (AUTO) 2.7 % (0.0-3.0); HEMATOCRIT 28.4 % (42.0-52.0); HEMOGLOBIN 9.2 G/DL (14.2-18.0); LYMPHOCYTES % (AUTO) 33.7 % (20.0-45.0); MEAN CORPUSCULAR VOLUME 78 FL (80-99); MONOCYTES % (AUTO) 6.7 % (1.0-10.0); NEUTROPHILS % (AUTO) 55.3 % (45.0-75.0); PLATELET COUNT 356 K/UL (150-450); RED BLOOD COUNT 3.65 M/UL (4.70-6.10); RED CELL DISTRIBUTION WIDTH 16.1 % (11.6-14.8); WHITE BLOOD COUNT 12.4 K/UL (4.8-10.8)
--- NOTE | 2019-07-20 07:39 | NUR ---
HAND-OFF: Report given to Hardeep Dennis RN. Patient is stable.
--- NOTE | 2019-07-20 07:40 | NUR ---
NURSE NOTES: Received report from EDU Ghosh. Rounding done with outgoing nurse. Pt a/o x 4, in bed, having breakfast. Pt c/o general body ache as 03/17. Pain medicine will be given as MD ordered. Pt verbalized understanding. Bed in lowest position, call light within reach. Will continue to monitor.
[2019-07-20 08:00] VITALS: BP 135/79
[2019-07-20] MEDS: Aspirin Baby 81mg ORAL SCH (09:16)
[2019-07-20] MEDS: Hydroxyurea 500mg cap ORAL SCH (09:16)
[2019-07-20] MEDS: oxyCONTIN 20mg tab ORAL SCH ×2 (09:17→21:21)
[2019-07-20] MEDS: D5 1/2NS 1,000 ML IV SCH ×2 (09:18→18:09)
--- NOTE | 2019-07-20 11:49 | NUR ---
CASE MANAGEMENT:REVIEW 07/20/19 SI:AVASCULAR NECROSIS LEFT HIP . SICKLE CELL CRISIS . LEUKOCYTOSIS 98.9 68 20 135/79 98% ON 2L NC WBC 12.4 H/H-9.2/28.4 BUN 6 CA+8.3 IS: IVF D5@100/HR OXYCONTIN PO Q12 HYDREA PO QD HEPARIN SQ Q8HRS IV DILAUDID Q2HRS PRN ASA PO QD : MED/SURG STATUS 3 EAST DCP: FROM HOME PLAN: PAIN MANAGEMENT
[2019-07-20 12:00] VITALS: BP 145/79
--- NOTE | 2019-07-20 15:35 | NUR ---
RD ASSESSMENT & RECOMMENDATIONS SEE CARE ACTIVITY FOR COMPLETE ASSESSMENT DAILY ESTIMATED NEEDS: Needs based on Obese 78.5 kg abw 20-25 kcals/kg 5710-7503 total kcals 1-1.5 g protein/kg 79-118 g total protein 25-30 mL/kg 8856-7844 total fluid mLs NUTRITION DIAGNOSIS: 1) Obesity etiology unknown as evidenced by BMI >40, pt is 187% [place] Body Weight. 2) Altered nutrition related lab values r/t clinical status, sickle cell crisis, low hgb 9.2, elev LDH 255, elev T bili 1.6. CURRENT DIET:Regular PO DIET RECOMMENDATIONS: Low NA/ Low FAT diet ADDITIONAL RECOMMENDATIONS: 1) Weekly standing wt monitoring (pt on a bed without bedscale) 2) Consider DC D5 IVF w/ continued good oral intake
[2019-07-20 16:00] VITALS: BP 124/80
--- NOTE | 2019-07-20 16:11 | Internal Med Progress Note ---
Subjective Physician Name Jersey Bearden Attending Physician Jersey Bearden MD Current Medications Medications (Trade) Dose Ordered Sig/Arianne Route PRN Reason Start Time Stop Time Status Last Admin Dose Admin Acetaminophen (Tylenol) 650 mg Q6H PRN ORAL Mild Pain/Temp > 100.5 07/15/19 18:15 08/14/19 18:14 Albuterol Sulfate (Proventil MDI) 2 puff Q4H PRN INH Shortness of Breath 07/15/19 18:30 08/14/19 18:29 Aspirin (ASA) 81 mg DAILY ORAL 07/16/19 09:00 08/15/19 08:59 07/20/19 09:16 Chlorhexidine Gluconate (Jihan-Hex 2%) 1 applic DAILY@2000 TOPIC 07/18/19 20:00 08/17/19 19:59 07/19/19 20:12 Dextrose/Sodium Chloride 1,000 ml @ 100 mls/hr Q10H IV 07/15/19 18:15 08/14/19 18:14 07/20/19 09:18 Diphenhydramine HCl (Benadryl) 50 mg Q4H PRN IVP Itching 07/15/19 18:15 08/14/19 18:14 07/20/19 15:53 Folic Acid (Folate) 1 mg DAILY ORAL 07/16/19 09:00 08/15/19 08:59 07/20/19 09:16 Heparin Sodium (Porcine) (Heparin 5000 units/ml) 5,000 units EVERY 8 HOURS SUBQ 07/15/19 22:00 08/14/19 21:59 07/20/19 13:49 Hydromorphone HCl (Dilaudid) 2 mg Q2H PRN IVP For Pain 07/15/19 18:15 07/22/19 18:14 07/20/19 15:54 Hydroxyurea (Hydrea) 1,500 mg DAILY ORAL 07/16/19 09:00 07/21/19 08:59 07/20/19 09:16 Ondansetron HCl (Zofran) 4 mg Q4H PRN IVP Nausea & Vomiting 07/15/19 18:15 08/14/19 18:14 Oxycodone HCl (OxyCONTIN) 20 mg Q12HR ORAL 07/18/19 12:15 07/25/19 12:14 07/20/19 09:17 Allergies: Coded Allergies: CAPSAICIN (Verified Allergy, Unknown, 11/23/18) CEFTRIAXONE (Verified Allergy, Unknown, 11/23/18) IOPAMIDOL (Unverified Allergy, Unknown, 01/01/19) Uncoded Allergies: IV CONTRAST (Allergy, Unknown, 01/01/19) CONTRAST (Adverse Reaction, Severe, Rash, 06/23/16) RADIOCONTRAST - RASH, ITCHING Subjective awake, alert, responsive, NO SOB, + Chest wall pain, + sweating Objective Last Vital Signs Date Time Temp Pulse Resp B/P (MAP) Pulse Ox O2 Delivery O2 Flow Rate FiO2 07/20/19 12:05 96 Room Air 21 07/20/19 12:00 99.3 63 18 145/79 (101) 07/20/19 09:00 2.0 Laboratory Tests Test 07/20/19 05:20 White Blood Count 12.4 K/UL (4.8-10.8) H Red Blood Count 3.65 M/UL (4.70-6.10) L Hemoglobin 9.2 G/DL (14.2-18.0) L Hematocrit 28.4 % (42.0-52.0) L Mean Corpuscular Volume 78 FL (80-99) L Mean Corpuscular Hemoglobin 25.1 PG (27.0-31.0) L Mean Corpuscular Hemoglobin Concent 32.3 G/DL (32.0-36.0) Red Cell Distribution Width 16.1 % (11.6-14.8) H Platelet Count 356 K/UL (150-450) Mean Platelet Volume 6.9 FL (6.5-10.1) Neutrophils (%) (Auto) 55.3 % (45.0-75.0) Lymphocytes (%) (Auto) 33.7 % (20.0-45.0) Monocytes (%) (Auto) 6.7 % (1.0-10.0) Eosinophils (%) (Auto) 2.7 % (0.0-3.0) Basophils (%) (Auto) 1.6 % (0.0-2.0) Sodium Level 139 MMOL/L (136-145) Potassium Level 3.9 MMOL/L (3.5-5.1) Chloride Level 105 MMOL/L (98-107) Carbon Dioxide Level 28 MMOL/L (21-32) Anion Gap 6 mmol/L (5-15) Blood Urea Nitrogen 6 mg/dL (7-18) L Creatinine 0.6 MG/DL (0.55-1.30) Estimat Glomerular Filtration Rate > 60 mL/min (>60) Glucose Level 90 MG/DL (74-106) Calcium Level 8.3 MG/DL (8.5-10.1) L Intake and Output 07/19/19 07/20/19 18:59 06:59 Intake Total 1550 ml 2760 ml Output Total 1150 ml Balance 1550 ml 1610 ml Intake Oral 350 ml 1860 ml IV Total 1200 ml 900 ml Output Urine Total 1150 ml # Voids 1 7 Objective General: No acute distress, awake and alert HEENT: NCAT, sclera anicteric, PERRL, EOMI. Neck: Supple, no significant jugular venous distention, Lungs: Good inspiratory effort, clear to auscultation bilaterally, no Wheeze or Rales. Chest wall: Right side [place]. Heart: Regular rate and rhythm, normal S1/S2, no murmurs Abdomen: soft, nontender, nondistended. Normoactive bowel sounds, morbid Obesity. / Rectal: Refused and deferred. Extremities: No Cyanosis , clubbing or edema. Neuro: A&O x 3, Able to move all extremities Skin: warm, no rashes or lesions Psych: Normal mood and affect Assessment/Plan Assessment/Plan (1) Avascular necrosis of bone of left hip (2) Asthma (3) Beta thalassemia major (4) Sickle cell disease Assessment & Plan: IV fluids. Pain management - oral and IV (5) Leukocytosis (6) Sickle cell crisis Jersey Bearden MD Jul 20, 2019 16:11
--- NOTE | 2019-07-20 19:27 | NUR ---
HAND-OFF: Report given to EDU Marshall.
--- NOTE | 2019-07-20 19:30 | NUR ---
NURSE NOTES: Received report from EDU Schrader. Patient alert, awake, and verbally responsive. Breathing unlabored on room air without distress. Port-a-cath noted on upper right chest intact running fluid as ordered. Bed placed at the lowest with alarm, brake, and siderails up for safety. Call light placed within reach. Will continue to monitor and provide care as ordered.
[2019-07-20 20:00] VITALS: BP 125/75
[2019-07-20] MEDS: Dyna-Hex 2% Top Sol 2oz TOPIC SCH (20:08)
--- NOTE | 2019-07-20 22:00 | NUR ---
NURSE NOTES: Patient refused dose of heparin scheduled for 2200. Patient well aware of the benefit and risk of the medication. Will continue to monitor and provide care as ordered.
[2019-07-21] VITALS: BP 128/77
[2019-07-21] MEDS: DiphenhydrAMINE 50mg/ml Inj IVP PRN ×6 (00:19→21:01)
[2019-07-21] MEDS: D5 1/2NS 1,000 ML IV SCH ×3 (03:21→23:24)
[2019-07-21 04:00] VITALS: BP 124/81
--- NOTE | 2019-07-21 04:30 | NUR ---
NURSE NOTES: Changed dressing on the port-a-cath due to previous dressing being loose. Explained procedure to patient prior and during. Patient tolerated the process well. Will continue to monitor.
[2019-07-21] MEDS: Heparin 5000 units/ml inj SUBQ SCH ×3 (06:49→22:00)
--- NOTE | 2019-07-21 07:36 | NUR ---
NURSE NOTES: Received report from Rolando, RN. Rounding done with outgoing nurse. Pt a/o x 4, in bed. C/O generalized body pain as 8/10 and pain medicine will be given as MD ordered. D51/2NS is running @100ml/hr. Bed in lowest position, call light within reach. Will continue to monitor.
--- NOTE | 2019-07-21 07:41 | NUR ---
HAND-OFF: Report given to EDU Schrader.
[2019-07-21 08:00] VITALS: BP 117/67
[2019-07-21] MEDS: Aspirin Baby 81mg ORAL SCH (08:43)
[2019-07-21] MEDS: oxyCONTIN 20mg tab ORAL SCH ×2 (09:56→22:18)
[2019-07-21 12:00] VITALS: BP 118/75
--- NOTE | 2019-07-21 14:45 | Internal Med Progress Note ---
Subjective Date of Service: Jul 21, 2019 Physician Name Edilson Rubalcava Attending Physician Jersey Bearden MD Current Medications Medications (Trade) Dose Ordered Sig/Arianne Route PRN Reason Start Time Stop Time Status Last Admin Dose Admin Acetaminophen (Tylenol) 650 mg Q6H PRN ORAL Mild Pain/Temp > 100.5 07/15/19 18:15 08/14/19 18:14 Albuterol Sulfate (Proventil MDI) 2 puff Q4H PRN INH Shortness of Breath 07/15/19 18:30 08/14/19 18:29 Aspirin (ASA) 81 mg DAILY ORAL 07/16/19 09:00 08/15/19 08:59 07/21/19 08:43 Chlorhexidine Gluconate (Jihan-Hex 2%) 1 applic DAILY@2000 TOPIC 07/18/19 20:00 08/17/19 19:59 07/20/19 20:08 Dextrose/Sodium Chloride 1,000 ml @ 100 mls/hr Q10H IV 07/15/19 18:15 08/14/19 18:14 07/21/19 13:07 Diphenhydramine HCl (Benadryl) 50 mg Q4H PRN IVP Itching 07/15/19 18:15 08/14/19 18:14 07/21/19 13:07 Folic Acid (Folate) 1 mg DAILY ORAL 07/16/19 09:00 08/15/19 08:59 07/21/19 08:43 Heparin Sodium (Porcine) (Heparin 5000 units/ml) 5,000 units EVERY 8 HOURS SUBQ 07/15/19 22:00 08/14/19 21:59 07/21/19 13:08 Hydromorphone HCl (Dilaudid) 2 mg Q2H PRN IVP For Pain 07/15/19 18:15 07/22/19 18:14 07/21/19 13:07 Ondansetron HCl (Zofran) 4 mg Q4H PRN IVP Nausea & Vomiting 07/15/19 18:15 08/14/19 18:14 Oxycodone HCl (OxyCONTIN) 20 mg Q12HR ORAL 07/18/19 12:15 07/25/19 12:14 07/21/19 09:56 Allergies: Coded Allergies: CAPSAICIN (Verified Allergy, Unknown, 11/23/18) CEFTRIAXONE (Verified Allergy, Unknown, 11/23/18) IOPAMIDOL (Unverified Allergy, Unknown, 01/01/19) Uncoded Allergies: IV CONTRAST (Allergy, Unknown, 01/01/19) CONTRAST (Adverse Reaction, Severe, Rash, 06/23/16) RADIOCONTRAST - RASH, ITCHING ROS Limited/Unobtainable: No Constitutional: Reports: no symptoms HEENT: Reports: no symptoms Cardiovascular: Reports: no symptoms Respiratory: Reports: no symptoms Gastrointestinal/Abdominal: Reports: no symptoms Genitourinary: Reports: no symptoms Neurologic/Psychiatric: Reports: no symptoms Subjective 23 YO M admitted with sickle cell crisis. Cover for Int Med-Dr Bearden Objective Last Vital Signs Date Time Temp Pulse Resp B/P (MAP) Pulse Ox O2 Delivery O2 Flow Rate FiO2 07/21/19 12:00 98.3 60 20 118/75 (89) 99 07/21/19 09:00 Room Air 07/20/19 21:39 Intake and Output 07/20/19 07/21/19 19:00 07:00 Intake Total 1200 ml 1700 ml Output Total 1150 ml Balance 1200 ml 550 ml Intake Oral 400 ml 500 ml IV Total 800 ml 1200 ml Output Urine Total 1150 ml # Voids 5 3 # Bowel Movements 1 Objective General Appearance: WD/WN, alert, mild distress EENT: PERRL/EOMI, normal ENT inspection, pharynx normal Neck: non-tender, normal alignment, supple, normal inspection Cardiovascular: normal peripheral pulses, normal rate, regular rhythm, no gallop/murmur, no JVD Respiratory/Chest: chest wall non-tender, lungs clear, normal breath sounds, no respiratory distress, no accessory muscle use Abdomen: normal bowel sounds, non tender, soft, no organomegaly, no mass Extremities: normal range of motion, non-tender 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 Pain management - oral and IV (5) Leukocytosis (6) Sickle cell crisis Edilson Rubalcava MD Jul 21, 2019 14:45
--- NOTE | 2019-07-21 15:26 | NUR ---
CASE MANAGEMENT:REVIEW 07/21/19 SI:AVASCULAR NECROSIS LEFT HIP . SICKLE CELL CRISIS . LEUKOCYTOSIS T 98.3 HR 60 RR 20 B/P 118/75 SATS 99% ON RA LABS: NONE TODAY IS: IVF D5@100/HR OXYCONTIN PO Q12 HYDREA PO QD HEPARIN SQ Q8HRS IV DILAUDID Q2HRS PRN ASA PO QD : MED/SURG STATUS 3 [facility] DCP: FROM HOME
[2019-07-21 16:00] VITALS: BP 125/66
--- NOTE | 2019-07-21 19:31 | NUR ---
HAND-OFF: Report given to EDU Montanez. Pt is stable.
--- NOTE | 2019-07-21 19:32 | NUR ---
NURSE NOTES: Received report from EDU Meier. Rounds done. Patient alert, sitting up. No distress noted. Portacath intact and patent, dressing was changed yesterday. Bed in low position, locked, side rails upx2, call light within reach. Will continue to monitor.
[2019-07-21 20:00] VITALS: BP 131/80
[2019-07-21] MEDS: Dyna-Hex 2% Top Sol 2oz TOPIC SCH (20:21)
[2019-07-22] VITALS: BP 131/78
[2019-07-22] MEDS: DiphenhydrAMINE 50mg/ml Inj IVP PRN ×5 (01:11→21:22)
--- NOTE | 2019-07-22 02:04 | NUR ---
NURSE NOTES: Sleeping on and off.
[2019-07-22 04:00] VITALS: BP 122/77
[2019-07-22] MEDS: Heparin 5000 units/ml inj SUBQ SCH ×3 (06:00→22:00)
--- NOTE | 2019-07-22 07:20 | NUR ---
HAND-OFF: Report given to EDU Wilkerson. Rounds done, patient asleep. No distress noted.
[2019-07-22 07:21] LABS: ANION GAP 6 mmol/L (5-15); BASOPHILS % (AUTO) 1.7 % (0.0-2.0); BLOOD UREA NITROGEN 5 mg/dL (7-18); CALCIUM 8.4 MG/DL (8.5-10.1); CARBON DIOXIDE 29 MMOL/L (21-32); CHLORIDE 104 MMOL/L (98-107); CREATININE 0.5 MG/DL (0.55-1.30); EOSINOPHILS % (AUTO) 4.6 % (0.0-3.0); HEMATOCRIT 27.5 % (42.0-52.0); HEMOGLOBIN 8.8 G/DL (14.2-18.0); LYMPHOCYTES % (AUTO) 39.1 % (20.0-45.0); MEAN CORPUSCULAR VOLUME 77 FL (80-99); MONOCYTES % (AUTO) 9.8 % (1.0-10.0); NEUTROPHILS % (AUTO) 44.8 % (45.0-75.0); PLATELET COUNT 318 K/UL (150-450); RED BLOOD COUNT 3.56 M/UL (4.70-6.10); RED CELL DISTRIBUTION WIDTH 16.7 % (11.6-14.8); SODIUM 138 MMOL/L (136-145); WHITE BLOOD COUNT 11.8 K/UL (4.8-10.8)
[2019-07-22 08:00] VITALS: BP 124/66
--- NOTE | 2019-07-22 08:01 | NUR ---
NURSE NOTES: Received pt from EDU Richard. pt was sleeping comfortably, no acute distress. call light w/in reach.
[2019-07-22] MEDS: Aspirin Baby 81mg ORAL SCH (09:04)
[2019-07-22] MEDS: oxyCONTIN 20mg tab ORAL SCH ×2 (09:04→23:18)
[2019-07-22] MEDS ORDERED: D5 1/2NS 1000ml IV ONE (09:10)
[2019-07-22] MEDS: D5 1/2NS 1,000 ML IV SCH ×2 (09:13→20:15)
[2019-07-22 12:15] VITALS: BP 129/71
--- NOTE | 2019-07-22 14:45 | Internal Med Progress Note ---
Subjective Date of Service: Jul 22, 2019 Physician Name Edilson Rubalcava Attending Physician Jersey Bearden MD Current Medications Medications (Trade) Dose Ordered Sig/Arianne Route PRN Reason Start Time Stop Time Status Last Admin Dose Admin Acetaminophen (Tylenol) 650 mg Q6H PRN ORAL Mild Pain/Temp > 100.5 07/15/19 18:15 08/14/19 18:14 Albuterol Sulfate (Proventil MDI) 2 puff Q4H PRN INH Shortness of Breath 07/15/19 18:30 08/14/19 18:29 Aspirin (ASA) 81 mg DAILY ORAL 07/16/19 09:00 08/15/19 08:59 07/22/19 09:04 Chlorhexidine Gluconate (Jihan-Hex 2%) 1 applic DAILY@2000 TOPIC 07/18/19 20:00 08/17/19 19:59 07/21/19 20:21 Dextrose/Sodium Chloride 1,000 ml @ 100 mls/hr Q10H IV 07/15/19 18:15 08/14/19 18:14 07/22/19 09:13 Diphenhydramine HCl (Benadryl) 50 mg Q4H PRN IVP Itching 07/15/19 18:15 08/14/19 18:14 07/22/19 11:10 Folic Acid (Folate) 1 mg DAILY ORAL 07/16/19 09:00 08/15/19 08:59 07/22/19 09:04 Heparin Sodium (Porcine) (Heparin 5000 units/ml) 5,000 units EVERY 8 HOURS SUBQ 07/15/19 22:00 08/14/19 21:59 07/22/19 13:03 Hydromorphone HCl (Dilaudid) 2 mg Q2H PRN IVP For Pain 07/15/19 18:15 07/22/19 18:14 07/22/19 13:04 Ondansetron HCl (Zofran) 4 mg Q4H PRN IVP Nausea & Vomiting 07/15/19 18:15 08/14/19 18:14 Oxycodone HCl (OxyCONTIN) 20 mg Q12HR ORAL 07/18/19 12:15 07/25/19 12:14 07/22/19 09:04 Allergies: Coded Allergies: CAPSAICIN (Verified Allergy, Unknown, 11/23/18) CEFTRIAXONE (Verified Allergy, Unknown, 11/23/18) IOPAMIDOL (Unverified Allergy, Unknown, 01/01/19) Uncoded Allergies: IV CONTRAST (Allergy, Unknown, 01/01/19) CONTRAST (Adverse Reaction, Severe, Rash, 06/23/16) RADIOCONTRAST - RASH, ITCHING ROS Limited/Unobtainable: No Constitutional: Reports: no symptoms HEENT: Reports: no symptoms Cardiovascular: Reports: no symptoms Respiratory: Reports: no symptoms Gastrointestinal/Abdominal: Reports: no symptoms Genitourinary: Reports: no symptoms Neurologic/Psychiatric: Reports: no symptoms Subjective 23 YO M admitted with sickle cell crisis. Cover for Int Franky-Dr Bearden Objective Last Vital Signs Date Time Temp Pulse Resp B/P (MAP) Pulse Ox O2 Delivery O2 Flow Rate FiO2 07/22/19 12:15 98.6 65 18 129/71 (90) 99 07/22/19 08:23 Room Air 07/22/19 07:33 21 07/21/19 19:39 2.0 Laboratory Tests Test 07/22/19 06:00 White Blood Count 11.8 K/UL (4.8-10.8) H Red Blood Count 3.56 M/UL (4.70-6.10) L Hemoglobin 8.8 G/DL (14.2-18.0) L Hematocrit 27.5 % (42.0-52.0) L Mean Corpuscular Volume 77 FL (80-99) L Mean Corpuscular Hemoglobin 24.7 PG (27.0-31.0) L Mean Corpuscular Hemoglobin Concent 32.1 G/DL (32.0-36.0) Red Cell Distribution Width 16.7 % (11.6-14.8) H Platelet Count 318 K/UL (150-450) Mean Platelet Volume 7.5 FL (6.5-10.1) Neutrophils (%) (Auto) 44.8 % (45.0-75.0) L Lymphocytes (%) (Auto) 39.1 % (20.0-45.0) Monocytes (%) (Auto) 9.8 % (1.0-10.0) Eosinophils (%) (Auto) 4.6 % (0.0-3.0) H Basophils (%) (Auto) 1.7 % (0.0-2.0) Sodium Level 138 MMOL/L (136-145) Potassium Level 4.0 MMOL/L (3.5-5.1) Chloride Level 104 MMOL/L (98-107) Carbon Dioxide Level 29 MMOL/L (21-32) Anion Gap 6 mmol/L (5-15) Blood Urea Nitrogen 5 mg/dL (7-18) L Creatinine 0.5 MG/DL (0.55-1.30) L Estimat Glomerular Filtration Rate > 60 mL/min (>60) Glucose Level 98 MG/DL (74-106) Calcium Level 8.4 MG/DL (8.5-10.1) L Intake and Output 07/21/19 07/22/19 19:00 07:00 Intake Total 1100 ml 2600 ml Output Total 2300 ml 850 ml Balance -1200 ml 1750 ml Intake Oral 1400 ml IV Total 1100 ml 1200 ml Output Urine Total 2300 ml 850 ml Objective General Appearance: WD/WN, alert, mild distress EENT: PERRL/EOMI, normal ENT inspection, pharynx normal Neck: non-tender, normal alignment, supple, normal inspection Cardiovascular: normal peripheral pulses, normal rate, regular rhythm, no gallop/murmur, no JVD Respiratory/Chest: chest wall non-tender, lungs clear, normal breath sounds, no respiratory distress, no accessory muscle use Abdomen: normal bowel sounds, non tender, soft, no organomegaly, no mass Extremities: normal range of motion, non-tender 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 Pain management - oral and IV (5) Leukocytosis (6) Sickle cell crisis Edilson Rubalcava MD Jul 22, 2019 14:45
[2019-07-22 16:00] VITALS: BP 120/76
--- NOTE | 2019-07-22 19:16 | NUR ---
NURSE NOTES: Received report from RN Rock, pt A/.O x4, breaths even regular unlabored ,at 2 L NC , with sub clavian michelet cath with i.v fluids running , c/o pain of 9/10. will provide pain Meds and continue to monitor L
--- NOTE | 2019-07-22 19:44 | NUR ---
HAND-OFF: Report given to EDU Grady.pt is stable condition.
[2019-07-22 20:00] VITALS: BP 147/95
[2019-07-22] MEDS: Dyna-Hex 2% Top Sol 2oz TOPIC SCH (20:42)
[2019-07-23] VITALS: BP 117/78
[2019-07-23] MEDS: DiphenhydrAMINE 50mg/ml Inj IVP PRN ×5 (01:34→20:06)
[2019-07-23 04:00] VITALS: BP 121/74
[2019-07-23] MEDS: D5 1/2NS 1,000 ML IV SCH ×2 (05:35→15:39)
[2019-07-23] MEDS: Heparin 5000 units/ml inj SUBQ SCH ×3 (06:00→20:57)
--- NOTE | 2019-07-23 07:49 | NUR ---
NURSE NOTES: AWAKE/ALERT. PAIN SCALE 9/10. IN NO DISTRESS.
--- NOTE | 2019-07-23 07:51 | NUR ---
HAND-OFF: Report given to EDU Felder
[2019-07-23 08:00] VITALS: BP 124/72
[2019-07-23 08:17] LABS: HEMATOCRIT 27.4 % (42.0-52.0); HEMOGLOBIN 8.9 G/DL (14.2-18.0); MEAN CORPUSCULAR VOLUME 77 FL (80-99); PLATELET COUNT 379 K/UL (150-450); RED BLOOD COUNT 3.54 M/UL (4.70-6.10); RED CELL DISTRIBUTION WIDTH 17.9 % (11.6-14.8); WHITE BLOOD COUNT 15.8 K/UL (4.8-10.8)
[2019-07-23 08:33] LABS: ANION GAP 6 mmol/L (5-15); BLOOD UREA NITROGEN 5 mg/dL (7-18); CALCIUM 8.5 MG/DL (8.5-10.1); CARBON DIOXIDE 29 MMOL/L (21-32); CHLORIDE 101 MMOL/L (98-107); CREATININE 0.6 MG/DL (0.55-1.30); SODIUM 136 MMOL/L (136-145)
[2019-07-23] MEDS: oxyCONTIN 20mg tab ORAL SCH ×2 (09:00→20:56)
[2019-07-23] MEDS: Aspirin Baby 81mg ORAL SCH (09:00)
[2019-07-23 12:00] VITALS: BP 114/53
[2019-07-23 16:00] VITALS: BP 129/79
--- NOTE | 2019-07-23 16:37 | NUR ---
CASE MANAGEMENT:REVIEW 07/22/19 SI:AVASCULAR NECROSIS LEFT HIP . SICKLE CELL CRISIS . LEUKOCYTOSIS 97.9 71 8 124/66 98% ON RA WBC 15.8 8.9/27.4 BUN 5 IS: IVF D5@100/HR OXYCONTIN PO Q12 IV DILAUDID Q2HRS PRN HEPARIN SQ Q8HRS ASA PO QD : MED/SURG STATUS 3 [facility] DCP: FROM HOME PLAN: DISCHARGE PER DR SUMNER Addendum: 07/23/19 at 1643 by STEFANI FUENTES LVN CASE MANAGEMENT:REVIEW 07/22/19 SI:AVASCULAR NECROSIS LEFT HIP . SICKLE CELL CRISIS . LEUKOCYTOSIS 97.9 71 8 124/66 98% ON RA WBC 11.8 8.8/27.5 BUN 5 IS: IVF D5@100/HR OXYCONTIN PO Q12 IV DILAUDID Q2HRS PRN HEPARIN SQ Q8HRS ASA PO QD : MED/SURG STATUS 3 [facility] DCP: FROM HOME PLAN: DISCHARGE IN AM
--- NOTE | 2019-07-23 19:00 | NUR ---
NURSE NOTES: AWAKE/. IN NO DISTRESS.
--- NOTE | 2019-07-23 19:14 | Internal Med Progress Note ---
Subjective Date of Service: Jul 23, 2019 Physician Name Edilson Rubalcava Attending Physician Jersey Bearden MD Current Medications Medications (Trade) Dose Ordered Sig/Arianne Route PRN Reason Start Time Stop Time Status Last Admin Dose Admin Acetaminophen (Tylenol) 650 mg Q6H PRN ORAL Mild Pain/Temp > 100.5 07/15/19 18:15 08/14/19 18:14 Albuterol Sulfate (Proventil MDI) 2 puff Q4H PRN INH Shortness of Breath 07/15/19 18:30 08/14/19 18:29 Aspirin (ASA) 81 mg DAILY ORAL 07/16/19 09:00 08/15/19 08:59 07/23/19 09:00 Chlorhexidine Gluconate (Jihan-Hex 2%) 1 applic DAILY@2000 TOPIC 07/18/19 20:00 08/17/19 19:59 07/22/19 20:42 Dextrose/Sodium Chloride 1,000 ml @ 100 mls/hr Q10H IV 07/15/19 18:15 08/14/19 18:14 07/23/19 15:39 Diphenhydramine HCl (Benadryl) 50 mg Q4H PRN IVP Itching 07/15/19 18:15 08/14/19 18:14 07/23/19 15:36 Folic Acid (Folate) 1 mg DAILY ORAL 07/16/19 09:00 08/15/19 08:59 07/23/19 08:53 Heparin Sodium (Porcine) (Heparin 5000 units/ml) 5,000 units EVERY 8 HOURS SUBQ 07/15/19 22:00 08/14/19 21:59 07/23/19 14:18 Hydromorphone HCl (Dilaudid) 2 mg Q2H PRN IVP breakthrough pain 07/22/19 20:15 07/29/19 20:14 07/23/19 18:02 Ondansetron HCl (Zofran) 4 mg Q4H PRN IVP Nausea & Vomiting 07/15/19 18:15 08/14/19 18:14 Oxycodone HCl (OxyCONTIN) 20 mg Q12HR ORAL 07/18/19 12:15 07/25/19 12:14 07/23/19 09:00 Allergies: Coded Allergies: CAPSAICIN (Verified Allergy, Unknown, 11/23/18) CEFTRIAXONE (Verified Allergy, Unknown, 11/23/18) IOPAMIDOL (Unverified Allergy, Unknown, 01/01/19) Uncoded Allergies: IV CONTRAST (Allergy, Unknown, 01/01/19) CONTRAST (Adverse Reaction, Severe, Rash, 06/23/16) RADIOCONTRAST - RASH, ITCHING ROS Limited/Unobtainable: No Constitutional: Reports: no symptoms HEENT: Reports: no symptoms Cardiovascular: Reports: no symptoms Respiratory: Reports: no symptoms Gastrointestinal/Abdominal: Reports: no symptoms Genitourinary: Reports: no symptoms Neurologic/Psychiatric: Reports: no symptoms Subjective 23 YO M admitted with sickle cell crisis. Cover for Int Med-Dr Bearden. Worsening leukocytosis Objective Last Vital Signs Date Time Temp Pulse Resp B/P (MAP) Pulse Ox O2 Delivery O2 Flow Rate FiO2 07/23/19 18:32 98.0 07/23/19 16:00 73 20 129/79 (96) 98 07/23/19 09:00 Room Air 07/23/19 07:41 2.0 28 Laboratory Tests Test 07/23/19 07:50 White Blood Count 15.8 K/UL (4.8-10.8) H Red Blood Count 3.54 M/UL (4.70-6.10) L Hemoglobin 8.9 G/DL (14.2-18.0) L Hematocrit 27.4 % (42.0-52.0) L Mean Corpuscular Volume 77 FL (80-99) L Mean Corpuscular Hemoglobin 25.1 PG (27.0-31.0) L Mean Corpuscular Hemoglobin Concent 32.4 G/DL (32.0-36.0) Red Cell Distribution Width 17.9 % (11.6-14.8) H Platelet Count 379 K/UL (150-450) Mean Platelet Volume 7.0 FL (6.5-10.1) Neutrophils (%) (Auto) % (45.0-75.0) Lymphocytes (%) (Auto) % (20.0-45.0) Monocytes (%) (Auto) % (1.0-10.0) Eosinophils (%) (Auto) % (0.0-3.0) Basophils (%) (Auto) % (0.0-2.0) Differential Total Cells Counted 100 Neutrophils % (Manual) 41 % (45-75) L Lymphocytes % (Manual) 47 % (20-45) H Monocytes % (Manual) 8 % (1-10) Eosinophils % (Manual) 4 % (0-3) H Basophils % (Manual) 0 % (0-2) Band Neutrophils 0 % (0-8) Nucleated Red Blood Cells 37 /100 WBC Platelet Estimate Adequate Platelet Morphology Normal Polychromasia 2+ Hypochromasia 2+ Anisocytosis 1+ Microcytosis 1+ Spherocytes 1+ Sodium Level 136 MMOL/L (136-145) Potassium Level 4.0 MMOL/L (3.5-5.1) Chloride Level 101 MMOL/L (98-107) Carbon Dioxide Level 29 MMOL/L (21-32) Anion Gap 6 mmol/L (5-15) Blood Urea Nitrogen 5 mg/dL (7-18) L Creatinine 0.6 MG/DL (0.55-1.30) Estimat Glomerular Filtration Rate > 60 mL/min (>60) Glucose Level 106 MG/DL (74-106) Calcium Level 8.5 MG/DL (8.5-10.1) Intake and Output 07/22/19 07/23/19 19:00 07:00 Intake Total 1100 ml 900 ml Output Total 760 ml 1800 ml Balance 340 ml -900 ml Intake Oral 1000 ml 800 ml IV Total 100 ml 100 ml Output Urine Total 760 ml 1800 ml Objective General Appearance: WD/WN, alert, mild distress EENT: PERRL/EOMI, normal ENT inspection, pharynx normal Neck: non-tender, normal alignment, supple, normal inspection Cardiovascular: normal peripheral pulses, normal rate, regular rhythm, no gallop/murmur, no JVD Respiratory/Chest: chest wall non-tender, lungs clear, normal breath sounds, no respiratory distress, no accessory muscle use Abdomen: normal bowel sounds, non tender, soft, no organomegaly, no mass Extremities: normal range of motion, non-tender 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 Pain management - oral and IV (5) Leukocytosis Assessment & Plan: Worsening. ?reactive? Follow CBC (6) Sickle cell crisis Edilson Rubalcava MD Jul 23, 2019 19:14
--- NOTE | 2019-07-23 19:41 | NUR ---
HAND-OFF: Report given to Yong CADE RN.
--- NOTE | 2019-07-23 19:46 | NUR ---
NURSE NOTES: Received patient awake, alert, verbal, resting in bed, comfortable.
[2019-07-23 20:00] VITALS: BP 146/83
[2019-07-23] MEDS: Dyna-Hex 2% Top Sol 2oz TOPIC SCH (20:06)
[2019-07-24] MEDS: D5 1/2NS 1,000 ML IV SCH ×3 (02:03→22:03)
--- NOTE | 2019-07-24 03:42 | NUR ---
HAND-OFF: Report given to EDU Swain.
[2019-07-24 04:00] VITALS: BP 133/75
--- NOTE | 2019-07-24 04:00 | NUR ---
NURSE NOTES: Received report from Klaus Brenner RN. Patient c/o sharp pain 8/10 in legs bilaterally and left hip. Given medication per eMAR order. Patient has strong body odor. Offered to assist with hygiene however patient refused. Will continue plan of care.
[2019-07-24] MEDS: DiphenhydrAMINE 50mg/ml Inj IVP PRN ×6 (04:13→21:00)
[2019-07-24] MEDS: Heparin 5000 units/ml inj SUBQ SCH ×3 (06:00→20:59)
[2019-07-24 07:10] LABS: HEMATOCRIT 26.9 % (42.0-52.0); HEMOGLOBIN 8.8 G/DL (14.2-18.0); MEAN CORPUSCULAR VOLUME 77 FL (80-99); PLATELET COUNT 412 K/UL (150-450); RED BLOOD COUNT 3.49 M/UL (4.70-6.10); RED CELL DISTRIBUTION WIDTH 18.2 % (11.6-14.8); WHITE BLOOD COUNT 16.2 K/UL (4.8-10.8)
--- NOTE | 2019-07-24 07:14 | NUR ---
HAND-OFF: Report given to EDU Lobo. Patient in stable condition.
[2019-07-24 07:23] LABS: ANION GAP 3 mmol/L (5-15); BLOOD UREA NITROGEN 5 mg/dL (7-18); CALCIUM 8.8 MG/DL (8.5-10.1); CARBON DIOXIDE 32 MMOL/L (21-32); CHLORIDE 104 MMOL/L (98-107); CREATININE 0.5 MG/DL (0.55-1.30); POTASSIUM 3.8 MMOL/L (3.5-5.1); SODIUM 138 MMOL/L (136-145)
[2019-07-24 08:00] VITALS: BP 120/73
[2019-07-24] MEDS: Aspirin Baby 81mg ORAL SCH (09:04)
[2019-07-24] MEDS: oxyCONTIN 20mg tab ORAL SCH ×2 (09:04→22:01)
[2019-07-24 12:00] VITALS: BP 128/72
--- NOTE | 2019-07-24 13:36 | NUR ---
CASE MANAGEMENT:REVIEW 07/23/19 SI:AVASCULAR NECROSIS LEFT HIP . SICKLE CELL CRISIS . LEUKOCYTOSIS 100.2 96 18 18 146/83 96% ON RA WBC 15.8 H/H 8.9/27.4 BUN 5 IS: IVF D5@100/HR OXYCONTIN PO Q12 IV DILAUDID Q2HRS PRN HEPARIN SQ Q8HRS ASA PO QD : MED/SURG STATUS 3 [facility] DCP: FROM HOME CASE MANAGEMENT:REVIEW 07/24/19 SI:AVASCULAR NECROSIS LEFT HIP . SICKLE CELL CRISIS . LEUKOCYTOSIS 98.2 68 18 120/73 97% ON RA WBC 16.2 H/H 8.8/26.9 BUN 5 IS: IVF D5@100/HR OXYCONTIN PO Q12 IV DILAUDID Q2HRS PRN HEPARIN SQ Q8HRS ASA PO QD : MED/SURG STATUS 3 [facility] DCP: HOME WHEN MEDICALLY CLEARED
[2019-07-24 16:02] VITALS: BP 130/75
--- NOTE | 2019-07-24 16:35 | Internal Med Progress Note ---
Subjective Date of Service: Jul 24, 2019 Physician Name Edilson Rubalcava Attending Physician Jersey Bearden MD Current Medications Medications (Trade) Dose Ordered Sig/Arianne Route PRN Reason Start Time Stop Time Status Last Admin Dose Admin Acetaminophen (Tylenol) 650 mg Q6H PRN ORAL Mild Pain/Temp > 100.5 07/15/19 18:15 08/14/19 18:14 Albuterol Sulfate (Proventil MDI) 2 puff Q4H PRN INH Shortness of Breath 07/15/19 18:30 08/14/19 18:29 Aspirin (ASA) 81 mg DAILY ORAL 07/16/19 09:00 08/15/19 08:59 07/24/19 09:04 Chlorhexidine Gluconate (Jihan-Hex 2%) 1 applic DAILY@2000 TOPIC 07/18/19 20:00 08/17/19 19:59 07/23/19 20:06 Dextrose/Sodium Chloride 1,000 ml @ 100 mls/hr Q10H IV 07/15/19 18:15 08/14/19 18:14 07/24/19 13:02 Diphenhydramine HCl (Benadryl) 50 mg Q4H PRN IVP Itching 07/15/19 18:15 08/14/19 18:14 07/24/19 12:28 Folic Acid (Folate) 1 mg DAILY ORAL 07/16/19 09:00 08/15/19 08:59 07/24/19 09:04 Heparin Sodium (Porcine) (Heparin 5000 units/ml) 5,000 units EVERY 8 HOURS SUBQ 07/15/19 22:00 08/14/19 21:59 07/23/19 20:57 Hydromorphone HCl (Dilaudid) 2 mg Q2H PRN IVP breakthrough pain 07/22/19 20:15 07/29/19 20:14 07/24/19 14:48 Ondansetron HCl (Zofran) 4 mg Q4H PRN IVP Nausea & Vomiting 07/15/19 18:15 08/14/19 18:14 Oxycodone HCl (OxyCONTIN) 20 mg Q12HR ORAL 07/18/19 12:15 07/25/19 12:14 07/24/19 09:04 Allergies: Coded Allergies: CAPSAICIN (Verified Allergy, Unknown, 11/23/18) CEFTRIAXONE (Verified Allergy, Unknown, 11/23/18) IOPAMIDOL (Unverified Allergy, Unknown, 01/01/19) Uncoded Allergies: IV CONTRAST (Allergy, Unknown, 01/01/19) CONTRAST (Adverse Reaction, Severe, Rash, 06/23/16) RADIOCONTRAST - RASH, ITCHING ROS Limited/Unobtainable: No Constitutional: Reports: chills, fever HEENT: Reports: no symptoms Cardiovascular: Reports: no symptoms Respiratory: Reports: no symptoms Gastrointestinal/Abdominal: Reports: no symptoms Genitourinary: Reports: no symptoms Neurologic/Psychiatric: Reports: no symptoms Subjective 23 YO M admitted with sickle cell crisis. Cover for Int Med-Dr Bearden. Worsening leukocytosis; low grade fever. Objective Last Vital Signs Date Time Temp Pulse Resp B/P (MAP) Pulse Ox O2 Delivery O2 Flow Rate FiO2 07/24/19 16:02 99.8 82 18 130/75 (93) 98 07/24/19 09:00 Room Air 07/24/19 07:25 2.0 28 Laboratory Tests Test 07/24/19 06:00 White Blood Count 16.2 K/UL (4.8-10.8) H Red Blood Count 3.49 M/UL (4.70-6.10) L Hemoglobin 8.8 G/DL (14.2-18.0) L Hematocrit 26.9 % (42.0-52.0) L Mean Corpuscular Volume 77 FL (80-99) L Mean Corpuscular Hemoglobin 25.3 PG (27.0-31.0) L Mean Corpuscular Hemoglobin Concent 32.9 G/DL (32.0-36.0) Red Cell Distribution Width 18.2 % (11.6-14.8) H Platelet Count 412 K/UL (150-450) Mean Platelet Volume 6.4 FL (6.5-10.1) L Neutrophils (%) (Auto) % (45.0-75.0) Lymphocytes (%) (Auto) % (20.0-45.0) Monocytes (%) (Auto) % (1.0-10.0) Eosinophils (%) (Auto) % (0.0-3.0) Basophils (%) (Auto) % (0.0-2.0) Differential Total Cells Counted 100 Neutrophils % (Manual) 30 % (45-75) L Lymphocytes % (Manual) 60 % (20-45) H Monocytes % (Manual) 7 % (1-10) Eosinophils % (Manual) 2 % (0-3) Basophils % (Manual) 1 % (0-2) Band Neutrophils 0 % (0-8) Nucleated Red Blood Cells 65 /100 WBC Platelet Estimate Adequate Platelet Morphology Normal Hypochromasia 2+ Anisocytosis 2+ Microcytosis 1+ Spherocytes 1+ Sodium Level 138 MMOL/L (136-145) Potassium Level 3.8 MMOL/L (3.5-5.1) Chloride Level 104 MMOL/L (98-107) Carbon Dioxide Level 32 MMOL/L (21-32) Anion Gap 3 mmol/L (5-15) L Blood Urea Nitrogen 5 mg/dL (7-18) L Creatinine 0.5 MG/DL (0.55-1.30) L Estimat Glomerular Filtration Rate > 60 mL/min (>60) Glucose Level 113 MG/DL (74-106) H Calcium Level 8.8 MG/DL (8.5-10.1) Intake and Output 07/23/19 07/24/19 19:00 07:00 Intake Total 1200 ml 1340 ml Output Total 2000 ml 900 ml Balance -800 ml 440 ml Intake Oral 240 ml IV Total 1200 ml 1100 ml Output Urine Total 2000 ml 900 ml Objective General Appearance: WD/WN, alert, mild distress EENT: PERRL/EOMI, normal ENT inspection, pharynx normal Neck: non-tender, normal alignment, supple, normal inspection Cardiovascular: normal peripheral pulses, normal rate, regular rhythm, no gallop/murmur, no JVD Respiratory/Chest: chest wall non-tender, lungs clear, normal breath sounds, no respiratory distress, no accessory muscle use Abdomen: normal bowel sounds, non tender, soft, no organomegaly, no mass Extremities: normal range of motion, non-tender 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 Pain management - oral and IV (5) Leukocytosis Assessment & Plan: Worsening. ?reactive? Follow CBC (6) Sickle cell crisis (7) Fever Assessment & Plan: Low grade. Port a cath right chest. Blood cultures X2 now. CXR. ID consult=Edilson Laguerre MD Jul 24, 2019 16:35
--- NOTE | 2019-07-24 18:55 | NUR ---
NURSE NOTES: QUIET IN BED. NO ACUTE DISTRESS
--- NOTE | 2019-07-24 19:38 | NUR ---
HAND-OFF: Report given to BLAIR SORENSEN.
--- NOTE | 2019-07-24 19:44 | NUR ---
NURSE NOTES: Received report from EDU Lobo. Patient is in bed, alert and oriented x4. No signs of distress or SOB. Subclavian port-a-cath in place. Bed locked and in lowest position. Call light in reach. Will continue to monitor the patient.
[2019-07-24 20:00] VITALS: BP 134/86
[2019-07-24] MEDS: Dyna-Hex 2% Top Sol 2oz TOPIC SCH (20:00)
[2019-07-25 00:24] VITALS: BP 129/75
[2019-07-25] MEDS: DiphenhydrAMINE 50mg/ml Inj IVP PRN ×6 (00:56→22:28)
[2019-07-25 04:00] VITALS: BP 135/61
[2019-07-25] MEDS: Heparin 5000 units/ml inj SUBQ SCH ×3 (05:17→21:41)
[2019-07-25 06:06] LABS: HEMATOCRIT 30.4 % (42.0-52.0); HEMOGLOBIN 9.7 G/DL (14.2-18.0); MEAN CORPUSCULAR VOLUME 78 FL (80-99); PLATELET COUNT 402 K/UL (150-450); RED BLOOD COUNT 3.89 M/UL (4.70-6.10); RED CELL DISTRIBUTION WIDTH 18.4 % (11.6-14.8)
[2019-07-25 06:26] LABS: ANION GAP 6 mmol/L (5-15); BLOOD UREA NITROGEN 6 mg/dL (7-18); CALCIUM 8.8 MG/DL (8.5-10.1); CARBON DIOXIDE 30 MMOL/L (21-32); CHLORIDE 103 MMOL/L (98-107); CREATININE 0.5 MG/DL (0.55-1.30); SODIUM 138 MMOL/L (136-145)
--- NOTE | 2019-07-25 07:30 | NUR ---
HAND-OFF: Report given to EDU Dan.
[2019-07-25 08:00] VITALS: BP 129/71
--- NOTE | 2019-07-25 08:39 | NUR ---
NURSE NOTES: Informed Dr. Rubalcava that patient's WBC are 18.0. MD aware, per MD patient's to be seen by ID today.
[2019-07-25] MEDS: D5 1/2NS 1,000 ML IV SCH ×2 (09:12→18:33)
[2019-07-25] MEDS: Aspirin Baby 81mg ORAL SCH (09:25)
[2019-07-25] MEDS: oxyCONTIN 20mg tab ORAL SCH ×2 (10:12→21:44)
[2019-07-25 12:00] VITALS: BP 125/70
--- NOTE | 2019-07-25 12:27 | NUR ---
CASE MANAGEMENT:REVIEW 07/25/19 SI:AVASCULAR NECROSIS LEFT HIP . SICKLE CELL DISEASE . LEUKOCYTOSIS 98.1 77 18 129/71 96% ON RA WBC 18 H/H 9.7/30.4 BUN 6 IS: IVF D5@100/HR IV DILAUDID Q2HRS PRN HEPARIN SQ [id number] HAS BEEN REFUSING FOLATE PO QD ASA PO QD : MED/SURG STATUS 3 EAST DCP: HOME WHEN MEDICALLY CLEARED PLAN: BL CULTURE PENDING CXRAY-PENDING ID TO SEE PATIENT
[2019-07-25 16:00] VITALS: BP 150/84
[2019-07-25] MEDS ORDERED: D5 1/2NS 1000ml IV ONE (18:01)
--- NOTE | 2019-07-25 18:24 | Internal Med Progress Note ---
Subjective Date of Service: Jul 25, 2019 Physician Name Edilson Rubalcava Attending Physician Jersey Bearden MD Current Medications Medications (Trade) Dose Ordered Sig/Arianne Route PRN Reason Start Time Stop Time Status Last Admin Dose Admin Acetaminophen (Tylenol) 650 mg Q6H PRN ORAL Mild Pain/Temp > 100.5 07/15/19 18:15 08/14/19 18:14 Albuterol Sulfate (Proventil MDI) 2 puff Q4H PRN INH Shortness of Breath 07/15/19 18:30 08/14/19 18:29 Aspirin (ASA) 81 mg DAILY ORAL 07/16/19 09:00 08/15/19 08:59 07/25/19 09:25 Chlorhexidine Gluconate (Jihan-Hex 2%) 1 applic DAILY@2000 TOPIC 07/18/19 20:00 08/17/19 19:59 07/23/19 20:06 Dextrose/Sodium Chloride 1,000 ml @ 100 mls/hr Q10H IV 07/15/19 18:15 08/14/19 18:14 07/25/19 09:12 Diphenhydramine HCl (Benadryl) 50 mg Q4H PRN IVP Itching 07/15/19 18:15 08/14/19 18:14 07/25/19 13:51 Folic Acid (Folate) 1 mg DAILY ORAL 07/16/19 09:00 08/15/19 08:59 07/25/19 09:25 Heparin Sodium (Porcine) (Heparin 5000 units/ml) 5,000 units EVERY 8 HOURS SUBQ 07/15/19 22:00 08/14/19 21:59 07/23/19 20:57 Hydromorphone HCl (Dilaudid) 2 mg Q2H PRN IVP breakthrough pain 07/22/19 20:15 07/29/19 20:14 07/25/19 16:19 Ondansetron HCl (Zofran) 4 mg Q4H PRN IVP Nausea & Vomiting 07/15/19 18:15 08/14/19 18:14 Allergies: Coded Allergies: CAPSAICIN (Verified Allergy, Unknown, 11/23/18) CEFTRIAXONE (Verified Allergy, Unknown, 11/23/18) IOPAMIDOL (Unverified Allergy, Unknown, 01/01/19) Uncoded Allergies: IV CONTRAST (Allergy, Unknown, 01/01/19) CONTRAST (Adverse Reaction, Severe, Rash, 06/23/16) RADIOCONTRAST - RASH, ITCHING ROS Limited/Unobtainable: No Constitutional: Reports: no symptoms HEENT: Reports: no symptoms Cardiovascular: Reports: no symptoms Respiratory: Reports: no symptoms Gastrointestinal/Abdominal: Reports: no symptoms Genitourinary: Reports: no symptoms Neurologic/Psychiatric: Reports: no symptoms Subjective 23 YO M admitted with sickle cell crisis. Cover for [facility] Med-Dr Bearden. Worsening leukocytosis; low grade fever. Objective Last Vital Signs Date Time Temp Pulse Resp B/P (MAP) Pulse Ox O2 Delivery O2 Flow Rate FiO2 07/25/19 16:00 98.2 69 18 150/84 (106) 95 07/25/19 09:00 Room Air 07/24/19 19:00 2.0 28 Laboratory Tests Test 07/25/19 05:40 White Blood Count 18.0 K/UL (4.8-10.8) H Red Blood Count 3.89 M/UL (4.70-6.10) L Hemoglobin 9.7 G/DL (14.2-18.0) L Hematocrit 30.4 % (42.0-52.0) L Mean Corpuscular Volume 78 FL (80-99) L Mean Corpuscular Hemoglobin 24.9 PG (27.0-31.0) L Mean Corpuscular Hemoglobin Concent 31.9 G/DL (32.0-36.0) L Red Cell Distribution Width 18.4 % (11.6-14.8) H Platelet Count 402 K/UL (150-450) Mean Platelet Volume 6.1 FL (6.5-10.1) L Neutrophils (%) (Auto) % (45.0-75.0) Lymphocytes (%) (Auto) % (20.0-45.0) Monocytes (%) (Auto) % (1.0-10.0) Eosinophils (%) (Auto) % (0.0-3.0) Basophils (%) (Auto) % (0.0-2.0) Differential Total Cells Counted 100 Neutrophils % (Manual) 42 % (45-75) L Lymphocytes % (Manual) 40 % (20-45) Monocytes % (Manual) 13 % (1-10) H Eosinophils % (Manual) 5 % (0-3) H Basophils % (Manual) 0 % (0-2) Band Neutrophils 0 % (0-8) Nucleated Red Blood Cells 27 /100 WBC Platelet Estimate Adequate Platelet Morphology Normal Polychromasia 2+ Hypochromasia 1+ Anisocytosis 1+ Microcytosis 1+ Sodium Level 138 MMOL/L (136-145) Potassium Level 4.0 MMOL/L (3.5-5.1) Chloride Level 103 MMOL/L (98-107) Carbon Dioxide Level 30 MMOL/L (21-32) Anion Gap 6 mmol/L (5-15) Blood Urea Nitrogen 6 mg/dL (7-18) L Creatinine 0.5 MG/DL (0.55-1.30) L Estimat Glomerular Filtration Rate > 60 mL/min (>60) Glucose Level 82 MG/DL (74-106) Calcium Level 8.8 MG/DL (8.5-10.1) Intake and Output 07/24/19 07/25/19 19:00 07:00 Intake Total 2050 ml 1480 ml Output Total 2000 ml 1000 ml Balance 50 ml 480 ml Intake Oral 950 ml 480 ml IV Total 1100 ml 1000 ml Output Urine Total 2000 ml 1000 ml # Voids 1 2 Objective General Appearance: WD/WN, alert, mild distress EENT: PERRL/EOMI, normal ENT inspection, pharynx normal Neck: non-tender, normal alignment, supple, normal inspection Cardiovascular: normal peripheral pulses, normal rate, regular rhythm, no gallop/murmur, no JVD Respiratory/Chest: chest wall non-tender, lungs clear, normal breath sounds, no respiratory distress, no accessory muscle use Abdomen: normal bowel sounds, non tender, soft, no organomegaly, no mass Extremities: normal range of motion, non-tender Neurologic: pediatric surgeon II-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 Pain management - oral and IV (5) Leukocytosis Assessment & Plan: Worsening. ?reactive? Follow CBC (6) Sickle cell crisis (7) Fever Assessment & Plan: Low grade. Port a cath right chest. await Blood culture results and CXR. ID consult=Dr. Martin. Start vanco for possible line sepsis Edilson Rubalcava MD Jul 25, 2019 18:24
--- NOTE | 2019-07-25 19:30 | NUR ---
NURSE NOTES: Patient in bed, alert and oriented x4, ambulatory, with pain of 8/10. Encouraged to use call light when assistance is needed. Bed in lowest and lock engaged. Will continue to monitor.
--- NOTE | 2019-07-25 19:40 | NUR ---
HAND-OFF: Report given to Gissel SORENSEN.
[2019-07-25 20:00] VITALS: BP 119/58
[2019-07-25] MEDS: Dyna-Hex 2% Top Sol 2oz TOPIC SCH (20:03)
[2019-07-25] MEDS: Vancomycin 1.5gm/NS Premix q24h IVPB SCH (21:38)
[2019-07-26] VITALS: BP 139/83
[2019-07-26] MEDS: DiphenhydrAMINE 50mg/ml Inj IVP PRN ×6 (02:24→23:48)
[2019-07-26 04:00] VITALS: BP 135/83
[2019-07-26] MEDS: Heparin 5000 units/ml inj SUBQ SCH ×3 (05:12→22:00)
[2019-07-26 06:02] LABS: ANION GAP 8 mmol/L (5-15); BLOOD UREA NITROGEN 8 mg/dL (7-18); CALCIUM 8.6 MG/DL (8.5-10.1); CARBON DIOXIDE 28 MMOL/L (21-32); CHLORIDE 102 MMOL/L (98-107); CREATININE 0.7 MG/DL (0.55-1.30); POTASSIUM 4.1 MMOL/L (3.5-5.1); SODIUM 138 MMOL/L (136-145)
[2019-07-26 06:15] LABS: HEMATOCRIT 29.6 % (42.0-52.0); HEMOGLOBIN 9.3 G/DL (14.2-18.0); MEAN CORPUSCULAR VOLUME 79 FL (80-99); PLATELET COUNT 407 K/UL (150-450); RED BLOOD COUNT 3.73 M/UL (4.70-6.10); RED CELL DISTRIBUTION WIDTH 18.4 % (11.6-14.8); WHITE BLOOD COUNT 18.6 K/UL (4.8-10.8)
[2019-07-26] MEDS: D5 1/2NS 1,000 ML IV SCH ×2 (06:32→15:13)
--- NOTE | 2019-07-26 07:16 | NUR ---
HAND-OFF: Report given to EDU Renteria.
--- NOTE | 2019-07-26 07:17 | NUR ---
NURSE NOTES: Received patient in bed awake. No SOB or acute distress. Portacath on RUC intact, no s/s of infection. Portacath dressing intact. On pain management. HOB elevated. Bed locked in lowest position. Call light within reach. Will continue plan of care.
[2019-07-26 08:00] VITALS: BP 135/70
[2019-07-26] MEDS: Aspirin Baby 81mg ORAL SCH (08:34)
[2019-07-26] MEDS: Vancomycin 1.5gm/NS Premix q24h IVPB SCH ×2 (08:46→21:18)
[2019-07-26] MEDS: oxyCONTIN 20mg tab ORAL SCH ×2 (09:28→21:11)
[2019-07-26 12:00] VITALS: BP 138/89
--- NOTE | 2019-07-26 14:36 | Consultation ---
History of Present Illness General Date patient seen: Jul 26, 2019 Chief Complaint: Pain Reason for Consultation: Leukocytosis Present Illness HPI Mr. Cope is a 23 yo male with PMHx of Sickle cell disease, Beta thalassemia, Asthma and Avascular necrosis of left hip pain who presented to the ED on with sickle cell crisis. The patient has had severe pain and anemia. His WBCs have been elevated throughout his hispitalization but have been increasing over the last 3 days. He had a single high temp of 100.2 on 07/23/19. A blood Cx was ordered on 07/24/19 to look for bacteremia. ID was consulted for leukocytosis PMHx/PSHx Sickle cell disease Beta thalassemia Asthma Avascular necrosis of left hip pain Splenectomy Port-A-Cath placement in the right chest SocHx No E/T/D FamHx Not Contributory Allergies: Coded Allergies: CAPSAICIN (Verified Allergy, Unknown, 11/23/18) CEFTRIAXONE (Verified Allergy, Unknown, 11/23/18) IOPAMIDOL (Unverified Allergy, Unknown, 01/01/19) Uncoded Allergies: IV CONTRAST (Allergy, Unknown, 01/01/19) CONTRAST (Adverse Reaction, Severe, Rash, 06/23/16) RADIOCONTRAST - RASH, ITCHING Medication History Scheduled Aspirin* (Aspirin*), 81 MG ORAL DAILY, (Reported) Folic Acid* (Folic Acid*), 1 MG ORAL DAILY, (Reported) Hydroxyurea (Hydroxyurea), 3 CAP PO DAILY, (Reported) Oxycodone Hcl Er* (Oxycontin*), 20 MG ORAL EVERY 12 HOURS, (Reported) Scheduled PRN Albuterol Sulfate* (Albuterol Sulfate Mdi*), 2 PUFF INH Q4-8HR PRN for Shortness of Breath, (Reported) Hydromorphone Hcl (Hydromorphone Hcl), 2 TAB ORAL Q3-6HRS PRN for Severe Pain ( Pain Scale 7-10), (Reported) Patient History Healthcare decision maker Resuscitation status Full Code Advanced Directive on File No Review of Systems ROS Narrative 12 point ROS negative except as noted in the HPI Physical Exam Last 24 Hour Vital Signs Date Time Temp Pulse Resp B/P (MAP) Pulse Ox O2 Delivery O2 Flow Rate FiO2 07/26/19 09:00 Room Air 07/26/19 08:00 98.5 69 16 135/70 (91) 98 07/26/19 04:00 98.2 76 18 135/83 (100) 97 07/26/19 02:55 98.8 07/26/19 00:00 98.8 80 18 139/83 (101) 96 07/25/19 21:00 Room Air 07/25/19 20:05 96 Nasal Cannula 2.0 28 07/25/19 20:05 75 14 96 Nasal Cannula 2.0 28 07/25/19 20:00 98.6 77 17 119/58 (78) 97 07/25/19 16:00 98.2 69 18 150/84 (106) 95 Intake and Output 07/25/19 07/26/19 19:00 07:00 Intake Total 1500 ml 780 ml Output Total 2000 ml Balance 1500 ml -1220 ml Intake Oral 500 ml 780 ml IV Total 1000 ml Output Urine Total 2000 ml # Voids 3 4 Laboratory Tests Test 07/26/19 04:20 White Blood Count 18.6 K/UL (4.8-10.8) H Red Blood Count 3.73 M/UL (4.70-6.10) L Hemoglobin 9.3 G/DL (14.2-18.0) L Hematocrit 29.6 % (42.0-52.0) L Mean Corpuscular Volume 79 FL (80-99) L Mean Corpuscular Hemoglobin 25.0 PG (27.0-31.0) L Mean Corpuscular Hemoglobin Concent 31.5 G/DL (32.0-36.0) L Red Cell Distribution Width 18.4 % (11.6-14.8) H Platelet Count 407 K/UL (150-450) Mean Platelet Volume 5.9 FL (6.5-10.1) L Neutrophils (%) (Auto) % (45.0-75.0) Lymphocytes (%) (Auto) % (20.0-45.0) Monocytes (%) (Auto) % (1.0-10.0) Eosinophils (%) (Auto) % (0.0-3.0) Basophils (%) (Auto) % (0.0-2.0) Differential Total Cells Counted 100 Neutrophils % (Manual) 55 % (45-75) Lymphocytes % (Manual) 29 % (20-45) Monocytes % (Manual) 14 % (1-10) H Eosinophils % (Manual) 2 % (0-3) Basophils % (Manual) 0 % (0-2) Band Neutrophils 0 % (0-8) Nucleated Red Blood Cells 25 /100 WBC Platelet Estimate Adequate Platelet Morphology Normal Polychromasia 2+ Hypochromasia 1+ Anisocytosis 1+ Sodium Level 138 MMOL/L (136-145) Potassium Level 4.1 MMOL/L (3.5-5.1) Chloride Level 102 MMOL/L (98-107) Carbon Dioxide Level 28 MMOL/L (21-32) Anion Gap 8 mmol/L (5-15) Blood Urea Nitrogen 8 mg/dL (7-18) Creatinine 0.7 MG/DL (0.55-1.30) Estimat Glomerular Filtration Rate > 60 mL/min (>60) Glucose Level 90 MG/DL (74-106) Calcium Level 8.6 MG/DL (8.5-10.1) Height (Feet): 5 Height (Inches): 6.00 Weight (Pounds): 264 Medications Current Medications Medications (Trade) Dose Ordered Sig/Arianne Route PRN Reason Start Time Stop Time Status Last Admin Dose Admin Acetaminophen (Tylenol) 650 mg Q6H PRN ORAL Mild Pain/Temp > 100.5 07/15/19 18:15 08/14/19 18:14 Albuterol Sulfate (Proventil MDI) 2 puff Q4H PRN INH Shortness of Breath 07/15/19 18:30 08/14/19 18:29 Aspirin (ASA) 81 mg DAILY ORAL 07/16/19 09:00 08/15/19 08:59 07/26/19 08:34 Chlorhexidine Gluconate (Jihan-Hex 2%) 1 applic DAILY@2000 TOPIC 07/18/19 20:00 08/17/19 19:59 07/25/19 20:03 Dextrose/Sodium Chloride 1,000 ml @ 100 mls/hr Q10H IV 07/15/19 18:15 08/14/19 18:14 07/26/19 06:32 Diphenhydramine HCl (Benadryl) 50 mg Q4H PRN IVP Itching 07/15/19 18:15 08/14/19 18:14 07/26/19 10:43 Folic Acid (Folate) 1 mg DAILY ORAL 07/16/19 09:00 08/15/19 08:59 07/26/19 08:34 Heparin Sodium (Porcine) (Heparin 5000 units/ml) 5,000 units EVERY 8 HOURS SUBQ 07/15/19 22:00 08/14/19 21:59 07/26/19 13:07 Hydromorphone HCl (Dilaudid) 2 mg Q2H PRN IVP breakthrough pain 07/22/19 20:15 07/29/19 20:14 07/26/19 13:05 Levofloxacin 100 ml @ 100 mls/hr Q24H IVPB 07/25/19 20:00 08/01/19 19:59 07/25/19 20:03 Ondansetron HCl (Zofran) 4 mg Q4H PRN IVP Nausea & Vomiting 07/15/19 18:15 08/14/19 18:14 Oxycodone HCl (OxyCONTIN) 20 mg Q12HR ORAL 07/25/19 21:00 08/01/19 20:59 07/26/19 09:28 Vancomycin HCl (Vanco rx to dose) 1 ea DAILY PRN MISC Per rx protocol 07/25/19 18:30 08/24/19 18:29 Vancomycin/Sodium Chloride 275 ml @ 137.5 mls/ hr Q12HR@0900,2100 IVPB 07/25/19 21:00 07/30/19 20:59 07/26/19 08:46 Objective Narrative Gen: NAD, In Pain HEENT: NCAT, MMM, EOMI, PERRL, No Oral lesion, no scleral icterus NECK: full range of motion, supple, no meningismus, No LAD, No JVD LUNGS: CTAB, No W/C, No Accessory muscle use, right chest michelet cath ( No E/P) CARDS: RRR, S1, S2, No M/R/G, ABD: Soft, NT, ND, No R/G, + BS, No HSM, No Masses : Deferred Ext: C/C/E, Pulses 2+ B/L (DP, Rad): NEURO: A/O x 4, Strength and Sensation Grossly intact PSYCH: Normal mood and affect SKIN: Warm/dry, No rashes Assessment/Plan Assessment/Plan: 23 yo male with PMHx of Sickle cell disease, Beta thalassemia, Asthma and Avascular necrosis of left hip pain who presented to the ED on 07/18/19 with sickle cell crisis. Leukcoytosis Most likely secondary to sickle cell f/u Blood Cx to r/o bacteremia Afebrile Sickle cell disease Beta thalassemia Asthma Avascular necrosis of left hip pain PLAN - repeat Blood Cx - Continue Vancomcyin #2 pending Cx - f/u Culture - monitor CBC and Temps Thank you for this consult. [facility] will continue to follow the patient with you during this hospitalization. Yasmany Martin MD Jul 26, 2019 14:36
[2019-07-26 16:00] VITALS: BP 139/79
--- NOTE | 2019-07-26 17:13 | NUR ---
CASE MANAGEMENT:REVIEW 07/26/19 SI:AVASCULAR NECROSIS LEFT HIP . SICKLE CELL DISEASE . LEUKOCYTOSIS 98.1 77 18 129/71 96% ON RA WBC 18.6 H/H 9.3/29.6 IS: IVF D5@100/HR IV VANCO BID IV LEVOFLOXACIN X1 IV DILAUDID Q2HRS PRN HEPARIN SQ [id number] HAS BEEN REFUSING FOLATE PO QD ASA PO QD : MED/SURG STATUS 3 EAST DCP: HOME WHEN MEDICALLY CLEARED PLAN: ID TO SEE PATIENT
--- NOTE | 2019-07-26 17:57 | Internal Med Progress Note ---
Subjective Date of Service: Jul 26, 2019 Physician Name Edilson Rubalcava Attending Physician Jersey Bearden MD Current Medications Medications (Trade) Dose Ordered Sig/Arianne Route PRN Reason Start Time Stop Time Status Last Admin Dose Admin Acetaminophen (Tylenol) 650 mg Q6H PRN ORAL Mild Pain/Temp > 100.5 07/15/19 18:15 08/14/19 18:14 Albuterol Sulfate (Proventil MDI) 2 puff Q4H PRN INH Shortness of Breath 07/15/19 18:30 08/14/19 18:29 Aspirin (ASA) 81 mg DAILY ORAL 07/16/19 09:00 08/15/19 08:59 07/26/19 08:34 Chlorhexidine Gluconate (Jihan-Hex 2%) 1 applic DAILY@2000 TOPIC 07/18/19 20:00 08/17/19 19:59 07/25/19 20:03 Dextrose/Sodium Chloride 1,000 ml @ 100 mls/hr Q10H IV 07/15/19 18:15 08/14/19 18:14 07/26/19 15:13 Diphenhydramine HCl (Benadryl) 50 mg Q4H PRN IVP Itching 07/15/19 18:15 08/14/19 18:14 07/26/19 15:10 Folic Acid (Folate) 1 mg DAILY ORAL 07/16/19 09:00 08/15/19 08:59 07/26/19 08:34 Heparin Sodium (Porcine) (Heparin 5000 units/ml) 5,000 units EVERY 8 HOURS SUBQ 07/15/19 22:00 08/14/19 21:59 07/26/19 13:07 Hydromorphone HCl (Dilaudid) 2 mg Q2H PRN IVP breakthrough pain 07/22/19 20:15 07/29/19 20:14 07/26/19 17:19 Ondansetron HCl (Zofran) 4 mg Q4H PRN IVP Nausea & Vomiting 07/15/19 18:15 08/14/19 18:14 Oxycodone HCl (OxyCONTIN) 20 mg Q12HR ORAL 07/25/19 21:00 08/01/19 20:59 07/26/19 09:28 Vancomycin HCl (Vanco rx to dose) 1 ea DAILY PRN MISC Per rx protocol 07/25/19 18:30 08/24/19 18:29 Vancomycin/Sodium Chloride 275 ml @ 137.5 mls/ hr Q12HR@0900,2100 IVPB 07/25/19 21:00 07/30/19 20:59 07/26/19 08:46 Allergies: Coded Allergies: CAPSAICIN (Verified Allergy, Unknown, 11/23/18) CEFTRIAXONE (Verified Allergy, Unknown, 11/23/18) IOPAMIDOL (Unverified Allergy, Unknown, 01/01/19) Uncoded Allergies: IV CONTRAST (Allergy, Unknown, 01/01/19) CONTRAST (Adverse Reaction, Severe, Rash, 06/23/16) RADIOCONTRAST - RASH, ITCHING ROS Limited/Unobtainable: No Constitutional: Reports: no symptoms HEENT: Reports: no symptoms Cardiovascular: Reports: no symptoms Respiratory: Reports: no symptoms Gastrointestinal/Abdominal: Reports: no symptoms Genitourinary: Reports: no symptoms Neurologic/Psychiatric: Reports: no symptoms Subjective 23 YO M admitted with sickle cell crisis. Cover for [facility] Med-Dr Bearden. Worsening leukocytosis; low grade fever. Objective Last Vital Signs Date Time Temp Pulse Resp B/P (MAP) Pulse Ox O2 Delivery O2 Flow Rate FiO2 07/26/19 12:00 99.3 98 18 138/89 (105) 96 07/26/19 09:00 Room Air 07/25/19 20:05 2.0 28 Laboratory Tests Test 07/26/19 04:20 White Blood Count 18.6 K/UL (4.8-10.8) H Red Blood Count 3.73 M/UL (4.70-6.10) L Hemoglobin 9.3 G/DL (14.2-18.0) L Hematocrit 29.6 % (42.0-52.0) L Mean Corpuscular Volume 79 FL (80-99) L Mean Corpuscular Hemoglobin 25.0 PG (27.0-31.0) L Mean Corpuscular Hemoglobin Concent 31.5 G/DL (32.0-36.0) L Red Cell Distribution Width 18.4 % (11.6-14.8) H Platelet Count 407 K/UL (150-450) Mean Platelet Volume 5.9 FL (6.5-10.1) L Neutrophils (%) (Auto) % (45.0-75.0) Lymphocytes (%) (Auto) % (20.0-45.0) Monocytes (%) (Auto) % (1.0-10.0) Eosinophils (%) (Auto) % (0.0-3.0) Basophils (%) (Auto) % (0.0-2.0) Differential Total Cells Counted 100 Neutrophils % (Manual) 55 % (45-75) Lymphocytes % (Manual) 29 % (20-45) Monocytes % (Manual) 14 % (1-10) H Eosinophils % (Manual) 2 % (0-3) Basophils % (Manual) 0 % (0-2) Band Neutrophils 0 % (0-8) Nucleated Red Blood Cells 25 /100 WBC Platelet Estimate Adequate Platelet Morphology Normal Polychromasia 2+ Hypochromasia 1+ Anisocytosis 1+ Sodium Level 138 MMOL/L (136-145) Potassium Level 4.1 MMOL/L (3.5-5.1) Chloride Level 102 MMOL/L (98-107) Carbon Dioxide Level 28 MMOL/L (21-32) Anion Gap 8 mmol/L (5-15) Blood Urea Nitrogen 8 mg/dL (7-18) Creatinine 0.7 MG/DL (0.55-1.30) Estimat Glomerular Filtration Rate > 60 mL/min (>60) Glucose Level 90 MG/DL (74-106) Calcium Level 8.6 MG/DL (8.5-10.1) Intake and Output 07/25/19 07/26/19 19:00 07:00 Intake Total 1500 ml 780 ml Output Total 2000 ml Balance 1500 ml -1220 ml Intake Oral 500 ml 780 ml IV Total 1000 ml Output Urine Total 2000 ml # Voids 3 4 Objective General Appearance: WD/WN, alert, mild distress EENT: PERRL/EOMI, normal ENT inspection, pharynx normal Neck: non-tender, normal alignment, supple, normal inspection Cardiovascular: normal peripheral pulses, normal rate, regular rhythm, no gallop/murmur, no JVD Respiratory/Chest: chest wall non-tender, lungs clear, normal breath sounds, no respiratory distress, no accessory muscle use Abdomen: normal bowel sounds, non tender, soft, no organomegaly, no mass Extremities: normal range of motion, non-tender 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 Pain management - oral and IV (5) Leukocytosis Assessment & Plan: Worsening. ?reactive? Follow CBC (6) Sickle cell crisis (7) Fever Assessment & Plan: Low grade. Port a cath right chest. await Blood culture results and CXR. ID consult=Dr. Martin. Start vanco for possible line sepsis Edilson Rubalcava MD Jul 26, 2019 17:57
--- NOTE | 2019-07-26 19:29 | Diagnostic Imaging Report ---
Indication: Cough Technique: One view of the chest Comparison: 07/15/2019 Findings: Aeration is suboptimal Lungs and pleural spaces are clear. The heart size is upper limits normal. There is a right chest port catheter again demonstrated. Previously reported interstitial congestion is no longer evident Impression: No acute process
--- NOTE | 2019-07-26 19:30 | NUR ---
HAND-OFF: Report given to Meg.
--- NOTE | 2019-07-26 19:56 | NUR ---
NURSE NOTES: Received report from RN Myra, patient remains stable a/oX4, breaths even regular unlabored at r/a. C/o pain of 9/10. pain medication provided during shift change . Pt has a R upper chest michelet cath with I.v fluids running, patent and asymptomatic. Will continue to monitor
[2019-07-26 20:00] VITALS: BP 136/77
[2019-07-26] MEDS: Dyna-Hex 2% Top Sol 2oz TOPIC SCH (21:18)
[2019-07-27] VITALS: BP 152/80
[2019-07-27] MEDS: D5 1/2NS 1,000 ML IV SCH ×3 (00:15→20:15)
[2019-07-27] MEDS: DiphenhydrAMINE 50mg/ml Inj IVP PRN ×5 (03:57→22:36)
[2019-07-27 04:00] VITALS: BP 135/81
[2019-07-27] MEDS: Heparin 5000 units/ml inj SUBQ SCH ×3 (06:00→22:00)
[2019-07-27 06:12] LABS: HEMATOCRIT 27.5 % (42.0-52.0); HEMOGLOBIN 8.8 G/DL (14.2-18.0); MEAN CORPUSCULAR VOLUME 79 FL (80-99); PLATELET COUNT 346 K/UL (150-450); RED BLOOD COUNT 3.48 M/UL (4.70-6.10); RED CELL DISTRIBUTION WIDTH 18.5 % (11.6-14.8); WHITE BLOOD COUNT 20.8 K/UL (4.8-10.8)
[2019-07-27 06:46] LABS: ANION GAP 7 mmol/L (5-15); BLOOD UREA NITROGEN 7 mg/dL (7-18); CALCIUM 8.7 MG/DL (8.5-10.1); CARBON DIOXIDE 27 MMOL/L (21-32); CHLORIDE 101 MMOL/L (98-107); CREATININE 0.6 MG/DL (0.55-1.30); SODIUM 135 MMOL/L (136-145)
--- NOTE | 2019-07-27 07:10 | NUR ---
NURSE NOTES: Received patient asleep , but arousable no sign of distress, IVFluids running, patent and asymptomatic thru michelet cath. plan of care was discussed verbalized understanding Will continue to monitor javi kulkarni
[2019-07-27 08:00] VITALS: BP 124/70
[2019-07-27] MEDS: oxyCONTIN 20mg tab ORAL SCH ×2 (09:11→20:23)
[2019-07-27] MEDS: Aspirin Baby 81mg ORAL SCH (09:11)
[2019-07-27] MEDS: Vancomycin 1.25gm/NS Premix q24h IVPB SCH ×2 (10:23→18:08)
[2019-07-27 12:07] VITALS: BP 135/78
--- NOTE | 2019-07-27 12:56 | Infectious Diseases Prog Note ---
Assessment/Plan Assessment/Plan 23 yo male with PMHx of Sickle cell disease, Beta thalassemia, Asthma and Avascular necrosis of left hip pain who presented to the ED on 07/18/19 with sickle cell crisis. Leukocytosis Most likely secondary to sickle cell f/u Blood Cx 07/24/19 and 07/26/19 to r/o bacteremia Afebrile Sickle cell disease Beta thalassemia Asthma Avascular necrosis of left hip pain PLAN - If Leukocytosis continues to increase will get CT abd/pel to R/O Abscess - repeat Blood Cx - Continue Vancomycin #3 - pending Cx - f/u Culture - monitor CBC and Temps Thank you for this consult. [facility] will continue to follow the patient with you during this hospitalization. Yasmany Martin MD Jul 26, 2019 14:36 Subjective Allergies: Coded Allergies: CAPSAICIN (Verified Allergy, Unknown, 11/23/18) CEFTRIAXONE (Verified Allergy, Unknown, 11/23/18) IOPAMIDOL (Unverified Allergy, Unknown, 01/01/19) Uncoded Allergies: IV CONTRAST (Allergy, Unknown, 01/01/19) CONTRAST (Adverse Reaction, Severe, Rash, 06/23/16) RADIOCONTRAST - RASH, ITCHING Subjective Patient with continued pain Afebrile Leukocytosis increasing Blood Cx NGTD x 48hr Objective Vital Signs Last 24 Hour Vital Signs Date Time Temp Pulse Resp B/P (MAP) Pulse Ox O2 Delivery O2 Flow Rate FiO2 07/27/19 12:07 98.3 60 20 135/78 (97) 97 07/27/19 09:41 98.4 07/27/19 08:36 66 18 95 Room Air 21 07/27/19 08:35 95 Room Air 21 07/27/19 08:00 98.3 67 20 124/70 (88) 95 07/27/19 08:00 Room Air 07/27/19 04:00 98.4 76 19 135/81 (99) 98 07/27/19 00:00 99.1 87 18 152/80 (104) 98 07/26/19 21:00 Room Air 07/26/19 20:00 98.8 99 19 136/77 (96) 96 07/26/19 19:01 91 14 100 Nasal Cannula 2.0 28 07/26/19 19:00 100 Nasal Cannula 2.0 28 12/19/19 16:00 98.3 96 17 139/79 (99) 99 Height (Feet): 5 Height (Inches): 6.00 Weight (Pounds): 264 Objective Gen: NAD, In Pain HEENT: NCAT, MMM, EOMI LUNGS: CTAB, No W/C, right chest michelet cath ( No E/P) CARDS: RRR, S1, S2 ABD: Soft, NT, ND Microbiology Date/Time Source Procedure Growth Status 07/24/19 17:50 Blood Blood Culture - Preliminary NO GROWTH AFTER 48 HOURS Resulted 07/24/19 17:50 Blood Blood Culture - Preliminary NO GROWTH AFTER 48 HOURS Resulted Laboratory Tests Test 07/27/19 04:30 07/27/19 08:00 White Blood Count 20.8 K/UL (4.8-10.8) H Red Blood Count 3.48 M/UL (4.70-6.10) L Hemoglobin 8.8 G/DL (14.2-18.0) L Hematocrit 27.5 % (42.0-52.0) L Mean Corpuscular Volume 79 FL (80-99) L Mean Corpuscular Hemoglobin 25.3 PG (27.0-31.0) L Mean Corpuscular Hemoglobin Concent 32.1 G/DL (32.0-36.0) Red Cell Distribution Width 18.5 % (11.6-14.8) H Platelet Count 346 K/UL (150-450) Mean Platelet Volume 6.4 FL (6.5-10.1) L Neutrophils (%) (Auto) % (45.0-75.0) Lymphocytes (%) (Auto) % (20.0-45.0) Monocytes (%) (Auto) % (1.0-10.0) Eosinophils (%) (Auto) % (0.0-3.0) Basophils (%) (Auto) % (0.0-2.0) Differential Total Cells Counted 100 Neutrophils % (Manual) 42 % (45-75) L Lymphocytes % (Manual) 42 % (20-45) Monocytes % (Manual) 11 % (1-10) H Eosinophils % (Manual) 5 % (0-3) H Basophils % (Manual) 0 % (0-2) Band Neutrophils 0 % (0-8) Nucleated Red Blood Cells 32 /100 WBC Platelet Estimate Adequate Platelet Morphology Normal Polychromasia 2+ Hypochromasia 1+ Anisocytosis 1+ Sodium Level 135 MMOL/L (136-145) L Potassium Level 4.0 MMOL/L (3.5-5.1) Chloride Level 101 MMOL/L (98-107) Carbon Dioxide Level 27 MMOL/L (21-32) Anion Gap 7 mmol/L (5-15) Blood Urea Nitrogen 7 mg/dL (7-18) Creatinine 0.6 MG/DL (0.55-1.30) Estimat Glomerular Filtration Rate > 60 mL/min (>60) Glucose Level 96 MG/DL (74-106) Calcium Level 8.7 MG/DL (8.5-10.1) Vancomycin Level Trough 4.5 ug/mL (5.0-12.0) L Current Medications Medications (Trade) Dose Ordered Sig/Arianne Route PRN Reason Start Time Stop Time Status Last Admin Dose Admin Acetaminophen (Tylenol) 650 mg Q6H PRN ORAL Mild Pain/Temp > 100.5 07/15/19 18:15 08/14/19 18:14 Albuterol Sulfate (Proventil MDI) 2 puff Q4H PRN INH Shortness of Breath 07/15/19 18:30 08/14/19 18:29 Aspirin (ASA) 81 mg DAILY ORAL 07/16/19 09:00 08/15/19 08:59 07/27/19 09:11 Chlorhexidine Gluconate (Jihan-Hex 2%) 1 applic DAILY@2000 TOPIC 07/18/19 20:00 08/17/19 19:59 07/26/19 21:18 Dextrose/Sodium Chloride 1,000 ml @ 100 mls/hr Q10H IV 07/15/19 18:15 08/14/19 18:14 07/27/19 01:59 Diphenhydramine HCl (Benadryl) 50 mg Q4H PRN IVP Itching 07/15/19 18:15 08/14/19 18:14 07/27/19 12:37 Folic Acid (Folate) 1 mg DAILY ORAL 07/16/19 09:00 08/15/19 08:59 07/27/19 09:10 Heparin Sodium (Porcine) (Heparin 5000 units/ml) 5,000 units EVERY 8 HOURS SUBQ 07/15/19 22:00 08/14/19 21:59 12/19/19 13:07 Hydromorphone HCl (Dilaudid) 2 mg Q2H PRN IVP breakthrough pain 07/22/19 20:15 07/29/19 20:14 07/27/19 12:38 Ondansetron HCl (Zofran) 4 mg Q4H PRN IVP Nausea & Vomiting 07/15/19 18:15 08/14/19 18:14 Oxycodone HCl (OxyCONTIN) 20 mg Q12HR ORAL 07/25/19 21:00 08/01/19 20:59 07/27/19 09:11 Vancomycin HCl (Vanco rx to dose) 1 ea DAILY PRN MISC Per rx protocol 07/25/19 18:30 08/24/19 18:29 Vancomycin/Sodium Chloride 275 ml @ 183.333 mls/hr Q8H IVPB 07/27/19 10:00 08/01/19 09:59 07/27/19 10:23 Yasmany Martin MD Jul 27, 2019 12:56
--- NOTE | 2019-07-27 13:16 | NUR ---
RD ASSESSMENT & RECOMMENDATIONS SEE CARE ACTIVITY FOR COMPLETE ASSESSMENT DAILY ESTIMATED NEEDS: Needs based on Obese 78.5 kg abw 20-25 kcals/kg 4412-1522 total kcals 1-1.5 g protein/kg 79-118 g total protein 25-30 mL/kg 1933-5397 total fluid mLs NUTRITION DIAGNOSIS: 1) Obesity etiology unknown as evidenced by BMI >40, pt is 187% [place] Body Weight. 2) Altered nutrition related lab values r/t clinical status, sickle cell crisis, low hgb 8.8, elev LDH 255, elev T bili 1.6. CURRENT DIET:Regular PO DIET RECOMMENDATIONS: Low NA/ Low FAT diet ADDITIONAL RECOMMENDATIONS: 1) Weekly standing wt monitoring (pt on a bed without bedscale) 2) Consider DC D5 in IVF: Na low 135 (07/27) 3) Monitor BM regularity: last recorded BM on 07/21. -> consider daily bowel regimen.
[2019-07-27 16:00] VITALS: BP 130/61
--- NOTE | 2019-07-27 16:00 | Internal Med Progress Note ---
Subjective Physician Name Jersey Bearden Attending Physician Jersey Bearden MD Current Medications Medications (Trade) Dose Ordered Sig/Arianne Route PRN Reason Start Time Stop Time Status Last Admin Dose Admin Acetaminophen (Tylenol) 650 mg Q6H PRN ORAL Mild Pain/Temp > 100.5 07/15/19 18:15 08/14/19 18:14 Albuterol Sulfate (Proventil MDI) 2 puff Q4H PRN INH Shortness of Breath 07/15/19 18:30 08/14/19 18:29 Aspirin (ASA) 81 mg DAILY ORAL 07/16/19 09:00 08/15/19 08:59 07/27/19 09:11 Chlorhexidine Gluconate (Jihan-Hex 2%) 1 applic DAILY@2000 TOPIC 07/18/19 20:00 08/17/19 19:59 07/26/19 21:18 Dextrose/Sodium Chloride 1,000 ml @ 100 mls/hr Q10H IV 07/15/19 18:15 08/14/19 18:14 07/27/19 01:59 Diphenhydramine HCl (Benadryl) 50 mg Q4H PRN IVP Itching 07/15/19 18:15 08/14/19 18:14 07/27/19 12:37 Folic Acid (Folate) 1 mg DAILY ORAL 07/16/19 09:00 08/15/19 08:59 07/27/19 09:10 Heparin Sodium (Porcine) (Heparin 5000 units/ml) 5,000 units EVERY 8 HOURS SUBQ 07/15/19 22:00 08/14/19 21:59 07/26/19 13:07 Hydromorphone HCl (Dilaudid) 2 mg Q2H PRN IVP breakthrough pain 07/22/19 20:15 07/29/19 20:14 07/27/19 15:00 Ondansetron HCl (Zofran) 4 mg Q4H PRN IVP Nausea & Vomiting 07/15/19 18:15 08/14/19 18:14 Oxycodone HCl (OxyCONTIN) 20 mg Q12HR ORAL 07/25/19 21:00 08/01/19 20:59 07/27/19 09:11 Vancomycin HCl (Vanco rx to dose) 1 ea DAILY PRN MISC Per rx protocol 07/25/19 18:30 1/17/20 18:29 Vancomycin/Sodium Chloride 275 ml @ 183.333 mls/hr Q8H IVPB 07/27/19 10:00 08/01/19 09:59 07/27/19 10:23 Allergies: Coded Allergies: CAPSAICIN (Verified Allergy, Unknown, 11/23/18) CEFTRIAXONE (Verified Allergy, Unknown, 11/23/18) IOPAMIDOL (Unverified Allergy, Unknown, 01/01/19) Uncoded Allergies: IV CONTRAST (Allergy, Unknown, 01/01/19) CONTRAST (Adverse Reaction, Severe, Rash, 06/23/16) RADIOCONTRAST - RASH, ITCHING Subjective awake, alert, responsive, NO SOB, less Chest wall pain, + sweating, afebrile, leukocytosis with WBC of 20.8 Objective Last Vital Signs Date Time Temp Pulse Resp B/P (MAP) Pulse Ox O2 Delivery O2 Flow Rate FiO2 07/27/19 12:07 98.3 60 20 135/78 (97) 97 07/27/19 08:36 Room Air 21 07/26/19 19:01 2.0 Laboratory Tests Test 07/27/19 04:30 07/27/19 08:00 White Blood Count 20.8 K/UL (4.8-10.8) H Red Blood Count 3.48 M/UL (4.70-6.10) L Hemoglobin 8.8 G/DL (14.2-18.0) L Hematocrit 27.5 % (42.0-52.0) L Mean Corpuscular Volume 79 FL (80-99) L Mean Corpuscular Hemoglobin 25.3 PG (27.0-31.0) L Mean Corpuscular Hemoglobin Concent 32.1 G/DL (32.0-36.0) Red Cell Distribution Width 18.5 % (11.6-14.8) H Platelet Count 346 K/UL (150-450) Mean Platelet Volume 6.4 FL (6.5-10.1) L Neutrophils (%) (Auto) % (45.0-75.0) Lymphocytes (%) (Auto) % (20.0-45.0) Monocytes (%) (Auto) % (1.0-10.0) Eosinophils (%) (Auto) % (0.0-3.0) Basophils (%) (Auto) % (0.0-2.0) Differential Total Cells Counted 100 Neutrophils % (Manual) 42 % (45-75) L Lymphocytes % (Manual) 42 % (20-45) Monocytes % (Manual) 11 % (1-10) H Eosinophils % (Manual) 5 % (0-3) H Basophils % (Manual) 0 % (0-2) Band Neutrophils 0 % (0-8) Nucleated Red Blood Cells 32 /100 WBC Platelet Estimate Adequate Platelet Morphology Normal Polychromasia 2+ Hypochromasia 1+ Anisocytosis 1+ Sodium Level 135 MMOL/L (136-145) L Potassium Level 4.0 MMOL/L (3.5-5.1) Chloride Level 101 MMOL/L (98-107) Carbon Dioxide Level 27 MMOL/L (21-32) Anion Gap 7 mmol/L (5-15) Blood Urea Nitrogen 7 mg/dL (7-18) Creatinine 0.6 MG/DL (0.55-1.30) Estimat Glomerular Filtration Rate > 60 mL/min (>60) Glucose Level 96 MG/DL (74-106) Calcium Level 8.7 MG/DL (8.5-10.1) Vancomycin Level Trough 4.5 ug/mL (5.0-12.0) L Microbiology Date/Time Source Procedure Growth Status 07/24/19 17:50 Blood Blood Culture - Preliminary NO GROWTH AFTER 48 HOURS Resulted 07/24/19 17:50 Blood Blood Culture - Preliminary NO GROWTH AFTER 48 HOURS Resulted Intake and Output 07/26/19 07/27/19 19:00 07:00 Intake Total 975.0 ml 1040 ml Output Total 2300 ml Balance 975.0 ml -1260 ml Intake Oral 940 ml IV Total 975.0 ml 100 ml Output Urine Total 2300 ml # Voids 3 Objective General: No acute distress, awake and alert HEENT: NCAT, sclera anicteric, PERRL, EOMI. Neck: Supple, no significant jugular venous distention, Lungs: Good inspiratory effort, clear to auscultation bilaterally, no Wheeze or Rales. Chest wall: Right side [place]. Heart: Regular rate and rhythm, normal S1/S2, no murmurs Abdomen: soft, nontender, nondistended. Normoactive bowel sounds, morbid Obesity. / Rectal: Refused and deferred. Extremities: No Cyanosis , clubbing or edema. Neuro: A&O x 3, Able to move all extremities Skin: warm, no rashes or lesions Psych: Normal mood and affect Assessment/Plan Assessment/Plan (1) Avascular necrosis of bone of left hip (2) Asthma (3) Beta thalassemia major (4) Sickle cell disease Assessment & Plan: IV fluids. Pain management - oral and IV (5) Leukocytosis (6) Sickle cell crisis Plan of Care: Antibiotics: Vancomycin IV. Follow-up with repeat cultures and laboratory. Follow-up with the infectious disease consultation and recommendation. Jersey Bearden MD Jul 27, 2019 16:00
--- NOTE | 2019-07-27 17:53 | NUR ---
CASE MANAGEMENT:REVIEW 07/27/19 SI: SICKLE CELL CRISIS. THALASSEMIA 96.7 83 19 130/61 100% ON RA WBC+20.8 H/H-8.8/27.5 IS: IV VANCOMYCIN Q8HRS OXYCONTIN PO Q12 IV DILAUDID Q2HRS PRN ASA PO QD IVF@100/HR : MED/SURG STATUS 3 [facility]
--- NOTE | 2019-07-27 19:20 | NUR ---
NURSE NOTES: Received report from EDU Barnes, patient remains stable a/oX4, breaths even regular unlabored at r/a. C/o pain of 9/10. pain medication to be provided when due . Pt has a R upper chest michelet cath with I.v fluids running, patent and asymptomatic. Will continue to monitor
--- NOTE | 2019-07-27 19:24 | NUR ---
HAND-OFF: Report given to EDU [place] patient resting comfortably no sign of distress,IVF on going.kept clean dry and comfortable in bed edu Fisher
[2019-07-27 20:00] VITALS: BP 138/87
[2019-07-27] MEDS: Dyna-Hex 2% Top Sol 2oz TOPIC SCH (20:22)
[2019-07-28] VITALS: BP 129/79
[2019-07-28] MEDS: Vancomycin 1.25gm/NS Premix q24h IVPB SCH ×2 (02:49→11:55)
[2019-07-28] MEDS: DiphenhydrAMINE 50mg/ml Inj IVP PRN ×5 (02:55→19:42)
[2019-07-28 04:00] VITALS: BP 127/58
[2019-07-28] MEDS: D5 1/2NS 1,000 ML IV SCH ×2 (05:15→16:50)
[2019-07-28] MEDS: Heparin 5000 units/ml inj SUBQ SCH ×3 (06:00→21:42)
--- NOTE | 2019-07-28 07:40 | NUR ---
NURSE NOTES: Received report from EDU Weaver. Patient A&Ox4. On PRN nasal cannula 2L/min, no signs of distress or labored breathing. Brenda-cath dry, intact, accessed and patent, infusing IV fluids. Reports tolerable pain. Will medicate according to pain management orders. Bed in lowest position with call light in reach. Will continue with plan of care.
--- NOTE | 2019-07-28 07:54 | NUR ---
HAND-OFF: Report given to Annelise .
[2019-07-28 08:00] VITALS: BP 118/53
[2019-07-28] MEDS: Aspirin Baby 81mg ORAL SCH (09:19)
[2019-07-28] MEDS: oxyCONTIN 20mg tab ORAL SCH ×2 (10:16→22:50)
[2019-07-28 12:00] VITALS: BP 122/82
[2019-07-28 16:00] VITALS: BP 133/85
--- NOTE | 2019-07-28 17:01 | Internal Med Progress Note ---
Subjective Date of Service: Jul 28, 2019 Physician Name Edilson Rubalcava Attending Physician Jersey Bearden MD Current Medications Medications (Trade) Dose Ordered Sig/Arianne Route PRN Reason Start Time Stop Time Status Last Admin Dose Admin Acetaminophen (Tylenol) 650 mg Q6H PRN ORAL Mild Pain/Temp > 100.5 07/15/19 18:15 08/14/19 18:14 Albuterol Sulfate (Proventil MDI) 2 puff Q4H PRN INH Shortness of Breath 07/15/19 18:30 08/14/19 18:29 Aspirin (ASA) 81 mg DAILY ORAL 07/16/19 09:00 08/15/19 08:59 07/28/19 09:19 Chlorhexidine Gluconate (Jihan-Hex 2%) 1 applic DAILY@2000 TOPIC 07/18/19 20:00 08/17/19 19:59 07/27/19 20:22 Dextrose/Sodium Chloride 1,000 ml @ 100 mls/hr Q10H IV 07/15/19 18:15 08/14/19 18:14 07/28/19 16:50 Diphenhydramine HCl (Benadryl) 50 mg Q4H PRN IVP Itching 07/15/19 18:15 08/14/19 18:14 07/28/19 15:37 Folic Acid (Folate) 1 mg DAILY ORAL 07/16/19 09:00 08/15/19 08:59 07/28/19 09:19 Heparin Sodium (Porcine) (Heparin 5000 units/ml) 5,000 units EVERY 8 HOURS SUBQ 07/15/19 22:00 08/14/19 21:59 07/26/19 13:07 Hydromorphone HCl (Dilaudid) 2 mg Q2H PRN IVP breakthrough pain 07/22/19 20:15 07/29/19 20:14 07/28/19 15:37 Ondansetron HCl (Zofran) 4 mg Q4H PRN IVP Nausea & Vomiting 07/15/19 18:15 08/14/19 18:14 Oxycodone HCl (OxyCONTIN) 20 mg Q12HR ORAL 07/25/19 21:00 08/01/19 20:59 07/28/19 10:16 Vancomycin HCl (Vanco rx to dose) 1 ea DAILY PRN MISC Per rx protocol 07/25/19 18:30 08/24/19 18:29 Vancomycin/Sodium Chloride 275 ml @ 137.5 mls/ hr Q6H IVPB 07/28/19 18:00 08/02/19 17:59 Allergies: Coded Allergies: CAPSAICIN (Verified Allergy, Unknown, 11/23/18) CEFTRIAXONE (Verified Allergy, Unknown, 11/23/18) IOPAMIDOL (Unverified Allergy, Unknown, 01/01/19) Uncoded Allergies: IV CONTRAST (Allergy, Unknown, 01/01/19) CONTRAST (Adverse Reaction, Severe, Rash, 06/23/16) RADIOCONTRAST - RASH, ITCHING ROS Limited/Unobtainable: No Constitutional: Reports: no symptoms HEENT: Reports: no symptoms Cardiovascular: Reports: no symptoms Respiratory: Reports: no symptoms Gastrointestinal/Abdominal: Reports: no symptoms Genitourinary: Reports: no symptoms Neurologic/Psychiatric: Reports: no symptoms Subjective 23 YO M admitted with sickle cell crisis. Cover for [facility] Med-Dr Bearden. Objective Last Vital Signs Date Time Temp Pulse Resp B/P (MAP) Pulse Ox O2 Delivery O2 Flow Rate FiO2 07/28/19 12:00 98.8 69 20 122/82 (95) 96 07/28/19 09:00 Room Air 07/27/19 19:47 21 07/26/19 19:01 2.0 Laboratory Tests Test 07/28/19 09:00 Vancomycin Level Trough 8.6 ug/mL (5.0-12.0) Microbiology Date/Time Source Procedure Growth Status 07/26/19 16:08 Blood Blood Culture - Preliminary NO GROWTH AFTER 24 HOURS Resulted 07/26/19 16:04 Blood Blood Culture - Preliminary NO GROWTH AFTER 24 HOURS Resulted Intake and Output 07/27/19 07/28/19 19:00 07:00 Intake Total 1358.333 ml Output Total 800 ml 900 ml Balance 558.333 ml -900 ml IV Total 1358.333 ml Output Urine Total 800 ml 900 ml # Voids 2 Objective General Appearance: WD/WN, alert, mild distress EENT: PERRL/EOMI, normal ENT inspection, pharynx normal Neck: non-tender, normal alignment, supple, normal inspection Cardiovascular: normal peripheral pulses, normal rate, regular rhythm, no gallop/murmur, no JVD Respiratory/Chest: chest wall non-tender, lungs clear, normal breath sounds, no respiratory distress, no accessory muscle use Abdomen: normal bowel sounds, non tender, soft, no organomegaly, no mass Extremities: normal range of motion, non-tender Neurologic: social media specialist II-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 Pain management - oral and IV (5) Leukocytosis Assessment & Plan: Worsening. ?reactive? Follow CBC (6) Sickle cell crisis (7) Fever Assessment & Plan: Low grade. Port a cath right chest. await Blood culture results and CXR. ID consult=Dr. Martin. Start vanco for possible line sepsis Edilson Rubalcava MD Jul 28, 2019 17:01
[2019-07-28] MEDS: Vancomycin 1.5gm/NS Premix IVPB SCH (17:46)
--- NOTE | 2019-07-28 19:19 | NUR ---
HAND-OFF: Report given to EDU Hopkins.
[2019-07-28 20:00] VITALS: BP 124/63
[2019-07-28] MEDS: Dyna-Hex 2% Top Sol 2oz TOPIC SCH (21:35)
--- NOTE | 2019-07-28 23:06 | NUR ---
NURSES NOTE: Pt in bed, A/OX4, communicative, able to express needs. No outward s/s of distress noted. Breathing pattern is even and unlabored on RA. Right subclavian port a cath intact, with no signs of infection. D5 1/2 NS running at 100ml/hr. All due meds will be given. Patient will continue to be observed.
[2019-07-29] VITALS (7 sets, daily range): BP systolic 115–157; BP diastolic 74–90
[2019-07-29] MEDS: DiphenhydrAMINE 50mg/ml Inj IVP PRN ×6 (00:01→22:07)
[2019-07-29] MEDS: Vancomycin 1.5gm/NS Premix IVPB SCH ×4 (00:01→17:42)
[2019-07-29] MEDS: Heparin 5000 units/ml inj SUBQ SCH ×3 (05:37→22:00)
[2019-07-29] MEDS: D5 1/2NS 1,000 ML IV SCH ×3 (05:38→22:06)
[2019-07-29 06:16] LABS: BASOPHILS % (AUTO) 1.3 % (0.0-2.0); HEMATOCRIT 27.2 % (42.0-52.0); HEMOGLOBIN 8.7 G/DL (14.2-18.0); MEAN CORPUSCULAR VOLUME 79 FL (80-99); MONOCYTES % (AUTO) 10.3 % (1.0-10.0); NEUTROPHILS % (AUTO) 47.3 % (45.0-75.0); PLATELET COUNT 417 K/UL (150-450); RED BLOOD COUNT 3.46 M/UL (4.70-6.10); RED CELL DISTRIBUTION WIDTH 18.8 % (11.6-14.8); WHITE BLOOD COUNT 13.8 K/UL (4.8-10.8)
[2019-07-29 06:38] LABS: ANION GAP 7 mmol/L (5-15); BLOOD UREA NITROGEN 6 mg/dL (7-18); CALCIUM 8.8 MG/DL (8.5-10.1); CARBON DIOXIDE 29 MMOL/L (21-32); CHLORIDE 103 MMOL/L (98-107); CREATININE 0.5 MG/DL (0.55-1.30); POTASSIUM 4.1 MMOL/L (3.5-5.1); SODIUM 139 MMOL/L (136-145)
--- NOTE | 2019-07-29 07:10 | NUR ---
NURSE NOTES: Report received from Kellie SORENSEN, rounds made. Patient sitting upright in bed. No distress on RA, denies NV. Tolerating breakfast, good. Bilateral knee pain 8/10, will medicate as ordered. Right upper chest Brenda-Cath in place, dressing CDI, IVF D5 1/2 at 100 ml/hr. Voids in urinal. Skin slightly moist. Moves all extremities, pulses palpable. Call light in reach, bed in lowest position, will continue to monitor.
--- NOTE | 2019-07-29 08:11 | NUR ---
HAND OFF: Report given to javi Brown. Pt left in stable condition.
[2019-07-29] MEDS: Aspirin Baby 81mg ORAL SCH (09:20)
--- NOTE | 2019-07-29 09:42 | Infectious Diseases Prog Note ---
Assessment/Plan Assessment/Plan 23 yo male with PMHx of Sickle cell disease, Beta thalassemia, Asthma and Avascular necrosis of left hip pain who presented to the ED on 07/18/19 with sickle cell crisis. Leukocytosis Most likely secondary to sickle cell f/u Blood Cx 07/24/19 and 07/26/19 to r/o bacteremia - NGTD Afebrile Sickle cell disease Beta thalassemia Asthma Avascular necrosis of left hip pain PLAN - If Leukocytosis increase will get CT abd/pel to R/O Abscess - repeat Blood Cx - Continue Vancomycin #5 - pending Cx - f/u Culture - monitor CBC and Temps Thank you for this consult. [facility] will continue to follow the patient with you during this hospitalization. Subjective Allergies: Coded Allergies: CAPSAICIN (Verified Allergy, Unknown, 11/23/18) CEFTRIAXONE (Verified Allergy, Unknown, 11/23/18) IOPAMIDOL (Unverified Allergy, Unknown, 01/01/19) Uncoded Allergies: IV CONTRAST (Allergy, Unknown, 01/01/19) CONTRAST (Adverse Reaction, Severe, Rash, 06/23/16) RADIOCONTRAST - RASH, ITCHING Subjective Patient with continued pain but improved Afebrile Leukocytosis back down to 14 Objective Vital Signs Last 24 Hour Vital Signs Date Time Temp Pulse Resp B/P (MAP) Pulse Ox O2 Delivery O2 Flow Rate FiO2 07/29/19 08:00 99.0 69 17 127/74 (91) 95 07/29/19 04:00 97.7 68 18 134/76 (95) 98 07/29/19 00:00 99.3 83 18 157/90 (112) 94 07/28/19 21:00 Room Air 07/28/19 20:00 97.2 86 19 124/63 (83) 95 07/28/19 16:00 98.9 76 20 133/85 (101) 96 07/28/19 12:00 98.8 69 20 122/82 (95) 96 Height (Feet): 5 Height (Inches): 6.00 Weight (Pounds): 264 Objective Gen: NAD HEENT: NCAT, MMM, EOMI LUNGS: CTAB, No W/C, right chest michelet cath ( No E/P) CARDS: RRR, S1, S2 ABD: Soft, NT, ND Microbiology Date/Time Source Procedure Growth Status 07/26/19 16:08 Blood Blood Culture - Preliminary NO GROWTH AFTER 48 HOURS Resulted 07/26/19 16:04 Blood Blood Culture - Preliminary NO GROWTH AFTER 48 HOURS Resulted Laboratory Tests Test 07/29/19 05:13 White Blood Count 13.8 K/UL (4.8-10.8) H Red Blood Count 3.46 M/UL (4.70-6.10) L Hemoglobin 8.7 G/DL (14.2-18.0) L Hematocrit 27.2 % (42.0-52.0) L Mean Corpuscular Volume 79 FL (80-99) L Mean Corpuscular Hemoglobin 25.2 PG (27.0-31.0) L Mean Corpuscular Hemoglobin Concent 32.0 G/DL (32.0-36.0) Red Cell Distribution Width 18.8 % (11.6-14.8) H Platelet Count 417 K/UL (150-450) Mean Platelet Volume 6.0 FL (6.5-10.1) L Neutrophils (%) (Auto) 47.3 % (45.0-75.0) Lymphocytes (%) (Auto) 37.0 % (20.0-45.0) Monocytes (%) (Auto) 10.3 % (1.0-10.0) H Eosinophils (%) (Auto) 4.0 % (0.0-3.0) H Basophils (%) (Auto) 1.3 % (0.0-2.0) Sodium Level 139 MMOL/L (136-145) Potassium Level 4.1 MMOL/L (3.5-5.1) Chloride Level 103 MMOL/L (98-107) Carbon Dioxide Level 29 MMOL/L (21-32) Anion Gap 7 mmol/L (5-15) Blood Urea Nitrogen 6 mg/dL (7-18) L Creatinine 0.5 MG/DL (0.55-1.30) L Estimat Glomerular Filtration Rate > 60 mL/min (>60) Glucose Level 94 MG/DL (74-106) Calcium Level 8.8 MG/DL (8.5-10.1) Current Medications Medications (Trade) Dose Ordered Sig/Arianne Route PRN Reason Start Time Stop Time Status Last Admin Dose Admin Acetaminophen (Tylenol) 650 mg Q6H PRN ORAL Mild Pain/Temp > 100.5 07/15/19 18:15 08/14/19 18:14 Albuterol Sulfate (Proventil MDI) 2 puff Q4H PRN INH Shortness of Breath 07/15/19 18:30 08/14/19 18:29 Aspirin (ASA) 81 mg DAILY ORAL 07/16/19 09:00 08/15/19 08:59 07/29/19 09:20 Chlorhexidine Gluconate (Jihan-Hex 2%) 1 applic DAILY@2000 TOPIC 07/18/19 20:00 08/17/19 19:59 07/28/19 21:35 Dextrose/Sodium Chloride 1,000 ml @ 100 mls/hr Q10H IV 07/15/19 18:15 08/14/19 18:14 07/29/19 05:38 Diphenhydramine HCl (Benadryl) 50 mg Q4H PRN IVP Itching 07/15/19 18:15 08/14/19 18:14 07/29/19 09:09 Folic Acid (Folate) 1 mg DAILY ORAL 07/16/19 09:00 08/15/19 08:59 07/29/19 09:20 Heparin Sodium (Porcine) (Heparin 5000 units/ml) 5,000 units EVERY 8 HOURS SUBQ 07/15/19 22:00 08/14/19 21:59 07/26/19 13:07 Hydromorphone HCl (Dilaudid) 2 mg Q2H PRN IVP breakthrough pain 07/22/19 20:15 07/29/19 20:14 07/29/19 09:08 Ondansetron HCl (Zofran) 4 mg Q4H PRN IVP Nausea & Vomiting 07/15/19 18:15 08/14/19 18:14 Oxycodone HCl (OxyCONTIN) 20 mg Q12HR ORAL 07/25/19 21:00 08/01/19 20:59 07/28/19 22:50 Vancomycin HCl (Vanco rx to dose) 1 ea DAILY PRN MISC Per rx protocol 07/25/19 18:30 08/24/19 18:29 Vancomycin/Sodium Chloride 275 ml @ 137.5 mls/ hr Q6H IVPB 07/28/19 18:00 08/02/19 17:59 07/29/19 05:38 Yasmany Martin MD Jul 29, 2019 09:42
[2019-07-29] MEDS: oxyCONTIN 20mg tab ORAL SCH ×2 (10:16→22:07)
--- NOTE | 2019-07-29 11:25 | NUR ---
NURSE NOTES: Vancomycin trough blood specimen obtained via right upper chest micehlet-cath at 1110, RN sent down to lab (test tube labeled/in biohazard bag)
[2019-07-29] MEDS ORDERED: D5 1/2NS 1000ml IV ONE (13:58)
--- NOTE | 2019-07-29 15:46 | Internal Med Progress Note ---
Subjective Date of Service: Jul 29, 2019 Physician Name Edilson Rubalcava Attending Physician Jersey Bearden MD Current Medications Medications (Trade) Dose Ordered Sig/Arianne Route PRN Reason Start Time Stop Time Status Last Admin Dose Admin Acetaminophen (Tylenol) 650 mg Q6H PRN ORAL Mild Pain/Temp > 100.5 07/15/19 18:15 08/14/19 18:14 Albuterol Sulfate (Proventil MDI) 2 puff Q4H PRN INH Shortness of Breath 07/15/19 18:30 08/14/19 18:29 Aspirin (ASA) 81 mg DAILY ORAL 07/16/19 09:00 08/15/19 08:59 07/29/19 09:20 Chlorhexidine Gluconate (Jihan-Hex 2%) 1 applic DAILY@2000 TOPIC 07/18/19 20:00 08/17/19 19:59 07/28/19 21:35 Dextrose/Sodium Chloride 1,000 ml @ 100 mls/hr Q10H IV 07/15/19 18:15 08/14/19 18:14 07/29/19 05:38 Diphenhydramine HCl (Benadryl) 50 mg Q4H PRN IVP Itching 07/15/19 18:15 08/14/19 18:14 07/29/19 13:23 Folic Acid (Folate) 1 mg DAILY ORAL 07/16/19 09:00 08/15/19 08:59 07/29/19 09:20 Heparin Sodium (Porcine) (Heparin 5000 units/ml) 5,000 units EVERY 8 HOURS SUBQ 07/15/19 22:00 08/14/19 21:59 07/29/19 13:25 Hydromorphone HCl (Dilaudid) 2 mg Q2H PRN IVP breakthrough pain 07/22/19 20:15 07/29/19 20:14 07/29/19 15:33 Ondansetron HCl (Zofran) 4 mg Q4H PRN IVP Nausea & Vomiting 07/15/19 18:15 08/14/19 18:14 Oxycodone HCl (OxyCONTIN) 20 mg Q12HR ORAL 07/25/19 21:00 08/01/19 20:59 07/29/19 10:16 Vancomycin HCl (Vanco rx to dose) 1 ea DAILY PRN MISC Per rx protocol 07/25/19 18:30 08/24/19 18:29 Vancomycin/Sodium Chloride 275 ml @ 137.5 mls/ hr Q6H IVPB 07/28/19 18:00 08/02/19 17:59 07/29/19 12:11 Allergies: Coded Allergies: CAPSAICIN (Verified Allergy, Unknown, 11/23/18) CEFTRIAXONE (Verified Allergy, Unknown, 11/23/18) IOPAMIDOL (Unverified Allergy, Unknown, 01/01/19) Uncoded Allergies: IV CONTRAST (Allergy, Unknown, 01/01/19) CONTRAST (Adverse Reaction, Severe, Rash, 06/23/16) RADIOCONTRAST - RASH, ITCHING ROS Limited/Unobtainable: No Constitutional: Reports: no symptoms HEENT: Reports: no symptoms Cardiovascular: Reports: no symptoms Respiratory: Reports: no symptoms Gastrointestinal/Abdominal: Reports: no symptoms Genitourinary: Reports: no symptoms Neurologic/Psychiatric: Reports: no symptoms Subjective 23 YO M admitted with sickle cell crisis. Cover for [facility] Med-Dr Bearden. Objective Last Vital Signs Date Time Temp Pulse Resp B/P (MAP) Pulse Ox O2 Delivery O2 Flow Rate FiO2 07/29/19 12:00 99.0 71 18 125/80 (95) 98 07/29/19 09:00 Room Air 07/29/19 08:39 21 07/26/19 19:01 2.0 Laboratory Tests Test 07/29/19 05:13 07/29/19 11:10 White Blood Count 13.8 K/UL (4.8-10.8) H Red Blood Count 3.46 M/UL (4.70-6.10) L Hemoglobin 8.7 G/DL (14.2-18.0) L Hematocrit 27.2 % (42.0-52.0) L Mean Corpuscular Volume 79 FL (80-99) L Mean Corpuscular Hemoglobin 25.2 PG (27.0-31.0) L Mean Corpuscular Hemoglobin Concent 32.0 G/DL (32.0-36.0) Red Cell Distribution Width 18.8 % (11.6-14.8) H Platelet Count 417 K/UL (150-450) Mean Platelet Volume 6.0 FL (6.5-10.1) L Neutrophils (%) (Auto) 47.3 % (45.0-75.0) Lymphocytes (%) (Auto) 37.0 % (20.0-45.0) Monocytes (%) (Auto) 10.3 % (1.0-10.0) H Eosinophils (%) (Auto) 4.0 % (0.0-3.0) H Basophils (%) (Auto) 1.3 % (0.0-2.0) Sodium Level 139 MMOL/L (136-145) Potassium Level 4.1 MMOL/L (3.5-5.1) Chloride Level 103 MMOL/L (98-107) Carbon Dioxide Level 29 MMOL/L (21-32) Anion Gap 7 mmol/L (5-15) Blood Urea Nitrogen 6 mg/dL (7-18) L Creatinine 0.5 MG/DL (0.55-1.30) L Estimat Glomerular Filtration Rate > 60 mL/min (>60) Glucose Level 94 MG/DL (74-106) Calcium Level 8.8 MG/DL (8.5-10.1) Vancomycin Level Trough 16.4 ug/mL (5.0-12.0) H Microbiology Date/Time Source Procedure Growth Status 07/26/19 16:08 Blood Blood Culture - Preliminary NO GROWTH AFTER 48 HOURS Resulted 07/26/19 16:04 Blood Blood Culture - Preliminary NO GROWTH AFTER 48 HOURS Resulted Intake and Output 07/28/19 07/29/19 19:00 07:00 Intake Total 100 ml 1075.0 ml Output Total 1000 ml 1300 ml Balance -900 ml -225.0 ml IV Total 100 ml 1075.0 ml Output Urine Total 1000 ml 1300 ml Objective General Appearance: WD/WN, alert, mild distress EENT: PERRL/EOMI, normal ENT inspection, pharynx normal Neck: non-tender, normal alignment, supple, normal inspection Cardiovascular: normal peripheral pulses, normal rate, regular rhythm, no gallop/murmur, no JVD Respiratory/Chest: chest wall non-tender, lungs clear, normal breath sounds, no respiratory distress, no accessory muscle use Abdomen: normal bowel sounds, non tender, soft, no organomegaly, no mass Extremities: normal range of motion, non-tender 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 Pain management - oral and IV (5) Leukocytosis Assessment & Plan: Worsening. ?reactive? Follow CBC (6) Sickle cell crisis (7) Fever Assessment & Plan: Low grade. Port a cath right chest. Blood culture = no growth. CXR=normal. ID consult=Dr. Martin. Continue Edilson Mendoza MD Jul 29, 2019 15:46
--- NOTE | 2019-07-29 17:03 | NUR ---
NURSE NOTES: Reviewed updated Oxycontin 20mg TID schedule (0600 1400 2200), patient verbalized understanding. Aware next dose due at 2200.
--- NOTE | 2019-07-29 19:30 | NUR ---
HAND-OFF: Report given to Klaus SORENSEN. Endorsed time of next Dilaudid PRN dose due and updated Oxycontin schedule.
--- NOTE | 2019-07-29 19:35 | NUR ---
NURSE NOTES: Received patient awake, alert, verbal, sitting in a chair watching television.
[2019-07-29] MEDS: Dyna-Hex 2% Top Sol 2oz TOPIC SCH (19:43)
[2019-07-30] MEDS: Vancomycin 1.5gm/NS Premix IVPB SCH ×4 (00:06→18:01)
[2019-07-30] MEDS: DiphenhydrAMINE 50mg/ml Inj IVP PRN ×5 (02:10→19:56)
[2019-07-30 04:00] VITALS: BP 139/84
[2019-07-30] MEDS: Heparin 5000 units/ml inj SUBQ SCH ×3 (06:00→21:18)
[2019-07-30] MEDS: oxyCONTIN 20mg tab ORAL SCH ×3 (06:13→22:32)
[2019-07-30 06:32] LABS: HEMATOCRIT 27.4 % (42.0-52.0); HEMOGLOBIN 8.8 G/DL (14.2-18.0); MEAN CORPUSCULAR VOLUME 79 FL (80-99); PLATELET COUNT 434 K/UL (150-450); RED BLOOD COUNT 3.49 M/UL (4.70-6.10); RED CELL DISTRIBUTION WIDTH 17.9 % (11.6-14.8); WHITE BLOOD COUNT 19.2 K/UL (4.8-10.8)
[2019-07-30 07:04] LABS: ANION GAP 9 mmol/L (5-15); BLOOD UREA NITROGEN 6 mg/dL (7-18); CALCIUM 8.6 MG/DL (8.5-10.1); CARBON DIOXIDE 28 MMOL/L (21-32); CHLORIDE 101 MMOL/L (98-107); CREATININE 0.6 MG/DL (0.55-1.30); SODIUM 138 MMOL/L (136-145)
--- NOTE | 2019-07-30 07:24 | NUR ---
HAND-OFF: Report given to EDU Nolan.
[2019-07-30 08:00] VITALS: BP 136/82
--- NOTE | 2019-07-30 08:00 | NUR ---
NURSE NOTES: Received report from Abi SORENSEN pt a/a/o x4 laying in bed with no signs of distress or other issues at this time. portacath in the right chest running D51/2NS@100ml. per report pt has been getting Dilaudid Q@H around the clock. call light within reach bed in lowest position. side rales up x2. I will f/u as needed.
[2019-07-30] MEDS: Aspirin Baby 81mg ORAL SCH (08:27)
[2019-07-30] MEDS: D5 1/2NS 1,000 ML IV SCH ×2 (08:28→18:15)
--- NOTE | 2019-07-30 09:36 | NUR ---
CASE MANAGEMENT:REVIEW 07/28/19 SI: SICKLE CELL DISEASE. LEUKOCYTOSIS 98.1 66 20 118/53 98% ON RA IS: IVF D5@100/HR IV VANCOMYCIN Q6HRS OXYCONTIN PO Q8HR IV DILAUDID Q2HRS PRN HEPARIN SQ Q8HR- PATIENT REFUSING SOME DOSES ASA PO QD : MED/SURG STATUS 3 EAST PLAN: PENDING BLOOD CULTURES -NO GROWTH AFTER 72HR RIGHT COTY CATH CASE MANAGEMENT:REVIEW 07/29/19 SI: SICKLE CELL DISEASE. LEUKOCYTOSIS 99.5 88 18 115/79 97% ON RA WBC 13.8 H/H 8.7/27.2 BUN 6 CREAT 0.5 IS: IVF D5@100/HR IV VANCOMYCIN Q6HRS OXYCONTIN PO Q8HR IV DILAUDID Q2HRS PRN HEPARIN SQ Q8HR- PATIENT REFUSING SOME DOSES ASA PO QD : MED/SURG STATUS 3 EAST PLAN: PENDING BLOOD CULTURES -NO GROWTH AFTER 72HR CASE MANAGEMENT:REVIEW 07/30/19 SI: SICKLE CELL DISEASE. LEUKOCYTOSIS 99.3 97 20 139/84 96% ON RA WBC 19.2 H/H 8.8/27.4 BUN 6 IS: IVF D5@100/HR IV VANCOMYCIN Q6HRS OXYCONTIN PO Q8HR IV DILAUDID Q2HRS PRN HEPARIN SQ Q8HR- PATIENT REFUSING SOME DOSES ASA PO QD : MED/SURG STATUS 3 EAST PLAN: PENDING BLOOD CULTURES -NO GROWTH AFTER 72HR
--- NOTE | 2019-07-30 10:07 | Infectious Diseases Prog Note ---
Assessment/Plan Assessment/Plan 23 yo male with PMHx of Sickle cell disease, Beta thalassemia, Asthma and Avascular necrosis of left hip pain who presented to the ED on 07/18/19 with sickle cell crisis. Leukocytosis Most likely secondary to sickle cell f/u Blood Cx 07/24/19 and 07/26/19 to r/o bacteremia - NGTD Afebrile Sickle cell disease Beta thalassemia Asthma Avascular necrosis of left hip pain PLAN - f/u repeat Blood Cx - Continue Vancomycin #/ - pending Cx - monitor CBC and Temps Thank you for this consult. [facility] will continue to follow the patient with you during this hospitalization. Subjective Allergies: Coded Allergies: CAPSAICIN (Verified Allergy, Unknown, 11/23/18) CEFTRIAXONE (Verified Allergy, Unknown, 11/23/18) IOPAMIDOL (Unverified Allergy, Unknown, 01/01/19) Uncoded Allergies: IV CONTRAST (Allergy, Unknown, 01/01/19) CONTRAST (Adverse Reaction, Severe, Rash, 06/23/16) RADIOCONTRAST - RASH, ITCHING Subjective Patient with continued pain Afebrile Leukocytosis back up to 19 Objective Vital Signs Last 24 Hour Vital Signs Date Time Temp Pulse Resp B/P (MAP) Pulse Ox O2 Delivery O2 Flow Rate FiO2 07/30/19 06:43 98.8 07/30/19 06:43 98.8 07/30/19 04:00 99.3 97 20 139/84 (102) 96 07/29/19 23:49 98.8 89 18 131/81 (98) 98 07/29/19 21:06 Room Air 07/29/19 20:26 99.5 88 18 115/79 (91) 97 07/29/19 20:15 99.5 07/29/19 19:59 97 Room Air 21 07/29/19 19:59 82 18 97 Room Air 21 07/29/19 16:00 99.0 78 18 120/82 (95) 99 07/29/19 12:00 99.0 71 18 125/80 (95) 98 Height (Feet): 5 Height (Inches): 6.00 Weight (Pounds): 264 Objective Gen: In some pain HEENT: NCAT, MMM, EOMI LUNGS: CTAB, No W/C, right chest michelet cath ( No E/P) CARDS: RRR, S1, S2 ABD: Soft, NT, ND Laboratory Tests Test 07/29/19 11:10 07/30/19 04:30 Vancomycin Level Trough 16.4 ug/mL (5.0-12.0) H White Blood Count 19.2 K/UL (4.8-10.8) H Red Blood Count 3.49 M/UL (4.70-6.10) L Hemoglobin 8.8 G/DL (14.2-18.0) L Hematocrit 27.4 % (42.0-52.0) L Mean Corpuscular Volume 79 FL (80-99) L Mean Corpuscular Hemoglobin 25.3 PG (27.0-31.0) L Mean Corpuscular Hemoglobin Concent 32.1 G/DL (32.0-36.0) Red Cell Distribution Width 17.9 % (11.6-14.8) H Platelet Count 434 K/UL (150-450) Mean Platelet Volume 5.6 FL (6.5-10.1) L Neutrophils (%) (Auto) % (45.0-75.0) Lymphocytes (%) (Auto) % (20.0-45.0) Monocytes (%) (Auto) % (1.0-10.0) Eosinophils (%) (Auto) % (0.0-3.0) Basophils (%) (Auto) % (0.0-2.0) Differential Total Cells Counted 100 Neutrophils % (Manual) 50 % (45-75) Lymphocytes % (Manual) 34 % (20-45) Monocytes % (Manual) 10 % (1-10) Eosinophils % (Manual) 4 % (0-3) H Basophils % (Manual) 1 % (0-2) Band Neutrophils 1 % (0-8) Nucleated Red Blood Cells 53 /100 WBC Platelet Estimate Adequate Platelet Morphology Normal Polychromasia 2+ Hypochromasia 2+ Anisocytosis 1+ Microcytosis 1+ Spherocytes 1+ Sodium Level 138 MMOL/L (136-145) Potassium Level 4.0 MMOL/L (3.5-5.1) Chloride Level 101 MMOL/L (98-107) Carbon Dioxide Level 28 MMOL/L (21-32) Anion Gap 9 mmol/L (5-15) Blood Urea Nitrogen 6 mg/dL (7-18) L Creatinine 0.6 MG/DL (0.55-1.30) Estimat Glomerular Filtration Rate > 60 mL/min (>60) Glucose Level 100 MG/DL (74-106) Calcium Level 8.6 MG/DL (8.5-10.1) Current Medications Medications (Trade) Dose Ordered Sig/Arianne Route PRN Reason Start Time Stop Time Status Last Admin Dose Admin Acetaminophen (Tylenol) 650 mg Q6H PRN ORAL Mild Pain/Temp > 100.5 07/15/19 18:15 08/14/19 18:14 Albuterol Sulfate (Proventil MDI) 2 puff Q4H PRN INH Shortness of Breath 07/15/19 18:30 08/14/19 18:29 Aspirin (ASA) 81 mg DAILY ORAL 07/16/19 09:00 08/15/19 08:59 07/30/19 08:27 Chlorhexidine Gluconate (Jihan-Hex 2%) 1 applic DAILY@2000 TOPIC 07/18/19 20:00 08/17/19 19:59 07/29/19 19:43 Dextrose/Sodium Chloride 1,000 ml @ 100 mls/hr Q10H IV 07/15/19 18:15 08/14/19 18:14 07/30/19 08:28 Diphenhydramine HCl (Benadryl) 50 mg Q4H PRN IVP Itching 07/15/19 18:15 08/14/19 18:14 07/30/19 06:13 Folic Acid (Folate) 1 mg DAILY ORAL 07/16/19 09:00 08/15/19 08:59 07/30/19 08:27 Heparin Sodium (Porcine) (Heparin 5000 units/ml) 5,000 units EVERY 8 HOURS SUBQ 07/15/19 22:00 08/14/19 21:59 07/29/19 13:25 Hydromorphone HCl (Dilaudid) 2 mg Q2H PRN IVP Severe Breakthrough Pain 07/29/19 21:45 08/05/19 21:44 07/30/19 08:27 Ondansetron HCl (Zofran) 4 mg Q4H PRN IVP Nausea & Vomiting 07/15/19 18:15 08/14/19 18:14 Oxycodone HCl (OxyCONTIN) 20 mg EVERY 8 HOURS ORAL 07/29/19 22:00 08/01/19 20:59 07/30/19 06:13 Vancomycin HCl (Vanco rx to dose) 1 ea DAILY PRN MISC Per rx protocol 07/25/19 18:30 08/24/19 18:29 Vancomycin/Sodium Chloride 275 ml @ 137.5 mls/ hr Q6H IVPB 07/28/19 18:00 08/02/19 17:59 07/30/19 06:13 Yasmany Martin MD Jul 30, 2019 10:07
[2019-07-30 12:00] VITALS: BP 150/73
--- NOTE | 2019-07-30 13:16 | Internal Med Progress Note ---
Subjective Date of Service: Jul 30, 2019 Physician Name Edilson Rubalcava Attending Physician Jersey Bearden MD Current Medications Medications (Trade) Dose Ordered Sig/Arianne Route PRN Reason Start Time Stop Time Status Last Admin Dose Admin Acetaminophen (Tylenol) 650 mg Q6H PRN ORAL Mild Pain/Temp > 100.5 07/15/19 18:15 08/14/19 18:14 Albuterol Sulfate (Proventil MDI) 2 puff Q4H PRN INH Shortness of Breath 07/15/19 18:30 08/14/19 18:29 Aspirin (ASA) 81 mg DAILY ORAL 07/16/19 09:00 08/15/19 08:59 07/30/19 08:27 Chlorhexidine Gluconate (Jihan-Hex 2%) 1 applic DAILY@2000 TOPIC 07/18/19 20:00 08/17/19 19:59 07/29/19 19:43 Dextrose/Sodium Chloride 1,000 ml @ 100 mls/hr Q10H IV 07/15/19 18:15 08/14/19 18:14 07/30/19 08:28 Diphenhydramine HCl (Benadryl) 50 mg Q4H PRN IVP Itching 07/15/19 18:15 08/14/19 18:14 07/30/19 10:44 Folic Acid (Folate) 1 mg DAILY ORAL 07/16/19 09:00 08/15/19 08:59 07/30/19 08:27 Heparin Sodium (Porcine) (Heparin 5000 units/ml) 5,000 units EVERY 8 HOURS SUBQ 07/15/19 22:00 08/14/19 21:59 07/29/19 13:25 Hydromorphone HCl (Dilaudid) 2 mg Q2H PRN IVP Severe Breakthrough Pain 07/29/19 21:45 08/05/19 21:44 07/30/19 12:54 Ondansetron HCl (Zofran) 4 mg Q4H PRN IVP Nausea & Vomiting 07/15/19 18:15 08/14/19 18:14 Oxycodone HCl (OxyCONTIN) 20 mg EVERY 8 HOURS ORAL 07/29/19 22:00 08/01/19 20:59 07/30/19 06:13 Vancomycin HCl (Vanco rx to dose) 1 ea DAILY PRN MISC Per rx protocol 07/25/19 18:30 08/24/19 18:29 Vancomycin/Sodium Chloride 275 ml @ 137.5 mls/ hr Q6H IVPB 07/28/19 18:00 08/02/19 17:59 07/30/19 12:55 Allergies: Coded Allergies: CAPSAICIN (Verified Allergy, Unknown, 11/23/18) CEFTRIAXONE (Verified Allergy, Unknown, 11/23/18) IOPAMIDOL (Unverified Allergy, Unknown, 01/01/19) Uncoded Allergies: IV CONTRAST (Allergy, Unknown, 01/01/19) CONTRAST (Adverse Reaction, Severe, Rash, 06/23/16) RADIOCONTRAST - RASH, ITCHING ROS Limited/Unobtainable: No Constitutional: Reports: no symptoms HEENT: Reports: no symptoms Cardiovascular: Reports: no symptoms Respiratory: Reports: no symptoms Gastrointestinal/Abdominal: Reports: no symptoms Genitourinary: Reports: no symptoms Neurologic/Psychiatric: Reports: no symptoms Subjective 23 YO M admitted with sickle cell crisis. Cover for [facility] Med-Dr Bearden. Objective Last Vital Signs Date Time Temp Pulse Resp B/P (MAP) Pulse Ox O2 Delivery O2 Flow Rate FiO2 07/30/19 12:00 98.6 67 18 150/73 (98) 98 07/30/19 09:00 Room Air 07/29/19 19:59 21 07/26/19 19:01 2.0 Laboratory Tests Test 07/30/19 04:30 White Blood Count 19.2 K/UL (4.8-10.8) H Red Blood Count 3.49 M/UL (4.70-6.10) L Hemoglobin 8.8 G/DL (14.2-18.0) L Hematocrit 27.4 % (42.0-52.0) L Mean Corpuscular Volume 79 FL (80-99) L Mean Corpuscular Hemoglobin 25.3 PG (27.0-31.0) L Mean Corpuscular Hemoglobin Concent 32.1 G/DL (32.0-36.0) Red Cell Distribution Width 17.9 % (11.6-14.8) H Platelet Count 434 K/UL (150-450) Mean Platelet Volume 5.6 FL (6.5-10.1) L Neutrophils (%) (Auto) % (45.0-75.0) Lymphocytes (%) (Auto) % (20.0-45.0) Monocytes (%) (Auto) % (1.0-10.0) Eosinophils (%) (Auto) % (0.0-3.0) Basophils (%) (Auto) % (0.0-2.0) Differential Total Cells Counted 100 Neutrophils % (Manual) 50 % (45-75) Lymphocytes % (Manual) 34 % (20-45) Monocytes % (Manual) 10 % (1-10) Eosinophils % (Manual) 4 % (0-3) H Basophils % (Manual) 1 % (0-2) Band Neutrophils 1 % (0-8) Nucleated Red Blood Cells 53 /100 WBC Platelet Estimate Adequate Platelet Morphology Normal Polychromasia 2+ Hypochromasia 2+ Anisocytosis 1+ Microcytosis 1+ Spherocytes 1+ Sodium Level 138 MMOL/L (136-145) Potassium Level 4.0 MMOL/L (3.5-5.1) Chloride Level 101 MMOL/L (98-107) Carbon Dioxide Level 28 MMOL/L (21-32) Anion Gap 9 mmol/L (5-15) Blood Urea Nitrogen 6 mg/dL (7-18) L Creatinine 0.6 MG/DL (0.55-1.30) Estimat Glomerular Filtration Rate > 60 mL/min (>60) Glucose Level 100 MG/DL (74-106) Calcium Level 8.6 MG/DL (8.5-10.1) Intake and Output 07/29/19 07/30/19 18:59 06:59 Intake Total 1515 ml 2130.0 ml Output Total 2025 ml Balance -510 ml 2130.0 ml Intake Oral 815 ml 780 ml IV Total 700 ml 1350.0 ml Output Urine Total 2025 ml # Voids 4 # Bowel Movements 2 Objective General Appearance: WD/WN, alert, mild distress EENT: PERRL/EOMI, normal ENT inspection, pharynx normal Neck: non-tender, normal alignment, supple, normal inspection Cardiovascular: normal peripheral pulses, normal rate, regular rhythm, no gallop/murmur, no JVD Respiratory/Chest: chest wall non-tender, lungs clear, normal breath sounds, no respiratory distress, no accessory muscle use Abdomen: normal bowel sounds, non tender, soft, no organomegaly, no mass Extremities: normal range of motion, non-tender 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 Pain management - oral and IV (5) Leukocytosis Assessment & Plan: Worsening. ?reactive? Follow CBC (6) Sickle cell crisis (7) Fever Assessment & Plan: Low grade. Port a cath right chest. Blood culture = no growth. CXR=normal. ID consult=Dr. Martin. Continue vanco Day #6/7 per ID Assessment/Plan Discharge planning Edilson Rubalcava MD Jul 30, 2019 13:16
[2019-07-30 16:00] VITALS: BP 110/74
--- NOTE | 2019-07-30 19:13 | NUR ---
HAND-OFF: Report given to Rocío RN, pt in stable condition. Alfaro cath output: 1350ml
--- NOTE | 2019-07-30 19:29 | NUR ---
NURSE NOTES: Patient awake in bed using his cellphone. No complaint of severe pain at this time. Will medicate as needed. Instructed patient to use call light for assistance. Call light in reach. Bed in lowest and locked engaged. Will continue to monitor.
--- NOTE | 2019-07-30 19:46 | NUR ---
HAND-OFF: Report given to Rocío SORENSEN. pt instable condition. - During my shift pt requested Dilaudid and Benadryl Q2h around the clock. patient even puts an alarm when medication is due. - Urine output: 1200ml
[2019-07-30 20:00] VITALS: BP 128/78
[2019-07-30] MEDS: Dyna-Hex 2% Top Sol 2oz TOPIC SCH (20:00)
[2019-07-31] VITALS: BP 112/70
[2019-07-31] MEDS: DiphenhydrAMINE 50mg/ml Inj IVP PRN ×4 (00:03→12:27)
[2019-07-31] MEDS: Vancomycin 1.5gm/NS Premix IVPB SCH ×3 (00:10→11:23)
[2019-07-31 04:00] VITALS: BP 130/76
[2019-07-31] MEDS: D5 1/2NS 1,000 ML IV SCH ×2 (04:03→14:02)
[2019-07-31] MEDS: Heparin 5000 units/ml inj SUBQ SCH ×2 (05:37→14:00)
[2019-07-31 06:15] LABS: BASOPHILS % (AUTO) 2.4 % (0.0-2.0); EOSINOPHILS % (AUTO) 3.2 % (0.0-3.0); HEMATOCRIT 25.5 % (42.0-52.0); HEMOGLOBIN 8.1 G/DL (14.2-18.0); LYMPHOCYTES % (AUTO) 47.4 % (20.0-45.0); MEAN CORPUSCULAR VOLUME 78 FL (80-99); MONOCYTES % (AUTO) 7.1 % (1.0-10.0); NEUTROPHILS % (AUTO) 39.9 % (45.0-75.0); PLATELET COUNT 432 K/UL (150-450); RED BLOOD COUNT 3.28 M/UL (4.70-6.10); RED CELL DISTRIBUTION WIDTH 17.3 % (11.6-14.8); WHITE BLOOD COUNT 16.1 K/UL (4.8-10.8)
[2019-07-31 06:29] LABS: ANION GAP 6 mmol/L (5-15); BLOOD UREA NITROGEN 5 mg/dL (7-18); CALCIUM 8.6 MG/DL (8.5-10.1); CARBON DIOXIDE 29 MMOL/L (21-32); CHLORIDE 103 MMOL/L (98-107); CREATININE 0.6 MG/DL (0.55-1.30); SODIUM 138 MMOL/L (136-145)
[2019-07-31] MEDS: oxyCONTIN 20mg tab ORAL SCH ×2 (06:31→14:01)
--- NOTE | 2019-07-31 07:17 | NUR ---
HAND-OFF: Report given to EDU Lobo.
--- NOTE | 2019-07-31 07:30 | NUR ---
NURSE NOTES: MIR. PAIN SCALE 8/10. IN NO ACUTE DISTRESS.
[2019-07-31 08:00] VITALS: BP 131/82
[2019-07-31] MEDS: Aspirin Baby 81mg ORAL SCH (08:29)
--- NOTE | 2019-07-31 10:25 | Infectious Diseases Prog Note ---
Assessment/Plan Assessment/Plan 23 yo male with PMHx of Sickle cell disease, Beta thalassemia, Asthma and Avascular necrosis of left hip pain who presented to the ED on 07/18/19 with sickle cell crisis. Leukocytosis Most likely secondary to sickle cell f/u Blood Cx 07/24/19 and 07/26/19 to r/o bacteremia - Neg Afebrile Sickle cell disease Beta thalassemia Asthma Avascular necrosis of left hip pain PLAN D/C abx as there is no sign of active infection Ok to D/C from an ID perspective - 07/31/19 SP Vancomycin #7 - monitor CBC and Temps Thank you for this consult. [facility] will continue to follow the patient with you during this hospitalization. Subjective Allergies: Coded Allergies: CAPSAICIN (Verified Allergy, Unknown, 11/23/18) CEFTRIAXONE (Verified Allergy, Unknown, 11/23/18) IOPAMIDOL (Unverified Allergy, Unknown, 01/01/19) Uncoded Allergies: IV CONTRAST (Allergy, Unknown, 01/01/19) CONTRAST (Adverse Reaction, Severe, Rash, 06/23/16) RADIOCONTRAST - RASH, ITCHING Subjective Patient with continued pain Afebrile Leukocytosis back down to 16 Objective Vital Signs Last 24 Hour Vital Signs Date Time Temp Pulse Resp B/P (MAP) Pulse Ox O2 Delivery O2 Flow Rate FiO2 07/31/19 08:39 Room Air 07/31/19 08:35 98.0 07/31/19 08:15 98 Room Air 21 07/31/19 08:13 67 20 98 Room Air 21 07/31/19 08:00 98.9 84 16 131/82 (98) 98 07/31/19 04:00 98.0 63 19 130/76 (94) 95 07/31/19 00:00 98.3 76 18 112/70 (84) 94 07/30/19 20:48 Room Air 07/30/19 20:00 98.9 80 19 128/78 (95) 95 07/30/19 20:00 95 Room Air 21 07/30/19 20:00 76 18 95 Room Air 21 07/30/19 16:00 97.6 68 20 110/74 (86) 99 07/30/19 15:08 98.6 07/30/19 12:00 98.6 67 18 150/73 (98) 98 Height (Feet): 5 Height (Inches): 6.00 Weight (Pounds): 264 Objective Gen: In some pain but better HEENT: NCAT, MMM, EOMI LUNGS: CTAB, No W/C, right chest michelet cath ( No E/P) CARDS: RRR, S1, S2 ABD: Soft, NT, ND Laboratory Tests Test 07/31/19 05:37 White Blood Count 16.1 K/UL (4.8-10.8) H Red Blood Count 3.28 M/UL (4.70-6.10) L Hemoglobin 8.1 G/DL (14.2-18.0) L Hematocrit 25.5 % (42.0-52.0) L Mean Corpuscular Volume 78 FL (80-99) L Mean Corpuscular Hemoglobin 24.8 PG (27.0-31.0) L Mean Corpuscular Hemoglobin Concent 31.8 G/DL (32.0-36.0) L Red Cell Distribution Width 17.3 % (11.6-14.8) H Platelet Count 432 K/UL (150-450) Mean Platelet Volume 6.2 FL (6.5-10.1) L Neutrophils (%) (Auto) 39.9 % (45.0-75.0) L Lymphocytes (%) (Auto) 47.4 % (20.0-45.0) H Monocytes (%) (Auto) 7.1 % (1.0-10.0) Eosinophils (%) (Auto) 3.2 % (0.0-3.0) H Basophils (%) (Auto) 2.4 % (0.0-2.0) H Sodium Level 138 MMOL/L (136-145) Potassium Level 4.0 MMOL/L (3.5-5.1) Chloride Level 103 MMOL/L (98-107) Carbon Dioxide Level 29 MMOL/L (21-32) Anion Gap 6 mmol/L (5-15) Blood Urea Nitrogen 5 mg/dL (7-18) L Creatinine 0.6 MG/DL (0.55-1.30) Estimat Glomerular Filtration Rate > 60 mL/min (>60) Glucose Level 127 MG/DL (74-106) H Calcium Level 8.6 MG/DL (8.5-10.1) Current Medications Medications (Trade) Dose Ordered Sig/Arianne Route PRN Reason Start Time Stop Time Status Last Admin Dose Admin Acetaminophen (Tylenol) 650 mg Q6H PRN ORAL Mild Pain/Temp > 100.5 07/15/19 18:15 08/14/19 18:14 Albuterol Sulfate (Proventil MDI) 2 puff Q4H PRN INH Shortness of Breath 07/15/19 18:30 08/14/19 18:29 Aspirin (ASA) 81 mg DAILY ORAL 07/16/19 09:00 08/15/19 08:59 07/31/19 08:29 Chlorhexidine Gluconate (Jihan-Hex 2%) 1 applic DAILY@2000 TOPIC 07/18/19 20:00 08/17/19 19:59 07/29/19 19:43 Dextrose/Sodium Chloride 1,000 ml @ 100 mls/hr Q10H IV 07/15/19 18:15 08/14/19 18:14 07/31/19 04:03 Diphenhydramine HCl (Benadryl) 50 mg Q4H PRN IVP Itching 07/15/19 18:15 08/14/19 18:14 07/31/19 08:04 Folic Acid (Folate) 1 mg DAILY ORAL 07/16/19 09:00 08/15/19 08:59 07/31/19 08:29 Heparin Sodium (Porcine) (Heparin 5000 units/ml) 5,000 units EVERY 8 HOURS SUBQ 07/15/19 22:00 08/14/19 21:59 07/30/19 14:38 Hydromorphone HCl (Dilaudid) 2 mg Q2H PRN IVP Severe Breakthrough Pain 07/29/19 21:45 08/05/19 21:44 07/31/19 08:05 Ondansetron HCl (Zofran) 4 mg Q4H PRN IVP Nausea & Vomiting 07/15/19 18:15 08/14/19 18:14 Oxycodone HCl (OxyCONTIN) 20 mg EVERY 8 HOURS ORAL 07/29/19 22:00 08/01/19 20:59 07/31/19 06:31 Vancomycin HCl (Vanco rx to dose) 1 ea DAILY PRN MISC Per rx protocol 07/25/19 18:30 08/24/19 18:29 Vancomycin/Sodium Chloride 275 ml @ 137.5 mls/ hr Q6H IVPB 07/28/19 18:00 08/02/19 17:59 07/31/19 05:37 Yasmany Martin MD Jul 31, 2019 10:25
[2019-07-31] MEDS ORDERED: D5 1/2NS 1000ml IV ONE ×2 (10:26→17:19)
--- NOTE | 2019-07-31 11:52 | NUR ---
CASE MANAGEMENT: REVIEW 07/31/19 SI: SICKLE CELL DISEASE LEUKOCYTOSIS 98.9 84 16 131/82 98% ON RA WBC 16.1 HGB 8.1 GLU 127 IS: IVF @100 MLS/HR IV VANCO Q6H IV DILAUDID Q2H OXYCONTIN PO Q8H HEPARIN SQ Q8H ASA QD MED-SURG 3 EAST PLAN~~~~~ MONITOR CBC AND TEMPS BLOOD CXS NO GROWTH AFTER 4 DAYS RIGHT PORT A CATH
[2019-07-31 12:00] VITALS: BP 134/75
--- NOTE | 2019-07-31 14:52 | Internal Med Progress Note ---
Subjective Physician Name Jersey Bearden Attending Physician Jersey Bearden MD Current Medications Medications (Trade) Dose Ordered Sig/Arianne Route PRN Reason Start Time Stop Time Status Last Admin Dose Admin Acetaminophen (Tylenol) 650 mg Q6H PRN ORAL Mild Pain/Temp > 100.5 07/15/19 18:15 08/14/19 18:14 Albuterol Sulfate (Proventil MDI) 2 puff Q4H PRN INH Shortness of Breath 07/15/19 18:30 08/14/19 18:29 Aspirin (ASA) 81 mg DAILY ORAL 07/16/19 09:00 08/15/19 08:59 07/31/19 08:29 Chlorhexidine Gluconate (Jihan-Hex 2%) 1 applic DAILY@2000 TOPIC 07/18/19 20:00 08/17/19 19:59 07/29/19 19:43 Dextrose/Sodium Chloride 1,000 ml @ 100 mls/hr Q10H IV 07/15/19 18:15 08/14/19 18:14 07/31/19 14:02 Diphenhydramine HCl (Benadryl) 50 mg Q4H PRN IVP Itching 07/15/19 18:15 08/14/19 18:14 07/31/19 12:27 Folic Acid (Folate) 1 mg DAILY ORAL 07/16/19 09:00 08/15/19 08:59 07/31/19 08:29 Heparin Sodium (Porcine) (Heparin 5000 units/ml) 5,000 units EVERY 8 HOURS SUBQ 07/15/19 22:00 08/14/19 21:59 07/30/19 14:38 Ondansetron HCl (Zofran) 4 mg Q4H PRN IVP Nausea & Vomiting 07/15/19 18:15 08/14/19 18:14 Oxycodone HCl (OxyCONTIN) 20 mg EVERY 8 HOURS ORAL 07/29/19 22:00 08/01/19 20:59 07/31/19 14:01 Vancomycin HCl (Vanco rx to dose) 1 ea DAILY PRN MISC Per rx protocol 07/25/19 18:30 08/24/19 18:29 Vancomycin/Sodium Chloride 275 ml @ 137.5 mls/ hr Q6H IVPB 07/28/19 18:00 08/02/19 17:59 07/31/19 11:23 Allergies: Coded Allergies: CAPSAICIN (Verified Allergy, Unknown, 11/23/18) CEFTRIAXONE (Verified Allergy, Unknown, 11/23/18) IOPAMIDOL (Unverified Allergy, Unknown, 01/01/19) Uncoded Allergies: IV CONTRAST (Allergy, Unknown, 01/01/19) CONTRAST (Adverse Reaction, Severe, Rash, 06/23/16) RADIOCONTRAST - RASH, ITCHING Subjective awake, alert, responsive, NO SOB, still C/O Chest wall pain. Objective Last Vital Signs Date Time Temp Pulse Resp B/P (MAP) Pulse Ox O2 Delivery O2 Flow Rate FiO2 07/31/19 14:35 98.0 07/31/19 12:00 75 15 134/75 (94) 98 07/31/19 08:39 Room Air 07/31/19 08:15 21 07/26/19 19:01 2.0 Laboratory Tests Test 07/31/19 05:37 White Blood Count 16.1 K/UL (4.8-10.8) H Red Blood Count 3.28 M/UL (4.70-6.10) L Hemoglobin 8.1 G/DL (14.2-18.0) L Hematocrit 25.5 % (42.0-52.0) L Mean Corpuscular Volume 78 FL (80-99) L Mean Corpuscular Hemoglobin 24.8 PG (27.0-31.0) L Mean Corpuscular Hemoglobin Concent 31.8 G/DL (32.0-36.0) L Red Cell Distribution Width 17.3 % (11.6-14.8) H Platelet Count 432 K/UL (150-450) Mean Platelet Volume 6.2 FL (6.5-10.1) L Neutrophils (%) (Auto) 39.9 % (45.0-75.0) L Lymphocytes (%) (Auto) 47.4 % (20.0-45.0) H Monocytes (%) (Auto) 7.1 % (1.0-10.0) Eosinophils (%) (Auto) 3.2 % (0.0-3.0) H Basophils (%) (Auto) 2.4 % (0.0-2.0) H Sodium Level 138 MMOL/L (136-145) Potassium Level 4.0 MMOL/L (3.5-5.1) Chloride Level 103 MMOL/L (98-107) Carbon Dioxide Level 29 MMOL/L (21-32) Anion Gap 6 mmol/L (5-15) Blood Urea Nitrogen 5 mg/dL (7-18) L Creatinine 0.6 MG/DL (0.55-1.30) Estimat Glomerular Filtration Rate > 60 mL/min (>60) Glucose Level 127 MG/DL (74-106) H Calcium Level 8.6 MG/DL (8.5-10.1) Intake and Output 07/30/19 07/31/19 19:00 07:00 Intake Total 2072 ml 1650.0 ml Output Total 1400 ml 2700 ml Balance 672 ml -1050.0 ml Intake Oral 972 ml 1000 ml IV Total 1100 ml 650.0 ml Output Urine Total 1400 ml 2700 ml # Voids 3 # Bowel Movements 1 Objective General: No acute distress, awake and alert HEENT: NCAT, sclera anicteric, PERRL, EOMI. Neck: Supple, no significant jugular venous distention, Lungs: Good inspiratory effort, clear to auscultation bilaterally, no Wheeze or Rales. Chest wall: Right side PASport. Heart: Regular rate and rhythm, normal S1/S2, no murmurs Abdomen: soft, nontender, nondistended. Normoactive bowel sounds, morbid Obesity. / Rectal: Refused and deferred. Extremities: No Cyanosis , clubbing or edema. Neuro: A&O x 3, Able to move all extremities Skin: warm, no rashes or lesions Psych: Normal mood and affect Assessment/Plan Assessment/Plan (1) Avascular necrosis of bone of left hip (2) Asthma (3) Beta thalassemia major (4) Sickle cell disease Assessment & Plan: IV fluids. Pain management - oral and IV (5) Leukocytosis (6) Sickle cell crisis Plan of Care: Antibiotics: Off Follow-up with repeat cultures and laboratory. VQ scan, CT chest without contrast, Patient has contrast allergy DC home in AM . Jersey Bearden MD Jul 31, 2019 14:52
--- NOTE | 2019-07-31 15:49 | Diagnostic Imaging Report ---
Indication: Chest pain Technique: Continuous helical transaxial imaging of the chest was obtained from the thoracic inlet to the upper abdomen. No intravenous contrast was administered. Coronal 2-D reformats were also obtained. Total Dose length Product (DLP): 2114.[address] Dose Index Volume (CTDIvol): 45.8 mGy Comparison: 05/10/2016 Findings: Lungs are essentially clear. There is minimal posterior basal atelectasis. No adenopathy appreciated within the mediastinum or pulmonary christel. No pleural or pericardial fluid identified. There is a right chest port noted in good position. The heart is unremarkable. Spleen is absent. The visualized upper abdomen is otherwise unremarkable. IMPRESSION: No acute disease. Chest port Nonidentification of the spleen The CT scanner at [facility] is accredited by the [employer] and the scans are performed using dose optimization techniques as appropriate to a performed exam including Automatic Exposure control.
[2019-07-31 15:58] VITALS: BP 127/73
--- NOTE | 2019-07-31 17:09 | NUR ---
Regarding V/Q Scan: Confirmed with viscose cellar charge hand Danny, Pt refused VQ Scan.
--- NOTE | 2019-07-31 17:23 | NUR ---
NURSE NOTES: discharge home via uber in stable condition. dc instructions given.
--- NOTE | 2019-08-01 10:37 | Discharge Summary ---
Discharge Summary Discharge Summary _ DATE OF ADMISSION: 07/15/2019 DATE OF DISCHARGE: 07/31/2019 DISCHARGED BY: Dr. Bearden REASON FOR ADMISSION: 23 years old male with past medical history of sickle cell disease, beta thalassemia, asthma, avascular necrosis of left hip, presented to emergency department with chief complaint of bilateral leg pain. Patient had frequent admissions for sickle cell crisis. Patient reported that his pain was not controlled with current analgesic at home , and he came to emergency room for further evaluation and management. Patient denied chest pain or shortness of breath. Patient denied fever or chills. Patient had a history of splenectomy in the past. Upon evaluation vital signs were stable, pulse extremity with 95% on room air. Laboratory work-up revealed leukocytosis WBC 14.3, hemoglobin 10.5, hematocrit 34.7 , platelet count 431. Stable electrolytes and renal parameters. Total bilirubin 1.9 , direct bilirubin 0.58. AST 42 ,ALT 45. Troponin negative. Chest x-ray revealed bibasilar lung atelectasis. Mild perihilar interstitial thickening, may be edema or pneumonitis. Patient started on the IV fluids , received analgesics and admitted for further management. CONSULTANTS: ID specialist Dr. Martin [facility]RSE: Patient admitted to medical surgical floor. Patient continued on a generous IV hydration. Supplemental oxygen provided and titrated to keep pulse oximetry above 92%. Pulmonary toilet with bronchodilator provided as needed. No evidence of acute asthma exacerbation. Pain management was addressed with intravenous analgesics. Hydroxyurea and folic acid continued. Infectious disease consult was requested due to leukocytosis. Patient initially started on empiric antibiotics with close monitoring of WBC and temperature. Patient remained afebrile. leukocytosis continued, most likely secondary to sickle cell crisis. Blood culture drawn on 07/24 and 07/26 were both negative. Patient continued to have leukocytosis, but remained afebrile. Antibiotic discontinued as per ID specialist. Pain management was addressed as needed , and pain was eventually controlled. DVT prophylaxis provided. CT of the chest revealed no acute disease. Hemoglobin and hematocrit were closely monitored with goal to keep hemoglobin above 7. Prior to discharge hemoglobin 8.1 , hematocrit 25.5. Bilirubin slowly trending down: total bilirubin from 1.9 down to 1.6 , and direct bilirubin from 0.5 down to 0.4. AST down to normal , ALT remained normal. Patient subsequently was discharged home . Follow-up with fluid power mechanic in 1 week. FINAL DIAGNOSES: Sickle cell crisis Sickle cell disease Beta thalassemia Asthma Avascular necrosis of the hip Leukocytosis, likely due to sicle cell crisis DISCHARGE MEDICATIONS: See Medication Reconciliation list. DISCHARGE INSTRUCTIONS: Patient was discharged home. Follow-up with fluid power mechanic in 1 week I have been assigned to dictate discharge summary for this account. I was not involved in the patient's management. Giovanna Montalvo NP Aug 01, 2019 10:37
== END 2019-07-31 17:20 | disposition home or self-care (01) | DRG 662 ==
LOC: EMR 11:08 → 3E 12:38 → EDBEDREQ 15:46
DX: D57.419 Sickle-cell thalassemia, unspecified, with crisis (principal); M87.9 Osteonecrosis, unspecified; J45.909 Unspecified asthma, uncomplicated; D72.828 Other elevated white blood cell count
CPT/HCPCS: 36415; 71045; 71250; 80048; 80053; 80202; 82248; 84484; 85007; 85025; 85044; 86850; 86900; 86901; 87040; 93005; 94664; 96361; 96374; 96375; 96376; 99285; J2405; J7030

== ENCOUNTER 2020-08-21 16:52 | Inpatient (IN) | payer MEDICAID ==
[~2020-08-21] VITALS: Ht 162.6 cm; Wt 115.7 kg
[2020-08-21 16:58] VITALS: BP 156/80
--- NOTE | 2020-08-21 16:58 | NUR ---
ED Nurse Note: Pt walked in to ED from home c/o generalized bodyache due to sickle cell crisis x4 days. Pt also c/o right side chest pain, non radiating onset today. Pt has portacath on right upper chest patent and kempt. AAOx4, verbally responsive. No SOB, on room air. Pt placed on sql ssis developer. ERMD at bedside.
[2020-08-21] MEDS ORDERED: HYDROmorphone 1mg/ml Carpuject IVP ONE ×3 (17:15→18:45)
--- NOTE | 2020-08-21 17:41 | NUR ---
ED Nurse Note: Blood and urine sent to lab.
[2020-08-21 18:00] LABS: HEMATOCRIT 33.5 % (42.0-52.0); HEMOGLOBIN 10.3 G/DL (14.2-18.0); MEAN CORPUSCULAR VOLUME 78 FL (80-99); PLATELET COUNT 635 K/UL (150-450); RED BLOOD COUNT 4.32 M/UL (4.70-6.10); RED CELL DISTRIBUTION WIDTH 18.7 % (11.6-14.8); WHITE BLOOD COUNT 17.2 K/UL (4.8-10.8)
[2020-08-21 18:07] LABS: ANION GAP 9 mmol/L (5-15); BLOOD UREA NITROGEN 5 mg/dL (7-18); CALCIUM 9.4 MG/DL (8.5-10.1); CARBON DIOXIDE 25 MMOL/L (21-32); CHLORIDE 104 MMOL/L (98-107); CREATININE 0.5 MG/DL (0.55-1.30); POTASSIUM 3.8 MMOL/L (3.5-5.1); SODIUM 138 MMOL/L (136-145)
[2020-08-21 18:17] LABS: ALANINE AMINOTRANSFERASE 53 U/L (12-78); ALBUMIN 3.9 G/DL (3.4-5.0); ALBUMIN/GLOBULIN RATIO 0.9 (1.0-2.7); ALKALINE PHOSPHATASE 139 U/L (46-116); ASPARTATE AMINO TRANSFERASE 48 U/L (15-37); BILIRUBIN,TOTAL 1.5 MG/DL (0.2-1.0)
[2020-08-21 18:20] LABS: BILIRUBIN,DIRECT 0.4 MG/DL (0.0-0.3)
--- NOTE | 2020-08-21 18:35 | Emergency Room Report ---
History of Present Illness General Chief Complaint: Pain Source: Patient Present Illness HPI 24-year-old male history of sickle cell disease presents with chest tightness, started over the past few days, acutely worsened this morning no aggravating relieving factors severity is moderate, constant patient has been taking his pain medication at home was evaluated at [facility] yesterday given pain medications rehydrated and discharged patient denies any shortness of breath fever/chills patient with a positive Covid test a few months ago Allergies: Coded Allergies: CAPSAICIN (Verified Allergy, Unknown, 11/23/18) CEFTRIAXONE (Verified Allergy, Unknown, 11/23/18) IOPAMIDOL (Unverified Allergy, Unknown, 01/01/19) Uncoded Allergies: IV CONTRAST (Allergy, Unknown, 01/01/19) CONTRAST (Adverse Reaction, Severe, Rash, 06/23/16) RADIOCONTRAST - RASH, ITCHING COVID-19 Screening Contact w/high risk pt: No Experienced COVID-19 symptoms?: No COVID-19 Testing performed GERIATRIC AIDE: No Patient History Past Medical History: see triage record Reviewed Nursing Documentation: PMH: Agreed; PSxH: Agreed Nursing Documentation-PMH Past Medical History: No History, Except For Hx Pacemaker: No Hx Asthma: Yes Hx COPD: No Hx Diabetes: No Hx Cancer: No Hx Gastrointestinal Problems: No Hx Dialysis: No Hx Neurological Problems: No Hx Cerebrovascular Accident: No Hx Seizures: No Review of Systems All Other Systems: negative except mentioned in HPI Physical Exam Vital Signs Date Time Temp Pulse Resp B/P (MAP) Pulse Ox O2 Delivery O2 Flow Rate FiO2 08/21/20 16:56 99.5 89 16 156/80 (105) 95 Room Air Sp02 EP Interpretation: reviewed, normal General Appearance: well appearing, no apparent distress, alert, mild distress Head: normocephalic, atraumatic Eyes: bilateral eye PERRL, bilateral eye EOMI ENT: uvula midline, moist mucus membranes Neck: supple, thyroid normal, supple/symm/no masses Respiratory: lungs clear, no respiratory distress, no retraction, no accessory muscle use Cardiovascular #1: normal peripheral pulses, regular rate, rhythm, no edema, no gallop, no murmur Gastrointestinal: non tender, soft, no guarding, no rebound Musculoskeletal: normal inspection Neurologic: alert, oriented x3 Psychiatric: mood/affect normal Skin: no rash, warm/dry Medical Decision Making Diagnostic Impression: Primary Impression: Sickle cell crisis ER Course 24-year-old male presents with chest tightness, sickle cell pain, patient resuscitated with 1 L fluids, patient given 2 mg of hydromorphone patient admitted to Dr. Bearden ddx includes acs, acute chest syndrome. Patient admitted for sickle cell crisis Laboratory Tests Test 08/21/20 17:41 White Blood Count 17.2 K/UL (4.8-10.8) H Red Blood Count 4.32 M/UL (4.70-6.10) L Hemoglobin 10.3 G/DL (14.2-18.0) L Hematocrit 33.5 % (42.0-52.0) L Mean Corpuscular Volume 78 FL (80-99) L Mean Corpuscular Hemoglobin 23.9 PG (27.0-31.0) L Mean Corpuscular Hemoglobin Concent 30.8 G/DL (32.0-36.0) L Red Cell Distribution Width 18.7 % (11.6-14.8) H Platelet Count 635 K/UL (150-450) H Mean Platelet Volume 6.9 FL (6.5-10.1) Neutrophils (%) (Auto) % (45.0-75.0) Lymphocytes (%) (Auto) % (20.0-45.0) Monocytes (%) (Auto) % (1.0-10.0) Eosinophils (%) (Auto) % (0.0-3.0) Basophils (%) (Auto) % (0.0-2.0) Neutrophils % (Manual) Pending Lymphocytes % (Manual) Pending Platelet Estimate Pending Platelet Morphology Pending Reticulocyte Count Pending Sodium Level 138 MMOL/L (136-145) Potassium Level 3.8 MMOL/L (3.5-5.1) Chloride Level 104 MMOL/L (98-107) Carbon Dioxide Level 25 MMOL/L (21-32) Anion Gap 9 mmol/L (5-15) Blood Urea Nitrogen 5 mg/dL (7-18) L Creatinine 0.5 MG/DL (0.55-1.30) L Estimated Glomerular Filtration Rate > 60 mL/min (>60) Glucose Level 127 MG/DL (74-106) H Calcium Level 9.4 MG/DL (8.5-10.1) Total Bilirubin 1.5 MG/DL (0.2-1.0) H Direct Bilirubin 0.4 MG/DL (0.0-0.3) H Aspartate Amino Transferase (AST) 48 U/L (15-37) H Alanine Aminotransferase (ALT) 53 U/L (12-78) Alkaline Phosphatase 139 U/L (46-116) H Troponin I 0.001 ng/mL (0.000-0.056) Total Protein 8.3 G/DL (6.4-8.2) H Albumin 3.9 G/DL (3.4-5.0) Globulin 4.4 g/dL Albumin/Globulin Ratio 0.9 (1.0-2.7) L EKG Diagnostic Results Troponin ordered: Yes When was troponin ordered?: Aug 21, 2020 EKG Time: 17:29 EP Interpretation: NSR, rate 90, QTc 450, no acute ST elevations, normal axis Rhythm Strip Diag. Results Rhythm Strip Time: 18:33 EP Interpretation: yes Rate: 96 Rhythm: NSR, no PVC's, no ectopy Chest X-Ray Diagnostic Results Chest X-Ray Diagnostic Results : Chest X-Ray Ordered: Yes # of Views/Limited/Complete: 1 View Indication: Chest Pain EP Interpretation: Yes Interpretation: no consolidation, no effusion, no pneumothorax, no acute cardiopulmonary disease Impression: No acute disease Electronically Signed by: Good Galarza MD Last Vital Signs Date Time Temp Pulse Resp B/P (MAP) Pulse Ox O2 Delivery O2 Flow Rate FiO2 08/21/20 16:58 99.5 89 16 156/80 95 Room Air Disposition: ADMITTED INPATIENT Condition: Serious Referrals: NON PHYSICIAN (PCP) Good Galarza MD Aug 21, 2020 18:35
--- NOTE | 2020-08-21 19:11 | NUR ---
HAND-OFF: Report given to Kristi SORENSEN.
[2020-08-21] MEDS ORDERED: ELIQUIS5 MG ORAL (20:06)
--- NOTE | 2020-08-21 20:21 | NUR ---
TRANSFER TO FLOOR: Patient transferred to [facility] as ordered, per farhad . Report given Tisha Cobb. All Belongings sent with the pt. RN took the pt in stable condition.
--- NOTE | 2020-08-21 20:40 | NUR ---
NURSE NOTES: received patient per fady accompanied by javi boswell. patient is alert and oriented x4, ambulatory. with right upper chest port a cath connected to NS. denies any pain or discomfort at the moment. history provided by the patient. bottle of eliquis brought from home and sent to the pharmacy # [id number]. no skin issues. all belongings on the bedside. oriented to the room set- up. urinal provided. reiterated to call and ask for assistance to prevent fall or injury. bed locked and in lowest position. call light and light button within easy reach. will continue plan of care
--- NOTE | 2020-08-21 21:00 | NUR ---
NURSE NOTES: paged dr. llamas for admission orders, awaiting for call back.
--- NOTE | 2020-08-21 21:06 | History & Physical ---
History and Physical History & Physicial Jersey Bearden MD Aug 21, 2020 21:06
[2020-08-21] MEDS ORDERED: HYDROmorphone 1mg/ml Carpuject IVP PRN (21:15)
--- NOTE | 2020-08-21 21:30 | NUR ---
NURSE NOTES: received admission orders. noted and carried out. charge nurse made aware
[2020-08-21] MEDS: D5 1/2NS w/KCl 20mEq 1,000 ML IV SCH (21:55)
[2020-08-21] MEDS: DiphenhydrAMINE 50mg/ml Inj IVP PRN (21:55)
[2020-08-21] MEDS ORDERED: Albuterol 90mcg Inhaler 8gm INH PRN (22:45)
[2020-08-22] VITALS: BP 126/76
[2020-08-22] MEDS: DiphenhydrAMINE 50mg/ml Inj IVP PRN ×7 (01:01→14:28)
[2020-08-22 04:00] VITALS: BP 121/72
--- NOTE | 2020-08-22 06:15 | NUR ---
NURSE HAND-OFF: Important Events on Shift: admission; pain mngt Patient Status: stable Diet: regular Pending Orders: Pending Results/Labs: Pending MD notification: Latest Vital Signs: Temperature 97.6 , Pulse 76 , B/P 121 /72 , Respiratory Rate 18 , O2 SAT 97 , Room Air, O2 Flow Rate . Vital Sign Comment: Latest Jean Fall Score: 35 Fall Risk: Medium Risk Safety Measures: Call light Within Reach, Bed Alarm Zone 1, Side Rails Side Rails x2, Bed position Low and Locked. Fall Precautions: Patient Fall Education Addendum: 08/22/20 at 0719 by Jackie Clarke RN HAND-OFF: Report given to javi govea.
[2020-08-22 07:47] VITALS: BP 136/79
[2020-08-22] MEDS: D5 1/2NS w/KCl 20mEq 1,000 ML IV SCH (07:53)
[2020-08-22 08:38] LABS: HEMATOCRIT 29.6 % (42.0-52.0); HEMOGLOBIN 9.5 G/DL (14.2-18.0); MEAN CORPUSCULAR VOLUME 76 FL (80-99); PLATELET COUNT 537 K/UL (150-450); RED BLOOD COUNT 3.91 M/UL (4.70-6.10); RED CELL DISTRIBUTION WIDTH 18.3 % (11.6-14.8); WHITE BLOOD COUNT 12.3 K/UL (4.8-10.8)
[2020-08-22] MEDS ORDERED: Zinc Sulfate 220mg ORAL SCH (09:00)
[2020-08-22] MEDS ORDERED: Ascorbic Acid 500mg tab ORAL SCH (09:00)
[2020-08-22] MEDS ORDERED: Vitamin D 1000 units Tab ORAL SCH (09:00)
[2020-08-22] MEDS ORDERED: Eliquis 5mg tablet ORAL SCH (09:00)
[2020-08-22 09:06] LABS: ALANINE AMINOTRANSFERASE 43 U/L (12-78); ALBUMIN 3.4 G/DL (3.4-5.0); ALBUMIN/GLOBULIN RATIO 0.9 (1.0-2.7); ALKALINE PHOSPHATASE 118 U/L (46-116); ANION GAP 8 mmol/L (5-15); ASPARTATE AMINO TRANSFERASE 42 U/L (15-37); BILIRUBIN,DIRECT 0.5 MG/DL (0.0-0.3); BILIRUBIN,TOTAL 1.4 MG/DL (0.2-1.0); BLOOD UREA NITROGEN 4 mg/dL (7-18); CALCIUM 9.1 MG/DL (8.5-10.1); CARBON DIOXIDE 26 MMOL/L (21-32); CHLORIDE 105 MMOL/L (98-107); CREATININE 0.6 MG/DL (0.55-1.30); POTASSIUM 3.8 MMOL/L (3.5-5.1); SODIUM 139 MMOL/L (136-145)
--- NOTE | 2020-08-22 10:15 | History and Physical Report ---
DATE OF ADMISSION: 08/21/2020 CHIEF COMPLAINT: Chest pain. HISTORY OF PRESENT ILLNESS: This is a 24-year-old gentleman with past medical history significant for sickle cell disease with frequent sickle cell crisis as well as history of recent COVID-19 pneumonia during [place]. Presently, the patient's COVID recovered, who presented to the emergency department complaining about chest tightness and extremity pain. The patient stated that since morning, his pain had gotten progressively worsening. He has been taking his pain medications at home, evaluated at [facility] yesterday, given pain medication and rehydration, and discharged. Denies any shortness of breath, fever, chills, nausea, or vomiting. Shortly after initial evaluation in the emergency department, the patient was admitted to the hospital with acute sickle cell crisis with anemia. PAST MEDICAL HISTORY/PAST SURGICAL HISTORY: Significant for asthma, sickle cell disease, and morbid obesity. MEDICATIONS AT HOME: Please refer to medication reconciliation. ALLERGIES: Capsaicin, ceftriaxone, IV contrast, iopamidol. SOCIAL HISTORY: The patient denies any smoking, alcohol, or IV drugs. FAMILY HISTORY: Noncontributory. REVIEW OF SYSTEMS: Mostly as above. Denies any dysuria, frequency, or hematuria. Denies any hemoptysis or hematochezia. Denies any bright red blood per rectum. PHYSICAL EXAMINATION: VITAL SIGNS: On admission, temperature 99.5, pulse of 89, respirations 16, and blood pressure 156/80. GENERAL: The patient is awake, responsive, and in no acute distress. HEAD AND NECK: Pupils equal and reactive to light. Extraocular movements intact. Neck was supple. No JVD. LUNGS: Good air entry. No wheezing or rales. HEART: S1, S2. Regular rhythm. No murmur or gallops. ABDOMEN: Morbid obesity. EXTREMITIES: No cyanosis, clubbing, or edema. NEUROLOGIC: Cranial nerves II through XII grossly intact. Motor is 5/5 in all extremities. Gait was intact. RECTAL: Refused and deferred. GENITOURINARY: Refused and deferred. PSYCHIATRIC: Mood and affect is intact. LABORATORY DATA: On admission from the emergency department, WBC of 17, hemoglobin of 10, hematocrit 33, and platelet is 635,000. Sodium 138, potassium 3.8, chloride 104, bicarb is 25, BUN is 5, creatinine 0.5, GFR is greater than 60, glucose is 127, calcium is 9.4. Total bilirubin 1.5, direct bilirubin of 0.4, AST of 48, ALT of 58, alkaline phosphatase 139. Troponin 0.001. The patient had COVID-19 test and is positive. ASSESSMENT: 1. Acute sickle cell crisis with chest pain. 2. Anemia, most likely secondary to sickle cell crisis. 3. Morbid obesity. 4. COVID, recovering. PLAN: Admit the patient to medical floor. We will start the patient on IV hydration. Monitor laboratory. Pain control. Code status is full code. DVT prophylaxis, on Lovenox. We will follow up with Dr. Ronald Low consultation from Pulmonary/Critical Care and Dr. Kerline Davenport for Hematology/Oncology. Jersey Bearden M.D. DR: Juma JOB#: [id number] CC:
--- NOTE | 2020-08-22 10:32 | Consultation ---
History of Present Illness General Date patient seen: Aug 22, 2020 Time patient seen: 10:28 Chief Complaint: Pain Referring physician: Dr. Bearden Reason for Consultation: COVID+ Present Illness HPI 24yo M w/ SCD who p/w chest tightness x a few days, COVID pos for which ID is consulted. Reports positive COVID test last Nov after Thanksgiving, was sick at the time and course was c/b PE and LLE DVT, now on apixaban for AC. In house has been AF, HDS on RA. Leukocytosis improving off abx with pain control and IVF. Reports he came in because of chest pain/tightness worsening over the past few days, but today it is much better and feels ready to go home No fevers/chills, NVD, other pain or infectious sx. No dysuria. Doing well otherwise. Allergies: Coded Allergies: CAPSAICIN (Verified Allergy, Unknown, 11/23/18) CEFTRIAXONE (Verified Allergy, Unknown, 11/23/18) IOPAMIDOL (Unverified Allergy, Unknown, 01/01/19) Uncoded Allergies: IV CONTRAST (Allergy, Unknown, 01/01/19) CONTRAST (Adverse Reaction, Severe, Rash, 06/23/16) RADIOCONTRAST - RASH, ITCHING Medication History Scheduled Apixaban (Eliquis*), 5 MG ORAL BID, (Reported) Scheduled PRN Albuterol Sulfate* (Albuterol Sulfate Mdi*), 2 PUFF INH Q4-8HR PRN for Shortness of Breath, (Reported) Discontinued Medications Aspirin* (Aspirin*), 81 MG ORAL DAILY, (Reported) Discontinued Reason: MD discontinued med Folic Acid* (Folic Acid*), 1 MG ORAL DAILY, (Reported) Discontinued Reason: MD discontinued med Hydromorphone Hcl (Hydromorphone Hcl), 2 TAB ORAL Q3-6HRS PRN for Severe Pain (Pain Scale 7-10), (Reported) Discontinued Reason: discontinued med Hydroxyurea (Hydroxyurea), 3 CAP PO DAILY, (Reported) Discontinued Reason: MD discontinued med Oxycodone Hcl Er* (Oxycontin*), 20 MG ORAL EVERY 12 HOURS, (Reported) Discontinued Reason: MD discontinued med Patient History Healthcare decision maker N Resuscitation status Advanced Directive on File Review of Systems ROS Narrative 10-point neg except as noted in HPI Physical Exam Physical Exam Narrative Gen: NAD HEENT: NCAT Pulm: BL chest rise Abd: Soft, NTND Ext: No c/c/e Neuro: Awake, alert, interactive Last 24 Hour Vital Signs Date Time Temp Pulse Resp B/P (MAP) Pulse Ox O2 Delivery O2 Flow Rate FiO2 08/22/20 08:00 Room Air 08/22/20 07:47 98.8 78 18 136/79 (98) 97 08/22/20 04:51 97.6 08/22/20 04:00 97.6 76 18 121/72 (88) 97 08/22/20 01:31 98.4 08/22/20 00:00 98.4 75 18 126/76 (93) 96 08/21/20 23:10 Room Air 08/21/20 22:26 99.5 08/21/20 20:20 99.5 89 16 156/80 95 Room Air 08/21/20 16:58 99.5 89 16 156/80 95 Room Air 08/21/20 16:56 99.5 89 16 156/80 (105) 95 Room Air Intake and Output 08/21/20 08/22/20 19:00 07:00 Intake Total 550 ml Balance 550 ml Intake Oral 550 ml # Voids 4 Laboratory Tests Test 08/21/20 17:41 08/22/20 07:46 White Blood Count 17.2 K/UL (4.8-10.8) H 12.3 K/UL (4.8-10.8) H Corrected White Blood Count 12.0 K/UL Red Blood Count 4.32 M/UL (4.70-6.10) L 3.91 M/UL (4.70-6.10) L Hemoglobin 10.3 G/DL (14.2-18.0) L 9.5 G/DL (14.2-18.0) L Hematocrit 33.5 % (42.0-52.0) L 29.6 % (42.0-52.0) L Mean Corpuscular Volume 78 FL (80-99) L 76 FL (80-99) L Mean Corpuscular Hemoglobin 23.9 PG (27.0-31.0) L 24.2 PG (27.0-31.0) L Mean Corpuscular Hemoglobin Concent 30.8 G/DL (32.0-36.0) L 32.0 G/DL (32.0-36.0) Red Cell Distribution Width 18.7 % (11.6-14.8) H 18.3 % (11.6-14.8) H Platelet Count 635 K/UL (150-450) H 537 K/UL (150-450) H Mean Platelet Volume 6.9 FL (6.5-10.1) 7.8 FL (6.5-10.1) Neutrophils (%) (Auto) % (45.0-75.0) % (45.0-75.0) Lymphocytes (%) (Auto) % (20.0-45.0) % (20.0-45.0) Monocytes (%) (Auto) % (1.0-10.0) % (1.0-10.0) Eosinophils (%) (Auto) % (0.0-3.0) % (0.0-3.0) Basophils (%) (Auto) % (0.0-2.0) % (0.0-2.0) Differential Total Cells Counted 100 100 Neutrophils % (Manual) 71 % (45-75) 37 % (45-75) L Lymphocytes % (Manual) 14 % (20-45) L 46 % (20-45) H Monocytes % (Manual) 13 % (1-10) H 14 % (1-10) H Eosinophils % (Manual) 0 % (0-3) 3 % (0-3) Basophils % (Manual) 1 % (0-2) 0 % (0-2) Band Neutrophils 1 % (0-8) 0 % (0-8) Nucleated Red Blood Cells 50 /100 WBC 24 /100 WBC Platelet Estimate Increased H Increased H Platelet Morphology Normal Giant Platelets Occasional Polychromasia 2+ 2+ Hypochromasia 3+ 2+ Poikilocytosis 1+ Basophilic Stippling 1+ Anisocytosis 2+ 2+ Target Cells 3+ Reticulocyte Count 6.6 % (0.5-2.0) H Sodium Level 138 MMOL/L (136-145) 139 MMOL/L (136-145) Potassium Level 3.8 MMOL/L (3.5-5.1) 3.8 MMOL/L (3.5-5.1) Chloride Level 104 MMOL/L (98-107) 105 MMOL/L (98-107) Carbon Dioxide Level 25 MMOL/L (21-32) 26 MMOL/L (21-32) Anion Gap 9 mmol/L (5-15) 8 mmol/L (5-15) Blood Urea Nitrogen 5 mg/dL (7-18) L 4 mg/dL (7-18) L Creatinine 0.5 MG/DL (0.55-1.30) L 0.6 MG/DL (0.55-1.30) Estimat Glomerular Filtration Rate > 60 mL/min (>60) > 60 mL/min (>60) Glucose Level 127 MG/DL (74-106) H 101 MG/DL (74-106) Calcium Level 9.4 MG/DL (8.5-10.1) 9.1 MG/DL (8.5-10.1) Total Bilirubin 1.5 MG/DL (0.2-1.0) H 1.4 MG/DL (0.2-1.0) H Direct Bilirubin 0.4 MG/DL (0.0-0.3) H 0.5 MG/DL (0.0-0.3) H Aspartate Amino Transf (AST/SGOT) 48 U/L (15-37) H 42 U/L (15-37) H Alanine Aminotransferase (ALT/SGPT) 53 U/L (12-78) 43 U/L (12-78) Alkaline Phosphatase 139 U/L (46-116) H 118 U/L (46-116) H Troponin I 0.001 ng/mL (0.000-0.056) Total Protein 8.3 G/DL (6.4-8.2) H 7.4 G/DL (6.4-8.2) Albumin 3.9 G/DL (3.4-5.0) 3.4 G/DL (3.4-5.0) Globulin 4.4 g/dL 4.0 g/dL Albumin/Globulin Ratio 0.9 (1.0-2.7) L 0.9 (1.0-2.7) L Microcytosis 1+ D-Dimer 5.08 mg/L FEU (0.00-0.49) H Phosphorus Level 4.0 MG/DL (2.5-4.9) Magnesium Level 1.8 MG/DL (1.8-2.4) C-Reactive Protein, Quantitative 0.9 mg/dL (0.00-0.90) Microbiology Date/Time Source Procedure Growth Status 08/21/20 18:10 Nasopharynx SARS-CoV-2 RdRp Gene Assay - Final Complete Height (Feet): 5 Height (Inches): 4.00 Weight (Pounds): 255 Medications Current Medications Medications (Trade) Dose Ordered Sig/Arianne Route PRN Reason Start Time Stop Time Status Last Admin Dose Admin Acetaminophen (Tylenol) 650 mg Q4H PRN ORAL Mild Pain (Pain Scale 1-3) 08/21/20 22:30 09/20/20 22:29 Acetaminophen (Tylenol) 650 mg Q4H PRN ORAL Temp >100.5 08/21/20 22:30 09/20/20 22:29 Albuterol Sulfate (Proventil MDI) 2 puff EVERY 4 HOURS PRN INH Shortness of Breath 08/21/20 22:45 11/19/20 22:44 Apixaban (Eliquis) 5 mg BID ORAL 08/22/20 09:00 11/20/20 08:59 08/22/20 08:41 Ascorbic Acid (Vitamin C) 1,000 mg TWICE A DAY ORAL 08/22/20 09:00 09/21/20 08:59 08/22/20 08:41 Dextrose/ Electrolytes 1,000 ml @ 100 mls/hr Q10H IV 08/21/20 23:00 09/20/20 22:59 08/22/20 07:53 Diphenhydramine HCl (Benadryl) 25 mg Q3H PRN IVP Itching 08/21/20 21:30 09/20/20 21:29 08/22/20 07:49 Famotidine (Pepcid) 40 mg DAILY ORAL 08/22/20 09:00 11/20/20 08:59 08/22/20 08:41 Hydromorphone HCl (Dilaudid) 1 mg Q3H PRN IVP Moderate Breakthru Pain (5-7) 08/21/20 21:15 08/28/20 21:14 Hydromorphone HCl (Dilaudid) 2 mg Q3H PRN IVP Severe Pain (Pain Scale 7-10) 08/21/20 21:15 08/28/20 21:14 08/22/20 07:48 Vitamin D (Vitamin D) 2,000 unit DAILY ORAL 08/22/20 09:00 09/21/20 08:59 08/22/20 08:41 Zinc Sulfate (Zinc Sulfate) 220 mg DAILY ORAL 08/22/20 09:00 11/20/20 08:59 08/22/20 08:41 Assessment/Plan Assessment/Plan: 24yo M with: COVID positive Afebrile Satting well on RA Leukocytosis, improving Elevated AST to 42 COVID pos end of Jun 2020 - course c/b LLE DVT and PE, now on apixaban for AC 08/21 COVID rapid positive CXR read p Sickle cell disease Chest pain Pain crisis Plan: Monitor off abx and steroids given doing well on RA, no clear source of bacterial infection No indication for RDV nor plasma given doing well on RA, and tested positive prior OK to d/c from ID standpoint given pain improved and no clear s/sx of infection, COVID + test just represents shedding from prior infection ~1.5 months ago Trend WBC off abx - improving Monitor CBC/CMP Monitor resp status Monitor temp curve, hemodynamics D/w RN Thank you for this consult. [facility] will continue to follow. Crystal Winchester M.D. Aug 22, 2020 10:32
[2020-08-22 12:04] VITALS: BP 130/72
--- NOTE | 2020-08-22 14:49 | Diagnostic Imaging Report ---
Indication: Chest pain Technique: One view of the chest Comparison: 07/25/2019 Findings: Right chest port catheter again demonstrated. No definite acute infiltrates, effusions, or congestion. Heart size is normal. Impression: No acute process
--- NOTE | 2020-08-22 14:59 | NUR ---
CASE MANAGEMENT:INITIAL REVIEW 24 YR OLD MALE WALKED IN TO ED FROM HOME CC;PAIN SI;SICKLE CELL CRISIS. COVID-19 VIRAL INFECTION. 99.5 89 18 156/80 95% ON RA WBC+ 17.2 H/H- 10.3/33.5 PLT+ 635 RETIC COUNT 6.6 GLU+ 127 T-BILI+ 1.5 D-BILI- 0.4 AST+ 48 ALP+ 139 D-DIMER+ 5.08 COVID RAPID ~ POSITIVE CXR ~ NO ACUTE PROCESS IS;DILAUDID IV X3 IVF NS BOLUS ADMITTED TO MED SURG MED SURG STATUS DCP;FROM HOME
[2020-08-22 16:00] VITALS: BP 128/62
--- NOTE | 2020-08-22 16:01 | NUR ---
NURSE NOTES 1520 patient called stated '' I want to go home,pls paged my doctor, Paged Dr German with order noted discharge to home continue home meds as ordered, patient aware for the plan of care 1600 discharge instruction packet handed to patient , discharge instruction teaching done all questions answered verbalized javi kulkarni
--- NOTE | 2020-08-22 16:03 | Internal Med Progress Note ---
Subjective Physician Name Jersey Bearden Attending Physician Jersey Bearden MD Current Medications Medications (Trade) Dose Ordered Sig/Arianne Route PRN Reason Start Time Stop Time Status Last Admin Dose Admin Acetaminophen (Tylenol) 650 mg Q4H PRN ORAL Mild Pain (Pain Scale 1-3) 08/21/20 22:30 09/20/20 22:29 Acetaminophen (Tylenol) 650 mg Q4H PRN ORAL Temp >100.5 08/21/20 22:30 09/20/20 22:29 Albuterol Sulfate (Proventil MDKenny) 2 puff EVERY 4 HOURS PRN INH Shortness of Breath 08/21/20 22:45 11/19/20 22:44 Apixaban (Eliquis) 5 mg BID ORAL 08/22/20 09:00 11/20/20 08:59 08/22/20 08:41 Ascorbic Acid (Vitamin C) 1,000 mg TWICE A DAY ORAL 08/22/20 09:00 09/21/20 08:59 08/22/20 08:41 Dextrose/ Electrolytes 1,000 ml @ 100 mls/hr Q10H IV 08/21/20 23:00 09/20/20 22:59 08/22/20 07:53 Diphenhydramine HCl (Benadryl) 25 mg Q3H PRN IVP Itching 08/21/20 21:30 09/20/20 21:29 08/22/20 14:28 Famotidine (Pepcid) 40 mg DAILY ORAL 08/22/20 09:00 11/20/20 08:59 08/22/20 08:41 Hydromorphone HCl (Dilaudid) 1 mg Q3H PRN IVP Moderate Breakthru Pain (5-7) 08/21/20 21:15 08/28/20 21:14 Hydromorphone HCl (Dilaudid) 2 mg Q3H PRN IVP Severe Pain (Pain Scale 7-10) 08/21/20 21:15 08/28/20 21:14 08/22/20 14:32 Vitamin D (Vitamin D) 2,000 unit DAILY ORAL 08/22/20 09:00 09/21/20 08:59 08/22/20 08:41 Zinc Sulfate (Zinc Sulfate) 220 mg DAILY ORAL 08/22/20 09:00 11/20/20 08:59 08/22/20 08:41 Allergies: Coded Allergies: CAPSAICIN (Verified Allergy, Unknown, 11/23/18) CEFTRIAXONE (Verified Allergy, Unknown, 11/23/18) IOPAMIDOL (Unverified Allergy, Unknown, 01/01/19) Uncoded Allergies: IV CONTRAST (Allergy, Unknown, 01/01/19) CONTRAST (Adverse Reaction, Severe, Rash, 06/23/16) RADIOCONTRAST - RASH, ITCHING Subjective awake, alert, responsive, no acute distress, denies any chest pain or shortness of breath. Hemoglobin: 9.5 Objective Last Vital Signs Date Time Temp Pulse Resp B/P (MAP) Pulse Ox O2 Delivery O2 Flow Rate FiO2 08/22/20 12:04 98.5 72 18 130/72 (91) 97 08/22/20 08:00 Room Air Laboratory Tests Test 08/21/20 17:41 08/22/20 07:46 White Blood Count 17.2 K/UL (4.8-10.8) H 12.3 K/UL (4.8-10.8) H Corrected White Blood Count 12.0 K/UL Red Blood Count 4.32 M/UL (4.70-6.10) L 3.91 M/UL (4.70-6.10) L Hemoglobin 10.3 G/DL (14.2-18.0) L 9.5 G/DL (14.2-18.0) L Hematocrit 33.5 % (42.0-52.0) L 29.6 % (42.0-52.0) L Mean Corpuscular Volume 78 FL (80-99) L 76 FL (80-99) L Mean Corpuscular Hemoglobin 23.9 PG (27.0-31.0) L 24.2 PG (27.0-31.0) L Mean Corpuscular Hemoglobin Concent 30.8 G/DL (32.0-36.0) L 32.0 G/DL (32.0-36.0) Red Cell Distribution Width 18.7 % (11.6-14.8) H 18.3 % (11.6-14.8) H Platelet Count 635 K/UL (150-450) H 537 K/UL (150-450) H Mean Platelet Volume 6.9 FL (6.5-10.1) 7.8 FL (6.5-10.1) Neutrophils (%) (Auto) % (45.0-75.0) % (45.0-75.0) Lymphocytes (%) (Auto) % (20.0-45.0) % (20.0-45.0) Monocytes (%) (Auto) % (1.0-10.0) % (1.0-10.0) Eosinophils (%) (Auto) % (0.0-3.0) % (0.0-3.0) Basophils (%) (Auto) % (0.0-2.0) % (0.0-2.0) Differential Total Cells Counted 100 100 Neutrophils % (Manual) 71 % (45-75) 37 % (45-75) L Lymphocytes % (Manual) 14 % (20-45) L 46 % (20-45) H Monocytes % (Manual) 13 % (1-10) H 14 % (1-10) H Eosinophils % (Manual) 0 % (0-3) 3 % (0-3) Basophils % (Manual) 1 % (0-2) 0 % (0-2) Band Neutrophils 1 % (0-8) 0 % (0-8) Nucleated Red Blood Cells 50 /100 WBC 24 /100 WBC Platelet Estimate Increased H Increased H Platelet Morphology Normal Giant Platelets Occasional Polychromasia 2+ 2+ Hypochromasia 3+ 2+ Poikilocytosis 1+ Basophilic Stippling 1+ Anisocytosis 2+ 2+ Target Cells 3+ Reticulocyte Count 6.6 % (0.5-2.0) H Sodium Level 138 MMOL/L (136-145) 139 MMOL/L (136-145) Potassium Level 3.8 MMOL/L (3.5-5.1) 3.8 MMOL/L (3.5-5.1) Chloride Level 104 MMOL/L (98-107) 105 MMOL/L (98-107) Carbon Dioxide Level 25 MMOL/L (21-32) 26 MMOL/L (21-32) Anion Gap 9 mmol/L (5-15) 8 mmol/L (5-15) Blood Urea Nitrogen 5 mg/dL (7-18) L 4 mg/dL (7-18) L Creatinine 0.5 MG/DL (0.55-1.30) L 0.6 MG/DL (0.55-1.30) Estimat Glomerular Filtration Rate > 60 mL/min (>60) > 60 mL/min (>60) Glucose Level 127 MG/DL (74-106) H 101 MG/DL (74-106) Calcium Level 9.4 MG/DL (8.5-10.1) 9.1 MG/DL (8.5-10.1) Total Bilirubin 1.5 MG/DL (0.2-1.0) H 1.4 MG/DL (0.2-1.0) H Direct Bilirubin 0.4 MG/DL (0.0-0.3) H 0.5 MG/DL (0.0-0.3) H Aspartate Amino Transf (AST/SGOT) 48 U/L (15-37) H 42 U/L (15-37) H Alanine Aminotransferase (ALT/SGPT) 53 U/L (12-78) 43 U/L (12-78) Alkaline Phosphatase 139 U/L (46-116) H 118 U/L (46-116) H Troponin I 0.001 ng/mL (0.000-0.056) Total Protein 8.3 G/DL (6.4-8.2) H 7.4 G/DL (6.4-8.2) Albumin 3.9 G/DL (3.4-5.0) 3.4 G/DL (3.4-5.0) Globulin 4.4 g/dL 4.0 g/dL Albumin/Globulin Ratio 0.9 (1.0-2.7) L 0.9 (1.0-2.7) L Microcytosis 1+ D-Dimer 5.08 mg/L FEU (0.00-0.49) H Phosphorus Level 4.0 MG/DL (2.5-4.9) Magnesium Level 1.8 MG/DL (1.8-2.4) C-Reactive Protein, Quantitative 0.9 mg/dL (0.00-0.90) Microbiology Date/Time Source Procedure Growth Status 08/21/20 18:10 Nasopharynx SARS-CoV-2 RdRp Gene Assay - Final Complete Intake and Output 08/21/20 08/22/20 19:00 07:00 Intake Total 550 ml Balance 550 ml Intake Oral 550 ml # Voids 4 Objective General: No acute distress, awake and alert HEENT: NCAT, sclera anicteric, PERRL, EOMI. Neck: Supple, no significant jugular venous distention, Lungs: Good inspiratory effort, no accessory muscle use, clear to auscultation bilaterally, no Wheeze or Rales. Heart: Regular rate and rhythm, normal S1/S2, no murmurs/gallops Abdomen: soft, nontender, nondistended. Normoactive bowel sounds, Obesity. / Rectal: Refused and deferred. Extremities: No Cyanosis , clubbing or edema. Neuro: A&O x 3, Able to move all extremities Skin: warm, no rashes or lesions Psych: Normal mood and affect Assessment/Plan Assessment/Plan 1. Acute sickle cell crisis with chest pain. 2. Anemia, most likely secondary to sickle cell crisis. 3. Morbid obesity. 4. COVID, recovering. 5. History of DVT and PE. Plan: discharge home today Follow-up with Dr. Davenport in 1 week Continue on Eliquis. Jersey Bearden MD Aug 22, 2020 16:03
--- NOTE | 2020-08-22 16:10 | NUR ---
nurse notes patient with michelet cath , catheter dcd as ordered, no bleeding noted,dressing applied dressing clean dry and intact javi kulkarni
--- NOTE | 2020-08-22 16:19 | NUR ---
nurse notes discharged to home in stable condition , with all belongings taken, discharge via private car javi kulkarni
--- NOTE | 2020-08-24 12:59 | Discharge Summary ---
Discharge Summary Discharge Summary _ Date of admission: 08/21/2020 Date of discharge: 08/22/[address] Bearden History of Present Illness and Brief Hospital Course Mr. Cope is a 24-year-old male with history of asthma, recent diagnosis of COVID-19, and sickle cell disease who presented to the ED for evaluation of chest tightness over few days. He reported his chest pain acutely worsened the morning of arrival without aggravating or relieving factors. Patient was given IV fluids, and hydromorphone and was admitted to the hospital for sickle cell crisis. His initial EKG showed normal sinus rhythm without acute ST elevation. His initial chest x-ray revealed no acute disease. Of note, patient was evaluated at [facility] the day prior, and was given pain medication and rehydration and was discharged. For his COVID-19, he was monitored off of antibiotics and steroids given normoxemia on room air. His WBC was trended which improved by the day of his discharge. He was medically stable for discharge given improved pain level, and no obvious signs and symptoms of infection. The COVID-19 positive test in ER could represent shedding from prior infection about 1.5 months ago. Patient is to follow-up with Dr. Cardoso in 1 week and continue Eliquis upon discharge. Consultants: Infectious disease Dr. Winchester Discharge Condition Improved and stable Final diagnoses COVID-19 positive Leukocytosis Elevated AST Sickle cell crisis Morbid obesity Anemia I have been assigned to dictate discharge summary for this account. I was not involved in the patient's management Hussain Iraheta Aug 24, 2020 12:59
== END 2020-08-22 16:28 | disposition home or self-care (01) | DRG 662 ==
LOC: EMR 17:15 → 4E 18:20 → EDBEDREQ 18:51
DX: D57.00 Hb-SS disease with crisis, unspecified (principal); Z88.8 Allergy status to other drugs, medicaments and biological substances; Z91.041 Radiographic dye allergy status; E66.01 Morbid (severe) obesity due to excess calories; U07.1 COVID-19; Z68.41 Body mass index [BMI] 40.0-44.9, adult; Z79.01 Long term (current) use of anticoagulants; R07.9 Chest pain, unspecified; Z86.718 Personal history of other venous thrombosis and embolism; Z86.711 Personal history of pulmonary embolism
CPT/HCPCS: 36415; 71045; 80053; 82248; 83735; 84100; 84484; 85007; 85025; 85044; 85379; 86140; 86900; 86901; 93005; 96361; 96374; 96376; 99285; J7030; U0002